=== PATIENT | male | born 1965 | race African-American/Black ===

== ENCOUNTER 2017-02-21 13:34 | Inpatient (IN) | payer MEDICARE, MEDICAID ==
[~2017-02-21 13:34] MED LIST: KETOROLAC TROMETHAMINE 60 MG/2 ML SDV ONE; LIDOCAINE 2% INJ-PF (20 MG/ML) 10 ML AMPUL ONE
[2017-02-21] MEDS ORDERED: NORMAL SALINE 1000 ML 1,000 ML IV ONE (14:17)
--- NOTE | 2017-02-21 14:20 | ER Document Report ---
ED Medical Screen (RME) - General Chief Complaint: Skin Problem Stated Complaint: POSSIBLE ABCESS ON BUTTOCKS Time Seen by Provider: 02/21/17 14:17 Mode of Arrival: Wheelchair Information source: Patient Notes: Patient presents complaining of multiple abscesses that are draining to his groin and leg area. Patient states symptoms started around 2 weeks ago. Patient is diabetic and has a history of hidradenitis. Pt is on a lot of high- dose narcotics patient states that he is currently on for chronic pain TRAVEL OUTSIDE OF THE [place] IN LAST 30 DAYS: No - Related Data Allergies/Adverse Reactions: atropine sulfate [From Lomotil] Allergy (Verified 02/21/17 13:49) diphenoxylate HCl [From Lomotil] Allergy (Verified 02/21/17 13:49) erythromycin base [Erythromycin Base] Allergy (Verified 02/21/17 13:49) paroxetine HCl [From Paxil] Allergy (Verified 02/21/17 13:49) sulfamethoxazole [From Bactrim] Allergy (Verified 02/21/17 13:49) trimethoprim [From Bactrim] Allergy (Verified 02/21/17 13:49) Past Medical History - Past Medical History Cardiac Medical History: Reports: Hx Heart Attack - NOVEMBER 2014, Hx Hypertension Denies: Hx Coronary Artery Disease Pulmonary Medical History: Reports: Hx Asthma, Hx Pneumonia Denies: Hx Bronchitis, Hx COPD Neurological Medical History: Reports: Hx Seizures. Denies: Hx Cerebrovascular Accident Endocrine Medical History: Reports: Hx Diabetes Mellitus Type 2 Renal/ Medical History: Denies: Hx Peritoneal Dialysis GI Medical History: Reports: Hx Crohn's Disease Musculoskeltal Medical History: Reports Hx Arthritis Past Surgical History: Reports: Hx Colostomy - Immunizations Hx Diphtheria, Pertussis, Tetanus Vaccination: Yes Physical Exam - Vital signs Vitals: Temp Pulse Resp BP Pulse Ox 99.3 F 127 H 16 100/69 95 02/21/17 13:45 02/21/17 13:45 02/21/17 13:45 02/21/17 13:45 02/21/17 13:45 - Skin Skin Temperature: Warm Skin Moisture: Moist Skin irregularity: Abscess - Spontaneously draining abscess to left posterior thigh Course - Vital Signs Vital signs: Temp Pulse Resp BP Pulse Ox 99.3 F 127 H 16 100/69 95 02/21/17 13:45 02/21/17 13:45 02/21/17 13:45 02/21/17 13:45 02/21/17 13:45
[2017-02-21 15:52] LABS: ABSOLUTE BASOPHILS # (AUTO) 0.1 10^3/uL (0.0-0.2); ABSOLUTE EOSINOPHILS # (AUTO) 0.1 10^3/uL (0.0-0.6); ABSOLUTE LYMPHOCYTES (AUTO) 2.2 10^3/uL (0.5-4.7); ABSOLUTE MONOCYTES (AUTO) 0.9 10^3/uL (0.1-1.4); ABSOLUTE NEUT (AUTO) 13.7 10^3/uL (1.7-8.2); BASOPHILS % (AUTO) 0.8 % (0-2); EOSINOPHILS % (AUTO) 0.4 % (0-6); HEMATOCRIT 41.9 % (37.9-51.0); HEMOGLOBIN 13.6 g/dL (13.5-17.0); HGB HCT DIFFERENCE -1.1; MEAN CORPUSCULAR HEMOGLOBIN 27.9 pg (27.0-33.4); MEAN CORPUSCULAR HGB CONC 32.4 g/dL (32.0-36.0); MEAN CORPUSCULAR VOLUME 86 fl (80-97); MONOCYTES % (AUTO) 5.5 % (3-13); RED BLOOD COUNT 4.88 10^6/uL (4.35-5.55); RED CELL DISTRIBUTION WIDTH 18.4 % (11.5-14.0); SEGMENTED NEUTROPHILS % (AUTO) 80.3 % (42-78); WHITE BLOOD COUNT 17.1 10^3/uL (4.0-10.5)
[2017-02-21 16:04] LABS: PROTHROMBIN TIME 13.4 SEC (11.4-15.4)
[2017-02-21 16:16] LABS: APPEARANCE,URINE SLIGHTLY-CLOUDY; BILIRUBIN,URINE NEGATIVE (NEGATIVE); GLUCOSE, URINE >=500 mg/dL (NEGATIVE); KETONES,URINE NEGATIVE (NEGATIVE); LEUKOCYTE ESTERASE,URINE NEGATIVE (NEGATIVE); NITRITE,URINE NEGATIVE (NEGATIVE); PROTEIN,URINE 30 mg/dL (NEGATIVE); URINE SPECIFIC GRAVITY 1.027; UROBILINOGEN,URINE NEGATIVE mg/dL (<2.0)
--- NOTE | 2017-02-21 16:22 | ER Document Report ---
ED General - General Chief Complaint: Skin Problem Stated Complaint: POSSIBLE ABCESS ON BUTTOCKS Time Seen by Provider: 02/21/17 14:17 Mode of Arrival: Wheelchair Notes: 51-year-old male with a history of severe hidradenitis of vertebral and chronic pain status post colostomy presents with increasing pain and drainage from his groin. For several days but getting worse now. He is very defeated because he is having issues completing his daily activities as well as attending family functions. No recent antibiotics. None of his abscess is been surgically drained in over 20 years. He denies fever chills. He is a diabetic and takes a hefty dose of chronic narcotics. Per triage his blood sugar was elevated there. TRAVEL OUTSIDE OF THE [place] IN LAST 30 DAYS: No - Related Data Allergies/Adverse Reactions: atropine sulfate [From Lomotil] Allergy (Verified 02/21/17 13:49) diphenoxylate HCl [From Lomotil] Allergy (Verified 02/21/17 13:49) erythromycin base [Erythromycin Base] Allergy (Verified 02/21/17 13:49) paroxetine HCl [From Paxil] Allergy (Verified 02/21/17 13:49) sulfamethoxazole [From Bactrim] Allergy (Verified 02/21/17 13:49) trimethoprim [From Bactrim] Allergy (Verified 02/21/17 13:49) Past Medical History - General Information source: Patient - Social History Smoking Status: Current Every Day Smoker Chew tobacco use (# tins/day): - 8 cigarettes per day Frequency of alcohol use: None Drug Abuse: None Family History: Reviewed & Not Pertinent - Past Medical History Cardiac Medical History: Reports: Hx Heart Attack - NOVEMBER 2014, Hx Hypertension Denies: Hx Coronary Artery Disease Pulmonary Medical History: Reports: Hx Asthma, Hx Pneumonia Denies: Hx Bronchitis, Hx COPD Neurological Medical History: Reports: Hx Seizures. Denies: Hx Cerebrovascular Accident Endocrine Medical History: Reports: Hx Diabetes Mellitus Type 2 Renal/ Medical History: Denies: Hx Peritoneal Dialysis GI Medical History: Reports: Hx Crohn's Disease Musculoskeltal Medical History: Reports Hx Arthritis Past Surgical History: Reports: Hx Colostomy - Immunizations Hx Diphtheria, Pertussis, Tetanus Vaccination: Yes Review of Systems - Review of Systems Notes: REVIEW OF SYSTEMS GEN: Denies fever, chills, weight loss ENT: Denies sore throat, nasal discharge, ear pain EYES: Denies blurry vision, eye pain, discharge CV: Denies chest pain, palpitations, edema RESP: Denies cough, shortness of breath, wheezing GI: Denies abdominal pain, nausea, vomiting, diarrhea MSK: Chronic body pain SKIN: Actively draining skin lesions LYMPH: Denies swollen glands/lymph nodes NEURO: Denies headache, focal weakness or numbness, dizziness PSYCH: Denies depression, suicidal or homicidal ideation PHYSICAL EXAMINATION General: No acute distress, well-nourished Head: Atraumatic, normocephalic ENT: Mouth normal, oropharynx moist, no exudates or tonsillar enlargement Eyes: Conjunctiva normal, pupils equal, lids normal Neck: No JVD, supple, no guarding CVS: Normal rate, regular rhythm, no murmurs Resp: No resp distress, equal and normal breath sounds bilaterally GI: Nondistended, soft, no tenderness to palpation, no rebound or guarding Ext: No deformities, no edema, normal range of motion in upper and lower ext Back: No CVA or midline TTP Skin: No rash, warm Lymphatic: No lymphadeopathy noted Neuro: Awake, slightly somnolent. Slow speech but not slurred. Face symmetric. Physical Exam - Vital signs Vitals: Temp Pulse Resp BP Pulse Ox 99.3 F 127 H 16 100/69 95 02/21/17 13:45 02/21/17 13:45 02/21/17 13:45 02/21/17 13:45 02/21/17 13:45 Course - Re-evaluation Re-evalutation: 02/21/17 16:22 51-year-old male with poorly controlled diabetes and hidradenitis of vertebral presents with increasing drainage of his wounds. He has a slight altered mental status which I presume is due to narcotics however may be due to either hyperglycemia or DKA. We will get a full set of labs. 02/21/17 17:15 Patient was reevaluated approximately 4:50 PM. I examined his perineum at that time as he was not addressed prior to this. He has several draining areas in the perianal region with chelo tenderness and pus. Given his hyperglycemia I am concerned for a necrotizing perineal infection such as a perianal abscess ischio rectal fossa abscess fistula or even worse Citlali's gangrene. At 5:15 PM I was approached by the nurse to say that the patient has a blood pressure of 70. I immediately phoned the surgical list conference services director, Dr. Rolon. He recommended antibiotics and resuscitation with hospitalist admission. I then insisted he come to the emergency department to evaluate this patient because of my concern for infection requiring urgent surgical intervention. He agreed to come see the patient. 02/21/17 18:48 Patient is receiving fluids. Has been seen by the surgical list. - Vital Signs Vital signs: Temp Pulse Resp BP Pulse Ox 99.3 F 127 H 13 101/76 92 02/21/17 13:45 02/21/17 13:45 02/21/17 18:31 02/21/17 18:31 02/21/17 18:31 - Laboratory Result Diagrams: 02/21/17 15:37 02/21/17 16:45 Laboratory results interpreted by me: 02/21/17 02/21/17 02/21/17 15:15 15:27 15:37 WBC 17.1 H RDW 18.4 H Plt Count 720 H Seg Neutrophils % 80.3 H Absolute Neutrophils 13.7 H Sodium Chloride Glucose POC Glucose 547 H* Lactic Acid AST ALT Alkaline Phosphatase Urine Protein 30 H Urine Glucose (UA) >=500 H 02/21/17 02/21/17 16:45 16:45 WBC RDW Plt Count Seg Neutrophils % Absolute Neutrophils Sodium 131.4 L Chloride 91 L Glucose 538 H* POC Glucose Lactic Acid 3.2 H AST 8 L ALT 17 L Alkaline Phosphatase 150 H Urine Protein Urine Glucose (UA) Discharge - Discharge Clinical Impression: Sepsis Qualifiers: Sepsis type: sepsis due to unspecified organism Qualified Code(s): A41.9 - Sepsis, unspecified organism Condition: Critical Disposition: ADMITTED INPATIENT Admitting Provider: Hospitalist Unit Admitted: IMCU Referrals: DELROY CROUCH DO [Primary Care Provider] - Follow up as needed
[2017-02-21 16:59] LABS: VENOUS BLOOD BASE EXCESS 3.8 mmol/L; VENOUS BLOOD HCO3 29.9 mmol/L (20-32); VENOUS BLOOD PCO2 50.7 mmHg (35-63); VENOUS BLOOD PH 7.39 (7.30-7.42)
[2017-02-21 17:15] LABS: ALANINE AMINOTRANSFERASE 17 U/L (21-72); ALBUMIN 3.6 g/dL (3.5-5.0); ALKALINE PHOSPHATASE 150 U/L (38-126); ANION GAP 14 (5-19); ASPARTATE AMINO TRANSFERASE 8 U/L (17-59); BILIRUBIN,DIRECT 0.4 mg/dL (0.0-0.4); BILIRUBIN,TOTAL 0.4 mg/dL (0.2-1.3); BLOOD UREA NITROGEN 12 mg/dL (7-20); CALCIUM 9.7 mg/dL (8.4-10.2); CARBON DIOXIDE 26 mmol/L (22-30); CHLORIDE 91 mmol/L (98-107); CREATININE RESULT 0.87 mg/dL (0.52-1.25); POTASSIUM 4.1 mmol/L (3.6-5.0); SODIUM 131.4 mmol/L (137-145); TOTAL PROTEIN 7.3 g/dL (6.3-8.2)
[2017-02-21] MEDS ORDERED: VANCOMYCIN HCL INJ 1000 MG VIAL IV ONE (17:23)
[2017-02-21] MEDS ORDERED: PIPERACILLIN/TAZOBACTAM 3.375 GM VIAL IV ONE (17:23)
[2017-02-21 17:28] LABS: GLUCOSE 538 mg/dL (75-110)
[2017-02-21] MEDS ORDERED: LIDOCAINE 2% URO-JET 5 ML KIT MM ONE (17:44)
[2017-02-21] MEDS ORDERED: ONDANSETRON HCL INJ/PF 4 MG/2 ML SDV IV PRN (17:59)
[2017-02-21] MEDS ORDERED: VANCOMYCIN HCL 0 MG in DEXTROSE 5%-WATER 250 ML IV NR (18:00)
[2017-02-21] MEDS ORDERED: GLUCAGON,HUMAN RECOMB 1 MG INJ IM PRN (18:03)
[2017-02-21] MEDS ORDERED: NORMAL SALINE 100 ML with INSULIN REGULAR, HUMAN 100 UNIT IV PRN ×2 (18:03)
[2017-02-21] MEDS ORDERED: DEXTROSE 40% GEL 15 GM TUBE PO PRN ×2 (18:03)
[2017-02-21] MEDS ORDERED: DEXTROSE 50%-WATER 25 GM/50 ML DISP.SYRIN IV PRN ×2 (18:03)
[2017-02-21] MEDS ORDERED: NORMAL SALINE 1000 ML 1,000 ML IV PRN (18:04)
--- NOTE | 2017-02-21 18:54 | PDOC H&P ---
History of Present Illness Admission Date/PCP: DELROY CROUCH DO Patient complains of: Pelvic pain History of Present Illness: TIA VILLANUEVA is a 51 year old male with past medical history of Crohn's disease and hidradenitis presents with pelvic pain and feeling generally unwell for approximately 1 month. 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 In 2014 he had a diverting colostomy in order to protect the peroneal region. Past Medical History Cardiac Medical History: Reports: Myocardial Infarction - NOVEMBER 2014, Hypertension Denies: Coronary Artery Disease Pulmonary Medical History: Reports: Asthma, Pneumonia Denies: Bronchitis, Chronic Obstructive Pulmonary Disease (COPD) Neurological Medical History: Reports: Seizures Endocrine Medical History: Reports: Diabetes Mellitus Type 2 GI Medical History: Reports: Crohn's Disease Musculoskeltal Medical History: Reports: Arthritis Hematology: Reports: Anemia Past Surgical History Past Surgical History: Reports: Colostomy Social History Information Source: Patient Smoking Status: Current Every Day Smoker Frequency of Alcohol Use: None Hx Recreational Drug Use: No Hx Prescription Drug Abuse: No - Advance Directive Resuscitation Status: Full Code Family History Family History: Other - Crohn's-sister Parental Family History Reviewed: Yes Children Family History Reviewed: Yes Sibling(s) Family History Reviewed.: Yes Medication/Allergy Home Medications: Cephalexin [Cephalexin 500 MG Capsule] 1 cap PO TID 07/08/15 Diazepam [Valium] 10 mg PO TIDP PRN 07/08/15 Duloxetine HCl [Cymbalta] 60 mg PO DAILY 07/08/15 Furosemide [Lasix 20 mg Tablet] 20 mg PO QAM 07/08/15 Insulin Aspart [Novolog Flexpen] 25 unit SUBCUT BID 07/08/15 Lisinopril 5 mg PO DAILY 07/08/15 Metformin HCl [Glucophage] 1,000 mg PO BID 07/08/15 Metoprolol Tartrate [Lopressor 25 mg Tablet] 25 mg PO Q12 07/08/15 Morphine Sulfate [Morphine Sulfate ER] 100 mg PO TID #30 tablet.er 07/08/15 Morphine Sulfate [Ms-Contin Sr 100 mg Tablet] 100 mg PO TID 07/08/15 Ondansetron HCl [Zofran 8 mg Tablet] 8 mg PO Q8HP PRN 07/08/15 Prednisone 20 mg PO BID 07/08/15 Morphine Sulfate [Morphine Sulfate ER] 100 mg PO TID PRN #9 tablet.er 02/03/16 Oxycodone HCl [Oxycodone HCl 10 MG Tablet] 1 - 2 tab PO Q6H PRN #25 tablet 02/02 Diazepam [Valium] 5 mg PO TID 04/27/16 Penicillin V Potassium [Penicillin Vk 500 mg Tablet] 500 mg PO TID 04/27/16 Hydrocodone/Acetaminophen [[place] 10-325 Tablet] 1 each PO Q6 #8 tablet 05/30/16 Allergies/Adverse Reactions: atropine sulfate [From Lomotil] Allergy (Verified 02/21/17 13:49) diphenoxylate HCl [From Lomotil] Allergy (Verified 02/21/17 13:49) erythromycin base [Erythromycin Base] Allergy (Verified 02/21/17 13:49) paroxetine HCl [From Paxil] Allergy (Verified 02/21/17 13:49) sulfamethoxazole [From Bactrim] Allergy (Verified 02/21/17 13:49) trimethoprim [From Bactrim] Allergy (Verified 02/21/17 13:49) Review of Systems Constitutional: PRESENT: chills, fatigue, fever(s), weakness. ABSENT: headache( s), weight gain, weight loss Eyes: ABSENT: visual disturbances Ears: ABSENT: hearing changes Cardiovascular: ABSENT: chest pain, dyspnea on exertion, edema, orthropnea, palpitations Respiratory: ABSENT: cough, hemoptysis Gastrointestinal: ABSENT: abdominal pain, constipation, diarrhea, hematemesis, hematochezia, nausea, vomiting Genitourinary: ABSENT: dysuria, hematuria Musculoskeletal: ABSENT: joint swelling Integumentary: PRESENT: erythema, lesions, wounds, other - Drainage from perineal wounds. ABSENT: rash Neurological: ABSENT: abnormal gait, abnormal speech, confusion, dizziness, focal weakness, syncope Psychiatric: ABSENT: anxiety, depression, homidical ideation, suicidal ideation Endocrine: ABSENT: cold intolerance, heat intolerance, polydipsia, polyuria Hematologic/Lymphatic: ABSENT: easy bleeding, easy bruising Physical Exam Vital Signs: Temp Pulse Resp BP Pulse Ox 99.3 F 127 H 13 101/76 92 02/21/17 13:45 02/21/17 13:45 02/21/17 18:31 02/21/17 18:31 02/21/17 18:31 Intake & Output 02/20/17 02/21/17 02/22/17 06:59 06:59 06:59 Weight 60.781 kg PHYSICAL EXAM: GENERAL: Appears well, no acute distress, underweight HEENT: Normocephalic, no scleral icterus, conjunctiva clear, EOEM intact, PERRLA , moist mucous membranes NECK: trachea midline, no thyromegally RESPIRATORY: Clear to auscultation, no wheezes/rhonchi CARDIAC: Regular rate and rhythm, no murmur/chelsey/rub ABDOMEN: Soft, no distension, no tenderness, no guarding, normal bowel sounds, negative Lopez sign RECTAL: deferred : deferred EXTREMITIES: No edema, cyanosis, clubbing MUSCULOSKELETAL: No joint swelling or deformity VASCULAR: normal peripheral pulses NEUROLOGIC: Alert, oriented to person/place/time, normal speech, cranial nerves grossly intact, 5/5 strength in all extremities, tactile sensation intact in all extremities SKIN: Numerous peritoneal ulcerations (possible fistulous) with purulent drainage and surrounding erythema PSYCHIATRIC: Normal mood, normal affect Results Laboratory Results: 02/21/17 15:37 02/21/17 16:45 02/21/17 02/21/17 02/21/17 15:15 15:37 15:37 WBC 17.1 H RBC 4.88 Hgb 13.6 Hct 41.9 MCV 86 MCH 27.9 MCHC 32.4 RDW 18.4 H Plt Count 720 H Seg Neutrophils % 80.3 H Lymphocytes % 13.0 Monocytes % 5.5 Eosinophils % 0.4 Basophils % 0.8 Absolute Neutrophils 13.7 H Absolute Lymphocytes 2.2 Absolute Monocytes 0.9 Absolute Eosinophils 0.1 Absolute Basophils 0.1 VBG pH VBG pCO2 VBG HCO3 VBG Base Excess Sodium Cancelled Potassium Cancelled Chloride Cancelled Carbon Dioxide Cancelled Anion Gap Cancelled BUN Cancelled Creatinine Cancelled Est GFR ( Amer) Cancelled Est GFR (Non-Af Amer) Cancelled Glucose Cancelled Lactic Acid Calcium Cancelled Total Bilirubin Cancelled AST Cancelled ALT Cancelled Alkaline Phosphatase Cancelled Total Protein Cancelled Albumin Cancelled Urine Color YELLOW Urine Appearance SLIGHTLY-CLOUDY Urine pH 6.0 Ur Specific [place] 1.027 Urine Protein 30 H Urine Glucose (UA) >=500 H Urine Ketones NEGATIVE Urine Blood NEGATIVE Urine Nitrite NEGATIVE Ur Leukocyte Esterase NEGATIVE Urine WBC (Auto) 3 Urine RBC (Auto) 1 02/21/17 02/21/17 02/21/17 15:37 16:45 16:45 WBC RBC Hgb Hct MCV MCH MCHC RDW Plt Count Seg Neutrophils % Lymphocytes % Monocytes % Eosinophils % Basophils % Absolute Neutrophils Absolute Lymphocytes Absolute Monocytes Absolute Eosinophils Absolute Basophils VBG pH 7.39 VBG pCO2 50.7 VBG HCO3 29.9 VBG Base Excess 3.8 Sodium 131.4 L Potassium 4.1 Chloride 91 L Carbon Dioxide 26 Anion Gap 14 BUN 12 Creatinine 0.87 Est GFR ( Amer) > 60 Est GFR (Non-Af Amer) > 60 Glucose 538 H* Lactic Acid Cancelled Calcium 9.7 Total Bilirubin 0.4 AST 8 L ALT 17 L Alkaline Phosphatase 150 H Total Protein 7.3 Albumin 3.6 Urine Color Urine Appearance Urine pH Ur Specific [place] Urine Protein Urine Glucose (UA) Urine Ketones Urine Blood Urine Nitrite Ur Leukocyte Esterase Urine WBC (Auto) Urine RBC (Auto) 02/21/17 16:45 WBC RBC Hgb Hct MCV MCH MCHC RDW Plt Count Seg Neutrophils % Lymphocytes % Monocytes % Eosinophils % Basophils % Absolute Neutrophils Absolute Lymphocytes Absolute Monocytes Absolute Eosinophils Absolute Basophils VBG pH VBG pCO2 VBG HCO3 VBG Base Excess Sodium Potassium Chloride Carbon Dioxide Anion Gap BUN Creatinine Est GFR ( Amer) Est GFR (Non-Af Amer) Glucose Lactic Acid 3.2 H Calcium Total Bilirubin AST ALT Alkaline Phosphatase Total Protein Albumin Urine Color Urine Appearance Urine pH Ur Specific [place] Urine Protein Urine Glucose (UA) Urine Ketones Urine Blood Urine Nitrite Ur Leukocyte Esterase Urine WBC (Auto) Urine RBC (Auto) Assessment & Plan - Diagnosis (1) Sepsis Qualifiers: Sepsis type: sepsis due to unspecified organism Qualified Code(s): A41.9 - Sepsis, unspecified organism Is this a current diagnosis for this admission?: YesPlan: Secondary to cellulitis of the perineum. Continue IV Zosyn and IV vancomycin initiated in the emergency department. Repeat lactic acid level. Aggressive IV fluids. Blood cultures. (2) Abscess or cellulitis of perineum Is this a current diagnosis for this admission?: YesPlan: Continue IV Zosyn and IV vancomycin. CT scan of the abdomen and pelvis. Consult Dr. Rolon of surgery. It is unclear to me if peritoneal complications are secondary to hidradenitis or Crohn's disease. Patient has had prior diverting colostomy in 2015 as a result of recurrent perineal disease. (3) Crohns disease Is this a current diagnosis for this admission?: YesPlan: Patient has chronic prednisone dependent. Given current septic picture I will start him on Solu-Cortef 50 mg IV every 8 hours. He would benefit from GI follow-up as an outpatient. (4) Diabetes mellitus Qualifiers: Diabetes mellitus type: type 2 Is this a current diagnosis for this admission?: YesPlan: Patient states that he only takes metformin for this. Check hemoglobin A1c. Start insulin drip for now secondary to profound hyperglycemia. (5) Weight loss Is this a current diagnosis for this admission?: YesPlan: Check CT scan of abdomen and pelvis. Check HIV screen. Likely secondary to Crohn's disease. (6) Hidradenitis Is this a current diagnosis for this admission?: Yes (7) Tobacco abuse Is this a current diagnosis for this admission?: Yes - Time Time Spent: Greater than 70 Minutes Anticipated discharge: Home
[2017-02-21] MEDS ORDERED: ENOXAPARIN SODIUM INJ 40 MG/0.4 ML DISP.SYRIN SUBCUT ONE (19:00)
--- NOTE | 2017-02-21 19:12 | EKG REPORT ---
SEVERITY:- ABNORMAL ECG - SINUS TACHYCARDIA PROBABLE LEFT ATRIAL ABNORMALITY ABNRM R PROG, CONSIDER ASMI OR LEAD PLACEMENT BORDERLINE T ABNORMALITIES, ANTERIOR LEADS : Confirmed by: Librado Sampson MD 21-Feb-2017 19:11:42
--- NOTE | 2017-02-21 19:18 | RADIOLOGY REPORT (SQ) ---
EXAM DESCRIPTION: CT PELVIS WITH COMPLETED DATE/TIME: 02/21/2017 6:59 pm REASON FOR STUDY: mult abscesses perianal COMPARISON: None. TECHNIQUE: CT scan of the pelvis performed with intravenous or oral contrast. Images reviewed with soft tissue and bone windows. Reconstructed coronal and sagittal MPR images reviewed. All images st ored on PACS. All CT scanners at this facility use dose modulation, iterative reconstruction, and/or weight based d osing when appropriate to reduce radiation dose to as low as reasonably achievable (ALARA). [facility]: Dose Right [facility]: CareDose [facility]: Dose Right [facility]: Teradose 4D [facility]: Smart Thumbtack RADIATION DOSE: Up-to-date CT equipment and radiation dose reduction techniques were employed. CTDIv ol: 4.8 - 5.5 mGy. DLP: 434 mGy-cm. mGy. LIMITATIONS: None. FINDINGS: PELVIC BONES: No acute fracture. No worrisome bone lesions. VISUALIZED SPINE: No acute findings. HIP(S): No acute fracture or dislocation. No worrisome bone lesions. There is no evidence for bony i nvolvement by osteomyelitis PELVIC SOFT TISSUES: No significant findings. EXTRAPELVIC SOFT TISSUES: There are fairly extensive soft tissue changes involving the subcutaneous f at and adjacent soft tissues in the perianal region extending into the gluteal region on the left pos teriorly. There is associated subcutaneous air. There are couple small associated fluid collections. The appearance is consistent with the clinical history of multiple perianal abscesses. OTHER: Landry catheter is identified in the bladder. IMPRESSION: Findings consistent with the clinical history of multiple perianal abscesses as noted ab ove. TECHNICAL DOCUMENTATION: JOB ID: [id number] Quality ID # [id number]: Final reports with documentation of one or more dose reduction techniques (e.g., Au tomated exposure control, adjustment of the mA and/or kV according to patient size, use of iterative reconstruction technique) 2010 [employer]- All Rights Reserved
[2017-02-21] MEDS ORDERED: HYDROCORTISONE SOD SUCCINATE INJ/PF 100 MG/2 ML SDV IV ONE (20:00)
[2017-02-21 20:15] LABS: ADD HIVPANEL? NO; HIV (1 AND 2) ANTIBODY NEGATIVE (NEGATIVE)
[2017-02-21 22:04] LABS: ANION GAP 9 (5-19); BLOOD UREA NITROGEN 10 mg/dL (7-20); CALCIUM 8.7 mg/dL (8.4-10.2); CARBON DIOXIDE 28 mmol/L (22-30); CHLORIDE 98 mmol/L (98-107); CREATININE RESULT 0.62 mg/dL (0.52-1.25); GLUCOSE 345 mg/dL (75-110); POTASSIUM 4.2 mmol/L (3.6-5.0); SODIUM 135.1 mmol/L (137-145)
[2017-02-21] MEDS: GABAPENTIN 300 MG CAPSULE PO SCH (22:59)
[2017-02-21] MEDS: PIPERACILLIN SODIUM/TAZOBACTAM 3.375 GM in NORMAL SALINE 100 ML IV SCH (23:50)
[2017-02-22] MEDS: HYDROCORTISONE SOD SUCCINATE INJ/PF 100 MG/2 ML SDV IV SCH ×3 (02:02→20:09)
[2017-02-22 02:10] LABS: ANION GAP 9 (5-19); BLOOD UREA NITROGEN 8 mg/dL (7-20); CALCIUM 8.9 mg/dL (8.4-10.2); CARBON DIOXIDE 27 mmol/L (22-30); CHLORIDE 102 mmol/L (98-107); CREATININE RESULT 0.58 mg/dL (0.52-1.25); GLUCOSE 262 mg/dL (75-110); POTASSIUM 4.3 mmol/L (3.6-5.0); SODIUM 138.4 mmol/L (137-145)
[2017-02-22] MEDS: DEXTROSE 5%-NORMAL SALINE 1,000 ML IV PRN ×2 (02:44→10:25)
[2017-02-22] MEDS: HYDROMORPHONE HCL INJ/PF 2 MG/ML AMPULE IV PRN ×2 (03:41→07:43)
[2017-02-22] MEDS ORDERED: GLUCAGON,HUMAN RECOMB 1 MG INJ SUBCUT PRN (04:10)
[2017-02-22] MEDS ORDERED: DEXTROSE 40% GEL 15 GM TUBE PO PRN ×2 (04:10)
[2017-02-22] MEDS ORDERED: DEXTROSE 50%-WATER 25 GM/50 ML DISP.SYRIN IV PRN ×2 (04:10)
--- NOTE | 2017-02-22 04:37 | CONSULTATION REPORT E ---
Consultation Report NAME: TIA VILLANUEVA : 1965 AGE: 51Y DATE: 02/22/2017 322 A TO: WALDEMAR ROLON M.D. FROM: BRANDEN UGALDE M.D. Requesting Physician The patient was seen at the request of the emergency department, Du Denise MD. The patient was previously seen by Dr. Rolon on the afternoon of 02/21/2017. 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 He was seen in the emergency department where he was found to be hypotensive. He was resuscitated in the emergency department and had a CT scan of the abdomen and pelvis which showed findings consistent with abscesses involving his left lower buttock and posterior thigh. Surgery was consulted. PAST MEDICAL AND PAST SURGICAL HISTORY: Can be found in his history and physical document. PHYSICAL EXAMINATION: VITAL SIGNS: When the patient was seen in the afternoon of 02/21/2017, blood pressure systolic around 90. GENERAL: The patient was in significant pain. He was difficult to communicate with. ABDOMEN: The exam focused on the abdomen. There was a diverting descending colostomy. The abdomen was soft without peritoneal signs. GENITOURINARY: The penis and lower pelvic area anteriorly are grossly unremarkable, but the posterior scrotal area and perineum are significantly inflamed, indurated with convolutions particularly involving the left perineal area. There is active drainage. The area involved covers a large amount of skin surface. LABORATORY PROFILE: White blood cell count 17,000, hemoglobin 13.6. Electrolytes, blood sugar of 262. The CT scan of the abdomen and pelvis does show some air collections in the subcutaneous tissues involving the left buttock and perineal area. IMPRESSION: 1. Acute superimposed on chronic infection involving perineal hidradenitis in a 51-year-old male with diverting colostomy. 2. Sepsis with septic shock. 3. Steroid-dependent Crohn disease. 4. Diabetes mellitus. RECOMMENDATIONS: The patient will be admitted to the medicine service, and undergo continued fluid and antibiotic resuscitation. Wounds will be reassessed and need for drainage reviewed as well with the team. DICTATING PHYSICIAN: WALDEMAR ROLON M.D. [id number] PHY#: [id number] ID: [id number] JOB#: [id number] ACCT: [id number] cc:WALDEMAR ROLON M.D. >
[2017-02-22] MEDS: PIPERACILLIN SODIUM/TAZOBACTAM 3.375 GM in NORMAL SALINE 100 ML IV SCH ×3 (05:00→20:08)
[2017-02-22] MEDS ORDERED: VANCOMYCIN HCL 1,000 MG in DEXTROSE 5%-WATER 250 ML IV SCH (06:00)
[2017-02-22 06:03] LABS: ABSOLUTE BASOPHILS # (AUTO) 0.1 10^3/uL (0.0-0.2); ABSOLUTE LYMPHOCYTES (AUTO) 1.6 10^3/uL (0.5-4.7); ABSOLUTE MONOCYTES (AUTO) 0.6 10^3/uL (0.1-1.4); ABSOLUTE NEUT (AUTO) 14.3 10^3/uL (1.7-8.2); BASOPHILS % (AUTO) 0.6 % (0-2); EOSINOPHILS % (AUTO) 0.1 % (0-6); HEMATOCRIT 32.6 % (37.9-51.0); HGB HCT DIFFERENCE -1.1; LYMPHOCYTES % (AUTO) 9.4 % (13-45); MEAN CORPUSCULAR HEMOGLOBIN 27.4 pg (27.0-33.4); MEAN CORPUSCULAR HGB CONC 32.3 g/dL (32.0-36.0); MEAN CORPUSCULAR VOLUME 85 fl (80-97); MONOCYTES % (AUTO) 3.5 % (3-13); RED BLOOD COUNT 3.83 10^6/uL (4.35-5.55); RED CELL DISTRIBUTION WIDTH 17.9 % (11.5-14.0); SEGMENTED NEUTROPHILS % (AUTO) 86.4 % (42-78); WHITE BLOOD COUNT 16.6 10^3/uL (4.0-10.5)
[2017-02-22 06:17] LABS: HEMOGLOBIN 10.5 g/dL (13.5-17.0)
[2017-02-22 06:21] LABS: ANION GAP 9 (5-19); BLOOD UREA NITROGEN 8 mg/dL (7-20); CALCIUM 8.5 mg/dL (8.4-10.2); CARBON DIOXIDE 25 mmol/L (22-30); CHLORIDE 104 mmol/L (98-107); CREATININE RESULT 0.53 mg/dL (0.52-1.25); GLUCOSE 216 mg/dL (75-110); POTASSIUM 4.2 mmol/L (3.6-5.0)
[2017-02-22] MEDS ORDERED: ENOXAPARIN SODIUM INJ 40 MG/0.4 ML DISP.SYRIN SUBCUT SCH (10:00)
[2017-02-22] MEDS: GABAPENTIN 300 MG CAPSULE PO SCH ×2 (10:24→22:28)
[2017-02-22] MEDS: POTASSI CL 20 MEQ/NS 1L 1,000 ML IV PRN ×2 (12:26→22:36)
[2017-02-22 12:41] LABS: ANION GAP 8 (5-19); BLOOD UREA NITROGEN 5 mg/dL (7-20); CALCIUM 8.6 mg/dL (8.4-10.2); CARBON DIOXIDE 26 mmol/L (22-30); CHLORIDE 108 mmol/L (98-107); CREATININE RESULT 0.45 mg/dL (0.52-1.25); GLUCOSE 109 mg/dL (75-110); POTASSIUM 3.6 mmol/L (3.6-5.0); SODIUM 142.1 mmol/L (137-145)
[2017-02-22] MEDS: VANCOMYCIN HCL 1,000 MG in DEXTROSE 5%-WATER 250 ML IV SCH ×2 (14:04→22:28)
[2017-02-22] MEDS ORDERED: LIDOCAINE 0.5% INJ-PF (5 MG/ML) 50 ML SDV ONE (14:04)
--- NOTE | 2017-02-22 14:12 | CONSULTATION REPORT E ---
Consultation Report NAME: TIA VILLANUEVA : 1965 AGE: 51Y DATE: 02/21/2017 322 A TO: WALDEMAR FLORES M.D. FROM: BRANDEN UGALDE M.D. Requesting Physician The patient is seen in consultation with Dr. Du Denise in the emergency department. CHIEF COMPLAINT: Groin infection. REPORT OF CONSULTATION: The patient is a 51-year-old -[place] male, originally from [place], [place], here since 2016, status post diverting colostomy for unclear reasons exactly, with chronic pain syndrome, chronic perineal hydradenitis, and Crohn's disease. He has been seen by Dr. Potter in the past. The patient is currently not on any immunosuppressive therapy. He is here in the emergency department by himself. He is difficult to understand because he is in pain and has been in and out of septic shock. He is seen in the emergency department where he was found to be hyperglycemic with blood sugar of 338, lactate level 3.2. He is being set up for a CT scan of the abdomen and pelvis, but this was curtailed because of hypotension. PAST MEDICAL HISTORY: Past medical and surgical history is difficult to ascertain. It includes: 1. Gastritis. 2. Diabetes mellitus. 3. Crohn's disease. 4. Chronic pain syndrome. 5. Lower extremity arthritis. 6. History of seizure disorder. 7. Pneumonia. 8. Hypertension. 9. Heart attack. PAST SURGICAL HISTORY: Significant for: Diverting colostomy and multiple drainage procedures on his perineum, details unclear. ALLERGIES: Multiple and include: 1. LOMOTIL. 2. ERYTHROMYCIN. 3. PAXIL. 4. SULFA. REVIEW OF SYSTEMS: Cannot be obtained reliably because patient is in and out of a cooperative state; he is in chronic pain. PHYSICAL EXAMINATION: VITAL SIGNS: Heart rate 90. Blood pressure 108/83 after 2 liters of saline. HEAD: The patient is gazing upward, then with eyes closed. He responds to most commands appropriately. OROPHARYNX: Poor dentition. NECK: Taped right IJ region at site of previous phlebotomy. LUNGS: Rhonchi bilaterally. ABDOMEN: The abdomen has multiple scars consistent with midline surgery. There appears to be a left-sided diverting colostomy. EXTERNAL GENITALIA: Perineum examined. Penis appears unremarkable. There are multiple convolutions, mostly chronic with weeping purulent discharge. Intervening areas of intact skin appear red and edematous. SKIN: The patient rolled on his right lateral decubitus. Again, multiple undulated crevices consistent with chronic areas of hydradenitis with scarring. There is no proximal/distal progression. All changes appear change with some acute exacerbation. EXTREMITIES: Remainder of the exam is unremarkable except for the legs which show diabetic skin changes. DIAGNOSTIC DATA: Laboratory profile shows white blood cell count 17,000, hemoglobin of 13.6. Electrolytes: BUN and creatinine normal, blood sugar of 135, lactate 3.2, alkaline phosphatase 150. IMPRESSION: 1. Septic shock due to perineal sepsis with uncontrolled septic source. 2. Chronic perineal hydradenitis. 3. History of Crohn's disease with diverting colostomy. 4. Chronic pain syndrome. 5. Diabetic diabetes mellitus with acute hyperglycemic response due to infection. RECOMMENDATIONS: 1. The patient needs to be admitted to the Acute Internal Medicine Service, receive fluid hydration, intravenous antibiotics. 2. There is no immediate indication for operative debridement given the patient's metabolic and hemodynamic instability; imaging of the abdomen and pelvis has been ordered which may be useful; however, I think the most appropriate management strategy for his perineum is local washout with antimicrobial scrub brushes once the patient's pain is better managed. The patient may come to require operative debridement; suggest allowing intravenous antibiotics to take their effect first. DICTATING PHYSICIAN: WALDEMAR FLORES M.D. [id number] PHY#: [id number] ID: [id number] JOB#: [id number] ACCT: [id number] cc:WALDEMAR FLORES M.D. > [facility] HOSPITALRichie
[2017-02-22] MEDS ORDERED: DEXTROSE 50%-WATER 25 GM/50 ML DISP.SYRIN IV ONE (15:08)
[2017-02-22] MEDS ORDERED: EPHEDRINE SULFATE INJ 50 MG/1 ML AMPULE ONE (15:31)
[2017-02-22] MEDS ORDERED: MIDAZOLAM 2 MG/2 ML INJ ONE (15:31)
[2017-02-22] MEDS ORDERED: FENTANYL CITRATE INJ/PF 250 MCG/5 ML AMPULE ONE (15:31)
[2017-02-22] MEDS ORDERED: PROPOFOL INJ 200 MG/20 ML VIAL IV ONE ×2 (15:32→17:10)
[2017-02-22] MEDS ORDERED: DEXMEDETOMIDINE INJ 80 MCG/20 ML VIAL IV ONE (15:32)
[2017-02-22] MEDS ORDERED: ONDANSETRON HCL INJ/PF 4 MG/2 ML SDV IV PRN ×2 (17:05→18:24)
[2017-02-22] MEDS ORDERED: DIPHENHYDRAMINE HCL 50 MG/ML VIAL IV PRN (17:05)
[2017-02-22] MEDS ORDERED: FENTANYL CITRATE INJ/PF 100 MCG/2 ML AMPUL IV PRN ×3 (17:05)
[2017-02-22] MEDS ORDERED: MORPHINE SULFATE 10 MG/ML INJ IV PRN (17:05)
[2017-02-22] MEDS ORDERED: PROMETHAZINE HCL INJ 25 MG/1 ML VIAL IV PRN ×2 (17:05)
[2017-02-22] MEDS ORDERED: MEPERIDINE HCL/PF INJ 25 MG/1 ML DISP.SYRIN IV PRN (17:05)
[2017-02-22] MEDS ORDERED: ACETAMINOPHEN 100 ML IV ONE (17:10)
--- NOTE | 2017-02-22 17:11 | PDOC PROGRESS REPORT ---
Subjective Progress Note for:: 02/22/17 Subjective:: Patient was seen at the bedside and was not very talkative. He had pain medication given and was pretty sleepy. He opens his eyes for me twice but drifted right back off to sleep. I discussed this with his nurse apparently plans are in place for the patient to undergo I&D of his abscesses later on today. Physical Exam Vital Signs: Temp Pulse Resp BP Pulse Ox 97.5 F 55 L 19 110/67 95 02/22/17 12:19 02/22/17 12:19 02/22/17 12:19 02/22/17 12:19 02/22/17 12:19 Intake & Output 02/21/17 02/22/17 02/23/17 06:59 06:59 06:59 Intake Total 2178 575 Output Total 475 Balance 1703 575 Weight 67.9 kg GENERAL: This is a well-developed, well-nourished appearing male resting in bed currently in no acute distress and quite sleepy. HEART: Regular rate and rhythm. No murmurs, rubs or gallops. LUNGS: Clear to auscultation bilaterally with equal rise and fall of the chest. ABDOMEN: Soft, nontender, nondistended with normoactive bowel sounds : Landry catheter is in place and draining jm colored urine. Unfortunately I am not able to examine the anal or perineal area secondary to lack of cooperation with turning. The base of his scrotum does appear slightly red. EXTREMETIES: No clubbing, cyanosis or edema. 2+ peripheral pulses bilaterally. NEURO: The patient is quite somnolent at the moment. Is difficult to get him to keep his eyes open. Full neurologic assessment cannot be obtained. Results Laboratory Results: 02/22/17 05:40 02/22/17 11:48 02/21/17 02/21/17 02/22/17 21:25 21:25 01:38 WBC RBC Hgb Hct MCV MCH MCHC RDW Plt Count Seg Neutrophils % Lymphocytes % Monocytes % Eosinophils % Basophils % Absolute Neutrophils Absolute Lymphocytes Absolute Monocytes Absolute Eosinophils Absolute Basophils Sodium 135.1 L 138.4 Potassium 4.2 4.3 Chloride 98 102 Carbon Dioxide 28 27 Anion Gap 9 9 BUN 10 8 Creatinine 0.62 0.58 Est GFR ( Amer) > 60 > 60 Est GFR (Non-Af Amer) > 60 > 60 Glucose 345 H 262 H Lactic Acid 2.2 H Calcium 8.7 8.9 02/22/17 02/22/17 02/22/17 05:40 05:40 11:48 WBC 16.6 H RBC 3.83 L Hgb 10.5 L D Hct 32.6 L MCV 85 MCH 27.4 MCHC 32.3 RDW 17.9 H Plt Count 605 H Seg Neutrophils % 86.4 H Lymphocytes % 9.4 L Monocytes % 3.5 Eosinophils % 0.1 Basophils % 0.6 Absolute Neutrophils 14.3 H Absolute Lymphocytes 1.6 Absolute Monocytes 0.6 Absolute Eosinophils 0.0 Absolute Basophils 0.1 Sodium 138.0 142.1 Potassium 4.2 3.6 Chloride 104 108 H Carbon Dioxide 25 26 Anion Gap 9 8 BUN 8 5 L Creatinine 0.53 0.45 L Est GFR ( Amer) > 60 > 60 Est GFR (Non-Af Amer) > 60 > 60 Glucose 216 H 109 Lactic Acid Calcium 8.5 8.6 Impressions: Pelvis CT 02/21/17 16:43 IMPRESSION: Findings consistent with the clinical history of multiple perianal abscesses as noted above. Assessment & Plan - Diagnosis (1) Sepsis Qualifiers: Sepsis type: sepsis due to unspecified organism Qualified Code(s): A41.9 - Sepsis, unspecified organism Is this a current diagnosis for this admission?: YesPlan: Sepsis secondary to peritoneal abscess. Continue current antibiotics of vancomycin, Zosyn, Levaquin. Incision and drainage will likely be accomplished later today. Continue to monitor white blood cell count. (2) Abscess or cellulitis of perineum Is this a current diagnosis for this admission?: YesPlan: Continue current antibiotics. The patient may be going for Iand D later on today. Surgical service has seen him apparently. (3) Crohns disease Is this a current diagnosis for this admission?: YesPlan: Continue steroids. (4) Diabetes mellitus Qualifiers: Diabetes mellitus type: type 2 Is this a current diagnosis for this admission?: YesPlan: Patient was placed on an insulin Drip for elevated blood sugars on admission. According to the nurse, blood sugars dropped. I cannot find that documentation anywhere. Nevertheless at 2 AM in the morning, he was then placed on dextrose solution. The patient currently has both D5 water as well as an insulin drip running. I am going to discontinue both, Start him on normal saline and discontinue the insulin drip. We will check blood sugars every 4 hours. If this is stable we can back of to q6 (5) Hidradenitis Is this a current diagnosis for this admission?: YesPlan: This a complication of the patient's Crohn's disease. He will proceed to the OR for I&D. Management as above. - Time Time Spent with patient: 15-24 minutes - Inpatient Certification Based on my medical assessment, after consideration of the patient's comorbidities, presenting symptoms, or acuity I expect that the services needed warrant INPATIENT care.: Yes Medical Necessity: Need for IV Antibiotics, Need for Surgery
--- NOTE | 2017-02-22 18:22 | OPERATIVE REPORT E ---
Operative Report NAME: TIA VILLANUEVA : 1965 AGE: 51Y DATE OF SURGERY: 02/22/2017 ROOM: 322 PREOPERATIVE DIAGNOSIS: Multiple abscesses of the perineum and left posterior thigh. POSTOPERATIVE DIAGNOSIS: Multiple abscesses of the perineum and left posterior thigh. Findings: Multiple incision and drainage of at least 4 separate abscesses of the perineum and left posterior thigh. The left posterior thigh has at least a 10 cm abscess. The left mid perineum has about a 5 cm abscess, and just below it another 4 cm abscess. The right perineal area just below the right scrotum has about a 6 cm abscess. SURGEON: RAIZA KIMBLE M.D. ANESTHESIA: Spinal. DESCRIPTION OF PROCEDURE: After adequate general anesthesia, the patient was placed in the lithotomy position and the perineal area and the left posterior thigh region were prepped and draped in the usual sterile fashion. There was a bulging area on the right perineum just below the right scrotum and this was incised and a lot of purulent material extruded out. The incision enlarged about 2 cm and afterwards able to do finger palpation towards the lateral part of the scrotum and a big cavity, at least 6 cm in diameter was noted. Cultures were obtained. Next, another abscess cavity on the left side this time and again there was some purulent material coming out through an opening through hydradenitis. The patient has multiple hydradenitis of this area and has had multiple I and D's in the past. An incision was made and the area was then further bluntly explored with a hemostat, further going proximally. About a 4 cm area of abscess was noted and this was then incised through the whole abscess cavity. Next, a large area on the left posterior thigh was again incised to a distance of 10 cm. where a lot of pus was This cavity was incised throughout the whole length of at least 10 cm but it was in continuation with other smaller abscess cavity on the medial side. So in essence, there were at least 4 incisions: a 10 cm, a 5 cm, a 4 cm, a 3 cm on the right side. All these areas were then pulse lavaged with 3 L of saline. These areas also had obvious abscesses due to hydradenitis. Following this, hemostasis was obtained with cautery. All the abscess cavity sites were packed with 1/2 inch Iodoform gauze. Sterile ABD pads were placed and the patient had a disposable panty placed to keep the dressings in place. The patient tolerated the procedure well. Needle, instruments and sponge counts were all correct. Estimated blood loss was about 30 mL. Patient then brought to PACU in satisfactory condition. DICTATING PHYSICIAN: RAIZA KIMBLE M.D. [id number] PHY#: [id number] ID: [id number] JOB#: [id number] ACCT: [id number] cc:RAIZA KIMBLE M.D. > MTDD
[2017-02-22] MEDS: INSULIN REG, HUMAN 100 UNIT/ML 3 ML VIAL (PYX) SUBCUT PRN (23:39)
[2017-02-23] MEDS: OXYCODONE-ACETAMINOPHEN 5-325 MG TABLET PO PRN ×2 (00:13→11:57)
[2017-02-23] MEDS: PIPERACILLIN SODIUM/TAZOBACTAM 3.375 GM in NORMAL SALINE 100 ML IV SCH ×5 (00:27→23:38)
[2017-02-23] MEDS: HYDROCORTISONE SOD SUCCINATE INJ/PF 100 MG/2 ML SDV IV SCH ×3 (01:17→18:35)
[2017-02-23] MEDS: HYDROMORPHONE HCL INJ/PF 2 MG/ML AMPULE IV PRN ×3 (01:23→20:10)
[2017-02-23] MEDS ORDERED: ALPRAZOLAM 0.5 MG TABLET ONE (04:27)
[2017-02-23] MEDS: ALPRAZOLAM 0.5 MG TABLET PO PRN ×2 (04:36→21:33)
[2017-02-23] MEDS: MORPHINE SULFATE 10 MG/ML INJ IV PRN ×2 (04:36→13:23)
[2017-02-23] MEDS: VANCOMYCIN HCL 1,000 MG in DEXTROSE 5%-WATER 250 ML IV SCH ×3 (06:46→21:34)
[2017-02-23] MEDS: INSULIN REG, HUMAN 100 UNIT/ML 3 ML VIAL (PYX) SUBCUT PRN ×3 (07:29→21:19)
[2017-02-23 07:50] LABS: ABSOLUTE BASOPHILS # (AUTO) 0.1 10^3/uL (0.0-0.2); ABSOLUTE LYMPHOCYTES (AUTO) 1.6 10^3/uL (0.5-4.7); ABSOLUTE MONOCYTES (AUTO) 0.9 10^3/uL (0.1-1.4); ABSOLUTE NEUT (AUTO) 15.7 10^3/uL (1.7-8.2); BASOPHILS % (AUTO) 0.3 % (0-2); EOSINOPHILS % (AUTO) 0.1 % (0-6); HEMATOCRIT 30.9 % (37.9-51.0); HEMOGLOBIN 9.9 g/dL (13.5-17.0); HGB HCT DIFFERENCE -1.2; LYMPHOCYTES % (AUTO) 8.6 % (13-45); MEAN CORPUSCULAR HEMOGLOBIN 27.2 pg (27.0-33.4); MEAN CORPUSCULAR VOLUME 85 fl (80-97); MONOCYTES % (AUTO) 4.7 % (3-13); RED BLOOD COUNT 3.63 10^6/uL (4.35-5.55); RED CELL DISTRIBUTION WIDTH 17.9 % (11.5-14.0); SEGMENTED NEUTROPHILS % (AUTO) 86.3 % (42-78); WHITE BLOOD COUNT 18.2 10^3/uL (4.0-10.5)
[2017-02-23 07:55] LABS: ANION GAP 9 (5-19); BLOOD UREA NITROGEN 4 mg/dL (7-20); CALCIUM 8.2 mg/dL (8.4-10.2); CARBON DIOXIDE 22 mmol/L (22-30); CHLORIDE 109 mmol/L (98-107); CREATININE RESULT 0.62 mg/dL (0.52-1.25); GLUCOSE 371 mg/dL (75-110); MAGNESIUM 1.3 mg/dL (1.6-2.3); SODIUM 140.3 mmol/L (137-145)
[2017-02-23] MEDS: GABAPENTIN 300 MG CAPSULE PO SCH ×3 (09:09→21:32)
[2017-02-23] MEDS: OXYCODONE HCL IR 5 MG TABLET PO SCH ×3 (14:47→21:34)
[2017-02-23] MEDS: MORPHINE SULFATE SR 100 MG TABLET PO SCH ×2 (14:48→21:33)
[2017-02-23] MEDS ORDERED: MAGNESIUM SULFATE/D5W 1 GM/100 ML RTUPB IV ONE (16:00)
[2017-02-24] MEDS: HYDROCORTISONE SOD SUCCINATE INJ/PF 100 MG/2 ML SDV IV SCH ×3 (01:38→21:35)
[2017-02-24] MEDS: OXYCODONE HCL IR 5 MG TABLET PO SCH ×6 (02:13→21:33)
[2017-02-24] MEDS: OXYCODONE HCL IR 5 MG TABLET PO PRN ×3 (03:03→15:41)
[2017-02-24] MEDS: HYDROMORPHONE HCL INJ/PF 2 MG/ML AMPULE IV PRN ×3 (04:13→23:50)
[2017-02-24] MEDS: PIPERACILLIN SODIUM/TAZOBACTAM 3.375 GM in NORMAL SALINE 100 ML IV SCH ×4 (05:00→23:51)
[2017-02-24] MEDS: MORPHINE SULFATE SR 100 MG TABLET PO SCH ×3 (05:46→21:34)
[2017-02-24] MEDS: VANCOMYCIN HCL 1,000 MG in DEXTROSE 5%-WATER 250 ML IV SCH ×3 (05:48→21:35)
[2017-02-24] MEDS: GABAPENTIN 300 MG CAPSULE PO SCH ×3 (05:48→21:33)
[2017-02-24 05:52] LABS: ANION GAP 8 (5-19); BLOOD UREA NITROGEN 5 mg/dL (7-20); CALCIUM 8.1 mg/dL (8.4-10.2); CARBON DIOXIDE 26 mmol/L (22-30); CHLORIDE 104 mmol/L (98-107); CREATININE RESULT 0.69 mg/dL (0.52-1.25); GLUCOSE 325 mg/dL (75-110); POTASSIUM 3.2 mmol/L (3.6-5.0); SODIUM 138.1 mmol/L (137-145)
[2017-02-24 06:06] LABS: HEMATOCRIT 34.5 % (37.9-51.0); HGB HCT DIFFERENCE -1.5; MEAN CORPUSCULAR HEMOGLOBIN 26.9 pg (27.0-33.4); MEAN CORPUSCULAR VOLUME 84 fl (80-97); RED BLOOD COUNT 4.11 10^6/uL (4.35-5.55); RED CELL DISTRIBUTION WIDTH 17.4 % (11.5-14.0); WHITE BLOOD COUNT 20.2 10^3/uL (4.0-10.5)
[2017-02-24 06:10] LABS: BASOPHILS % (MANUAL) 0 % (0-2); EOSINOPHILS % (MANUAL) 0 % (0-6); LYMPHOCYTES % (MANUAL) 7 % (13-45); TOTAL CELLS COUNTED 100
[2017-02-24 06:12] LABS: ANISOCYTOSIS 1+; BURR CELLS SLIGHT; HYPOCHROMASIA SLIGHT; OVALOCYTES SLIGHT; POIKILOCYTOSIS SLIGHT; SCHISTOCYTES SLIGHT; TOXIC GRANULATION 1+; TOXIC VACUOLATION PRESENT
[2017-02-24] MEDS: INSULIN REG, HUMAN 100 UNIT/ML 3 ML VIAL (PYX) SUBCUT PRN (08:06)
[2017-02-24] MEDS ORDERED: POTASSI CL 20 MEQ/50 ML RIDER 20 MEQ/50 ML RTUPB IV ONE (09:30)
[2017-02-24] MEDS: INSULIN REG, HUMAN 100 UNIT/ML 3 ML VIAL (PYX) SUBCUT SCH ×5 (12:52→21:24)
--- NOTE | 2017-02-24 13:43 | PDOC PROGRESS REPORT ---
Subjective Progress Note for:: 02/23/17 Subjective:: Patient was seen at the bedside. He had a lot of information to give me about his past medical history. He describes that he is in immense pain from his debridement wounds. He states that he takes 100 mg of morphine 3 times a day at home as well as a total of 30 mg of oxycodone every 4 hours for breakthrough pain. This seems to have been verified by the pharmacist. He also says that he takes gabapentin 600 mg 3 times daily. However, this is not on his home medication list. He tells me he has a high tolerance for pain medication and that he needs higher doses. Physical Exam Vital Signs: Temp Pulse Resp BP Pulse Ox 98.3 F 50 L 16 134/69 H 92 02/23/17 11:17 02/23/17 11:17 02/23/17 11:17 02/23/17 11:17 02/23/17 11:17 Intake & Output 02/22/17 02/23/17 02/24/17 06:59 06:59 06:59 Intake Total 2178 7675 786 Output Total 475 5000 1200 Balance 1703 2675 -414 Weight 67.9 kg 67.1 kg GENERAL: This is a well-developed, well-nourished appearing male resting in bed currently in no acute distress. HEART: Regular rate and rhythm. No murmurs, rubs or gallops. LUNGS: Clear to auscultation bilaterally with equal rise and fall of the chest. ABDOMEN: Soft, nontender, nondistended with normoactive bowel sounds : Landry catheter is in place and draining jm colored urine. Perineal area dressed. EXTREMETIES: No clubbing, cyanosis or edema. 2+ peripheral pulses bilaterally. NEURO: The patient is awake and talkative today. He is oriented x3 with intact cranial nerves. Results Laboratory Results: 02/23/17 06:00 02/23/17 06:00 02/23/17 02/23/17 02/23/17 06:00 06:00 06:00 WBC 18.2 H RBC 3.63 L Hgb 9.9 L Hct 30.9 L MCV 85 MCH 27.2 MCHC 32.0 RDW 17.9 H Plt Count 566 H Seg Neutrophils % 86.3 H Lymphocytes % 8.6 L Monocytes % 4.7 Eosinophils % 0.1 Basophils % 0.3 Absolute Neutrophils 15.7 H Absolute Lymphocytes 1.6 Absolute Monocytes 0.9 Absolute Eosinophils 0.0 Absolute Basophils 0.1 Sodium 140.3 Potassium 4.0 Chloride 109 H Carbon Dioxide 22 Anion Gap 9 BUN 4 L Creatinine 0.62 Cancelled Est GFR ( Amer) > 60 Cancelled Est GFR (Non-Af Amer) > 60 Cancelled Glucose 371 H Calcium 8.2 L Magnesium 1.3 L Impressions: Pelvis CT 02/21/17 16:43 IMPRESSION: Findings consistent with the clinical history of multiple perianal abscesses as noted above. Assessment & Plan - Diagnosis (1) Sepsis Qualifiers: Sepsis type: sepsis due to unspecified organism Qualified Code(s): A41.9 - Sepsis, unspecified organism Is this a current diagnosis for this admission?: Yes Plan: Sepsis secondary to perineal abscess. Continue current antibiotics of vancomycin, Zosyn. He is status post I and D. wound cultures were taken during the procedure and are pending. (2) Abscess or cellulitis of perineum Is this a current diagnosis for this admission?: Yes Plan: Continue current antibiotics. (3) Crohns disease Is this a current diagnosis for this admission?: Yes (4) Diabetes mellitus Qualifiers: Diabetes mellitus type: type 2 Is this a current diagnosis for this admission?: Yes (5) Hidradenitis Is this a current diagnosis for this admission?: Yes
--- NOTE | 2017-02-24 13:51 | PDOC PROGRESS REPORT ---
Subjective Progress Note for:: 02/24/17 Subjective:: Patient complains of pain everywhere. The nurse did contact the surgeons for permission to give him his as needed Dilaudid before his upcoming dressing change. He denies any chest pain or shortness of breath. We have reviewed his medications again to determine which diabetic medications he was taking as an outpatient. Physical Exam Vital Signs: Temp Pulse Resp BP Pulse Ox 98.7 F 51 L 20 135/73 H 94 02/24/17 11:11 02/24/17 11:11 02/24/17 11:11 02/24/17 11:11 02/24/17 11:11 Intake & Output 02/23/17 02/24/17 02/25/17 06:59 06:59 06:59 Intake Total 7675 2405 900 Output Total 5000 2950 575 Balance 2675 -545 325 Weight 67.1 kg 67 kg GENERAL: This is a well-developed, well-nourished appearing -[place]ong[place] male resting in bed currently in no acute distress. HEART: Regular rate and rhythm. No murmurs, rubs or gallops. LUNGS: Clear to auscultation bilaterally with equal rise and fall of the chest. ABDOMEN: Soft, nontender, nondistended with normoactive bowel sounds. Colostomy bag with brown liquid stool. : Removed. EXTREMETIES: No clubbing, cyanosis or edema. 2+ peripheral pulses bilaterally. NEURO: Awake, alert, oriented 3. Cranial nerves are grossly intact. Results Laboratory Results: 02/24/17 04:54 02/24/17 04:54 02/24/17 02/24/17 04:54 04:54 WBC 20.2 H RBC 4.11 L Hgb 11.0 L Hct 34.5 L MCV 84 MCH 26.9 L MCHC 32.0 RDW 17.4 H Plt Count 545 H Seg Neutrophils % Not Reportable Lymphocytes % Not Reportable Monocytes % Not Reportable Eosinophils % Not Reportable Basophils % Not Reportable Absolute Neutrophils Not Reportable Absolute Lymphocytes Not Reportable Absolute Monocytes Not Reportable Absolute Eosinophils Not Reportable Absolute Basophils Not Reportable Sodium 138.1 Potassium 3.2 L Chloride 104 Carbon Dioxide 26 Anion Gap 8 BUN 5 L Creatinine 0.69 Est GFR ( Amer) > 60 Est GFR (Non-Af Amer) > 60 Glucose 325 H Calcium 8.1 L Impressions: Pelvis CT 02/21/17 16:43 IMPRESSION: Findings consistent with the clinical history of multiple perianal abscesses as noted above. Assessment & Plan - Diagnosis (1) Sepsis Qualifiers: Sepsis type: sepsis due to unspecified organism Qualified Code(s): A41.9 - Sepsis, unspecified organism Is this a current diagnosis for this admission?: Yes Plan: Sepsis secondary to perineal abscess. Continue current antibiotics of vancomycin, Zosyn. He is status post I and D. wound cultures were taken during the procedure and are pending. Dressing changes to today. I agree that as needed pain medicine before dressing changes is reasonable. (2) Abscess or cellulitis of perineum Is this a current diagnosis for this admission?: Yes Plan: Continue current antibiotics. (3) Crohns disease Is this a current diagnosis for this admission?: Yes Plan: Continue steroids. (4) Diabetes mellitus Qualifiers: Diabetes mellitus type: type 2 Is this a current diagnosis for this admission?: Yes Plan: Patient was placed on an insulin Drip for elevated blood sugars on admission. Patient's blood sugars while on the rise the one-point were above 400 overnight. I suspect this is due to the patient's underlying diabetes as well as use of hydrocortisone every 8 hours. I am going to decrease the hydrocortisone to every 12. We will change his blood sugar checks before meals at bedtime. Begin Lantus 15 units nightly and begin mealtime insulin of 5 units before meals. Continue sliding scale before meals at bedtime. We will see how his blood sugars do today. hemoglobin A1c is 10. (5) Hidradenitis Is this a current diagnosis for this admission?: Yes Plan: This a complication of the patient's Crohn's disease. Management as above - Time Time Spent with patient: 15-24 minutes - Inpatient Certification Medical Necessity: Need Close Monitoring Due to Risk of Patient Decompensation
--- NOTE | 2017-02-24 13:57 | PDOC PROGRESS REPORT ---
Subjective Progress Note for:: 02/24/17 Physical Exam Vital Signs: Temp Pulse Resp BP Pulse Ox 98.7 F 51 L 20 135/73 H 94 02/24/17 11:11 02/24/17 11:11 02/24/17 11:11 02/24/17 11:11 02/24/17 11:11 Intake & Output 02/23/17 02/24/17 02/25/17 06:59 06:59 06:59 Intake Total 7675 2405 900 Output Total 9837 2950 575 Balance 2675 -545 325 Weight 67.1 kg 67 kg General appearance: PRESENT: other - Perineal wound and buttocks wound are clean with no purulent drainage. Results Laboratory Results: 02/24/17 04:54 02/24/17 04:54 02/24/17 02/24/17 04:54 04:54 WBC 20.2 H RBC 4.11 L Hgb 11.0 L Hct 34.5 L MCV 84 MCH 26.9 L MCHC 32.0 RDW 17.4 H Plt Count 545 H Seg Neutrophils % Not Reportable Lymphocytes % Not Reportable Monocytes % Not Reportable Eosinophils % Not Reportable Basophils % Not Reportable Absolute Neutrophils Not Reportable Absolute Lymphocytes Not Reportable Absolute Monocytes Not Reportable Absolute Eosinophils Not Reportable Absolute Basophils Not Reportable Sodium 138.1 Potassium 3.2 L Chloride 104 Carbon Dioxide 26 Anion Gap 8 BUN 5 L Creatinine 0.69 Est GFR ( Amer) > 60 Est GFR (Non-Af Amer) > 60 Glucose 325 H Calcium 8.1 L Impressions: Pelvis CT 02/21/17 16:43 IMPRESSION: Findings consistent with the clinical history of multiple perianal abscesses as noted above. Assessment & Plan - Diagnosis (1) Abscess or cellulitis of perineum Is this a current diagnosis for this admission?: Yes Plan: Status post debridement. The wounds appear good. Will do local wound care and continuation of the antibiotics.
[2017-02-24] MEDS: ALPRAZOLAM 0.5 MG TABLET PO PRN (21:35)
[2017-02-24] MEDS: INSULIN GLARGINE,HUM.REC.ANLOG 300 UNIT/3 ML INSULN.PEN SUBCUT SCH (21:37)
[2017-02-25] MEDS: OXYCODONE HCL IR 5 MG TABLET PO PRN ×3 (00:09→12:02)
[2017-02-25] MEDS: OXYCODONE HCL IR 5 MG TABLET PO SCH ×6 (01:51→21:47)
[2017-02-25] MEDS: PIPERACILLIN SODIUM/TAZOBACTAM 3.375 GM in NORMAL SALINE 100 ML IV SCH ×2 (05:55→12:03)
[2017-02-25 06:13] LABS: HEMOGLOBIN 10.3 g/dL (13.5-17.0); HGB HCT DIFFERENCE -1.1; MEAN CORPUSCULAR HEMOGLOBIN 27.2 pg (27.0-33.4); MEAN CORPUSCULAR HGB CONC 32.2 g/dL (32.0-36.0); MEAN CORPUSCULAR VOLUME 85 fl (80-97); RED BLOOD COUNT 3.79 10^6/uL (4.35-5.55); RED CELL DISTRIBUTION WIDTH 17.8 % (11.5-14.0); WHITE BLOOD COUNT 20.8 10^3/uL (4.0-10.5)
[2017-02-25] MEDS: MORPHINE SULFATE SR 100 MG TABLET PO SCH ×3 (06:32→21:48)
[2017-02-25] MEDS: VANCOMYCIN HCL 1,000 MG in DEXTROSE 5%-WATER 250 ML IV SCH ×2 (06:33→13:18)
[2017-02-25] MEDS: GABAPENTIN 300 MG CAPSULE PO SCH ×3 (06:33→21:50)
[2017-02-25 06:35] LABS: ANION GAP 7 (5-19); BLOOD UREA NITROGEN 6 mg/dL (7-20); CALCIUM 8.3 mg/dL (8.4-10.2); CARBON DIOXIDE 28 mmol/L (22-30); CHLORIDE 102 mmol/L (98-107); GLUCOSE 201 mg/dL (75-110); MAGNESIUM 1.6 mg/dL (1.6-2.3); SODIUM 137.4 mmol/L (137-145)
[2017-02-25 06:38] LABS: POTASSIUM 2.6 mmol/L (3.6-5.0)
[2017-02-25 06:39] LABS: BASOPHILS % (MANUAL) 0 % (0-2); EOSINOPHILS % (MANUAL) 0 % (0-6); LYMPHOCYTES % (MANUAL) 24 % (13-45); TOTAL CELLS COUNTED 100
[2017-02-25 06:41] LABS: TOXIC GRANULATION SLIGHT
[2017-02-25 06:42] LABS: ANISOCYTOSIS 1+; OVALOCYTES SLIGHT; POIKILOCYTOSIS SLIGHT; POLYCHROMASIA SLIGHT; TARGET CELLS SLIGHT
[2017-02-25] MEDS: INSULIN REG, HUMAN 100 UNIT/ML 3 ML VIAL (PYX) SUBCUT SCH ×7 (07:54→22:57)
[2017-02-25] MEDS: POTASSI CL 20 MEQ/50 ML RIDER 20 MEQ/50 ML RTUPB IV SCH ×2 (07:57→10:50)
[2017-02-25] MEDS ORDERED: MAGNESIUM SULFATE/D5W 1 GM/100 ML RTUPB IV ONE (10:00)
[2017-02-25] MEDS ORDERED: HYDROCORTISONE SOD SUCCINATE INJ/PF 100 MG/2 ML SDV IV SCH (10:00)
[2017-02-25] MEDS: HYDROMORPHONE HCL INJ/PF 2 MG/ML AMPULE IV PRN (10:48)
--- NOTE | 2017-02-25 11:49 | PDOC PROGRESS REPORT ---
Subjective Progress Note for:: 02/25/17 Subjective:: patient comfortable Physical Exam Vital Signs: Temp Pulse Resp BP Pulse Ox 98.7 F 76 19 109/67 92 02/25/17 04:50 02/25/17 04:50 02/25/17 04:50 02/25/17 04:50 02/25/17 04:50 Intake & Output 02/24/17 02/25/17 02/26/17 06:59 06:59 06:59 Intake Total 2405 3986 Output Total 2950 3925 Balance -545 61 Weight 67 kg 71.2 kg Skin exam: PRESENT: other - Left perineal wound and two scrotal/perineal wonds identified: all clean, granulating, no odor, no cellulitits, presence of chronic induration and old scarred tissue Results Laboratory Results: 02/25/17 05:20 02/25/17 05:20 02/25/17 02/25/17 05:20 05:20 WBC 20.8 H RBC 3.79 L Hgb 10.3 L Hct 32.0 L MCV 85 MCH 27.2 MCHC 32.2 RDW 17.8 H Plt Count 561 H Seg Neutrophils % Not Reportable Lymphocytes % Not Reportable Monocytes % Not Reportable Eosinophils % Not Reportable Basophils % Not Reportable Absolute Neutrophils Not Reportable Absolute Lymphocytes Not Reportable Absolute Monocytes Not Reportable Absolute Eosinophils Not Reportable Absolute Basophils Not Reportable Sodium 137.4 Potassium 2.6 L* Chloride 102 Carbon Dioxide 28 Anion Gap 7 BUN 6 L Creatinine 0.60 Est GFR ( Amer) > 60 Est GFR (Non-Af Amer) > 60 Glucose 201 H Calcium 8.3 L Magnesium 1.6 Impressions: Pelvis CT 02/21/17 16:43 IMPRESSION: Findings consistent with the clinical history of multiple perianal abscesses as noted above. Assessment & Plan - Diagnosis (2) Abscess or cellulitis of perineum Is this a current diagnosis for this admission?: Yes - Plan Summary Plan Summary: A/ Patient with Crohn's disease and colostomy Perineal acute on chronic inflammatory changes s/p I&D of 3 perineal abscess, now clean and granulating P/ No acute General Surgery intervention needed Recommend daily wound care such lightly packing each wound with 1/4" packing strip once a day Patient can shower as there is no contraindication to do so: water can run over colostomy (with and without colostomy bag) and perineal wounds Patient can be discharged to home anytime by the General Surgery viewpoint Short course of Flagyl po (500 mg po TID x 7-10 days), then stop Patient to follow up with 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 Please, call us with questions
--- NOTE | 2017-02-25 16:51 | PDOC DISCHARGE SUMMARY ---
General - Admit/Disc Date/PCP Admission Date/Primary Care Provider: 02/21/17 17:59 DELROY CROUCH, DO Discharge Date: 02/25/17 - Discharge Diagnosis (1) Sepsis Is this a current diagnosis for this admission?: Yes Summary: Patient is improved. He had I&D of his wounds. Surgical service recommended 7 days of Flagyl. And follow-up in the office as directed. (2) Abscess or cellulitis of perineum Is this a current diagnosis for this admission?: Yes Summary: Management as above. The patient will need Flagyl for total of 7 days. He will be sent home with home health wound care. The patient will also be scheduled for his first appointment at the wound care clinic on March 07. This was discussed in some detail with the patient. It was also discussed with the patient that if he got home and felt like he could not manage his wounds that he could always call back up and speak with discharge planning to go to a nursing facility at that point. For now I think it is best that the patient go home and be in his own environment so that he can appropriately adjust of functioning and taking care of himself at home. He has Medicaid and is part of the caps program and can get to his appointments through these means. The floor nurse contacted the patient's doctor's office and they are willing to assist with his dressing changes in the office to help fill in the gaps between home health and wound care clinic. In terms of managing his pain the patient has asked for extra medications. He is been here for the last 4 days so he should have extra medication at home that he has not used. The patient also recently had prescription medications filled prior to coming into the hospital. He will need to follow-up with his primary care physician within a week. (3) Crohns disease Is this a current diagnosis for this admission?: Yes Summary: Continue prednisone. (4) Diabetes mellitus Is this a current diagnosis for this admission?: Yes (5) Hidradenitis Is this a current diagnosis for this admission?: Yes Summary: Management as above. - Additional Information Resuscitation Status: Full Code Home Medications: Albuterol Sulfate [Ventolin Hfa] 2 puff IH Q4HP PRN 02/21/17 Alprazolam [Xanax] 2 mg PO Q8 02/21/17 Lisinopril [Prinivil 5 mg Tablet] 5 mg PO DAILY 02/21/17 Morphine Sulfate [Morphine Sulfate ER] 100 mg PO Q8 02/21/17 Ondansetron HCl [Zofran 8 mg Tablet] 8 mg PO Q8HP PRN 02/21/17 Oxycodone HCl 20 mg PO Q4 02/21/17 Oxycodone HCl [Oxycodone HCl 10 MG Tablet] 10 mg PO Q4HP PRN 02/21/17 Insulin Glargine,Hum.rec.anlog [Lantus Insulin 100 Unit/mL] 15 unit SUBCUT QHS # 1 insuln.pen 02/25/17 Insulin Regular, Human [Humulin R (Reg) Insulin 100 unit/mL] 5 unit SUBCUT AC # 100 unit 02/25/17 Metronidazole [Flagyl 500 mg Tablet] 500 mg PO TID #21 tablet 02/25/17 Oxycodone HCl [Oxy-Ir 5 mg Tablet] 10 mg PO Q4HP PRN tablet 02/25/17 History of Present Illness History of Present Illness: HPI as per admitting physician. History of Present Illness Admission Date/PCP: DELROY CROUCH DO Patient complains of: Pelvic pain History of Present Illness: TIA VILLANUEVA is a 51 year old male with past medical history of Crohn's disease and hidradenitis presents with pelvic pain and feeling generally unwell for approximately 1 month. 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 In 2014 he had a diverting colostomy in order to protect the peroneal region. Hospital Course Hospital Course: The patient was admitted to the hospital and initially started on an insulin drip for elevated blood sugars. He was able to be weaned off of this. He was started on Lantus along with mealtime insulin and sliding scale insulin. The patient's blood sugars improved and were able to be maintained below 300. The patient did go to the OR for incision and debridement of his perineal wounds. He currently is undergoing wound care with daily dressing changes and packing. A1c came back at 10.5. The patient complains of intermittent pain while he was here. He was resumed back on his home doses of narcotics. Even with this his pain was not tolerable according to his report. Patient was seen by the surgeon on the day of discharge and felt to be stable enough to leave the hospital from the perspective of his wounds. His blood sugars were under better control and therefore was felt to be stable from a medicine perspective. The patient will be discharged home with home health and wound care. He will need to present to the wound clinic for times that home health is not able to come out. We have arranged for home health to meet him on Tuesday for dressing changes then. He will receive dressing changes on Tuesday prior to leaving the hospital. He may also present to his physician's office for instances where he cannot make it to the wound care clinic. Physical Exam Vital Signs: Temp Pulse Resp BP Pulse Ox 98.7 F 76 19 109/67 92 02/25/17 04:50 02/25/17 04:50 02/25/17 04:50 02/25/17 04:50 02/25/17 04:50 Intake & Output 02/24/17 02/25/17 02/26/17 06:59 06:59 06:59 Intake Total 2405 3986 600 Output Total 2950 3925 800 Balance -545 61 -200 Weight 67 kg 71.2 kg GENERAL: This is a well-developed, well-nourished appearing -[place] male resting in bed currently in no acute distress. HEART: Regular rate and rhythm. No murmurs, rubs or gallops. LUNGS: Clear to auscultation bilaterally with equal rise and fall of the chest. ABDOMEN: Soft, nontender, nondistended with normoactive bowel sounds. Colostomy bag with brown liquid stool. : Removed. EXTREMETIES: No clubbing, cyanosis or edema. 2+ peripheral pulses bilaterally. NEURO: Awake, alert, oriented 3. Cranial nerves are grossly intact. Skin: The patient has 2 large perineal wounds and one left buttock wound which are open and granulated. The wound has beefy appearing skin. Results Laboratory Results: 02/25/17 05:20 02/25/17 05:20 02/25/17 02/25/17 05:20 05:20 WBC 20.8 H RBC 3.79 L Hgb 10.3 L Hct 32.0 L MCV 85 MCH 27.2 MCHC 32.2 RDW 17.8 H Plt Count 561 H Seg Neutrophils % Not Reportable Lymphocytes % Not Reportable Monocytes % Not Reportable Eosinophils % Not Reportable Basophils % Not Reportable Absolute Neutrophils Not Reportable Absolute Lymphocytes Not Reportable Absolute Monocytes Not Reportable Absolute Eosinophils Not Reportable Absolute Basophils Not Reportable Sodium 137.4 Potassium 2.6 L* Chloride 102 Carbon Dioxide 28 Anion Gap 7 BUN 6 L Creatinine 0.60 Est GFR ( Amer) > 60 Est GFR (Non-Af Amer) > 60 Glucose 201 H Calcium 8.3 L Magnesium 1.6 Impressions: Pelvis CT 02/21/17 16:43 IMPRESSION: Findings consistent with the clinical history of multiple perianal abscesses as noted above. Qualifiers PATEINT BEING DISCHARGED WITH ANY OF THE FOLLOWING DIAGNOSIS?: No Plan Time Spent: Greater than 30 Minutes - This includes multiple discussions throughout the day with the patient, surgeon, discharge planning and nursing staff.
--- NOTE | 2017-02-25 18:16 | Progress Note ---
Provider Note Provider Note: Notified by radiologist the patient has either interstitial/aveolar edema or pneumonia. We will resume Levaquin at this time and give a dose of lasix.
[2017-02-25 18:17] LABS: ARTERIAL BLOOD BASE EXCESS 3.5 mmol/L; ARTERIAL BLOOD O2 SATURATION 81.3 % (94-98)
--- NOTE | 2017-02-25 18:18 | RADIOLOGY REPORT (SQ) ---
EXAM DESCRIPTION: CHEST PA/LAT COMPLETED DATE/TIME: 02/25/2017 6:00 pm REASON FOR STUDY: DECREASE OXYGEN LEVEL COMPARISON: Chest films 07/08/2015, 06/19/2015 EXAM PARAMETERS: NUMBER OF VIEWS: two views TECHNIQUE: Digital Frontal and Lateral radiographic views of the chest acquired. RADIATION DOSE: NA LIMITATIONS: none FINDINGS: LUNGS AND PLEURA: Diffuse bilateral alveolar and interstitial infiltrates, worrisome for a typical pneumonia versus pulmonary edema. No pleural effusions. No pneumothorax. MEDIASTINUM AND HILAR STRUCTURES: No cardiomegaly HEART AND VASCULAR STRUCTURES: Heart normal size. No evidence for failure. BONES: No acute findings. HARDWARE: Clips right upper quadrant post cholecystectomy OTHER: No other significant finding. IMPRESSION: Diffuse bilateral alveolar and interstitial infiltrates worrisome for either atypical pn eumonia or pulmonary edema. This report was called to Dr. Resendez, 1810 hours, 02/25/2017 TECHNICAL DOCUMENTATION: JOB ID: [id number] [employer]- All Rights Reserved
[2017-02-25] MEDS ORDERED: FUROSEMIDE INJ/PF 20 MG/2 ML SDV IV ONE (19:00)
[2017-02-25] MEDS: METRONIDAZOLE 500 MG TABLET PO SCH (21:47)
[2017-02-25] MEDS: INSULIN GLARGINE,HUM.REC.ANLOG 300 UNIT/3 ML INSULN.PEN SUBCUT SCH (22:59)
[2017-02-26] MEDS: ACETAMINOPHEN 325 MG TABLET PO PRN (01:13)
[2017-02-26] MEDS: OXYCODONE HCL IR 5 MG TABLET PO SCH ×6 (02:02→23:18)
[2017-02-26] MEDS: GABAPENTIN 300 MG CAPSULE PO SCH ×3 (06:36→23:17)
[2017-02-26] MEDS: METRONIDAZOLE 500 MG TABLET PO SCH ×3 (06:37→23:18)
[2017-02-26] MEDS: MORPHINE SULFATE SR 100 MG TABLET PO SCH ×3 (06:37→23:20)
[2017-02-26] MEDS: INSULIN REG, HUMAN 100 UNIT/ML 3 ML VIAL (PYX) SUBCUT SCH ×7 (09:01→23:37)
--- NOTE | 2017-02-26 09:18 | RADIOLOGY REPORT (SQ) ---
EXAM DESCRIPTION: CT CHEST WITHOUT COMPLETED DATE/TIME: 02/26/2017 8:53 am REASON FOR STUDY: hypoxemia COMPARISON: CHEST RADIOGRAPH FROM 02/25/2017. TECHNIQUE: CT scan performed of the chest without intravenous contrast. Images reviewed with lung, soft tissue and bone windows. Reconstructed coronal and sagittal MPR images reviewed. All images st ored on PACS. All CT scanners at this facility use dose modulation, iterative reconstruction, and/or weight based d osing when appropriate to reduce radiation dose to as low as reasonably achievable (ALARA). [facility]: Dose Right [facility]: CareDose [facility]: Dose Right [facility]: Teradose 4D [facility]: Smart VHX RADIATION DOSE: Up-to-date CT equipment and radiation dose reduction techniques were employed. CTDIv ol: 6.8 mGy. DLP: 260 mGy-cm. mGy. LIMITATIONS: No technical limitations. FINDINGS: LUNGS AND PLEURA: Diffuse ground-glass airspace disease with some nodular opacities in the right upper lobe. Trace bilateral pleural effusions. HILAR AND MEDIASTINAL STRUCTURES: No identified masses or abnormal nodes. No obvious aneurysm. HEART AND VASCULAR STRUCTURES: Mild cardiomegaly. No aneurysm. No pericardial effusion. 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 Partial visualiz ation of ventral wall ostomy. THYROID AND OTHER SOFT TISSUES: No masses. No adenopathy. BONES: No significant finding. HARDWARE: None in the chest. OTHER: No other significant findings. IMPRESSION: DIFFUSE GROUND-GLASS AIRSPACE DISEASE WITH A FEW NODULAR OPACITIES IN THE RIGHT UPPER LO BE ALONG WITH TRACE BILATERAL PLEURAL EFFUSIONS. FINDINGS COULD REPRESENT ATYPICAL INFECTIOUS OR INF LAMMATORY PNEUMONITIS. ARDS/SIRS SHOULD ALSO BE CONSIDERED GIVEN KNOWN PERIANAL ABSCESSES. TECHNICAL DOCUMENTATION: JOB ID: [id number] Quality ID # [id number]: Final reports with documentation of one or more dose reduction techniques (e.g., Au tomated exposure control, adjustment of the mA and/or kV according to patient size, use of iterative reconstruction technique) 2010 [employer]- All Rights Reserved
[2017-02-26] MEDS ORDERED: LEVOFLOXACIN 750 MG/D5W RTU 750 MG/150 ML RTUPB IV SCH (10:00)
[2017-02-26] MEDS ORDERED: PREDNISONE 20 MG TABLET PO SCH (10:00)
[2017-02-26] MEDS ORDERED: PHARMACY COMMUNICATION ORDER MC NR (13:30)
--- NOTE | 2017-02-26 13:45 | PDOC PROGRESS REPORT ---
Subjective Progress Note for:: 02/26/17 Subjective:: Pt states that he feels very weak. Nursing states that pt is requiring 4 liters Nasal canula. Nusing also states that pt is very unstable when ambulating. Physical Exam Vital Signs: Temp Pulse Resp BP Pulse Ox 99.6 F 81 19 105/62 92 02/26/17 11:56 02/26/17 11:56 02/26/17 11:56 02/26/17 11:56 02/26/17 12:03 Intake & Output 02/25/17 02/26/17 02/27/17 06:59 06:59 06:59 Intake Total 3986 3010 474 Output Total 3925 1300 450 Balance 61 1710 24 Weight 71.2 kg 68.4 kg General appearance: PRESENT: mild distress, thin Head exam: PRESENT: atraumatic Eye exam: PRESENT: conjunctiva pink, EOMI Mouth exam: PRESENT: moist Neck exam: PRESENT: full ROM Respiratory exam: PRESENT: other - Fair air movement upper lobes but diminished at bases. Cardiovascular exam: PRESENT: RRR, other - no lower ext edema GI/Abdominal exam: PRESENT: normal bowel sounds, soft. ABSENT: distended, guarding, mass, organolmegaly, rebound, tenderness Musculoskeletal exam: PRESENT: full ROM Neurological exam: PRESENT: alert, awake, oriented to person, oriented to place , oriented to time, oriented to situation, CN II-XII grossly intact. ABSENT: motor sensory deficit Psychiatric exam: PRESENT: appropriate affect, normal mood. ABSENT: homicidal ideation, suicidal ideation Skin exam: PRESENT: dry, warm Results Laboratory Results: 02/25/17 05:20 02/25/17 05:20 02/25/17 02/25/17 17:30 18:11 Carbonic Acid Cancelled 1.11 HCO3/H2CO3 Ratio Cancelled 24:1 ABG pH Cancelled 7.48 H ABG pCO2 Cancelled 36.8 ABG pO2 Cancelled 41.7 L ABG HCO3 Cancelled 27.0 H ABG O2 Saturation Cancelled 81.3 L ABG Base Excess Cancelled 3.5 FiO2 Cancelled 2L 02/22/17 16:50 Perineum Gram Stain - Final 02/22/17 16:50 Perineum Wound Culture - Final Bacteroides Fragilis Prevotella Species Skin [place] Impressions: Pelvis CT 02/21/17 16:43 IMPRESSION: Findings consistent with the clinical history of multiple perianal abscesses as noted above. Chest X-Ray 02/25/17 00:00 IMPRESSION: Diffuse bilateral alveolar and interstitial infiltrates worrisome for either atypical pneumonia or pulmonary edema. This report was called to Dr. Resendez, 1810 hours, 02/25/[address] 02/26/17 08:00 IMPRESSION: DIFFUSE GROUND-GLASS AIRSPACE DISEASE WITH A FEW NODULAR OPACITIES IN THE RIGHT UPPER LOBE ALONG WITH TRACE BILATERAL PLEURAL EFFUSIONS. FINDINGS COULD REPRESENT ATYPICAL INFECTIOUS OR INFLAMMATORY PNEUMONITIS. ARDS/SIRS SHOULD ALSO BE CONSIDERED GIVEN KNOWN PERIANAL ABSCESSES. Assessment & Plan - Diagnosis (1) Acute and chronic respiratory failure Qualifiers: Respiratory failure complication: hypoxia Qualified Code(s): J96.21 - Acute and chronic respiratory failure with hypoxia Is this a current diagnosis for this admission?: Yes Plan: Pt's CT of chest demonstrated possible Atypical infectious or inflammotory pneumonitis. Read also includes ARDS/SIRS pt noted to have diffuse ground glass airspace disease. Will place on Zosyn. Will order for Chest PT and breathing treatments. Will treat currently as infection. Due to pt's complicated medical history will monitor closely for evidence of worsening respiratory function consistent with ARDS. (2) Pneumonia Qualifiers: Pneumonia type: due to unspecified organism Laterality: right Lung location: upper lobe of lung Qualified Code(s): J18.1 - Lobar pneumonia, unspecified organism Is this a current diagnosis for this admission?: Yes Plan: Will place pt on Zosyn. Will order for breathing treatments and Chest PT. Will discontine CPT if no improvement. (3) Leukocytosis Is this a current diagnosis for this admission?: Yes Plan: Secondary to Sepsis and Steroids: Will decrease Steroids. Will change ABX to Zosyn. Will monitor closely. (4) Malnutrition of moderate degree Is this a current diagnosis for this admission?: Yes Plan: Will add Glucerna with each meal. (5) Abscess or cellulitis of perineum Is this a current diagnosis for this admission?: Yes Plan: Will continue antibiotic treatment. (6) Crohns disease Qualifiers: Gastrointestinal tract location: unspecified location Is this a current diagnosis for this admission?: Yes Plan: Will decrease steroids to 20 mg PO Qdaily. (7) Diabetes mellitus Qualifiers: Diabetes mellitus type: type 2 Is this a current diagnosis for this admission?: Yes Plan: Will continue current treatment plan. (8) Sepsis Qualifiers: Sepsis type: sepsis due to unspecified organism Qualified Code(s): A41.9 - Sepsis, unspecified organism Is this a current diagnosis for this admission?: Yes Plan: Will continue antibiotic treatment. - Time Time Spent with patient: 25-34 minutes
[2017-02-26] MEDS: IPRATROPIUM/ALBUTEROL 0.5-2.5 MG/3 ML AMPUL NEB SCH (16:18)
[2017-02-26] MEDS: PIPERACILLIN SODIUM/TAZOBACTAM 3.375 GM in NORMAL SALINE 100 ML IV SCH ×2 (17:31→23:26)
[2017-02-26] MEDS: INSULIN GLARGINE,HUM.REC.ANLOG 300 UNIT/3 ML INSULN.PEN SUBCUT SCH (23:17)
[2017-02-27] MEDS: IPRATROPIUM/ALBUTEROL 0.5-2.5 MG/3 ML AMPUL NEB SCH ×4 (00:02→23:39)
[2017-02-27] MEDS: OXYCODONE HCL IR 5 MG TABLET PO SCH ×4 (02:41→13:41)
[2017-02-27] MEDS: ACETAMINOPHEN 325 MG TABLET PO PRN (03:26)
[2017-02-27 06:12] LABS: ABSOLUTE BASOPHILS # (AUTO) 0.3 10^3/uL (0.0-0.2); ABSOLUTE EOSINOPHILS # (AUTO) 0.3 10^3/uL (0.0-0.6); ABSOLUTE LYMPHOCYTES (AUTO) 4.2 10^3/uL (0.5-4.7); ABSOLUTE MONOCYTES (AUTO) 1.2 10^3/uL (0.1-1.4); ABSOLUTE NEUT (AUTO) 11.1 10^3/uL (1.7-8.2); BASOPHILS % (AUTO) 1.9 % (0-2); EOSINOPHILS % (AUTO) 1.7 % (0-6); HEMOGLOBIN 9.7 g/dL (13.5-17.0); HGB HCT DIFFERENCE -0.9; LYMPHOCYTES % (AUTO) 24.7 % (13-45); MEAN CORPUSCULAR HGB CONC 32.3 g/dL (32.0-36.0); MEAN CORPUSCULAR VOLUME 84 fl (80-97); RED BLOOD COUNT 3.59 10^6/uL (4.35-5.55); RED CELL DISTRIBUTION WIDTH 17.7 % (11.5-14.0); SEGMENTED NEUTROPHILS % (AUTO) 64.7 % (42-78); WHITE BLOOD COUNT 17.1 10^3/uL (4.0-10.5)
[2017-02-27 06:33] LABS: ALANINE AMINOTRANSFERASE 23 U/L (21-72); ALBUMIN 2.7 g/dL (3.5-5.0); ALKALINE PHOSPHATASE 107 U/L (38-126); ANION GAP 5 (5-19); ASPARTATE AMINO TRANSFERASE 38 U/L (17-59); BILIRUBIN,DIRECT 0.4 mg/dL (0.0-0.4); BILIRUBIN,TOTAL 0.5 mg/dL (0.2-1.3); BLOOD UREA NITROGEN 7 mg/dL (7-20); CALCIUM 8.2 mg/dL (8.4-10.2); CARBON DIOXIDE 35 mmol/L (22-30); CHLORIDE 96 mmol/L (98-107); CREATININE RESULT 0.59 mg/dL (0.52-1.25); GLUCOSE 54 mg/dL (75-110); MAGNESIUM 1.6 mg/dL (1.6-2.3); PHOSPHORUS 3.4 mg/dL (2.5-4.5); SODIUM 135.6 mmol/L (137-145)
[2017-02-27] MEDS: METRONIDAZOLE 500 MG TABLET PO SCH ×3 (06:36→22:54)
[2017-02-27] MEDS: GABAPENTIN 300 MG CAPSULE PO SCH ×3 (06:36→22:53)
[2017-02-27] MEDS: MORPHINE SULFATE SR 100 MG TABLET PO SCH ×2 (06:37→13:41)
[2017-02-27] MEDS: PIPERACILLIN SODIUM/TAZOBACTAM 3.375 GM in NORMAL SALINE 100 ML IV SCH ×3 (06:39→17:16)
[2017-02-27 06:40] LABS: POTASSIUM 2.3 mmol/L (3.6-5.0)
[2017-02-27] MEDS ORDERED: POTASSIUM CHLORIDE 10 MEQ TABLET.SA PO ONE (07:37)
[2017-02-27] MEDS ORDERED: NORMAL SALINE 1000 ML 1,000 ML IV ONE (07:43)
[2017-02-27] MEDS: INSULIN REG, HUMAN 100 UNIT/ML 3 ML VIAL (PYX) SUBCUT SCH ×7 (08:01→23:53)
[2017-02-27] MEDS: MAGNESIUM SULFATE/D5W 1 GM/100 ML RTUPB IV SCH ×2 (08:07→11:37)
[2017-02-27] MEDS: POTASSI CL 20 MEQ/50 ML RIDER 20 MEQ/50 ML RTUPB IV SCH ×3 (08:07→13:02)
[2017-02-27] MEDS: NORMAL SALINE 1000 ML 1,000 ML IV PRN ×2 (09:15→20:12)
[2017-02-27] MEDS ORDERED: PREDNISONE 20 MG TABLET PO SCH (10:00)
[2017-02-27] MEDS ORDERED: MAGNESIUM SULFATE/D5W 1 GM/100 ML RTUPB IV ONE (11:30)
--- NOTE | 2017-02-27 12:08 | PDOC PROGRESS REPORT ---
Subjective Progress Note for:: 02/27/17 Subjective:: Pt states that he nose passages are dry. Pt also states that his nose is draining a lot. Pt states that he is short of breath with talking that has been going on for days. Pt states that he is coughing up thick yellow phlegm. Nursing reports that pt was febrile overnight and BP was lower this morning. Physical Exam Vital Signs: Temp Pulse Resp BP Pulse Ox 99.5 F 78 18 90/54 L 91 L 02/27/17 07:39 02/27/17 08:19 02/27/17 08:19 02/27/17 07:39 02/27/17 08:19 Intake & Output 02/26/17 02/27/17 02/28/17 06:59 06:59 06:59 Intake Total 3010 1688 Output Total 1300 875 Balance 1710 813 Weight 68.4 kg 67.7 kg General appearance: PRESENT: no acute distress, well-developed, well-nourished Head exam: PRESENT: atraumatic, normocephalic Eye exam: PRESENT: conjunctiva pink, EOMI Ear exam: PRESENT: normal external ear exam Mouth exam: PRESENT: dry mucosa Neck exam: PRESENT: full ROM Respiratory exam: PRESENT: other - Coarse breath sounds right upper lobe, diminished at bases. Cardiovascular exam: PRESENT: RRR. ABSENT: diastolic murmur, rubs, systolic murmur Pulses: PRESENT: normal dorsalis pedis pul Vascular exam: PRESENT: normal capillary refill GI/Abdominal exam: PRESENT: normal bowel sounds, soft. ABSENT: distended, guarding, mass, organolmegaly, rebound, tenderness Extremities exam: PRESENT: full ROM Musculoskeletal exam: PRESENT: full ROM Neurological exam: PRESENT: alert, awake, oriented to person, oriented to place , oriented to time, oriented to situation, CN II-XII grossly intact. ABSENT: motor sensory deficit Psychiatric exam: PRESENT: appropriate affect, normal mood. ABSENT: homicidal ideation, suicidal ideation Results Laboratory Results: 02/27/17 05:11 02/27/17 05:11 02/27/17 02/27/17 02/27/17 05:11 05:11 05:11 WBC 17.1 H RBC 3.59 L Hgb 9.7 L Hct 30.0 L MCV 84 MCH 27.0 MCHC 32.3 RDW 17.7 H Plt Count 542 H Seg Neutrophils % 64.7 Lymphocytes % 24.7 Monocytes % 7.0 Eosinophils % 1.7 Basophils % 1.9 Absolute Neutrophils 11.1 H Absolute Lymphocytes 4.2 Absolute Monocytes 1.2 Absolute Eosinophils 0.3 Absolute Basophils 0.3 H Retic Count (auto) 2.16 Absolute Retic 0.090 Sodium 135.6 L Potassium 2.3 L* Chloride 96 L Carbon Dioxide 35 H Anion Gap 5 BUN 7 Creatinine 0.59 Est GFR ( Amer) > 60 Est GFR (Non-Af Amer) > 60 Glucose 54 L Calcium 8.2 L Phosphorus 3.4 Magnesium 1.6 Iron TIBC % Saturation Ferritin Total Bilirubin 0.5 AST 38 ALT 23 Alkaline Phosphatase 107 Total Protein 6.0 L Albumin 2.7 L Vitamin B12 Folate 02/27/17 09:15 WBC RBC Hgb Hct MCV MCH MCHC RDW Plt Count Seg Neutrophils % Lymphocytes % Monocytes % Eosinophils % Basophils % Absolute Neutrophils Absolute Lymphocytes Absolute Monocytes Absolute Eosinophils Absolute Basophils Retic Count (auto) Absolute Retic Sodium Potassium Chloride Carbon Dioxide Anion Gap BUN Creatinine Est GFR ( Amer) Est GFR (Non-Af Amer) Glucose Calcium Phosphorus Magnesium Iron < 10.1 L TIBC 179 L % Saturation UNABLE TO CALCULATE Ferritin 179.00 Total Bilirubin AST ALT Alkaline Phosphatase Total Protein Albumin Vitamin B12 261.0 Folate 16.80 02/22/17 16:50 Perineum Gram Stain - Final 02/22/17 16:50 Perineum Wound Culture - Final Bacteroides Fragilis Prevotella Species Skin [place] Impressions: Pelvis CT 02/21/17 16:43 IMPRESSION: Findings consistent with the clinical history of multiple perianal abscesses as noted above. Chest X-Ray 02/25/17 00:00 IMPRESSION: Diffuse bilateral alveolar and interstitial infiltrates worrisome for either atypical pneumonia or pulmonary edema. This report was called to Dr. Resendez, 1810 hours, 02/25/[address] 02/26/17 08:00 IMPRESSION: DIFFUSE GROUND-GLASS AIRSPACE DISEASE WITH A FEW NODULAR OPACITIES IN THE RIGHT UPPER LOBE ALONG WITH TRACE BILATERAL PLEURAL EFFUSIONS. FINDINGS COULD REPRESENT ATYPICAL INFECTIOUS OR INFLAMMATORY PNEUMONITIS. ARDS/SIRS SHOULD ALSO BE CONSIDERED GIVEN KNOWN PERIANAL ABSCESSES. Assessment & Plan - Diagnosis (1) Acute and chronic respiratory failure Qualifiers: Respiratory failure complication: hypoxia Qualified Code(s): J96.21 - Acute and chronic respiratory failure with hypoxia Is this a current diagnosis for this admission?: Yes Plan: Pt's CT of chest demonstrated possible Atypical infectious or inflammotory pneumonitis. Read also includes ARDS/SIRS pt noted to have diffuse ground glass airspace disease. Will continue Zosyn. Pt WBC have decrease. Pt did have Fever overnight. Pt declined Chest PT but agreed to breathing treatments. Will treat currently as infection. Due to pt's complicated medical history will monitor closely for evidence of worsening respiratory function consistent with ARDS. (2) Sepsis Qualifiers: Sepsis type: sepsis due to unspecified organism Qualified Code(s): A41.9 - Sepsis, unspecified organism Is this a current diagnosis for this admission?: Yes Plan: Will continue antibiotic treatment. (3) Abscess or cellulitis of perineum Is this a current diagnosis for this admission?: Yes Plan: Will continue antibiotic treatment. Will have PICC line placed. Pt will need IV ABX for at least 21 days total infection continues to improve. (4) Hypotension Qualifiers: Hypotension type: other hypotension type Qualified Code(s): I95.89 - Other hypotension Is this a current diagnosis for this admission?: Yes Plan: Secondary to Sepsis: Will give IVF for Volume Expansion: BMP in am. (5) Hypokalemia Is this a current diagnosis for this admission?: Yes Plan: Will give PO and IV Potassium replacement with BMP check this afternoon. (6) Hypomagnesemia Is this a current diagnosis for this admission?: Yes Plan: Will give Magenesium Replacement. (7) Pneumonia Qualifiers: Pneumonia type: due to unspecified organism Laterality: right Lung location: upper lobe of lung Qualified Code(s): J18.1 - Lobar pneumonia, unspecified organism Is this a current diagnosis for this admission?: Yes Plan: Zosyn. Breathing treatments and Chest PT ordered . Will discontinue CPT if no improvement. Will check chest x-ray in am (8) Malnutrition of moderate degree Is this a current diagnosis for this admission?: Yes Plan: Will add Glucerna with each meal. (9) Leukocytosis Is this a current diagnosis for this admission?: Yes Plan: Secondary to Sepsis and Steroids: Will decrease Steroids. Will continue Zosyn. WBC decrease this morning on CBC. Will monitor closely. (10) Crohns disease Qualifiers: Gastrointestinal tract location: unspecified location Is this a current diagnosis for this admission?: Yes Plan: Prednisone 20 mg PO Qdaily. (11) Diabetes mellitus Qualifiers: Diabetes mellitus type: type 2 Is this a current diagnosis for this admission?: Yes Plan: Will continue current treatment plan. - Time Time Spent with patient: 25-34 minutes
[2017-02-27] MEDS ORDERED: CROMOLYN SODIUM NASAL SPRAY (5.2 MG/SPRAY) 26 ML NASL ONE (13:00)
[2017-02-27] MEDS ORDERED: FLUTICASONE NASAL SPRAY 50 MCG/SPRY 120 SPRAY/16 GM NASL ONE (13:00)
[2017-02-27] MEDS: OXYCODONE HCL IR 5 MG TABLET PO PRN ×2 (15:51→20:06)
[2017-02-27] MEDS: ALPRAZOLAM 0.5 MG TABLET PO PRN (22:51)
[2017-02-27] MEDS: MORPHINE SULFATE SR 30 MG TABLET PO SCH (22:55)
[2017-02-27] MEDS: INSULIN GLARGINE,HUM.REC.ANLOG 300 UNIT/3 ML INSULN.PEN SUBCUT SCH (22:57)
[2017-02-28] MEDS: PIPERACILLIN SODIUM/TAZOBACTAM 3.375 GM in NORMAL SALINE 100 ML IV SCH ×4 (00:14→20:56)
[2017-02-28 05:26] LABS: ABSOLUTE BASOPHILS # (AUTO) 0.1 10^3/uL (0.0-0.2); ABSOLUTE EOSINOPHILS # (AUTO) 0.4 10^3/uL (0.0-0.6); ABSOLUTE LYMPHOCYTES (AUTO) 4.2 10^3/uL (0.5-4.7); ABSOLUTE MONOCYTES (AUTO) 1.4 10^3/uL (0.1-1.4); ABSOLUTE NEUT (AUTO) 8.9 10^3/uL (1.7-8.2); BASOPHILS % (AUTO) 0.7 % (0-2); EOSINOPHILS % (AUTO) 2.5 % (0-6); HEMOGLOBIN 9.5 g/dL (13.5-17.0); HGB HCT DIFFERENCE -0.5; LYMPHOCYTES % (AUTO) 28.1 % (13-45); MEAN CORPUSCULAR HEMOGLOBIN 27.4 pg (27.0-33.4); MEAN CORPUSCULAR HGB CONC 32.8 g/dL (32.0-36.0); MEAN CORPUSCULAR VOLUME 84 fl (80-97); MONOCYTES % (AUTO) 9.1 % (3-13); RED BLOOD COUNT 3.47 10^6/uL (4.35-5.55); RED CELL DISTRIBUTION WIDTH 17.9 % (11.5-14.0); SEGMENTED NEUTROPHILS % (AUTO) 59.6 % (42-78)
[2017-02-28 05:31] LABS: PROTHROMBIN TIME 15.9 SEC (11.4-15.4)
[2017-02-28 05:54] LABS: ALANINE AMINOTRANSFERASE 19 U/L (21-72); ALBUMIN 2.3 g/dL (3.5-5.0); ALKALINE PHOSPHATASE 113 U/L (38-126); ANION GAP 5 (5-19); ASPARTATE AMINO TRANSFERASE 16 U/L (17-59); BILIRUBIN,DIRECT 0.4 mg/dL (0.0-0.4); BILIRUBIN,TOTAL 0.5 mg/dL (0.2-1.3); BLOOD UREA NITROGEN 6 mg/dL (7-20); CALCIUM 8.1 mg/dL (8.4-10.2); CARBON DIOXIDE 31 mmol/L (22-30); CHLORIDE 103 mmol/L (98-107); CREATININE RESULT 0.59 mg/dL (0.52-1.25); GLUCOSE 67 mg/dL (75-110); POTASSIUM 3.3 mmol/L (3.6-5.0); SODIUM 139.1 mmol/L (137-145); TOTAL PROTEIN 5.1 g/dL (6.3-8.2)
[2017-02-28] MEDS: METRONIDAZOLE 500 MG TABLET PO SCH ×3 (06:29→22:08)
[2017-02-28] MEDS: GABAPENTIN 300 MG CAPSULE PO SCH ×3 (06:29→22:08)
[2017-02-28] MEDS ORDERED: POTASSIUM CHLORIDE 10 MEQ TABLET.SA PO ONE ×2 (08:00→10:05)
[2017-02-28] MEDS: IPRATROPIUM/ALBUTEROL 0.5-2.5 MG/3 ML AMPUL NEB SCH ×2 (08:12→16:36)
--- NOTE | 2017-02-28 09:38 | PDOC PROGRESS REPORT ---
Subjective Progress Note for:: 02/28/17 Subjective:: Patient states that he is upset this morning that his pain medication has been decreased. Patient also reports that he is more short of breath this morning. Nursing called yesterday to report that patient was unsteady on feet and blood pressure was low. Nurse states that she held patient's pain medication. Physical Exam Vital Signs: Temp Pulse Resp BP Pulse Ox 99.7 F 90 16 110/53 L 97 02/28/17 07:36 02/28/17 08:12 02/28/17 08:12 02/28/17 07:36 02/28/17 08:22 Intake & Output 02/27/17 02/28/17 03/01/17 06:59 06:59 06:59 Intake Total 1688 4727 Output Total 875 4325 Balance 813 402 Weight 67.7 kg 68 kg General appearance: PRESENT: no acute distress, cooperative, well-developed, well-nourished Head exam: PRESENT: atraumatic, normocephalic Eye exam: PRESENT: conjunctiva pink, EOMI Ear exam: PRESENT: normal external ear exam Mouth exam: PRESENT: moist Neck exam: ABSENT: carotid bruit, JVD, lymphadenopathy, thyromegaly Respiratory exam: PRESENT: other - Patient with crackles heard in right upper quadrant patient also with crackles at bases. Cardiovascular exam: PRESENT: RRR. ABSENT: diastolic murmur, rubs, systolic murmur Pulses: PRESENT: normal dorsalis pedis pul Vascular exam: PRESENT: normal capillary refill GI/Abdominal exam: PRESENT: normal bowel sounds, soft. ABSENT: distended, guarding, mass, organolmegaly, rebound, tenderness Extremities exam: PRESENT: full ROM. ABSENT: calf tenderness, clubbing, pedal edema Neurological exam: PRESENT: alert, awake, oriented to person, oriented to place , oriented to time, oriented to situation, CN II-XII grossly intact. ABSENT: motor sensory deficit Psychiatric exam: PRESENT: flat affect Skin exam: PRESENT: dry, warm Results Laboratory Results: 02/28/17 04:57 02/28/17 04:57 02/27/17 02/27/17 02/28/17 09:15 15:05 04:57 WBC 15.0 H RBC 3.47 L Hgb 9.5 L Hct 29.0 L MCV 84 MCH 27.4 MCHC 32.8 RDW 17.9 H Plt Count 643 H Seg Neutrophils % 59.6 Lymphocytes % 28.1 Monocytes % 9.1 Eosinophils % 2.5 Basophils % 0.7 Absolute Neutrophils 8.9 H Absolute Lymphocytes 4.2 Absolute Monocytes 1.4 Absolute Eosinophils 0.4 Absolute Basophils 0.1 Sodium Potassium 4.2 D Chloride Carbon Dioxide Anion Gap BUN Creatinine Est GFR ( Amer) Est GFR (Non-Af Amer) Glucose Calcium Iron < 10.1 L TIBC 179 L % Saturation UNABLE TO CALCULATE Ferritin 179.00 Total Bilirubin AST ALT Alkaline Phosphatase Total Protein Albumin Vitamin B12 261.0 Folate 16.80 02/28/17 04:57 WBC RBC Hgb Hct MCV MCH MCHC RDW Plt Count Seg Neutrophils % Lymphocytes % Monocytes % Eosinophils % Basophils % Absolute Neutrophils Absolute Lymphocytes Absolute Monocytes Absolute Eosinophils Absolute Basophils Sodium 139.1 Potassium 3.3 L Chloride 103 Carbon Dioxide 31 H Anion Gap 5 BUN 6 L Creatinine 0.59 Est GFR ( Amer) > 60 Est GFR (Non-Af Amer) > 60 Glucose 67 L Calcium 8.1 L Iron TIBC % Saturation Ferritin Total Bilirubin 0.5 AST 16 L ALT 19 L Alkaline Phosphatase 113 Total Protein 5.1 L Albumin 2.3 L Vitamin B12 Folate Impressions: Pelvis CT 02/21/17 16:43 IMPRESSION: Findings consistent with the clinical history of multiple perianal abscesses as noted above. Chest X-Ray 02/25/17 00:00 IMPRESSION: Diffuse bilateral alveolar and interstitial infiltrates worrisome for either atypical pneumonia or pulmonary edema. This report was called to Dr. Resendez, 1810 hours, 02/25/[address] 02/26/17 08:00 IMPRESSION: DIFFUSE GROUND-GLASS AIRSPACE DISEASE WITH A FEW NODULAR OPACITIES IN THE RIGHT UPPER LOBE ALONG WITH TRACE BILATERAL PLEURAL EFFUSIONS. FINDINGS COULD REPRESENT ATYPICAL INFECTIOUS OR INFLAMMATORY PNEUMONITIS. ARDS/SIRS SHOULD ALSO BE CONSIDERED GIVEN KNOWN PERIANAL ABSCESSES. Assessment & Plan - Diagnosis (1) Acute and chronic respiratory failure Qualifiers: Respiratory failure complication: hypoxia Qualified Code(s): J96.21 - Acute and chronic respiratory failure with hypoxia Is this a current diagnosis for this admission?: Yes Plan: Pt's CT of chest demonstrated possible Atypical infectious or inflammotory pneumonitis. Read also includes ARDS/SIRS pt noted to have diffuse ground glass airspace disease. Will continue Zosyn. Pt WBC have decrease. Will discontinue IV fluids and give 20 mg of IV Lasix. Will reevaluate later today. (2) Sepsis Qualifiers: Sepsis type: sepsis due to unspecified organism Qualified Code(s): A41.9 - Sepsis, unspecified organism Is this a current diagnosis for this admission?: Yes Plan: Will continue antibiotic treatment. Sepsis resolving patient's white blood cell count 15 today. (3) Abscess or cellulitis of perineum Is this a current diagnosis for this admission?: Yes Plan: Will continue antibiotic treatment. Will have PICC line placed. Pt will need IV ABX for at least 21 days total infection continues to improve. Plan to continue Zosyn for the next 2-3 days and then will continue placing patient on ertapenem for discharge home. Patient will need IV antibiotics given the severity of patient's wounds to promote healing. (4) Hypotension Qualifiers: Hypotension type: other hypotension type Qualified Code(s): I95.89 - Other hypotension Is this a current diagnosis for this admission?: Yes Plan: Secondary to Sepsis and pain medication: We will discontinue IV fluids today. Patient's blood pressure has improved. Patient's pain medication was decreased. (5) Hypokalemia Is this a current diagnosis for this admission?: Yes Plan: We will give p.o. potassium replacement. Will check BMP in a.m. (6) Hypomagnesemia Is this a current diagnosis for this admission?: Yes Plan: We will check magnesium in a.m. (7) Pneumonia Qualifiers: Pneumonia type: due to unspecified organism Laterality: right Lung location: upper lobe of lung Qualified Code(s): J18.1 - Lobar pneumonia, unspecified organism Is this a current diagnosis for this admission?: Yes Plan: Zosyn. Awaiting results of chest x-ray. We will continue current antibiotics. Patient's O2 sat requirement has not decreased. Will give IV Lasix to see if respiratory function improves. (8) Malnutrition of moderate degree Is this a current diagnosis for this admission?: Yes Plan: Will add Glucerna with each meal. (9) Leukocytosis Is this a current diagnosis for this admission?: Yes Plan: Secondary to Sepsis and Steroids: Will continue Zosyn. WBC decrease this morning on CBC. Will monitor closely. (10) Crohns disease Qualifiers: Gastrointestinal tract location: unspecified location Is this a current diagnosis for this admission?: Yes Plan: Will decrease prednisone 10 mg PO Qdaily. (11) Diabetes mellitus Qualifiers: Diabetes mellitus type: type 2 Is this a current diagnosis for this admission?: Yes Plan: Will continue current treatment plan. - Time Time Spent with patient: 25-34 minutes
[2017-02-28] MEDS: INSULIN REG, HUMAN 100 UNIT/ML 3 ML VIAL (PYX) SUBCUT SCH ×7 (09:46→23:06)
[2017-02-28] MEDS ORDERED: FUROSEMIDE INJ/PF 20 MG/2 ML SDV IV ONE (10:05)
[2017-02-28] MEDS: PREDNISONE 10 MG TABLET PO SCH (10:23)
[2017-02-28] MEDS: MORPHINE SULFATE SR 30 MG TABLET PO SCH (10:32)
[2017-02-28] MEDS: CROMOLYN SODIUM NASAL SPRAY (5.2 MG/SPRAY) 26 ML NASL SCH (10:32)
[2017-02-28] MEDS: FLUTICASONE NASAL SPRAY 50 MCG/SPRY 120 SPRAY/16 GM NASL SCH (10:32)
[2017-02-28] MEDS: OXYCODONE HCL IR 5 MG TABLET PO PRN ×3 (12:32→21:14)
[2017-02-28] MEDS ORDERED: ENOXAPARIN SODIUM INJ 40 MG/0.4 ML DISP.SYRIN SUBCUT ONE (14:00)
--- NOTE | 2017-02-28 15:27 | RADIOLOGY REPORT (SQ) ---
EXAM DESCRIPTION: CHEST PA/LAT COMPLETED DATE/TIME: 02/28/2017 2:29 pm REASON FOR STUDY: Pneumonia COMPARISON: 02/25/2017 EXAM PARAMETERS: NUMBER OF VIEWS: two views TECHNIQUE: Digital Frontal and Lateral radiographic views of the chest acquired. RADIATION DOSE: NA LIMITATIONS: none FINDINGS: LUNGS AND PLEURA: Interstitial changes are present. There is decreased pulmonary edema co mpared to the earlier study. No focal infiltrate is appreciated. MEDIASTINUM AND HILAR STRUCTURES: No masses or contour abnormalities. HEART AND VASCULAR STRUCTURES: The heart size is borderline. There is no CHF BONES: No acute findings. HARDWARE: None in the chest. OTHER: No other significant finding. IMPRESSION: Borderline cardiomegaly with chronic interstitial changes but no CHF no localized pneumo darrion. The overall appearance of the chest shows slight improvement. TECHNICAL DOCUMENTATION: JOB ID: [id number] [employer]- All Rights Reserved
[2017-02-28] MEDS: ALPRAZOLAM 0.5 MG TABLET PO PRN (21:14)
[2017-02-28] MEDS: INSULIN GLARGINE,HUM.REC.ANLOG 300 UNIT/3 ML INSULN.PEN SUBCUT SCH (22:40)
[2017-03-01] MEDS: PIPERACILLIN SODIUM/TAZOBACTAM 3.375 GM in NORMAL SALINE 100 ML IV SCH ×4 (00:21→20:28)
[2017-03-01] MEDS: IPRATROPIUM/ALBUTEROL 0.5-2.5 MG/3 ML AMPUL NEB SCH ×4 (00:22→23:38)
[2017-03-01] MEDS: MORPHINE SULFATE SR 30 MG TABLET PO SCH ×3 (03:38→21:05)
[2017-03-01 05:38] LABS: ABSOLUTE BASOPHILS # (AUTO) 0.1 10^3/uL (0.0-0.2); ABSOLUTE EOSINOPHILS # (AUTO) 0.5 10^3/uL (0.0-0.6); ABSOLUTE LYMPHOCYTES (AUTO) 3.6 10^3/uL (0.5-4.7); ABSOLUTE NEUT (AUTO) 5.6 10^3/uL (1.7-8.2); BASOPHILS % (AUTO) 1.1 % (0-2); EOSINOPHILS % (AUTO) 4.3 % (0-6); HEMATOCRIT 28.9 % (37.9-51.0); HEMOGLOBIN 9.6 g/dL (13.5-17.0); HGB HCT DIFFERENCE -0.1; LYMPHOCYTES % (AUTO) 33.5 % (13-45); MEAN CORPUSCULAR HEMOGLOBIN 27.7 pg (27.0-33.4); MEAN CORPUSCULAR HGB CONC 33.2 g/dL (32.0-36.0); MEAN CORPUSCULAR VOLUME 83 fl (80-97); MONOCYTES % (AUTO) 9.6 % (3-13); RED BLOOD COUNT 3.46 10^6/uL (4.35-5.55); RED CELL DISTRIBUTION WIDTH 17.7 % (11.5-14.0); SEGMENTED NEUTROPHILS % (AUTO) 51.5 % (42-78); WHITE BLOOD COUNT 10.9 10^3/uL (4.0-10.5)
[2017-03-01] MEDS: METRONIDAZOLE 500 MG TABLET PO SCH ×3 (05:39→21:04)
[2017-03-01] MEDS: GABAPENTIN 300 MG CAPSULE PO SCH ×3 (05:39→21:04)
[2017-03-01 05:54] LABS: ANION GAP 5 (5-19); BLOOD UREA NITROGEN 8 mg/dL (7-20); CALCIUM 8.2 mg/dL (8.4-10.2); CARBON DIOXIDE 30 mmol/L (22-30); CHLORIDE 99 mmol/L (98-107); CREATININE RESULT 0.58 mg/dL (0.52-1.25); GLUCOSE 228 mg/dL (75-110); MAGNESIUM 1.9 mg/dL (1.6-2.3); POTASSIUM 3.6 mmol/L (3.6-5.0); SODIUM 133.8 mmol/L (137-145)
[2017-03-01] MEDS: INSULIN REG, HUMAN 100 UNIT/ML 3 ML VIAL (PYX) SUBCUT SCH ×7 (08:47→21:57)
[2017-03-01] MEDS: OXYCODONE HCL IR 5 MG TABLET PO PRN ×2 (08:55→16:34)
[2017-03-01] MEDS ORDERED: FUROSEMIDE 20 MG TABLET PO ONE (08:59)
[2017-03-01] MEDS: FLUTICASONE NASAL SPRAY 50 MCG/SPRY 120 SPRAY/16 GM NASL SCH (09:01)
[2017-03-01] MEDS: CROMOLYN SODIUM NASAL SPRAY (5.2 MG/SPRAY) 26 ML NASL SCH (09:01)
[2017-03-01] MEDS: PREDNISONE 10 MG TABLET PO SCH (09:45)
--- NOTE | 2017-03-01 12:07 | PDOC PROGRESS REPORT ---
Subjective Progress Note for:: 03/01/17 Subjective:: Pt states that he is having pain issues. Pt states that he is feeling better. Nursing states that he is breathing better after lasix yesterday. Physical Exam Vital Signs: Temp Pulse Resp BP Pulse Ox 98.6 F 66 18 115/64 96 03/01/17 07:33 03/01/17 07:56 03/01/17 07:56 03/01/17 07:33 03/01/17 07:56 Intake & Output 02/28/17 03/01/17 03/02/17 06:59 06:59 06:59 Intake Total 4727 1382 Output Total 4325 2650 Balance 402 -1268 Weight 68 kg 68.2 kg General appearance: PRESENT: no acute distress Head exam: PRESENT: atraumatic, normocephalic Eye exam: PRESENT: conjunctiva pink, EOMI, PERRLA. ABSENT: scleral icterus Ear exam: PRESENT: normal external ear exam Mouth exam: PRESENT: moist, tongue midline Neck exam: ABSENT: carotid bruit, JVD, lymphadenopathy, thyromegaly Respiratory exam: PRESENT: clear to auscultation [place]. ABSENT: rales, rhonchi, wheezes Cardiovascular exam: PRESENT: RRR. ABSENT: diastolic murmur, rubs, systolic murmur Pulses: PRESENT: normal dorsalis pedis pul Vascular exam: PRESENT: normal capillary refill GI/Abdominal exam: PRESENT: normal bowel sounds, soft. ABSENT: distended, guarding, mass, organolmegaly, rebound, tenderness Extremities exam: PRESENT: full ROM. ABSENT: calf tenderness, clubbing, pedal edema Musculoskeletal exam: PRESENT: full ROM Neurological exam: PRESENT: alert, awake, oriented to person, oriented to place , oriented to time, oriented to situation, CN II-XII grossly intact. ABSENT: motor sensory deficit Skin exam: PRESENT: dry, warm Results Laboratory Results: 03/01/17 05:09 03/01/17 05:09 03/01/17 03/01/17 05:09 05:09 WBC 10.9 H RBC 3.46 L Hgb 9.6 L Hct 28.9 L MCV 83 MCH 27.7 MCHC 33.2 RDW 17.7 H Plt Count 697 H Seg Neutrophils % 51.5 Lymphocytes % 33.5 Monocytes % 9.6 Eosinophils % 4.3 Basophils % 1.1 Absolute Neutrophils 5.6 Absolute Lymphocytes 3.6 Absolute Monocytes 1.0 Absolute Eosinophils 0.5 Absolute Basophils 0.1 Sodium 133.8 L Potassium 3.6 Chloride 99 Carbon Dioxide 30 Anion Gap 5 BUN 8 Creatinine 0.58 Est GFR ( Amer) > 60 Est GFR (Non-Af Amer) > 60 Glucose 228 H Calcium 8.2 L Magnesium 1.9 Impressions: Pelvis CT 02/21/17 16:43 IMPRESSION: Findings consistent with the clinical history of multiple perianal abscesses as noted above. Chest CT 02/26/17 08:00 IMPRESSION: DIFFUSE GROUND-GLASS AIRSPACE DISEASE WITH A FEW NODULAR OPACITIES IN THE RIGHT UPPER LOBE ALONG WITH TRACE BILATERAL PLEURAL EFFUSIONS. FINDINGS COULD REPRESENT ATYPICAL INFECTIOUS OR INFLAMMATORY PNEUMONITIS. ARDS/SIRS SHOULD ALSO BE CONSIDERED GIVEN KNOWN PERIANAL ABSCESSES. Chest X-Ray 02/28/17 06:00 IMPRESSION: Borderline cardiomegaly with chronic interstitial changes but no CHF no localized pneumonia. The overall appearance of the chest shows slight improvement. Assessment & Plan - Diagnosis (1) Acute and chronic respiratory failure Qualifiers: Respiratory failure complication: hypoxia Qualified Code(s): J96.21 - Acute and chronic respiratory failure with hypoxia Is this a current diagnosis for this admission?: Yes Plan: Resolving. Patient was given 40 mg of IV Lasix and has diuresed well. We will give an additional 10 mg p.o. X 1 of Lasix. Will obtain CTA of chest to evaluate for PE. (2) Sepsis Qualifiers: Sepsis type: sepsis due to unspecified organism Qualified Code(s): A41.9 - Sepsis, unspecified organism Is this a current diagnosis for this admission?: Yes (3) Abscess or cellulitis of perineum Is this a current diagnosis for this admission?: Yes Plan: Will continue antibiotic treatment. Will have PICC line placed. Pt will need IV ABX for at least 21 days total infection continues to improve. Plan to continue Zosyn for the next 2 days and then will continue placing patient on ertapenem for discharge home. Patient will need IV antibiotics given the severity of patient's wounds to promote healing. (4) Hypotension Qualifiers: Hypotension type: other hypotension type Qualified Code(s): I95.89 - Other hypotension Is this a current diagnosis for this admission?: Yes Plan: Secondary to Sepsis and pain medication: Resolved will monitor. (5) Hypokalemia Is this a current diagnosis for this admission?: Yes Plan: Resolved (6) Hypomagnesemia Is this a current diagnosis for this admission?: Yes Plan: Resolved (7) Pneumonia Qualifiers: Pneumonia type: due to unspecified organism Laterality: right Lung location: upper lobe of lung Qualified Code(s): J18.1 - Lobar pneumonia, unspecified organism Is this a current diagnosis for this admission?: Yes Plan: Zosyn. CTA of chest pending. Will obtain information about formal report stating that patient could have pneumonia. (8) Malnutrition of moderate degree Is this a current diagnosis for this admission?: Yes Plan: Glucerna (9) Leukocytosis Is this a current diagnosis for this admission?: Yes Plan: Secondary to Sepsis and Steroids: Will continue Zosyn. Patient's white blood cell count continues to improve. We will continue to monitor. (10) Crohns disease Qualifiers: Gastrointestinal tract location: unspecified location Is this a current diagnosis for this admission?: Yes Plan: Prednisone 10 mg PO Qdaily. (11) Diabetes mellitus Qualifiers: Diabetes mellitus type: type 2 Is this a current diagnosis for this admission?: Yes Plan: Will continue current treatment plan. - Time Time Spent with patient: 15-24 minutes
--- NOTE | 2017-03-01 14:32 | RADIOLOGY REPORT (SQ) ---
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 TECHNIQUE: Fluoroscopic and ultrasound guided PICC placement. LIMITATIONS: None. PROCEDURE: After written consent and assessment were obtained, the patient was brought into the fluo roscopy room and place supine on the table. Ultrasound was used on the patient's left arm for PICC a ccess. The last arm was prepped and draped in a sterile fashion along with the ultrasound probe. The entry site was anesthetized with 4 mL of 1% lidocaine. A 21 gauge 7 cm needle was advanced through th e skin and into the left basilic vein under live ultrasound guidance. An ultrasound image was saved to PACS confirming access site. A .018 guide wire was then inserted through the needle and into the venous system. The needle was the removed and an 11 blade scalpel was used to make a 1cm skin incisio n. A 5 fr peel-away sheath was advanced over the wire and into the venous system. A measurement was then made using the existing wire and live fluoroscopic guidance. The wire was then removed and the t rimmed. The PICC was advanced through the peel-away sheath and into the venous system. The peel-away sheath was removed and the catheter was adhered to the patients arm with a stat lock. The catheter wa s then aspirated and flushed and a sterile bandage was placed over the access site. A fluoroscopic s pot image was saved to PACS confirming the catheter tip within the superior vena cava. IMPRESSION: SUCCESSFUL PLACEMENT OF A 5 FR DUAL LUMEN 45 CM PICC IN THE LEFT BASILIC VEIN. COMMENT: Patient medication list reviewed: Yes- Quality ID# [id number]:Eligible professional attests to doc umenting in the medical record they obtained, updated, or reviewed the patient's current medications. . Quality ID 145: Final reports for procedures using fluoroscopy that document radiation exposure gwen adina, or exposure time and number of fluorographic images (if radiation exposure indices are not avail able) Quality ID #76: The patient was prepped and draped using maximum sterile barrier technique including cap, mask, sterile gown, sterile gloves, a large sterile sheet, hand hygiene, and 2% Chlorhexidine fo r cutaneous antisepsis. When ultrasound is used, sterile ultrasound techniques are followed requiring sterile gel and sterile probes. TECHNICAL DOCUMENTATION: JOB ID: [id number] [email or web address]- All Rights Reserved
[2017-03-01] MEDS: ENOXAPARIN SODIUM INJ 40 MG/0.4 ML DISP.SYRIN SUBCUT SCH (14:40)
--- NOTE | 2017-03-01 14:54 | RADIOLOGY REPORT (SQ) ---
EXAM DESCRIPTION: CTA CHEST COMPLETED DATE/TIME: 03/01/2017 2:31 pm REASON FOR STUDY: Shortness of breath COMPARISON: Chest film 02/28/2017, 05/01/2016, 07/08/2015 CT abdomen pelvis 05/01/2016 CT chest 02/26/2017 TECHNIQUE: CT scan of the chest performed using helical scanning technique with dynamic intravenous contrast injection. Images reviewed with lung, soft tissue and bone windows. Reconstructed coronal and sagittal MPR images reviewed. Additional 3 dimensional post-processing performed to develop Maximal Intensity Projection images (IN P). All images stored on PACS. All CT scanners at this facility use dose modulation, iterative reconstruction, and/or weight based d osing when appropriate to reduce radiation dose to as low as reasonably achievable (ALARA). [facility]: Dose Right [facility]: CareDose [facility]: Dose Right [facility]: Teradose 4D [facility]: Runivermag CONTRAST TYPE AND DOSE: contrast/concentration: Isovue 370.00 mg/ml; Total Contrast Delivered: 61.0 ml; Total Saline Delivered: 106.0 ml RENAL FUNCTION: Creatinine 0.6 RADIATION DOSE: Up-to-date CT equipment and radiation dose reduction techniques were employed. CTDIv ol: 9.4 - 13.2 mGy. DLP: 490 mGy-cm. . LIMITATIONS: None. FINDINGS: LUNGS AND PLEURA: Lung parenchyma is diffusely abnormal, with bilateral diffuse airspace d isease in a ground-glass opacity pattern, with thickened interlobular septa. Few small less than 5 m m subpleural noncalcified nodules in the right lung axial image 19, 23, 27, and 35. These findings a re similar compared to 02/26/2017, and view compared to CT abdomen pelvis 05/01/2016. There are trace bilateral pleural effusions. No pleural calcification. No pneumothorax. AORTA AND GREAT VESSELS: No aneurysm or dissection. HEART: No pericardial effusion. PULMONARY ARTERIES: No emboli visualized in the main pulmonary arteries or the segmental branches. HILAR AND MEDIASTINAL STRUCTURES: No identified masses or abnormal nodes. HARDWARE: Left-sided PICC line tip superior vena cava UPPER ABDOMEN: Small hiatal hernia. 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 No adenopathy. BONES: T7 vertebral body 50% compression deformity unchanged from chest films 07/08/2015. 3D MIPS: Confirm above findings. OTHER: No other significant finding. IMPRESSION: Diffuse alveolar and interstitial infiltrates. Findings could represent atypical pneumo darrion or fluid overload/congestive failure. This pattern is similar compared to CT chest 02/26/2017. No CT angio evidence of acute pulmonary emboli to the main, right or left lobar, or proximal segmenta l pulmonary arteries. TECHNICAL DOCUMENTATION: JOB ID: [id number] Quality ID # [id number]: Final reports with documentation of one or more dose reduction techniques (e.g., Au tomated exposure control, adjustment of the mA and/or kV according to patient size, use of iterative reconstruction technique) 2010 [employer]- All Rights Reserved
[2017-03-01] MEDS ORDERED: NORMAL SALINE 10 ML SDV (AFTER EACH USE) IV PRN (19:49)
[2017-03-01] MEDS: NORMAL SALINE 10 ML SDV (SCHEDULED) IV SCH (21:04)
[2017-03-01] MEDS: INSULIN GLARGINE,HUM.REC.ANLOG 300 UNIT/3 ML INSULN.PEN SUBCUT SCH (21:53)
[2017-03-02] MEDS: OXYCODONE HCL IR 5 MG TABLET PO PRN ×3 (00:08→12:28)
[2017-03-02] MEDS: PIPERACILLIN SODIUM/TAZOBACTAM 3.375 GM in NORMAL SALINE 100 ML IV SCH (02:42)
[2017-03-02] MEDS: HYDROMORPHONE HCL INJ/PF 2 MG/ML AMPULE IV PRN (02:58)
[2017-03-02 04:24] LABS: ABSOLUTE BASOPHILS # (AUTO) 0.1 10^3/uL (0.0-0.2); ABSOLUTE EOSINOPHILS # (AUTO) 0.4 10^3/uL (0.0-0.6); ABSOLUTE LYMPHOCYTES (AUTO) 3.6 10^3/uL (0.5-4.7); ABSOLUTE NEUT (AUTO) 5.1 10^3/uL (1.7-8.2); BASOPHILS % (AUTO) 0.9 % (0-2); EOSINOPHILS % (AUTO) 3.7 % (0-6); HEMATOCRIT 28.9 % (37.9-51.0); HEMOGLOBIN 9.5 g/dL (13.5-17.0); HGB HCT DIFFERENCE -0.4; LYMPHOCYTES % (AUTO) 35.5 % (13-45); MEAN CORPUSCULAR HEMOGLOBIN 27.8 pg (27.0-33.4); MEAN CORPUSCULAR HGB CONC 32.8 g/dL (32.0-36.0); MEAN CORPUSCULAR VOLUME 85 fl (80-97); MONOCYTES % (AUTO) 9.9 % (3-13); RED CELL DISTRIBUTION WIDTH 17.6 % (11.5-14.0); WHITE BLOOD COUNT 10.2 10^3/uL (4.0-10.5)
[2017-03-02 04:32] LABS: ALANINE AMINOTRANSFERASE 19 U/L (21-72); ALBUMIN 2.4 g/dL (3.5-5.0); ALKALINE PHOSPHATASE 141 U/L (38-126); ANION GAP 7 (5-19); ASPARTATE AMINO TRANSFERASE 9 U/L (17-59); BILIRUBIN,DIRECT 0.3 mg/dL (0.0-0.4); BILIRUBIN,TOTAL 0.3 mg/dL (0.2-1.3); BLOOD UREA NITROGEN 9 mg/dL (7-20); CALCIUM 8.3 mg/dL (8.4-10.2); CARBON DIOXIDE 31 mmol/L (22-30); CHLORIDE 99 mmol/L (98-107); GLUCOSE 193 mg/dL (75-110); POTASSIUM 3.7 mmol/L (3.6-5.0); SODIUM 137.1 mmol/L (137-145); TOTAL PROTEIN 5.3 g/dL (6.3-8.2)
[2017-03-02] MEDS: METRONIDAZOLE 500 MG TABLET PO SCH (05:08)
[2017-03-02] MEDS: GABAPENTIN 300 MG CAPSULE PO SCH ×2 (05:08→13:35)
[2017-03-02] MEDS: IPRATROPIUM/ALBUTEROL 0.5-2.5 MG/3 ML AMPUL NEB SCH ×2 (08:09→15:35)
[2017-03-02] MEDS: INSULIN REG, HUMAN 100 UNIT/ML 3 ML VIAL (PYX) SUBCUT SCH ×4 (09:05→12:28)
[2017-03-02] MEDS: ENOXAPARIN SODIUM INJ 40 MG/0.4 ML DISP.SYRIN SUBCUT SCH (09:12)
[2017-03-02] MEDS: MORPHINE SULFATE SR 30 MG TABLET PO SCH (09:13)
[2017-03-02] MEDS: PREDNISONE 10 MG TABLET PO SCH (09:13)
[2017-03-02] MEDS: NORMAL SALINE 10 ML SDV (SCHEDULED) IV SCH (09:15)
[2017-03-02] MEDS: FLUTICASONE NASAL SPRAY 50 MCG/SPRY 120 SPRAY/16 GM NASL SCH (09:17)
[2017-03-02] MEDS: CROMOLYN SODIUM NASAL SPRAY (5.2 MG/SPRAY) 26 ML NASL SCH (09:17)
[2017-03-02] MEDS ORDERED: ERTAPENEM SODIUM 1 GM in NORMAL SALINE 50 ML IV SCH (10:00)
--- NOTE | 2017-03-02 11:37 | PDOC DISCHARGE SUMMARY ---
General - Admit/Disc Date/PCP Admission Date/Primary Care Provider: 02/21/17 17:59 DELROY BAIRESUMATE, Discharge Date: 03/02/17 - Discharge Diagnosis (1) Acute and chronic respiratory failure Is this a current diagnosis for this admission?: Yes Summary: Complicated by hypoxia: Patient had CT a of chest was demonstrated diffuse alveolar interstitial infiltrates possibly related to pneumonia versus volume overload. Patient was given Lasix twice and diuresed approximately 6-7 L of fluid. Patient's O2 sats prior to diuresis was 6 L nasal cannula and then after diuresis patient was on room air with occasional 2 NC. (2) Sepsis Is this a current diagnosis for this admission?: Yes Summary: Secondary to cellulitis of the perineum and left thigh abscess: Patient initially was placed on Flagyl after I&D however patient's white count trended up to 20,000 patient also was noted be hypotensive i.e. findings consistent with worsening sepsis. Patient was then placed on Zosyn and at time of change to ertapenem patient's white count was down to 10,000 due to the severity of patient's wounds in addition to patient's comorbidities feel the patient would benefit from IV antibiotics. Patient is currently scheduled to complete IV antibiotics on March 25 with the goal that patient has demonstrated significant improvement with good granulation tissue and also decrease chance for worsening of infection. Patient will have home health who will do dressing changes, PICC line care, and administer antibiotics. She was given 3 day supply of pain medication patient was instructed that he would need to follow- up with his PCP (3) Abscess or cellulitis of perineum Is this a current diagnosis for this admission?: Yes Summary: Complicated by left thigh abscess: Patient worsened while on Flagyl therefore patient was placed on Zosyn patient's white count has gone from 20,000-10,000 therefore patient will be switched to ertapenem with stop date of March 25. Extended antibiotic treatment is due to the severity of patient's peritoneal wounds and the hope that patient will have good granulation tissue without any further complication of infection. (4) Hypotension Is this a current diagnosis for this admission?: Yes Summary: Secondary to sepsis: Resolved (5) Hypokalemia Is this a current diagnosis for this admission?: Yes Summary: Patient received replacement. Resolved (6) Hypomagnesemia Is this a current diagnosis for this admission?: Yes Summary: Patient has had replacement. Resolved (7) Pneumonia Is this a current diagnosis for this admission?: Yes Summary: Patient currently on ertapenem. (8) Malnutrition of moderate degree Is this a current diagnosis for this admission?: Yes Summary: Patient encouraged to use Glucerna and be adherent to diabetic diet (9) Leukocytosis Is this a current diagnosis for this admission?: Yes Summary: Secondary to sepsis: Resolved (10) Crohns disease Is this a current diagnosis for this admission?: Yes Summary: Pt continued on prednisone (11) Diabetes mellitus Is this a current diagnosis for this admission?: Yes Summary: SSI. - Additional Information Resuscitation Status: Full Code Discharge Diet: Cardiac Discharge Activity: Activity As Tolerated Home Medications: Albuterol Sulfate [Ventolin Hfa] 2 puff IH Q4HP PRN 02/21/17 Alprazolam [Xanax] 2 mg PO Q8 02/21/17 Lisinopril [Prinivil 5 mg Tablet] 5 mg PO DAILY 02/21/17 Morphine Sulfate [Morphine Sulfate ER] 100 mg PO Q8 02/21/17 Ondansetron HCl [Zofran 8 mg Tablet] 8 mg PO Q8HP PRN 02/21/17 Oxycodone HCl 20 mg PO Q4 02/21/17 Oxycodone HCl [Oxycodone HCl 10 MG Tablet] 10 mg PO Q4HP PRN 02/21/17 Insulin Glargine,Hum.rec.anlog [Lantus Insulin 100 Unit/mL] 15 unit SUBCUT QHS # 1 insuln.pen 02/25/17 Insulin Regular, Human [Humulin R (Reg) Insulin 100 unit/mL] 5 unit SUBCUT AC # 100 unit 02/25/17 Metronidazole [Flagyl 500 mg Tablet] 500 mg PO TID #21 tablet 02/25/17 Oxycodone HCl [Oxy-Ir 5 mg Tablet] 10 mg PO Q4HP PRN tablet 02/25/17 Prednisone [Deltasone 20 mg Tablet] 20 mg PO BID tablet 02/25/17 Gabapentin [Neurontin 300 mg Capsule] 600 mg PO Q8 #18 capsule 03/02/17 Heparin Sodium,Porcine [Heparin Flush 10 Unit/ml 5 ml Disp.syrg] 30 unit IV .AFTER EACH USE PRN disp.syrin 03/02/17 Heparin Sodium,Porcine [Heparin Flush 10 Unit/ml 5 ml Disp.syrg] 30 unit IV Q12 disp.syrin 03/02/17 Ipratropium/Albuterol Sulfate [Duoneb 3 ml Ampul] 3 ml [facility] RTQ8 vial.neb Morphine Sulfate [Ms-Contin Sr 30 mg Tablet] 60 mg PO Q12 #6 tablet.sa 03/02/17 Oxycodone HCl [Oxy-Ir 5 mg Tablet] 5 mg PO Q4HP PRN #18 tablet 03/02/17 Ertapenem Sodium [Invanz Inj 1 gm Vial] 1 gm IV DAILY #23 vial 03/25/17 History of Present Illness History of Present Illness: TIA VILLANUEVA is a 51 year old male Pelvic Pain. Hospital Course Hospital Course: Patient is a 51-year-old gentleman who presented to the hospital with complaint of pelvic pain. Patient has history of Crohn's disease and history of hidradenitis. Patient had recently undergone a diverting colonoscopy in 2014 due to perianal fistula and infection. She was admitted to the hospital where he was evaluated by surgery. Surgery took patient to the OR on 02/24/2017 for wound debridement and left thigh abscess I&D. Patient's wound culture demonstrated Bacteroides and PreVotella. The recommendation was made to place patient on Flagyl for 7 days. Patient continued to deteriorate and therefore antibiotic regimen had to be adjusted. Patient was placed back on Zosyn and has done well. Patient's white count initially was 20,000 and is trended down to 10,000. The decision was made to place patient on IV antibiotics due to the severity of patient's wounds in hopes that tissue will have ample time to heal with minimizing risk for infection. Patient stop date for antibiotics is March 25 and the goal at that point is that good wound care would most likely help with good healing. Patient did have electrolyte abnormalities which were corrected during hospital stay. Patient was noted to have diffuse alveolar infiltrate versus pulmonary edema during hospital stay. Patient was given Lasix and diuresed very well patient initially was requiring 6 L nasal cannula and at time of discharge was on room air and occasionally requiring 2 L of nasal cannula. Patient will be discharged home with home health. Physical Exam Vital Signs: Temp Pulse Resp BP Pulse Ox 98.4 F 72 14 126/76 H 96 03/02/17 07:40 03/02/17 08:00 03/02/17 08:00 03/02/17 07:40 03/02/17 08:00 Intake & Output 03/01/17 03/02/17 03/03/17 06:59 06:59 06:59 Intake Total 1382 1601 Output Total 2651 6739 Balance -2566 -9733 Weight 68.2 kg 67.6 kg General appearance: PRESENT: no acute distress, well-developed, well-nourished Head exam: PRESENT: atraumatic Eye exam: PRESENT: conjunctiva pink, EOMI. ABSENT: scleral icterus Ear exam: PRESENT: normal external ear exam Mouth exam: PRESENT: moist, tongue midline Neck exam: ABSENT: carotid bruit, JVD, lymphadenopathy, thyromegaly Respiratory exam: PRESENT: rhonchi - Right upper Lobes Cardiovascular exam: PRESENT: RRR. ABSENT: diastolic murmur, rubs, systolic murmur Pulses: PRESENT: normal dorsalis pedis pul GI/Abdominal exam: PRESENT: normal bowel sounds, soft. ABSENT: distended, guarding, mass, organolmegaly, rebound, tenderness Extremities exam: PRESENT: full ROM. ABSENT: calf tenderness, clubbing, pedal edema Neurological exam: PRESENT: alert, awake, oriented to person, oriented to place , oriented to time, oriented to situation, CN II-XII grossly intact. ABSENT: motor sensory deficit Psychiatric exam: PRESENT: appropriate affect, normal mood. ABSENT: homicidal ideation, suicidal ideation Results Laboratory Results: 03/02/17 04:00 03/02/17 04:00 02/27/17 03/02/17 03/02/17 09:15 04:00 04:00 WBC 10.2 RBC 3.40 L Hgb 9.5 L Hct 28.9 L MCV 85 MCH 27.8 MCHC 32.8 RDW 17.6 H Plt Count 614 H Seg Neutrophils % 50.0 Lymphocytes % 35.5 Monocytes % 9.9 Eosinophils % 3.7 Basophils % 0.9 Absolute Neutrophils 5.1 Absolute Lymphocytes 3.6 Absolute Monocytes 1.0 Absolute Eosinophils 0.4 Absolute Basophils 0.1 Sodium 137.1 Potassium 3.7 Chloride 99 Carbon Dioxide 31 H Anion Gap 7 BUN 9 Creatinine 0.60 Est GFR ( Amer) > 60 Est GFR (Non-Af Amer) > 60 Glucose 193 H Calcium 8.3 L Transferrin 110 L Total Bilirubin 0.3 AST 9 L ALT 19 L Alkaline Phosphatase 141 H Total Protein 5.3 L Albumin 2.4 L Impressions: Pelvis CT 02/21/17 16:43 IMPRESSION: Findings consistent with the clinical history of multiple perianal abscesses as noted above. Chest CT 02/26/17 08:00 IMPRESSION: DIFFUSE GROUND-GLASS AIRSPACE DISEASE WITH A FEW NODULAR OPACITIES IN THE RIGHT UPPER LOBE ALONG WITH TRACE BILATERAL PLEURAL EFFUSIONS. FINDINGS COULD REPRESENT ATYPICAL INFECTIOUS OR INFLAMMATORY PNEUMONITIS. ARDS/SIRS SHOULD ALSO BE CONSIDERED GIVEN KNOWN PERIANAL ABSCESSES. Chest X-Ray 02/28/17 06:00 IMPRESSION: Borderline cardiomegaly with chronic interstitial changes but no CHF no localized pneumonia. The overall appearance of the chest shows slight improvement. Chest/Abdomen CTA 03/01/17 00:00 IMPRESSION: Diffuse alveolar and interstitial infiltrates. Findings could represent atypical pneumonia or fluid overload/congestive failure. This pattern is similar compared to CT chest 02/26/2017. No CT angio evidence of acute pulmonary emboli to the main, right or left lobar , or proximal segmental pulmonary arteries. Guidance Fluoroscopy 03/01/17 00:00 IMPRESSION: SUCCESSFUL PLACEMENT OF A 5 FR DUAL LUMEN 45 CM PICC IN THE LEFT BASILIC VEIN. Interventional Vascular Procedure 03/01/17 00:00 IMPRESSION: SUCCESSFUL PLACEMENT OF A 5 FR DUAL LUMEN 45 CM PICC IN THE LEFT BASILIC VEIN. PICC Line Insertion 03/01/17 00:00 IMPRESSION: SUCCESSFUL PLACEMENT OF A 5 FR DUAL LUMEN 45 CM PICC IN THE LEFT BASILIC VEIN. Qualifiers PATEINT BEING DISCHARGED WITH ANY OF THE FOLLOWING DIAGNOSIS?: No VTE patient discharged on overlapping Therapy?: Yes Plan Time Spent: Greater than 30 Minutes - 45 mins.
[2017-03-02 15:55] VITALS: BP 111/73
== END 2017-03-02 16:37 | disposition home health service (06) | DRG 853 ==
LOC: ER 13:34 → EH 17:59 → UNDOADMIN 19:45 → 3W 22:07
PROVIDERS: ADMIT Family Medicine; ATTEND Family Medicine
PROC: 0H99XZZ Drainage of Perineum Skin, External Approach (ICD-10-PCS; 2017-02-22)
PROC: 0H99XZZ Drainage of Perineum Skin, External Approach (ICD-10-PCS; 2017-02-22)
PROC: 0H9JXZZ Drainage of Left Upper Leg Skin, External Approach (ICD-10-PCS; 2017-02-22)
PROC: 0H99XZZ Drainage of Perineum Skin, External Approach (ICD-10-PCS; principal; 2017-02-22 16:45)
PROC: 02HV33Z Insertion of Infusion Device into Superior Vena Cava, Percutaneous Approach (ICD-10-PCS; 2017-03-01)
PROC: B518ZZA Fluoroscopy of Superior Vena Cava, Guidance (ICD-10-PCS; 2017-03-01)
PROC: B548ZZA Ultrasonography of Superior Vena Cava, Guidance (ICD-10-PCS; 2017-03-01)
DX: A41.9 Sepsis, unspecified organism (principal); R65.21 Severe sepsis with septic shock; J96.21 Acute and chronic respiratory failure with hypoxia; J18.1 Lobar pneumonia, unspecified organism; L02.31 Cutaneous abscess of buttock; L02.215 Cutaneous abscess of perineum; K50.90 Crohn's disease, unspecified, without complications; E44.0 Moderate protein-calorie malnutrition; I10 Essential (primary) hypertension; L73.2 Hidradenitis suppurativa; D64.9 Anemia, unspecified; E11.65 Type 2 diabetes mellitus with hyperglycemia; G89.4 Chronic pain syndrome; E87.6 Hypokalemia; E83.42 Hypomagnesemia; G40.909 Epilepsy, unspecified, not intractable, without status epilepticus; F17.210 Nicotine dependence, cigarettes, uncomplicated; I25.2 Old myocardial infarction; Z93.3 Colostomy status; Z68.23 Body mass index [BMI] 23.0-23.9, adult
CPT/HCPCS: 36415; 36569; 71020; 71250; 71275; 72193; 76937; 77001; 80048; 80053; 80202; 81001; 82607; 82728; 82746; 82803; 82962; 83036; 83540; 83550; 83605; 83735; 84100; 84132; 84466; 85025; 85045; 85610; 86701; 87040; 87070; 87075; 87077; 87086; 87205; 902; 93005; 93010; 94640; 96361; 96365; 96372; 96375; 99285; A6266; C1769; J0131; J1170; J1335; J1642; J1650; J1720; J1815; J1885; J1940; J1956; J2250; J2270; J2543; J2704; J3010; J3370; J3475; J3480; J3490; J7030; J7060; J7512; J7620

== ENCOUNTER 2017-08-24 14:24 | Inpatient (IN) | payer MEDICARE, MEDICAID ==
--- NOTE | 2017-08-24 14:31 | ER Document Report ---
ED General <PANFILO ANN - Last Filed: 08/24/17 16:24> - General Mode of Arrival: Medic Information source: Emergency Med Personnel Cannot obtain history due to: Altered mental status TRAVEL OUTSIDE OF THE [place] IN LAST 30 DAYS: No - HPI Onset: Other - UNKNOWN, LAST SEEN 5 DAYS AGO, BY FAMILY Recently seen / treated by doctor: No <CLEO MORRISON - Last Filed: 08/25/17 00:37> - General Stated Complaint: UNRESPONSIVE Time Seen by Provider: 08/24/17 14:30 - Related Data Allergies/Adverse Reactions: atropine sulfate [From Lomotil] Allergy (Verified 02/21/17 13:49) diphenoxylate HCl [From Lomotil] Allergy (Verified 02/21/17 13:49) erythromycin base [Erythromycin Base] Allergy (Verified 02/21/17 13:49) paroxetine HCl [From Paxil] Allergy (Verified 02/21/17 13:49) sulfamethoxazole [From Bactrim] Allergy (Verified 02/21/17 13:49) trimethoprim [From Bactrim] Allergy (Verified 02/21/17 13:49) Past Medical History - General Information source: Emergency Med Personnel, [facility] Records - Social History Smoking Status: Unknown if Ever Smoked Lives with: Alone Family History: Other - Crohn's-sister - Past Medical History Cardiac Medical History: Reports: Hx Heart Attack - NOVEMBER 2014, Hx Hypertension Denies: Hx Coronary Artery Disease Pulmonary Medical History: Reports: Hx Asthma, Hx Pneumonia Denies: Hx Bronchitis, Hx COPD Neurological Medical History: Reports: Hx Seizures. Denies: Hx Cerebrovascular Accident Endocrine Medical History: Reports: Hx Diabetes Mellitus Type 2 Renal/ Medical History: Denies: Hx Peritoneal Dialysis GI Medical History: Reports: Hx Crohn's Disease Musculoskeltal Medical History: Reports Hx Arthritis Skin Medical History: Reports Other - RECURRENT CELLULITIS & ABSCESS FORMATION IN PERINEAL, GENITAL, AND GLUTEAL Past Surgical History: Reports: Hx Colostomy - Immunizations Hx Diphtheria, Pertussis, Tetanus Vaccination: Yes <CLEO MORRISON - Last Filed: 08/25/17 00:37> Review of Systems - Review of Systems -: Yes ROS unobtainable due to patient's medical condition <CLEO MORRISON - Last Filed: 08/25/17 00:37> Physical Exam <PANFILO ANN - Last Filed: 08/24/17 16:24> - Vital signs Interpretation: Tachycardic, Tachypneic. No: Febrile - HYPOTHERMIC - General General appearance: Lethargic In distress: Mild - HEENT Head: Normocephalic Eyes: Normal Conjunctiva: Normal Pupils: PERRL Ears: Normal Nasal: Normal Mouth/Lips: Normal Mucous membranes: Dry Pharynx: Normal Neck: Normal - Respiratory Respiratory status: No respiratory distress, Tachypnea Breath sounds: Normal - Cardiovascular Rhythm: Regular, Tachycardia Heart sounds: Normal auscultation Murmur: No - Abdominal Inspection: Normal Distension: No distension Bowel sounds: Hypoactive - Genitourinary Scrotum: Swelling - Back Back: Other - DECUBITI OVER SACRUM, VERTEBRAE T5, T6, T7, T8. - Extremities General upper extremity: Normal inspection General lower extremity: Other - ABSCESSED AREAS DRAINING PURULENCE ON BOTH PROX. THIGHS, MORE LEFT - Neurological Neuro grossly intact: No - LETHARGIC, MOVES ALL 4 EXTREMITIES [place] Coma Scale Eye Opening: To Pain [place] Coma Scale Verbal: Incomprehensible [place] Coma Scale Motor: Localizes to Pain [place] Coma Scale Total: 9 - Skin Skin Temperature: Warm Skin Moisture: Dry Skin Color: Normal Skin Turgor: Loose Skin irregularity: Decubitus ulcer, Tender indurated area Location of irregularity: Back, Extremities <CLEO MORRISON - Last Filed: 08/25/17 00:37> - Vital signs Vitals: Pulse Ox 96 08/24/17 14:25 - Abdominal Notes: COLOSTOMY BAG MISSING, ABDOMINAL WALL GROSSLY CONTAMINATED WITH BOWEL CONTENTS. (CLEO MORRISON) Course - Laboratory Result Diagrams: 08/24/17 14:59 08/24/17 14:59 <PANFILO ANN - Last Filed: 08/24/17 16:24> - Laboratory Result Diagrams: 08/24/17 22:00 08/24/17 22:00 - Diagnostic Test Radiology reviewed: Image reviewed, Reports reviewed - EKG Interpretation by Md EKG shows normal: Sinus rhythm. abnormal: Intervals - BORDERLINE LONG QT. Rate: Tachycardia Voltage: Consistant with LVH P Waves: LAE - Consults DR. PEREZ Time consulted: 16:10 Consulted provider: will come to ER <CLEO MORRISON - Last Filed: 08/25/17 00:37> - Vital Signs Vital signs: Temp Pulse Resp BP Pulse Ox 96.8 F L 117 H 25 H 107/77 98 08/24/17 22:31 08/24/17 22:16 08/24/17 22:16 08/24/17 22:16 08/24/17 22:16 - Laboratory Laboratory results interpreted by me: 08/24/17 08/24/17 08/24/17 14:59 14:59 14:59 WBC 17.2 H Hgb 12.6 L MCH 26.3 L MCHC 31.3 L RDW 17.9 H Plt Count 759 H Seg Neuts % (Manual) 87 H Band Neutrophils % 2 L Lymphocytes % (Manual) 5 L Abs Neuts (Manual) 15.3 H APTT 36.8 H VBG pH VBG pCO2 VBG HCO3 Carbon Dioxide 12 L Anion Gap 30 H BUN 32 H Glucose 603 H* POC Glucose Calcium 13.2 H* Direct Bilirubin 0.5 H AST 15 L ALT 6 L Alkaline Phosphatase 127 H Total Protein 8.7 H Urine Protein Urine Glucose (UA) Urine Ketones Urine Blood 08/24/17 08/24/17 08/24/17 15:33 15:46 15:52 WBC Hgb MCH MCHC RDW Plt Count Seg Neuts % (Manual) Band Neutrophils % Lymphocytes % (Manual) Abs Neuts (Manual) APTT VBG pH 7.23 L VBG pCO2 31.6 L VBG HCO3 13.0 L Carbon Dioxide Anion Gap BUN Glucose POC Glucose 462 H* Calcium Direct Bilirubin AST ALT Alkaline Phosphatase Total Protein Urine Protein >=500 H Urine Glucose (UA) >=500 H Urine Ketones 80 H Urine Blood MODERATE H Procedures - Central Line Left Internal jugular Central line pre-insertion: Sterile PPE donned, Chloraprep applied Central line lumen type: Triple Anesthetic type: 1% Lidocaine mL's of anesthesia: 2 Ultrasound guided: Yes CM at insertion site: 17 Line secured with sutures: Yes Central line post-insertion: Blood return from lumens, Biopatch applied, Sutured , Sterile dressing applied, Position confirmed w/ CXR Number of attempts: 1 Complications: No <PANFILO ANN - Last Filed: 08/24/17 16:24> Critical Care Note <PANFILO ANN - Last Filed: 08/24/17 16:24> - Critical Care Note Total time excluding time spent on procedures (mins): 60 <TAMIKOCLEO - Last Filed: 08/25/17 00:37> - Critical Care Note Comments: CRITICALY ILL PATIENT, UNSTABLE VITAL SIGNS, AGGRESSIVE RESUSCITATION AND INTERVENTIONS NECESSARY, MULTIPLE CONSULTATIONS, FREQUENT RE-ASSESSMENT AND COMPLEX DECISION-MAKING. (CLEO MORRISON) Discharge <PANFILO ANN - Last Filed: 08/24/17 16:24> - Discharge Admitting Provider: Hospitalist Unit Admitted: ICU <HANSACLEO NGUYỄN - Last Filed: 08/25/17 00:37> - Discharge Clinical Impression: Sepsis affecting skin, Groin abscess, Abscess or cellulitis of perineum DKA (diabetic ketoacidoses) Qualifiers: Diabetes mellitus type: type 1 Diabetes mellitus complication detail: without coma Qualified Code(s): E10.10 - Type 1 diabetes mellitus with ketoacidosis without coma Diabetes mellitus Qualifiers: Diabetes mellitus type: type 1 Diabetes mellitus complication status: with unspecified complications Qualified Code(s): E10.8 - Type 1 diabetes mellitus with unspecified complications Decubitus ulcer Qualifiers: Pressure ulcer location: sacral region Pressure ulcer stage: stage 3 Qualified Code(s): L89.153 - Pressure ulcer of sacral region, stage 3 Condition: Critical Disposition: ADMITTED INPATIENT
[2017-08-24] MEDS ORDERED: NORMAL SALINE 1000 ML 3,000 ML IV ONE (14:37)
[2017-08-24] MEDS ORDERED: INSULIN REG, HUMAN 100 UNIT/ML 3 ML VIAL (PYX) IV ONE (14:38)
[2017-08-24] MEDS ORDERED: PIPERACILLIN/TAZOBACTAM 4.5 GM VIAL IV ONE (15:04)
[2017-08-24] MEDS ORDERED: VANCOMYCIN HCL INJ 1000 MG VIAL IV ONE (15:04)
[2017-08-24 15:29] LABS: HEMATOCRIT 40.2 % (37.9-51.0); HEMOGLOBIN 12.6 g/dL (13.5-17.0); MEAN CORPUSCULAR HEMOGLOBIN 26.3 pg (27.0-33.4); MEAN CORPUSCULAR HGB CONC 31.3 g/dL (32.0-36.0); MEAN CORPUSCULAR VOLUME 84 fl (80-97); PLATELET COUNT 759 10^3/uL (150-450); RED CELL DISTRIBUTION WIDTH 17.9 % (11.5-14.0); WHITE BLOOD COUNT 17.2 10^3/uL (4.0-10.5)
[2017-08-24 15:43] LABS: ALANINE AMINOTRANSFERASE 6 U/L (21-72); ALKALINE PHOSPHATASE 127 U/L (38-126); ASPARTATE AMINO TRANSFERASE 15 U/L (17-59); BILIRUBIN,DIRECT 0.5 mg/dL (0.0-0.4); BILIRUBIN,TOTAL 0.5 mg/dL (0.2-1.3); BLOOD UREA NITROGEN 32 mg/dL (7-20); CARBON DIOXIDE 12 mmol/L (22-30); CHLORIDE 101 mmol/L (98-107); CREATINE KINASE 158 U/L (55-170); POTASSIUM 3.7 mmol/L (3.6-5.0); SODIUM 142.7 mmol/L (137-145); TOTAL PROTEIN 8.7 g/dL (6.3-8.2)
[2017-08-24 15:48] LABS: ABSOLUTE LYMPHOCYTES# (MANUAL) 0.9 10^3/uL (0.5-4.7); ABSOLUTE NEUTROPHILS# (MANUAL) 15.3 10^3/uL (1.7-8.2); BAND NEUTROPHILS % (MANUAL) 2 % (3-5); BASOPHILS % (MANUAL) 0 % (0-2); EOSINOPHILS % (MANUAL) 0 % (0-6); LYMPHOCYTES % (MANUAL) 5 % (13-45); MONOCYTES % (MANUAL) 6 % (3-13); SEGMENTED NEUTROPHILS % (MAN) 87 % (42-78); TOTAL CELLS COUNTED 100
[2017-08-24 15:49] LABS: TOXIC GRANULATION SLIGHT
[2017-08-24 15:50] LABS: ANISOCYTOSIS 1+; OVALOCYTES SLIGHT; PLATELET COMMENT INCREASED; POIKILOCYTOSIS 1+; POLYCHROMASIA SLIGHT; TEAR DROP CELLS SLIGHT
[2017-08-24 15:55] LABS: CREATINE KINASE MB 1.31 ng/mL (<4.55); TROPONIN I < 0.012 ng/mL
[2017-08-24 16:04] LABS: APPEARANCE,URINE SLIGHTLY-CLOUDY; BILIRUBIN,URINE NEGATIVE (NEGATIVE); COLOR,URINE YELLOW; GLUCOSE, URINE >=500 mg/dL (NEGATIVE); KETONES,URINE 80 mg/dL (NEGATIVE); LEUKOCYTE ESTERASE,URINE NEGATIVE (NEGATIVE); NITRITE,URINE NEGATIVE (NEGATIVE); PROTEIN,URINE >=500 mg/dL (NEGATIVE); URINE SPECIFIC GRAVITY 1.023; UROBILINOGEN,URINE NEGATIVE mg/dL (<2.0)
[2017-08-24 16:04] LABS: VENOUS BLOOD BASE EXCESS -13.2 mmol/L; VENOUS BLOOD PCO2 31.6 mmHg (35-63); VENOUS BLOOD PH 7.23 (7.30-7.42)
[2017-08-24 16:05] LABS: CALCIUM 13.2 mg/dL (8.4-10.2); GLUCOSE 603 mg/dL (75-110)
[2017-08-24] MEDS ORDERED: NORMAL SALINE 100 ML with INSULIN REGULAR, HUMAN 100 UNIT IV PRN ×2 (16:15)
[2017-08-24 16:20] LABS: ANION GAP 30 (5-19)
--- NOTE | 2017-08-24 16:52 | RADIOLOGY REPORT (SQ) ---
EXAM DESCRIPTION: CHEST SINGLE VIEW COMPLETED DATE/TIME: 08/24/2017 4:41 pm REASON FOR STUDY: central line placement COMPARISON: None. EXAM PARAMETERS: NUMBER OF VIEWS: One view. TECHNIQUE: Single frontal radiographic view of the chest acquired. RADIATION DOSE: NA LIMITATIONS: None. FINDINGS: LUNGS AND PLEURA: No acute infiltrates or effusions. MEDIASTINUM AND HILAR STRUCTURES: No masses. Contour normal. HEART AND VASCULAR STRUCTURES: The heart is normal with uncoiling of thoracic aorta. The pulmonary v asculature is normal. BONES: Old compression deformity of T7. HARDWARE: None in the chest. OTHER: Left IJ line overlying SVC. IMPRESSION: No acute disease. Left IJ line overlying SVC. TECHNICAL DOCUMENTATION: JOB ID: [id number] [employer]- All Rights Reserved
[2017-08-24] MEDS ORDERED: ACETAMINOPHEN 325 MG TABLET PO PRN (17:04)
[2017-08-24] MEDS ORDERED: IPRATROPIUM/ALBUTEROL 0.5-2.5 MG/3 ML AMPUL NEB PRN (17:04)
--- NOTE | 2017-08-24 17:04 | PDOC H&P ---
History of Present Illness Admission Date/PCP: DELROY CROUCH DO History of Present Illness: Mr. Sarbjit Borges is a 51-year-old male who was brought in today by EMS. The patient is awake, but not coherent. When EMS found him he was severely hypothermic. He was hyperglycemic. He would only respond to painful stimuli. He was brought into the emergency department his initial temperature was 91F. Patient does have an ostomy. No bag was over the ostomy site. He was covered in stool. The emergency room staff performed a basic exam and while cleaning the patient they noted that he has pus coming out of the left groin and scrotal area. This extends around to the buttock on the left side. In addition, the patient appears to have a pressure ulcer from a moy on his back. He also has a linear skin ulceration on the spine at approximately T8 through T11. I cannot get any history from the patient. A sister came with him, but, she was not available for interview at this time. In the emergency department the patient was given 10 units of IV insulin and started on normal saline. He will be converted to the DKA protocol. He is also been started on IV Zosyn and vancomycin. General surgery was consulted. The plan will be for probable operative intervention this evening to explore the abscess in the left groin. All data is taken from hospital personnel and prior entries in the medical record. Current medication list is unknown. Past Medical History Cardiac Medical History: Reports: Myocardial Infarction - NOVEMBER 2014, Hypertension Denies: Coronary Artery Disease Pulmonary Medical History: Reports: Asthma, Pneumonia Denies: Bronchitis, Chronic Obstructive Pulmonary Disease (COPD) Neurological Medical History: Reports: Seizures Endocrine Medical History: Reports: Diabetes Mellitus Type 2 GI Medical History: Reports: Crohn's Disease Musculoskeltal Medical History: Reports: Arthritis Hematology: Reports: Anemia Past Surgical History Past Surgical History: Reports: Colostomy Social History Smoking Status: Unknown if Ever Smoked Frequency of Alcohol Use: None Hx Recreational Drug Use: No Hx Prescription Drug Abuse: No - Advance Directive Surrogate healthcare decision maker:: Patient's CODE STATUS is presumed full code. I will try to identify a surrogate decision maker as soon as possible. Family History Family History: Other - Crohn's-sister Parental Family History Reviewed: No Children Family History Reviewed: No Sibling(s) Family History Reviewed.: No - Family history cannot be obtained. Medication/Allergy Allergies/Adverse Reactions: atropine sulfate [From Lomotil] Allergy (Verified 02/21/17 13:49) diphenoxylate HCl [From Lomotil] Allergy (Verified 02/21/17 13:49) erythromycin base [Erythromycin Base] Allergy (Verified 02/21/17 13:49) paroxetine HCl [From Paxil] Allergy (Verified 02/21/17 13:49) sulfamethoxazole [From Bactrim] Allergy (Verified 02/21/17 13:49) trimethoprim [From Bactrim] Allergy (Verified 02/21/17 13:49) Review of Systems ROS unobtainable: Due to mental status Physical Exam Additional comments: The patient appears to be a cachectic black male. His facial appearance was unremarkable. The patient was able to verbalize some words. He was able to respond to pain. He did say I am all right when we tried to roll him over. He is disheveled in appearance. His neck is supple. His lungs are noted to be clear to auscultation bilaterally. His cardiac exam is regular without murmurs , gallops or rubs. The abdomen is fairly flat. I did not appreciate any bowel sounds. The ostomy is now covered. He does not have guarding or rebound noted and there are no hernias or masses present. The lower extremities are extremely thin. Currently, the patient is on a bear hugger and his extremities are warm. The patient has a large laceration in the left groin possibly involving the left testicle. With minimal palpation pus is draining forth. The lesion extends into the left buttock posteriorly. The patient has extremely atrophied muscles and extremely poor skin turgor there is minimal subcutaneous fat. Patient has a linear ulceration and excoriation on his vertebral spine at about T8-T11. No pus was expressed from this site. Results Laboratory Results: 08/24/17 14:59 08/24/17 14:59 08/24/17 08/24/17 08/24/17 14:59 14:59 14:59 WBC 17.2 H RBC 4.80 Hgb 12.6 L Hct 40.2 MCV 84 MCH 26.3 L MCHC 31.3 L RDW 17.9 H Plt Count 759 H Seg Neutrophils % Not Reportable Lymphocytes % Not Reportable Monocytes % Not Reportable Eosinophils % Not Reportable Basophils % Not Reportable Absolute Neutrophils Not Reportable Absolute Lymphocytes Not Reportable Absolute Monocytes Not Reportable Absolute Eosinophils Not Reportable Absolute Basophils Not Reportable VBG pH VBG pCO2 VBG HCO3 VBG Base Excess Sodium 142.7 Potassium 3.7 Chloride 101 Carbon Dioxide 12 L Anion Gap 30 H BUN 32 H Creatinine 1.10 Est GFR ( Amer) > 60 Est GFR (Non-Af Amer) > 60 Glucose 603 H* Lactic Acid 1.7 Calcium 13.2 H* Total Bilirubin 0.5 AST 15 L ALT 6 L Alkaline Phosphatase 127 H Total Protein 8.7 H Albumin 4.0 Urine Color Urine Appearance Urine pH Ur Specific [place] Urine Protein Urine Glucose (UA) Urine Ketones Urine Blood Urine Nitrite Ur Leukocyte Esterase Urine WBC (Auto) Urine RBC (Auto) 08/24/17 08/24/17 15:33 15:52 WBC RBC Hgb Hct MCV MCH MCHC RDW Plt Count Seg Neutrophils % Lymphocytes % Monocytes % Eosinophils % Basophils % Absolute Neutrophils Absolute Lymphocytes Absolute Monocytes Absolute Eosinophils Absolute Basophils VBG pH 7.23 L VBG pCO2 31.6 L VBG HCO3 13.0 L VBG Base Excess -13.2 Sodium Potassium Chloride Carbon Dioxide Anion Gap BUN Creatinine Est GFR ( Amer) Est GFR (Non-Af Amer) Glucose Lactic Acid Calcium Total Bilirubin AST ALT Alkaline Phosphatase Total Protein Albumin Urine Color YELLOW Urine Appearance SLIGHTLY-CLOUDY Urine pH 6.0 Ur Specific [place] 1.023 Urine Protein >=500 H Urine Glucose (UA) >=500 H Urine Ketones 80 H Urine Blood MODERATE H Urine Nitrite NEGATIVE Ur Leukocyte Esterase NEGATIVE Urine WBC (Auto) 1 Urine RBC (Auto) 3 08/24/17 08/24/17 14:59 14:59 Creatine Kinase 158 CK-MB (CK-2) 1.31 Troponin I < 0.012 Assessment & Plan - Diagnosis (1) Diabetic keto-acidosis Is this a current diagnosis for this admission?: Yes (2) Hypothermia Is this a current diagnosis for this admission?: Yes (3) Severe protein-calorie malnutrition Is this a current diagnosis for this admission?: Yes (4) Groin abscess Is this a current diagnosis for this admission?: Yes (5) Laceration of skin overlying spine Is this a current diagnosis for this admission?: Yes (6) Abscess or cellulitis of perineum Is this a current diagnosis for this admission?: Yes (7) CHRONIC PERINEAL inflammation Is this a current diagnosis for this admission?: Yes (8) Crohns disease Qualifiers: Gastrointestinal tract location: unspecified location Is this a current diagnosis for this admission?: Yes (9) Diabetes mellitus Qualifiers: Diabetes mellitus type: type 2 Is this a current diagnosis for this admission?: Yes (10) Sepsis Qualifiers: Sepsis type: sepsis due to unspecified organism Qualified Code(s): A41.9 - Sepsis, unspecified organism Is this a current diagnosis for this admission?: Yes - Time Time Spent: 30 to 50 Minutes - Inpatient Certification Medical Necessity: Significant Comorbidiites Make Outpatient Treatment Too Risky , Need Close Monitoring Due to Risk of Patient Decompensation, Need For IV Fluids, Need for IV Antibiotics, Need for Surgery, Risk of Complication if Not Cared For in Hospital - Plan Summary Plan Summary: The patient will be admitted to the intensive care unit. He will be placed on a DKA protocol. He will continue bear hugger therapy for his severe hypothermia which is likely secondary to his severe cachexia and exposure. Once he becomes stable we can address his severe protein calorie malnutrition. Surgery has been emergently consulted. They are planning on taking him to the operating room today to explore the groin abscess. Certainly, this could be associated with his underlying diagnosis of Crohn's disease with fistula formation. I will defer to surgery any additional imaging studies. We will continue Zosyn and vancomycin pending cultures. The patient did have a prolonged QT. EKGs will be checked daily. We will also follow the patient's calcium. He does have hypercalcemia if it remains elevated after hydration then and evaluation for hypercalcemia will be performed. The patient's anion gap metabolic acidosis appears to be secondary to DKA. However, the patient does meet criteria for sepsis at this time with severe leukocytosis, hypothermia and evidence of infection.
[2017-08-24] MEDS ORDERED: VANCOMYCIN HCL 0 MG in DEXTROSE 5%-WATER 250 ML IV NR (17:15)
[2017-08-24] MEDS ORDERED: INSULIN LISPRO 100 UNIT/ML 3 ML VIAL ONE (17:17)
[2017-08-24 17:23] LABS: INTERNATIONAL RATION (INR) 0.97; PROTHROMBIN TIME 13.6 SEC (11.4-15.4)
[2017-08-24 17:24] LABS: PARTIAL THROMBOPLASTIN TIME 36.8 SEC (23.5-35.8)
[2017-08-24] MEDS ORDERED: PIPERACILLIN SODIUM/TAZOBACTAM 4.5 GM in NORMAL SALINE 100 ML IV SCH (18:00)
[2017-08-24] MEDS: POTASSI CL 20 MEQ/50 ML RIDER 20 MEQ/50 ML RTUPB IV SCH ×2 (18:15→23:07)
[2017-08-24] MEDS ORDERED: INSULIN REG, HUMAN 100 UNIT/ML 3 ML VIAL (PYX) ONE (18:27)
[2017-08-24] MEDS ORDERED: PIPERACILLIN SODIUM/TAZOBACTAM 4.5 GM in NORMAL SALINE 100 ML IV ONE (19:00)
[2017-08-24] MEDS ORDERED: FENTANYL CITRATE INJ/PF 100 MCG/2 ML AMPUL ONE (19:55)
[2017-08-24] MEDS ORDERED: PROPOFOL INJ 200 MG/20 ML VIAL IV ONE (19:55)
[2017-08-24] MEDS ORDERED: MIDAZOLAM 2 MG/2 ML INJ ONE (19:55)
[2017-08-24 20:18] LABS: URINE AMPHETAMINES SCREEN NEGATIVE; URINE BARBITURATES SCREEN NEGATIVE; URINE COCAINE SCREEN NEGATIVE; URINE MARIJUANA (THC) SCREEN NEGATIVE; URINE METHADONE SCREEN NEGATIVE; URINE PHENCYCLIDINE SCREEN NEGATIVE
[2017-08-24 21:07] LABS: URINE BENZODIAZEPINES SCREEN UNCONFIRMED POSITIVE
--- NOTE | 2017-08-24 21:42 | PDOC CONSULTATION ---
Consultation Consult Date: 08/24/17 Attending physician:: AMARJIT SIMON Consult reason:: purulent drainage from bilateral groin and left buttock History of Present Illness Admission Date/PCP: 08/24/17 16:51 DELROY CROUCH DO History of Present Illness: Mr. Sarbjit Borges is a 51-year-old male who was brought in today by EMS; he had not been seen by the family for 5 days and was found down. The patient is awake now, but not coherent. When EMS found him he was severely hypothermic. He was hyperglycemic. He would only respond to painful stimuli. He was brought into the emergency department his initial temperature was 91F. Patient does have an ostomy. No bag was over the ostomy site. He was covered in stool. The emergency room staff performed a basic exam and while cleaning the patient they noted that he has pus coming out of the right and left groin and scrotal area. This extends around to the buttock on the left side. In addition, the patient appears to have a pressure ulcer from a moy on his back. He also has a linear skin ulceration on the spine at approximately T8 through T11. A consult was placed for surgical evaluation for the drainage from his groins and buttock. The patient cannot give a history but his EHR shows he has severe hidradenitis suppurativa and had a colostomy placed in [place] in 10/12/2014 before he moved down here to aid healing of the perineal wounds related to the hidradenitis. He has been getting wound care at the wound care center here with Dr Teresa and Dr Babin; last visit was June 2017 (2 months ago). Past Medical History Cardiac Medical History: Reports: Myocardial Infarction - NOVEMBER 2014, Hypertension Denies: Coronary Artery Disease Pulmonary Medical History: Reports: Asthma, Pneumonia Denies: Bronchitis, Chronic Obstructive Pulmonary Disease (COPD) Neurological Medical History: Reports: Seizures Endocrine Medical History: Reports: Diabetes Mellitus Type 2 GI Medical History: Reports: Crohn's Disease Musculoskeltal Medical History: Reports: Arthritis Hematology: Reports: Anemia Past Surgical History Past Surgical History: Reports: Colostomy Social History Smoking Status: Unknown if Ever Smoked Frequency of Alcohol Use: None Hx Recreational Drug Use: No Hx Prescription Drug Abuse: No - Advance Directive Resuscitation Status: Full Code Family History Family History: Other - Crohn's-sister Parental Family History Reviewed: No Children Family History Reviewed: Unknown Sibling(s) Family History Reviewed.: Unknown Medication/Allergy Home Medications: Duloxetine HCl [Cymbalta] 60 mg PO Q12 08/24/17 Gabapentin [Neurontin 300 mg Capsule] 600 mg PO Q8 08/24/17 Insulin Aspart [Novolog Flexpen] 25 unit SQ Q12 08/24/17 Metformin HCl [Glucophage] 1,000 mg PO BIDACBS 08/24/17 Morphine Sulfate [Morphine Sulfate ER] 100 mg PO Q12 08/24/17 Naloxone HCl [Narcan] 1 spray NS ASDIR PRN 08/24/17 Ondansetron HCl [Zofran 8 mg Tablet] 8 mg PO Q8HP PRN 08/24/17 Oxycodone HCl [Oxy-Ir 5 mg Tablet] 20 mg PO Q4HP PRN 08/24/17 Prednisone [Deltasone 10 mg Tablet] 10 mg PO Q12 08/24/17 Allergies/Adverse Reactions: atropine sulfate [From Lomotil] Allergy (Verified 02/21/17 13:49) diphenoxylate HCl [From Lomotil] Allergy (Verified 02/21/17 13:49) erythromycin base [Erythromycin Base] Allergy (Verified 02/21/17 13:49) paroxetine HCl [From Paxil] Allergy (Verified 02/21/17 13:49) sulfamethoxazole [From Bactrim] Allergy (Verified 02/21/17 13:49) trimethoprim [From Bactrim] Allergy (Verified 02/21/17 13:49) Review of Systems ROS unobtainable: Due to mental status Physical Exam Vital Signs: Temp Pulse Resp BP Pulse Ox 98.4 F 39 H 107/73 97 08/24/17 20:01 08/24/17 20:01 08/24/17 20:01 08/24/17 20:01 Intake & Output 08/23/17 08/24/17 08/25/17 06:59 06:59 06:59 Weight 57.3 kg General appearance: PRESENT: disheveled, thin, other - chronically ill-looking. Head exam: PRESENT: normocephalic Eye exam: PRESENT: conjunctiva pink Ear exam: PRESENT: normal external ear exam Neck exam: ABSENT: carotid bruit, JVD, lymphadenopathy, thyromegaly Respiratory exam: PRESENT: clear to auscultation [place]. ABSENT: rales, rhonchi, wheezes Cardiovascular exam: PRESENT: RRR, other - hypotensive initially. ABSENT: diastolic murmur, rubs, systolic murmur GI/Abdominal exam: PRESENT: normal bowel sounds, soft Gentrourinary exam: PRESENT: indwelling catheter Neurological exam: PRESENT: altered Skin exam: PRESENT: other - bilateral groin and perineal areas with thickened skin with punctate scars; there is lobing of the perineal skin. Pus drains freely from the groins bilaterally more so from the left. Results Laboratory Results: 08/24/17 19:42 08/24/17 19:42 Glucose 409 H* Magnesium 1.7 08/24/17 18:00 Creatine Kinase 140 Impressions: Chest X-Ray 08/24/17 00:00 IMPRESSION: No acute disease. Left IJ line overlying SVC. Assessment & Plan - Diagnosis (1) Hidradenitis suppurativa of anus Is this a current diagnosis for this admission?: Yes (2) Groin abscess Is this a current diagnosis for this admission?: Yes (3) Diabetic keto-acidosis Is this a current diagnosis for this admission?: Yes - Plan Summary Plan Summary: The patient will be taken to the OR for drainage of the abscesses related to chronic severe perineal hidradenitis suppurativa. Consent was obtained from his sister.
--- NOTE | 2017-08-24 21:53 | Operative Report ---
Operative Report DATE OF SURGERY: 08/24/17 PREOPERATIVE DIAGNOSIS: 1. Chronic severe perineal hidradenitis suppurativa with abscesses. 2. Diabetic ketoacidosis. 3. Altered sensorium POSTOPERATIVE DIAGNOSIS: 1. Chronic severe perineal hidradenitis suppurativa with abscesses. 2. Diabetic ketoacidosis. 3. Altered sensorium OPERATION: Drainage of Chronic severe perineal hidradenitis suppurativa with abscesses SURGEON: AMARJIT SIMON ANESTHESIA: Moderate Sedation TISSUE REMOVED OR ALTERED: abscess for culture COMPLICATIONS: none ESTIMATED BLOOD LOSS: 10 ml INTRAOPERATIVE FINDINGS: bilateral groin and perineal areas with thickened skin with severe scarring; there is lobing of the perineal skin. Pus drains freely from the groins bilaterally, more so from the left, from multiple punctate orifices PROCEDURE: The patient was brought to the operating room and placed on the operating table. Anesthetic sedation was administered and he was positioned in lithotomy with both legs on Gavin stirrups. Bilateral groin and perineal areas were prepped with betadine and sterile drapes laid. A timeout was done. Under sterile aseptic conditions, using a hemostat, the draining orifices were dilated to gain entrance to the abscess cavities. Cultures were taken. The cavities were drained of the pus they contained, they were irrigated with saline and dressed with 1/2 inch iodoform gauze packing, 4x4, ABD, and tape. The patient tolerated the procedure well and was taken to the PACU in stable conditions.
[2017-08-24 22:12] LABS: HEMATOCRIT 34.8 % (37.9-51.0); HEMOGLOBIN 11.4 g/dL (13.5-17.0); MEAN CORPUSCULAR HEMOGLOBIN 26.1 pg (27.0-33.4); MEAN CORPUSCULAR HGB CONC 32.6 g/dL (32.0-36.0); PLATELET COUNT 660 10^3/uL (150-450); RED BLOOD COUNT 4.36 10^6/uL (4.35-5.55); RED CELL DISTRIBUTION WIDTH 17.3 % (11.5-14.0); WHITE BLOOD COUNT 14.4 10^3/uL (4.0-10.5)
[2017-08-24 22:15] LABS: MEAN CORPUSCULAR VOLUME 80 fl (80-97)
[2017-08-24 22:31] LABS: ANION GAP 15 (5-19); BLOOD UREA NITROGEN 23 mg/dL (7-20); CALCIUM 10.7 mg/dL (8.4-10.2); CARBON DIOXIDE 17 mmol/L (22-30); CHLORIDE 116 mmol/L (98-107); GLUCOSE 268 mg/dL (75-110); SODIUM 147.8 mmol/L (137-145)
[2017-08-24] MEDS: PIPERACILLIN SODIUM/TAZOBACTAM 4.5 GM in NORMAL SALINE 100 ML IV SCH (23:05)
[2017-08-24] MEDS: VANCOMYCIN HCL 750 MG in DEXTROSE 5%-WATER 250 ML IV SCH (23:06)
[2017-08-24] MEDS: FAMOTIDINE INJ/PF 20 MG/2 ML SDV IV SCH (23:42)
[2017-08-25] MEDS ORDERED: PIPERACILLIN SODIUM/TAZOBACTAM 4.5 GM in NORMAL SALINE 100 ML IV SCH ×2
[2017-08-25] MEDS: PIPERACILLIN SODIUM/TAZOBACTAM 4.5 GM in NORMAL SALINE 100 ML IV SCH ×4 (02:10→21:30)
[2017-08-25 02:14] LABS: HEMATOCRIT 35.6 % (37.9-51.0); HEMOGLOBIN 11.3 g/dL (13.5-17.0); MEAN CORPUSCULAR HEMOGLOBIN 25.4 pg (27.0-33.4); MEAN CORPUSCULAR HGB CONC 31.7 g/dL (32.0-36.0); MEAN CORPUSCULAR VOLUME 80 fl (80-97); PLATELET COUNT 635 10^3/uL (150-450); RED BLOOD COUNT 4.45 10^6/uL (4.35-5.55); RED CELL DISTRIBUTION WIDTH 17.6 % (11.5-14.0); WHITE BLOOD COUNT 16.4 10^3/uL (4.0-10.5)
[2017-08-25 02:27] LABS: ANION GAP 11 (5-19); BLOOD UREA NITROGEN 19 mg/dL (7-20); CALCIUM 10.7 mg/dL (8.4-10.2); CARBON DIOXIDE 18 mmol/L (22-30); CHLORIDE 119 mmol/L (98-107); GLUCOSE 132 mg/dL (75-110); PHOSPHORUS 1.5 mg/dL (2.5-4.5); SODIUM 148.3 mmol/L (137-145)
[2017-08-25] MEDS ORDERED: RIDER IV ONE (02:39)
[2017-08-25] MEDS ORDERED: POTASSI CL 20 MEQ/50 ML IV ONE (02:39)
[2017-08-25] MEDS ORDERED: POTASSIUM PHOS,M-BASIC-D-BASIC 30 MMOL in NORMAL SALINE 500 ML IV ONE (02:51)
[2017-08-25] MEDS ORDERED: POTASSI CL 20 MEQ/D5-1/2NS 1L 1000 ML IV PRN (02:55)
[2017-08-25] MEDS: POTASSIUM CHLORIDE 20 MEQ/50 ML RTU IV SCH ×4 (03:01→08:33)
[2017-08-25 03:03] LABS: ARTERIAL BLOOD BASE EXCESS -6.2 mmol/L; ARTERIAL BLOOD H2CO3 1.21 mmol/L (1.05-1.35); ARTERIAL BLOOD HCO3 19.7 mmol/L (20-26); ARTERIAL BLOOD O2 SATURATION 90.3 % (94-98); ARTERIAL BLOOD PCO2 40.3 mmHg (35-45); ARTERIAL BLOOD PH 7.31 (7.35-7.45); ARTERIAL BLOOD PO2 63.5 mmHg (80-100); ARTERIAL BLOOD TOTAL CO2 20.9 mmol/L (23-27)
[2017-08-25 03:06] LABS: ARTERIAL BLOOD FIO2 100%
[2017-08-25] MEDS ORDERED: FENTANYL CITRATE INJ/PF 100 MCG/2 ML AMPUL IV PRN (03:06)
[2017-08-25] MEDS ORDERED: PHARMACY COMMUNICATION ORDER MC NR (03:15)
[2017-08-25] MEDS ORDERED: PROPOFOL INJ 200 MG/20 ML VIAL IV ONE ×2 (03:44→17:38)
[2017-08-25] MEDS ORDERED: NOREPINEPHRINE BITARTRATE INJ/PF 4 MG/4 ML SDV IV ONE (03:56)
[2017-08-25] MEDS: PROPOFOL 100 ML IV PRN ×3 (04:25→16:28)
--- NOTE | 2017-08-25 04:36 | RADIOLOGY REPORT (SQ) ---
EXAM DESCRIPTION: CHEST SINGLE VIEW CLINICAL HISTORY: 51 years, Male, intubation COMPARISON: August 24, 2017 NUMBER OF VIEWS: 2 LIMITATIONS: Apices clipped. FINDINGS: Moderate consolidative opacity of the right lower 50% hemithorax compared with exam from 12 hours prior. Small right lung volume. Mild shift of the heart toward the right. Lung apices are clipped off the image. Endotracheal tube tip is seen at the thoracic inlet, 6 cm from the [place]; consider 2 cm advancement. Left jugular central line tip at the cavoatrial junction. Enteric tube tip at the stomach-left upper abdominal quadrant. Left upper abdominal clips. Mild gaseous distention of small bowel measuring up to 3.1 cm partially imaged. IMPRESSION: New moderate right lower lobar opacity may indicate atelectasis/collapse, pneumonia, and/or effusion.Endotracheal tube tip is seen at the thoracic inlet, 6 cm from the belg[place]; consider 2 cm advancement. Limitation.
[2017-08-25 05:44] LABS: ARTERIAL BLOOD BASE EXCESS -7.9 mmol/L; ARTERIAL BLOOD H2CO3 1.27 mmol/L (1.05-1.35); ARTERIAL BLOOD HCO3 18.8 mmol/L (20-26); ARTERIAL BLOOD O2 SATURATION 88.6 % (94-98); ARTERIAL BLOOD PCO2 42.3 mmHg (35-45); ARTERIAL BLOOD PH 7.27 (7.35-7.45); ARTERIAL BLOOD PO2 62.3 mmHg (80-100); ARTERIAL BLOOD TOTAL CO2 20.1 mmol/L (23-27)
[2017-08-25 05:51] LABS: ARTERIAL BLOOD FIO2 90%
[2017-08-25 06:09] LABS: ALANINE AMINOTRANSFERASE 14 U/L (21-72); ALBUMIN 2.6 g/dL (3.5-5.0); ALKALINE PHOSPHATASE 88 U/L (38-126); ANION GAP 9 (5-19); ASPARTATE AMINO TRANSFERASE 13 U/L (17-59); BILIRUBIN,DIRECT 0.2 mg/dL (0.0-0.4); BILIRUBIN,TOTAL 0.2 mg/dL (0.2-1.3); BLOOD UREA NITROGEN 18 mg/dL (7-20); CALCIUM 10.3 mg/dL (8.4-10.2); CARBON DIOXIDE 18 mmol/L (22-30); CHLORIDE 122 mmol/L (98-107); CREATINE KINASE 82 U/L (55-170); GLUCOSE 135 mg/dL (75-110); SODIUM 148.6 mmol/L (137-145)
[2017-08-25 06:22] LABS: FREE T3 2.06 pg/mL (2.77-5.27); FREE T4 (FREE THYROXINE) 1.48 ng/dL (0.78-2.19)
[2017-08-25 06:25] LABS: PHOSPHORUS 3.5 mg/dL (2.5-4.5); POTASSIUM 4.8 mmol/L (3.6-5.0)
[2017-08-25 06:36] LABS: THYROID STIMULATING HORMONE 2.51 uIU/mL (0.47-4.68)
[2017-08-25 07:01] LABS: HEMATOCRIT 32.1 % (37.9-51.0); HEMOGLOBIN 10.3 g/dL (13.5-17.0); MEAN CORPUSCULAR HEMOGLOBIN 25.5 pg (27.0-33.4); MEAN CORPUSCULAR VOLUME 80 fl (80-97); PLATELET COUNT 646 10^3/uL (150-450); RED BLOOD COUNT 4.02 10^6/uL (4.35-5.55); RED CELL DISTRIBUTION WIDTH 17.5 % (11.5-14.0); WHITE BLOOD COUNT 16.5 10^3/uL (4.0-10.5)
--- NOTE | 2017-08-25 07:51 | RADIOLOGY REPORT (SQ) ---
EXAM DESCRIPTION: CHEST SINGLE VIEW CLINICAL HISTORY: 51 years, Male, vent management COMPARISON: 08/24/17. NUMBER OF VIEWS: 1 LIMITATIONS: None. FINDINGS: Moderate patchiness of the right lower lobe, moderate lung volume, normal cardiac silhouette, adequate appearing endotracheal tube tip at the thoracic inlet is 7 cm from the belg[place]; consider 2 cm advancement. Left jugular central line tip at the cavoatrial junction. Adequate appearing enteric tube. No pneumothorax. No acute bone defects. IMPRESSION: Tip of an endotracheal tube is 7 cm from the belg[place]; recommend 2 cm advancement.
--- NOTE | 2017-08-25 08:49 | EKG REPORT ---
SEVERITY:- ABNORMAL ECG - SINUS TACHYCARDIA NONSPECIFIC T ABNORMALITIES, DIFFUSE LEADS BORDERLINE PROLONGED QT INTERVAL : Confirmed by: Taylor Jackson 25-Aug-2017 08:48:30
--- NOTE | 2017-08-25 08:49 | EKG REPORT ---
SEVERITY:- ABNORMAL ECG - SINUS TACHYCARDIA PROBABLE LEFT ATRIAL ABNORMALITY PROBABLE LEFT VENTRICULAR HYPERTROPHY BORDERLINE PROLONGED QT INTERVAL : Confirmed by: Taylor Jackson 25-Aug-2017 08:48:35
[2017-08-25] MEDS ORDERED: MIDAZOLAM HCL 50 MG/100 ML RTUINJ IV ONE (09:47)
--- NOTE | 2017-08-25 09:59 | PDOC PROGRESS REPORT ---
Subjective Progress Note for:: 08/25/17 Subjective:: The patient is a 51-year-old male who presented yesterday with sepsis and DKA. The patient has a history of severe perineal hidradenitis suppurativa. He presented with a large groin abscess in the left groin. Last night, he was emergently taken to surgery for drainage of this chronic abscess. Overnight, he was intubated. He now has an excessive oxygen requirement. Due to his obtundation upon presentation he may have aspirated. He may be developing ARDS. The patient did close his gap overnight and the insulin drip for DKA was discontinued. He is currently on Levophed for sepsis with shock. He appears to be severely malnourished. Reason For Visit: DKA, SEPSIS Physical Exam Vital Signs: Temp Pulse Resp BP Pulse Ox 99.3 F 111 H 36 H 99/72 L 93 08/25/17 08:00 08/25/17 08:00 08/25/17 08:00 08/25/17 08:00 08/25/17 08:00 Intake & Output 08/24/17 08/25/17 08/26/17 06:59 06:59 06:59 Intake Total 1718 Output Total 850 160 Balance 868 -160 Weight 54.6 kg Additional comments: The patient is a cachectic black male. He is currently intubated and on a propofol drip. He is not currently responding to commands or verbal stimuli. The patient is overbreathing the ventilator. His lungs demonstrate only minimal rales without wheezing. His cardiac exam is regular without murmurs, gallops or rubs. The abdomen is soft. Bowel sounds are hypoactive. The patient does have a bag over his ostomy site which is draining liquid bile and stool. The lower extremities are thin. The patient does not have any pitting edema. The surgical site is covered over the perineal abscess. Results Laboratory Results: 08/25/17 05:15 08/25/17 05:15 08/24/17 08/24/17 08/24/17 19:42 22:00 22:00 WBC 14.4 H RBC 4.36 Hgb 11.4 L Hct 34.8 L MCV 80 D MCH 26.1 L MCHC 32.6 RDW 17.3 H Plt Count 660 H Carbonic Acid HCO3/H2CO3 Ratio ABG pH ABG pCO2 ABG pO2 ABG HCO3 ABG O2 Saturation ABG Base Excess FiO2 Sodium 147.8 H Potassium 3.0 L* Chloride 116 H Carbon Dioxide 17 L Anion Gap 15 BUN 23 H Creatinine 0.82 Est GFR ( Amer) > 60 Est GFR (Non-Af Amer) > 60 Glucose 409 H* 268 H Calcium 10.7 H Phosphorus 2.0 L Magnesium 1.7 1.6 Total Bilirubin AST ALT Alkaline Phosphatase Ammonia Total Protein Albumin TSH Free T4 Free T3 pg/mL 08/25/17 08/25/17 08/25/17 02:00 02:00 02:45 WBC 16.4 H RBC 4.45 Hgb 11.3 L Hct 35.6 L MCV 80 MCH 25.4 L MCHC 31.7 L RDW 17.6 H Plt Count 635 H Carbonic Acid 1.21 HCO3/H2CO3 Ratio 16:1 ABG pH 7.31 L ABG pCO2 40.3 ABG pO2 63.5 L ABG HCO3 19.7 L ABG O2 Saturation 90.3 L ABG Base Excess -6.2 FiO2 100% Sodium 148.3 H Potassium 3.0 L* Chloride 119 H Carbon Dioxide 18 L Anion Gap 11 BUN 19 Creatinine 0.72 Est GFR ( Amer) > 60 Est GFR (Non-Af Amer) > 60 Glucose 132 H Calcium 10.7 H Phosphorus 1.5 L Magnesium 1.6 Total Bilirubin AST ALT Alkaline Phosphatase Ammonia Total Protein Albumin TSH Free T4 Free T3 pg/mL 08/25/17 08/25/17 08/25/17 05:15 05:15 05:15 WBC 16.5 H RBC 4.02 L Hgb 10.3 L Hct 32.1 L MCV 80 MCH 25.5 L MCHC 32.0 RDW 17.5 H Plt Count 646 H Carbonic Acid HCO3/H2CO3 Ratio ABG pH ABG pCO2 ABG pO2 ABG HCO3 ABG O2 Saturation ABG Base Excess FiO2 Sodium 148.6 H Potassium 4.8 D Chloride 122 H Carbon Dioxide 18 L Anion Gap 9 BUN 18 Creatinine 0.75 Est GFR ( Amer) > 60 Est GFR (Non-Af Amer) > 60 Glucose 135 H Calcium 10.3 H Phosphorus 3.5 D Magnesium 1.5 L Total Bilirubin 0.2 AST 13 L ALT 14 L Alkaline Phosphatase 88 Ammonia < 8.7 L Total Protein 6.0 L Albumin 2.6 L TSH Free T4 Free T3 pg/mL 08/25/17 08/25/17 05:15 05:15 WBC RBC Hgb Hct MCV MCH MCHC RDW Plt Count Carbonic Acid 1.27 HCO3/H2CO3 Ratio 14:1 ABG pH 7.27 L ABG pCO2 42.3 ABG pO2 62.3 L ABG HCO3 18.8 L ABG O2 Saturation 88.6 L ABG Base Excess -7.9 FiO2 90% Sodium Potassium Chloride Carbon Dioxide Anion Gap BUN Creatinine Est GFR ( Amer) Est GFR (Non-Af Amer) Glucose Calcium Phosphorus Magnesium Total Bilirubin AST ALT Alkaline Phosphatase Ammonia Total Protein Albumin TSH 2.51 Free T4 1.48 Free T3 pg/mL 2.06 L 08/24/17 08/24/17 08/25/17 18:00 22:00 05:15 Creatine Kinase 140 117 82 Impressions: Chest X-Ray 08/25/17 06:44 IMPRESSION: Tip of an endotracheal tube is 7 cm from the belg[place]; recommend 2 cm advancement. Assessment & Plan - Diagnosis (1) Diabetic keto-acidosis Qualifiers: Diabetes mellitus type: type 1 Diabetes mellitus complication detail: without coma Qualified Code(s): E10.10 - Type 1 diabetes mellitus with ketoacidosis without coma Is this a current diagnosis for this admission?: Yes Plan: The patient's anion gap has closed. For now, fingersticks will be every 4 with sliding scale. (2) Hypothermia Is this a current diagnosis for this admission?: Yes Plan: Resolved. (3) Severe protein-calorie malnutrition Is this a current diagnosis for this admission?: Yes Plan: Along mechanical ventilation is expected. If surgery agrees, I will begin tube feeds. (4) Groin abscess Is this a current diagnosis for this admission?: Yes Plan: General surgeries prompt intervention is greatly appreciated. Cultures have been taken and are pending. The patient is on vancomycin and Zosyn. (5) Laceration of skin overlying spine Is this a current diagnosis for this admission?: Yes Plan: This will be evaluated further with CT scan. (6) Abscess or cellulitis of perineum Is this a current diagnosis for this admission?: Yes Plan: See plan above. (7) CHRONIC PERINEAL inflammation Is this a current diagnosis for this admission?: Yes Plan: Patient has chronic severe perennial hidradenitis suffered. He has been receiving care at the wound care clinic in [place]. (8) Crohns disease Qualifiers: Gastrointestinal tract location: unspecified location Is this a current diagnosis for this admission?: Yes Plan: This has been mentioned before in the patient's chart. There is no mention of any fistula formation from the surgical report from yesterday. (9) Diabetes mellitus Qualifiers: Diabetes mellitus type: type 1 Diabetes mellitus complication status: with unspecified complications Qualified Code(s): E10.8 - Type 1 diabetes mellitus with unspecified complications Is this a current diagnosis for this admission?: Yes (10) Sepsis Qualifiers: Sepsis type: sepsis due to unspecified organism Qualified Code(s): A41.9 - Sepsis, unspecified organism Is this a current diagnosis for this admission?: Yes (11) Euthyroid sick syndrome Is this a current diagnosis for this admission?: Yes Plan: Labs will need to be repeated when the patient is more stable. (12) Acute respiratory failure with hypoxia Is this a current diagnosis for this admission?: Yes Plan: The patient was emergently intubated overnight. He has an excessive oxygen requirement. Due to his presentation I am concerned about aspiration. However , he he is at risk of both community-acquired organisms and hospital meño. I appreciate Dr. Fair's assistance with ventilator management. (13) Septic shock Is this a current diagnosis for this admission?: Yes Plan: Patient is currently in septic shock. He presents with evidence of leukocytosis , tachycardia, severe hypothermia and an obvious an overwhelming infection. Continue supportive care with IV fluids and IV vasopressors. - Time Time Spent with patient: 35 or more minutes - Inpatient Certification Medical Necessity: Need For IV Fluids - The patient has multisystem organ failure and is in the intensive care unit., Need for IV Antibiotics, Need for Surgery, Risk of Complication if Not Cared For in Hospital
[2017-08-25] MEDS ORDERED: DEXTROSE 40% GEL 15 GM TUBE PO PRN ×2 (10:04)
[2017-08-25] MEDS ORDERED: DEXTROSE 50%-WATER 25 GM/50 ML DISP.SYRIN IV PRN ×2 (10:04)
[2017-08-25] MEDS ORDERED: DEXTROSE 5%-1/2 NORMAL SALINE 1,000 ML IV PRN (10:04)
[2017-08-25] MEDS ORDERED: GLUCAGON,HUMAN RECOMB 1 MG INJ IM PRN (10:04)
[2017-08-25] MEDS: NORMAL SALINE 500 ML with ROCURONIUM BROMIDE 500 MG IV PRN ×2 (10:19)
[2017-08-25] MEDS: VANCOMYCIN HCL 750 MG in DEXTROSE 5%-WATER 250 ML IV SCH ×2 (10:52→22:32)
[2017-08-25] MEDS: FAMOTIDINE INJ/PF 20 MG/2 ML SDV IV SCH ×2 (10:52→22:33)
[2017-08-25] MEDS: MAGNESIUM SULFATE/D5W 1 GM/100 ML RTUPB IV SCH ×3 (10:53→13:55)
--- NOTE | 2017-08-25 11:06 | RADIOLOGY REPORT (SQ) ---
EXAM DESCRIPTION: CHEST SINGLE VIEW COMPLETED DATE/TIME: 08/25/2017 10:49 am REASON FOR STUDY: resp failure confirm tube placement COMPARISON: 08/25/2017 EXAM PARAMETERS: NUMBER OF VIEWS: One view. TECHNIQUE: Single frontal radiographic view of the chest acquired. RADIATION DOSE: NA LIMITATIONS: None. FINDINGS: LUNGS AND PLEURA: The previously described patchy density in the right lower lobe is again identified. Remaining lung sandoval are clear. No pneumothorax is seen. MEDIASTINUM AND HILAR STRUCTURES: No masses. Contour normal. HEART AND VASCULAR STRUCTURES: Heart normal in size. Normal vasculature. BONES: No acute findings. HARDWARE: Endotracheal tube has been advanced and is now identified 3.6 cm above the level of the car amol. Central line is unchanged in position. NG tube is again seen in course to the abdomen with its tip at the level of the mid stomach OTHER: No other significant finding. IMPRESSION: Endotracheal tube with its tip 3.6 cm above the level of the belgica as noted above. Oth er findings as noted above TECHNICAL DOCUMENTATION: JOB ID: [id number] [email or web address] All Rights Reserved
[2017-08-25] MEDS ORDERED: SUCCINYLCHOLINE CHLORIDE INJ 200 MG/10 ML VIAL ONE (11:14)
--- NOTE | 2017-08-25 11:39 | Operative Report ---
Operative Report DATE OF SURGERY: 08/25/17 PREOPERATIVE DIAGNOSIS: 1. septic shock. 2.pna POSTOPERATIVE DIAGNOSIS: 1.septic shock. 2.pna. 3. Chronic severe perineal hidradenitis suppurativa with abscesses. 4. Diabetic ketoacidosis. 5. Altered sensorium OPERATION: R a-line insertion SURGEON: MELVIN PEREZ ANESTHESIA: GA TISSUE REMOVED OR ALTERED: n/a COMPLICATIONS: n/a ESTIMATED BLOOD LOSS: 10 ml
[2017-08-25] MEDS ORDERED: ENOXAPARIN SODIUM INJ 40 MG/0.4 ML DISP.SYRIN SUBCUT SCH (12:00)
[2017-08-25] MEDS: IPRATROPIUM/ALBUTEROL 0.5-2.5 MG/3 ML AMPUL NEB SCH ×3 (12:10→20:01)
[2017-08-25 12:22] LABS: ARTERIAL BLOOD BASE EXCESS -11.4 mmol/L; ARTERIAL BLOOD H2CO3 0.96 mmol/L (1.05-1.35); ARTERIAL BLOOD HCO3 14.3 mmol/L (20-26); ARTERIAL BLOOD O2 SATURATION 96.8 % (94-98); ARTERIAL BLOOD PH 7.27 (7.35-7.45); ARTERIAL BLOOD PO2 98.8 mmHg (80-100); ARTERIAL BLOOD TOTAL CO2 15.3 mmol/L (23-27)
[2017-08-25] MEDS ORDERED: DEXTROSE 5%-WATER 250 ML with PHENYLEPHRINE HCL 40 MG IV PRN ×2 (12:33)
[2017-08-25 12:39] LABS: ARTERIAL BLOOD FIO2 100%
--- NOTE | 2017-08-25 12:51 | PDOC PROGRESS REPORT ---
Subjective Progress Note for:: 08/25/17 Subjective:: Intubated and sedated Reason For Visit: DKA, SEPSIS Physical Exam Vital Signs: Temp Pulse Resp BP Pulse Ox 100.0 F 122 H 36 H 92/64 L 93 08/25/17 10:00 08/25/17 10:00 08/25/17 10:00 08/25/17 10:00 08/25/17 10:00 Intake & Output 08/24/17 08/25/17 08/26/17 06:59 06:59 06:59 Intake Total 1718 Output Total 850 570 Balance 868 -570 Weight 54.6 kg Respiratory exam: PRESENT: clear to auscultation daija Cardiovascular exam: PRESENT: tachycardia Gentrourinary exam: PRESENT: other - Left groin wounds with copious amount of purulent drainage with surrounding induration. Results Laboratory Results: 08/25/17 05:15 08/25/17 05:15 08/24/17 08/24/17 08/24/17 19:42 22:00 22:00 WBC 14.4 H RBC 4.36 Hgb 11.4 L Hct 34.8 L MCV 80 D MCH 26.1 L MCHC 32.6 RDW 17.3 H Plt Count 660 H Carbonic Acid HCO3/H2CO3 Ratio ABG pH ABG pCO2 ABG pO2 ABG HCO3 ABG O2 Saturation ABG Base Excess FiO2 Sodium 147.8 H Potassium 3.0 L* Chloride 116 H Carbon Dioxide 17 L Anion Gap 15 BUN 23 H Creatinine 0.82 Est GFR ( Amer) > 60 Est GFR (Non-Af Amer) > 60 Glucose 409 H* 268 H Calcium 10.7 H Phosphorus 2.0 L Magnesium 1.7 1.6 Total Bilirubin AST ALT Alkaline Phosphatase Ammonia Total Protein Albumin TSH Free T4 Free T3 pg/mL 08/25/17 08/25/17 08/25/17 02:00 02:00 02:45 WBC 16.4 H RBC 4.45 Hgb 11.3 L Hct 35.6 L MCV 80 MCH 25.4 L MCHC 31.7 L RDW 17.6 H Plt Count 635 H Carbonic Acid 1.21 HCO3/H2CO3 Ratio 16:1 ABG pH 7.31 L ABG pCO2 40.3 ABG pO2 63.5 L ABG HCO3 19.7 L ABG O2 Saturation 90.3 L ABG Base Excess -6.2 FiO2 100% Sodium 148.3 H Potassium 3.0 L* Chloride 119 H Carbon Dioxide 18 L Anion Gap 11 BUN 19 Creatinine 0.72 Est GFR ( Amer) > 60 Est GFR (Non-Af Amer) > 60 Glucose 132 H Calcium 10.7 H Phosphorus 1.5 L Magnesium 1.6 Total Bilirubin AST ALT Alkaline Phosphatase Ammonia Total Protein Albumin TSH Free T4 Free T3 pg/mL 08/25/17 08/25/17 08/25/17 05:15 05:15 05:15 WBC 16.5 H RBC 4.02 L Hgb 10.3 L Hct 32.1 L MCV 80 MCH 25.5 L MCHC 32.0 RDW 17.5 H Plt Count 646 H Carbonic Acid HCO3/H2CO3 Ratio ABG pH ABG pCO2 ABG pO2 ABG HCO3 ABG O2 Saturation ABG Base Excess FiO2 Sodium 148.6 H Potassium 4.8 D Chloride 122 H Carbon Dioxide 18 L Anion Gap 9 BUN 18 Creatinine 0.75 Est GFR ( Amer) > 60 Est GFR (Non-Af Amer) > 60 Glucose 135 H Calcium 10.3 H Phosphorus 3.5 D Magnesium 1.5 L Total Bilirubin 0.2 AST 13 L ALT 14 L Alkaline Phosphatase 88 Ammonia < 8.7 L Total Protein 6.0 L Albumin 2.6 L TSH Free T4 Free T3 pg/mL 08/25/17 08/25/17 08/25/17 05:15 05:15 10:42 WBC RBC Hgb Hct MCV MCH MCHC RDW Plt Count Carbonic Acid 1.27 0.96 L HCO3/H2CO3 Ratio 14:1 14:1 ABG pH 7.27 L 7.27 L ABG pCO2 42.3 32.0 L ABG pO2 62.3 L 98.8 ABG HCO3 18.8 L 14.3 L ABG O2 Saturation 88.6 L 96.8 ABG Base Excess -7.9 -11.4 FiO2 90% 100% Sodium Potassium Chloride Carbon Dioxide Anion Gap BUN Creatinine Est GFR ( Amer) Est GFR (Non-Af Amer) Glucose Calcium Phosphorus Magnesium Total Bilirubin AST ALT Alkaline Phosphatase Ammonia Total Protein Albumin TSH 2.51 Free T4 1.48 Free T3 pg/mL 2.06 L 08/24/17 08/24/17 08/25/17 18:00 22:00 05:15 Creatine Kinase 140 117 82 Impressions: Chest X-Ray 08/25/17 06:44 IMPRESSION: Tip of an endotracheal tube is 7 cm from the belgica; recommend 2 cm advancement. Assessment & Plan - Diagnosis (1) Groin abscess Is this a current diagnosis for this admission?: Yes Plan: Patient still have copious amount of purulent drainage from his groin wound and he is appearing septic. I believe he would benefit from more extensive debridement in the operating room. I have discussed with the patient's sister, Elizabeth Borges, about risks and benefits of the procedure, including bleeding and spreading of infection. She will consider this recommendation and will get back to us.
[2017-08-25] MEDS: INSULIN LISPRO 100 UNIT/ML 3 ML VIAL SUBCUT PRN ×2 (13:15→16:28)
[2017-08-25] MEDS ORDERED: ENOXAPARIN SODIUM INJ 40 MG/0.4 ML DISP.SYRIN SUBCUT ONE (14:00)
[2017-08-25 15:49] LABS: HEMATOCRIT 34.5 % (37.9-51.0); HEMOGLOBIN 10.8 g/dL (13.5-17.0); MEAN CORPUSCULAR HEMOGLOBIN 25.3 pg (27.0-33.4); MEAN CORPUSCULAR HGB CONC 31.4 g/dL (32.0-36.0); MEAN CORPUSCULAR VOLUME 81 fl (80-97); PLATELET COUNT 515 10^3/uL (150-450); RED BLOOD COUNT 4.29 10^6/uL (4.35-5.55); RED CELL DISTRIBUTION WIDTH 18.1 % (11.5-14.0); WHITE BLOOD COUNT 14.5 10^3/uL (4.0-10.5)
[2017-08-25 16:11] LABS: ANION GAP 14 (5-19); BLOOD UREA NITROGEN 10 mg/dL (7-20); CALCIUM 9.7 mg/dL (8.4-10.2); CARBON DIOXIDE 13 mmol/L (22-30); CHLORIDE 117 mmol/L (98-107); PHOSPHORUS 1.9 mg/dL (2.5-4.5); POTASSIUM 4.2 mmol/L (3.6-5.0); SODIUM 143.6 mmol/L (137-145)
[2017-08-25 16:29] LABS: GLUCOSE 434 mg/dL (75-110)
[2017-08-25] MEDS ORDERED: KETAMINE HCL INJ 500 MG/10 ML VIAL ONE (17:38)
[2017-08-25] MEDS ORDERED: FENTANYL CITRATE INJ/PF 100 MCG/2 ML AMPUL ONE (17:38)
[2017-08-25] MEDS ORDERED: BUPIVACAINE HCL 0.25 % INJ/PF (2.5 MG/1 ML) 30 ML VIAL ONE (17:38)
[2017-08-25] MEDS ORDERED: MIDAZOLAM 2 MG/2 ML INJ ONE (17:38)
[2017-08-25] MEDS: DEXTROSE 5%-WATER 250 ML with NOREPINEPHRINE BITARTRATE 4 MG IV PRN ×2 (17:54)
[2017-08-25] MEDS: MIDAZOLAM HCL 50 MG/100 ML RTUINJ IV PRN (17:56)
[2017-08-25 17:57] LABS: ARTERIAL BLOOD BASE EXCESS -8.9 mmol/L; ARTERIAL BLOOD H2CO3 1.16 mmol/L (1.05-1.35); ARTERIAL BLOOD HCO3 17.3 mmol/L (20-26); ARTERIAL BLOOD O2 SATURATION 98.3 % (94-98); ARTERIAL BLOOD PCO2 38.5 mmHg (35-45); ARTERIAL BLOOD PH 7.27 (7.35-7.45); ARTERIAL BLOOD PO2 131.3 mmHg (80-100); ARTERIAL BLOOD TOTAL CO2 18.5 mmol/L (23-27)
[2017-08-25 17:59] LABS: ARTERIAL BLOOD FIO2 100%
[2017-08-25] MEDS ORDERED: BUPIVACAINE HCL 0.5%-EPI 1:200000 INJ/PF 30 ML VIAL ONE (18:55)
--- NOTE | 2017-08-25 19:19 | Operative Report ---
Operative Report DATE OF SURGERY: 08/25/17 PREOPERATIVE DIAGNOSIS: Groin and perineal and upper thigh hidradenitis suppurativa, complicated with abscesses POSTOPERATIVE DIAGNOSIS: Same OPERATION: Excisional debridement of hidradenitis suppurativa abscesses of the perineum, groin and the left posterior upper thigh SURGEON: RICHIE ESQUIVEL ANESTHESIA: GA TISSUE REMOVED OR ALTERED: Pus sent for Gram stain and culture. Posterior upper thigh skin submitted to histology. Left groin skin submitted to pathology. COMPLICATIONS: None ESTIMATED BLOOD LOSS: 100 cc INTRAOPERATIVE FINDINGS: Bilateral groin and perineum and left posterior upper thigh with markedly thickened skin with severe scarring with a approximately 4 x 6 cm abscess in the left groin and similar size abscess in the left posterior upper thigh. Multiple sinus tracts draining out pus. PROCEDURE: Informed consent was obtained. Patient was brought to the operating room and placed on the operating table in supine position. After satisfactory induction of general anesthesia patient was placed in a lithotomy position and his perineum bilateral groin and the posterior upper thigh were prepped and draped in the usual sterile fashion. Patient had multiple sinus tracts with markedly thickened skin with extensive scarring throughout his bilateral groin and perineum. There was also marked scarring and skin thickening with skin distortion at the posterior upper medial thigh. This region was probed where there were a long linear chronic scar opening and I entered a abscess cavity with drainage of copious amount of pus. To obtain adequate drainage of this large abscess cavity the skin edges of this track was excised and submitted to pathology. This unroofed the large abscess which was then all curetted out. In the left groin patient had a similar finding with a large abscess again sliver of very abnormal skin was excised allowing drainage of this abscess pocket. The 2 large abscess pockets were connected and a Jaun drain was placed through the connection to allow adequate drainage. There were multiple small sinus tracts which were pried apart with a hemostat and curetted. But I did not encounter any other large abscess pockets. Hemostasis was achieved with electrocautery. The wound was all irrigated and the larger wounds were packed with gauze smaller wounds were also packed. Dressings were applied patient tolerated procedure well with no apparent complications and was taken to the recovery area in stable condition.
[2017-08-25] MEDS ORDERED: HYDROMORPHONE HCL INJ/PF 2 MG/ML AMPULE IV PRN (19:21)
[2017-08-25] MEDS ORDERED: INSULIN REG, HUMAN 100 UNIT/ML 3 ML VIAL (PYX) ONE (20:01)
[2017-08-25] MEDS ORDERED: INSULIN, REGULAR 100 UNIT/100 ML NORMAL SALINE IV PRN ×2 (20:10)
[2017-08-25] MEDS ORDERED: INFLUENZA ADLT QUAD (36MOS+) 2017-18 VAC 0.5 ML SYR IM PRN (20:23)
[2017-08-25 21:32] LABS: APPEARANCE,URINE TURBID; BILIRUBIN,URINE NEGATIVE (NEGATIVE); COLOR,URINE YELLOW; GLUCOSE, URINE >=500 mg/dL (NEGATIVE); KETONES,URINE NEGATIVE (NEGATIVE); LEUKOCYTE ESTERASE,URINE NEGATIVE (NEGATIVE); NITRITE,URINE NEGATIVE (NEGATIVE); PROTEIN,URINE 30 mg/dL (NEGATIVE); URINE SPECIFIC GRAVITY 1.009; UROBILINOGEN,URINE NEGATIVE mg/dL (<2.0)
[2017-08-25] MEDS ORDERED: CLINDAMYCIN 900 MG/D5W RTU 50 ML IV ONE (22:30)
[2017-08-25 22:32] LABS: ANION GAP 11 (5-19); BLOOD UREA NITROGEN 7 mg/dL (7-20); CALCIUM 9.2 mg/dL (8.4-10.2); CARBON DIOXIDE 15 mmol/L (22-30); CHLORIDE 120 mmol/L (98-107); GLUCOSE 278 mg/dL (75-110); PHOSPHORUS 2.5 mg/dL (2.5-4.5); POTASSIUM 3.7 mmol/L (3.6-5.0); SODIUM 145.8 mmol/L (137-145)
[2017-08-25 22:56] LABS: HEMATOCRIT 32.9 % (37.9-51.0); HEMOGLOBIN 10.1 g/dL (13.5-17.0); MEAN CORPUSCULAR HEMOGLOBIN 25.1 pg (27.0-33.4); MEAN CORPUSCULAR HGB CONC 30.8 g/dL (32.0-36.0); MEAN CORPUSCULAR VOLUME 82 fl (80-97); PLATELET COUNT 495 10^3/uL (150-450); RED BLOOD COUNT 4.04 10^6/uL (4.35-5.55); RED CELL DISTRIBUTION WIDTH 17.5 % (11.5-14.0); WHITE BLOOD COUNT 18.1 10^3/uL (4.0-10.5)
[2017-08-26] MEDS: NORMAL SALINE 500 ML with ROCURONIUM BROMIDE 500 MG IV PRN ×2 (00:16)
[2017-08-26] MEDS: POTASSI CL 20 MEQ/D5-1/2NS 1L 1,000 ML IV PRN ×2 (00:18→07:00)
[2017-08-26] MEDS: IPRATROPIUM/ALBUTEROL 0.5-2.5 MG/3 ML AMPUL NEB SCH ×6 (00:20→20:45)
[2017-08-26] MEDS: MIDAZOLAM HCL 50 MG/100 ML RTUINJ IV PRN (00:39)
[2017-08-26] MEDS: DEXTROSE 5%-WATER 250 ML with NOREPINEPHRINE BITARTRATE 4 MG IV PRN ×6 (02:17→16:33)
[2017-08-26] MEDS: PIPERACILLIN SODIUM/TAZOBACTAM 4.5 GM in NORMAL SALINE 100 ML IV SCH ×4 (02:17→21:52)
[2017-08-26 04:31] LABS: ARTERIAL BLOOD BASE EXCESS -9.9 mmol/L; ARTERIAL BLOOD H2CO3 1.25 mmol/L (1.05-1.35); ARTERIAL BLOOD HCO3 17.1 mmol/L (20-26); ARTERIAL BLOOD O2 SATURATION 91.8 % (94-98); ARTERIAL BLOOD PCO2 41.5 mmHg (35-45); ARTERIAL BLOOD PH 7.23 (7.35-7.45); ARTERIAL BLOOD PO2 72.5 mmHg (80-100); ARTERIAL BLOOD TOTAL CO2 18.3 mmol/L (23-27); HEMATOCRIT 32.4 % (37.9-51.0); HEMOGLOBIN 10.1 g/dL (13.5-17.0); MEAN CORPUSCULAR HEMOGLOBIN 25.2 pg (27.0-33.4); MEAN CORPUSCULAR HGB CONC 31.4 g/dL (32.0-36.0); MEAN CORPUSCULAR VOLUME 81 fl (80-97); PLATELET COUNT 483 10^3/uL (150-450); RED BLOOD COUNT 4.02 10^6/uL (4.35-5.55); RED CELL DISTRIBUTION WIDTH 17.4 % (11.5-14.0); WHITE BLOOD COUNT 19.8 10^3/uL (4.0-10.5)
[2017-08-26] MEDS: PROPOFOL 100 ML IV PRN ×2 (04:32→15:03)
[2017-08-26 04:34] LABS: ARTERIAL BLOOD FIO2 80%
[2017-08-26 04:40] LABS: ANION GAP 10 (5-19); BLOOD UREA NITROGEN 6 mg/dL (7-20); CALCIUM 9.4 mg/dL (8.4-10.2); CARBON DIOXIDE 16 mmol/L (22-30); CHLORIDE 118 mmol/L (98-107); GLUCOSE 173 mg/dL (75-110); PHOSPHORUS 3.2 mg/dL (2.5-4.5); POTASSIUM 3.7 mmol/L (3.6-5.0); SODIUM 144.3 mmol/L (137-145)
[2017-08-26 04:49] LABS: ABSOLUTE LYMPHOCYTES# (MANUAL) 2.8 10^3/uL (0.5-4.7); ABSOLUTE MONOCYTES # (MANUAL) 0.6 10^3/uL (0.1-1.4); ABSOLUTE NEUTROPHILS# (MANUAL) 16.2 10^3/uL (1.7-8.2); BASOPHILS % (MANUAL) 0 % (0-2); EOSINOPHILS % (MANUAL) 1 % (0-6); LYMPHOCYTES % (MANUAL) 14 % (13-45); MONOCYTES % (MANUAL) 3 % (3-13); NUCLEATED RED BLOOD CELLS 1 /100 WBC (0); SEGMENTED NEUTROPHILS % (MAN) 48 % (42-78); TOTAL CELLS COUNTED 100
[2017-08-26 04:52] LABS: ANISOCYTOSIS 1+; HYPOCHROMASIA 2+; POIKILOCYTOSIS 1+; POLYCHROMASIA SLIGHT; TOXIC VACUOLATION PRESENT
[2017-08-26 04:53] LABS: BURR CELLS 2+; PLATELET COMMENT INCREASED; PLATELET LARGE PRESENT; TARGET CELLS SLIGHT
[2017-08-26 04:55] LABS: BAND NEUTROPHILS % (MANUAL) 34 % (3-5)
[2017-08-26] MEDS: CLINDAMYCIN 900 MG/D5W RTU 50 ML IV SCH ×2 (05:02→15:08)
--- NOTE | 2017-08-26 06:40 | RADIOLOGY REPORT (SQ) ---
COMPARISON: 08/25/17. NUMBER OF VIEWS/TECHNIQUE: 1/AP LIMITATIONS: None. FINDINGS: Mixed moderate airspace patchiness and mild interstitial markings include patchiness of bilateral lower lung sandoval, right more than left, and small right basilar patchiness. Normal cardiac silhouette. Adequate appearing endotracheal tube, left jugular central line tip at the cavoatrial junction, and enteric tube. Left upper abdominal clips. No pneumothorax. No acute bone defect. IMPRESSION: Interval worsening includes moderate patchiness of the right lower lobe.
--- NOTE | 2017-08-26 09:31 | PDOC PROGRESS REPORT ---
Subjective Progress Note for:: 08/26/17 Subjective:: Intubated, sedated, chemically paralyzed Reason For Visit: DKA, SEPSIS Physical Exam Vital Signs: Temp Pulse Resp BP Pulse Ox 98.4 F 110 H 28 H 85/65 L 95 08/26/17 05:38 08/26/17 05:38 08/26/17 06:00 08/26/17 05:48 08/26/17 06:00 Intake & Output 08/25/17 08/26/17 08/27/17 06:59 06:59 06:59 Intake Total 1718 5954 Output Total 850 2735 Balance 868 3219 Weight 54.6 kg 58.9 kg Skin exam: PRESENT: other - packing was removed from the wound. There is no draining pus. There is some granulation tissue present. Skin in perineum thickened. Results Laboratory Results: 08/26/17 04:10 08/26/17 04:10 08/25/17 08/25/17 08/25/17 12:00 15:35 15:35 WBC 14.5 H RBC 4.29 L Hgb 10.8 L Hct 34.5 L MCV 81 MCH 25.3 L MCHC 31.4 L RDW 18.1 H Plt Count 515 H Seg Neutrophils % Lymphocytes % Monocytes % Eosinophils % Basophils % Absolute Neutrophils Absolute Lymphocytes Absolute Monocytes Absolute Eosinophils Absolute Basophils Carbonic Acid 0.96 L HCO3/H2CO3 Ratio 14:1 ABG pH 7.27 L ABG pCO2 32.0 L ABG pO2 98.8 ABG HCO3 14.3 L ABG O2 Saturation 96.8 ABG Base Excess -11.4 FiO2 100% Sodium 143.6 Potassium 4.2 Chloride 117 H Carbon Dioxide 13 L Anion Gap 14 BUN 10 Creatinine 0.65 Est GFR ( Amer) > 60 Est GFR (Non-Af Amer) > 60 Glucose 434 H* Lactic Acid Calcium 9.7 Phosphorus 1.9 L Magnesium 2.4 H Urine Color Urine Appearance Urine pH Ur Specific [place] Urine Protein Urine Glucose (UA) Urine Ketones Urine Blood Urine Nitrite Ur Leukocyte Esterase Urine WBC (Auto) Urine RBC (Auto) 08/25/17 08/25/17 08/25/17 15:35 17:40 19:32 WBC RBC Hgb Hct MCV MCH MCHC RDW Plt Count Seg Neutrophils % Lymphocytes % Monocytes % Eosinophils % Basophils % Absolute Neutrophils Absolute Lymphocytes Absolute Monocytes Absolute Eosinophils Absolute Basophils Carbonic Acid 1.16 HCO3/H2CO3 Ratio 14:1 ABG pH 7.27 L ABG pCO2 38.5 ABG pO2 131.3 H ABG HCO3 17.3 L ABG O2 Saturation 98.3 H ABG Base Excess -8.9 FiO2 100% Sodium Potassium Chloride Carbon Dioxide Anion Gap BUN Creatinine Est GFR ( Amer) Est GFR (Non-Af Amer) Glucose Lactic Acid 2.8 H 2.7 H Calcium Phosphorus Magnesium Urine Color Urine Appearance Urine pH Ur Specific [place] Urine Protein Urine Glucose (UA) Urine Ketones Urine Blood Urine Nitrite Ur Leukocyte Esterase Urine WBC (Auto) Urine RBC (Auto) 08/25/17 08/25/17 08/25/17 21:15 22:00 22:40 WBC 18.1 H RBC 4.04 L Hgb 10.1 L Hct 32.9 L MCV 82 MCH 25.1 L MCHC 30.8 L RDW 17.5 H Plt Count 495 H Seg Neutrophils % Lymphocytes % Monocytes % Eosinophils % Basophils % Absolute Neutrophils Absolute Lymphocytes Absolute Monocytes Absolute Eosinophils Absolute Basophils Carbonic Acid HCO3/H2CO3 Ratio ABG pH ABG pCO2 ABG pO2 ABG HCO3 ABG O2 Saturation ABG Base Excess FiO2 Sodium 145.8 H Potassium 3.7 Chloride 120 H Carbon Dioxide 15 L Anion Gap 11 BUN 7 Creatinine 0.55 Est GFR ( Amer) > 60 Est GFR (Non-Af Amer) > 60 Glucose 278 H Lactic Acid Calcium 9.2 Phosphorus 2.5 Magnesium 1.9 Urine Color YELLOW Urine Appearance TURBID Urine pH 5.0 Ur Specific [place] 1.009 Urine Protein 30 H Urine Glucose (UA) >=500 H Urine Ketones NEGATIVE Urine Blood SMALL H Urine Nitrite NEGATIVE Ur Leukocyte Esterase NEGATIVE Urine WBC (Auto) 2 Urine RBC (Auto) 1 08/26/17 08/26/17 08/26/17 04:10 04:10 04:10 WBC 19.8 H RBC 4.02 L Hgb 10.1 L Hct 32.4 L MCV 81 MCH 25.2 L MCHC 31.4 L RDW 17.4 H Plt Count 483 H Seg Neutrophils % Not Reportable Lymphocytes % Not Reportable Monocytes % Not Reportable Eosinophils % Not Reportable Basophils % Not Reportable Absolute Neutrophils Not Reportable Absolute Lymphocytes Not Reportable Absolute Monocytes Not Reportable Absolute Eosinophils Not Reportable Absolute Basophils Not Reportable Carbonic Acid 1.25 HCO3/H2CO3 Ratio 13:1 ABG pH 7.23 L ABG pCO2 41.5 ABG pO2 72.5 L ABG HCO3 17.1 L ABG O2 Saturation 91.8 L ABG Base Excess -9.9 FiO2 80% Sodium 144.3 Potassium 3.7 Chloride 118 H Carbon Dioxide 16 L Anion Gap 10 BUN 6 L Creatinine 0.59 Est GFR ( Amer) > 60 Est GFR (Non-Af Amer) > 60 Glucose 173 H Lactic Acid Calcium 9.4 Phosphorus 3.2 Magnesium 1.7 Urine Color Urine Appearance Urine pH Ur Specific [place] Urine Protein Urine Glucose (UA) Urine Ketones Urine Blood Urine Nitrite Ur Leukocyte Esterase Urine WBC (Auto) Urine RBC (Auto) 08/24/17 08/24/17 08/25/17 18:00 22:00 05:15 Creatine Kinase 140 117 82 Impressions: Chest X-Ray 08/26/17 06:00 IMPRESSION: Interval worsening includes moderate patchiness of the right lower lobe. Assessment & Plan - Diagnosis (1) Abscess or cellulitis of perineum Is this a current diagnosis for this admission?: Yes Plan: continue local wound care with wet to dry dressing changes q 8 h. He has worsening infiltrate on CXR. Continue abx, vent support per [facility]
--- NOTE | 2017-08-26 09:42 | PDOC PROGRESS REPORT ---
Subjective Progress Note for:: 08/26/17 Subjective:: The patient is a 51-year-old male who presented yesterday with sepsis and DKA. The patient has a history of severe perineal hidradenitis suppurativa. He presented with a large groin abscess in the left groin, perineum, and left posterior upper thigh. On 08/24/17 he was emergently taken to surgery for drainage of this chronic abscess. His respiratory status declined later during the evening of 08/24/17 and he was intubated. He now has an excessive oxygen requirement. Due to his obtundation upon presentation he may have aspirated. He may be developing ARDS. His chest x-ray today demonstrates a progressive infiltrate in the right lower lobe. On 08/25/2017 the patient was taken back to the operating room to undergo additional debridement. Secondary to chronic hidradenitis suppurativa the patient has formed abscesses of the perineum, groin and left posterior upper thigh. Culture today demonstrates gram-positive rods. Clindamycin was started today in addition to Zosyn and vancomycin. Specimens have also been sent to pathology. The patient remains intubated, sedated and paralyzed. Reason For Visit: DKA, SEPSIS Physical Exam Vital Signs: Temp Pulse Resp BP Pulse Ox 98.4 F 110 H 28 H 85/65 L 95 08/26/17 05:38 08/26/17 05:38 08/26/17 06:00 08/26/17 05:48 08/26/17 06:00 Intake & Output 08/25/17 08/26/17 08/27/17 06:59 06:59 06:59 Intake Total 1718 5954 Output Total 080 2735 Balance 868 3219 Weight 54.6 kg 58.9 kg Additional comments: The patient is intubated. He is sedated and paralyzed. The patient's facial appearance is noteworthy for presence of the endotracheal tube. His neck is supple. His lungs are very coarse today. He has had progressive rales develop over the last 48 hours. His cardiac exam demonstrates a regular rate and rhythm without murmurs, gallops or rubs. The abdomen is very soft. Bowel sounds are present but are hypoactive. The patient has bilious liquid stool in his ostomy bag. The abdomen however feels benign without masses, guarding or rebound. The lower extremities are extremely thin. The patient has not developed any edema. The lower extremities are cool to touch. The operative sites is up are packed. The left groin site has a Jewett drain in place. No purulent material was visible this morning. The site on the patient's back at area T6-T9 appears to be more erythematous. A scab has formed over this area. There is edema there with mild fluctuance. Results Laboratory Results: 08/26/17 04:10 08/26/17 04:10 08/25/17 08/25/17 08/25/17 12:00 15:35 15:35 WBC 14.5 H RBC 4.29 L Hgb 10.8 L Hct 34.5 L MCV 81 MCH 25.3 L MCHC 31.4 L RDW 18.1 H Plt Count 515 H Seg Neutrophils % Lymphocytes % Monocytes % Eosinophils % Basophils % Absolute Neutrophils Absolute Lymphocytes Absolute Monocytes Absolute Eosinophils Absolute Basophils Carbonic Acid 0.96 L HCO3/H2CO3 Ratio 14:1 ABG pH 7.27 L ABG pCO2 32.0 L ABG pO2 98.8 ABG HCO3 14.3 L ABG O2 Saturation 96.8 ABG Base Excess -11.4 FiO2 100% Sodium 143.6 Potassium 4.2 Chloride 117 H Carbon Dioxide 13 L Anion Gap 14 BUN 10 Creatinine 0.65 Est GFR ( Amer) > 60 Est GFR (Non-Af Amer) > 60 Glucose 434 H* Lactic Acid Calcium 9.7 Phosphorus 1.9 L Magnesium 2.4 H Urine Color Urine Appearance Urine pH Ur Specific [place] Urine Protein Urine Glucose (UA) Urine Ketones Urine Blood Urine Nitrite Ur Leukocyte Esterase Urine WBC (Auto) Urine RBC (Auto) 08/25/17 08/25/17 08/25/17 15:35 17:40 19:32 WBC RBC Hgb Hct MCV MCH MCHC RDW Plt Count Seg Neutrophils % Lymphocytes % Monocytes % Eosinophils % Basophils % Absolute Neutrophils Absolute Lymphocytes Absolute Monocytes Absolute Eosinophils Absolute Basophils Carbonic Acid 1.16 HCO3/H2CO3 Ratio 14:1 ABG pH 7.27 L ABG pCO2 38.5 ABG pO2 131.3 H ABG HCO3 17.3 L ABG O2 Saturation 98.3 H ABG Base Excess -8.9 FiO2 100% Sodium Potassium Chloride Carbon Dioxide Anion Gap BUN Creatinine Est GFR ( Amer) Est GFR (Non-Af Amer) Glucose Lactic Acid 2.8 H 2.7 H Calcium Phosphorus Magnesium Urine Color Urine Appearance Urine pH Ur Specific [place] Urine Protein Urine Glucose (UA) Urine Ketones Urine Blood Urine Nitrite Ur Leukocyte Esterase Urine WBC (Auto) Urine RBC (Auto) 08/25/17 08/25/17 08/25/17 21:15 22:00 22:40 WBC 18.1 H RBC 4.04 L Hgb 10.1 L Hct 32.9 L MCV 82 MCH 25.1 L MCHC 30.8 L RDW 17.5 H Plt Count 495 H Seg Neutrophils % Lymphocytes % Monocytes % Eosinophils % Basophils % Absolute Neutrophils Absolute Lymphocytes Absolute Monocytes Absolute Eosinophils Absolute Basophils Carbonic Acid HCO3/H2CO3 Ratio ABG pH ABG pCO2 ABG pO2 ABG HCO3 ABG O2 Saturation ABG Base Excess FiO2 Sodium 145.8 H Potassium 3.7 Chloride 120 H Carbon Dioxide 15 L Anion Gap 11 BUN 7 Creatinine 0.55 Est GFR ( Amer) > 60 Est GFR (Non-Af Amer) > 60 Glucose 278 H Lactic Acid Calcium 9.2 Phosphorus 2.5 Magnesium 1.9 Urine Color YELLOW Urine Appearance TURBID Urine pH 5.0 Ur Specific [place] 1.009 Urine Protein 30 H Urine Glucose (UA) >=500 H Urine Ketones NEGATIVE Urine Blood SMALL H Urine Nitrite NEGATIVE Ur Leukocyte Esterase NEGATIVE Urine WBC (Auto) 2 Urine RBC (Auto) 1 08/26/17 08/26/17 08/26/17 04:10 04:10 04:10 WBC 19.8 H RBC 4.02 L Hgb 10.1 L Hct 32.4 L MCV 81 MCH 25.2 L MCHC 31.4 L RDW 17.4 H Plt Count 483 H Seg Neutrophils % Not Reportable Lymphocytes % Not Reportable Monocytes % Not Reportable Eosinophils % Not Reportable Basophils % Not Reportable Absolute Neutrophils Not Reportable Absolute Lymphocytes Not Reportable Absolute Monocytes Not Reportable Absolute Eosinophils Not Reportable Absolute Basophils Not Reportable Carbonic Acid 1.25 HCO3/H2CO3 Ratio 13:1 ABG pH 7.23 L ABG pCO2 41.5 ABG pO2 72.5 L ABG HCO3 17.1 L ABG O2 Saturation 91.8 L ABG Base Excess -9.9 FiO2 80% Sodium 144.3 Potassium 3.7 Chloride 118 H Carbon Dioxide 16 L Anion Gap 10 BUN 6 L Creatinine 0.59 Est GFR ( Amer) > 60 Est GFR (Non-Af Amer) > 60 Glucose 173 H Lactic Acid Calcium 9.4 Phosphorus 3.2 Magnesium 1.7 Urine Color Urine Appearance Urine pH Ur Specific [place] Urine Protein Urine Glucose (UA) Urine Ketones Urine Blood Urine Nitrite Ur Leukocyte Esterase Urine WBC (Auto) Urine RBC (Auto) 08/24/17 08/24/17 08/25/17 18:00 22:00 05:15 Creatine Kinase 140 117 82 Impressions: Chest X-Ray 08/26/17 06:00 IMPRESSION: Interval worsening includes moderate patchiness of the right lower lobe. Assessment & Plan - Diagnosis (1) Diabetic keto-acidosis Qualifiers: Diabetes mellitus type: type 1 Diabetes mellitus complication detail: without coma Qualified Code(s): E10.10 - Type 1 diabetes mellitus with ketoacidosis without coma Is this a current diagnosis for this admission?: Yes Plan: The patient is no longer in DKA, however, his blood sugars are very labile. For now, we will continue the insulin drip. (2) Hypothermia Is this a current diagnosis for this admission?: Yes Plan: Resolved. (3) Severe protein-calorie malnutrition Is this a current diagnosis for this admission?: Yes Plan: Prolonged mechanical ventilation is expected. Once the patient's IV vasopressor requirement is minimal we should add tube feeds as soon as possible. (4) Groin abscess Is this a current diagnosis for this admission?: Yes Plan: General surgeries prompt intervention is greatly appreciated. Cultures now demonstrate gram-positive rods. Patient is currently on vancomycin, Zosyn and clindamycin. We can begin to tailor therapy once additional information from the cultures is available. (5) Laceration of skin overlying spine Is this a current diagnosis for this admission?: Yes Plan: This will be evaluated further with CT scan. (6) Abscess or cellulitis of perineum Is this a current diagnosis for this admission?: Yes Plan: See plan above. (7) CHRONIC PERINEAL inflammation Is this a current diagnosis for this admission?: Yes Plan: Patient has chronic severe perennial hidradenitis suffered. He has been receiving care at the wound care clinic in [place]. (8) Crohns disease Qualifiers: Gastrointestinal tract location: unspecified location Is this a current diagnosis for this admission?: Yes Plan: This has been mentioned before in the patient's chart. There is no mention of any fistula formation from the surgical reports. Disease at this time does not appear to be consistent with Crohn's disease/Crohn's flare. (9) Diabetes mellitus Qualifiers: Diabetes mellitus type: type 1 Diabetes mellitus complication status: with unspecified complications Qualified Code(s): E10.8 - Type 1 diabetes mellitus with unspecified complications Is this a current diagnosis for this admission?: Yes (10) Sepsis Qualifiers: Sepsis type: sepsis due to unspecified organism Qualified Code(s): A41.9 - Sepsis, unspecified organism Is this a current diagnosis for this admission?: Yes Plan: Continue IV vasopressors. Wean as tolerated. (11) Euthyroid sick syndrome Is this a current diagnosis for this admission?: Yes Plan: Labs will need to be repeated when the patient is more stable. (12) Acute respiratory failure with hypoxia Is this a current diagnosis for this admission?: Yes Plan: The patient remains intubated. He has an excessive oxygen requirement. Due to his presentation I am concerned about aspiration. However, he he is at risk of both community-acquired organisms and hospital meño. I appreciate Dr. Fair' s assistance with ventilator management. I will make sure a sputum culture has been obtained. (13) Septic shock Is this a current diagnosis for this admission?: Yes Plan: Patient is currently in septic shock. He presents with evidence of leukocytosis , tachycardia, severe hypothermia and an obvious an overwhelming infection. Continue supportive care with IV fluids and IV vasopressors. (14) Pneumonia Qualifiers: Pneumonia type: due to unspecified organism Laterality: right Lung location: upper lobe of lung Qualified Code(s): J18.1 - Lobar pneumonia, unspecified organism Is this a current diagnosis for this admission?: Yes Plan: We will continue current antibiotics for now. I will also try to obtain a sputum culture. - Time Time Spent with patient: 35 or more minutes - Inpatient Certification Medical Necessity: Significant Comorbidiites Make Outpatient Treatment Too Risky - The patient remains critically ill with multisystem organ failure. He is intubated and in the intensive care unit., Need Close Monitoring Due to Risk of Patient Decompensation, Need For IV Fluids, Need for IV Antibiotics, Need for Surgery, Risk of Complication if Not Cared For in Hospital, Risk of Diagnosis Which Will Require Inpatient Eval/Care/Monitoring
[2017-08-26] MEDS: VANCOMYCIN HCL 750 MG in DEXTROSE 5%-WATER 250 ML IV SCH (10:34)
[2017-08-26] MEDS: ENOXAPARIN SODIUM INJ 40 MG/0.4 ML DISP.SYRIN SUBCUT SCH (10:35)
[2017-08-26] MEDS: FAMOTIDINE INJ/PF 20 MG/2 ML SDV IV SCH (10:35)
[2017-08-26 11:07] LABS: ANION GAP 11 (5-19); BLOOD UREA NITROGEN 6 mg/dL (7-20); CALCIUM 9.1 mg/dL (8.4-10.2); CARBON DIOXIDE 18 mmol/L (22-30); CHLORIDE 115 mmol/L (98-107); GLUCOSE 154 mg/dL (75-110); PHOSPHORUS 3.5 mg/dL (2.5-4.5); POTASSIUM 4.2 mmol/L (3.6-5.0); SODIUM 144.4 mmol/L (137-145)
[2017-08-26 11:11] LABS: VANCOMYCIN,TROUGH 10.1 ug/mL (5.0-20.0)
[2017-08-26 11:35] LABS: PATH REVIEW PATHOLOGIST REVIEWED
[2017-08-26] MEDS: POTASSI CL 20 MEQ/D5LR 1L 20 MEQ/1,000 ML RTUINJ IV PRN (15:15)
--- NOTE | 2017-08-26 16:51 | RADIOLOGY REPORT (SQ) ---
EXAM DESCRIPTION: CT THORACIC SPINE WITH COMPLETED DATE/TIME: 08/26/2017 4:42 pm REASON FOR STUDY: Abscess/discitis COMPARISON: None. TECHNIQUE: Axial images acquired through the thoracic spine without intravenous contrast. Images re viewed with lung, soft tissue and bone windows. Reconstructed coronal and sagittal MPR images review ed. Images stored on PACS. All CT scanners at this facility use dose modulation, iterative reconstruction, and/or weight based d osing when appropriate to reduce radiation dose to as low as reasonably achievable (ALARA). [facility]: Dose Right [facility]: CareDose [facility]: Dose Right [facility]: Teradose 4D [facility]: [employer] RADIATION DOSE: CT Rad equipment meets quality standard of care and radiation dose reduction techniq ues were employed. CTDIvol: 11.1 mGy. DLP: 475 mGy-cm. mGy. LIMITATIONS: None. FINDINGS: VISUALIZED LUNGS: Extensive airspace disease the posterior right lung. SOFT TISSUES: No paraspinal mass or abscess. VERTEBRAL BODIES: Chronic compression fracture of T7 and T9. No significant retropulsion. DISCS: Disc space narrowing at multiple levels. No evidence of vacuum disc or paraspinal mass. ALIGNMENT: Normal. TRANSVERSE PROCESSES, POSTERIOR ELEMENTS: No fractures. No dislocation. No acute findings. HARDWARE: None in the spine. VISUALIZED RIBS: No fractures. OTHER: No other significant finding. IMPRESSION: No acute findings in the thoracic spine. TECHNICAL DOCUMENTATION: JOB ID: [id number] Quality ID # [id number]: Final reports with documentation of one or more dose reduction techniques (e.g., Au tomated exposure control, adjustment of the mA and/or kV according to patient size, use of iterative reconstruction technique) 2010 [employer]- All Rights Reserved
[2017-08-26] MEDS: MAGNESIUM SULFATE/D5W 1 GM/100 ML RTUPB IV SCH ×2 (17:26→21:27)
[2017-08-26 18:49] LABS: ANION GAP 11 (5-19); BLOOD UREA NITROGEN 6 mg/dL (7-20); CALCIUM 9.3 mg/dL (8.4-10.2); CARBON DIOXIDE 18 mmol/L (22-30); CHLORIDE 114 mmol/L (98-107); GLUCOSE 111 mg/dL (75-110); PHOSPHORUS 3.6 mg/dL (2.5-4.5); SODIUM 142.5 mmol/L (137-145)
[2017-08-26 22:44] LABS: PHOSPHORUS 3.4 mg/dL (2.5-4.5)
[2017-08-26 22:55] LABS: ANION GAP 11 (5-19); BLOOD UREA NITROGEN 6 mg/dL (7-20); CALCIUM 9.2 mg/dL (8.4-10.2); CARBON DIOXIDE 19 mmol/L (22-30); CHLORIDE 113 mmol/L (98-107); GLUCOSE 98 mg/dL (75-110); POTASSIUM 3.9 mmol/L (3.6-5.0); SODIUM 143.2 mmol/L (137-145)
[2017-08-27] MEDS: CLINDAMYCIN 900 MG/D5W RTU 50 ML IV SCH ×2 (00:07→06:55)
[2017-08-27] MEDS: VANCOMYCIN HCL 1,000 MG in DEXTROSE 5%-WATER 250 ML IV SCH ×3 (00:07→23:55)
[2017-08-27] MEDS: FAMOTIDINE INJ/PF 20 MG/2 ML SDV IV SCH ×3 (00:07→23:59)
[2017-08-27] MEDS: PROPOFOL 100 ML IV PRN (00:08)
[2017-08-27] MEDS: POTASSI CL 20 MEQ/D5LR 1L 20 MEQ/1,000 ML RTUINJ IV PRN (00:28)
[2017-08-27] MEDS: MIDAZOLAM HCL 50 MG/100 ML RTUINJ IV PRN (00:29)
[2017-08-27] MEDS: IPRATROPIUM/ALBUTEROL 0.5-2.5 MG/3 ML AMPUL NEB SCH ×6 (00:39→20:29)
[2017-08-27 06:42] LABS: ARTERIAL BLOOD BASE EXCESS -3.4 mmol/L; ARTERIAL BLOOD H2CO3 1.19 mmol/L (1.05-1.35); ARTERIAL BLOOD HCO3 21.8 mmol/L (20-26); ARTERIAL BLOOD O2 SATURATION 98.4 % (94-98); ARTERIAL BLOOD PCO2 39.5 mmHg (35-45); ARTERIAL BLOOD PH 7.36 (7.35-7.45); ARTERIAL BLOOD PO2 128.1 mmHg (80-100)
[2017-08-27 06:45] LABS: ARTERIAL BLOOD FIO2 60%
[2017-08-27] MEDS: PIPERACILLIN SODIUM/TAZOBACTAM 4.5 GM in NORMAL SALINE 100 ML IV SCH ×4 (06:51→23:54)
[2017-08-27 06:57] LABS: BLOOD UREA NITROGEN 6 mg/dL (7-20); CARBON DIOXIDE 20 mmol/L (22-30); CHLORIDE 114 mmol/L (98-107); GLUCOSE 48 mg/dL (75-110); POTASSIUM 3.9 mmol/L (3.6-5.0); SODIUM 144.9 mmol/L (137-145)
[2017-08-27 06:58] LABS: ANION GAP 11 (5-19); PHOSPHORUS 3.6 mg/dL (2.5-4.5)
[2017-08-27 07:11] LABS: HEMATOCRIT 29.8 % (37.9-51.0); HEMOGLOBIN 9.5 g/dL (13.5-17.0); MEAN CORPUSCULAR HEMOGLOBIN 25.3 pg (27.0-33.4); MEAN CORPUSCULAR HGB CONC 31.9 g/dL (32.0-36.0); MEAN CORPUSCULAR VOLUME 79 fl (80-97); PLATELET COUNT 471 10^3/uL (150-450); RED BLOOD COUNT 3.76 10^6/uL (4.35-5.55); RED CELL DISTRIBUTION WIDTH 17.5 % (11.5-14.0); WHITE BLOOD COUNT 29.8 10^3/uL (4.0-10.5)
--- NOTE | 2017-08-27 07:50 | RADIOLOGY REPORT (SQ) ---
EXAM DESCRIPTION: CHEST SINGLE VIEW CLINICAL HISTORY: 51 years Male, pna/resp COMPARISON: 08/26/17. NUMBER OF VIEWS/TECHNIQUE: 1/AP LIMITATIONS: None. FINDINGS: Small streakiness and patchiness of bilateral lower lung sandoval centrally, adequate appearing endotracheal tube and left jugular central line tip at the cavoatrial junction, normal cardiac silhouette. No pneumothorax. No acute bone defect. IMPRESSION: No significant change.
[2017-08-27 08:07] LABS: ABSOLUTE LYMPHOCYTES# (MANUAL) 3.6 10^3/uL (0.5-4.7); ABSOLUTE MONOCYTES # (MANUAL) 0.3 10^3/uL (0.1-1.4); ABSOLUTE NEUTROPHILS# (MANUAL) 25.6 10^3/uL (1.7-8.2); BAND NEUTROPHILS % (MANUAL) 27 % (3-5); BASOPHILS % (MANUAL) 0 % (0-2); EOSINOPHILS % (MANUAL) 1 % (0-6); LYMPHOCYTES % (MANUAL) 12 % (13-45); MONOCYTES % (MANUAL) 1 % (3-13); SEGMENTED NEUTROPHILS % (MAN) 59 % (42-78); TOTAL CELLS COUNTED 100
[2017-08-27 08:12] LABS: HYPOCHROMASIA SLIGHT; POIKILOCYTOSIS SLIGHT; TOXIC GRANULATION 1+; TOXIC VACUOLATION PRESENT
[2017-08-27 08:13] LABS: PLATELET COMMENT ADEQUATE; PLATELET LARGE PRESENT; TARGET CELLS SLIGHT
[2017-08-27] MEDS: FLUCONAZOLE 400 MG/NS RTU 400 MG/200 ML RTUPB IV SCH (09:26)
[2017-08-27] MEDS: NORMAL SALINE 500 ML with ROCURONIUM BROMIDE 500 MG IV PRN ×2 (09:27)
[2017-08-27] MEDS: ENOXAPARIN SODIUM INJ 40 MG/0.4 ML DISP.SYRIN SUBCUT SCH (09:32)
[2017-08-27 11:03] LABS: ANION GAP 10 (5-19); BLOOD UREA NITROGEN 6 mg/dL (7-20); CALCIUM 8.4 mg/dL (8.4-10.2); CARBON DIOXIDE 18 mmol/L (22-30); CHLORIDE 115 mmol/L (98-107); GLUCOSE 124 mg/dL (75-110); PHOSPHORUS 4.1 mg/dL (2.5-4.5); POTASSIUM 3.6 mmol/L (3.6-5.0)
[2017-08-27] MEDS ORDERED: HYDROMORPHONE HCL INJ/PF 2 MG/ML AMPULE IV PRN (11:43)
[2017-08-27] MEDS: DEXTROSE 5%-WATER 250 ML with PHENYLEPHRINE HCL 40 MG IV PRN ×4 (12:57→17:33)
[2017-08-27] MEDS: METRONIDAZOLE 500 MG/NS RTU 100 ML IV SCH ×3 (12:58→23:59)
[2017-08-27] MEDS ORDERED: GLUCAGON,HUMAN RECOMB 1 MG INJ IM PRN (13:23)
[2017-08-27] MEDS ORDERED: DEXTROSE 40% GEL 15 GM TUBE X 2 PO PRN (13:23)
[2017-08-27] MEDS ORDERED: DEXTROSE 50%-WATER SYRINGE 12.5 GM/25 ML DOSE IV PRN (13:23)
[2017-08-27] MEDS ORDERED: DEXTROSE 40% GEL 15 GM TUBE PO PRN (13:23)
[2017-08-27] MEDS ORDERED: DEXTROSE 50%-WATER SYRINGE 25 GM/50 ML DOSE IV PRN (13:23)
[2017-08-27] MEDS ORDERED: RINGERS SOLUTION,LACTATED 1,000 ML IV ONE (14:00)
[2017-08-27 15:38] LABS: ANION GAP 19 (5-19); BLOOD UREA NITROGEN 6 mg/dL (7-20); CALCIUM 8.4 mg/dL (8.4-10.2); CARBON DIOXIDE 18 mmol/L (22-30); CHLORIDE 111 mmol/L (98-107); GLUCOSE 179 mg/dL (75-110); PHOSPHORUS 3.9 mg/dL (2.5-4.5); POTASSIUM 3.6 mmol/L (3.6-5.0); SODIUM 147.6 mmol/L (137-145)
--- NOTE | 2017-08-27 17:37 | RADIOLOGY REPORT (SQ) ---
EXAM DESCRIPTION: CT ABD/PELVIS WITH IV ORAL COMPLETED DATE/TIME: 08/27/2017 5:22 pm REASON FOR STUDY: to eval for fistula or abscess COMPARISON: 2016. Recent radiographs. Thoracic spine CT from 08/26/2017. TECHNIQUE: CT scan of the abdomen and pelvis performed with intravenous and oral contrast using yazmin stanislaw scanning technique with dynamic intravenous contrast injection. Images reviewed with lung, soft t issue, and bone windows. Reconstructed coronal and sagittal MPR images reviewed. Delayed images for e valuation of the urinary system also acquired. All images stored on PACS. All CT scanners at this facility use dose modulation, iterative reconstruction, and/or weight based d osing when appropriate to reduce radiation dose to as low as reasonably achievable (ALARA). [facility]: Dose Right [facility]: CareDose [facility]: Dose Right [facility]: Teradose 4D [facility]: [employer] CONTRAST TYPE AND DOSE: contrast/concentration: Isovue 370.00 mg/ml; Total Contrast Delivered: 64.0 ml; Total Saline Delivered: 65.0 ml RENAL FUNCTION: Creatinine 0.67 RADIATION DOSE: CT Rad equipment meets quality standard of care and radiation dose reduction techniq ues were employed. CTDIvol: 9.1 - 13.1 mGy. DLP: 1179 mGy-cm.. LIMITATIONS: Limited clinical information. Patient's arm positioning causes some streak artifact an d associated mild limitation. FINDINGS: LOWER CHEST: Extensive lower lobe consolidation and volume loss on the right. Patchy airs pace disease on the left. Patchy ground-glass infiltrates in the left lower lobe and right middle lo be. Mild pleural fluid. Nasogastric tube down. LIVER: No gross lesion. Normal size and contours. SPLEEN: Several splenules status post splenectomy. PANCREAS: No masses. No significant calcifications. No adjacent inflammation or peripancreatic fluid collections. Pancreatic duct not dilated. GALLBLADDER: No identified stones by CT criteria. No inflammatory changes to suggest cholecystitis. ADRENAL GLANDS: No significant masses or asymmetry. RIGHT KIDNEY AND URETER: No overt urinary obstruction or worrisome mass or large stones. LEFT KIDNEY AND URETER: No overt urinary obstruction or worrisome mass or large stones. AORTA AND VESSELS: No overt aortic aneurysm or dissection or arterial occlusion or venous clot detect ed. RETROPERITONEUM: Subcentimeter chronic lymph nodes. BOWEL AND PERITONEAL CAVITY: Diverting supraumbilical colostomy. This decompresses the proximal half of the colon. Distal colon looks normal. No evidence of overt mechanical small bowel obstruction. No ascites or abnormal fluid collections. APPENDIX: Normal. PELVIS: Landry catheter in the bladder. No pelvic mass or fluid. ABDOMINAL WALL: As above. No hernia or mass evident. BONES: No significant or acute findings. OTHER: Extensive irregular tissue loss in the proximal left thigh, full extent not imaged. No gross regional drainable fluid collections are detected. IMPRESSION: 1. Extensive basilar pulmonary changes suggesting pneumonia. 2. No evidence of intra- abdominal or intrapelvic abscess or drainable collection. Postoperative changes as above without ev idence of mechanical bowel obstruction. 3. Marked irregular soft tissue loss in the proximal left p osterior and medial thigh, incompletely assessed. No suggestion of regional drainable collection as imaged. TECHNICAL DOCUMENTATION: JOB ID: [id number] Quality ID # [id number]: Final reports with documentation of one or more dose reduction techniques (e.g., Au tomated exposure control, adjustment of the mA and/or kV according to patient size, use of iterative reconstruction technique) 2010 [employer]- All Rights Reserved
[2017-08-27] MEDS: INSULIN LISPRO 100 UNIT/ML 3 ML VIAL SUBCUT PRN ×2 (18:05→23:59)
--- NOTE | 2017-08-27 18:32 | PDOC PROGRESS REPORT ---
Subjective Progress Note for:: 08/27/17 Subjective:: sedated, non responsive Reason For Visit: DKA, SEPSIS Physical Exam Vital Signs: Temp Pulse Resp BP Pulse Ox 99.1 F 105 H 28 H 93/77 L 98 08/27/17 16:00 08/27/17 16:00 08/27/17 16:00 08/27/17 16:00 08/27/17 16:00 Intake & Output 08/26/17 08/27/17 08/28/17 06:59 06:59 06:59 Intake Total 5952 8859 Output Total 2364 9173 5290 Balance 7261 026 -1029 Weight 58.9 kg 59.1 kg Skin exam: PRESENT: other - left groin and left ischial abscess sites are cleanand granulating w/o odor Results Laboratory Results: 08/27/17 06:20 08/27/17 14:50 08/26/17 08/26/17 08/26/17 17:30 17:30 22:10 WBC RBC Hgb Hct MCV MCH MCHC RDW Plt Count Seg Neutrophils % Lymphocytes % Monocytes % Eosinophils % Basophils % Absolute Neutrophils Absolute Lymphocytes Absolute Monocytes Absolute Eosinophils Absolute Basophils Carbonic Acid HCO3/H2CO3 Ratio ABG pH ABG pCO2 ABG pO2 ABG HCO3 ABG O2 Saturation ABG Base Excess FiO2 Sodium 142.5 Potassium 4.0 Chloride 114 H Carbon Dioxide 18 L Anion Gap 11 BUN 6 L Creatinine 0.71 Est GFR ( Amer) > 60 Est GFR (Non-Af Amer) > 60 Glucose 111 H Calcium 9.3 Phosphorus Cancelled 3.6 3.4 Magnesium Cancelled 1.5 L 2.2 08/26/17 08/27/17 08/27/17 22:10 06:20 06:20 WBC 29.8 H RBC 3.76 L Hgb 9.5 L Hct 29.8 L MCV 79 L MCH 25.3 L MCHC 31.9 L RDW 17.5 H Plt Count 471 H Seg Neutrophils % Not Reportable Lymphocytes % Not Reportable Monocytes % Not Reportable Eosinophils % Not Reportable Basophils % Not Reportable Absolute Neutrophils Not Reportable Absolute Lymphocytes Not Reportable Absolute Monocytes Not Reportable Absolute Eosinophils Not Reportable Absolute Basophils Not Reportable Carbonic Acid HCO3/H2CO3 Ratio ABG pH ABG pCO2 ABG pO2 ABG HCO3 ABG O2 Saturation ABG Base Excess FiO2 Sodium 143.2 144.9 Potassium 3.9 3.9 Chloride 113 H 114 H Carbon Dioxide 19 L 20 L Anion Gap 11 11 BUN 6 L 6 L Creatinine 0.72 0.74 Est GFR ( Amer) > 60 > 60 Est GFR (Non-Af Amer) > 60 > 60 Glucose 98 48 L Calcium 9.2 9.0 Phosphorus Cancelled 3.6 Magnesium Cancelled 1.9 08/27/17 08/27/17 08/27/17 06:20 10:15 14:50 WBC RBC Hgb Hct MCV MCH MCHC RDW Plt Count Seg Neutrophils % Lymphocytes % Monocytes % Eosinophils % Basophils % Absolute Neutrophils Absolute Lymphocytes Absolute Monocytes Absolute Eosinophils Absolute Basophils Carbonic Acid 1.19 HCO3/H2CO3 Ratio 18:1 ABG pH 7.36 ABG pCO2 39.5 ABG pO2 128.1 H ABG HCO3 21.8 ABG O2 Saturation 98.4 H ABG Base Excess -3.4 FiO2 60% Sodium 143.0 147.6 H Potassium 3.6 3.6 Chloride 115 H 111 H Carbon Dioxide 18 L 18 L Anion Gap 10 19 BUN 6 L 6 L Creatinine 0.67 0.69 Est GFR ( Amer) > 60 > 60 Est GFR (Non-Af Amer) > 60 > 60 Glucose 124 H 179 H Calcium 8.4 8.4 Phosphorus 4.1 3.9 Magnesium 1.6 1.6 08/24/17 20:52 Buttocks - Abscess Gram Stain - Final 08/24/17 08/24/17 08/25/17 18:00 22:00 05:15 Creatine Kinase 140 117 82 Impressions: Thoracic Spine CT 08/26/17 08:00 IMPRESSION: No acute findings in the thoracic spine. Abdomen/Pelvis CT 08/27/17 00:00 IMPRESSION: 1. Extensive basilar pulmonary changes suggesting pneumonia. 2. No evidence of intra- abdominal or intrapelvic abscess or drainable collection. Postoperative changes as above without evidence of mechanical bowel obstruction. 3. Marked irregular soft tissue loss in the proximal left posterior and medial thigh, incompletely assessed. No suggestion of regional drainable collection as imaged. Chest X-Ray 08/27/17 06:00 IMPRESSION: No significant change. Assessment & Plan - Diagnosis (1) Abscess or cellulitis of perineum Is this a current diagnosis for this admission?: Yes - Plan Summary Plan Summary: A/ POD# 3 and POD #2 after I&D left groin and left ischial abscess Both abscess sites are granulating, no odor or unusual discharge WBC elevated since yesterday (*29.8 today) CT scan A/P with IV/oral contrast significant for: 1) bilateral pneumonia 2) no intraabominal findings 3) subcutaneous soft tissue changes left thigh w/o evidence of fluid collection P/ No active General Surgery issues identified Continue wet-to-dry dressing changes let groin and isschial abscess sites
--- NOTE | 2017-08-27 19:37 | PDOC PROGRESS REPORT ---
Subjective Progress Note for:: 08/27/17 Subjective:: This is a 51-year-old man with hidradenitis supperativa and with Crohn's disease who was admitted to the hospital with jennifer-rectal abscesses, bilateral pneumonia, sepsis. He is now intubated and sedated in the ICU. Unable to obtain subjective. Unable to obtain view of systems. I collaborated with his nurse, the general surgeon senior economist and Dr. Fair today. I also spoke extensively with his sister. I have reviewed pertinent diagnostics and lab studies today. Reason For Visit: DKA, SEPSIS Physical Exam Vital Signs: Temp Pulse Resp BP Pulse Ox 97.7 F 81 28 H 145/92 H 95 08/27/17 18:00 08/27/17 18:00 08/27/17 18:00 08/27/17 18:00 08/27/17 18:00 Intake & Output 08/26/17 08/27/17 08/28/17 06:59 06:59 06:59 Intake Total 5954 4759 Output Total 2735 4125 4060 Balance 3219 634 -4060 Weight 58.9 kg 59.1 kg General appearance: PRESENT: no acute distress, other - Intubated sedated Head exam: PRESENT: atraumatic, normocephalic Eye exam: PRESENT: periorbital swelling - Left pupil slightly greater than right , both sluggishly active to light Ear exam: PRESENT: normal external ear exam Mouth exam: PRESENT: dry mucosa, other - OG tube in place Neck exam: PRESENT: lymphadenopathy Respiratory exam: PRESENT: other - First breath sounds in all lung sandoval Cardiovascular exam: PRESENT: tachycardia - Murmurs not auscultated but could be missed secondary to lung sounds Pulses: PRESENT: normal carotid pulses, normal radial pulses, normal dorsalis pedis pul GI/Abdominal exam: PRESENT: normal bowel sounds, soft. ABSENT: distended - Patient has ostomy bag in place over the left mid abdomen with brown stool within Rectal exam: PRESENT: other Gentrourinary exam: PRESENT: indwelling catheter, other - The colored urine in Landry bag Extremities exam: PRESENT: +2 edema Musculoskeletal exam: PRESENT: other - Per Dr. Fair patient is paralyzed with rocuronium Neurological exam: PRESENT: other - Paralyzed with rocuronium, nurse following protocol Psychiatric exam: PRESENT: other - Unable to perform as patient is intubated and sedated Skin exam: PRESENT: dry, warm, other - Patient has several areas of debridement in his perineum and perirectal region. Wet-to-dry dressings in place. Results Laboratory Results: 08/27/17 06:20 08/27/17 14:50 08/26/17 08/26/17 08/27/17 22:10 22:10 06:20 WBC 29.8 H RBC 3.76 L Hgb 9.5 L Hct 29.8 L MCV 79 L MCH 25.3 L MCHC 31.9 L RDW 17.5 H Plt Count 471 H Seg Neutrophils % Not Reportable Lymphocytes % Not Reportable Monocytes % Not Reportable Eosinophils % Not Reportable Basophils % Not Reportable Absolute Neutrophils Not Reportable Absolute Lymphocytes Not Reportable Absolute Monocytes Not Reportable Absolute Eosinophils Not Reportable Absolute Basophils Not Reportable Carbonic Acid HCO3/H2CO3 Ratio ABG pH ABG pCO2 ABG pO2 ABG HCO3 ABG O2 Saturation ABG Base Excess FiO2 Sodium 143.2 Potassium 3.9 Chloride 113 H Carbon Dioxide 19 L Anion Gap 11 BUN 6 L Creatinine 0.72 Est GFR ( Amer) > 60 Est GFR (Non-Af Amer) > 60 Glucose 98 Calcium 9.2 Phosphorus 3.4 Cancelled Magnesium 2.2 Cancelled 08/27/17 08/27/17 08/27/17 06:20 06:20 10:15 WBC RBC Hgb Hct MCV MCH MCHC RDW Plt Count Seg Neutrophils % Lymphocytes % Monocytes % Eosinophils % Basophils % Absolute Neutrophils Absolute Lymphocytes Absolute Monocytes Absolute Eosinophils Absolute Basophils Carbonic Acid 1.19 HCO3/H2CO3 Ratio 18:1 ABG pH 7.36 ABG pCO2 39.5 ABG pO2 128.1 H ABG HCO3 21.8 ABG O2 Saturation 98.4 H ABG Base Excess -3.4 FiO2 60% Sodium 144.9 143.0 Potassium 3.9 3.6 Chloride 114 H 115 H Carbon Dioxide 20 L 18 L Anion Gap 11 10 BUN 6 L 6 L Creatinine 0.74 0.67 Est GFR ( Amer) > 60 > 60 Est GFR (Non-Af Amer) > 60 > 60 Glucose 48 L 124 H Calcium 9.0 8.4 Phosphorus 3.6 4.1 Magnesium 1.9 1.6 08/27/17 14:50 WBC RBC Hgb Hct MCV MCH MCHC RDW Plt Count Seg Neutrophils % Lymphocytes % Monocytes % Eosinophils % Basophils % Absolute Neutrophils Absolute Lymphocytes Absolute Monocytes Absolute Eosinophils Absolute Basophils Carbonic Acid HCO3/H2CO3 Ratio ABG pH ABG pCO2 ABG pO2 ABG HCO3 ABG O2 Saturation ABG Base Excess FiO2 Sodium 147.6 H Potassium 3.6 Chloride 111 H Carbon Dioxide 18 L Anion Gap 19 BUN 6 L Creatinine 0.69 Est GFR ( Amer) > 60 Est GFR (Non-Af Amer) > 60 Glucose 179 H Calcium 8.4 Phosphorus 3.9 Magnesium 1.6 08/24/17 20:52 Buttocks - Abscess Gram Stain - Final 08/24/17 08/24/17 08/25/17 18:00 22:00 05:15 Creatine Kinase 140 117 82 Impressions: Thoracic Spine CT 08/26/17 08:00 IMPRESSION: No acute findings in the thoracic spine. Abdomen/Pelvis CT 08/27/17 00:00 IMPRESSION: 1. Extensive basilar pulmonary changes suggesting pneumonia. 2. No evidence of intra- abdominal or intrapelvic abscess or drainable collection. Postoperative changes as above without evidence of mechanical bowel obstruction. 3. Marked irregular soft tissue loss in the proximal left posterior and medial thigh, incompletely assessed. No suggestion of regional drainable collection as imaged. Chest X-Ray 08/27/17 06:00 IMPRESSION: No significant change. Assessment & Plan - Diagnosis (1) Abscess or cellulitis of perineum Is this a current diagnosis for this admission?: Yes Plan: This is likely secondary to his hidradenitis. Surgery is monitoring the post debridement wounds and wound care. (2) Acute respiratory failure with hypoxia Is this a current diagnosis for this admission?: Yes Plan: She has a bilateral pneumonia. This is the cause of his respiratory failure and hypoxemia. He is on the ventilator which is being managed by Dr. Fair. On broad-spectrum antibiotics including fungal coverage, he is growing Sharri in his sputum. (3) Diabetic keto-acidosis Qualifiers: Diabetes mellitus type: type 1 Diabetes mellitus complication detail: without coma Qualified Code(s): E10.10 - Type 1 diabetes mellitus with ketoacidosis without coma Is this a current diagnosis for this admission?: Yes Plan: This is now resolved. Insulin drip has been discontinued. Patient is on short acting insulin with every 6 hours CBGs. We are starting diabetic feeds through his OG tube today. (4) Hidradenitis suppurativa of anus Is this a current diagnosis for this admission?: Yes Plan: This is a chronic severe problem for this patient. He has acute abscesses related to this. Surgery following. (5) Hypothermia Is this a current diagnosis for this admission?: Yes Plan: This was related to his severe sepsis and it is now resolved. We are keeping close track of his temperature. (6) Septic shock Is this a current diagnosis for this admission?: Yes (7) Severe protein-calorie malnutrition Is this a current diagnosis for this admission?: Yes Plan: Feeding has started today. We will continue to monitor his nutrition status throughout his stay. Biological Engineer consult will be placed. (8) Acute and chronic respiratory failure Qualifiers: Respiratory failure complication: hypoxia Qualified Code(s): J96.21 - Acute and chronic respiratory failure with hypoxia Plan: Acute respiratory failure secondary to pneumonia. It is a tobacco user, I wonder if he has underlying COPD. I do not know what his baseline respiratory status is however. We will continue to treat his acute problems and try to learn more about his chronic respiratory situation. (9) Crohns disease Qualifiers: Gastrointestinal tract location: unspecified location Is this a current diagnosis for this admission?: Yes Plan: Standing problem for this patient. Today I spoke with the surgeon and we decided to perform CT abdomen pelvis with p.o. and IV contrast to assure that there was no occult fistula or abscess intra-abdominally causing his very elevated white blood cell count. CT scan did not show those things. (10) Hypotension Qualifiers: Hypotension type: other hypotension type Qualified Code(s): I95.89 - Other hypotension Is this a current diagnosis for this admission?: Yes Plan: Secondary to severe sepsis. Patient is now doing better after a fluid bolus. We are weaning down his Ok-Synephrine as his blood pressure has improved dramatically. (11) Leukocytosis Is this a current diagnosis for this admission?: Yes Plan: White blood cell count was dramatically higher today. We have added Flagyl for B fragilis coverage and fluconazole for candidal coverage. Patient will continue on his vancomycin and cefepime. Repeat blood cultures 2 sets are pending. (12) Pneumonia Qualifiers: Laterality: right Lung location: upper lobe of lung Is this a current diagnosis for this admission?: Yes Plan: Patient is growing gram-positive cocci and 2 Sharri species in his sputum. He is covered for these with appropriate medications. We will continue to monitor cultures. - Time Time Spent with patient: 35 or more minutes Total Critical Time (Minutes): 45 - 45 minutes spent in critical care time working with patient's nurse on his pressor plan, working with content publisher on ventilation and paralytic plan Medications reviewed and adjusted accordingly: Yes Anticipated discharge: Acute Rehab Within: Other - Inpatient Certification Medical Necessity: Significant Comorbidiites Make Outpatient Treatment Too Risky , Need Close Monitoring Due to Risk of Patient Decompensation, Need For IV Fluids, Need For Continuous Telemetry Monitoring, Need for IV Antibiotics, Risk of Complication if Not Cared For in Hospital
[2017-08-28] MEDS: IPRATROPIUM/ALBUTEROL 0.5-2.5 MG/3 ML AMPUL NEB SCH ×6 (00:06→20:01)
[2017-08-28 00:28] LABS: PHOSPHORUS 4.1 mg/dL (2.5-4.5)
[2017-08-28] MEDS: PIPERACILLIN SODIUM/TAZOBACTAM 4.5 GM in NORMAL SALINE 100 ML IV SCH ×4 (02:17→20:16)
[2017-08-28 02:50] LABS: PHOSPHORUS 3.5 mg/dL (2.5-4.5)
--- NOTE | 2017-08-28 07:45 | RADIOLOGY REPORT (SQ) ---
EXAM DESCRIPTION: CHEST SINGLE VIEW CLINICAL HISTORY: 51 years Male, resp failure/pna COMPARISON: 2.17.18. NUMBER OF VIEWS/TECHNIQUE: 1/AP LIMITATIONS: None. FINDINGS: Moderate patchiness of bilateral lower lung sandoval, mild central edema pattern, normal cardiac silhouette, adequate appearing endotracheal tube/left jugular central line. Likely adequate enteric tube obscured distally. No pneumothorax. No acute bone defect. IMPRESSION: No significant change.
[2017-08-28] MEDS: NORMAL SALINE 500 ML with ROCURONIUM BROMIDE 500 MG IV PRN ×2 (07:53)
[2017-08-28] MEDS: METRONIDAZOLE 500 MG/NS RTU 100 ML IV SCH ×3 (07:54→17:10)
[2017-08-28] MEDS: FLUCONAZOLE 400 MG/NS RTU 400 MG/200 ML RTUPB IV SCH (08:12)
[2017-08-28 09:13] LABS: HEMATOCRIT 30.2 % (37.9-51.0); HEMOGLOBIN 9.7 g/dL (13.5-17.0); MEAN CORPUSCULAR HEMOGLOBIN 25.1 pg (27.0-33.4); MEAN CORPUSCULAR HGB CONC 32.2 g/dL (32.0-36.0); MEAN CORPUSCULAR VOLUME 78 fl (80-97); PLATELET COUNT 459 10^3/uL (150-450); RED BLOOD COUNT 3.88 10^6/uL (4.35-5.55); WHITE BLOOD COUNT 27.8 10^3/uL (4.0-10.5)
[2017-08-28 09:16] LABS: ANION GAP 11 (5-19); BLOOD UREA NITROGEN 7 mg/dL (7-20); CALCIUM 9.2 mg/dL (8.4-10.2); CARBON DIOXIDE 22 mmol/L (22-30); CHLORIDE 113 mmol/L (98-107); GLUCOSE 176 mg/dL (75-110); PHOSPHORUS 3.8 mg/dL (2.5-4.5)
[2017-08-28] MEDS: ENOXAPARIN SODIUM INJ 40 MG/0.4 ML DISP.SYRIN SUBCUT SCH (09:19)
[2017-08-28] MEDS: FAMOTIDINE INJ/PF 20 MG/2 ML SDV IV SCH ×2 (09:19→22:04)
[2017-08-28 09:21] LABS: POTASSIUM 2.9 mmol/L (3.6-5.0)
[2017-08-28 09:32] LABS: ABSOLUTE LYMPHOCYTES# (MANUAL) 3.6 10^3/uL (0.5-4.7); ABSOLUTE MONOCYTES # (MANUAL) 0.8 10^3/uL (0.1-1.4); ABSOLUTE NEUTROPHILS# (MANUAL) 23.1 10^3/uL (1.7-8.2); BASOPHILS % (MANUAL) 0 % (0-2); EOSINOPHILS % (MANUAL) 1 % (0-6); LYMPHOCYTES % (MANUAL) 13 % (13-45); MONOCYTES % (MANUAL) 3 % (3-13); NUCLEATED RED BLOOD CELLS 1 /100 WBC (0); SEGMENTED NEUTROPHILS % (MAN) 65 % (42-78); TOTAL CELLS COUNTED 100
[2017-08-28] MEDS: VANCOMYCIN HCL 1,000 MG in DEXTROSE 5%-WATER 250 ML IV SCH ×2 (09:33→22:03)
[2017-08-28 09:36] LABS: ANISOCYTOSIS 2+; BURR CELLS 1+; HYPOCHROMASIA SLIGHT; PLATELET COMMENT INCREASED; PLATELET LARGE PRESENT; POLYCHROMASIA SLIGHT; TARGET CELLS 1+; TOXIC GRANULATION 1+
[2017-08-28 09:41] LABS: BAND NEUTROPHILS % (MANUAL) 18 % (3-5)
[2017-08-28 10:15] LABS: VANCOMYCIN,TROUGH 14.9 ug/mL (5.0-20.0)
[2017-08-28 11:01] LABS: ARTERIAL BLOOD BASE EXCESS -1.7 mmol/L; ARTERIAL BLOOD FIO2 45%; ARTERIAL BLOOD H2CO3 1.35 mmol/L (1.05-1.35); ARTERIAL BLOOD O2 SATURATION 96.9 % (94-98); ARTERIAL BLOOD PCO2 44.9 mmHg (35-45); ARTERIAL BLOOD PH 7.35 (7.35-7.45); ARTERIAL BLOOD PO2 95.1 mmHg (80-100); ARTERIAL BLOOD TOTAL CO2 25.4 mmol/L (23-27)
[2017-08-28 11:04] LABS: PHOSPHORUS 4.6 mg/dL (2.5-4.5)
--- NOTE | 2017-08-28 11:27 | PDOC PROGRESS REPORT ---
Subjective Progress Note for:: 08/28/17 Subjective:: intubated, sedated Reason For Visit: DKA, SEPSIS Physical Exam Vital Signs: Temp Pulse Resp BP Pulse Ox 98.8 F 117 H 29 H 88/73 L 93 08/28/17 10:00 08/28/17 10:00 08/28/17 10:00 08/28/17 10:00 08/28/17 10:00 Intake & Output 08/27/17 08/28/17 08/29/17 06:59 06:59 06:59 Intake Total 4759 3870 Output Total 4125 7160 730 Balance 634 -3290 -730 Weight 59.1 kg 59.8 kg Skin exam: PRESENT: other - left groin and left ischial abscess cavities granulating Results Laboratory Results: 08/28/17 08:38 08/28/17 08:38 08/27/17 08/27/17 08/28/17 14:50 23:45 02:20 WBC RBC Hgb Hct MCV MCH MCHC RDW Plt Count Seg Neutrophils % Lymphocytes % Monocytes % Eosinophils % Basophils % Absolute Neutrophils Absolute Lymphocytes Absolute Monocytes Absolute Eosinophils Absolute Basophils Carbonic Acid HCO3/H2CO3 Ratio ABG pH ABG pCO2 ABG pO2 ABG HCO3 ABG O2 Saturation ABG Base Excess FiO2 Sodium 147.6 H Potassium 3.6 Chloride 111 H Carbon Dioxide 18 L Anion Gap 19 BUN 6 L Creatinine 0.69 Est GFR ( Amer) > 60 Est GFR (Non-Af Amer) > 60 Glucose 179 H Calcium 8.4 Phosphorus 3.9 4.1 3.5 Magnesium 1.6 1.6 1.7 08/28/17 08/28/17 08/28/17 08:38 08:38 08:38 WBC 27.8 H RBC 3.88 L Hgb 9.7 L Hct 30.2 L MCV 78 L MCH 25.1 L MCHC 32.2 RDW 18.0 H Plt Count 459 H Seg Neutrophils % Not Reportable Lymphocytes % Not Reportable Monocytes % Not Reportable Eosinophils % Not Reportable Basophils % Not Reportable Absolute Neutrophils Not Reportable Absolute Lymphocytes Not Reportable Absolute Monocytes Not Reportable Absolute Eosinophils Not Reportable Absolute Basophils Not Reportable Carbonic Acid Cancelled HCO3/H2CO3 Ratio Cancelled ABG pH Cancelled ABG pCO2 Cancelled ABG pO2 Cancelled ABG HCO3 Cancelled ABG O2 Saturation Cancelled ABG Base Excess Cancelled FiO2 Cancelled Sodium 146.0 H Potassium 2.9 L* Chloride 113 H Carbon Dioxide 22 Anion Gap 11 BUN 7 Creatinine 0.72 Est GFR ( Amer) > 60 Est GFR (Non-Af Amer) > 60 Glucose 176 H Calcium 9.2 Phosphorus 3.8 Magnesium 08/28/17 08/28/17 08/28/17 08:38 09:34 09:34 WBC RBC Hgb Hct MCV MCH MCHC RDW Plt Count Seg Neutrophils % Lymphocytes % Monocytes % Eosinophils % Basophils % Absolute Neutrophils Absolute Lymphocytes Absolute Monocytes Absolute Eosinophils Absolute Basophils Carbonic Acid 1.35 HCO3/H2CO3 Ratio 17:1 ABG pH 7.35 ABG pCO2 44.9 ABG pO2 95.1 ABG HCO3 24.0 ABG O2 Saturation 96.9 ABG Base Excess -1.7 FiO2 45% Sodium Potassium Chloride Carbon Dioxide Anion Gap BUN Creatinine Est GFR ( Amer) Est GFR (Non-Af Amer) Glucose Calcium Phosphorus Cancelled Magnesium Cancelled Cancelled 08/28/17 10:37 WBC RBC Hgb Hct MCV MCH MCHC RDW Plt Count Seg Neutrophils % Lymphocytes % Monocytes % Eosinophils % Basophils % Absolute Neutrophils Absolute Lymphocytes Absolute Monocytes Absolute Eosinophils Absolute Basophils Carbonic Acid HCO3/H2CO3 Ratio ABG pH ABG pCO2 ABG pO2 ABG HCO3 ABG O2 Saturation ABG Base Excess FiO2 Sodium Potassium Chloride Carbon Dioxide Anion Gap BUN Creatinine Est GFR ( Amer) Est GFR (Non-Af Amer) Glucose Calcium Phosphorus 4.6 H Magnesium 1.6 08/25/17 09:25 Tracheal Aspirate Gram Stain - Final 08/25/17 09:25 Tracheal Aspirate Sputum Culture - Final Mrsa (Meth Resis Staph Aureus) C.albicans/C.dubliniensis Normal Carolina Absent 08/24/17 20:52 Buttocks - Abscess Gram Stain - Final 08/24/17 08/24/17 08/25/17 18:00 22:00 05:15 Creatine Kinase 140 117 82 Impressions: Thoracic Spine CT 08/26/17 08:00 IMPRESSION: No acute findings in the thoracic spine. Abdomen/Pelvis CT 08/27/17 00:00 IMPRESSION: 1. Extensive basilar pulmonary changes suggesting pneumonia. 2. No evidence of intra- abdominal or intrapelvic abscess or drainable collection. Postoperative changes as above without evidence of mechanical bowel obstruction. 3. Marked irregular soft tissue loss in the proximal left posterior and medial thigh, incompletely assessed. No suggestion of regional drainable collection as imaged. Chest X-Ray 08/28/17 06:00 IMPRESSION: No significant change. Assessment & Plan - Diagnosis (1) Abscess or cellulitis of perineum Is this a current diagnosis for this admission?: Yes - Plan Summary Plan Summary: A/ S/P I&D left groin and L ischial abscesses Areas granulating P/ Continue current wound care regimen
[2017-08-28] MEDS ORDERED: POTASSI CL 20 MEQ/50 ML RIDER 20 MEQ/50 ML RTUPB IV SCH (11:57)
[2017-08-28] MEDS: MAGNESIUM SULFATE/D5W 1 GM/100 ML RTUPB IV SCH ×2 (12:53→14:33)
[2017-08-28] MEDS: POTASSI CL 20 MEQ/50 ML RIDER 20 MEQ/50 ML RTUPB IV SCH ×3 (12:53→17:11)
[2017-08-28] MEDS: INSULIN LISPRO 100 UNIT/ML 3 ML VIAL SUBCUT PRN (12:54)
[2017-08-28] MEDS: GABAPENTIN 300 MG CAPSULE PO SCH ×2 (13:08→22:05)
[2017-08-28] MEDS: HYDROMORPHONE HCL INJ/PF 2 MG/ML AMPULE IV SCH ×3 (13:09→22:03)
--- NOTE | 2017-08-28 15:38 | PDOC PROGRESS REPORT ---
Subjective Progress Note for:: 08/28/17 Subjective:: Patient is intubated and sedated, cannot obtain subjective or review of systems. Reason For Visit: DKA, SEPSIS Physical Exam Vital Signs: Temp Pulse Resp BP Pulse Ox 98.1 F 98 28 H 97/81 L 99 08/28/17 14:00 08/28/17 14:00 08/28/17 14:30 08/28/17 14:00 08/28/17 14:30 Intake & Output 08/27/17 08/28/17 08/29/17 06:59 06:59 06:59 Intake Total 4759 3870 Output Total 4129 7160 1455 Balance 534 -5650 -1455 Weight 59.1 kg 59.8 kg General appearance: PRESENT: no acute distress Head exam: PRESENT: atraumatic, normocephalic Eye exam: PRESENT: conjunctiva pink Ear exam: PRESENT: normal external ear exam Mouth exam: PRESENT: moist Neck exam: PRESENT: lymphadenopathy Respiratory exam: PRESENT: rhonchi, wheezes, other - improved air movement overall Cardiovascular exam: PRESENT: RRR. ABSENT: systolic murmur Pulses: PRESENT: normal radial pulses GI/Abdominal exam: PRESENT: soft. ABSENT: distended, mass Rectal exam: PRESENT: deferred Gentrourinary exam: PRESENT: indwelling catheter Extremities exam: PRESENT: +1 edema Neurological exam: PRESENT: other - paralytic has been DCed Skin exam: PRESENT: dry, warm - open wound in perineum and perianal and being monitored by surgery Results Laboratory Results: 08/28/17 08:38 08/28/17 08:38 08/27/17 08/27/17 08/28/17 14:50 23:45 02:20 WBC RBC Hgb Hct MCV MCH MCHC RDW Plt Count Seg Neutrophils % Lymphocytes % Monocytes % Eosinophils % Basophils % Absolute Neutrophils Absolute Lymphocytes Absolute Monocytes Absolute Eosinophils Absolute Basophils Carbonic Acid HCO3/H2CO3 Ratio ABG pH ABG pCO2 ABG pO2 ABG HCO3 ABG O2 Saturation ABG Base Excess FiO2 Sodium 147.6 H Potassium 3.6 Chloride 111 H Carbon Dioxide 18 L Anion Gap 19 BUN 6 L Creatinine 0.69 Est GFR ( Amer) > 60 Est GFR (Non-Af Amer) > 60 Glucose 179 H Calcium 8.4 Phosphorus 3.9 4.1 3.5 Magnesium 1.6 1.6 1.7 08/28/17 08/28/17 08/28/17 08:38 08:38 08:38 WBC 27.8 H RBC 3.88 L Hgb 9.7 L Hct 30.2 L MCV 78 L MCH 25.1 L MCHC 32.2 RDW 18.0 H Plt Count 459 H Seg Neutrophils % Not Reportable Lymphocytes % Not Reportable Monocytes % Not Reportable Eosinophils % Not Reportable Basophils % Not Reportable Absolute Neutrophils Not Reportable Absolute Lymphocytes Not Reportable Absolute Monocytes Not Reportable Absolute Eosinophils Not Reportable Absolute Basophils Not Reportable Carbonic Acid Cancelled HCO3/H2CO3 Ratio Cancelled ABG pH Cancelled ABG pCO2 Cancelled ABG pO2 Cancelled ABG HCO3 Cancelled ABG O2 Saturation Cancelled ABG Base Excess Cancelled FiO2 Cancelled Sodium 146.0 H Potassium 2.9 L* Chloride 113 H Carbon Dioxide 22 Anion Gap 11 BUN 7 Creatinine 0.72 Est GFR ( Amer) > 60 Est GFR (Non-Af Amer) > 60 Glucose 176 H Calcium 9.2 Phosphorus 3.8 Magnesium 08/28/17 08/28/17 08/28/17 08:38 09:34 09:34 WBC RBC Hgb Hct MCV MCH MCHC RDW Plt Count Seg Neutrophils % Lymphocytes % Monocytes % Eosinophils % Basophils % Absolute Neutrophils Absolute Lymphocytes Absolute Monocytes Absolute Eosinophils Absolute Basophils Carbonic Acid 1.35 HCO3/H2CO3 Ratio 17:1 ABG pH 7.35 ABG pCO2 44.9 ABG pO2 95.1 ABG HCO3 24.0 ABG O2 Saturation 96.9 ABG Base Excess -1.7 FiO2 45% Sodium Potassium Chloride Carbon Dioxide Anion Gap BUN Creatinine Est GFR ( Amer) Est GFR (Non-Af Amer) Glucose Calcium Phosphorus Cancelled Magnesium Cancelled Cancelled 08/28/17 10:37 WBC RBC Hgb Hct MCV MCH MCHC RDW Plt Count Seg Neutrophils % Lymphocytes % Monocytes % Eosinophils % Basophils % Absolute Neutrophils Absolute Lymphocytes Absolute Monocytes Absolute Eosinophils Absolute Basophils Carbonic Acid HCO3/H2CO3 Ratio ABG pH ABG pCO2 ABG pO2 ABG HCO3 ABG O2 Saturation ABG Base Excess FiO2 Sodium Potassium Chloride Carbon Dioxide Anion Gap BUN Creatinine Est GFR ( Amer) Est GFR (Non-Af Amer) Glucose Calcium Phosphorus 4.6 H Magnesium 1.6 08/24/17 20:48 Buttocks - Abscess Gram Stain - Final 08/24/17 20:52 Buttocks - Abscess Gram Stain - Final 08/24/17 20:52 Buttocks - Abscess Wound Culture - Final Bacteroides Fragilis Group Corynebacterium Striatum Staphylococcus Epidermidis 08/25/17 09:25 Tracheal Aspirate Gram Stain - Final 08/25/17 09:25 Tracheal Aspirate Sputum Culture - Final Mrsa (Meth Resis Staph Aureus) C.albicans/C.dubliniensis Normal Carolina Absent 08/24/17 08/24/17 08/25/17 18:00 22:00 05:15 Creatine Kinase 140 117 82 Impressions: Thoracic Spine CT 08/26/17 08:00 IMPRESSION: No acute findings in the thoracic spine. Abdomen/Pelvis CT 08/27/17 00:00 IMPRESSION: 1. Extensive basilar pulmonary changes suggesting pneumonia. 2. No evidence of intra- abdominal or intrapelvic abscess or drainable collection. Postoperative changes as above without evidence of mechanical bowel obstruction. 3. Marked irregular soft tissue loss in the proximal left posterior and medial thigh, incompletely assessed. No suggestion of regional drainable collection as imaged. Chest X-Ray 08/28/17 06:00 IMPRESSION: No significant change. Assessment & Plan - Diagnosis (1) Abscess or cellulitis of perineum Is this a current diagnosis for this admission?: Yes Plan: Likely due to hidradenitis suppurativa. Continue current antibiotics. Surgery has debrided and is monitoring wounds and wet-to-dry dressing changes. (2) Acute respiratory failure with hypoxia Is this a current diagnosis for this admission?: Yes Plan: Secondary to bilateral pneumonia. Patient is growing to Sharri species and MRSA from his sputum culture. Continue current antibiotic therapy. Wean from vent as tolerated. (3) Diabetic keto-acidosis Qualifiers: Diabetes mellitus type: type 1 Diabetes mellitus complication detail: without coma Qualified Code(s): E10.10 - Type 1 diabetes mellitus with ketoacidosis without coma Is this a current diagnosis for this admission?: Yes Plan: Ketoacidosis resolved. Continue current insulin plan. And is on feeding via OG tube for now. (4) Hidradenitis suppurativa of anus Is this a current diagnosis for this admission?: Yes Plan: Please see above. (5) Hypothermia Is this a current diagnosis for this admission?: Yes Plan: Resolved as septic shock resolved. (6) Septic shock Is this a current diagnosis for this admission?: Yes Plan: We continue to wean down on vasopressors, patient is on a low dose of Ok- Synephrine. Will wean as tolerated. Continue antibiotics for pathogens found in sputum and abscesses. (7) Severe protein-calorie malnutrition Is this a current diagnosis for this admission?: Yes Plan: Continue current tube feeds. Titrate up to goal. (8) Acute and chronic respiratory failure Qualifiers: Respiratory failure complication: hypoxia Qualified Code(s): J96.21 - Acute and chronic respiratory failure with hypoxia Is this a current diagnosis for this admission?: Yes Plan: Secondary to severe pneumonia with MRSA and Sharri. Continue vancomycin and fluconazole. Wean vent as tolerated. (9) Crohns disease Qualifiers: Gastrointestinal tract location: unspecified location Is this a current diagnosis for this admission?: Yes Plan: Yesterday CT abdomen pelvis with IV and oral contrast was performed to evaluate for fistula or intra-abdominal abscess. None found. Surgery aware. His low- dose prednisone has been restarted. (10) Hypotension Qualifiers: Hypotension type: other hypotension type Qualified Code(s): I95.89 - Other hypotension Is this a current diagnosis for this admission?: Yes Plan: Improving. This was due to septic shock. We will continue to titrate Ok- Synephrine as tolerated. (11) Leukocytosis Is this a current diagnosis for this admission?: Yes Plan: Improved today, yesterday we added fluconazole and Flagyl.. Continue current antibiotics and recheck CBC in the morning. (12) Pneumonia Qualifiers: Laterality: right Lung location: upper lobe of lung Is this a current diagnosis for this admission?: Yes Plan: See above for pneumonia plan. (13) Hypoxic brain injury Is this a current diagnosis for this admission?: Yes Plan: This is a concern for this patient. We do not know for how long he was down in his home before being brought to the hospital. His rocuronium has been discontinued. No purposeful movements as of yet. We will continue to monitor closely. - Time Time Spent with patient: 35 or more minutes Total Critical Time (Minutes): 35 Anticipated discharge: Acute Rehab Within: Other - unknown - Inpatient Certification Medical Necessity: Significant Comorbidiites Make Outpatient Treatment Too Risky , Need Close Monitoring Due to Risk of Patient Decompensation, Need for Neurological Checks, Need for IV Antibiotics, Risk of Complication if Not Cared For in Hospital
[2017-08-28 18:40] LABS: PHOSPHORUS 2.9 mg/dL (2.5-4.5); POTASSIUM 3.5 mmol/L (3.6-5.0)
[2017-08-28] MEDS ORDERED: POTASSIUM CHLORIDE 20 MEQ/50 ML RTU IV ONE (19:15)
--- NOTE | 2017-08-28 19:36 | PDOC CONSULTATION ---
Consultation Consult Date: 08/25/17 Attending physician:: CLEO BECERRA Consult reason:: septic shock.pna multiple gluteal and perineal abcees History of Present Illness Admission Date/PCP: 08/24/17 16:51 DELROY CROUCH DO History of Present Illness: all information from chart::Mr. Sarbjit Borges is a 51-year-old male who was brought in today by EMS; he had not been seen by the family for 5 days and was found down. The patient is awake now, but not coherent. When EMS found him he was severely hypothermic. He was hyperglycemic. He would only respond to painful stimuli. He was brought into the emergency department his initial temperature was 91F. Patient does have an ostomy. No bag was over the ostomy site. He was covered in stool. The emergency room staff performed a basic exam and while cleaning the patient they noted that he has pus coming out of the right and left groin and scrotal area. This extends around to the buttock on the left side. In addition, the patient appears to have a pressure ulcer from a moy on his back. He also has a linear skin ulceration on the spine at approximately T8 through T11. A consult was placed for surgical evaluation for the drainage from his groins and buttock. The patient cannot give a history but his EHR shows he has severe hidradenitis suppurativa and had a colostomy placed in [place] in 10/12/2014 before he moved down here to aid healing of the perineal wounds related to the hidradenitis.He has a hx of Chron's disease He has been getting wound care at the wound care center here with Dr Teresa and Dr Babin; last visit was June 2017 (2 months ago). Past Medical History Cardiac Medical History: Reports: Myocardial Infarction - NOVEMBER 2014, Hypertension Denies: Coronary Artery Disease Pulmonary Medical History: Reports: Asthma, Pneumonia Denies: Bronchitis, Chronic Obstructive Pulmonary Disease (COPD) Neurological Medical History: Reports: Seizures Endocrine Medical History: Reports: Diabetes Mellitus Type 2 GI Medical History: Reports: Crohn's Disease Musculoskeltal Medical History: Reports: Arthritis Skin Medical History: Reports: Other - RECURRENT CELLULITIS & ABSCESS FORMATION IN PERINEAL, GENITAL, AND GLUTEAL Psychiatric Medical History: Reports: Depression Hematology: Reports: Anemia Past Surgical History Past Surgical History: Reports: Colostomy Social History Information Source: [facility] Records Lives with: Alone Smoking Status: Unknown if Ever Smoked Frequency of Alcohol Use: None Hx Recreational Drug Use: No Hx Prescription Drug Abuse: No - Advance Directive Resuscitation Status: Full Code Family History Family History: Other - Crohn's-sister Parental Family History Reviewed: No Children Family History Reviewed: No Sibling(s) Family History Reviewed.: No Medication/Allergy Home Medications: Duloxetine HCl [Cymbalta] 60 mg PO Q12 08/24/17 Gabapentin [Neurontin 300 mg Capsule] 600 mg PO Q8 08/24/17 Insulin Aspart [Novolog Flexpen] 25 unit SQ Q12 08/24/17 Metformin HCl [Glucophage] 1,000 mg PO BIDACBS 08/24/17 Morphine Sulfate [Morphine Sulfate ER] 100 mg PO Q12 08/24/17 Naloxone HCl [Narcan] 1 spray NS ASDIR PRN 08/24/17 Ondansetron HCl [Zofran 8 mg Tablet] 8 mg PO Q8HP PRN 08/24/17 Oxycodone HCl [Oxy-Ir 5 mg Tablet] 20 mg PO Q4HP PRN 08/24/17 Prednisone [Deltasone 10 mg Tablet] 10 mg PO Q12 08/24/17 Allergies/Adverse Reactions: atropine sulfate [From Lomotil] Allergy (Verified 02/21/17 13:49) diphenoxylate HCl [From Lomotil] Allergy (Verified 02/21/17 13:49) erythromycin base [Erythromycin Base] Allergy (Verified 02/21/17 13:49) paroxetine HCl [From Paxil] Allergy (Verified 02/21/17 13:49) sulfamethoxazole [From Bactrim] Allergy (Verified 02/21/17 13:49) trimethoprim [From Bactrim] Allergy (Verified 02/21/17 13:49) Review of Systems ROS unobtainable: Due to endotracheal tube, Due to mental status Physical Exam Vital Signs: Temp Pulse Resp BP Pulse Ox 99.3 F 111 H 36 H 99/72 L 93 08/25/17 08:00 08/25/17 08:00 08/25/17 08:00 08/25/17 08:00 08/25/17 08:00 Intake & Output 08/24/17 08/25/17 08/26/17 06:59 06:59 06:59 Intake Total 1718 Output Total 850 160 Balance 868 -160 Weight 54.6 kg General appearance: PRESENT: no acute distress, disheveled, thin. ABSENT: cooperative Head exam: PRESENT: atraumatic, normocephalic Eye exam: PRESENT: conjunctiva pale. ABSENT: nystagmus, periorbital swelling Mouth exam: PRESENT: dry mucosa, neck supple, tongue midline, other - ET tube Teeth exam: PRESENT: poor dentation Neck exam: ABSENT: carotid bruit, JVD, lymphadenopathy, thyromegaly, tracheal deviation, tracheostomy Respiratory exam: PRESENT: crackles, decreased breath sounds, prolonged expiratory phas, rales, rhonchi, symmetrical, tachypnea, unlabored, wheezes. ABSENT: retraction, stridor Cardiovascular exam: PRESENT: RRR, +S1, +S2, tachycardia Pulses: PRESENT: normal radial pulses GI/Abdominal exam: PRESENT: diminished bowel sounds, soft, other - ostomy Rectal exam: PRESENT: other - diffuse abcess inuinal perineal gluteal Gentrourinary exam: PRESENT: indwelling catheter Extremities exam: ABSENT: clubbing Musculoskeletal exam: ABSENT: ambulatory, deformity, dislocation Neurological exam: ABSENT: alert, awake, oriented to person Skin exam: PRESENT: dry, warm Results Laboratory Results: 08/25/17 05:15 08/25/17 05:15 08/24/17 08/24/17 08/24/17 19:42 22:00 22:00 WBC 14.4 H RBC 4.36 Hgb 11.4 L Hct 34.8 L MCV 80 D MCH 26.1 L MCHC 32.6 RDW 17.3 H Plt Count 660 H Carbonic Acid HCO3/H2CO3 Ratio ABG pH ABG pCO2 ABG pO2 ABG HCO3 ABG O2 Saturation ABG Base Excess FiO2 Sodium 147.8 H Potassium 3.0 L* Chloride 116 H Carbon Dioxide 17 L Anion Gap 15 BUN 23 H Creatinine 0.82 Est GFR ( Amer) > 60 Est GFR (Non-Af Amer) > 60 Glucose 409 H* 268 H Calcium 10.7 H Phosphorus 2.0 L Magnesium 1.7 1.6 Total Bilirubin AST ALT Alkaline Phosphatase Ammonia Total Protein Albumin TSH Free T4 Free T3 pg/mL 08/25/17 08/25/17 08/25/17 02:00 02:00 02:45 WBC 16.4 H RBC 4.45 Hgb 11.3 L Hct 35.6 L MCV 80 MCH 25.4 L MCHC 31.7 L RDW 17.6 H Plt Count 635 H Carbonic Acid 1.21 HCO3/H2CO3 Ratio 16:1 ABG pH 7.31 L ABG pCO2 40.3 ABG pO2 63.5 L ABG HCO3 19.7 L ABG O2 Saturation 90.3 L ABG Base Excess -6.2 FiO2 100% Sodium 148.3 H Potassium 3.0 L* Chloride 119 H Carbon Dioxide 18 L Anion Gap 11 BUN 19 Creatinine 0.72 Est GFR ( Amer) > 60 Est GFR (Non-Af Amer) > 60 Glucose 132 H Calcium 10.7 H Phosphorus 1.5 L Magnesium 1.6 Total Bilirubin AST ALT Alkaline Phosphatase Ammonia Total Protein Albumin TSH Free T4 Free T3 pg/mL 08/25/17 08/25/17 08/25/17 05:15 05:15 05:15 WBC 16.5 H RBC 4.02 L Hgb 10.3 L Hct 32.1 L MCV 80 MCH 25.5 L MCHC 32.0 RDW 17.5 H Plt Count 646 H Carbonic Acid HCO3/H2CO3 Ratio ABG pH ABG pCO2 ABG pO2 ABG HCO3 ABG O2 Saturation ABG Base Excess FiO2 Sodium 148.6 H Potassium 4.8 D Chloride 122 H Carbon Dioxide 18 L Anion Gap 9 BUN 18 Creatinine 0.75 Est GFR ( Amer) > 60 Est GFR (Non-Af Amer) > 60 Glucose 135 H Calcium 10.3 H Phosphorus 3.5 D Magnesium 1.5 L Total Bilirubin 0.2 AST 13 L ALT 14 L Alkaline Phosphatase 88 Ammonia < 8.7 L Total Protein 6.0 L Albumin 2.6 L TSH Free T4 Free T3 pg/mL 08/25/17 08/25/17 05:15 05:15 WBC RBC Hgb Hct MCV MCH MCHC RDW Plt Count Carbonic Acid 1.27 HCO3/H2CO3 Ratio 14:1 ABG pH 7.27 L ABG pCO2 42.3 ABG pO2 62.3 L ABG HCO3 18.8 L ABG O2 Saturation 88.6 L ABG Base Excess -7.9 FiO2 90% Sodium Potassium Chloride Carbon Dioxide Anion Gap BUN Creatinine Est GFR ( Amer) Est GFR (Non-Af Amer) Glucose Calcium Phosphorus Magnesium Total Bilirubin AST ALT Alkaline Phosphatase Ammonia Total Protein Albumin TSH 2.51 Free T4 1.48 Free T3 pg/mL 2.06 L 08/24/17 08/24/17 08/25/17 18:00 22:00 05:15 Creatine Kinase 140 117 82 Impressions: Chest X-Ray 08/25/17 06:44 IMPRESSION: Tip of an endotracheal tube is 7 cm from the belgica; recommend 2 cm advancement. Assessment & Plan - Diagnosis (1) Abscess or cellulitis of perineum Is this a current diagnosis for this admission?: Yes Plan: patient scheduled for 2nd surgical debredment (2) Acute respiratory failure with hypoxia Is this a current diagnosis for this admission?: Yes Plan: hypoxic hypercapnic adjust ventilation will need neuromuscular bloc as patient fightind vent despite propofol,opiates and veresed drip (3) Decubitus ulcer Qualifiers: Pressure ulcer location: sacral region Pressure ulcer stage: stage 3 Qualified Code(s): L89.153 - Pressure ulcer of sacral region, stage 3 Is this a current diagnosis for this admission?: Yes Plan: consider fistulas in face of INflammatory bowel disease (4) Diabetic keto-acidosis Qualifiers: Diabetes mellitus type: type 1 Diabetes mellitus complication detail: without coma Qualified Code(s): E10.10 - Type 1 diabetes mellitus with ketoacidosis without coma Is this a current diagnosis for this admission?: Yes Plan: dibetix ketotic and acidotic insulin drip until ketones are clear (5) Septic shock Is this a current diagnosis for this admission?: Yes Plan: vol repletion LR and vaspressor 08/25/17 18:30 Gram Stain - Preliminary Groin - Abscess Wound Culture - Preliminary Corynebacterium Species Gram Positive Cocci In Pairs Gram Negative Rods 08/25/17 09:25 Gram Stain - Final Tracheal Aspirate Sputum Culture - Final Mrsa (Meth Resis Staph Aureus) C.albicans/C.dubliniensis Normal [place] Absent 08/24/17 20:52 Gram Stain - Final Buttocks - Abscess Wound Culture - Final Bacteroides Fragilis Group Corynebacterium Striatum Staphylococcus Epidermidis 08/24/17 20:48 Gram Stain - Final Buttocks - Abscess Wound Culture - Preliminary Bacteroides Fragilis Group Corynebacterium Species Gram Positive Cocci Clusters 08/24/17 14:59 Gram Stain - Final Perineum Wound Culture - Preliminary Corynebacterium Species Gram Positive Cocci In Pairs Bacteroides Fragilis Group 08/24/17 14:59 Blood Culture - Preliminary Blood NO GROWTH 4 DAYS 08/24/17 14:59 Blood Culture - Final Blood Corynebacterium Striatum (6) Malnutrition of moderate degree Is this a current diagnosis for this admission?: Yes Plan: enteral nutrition as tolerated (7) Pneumonia Qualifiers: Laterality: right Lung location: upper lobe of lung Is this a current diagnosis for this admission?: Yes Plan: CAP + Flagyl (8) Tobacco abuse Is this a current diagnosis for this admission?: Yes Plan: transdermal nicotene - Time Total Critical Time (Minutes): 60
--- NOTE | 2017-08-28 19:43 | PDOC PROGRESS REPORT ---
Subjective Progress Note for:: 08/26/17 Subjective:: intubated sedated Reason For Visit: DKA, SEPSIS Physical Exam Vital Signs: Temp Pulse Resp BP Pulse Ox 98.4 F 110 H 28 H 85/65 L 95 08/26/17 05:38 08/26/17 05:38 08/26/17 06:00 08/26/17 05:48 08/26/17 06:00 Intake & Output 08/25/17 08/26/17 08/27/17 06:59 06:59 06:59 Intake Total 1718 5954 Output Total 850 2735 Balance 868 3219 Weight 54.6 kg 58.9 kg General appearance: PRESENT: no acute distress, disheveled, thin Head exam: PRESENT: atraumatic, normocephalic Eye exam: PRESENT: conjunctiva pale. ABSENT: nystagmus, periorbital swelling Mouth exam: PRESENT: dry mucosa, neck supple, tongue midline, other - ET tube. ABSENT: laceration, moist Teeth exam: PRESENT: poor dentation Neck exam: ABSENT: carotid bruit, JVD, lymphadenopathy, thyromegaly, tracheal deviation, tracheostomy Respiratory exam: PRESENT: crackles, decreased breath sounds, prolonged expiratory phas, rhonchi, symmetrical, tachypnea, unlabored, wheezes. ABSENT: retraction, stridor Cardiovascular exam: PRESENT: RRR, +S1, +S2, tachycardia Pulses: PRESENT: normal radial pulses GI/Abdominal exam: PRESENT: other - ostom Gentrourinary exam: PRESENT: indwelling catheter, other - inguinal peritonea Extremities exam: ABSENT: clubbing Musculoskeletal exam: ABSENT: ambulatory, dislocation, full ROM Neurological exam: ABSENT: alert, awake, oriented to person Skin exam: PRESENT: dry, warm Results Laboratory Results: 08/26/17 04:10 08/26/17 04:10 08/25/17 08/25/17 08/25/17 12:00 15:35 15:35 WBC 14.5 H RBC 4.29 L Hgb 10.8 L Hct 34.5 L MCV 81 MCH 25.3 L MCHC 31.4 L RDW 18.1 H Plt Count 515 H Seg Neutrophils % Lymphocytes % Monocytes % Eosinophils % Basophils % Absolute Neutrophils Absolute Lymphocytes Absolute Monocytes Absolute Eosinophils Absolute Basophils Carbonic Acid 0.96 L HCO3/H2CO3 Ratio 14:1 ABG pH 7.27 L ABG pCO2 32.0 L ABG pO2 98.8 ABG HCO3 14.3 L ABG O2 Saturation 96.8 ABG Base Excess -11.4 FiO2 100% Sodium 143.6 Potassium 4.2 Chloride 117 H Carbon Dioxide 13 L Anion Gap 14 BUN 10 Creatinine 0.65 Est GFR ( Amer) > 60 Est GFR (Non-Af Amer) > 60 Glucose 434 H* Lactic Acid Calcium 9.7 Phosphorus 1.9 L Magnesium 2.4 H Urine Color Urine Appearance Urine pH Ur Specific [place] Urine Protein Urine Glucose (UA) Urine Ketones Urine Blood Urine Nitrite Ur Leukocyte Esterase Urine WBC (Auto) Urine RBC (Auto) 08/25/17 08/25/17 08/25/17 15:35 17:40 19:32 WBC RBC Hgb Hct MCV MCH MCHC RDW Plt Count Seg Neutrophils % Lymphocytes % Monocytes % Eosinophils % Basophils % Absolute Neutrophils Absolute Lymphocytes Absolute Monocytes Absolute Eosinophils Absolute Basophils Carbonic Acid 1.16 HCO3/H2CO3 Ratio 14:1 ABG pH 7.27 L ABG pCO2 38.5 ABG pO2 131.3 H ABG HCO3 17.3 L ABG O2 Saturation 98.3 H ABG Base Excess -8.9 FiO2 100% Sodium Potassium Chloride Carbon Dioxide Anion Gap BUN Creatinine Est GFR ( Amer) Est GFR (Non-Af Amer) Glucose Lactic Acid 2.8 H 2.7 H Calcium Phosphorus Magnesium Urine Color Urine Appearance Urine pH Ur Specific [place] Urine Protein Urine Glucose (UA) Urine Ketones Urine Blood Urine Nitrite Ur Leukocyte Esterase Urine WBC (Auto) Urine RBC (Auto) 08/25/17 08/25/17 08/25/17 21:15 22:00 22:40 WBC 18.1 H RBC 4.04 L Hgb 10.1 L Hct 32.9 L MCV 82 MCH 25.1 L MCHC 30.8 L RDW 17.5 H Plt Count 495 H Seg Neutrophils % Lymphocytes % Monocytes % Eosinophils % Basophils % Absolute Neutrophils Absolute Lymphocytes Absolute Monocytes Absolute Eosinophils Absolute Basophils Carbonic Acid HCO3/H2CO3 Ratio ABG pH ABG pCO2 ABG pO2 ABG HCO3 ABG O2 Saturation ABG Base Excess FiO2 Sodium 145.8 H Potassium 3.7 Chloride 120 H Carbon Dioxide 15 L Anion Gap 11 BUN 7 Creatinine 0.55 Est GFR ( Amer) > 60 Est GFR (Non-Af Amer) > 60 Glucose 278 H Lactic Acid Calcium 9.2 Phosphorus 2.5 Magnesium 1.9 Urine Color YELLOW Urine Appearance TURBID Urine pH 5.0 Ur Specific [place] 1.009 Urine Protein 30 H Urine Glucose (UA) >=500 H Urine Ketones NEGATIVE Urine Blood SMALL H Urine Nitrite NEGATIVE Ur Leukocyte Esterase NEGATIVE Urine WBC (Auto) 2 Urine RBC (Auto) 1 08/26/17 08/26/17 08/26/17 04:10 04:10 04:10 WBC 19.8 H RBC 4.02 L Hgb 10.1 L Hct 32.4 L MCV 81 MCH 25.2 L MCHC 31.4 L RDW 17.4 H Plt Count 483 H Seg Neutrophils % Not Reportable Lymphocytes % Not Reportable Monocytes % Not Reportable Eosinophils % Not Reportable Basophils % Not Reportable Absolute Neutrophils Not Reportable Absolute Lymphocytes Not Reportable Absolute Monocytes Not Reportable Absolute Eosinophils Not Reportable Absolute Basophils Not Reportable Carbonic Acid 1.25 HCO3/H2CO3 Ratio 13:1 ABG pH 7.23 L ABG pCO2 41.5 ABG pO2 72.5 L ABG HCO3 17.1 L ABG O2 Saturation 91.8 L ABG Base Excess -9.9 FiO2 80% Sodium 144.3 Potassium 3.7 Chloride 118 H Carbon Dioxide 16 L Anion Gap 10 BUN 6 L Creatinine 0.59 Est GFR ( Amer) > 60 Est GFR (Non-Af Amer) > 60 Glucose 173 H Lactic Acid Calcium 9.4 Phosphorus 3.2 Magnesium 1.7 Urine Color Urine Appearance Urine pH Ur Specific [place] Urine Protein Urine Glucose (UA) Urine Ketones Urine Blood Urine Nitrite Ur Leukocyte Esterase Urine WBC (Auto) Urine RBC (Auto) 08/24/17 08/24/17 08/25/17 18:00 22:00 05:15 Creatine Kinase 140 117 82 Impressions: Chest X-Ray 08/26/17 06:00 IMPRESSION: Interval worsening includes moderate patchiness of the right lower lobe. Assessment & Plan - Diagnosis (1) Abscess or cellulitis of perineum Is this a current diagnosis for this admission?: Yes Plan: patient scheduled for 2nd surgical debredment (2) Acute respiratory failure with hypoxia Is this a current diagnosis for this admission?: Yes Plan: hypoxic hypercapnic adjust ventilation will need neuromuscular bloc as patient fightind vent despite propofol,opiates and veresed drip (3) Septic shock Is this a current diagnosis for this admission?: Yes Plan: vol repletion LR and vaspressor 08/25/17 18:30 Gram Stain - Preliminary Groin - Abscess Wound Culture - Preliminary Corynebacterium Species Gram Positive Cocci In Pairs Gram Negative Rods 08/25/17 09:25 Gram Stain - Final Tracheal Aspirate Sputum Culture - Final Mrsa (Meth Resis Staph Aureus) C.albicans/C.dubliniensis Normal [place] Absent 08/24/17 20:52 Gram Stain - Final Buttocks - Abscess Wound Culture - Final Bacteroides Fragilis Group Corynebacterium Striatum Staphylococcus Epidermidis 08/24/17 20:48 Gram Stain - Final Buttocks - Abscess Wound Culture - Preliminary Bacteroides Fragilis Group Corynebacterium Species Gram Positive Cocci Clusters 08/24/17 14:59 Gram Stain - Final Perineum Wound Culture - Preliminary Corynebacterium Species Gram Positive Cocci In Pairs Bacteroides Fragilis Group 08/24/17 14:59 Blood Culture - Preliminary Blood NO GROWTH 4 DAYS 08/24/17 14:59 Blood Culture - Final Blood Corynebacterium Striatum (4) Severe protein-calorie malnutrition Is this a current diagnosis for this admission?: Yes - Time Total Critical Time (Minutes): 55
--- NOTE | 2017-08-28 19:50 | PDOC PROGRESS REPORT ---
Subjective Progress Note for:: 08/27/17 Subjective:: intubated sedated Reason For Visit: DKA, SEPSIS Physical Exam Vital Signs: Temp Pulse Resp BP Pulse Ox 101.1 F H 114 H 28 H 103/93 H 100 08/27/17 08:49 08/27/17 08:49 08/27/17 08:49 08/27/17 08:49 08/27/17 08:49 Intake & Output 08/26/17 08/27/17 08/28/17 06:59 06:59 06:59 Intake Total 5954 4759 Output Total 2735 4125 280 Balance 3219 634 -280 Weight 58.9 kg 59.1 kg General appearance: PRESENT: no acute distress, disheveled, thin Head exam: PRESENT: atraumatic, normocephalic Eye exam: PRESENT: conjunctiva pale. ABSENT: nystagmus Mouth exam: PRESENT: dry mucosa, neck supple, tongue midline, other - ET Teeth exam: PRESENT: poor dentation Neck exam: ABSENT: carotid bruit, JVD, lymphadenopathy, thyromegaly, tracheal deviation, tracheostomy Respiratory exam: PRESENT: decreased breath sounds, prolonged expiratory phas, rales, rhonchi, symmetrical, other. ABSENT: accessory muscle use, clear to auscultation [place], retraction, stridor Cardiovascular exam: PRESENT: RRR, +S1, +S2, tachycardia Pulses: PRESENT: normal radial pulses GI/Abdominal exam: PRESENT: diminished bowel sounds, soft, other - colostomy Gentrourinary exam: PRESENT: indwelling catheter Extremities exam: ABSENT: calf tenderness, clubbing, full ROM Musculoskeletal exam: ABSENT: ambulatory, dislocation, normal inspection Neurological exam: PRESENT: oriented to person. ABSENT: alert, awake Skin exam: PRESENT: dry, warm Results Laboratory Results: 08/27/17 06:20 08/27/17 06:20 08/26/17 08/26/17 08/26/17 10:20 10:20 17:30 WBC RBC Hgb Hct MCV MCH MCHC RDW Plt Count Seg Neutrophils % Lymphocytes % Monocytes % Eosinophils % Basophils % Absolute Neutrophils Absolute Lymphocytes Absolute Monocytes Absolute Eosinophils Absolute Basophils Carbonic Acid HCO3/H2CO3 Ratio ABG pH ABG pCO2 ABG pO2 ABG HCO3 ABG O2 Saturation ABG Base Excess FiO2 Sodium 144.4 Potassium 4.2 Chloride 115 H Carbon Dioxide 18 L Anion Gap 11 BUN 6 L Creatinine 0.67 Cancelled Est GFR ( Amer) > 60 Cancelled Est GFR (Non-Af Amer) > 60 Cancelled Glucose 154 H Calcium 9.1 Phosphorus 3.5 Cancelled Magnesium 1.6 Cancelled 08/26/17 08/26/17 08/26/17 17:30 22:10 22:10 WBC RBC Hgb Hct MCV MCH MCHC RDW Plt Count Seg Neutrophils % Lymphocytes % Monocytes % Eosinophils % Basophils % Absolute Neutrophils Absolute Lymphocytes Absolute Monocytes Absolute Eosinophils Absolute Basophils Carbonic Acid HCO3/H2CO3 Ratio ABG pH ABG pCO2 ABG pO2 ABG HCO3 ABG O2 Saturation ABG Base Excess FiO2 Sodium 142.5 143.2 Potassium 4.0 3.9 Chloride 114 H 113 H Carbon Dioxide 18 L 19 L Anion Gap 11 11 BUN 6 L 6 L Creatinine 0.71 0.72 Est GFR ( Amer) > 60 > 60 Est GFR (Non-Af Amer) > 60 > 60 Glucose 111 H 98 Calcium 9.3 9.2 Phosphorus 3.6 3.4 Cancelled Magnesium 1.5 L 2.2 Cancelled 08/27/17 08/27/17 08/27/17 06:20 06:20 06:20 WBC 29.8 H RBC 3.76 L Hgb 9.5 L Hct 29.8 L MCV 79 L MCH 25.3 L MCHC 31.9 L RDW 17.5 H Plt Count 471 H Seg Neutrophils % Not Reportable Lymphocytes % Not Reportable Monocytes % Not Reportable Eosinophils % Not Reportable Basophils % Not Reportable Absolute Neutrophils Not Reportable Absolute Lymphocytes Not Reportable Absolute Monocytes Not Reportable Absolute Eosinophils Not Reportable Absolute Basophils Not Reportable Carbonic Acid 1.19 HCO3/H2CO3 Ratio 18:1 ABG pH 7.36 ABG pCO2 39.5 ABG pO2 128.1 H ABG HCO3 21.8 ABG O2 Saturation 98.4 H ABG Base Excess -3.4 FiO2 60% Sodium 144.9 Potassium 3.9 Chloride 114 H Carbon Dioxide 20 L Anion Gap 11 BUN 6 L Creatinine 0.74 Est GFR ( Amer) > 60 Est GFR (Non-Af Amer) > 60 Glucose 48 L Calcium 9.0 Phosphorus 3.6 Magnesium 1.9 08/24/17 08/24/17 08/25/17 18:00 22:00 05:15 Creatine Kinase 140 117 82 Impressions: Thoracic Spine CT 08/26/17 08:00 IMPRESSION: No acute findings in the thoracic spine. Chest X-Ray 08/27/17 06:00 IMPRESSION: No significant change. Assessment & Plan - Diagnosis (1) Abscess or cellulitis of perineum Is this a current diagnosis for this admission?: Yes Plan: patient scheduled for 2nd surgical debredment (2) Acute respiratory failure with hypoxia Is this a current diagnosis for this admission?: Yes Plan: hypoxic hypercapnic adjust ventilation will need neuromuscular bloc as patient fightind vent despite propofol,opiates and veresed drip (3) Diabetic keto-acidosis Qualifiers: Diabetes mellitus type: type 1 Diabetes mellitus complication detail: without coma Qualified Code(s): E10.10 - Type 1 diabetes mellitus with ketoacidosis without coma Is this a current diagnosis for this admission?: Yes Plan: dibetix ketotic and acidotic insulin drip until ketones are clear (4) Septic shock Is this a current diagnosis for this admission?: Yes Plan: vol repletion LR and vaspressor 08/25/17 18:30 Gram Stain - Preliminary Groin - Abscess Wound Culture - Preliminary Corynebacterium Species Gram Positive Cocci In Pairs Gram Negative Rods 08/25/17 09:25 Gram Stain - Final Tracheal Aspirate Sputum Culture - Final Mrsa (Meth Resis Staph Aureus) C.albicans/C.dubliniensis Normal [place] Absent 08/24/17 20:52 Gram Stain - Final Buttocks - Abscess Wound Culture - Final Bacteroides Fragilis Group Corynebacterium Striatum Staphylococcus Epidermidis 08/24/17 20:48 Gram Stain - Final Buttocks - Abscess Wound Culture - Preliminary Bacteroides Fragilis Group Corynebacterium Species Gram Positive Cocci Clusters 08/24/17 14:59 Gram Stain - Final Perineum Wound Culture - Preliminary Corynebacterium Species Gram Positive Cocci In Pairs Bacteroides Fragilis Group 08/24/17 14:59 Blood Culture - Preliminary Blood NO GROWTH 4 DAYS 08/24/17 14:59 Blood Culture - Final Blood Corynebacterium Striatum (5) Malnutrition of moderate degree Is this a current diagnosis for this admission?: Yes Plan: enteral nutrition as tolerated (6) Tobacco abuse Is this a current diagnosis for this admission?: Yes Plan: transdermal nicotene - Time Total Critical Time (Minutes): 50
--- NOTE | 2017-08-28 19:58 | PDOC PROGRESS REPORT ---
Subjective Progress Note for:: 08/28/17 Subjective:: intubated sedated Reason For Visit: DKA, SEPSIS Physical Exam Vital Signs: Temp Pulse Resp BP Pulse Ox 99.7 F 102 H 28 H 90/75 L 99 08/28/17 18:00 08/28/17 18:14 08/28/17 18:15 08/28/17 18:00 08/28/17 18:15 Intake & Output 08/27/17 08/28/17 08/29/17 06:59 06:59 06:59 Intake Total 4759 3870 2256 Output Total 4121 7160 2130 Balance 634 -3290 126 Weight 59.1 kg 59.8 kg General appearance: PRESENT: no acute distress, disheveled, thin. ABSENT: cooperative Head exam: PRESENT: atraumatic, normocephalic Eye exam: PRESENT: conjunctiva pale. ABSENT: nystagmus Mouth exam: PRESENT: dry mucosa, neck supple, tongue midline, other - ET tube Teeth exam: PRESENT: poor dentation Neck exam: ABSENT: carotid bruit, JVD, lymphadenopathy, thyromegaly, tracheal deviation, tracheostomy Respiratory exam: PRESENT: crackles, decreased breath sounds, prolonged expiratory phas, rhonchi, symmetrical, unlabored, wheezes. ABSENT: retraction, stridor Cardiovascular exam: PRESENT: RRR, +S1, +S2, tachycardia Pulses: PRESENT: normal radial pulses GI/Abdominal exam: PRESENT: diminished bowel sounds, soft, other - colostomy Gentrourinary exam: PRESENT: indwelling catheter Extremities exam: ABSENT: clubbing, full ROM Musculoskeletal exam: ABSENT: ambulatory, dislocation, normal inspection Neurological exam: ABSENT: alert, awake, oriented to person Skin exam: PRESENT: dry, warm Results Laboratory Results: 08/28/17 08:38 08/28/17 18:10 08/27/17 08/28/17 08/28/17 23:45 02:20 08:38 WBC RBC Hgb Hct MCV MCH MCHC RDW Plt Count Seg Neutrophils % Lymphocytes % Monocytes % Eosinophils % Basophils % Absolute Neutrophils Absolute Lymphocytes Absolute Monocytes Absolute Eosinophils Absolute Basophils Carbonic Acid Cancelled HCO3/H2CO3 Ratio Cancelled ABG pH Cancelled ABG pCO2 Cancelled ABG pO2 Cancelled ABG HCO3 Cancelled ABG O2 Saturation Cancelled ABG Base Excess Cancelled FiO2 Cancelled Sodium Potassium Chloride Carbon Dioxide Anion Gap BUN Creatinine Est GFR ( Amer) Est GFR (Non-Af Amer) Glucose Calcium Phosphorus 4.1 3.5 Magnesium 1.6 1.7 08/28/17 08/28/17 08/28/17 08:38 08:38 08:38 WBC 27.8 H RBC 3.88 L Hgb 9.7 L Hct 30.2 L MCV 78 L MCH 25.1 L MCHC 32.2 RDW 18.0 H Plt Count 459 H Seg Neutrophils % Not Reportable Lymphocytes % Not Reportable Monocytes % Not Reportable Eosinophils % Not Reportable Basophils % Not Reportable Absolute Neutrophils Not Reportable Absolute Lymphocytes Not Reportable Absolute Monocytes Not Reportable Absolute Eosinophils Not Reportable Absolute Basophils Not Reportable Carbonic Acid HCO3/H2CO3 Ratio ABG pH ABG pCO2 ABG pO2 ABG HCO3 ABG O2 Saturation ABG Base Excess FiO2 Sodium 146.0 H Potassium 2.9 L* Chloride 113 H Carbon Dioxide 22 Anion Gap 11 BUN 7 Creatinine 0.72 Est GFR ( Amer) > 60 Est GFR (Non-Af Amer) > 60 Glucose 176 H Calcium 9.2 Phosphorus 3.8 Magnesium Cancelled 08/28/17 08/28/17 08/28/17 09:34 09:34 10:37 WBC RBC Hgb Hct MCV MCH MCHC RDW Plt Count Seg Neutrophils % Lymphocytes % Monocytes % Eosinophils % Basophils % Absolute Neutrophils Absolute Lymphocytes Absolute Monocytes Absolute Eosinophils Absolute Basophils Carbonic Acid 1.35 HCO3/H2CO3 Ratio 17:1 ABG pH 7.35 ABG pCO2 44.9 ABG pO2 95.1 ABG HCO3 24.0 ABG O2 Saturation 96.9 ABG Base Excess -1.7 FiO2 45% Sodium Potassium Chloride Carbon Dioxide Anion Gap BUN Creatinine Est GFR ( Amer) Est GFR (Non-Af Amer) Glucose Calcium Phosphorus Cancelled 4.6 H Magnesium Cancelled 1.6 08/28/17 18:10 WBC RBC Hgb Hct MCV MCH MCHC RDW Plt Count Seg Neutrophils % Lymphocytes % Monocytes % Eosinophils % Basophils % Absolute Neutrophils Absolute Lymphocytes Absolute Monocytes Absolute Eosinophils Absolute Basophils Carbonic Acid HCO3/H2CO3 Ratio ABG pH ABG pCO2 ABG pO2 ABG HCO3 ABG O2 Saturation ABG Base Excess FiO2 Sodium Potassium 3.5 L Chloride Carbon Dioxide Anion Gap BUN Creatinine Est GFR ( Amer) Est GFR (Non-Af Amer) Glucose Calcium Phosphorus 2.9 Magnesium 2.1 08/24/17 20:48 Buttocks - Abscess Gram Stain - Final 08/24/17 20:52 Buttocks - Abscess Gram Stain - Final 08/24/17 20:52 Buttocks - Abscess Wound Culture - Final Bacteroides Fragilis Group Corynebacterium Striatum Staphylococcus Epidermidis 08/25/17 09:25 Tracheal Aspirate Gram Stain - Final 08/25/17 09:25 Tracheal Aspirate Sputum Culture - Final Mrsa (Meth Resis Staph Aureus) C.albicans/C.dubliniensis Normal [place] Absent 08/24/17 08/24/17 08/25/17 18:00 22:00 05:15 Creatine Kinase 140 117 82 Impressions: Thoracic Spine CT 08/26/17 08:00 IMPRESSION: No acute findings in the thoracic spine. Abdomen/Pelvis CT 08/27/17 00:00 IMPRESSION: 1. Extensive basilar pulmonary changes suggesting pneumonia. 2. No evidence of intra- abdominal or intrapelvic abscess or drainable collection. Postoperative changes as above without evidence of mechanical bowel obstruction. 3. Marked irregular soft tissue loss in the proximal left posterior and medial thigh, incompletely assessed. No suggestion of regional drainable collection as imaged. Chest X-Ray 08/28/17 06:00 IMPRESSION: No significant change. Assessment & Plan - Diagnosis (1) Abscess or cellulitis of perineum Is this a current diagnosis for this admission?: Yes Plan: patient scheduled for 2nd surgical debredment (2) Acute respiratory failure with hypoxia Is this a current diagnosis for this admission?: Yes Plan: hypoxic hypercapnic adjust ventilation will need neuromuscular bloc as patient fightind vent despite propofol,opiates and veresed drip (3) Diabetic keto-acidosis Qualifiers: Diabetes mellitus type: type 1 Diabetes mellitus complication detail: without coma Qualified Code(s): E10.10 - Type 1 diabetes mellitus with ketoacidosis without coma Is this a current diagnosis for this admission?: Yes Plan: dibetix ketotic and acidotic insulin drip until ketones are clear (4) Septic shock Is this a current diagnosis for this admission?: Yes Plan: vol repletion LR and vaspressor 08/25/17 18:30 Gram Stain - Preliminary Groin - Abscess Wound Culture - Preliminary Corynebacterium Species Gram Positive Cocci In Pairs Gram Negative Rods 08/25/17 09:25 Gram Stain - Final Tracheal Aspirate Sputum Culture - Final Mrsa (Meth Resis Staph Aureus) C.albicans/C.dubliniensis Normal [place] Absent 08/24/17 20:52 Gram Stain - Final Buttocks - Abscess Wound Culture - Final Bacteroides Fragilis Group Corynebacterium Striatum Staphylococcus Epidermidis 08/24/17 20:48 Gram Stain - Final Buttocks - Abscess Wound Culture - Preliminary Bacteroides Fragilis Group Corynebacterium Species Gram Positive Cocci Clusters 08/24/17 14:59 Gram Stain - Final Perineum Wound Culture - Preliminary Corynebacterium Species Gram Positive Cocci In Pairs Bacteroides Fragilis Group 08/24/17 14:59 Blood Culture - Preliminary Blood NO GROWTH 4 DAYS 08/24/17 14:59 Blood Culture - Final Blood Corynebacterium Striatum (5) Malnutrition of moderate degree Is this a current diagnosis for this admission?: Yes Plan: enteral nutrition as tolerated (6) Tobacco abuse Is this a current diagnosis for this admission?: Yes Plan: transdermal nicotene - Time Total Critical Time (Minutes): 55
[2017-08-28] MEDS: DEXTROSE 5%-WATER 250 ML with PHENYLEPHRINE HCL 40 MG IV PRN ×2 (20:06)
[2017-08-28] MEDS: DULOXETINE HCL 30 MG CAPSULE.DR PO SCH (22:04)
[2017-08-29] MEDS: IPRATROPIUM/ALBUTEROL 0.5-2.5 MG/3 ML AMPUL NEB SCH ×6 (00:24→19:51)
[2017-08-29] MEDS: METRONIDAZOLE 500 MG/NS RTU 100 ML IV SCH ×4 (00:58→18:27)
[2017-08-29 01:43] LABS: PHOSPHORUS 3.1 mg/dL (2.5-4.5)
[2017-08-29] MEDS: HYDROMORPHONE HCL INJ/PF 2 MG/ML AMPULE IV SCH ×6 (01:54→21:57)
[2017-08-29] MEDS: PIPERACILLIN SODIUM/TAZOBACTAM 4.5 GM in NORMAL SALINE 100 ML IV SCH ×4 (02:15→20:25)
[2017-08-29] MEDS ORDERED: PHENYLEPHRINE HCL INJ/PF 10 MG/1 ML SDV ONE (02:17)
[2017-08-29] MEDS: ACETAMINOPHEN 325 MG TABLET NG PRN ×3 (02:24→21:54)
[2017-08-29] MEDS: DEXTROSE 5%-WATER 250 ML with PHENYLEPHRINE HCL 40 MG IV PRN ×6 (02:24→20:52)
[2017-08-29 06:59] LABS: ARTERIAL BLOOD BASE EXCESS -1.5 mmol/L; ARTERIAL BLOOD FIO2 50%; ARTERIAL BLOOD H2CO3 1.06 mmol/L (1.05-1.35); ARTERIAL BLOOD HCO3 22.4 mmol/L (20-26); ARTERIAL BLOOD O2 SATURATION 97.8 % (94-98); ARTERIAL BLOOD PCO2 35.1 mmHg (35-45); ARTERIAL BLOOD PH 7.42 (7.35-7.45); ARTERIAL BLOOD PO2 101.3 mmHg (80-100); ARTERIAL BLOOD TOTAL CO2 23.4 mmol/L (23-27)
[2017-08-29 07:22] LABS: PHOSPHORUS 3.2 mg/dL (2.5-4.5)
--- NOTE | 2017-08-29 07:55 | RADIOLOGY REPORT (SQ) ---
EXAM DESCRIPTION: CHEST SINGLE VIEW CLINICAL HISTORY: 51 years Male, resp failure COMPARISON: 08/28/17. NUMBER OF VIEWS/TECHNIQUE: 1/AP LIMITATIONS: None. FINDINGS: Moderate mixed airspace and interstitial opacities with lower predominance. Normal cardiac silhouette. No pneumothorax. Adequate appearing endotracheal tube and left jugular central line. Likely adequate enteric tube obscured distally. IMPRESSION: Interval worsening includes moderate patchy airspace opacities.
[2017-08-29 09:37] LABS: ABSOLUTE BASOPHILS # (AUTO) 0.2 10^3/uL (0.0-0.2); ABSOLUTE EOSINOPHILS # (AUTO) 0.3 10^3/uL (0.0-0.6); ABSOLUTE LYMPHOCYTES (AUTO) 4.4 10^3/uL (0.5-4.7); ABSOLUTE MONOCYTES (AUTO) 1.1 10^3/uL (0.1-1.4); ABSOLUTE NEUT (AUTO) 11.7 10^3/uL (1.7-8.2); BASOPHILS % (AUTO) 0.8 % (0-2); EOSINOPHILS % (AUTO) 1.9 % (0-6); HEMATOCRIT 29.3 % (37.9-51.0); HEMOGLOBIN 9.3 g/dL (13.5-17.0); LYMPHOCYTES % (AUTO) 24.8 % (13-45); MEAN CORPUSCULAR HGB CONC 31.8 g/dL (32.0-36.0); MEAN CORPUSCULAR VOLUME 79 fl (80-97); MONOCYTES % (AUTO) 6.2 % (3-13); PLATELET COUNT 388 10^3/uL (150-450); RED BLOOD COUNT 3.73 10^6/uL (4.35-5.55); RED CELL DISTRIBUTION WIDTH 17.9 % (11.5-14.0); SEGMENTED NEUTROPHILS % (AUTO) 66.3 % (42-78); TOTAL CELLS COUNTED % (AUTO) 100 %; WHITE BLOOD COUNT 17.7 10^3/uL (4.0-10.5)
[2017-08-29 09:39] LABS: ALANINE AMINOTRANSFERASE 20 U/L (21-72); ALBUMIN 1.9 g/dL (3.5-5.0); ALKALINE PHOSPHATASE 145 U/L (38-126); ANION GAP 9 (5-19); ASPARTATE AMINO TRANSFERASE 14 U/L (17-59); BILIRUBIN,DIRECT 0.3 mg/dL (0.0-0.4); BILIRUBIN,TOTAL 0.3 mg/dL (0.2-1.3); BLOOD UREA NITROGEN 6 mg/dL (7-20); CALCIUM 9.2 mg/dL (8.4-10.2); CARBON DIOXIDE 22 mmol/L (22-30); CHLORIDE 113 mmol/L (98-107); GLUCOSE 245 mg/dL (75-110); POTASSIUM 3.3 mmol/L (3.6-5.0); SODIUM 143.5 mmol/L (137-145); TOTAL PROTEIN 4.5 g/dL (6.3-8.2)
[2017-08-29] MEDS: GABAPENTIN 300 MG CAPSULE PO SCH ×3 (09:41→21:53)
[2017-08-29] MEDS: FLUCONAZOLE 400 MG/NS RTU 400 MG/200 ML RTUPB IV SCH (09:45)
[2017-08-29] MEDS: FAMOTIDINE INJ/PF 20 MG/2 ML SDV IV SCH ×2 (09:46→21:56)
[2017-08-29] MEDS: PREDNISONE 10 MG TABLET PO SCH (09:47)
[2017-08-29] MEDS: DULOXETINE HCL 30 MG CAPSULE.DR PO SCH ×2 (09:48→21:52)
[2017-08-29] MEDS: ENOXAPARIN SODIUM INJ 40 MG/0.4 ML DISP.SYRIN SUBCUT SCH (10:00)
[2017-08-29] MEDS: POTASSI CL 20 MEQ/D5LR 1L 20 MEQ/1,000 ML RTUINJ IV PRN (10:03)
[2017-08-29 10:25] LABS: PHOSPHORUS 2.9 mg/dL (2.5-4.5)
--- NOTE | 2017-08-29 10:53 | PDOC PROGRESS REPORT ---
Subjective Progress Note for:: 08/29/17 Reason For Visit: DKA, SEPSIS Surveillance surgical follow-up evaluation for this patient on ventilator, tube feeds, low-dose Ok-Synephrine, successful ostomy output. Has moderate amount of drainage from deep soft tissue wounds of the left groin Physical Exam Vital Signs: Temp Pulse Resp BP Pulse Ox 100.9 F H 102 H 28 H 113/86 H 99 08/29/17 08:00 08/29/17 08:47 08/29/17 08:47 08/29/17 08:00 08/29/17 08:47 Intake & Output 08/28/17 08/29/17 08/30/17 06:59 06:59 06:59 Intake Total 3870 3933 Output Total 7160 4180 200 Balance -3290 -247 -200 Weight 59.8 kg 61.1 kg General appearance: PRESENT: other - Patient on ventilator hemodynamically stable, sedated with propofol. Skin exam: PRESENT: other - Patient rolled in the supine position, left leg abducted. 2 acute wounds communicating via deep subcutaneous tunnel involving the left groin, the left ischium. Both wounds are reasonably clean with granulating surfaces; some purulent discharge along the Jaun drain. Jaun drain removed wound irrigated and both wounds repacked with moist gauze. Perineum with chronic wounds, and purulent discharge; no acute action that needs operative drainage Results Laboratory Results: 08/29/17 09:20 08/29/17 06:40 08/28/17 08/28/17 08/28/17 09:34 10:37 18:10 WBC RBC Hgb Hct MCV MCH MCHC RDW Plt Count Seg Neutrophils % Lymphocytes % Monocytes % Eosinophils % Basophils % Absolute Neutrophils Absolute Lymphocytes Absolute Monocytes Absolute Eosinophils Absolute Basophils Carbonic Acid 1.35 HCO3/H2CO3 Ratio 17:1 ABG pH 7.35 ABG pCO2 44.9 ABG pO2 95.1 ABG HCO3 24.0 ABG O2 Saturation 96.9 ABG Base Excess -1.7 FiO2 45% Sodium Potassium 3.5 L Chloride Carbon Dioxide Anion Gap BUN Creatinine Est GFR ( Amer) Est GFR (Non-Af Amer) Glucose Calcium Phosphorus 4.6 H 2.9 Magnesium 1.6 2.1 Total Bilirubin AST ALT Alkaline Phosphatase Total Protein Albumin 08/29/17 08/29/17 08/29/17 01:10 06:40 06:40 WBC RBC Hgb Hct MCV MCH MCHC RDW Plt Count Seg Neutrophils % Lymphocytes % Monocytes % Eosinophils % Basophils % Absolute Neutrophils Absolute Lymphocytes Absolute Monocytes Absolute Eosinophils Absolute Basophils Carbonic Acid 1.06 HCO3/H2CO3 Ratio 21:1 ABG pH 7.42 ABG pCO2 35.1 ABG pO2 101.3 H ABG HCO3 22.4 ABG O2 Saturation 97.8 ABG Base Excess -1.5 FiO2 50% Sodium Potassium Chloride Carbon Dioxide Anion Gap BUN Creatinine Est GFR ( Amer) Est GFR (Non-Af Amer) Glucose Calcium Phosphorus 3.1 3.2 Magnesium 1.8 1.7 Total Bilirubin AST ALT Alkaline Phosphatase Total Protein Albumin 08/29/17 08/29/17 08/29/17 06:40 09:20 09:20 WBC 17.7 H RBC 3.73 L Hgb 9.3 L Hct 29.3 L MCV 79 L MCH 25.0 L MCHC 31.8 L RDW 17.9 H Plt Count 388 Seg Neutrophils % 66.3 Lymphocytes % 24.8 Monocytes % 6.2 Eosinophils % 1.9 Basophils % 0.8 Absolute Neutrophils 11.7 H Absolute Lymphocytes 4.4 Absolute Monocytes 1.1 Absolute Eosinophils 0.3 Absolute Basophils 0.2 Carbonic Acid HCO3/H2CO3 Ratio ABG pH ABG pCO2 ABG pO2 ABG HCO3 ABG O2 Saturation ABG Base Excess FiO2 Sodium 143.5 Potassium 3.3 L Chloride 113 H Carbon Dioxide 22 Anion Gap 9 BUN 6 L Creatinine 0.78 Est GFR ( Amer) > 60 Est GFR (Non-Af Amer) > 60 Glucose 245 H Calcium 9.2 Phosphorus 2.9 Magnesium 1.5 L Total Bilirubin 0.3 AST 14 L ALT 20 L Alkaline Phosphatase 145 H Total Protein 4.5 L Albumin 1.9 L 08/24/17 20:48 Buttocks - Abscess Gram Stain - Final 08/24/17 20:52 Buttocks - Abscess Gram Stain - Final 08/24/17 20:52 Buttocks - Abscess Wound Culture - Final Bacteroides Fragilis Group Corynebacterium Striatum Staphylococcus Epidermidis 08/25/17 09:25 Tracheal Aspirate Gram Stain - Final 08/25/17 09:25 Tracheal Aspirate Sputum Culture - Final Mrsa (Meth Resis Staph Aureus) C.albicans/C.dubliniensis Normal [place] Absent 08/24/17 08/24/17 08/25/17 18:00 22:00 05:15 Creatine Kinase 140 117 82 Impressions: Thoracic Spine CT 08/26/17 08:00 IMPRESSION: No acute findings in the thoracic spine. Abdomen/Pelvis CT 08/27/17 00:00 IMPRESSION: 1. Extensive basilar pulmonary changes suggesting pneumonia. 2. No evidence of intra- abdominal or intrapelvic abscess or drainable collection. Postoperative changes as above without evidence of mechanical bowel obstruction. 3. Marked irregular soft tissue loss in the proximal left posterior and medial thigh, incompletely assessed. No suggestion of regional drainable collection as imaged. Chest X-Ray 08/29/17 06:00 IMPRESSION: Interval worsening includes moderate patchy airspace opacities. Assessment & Plan - Diagnosis (1) Groin abscess Is this a current diagnosis for this admission?: Yes Plan: Patient is status post debridement left groin and left issue wounds 2, with control of septic focus; no surgical indication for further debridement. Suspect leukocytosis secondary to sources other than soft tissue infection Plan: 1. Jaun drain replaced wound irrigated, and packed open 2. Continue local wound care. 3. Continue intravenous antibiotics.
[2017-08-29] MEDS: VANCOMYCIN HCL 1,000 MG in DEXTROSE 5%-WATER 250 ML IV SCH ×2 (11:07→21:53)
[2017-08-29] MEDS ORDERED: POTASSI CL 20 MEQ/50 ML RIDER 20 MEQ/50 ML RTUPB IV ONE (14:09)
[2017-08-29] MEDS ORDERED: MAGNESIUM SULFATE/D5W 1 GM/100 ML RTUPB IV ONE (14:36)
[2017-08-29] MEDS: INSULIN LISPRO 100 UNIT/ML 3 ML VIAL SUBCUT PRN ×2 (15:02→21:57)
[2017-08-29] MEDS: POTASSIUM CHLORIDE 20 MEQ/50 ML RTU IV ONE ×2 (15:19→16:19)
[2017-08-29] MEDS: MAGNESIUM SULFATE/D5W 1 GM/100 ML RTUPB IV ONE ×2 (15:19→16:21)
[2017-08-29] MEDS ORDERED: RINGERS SOLUTION,LACTATED 1,000 ML with POTASSIUM CHLORIDE 20 MEQ IV PRN ×2 (18:00)
--- NOTE | 2017-08-29 18:35 | PDOC PROGRESS REPORT ---
Subjective Progress Note for:: 08/29/17 Subjective:: PAtient is seen on rounds. He is orally intubated and sedated to the ventilator. He continues to be on IV neosynephrine to maintain MAP> 65mmhg. Nursing reports no issues other than continued fever overnight. Unable to perform review of systems due to sedation Reason For Visit: DKA, SEPSIS Physical Exam Vital Signs: Temp Pulse Resp BP Pulse Ox 100.9 F H 102 H 12 136/93 H 99 08/29/17 08:00 08/29/17 08:47 08/29/17 12:30 08/29/17 11:47 08/29/17 12:30 Intake & Output 08/28/17 08/29/17 08/30/17 06:59 06:59 06:59 Intake Total 3870 3933 Output Total 7160 4180 200 Balance -3290 -247 -200 Weight 59.8 kg 61.1 kg General appearance: PRESENT: no acute distress, thin, well-developed - intubated and sedated, other Head exam: PRESENT: atraumatic, normocephalic Eye exam: PRESENT: conjunctiva pale, EOMI, PERRLA. ABSENT: scleral icterus Ear exam: PRESENT: normal external ear exam Mouth exam: PRESENT: moist, tongue midline Teeth exam: PRESENT: poor dentation Neck exam: ABSENT: carotid bruit, JVD, lymphadenopathy, thyromegaly Respiratory exam: PRESENT: rhonchi - bilaterally, symmetrical, unlabored Cardiovascular exam: PRESENT: RRR. ABSENT: diastolic murmur, rubs, systolic murmur Pulses: PRESENT: normal dorsalis pedis pul Vascular exam: PRESENT: normal capillary refill GI/Abdominal exam: PRESENT: hypoactive bowel sounds, soft, other - ostomy with liquid stool. ABSENT: distended, guarding, mass, organolmegaly, rebound, tenderness Rectal exam: PRESENT: deferred Extremities exam: PRESENT: other - sedated and paralyzed on the vent. ABSENT: calf tenderness, clubbing, pedal edema Musculoskeletal exam: PRESENT: other Neurological exam: PRESENT: other - Sedated and on paralytics Psychiatric exam: PRESENT: other Focused psych exam: PRESENT: other Skin exam: PRESENT: other - 2 acute wounds communicating via deep subcutaneous tunnel involving the left groin, the left ischium. Both wounds are reasonably clean with granulating surfaces; some purulent discharge along the Jaun drain. Jaun drain removed wound irrigated and both wounds repacked with moist gauze. Perineum with chronic wounds, and purulent discharge ; no acute action that needs operative drainage Results Laboratory Results: 08/29/17 09:20 08/29/17 06:40 08/28/17 08/29/17 08/29/17 18:10 01:10 06:40 WBC RBC Hgb Hct MCV MCH MCHC RDW Plt Count Seg Neutrophils % Lymphocytes % Monocytes % Eosinophils % Basophils % Absolute Neutrophils Absolute Lymphocytes Absolute Monocytes Absolute Eosinophils Absolute Basophils Carbonic Acid HCO3/H2CO3 Ratio ABG pH ABG pCO2 ABG pO2 ABG HCO3 ABG O2 Saturation ABG Base Excess FiO2 Sodium Potassium 3.5 L Chloride Carbon Dioxide Anion Gap BUN Creatinine Est GFR ( Amer) Est GFR (Non-Af Amer) Glucose Calcium Phosphorus 2.9 3.1 3.2 Magnesium 2.1 1.8 1.7 Total Bilirubin AST ALT Alkaline Phosphatase Total Protein Albumin 08/29/17 08/29/17 08/29/17 06:40 06:40 09:20 WBC 17.7 H RBC 3.73 L Hgb 9.3 L Hct 29.3 L MCV 79 L MCH 25.0 L MCHC 31.8 L RDW 17.9 H Plt Count 388 Seg Neutrophils % 66.3 Lymphocytes % 24.8 Monocytes % 6.2 Eosinophils % 1.9 Basophils % 0.8 Absolute Neutrophils 11.7 H Absolute Lymphocytes 4.4 Absolute Monocytes 1.1 Absolute Eosinophils 0.3 Absolute Basophils 0.2 Carbonic Acid 1.06 HCO3/H2CO3 Ratio 21:1 ABG pH 7.42 ABG pCO2 35.1 ABG pO2 101.3 H ABG HCO3 22.4 ABG O2 Saturation 97.8 ABG Base Excess -1.5 FiO2 50% Sodium 143.5 Potassium 3.3 L Chloride 113 H Carbon Dioxide 22 Anion Gap 9 BUN 6 L Creatinine 0.78 Est GFR ( Amer) > 60 Est GFR (Non-Af Amer) > 60 Glucose 245 H Calcium 9.2 Phosphorus Magnesium Total Bilirubin 0.3 AST 14 L ALT 20 L Alkaline Phosphatase 145 H Total Protein 4.5 L Albumin 1.9 L 08/29/17 09:20 WBC RBC Hgb Hct MCV MCH MCHC RDW Plt Count Seg Neutrophils % Lymphocytes % Monocytes % Eosinophils % Basophils % Absolute Neutrophils Absolute Lymphocytes Absolute Monocytes Absolute Eosinophils Absolute Basophils Carbonic Acid HCO3/H2CO3 Ratio ABG pH ABG pCO2 ABG pO2 ABG HCO3 ABG O2 Saturation ABG Base Excess FiO2 Sodium Potassium Chloride Carbon Dioxide Anion Gap BUN Creatinine Est GFR ( Amer) Est GFR (Non-Af Amer) Glucose Calcium Phosphorus 2.9 Magnesium 1.5 L Total Bilirubin AST ALT Alkaline Phosphatase Total Protein Albumin 08/24/17 20:48 Buttocks - Abscess Gram Stain - Final 08/24/17 20:48 Buttocks - Abscess Wound Culture - Final Staphylococcus Epidermidis Corynebacterium Species Bacteroides Fragilis Group 08/24/17 20:52 Buttocks - Abscess Gram Stain - Final 08/24/17 20:52 Buttocks - Abscess Wound Culture - Final Bacteroides Fragilis Group Corynebacterium Striatum Staphylococcus Epidermidis 08/25/17 09:25 Tracheal Aspirate Gram Stain - Final 08/25/17 09:25 Tracheal Aspirate Sputum Culture - Final Mrsa (Meth Resis Staph Aureus) C.albicans/C.dubliniensis Normal [place] Absent 08/24/17 08/24/17 08/25/17 18:00 22:00 05:15 Creatine Kinase 140 117 82 Impressions: Thoracic Spine CT 08/26/17 08:00 IMPRESSION: No acute findings in the thoracic spine. Abdomen/Pelvis CT 08/27/17 00:00 IMPRESSION: 1. Extensive basilar pulmonary changes suggesting pneumonia. 2. No evidence of intra- abdominal or intrapelvic abscess or drainable collection. Postoperative changes as above without evidence of mechanical bowel obstruction. 3. Marked irregular soft tissue loss in the proximal left posterior and medial thigh, incompletely assessed. No suggestion of regional drainable collection as imaged. Chest X-Ray 08/29/17 06:00 IMPRESSION: Interval worsening includes moderate patchy airspace opacities. Assessment & Plan - Diagnosis (1) Acute respiratory failure with hypoxia Is this a current diagnosis for this admission?: Yes Plan: PAtient is intubated and sedated, ventilator management per pulmonary. Improving slowly (2) Decubitus ulcer Qualifiers: Pressure ulcer location: sacral region Pressure ulcer stage: stage 3 Qualified Code(s): L89.153 - Pressure ulcer of sacral region, stage 3 Is this a current diagnosis for this admission?: Yes Plan: Surgialist assisting with wound management. Continue antibiotics (3) Groin abscess Is this a current diagnosis for this admission?: Yes Plan: As above (4) Hidradenitis suppurativa of anus Is this a current diagnosis for this admission?: Yes (5) Hypoxic brain injury Is this a current diagnosis for this admission?: Yes (6) Septic shock Is this a current diagnosis for this admission?: Yes (7) Severe protein-calorie malnutrition Is this a current diagnosis for this admission?: Yes (8) Hypokalemia Is this a current diagnosis for this admission?: Yes Plan: Patient was found down and unresponsive. Will eventually once more stable need anoxia workup (9) Hypotension Qualifiers: Hypotension type: other hypotension type Qualified Code(s): I95.89 - Other hypotension Is this a current diagnosis for this admission?: Yes (10) Leukocytosis Qualifiers: Leukocytosis type: bandemia Qualified Code(s): D72.825 - Bandemia Is this a current diagnosis for this admission?: Yes (11) Pneumonia Qualifiers: Laterality: right Lung location: upper lobe of lung Is this a current diagnosis for this admission?: Yes (12) Sepsis Qualifiers: Sepsis type: puerperal sepsis Qualified Code(s): O85 - Puerperal sepsis Is this a current diagnosis for this admission?: Yes - Time Time Spent with patient: 35 or more minutes Total Critical Time (Minutes): 25 Medications reviewed and adjusted accordingly: Yes
[2017-08-29 23:16] LABS: PHOSPHORUS 2.4 mg/dL (2.5-4.5); POTASSIUM 3.4 mmol/L (3.6-5.0)
[2017-08-30] MEDS: METRONIDAZOLE 500 MG/NS RTU 100 ML IV SCH ×5 (00:15→23:47)
[2017-08-30] MEDS: IPRATROPIUM/ALBUTEROL 0.5-2.5 MG/3 ML AMPUL NEB SCH ×6 (00:30→20:20)
[2017-08-30] MEDS ORDERED: SODIUM PHOS,M-BASIC-D-BASIC 15 MMOL in NORMAL SALINE 250 ML IV ONE (00:30)
[2017-08-30] MEDS ORDERED: POTASSI CL 20 MEQ/50 ML RIDER 40 MEQ/100 ML RTUPB IV ONE (01:21)
[2017-08-30] MEDS: POTASSIUM CHLORIDE 20 MEQ/50 ML RTU IV SCH ×2 (01:26→02:37)
[2017-08-30] MEDS: PIPERACILLIN SODIUM/TAZOBACTAM 4.5 GM in NORMAL SALINE 100 ML IV SCH ×2 (02:08→09:43)
[2017-08-30] MEDS: HYDROMORPHONE HCL INJ/PF 2 MG/ML AMPULE IV SCH ×6 (02:08→23:49)
[2017-08-30] MEDS: GABAPENTIN 300 MG CAPSULE PO SCH (06:21)
[2017-08-30] MEDS ORDERED: METRONIDAZOLE 500 MG/NS RTU 100 ML IV ONE (06:24)
[2017-08-30 07:12] LABS: ARTERIAL BLOOD BASE EXCESS 4.1 mmol/L; ARTERIAL BLOOD FIO2 50%; ARTERIAL BLOOD H2CO3 0.96 mmol/L (1.05-1.35); ARTERIAL BLOOD HCO3 26.7 mmol/L (20-26); ARTERIAL BLOOD O2 SATURATION 98.9 % (94-98); ARTERIAL BLOOD PCO2 31.9 mmHg (35-45); ARTERIAL BLOOD PH 7.54 (7.35-7.45); ARTERIAL BLOOD PO2 126.1 mmHg (80-100); ARTERIAL BLOOD TOTAL CO2 27.7 mmol/L (23-27)
[2017-08-30 07:50] LABS: ABSOLUTE BASOPHILS # (AUTO) 0.1 10^3/uL (0.0-0.2); ABSOLUTE EOSINOPHILS # (AUTO) 0.2 10^3/uL (0.0-0.6); ABSOLUTE LYMPHOCYTES (AUTO) 3.8 10^3/uL (0.5-4.7); ABSOLUTE MONOCYTES (AUTO) 1.3 10^3/uL (0.1-1.4); ABSOLUTE NEUT (AUTO) 12.2 10^3/uL (1.7-8.2); BASOPHILS % (AUTO) 0.5 % (0-2); EOSINOPHILS % (AUTO) 1.2 % (0-6); HEMATOCRIT 29.7 % (37.9-51.0); HEMOGLOBIN 9.7 g/dL (13.5-17.0); LYMPHOCYTES % (AUTO) 21.5 % (13-45); MEAN CORPUSCULAR HEMOGLOBIN 25.2 pg (27.0-33.4); MEAN CORPUSCULAR HGB CONC 32.5 g/dL (32.0-36.0); MEAN CORPUSCULAR VOLUME 78 fl (80-97); MONOCYTES % (AUTO) 7.3 % (3-13); PLATELET COUNT 341 10^3/uL (150-450); RED BLOOD COUNT 3.83 10^6/uL (4.35-5.55); RED CELL DISTRIBUTION WIDTH 18.2 % (11.5-14.0); SEGMENTED NEUTROPHILS % (AUTO) 69.5 % (42-78); TOTAL CELLS COUNTED % (AUTO) 100 %; WHITE BLOOD COUNT 17.6 10^3/uL (4.0-10.5)
[2017-08-30 07:56] LABS: ALANINE AMINOTRANSFERASE 24 U/L (21-72); ALKALINE PHOSPHATASE 237 U/L (38-126); ANION GAP 10 (5-19); ASPARTATE AMINO TRANSFERASE 10 U/L (17-59); BILIRUBIN,DIRECT 0.3 mg/dL (0.0-0.4); BILIRUBIN,TOTAL 0.3 mg/dL (0.2-1.3); BLOOD UREA NITROGEN 3 mg/dL (7-20); CALCIUM 8.7 mg/dL (8.4-10.2); CARBON DIOXIDE 25 mmol/L (22-30); CHLORIDE 112 mmol/L (98-107); GLUCOSE 343 mg/dL (75-110); PHOSPHORUS 2.7 mg/dL (2.5-4.5); SODIUM 147.1 mmol/L (137-145); TOTAL PROTEIN 4.8 g/dL (6.3-8.2)
[2017-08-30 08:02] LABS: POTASSIUM 2.9 mmol/L (3.6-5.0)
[2017-08-30] MEDS: FLUCONAZOLE 400 MG/NS RTU 400 MG/200 ML RTUPB IV SCH (09:23)
[2017-08-30] MEDS: VANCOMYCIN HCL 1,000 MG in DEXTROSE 5%-WATER 250 ML IV SCH ×2 (09:23→23:47)
[2017-08-30] MEDS: FAMOTIDINE INJ/PF 20 MG/2 ML SDV IV SCH ×2 (09:24→23:49)
[2017-08-30] MEDS: PREDNISONE 10 MG TABLET PO SCH (09:29)
[2017-08-30] MEDS ORDERED: MAGNESIUM SULFATE/D5W 1 GM/100 ML RTUPB IV ONE (09:30)
[2017-08-30] MEDS: ENOXAPARIN SODIUM INJ 40 MG/0.4 ML DISP.SYRIN SUBCUT SCH (09:33)
[2017-08-30] MEDS: DEXTROSE 5%-WATER 250 ML with PHENYLEPHRINE HCL 40 MG IV PRN ×2 (09:43)
[2017-08-30] MEDS: MIDAZOLAM HCL 50 MG/100 ML RTUINJ IV PRN (09:43)
[2017-08-30] MEDS: DULOXETINE HCL 30 MG CAPSULE.DR PO SCH ×2 (09:44→23:50)
[2017-08-30] MEDS: POTASSI CL 20 MEQ/50 ML RIDER 20 MEQ/50 ML RTUPB IV SCH ×3 (10:06→13:16)
[2017-08-30] MEDS: INSULIN LISPRO 100 UNIT/ML 3 ML VIAL SUBCUT PRN ×2 (10:07→19:01)
--- NOTE | 2017-08-30 10:38 | PDOC PROGRESS REPORT ---
Subjective Progress Note for:: 08/30/17 Reason For Visit: DKA, SEPSIS Intubted sedated Physical Exam Vital Signs: Temp Pulse Resp BP Pulse Ox 97.0 F 95 28 H 105/75 100 08/30/17 08:23 08/30/17 09:04 08/30/17 09:04 08/30/17 07:12 08/30/17 09:04 Intake & Output 08/29/17 08/30/17 08/31/17 06:59 06:59 06:59 Intake Total 3933 5290 Output Total 4186 5795 300 Balance -861 -565 -300 Weight 61.1 kg 58.4 kg Skin exam: PRESENT: other - left segun and left ischial abscess sites: granulating, no odoir, serous drainage Results Laboratory Results: 08/30/17 07:23 08/30/17 07:23 08/29/17 08/30/17 08/30/17 22:40 06:40 07:23 WBC 17.6 H RBC 3.83 L Hgb 9.7 L Hct 29.7 L MCV 78 L MCH 25.2 L MCHC 32.5 RDW 18.2 H Plt Count 341 Seg Neutrophils % 69.5 Lymphocytes % 21.5 Monocytes % 7.3 Eosinophils % 1.2 Basophils % 0.5 Absolute Neutrophils 12.2 H Absolute Lymphocytes 3.8 Absolute Monocytes 1.3 Absolute Eosinophils 0.2 Absolute Basophils 0.1 Carbonic Acid 0.96 L HCO3/H2CO3 Ratio 27:1 ABG pH 7.54 H ABG pCO2 31.9 L ABG pO2 126.1 H ABG HCO3 26.7 H ABG O2 Saturation 98.9 H ABG Base Excess 4.1 FiO2 50% Sodium Potassium 3.4 L Chloride Carbon Dioxide Anion Gap BUN Creatinine Est GFR ( Amer) Est GFR (Non-Af Amer) Glucose Calcium Phosphorus 2.4 L Magnesium 2.1 Total Bilirubin AST ALT Alkaline Phosphatase Total Protein Albumin 08/30/17 07:23 WBC RBC Hgb Hct MCV MCH MCHC RDW Plt Count Seg Neutrophils % Lymphocytes % Monocytes % Eosinophils % Basophils % Absolute Neutrophils Absolute Lymphocytes Absolute Monocytes Absolute Eosinophils Absolute Basophils Carbonic Acid HCO3/H2CO3 Ratio ABG pH ABG pCO2 ABG pO2 ABG HCO3 ABG O2 Saturation ABG Base Excess FiO2 Sodium 147.1 H Potassium 2.9 L* Chloride 112 H Carbon Dioxide 25 Anion Gap 10 BUN 3 L Creatinine 0.64 Est GFR ( Amer) > 60 Est GFR (Non-Af Amer) > 60 Glucose 343 H Calcium 8.7 Phosphorus 2.7 Magnesium 1.8 Total Bilirubin 0.3 AST 10 L ALT 24 Alkaline Phosphatase 237 H Total Protein 4.8 L Albumin 2.0 L 08/25/17 18:30 Groin - Abscess Gram Stain - Final 08/25/17 18:30 Groin - Abscess Wound Culture - Final Enterococcus Faecalis(Group D) Enterococcus Raffinosus Escherichia Coli Corynebacterium Species No Anaerobic Organisms 08/24/17 20:48 Buttocks - Abscess Gram Stain - Final 08/24/17 20:48 Buttocks - Abscess Wound Culture - Final Staphylococcus Epidermidis Corynebacterium Species Bacteroides Fragilis Group 08/24/17 08/24/17 08/25/17 18:00 22:00 05:15 Creatine Kinase 140 117 82 Impressions: Thoracic Spine CT 08/26/17 08:00 IMPRESSION: No acute findings in the thoracic spine. Abdomen/Pelvis CT 08/27/17 00:00 IMPRESSION: 1. Extensive basilar pulmonary changes suggesting pneumonia. 2. No evidence of intra- abdominal or intrapelvic abscess or drainable collection. Postoperative changes as above without evidence of mechanical bowel obstruction. 3. Marked irregular soft tissue loss in the proximal left posterior and medial thigh, incompletely assessed. No suggestion of regional drainable collection as imaged. Chest X-Ray 08/29/17 06:00 IMPRESSION: Interval worsening includes moderate patchy airspace opacities. Assessment & Plan - Diagnosis (1) Abscess or cellulitis of perineum Is this a current diagnosis for this admission?: Yes - Plan Summary Plan Summary: A/ S/P I&D left groin and left ischial abscesses On Zosyn/Flagyl/Diflucan Both wounds are granulating, clean P/ continue wet-to-dry dressing changes of both wounds BID
[2017-08-30] MEDS ORDERED: ALTEPLASE INJ 2 MG VIAL (CATH CLEARANCE) IV ONE (11:00)
--- NOTE | 2017-08-30 11:55 | PDOC PROGRESS REPORT ---
Subjective Progress Note for:: 08/30/17 Subjective:: Patient 51-year-old male who was brought in on 08/24/2017 after he was found down not coherent. Patient was covered by stools, hypoglycemic and hypothermic patient has a colostomy but had no bag in place. Patient has ulcerations in his back and in his left groin and scrotal area that is status post I&D. Patient is currently on broad-spectrum antibiotics for pneumonia and his wounds. Patient is currently intubated. Patient still with persistent leukocytosis however stable at 17,000. Reason For Visit: DKA, SEPSIS Physical Exam Vital Signs: Temp Pulse Resp BP Pulse Ox 37.4 F L 95 28 H 109/80 100 08/30/17 10:00 08/30/17 09:04 08/30/17 10:45 08/30/17 10:12 08/30/17 10:45 Intake & Output 08/29/17 08/30/17 08/31/17 06:59 06:59 06:59 Intake Total 3933 5230 Output Total 4180 5795 800 Balance -247 -565 -800 Weight 61.1 kg 58.4 kg General appearance: PRESENT: no acute distress, thin Head exam: PRESENT: normocephalic Eye exam: PRESENT: EOMI. ABSENT: scleral icterus Ear exam: PRESENT: normal external ear exam Mouth exam: PRESENT: other - ET tube in place Neck exam: ABSENT: carotid bruit, JVD, lymphadenopathy, thyromegaly Respiratory exam: PRESENT: clear to auscultation [place]. ABSENT: rales, rhonchi, wheezes Cardiovascular exam: PRESENT: RRR. ABSENT: diastolic murmur, rubs, systolic murmur Pulses: PRESENT: normal dorsalis pedis pul Vascular exam: PRESENT: normal capillary refill GI/Abdominal exam: PRESENT: normal bowel sounds, soft, other - Colostomy in place. ABSENT: distended, guarding, mass, organolmegaly, rebound, tenderness Rectal exam: PRESENT: deferred Gentrourinary exam: PRESENT: indwelling catheter Extremities exam: PRESENT: full ROM. ABSENT: calf tenderness, clubbing, pedal edema Neurological exam: PRESENT: other - Sedated. ABSENT: motor sensory deficit Psychiatric exam: ABSENT: homicidal ideation, suicidal ideation Skin exam: PRESENT: dry, intact, warm, other - Dressing in left groin clean and dry. ABSENT: cyanosis, rash Results Laboratory Results: 08/30/17 07:23 08/30/17 07:23 08/29/17 08/30/17 08/30/17 22:40 06:40 07:23 WBC 17.6 H RBC 3.83 L Hgb 9.7 L Hct 29.7 L MCV 78 L MCH 25.2 L MCHC 32.5 RDW 18.2 H Plt Count 341 Seg Neutrophils % 69.5 Lymphocytes % 21.5 Monocytes % 7.3 Eosinophils % 1.2 Basophils % 0.5 Absolute Neutrophils 12.2 H Absolute Lymphocytes 3.8 Absolute Monocytes 1.3 Absolute Eosinophils 0.2 Absolute Basophils 0.1 Carbonic Acid 0.96 L HCO3/H2CO3 Ratio 27:1 ABG pH 7.54 H ABG pCO2 31.9 L ABG pO2 126.1 H ABG HCO3 26.7 H ABG O2 Saturation 98.9 H ABG Base Excess 4.1 FiO2 50% Sodium Potassium 3.4 L Chloride Carbon Dioxide Anion Gap BUN Creatinine Est GFR ( Amer) Est GFR (Non-Af Amer) Glucose Calcium Phosphorus 2.4 L Magnesium 2.1 Total Bilirubin AST ALT Alkaline Phosphatase Total Protein Albumin 08/30/17 07:23 WBC RBC Hgb Hct MCV MCH MCHC RDW Plt Count Seg Neutrophils % Lymphocytes % Monocytes % Eosinophils % Basophils % Absolute Neutrophils Absolute Lymphocytes Absolute Monocytes Absolute Eosinophils Absolute Basophils Carbonic Acid HCO3/H2CO3 Ratio ABG pH ABG pCO2 ABG pO2 ABG HCO3 ABG O2 Saturation ABG Base Excess FiO2 Sodium 147.1 H Potassium 2.9 L* Chloride 112 H Carbon Dioxide 25 Anion Gap 10 BUN 3 L Creatinine 0.64 Est GFR ( Amer) > 60 Est GFR (Non-Af Amer) > 60 Glucose 343 H Calcium 8.7 Phosphorus 2.7 Magnesium 1.8 Total Bilirubin 0.3 AST 10 L ALT 24 Alkaline Phosphatase 237 H Total Protein 4.8 L Albumin 2.0 L 08/25/17 18:30 Groin - Abscess Gram Stain - Final 08/25/17 18:30 Groin - Abscess Wound Culture - Final Enterococcus Faecalis(Group D) Enterococcus Raffinosus Escherichia Coli Corynebacterium Species No Anaerobic Organisms 08/24/17 20:48 Buttocks - Abscess Gram Stain - Final 08/24/17 20:48 Buttocks - Abscess Wound Culture - Final Staphylococcus Epidermidis Corynebacterium Species Bacteroides Fragilis Group 08/24/17 08/24/17 08/25/17 18:00 22:00 05:15 Creatine Kinase 140 117 82 Impressions: Thoracic Spine CT 08/26/17 08:00 IMPRESSION: No acute findings in the thoracic spine. Abdomen/Pelvis CT 08/27/17 00:00 IMPRESSION: 1. Extensive basilar pulmonary changes suggesting pneumonia. 2. No evidence of intra- abdominal or intrapelvic abscess or drainable collection. Postoperative changes as above without evidence of mechanical bowel obstruction. 3. Marked irregular soft tissue loss in the proximal left posterior and medial thigh, incompletely assessed. No suggestion of regional drainable collection as imaged. Chest X-Ray 08/29/17 06:00 IMPRESSION: Interval worsening includes moderate patchy airspace opacities. Assessment & Plan - Diagnosis (1) Septic shock Is this a current diagnosis for this admission?: Yes Plan: Patient currently on broad-spectrum antibiotics and levophed. Because of infection is most likely the bilateral pneumonia in the wounds. These have since been I&D. Patient on broad-spectrum antibiotic coverage with vancomycin, cefepime, Flagyl and Diflucan. Had been made to wean Levophed however patient blood pressure dips down. Patient is still having good urine output. Patient with persistent leukocytosis of 17,000 will continue to monitor. (2) Acute respiratory failure with hypoxia Is this a current diagnosis for this admission?: Yes Plan: Patient with bilateral opacities on chest x-ray. This is concerning for possible pneumonia. Patient currently being treated for his pneumonia. Continue supportive care with nebs and serial ABGs along with chest x-rays. Pulmonology is following. (3) Pneumonia Qualifiers: Laterality: bilateral Lung location: unspecified part of lung Is this a current diagnosis for this admission?: Yes Plan: Patient is currently intubated therefore vent associated pneumonia is of concern. Patient is on vancomycin and Zosyn. Will change Zosyn to cefepime. Patient also on Flagyl and Diflucan these may be more beneficial for his wounds. (4) Decubitus ulcer Qualifiers: Pressure ulcer location: sacral region Pressure ulcer stage: stage 3 Qualified Code(s): L89.153 - Pressure ulcer of sacral region, stage 3 Is this a current diagnosis for this admission?: Yes Plan: Continue supportive care. Patient currently on broad-spectrum antibiotics. (5) Groin abscess Is this a current diagnosis for this admission?: Yes Plan: Status post I&D of his left groin abscess. Patient evaluated by surgery today on 08/30/2017. She is status post I&D of left groin and left facial abscesses. Patient on broad-spectrum antibiotics. Dressing in place per surgery both wounds are granulating and clean. Recommend continuing wet-to-dry dressing changes of both wounds twice a day. (6) Hidradenitis suppurativa of anus Is this a current diagnosis for this admission?: Yes Plan: Continue supportive care. (7) Hypoxic brain injury Is this a current diagnosis for this admission?: Yes Plan: Concern for possible anoxic brain injury as patient was found down for an unknown period of time. Patient paralytic was discontinued. Will try to limit the use of sedatives. Will monitor for responsiveness. Patient may require CT imaging of the head. (8) Severe protein-calorie malnutrition Is this a current diagnosis for this admission?: Yes Plan: Continue tube feedings. (9) Crohns disease Qualifiers: Gastrointestinal tract location: unspecified location Is this a current diagnosis for this admission?: Yes Plan: Patient with diverting colostomy. Patient on low-dose steroids. Patient on broad-spectrum antibiotics. Patient does not appear to be having any diarrhea. Will check CRP although this may be elevated due to patient's pneumonia and wounds. Patient may require higher dose of steroids. (10) Diabetic keto-acidosis Qualifiers: Diabetes mellitus type: type 1 Diabetes mellitus complication detail: without coma Qualified Code(s): E10.10 - Type 1 diabetes mellitus with ketoacidosis without coma Is this a current diagnosis for this admission?: Yes (11) Hypokalemia Is this a current diagnosis for this admission?: Yes Plan: Potassium is 2.9. Will give patient 60 mEq of potassium and follow-up in the morning. (12) Hypernatremia Is this a current diagnosis for this admission?: Yes Plan: Hyponatremia secondary to IV fluids. Patient placed on half-normal saline going at 100 cc an hour. Will monitor electrolytes. - Time Time Spent with patient: 25-34 minutes Anticipated discharge: SNF - Inpatient Certification Medical Necessity: Need For IV Fluids - Patient is intubated sedated and on pressor support for hypotension., Need For Continuous Telemetry Monitoring, Need for Neurological Checks, Need for IV Antibiotics
[2017-08-30] MEDS: 1/2 NORMAL SALINE 1,000 ML IV PRN (12:19)
[2017-08-30] MEDS: CEFEPIME HCL 2 GM in NORMAL SALINE 100 ML IV SCH ×2 (13:42→23:48)
[2017-08-30] MEDS: ACETAMINOPHEN 325 MG TABLET NG PRN (13:43)
[2017-08-30] MEDS ORDERED: CEFEPIME 2 GM/D5W RTU 2 GM/50 ML RTUPB IV SCH (14:00)
[2017-08-30 15:05] LABS: PHOSPHORUS 2.3 mg/dL (2.5-4.5); POTASSIUM 3.8 mmol/L (3.6-5.0)
[2017-08-30 19:29] LABS: PHOSPHORUS 2.6 mg/dL (2.5-4.5)
--- NOTE | 2017-08-30 21:16 | PDOC PROGRESS REPORT ---
Subjective Progress Note for:: 08/29/17 Subjective:: intubated sedated Reason For Visit: DKA, SEPSIS Physical Exam Vital Signs: Temp Pulse Resp BP Pulse Ox 97.0 F 95 28 H 105/75 100 08/30/17 08:23 08/30/17 09:04 08/30/17 09:04 08/30/17 07:12 08/30/17 09:04 Intake & Output 08/29/17 08/30/17 08/31/17 06:59 06:59 06:59 Intake Total 3933 5230 Output Total 4180 5795 300 Balance -247 -565 -300 Weight 61.1 kg 58.4 kg General appearance: PRESENT: no acute distress, disheveled, thin, well- developed. ABSENT: cooperative Head exam: PRESENT: atraumatic, normocephalic Eye exam: PRESENT: conjunctiva pale. ABSENT: nystagmus, periorbital swelling, scleral icterus Mouth exam: PRESENT: dry mucosa, neck supple, tongue midline, other - ET tube Neck exam: ABSENT: carotid bruit, JVD, lymphadenopathy, thyromegaly, tracheal deviation, tracheostomy Respiratory exam: PRESENT: rales, rhonchi, symmetrical. ABSENT: prolonged expiratory phas, retraction, stridor, tachypnea, unlabored, wheezes Cardiovascular exam: PRESENT: RRR, +S1, +S2, tachycardia Pulses: PRESENT: normal radial pulses GI/Abdominal exam: PRESENT: diminished bowel sounds, soft Gentrourinary exam: PRESENT: indwelling catheter Extremities exam: ABSENT: calf tenderness, clubbing Musculoskeletal exam: ABSENT: deformity, dislocation Neurological exam: ABSENT: alert, awake, oriented to person Skin exam: PRESENT: dry, mottled - cold, other Results Laboratory Results: 08/30/17 07:23 08/30/17 07:23 08/29/17 08/29/17 08/30/17 09:20 22:40 06:40 WBC RBC Hgb Hct MCV MCH MCHC RDW Plt Count Seg Neutrophils % Lymphocytes % Monocytes % Eosinophils % Basophils % Absolute Neutrophils Absolute Lymphocytes Absolute Monocytes Absolute Eosinophils Absolute Basophils Carbonic Acid 0.96 L HCO3/H2CO3 Ratio 27:1 ABG pH 7.54 H ABG pCO2 31.9 L ABG pO2 126.1 H ABG HCO3 26.7 H ABG O2 Saturation 98.9 H ABG Base Excess 4.1 FiO2 50% Sodium Potassium 3.4 L Chloride Carbon Dioxide Anion Gap BUN Creatinine Est GFR ( Amer) Est GFR (Non-Af Amer) Glucose Calcium Phosphorus 2.9 2.4 L Magnesium 1.5 L 2.1 Total Bilirubin AST ALT Alkaline Phosphatase Total Protein Albumin 08/30/17 08/30/17 07:23 07:23 WBC 17.6 H RBC 3.83 L Hgb 9.7 L Hct 29.7 L MCV 78 L MCH 25.2 L MCHC 32.5 RDW 18.2 H Plt Count 341 Seg Neutrophils % 69.5 Lymphocytes % 21.5 Monocytes % 7.3 Eosinophils % 1.2 Basophils % 0.5 Absolute Neutrophils 12.2 H Absolute Lymphocytes 3.8 Absolute Monocytes 1.3 Absolute Eosinophils 0.2 Absolute Basophils 0.1 Carbonic Acid HCO3/H2CO3 Ratio ABG pH ABG pCO2 ABG pO2 ABG HCO3 ABG O2 Saturation ABG Base Excess FiO2 Sodium 147.1 H Potassium 2.9 L* Chloride 112 H Carbon Dioxide 25 Anion Gap 10 BUN 3 L Creatinine 0.64 Est GFR ( Amer) > 60 Est GFR (Non-Af Amer) > 60 Glucose 343 H Calcium 8.7 Phosphorus 2.7 Magnesium 1.8 Total Bilirubin 0.3 AST 10 L ALT 24 Alkaline Phosphatase 237 H Total Protein 4.8 L Albumin 2.0 L 08/25/17 18:30 Groin - Abscess Gram Stain - Final 08/25/17 18:30 Groin - Abscess Wound Culture - Final Enterococcus Faecalis(Group D) Enterococcus Raffinosus Escherichia Coli Corynebacterium Species No Anaerobic Organisms 08/24/17 20:48 Buttocks - Abscess Gram Stain - Final 08/24/17 20:48 Buttocks - Abscess Wound Culture - Final Staphylococcus Epidermidis Corynebacterium Species Bacteroides Fragilis Group 08/24/17 08/24/17 08/25/17 18:00 22:00 05:15 Creatine Kinase 140 117 82 Impressions: Thoracic Spine CT 08/26/17 08:00 IMPRESSION: No acute findings in the thoracic spine. Abdomen/Pelvis CT 08/27/17 00:00 IMPRESSION: 1. Extensive basilar pulmonary changes suggesting pneumonia. 2. No evidence of intra- abdominal or intrapelvic abscess or drainable collection. Postoperative changes as above without evidence of mechanical bowel obstruction. 3. Marked irregular soft tissue loss in the proximal left posterior and medial thigh, incompletely assessed. No suggestion of regional drainable collection as imaged. Chest X-Ray 08/29/17 06:00 IMPRESSION: Interval worsening includes moderate patchy airspace opacities. Assessment & Plan - Diagnosis (1) Abscess or cellulitis of perineum Is this a current diagnosis for this admission?: Yes Plan: patient scheduled for 2nd surgical debredment (2) Acute respiratory failure with hypoxia Is this a current diagnosis for this admission?: Yes Plan: hypoxic hypercapnic adjust ventilation will need neuromuscular bloc as patient fightind vent despite propofol,opiates and veresed drip (3) Diabetic keto-acidosis Qualifiers: Diabetes mellitus type: type 1 Diabetes mellitus complication detail: without coma Qualified Code(s): E10.10 - Type 1 diabetes mellitus with ketoacidosis without coma Is this a current diagnosis for this admission?: Yes Plan: dibetix ketotic and acidotic insulin drip until ketones are clear (4) Septic shock Is this a current diagnosis for this admission?: Yes Plan: vol repletion LR and vaspressor 08/25/17 18:30 Gram Stain - Preliminary Groin - Abscess Wound Culture - Preliminary Corynebacterium Species Gram Positive Cocci In Pairs Gram Negative Rods 08/25/17 09:25 Gram Stain - Final Tracheal Aspirate Sputum Culture - Final Mrsa (Meth Resis Staph Aureus) C.albicans/C.dubliniensis Normal [place] Absent 08/24/17 20:52 Gram Stain - Final Buttocks - Abscess Wound Culture - Final Bacteroides Fragilis Group Corynebacterium Striatum Staphylococcus Epidermidis 08/24/17 20:48 Gram Stain - Final Buttocks - Abscess Wound Culture - Preliminary Bacteroides Fragilis Group Corynebacterium Species Gram Positive Cocci Clusters 08/24/17 14:59 Gram Stain - Final Perineum Wound Culture - Preliminary Corynebacterium Species Gram Positive Cocci In Pairs Bacteroides Fragilis Group 08/24/17 14:59 Blood Culture - Preliminary Blood NO GROWTH 4 DAYS 08/24/17 14:59 Blood Culture - Final Blood Corynebacterium Striatum (5) Malnutrition of moderate degree Is this a current diagnosis for this admission?: Yes Plan: enteral nutrition as tolerated (6) Tobacco abuse Is this a current diagnosis for this admission?: Yes Plan: transdermal nicotene - Time Total Critical Time (Minutes): 45
--- NOTE | 2017-08-30 21:21 | PDOC PROGRESS REPORT ---
Subjective Progress Note for:: 08/30/17 Subjective:: intubated sedated Reason For Visit: DKA, SEPSIS Physical Exam Vital Signs: Temp Pulse Resp BP Pulse Ox 97.0 F 95 28 H 105/75 100 08/30/17 08:23 08/30/17 09:04 08/30/17 09:04 08/30/17 07:12 08/30/17 09:04 Intake & Output 08/29/17 08/30/17 08/31/17 06:59 06:59 06:59 Intake Total 3933 5230 Output Total 4180 5795 300 Balance -209 -565 -300 Weight 61.1 kg 58.4 kg General appearance: PRESENT: no acute distress, disheveled, thin, well- developed. ABSENT: cooperative Head exam: PRESENT: atraumatic, normocephalic Eye exam: PRESENT: conjunctiva pale. ABSENT: nystagmus, periorbital swelling, scleral icterus Mouth exam: PRESENT: dry mucosa, neck supple, tongue midline, other - ET tube Neck exam: PRESENT: tracheal deviation, tracheostomy. ABSENT: carotid bruit, JVD, lymphadenopathy, thyromegaly Respiratory exam: PRESENT: crackles, rhonchi, symmetrical, unlabored, wheezes. ABSENT: decreased breath sounds, prolonged expiratory phas, retraction, stridor , tachypnea Cardiovascular exam: PRESENT: RRR, +S1, +S2, tachycardia Pulses: PRESENT: normal radial pulses GI/Abdominal exam: PRESENT: diminished bowel sounds, soft Extremities exam: ABSENT: calf tenderness, clubbing Musculoskeletal exam: ABSENT: deformity, dislocation Neurological exam: ABSENT: alert, awake, oriented to person Skin exam: PRESENT: dry, warm, other - inguinal;perineal;gluteal abcess Results Laboratory Results: 08/30/17 07:23 08/30/17 07:23 08/29/17 08/29/17 08/30/17 09:20 22:40 06:40 WBC RBC Hgb Hct MCV MCH MCHC RDW Plt Count Seg Neutrophils % Lymphocytes % Monocytes % Eosinophils % Basophils % Absolute Neutrophils Absolute Lymphocytes Absolute Monocytes Absolute Eosinophils Absolute Basophils Carbonic Acid 0.96 L HCO3/H2CO3 Ratio 27:1 ABG pH 7.54 H ABG pCO2 31.9 L ABG pO2 126.1 H ABG HCO3 26.7 H ABG O2 Saturation 98.9 H ABG Base Excess 4.1 FiO2 50% Sodium Potassium 3.4 L Chloride Carbon Dioxide Anion Gap BUN Creatinine Est GFR ( Amer) Est GFR (Non-Af Amer) Glucose Calcium Phosphorus 2.9 2.4 L Magnesium 1.5 L 2.1 Total Bilirubin AST ALT Alkaline Phosphatase Total Protein Albumin 08/30/17 08/30/17 07:23 07:23 WBC 17.6 H RBC 3.83 L Hgb 9.7 L Hct 29.7 L MCV 78 L MCH 25.2 L MCHC 32.5 RDW 18.2 H Plt Count 341 Seg Neutrophils % 69.5 Lymphocytes % 21.5 Monocytes % 7.3 Eosinophils % 1.2 Basophils % 0.5 Absolute Neutrophils 12.2 H Absolute Lymphocytes 3.8 Absolute Monocytes 1.3 Absolute Eosinophils 0.2 Absolute Basophils 0.1 Carbonic Acid HCO3/H2CO3 Ratio ABG pH ABG pCO2 ABG pO2 ABG HCO3 ABG O2 Saturation ABG Base Excess FiO2 Sodium 147.1 H Potassium 2.9 L* Chloride 112 H Carbon Dioxide 25 Anion Gap 10 BUN 3 L Creatinine 0.64 Est GFR ( Amer) > 60 Est GFR (Non-Af Amer) > 60 Glucose 343 H Calcium 8.7 Phosphorus 2.7 Magnesium 1.8 Total Bilirubin 0.3 AST 10 L ALT 24 Alkaline Phosphatase 237 H Total Protein 4.8 L Albumin 2.0 L 08/25/17 18:30 Groin - Abscess Gram Stain - Final 08/25/17 18:30 Groin - Abscess Wound Culture - Final Enterococcus Faecalis(Group D) Enterococcus Raffinosus Escherichia Coli Corynebacterium Species No Anaerobic Organisms 08/24/17 20:48 Buttocks - Abscess Gram Stain - Final 08/24/17 20:48 Buttocks - Abscess Wound Culture - Final Staphylococcus Epidermidis Corynebacterium Species Bacteroides Fragilis Group 08/24/17 08/24/17 08/25/17 18:00 22:00 05:15 Creatine Kinase 140 117 82 Impressions: Thoracic Spine CT 08/26/17 08:00 IMPRESSION: No acute findings in the thoracic spine. Abdomen/Pelvis CT 08/27/17 00:00 IMPRESSION: 1. Extensive basilar pulmonary changes suggesting pneumonia. 2. No evidence of intra- abdominal or intrapelvic abscess or drainable collection. Postoperative changes as above without evidence of mechanical bowel obstruction. 3. Marked irregular soft tissue loss in the proximal left posterior and medial thigh, incompletely assessed. No suggestion of regional drainable collection as imaged. Chest X-Ray 08/29/17 06:00 IMPRESSION: Interval worsening includes moderate patchy airspace opacities. Assessment & Plan - Diagnosis (1) Abscess or cellulitis of perineum Is this a current diagnosis for this admission?: Yes Plan: patient scheduled for 2nd surgical debredment (2) Acute respiratory failure with hypoxia Is this a current diagnosis for this admission?: Yes Plan: hypoxic hypercapnic adjust ventilation will need neuromuscular bloc as patient fightind vent despite propofol,opiates and veresed drip (3) Diabetic keto-acidosis Qualifiers: Diabetes mellitus type: type 1 Diabetes mellitus complication detail: without coma Qualified Code(s): E10.10 - Type 1 diabetes mellitus with ketoacidosis without coma Is this a current diagnosis for this admission?: Yes Plan: dibetix ketotic and acidotic insulin drip until ketones are clear (4) Septic shock Is this a current diagnosis for this admission?: Yes Plan: vol repletion LR and vaspressor 08/25/17 18:30 Gram Stain - Preliminary Groin - Abscess Wound Culture - Preliminary Corynebacterium Species Gram Positive Cocci In Pairs Gram Negative Rods 08/25/17 09:25 Gram Stain - Final Tracheal Aspirate Sputum Culture - Final Mrsa (Meth Resis Staph Aureus) C.albicans/C.dubliniensis Normal [place] Absent 08/24/17 20:52 Gram Stain - Final Buttocks - Abscess Wound Culture - Final Bacteroides Fragilis Group Corynebacterium Striatum Staphylococcus Epidermidis 08/24/17 20:48 Gram Stain - Final Buttocks - Abscess Wound Culture - Preliminary Bacteroides Fragilis Group Corynebacterium Species Gram Positive Cocci Clusters 08/24/17 14:59 Gram Stain - Final Perineum Wound Culture - Preliminary Corynebacterium Species Gram Positive Cocci In Pairs Bacteroides Fragilis Group 08/24/17 14:59 Blood Culture - Preliminary Blood NO GROWTH 4 DAYS 08/24/17 14:59 Blood Culture - Final Blood Corynebacterium Striatum (5) Malnutrition of moderate degree Is this a current diagnosis for this admission?: Yes Plan: enteral nutrition as tolerated (6) Tobacco abuse Is this a current diagnosis for this admission?: Yes Plan: transdermal nicotene - Time Total Critical Time (Minutes): 45
[2017-08-30 23:35] LABS: PHOSPHORUS 2.2 mg/dL (2.5-4.5)
[2017-08-31] MEDS: 1/2 NORMAL SALINE 1,000 ML IV PRN (00:04)
[2017-08-31] MEDS: IPRATROPIUM/ALBUTEROL 0.5-2.5 MG/3 ML AMPUL NEB SCH ×7 (00:36→23:49)
[2017-08-31] MEDS: HYDROMORPHONE HCL INJ/PF 2 MG/ML AMPULE IV SCH ×5 (03:29→17:46)
[2017-08-31] MEDS: MIDAZOLAM HCL 50 MG/100 ML RTUINJ IV PRN (04:45)
[2017-08-31] MEDS: CEFEPIME HCL 2 GM in NORMAL SALINE 100 ML IV SCH ×3 (06:37→22:24)
[2017-08-31 06:55] LABS: ALANINE AMINOTRANSFERASE 17 U/L (21-72); ALKALINE PHOSPHATASE 297 U/L (38-126); ANION GAP 9 (5-19); ASPARTATE AMINO TRANSFERASE 19 U/L (17-59); BILIRUBIN,DIRECT 0.4 mg/dL (0.0-0.4); BILIRUBIN,TOTAL 0.4 mg/dL (0.2-1.3); BLOOD UREA NITROGEN 5 mg/dL (7-20); CALCIUM 7.8 mg/dL (8.4-10.2); CARBON DIOXIDE 25 mmol/L (22-30); CHLORIDE 107 mmol/L (98-107); PHOSPHORUS 2.2 mg/dL (2.5-4.5); POTASSIUM 3.4 mmol/L (3.6-5.0); SODIUM 140.6 mmol/L (137-145); TOTAL PROTEIN 4.8 g/dL (6.3-8.2)
[2017-08-31 07:00] LABS: GLUCOSE 396 mg/dL (75-110)
[2017-08-31 07:14] LABS: ARTERIAL BLOOD BASE EXCESS 3.2 mmol/L; ARTERIAL BLOOD H2CO3 0.88 mmol/L (1.05-1.35); ARTERIAL BLOOD HCO3 25.2 mmol/L (20-26); ARTERIAL BLOOD O2 SATURATION 98.9 % (94-98); ARTERIAL BLOOD PCO2 29.3 mmHg (35-45); ARTERIAL BLOOD PH 7.55 (7.35-7.45); ARTERIAL BLOOD PO2 123.3 mmHg (80-100); ARTERIAL BLOOD TOTAL CO2 26.1 mmol/L (23-27)
[2017-08-31 07:17] LABS: ARTERIAL BLOOD FIO2 50%
[2017-08-31 07:20] LABS: ABSOLUTE BASOPHILS # (AUTO) 0.2 10^3/uL (0.0-0.2); ABSOLUTE EOSINOPHILS # (AUTO) 0.4 10^3/uL (0.0-0.6); ABSOLUTE LYMPHOCYTES (AUTO) 4.2 10^3/uL (0.5-4.7); ABSOLUTE MONOCYTES (AUTO) 1.7 10^3/uL (0.1-1.4); ABSOLUTE NEUT (AUTO) 12.5 10^3/uL (1.7-8.2); BASOPHILS % (AUTO) 1.2 % (0-2); EOSINOPHILS % (AUTO) 1.9 % (0-6); HEMATOCRIT 26.4 % (37.9-51.0); HEMOGLOBIN 8.5 g/dL (13.5-17.0); LYMPHOCYTES % (AUTO) 22.3 % (13-45); MEAN CORPUSCULAR HEMOGLOBIN 24.9 pg (27.0-33.4); MEAN CORPUSCULAR HGB CONC 32.3 g/dL (32.0-36.0); MEAN CORPUSCULAR VOLUME 77 fl (80-97); MONOCYTES % (AUTO) 8.9 % (3-13); PLATELET COUNT 297 10^3/uL (150-450); RED BLOOD COUNT 3.41 10^6/uL (4.35-5.55); SEGMENTED NEUTROPHILS % (AUTO) 65.7 % (42-78); TOTAL CELLS COUNTED % (AUTO) 100 %
--- NOTE | 2017-08-31 07:31 | RADIOLOGY REPORT (SQ) ---
EXAM DESCRIPTION: CHEST SINGLE VIEW CLINICAL HISTORY: pna/resp fail COMPARISON: 08/29/2017 FINDINGS: Single frontal view of the chest. Endotracheal tube with tip 4 cm above the [place]. Left IJ central venous catheter. NG tube with tip below the diaphragm. Postoperative change in the epigastric region. Cardiomediastinal silhouette is stable. Improved aeration of the lung bases bilaterally with persistent patchy opacities. No pneumothorax or large effusion. No acute osseous abnormalities identified. Upper abdominal soft tissues are unremarkable. IMPRESSION: 1. Mildly improved aeration the lung bases with persistent bibasilar airspace opacity.
[2017-08-31] MEDS: FAMOTIDINE INJ/PF 20 MG/2 ML SDV IV SCH ×2 (09:30→22:25)
[2017-08-31] MEDS: FLUCONAZOLE 400 MG/NS RTU 400 MG/200 ML RTUPB IV SCH (09:31)
[2017-08-31] MEDS: METRONIDAZOLE 500 MG/NS RTU 100 ML IV SCH ×3 (09:32→18:39)
[2017-08-31] MEDS: DULOXETINE HCL 30 MG CAPSULE.DR PO SCH ×2 (09:33→22:25)
[2017-08-31] MEDS: ENOXAPARIN SODIUM INJ 40 MG/0.4 ML DISP.SYRIN SUBCUT SCH (09:41)
[2017-08-31] MEDS: POTASSIUM CHLORIDE 20 MEQ/50 ML RTU IV SCH ×2 (09:41→12:35)
[2017-08-31] MEDS: PREDNISONE 10 MG TABLET PO SCH (09:42)
[2017-08-31 09:50] LABS: C-REACTIVE PROTEIN 59.6 mg/L (<10.0)
[2017-08-31] MEDS: VANCOMYCIN HCL 750 MG in DEXTROSE 5%-WATER 250 ML IV SCH ×2 (10:24→18:39)
[2017-08-31] MEDS ORDERED: SODIUM PHOS,M-BASIC-D-BASIC 15 MMOL in NORMAL SALINE 250 ML IV ONE (10:30)
--- NOTE | 2017-08-31 11:10 | PDOC PROGRESS REPORT ---
Subjective Progress Note for:: 08/31/17 Subjective:: intubated, sedated Reason For Visit: DKA, SEPSIS Physical Exam Vital Signs: Temp Pulse Resp BP Pulse Ox 98.6 F 118 H 22 H 118/78 99 08/31/17 08:00 08/31/17 10:00 08/31/17 10:30 08/31/17 09:12 08/31/17 10:30 Intake & Output 08/30/17 08/31/17 09/01/17 06:59 06:59 06:59 Intake Total 5230 3660 Output Total 5795 3210 300 Balance -565 450 -300 Weight 58.4 kg 59.2 kg General appearance: PRESENT: no acute distress Skin exam: PRESENT: other - left groin and left ischial abscess sites are clean and granuklating, still significant induration around the edges Results Laboratory Results: 08/31/17 05:38 08/31/17 05:38 08/30/17 08/30/17 08/30/17 14:35 18:50 23:00 WBC RBC Hgb Hct MCV MCH MCHC RDW Plt Count Seg Neutrophils % Lymphocytes % Monocytes % Eosinophils % Basophils % Absolute Neutrophils Absolute Lymphocytes Absolute Monocytes Absolute Eosinophils Absolute Basophils Carbonic Acid HCO3/H2CO3 Ratio ABG pH ABG pCO2 ABG pO2 ABG HCO3 ABG O2 Saturation ABG Base Excess FiO2 Sodium Potassium 3.8 Chloride Carbon Dioxide Anion Gap BUN Creatinine Est GFR ( Amer) Est GFR (Non-Af Amer) Glucose 349 H Calcium Phosphorus 2.3 L 2.6 2.2 L Magnesium 2.0 1.9 1.8 Total Bilirubin AST ALT Alkaline Phosphatase C-Reactive Protein Total Protein Albumin 08/31/17 08/31/17 08/31/17 05:38 05:38 06:32 WBC 19.0 H RBC 3.41 L Hgb 8.5 L Hct 26.4 L MCV 77 L MCH 24.9 L MCHC 32.3 RDW 18.0 H Plt Count 297 Seg Neutrophils % 65.7 Lymphocytes % 22.3 Monocytes % 8.9 Eosinophils % 1.9 Basophils % 1.2 Absolute Neutrophils 12.5 H Absolute Lymphocytes 4.2 Absolute Monocytes 1.7 H Absolute Eosinophils 0.4 Absolute Basophils 0.2 Carbonic Acid 0.88 L HCO3/H2CO3 Ratio 28:1 ABG pH 7.55 H ABG pCO2 29.3 L ABG pO2 123.3 H ABG HCO3 25.2 ABG O2 Saturation 98.9 H ABG Base Excess 3.2 FiO2 50% Sodium 140.6 Potassium 3.4 L Chloride 107 Carbon Dioxide 25 Anion Gap 9 BUN 5 L Creatinine 0.48 L Est GFR ( Amer) > 60 Est GFR (Non-Af Amer) > 60 Glucose 396 H Calcium 7.8 L Phosphorus 2.2 L Magnesium 1.7 Total Bilirubin 0.4 AST 19 ALT 17 L Alkaline Phosphatase 297 H C-Reactive Protein 59.6 H Total Protein 4.8 L Albumin 2.0 L 08/25/17 18:30 Groin - Abscess Gram Stain - Final 08/25/17 18:30 Groin - Abscess Wound Culture - Final Enterococcus Faecalis(Group D) Enterococcus Raffinosus Escherichia Coli Corynebacterium Species No Anaerobic Organisms 08/24/17 08/24/17 08/25/17 18:00 22:00 05:15 Creatine Kinase 140 117 82 Impressions: Thoracic Spine CT 08/26/17 08:00 IMPRESSION: No acute findings in the thoracic spine. Abdomen/Pelvis CT 08/27/17 00:00 IMPRESSION: 1. Extensive basilar pulmonary changes suggesting pneumonia. 2. No evidence of intra- abdominal or intrapelvic abscess or drainable collection. Postoperative changes as above without evidence of mechanical bowel obstruction. 3. Marked irregular soft tissue loss in the proximal left posterior and medial thigh, incompletely assessed. No suggestion of regional drainable collection as imaged. Chest X-Ray 08/31/17 06:00 IMPRESSION: 1. Mildly improved aeration the lung bases with persistent bibasilar airspace opacity. Assessment & Plan - Diagnosis (1) Abscess or cellulitis of perineum Is this a current diagnosis for this admission?: Yes - Plan Summary Plan Summary: A/ S/P I&D hydroadenitis abscess left groin and left ischial area Wounds clean, granulatging P/ continue uci-gr-pcf-dressing changes Use Dakin's solution x 3 days, then resume NS
[2017-08-31 11:21] LABS: PHOSPHORUS 2.1 mg/dL (2.5-4.5)
[2017-08-31] MEDS ORDERED: MAGNESIUM SULFATE/D5W 1 GM/100 ML RTUPB IV ONE (12:30)
[2017-08-31] MEDS: POTASSI CL 20 MEQ/50 ML RIDER 20 MEQ/50 ML RTUPB IV SCH ×2 (12:37→14:58)
[2017-08-31] MEDS: INSULIN LISPRO 100 UNIT/ML 3 ML VIAL SUBCUT PRN ×2 (12:50→18:40)
[2017-08-31 13:48] LABS: ARTERIAL BLOOD BASE EXCESS 3.6 mmol/L; ARTERIAL BLOOD H2CO3 1.11 mmol/L (1.05-1.35); ARTERIAL BLOOD HCO3 27.2 mmol/L (20-26); ARTERIAL BLOOD O2 SATURATION 98.8 % (94-98); ARTERIAL BLOOD PCO2 36.9 mmHg (35-45); ARTERIAL BLOOD PH 7.49 (7.35-7.45); ARTERIAL BLOOD PO2 128.2 mmHg (80-100); ARTERIAL BLOOD TOTAL CO2 28.4 mmol/L (23-27)
[2017-08-31 13:52] LABS: ARTERIAL BLOOD FIO2 50%
[2017-08-31] MEDS: POTASSI CL 40 MEQ/NS 1L 1,000 ML IV PRN (14:57)
[2017-08-31 16:20] LABS: ARTERIAL BLOOD BASE EXCESS 7.5 mmol/L; ARTERIAL BLOOD FIO2 40%; ARTERIAL BLOOD H2CO3 1.13 mmol/L (1.05-1.35); ARTERIAL BLOOD HCO3 31.1 mmol/L (20-26); ARTERIAL BLOOD O2 SATURATION 94.3 % (94-98); ARTERIAL BLOOD PCO2 37.7 mmHg (35-45); ARTERIAL BLOOD PH 7.53 (7.35-7.45); ARTERIAL BLOOD PO2 62.4 mmHg (80-100); ARTERIAL BLOOD TOTAL CO2 32.2 mmol/L (23-27)
[2017-08-31 16:42] LABS: ANION GAP 9 (5-19); BLOOD UREA NITROGEN 6 mg/dL (7-20); CALCIUM 8.1 mg/dL (8.4-10.2); CARBON DIOXIDE 29 mmol/L (22-30); CHLORIDE 107 mmol/L (98-107); GLUCOSE 318 mg/dL (75-110); POTASSIUM 3.8 mmol/L (3.6-5.0); SODIUM 144.5 mmol/L (137-145)
[2017-08-31] MEDS ORDERED: RINGERS SOLUTION,LACTATED 1,000 ML IV PRN (18:11)
[2017-08-31] MEDS: SODIUM HYPOCHLORITE 0.25% SOLN 473 ML BOTTLE TP SCH (18:53)
[2017-08-31 19:14] LABS: PHOSPHORUS 3.1 mg/dL (2.5-4.5)
--- NOTE | 2017-08-31 21:56 | PDOC PROGRESS REPORT ---
Subjective Progress Note for:: 08/31/17 Subjective:: Patient 51-year-old male who was brought in on 08/24/2017 after he was found down not coherent. Patient was covered by stools, hypoglycemic and hypothermic patient has a colostomy but had no bag in place. Patient has ulcerations in his back and in his left groin and scrotal area that is status post I&D. Patient is currently on broad-spectrum antibiotics for pneumonia and his wounds. Patient is currently intubated. Patient with family at bedside. Patient is awake and looking around. Patient currently off pressors. Sedation gradually being weaned. Reason For Visit: DKA, SEPSIS Physical Exam Vital Signs: Temp Pulse Resp BP Pulse Ox 98.8 F 110 H 16 129/82 H 94 08/31/17 20:00 08/31/17 18:00 08/31/17 18:07 08/31/17 18:07 08/31/17 18:07 Intake & Output 08/30/17 08/31/17 09/01/17 06:59 06:59 06:59 Intake Total 5230 3660 2624 Output Total 5795 3210 3410 Balance -565 450 -786 Weight 58.4 kg 59.2 kg General appearance: PRESENT: no acute distress, well-developed, well-nourished Head exam: PRESENT: normocephalic Eye exam: PRESENT: EOMI. ABSENT: scleral icterus Ear exam: PRESENT: normal external ear exam Mouth exam: PRESENT: moist, other - ET tube in place Neck exam: ABSENT: carotid bruit, JVD, lymphadenopathy, thyromegaly Respiratory exam: PRESENT: clear to auscultation da[place]. ABSENT: rales, rhonchi, wheezes Cardiovascular exam: PRESENT: RRR. ABSENT: diastolic murmur, rubs, systolic murmur Pulses: PRESENT: normal dorsalis pedis pul Vascular exam: PRESENT: normal capillary refill GI/Abdominal exam: PRESENT: normal bowel sounds, soft, other - Colostomy in place. ABSENT: distended, guarding, mass, organolmegaly, rebound, tenderness Rectal exam: PRESENT: deferred Gentrourinary exam: PRESENT: indwelling catheter Extremities exam: PRESENT: full ROM, other - Edema of hands and feet. ABSENT: calf tenderness, clubbing, pedal edema Neurological exam: PRESENT: awake. ABSENT: motor sensory deficit Psychiatric exam: ABSENT: homicidal ideation, suicidal ideation Skin exam: PRESENT: dry, intact, warm, other - Dressing on left inner thigh. ABSENT: cyanosis, rash Results Laboratory Results: 08/31/17 05:38 08/31/17 15:31 08/30/17 08/31/17 08/31/17 23:00 05:38 05:38 WBC 19.0 H RBC 3.41 L Hgb 8.5 L Hct 26.4 L MCV 77 L MCH 24.9 L MCHC 32.3 RDW 18.0 H Plt Count 297 Seg Neutrophils % 65.7 Lymphocytes % 22.3 Monocytes % 8.9 Eosinophils % 1.9 Basophils % 1.2 Absolute Neutrophils 12.5 H Absolute Lymphocytes 4.2 Absolute Monocytes 1.7 H Absolute Eosinophils 0.4 Absolute Basophils 0.2 Carbonic Acid HCO3/H2CO3 Ratio ABG pH ABG pCO2 ABG pO2 ABG HCO3 ABG O2 Saturation ABG Base Excess FiO2 Sodium 140.6 Potassium 3.4 L Chloride 107 Carbon Dioxide 25 Anion Gap 9 BUN 5 L Creatinine 0.48 L Est GFR ( Amer) > 60 Est GFR (Non-Af Amer) > 60 Glucose 396 H Calcium 7.8 L Phosphorus 2.2 L 2.2 L Magnesium 1.8 1.7 Total Bilirubin 0.4 AST 19 ALT 17 L Alkaline Phosphatase 297 H C-Reactive Protein 59.6 H Total Protein 4.8 L Albumin 2.0 L 08/31/17 08/31/17 08/31/17 06:32 10:11 13:15 WBC RBC Hgb Hct MCV MCH MCHC RDW Plt Count Seg Neutrophils % Lymphocytes % Monocytes % Eosinophils % Basophils % Absolute Neutrophils Absolute Lymphocytes Absolute Monocytes Absolute Eosinophils Absolute Basophils Carbonic Acid 0.88 L 1.11 HCO3/H2CO3 Ratio 28:1 24:1 ABG pH 7.55 H 7.49 H ABG pCO2 29.3 L 36.9 ABG pO2 123.3 H 128.2 H ABG HCO3 25.2 27.2 H ABG O2 Saturation 98.9 H 98.8 H ABG Base Excess 3.2 3.6 FiO2 50% 50% Sodium Potassium Chloride Carbon Dioxide Anion Gap BUN Creatinine Est GFR ( Amer) Est GFR (Non-Af Amer) Glucose Calcium Phosphorus 2.1 L Magnesium 1.8 Total Bilirubin AST ALT Alkaline Phosphatase C-Reactive Protein Total Protein Albumin 08/31/1718 18 15:31 15:31 15:31 WBC RBC Hgb Hct MCV MCH MCHC RDW Plt Count Seg Neutrophils % Lymphocytes % Monocytes % Eosinophils % Basophils % Absolute Neutrophils Absolute Lymphocytes Absolute Monocytes Absolute Eosinophils Absolute Basophils Carbonic Acid 1.13 HCO3/H2CO3 Ratio 27:1 ABG pH 7.53 H ABG pCO2 37.7 ABG pO2 62.4 L ABG HCO3 31.1 H ABG O2 Saturation 94.3 ABG Base Excess 7.5 FiO2 40% Sodium 144.5 Potassium 3.8 Chloride 107 Carbon Dioxide 29 Anion Gap 9 BUN 6 L Creatinine 0.52 Est GFR ( Amer) > 60 Est GFR (Non-Af Amer) > 60 Glucose 318 H Calcium 8.1 L Phosphorus 3.1 Magnesium 2.2 Total Bilirubin AST ALT Alkaline Phosphatase C-Reactive Protein Total Protein Albumin 08/25/17 18:30 Groin - Abscess Gram Stain - Final 08/25/17 18:30 Groin - Abscess Wound Culture - Final Enterococcus Faecalis(Group D) Enterococcus Raffinosus Escherichia Coli Corynebacterium Species No Anaerobic Organisms 08/24/17 08/24/17 08/25/17 18:00 22:00 05:15 Creatine Kinase 140 117 82 Impressions: Thoracic Spine CT 08/26/17 08:00 IMPRESSION: No acute findings in the thoracic spine. Abdomen/Pelvis CT 08/27/17 00:00 IMPRESSION: 1. Extensive basilar pulmonary changes suggesting pneumonia. 2. No evidence of intra- abdominal or intrapelvic abscess or drainable collection. Postoperative changes as above without evidence of mechanical bowel obstruction. 3. Marked irregular soft tissue loss in the proximal left posterior and medial thigh, incompletely assessed. No suggestion of regional drainable collection as imaged. Chest X-Ray 08/31/17 06:00 IMPRESSION: 1. Mildly improved aeration the lung bases with persistent bibasilar airspace opacity. Assessment & Plan - Diagnosis (1) Septic shock Is this a current diagnosis for this admission?: Yes Plan: Patient currently on broad-spectrum antibiotics and Ok-Synephrine. Because of infection is most likely the bilateral pneumonia in the wounds. These have since been I&D. Patient on broad-spectrum antibiotic coverage with vancomycin, cefepime, Flagyl and Diflucan. Patient blood pressures improved Ok-Synephrine weaned off. Patient is still having good urine output. Patient with persistent leukocytosis of 17,000 however this could be reactive as well as infective. Patient is on steroids and is anemic. (2) Acute respiratory failure with hypoxia Is this a current diagnosis for this admission?: Yes Plan: Patient with bilateral opacities on chest x-ray. This is concerning for possible pneumonia. Patient currently being treated for his pneumonia. Continue supportive care with nebs and serial ABGs along with chest x-rays. Pulmonology is following. (3) Pneumonia Qualifiers: Laterality: bilateral Lung location: unspecified part of lung Is this a current diagnosis for this admission?: Yes Plan: Patient is currently intubated therefore vent associated pneumonia is of concern. Patient is on vancomycin and cefepime. (4) Hypoxic brain injury Is this a current diagnosis for this admission?: Yes Plan: Concern for possible anoxic brain injury as patient was found down for an unknown period of time. Patient sedatives are being weaned off. Patient is awake and looking around the day will decrease the dose of his pain medication. Patient does not show improvement after being weaned off sedation patient may need CT imaging of the head. Patient may require further evaluation however we do not have neurology services here. (5) Groin abscess Is this a current diagnosis for this admission?: Yes Plan: Status post I&D of his left groin abscess. Patient evaluated by surgery today on 08/30/2017. She is status post I&D of left groin and left facial abscesses. Patient on broad-spectrum antibiotics. Dressing in place per surgery both wounds are granulating and clean. Recommend continuing wet-to-dry dressing changes of both wounds twice a day. (6) Decubitus ulcer Qualifiers: Pressure ulcer location: sacral region Pressure ulcer stage: stage 3 Qualified Code(s): L89.153 - Pressure ulcer of sacral region, stage 3 Is this a current diagnosis for this admission?: Yes Plan: Continue supportive care. Patient currently on broad-spectrum antibiotics and receiving wound care. (7) Hidradenitis suppurativa of anus Is this a current diagnosis for this admission?: Yes Plan: Continue supportive care. (8) Severe protein-calorie malnutrition Is this a current diagnosis for this admission?: Yes Plan: Continue tube feedings. (9) Crohns disease Qualifiers: Gastrointestinal tract location: unspecified location Is this a current diagnosis for this admission?: Yes Plan: Patient with diverting colostomy. Patient on low-dose steroids. Patient on broad-spectrum antibiotics. Patient does not appear to be having any diarrhea. Will check CRP although this may be elevated due to patient's pneumonia and wounds. Patient's CRP is elevated at 59.6 however that can be due to coexisting infections. This can be trended to evaluate for improvement. Patient had a CT scan done of the abdomen to look for any fistulas. There was none apparent on the imaging. (10) Diabetic keto-acidosis Qualifiers: Diabetes mellitus type: type 1 Diabetes mellitus complication detail: without coma Qualified Code(s): E10.10 - Type 1 diabetes mellitus with ketoacidosis without coma Is this a current diagnosis for this admission?: Yes (11) Hypokalemia Is this a current diagnosis for this admission?: Yes Plan: Potassium is still low. Will add potassium to patient's fluids and monitor. (12) Hypernatremia Is this a current diagnosis for this admission?: Yes Plan: Natremia improved after patient was placed on half-normal saline. Will place patient on normal saline at a low rate potassium. And monitor. (13) Anemia, chronic disease Is this a current diagnosis for this admission?: Yes Plan: Patient will have anemia chronic disease could be related to his Crohn's disease. Patient hemoglobin is trending down gradually. Will monitor and transfuse if needed. She completed will be iron deficient considering his Crohn 's disease. Once patient is no longer septic he may benefit from Venofer infusion. - Time Time Spent with patient: 15-24 minutes Anticipated discharge: SNF Within: Other - Inpatient Certification Medical Necessity: Significant Comorbidiites Make Outpatient Treatment Too Risky - Patient still intubated in the ICU. Patient still requires close monitoring and aggressive treatment., Need Close Monitoring Due to Risk of Patient Decompensation, Need For IV Fluids, Need For Continuous Telemetry Monitoring, Need for Neurological Checks, Need for IV Antibiotics
[2017-08-31] MEDS: HYDROMORPHONE HCL INJ/PF 2 MG/ML AMPULE IV PRN (22:51)
[2017-09-01] MEDS ORDERED: METRONIDAZOLE 500 MG/NS RTU 100 ML IV ONE ×2 (00:47→04:52)
[2017-09-01] MEDS: METRONIDAZOLE 500 MG/NS RTU 100 ML IV SCH ×2 (01:00→06:35)
[2017-09-01] MEDS: INSULIN LISPRO 100 UNIT/ML 3 ML VIAL SUBCUT PRN ×3 (01:00→18:56)
[2017-09-01] MEDS: VANCOMYCIN HCL 750 MG in DEXTROSE 5%-WATER 250 ML IV SCH ×3 (02:31→18:23)
[2017-09-01] MEDS: HYDROMORPHONE HCL INJ/PF 2 MG/ML AMPULE IV PRN ×3 (02:49→22:47)
[2017-09-01] MEDS: MIDAZOLAM HCL 50 MG/100 ML RTUINJ IV PRN (02:49)
[2017-09-01] MEDS: IPRATROPIUM/ALBUTEROL 0.5-2.5 MG/3 ML AMPUL NEB SCH ×6 (03:50→23:42)
[2017-09-01] MEDS: POTASSI CL 40 MEQ/NS 1L 1,000 ML IV PRN (05:25)
[2017-09-01] MEDS: CEFEPIME HCL 2 GM in NORMAL SALINE 100 ML IV SCH (05:25)
[2017-09-01 05:48] LABS: ARTERIAL BLOOD BASE EXCESS 8.7 mmol/L; ARTERIAL BLOOD H2CO3 1.01 mmol/L (1.05-1.35); ARTERIAL BLOOD HCO3 30.8 mmol/L (20-26); ARTERIAL BLOOD O2 SATURATION 97.7 % (94-98); ARTERIAL BLOOD PCO2 33.7 mmHg (35-45); ARTERIAL BLOOD PH 7.58 (7.35-7.45); ARTERIAL BLOOD PO2 85.9 mmHg (80-100); ARTERIAL BLOOD TOTAL CO2 31.9 mmol/L (23-27)
[2017-09-01 05:50] LABS: ARTERIAL BLOOD FIO2 40%
[2017-09-01 05:59] LABS: ALANINE AMINOTRANSFERASE 23 U/L (21-72); ALBUMIN 2.1 g/dL (3.5-5.0); ALKALINE PHOSPHATASE 387 U/L (38-126); ANION GAP 9 (5-19); ASPARTATE AMINO TRANSFERASE 17 U/L (17-59); BILIRUBIN,DIRECT 0.2 mg/dL (0.0-0.4); BILIRUBIN,TOTAL 0.2 mg/dL (0.2-1.3); BLOOD UREA NITROGEN 8 mg/dL (7-20); CALCIUM 7.5 mg/dL (8.4-10.2); CARBON DIOXIDE 27 mmol/L (22-30); CHLORIDE 104 mmol/L (98-107); GLUCOSE 251 mg/dL (75-110); PHOSPHORUS 2.5 mg/dL (2.5-4.5); POTASSIUM 3.5 mmol/L (3.6-5.0); SODIUM 140.3 mmol/L (137-145)
--- NOTE | 2017-09-01 06:16 | RADIOLOGY REPORT (SQ) ---
EXAM DESCRIPTION: CHEST SINGLE VIEW CLINICAL HISTORY: respiratory failure COMPARISON: 08/29/2017 FINDINGS: Single frontal view of the chest. Endotracheal tube with tip 4 cm above the belgica. Left IJ central venous catheter. NG tube with tip below the diaphragm. Postoperative change in the epigastric region. Cardiomediastinal silhouette is stable. Persistent patchy bibasilar opacities. No pneumothorax or large effusion. No acute osseous abnormalities identified. Upper abdominal soft tissues are unremarkable. IMPRESSION: 1. Stable appearance of the chest.
--- NOTE | 2017-09-01 07:30 | PDOC PROGRESS REPORT ---
Subjective Progress Note for:: 09/01/17 Subjective:: intubated, sedated Reason For Visit: DKA, SEPSIS Physical Exam Vital Signs: Temp Pulse Resp BP Pulse Ox 99.1 F 100 27 H 122/77 98 09/01/17 06:00 09/01/17 04:00 09/01/17 06:09 09/01/17 06:09 09/01/17 06:09 Intake & Output 08/31/17 09/01/17 09/02/17 06:59 06:59 06:59 Intake Total 3660 3958 Output Total 3210 5552 Balance 450 -1577 Weight 59.2 kg 58.3 kg Skin exam: PRESENT: other - left groin and left inschium wounds are clean granulating Results Laboratory Results: 08/31/17 05:38 09/01/17 05:35 08/31/17 08/31/17 08/31/17 05:38 05:38 10:11 WBC 19.0 H RBC 3.41 L Hgb 8.5 L Hct 26.4 L MCV 77 L MCH 24.9 L MCHC 32.3 RDW 18.0 H Plt Count 297 Seg Neutrophils % 65.7 Lymphocytes % 22.3 Monocytes % 8.9 Eosinophils % 1.9 Basophils % 1.2 Absolute Neutrophils 12.5 H Absolute Lymphocytes 4.2 Absolute Monocytes 1.7 H Absolute Eosinophils 0.4 Absolute Basophils 0.2 Carbonic Acid HCO3/H2CO3 Ratio ABG pH ABG pCO2 ABG pO2 ABG HCO3 ABG O2 Saturation ABG Base Excess FiO2 Sodium 140.6 Potassium 3.4 L Chloride 107 Carbon Dioxide 25 Anion Gap 9 BUN 5 L Creatinine 0.48 L Est GFR ( Amer) > 60 Est GFR (Non-Af Amer) > 60 Glucose 396 H Calcium 7.8 L Phosphorus 2.2 L 2.1 L Magnesium 1.7 1.8 Total Bilirubin 0.4 AST 19 ALT 17 L Alkaline Phosphatase 297 H C-Reactive Protein 59.6 H Total Protein 4.8 L Albumin 2.0 L 08/31/17 08/31/17 08/31/17 13:15 15:31 15:31 WBC RBC Hgb Hct MCV MCH MCHC RDW Plt Count Seg Neutrophils % Lymphocytes % Monocytes % Eosinophils % Basophils % Absolute Neutrophils Absolute Lymphocytes Absolute Monocytes Absolute Eosinophils Absolute Basophils Carbonic Acid 1.11 1.13 HCO3/H2CO3 Ratio 24:1 27:1 ABG pH 7.49 H 7.53 H ABG pCO2 36.9 37.7 ABG pO2 128.2 H 62.4 L ABG HCO3 27.2 H 31.1 H ABG O2 Saturation 98.8 H 94.3 ABG Base Excess 3.6 7.5 FiO2 50% 40% Sodium 144.5 Potassium 3.8 Chloride 107 Carbon Dioxide 29 Anion Gap 9 BUN 6 L Creatinine 0.52 Est GFR ( Amer) > 60 Est GFR (Non-Af Amer) > 60 Glucose 318 H Calcium 8.1 L Phosphorus Magnesium Total Bilirubin AST ALT Alkaline Phosphatase C-Reactive Protein Total Protein Albumin 08/31/17 09/01/17 09/01/17 15:31 05:35 05:35 WBC RBC Hgb Hct MCV MCH MCHC RDW Plt Count Seg Neutrophils % Lymphocytes % Monocytes % Eosinophils % Basophils % Absolute Neutrophils Absolute Lymphocytes Absolute Monocytes Absolute Eosinophils Absolute Basophils Carbonic Acid 1.01 L HCO3/H2CO3 Ratio 30:1 ABG pH 7.58 H ABG pCO2 33.7 L ABG pO2 85.9 ABG HCO3 30.8 H ABG O2 Saturation 97.7 ABG Base Excess 8.7 FiO2 40% Sodium 140.3 Potassium 3.5 L Chloride 104 Carbon Dioxide 27 Anion Gap 9 BUN 8 Creatinine 0.39 L Est GFR ( Amer) > 60 Est GFR (Non-Af Amer) > 60 Glucose 251 H Calcium 7.5 L Phosphorus 3.1 2.5 Magnesium 2.2 1.8 Total Bilirubin 0.2 AST 17 ALT 23 Alkaline Phosphatase 387 H C-Reactive Protein Total Protein 5.0 L Albumin 2.1 L 08/25/17 18:30 Groin - Abscess Gram Stain - Final 08/25/17 18:30 Groin - Abscess Wound Culture - Final Enterococcus Faecalis(Group D) Enterococcus Raffinosus Escherichia Coli Corynebacterium Species No Anaerobic Organisms 08/24/17 08/24/17 08/25/17 18:00 22:00 05:15 Creatine Kinase 140 117 82 Impressions: Thoracic Spine CT 08/26/17 08:00 IMPRESSION: No acute findings in the thoracic spine. Abdomen/Pelvis CT 08/27/17 00:00 IMPRESSION: 1. Extensive basilar pulmonary changes suggesting pneumonia. 2. No evidence of intra- abdominal or intrapelvic abscess or drainable collection. Postoperative changes as above without evidence of mechanical bowel obstruction. 3. Marked irregular soft tissue loss in the proximal left posterior and medial thigh, incompletely assessed. No suggestion of regional drainable collection as imaged. Chest X-Ray 09/01/17 06:00 IMPRESSION: 1. Stable appearance of the chest. Assessment & Plan - Diagnosis (1) Abscess or cellulitis of perineum Is this a current diagnosis for this admission?: Yes - Plan Summary Plan Summary: A/ S/p debridment left groin and ischium hydroadenitis abscesses Wounds granulating on Dakin's solution P/ Continue Dakins solution for1 more day, then resume NS wet-to-dry dressing changes BID
--- NOTE | 2017-09-01 08:38 | PROGRESS NOTE E ---
Progress Note NAME: TIA VILLANUEVA : 1965 AGE: 51Y DATE: 09/01/2017 ROOM: 611 SUBJECTIVE: The patient is lying in bed. The sedation is down to only 1 mcg, and the patient is opening his eyes. He is following us around the room and is able to withdraw from noxious stimuli. The patient grimaces appropriately and so forth. There have been no reported episodes of vomiting nor diarrhea. Still produces significant amount of sputum. The patient has had a low-grade temp which I feel may be pharmacological from the cefepime. The patient is unable to voice any specific concerns at this time. REVIEW OF SYSTEMS: Unobtainable. MEDICATIONS: Medications have been reviewed. OBJECTIVE: GENERAL: The patient is a 51-year-old male who is awake, alert. Unable to fully assess orientation. He does not appear to be in any acute distress. VITAL SIGNS FOLLOWS: Temperature is 99.1. Pulse 102. Respirations 21. Blood pressure is 122/77. Oxygen saturation is 98% on 40% FIO2. SKIN: Warm and dry. No rash. He is not diaphoretic. HEENT: Pupils are reactive. Conjunctivae are pink. NECK: There is no evidence of JVP. CARDIOVASCULAR SYSTEM: Heart is regular. No rub. CHEST: The patient does have rhonchial lung sounds throughout both lungs. Symmetrical. Unlabored. ABDOMEN: Soft. Nontender. Nondistended. EXTREMITIES: No clubbing, cyanosis. The patient does have dependent edema of his left upper and bilateral lower extremities. PSYCHIATRIC: Unable to fully assess. DIAGNOSTICS: Lab values are as follows. Hematology obtained on 08/31/2017: WBCs are 19.0. Hemoglobin is 8.5. Hematocrit is 26.4. Platelet count is 297,000. Chemistry obtained on 09/01/2017: Sodium is 140. Potassium 3.5. Chloride is 104. Carbon dioxide 27. BUN 4. Creatinine is 0.39. Glucose 251. Calcium is 7.5. Phosphorus 2.5. Magnesium is 1.8. Bilirubin is 0.2. AST 17. ALT is 23. Alk phos 387. Total protein 5.0. Albumin 2.1. IMPRESSION AND PLAN: 1. BILATERAL PNEUMONIA. The patient is currently intubated. Will continue broad-spectrum antibiotic coverage for now, bronchodilators, and follow. 2. ACUTE HYPOXEMIC RESPIRATORY FAILURE. The patient does have concerns, of course, for pneumonia. ABG looks stable. Pulmonary is following. Hopefully, we can extubate the patient today. 3. SEPTIC SHOCK. The patient continues to have a low-grade temp. However, I do feel there is a pharmacological fever here with the cefepime. Will discontinue cefepime, Flagyl, and cover with meropenem and vancomycin for now and follow. 4. CONCERN FOR POSSIBLE ANOXIC BRAIN INJURY. The patient was down for an unknown period of time. The patient is awake and alert with sedatives. Will readdress once the patient is extubated. broad-spectrum antibiotic coverage and dressings as per surgery recommendation. 6. DECUBITUS ULCER. Continue supportive care. 7. HIDRADENITIS SUPPURATIVA OF THE ANUS. Continue supportive care. 8. SEVERE PROTEIN CALORIE MALNOURISHMENT. The patient does have third spacing edema from his hypoalbuminemia. Will liberalize the patient's diet once able to take p.o. 9. CROHN'S DISEASE. The patient does have a diverting colostomy, on low-dose steroids. Will follow. 10. HYPOKALEMIA. We will replace. 11. HYPERNATREMIA. Will continue current fluids. 12. ANEMIA OF CHRONIC DISEASE. Will continue to monitor the patient's CBC. 13. DIABETES MELLITUS TYPE 1. Will continue insulin coverage. DISPOSITION: The patient is a FULL CODE. Pending patient's symptomatology and diagnostic findings, will reevaluate as needed. Hopefully, the patient can be extubated today. TIME SPENT: Time spent on this critical care visit including assessment, plan, physical examination, patient education, review of records is 40 minutes. DICTATING PHYSICIAN: GIRISH WING NP [id number] PHY#: [id number] ID: [id number] JOB#: [id number] ACCT: [id number] cc: > [facility]
[2017-09-01] MEDS ORDERED: POTASSIUM CHLORIDE 20 MEQ/15 ML UDCUP PO ONE (09:00)
[2017-09-01] MEDS: ENOXAPARIN SODIUM INJ 40 MG/0.4 ML DISP.SYRIN SUBCUT SCH (09:28)
[2017-09-01] MEDS: FLUCONAZOLE 400 MG/NS RTU 400 MG/200 ML RTUPB IV SCH (09:36)
[2017-09-01] MEDS: PREDNISONE 10 MG TABLET PO SCH (09:36)
[2017-09-01] MEDS: FAMOTIDINE INJ/PF 20 MG/2 ML SDV IV SCH ×2 (09:37→22:47)
[2017-09-01] MEDS: DULOXETINE HCL 30 MG CAPSULE.DR PO SCH ×2 (09:38→22:47)
[2017-09-01] MEDS: SODIUM HYPOCHLORITE 0.25% SOLN 473 ML BOTTLE TP SCH ×2 (09:38→18:02)
[2017-09-01] MEDS ORDERED: MEROPENEM 1 GM in NORMAL SALINE 50 ML IV SCH (10:00)
[2017-09-01] MEDS: MEROPENEM 1 GM in NORMAL SALINE 100 ML IV SCH ×2 (12:35→18:01)
[2017-09-01 18:55] LABS: VANCOMYCIN,TROUGH 12.3 ug/mL (5.0-20.0)
[2017-09-02] MEDS: MEROPENEM 1 GM in NORMAL SALINE 100 ML IV SCH ×3 (01:10→18:19)
[2017-09-02] MEDS: INSULIN LISPRO 100 UNIT/ML 3 ML VIAL SUBCUT PRN ×3 (01:13→23:30)
[2017-09-02] MEDS ORDERED: MIDAZOLAM HCL 50 MG/100 ML RTUINJ IV PRN (01:15)
[2017-09-02] MEDS: VANCOMYCIN HCL 750 MG in DEXTROSE 5%-WATER 250 ML IV SCH ×3 (02:32→18:20)
[2017-09-02] MEDS: POTASSI CL 40 MEQ/NS 1L 1,000 ML IV PRN ×2 (02:34→23:27)
[2017-09-02] MEDS: IPRATROPIUM/ALBUTEROL 0.5-2.5 MG/3 ML AMPUL NEB SCH ×5 (04:09→19:54)
[2017-09-02 05:58] LABS: ARTERIAL BLOOD BASE EXCESS 9.3 mmol/L; ARTERIAL BLOOD H2CO3 1.03 mmol/L (1.05-1.35); ARTERIAL BLOOD HCO3 31.6 mmol/L (20-26); ARTERIAL BLOOD O2 SATURATION 96.7 % (94-98); ARTERIAL BLOOD PCO2 34.2 mmHg (35-45); ARTERIAL BLOOD PH 7.58 (7.35-7.45); ARTERIAL BLOOD PO2 73.5 mmHg (80-100); ARTERIAL BLOOD TOTAL CO2 32.6 mmol/L (23-27)
[2017-09-02 05:59] LABS: ARTERIAL BLOOD FIO2 40%
[2017-09-02 06:03] LABS: HEMATOCRIT 26.7 % (37.9-51.0); HEMOGLOBIN 8.8 g/dL (13.5-17.0); MEAN CORPUSCULAR HEMOGLOBIN 25.2 pg (27.0-33.4); MEAN CORPUSCULAR HGB CONC 32.9 g/dL (32.0-36.0); MEAN CORPUSCULAR VOLUME 77 fl (80-97); PLATELET COUNT 424 10^3/uL (150-450); RED BLOOD COUNT 3.48 10^6/uL (4.35-5.55); RED CELL DISTRIBUTION WIDTH 17.8 % (11.5-14.0); WHITE BLOOD COUNT 20.7 10^3/uL (4.0-10.5)
[2017-09-02 06:14] LABS: ALANINE AMINOTRANSFERASE 22 U/L (21-72); ALBUMIN 2.4 g/dL (3.5-5.0); ALKALINE PHOSPHATASE 550 U/L (38-126); ANION GAP 7 (5-19); ASPARTATE AMINO TRANSFERASE 25 U/L (17-59); BILIRUBIN,DIRECT 0.4 mg/dL (0.0-0.4); BILIRUBIN,TOTAL 0.4 mg/dL (0.2-1.3); BLOOD UREA NITROGEN 6 mg/dL (7-20); CALCIUM 7.7 mg/dL (8.4-10.2); CARBON DIOXIDE 30 mmol/L (22-30); CHLORIDE 98 mmol/L (98-107); GLUCOSE 195 mg/dL (75-110); POTASSIUM 3.4 mmol/L (3.6-5.0); SODIUM 135.1 mmol/L (137-145); TOTAL PROTEIN 5.5 g/dL (6.3-8.2)
[2017-09-02 06:25] LABS: ABSOLUTE LYMPHOCYTES# (MANUAL) 5.2 10^3/uL (0.5-4.7); ABSOLUTE MONOCYTES # (MANUAL) 1.2 10^3/uL (0.1-1.4); ABSOLUTE NEUTROPHILS# (MANUAL) 14.1 10^3/uL (1.7-8.2); BAND NEUTROPHILS % (MANUAL) 1 % (3-5); BASOPHILS % (MANUAL) 0 % (0-2); EOSINOPHILS % (MANUAL) 1 % (0-6); LYMPHOCYTES % (MANUAL) 25 % (13-45); MONOCYTES % (MANUAL) 6 % (3-13); NUCLEATED RED BLOOD CELLS 1 /100 WBC (0); SEGMENTED NEUTROPHILS % (MAN) 67 % (42-78); TOTAL CELLS COUNTED 100
[2017-09-02 06:27] LABS: ANISOCYTOSIS 2+; HYPOCHROMASIA SLIGHT; PLATELET COMMENT ADEQUATE; PLATELET LARGE PRESENT; POLYCHROMASIA SLIGHT; ROULEAUX SLIGHT; TARGET CELLS SLIGHT; TOXIC VACUOLATION PRESENT
[2017-09-02] MEDS: POTASSIUM CHLORIDE 20 MEQ/50 ML RTU IV SCH ×2 (07:06→08:32)
--- NOTE | 2017-09-02 08:14 | Progress Note ---
Provider Note Provider Note: JONY WEBER Search Criteria: Last Name 'Jony' and First Name 'Sarbjit' and = '11/[birth year]' and Request Period = '03/06/17' to 09/02/17' - 1 out of 1 Recipients Selected. Fill Date Product, Str, Form Qty Days Pt ID Prescriber Written RX# N/R* Pharm MED+ ------ ---- --------- --- ------- ----- --------- ------ 07/29/2017 MORPHINE SULF ER 100 MG TABLET 60.00 30 [id number] 2017 [id number] N [id number] 200.0 07/29/2017 OXYCODONE HCL 20 MG TABLET 180.00 30 [id number] 07/29/2017 [id number] N [id number] 180.0 06/29/2017 MORPHINE SULF ER 100 MG TABLET 90.00 30 [id number] 2016 [id number] N [id number] UNK 06/29/2017 OXYCODONE HCL 20 MG TABLET 180.00 30 [id number] 06/29/2017 [id number] N [id number] 180.0 05/31/2017 OXYCODONE HCL 20 MG TABLET 180.00 30 [id number] 05/31/2017 [id number] N [id number] 180.0 05/31/2017 DIAZEPAM 5 MG TABLET 90.00 30 [id number] 05/31/2017 [id number] N [id number] 00.0 05/31/2017 MORPHINE SULF ER 100 MG TABLET 90.00 30 [id number] 2016 [id number] N [id number] UNK 05/31/2017 OXYCODONE HCL 10 MG TABLET 60.00 10 [id number] 05/31/2017 [id number] N [id number] 90.0 05/16/2017 OXYCODONE HCL 10 MG TABLET 60.00 10 [id number] 05/12/2017 [id number] N [id number] 90.0 05/01/2017 MORPHINE SULF ER 100 MG TABLET 90.00 30 [id number] 2016 [id number] N [id number] UNK 05/01/2017 OXYCODONE HCL 20 MG TABLET 180.00 30 [id number] 04/29/2017 [id number] N [id number] 180.0 04/29/2017 DIAZEPAM 5 MG TABLET 90.00 30 [id number] 04/29/2017 [id number] N [id number] 00.0 04/22/2017 OXYCODONE HCL 10 MG TABLET 60.00 10 [id number] 04/21/2017 [id number] N [id number] 90.0 04/03/2017 OXYCODONE HCL 20 MG TABLET 180.00 30 [id number] 04/01/2017 [id number] N [id number] 180.0 04/03/2017 MORPHINE SULF ER 100 MG TABLET 90.00 30 [id number] 2016 [id number] N [id number] UNK 04/01/2017 OXYCODONE HCL 10 MG TABLET 60.00 10 [id number] 04/01/2017 [id number] N [id number] 90.0 03/18/2017 OXYCODONE HCL 10 MG TABLET 60.00 10 [id number] 03/18/2017 [id number] N [id number] 90.0 [id number] DELROY CROUCH; [facility], [address], [facility] [id number]
[2017-09-02] MEDS: HYDROMORPHONE HCL INJ/PF 2 MG/ML AMPULE IV PRN ×2 (08:33→14:16)
--- NOTE | 2017-09-02 08:56 | RADIOLOGY REPORT (SQ) ---
EXAM DESCRIPTION: CHEST SINGLE VIEW COMPLETED DATE/TIME: 09/02/2017 7:16 am REASON FOR STUDY: Pt intubated COMPARISON: 09/01/2017. EXAM PARAMETERS: NUMBER OF VIEWS: One view. TECHNIQUE: Single frontal radiographic view of the chest acquired. RADIATION DOSE: NA LIMITATIONS: None. FINDINGS: LUNGS AND PLEURA: Interval decrease in infiltrate right lung base with minimal residual in filtrate noted. Resolution infiltrate left lung base MEDIASTINUM AND HILAR STRUCTURES: No masses. Contour normal. HEART AND VASCULAR STRUCTURES: The heart is normal with normal pulmonary vasculature. BONES: No acute findings. HARDWARE: None in the chest. OTHER: Endotracheal tube above belgica. NG tube overlying stomach. Left IJ line with tip overlying SVC. Chest leads in place. IMPRESSION: Interval decrease or improvement in bibasilar infiltrates. TECHNICAL DOCUMENTATION: JOB ID: [id number] [employer]- All Rights Reserved
[2017-09-02] MEDS: DULOXETINE HCL 30 MG CAPSULE.DR PO SCH ×2 (09:22→22:57)
[2017-09-02] MEDS: PREDNISONE 10 MG TABLET PO SCH (09:22)
[2017-09-02] MEDS: FAMOTIDINE INJ/PF 20 MG/2 ML SDV IV SCH ×2 (09:22→22:57)
[2017-09-02] MEDS: FLUCONAZOLE 400 MG/NS RTU 400 MG/200 ML RTUPB IV SCH (09:23)
[2017-09-02] MEDS: ENOXAPARIN SODIUM INJ 40 MG/0.4 ML DISP.SYRIN SUBCUT SCH (09:23)
[2017-09-02] MEDS: SODIUM HYPOCHLORITE 0.25% SOLN 473 ML BOTTLE TP SCH ×2 (09:24→18:19)
--- NOTE | 2017-09-02 10:18 | PROGRESS NOTE E ---
Progress Note NAME: TIA VILLANUEVA : 1965 AGE: 51Y DATE: 09/02/2017 ROOM: 611 SUBJECTIVE: The patient is lying in bed. I did see the patient in conjunction with surgery. The patient's wounds were reviewed and feel to be stable from a surgical standpoint. The patient's chest x-ray appears to have improved aeration by my assessment. There have been no reported episodes of vomiting. The patient has had a decent amount of output in his ileostomy. The patient has remained tachycardia around 110 to 120, and with blood pressures being in acceptable range. The patient appears to have a low-grade temperature of around 100. The patient is unable to voice any concerns at this time. BRIEF HISTORY: The patient is a 51-year-old male with a past medical history of Crohn disease, opiate dependency, and diabetes. The patient presented in the Emergency Department as he was found to be unresponsive, uncertain how long the patient was unresponsive as he was found that way. It could have been possibly days. The patient is noted to have wounds on his thighs, scrotum, and sacral area which has been seen and debrided by Surgery. The patient's course was also complicated by pneumonia. The patient has had a persistent white count and has redeveloped a low-grade temperature, initially thought to be due to cefepime; however, it has persisted in spite of transitioning the patient to other antibiotics. Surgery did not plan any further intervention at this time and Pulmonology is evaluating for extubation. REVIEW OF SYSTEMS: Unobtainable. MEDICATIONS: Medications have been reviewed. OBJECTIVE: GENERAL: The patient is a 51-year-old male who is currently intubated and sedated but will awaken. He obviously has a pain response when dressings were changed as his heart rate did climb. SKIN: Warm, dry, no rash. Not diaphoretic. HEENT: Pupils are reactive. ET tube in place with [place]. There is no evidence of JVP. CARDIOVASCULAR: Heart is tachycardic, regular. CHEST: Diminished, clear, symmetrical, mechanical. ABDOMEN: Soft, nontender. Ileostomy is draining brown liquid stool, nondistended. EXTREMITIES: No clubbing, cyanosis. PSYCHIATRIC: Unable to fully assess. DIAGNOSTICS: Lab values are as follows: Hematology done on 09/02/2017: WBC is 20.7, hemoglobin 8.8, hematocrit 26.7, platelet count is 424,000. Chemistry panel on 09/02/2017: Sodium is 135, potassium 3.4, chloride 98, carbon dioxide 30, BUN 6, creatinine is 0.4. Glucose 195. Calcium was 10.7, magnesium is 1.7. Alkaline phosphatase is 550. IMPRESSION AND PLAN: 1. BILATERAL PNEUMONIA. The patient is currently intubated. Continue broad-spectrum coverage. Chest x-ray shows improved aeration. Will continue his bronchodilators. Hopefully, the patient can be extubated today as he has done very well during his weaning trials. 2. ACUTE HYPOXEMIC RESPIRATORY FAILURE. Most likely due to pneumonia. ABG looks stable. Pulmonary is following. 3. SEPTIC SHOCK. The patient continues to have a low-grade temperature. Will continue current antibiotic coverage; however, we will re-culture the patient and obtain a C. difficile specimen and follow. 4. CONCERN FOR POSSIBLE ANOXIC BRAIN INJURY. The patient was down for an unknown period of time. The patient is awake and alert when sedatives are decreased. We will re-address once the patient is extubated. 5. DECUBITUS ULCERS. Will continue supportive care. 6. HIDRADENITIS SUPPURATIVA OF THE ANUS. Continue supportive care. 7. GROIN ABSCESS. The patient is status post I and D of this. The patient went to surgery on 08/30/2017. This has been evaluated again today. No further operative intervention is recommended at this time. 8. SEVERE PROTEIN/CALORIE MALNOURISHMENT. The patient does have some third spacing edema from his hypoalbuminemia. We will liberalize the patient's diet intake once he is able to take p.o. again. 9. CROHN DISEASE. The patient does have a diverting ileostomy. He is on low-dose steroids. Will follow. 10. HYPOKALEMIA. This has been replaced. 11. HYPERNATREMIA. Continue fluids. 12. ANEMIA OF CHRONIC DISEASE. Will continue to monitor the patient's CBC. 13. DIABETES MELLITUS TYPE 1. Continue insulin coverage. 14. OPIATE DEPENDENCY. Will continue the patient's oral medications once taking p.o. I do think this opiate withdrawal may be a part of the patient's of the patient's tachycardia. 15. ELEVATED ALKALINE PHOSPHATASE. Uncertain of the exact etiology of this. The patient does have chronic inflammatory bowel and it has been elevated for a period of time, but it is extensively elevated at this point. CT of the abdomen does not reveal any biliary issues. Will repeat in the a.m. and follow. ADDENDUM: Was called to the bedside by surgeon. During line placement the patient's heart rate went up to 190 and appeared irregular. Metoprolol given. Renetta consulted. Dig loaded. Cardizem drip started. Covered with Lovenox. DISPOSITION: The patient is a FULL CODE. Pending patient's symptomatology and diagnostic findings, will reevaluate as needed. TIME SPENT: Time spent on this critical care visit including assessment, plan, physical examination, patient education, review of records, and specialty collaboration is 40 minutes. DICTATING PHYSICIAN: GIRISH WING NP [id number] PHY#: [id number] ID: [id number] JOB#: [id number] ACCT: [id number] cc: > MTDD
[2017-09-02 10:22] LABS: AMORPHOUS SEDIMENT,URINE TRACE /HPF; APPEARANCE,URINE CLEAR; BILIRUBIN,URINE NEGATIVE (NEGATIVE); COLOR,URINE YELLOW; GLUCOSE, URINE 50 mg/dL (NEGATIVE); KETONES,URINE NEGATIVE (NEGATIVE); LEUKOCYTE ESTERASE,URINE NEGATIVE (NEGATIVE); NITRITE,URINE NEGATIVE (NEGATIVE); PROTEIN,URINE NEGATIVE (NEGATIVE); UROBILINOGEN,URINE NEGATIVE mg/dL (<2.0)
[2017-09-02] MEDS ORDERED: ONDANSETRON HCL 8 MG TABLET PO PRN (16:40)
[2017-09-02] MEDS ORDERED: METOPROLOL TARTRATE PF/INJ 5 MG/5 ML SDV IV ONE (17:37)
[2017-09-02] MEDS ORDERED: DIGOXIN INJ 0.5 MG/2 ML AMPULE ONE (17:48)
[2017-09-02] MEDS ORDERED: DILTIAZEM HCL INJ 25 MG/5 ML VIAL ONE (17:55)
[2017-09-02] MEDS ORDERED: DILTIAZEM HCL/D5W 125 MG/125 ML RTUINJ IV PRN (17:58)
[2017-09-02] MEDS ORDERED: DILTIAZEM HCL/D5W 125 MG/125 ML RTUINJ IV ONE (18:02)
--- NOTE | 2017-09-02 18:02 | RADIOLOGY REPORT (SQ) ---
EXAM DESCRIPTION: CHEST SINGLE VIEW COMPLETED DATE/TIME: 09/02/2017 5:54 pm REASON FOR STUDY: Central Line Placement COMPARISON: CT chest 03/01/2017 Chest films 08/24/2017, 08/25/2017, 09/01/2017, 09/02/2017 EXAM PARAMETERS: NUMBER OF VIEWS: One view. TECHNIQUE: Single frontal radiographic view of the chest acquired. RADIATION DOSE: NA LIMITATIONS: None. FINDINGS: LUNGS AND PLEURA: Diffuse patchy airspace disease persists, edema versus pneumonia. No pleural effusion. No pneumothorax post right jugular central line placement with the tip in the superior vena cava. MEDIASTINUM AND HILAR STRUCTURES: No masses. Contour normal. HEART AND VASCULAR STRUCTURES: No cardiomegaly BONES: No acute findings. HARDWARE: Unchanged left jugular central line with the tip in the superior vena cava. New right trip le-lumen catheter with the tip in the superior vena cava. Endotracheal and nasogastric tubes have be en removed. OTHER: No other significant finding. IMPRESSION: No pneumothorax post right jugular central line placement. TECHNICAL DOCUMENTATION: JOB ID: [id number] [employer]- All Rights Reserved Reading location - IP/workstation name: [facility]
[2017-09-02 18:05] LABS: INTERNATIONAL RATION (INR) 1.04; PROTHROMBIN TIME 14.4 SEC (11.4-15.4)
[2017-09-02 18:12] LABS: ABSOLUTE BASOPHILS # (AUTO) 0.1 10^3/uL (0.0-0.2); ABSOLUTE EOSINOPHILS # (AUTO) 0.2 10^3/uL (0.0-0.6); ABSOLUTE MONOCYTES (AUTO) 1.2 10^3/uL (0.1-1.4); ABSOLUTE NEUT (AUTO) 14.4 10^3/uL (1.7-8.2); BASOPHILS % (AUTO) 0.3 % (0-2); EOSINOPHILS % (AUTO) 1.1 % (0-6); HEMATOCRIT 25.8 % (37.9-51.0); HEMOGLOBIN 8.3 g/dL (13.5-17.0); LYMPHOCYTES % (AUTO) 20.1 % (13-45); MEAN CORPUSCULAR HEMOGLOBIN 25.2 pg (27.0-33.4); MEAN CORPUSCULAR HGB CONC 32.3 g/dL (32.0-36.0); MEAN CORPUSCULAR VOLUME 78 fl (80-97); PLATELET COUNT 440 10^3/uL (150-450); RED CELL DISTRIBUTION WIDTH 18.1 % (11.5-14.0); SEGMENTED NEUTROPHILS % (AUTO) 72.5 % (42-78); TOTAL CELLS COUNTED % (AUTO) 100 %; WHITE BLOOD COUNT 19.9 10^3/uL (4.0-10.5)
[2017-09-02 18:20] LABS: ALANINE AMINOTRANSFERASE 24 U/L (21-72); ALBUMIN 2.1 g/dL (3.5-5.0); ALKALINE PHOSPHATASE 482 U/L (38-126); ANION GAP 6 (5-19); ASPARTATE AMINO TRANSFERASE 15 U/L (17-59); BILIRUBIN,DIRECT 0.3 mg/dL (0.0-0.4); BILIRUBIN,TOTAL 0.3 mg/dL (0.2-1.3); BLOOD UREA NITROGEN 4 mg/dL (7-20); CALCIUM 7.6 mg/dL (8.4-10.2); CARBON DIOXIDE 32 mmol/L (22-30); CHLORIDE 96 mmol/L (98-107); GLUCOSE 228 mg/dL (75-110); POTASSIUM 3.8 mmol/L (3.6-5.0); SODIUM 134.4 mmol/L (137-145)
[2017-09-02 18:31] LABS: CREATINE KINASE MB 0.4 ng/mL (<4.55); TROPONIN I 0.027 ng/mL
--- NOTE | 2017-09-02 19:00 | EKG REPORT ---
SEVERITY:- ABNORMAL ECG - ATRIAL FIBRILLATION ABERRANT COMPLEX, POSSIBLY SUPRAVENTRICULAR NONSPECIFIC T ABNORMALITIES, INFERIOR LEADS : Confirmed by: Librado Sampson MD 02-Sep-2017 18:58:35
--- NOTE | 2017-09-02 19:43 | OPERATIVE REPORT E ---
Operative Report NAME: TIA VILLANUEVA : 1965 AGE: 51Y DATE OF SURGERY: 09/02/2017 ROOM: 611 PREOPERATIVE DIAGNOSIS: SEPSIS. POSTOPERATIVE DIAGNOSIS: SEPSIS. PROCEDURE: 1. Focused ultrasound of the right neck. 2. Ultrasound directed insertion of a triple-lumen central venous access catheter. 3. Interpretation of portable upright x-ray. SURGEON: WALDEMAR FLORES M.D. ANESTHESIA: Plain 1% lidocaine. COMPLICATIONS: None. ESTIMATED BLOOD LOSS: Minimal. DRAINS: None. PROCEDURE: Patient time out conducted. Patient was placed in limited Trendelenburg position. Right leg scanned; right internal jugular vein felt suitable for cannulation. The right neck and chest wall were prepped and draped in sterile fashion. Surgical plan and surgical timeout were conducted. Using ultrasound as a real-time guide, a triple-lumen access catheter was threaded into the right internal jugular vein without difficulty, using a single-stick technique. There was excellent blood flow through all 3 lumens. Catheter was flushed with heparin saline. Upon insertion of the catheter, the patient went from sinus rhythm to supraventricular tachycardia with sporadic PVCs. At this point manipulation of the catheter, including withdrawal of the catheter by approximately 8 cm, the tachycardia persisted. The patient was given metoprolol with only minimal improvement in tachycardia. The catheter was secured in position, sterile dressing applied including Biopatch. Portable upright chest x-ray showed the catheter to be in good position. There was no pneumothorax. Internal consultation with medicine team was well as the oil refinery operator was activated. DICTATING PHYSICIAN: WALDEMAR FLORES M.D. [id number] PHY#: [id number] ID: [id number] JOB#: [id number] ACCT: [id number] cc:WALDEMAR FLORES M.D. > MTDD
[2017-09-02] MEDS: ENOXAPARIN SODIUM INJ 60 MG/0.6 ML DISP.SYRIN SUBCUT SCH (22:56)
[2017-09-02] MEDS: MORPHINE SULFATE SR 100 MG TABLET PO SCH (22:57)
[2017-09-03] MEDS: IPRATROPIUM/ALBUTEROL 0.5-2.5 MG/3 ML AMPUL NEB SCH ×6 (00:44→20:19)
[2017-09-03] MEDS: HYDROMORPHONE HCL INJ/PF 2 MG/ML AMPULE IV PRN ×3 (01:27→11:15)
[2017-09-03] MEDS: MEROPENEM 1 GM in NORMAL SALINE 100 ML IV SCH ×3 (01:27→17:58)
[2017-09-03] MEDS: VANCOMYCIN HCL 750 MG in DEXTROSE 5%-WATER 250 ML IV SCH ×3 (02:15→18:45)
[2017-09-03 06:03] LABS: ARTERIAL BLOOD BASE EXCESS 10.6 mmol/L; ARTERIAL BLOOD H2CO3 1.38 mmol/L (1.05-1.35); ARTERIAL BLOOD HCO3 34.9 mmol/L (20-26); ARTERIAL BLOOD O2 SATURATION 96.1 % (94-98); ARTERIAL BLOOD PO2 76.2 mmHg (80-100); ARTERIAL BLOOD TOTAL CO2 36.3 mmol/L (23-27)
[2017-09-03 06:06] LABS: INTERNATIONAL RATION (INR) 0.97; PROTHROMBIN TIME 13.6 SEC (11.4-15.4)
[2017-09-03 06:07] LABS: PARTIAL THROMBOPLASTIN TIME 32.9 SEC (23.5-35.8)
[2017-09-03 06:13] LABS: HEMATOCRIT 29.1 % (37.9-51.0); HEMOGLOBIN 9.4 g/dL (13.5-17.0); MEAN CORPUSCULAR HEMOGLOBIN 25.1 pg (27.0-33.4); MEAN CORPUSCULAR HGB CONC 32.3 g/dL (32.0-36.0); MEAN CORPUSCULAR VOLUME 78 fl (80-97); PLATELET COUNT 522 10^3/uL (150-450); RED BLOOD COUNT 3.74 10^6/uL (4.35-5.55); RED CELL DISTRIBUTION WIDTH 17.8 % (11.5-14.0); WHITE BLOOD COUNT 24.7 10^3/uL (4.0-10.5)
[2017-09-03 06:14] LABS: ARTERIAL BLOOD FIO2 2L
[2017-09-03 06:42] LABS: ABSOLUTE LYMPHOCYTES# (MANUAL) 5.7 10^3/uL (0.5-4.7); ABSOLUTE MONOCYTES # (MANUAL) 0.7 10^3/uL (0.1-1.4); ABSOLUTE NEUTROPHILS# (MANUAL) 17.8 10^3/uL (1.7-8.2); BASOPHILS % (MANUAL) 0 % (0-2); EOSINOPHILS % (MANUAL) 2 % (0-6); LYMPHOCYTES % (MANUAL) 23 % (13-45); MONOCYTES % (MANUAL) 3 % (3-13); SEGMENTED NEUTROPHILS % (MAN) 72 % (42-78); TOTAL CELLS COUNTED 100
[2017-09-03 06:44] LABS: ANISOCYTOSIS 1+; HYPOCHROMASIA 1+; PLATELET COMMENT INCREASED; POIKILOCYTOSIS 1+; POLYCHROMASIA SLIGHT; TARGET CELLS 1+; TOXIC GRANULATION SLIGHT; TOXIC VACUOLATION PRESENT
[2017-09-03 06:48] LABS: ALBUMIN 2.6 g/dL (3.5-5.0); ANION GAP 10 (5-19); BLOOD UREA NITROGEN 2 mg/dL (7-20); CARBON DIOXIDE 33 mmol/L (22-30); CHLORIDE 94 mmol/L (98-107); GLUCOSE 175 mg/dL (75-110); POTASSIUM 3.1 mmol/L (3.6-5.0); SODIUM 137.1 mmol/L (137-145); TOTAL PROTEIN 5.5 g/dL (6.3-8.2)
[2017-09-03 06:49] LABS: ALANINE AMINOTRANSFERASE 21 U/L (21-72); ALKALINE PHOSPHATASE 523 U/L (38-126); ASPARTATE AMINO TRANSFERASE 16 U/L (17-59); BILIRUBIN,DIRECT 0.2 mg/dL (0.0-0.4); BILIRUBIN,TOTAL 0.2 mg/dL (0.2-1.3); CALCIUM 8.1 mg/dL (8.4-10.2)
--- NOTE | 2017-09-03 07:15 | RADIOLOGY REPORT (SQ) ---
EXAM DESCRIPTION: CHEST SINGLE VIEW CLINICAL HISTORY: sepsis COMPARISON: 09/02/2017 FINDINGS: Single frontal view of the chest. Right IJ central venous catheter. Interval removal of left IJ central venous catheter. Postoperative change in the epigastric region. Cardiomediastinal silhouette is stable. Persistent patchy bibasilar opacities. No pneumothorax or large effusion. No acute osseous abnormalities identified. Upper abdominal soft tissues are unremarkable. IMPRESSION: 1. Interval removal of left IJ central venous catheter. Otherwise stable appearance of the chest with persistent patchy bibasilar opacity. Electronically signed by: Rinku Wayne 09/03/2017 6:14 AM
--- NOTE | 2017-09-03 09:11 | XCELERA REPORT ---
[address] [address] Transthoracic Echocardiogram Report Name: TIA VILLANUEVA Age: 51 yrs Gender: Male : 1965 Patient Status: Inpatient Patient Location: ICU^1^A Study Date: 09/02/2017 06:43 PM Height: 67 in Weight: 127 lb BSA: 1.7 m2 Procedure: A complete two-dimensional transthoracic echocardiogram was performed (2D, M-mode, spectral and color flow Doppler). The study was technically adequate with some images being suboptimal in quality. Reason For Study: Rhythm Change Ordering Physician: GIRISH WING Performed By: Gloria Gamboa Interpretation Summary The left ventricular ejection fraction is normal. Doppler measurements suggest pseudonormalized left ventricular relaxation, which is associated with grade II/IV or mild to moderate diastolic dysfunction There is borderline concentric left ventricular hypertrophy. The left ventricle is grossly normal size. Wall motion cannot be accurately commented on, but no definite regional wall motion abnormalities noted. The right ventricular systolic function is normal. The left atrial size is normal. The right atrium is normal in size There is no mitral regurgitation noted. There is no mitral valve stenosis. No aortic regurgitation is present. There is no aortic valve stenosis There is no tricuspid stenosis. No tricuspid regurgitation. The aortic root is not well visualized but is probably normal size. The inferior vena cava was not well visualized There is no pericardial effusion. MMode/2D Measurements & Calculations RVDd: 2.6 cm LVIDd: 4.4 cm FS: 29.5 % Ao root diam: 2.9 cm IVSd: 0.96 cm LVIDs: 3.1 cm EDV(Teich): 86.3 ml LVPWd: 0.98 cm ESV(Teich): 37.3 ml Ao root area: 6.7 cm2 EF(Teich): 56.7 % LA dimension: 2.5 cm Doppler Measurements & Calculations MV E max suha: MV P1/2t max suha: Ao V2 max: LV V1 max P.1 cm/sec 68.6 cm/sec 119.9 cm/sec 3.6 mmHg MV A max suha: MV P1/2t: 64.4 msec Ao max PG: LV V1 max: 90.8 cm/sec 5.7 mmHg 94.3 cm/sec MV E/A: 0.76 MVA(P1/2t): 3.4 cm2 MV dec slope: 312.0 cm/sec2 PA V2 max: 90.3 cm/sec PA max P.3 mmHg Left Ventricle The left ventricle is grossly normal size. There is borderline concentric left ventricular hypertrophy. The left ventricular ejection fraction is normal. Doppler measurements suggest pseudonormalized left ventricular relaxation, which is associated with grade II/IV or mild to moderate diastolic dysfunction. Wall motion cannot be accurately commented on, but no definite regional wall motion abnormalities noted. Right Ventricle The right ventricle is grossly normal size. There is normal right ventricular wall thickness. The right ventricular systolic function is normal. Atria The right atrium is normal in size. The left atrial size is normal. Interarterial septum not well visualized and not well dopplered. Cannot comment on ASD/PFO presence. Mitral Valve The mitral valve is grossly normal. There is no mitral valve stenosis. There is no mitral regurgitation noted. Aortic Valve The aortic valve is grossly normal. There is no aortic valve stenosis. No aortic regurgitation is present. Tricuspid Valve The tricuspid valve is not well visualized, but is grossly normal. There is no tricuspid stenosis. No tricuspid regurgitation. Pulmonic Valve The pulmonic valve is not well visualized. Great Vessels The aortic root is not well visualized but is probably normal size. The inferior vena cava was not well visualized. Effusions There is no pericardial effusion. : GIRISH WING Shyamal
[2017-09-03] MEDS: POTASSIUM CHLORIDE 20 MEQ/50 ML RTU IV SCH ×2 (09:16→11:03)
[2017-09-03] MEDS: ENOXAPARIN SODIUM INJ 60 MG/0.6 ML DISP.SYRIN SUBCUT SCH ×2 (09:17→22:31)
[2017-09-03] MEDS: INSULIN LISPRO 100 UNIT/ML 3 ML VIAL SUBCUT PRN ×3 (09:18→17:56)
[2017-09-03] MEDS: FAMOTIDINE INJ/PF 20 MG/2 ML SDV IV SCH ×2 (09:19→22:29)
[2017-09-03] MEDS: MORPHINE SULFATE SR 100 MG TABLET PO SCH ×2 (09:19→22:30)
[2017-09-03] MEDS: DULOXETINE HCL 30 MG CAPSULE.DR PO SCH ×2 (09:19→22:30)
[2017-09-03] MEDS: PREDNISONE 10 MG TABLET PO SCH (09:19)
[2017-09-03] MEDS: SODIUM HYPOCHLORITE 0.25% SOLN 473 ML BOTTLE TP SCH ×2 (09:20→18:00)
--- NOTE | 2017-09-03 09:30 | PDOC CONSULTATION ---
Consultation Consult Date: 09/02/17 Attending physician:: GIRISH WING Consult reason:: A fib History of Present Illness Admission Date/PCP: 08/24/17 16:51 DELROY CROUCH DO Patient complains of: Palpitations History of Present Illness: all information from chart::Mr. Sarbjit Borges is a 51-year-old male who was brought in today by EMS; he had not been seen by the family for 5 days and was found down. The patient is awake now, but not coherent. When EMS found him he was severely hypothermic. He was hyperglycemic. He would only respond to painful stimuli. He was brought into the emergency department his initial temperature was 91F. Patient does have an ostomy. No bag was over the ostomy site. He was covered in stool. The emergency room staff performed a basic exam and while cleaning the patient they noted that he has pus coming out of the right and left groin and scrotal area. This extends around to the buttock on the left side. In addition, the patient appears to have a pressure ulcer from a moy on his back. He also has a linear skin ulceration on the spine at approximately T8 through T11. A consult was placed for surgical evaluation for the drainage from his groins and buttock. The patient cannot give a history but his EHR shows he has severe hidradenitis suppurativa and had a colostomy placed in [place] in 10/12/2014 before he moved down here to aid healing of the perineal wounds related to the hidradenitis.He has a hx of Chron's disease He has been getting wound care at the wound care center here with Dr Teresa and Dr Babin; last visit was June 2017 (2 months ago). This history was reviewed and confirmed. Yesterday patient had a central line placed and at that time he was noted to have atrial fibrillation with rapid ventricular response in the 170s-180s. This was associated with shortness of breath, feeling of panic by the patient and also lowering her blood pressure. Patient was given IV beta-blockers, IV digoxin and IV fluid boluses. This helped his heart rate. Subsequently orders were written for patient to be placed on Cardizem drip. This made his blood pressures more stable and heart rate in the 100-130 range. It was felt that patient may convert spontaneously. A 2D echo was ordered and this was reviewed. Past Medical History Cardiac Medical History: Reports: Myocardial Infarction - NOVEMBER 2014, Hypertension Denies: Coronary Artery Disease Pulmonary Medical History: Reports: Asthma, Pneumonia Denies: Bronchitis, Chronic Obstructive Pulmonary Disease (COPD) Neurological Medical History: Reports: Seizures Endocrine Medical History: Reports: Diabetes Mellitus Type 2 GI Medical History: Reports: Crohn's Disease Musculoskeltal Medical History: Reports: Arthritis Skin Medical History: Reports: Other - RECURRENT CELLULITIS & ABSCESS FORMATION IN PERINEAL, GENITAL, AND GLUTEAL Psychiatric Medical History: Reports: Depression Hematology: Reports: Anemia Past Surgical History Past Surgical History: Reports: Colostomy Social History Information Source: Patient Lives with: Alone Smoking Status: Unknown if Ever Smoked Frequency of Alcohol Use: None Hx Recreational Drug Use: No Hx Prescription Drug Abuse: No - Advance Directive Resuscitation Status: Full Code Surrogate healthcare decision maker:: Not identified by the patient Family History Family History: Other - Crohn's-sister Parental Family History Reviewed: Yes Children Family History Reviewed: Yes Sibling(s) Family History Reviewed.: Yes Medication/Allergy Home Medications: Duloxetine HCl [Cymbalta] 60 mg PO Q12 08/24/17 Gabapentin [Neurontin 300 mg Capsule] 600 mg PO Q8 08/24/17 Insulin Aspart [Novolog Flexpen] 25 unit SQ Q12 08/24/17 Metformin HCl [Glucophage] 1,000 mg PO BIDACBS 08/24/17 Morphine Sulfate [Morphine Sulfate ER] 100 mg PO Q12 08/24/17 Naloxone HCl [Narcan] 1 spray NS ASDIR PRN 08/24/17 Ondansetron HCl [Zofran 8 mg Tablet] 8 mg PO Q8HP PRN 18 Oxycodone HCl [Oxy-Ir 5 mg Tablet] 20 mg PO Q4HP PRN 18 Prednisone [Deltasone 10 mg Tablet] 10 mg PO Q12 08/24/17 Allergies/Adverse Reactions: atropine sulfate [From Lomotil] Allergy (Verified 02/21/17 13:49) diphenoxylate HCl [From Lomotil] Allergy (Verified 02/21/17 13:49) erythromycin base [Erythromycin Base] Allergy (Verified 02/21/17 13:49) paroxetine HCl [From Paxil] Allergy (Verified 02/21/17 13:49) sulfamethoxazole [From Bactrim] Allergy (Verified 02/21/17 13:49) trimethoprim [From Bactrim] Allergy (Verified 02/21/17 13:49) Review of Systems Review of Systems: Please see history of present illness and past medical history as wall. Constitutional: Marked general fatigue and tiredness. Patient was admitted with hypothermia and decreased responsiveness. Head : No recent chronic headaches, recent head injury. Eyes: No recent eye pain, diplopia, redness, discharge, acute visual changes. Ears: No recent chronic ear pain, acute hearing loss, ear discharge. Oral cavity: No recent ulcerations, bleeding, oral cavity discomfort. Neck: No recent acute neck pain reported. Hematologic: No recent easy bruising or bleeding or hematologic malignancy reported. Lymphatic: No recent lymphatic malignancy, chronic lymphadenopathy reported yet Cardiovascular system review: See history of present illness. Respiratory system review: No recent chronic cough, hemoptysis, blood clots in the lungs reported. Shortness of breath on exertion Gastrointestinal system review: Suffers from Crohn's disease with intermittent exacerbation but no hematemesis, melena, recent change in bowel habits. Patient has a colostomy bag. Genitourinary system review: No recent acute or chronic hematuria, flank pain, UTI etc. reported. Skin system review: Patient being treated for skin and subcutaneous tissue infection in the perineal area and also in the back. Neurologic: No prior history of strokes, mini strokes, seizure disorder. Psychologic: No history of major psychosis or major depression reported. Musculoskeletal: Minor aches and pains reported. No acute joint swelling reported. Endocrine: No recent polyuria, polydipsia, recent heat or cold intolerance. Physical Exam Vital Signs: Temp Pulse Resp BP Pulse Ox 99.1 F 96 20 109/70 96 09/02/17 22:00 09/02/17 20:00 09/02/17 19:54 09/02/17 19:42 09/02/17 19:54 Intake & Output 09/01/17 09/02/17 09/03/17 06:59 06:59 06:59 Intake Total 4027 4116 0813 Output Total 7998 0204 2393 Balance -5054 -9297 -924 Weight 58.3 kg 57.8 kg Exam: GENERAL: well-nourished and in no acute distress. Alert and oriented x3 HEAD: Atraumatic, normocephalic. EYES: Pupils equal round and reactive to light, extraocular movements intact, sclera anicteric, conjunctiva are normal. ENT: TMs normal, nares patent, oropharynx clear without exudates. Moist mucous membranes. No oral ulcerations or bleeding gums noted NECK: supple without lymphadenopathy. Trachea is central. No cervical or axillary lymphadenopathy noted. Carotids are 2+, JVD WNL LUNGS: Respiration seems nonlabored, no significant accessory muscle action noted. Breath sounds clear to auscultation bilaterally and equal noted. No wheezes rales or rhonchi noted. No significant dullness noted on percussion. CHEST: Palpation of the chest wall shows no significant chest wall tenderness. No other significant abnormalities noted. HEART: [place] [employer], No PSH, 1/6 JALYN aortic area, 1/6 tinoco systolic murmur mitral area, no rubs, no gallops. ABDOMEN: Soft, no significant tenderness appreciated, normoactive bowel sounds. No guarding, no rebound. No rigidity noted . No masses appreciated. Colostomy bag noted. EXTREMITIES: Pedal pulses are 1-2+, no calf tenderness noted. No clubbing or cyanosis.trace to 1+ pedal edema noted NEUROLOGICAL: Focused neurological exam showed no significant neurologic deficit. Normal speech, no focal weakness appreciated. PSYCH: Normal mood, normal affect. Judgment and insight within normal limits. SKIN: Patient being treated for skin and soft tissue infection in the perineal area and also in the back. MUSCULOSKELETAL EXAM: No significant joint swelling noted. Results Laboratory Results: 09/02/17 17:45 09/02/17 17:45 09/02/17 09/02/17 09/02/17 05:40 05:40 05:40 WBC 20.7 H RBC 3.48 L Hgb 8.8 L Hct 26.7 L MCV 77 L MCH 25.2 L MCHC 32.9 RDW 17.8 H Plt Count 424 Seg Neutrophils % Not Reportable Lymphocytes % Not Reportable Monocytes % Not Reportable Eosinophils % Not Reportable Basophils % Not Reportable Absolute Neutrophils Not Reportable Absolute Lymphocytes Not Reportable Absolute Monocytes Not Reportable Absolute Eosinophils Not Reportable Absolute Basophils Not Reportable Carbonic Acid 1.03 L HCO3/H2CO3 Ratio 30:1 ABG pH 7.58 H ABG pCO2 34.2 L ABG pO2 73.5 L ABG HCO3 31.6 H ABG O2 Saturation 96.7 ABG Base Excess 9.3 FiO2 40% Sodium 135.1 L Potassium 3.4 L Chloride 98 Carbon Dioxide 30 Anion Gap 7 BUN 6 L Creatinine 0.40 L Est GFR ( Amer) > 60 Est GFR (Non-Af Amer) > 60 Glucose 195 H Calcium 7.7 L Magnesium 1.7 Total Bilirubin 0.4 AST 25 ALT 22 Alkaline Phosphatase 550 H Total Protein 5.5 L Albumin 2.4 L Urine Color Urine Appearance Urine pH Ur Specific [place] Urine Protein Urine Glucose (UA) Urine Ketones Urine Blood Urine Nitrite Ur Leukocyte Esterase Urine WBC (Auto) Urine RBC (Auto) 09/02/17 09/02/17 09/02/17 09:17 11:03 17:45 WBC RBC Hgb Hct MCV MCH MCHC RDW Plt Count Seg Neutrophils % Lymphocytes % Monocytes % Eosinophils % Basophils % Absolute Neutrophils Absolute Lymphocytes Absolute Monocytes Absolute Eosinophils Absolute Basophils Carbonic Acid HCO3/H2CO3 Ratio ABG pH ABG pCO2 ABG pO2 ABG HCO3 ABG O2 Saturation ABG Base Excess FiO2 Sodium 134.4 L Potassium 4.0 3.8 Chloride 96 L Carbon Dioxide 32 H Anion Gap 6 BUN 4 L Creatinine 0.51 L Est GFR ( Amer) > 60 Est GFR (Non-Af Amer) > 60 Glucose 221 H 228 H Calcium 7.6 L Magnesium Total Bilirubin 0.3 AST 15 L ALT 24 Alkaline Phosphatase 482 H Total Protein 5.0 L Albumin 2.1 L Urine Color YELLOW Urine Appearance CLEAR Urine pH 7.0 Ur Specific [place] 1.010 Urine Protein NEGATIVE Urine Glucose (UA) 50 H Urine Ketones NEGATIVE Urine Blood NEGATIVE Urine Nitrite NEGATIVE Ur Leukocyte Esterase NEGATIVE Urine WBC (Auto) 2 Urine RBC (Auto) 1 09/02/17 17:45 WBC 19.9 H RBC 3.30 L Hgb 8.3 L Hct 25.8 L MCV 78 L MCH 25.2 L MCHC 32.3 RDW 18.1 H Plt Count 440 Seg Neutrophils % 72.5 Lymphocytes % 20.1 Monocytes % 6.0 Eosinophils % 1.1 Basophils % 0.3 Absolute Neutrophils 14.4 H Absolute Lymphocytes 4.0 Absolute Monocytes 1.2 Absolute Eosinophils 0.2 Absolute Basophils 0.1 Carbonic Acid HCO3/H2CO3 Ratio ABG pH ABG pCO2 ABG pO2 ABG HCO3 ABG O2 Saturation ABG Base Excess FiO2 Sodium Potassium Chloride Carbon Dioxide Anion Gap BUN Creatinine Est GFR ( Amer) Est GFR (Non-Af Amer) Glucose Calcium Magnesium Total Bilirubin AST ALT Alkaline Phosphatase Total Protein Albumin Urine Color Urine Appearance Urine pH Ur Specific [place] Urine Protein Urine Glucose (UA) Urine Ketones Urine Blood Urine Nitrite Ur Leukocyte Esterase Urine WBC (Auto) Urine RBC (Auto) 08/24/17 08/24/17 08/25/17 18:00 22:00 05:15 Creatine Kinase 140 117 82 CK-MB (CK-2) Troponin I 09/02/17 09/02/17 17:45 17:45 Creatine Kinase 50 L CK-MB (CK-2) 0.40 Troponin I 0.027 EKG Comments: Twelve-lead EKG shows sinus rhythm with mild tachycardia and nonspecific T-wave changes, no acute ST-T wave changes noted. EKG today shows atrial fibrillation with rapid ventricular response. No acute ST-T wave changes noted. Impressions: Thoracic Spine CT 08/26/17 08:00 IMPRESSION: No acute findings in the thoracic spine. Abdomen/Pelvis CT 08/27/17 00:00 IMPRESSION: 1. Extensive basilar pulmonary changes suggesting pneumonia. 2. No evidence of intra- abdominal or intrapelvic abscess or drainable collection. Postoperative changes as above without evidence of mechanical bowel obstruction. 3. Marked irregular soft tissue loss in the proximal left posterior and medial thigh, incompletely assessed. No suggestion of regional drainable collection as imaged. Chest X-Ray 09/02/17 17:29 IMPRESSION: No pneumothorax post right jugular central line placement. Assessment & Plan - Diagnosis (1) Atrial fibrillation with rapid ventricular response Is this a current diagnosis for this admission?: Yes (2) Diabetes mellitus Qualifiers: Diabetes mellitus type: type 1 Diabetes mellitus complication status: with unspecified complications Qualified Code(s): E10.8 - Type 1 diabetes mellitus with unspecified complications Is this a current diagnosis for this admission?: Yes (3) Crohns disease Qualifiers: Gastrointestinal tract location: unspecified location Is this a current diagnosis for this admission?: Yes (4) Acute respiratory failure with hypoxia Is this a current diagnosis for this admission?: Yes (5) Diabetic keto-acidosis Qualifiers: Diabetes mellitus type: type 1 Diabetes mellitus complication detail: without coma Qualified Code(s): E10.10 - Type 1 diabetes mellitus with ketoacidosis without coma Is this a current diagnosis for this admission?: Yes (6) Sepsis Qualifiers: Sepsis type: sepsis due to unspecified organism Qualified Code(s): A41.9 - Sepsis, unspecified organism Is this a current diagnosis for this admission?: Yes - Notes Notes: Atrial fibrillation with rapid ventricular response: Patient to be treated with IV digoxin, IV beta-sergey as needed, Cardizem drip. May need to consider IV amiodarone if blood pressure becomes a problem. Twelve-lead EKG fortunately not showing any acute ST-T wave changes and patient denying any chest pain. Diabetes: Patient had presented with diabetic ketoacidosis but currently under satisfactory control. Crohn's disease: We will leave management to light adjuster. Acute respiratory failure with hypoxemia: Exact etiology not clear. Patient however currently extubated. He is now on oxygen supplementation and maintaining good oxygenation. Diabetic ketoacidosis: Resolved Sepsis: Continue antibiotic therapy. Will leave management to light adjuster. A 2D echo was ordered and will be reviewed when available. Preliminary report shows normal LVEF. - Time Time Spent: 30 to 50 Minutes - CODE STATUS was discussed, patient remains full code. Surrogate decision-maker not identified. Multiple medical problems were addressed. More than 50% of the time spent coordinating care, discussing management plans with involved caregivers. Management plans discussed with involved personnels. Medical decision making was of moderate to high complexity , patient's has multiple comorbidities. Medications reviewed and adjusted accordingly: Yes
--- NOTE | 2017-09-03 09:35 | PDOC PROGRESS REPORT ---
Subjective Progress Note for:: 09/03/17 Subjective:: Patient seems to be doing better improvement. Patient today maintaining sinus rhythm. Pt is denying any chest arm or neck discomfort. Patient denying any PND, orthopnea. Patient denied any sustained palpitations, dizziness, syncope, near syncope. Patient denying any fever chills. Patient denying any other significant discomfort. Patient is maintaining sinus rhythm. Review of systems: Rest review of systems negative. Medications: Medications have been reviewed. Reason For Visit: DKA, SEPSIS Physical Exam Vital Signs: Temp Pulse Resp BP Pulse Ox 98.4 F 104 H 20 106/73 94 09/03/17 08:00 09/03/17 06:00 09/03/17 06:43 09/03/17 06:43 09/03/17 06:43 Intake & Output 09/02/17 09/03/17 09/04/17 06:59 06:59 06:59 Intake Total 2652 3650 Output Total 3750 5410 120 Balance -1098 -1760 -120 Weight 57.8 kg 54.7 kg Exam: GENERAL: Thin built and in no acute distress. Alert and oriented x3, seems very anxious. HEAD: Atraumatic, normocephalic. EYES: Pupils equal round and reactive to light, extraocular movements intact, sclera anicteric, conjunctiva are normal. ENT: TMs normal, nares patent, oropharynx clear without exudates. Moist mucous membranes. No oral ulcerations or bleeding gums noted NECK: supple without lymphadenopathy. Trachea is central. No cervical or axillary lymphadenopathy noted. Carotids are 2+, JVD WNL LUNGS: Respiration seems nonlabored, no significant accessory muscle action noted. Breath sounds clear to auscultation bilaterally and equal noted. No wheezes rales or rhonchi noted. No significant dullness noted on percussion. CHEST: Palpation of the chest wall shows no significant chest wall tenderness. No other significant abnormalities noted. HEART: [place] [employer] HAND, No PSH, 1/6 JALYN aortic area, 1/6 [place] systolic murmur mitral area, no rubs, no gallops. ABDOMEN: Soft, no significant tenderness appreciated, normoactive bowel sounds. No guarding, no rebound. No rigidity noted . No masses appreciated. Colostomy bag noted. EXTREMITIES: Pedal pulses are 1-2+, no calf tenderness noted. No clubbing or cyanosis.trace to 1+ pedal edema noted NEUROLOGICAL: Focused neurological exam showed no significant neurologic deficit. Normal speech, no focal weakness appreciated. PSYCH: Normal mood, normal affect. Judgment and insight within normal limits. SKIN: Patient being treated for skin and soft tissue infection in the perineal area and also in the back. MUSCULOSKELETAL EXAM: No significant joint swelling noted. Results Laboratory Results: 09/03/17 05:35 09/03/17 05:35 09/02/17 09/02/17 09/02/17 09:17 11:03 17:45 WBC RBC Hgb Hct MCV MCH MCHC RDW Plt Count Seg Neutrophils % Lymphocytes % Monocytes % Eosinophils % Basophils % Absolute Neutrophils Absolute Lymphocytes Absolute Monocytes Absolute Eosinophils Absolute Basophils Carbonic Acid HCO3/H2CO3 Ratio ABG pH ABG pCO2 ABG pO2 ABG HCO3 ABG O2 Saturation ABG Base Excess FiO2 Sodium 134.4 L Potassium 4.0 3.8 Chloride 96 L Carbon Dioxide 32 H Anion Gap 6 BUN 4 L Creatinine 0.51 L Est GFR ( Amer) > 60 Est GFR (Non-Af Amer) > 60 Glucose 221 H 228 H Calcium 7.6 L Magnesium Total Bilirubin 0.3 AST 15 L ALT 24 Alkaline Phosphatase 482 H Total Protein 5.0 L Albumin 2.1 L Urine Color YELLOW Urine Appearance CLEAR Urine pH 7.0 Ur Specific [place] 1.010 Urine Protein NEGATIVE Urine Glucose (UA) 50 H Urine Ketones NEGATIVE Urine Blood NEGATIVE Urine Nitrite NEGATIVE Ur Leukocyte Esterase NEGATIVE Urine WBC (Auto) 2 Urine RBC (Auto) 1 09/02/17 09/03/17 09/03/17 17:45 05:35 05:35 WBC 19.9 H 24.7 H RBC 3.30 L 3.74 L Hgb 8.3 L 9.4 L Hct 25.8 L 29.1 L MCV 78 L 78 L MCH 25.2 L 25.1 L MCHC 32.3 32.3 RDW 18.1 H 17.8 H Plt Count 440 522 H Seg Neutrophils % 72.5 Not Reportable Lymphocytes % 20.1 Not Reportable Monocytes % 6.0 Not Reportable Eosinophils % 1.1 Not Reportable Basophils % 0.3 Not Reportable Absolute Neutrophils 14.4 H Not Reportable Absolute Lymphocytes 4.0 Not Reportable Absolute Monocytes 1.2 Not Reportable Absolute Eosinophils 0.2 Not Reportable Absolute Basophils 0.1 Not Reportable Carbonic Acid 1.38 H HCO3/H2CO3 Ratio 25:1 ABG pH 7.50 H ABG pCO2 46.0 H ABG pO2 76.2 L ABG HCO3 34.9 H ABG O2 Saturation 96.1 ABG Base Excess 10.6 FiO2 2L Sodium Potassium Chloride Carbon Dioxide Anion Gap BUN Creatinine Est GFR ( Amer) Est GFR (Non-Af Amer) Glucose Calcium Magnesium Total Bilirubin AST ALT Alkaline Phosphatase Total Protein Albumin Urine Color Urine Appearance Urine pH Ur Specific [place] Urine Protein Urine Glucose (UA) Urine Ketones Urine Blood Urine Nitrite Ur Leukocyte Esterase Urine WBC (Auto) Urine RBC (Auto) 09/03/17 05:35 WBC RBC Hgb Hct MCV MCH MCHC RDW Plt Count Seg Neutrophils % Lymphocytes % Monocytes % Eosinophils % Basophils % Absolute Neutrophils Absolute Lymphocytes Absolute Monocytes Absolute Eosinophils Absolute Basophils Carbonic Acid HCO3/H2CO3 Ratio ABG pH ABG pCO2 ABG pO2 ABG HCO3 ABG O2 Saturation ABG Base Excess FiO2 Sodium 137.1 Potassium 3.1 L Chloride 94 L Carbon Dioxide 33 H Anion Gap 10 BUN 2 L Creatinine 0.45 L Est GFR ( Amer) > 60 Est GFR (Non-Af Amer) > 60 Glucose 175 H Calcium 8.1 L Magnesium 1.8 Total Bilirubin 0.2 AST 16 L ALT 21 Alkaline Phosphatase 523 H Total Protein 5.5 L Albumin 2.6 L Urine Color Urine Appearance Urine pH Ur Specific [place] Urine Protein Urine Glucose (UA) Urine Ketones Urine Blood Urine Nitrite Ur Leukocyte Esterase Urine WBC (Auto) Urine RBC (Auto) 08/24/17 08/24/17 08/25/17 18:00 22:00 05:15 Creatine Kinase 140 117 82 CK-MB (CK-2) Troponin I NT-Pro-B Natriuret Pep 09/02/17 09/02/17 09/03/17 17:45 17:45 05:35 Creatine Kinase 50 L CK-MB (CK-2) 0.40 Troponin I 0.027 NT-Pro-B Natriuret Pep 4690 H EKG Comments: Telemetry strips shows sinus rhythm. Impressions: Thoracic Spine CT 08/26/17 08:00 IMPRESSION: No acute findings in the thoracic spine. Abdomen/Pelvis CT 08/27/17 00:00 IMPRESSION: 1. Extensive basilar pulmonary changes suggesting pneumonia. 2. No evidence of intra- abdominal or intrapelvic abscess or drainable collection. Postoperative changes as above without evidence of mechanical bowel obstruction. 3. Marked irregular soft tissue loss in the proximal left posterior and medial thigh, incompletely assessed. No suggestion of regional drainable collection as imaged. Chest X-Ray 09/03/17 06:00 IMPRESSION: 1. Interval removal of left IJ central venous catheter. Otherwise stable appearance of the chest with persistent patchy bibasilar opacity. Assessment & Plan - Diagnosis (1) Atrial fibrillation with rapid ventricular response Is this a current diagnosis for this admission?: Yes (2) Diabetes mellitus Qualifiers: Diabetes mellitus type: type 1 Diabetes mellitus complication status: with unspecified complications Qualified Code(s): E10.8 - Type 1 diabetes mellitus with unspecified complications Is this a current diagnosis for this admission?: Yes (3) Sepsis Qualifiers: Sepsis type: sepsis due to unspecified organism Qualified Code(s): A41.9 - Sepsis, unspecified organism Is this a current diagnosis for this admission?: Yes (4) Anemia, chronic disease Is this a current diagnosis for this admission?: Yes (5) Malnutrition of moderate degree Is this a current diagnosis for this admission?: Yes - Notes Notes: Orders written to start digoxin and Cardizem. 2D echo results reviewed. Chart reviewed. Atrial fibrillation with rapid ventricular response: Patient has converted to sinus rhythm. Patient does have some mild sinus tachycardia and probably related to metabolic causes. May consider beta 1 selective agent or Cardizem. 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 Sepsis: Possibly secondary to skin infection continued. Continue antibiotic therapy Anemia: Maintain hemoglobin above 8 g percent. Currently stable. Malnutrition: Currently being improved by improving nutrition. Elevated BNP level: Most likely related to atrial fibrillation causing diastolic dysfunction and atrial stretch. Clinically did not see much volume expansion. - Time Time with patient: Greater than 35 minutes - 2D echo results reviewed. Management plans reviewed. CODE STATUS was discussed, patient remains full code. Surrogate decision-maker unchanged. Multiple medical problems were addressed. More than 50% of the time spent coordinating care, discussing management plans with involved caregivers. Management plans discussed with involved personnels. Medical decision making was of moderate to high complexity , patient's has multiple comorbidities. Medications reviewed and adjusted accordingly: Yes
[2017-09-03] MEDS: DILTIAZEM HCL 30 MG TABLET PO SCH ×2 (11:12→17:59)
[2017-09-03] MEDS: DIGOXIN 0.125 MG TABLET PO SCH (11:12)
--- NOTE | 2017-09-03 12:32 | PDOC PROGRESS REPORT ---
Subjective Progress Note for:: 08/31/17 Subjective:: intubated and lethargic Reason For Visit: DKA, SEPSIS Physical Exam Vital Signs: Temp Pulse Resp BP Pulse Ox 99.9 F 120 H 17 118/78 95 09/02/17 06:00 09/02/17 08:25 09/02/17 08:25 09/02/17 06:08 09/02/17 08:25 Intake & Output 09/01/17 09/02/17 09/03/17 06:59 06:59 06:59 Intake Total 3953 2652 Output Total 5581 5550 Balance -1577 -5996 Weight 58.3 kg 57.8 kg General appearance: PRESENT: no acute distress, disheveled, thin. ABSENT: morbidly obese, obese Head exam: PRESENT: atraumatic, normocephalic Eye exam: PRESENT: conjunctiva pale, EOMI. ABSENT: nystagmus, periorbital swelling, scleral icterus Mouth exam: PRESENT: dry mucosa, neck supple, tongue midline, other Teeth exam: PRESENT: poor dentation Neck exam: ABSENT: carotid bruit, JVD, lymphadenopathy, thyromegaly, tracheal deviation, tracheostomy Respiratory exam: PRESENT: decreased breath sounds, prolonged expiratory phas, rhonchi, symmetrical, unlabored, wheezes. ABSENT: retraction, stridor, tachypnea Cardiovascular exam: PRESENT: RRR, +S1, +S2 Pulses: PRESENT: normal radial pulses GI/Abdominal exam: PRESENT: diminished bowel sounds, soft, other Extremities exam: ABSENT: calf tenderness, clubbing Musculoskeletal exam: ABSENT: deformity, dislocation Neurological exam: PRESENT: awake, oriented to person Psychiatric exam: PRESENT: flat affect Skin exam: PRESENT: other - ET tube ostomy bag draining stool multiple inguinal perineal and sacral lesions Results Laboratory Results: 09/02/17 05:40 09/02/17 05:40 09/02/17 09/02/17 09/02/17 05:40 05:40 05:40 WBC 20.7 H RBC 3.48 L Hgb 8.8 L Hct 26.7 L MCV 77 L MCH 25.2 L MCHC 32.9 RDW 17.8 H Plt Count 424 Seg Neutrophils % Not Reportable Lymphocytes % Not Reportable Monocytes % Not Reportable Eosinophils % Not Reportable Basophils % Not Reportable Absolute Neutrophils Not Reportable Absolute Lymphocytes Not Reportable Absolute Monocytes Not Reportable Absolute Eosinophils Not Reportable Absolute Basophils Not Reportable Carbonic Acid 1.03 L HCO3/H2CO3 Ratio 30:1 ABG pH 7.58 H ABG pCO2 34.2 L ABG pO2 73.5 L ABG HCO3 31.6 H ABG O2 Saturation 96.7 ABG Base Excess 9.3 FiO2 40% Sodium 135.1 L Potassium 3.4 L Chloride 98 Carbon Dioxide 30 Anion Gap 7 BUN 6 L Creatinine 0.40 L Est GFR ( Amer) > 60 Est GFR (Non-Af Amer) > 60 Glucose 195 H Calcium 7.7 L Magnesium 1.7 Total Bilirubin 0.4 AST 25 ALT 22 Alkaline Phosphatase 550 H Total Protein 5.5 L Albumin 2.4 L 08/27/17 18:20 Blood Blood Culture - Final NO GROWTH IN 5 DAYS 08/27/17 18:16 Blood Blood Culture - Final NO GROWTH IN 5 DAYS 08/24/17 08/24/17 08/25/17 18:00 22:00 05:15 Creatine Kinase 140 117 82 Impressions: Thoracic Spine CT 08/26/17 08:00 IMPRESSION: No acute findings in the thoracic spine. Abdomen/Pelvis CT 08/27/17 00:00 IMPRESSION: 1. Extensive basilar pulmonary changes suggesting pneumonia. 2. No evidence of intra- abdominal or intrapelvic abscess or drainable collection. Postoperative changes as above without evidence of mechanical bowel obstruction. 3. Marked irregular soft tissue loss in the proximal left posterior and medial thigh, incompletely assessed. No suggestion of regional drainable collection as imaged. Chest X-Ray 09/02/17 06:00 IMPRESSION: Interval decrease or improvement in bibasilar infiltrates. Assessment & Plan - Diagnosis (1) Abscess or cellulitis of perineum Is this a current diagnosis for this admission?: Yes Plan: patient scheduled for 2nd surgical debredment (2) Acute respiratory failure with hypoxia Is this a current diagnosis for this admission?: Yes Plan: Improving (3) Diabetic keto-acidosis Qualifiers: Diabetes mellitus type: type 1 Diabetes mellitus complication detail: without coma Qualified Code(s): E10.10 - Type 1 diabetes mellitus with ketoacidosis without coma Is this a current diagnosis for this admission?: Yes Plan: Labs- All tests 24 hr 08/24/17 08/25/17 09/02/17 15:33 21:15 09:17 Urine Ketones 80 H NEGATIVE NEGATIVE (4) Septic shock Is this a current diagnosis for this admission?: Yes Plan: vol repletion LR and vaspressor 08/25/17 18:30 Gram Stain - Preliminary Groin - Abscess Wound Culture - Preliminary Corynebacterium Species Gram Positive Cocci In Pairs Gram Negative Rods 08/25/17 09:25 Gram Stain - Final Tracheal Aspirate Sputum Culture - Final Mrsa (Meth Resis Staph Aureus) C.albicans/C.dubliniensis Normal [place] Absent 08/24/17 20:52 Gram Stain - Final Buttocks - Abscess Wound Culture - Final Bacteroides Fragilis Group Corynebacterium Striatum Staphylococcus Epidermidis 08/24/17 20:48 Gram Stain - Final Buttocks - Abscess Wound Culture - Preliminary Bacteroides Fragilis Group Corynebacterium Species Gram Positive Cocci Clusters 08/24/17 14:59 Gram Stain - Final Perineum Wound Culture - Preliminary Corynebacterium Species Gram Positive Cocci In Pairs Bacteroides Fragilis Group 08/24/17 14:59 Blood Culture - Preliminary Blood NO GROWTH 4 DAYS 08/24/17 14:59 Blood Culture - Final Blood Corynebacterium Striatum (5) Malnutrition of moderate degree Is this a current diagnosis for this admission?: Yes (6) Tobacco abuse Is this a current diagnosis for this admission?: Yes - Time Total Critical Time (Minutes): 45
--- NOTE | 2017-09-03 12:34 | PDOC PROGRESS REPORT ---
Subjective Progress Note for:: 09/01/17 Subjective:: intubated and lethargic Reason For Visit: DKA, SEPSIS Physical Exam Vital Signs: Temp Pulse Resp BP Pulse Ox 99.9 F 120 H 17 118/78 95 09/02/17 06:00 09/02/17 08:25 09/02/17 08:25 09/02/17 06:08 09/02/17 08:25 Intake & Output 09/01/17 09/02/17 09/03/17 06:59 06:59 06:59 Intake Total 3956 2652 Output Total 5550 9713 Balance -1577 -8523 Weight 58.3 kg 57.8 kg General appearance: PRESENT: no acute distress, disheveled, thin, well-developed Head exam: PRESENT: atraumatic, normocephalic Eye exam: PRESENT: conjunctiva pale, EOMI. ABSENT: nystagmus, periorbital swelling, scleral icterus Mouth exam: PRESENT: dry mucosa, neck supple, tongue midline, other - ET tube in place Neck exam: ABSENT: carotid bruit, JVD, lymphadenopathy, thyromegaly, tracheal deviation, tracheostomy Respiratory exam: PRESENT: decreased breath sounds, prolonged expiratory phas, rales, rhonchi, symmetrical, unlabored, wheezes. ABSENT: retraction, stridor Cardiovascular exam: PRESENT: RRR, +S1, +S2 Pulses: PRESENT: normal radial pulses GI/Abdominal exam: PRESENT: diminished bowel sounds, soft Gentrourinary exam: PRESENT: indwelling catheter Extremities exam: ABSENT: clubbing Musculoskeletal exam: ABSENT: deformity, dislocation Neurological exam: PRESENT: awake, oriented to person. ABSENT: oriented to place, oriented to time Skin exam: PRESENT: dry, other - Multiple areas of inguinal, perineal and sacral wounds Results Laboratory Results: 09/02/17 05:40 09/02/17 05:40 09/02/17 09/02/17 09/02/17 05:40 05:40 05:40 WBC 20.7 H RBC 3.48 L Hgb 8.8 L Hct 26.7 L MCV 77 L MCH 25.2 L MCHC 32.9 RDW 17.8 H Plt Count 424 Seg Neutrophils % Not Reportable Lymphocytes % Not Reportable Monocytes % Not Reportable Eosinophils % Not Reportable Basophils % Not Reportable Absolute Neutrophils Not Reportable Absolute Lymphocytes Not Reportable Absolute Monocytes Not Reportable Absolute Eosinophils Not Reportable Absolute Basophils Not Reportable Carbonic Acid 1.03 L HCO3/H2CO3 Ratio 30:1 ABG pH 7.58 H ABG pCO2 34.2 L ABG pO2 73.5 L ABG HCO3 31.6 H ABG O2 Saturation 96.7 ABG Base Excess 9.3 FiO2 40% Sodium 135.1 L Potassium 3.4 L Chloride 98 Carbon Dioxide 30 Anion Gap 7 BUN 6 L Creatinine 0.40 L Est GFR ( Amer) > 60 Est GFR (Non-Af Amer) > 60 Glucose 195 H Calcium 7.7 L Magnesium 1.7 Total Bilirubin 0.4 AST 25 ALT 22 Alkaline Phosphatase 550 H Total Protein 5.5 L Albumin 2.4 L 08/27/17 18:20 Blood Blood Culture - Final NO GROWTH IN 5 DAYS 08/27/17 18:16 Blood Blood Culture - Final NO GROWTH IN 5 DAYS 08/24/17 08/24/17 08/25/17 18:00 22:00 05:15 Creatine Kinase 140 117 82 Impressions: Thoracic Spine CT 08/26/17 08:00 IMPRESSION: No acute findings in the thoracic spine. Abdomen/Pelvis CT 08/27/17 00:00 IMPRESSION: 1. Extensive basilar pulmonary changes suggesting pneumonia. 2. No evidence of intra- abdominal or intrapelvic abscess or drainable collection. Postoperative changes as above without evidence of mechanical bowel obstruction. 3. Marked irregular soft tissue loss in the proximal left posterior and medial thigh, incompletely assessed. No suggestion of regional drainable collection as imaged. Chest X-Ray 09/02/17 06:00 IMPRESSION: Interval decrease or improvement in bibasilar infiltrates. Assessment & Plan - Diagnosis (1) Abscess or cellulitis of perineum Is this a current diagnosis for this admission?: Yes Plan: patient scheduled for 2nd surgical debredment (2) Acute respiratory failure with hypoxia Is this a current diagnosis for this admission?: Yes Plan: Improving (3) Diabetic keto-acidosis Qualifiers: Diabetes mellitus type: type 1 Diabetes mellitus complication detail: without coma Qualified Code(s): E10.10 - Type 1 diabetes mellitus with ketoacidosis without coma Is this a current diagnosis for this admission?: Yes Plan: Labs- All tests 24 hr 08/24/17 08/25/17 09/02/17 15:33 21:15 09:17 Urine Ketones 80 H NEGATIVE NEGATIVE (4) Septic shock Is this a current diagnosis for this admission?: Yes Plan: vol repletion LR and vaspressor 08/25/17 18:30 Gram Stain - Preliminary Groin - Abscess Wound Culture - Preliminary Corynebacterium Species Gram Positive Cocci In Pairs Gram Negative Rods 08/25/17 09:25 Gram Stain - Final Tracheal Aspirate Sputum Culture - Final Mrsa (Meth Resis Staph Aureus) C.albicans/C.dubliniensis Normal [place] Absent 08/24/17 20:52 Gram Stain - Final Buttocks - Abscess Wound Culture - Final Bacteroides Fragilis Group Corynebacterium Striatum Staphylococcus Epidermidis 08/24/17 20:48 Gram Stain - Final Buttocks - Abscess Wound Culture - Preliminary Bacteroides Fragilis Group Corynebacterium Species Gram Positive Cocci Clusters 08/24/17 14:59 Gram Stain - Final Perineum Wound Culture - Preliminary Corynebacterium Species Gram Positive Cocci In Pairs Bacteroides Fragilis Group 08/24/17 14:59 Blood Culture - Preliminary Blood NO GROWTH 4 DAYS 08/24/17 14:59 Blood Culture - Final Blood Corynebacterium Striatum (5) Malnutrition of moderate degree Is this a current diagnosis for this admission?: Yes Plan: enteral nutrition as tolerated (6) Tobacco abuse Is this a current diagnosis for this admission?: Yes Plan: transdermal nicotene - Time Total Critical Time (Minutes): 40
--- NOTE | 2017-09-03 12:38 | PDOC PROGRESS REPORT ---
Subjective Progress Note for:: 09/02/17 Subjective:: intubated and awake more responsive Reason For Visit: DKA, SEPSIS Physical Exam Vital Signs: Temp Pulse Resp BP Pulse Ox 99.9 F 120 H 17 118/78 95 09/02/17 06:00 09/02/17 08:25 09/02/17 08:25 09/02/17 06:08 09/02/17 08:25 Intake & Output 09/01/17 09/02/17 09/03/17 06:59 06:59 06:59 Intake Total 3959 2652 Output Total 5552 2602 Balance -1577 -7087 Weight 58.3 kg 57.8 kg General appearance: PRESENT: no acute distress, cooperative, disheveled, thin, well-developed Head exam: PRESENT: atraumatic, normocephalic Eye exam: PRESENT: conjunctiva pale, EOMI. ABSENT: nystagmus, periorbital swelling, scleral icterus Mouth exam: PRESENT: dry mucosa, neck supple, tongue midline, other - ET tube Neck exam: ABSENT: carotid bruit, JVD, lymphadenopathy, thyromegaly, tracheal deviation, tracheostomy Respiratory exam: PRESENT: decreased breath sounds, prolonged expiratory phas, rales, rhonchi, symmetrical, unlabored, wheezes. ABSENT: retraction, stridor, tachypnea Cardiovascular exam: PRESENT: RRR, +S1, +S2. ABSENT: tachycardia Pulses: PRESENT: normal radial pulses GI/Abdominal exam: PRESENT: diminished bowel sounds, other - colostomy bag. Gentrourinary exam: PRESENT: indwelling catheter Extremities exam: ABSENT: calf tenderness, clubbing, joint swelling Musculoskeletal exam: ABSENT: deformity, dislocation Neurological exam: PRESENT: alert, awake, oriented to person Psychiatric exam: PRESENT: flat affect Skin exam: PRESENT: other - Multiple inguinal, perineal sacral lesion Results Laboratory Results: 09/02/17 05:40 09/02/17 05:40 09/02/17 09/02/17 09/02/17 05:40 05:40 05:40 WBC 20.7 H RBC 3.48 L Hgb 8.8 L Hct 26.7 L MCV 77 L MCH 25.2 L MCHC 32.9 RDW 17.8 H Plt Count 424 Seg Neutrophils % Not Reportable Lymphocytes % Not Reportable Monocytes % Not Reportable Eosinophils % Not Reportable Basophils % Not Reportable Absolute Neutrophils Not Reportable Absolute Lymphocytes Not Reportable Absolute Monocytes Not Reportable Absolute Eosinophils Not Reportable Absolute Basophils Not Reportable Carbonic Acid 1.03 L HCO3/H2CO3 Ratio 30:1 ABG pH 7.58 H ABG pCO2 34.2 L ABG pO2 73.5 L ABG HCO3 31.6 H ABG O2 Saturation 96.7 ABG Base Excess 9.3 FiO2 40% Sodium 135.1 L Potassium 3.4 L Chloride 98 Carbon Dioxide 30 Anion Gap 7 BUN 6 L Creatinine 0.40 L Est GFR ( Amer) > 60 Est GFR (Non-Af Amer) > 60 Glucose 195 H Calcium 7.7 L Magnesium 1.7 Total Bilirubin 0.4 AST 25 ALT 22 Alkaline Phosphatase 550 H Total Protein 5.5 L Albumin 2.4 L 08/27/17 18:20 Blood Blood Culture - Final NO GROWTH IN 5 DAYS 08/27/17 18:16 Blood Blood Culture - Final NO GROWTH IN 5 DAYS 08/24/17 08/24/17 08/25/17 18:00 22:00 05:15 Creatine Kinase 140 117 82 Impressions: Thoracic Spine CT 08/26/17 08:00 IMPRESSION: No acute findings in the thoracic spine. Abdomen/Pelvis CT 08/27/17 00:00 IMPRESSION: 1. Extensive basilar pulmonary changes suggesting pneumonia. 2. No evidence of intra- abdominal or intrapelvic abscess or drainable collection. Postoperative changes as above without evidence of mechanical bowel obstruction. 3. Marked irregular soft tissue loss in the proximal left posterior and medial thigh, incompletely assessed. No suggestion of regional drainable collection as imaged. Chest X-Ray 09/02/17 06:00 IMPRESSION: Interval decrease or improvement in bibasilar infiltrates. Assessment & Plan - Diagnosis (1) Abscess or cellulitis of perineum Is this a current diagnosis for this admission?: Yes Plan: patient scheduled for 2nd surgical debredment (2) Acute respiratory failure with hypoxia Is this a current diagnosis for this admission?: Yes Plan: Respiratory rate, FiO2, minute ventilation, stable will proceed with extubation (3) Diabetic keto-acidosis Qualifiers: Diabetes mellitus type: type 1 Diabetes mellitus complication detail: without coma Qualified Code(s): E10.10 - Type 1 diabetes mellitus with ketoacidosis without coma Is this a current diagnosis for this admission?: Yes Plan: Labs- All tests 24 hr 08/24/17 08/25/17 09/02/17 15:33 21:15 09:17 Urine Ketones 80 H NEGATIVE NEGATIVE (4) Septic shock Is this a current diagnosis for this admission?: Yes Plan: vol repletion LR and vaspressor 08/25/17 18:30 Gram Stain - Preliminary Groin - Abscess Wound Culture - Preliminary Corynebacterium Species Gram Positive Cocci In Pairs Gram Negative Rods 08/25/17 09:25 Gram Stain - Final Tracheal Aspirate Sputum Culture - Final Mrsa (Meth Resis Staph Aureus) C.albicans/C.dubliniensis Normal [place] Absent 08/24/17 20:52 Gram Stain - Final Buttocks - Abscess Wound Culture - Final Bacteroides Fragilis Group Corynebacterium Striatum Staphylococcus Epidermidis 08/24/17 20:48 Gram Stain - Final Buttocks - Abscess Wound Culture - Preliminary Bacteroides Fragilis Group Corynebacterium Species Gram Positive Cocci Clusters 08/24/17 14:59 Gram Stain - Final Perineum Wound Culture - Preliminary Corynebacterium Species Gram Positive Cocci In Pairs Bacteroides Fragilis Group 08/24/17 14:59 Blood Culture - Preliminary Blood NO GROWTH 4 DAYS 08/24/17 14:59 Blood Culture - Final Blood Corynebacterium Striatum (5) Malnutrition of moderate degree Is this a current diagnosis for this admission?: Yes Plan: enteral nutrition as tolerated (6) Tobacco abuse Is this a current diagnosis for this admission?: Yes - Time Total Critical Time (Minutes): 55
--- NOTE | 2017-09-03 12:42 | PDOC PROGRESS REPORT ---
Subjective Progress Note for:: 09/03/17 Subjective:: Awake 24 hours status post extubation doing well Reason For Visit: DKA, SEPSIS Physical Exam Vital Signs: Temp Pulse Resp BP Pulse Ox 98.4 F 104 H 20 106/73 94 09/03/17 10:00 09/03/17 06:00 09/03/17 06:43 09/03/17 06:43 09/03/17 06:43 Intake & Output 09/02/17 09/03/17 09/04/17 06:59 06:59 06:59 Intake Total 2652 3650 Output Total 3750 5410 370 Balance -1098 -1760 -370 Weight 57.8 kg 54.7 kg General appearance: PRESENT: no acute distress, cooperative, disheveled, thin, well-developed Head exam: PRESENT: atraumatic, normocephalic Eye exam: PRESENT: conjunctiva pale, EOMI. ABSENT: nystagmus, periorbital swelling, scleral icterus Mouth exam: PRESENT: dry mucosa, neck supple, tongue midline Teeth exam: PRESENT: poor dentation Neck exam: ABSENT: carotid bruit, JVD, lymphadenopathy, thyromegaly, tracheal deviation, tracheostomy Respiratory exam: PRESENT: decreased breath sounds, prolonged expiratory phas, rales, rhonchi, symmetrical, unlabored. ABSENT: retraction, stridor, tachypnea Cardiovascular exam: PRESENT: RRR, +S1, +S2. ABSENT: tachycardia Pulses: PRESENT: normal radial pulses GI/Abdominal exam: PRESENT: diminished bowel sounds, soft, other - Ostomy draining Wound site appears to be ok Gentrourinary exam: PRESENT: indwelling catheter Extremities exam: ABSENT: calf tenderness, clubbing Musculoskeletal exam: ABSENT: deformity, dislocation Neurological exam: PRESENT: alert, awake Psychiatric exam: PRESENT: normal mood Skin exam: PRESENT: other - Multiple perineal inguinal and sacral wounds Results Laboratory Results: 09/03/17 05:35 09/03/17 05:35 09/02/17 09/02/17 09/03/17 17:45 17:45 05:35 WBC 19.9 H RBC 3.30 L Hgb 8.3 L Hct 25.8 L MCV 78 L MCH 25.2 L MCHC 32.3 RDW 18.1 H Plt Count 440 Seg Neutrophils % 72.5 Lymphocytes % 20.1 Monocytes % 6.0 Eosinophils % 1.1 Basophils % 0.3 Absolute Neutrophils 14.4 H Absolute Lymphocytes 4.0 Absolute Monocytes 1.2 Absolute Eosinophils 0.2 Absolute Basophils 0.1 Carbonic Acid 1.38 H HCO3/H2CO3 Ratio 25:1 ABG pH 7.50 H ABG pCO2 46.0 H ABG pO2 76.2 L ABG HCO3 34.9 H ABG O2 Saturation 96.1 ABG Base Excess 10.6 FiO2 2L Sodium 134.4 L Potassium 3.8 Chloride 96 L Carbon Dioxide 32 H Anion Gap 6 BUN 4 L Creatinine 0.51 L Est GFR ( Amer) > 60 Est GFR (Non-Af Amer) > 60 Glucose 228 H Calcium 7.6 L Magnesium Total Bilirubin 0.3 AST 15 L ALT 24 Alkaline Phosphatase 482 H Total Protein 5.0 L Albumin 2.1 L 09/03/17 09/03/17 05:35 05:35 WBC 24.7 H RBC 3.74 L Hgb 9.4 L Hct 29.1 L MCV 78 L MCH 25.1 L MCHC 32.3 RDW 17.8 H Plt Count 522 H Seg Neutrophils % Not Reportable Lymphocytes % Not Reportable Monocytes % Not Reportable Eosinophils % Not Reportable Basophils % Not Reportable Absolute Neutrophils Not Reportable Absolute Lymphocytes Not Reportable Absolute Monocytes Not Reportable Absolute Eosinophils Not Reportable Absolute Basophils Not Reportable Carbonic Acid HCO3/H2CO3 Ratio ABG pH ABG pCO2 ABG pO2 ABG HCO3 ABG O2 Saturation ABG Base Excess FiO2 Sodium 137.1 Potassium 3.1 L Chloride 94 L Carbon Dioxide 33 H Anion Gap 10 BUN 2 L Creatinine 0.45 L Est GFR ( Amer) > 60 Est GFR (Non-Af Amer) > 60 Glucose 175 H Calcium 8.1 L Magnesium 1.8 Total Bilirubin 0.2 AST 16 L ALT 21 Alkaline Phosphatase 523 H Total Protein 5.5 L Albumin 2.6 L 08/24/17 08/24/17 08/25/17 18:00 22:00 05:15 Creatine Kinase 140 117 82 CK-MB (CK-2) Troponin I NT-Pro-B Natriuret Pep 09/02/17 09/02/17 09/03/17 17:45 17:45 05:35 Creatine Kinase 50 L CK-MB (CK-2) 0.40 Troponin I 0.027 NT-Pro-B Natriuret Pep 4690 H Impressions: Thoracic Spine CT 08/26/17 08:00 IMPRESSION: No acute findings in the thoracic spine. Abdomen/Pelvis CT 08/27/17 00:00 IMPRESSION: 1. Extensive basilar pulmonary changes suggesting pneumonia. 2. No evidence of intra- abdominal or intrapelvic abscess or drainable collection. Postoperative changes as above without evidence of mechanical bowel obstruction. 3. Marked irregular soft tissue loss in the proximal left posterior and medial thigh, incompletely assessed. No suggestion of regional drainable collection as imaged. Chest X-Ray 09/03/17 06:00 IMPRESSION: 1. Interval removal of left IJ central venous catheter. Otherwise stable appearance of the chest with persistent patchy bibasilar opacity. Assessment & Plan - Diagnosis (1) Abscess or cellulitis of perineum Is this a current diagnosis for this admission?: Yes Plan: Status post debridement 2 improving (2) Acute respiratory failure with hypoxia Is this a current diagnosis for this admission?: Yes Plan: 24 hours status post extubation stable (3) Diabetic keto-acidosis Qualifiers: Diabetes mellitus type: type 1 Diabetes mellitus complication detail: without coma Qualified Code(s): E10.10 - Type 1 diabetes mellitus with ketoacidosis without coma Is this a current diagnosis for this admission?: No (4) Septic shock Is this a current diagnosis for this admission?: No Plan: vol repletion LR and vaspressor 08/25/17 18:30 Gram Stain - Preliminary Groin - Abscess Wound Culture - Preliminary Corynebacterium Species Gram Positive Cocci In Pairs Gram Negative Rods 08/25/17 09:25 Gram Stain - Final Tracheal Aspirate Sputum Culture - Final Mrsa (Meth Resis Staph Aureus) C.albicans/C.dubliniensis Normal [place] Absent 08/24/17 20:52 Gram Stain - Final Buttocks - Abscess Wound Culture - Final Bacteroides Fragilis Group Corynebacterium Striatum Staphylococcus Epidermidis 08/24/17 20:48 Gram Stain - Final Buttocks - Abscess Wound Culture - Preliminary Bacteroides Fragilis Group Corynebacterium Species Gram Positive Cocci Clusters 08/24/17 14:59 Gram Stain - Final Perineum Wound Culture - Preliminary Corynebacterium Species Gram Positive Cocci In Pairs Bacteroides Fragilis Group 08/24/17 14:59 Blood Culture - Preliminary Blood NO GROWTH 4 DAYS 08/24/17 14:59 Blood Culture - Final Blood Corynebacterium Striatum (5) Malnutrition of moderate degree Is this a current diagnosis for this admission?: Yes Plan: enteral nutrition as tolerated (6) Tobacco abuse Is this a current diagnosis for this admission?: Yes Plan: transdermal nicotene
[2017-09-03] MEDS: OXYCODONE HCL IR 5 MG TABLET PO PRN (15:14)
--- NOTE | 2017-09-03 15:21 | PDOC PROGRESS REPORT ---
Subjective Progress Note for:: 09/03/17 Subjective:: Patient admitted with septic shock Reason For Visit: DKA, SEPSIS Physical Exam Vital Signs: Temp Pulse Resp BP Pulse Ox 98.4 F 104 H 17 114/77 98 09/03/17 14:00 09/03/17 12:10 09/03/17 14:43 09/03/17 14:43 09/03/17 14:43 Intake & Output 09/02/17 09/03/17 09/04/17 06:59 06:59 06:59 Intake Total 2652 3650 Output Total 3750 5410 920 Balance -1098 -1760 -920 Weight 57.8 kg 54.7 kg General appearance: PRESENT: no acute distress Head exam: PRESENT: atraumatic Neck exam: ABSENT: carotid bruit, JVD, lymphadenopathy, thyromegaly Cardiovascular exam: PRESENT: RRR. ABSENT: diastolic murmur, rubs, systolic murmur GI/Abdominal exam: PRESENT: normal bowel sounds, soft. ABSENT: distended, guarding, mass, organolmegaly, rebound, tenderness Rectal exam: PRESENT: deferred Gentrourinary exam: PRESENT: other - woond, foul smelling drainage Neurological exam: PRESENT: alert, awake, oriented to person, oriented to place , oriented to time Psychiatric exam: PRESENT: appropriate affect, normal mood. ABSENT: homicidal ideation, suicidal ideation Skin exam: PRESENT: other - Groin abscess, xple skin lesions Results Laboratory Results: 09/03/17 05:35 09/03/17 05:35 09/02/17 09/02/17 09/03/17 17:45 17:45 05:35 WBC 19.9 H RBC 3.30 L Hgb 8.3 L Hct 25.8 L MCV 78 L MCH 25.2 L MCHC 32.3 RDW 18.1 H Plt Count 440 Seg Neutrophils % 72.5 Lymphocytes % 20.1 Monocytes % 6.0 Eosinophils % 1.1 Basophils % 0.3 Absolute Neutrophils 14.4 H Absolute Lymphocytes 4.0 Absolute Monocytes 1.2 Absolute Eosinophils 0.2 Absolute Basophils 0.1 Carbonic Acid 1.38 H HCO3/H2CO3 Ratio 25:1 ABG pH 7.50 H ABG pCO2 46.0 H ABG pO2 76.2 L ABG HCO3 34.9 H ABG O2 Saturation 96.1 ABG Base Excess 10.6 FiO2 2L Sodium 134.4 L Potassium 3.8 Chloride 96 L Carbon Dioxide 32 H Anion Gap 6 BUN 4 L Creatinine 0.51 L Est GFR ( Amer) > 60 Est GFR (Non-Af Amer) > 60 Glucose 228 H Calcium 7.6 L Magnesium Total Bilirubin 0.3 AST 15 L ALT 24 Alkaline Phosphatase 482 H Total Protein 5.0 L Albumin 2.1 L 09/03/17 09/03/17 05:35 05:35 WBC 24.7 H RBC 3.74 L Hgb 9.4 L Hct 29.1 L MCV 78 L MCH 25.1 L MCHC 32.3 RDW 17.8 H Plt Count 522 H Seg Neutrophils % Not Reportable Lymphocytes % Not Reportable Monocytes % Not Reportable Eosinophils % Not Reportable Basophils % Not Reportable Absolute Neutrophils Not Reportable Absolute Lymphocytes Not Reportable Absolute Monocytes Not Reportable Absolute Eosinophils Not Reportable Absolute Basophils Not Reportable Carbonic Acid HCO3/H2CO3 Ratio ABG pH ABG pCO2 ABG pO2 ABG HCO3 ABG O2 Saturation ABG Base Excess FiO2 Sodium 137.1 Potassium 3.1 L Chloride 94 L Carbon Dioxide 33 H Anion Gap 10 BUN 2 L Creatinine 0.45 L Est GFR ( Amer) > 60 Est GFR (Non-Af Amer) > 60 Glucose 175 H Calcium 8.1 L Magnesium 1.8 Total Bilirubin 0.2 AST 16 L ALT 21 Alkaline Phosphatase 523 H Total Protein 5.5 L Albumin 2.6 L 08/24/17 08/24/17 08/25/17 18:00 22:00 05:15 Creatine Kinase 140 117 82 CK-MB (CK-2) Troponin I NT-Pro-B Natriuret Pep 09/02/17 09/02/17 09/03/17 17:45 17:45 05:35 Creatine Kinase 50 L CK-MB (CK-2) 0.40 Troponin I 0.027 NT-Pro-B Natriuret Pep 4690 H Impressions: Thoracic Spine CT 08/26/17 08:00 IMPRESSION: No acute findings in the thoracic spine. Abdomen/Pelvis CT 08/27/17 00:00 IMPRESSION: 1. Extensive basilar pulmonary changes suggesting pneumonia. 2. No evidence of intra- abdominal or intrapelvic abscess or drainable collection. Postoperative changes as above without evidence of mechanical bowel obstruction. 3. Marked irregular soft tissue loss in the proximal left posterior and medial thigh, incompletely assessed. No suggestion of regional drainable collection as imaged. Chest X-Ray 09/03/17 06:00 IMPRESSION: 1. Interval removal of left IJ central venous catheter. Otherwise stable appearance of the chest with persistent patchy bibasilar opacity. Assessment & Plan - Time Time Spent with patient: 15-24 minutes Medications reviewed and adjusted accordingly: Yes Anticipated discharge: Home - Plan Summary Plan Summary: Acute respiratory failure with hypoxia status post extubation. Patient remains stable respiratory gamez. 2. Septic shock secondary to deep skin infection and pneumonia resolved 3. Hypokalemia we will replace 4. Buttocks and scrotal abscess 5. Protein calorie malnutrition continue supplements 6. Tobacco abuse disorder 7. Atrial fibrillation with rapid ventricular response which was transient and appears to have resolved. Was started on digoxin and I will defer to vice president network if this is to be continued. 8. Anemia of chronic disease 9. Patient can be moved out of the intensive care unit and monitored on telemetry floor. 10.Bilateral pneumonia status post mechanical intubation. 11.Decubitus ulcers possibly infected and contributing to the septic shock 12,Groin abscess secondary to status post I&D on 220. Follow-up on cultures and adjust antibiotics as needed 13. Hidradenitis suppurativa of the anus 14. Reactive thrombocytosis
[2017-09-03] MEDS: POTASSI CL 40 MEQ/NS 1L 1,000 ML IV PRN (17:56)
[2017-09-03] MEDS: ONDANSETRON 4 MG TAB.RAPDIS PO PRN (17:59)
[2017-09-04] MEDS: IPRATROPIUM/ALBUTEROL 0.5-2.5 MG/3 ML AMPUL NEB SCH ×6 (00:46→20:01)
[2017-09-04] MEDS: VANCOMYCIN HCL 750 MG in DEXTROSE 5%-WATER 250 ML IV SCH ×3 (02:05→17:34)
[2017-09-04] MEDS: MEROPENEM 1 GM in NORMAL SALINE 100 ML IV SCH ×3 (02:06→17:34)
[2017-09-04] MEDS: DILTIAZEM HCL 30 MG TABLET PO SCH ×3 (05:50→21:21)
[2017-09-04 06:32] LABS: ANION GAP 11 (5-19); CARBON DIOXIDE 32 mmol/L (22-30); CHLORIDE 91 mmol/L (98-107); GLUCOSE 181 mg/dL (75-110); SODIUM 134.1 mmol/L (137-145)
[2017-09-04 06:36] LABS: BLOOD UREA NITROGEN < 2 mg/dL (7-20)
[2017-09-04] MEDS: OXYCODONE HCL IR 5 MG TABLET PO PRN ×3 (06:42→17:32)
[2017-09-04 06:47] LABS: POTASSIUM 3.6 mmol/L (3.6-5.0)
[2017-09-04] MEDS: INSULIN LISPRO 100 UNIT/ML 3 ML VIAL SUBCUT PRN ×3 (08:38→21:27)
[2017-09-04] MEDS: ENOXAPARIN SODIUM INJ 60 MG/0.6 ML DISP.SYRIN SUBCUT SCH ×2 (09:00→21:24)
[2017-09-04] MEDS: DIGOXIN 0.125 MG TABLET PO SCH (09:01)
[2017-09-04] MEDS: DULOXETINE HCL 30 MG CAPSULE.DR PO SCH ×2 (09:01→21:21)
[2017-09-04] MEDS: FAMOTIDINE INJ/PF 20 MG/2 ML SDV IV SCH ×2 (09:01→21:21)
[2017-09-04] MEDS: PREDNISONE 10 MG TABLET PO SCH (09:02)
[2017-09-04] MEDS: MORPHINE SULFATE SR 100 MG TABLET PO SCH ×2 (09:02→21:23)
--- NOTE | 2017-09-04 10:42 | PDOC PROGRESS REPORT ---
Subjective Progress Note for:: 09/04/17 Subjective:: Patient admitted with septic shock Reason For Visit: DKA, SEPSIS Physical Exam Vital Signs: Temp Pulse Resp BP Pulse Ox 98.6 F 111 H 15 129/79 H 100 09/04/17 04:00 09/04/17 04:23 09/04/17 06:00 09/04/17 04:28 09/04/17 04:28 Intake & Output 09/03/17 09/04/17 09/05/17 06:59 06:59 06:59 Intake Total 3650 2442 Output Total 5410 2495 Balance -1760 -53 Weight 54.7 kg 54.4 kg General appearance: PRESENT: no acute distress, thin Head exam: PRESENT: atraumatic, normocephalic Eye exam: PRESENT: conjunctiva pink, EOMI, PERRLA. ABSENT: scleral icterus Ear exam: PRESENT: normal external ear exam Mouth exam: PRESENT: moist, tongue midline Neck exam: ABSENT: carotid bruit, JVD, lymphadenopathy, thyromegaly Respiratory exam: PRESENT: clear to auscultation [place]. ABSENT: rales, rhonchi, wheezes Cardiovascular exam: PRESENT: RRR. ABSENT: diastolic murmur, rubs, systolic murmur Pulses: PRESENT: normal dorsalis pedis pul Vascular exam: PRESENT: normal capillary refill GI/Abdominal exam: PRESENT: normal bowel sounds, soft. ABSENT: distended, guarding, mass, organolmegaly, rebound, tenderness Rectal exam: PRESENT: deferred Gentrourinary exam: PRESENT: other - L thigh and scrotal area lesion with dressing Extremities exam: PRESENT: tenderness. ABSENT: calf tenderness, clubbing, pedal edema Neurological exam: PRESENT: alert, awake, oriented to person, oriented to place , oriented to time, oriented to situation, CN II-XII grossly intact. ABSENT: motor sensory deficit Psychiatric exam: PRESENT: appropriate affect, normal mood. ABSENT: homicidal ideation, suicidal ideation Skin exam: PRESENT: dry, warm, other - buttocks, groin abscesses, hidradenitis. ABSENT: cyanosis, rash Results Laboratory Results: 09/03/17 05:35 09/04/17 05:55 09/03/17 09/04/17 17:50 05:55 Sodium 134.1 L Potassium 4.7 D 3.6 D Chloride 91 L Carbon Dioxide 32 H Anion Gap 11 BUN < 2 L Creatinine 0.46 L Est GFR ( Amer) > 60 Est GFR (Non-Af Amer) > 60 Glucose 181 H Calcium 8.0 L 09/02/17 09:17 Catheterized Urine Urine Culture - Final NO GROWTH 2 DAYS 08/24/17 08/24/17 08/25/17 18:00 22:00 05:15 Creatine Kinase 140 117 82 CK-MB (CK-2) Troponin I NT-Pro-B Natriuret Pep 09/02/17 09/02/17 09/03/17 17:45 17:45 05:35 Creatine Kinase 50 L CK-MB (CK-2) 0.40 Troponin I 0.027 NT-Pro-B Natriuret Pep 4690 H Impressions: Thoracic Spine CT 08/26/17 08:00 IMPRESSION: No acute findings in the thoracic spine. Abdomen/Pelvis CT 08/27/17 00:00 IMPRESSION: 1. Extensive basilar pulmonary changes suggesting pneumonia. 2. No evidence of intra- abdominal or intrapelvic abscess or drainable collection. Postoperative changes as above without evidence of mechanical bowel obstruction. 3. Marked irregular soft tissue loss in the proximal left posterior and medial thigh, incompletely assessed. No suggestion of regional drainable collection as imaged. Chest X-Ray 09/03/17 06:00 IMPRESSION: 1. Interval removal of left IJ central venous catheter. Otherwise stable appearance of the chest with persistent patchy bibasilar opacity. Assessment & Plan - Plan Summary Plan Summary: Acute respiratory failure with hypoxia status post extubation. Patient remains stable respiratory gamez. 2. Septic shock secondary to deep skin infection and pneumonia resolved 3. Hypokalemia Replaced 4. Buttocks and scrotal abscess 5. Protein calorie malnutrition continue supplements 6. Tobacco abuse disorder 7. Atrial fibrillation with rapid ventricular response which was transient and appears to have resolved. Was started on digoxin and I will defer to film vault supervisor if this is to be continued. 8. Anemia of chronic disease 9. Patient awaiting transfer out of the intensive care unit to telemetry floor. 10.Bilateral pneumonia status post mechanical intubation. 11.Decubitus ulcers possibly infected and contributing to the septic shock 12,Groin abscess secondary to status post I&D on 220. Follow-up on cultures and adjust antibiotics as needed 13. Hidradenitis suppurativa of the anus 14. Reactive thrombocytosis
[2017-09-04] MEDS: POTASSI CL 40 MEQ/NS 1L 1,000 ML IV PRN (11:20)
--- NOTE | 2017-09-04 13:28 | PDOC PROGRESS REPORT ---
Subjective Progress Note for:: 09/04/17 Subjective:: Patient seems to be doing better with significant improvement. Patient today maintaining sinus rhythm. Pt is denying any chest arm or neck discomfort. Patient denying any PND, orthopnea. Patient denied any sustained palpitations, dizziness, syncope, near syncope. Patient denying any fever chills. Patient denying any other significant discomfort. Patient is maintaining sinus rhythm. Mild intermittent tachycardia noted. Review of systems: Rest review of systems negative. Medications: Medications have been reviewed. Reason For Visit: DKA, SEPSIS Physical Exam Vital Signs: Temp Pulse Resp BP Pulse Ox 98.6 F 108 H 12 119/77 94 09/04/17 04:00 09/04/17 12:24 09/04/17 12:24 09/04/17 08:26 09/04/17 12:24 Intake & Output 09/03/17 09/04/17 09/05/17 06:59 06:59 06:59 Intake Total 3650 2442 Output Total 5410 2495 700 Balance -1760 -53 -700 Weight 54.7 kg 54.4 kg Exam: GENERAL: Average built, towards thin side, in no acute distress. Alert and oriented x3 HEAD: Atraumatic, normocephalic. EYES: Pupils equal round and reactive to light, extraocular movements intact, sclera anicteric, conjunctiva are normal. ENT: TMs normal, nares patent, oropharynx clear without exudates. Moist mucous membranes. No oral ulcerations or bleeding gums noted NECK: supple without lymphadenopathy. Trachea is central. No cervical or axillary lymphadenopathy noted. Carotids are 2+, JVD WNL LUNGS: Respiration seems nonlabored, no significant accessory muscle action noted. Breath sounds clear to auscultation bilaterally and equal noted. No wheezes rales or rhonchi noted. No significant dullness noted on percussion. CHEST: Palpation of the chest wall shows no significant chest wall tenderness. No other significant abnormalities noted. HEART: [place] [employer], No PSH, 1/6 JALYN aortic area, 1/6 [place] systolic murmur mitral area, no rubs, no gallops. ABDOMEN: Soft, no significant tenderness appreciated, normoactive bowel sounds. No guarding, no rebound. No rigidity noted . No masses appreciated. EXTREMITIES: Pedal pulses are 1-2+, no calf tenderness noted. No clubbing or cyanosis.trace pedal edema noted NEUROLOGICAL: Focused neurological exam showed no significant neurologic deficit. Normal speech, no focal weakness appreciated. PSYCH: Normal mood, normal affect. Judgment and insight within normal limits. SKIN: No significant ecchymosis, rash, ulcerations or signs of pruritus noted. MUSCULOSKELETAL EXAM: No significant joint swelling noted. Results Laboratory Results: 09/03/17 05:35 09/04/17 05:55 09/03/17 09/04/17 17:50 05:55 Sodium 134.1 L Potassium 4.7 D 3.6 D Chloride 91 L Carbon Dioxide 32 H Anion Gap 11 BUN < 2 L Creatinine 0.46 L Est GFR ( Amer) > 60 Est GFR (Non-Af Amer) > 60 Glucose 181 H Calcium 8.0 L 09/02/17 09:17 Catheterized Urine Urine Culture - Final NO GROWTH 2 DAYS 08/24/17 08/24/17 08/25/17 18:00 22:00 05:15 Creatine Kinase 140 117 82 CK-MB (CK-2) Troponin I NT-Pro-B Natriuret Pep 09/02/17 09/02/17 09/03/17 17:45 17:45 05:35 Creatine Kinase 50 L CK-MB (CK-2) 0.40 Troponin I 0.027 NT-Pro-B Natriuret Pep 4690 H EKG Comments: Telemetry strip shows sinus rhythm without sustained tacky or bradycardia arrhythmias. Impressions: Thoracic Spine CT 08/26/17 08:00 IMPRESSION: No acute findings in the thoracic spine. Abdomen/Pelvis CT 08/27/17 00:00 IMPRESSION: 1. Extensive basilar pulmonary changes suggesting pneumonia. 2. No evidence of intra- abdominal or intrapelvic abscess or drainable collection. Postoperative changes as above without evidence of mechanical bowel obstruction. 3. Marked irregular soft tissue loss in the proximal left posterior and medial thigh, incompletely assessed. No suggestion of regional drainable collection as imaged. Chest X-Ray 09/03/17 06:00 IMPRESSION: 1. Interval removal of left IJ central venous catheter. Otherwise stable appearance of the chest with persistent patchy bibasilar opacity. Assessment & Plan - Diagnosis (1) Atrial fibrillation with rapid ventricular response Is this a current diagnosis for this admission?: Yes (2) Diabetes mellitus Qualifiers: Diabetes mellitus type: type 1 Diabetes mellitus complication status: with unspecified complications Qualified Code(s): E10.8 - Type 1 diabetes mellitus with unspecified complications Is this a current diagnosis for this admission?: Yes (3) Crohns disease Qualifiers: Gastrointestinal tract location: unspecified location Is this a current diagnosis for this admission?: Yes (4) Acute respiratory failure with hypoxia Is this a current diagnosis for this admission?: Yes (5) Diabetic keto-acidosis Qualifiers: Diabetes mellitus type: type 1 Diabetes mellitus complication detail: without coma Qualified Code(s): E10.10 - Type 1 diabetes mellitus with ketoacidosis without coma Is this a current diagnosis for this admission?: Yes (6) Sepsis Qualifiers: Sepsis type: sepsis due to unspecified organism Qualified Code(s): A41.9 - Sepsis, unspecified organism Is this a current diagnosis for this admission?: Yes - Notes Notes: Atrial fibrillation with rapid ventricular response: Patient has converted to sinus rhythm and has maintained sinus rhythm for approximately 48 hours. Patient does have some mild sinus tachycardia and probably related to metabolic causes. May consider beta 1 selective agent or Cardizem. Diabetes: Being well managed by experimental mechanic [employer]. Sepsis: Possibly secondary to skin infection continued. Continue antibiotic therapy Anemia: Maintain hemoglobin above 8 g percent. Currently stable. Malnutrition: Currently being improved by improving nutrition. Elevated BNP level: Most likely related to atrial fibrillation causing diastolic dysfunction and atrial stretch. Clinically did not see much volume expansion. May consider repeating a BNP level. Will sign off. Please reconsult if needed. - Time Time with patient: 15-25 minutes - Patient's sister is the surrogate decision- maker. More than 50% of the time spent coordinating care, discussing management plans with involved caregivers. Management plans discussed with involved personnels. Medical decision making was of moderate to high complexity , patient's has multiple comorbidities. Medications reviewed and adjusted accordingly: Yes
[2017-09-05] MEDS: IPRATROPIUM/ALBUTEROL 0.5-2.5 MG/3 ML AMPUL NEB SCH ×7 (00:19→23:54)
[2017-09-05] MEDS: VANCOMYCIN HCL 750 MG in DEXTROSE 5%-WATER 250 ML IV SCH ×3 (01:00→19:10)
[2017-09-05] MEDS: MEROPENEM 1 GM in NORMAL SALINE 100 ML IV SCH ×3 (01:01→19:12)
[2017-09-05] MEDS: POTASSI CL 40 MEQ/NS 1L 1,000 ML IV PRN ×2 (01:01→16:41)
[2017-09-05] MEDS: OXYCODONE HCL IR 5 MG TABLET PO PRN ×4 (02:49→19:03)
[2017-09-05 04:47] LABS: APPEARANCE,URINE CLEAR; BILIRUBIN,URINE NEGATIVE (NEGATIVE); COLOR,URINE YELLOW; GLUCOSE, URINE 50 mg/dL (NEGATIVE); KETONES,URINE TRACE mg/dL (NEGATIVE); LEUKOCYTE ESTERASE,URINE NEGATIVE (NEGATIVE); NITRITE,URINE NEGATIVE (NEGATIVE); PROTEIN,URINE NEGATIVE (NEGATIVE); URINE SPECIFIC GRAVITY 1.009; UROBILINOGEN,URINE NEGATIVE mg/dL (<2.0)
[2017-09-05 05:00] LABS: ANION GAP 11 (5-19); CALCIUM 8.1 mg/dL (8.4-10.2); CARBON DIOXIDE 32 mmol/L (22-30); CHLORIDE 92 mmol/L (98-107); GLUCOSE 131 mg/dL (75-110); POTASSIUM 3.8 mmol/L (3.6-5.0); SODIUM 134.8 mmol/L (137-145)
[2017-09-05 05:01] LABS: HEMATOCRIT 25.7 % (37.9-51.0); HEMOGLOBIN 8.2 g/dL (13.5-17.0); MEAN CORPUSCULAR HEMOGLOBIN 25.3 pg (27.0-33.4); MEAN CORPUSCULAR HGB CONC 31.9 g/dL (32.0-36.0); MEAN CORPUSCULAR VOLUME 79 fl (80-97); RED BLOOD COUNT 3.24 10^6/uL (4.35-5.55); RED CELL DISTRIBUTION WIDTH 18.2 % (11.5-14.0)
[2017-09-05 05:05] LABS: BLOOD UREA NITROGEN < 2 mg/dL (7-20)
[2017-09-05 05:16] LABS: ABSOLUTE LYMPHOCYTES# (MANUAL) 4.8 10^3/uL (0.5-4.7); ABSOLUTE MONOCYTES # (MANUAL) 1.8 10^3/uL (0.1-1.4); ABSOLUTE NEUTROPHILS# (MANUAL) 17.5 10^3/uL (1.7-8.2); BASOPHILS % (MANUAL) 0 % (0-2); EOSINOPHILS % (MANUAL) 4 % (0-6); LYMPHOCYTES % (MANUAL) 16 % (13-45); MONOCYTES % (MANUAL) 7 % (3-13); SEGMENTED NEUTROPHILS % (MAN) 70 % (42-78); TOTAL CELLS COUNTED 100
[2017-09-05 05:19] LABS: ANISOCYTOSIS 2+; POIKILOCYTOSIS 1+
[2017-09-05 05:20] LABS: PLATELET CLUMPS PRESENT; PLATELET COMMENT INCREASED; PLATELET COUNT 781 10^3/uL (150-450); TARGET CELLS 1+
[2017-09-05] MEDS: DILTIAZEM HCL 30 MG TABLET PO SCH ×3 (05:41→22:26)
[2017-09-05] MEDS: DULOXETINE HCL 30 MG CAPSULE.DR PO SCH ×2 (11:02→22:24)
[2017-09-05] MEDS: MORPHINE SULFATE SR 100 MG TABLET PO SCH ×2 (11:03→22:26)
[2017-09-05] MEDS: FAMOTIDINE INJ/PF 20 MG/2 ML SDV IV SCH ×2 (11:04→22:27)
[2017-09-05] MEDS: DIGOXIN 0.125 MG TABLET PO SCH (11:04)
[2017-09-05] MEDS: PREDNISONE 10 MG TABLET PO SCH (11:04)
[2017-09-05] MEDS: ENOXAPARIN SODIUM INJ 60 MG/0.6 ML DISP.SYRIN SUBCUT SCH ×2 (11:07→22:30)
[2017-09-05] MEDS: INSULIN LISPRO 100 UNIT/ML 3 ML VIAL SUBCUT PRN (22:34)
[2017-09-06] MEDS: VANCOMYCIN HCL 750 MG in DEXTROSE 5%-WATER 250 ML IV SCH ×3 (02:17→18:26)
[2017-09-06] MEDS: MEROPENEM 1 GM in NORMAL SALINE 100 ML IV SCH ×3 (02:17→17:56)
[2017-09-06] MEDS: IPRATROPIUM/ALBUTEROL 0.5-2.5 MG/3 ML AMPUL NEB SCH ×5 (04:33→20:17)
[2017-09-06 05:07] LABS: HEMATOCRIT 27.5 % (37.9-51.0); HEMOGLOBIN 8.8 g/dL (13.5-17.0); MEAN CORPUSCULAR HEMOGLOBIN 25.5 pg (27.0-33.4); MEAN CORPUSCULAR HGB CONC 32.2 g/dL (32.0-36.0); MEAN CORPUSCULAR VOLUME 79 fl (80-97); PLATELET COUNT 868 10^3/uL (150-450); RED BLOOD COUNT 3.47 10^6/uL (4.35-5.55); RED CELL DISTRIBUTION WIDTH 18.4 % (11.5-14.0); WHITE BLOOD COUNT 23.8 10^3/uL (4.0-10.5)
[2017-09-06 05:27] LABS: ANION GAP 5 (5-19); CALCIUM 8.4 mg/dL (8.4-10.2); CARBON DIOXIDE 33 mmol/L (22-30); CHLORIDE 95 mmol/L (98-107); GLUCOSE 172 mg/dL (75-110); POTASSIUM 3.9 mmol/L (3.6-5.0); SODIUM 133.3 mmol/L (137-145)
[2017-09-06 05:30] LABS: BLOOD UREA NITROGEN < 2 mg/dL (7-20)
[2017-09-06 05:53] LABS: ABSOLUTE LYMPHOCYTES# (MANUAL) 4.5 10^3/uL (0.5-4.7); ABSOLUTE MONOCYTES # (MANUAL) 0.7 10^3/uL (0.1-1.4); ABSOLUTE NEUTROPHILS# (MANUAL) 17.6 10^3/uL (1.7-8.2); BAND NEUTROPHILS % (MANUAL) 1 % (3-5); BASOPHILS % (MANUAL) 0 % (0-2); EOSINOPHILS % (MANUAL) 4 % (0-6); LYMPHOCYTES % (MANUAL) 19 % (13-45); MONOCYTES % (MANUAL) 3 % (3-13); SEGMENTED NEUTROPHILS % (MAN) 73 % (42-78); TOTAL CELLS COUNTED 100
[2017-09-06 05:55] LABS: ANISOCYTOSIS 2+; HELMET CELLS SLIGHT; POIKILOCYTOSIS 1+; SCHISTOCYTES 1+; TOXIC GRANULATION 1+
[2017-09-06 05:56] LABS: HYPOCHROMASIA 1+; PLATELET COMMENT ADEQUATE; TARGET CELLS 1+; TEAR DROP CELLS SLIGHT
[2017-09-06] MEDS: OXYCODONE HCL IR 5 MG TABLET PO PRN ×3 (06:31→22:42)
[2017-09-06] MEDS: DILTIAZEM HCL 30 MG TABLET PO SCH ×3 (06:32→17:56)
[2017-09-06] MEDS: POTASSI CL 40 MEQ/NS 1L 1,000 ML IV PRN (06:38)
--- NOTE | 2017-09-06 10:09 | PDOC PROGRESS REPORT ---
Subjective Progress Note for:: 09/05/17 Subjective:: Patient admitted with septic shock Reason For Visit: DKA, SEPSIS Physical Exam Vital Signs: Temp Pulse Resp BP Pulse Ox 98.6 F 108 H 18 118/74 97 09/05/17 03:51 09/05/17 12:13 09/05/17 14:00 09/05/17 03:56 09/05/17 08:27 Intake & Output 09/04/17 09/05/17 09/06/17 06:59 06:59 06:59 Intake Total 2442 3115 Output Total 2495 2330 1300 Balance -53 785 -1300 Weight 54.4 kg 54.6 kg General appearance: PRESENT: no acute distress, cooperative, other - ill looking but not septic Head exam: PRESENT: atraumatic Eye exam: PRESENT: conjunctiva pink, EOMI, PERRLA. ABSENT: scleral icterus Mouth exam: PRESENT: moist, tongue midline Neck exam: ABSENT: carotid bruit, JVD, lymphadenopathy, thyromegaly Respiratory exam: PRESENT: clear to auscultation [place]. ABSENT: rales, rhonchi, wheezes Cardiovascular exam: PRESENT: +S1, +S2, tachycardia GI/Abdominal exam: PRESENT: normal bowel sounds, soft. ABSENT: distended, guarding, mass, organolmegaly, rebound, tenderness Rectal exam: PRESENT: deferred Musculoskeletal exam: PRESENT: ambulatory, other - groin R I and D Neurological exam: PRESENT: alert, oriented to time Skin exam: PRESENT: abrasion, other - DTI L and R heels Superficial wound upper back area, L thigh Results Laboratory Results: 09/05/17 04:05 09/05/17 04:05 09/05/17 09/05/17 09/05/17 04:05 04:05 04:05 WBC 25.0 H RBC 3.24 L Hgb 8.2 L Hct 25.7 L MCV 79 L MCH 25.3 L MCHC 31.9 L RDW 18.2 H Plt Count 781 H Seg Neutrophils % Not Reportable Lymphocytes % Not Reportable Monocytes % Not Reportable Eosinophils % Not Reportable Basophils % Not Reportable Absolute Neutrophils Not Reportable Absolute Lymphocytes Not Reportable Absolute Monocytes Not Reportable Absolute Eosinophils Not Reportable Absolute Basophils Not Reportable Sodium 134.8 L Potassium 3.8 Chloride 92 L Carbon Dioxide 32 H Anion Gap 11 BUN < 2 L Creatinine 0.47 L Est GFR ( Amer) > 60 Est GFR (Non-Af Amer) > 60 Glucose 131 H Calcium 8.1 L Urine Color Urine Appearance Urine pH Ur Specific [place] Urine Protein Urine Glucose (UA) Urine Ketones Urine Blood Urine Nitrite Ur Leukocyte Esterase Urine WBC (Auto) Urine RBC (Auto) Stool Occult Blood POSITIVE 09/05/17 04:05 WBC RBC Hgb Hct MCV MCH MCHC RDW Plt Count Seg Neutrophils % Lymphocytes % Monocytes % Eosinophils % Basophils % Absolute Neutrophils Absolute Lymphocytes Absolute Monocytes Absolute Eosinophils Absolute Basophils Sodium Potassium Chloride Carbon Dioxide Anion Gap BUN Creatinine Est GFR ( Amer) Est GFR (Non-Af Amer) Glucose Calcium Urine Color YELLOW Urine Appearance CLEAR Urine pH 7.0 Ur Specific [place] 1.009 Urine Protein NEGATIVE Urine Glucose (UA) 50 H Urine Ketones TRACE H Urine Blood NEGATIVE Urine Nitrite NEGATIVE Ur Leukocyte Esterase NEGATIVE Urine WBC (Auto) 4 Urine RBC (Auto) 1 Stool Occult Blood 09/02/17 18:00 Catheter Tip - Central Line Catheter Tip Culture - Final NO GROWTH 3 DAYS 09/02/17 09:17 Tracheal Aspirate Gram Stain - Final 09/02/17 09:17 Tracheal Aspirate Sputum Culture - Final Mrsa (Meth Resis Staph Aureus) C.albicans/C.dubliniensis Reduced Normal [place] 08/24/17 08/24/17 08/25/17 18:00 22:00 05:15 Creatine Kinase 140 117 82 CK-MB (CK-2) Troponin I NT-Pro-B Natriuret Pep 09/02/17 09/02/17 09/03/17 17:45 17:45 05:35 Creatine Kinase 50 L CK-MB (CK-2) 0.40 Troponin I 0.027 NT-Pro-B Natriuret Pep 4690 H Impressions: Thoracic Spine CT 08/26/17 08:00 IMPRESSION: No acute findings in the thoracic spine. Abdomen/Pelvis CT 08/27/17 00:00 IMPRESSION: 1. Extensive basilar pulmonary changes suggesting pneumonia. 2. No evidence of intra- abdominal or intrapelvic abscess or drainable collection. Postoperative changes as above without evidence of mechanical bowel obstruction. 3. Marked irregular soft tissue loss in the proximal left posterior and medial thigh, incompletely assessed. No suggestion of regional drainable collection as imaged. Chest X-Ray 09/03/17 06:00 IMPRESSION: 1. Interval removal of left IJ central venous catheter. Otherwise stable appearance of the chest with persistent patchy bibasilar opacity. Assessment & Plan - Time Time Spent with patient: 15-24 minutes Medications reviewed and adjusted accordingly: Yes Anticipated discharge: SNF - Inpatient Certification Medical Necessity: Need for IV Antibiotics, Risk of Complication if Not Cared For in Hospital - Plan Summary Plan Summary: 1.Acute respiratory failure with hypoxia status post extubation. Patient respiratory status remains stable 2. Septic shock secondary to deep skin infection and pneumonia resolved 3. Hypokalemia Replaced 4. Buttocks and scrotal abscess- continue wound care and abx 5. Protein calorie malnutrition continue supplements 6. Tobacco abuse disorder 7. Atrial fibrillation with rapid ventricular response which was transient and appears to have resolved. Continue Digoxin, check level and as patient is still tachycardic may need an increase in his Cardizem dose if his BP able to tolerate 8. Anemia of chronic disease 9. Patient awaiting transfer out of the intensive care unit to telemetry floor. 10.Bilateral pneumonia status post mechanical intubation. Cultures MRSA positive. Patient remains on Vancomycin 11.Decubitus ulcers possibly infected and contributing to the septic shock 12,Groin abscess status post I&D on 08/30. Follow-up on cultures and adjust antibiotics as needed 13. Hidradenitis suppurativa of the anus 14. Reactive thrombocytosis
--- NOTE | 2017-09-06 10:18 | PDOC PROGRESS REPORT ---
Subjective Progress Note for:: 09/06/17 Subjective:: Patient admitted with septic shock, feeling better, awaiting transfer out of ICU Reason For Visit: DKA, SEPSIS Physical Exam Vital Signs: Temp Pulse Resp BP Pulse Ox 97.8 F 108 H 12 120/82 96 09/06/17 08:00 09/06/17 08:00 09/06/17 09:00 09/06/17 08:42 09/06/17 04:00 Intake & Output 09/05/17 09/06/17 09/07/17 06:59 06:59 06:59 Intake Total 3115 2164 Output Total 2330 4025 Balance 785 -1861 Weight 54.6 kg 51.7 kg General appearance: PRESENT: no acute distress, cooperative, thin Head exam: PRESENT: atraumatic Eye exam: PRESENT: conjunctiva pink, EOMI, PERRLA. ABSENT: scleral icterus Mouth exam: PRESENT: dry mucosa Neck exam: ABSENT: carotid bruit, JVD, lymphadenopathy, thyromegaly Respiratory exam: PRESENT: clear to auscultation da[place]. ABSENT: rales, rhonchi, wheezes Cardiovascular exam: PRESENT: tachycardia GI/Abdominal exam: PRESENT: normal bowel sounds, soft. ABSENT: distended, guarding, mass, organolmegaly, rebound, tenderness Musculoskeletal exam: PRESENT: ambulatory Neurological exam: PRESENT: alert, awake, oriented to person, oriented to place , oriented to time, oriented to situation Skin exam: PRESENT: rash, other - DTI L and R heels, superficial wounds upper back and L outer thigh Wound - I and D with packing L groin and thigh Results Laboratory Results: 09/06/17 04:50 09/06/17 04:50 09/06/17 09/06/17 04:50 04:50 WBC 23.8 H RBC 3.47 L Hgb 8.8 L Hct 27.5 L MCV 79 L MCH 25.5 L MCHC 32.2 RDW 18.4 H Plt Count 868 H Seg Neutrophils % Not Reportable Lymphocytes % Not Reportable Monocytes % Not Reportable Eosinophils % Not Reportable Basophils % Not Reportable Absolute Neutrophils Not Reportable Absolute Lymphocytes Not Reportable Absolute Monocytes Not Reportable Absolute Eosinophils Not Reportable Absolute Basophils Not Reportable Sodium 133.3 L Potassium 3.9 Chloride 95 L Carbon Dioxide 33 H Anion Gap 5 BUN < 2 L Creatinine 0.37 L Est GFR ( Amer) > 60 Est GFR (Non-Af Amer) > 60 Glucose 172 H Calcium 8.4 Magnesium 1.6 09/02/17 18:00 Catheter Tip - Central Line Catheter Tip Culture - Final NO GROWTH 3 DAYS 09/02/17 09:17 Tracheal Aspirate Gram Stain - Final 09/02/17 09:17 Tracheal Aspirate Sputum Culture - Final Mrsa (Meth Resis Staph Aureus) C.albicans/C.dubliniensis Reduced Normal [place] 08/24/17 08/24/17 08/25/17 18:00 22:00 05:15 Creatine Kinase 140 117 82 CK-MB (CK-2) Troponin I NT-Pro-B Natriuret Pep 09/02/17 09/02/17 09/03/17 17:45 17:45 05:35 Creatine Kinase 50 L CK-MB (CK-2) 0.40 Troponin I 0.027 NT-Pro-B Natriuret Pep 4690 H Impressions: Thoracic Spine CT 08/26/17 08:00 IMPRESSION: No acute findings in the thoracic spine. Abdomen/Pelvis CT 08/27/17 00:00 IMPRESSION: 1. Extensive basilar pulmonary changes suggesting pneumonia. 2. No evidence of intra- abdominal or intrapelvic abscess or drainable collection. Postoperative changes as above without evidence of mechanical bowel obstruction. 3. Marked irregular soft tissue loss in the proximal left posterior and medial thigh, incompletely assessed. No suggestion of regional drainable collection as imaged. Chest X-Ray 09/03/17 06:00 IMPRESSION: 1. Interval removal of left IJ central venous catheter. Otherwise stable appearance of the chest with persistent patchy bibasilar opacity. Assessment & Plan - Time Time Spent with patient: 15-24 minutes Medications reviewed and adjusted accordingly: Yes Anticipated discharge: SNF - Inpatient Certification Medical Necessity: Need for IV Antibiotics - Plan Summary Plan Summary: 1.Acute respiratory failure with hypoxia status post extubation. Patient respiratory status remains stable MRSA pneumonitis- cont Vancomycin 2. Septic shock secondary to deep skin infection and pneumonia resolved 3. Hypokalemia Replaced 4. Buttocks and scrotal abscess- continue wound care and abx 5. Protein calorie malnutrition continue supplements 6. Tobacco abuse disorder- counselling 7. Atrial fibrillation with rapid ventricular response which was transient and appears to have resolved. Continue Digoxin, increase Cardizem dose as tolerated 8. Anemia of chronic disease 9. Patient awaiting transfer out of the intensive care unit to telemetry floor. 10.Bilateral pneumonia status post mechanical intubation. Cultures MRSA positive. Patient remains on Vancomycin 11.Decubitus ulcers possibly infected and contributing to the septic shock 12,Groin abscess status post I&D on 08/30. Follow-up on cultures and adjust antibiotics as needed 13. Hidradenitis suppurativa of the anus 14. Reactive thrombocytosis
[2017-09-06] MEDS: MORPHINE SULFATE SR 100 MG TABLET PO SCH ×2 (10:31→21:09)
[2017-09-06] MEDS: ENOXAPARIN SODIUM INJ 60 MG/0.6 ML DISP.SYRIN SUBCUT SCH ×2 (10:31→21:11)
[2017-09-06] MEDS: FAMOTIDINE INJ/PF 20 MG/2 ML SDV IV SCH ×2 (10:31→21:09)
[2017-09-06] MEDS: DULOXETINE HCL 30 MG CAPSULE.DR PO SCH ×2 (10:31→21:09)
[2017-09-06] MEDS: DIGOXIN 0.125 MG TABLET PO SCH (10:31)
[2017-09-06] MEDS: INSULIN LISPRO 100 UNIT/ML 3 ML VIAL SUBCUT PRN (12:45)
[2017-09-06 18:25] LABS: VANCOMYCIN,TROUGH 16.4 ug/mL (5.0-20.0)
[2017-09-07] MEDS: IPRATROPIUM/ALBUTEROL 0.5-2.5 MG/3 ML AMPUL NEB SCH ×3 (00:25→07:47)
[2017-09-07] MEDS: VANCOMYCIN HCL 750 MG in DEXTROSE 5%-WATER 250 ML IV SCH (01:44)
[2017-09-07] MEDS: MEROPENEM 1 GM in NORMAL SALINE 100 ML IV SCH ×3 (01:45→18:36)
[2017-09-07] MEDS: DILTIAZEM HCL 30 MG TABLET PO SCH ×4 (01:45→18:34)
[2017-09-07] MEDS: POTASSI CL 40 MEQ/NS 1L 1,000 ML IV PRN ×2 (01:46→18:36)
[2017-09-07 04:48] LABS: HEMATOCRIT 26.8 % (37.9-51.0); HEMOGLOBIN 8.7 g/dL (13.5-17.0); MEAN CORPUSCULAR HEMOGLOBIN 25.8 pg (27.0-33.4); MEAN CORPUSCULAR HGB CONC 32.4 g/dL (32.0-36.0); MEAN CORPUSCULAR VOLUME 80 fl (80-97); PLATELET COUNT 922 10^3/uL (150-450); RED BLOOD COUNT 3.37 10^6/uL (4.35-5.55); RED CELL DISTRIBUTION WIDTH 19.5 % (11.5-14.0); WHITE BLOOD COUNT 21.2 10^3/uL (4.0-10.5)
[2017-09-07 05:02] LABS: CALCIUM 8.6 mg/dL (8.4-10.2); CHLORIDE 97 mmol/L (98-107); GLUCOSE 120 mg/dL (75-110); POTASSIUM 4.5 mmol/L (3.6-5.0); SODIUM 134.6 mmol/L (137-145)
[2017-09-07 05:08] LABS: ABSOLUTE LYMPHOCYTES# (MANUAL) 4.7 10^3/uL (0.5-4.7); ABSOLUTE MONOCYTES # (MANUAL) 0.8 10^3/uL (0.1-1.4); ABSOLUTE NEUTROPHILS# (MANUAL) 14.8 10^3/uL (1.7-8.2); BAND NEUTROPHILS % (MANUAL) 1 % (3-5); BASOPHILS % (MANUAL) 0 % (0-2); EOSINOPHILS % (MANUAL) 4 % (0-6); LYMPHOCYTES % (MANUAL) 22 % (13-45); MONOCYTES % (MANUAL) 4 % (3-13); SEGMENTED NEUTROPHILS % (MAN) 69 % (42-78); TOTAL CELLS COUNTED 100
[2017-09-07 05:10] LABS: PLATELET COMMENT INCREASED
[2017-09-07 05:11] LABS: ANISOCYTOSIS 2+; POLYCHROMASIA SLIGHT; TARGET CELLS 1+; TOXIC GRANULATION 1+; TOXIC VACUOLATION PRESENT
[2017-09-07 05:16] LABS: BLOOD UREA NITROGEN < 2 mg/dL (7-20); DIGOXIN < 0.40 ng/mL (0.8-2.0)
[2017-09-07 05:24] LABS: ANION GAP 4 (5-19); CARBON DIOXIDE 34 mmol/L (22-30)
[2017-09-07] MEDS: OXYCODONE HCL IR 5 MG TABLET PO PRN ×2 (08:40→16:07)
[2017-09-07 09:08] LABS: APPEARANCE,URINE CLEAR; BILIRUBIN,URINE NEGATIVE (NEGATIVE); COLOR,URINE YELLOW; GLUCOSE, URINE NEGATIVE (NEGATIVE); KETONES,URINE NEGATIVE (NEGATIVE); LEUKOCYTE ESTERASE,URINE NEGATIVE (NEGATIVE); NITRITE,URINE NEGATIVE (NEGATIVE); PROTEIN,URINE NEGATIVE (NEGATIVE); URINE SPECIFIC GRAVITY 1.005; UROBILINOGEN,URINE NEGATIVE mg/dL (<2.0)
[2017-09-07] MEDS: DULOXETINE HCL 30 MG CAPSULE.DR PO SCH ×2 (09:38→21:33)
[2017-09-07] MEDS: DIGOXIN 0.125 MG TABLET PO SCH (09:38)
[2017-09-07] MEDS: MORPHINE SULFATE SR 100 MG TABLET PO SCH ×2 (09:40→21:36)
[2017-09-07] MEDS: ENOXAPARIN SODIUM INJ 60 MG/0.6 ML DISP.SYRIN SUBCUT SCH ×2 (09:43→21:33)
[2017-09-07] MEDS: FAMOTIDINE INJ/PF 20 MG/2 ML SDV IV SCH ×2 (09:44→21:33)
[2017-09-07] MEDS: ONDANSETRON 4 MG TAB.RAPDIS PO PRN (12:52)
--- NOTE | 2017-09-07 12:54 | PDOC PROGRESS REPORT ---
Subjective Progress Note for:: 09/07/17 Subjective:: Patient admitted with septic shock, feeling better, awaiting transfer out of ICU Reason For Visit: DKA, SEPSIS Physical Exam Vital Signs: Temp Pulse Resp BP Pulse Ox 99.3 F 107 H 9 L 119/82 91 L 09/06/17 23:10 09/07/17 08:00 09/07/17 12:00 09/07/17 09:39 09/07/17 09:39 Intake & Output 09/06/17 09/07/17 09/08/17 06:59 06:59 06:59 Intake Total 2164 2365 200 Output Total 4025 2025 750 Balance -1861 340 -550 Weight 51.7 kg 52.3 kg General appearance: PRESENT: no acute distress, thin - Chronically ill looking Head exam: PRESENT: atraumatic Eye exam: PRESENT: conjunctiva pink, EOMI, PERRLA. ABSENT: scleral icterus Ear exam: PRESENT: normal external ear exam Neck exam: ABSENT: carotid bruit, JVD, lymphadenopathy, thyromegaly Respiratory exam: PRESENT: clear to auscultation da[place]. ABSENT: rales, rhonchi, wheezes Cardiovascular exam: PRESENT: RRR. ABSENT: diastolic murmur, rubs, systolic murmur Pulses: PRESENT: normal dorsalis pedis pul GI/Abdominal exam: PRESENT: normal bowel sounds, soft. ABSENT: distended, guarding, mass, organolmegaly, rebound, tenderness Rectal exam: PRESENT: deferred Musculoskeletal exam: PRESENT: other - Multiple skin ulcers and wounds as previously described Neurological exam: PRESENT: alert, awake, oriented to person, oriented to place , oriented to time, oriented to situation, CN II-XII grossly intact. ABSENT: motor sensory deficit Psychiatric exam: PRESENT: appropriate affect, normal mood. ABSENT: homicidal ideation, suicidal ideation Skin exam: PRESENT: rash Results Laboratory Results: 09/07/17 04:26 09/07/17 04:26 09/07/17 09/07/17 09/07/17 04:26 04:26 08:33 WBC 21.2 H RBC 3.37 L Hgb 8.7 L Hct 26.8 L MCV 80 MCH 25.8 L MCHC 32.4 RDW 19.5 H Plt Count 922 H Seg Neutrophils % Not Reportable Lymphocytes % Not Reportable Monocytes % Not Reportable Eosinophils % Not Reportable Basophils % Not Reportable Absolute Neutrophils Not Reportable Absolute Lymphocytes Not Reportable Absolute Monocytes Not Reportable Absolute Eosinophils Not Reportable Absolute Basophils Not Reportable Sodium 134.6 L Potassium 4.5 Chloride 97 L Carbon Dioxide 34 H Anion Gap 4 L BUN < 2 L Creatinine 0.42 L Est GFR ( Amer) > 60 Est GFR (Non-Af Amer) > 60 Glucose 120 H Calcium 8.6 Urine Color Urine Appearance Urine pH Ur Specific [place] Urine Protein Urine Glucose (UA) Urine Ketones Urine Blood Urine Nitrite Ur Leukocyte Esterase Urine WBC (Auto) Urine RBC (Auto) Stool Occult Blood NEGATIVE 09/07/17 08:33 WBC RBC Hgb Hct MCV MCH MCHC RDW Plt Count Seg Neutrophils % Lymphocytes % Monocytes % Eosinophils % Basophils % Absolute Neutrophils Absolute Lymphocytes Absolute Monocytes Absolute Eosinophils Absolute Basophils Sodium Potassium Chloride Carbon Dioxide Anion Gap BUN Creatinine Est GFR ( Amer) Est GFR (Non-Af Amer) Glucose Calcium Urine Color YELLOW Urine Appearance CLEAR Urine pH 7.0 Ur Specific [place] 1.005 Urine Protein NEGATIVE Urine Glucose (UA) NEGATIVE Urine Ketones NEGATIVE Urine Blood NEGATIVE Urine Nitrite NEGATIVE Ur Leukocyte Esterase NEGATIVE Urine WBC (Auto) 4 Urine RBC (Auto) 0 Stool Occult Blood 09/02/17 11:03 Blood Blood Culture - Final NO GROWTH IN 5 DAYS 09/02/17 10:10 Blood Blood Culture - Final NO GROWTH IN 5 DAYS 08/24/17 08/24/17 08/25/17 18:00 22:00 05:15 Creatine Kinase 140 117 82 CK-MB (CK-2) Troponin I NT-Pro-B Natriuret Pep 09/02/17 09/02/17 09/03/17 17:45 17:45 05:35 Creatine Kinase 50 L CK-MB (CK-2) 0.40 Troponin I 0.027 NT-Pro-B Natriuret Pep 4690 H Impressions: Thoracic Spine CT 08/26/17 08:00 IMPRESSION: No acute findings in the thoracic spine. Abdomen/Pelvis CT 08/27/17 00:00 IMPRESSION: 1. Extensive basilar pulmonary changes suggesting pneumonia. 2. No evidence of intra- abdominal or intrapelvic abscess or drainable collection. Postoperative changes as above without evidence of mechanical bowel obstruction. 3. Marked irregular soft tissue loss in the proximal left posterior and medial thigh, incompletely assessed. No suggestion of regional drainable collection as imaged. Chest X-Ray 09/03/17 06:00 IMPRESSION: 1. Interval removal of left IJ central venous catheter. Otherwise stable appearance of the chest with persistent patchy bibasilar opacity. Assessment & Plan - Time Time Spent with patient: 15-24 minutes Medications reviewed and adjusted accordingly: Yes Within: within 72 hours - Inpatient Certification Medical Necessity: Need For Continuous Telemetry Monitoring, Need for IV Antibiotics - Plan Summary Plan Summary: 1.Acute respiratory failure with hypoxia status post extubation. Patient respiratory status remains stable MRSA pneumonitis- cont Vancomycin 2. Septic shock secondary to deep skin infection and pneumonia resolved 3. Hypokalemia Replaced 4. Buttocks and scrotal abscess- continue wound care and antibiotics 5. Protein calorie malnutrition continue supplements 6. Tobacco abuse disorder- counselling 7. Atrial fibrillation with rapid ventricular response, transient and appears to have resolved. Continue Digoxin, increase Cardizem dose as appropriate 8. Anemia of chronic disease-hemoglobin stable 9. Patient still awaiting transfer out of the intensive care unit to telemetry floor. 10.Bilateral pneumonia status post mechanical intubation. Cultures MRSA positive. Patient remains on Vancomycin 11. Multiple decubitus ulcers possibly infected and contributing to the septic shock 12,Groin abscess status post I&D on 08/30. Follow-up on cultures and adjust antibiotics as needed 13. Hidradenitis suppurativa of the anus 14. Reactive thrombocytosis his platelet is actually worsening along with a leukocytosis. Will consider further referrals as appropriate
[2017-09-07] MEDS ORDERED: DIGOXIN 0.125 MG TABLET PO SCH (12:55)
[2017-09-08] MEDS: ONDANSETRON 4 MG TAB.RAPDIS PO PRN (00:07)
[2017-09-08] MEDS: DILTIAZEM HCL 30 MG TABLET PO SCH ×5 (00:08→23:35)
[2017-09-08] MEDS: OXYCODONE HCL IR 5 MG TABLET PO PRN ×4 (01:06→23:36)
[2017-09-08] MEDS ORDERED: MEROPENEM 1 GM in NORMAL SALINE 100 ML IV SCH (02:00)
[2017-09-08 04:17] LABS: HEMATOCRIT 27.6 % (37.9-51.0); HEMOGLOBIN 8.8 g/dL (13.5-17.0); MEAN CORPUSCULAR HEMOGLOBIN 25.5 pg (27.0-33.4); MEAN CORPUSCULAR HGB CONC 32.1 g/dL (32.0-36.0); MEAN CORPUSCULAR VOLUME 80 fl (80-97); PLATELET COUNT 926 10^3/uL (150-450); RED BLOOD COUNT 3.47 10^6/uL (4.35-5.55); RED CELL DISTRIBUTION WIDTH 19.2 % (11.5-14.0)
[2017-09-08] MEDS: FAMOTIDINE INJ/PF 20 MG/2 ML SDV IV SCH ×2 (09:52→21:20)
[2017-09-08] MEDS: ENOXAPARIN SODIUM INJ 60 MG/0.6 ML DISP.SYRIN SUBCUT SCH (09:52)
[2017-09-08] MEDS: MORPHINE SULFATE SR 100 MG TABLET PO SCH ×2 (09:52→21:20)
[2017-09-08] MEDS: DULOXETINE HCL 30 MG CAPSULE.DR PO SCH ×2 (09:52→21:23)
--- NOTE | 2017-09-08 16:15 | PDOC PROGRESS REPORT ---
Subjective Progress Note for:: 09/08/17 Subjective:: Patient admitted with septic shock, feeling better, denies any new symptoms. He is bed bound though says he was ambulatory till recently. Reason For Visit: DKA, SEPSIS Physical Exam Vital Signs: Temp Pulse Resp BP Pulse Ox 99.3 F 108 H 16 126/81 H 93 09/08/17 12:27 09/08/17 14:00 09/08/17 12:27 09/08/17 12:27 09/08/17 12:27 Intake & Output 09/07/17 09/08/17 09/09/17 06:59 06:59 06:59 Intake Total 2365 2173 Output Total 2024 3650 1000 Balance 340 -9370 -1000 Weight 52.3 kg 93.9 kg General appearance: PRESENT: no acute distress, thin, other - Chronically ill looking Head exam: PRESENT: atraumatic Eye exam: PRESENT: conjunctiva pink, EOMI, PERRLA. ABSENT: scleral icterus Respiratory exam: PRESENT: clear to auscultation [place], unlabored Cardiovascular exam: PRESENT: RRR, tachycardia. ABSENT: diastolic murmur, rubs , systolic murmur GI/Abdominal exam: PRESENT: other - colostomy with brownish stool Extremities exam: PRESENT: other - loss of muscle tone Neurological exam: PRESENT: alert, awake, oriented to person, oriented to place , oriented to time, oriented to situation, CN II-XII grossly intact. ABSENT: motor sensory deficit Psychiatric exam: PRESENT: flat affect Skin exam: PRESENT: other - wound inner Left thigh with packing superficial wounds and skin breakdown upper back and outer L thigh, sacral area DTI both heels Results Laboratory Results: 09/08/17 04:05 09/07/17 04:26 09/08/17 04:05 WBC 19.0 H RBC 3.47 L Hgb 8.8 L Hct 27.6 L MCV 80 MCH 25.5 L MCHC 32.1 RDW 19.2 H Plt Count 926 H 09/02/17 11:03 Blood Blood Culture - Final NO GROWTH IN 5 DAYS 08/24/17 08/24/17 08/25/17 18:00 22:00 05:15 Creatine Kinase 140 117 82 CK-MB (CK-2) Troponin I NT-Pro-B Natriuret Pep 09/02/17 09/02/17 09/03/17 17:45 17:45 05:35 Creatine Kinase 50 L CK-MB (CK-2) 0.40 Troponin I 0.027 NT-Pro-B Natriuret Pep 4690 H Impressions: Thoracic Spine CT 08/26/17 08:00 IMPRESSION: No acute findings in the thoracic spine. Abdomen/Pelvis CT 08/27/17 00:00 IMPRESSION: 1. Extensive basilar pulmonary changes suggesting pneumonia. 2. No evidence of intra- abdominal or intrapelvic abscess or drainable collection. Postoperative changes as above without evidence of mechanical bowel obstruction. 3. Marked irregular soft tissue loss in the proximal left posterior and medial thigh, incompletely assessed. No suggestion of regional drainable collection as imaged. Chest X-Ray 09/03/17 06:00 IMPRESSION: 1. Interval removal of left IJ central venous catheter. Otherwise stable appearance of the chest with persistent patchy bibasilar opacity. Assessment & Plan - Plan Summary Plan Summary: 1.Acute respiratory failure with hypoxia status post extubation. Patient respiratory status remains stable MRSA pneumonitis- completed Vancomycin 14 days treatment on 09/07 2. Septic shock secondary to deep skin infection and pneumonia resolved 3. Hypokalemia Replaced 4. Buttocks and scrotal abscess- Poly organisms, continue wound care. Now off antibiotics 5. Protein calorie malnutrition continue supplements 6. Tobacco abuse disorder- counselling 7. Atrial fibrillation with rapid ventricular response, transient and appears to have resolved. Discussed with Dr. Jackson today. He suggests to dc Full strength Lovenox and Dig and to adjust Cardizem for optimal Rate control. His current tachycardia likely being driven by underlying disease. 8. Anemia of chronic disease-hemoglobin stable 9. Malnutrition- encourage feeding 10.Bilateral pneumonia status post mechanical intubation. Cultures MRSA positive. Completed Vancomycin 11. Multiple decubitus ulcers possibly infected and contributing to the septic shock 12,Groin abscess status post I&D on 08/30. Follow-up on cultures and adjust antibiotics as needed 13. Hidradenitis suppurativa of the anus 14. Reactive thrombocytosis his platelet is actually worsening along with a leukocytosis. Wonder if patient still has a focus of infection somewhere although he is clinically improved. Would consider panculture and imaging tests if is wbc and platelet remain elevated
[2017-09-09 04:42] LABS: HEMATOCRIT 29.3 % (37.9-51.0); HEMOGLOBIN 9.2 g/dL (13.5-17.0); MEAN CORPUSCULAR HEMOGLOBIN 25.3 pg (27.0-33.4); MEAN CORPUSCULAR HGB CONC 31.5 g/dL (32.0-36.0); MEAN CORPUSCULAR VOLUME 80 fl (80-97); PLATELET COUNT 952 10^3/uL (150-450); RED BLOOD COUNT 3.64 10^6/uL (4.35-5.55); RED CELL DISTRIBUTION WIDTH 19.3 % (11.5-14.0); WHITE BLOOD COUNT 18.8 10^3/uL (4.0-10.5)
[2017-09-09 04:57] LABS: APPEARANCE,URINE CLEAR; BILIRUBIN,URINE NEGATIVE (NEGATIVE); COLOR,URINE YELLOW; GLUCOSE, URINE NEGATIVE (NEGATIVE); KETONES,URINE 20 mg/dL (NEGATIVE); LEUKOCYTE ESTERASE,URINE TRACE (NEGATIVE); NITRITE,URINE NEGATIVE (NEGATIVE); PROTEIN,URINE 30 mg/dL (NEGATIVE); URINE SPECIFIC GRAVITY 1.009; UROBILINOGEN,URINE NEGATIVE mg/dL (<2.0)
[2017-09-09] MEDS: DILTIAZEM HCL 30 MG TABLET PO SCH ×4 (05:17→23:23)
[2017-09-09] MEDS: OXYCODONE HCL IR 5 MG TABLET PO PRN ×4 (06:55→23:24)
[2017-09-09] MEDS: POTASSI CL 40 MEQ/NS 1L 1,000 ML IV PRN ×2 (07:23→20:40)
[2017-09-09] MEDS: FAMOTIDINE INJ/PF 20 MG/2 ML SDV IV SCH ×2 (09:19→23:23)
[2017-09-09] MEDS: ENOXAPARIN SODIUM INJ 40 MG/0.4 ML DISP.SYRIN SUBCUT SCH (09:19)
[2017-09-09] MEDS: MORPHINE SULFATE SR 100 MG TABLET PO SCH ×2 (09:19→23:23)
[2017-09-09] MEDS: DULOXETINE HCL 30 MG CAPSULE.DR PO SCH ×2 (09:19→23:23)
[2017-09-09] MEDS ORDERED: ENOXAPARIN SODIUM INJ 60 MG/0.6 ML DISP.SYRIN SUBCUT SCH (10:00)
--- NOTE | 2017-09-09 15:29 | PDOC PROGRESS REPORT ---
Subjective Progress Note for:: 09/09/17 Subjective:: Patient is having severe bilateral foot and distal leg pain. He describes it as burning. It is preventing him from being able to stand. He can barely move his feet around in the bed the pain is so severe. The patient takes Neurontin at home is not on Neurontin here. He states that this does feel like his diabetic neuropathy pain. Otherwise he is breathing without difficulty. No cough phlegm shortness of breath. No fevers or chills. His appetite is improving to some degree. No chest pain. He does not feel confused. Reason For Visit: DKA, SEPSIS Physical Exam Vital Signs: Temp Pulse Resp BP Pulse Ox 99.0 F 114 H 20 149/83 H 94 09/09/17 11:34 09/09/17 12:51 09/09/17 12:51 09/09/17 11:34 09/09/17 12:51 Intake & Output 09/08/17 09/09/17 09/10/17 06:59 06:59 06:59 Intake Total 2173 375 0 Output Total 3650 1600 300 Balance -1477 -1225 -300 Weight 93.9 kg General appearance: PRESENT: thin, other - Moderate distress Head exam: PRESENT: atraumatic, normocephalic, other - Bitemporal wasting present Eye exam: PRESENT: conjunctiva pink, EOMI. ABSENT: scleral icterus Ear exam: PRESENT: normal external ear exam. ABSENT: drainage Mouth exam: PRESENT: moist, tongue midline Respiratory exam: PRESENT: decreased breath sounds - At the bilateral bases. ABSENT: rales, rhonchi, wheezes Cardiovascular exam: PRESENT: RRR. ABSENT: systolic murmur Pulses: PRESENT: normal radial pulses GI/Abdominal exam: PRESENT: normal bowel sounds, soft. ABSENT: distended, tenderness Rectal exam: PRESENT: deferred Gentrourinary exam: PRESENT: indwelling catheter. ABSENT: scrotal swelling, urethral discharge Extremities exam: PRESENT: pedal edema, tenderness. ABSENT: full ROM Musculoskeletal exam: PRESENT: other - sarcopenia present Neurological exam: PRESENT: alert, awake, oriented to person, oriented to place , oriented to situation Psychiatric exam: PRESENT: flat affect. ABSENT: agitated Skin exam: PRESENT: dry, pallor, warm, other - groin wounds without complication Results Laboratory Results: 09/09/17 04:00 09/07/17 04:26 09/09/17 09/09/17 09/09/17 04:00 04:00 04:00 WBC 18.8 H RBC 3.64 L Hgb 9.2 L Hct 29.3 L MCV 80 MCH 25.3 L MCHC 31.5 L RDW 19.3 H Plt Count 952 H Urine Color YELLOW Urine Appearance CLEAR Urine pH 6.0 Ur Specific [place] 1.009 Urine Protein 30 H Urine Glucose (UA) NEGATIVE Urine Ketones 20 H Urine Blood SMALL H Urine Nitrite NEGATIVE Ur Leukocyte Esterase TRACE H Urine WBC (Auto) 6 Urine RBC (Auto) 2 Stool Occult Blood NEGATIVE 08/24/17 08/24/17 08/25/17 18:00 22:00 05:15 Creatine Kinase 140 117 82 CK-MB (CK-2) Troponin I NT-Pro-B Natriuret Pep 09/02/17 09/02/17 09/03/17 17:45 17:45 05:35 Creatine Kinase 50 L CK-MB (CK-2) 0.40 Troponin I 0.027 NT-Pro-B Natriuret Pep 4690 H Impressions: Thoracic Spine CT 08/26/17 08:00 IMPRESSION: No acute findings in the thoracic spine. Abdomen/Pelvis CT 08/27/17 00:00 IMPRESSION: 1. Extensive basilar pulmonary changes suggesting pneumonia. 2. No evidence of intra- abdominal or intrapelvic abscess or drainable collection. Postoperative changes as above without evidence of mechanical bowel obstruction. 3. Marked irregular soft tissue loss in the proximal left posterior and medial thigh, incompletely assessed. No suggestion of regional drainable collection as imaged. Chest X-Ray 09/03/17 06:00 IMPRESSION: 1. Interval removal of left IJ central venous catheter. Otherwise stable appearance of the chest with persistent patchy bibasilar opacity. Assessment & Plan - Diagnosis (1) Abscess or cellulitis of perineum Is this a current diagnosis for this admission?: Yes (2) Diabetic keto-acidosis Qualifiers: Diabetes mellitus type: type 1 Diabetes mellitus complication detail: with coma Qualified Code(s): E10.11 - Type 1 diabetes mellitus with ketoacidosis with coma Is this a current diagnosis for this admission?: Yes (3) Hidradenitis suppurativa of anus Is this a current diagnosis for this admission?: Yes (4) Severe protein-calorie malnutrition Is this a current diagnosis for this admission?: Yes (5) Acute and chronic respiratory failure Qualifiers: Respiratory failure complication: hypoxia Qualified Code(s): J96.21 - Acute and chronic respiratory failure with hypoxia Is this a current diagnosis for this admission?: Yes (6) Crohns disease Qualifiers: Gastrointestinal tract location: unspecified location Is this a current diagnosis for this admission?: Yes (7) Hypotension Qualifiers: Hypotension type: other hypotension type Qualified Code(s): I95.89 - Other hypotension Is this a current diagnosis for this admission?: Yes (8) Leukocytosis Qualifiers: Leukocytosis type: bandemia Qualified Code(s): D72.825 - Bandemia Is this a current diagnosis for this admission?: Yes (9) Pneumonia Qualifiers: Laterality: bilateral Lung location: unspecified part of lung Is this a current diagnosis for this admission?: Yes (10) Hypoxic brain injury Is this a current diagnosis for this admission?: Yes (11) Diabetic neuropathy Qualifiers: Diabetes mellitus type: type 1 Diabetes mellitus complication detail: diabetic polyneuropathy Qualified Code(s): E10.42 - Type 1 diabetes mellitus with diabetic polyneuropathy Is this a current diagnosis for this admission?: Yes (12) Diabetes mellitus Qualifiers: Diabetes mellitus type: type 1 Diabetes mellitus complication status: with unspecified complications Qualified Code(s): E10.8 - Type 1 diabetes mellitus with unspecified complications Is this a current diagnosis for this admission?: Yes (13) Chronic pain Qualifiers: Chronic pain type: chronic pain syndrome Qualified Code(s): G89.4 - Chronic pain syndrome (14) Opioid dependence in controlled environment Is this a current diagnosis for this admission?: Yes - Time Time Spent with patient: 25-34 minutes Anticipated discharge: Acute Rehab - Inpatient Certification Based on my medical assessment, after consideration of the patient's comorbidities, presenting symptoms, or acuity I expect that the services needed warrant INPATIENT care.: Yes I certify that my determination is in accordance with my understanding of Medicare's requirements for reasonable and necessary INPATIENT services [42 CFR 412.3e].: Yes Medical Necessity: Significant Comorbidiites Make Outpatient Treatment Too Risky , Need Close Monitoring Due to Risk of Patient Decompensation, Need for Pain Control, Risk of Complication if Not Cared For in Hospital - Plan Summary Plan Summary: -Diabetic neuropathy. Pain is very poorly controlled. He has been off of his gabapentin for an unknown period of time. He takes 600 mg p.o. every 8 hours at home and I am starting him on 300 mg p.o. every 12 and will up titrate as indicated. This is driving some of his tachycardia. -Chronic pain. He is on long-acting morphine 100 mg p.o. every 12 hours along with as needed oxycodone and he is receiving these in the hospital. -Acute respiratory failure with hypoxia status post extubation. Patients respiratory status remains stable. MRSA pneumonitis- completed Vancomycin 14 days treatment on 09/07. -Septic shock secondary to deep skin infection and pneumonia resolved -Hypokalemia. Continue to monitor and replete as indicated. -Buttocks and scrotal abscess- Poly organisms, continue wound care. Now off antibiotics. Wound care continues, wound is healing well. -Protein calorie malnutrition. Nutrition consult placed. Patient will likely need supplements. -Tobacco abuse disorder- counselling once patient is receptive, he is not today. -Atrial fibrillation with rapid ventricular response, transient and appears to have resolved. Has been discussed with Dr. Jackson. He suggests to dc full strength Lovenox and Dig, and to adjust Cardizem for optimal rate control. This has been done and he continues on Cardizem 30 mg p.o. every 6 hours. I think at this point the patient's tachycardia which persists is being driven by the underlying disease including uncontrolled pain. We will continue to treat underlying problems while monitoring heart rate. -Anemia of chronic disease-hemoglobin stable -Malnutrition- encourage feeding and nutrition consult placed today -Bilateral pneumonia status post mechanical intubation. Cultures MRSA positive. Completed Vancomycin. Continue to monitor respiratory status and prolonged hospitalization. -Multiple decubitus ulcers possibly infected and contributing to the septic shock read wound care being performed. -Groin abscess status post I&D on 08/30. Follow-up on cultures and adjust antibiotics as needed -Hidradenitis suppurativa of the anus. Chronic stable and contributing to his pain syndrome. -Reactive thrombocytosis his platelet is worsening along with a leukocytosis ( leukocytosis has improved slightly over the past few days). Wonder if patient still has a focus of infection somewhere although he is clinically improved. Will reevaluate tomorrow with repeat CBC and if platelets continue to increase and there is no improvement in the leukocytosis will panculture and consider imaging.
[2017-09-09] MEDS: GABAPENTIN 300 MG CAPSULE PO SCH (23:23)
[2017-09-10] MEDS: DILTIAZEM HCL 30 MG TABLET PO SCH ×2 (05:44→11:48)
[2017-09-10] MEDS: OXYCODONE HCL IR 5 MG TABLET PO PRN ×2 (05:44→16:29)
[2017-09-10] MEDS: FAMOTIDINE INJ/PF 20 MG/2 ML SDV IV SCH (11:48)
[2017-09-10] MEDS: MULTIVITAMINS W-IRON TABLET, CHEWABLE PO SCH (11:48)
[2017-09-10] MEDS: MORPHINE SULFATE SR 100 MG TABLET PO SCH (11:49)
[2017-09-10] MEDS: DULOXETINE HCL 30 MG CAPSULE.DR PO SCH (11:49)
[2017-09-10] MEDS: ENOXAPARIN SODIUM INJ 40 MG/0.4 ML DISP.SYRIN SUBCUT SCH (11:50)
[2017-09-10] MEDS: GABAPENTIN 300 MG CAPSULE PO SCH (11:50)
[2017-09-10 15:09] LABS: ANION GAP 9 (5-19); BLOOD UREA NITROGEN 2 mg/dL (7-20); CALCIUM 9.8 mg/dL (8.4-10.2); CARBON DIOXIDE 28 mmol/L (22-30); CHLORIDE 92 mmol/L (98-107); GLUCOSE 175 mg/dL (75-110); POTASSIUM 4.5 mmol/L (3.6-5.0); SODIUM 128.8 mmol/L (137-145)
--- NOTE | 2017-09-10 17:33 | PDOC PROGRESS REPORT ---
Subjective Progress Note for:: 09/10/17 Subjective:: Patient states that his foot pain is improved. He has groin pain which seems to be worsening. His appetite is poor but he is willing to try to eat as much as he can. He would like help with eating. He feels weak. Patient is not oriented completely to situation though he is oriented to the fact that he is in the hospital and is oriented to self. Subjective may be compromised. Reason For Visit: DKA, SEPSIS Physical Exam Vital Signs: Temp Pulse Resp BP Pulse Ox 98.0 F 112 H 20 133/79 H 94 09/10/17 08:21 09/10/17 08:21 09/10/17 08:21 09/10/17 08:21 09/10/17 08:21 Intake & Output 09/09/17 09/10/17 09/11/17 06:59 06:59 06:59 Intake Total 375 2625 360 Output Total 1600 1826 500 Balance -1225 799 -140 Weight 93.3 kg General appearance: PRESENT: mild distress, thin Head exam: PRESENT: atraumatic, normocephalic Eye exam: PRESENT: conjunctiva pink. ABSENT: scleral icterus Ear exam: ABSENT: normal external ear exam Mouth exam: PRESENT: moist, tongue midline Respiratory exam: PRESENT: clear to auscultation daija, unlabored. ABSENT: crackles, rhonchi, wheezes Cardiovascular exam: PRESENT: irregular rhythm, tachycardia Pulses: PRESENT: normal radial pulses GI/Abdominal exam: PRESENT: soft, other - Ostomy bag in place with liquid brown stool. ABSENT: distended, tenderness Rectal exam: PRESENT: deferred Gentrourinary exam: PRESENT: other - Normal external male genitAlia, no edema him a Landry catheter in place draining clear yellow urine Extremities exam: PRESENT: tenderness. ABSENT: pedal edema Musculoskeletal exam: ABSENT: ambulatory Neurological exam: PRESENT: awake, oriented to person, oriented to place, other - Follows commands appropriately. He is not oriented to situation or time. Psychiatric exam: PRESENT: unusual affect. ABSENT: anxious Skin exam: PRESENT: pallor Results Laboratory Results: 09/09/17 04:00 09/10/17 14:00 09/10/17 14:00 Sodium 128.8 L Potassium 4.5 Chloride 92 L Carbon Dioxide 28 Anion Gap 9 BUN 2 L Creatinine 0.43 L Est GFR ( Amer) > 60 Est GFR (Non-Af Amer) > 60 Glucose 175 H Calcium 9.8 Magnesium 1.4 L 08/24/17 08/24/17 08/25/17 18:00 22:00 05:15 Creatine Kinase 140 117 82 CK-MB (CK-2) Troponin I NT-Pro-B Natriuret Pep 09/02/17 09/02/17 09/03/17 17:45 17:45 05:35 Creatine Kinase 50 L CK-MB (CK-2) 0.40 Troponin I 0.027 NT-Pro-B Natriuret Pep 4690 H Impressions: Thoracic Spine CT 08/26/17 08:00 IMPRESSION: No acute findings in the thoracic spine. Abdomen/Pelvis CT 08/27/17 00:00 IMPRESSION: 1. Extensive basilar pulmonary changes suggesting pneumonia. 2. No evidence of intra- abdominal or intrapelvic abscess or drainable collection. Postoperative changes as above without evidence of mechanical bowel obstruction. 3. Marked irregular soft tissue loss in the proximal left posterior and medial thigh, incompletely assessed. No suggestion of regional drainable collection as imaged. Chest X-Ray 09/03/17 06:00 IMPRESSION: 1. Interval removal of left IJ central venous catheter. Otherwise stable appearance of the chest with persistent patchy bibasilar opacity. Assessment & Plan - Diagnosis (1) Abscess or cellulitis of perineum Is this a current diagnosis for this admission?: Yes Plan: Wound care continues. No evidence at this point of worsening of these wounds or undrained abscess. Continue to monitor closely. (2) Diabetic keto-acidosis Qualifiers: Diabetes mellitus type: type 1 Diabetes mellitus complication detail: with coma Qualified Code(s): E10.11 - Type 1 diabetes mellitus with ketoacidosis with coma Is this a current diagnosis for this admission?: Yes Plan: Resolved. Glucose well controlled. Glucerna added to trays. Continue current plan. (3) Hidradenitis suppurativa of anus Is this a current diagnosis for this admission?: Yes Plan: Patient also appears to have hidradenitis in the groin. Secondary to persistent leukocytosis and thrombocytosis I evaluated the groin pretty closely and I think there are some draining areas. I am going to start him on clindamycin to include staph coverage. (4) Severe protein-calorie malnutrition Is this a current diagnosis for this admission?: Yes Plan: Mt added. Multivitamin added. Glucerna on tray. We will continue to encourage patient to eat well. (5) Acute and chronic respiratory failure Qualifiers: Respiratory failure complication: hypoxia Qualified Code(s): J96.21 - Acute and chronic respiratory failure with hypoxia Is this a current diagnosis for this admission?: Yes Plan: Recent chest x-ray clear. Patient is not having respiratory distress. This problem is resolved for now. (6) Crohns disease Qualifiers: Gastrointestinal tract location: unspecified location Is this a current diagnosis for this admission?: Yes Plan: No evidence of significant abdominal pain. No blood per rectum. This problem appears stable. (7) Hypotension Qualifiers: Hypotension type: other hypotension type Qualified Code(s): I95.89 - Other hypotension Is this a current diagnosis for this admission?: Yes Plan: Blood pressure well controlled. (8) Leukocytosis Qualifiers: Leukocytosis type: bandemia Qualified Code(s): D72.825 - Bandemia Is this a current diagnosis for this admission?: Yes Plan: There is a slight downward trend however the white count is still 18. His could be related to his hidradenitis. I have added clindamycin 300 mg p.o. every 8 hours. Follow CBC and groin drainage. (9) Pneumonia Qualifiers: Laterality: bilateral Lung location: unspecified part of lung Is this a current diagnosis for this admission?: Yes Plan: Resolved. (10) Hypoxic brain injury Is this a current diagnosis for this admission?: Yes Plan: Patient is acutely ill and not back to baseline. Need to monitor his mental status to further assess for evidence of hypoxic brain injury. (11) Diabetic neuropathy Qualifiers: Diabetes mellitus type: type 1 Diabetes mellitus complication detail: diabetic polyneuropathy Qualified Code(s): E10.42 - Type 1 diabetes mellitus with diabetic polyneuropathy Is this a current diagnosis for this admission?: Yes Plan: Improved today. We will continue gabapentin 600 mg p.o. every 12 hours. (12) Diabetes mellitus Qualifiers: Diabetes mellitus type: type 1 Diabetes mellitus complication status: with unspecified complications Qualified Code(s): E10.8 - Type 1 diabetes mellitus with unspecified complications Is this a current diagnosis for this admission?: Yes Plan: We will controlled. No changes today. (13) Chronic pain Qualifiers: Chronic pain type: chronic pain syndrome Qualified Code(s): G89.4 - Chronic pain syndrome Is this a current diagnosis for this admission?: Yes Plan: Patient has chronic pain related to hidradenitis. Continue his long-acting morphine and his as needed oxycodone. (14) Opioid dependence in controlled environment Is this a current diagnosis for this admission?: Yes Plan: No problems here. Continue to monitor for safe usage. - Time Time Spent with patient: 25-34 minutes Medications reviewed and adjusted accordingly: Yes - Inpatient Certification Based on my medical assessment, after consideration of the patient's comorbidities, presenting symptoms, or acuity I expect that the services needed warrant INPATIENT care.: Yes I certify that my determination is in accordance with my understanding of Medicare's requirements for reasonable and necessary INPATIENT services [42 CFR 412.3e].: Yes Medical Necessity: Significant Comorbidiites Make Outpatient Treatment Too Risky , Need Close Monitoring Due to Risk of Patient Decompensation, Need for Pain Control, Risk of Complication if Not Cared For in Hospital
[2017-09-10] MEDS ORDERED: CLINDAMYCIN HCL 150 MG CAPSULE PO SCH (22:00)
[2017-09-10] MEDS ORDERED: DILTIAZEM HCL 60 MG TABLET PO SCH (22:00)
[2017-09-11] MEDS: GABAPENTIN 300 MG CAPSULE PO SCH ×2 (00:26→11:31)
[2017-09-11] MEDS: DULOXETINE HCL 30 MG CAPSULE.DR PO SCH ×2 (00:26→11:32)
[2017-09-11] MEDS: FAMOTIDINE INJ/PF 20 MG/2 ML SDV IV SCH ×2 (00:26→11:31)
[2017-09-11] MEDS: MORPHINE SULFATE SR 100 MG TABLET PO SCH ×2 (00:27→11:32)
[2017-09-11 06:09] LABS: HEMATOCRIT 29.9 % (37.9-51.0); HEMOGLOBIN 9.5 g/dL (13.5-17.0); MEAN CORPUSCULAR HEMOGLOBIN 25.2 pg (27.0-33.4); MEAN CORPUSCULAR HGB CONC 31.6 g/dL (32.0-36.0); MEAN CORPUSCULAR VOLUME 80 fl (80-97); PLATELET COUNT 756 10^3/uL (150-450); RED BLOOD COUNT 3.76 10^6/uL (4.35-5.55); RED CELL DISTRIBUTION WIDTH 18.6 % (11.5-14.0)
[2017-09-11 06:15] LABS: ALANINE AMINOTRANSFERASE 17 U/L (21-72); ALBUMIN 2.8 g/dL (3.5-5.0); ALKALINE PHOSPHATASE 185 U/L (38-126); ANION GAP 10 (5-19); ASPARTATE AMINO TRANSFERASE 13 U/L (17-59); BILIRUBIN,DIRECT 0.2 mg/dL (0.0-0.4); BILIRUBIN,TOTAL 0.4 mg/dL (0.2-1.3); BLOOD UREA NITROGEN 8 mg/dL (7-20); CALCIUM 10.7 mg/dL (8.4-10.2); CARBON DIOXIDE 33 mmol/L (22-30); CHLORIDE 90 mmol/L (98-107); GLUCOSE 150 mg/dL (75-110); POTASSIUM 4.3 mmol/L (3.6-5.0); SODIUM 132.6 mmol/L (137-145); TOTAL PROTEIN 6.3 g/dL (6.3-8.2)
[2017-09-11] MEDS ORDERED: VANCOMYCIN HCL INJ 1000 MG VIAL IV ONE (07:33)
[2017-09-11] MEDS ORDERED: VANCOMYCIN HCL 1,000 MG in DEXTROSE 5%-WATER 250 ML IV ONE ×2 (07:45→09:30)
[2017-09-11] MEDS ORDERED: VANCOMYCIN HCL INJ 1000 MG VIAL IV PRN (07:46)
[2017-09-11 08:05] LABS: ABSOLUTE LYMPHOCYTES# (MANUAL) 5.4 10^3/uL (0.5-4.7); ABSOLUTE MONOCYTES # (MANUAL) 2.7 10^3/uL (0.1-1.4); BAND NEUTROPHILS % (MANUAL) 5 % (3-5); BASOPHILS % (MANUAL) 1 % (0-2); EOSINOPHILS % (MANUAL) 4 % (0-6); LYMPHOCYTES % (MANUAL) 25 % (13-45); MONOCYTES % (MANUAL) 15 % (3-13); SEGMENTED NEUTROPHILS % (MAN) 45 % (42-78); TOTAL CELLS COUNTED 100
[2017-09-11 08:07] LABS: ANISOCYTOSIS 1+; HYPOCHROMASIA 1+; PLATELET COMMENT INCREASED; POIKILOCYTOSIS 1+; POLYCHROMASIA SLIGHT; TARGET CELLS 1+
[2017-09-11] MEDS: ENOXAPARIN SODIUM INJ 40 MG/0.4 ML DISP.SYRIN SUBCUT SCH (11:36)
[2017-09-11] MEDS: MULTIVITAMINS W-IRON TABLET, CHEWABLE PO SCH (11:38)
[2017-09-11] MEDS ORDERED: DILTIAZEM HCL 60 MG TABLET PO ONE (12:00)
[2017-09-11] MEDS ORDERED: GABAPENTIN 300 MG CAPSULE PO SCH ×2 (14:15→22:00)
--- NOTE | 2017-09-11 14:16 | PDOC PROGRESS REPORT ---
Subjective Progress Note for:: 09/11/17 Subjective:: Patient is more alert and talkative today though he is confused. He is able to tell me his name. When I tell him he is in the hospital he tells me he knows that. He also tells me that his nurses are trying to kidnap him and that he is not joking about that. We were able to redirect him some but some confusion persists. Nonetheless patient is cooperative. He reports that his pain seems a bit better. He is breathing fine. No other complaints that are really comprehensible. Reason For Visit: DKA, SEPSIS Physical Exam Vital Signs: Temp Pulse Resp BP Pulse Ox 98.9 F 107 H 18 94/67 L 97 09/11/17 08:48 09/11/17 08:48 09/11/17 08:48 09/11/17 08:48 09/11/17 08:48 Intake & Output 09/10/17 09/11/17 09/12/17 06:59 06:59 06:59 Intake Total 2625 800 Output Total 1826 910 Balance 799 -110 Weight 93.3 kg General appearance: PRESENT: mild distress, thin Head exam: PRESENT: atraumatic, normocephalic Eye exam: PRESENT: conjunctiva pink. ABSENT: scleral icterus Ear exam: ABSENT: normal external ear exam Mouth exam: PRESENT: dry mucosa, other - white coating on tongue Neck exam: ABSENT: lymphadenopathy Respiratory exam: PRESENT: clear to auscultation daija. ABSENT: rales, rhonchi, wheezes Cardiovascular exam: PRESENT: tachycardia. ABSENT: irregular rhythm GI/Abdominal exam: PRESENT: normal bowel sounds, soft, other - Ostomy bag in place with liquid brown stool. ABSENT: distended, tenderness Rectal exam: ABSENT: black stool, bloody stool Gentrourinary exam: PRESENT: indwelling catheter. ABSENT: scrotal swelling, urethral discharge Musculoskeletal exam: PRESENT: other - She was able to move his legs slightly on command. Neurological exam: PRESENT: altered, awake, oriented to person. ABSENT: oriented to situation, aphasic Psychiatric exam: PRESENT: agitated, unusual affect Skin exam: PRESENT: warm - Please see wound note from patient's RN yesterday. Results Laboratory Results: 09/11/17 05:50 09/11/17 05:50 09/10/17 09/11/17 09/11/17 14:00 05:50 05:50 WBC 18.0 H RBC 3.76 L Hgb 9.5 L Hct 29.9 L MCV 80 MCH 25.2 L MCHC 31.6 L RDW 18.6 H Plt Count 756 H Seg Neutrophils % Not Reportable Lymphocytes % Not Reportable Monocytes % Not Reportable Eosinophils % Not Reportable Basophils % Not Reportable Absolute Neutrophils Not Reportable Absolute Lymphocytes Not Reportable Absolute Monocytes Not Reportable Absolute Eosinophils Not Reportable Absolute Basophils Not Reportable Sodium 128.8 L 132.6 L Potassium 4.5 4.3 Chloride 92 L 90 L Carbon Dioxide 28 33 H Anion Gap 9 10 BUN 2 L 8 Creatinine 0.43 L 0.40 L Est GFR ( Amer) > 60 > 60 Est GFR (Non-Af Amer) > 60 > 60 Glucose 175 H 150 H Calcium 9.8 10.7 H Magnesium 1.4 L Total Bilirubin 0.4 AST 13 L ALT 17 L Alkaline Phosphatase 185 H Total Protein 6.3 Albumin 2.8 L 08/24/17 08/24/17 08/25/17 18:00 22:00 05:15 Creatine Kinase 140 117 82 CK-MB (CK-2) Troponin I NT-Pro-B Natriuret Pep 09/02/17 09/02/17 09/03/17 17:45 17:45 05:35 Creatine Kinase 50 L CK-MB (CK-2) 0.40 Troponin I 0.027 NT-Pro-B Natriuret Pep 4690 H Impressions: Thoracic Spine CT 08/26/17 08:00 IMPRESSION: No acute findings in the thoracic spine. Abdomen/Pelvis CT 08/27/17 00:00 IMPRESSION: 1. Extensive basilar pulmonary changes suggesting pneumonia. 2. No evidence of intra- abdominal or intrapelvic abscess or drainable collection. Postoperative changes as above without evidence of mechanical bowel obstruction. 3. Marked irregular soft tissue loss in the proximal left posterior and medial thigh, incompletely assessed. No suggestion of regional drainable collection as imaged. Chest X-Ray 09/03/17 06:00 IMPRESSION: 1. Interval removal of left IJ central venous catheter. Otherwise stable appearance of the chest with persistent patchy bibasilar opacity. Assessment & Plan - Diagnosis (1) Abscess or cellulitis of perineum Is this a current diagnosis for this admission?: Yes Plan: Wound care continues. Wound continues to heal. (2) Diabetic keto-acidosis Qualifiers: Diabetes mellitus type: type 1 Diabetes mellitus complication detail: with coma Qualified Code(s): E10.11 - Type 1 diabetes mellitus with ketoacidosis with coma Is this a current diagnosis for this admission?: Yes Plan: Zoloft. Continue his current diabetic medications. (3) Hidradenitis suppurativa of anus Is this a current diagnosis for this admission?: Yes Plan: Patient also has hidradenitis in the groin. He probably has some lesions that are causing his of infection such as leukocytosis and thrombocytosis along with hypotension. I started patient on clindamycin orally yesterday. I also razia blood cultures and urine culture which is pending. First set of blood cultures is growing gram-positive cocci and so started the patient on vancomycin until we have more culture data. (4) Severe protein-calorie malnutrition Is this a current diagnosis for this admission?: Yes Plan: Continues. Patient has seen a general practice. We have added several nutritional supplements including a multivitamin and Mt. We will continue to encourage good oral intake and will assist with eating as necessary. (5) Acute and chronic respiratory failure Qualifiers: Respiratory failure complication: hypoxia Qualified Code(s): J96.21 - Acute and chronic respiratory failure with hypoxia Is this a current diagnosis for this admission?: Yes Plan: Much improved. No evidence of worsening respiratory status. Continue to monitor closely. (6) Crohns disease Qualifiers: Gastrointestinal tract location: unspecified location Is this a current diagnosis for this admission?: Yes Plan: Seems stable. No abdominal pain or bleeding. Continue to monitor. (7) Hypotension Qualifiers: Hypotension type: other hypotension type Qualified Code(s): I95.89 - Other hypotension Is this a current diagnosis for this admission?: Yes Plan: Patient is becoming a little bit hypotensive possibly related to infection. He is now being treated with vancomycin. We will monitor closely and administer fluids if indicated. Will monitor for signs of sepsis. (8) Leukocytosis Qualifiers: Leukocytosis type: bandemia Qualified Code(s): D72.825 - Bandemia Is this a current diagnosis for this admission?: Yes Plan: Slow downward trend, will expect the leukocytosis to improve with addition of vancomycin. This problem is probably related to another abscess related to his hidradenitis. Other possible sources of infection are also being investigated. (9) Pneumonia Qualifiers: Laterality: bilateral Lung location: unspecified part of lung Is this a current diagnosis for this admission?: Yes Plan: Resolved. (10) Hypoxic brain injury Is this a current diagnosis for this admission?: Yes Plan: Patient is now more awake though he is confused and a little bit agitated. These could be related to hypoxic brain injury. We will continue to monitor him closely for evidence of improvement and also for safety. We will have to discuss with his family, and that appears to be his sister who lives locally, his normal mental status is. (11) Diabetic neuropathy Qualifiers: Diabetes mellitus type: type 1 Diabetes mellitus complication detail: diabetic polyneuropathy Qualified Code(s): E10.42 - Type 1 diabetes mellitus with diabetic polyneuropathy Is this a current diagnosis for this admission?: Yes Plan: I am titrating back up on the patient's Neurontin. He has been off of his home Neurontin until several days ago when I restarted it. Today he is up to 400 mg p.o. 3 times daily and his home dose of 600 mg p.o. 3 times daily. Foot pain has improved. (12) Diabetes mellitus Qualifiers: Diabetes mellitus type: type 1 Diabetes mellitus complication status: with unspecified complications Qualified Code(s): E10.8 - Type 1 diabetes mellitus with unspecified complications Is this a current diagnosis for this admission?: Yes Plan: Stable. Continue current care. (13) Chronic pain Qualifiers: Chronic pain type: chronic pain syndrome Qualified Code(s): G89.4 - Chronic pain syndrome Is this a current diagnosis for this admission?: Yes Plan: Stable pain related to hidradenitis supperativa. Continue his long-acting morphine every 12 hours and a short acting oxycodone. (14) Opioid dependence in controlled environment Is this a current diagnosis for this admission?: Yes Plan: No problems in this regard. Continue to monitor for safe usage. - Time Time Spent with patient: 25-34 minutes Medications reviewed and adjusted accordingly: Yes Anticipated discharge: Acute Rehab - Inpatient Certification Based on my medical assessment, after consideration of the patient's comorbidities, presenting symptoms, or acuity I expect that the services needed warrant INPATIENT care.: Yes I certify that my determination is in accordance with my understanding of Medicare's requirements for reasonable and necessary INPATIENT services [42 CFR 412.3e].: Yes Medical Necessity: Significant Comorbidiites Make Outpatient Treatment Too Risky , Need for IV Antibiotics, Risk of Complication if Not Cared For in Hospital
[2017-09-11] MEDS: NYSTATIN 500000 UNIT/5 ML UDCUP PO SCH (18:22)
[2017-09-11] MEDS: DILTIAZEM HCL 60 MG TABLET PO SCH (18:23)
[2017-09-11] MEDS: VANCOMYCIN HCL 1,000 MG in DEXTROSE 5%-WATER 250 ML IV SCH (22:10)
[2017-09-12] MEDS: GABAPENTIN 400 MG CAPSULE PO SCH ×4 (00:22→21:37)
[2017-09-12] MEDS: FAMOTIDINE 20 MG TABLET PO SCH ×3 (00:22→21:38)
[2017-09-12] MEDS: NYSTATIN 500000 UNIT/5 ML UDCUP PO SCH ×5 (00:22→21:45)
[2017-09-12] MEDS: MORPHINE SULFATE SR 100 MG TABLET PO SCH ×3 (00:23→21:37)
[2017-09-12] MEDS: DULOXETINE HCL 30 MG CAPSULE.DR PO SCH ×3 (00:23→21:39)
[2017-09-12] MEDS: DILTIAZEM HCL 60 MG TABLET PO SCH ×3 (02:43→17:24)
[2017-09-12] MEDS: OXYCODONE HCL IR 5 MG TABLET PO PRN (05:14)
[2017-09-12] MEDS: VANCOMYCIN HCL 1,000 MG in DEXTROSE 5%-WATER 250 ML IV SCH ×2 (10:09→21:39)
[2017-09-12] MEDS: MULTIVITAMINS W-IRON TABLET, CHEWABLE PO SCH (10:10)
[2017-09-12] MEDS: ENOXAPARIN SODIUM INJ 40 MG/0.4 ML DISP.SYRIN SUBCUT SCH (10:12)
[2017-09-12 10:59] LABS: HEMOGLOBIN 10.3 g/dL (13.5-17.0); MEAN CORPUSCULAR HEMOGLOBIN 25.1 pg (27.0-33.4); MEAN CORPUSCULAR HGB CONC 32.1 g/dL (32.0-36.0); MEAN CORPUSCULAR VOLUME 78 fl (80-97); PLATELET COUNT 770 10^3/uL (150-450); RED CELL DISTRIBUTION WIDTH 18.3 % (11.5-14.0)
[2017-09-12 11:08] LABS: ANION GAP 13 (5-19); BLOOD UREA NITROGEN 10 mg/dL (7-20); CALCIUM 10.9 mg/dL (8.4-10.2); CARBON DIOXIDE 32 mmol/L (22-30); CHLORIDE 86 mmol/L (98-107); GLUCOSE 152 mg/dL (75-110); SODIUM 131.2 mmol/L (137-145)
--- NOTE | 2017-09-12 16:11 | PDOC PROGRESS REPORT ---
Subjective Progress Note for:: 09/12/17 Subjective:: Patient admitted with septic shock, denies any new symptoms. He is bed bound though says he was ambulatory till recently. Reason For Visit: DKA, SEPSIS Physical Exam Vital Signs: Temp Pulse Resp BP Pulse Ox 97.7 F 110 H 16 104/74 95 09/12/17 12:28 09/12/17 12:28 09/12/17 12:28 09/12/17 12:28 09/12/17 12:28 Intake & Output 09/11/17 09/12/17 09/13/17 06:59 06:59 06:59 Intake Total 800 850 50 Output Total 910 550 100 Balance -110 300 -50 Weight 53.4 kg General appearance: PRESENT: no acute distress - Clinically ill looking, thin Head exam: PRESENT: atraumatic Mouth exam: PRESENT: dry mucosa Respiratory exam: PRESENT: clear to auscultation daija. ABSENT: rales, rhonchi, wheezes Cardiovascular exam: PRESENT: RRR. ABSENT: diastolic murmur, rubs, systolic murmur GI/Abdominal exam: PRESENT: normal bowel sounds, soft. ABSENT: distended, guarding, mass, organolmegaly, rebound, tenderness Rectal exam: PRESENT: deferred Neurological exam: PRESENT: alert, awake, motor sensory deficit, other - Wasted muscles Skin exam: PRESENT: rash, other - Decubitus ulcers, wound and left groin area status post I&D Heel ulcers Results Laboratory Results: 09/12/17 10:26 09/12/17 10:26 09/12/17 09/12/17 10:26 10:26 WBC 22.0 H RBC 4.10 L Hgb 10.3 L Hct 32.0 L MCV 78 L MCH 25.1 L MCHC 32.1 RDW 18.3 H Plt Count 770 H Sodium 131.2 L Potassium 5.0 Chloride 86 L Carbon Dioxide 32 H Anion Gap 13 BUN 10 Creatinine 0.59 Est GFR ( Amer) > 60 Est GFR (Non-Af Amer) > 60 Glucose 152 H Calcium 10.9 H 09/10/17 22:30 Catheterized Urine Urine Culture - Final NO GROWTH 2 DAYS 08/24/17 08/24/17 08/25/17 18:00 22:00 05:15 Creatine Kinase 140 117 82 CK-MB (CK-2) Troponin I NT-Pro-B Natriuret Pep 09/02/17 09/02/17 09/03/17 17:45 17:45 05:35 Creatine Kinase 50 L CK-MB (CK-2) 0.40 Troponin I 0.027 NT-Pro-B Natriuret Pep 4690 H Impressions: Thoracic Spine CT 08/26/17 08:00 IMPRESSION: No acute findings in the thoracic spine. Abdomen/Pelvis CT 08/27/17 00:00 IMPRESSION: 1. Extensive basilar pulmonary changes suggesting pneumonia. 2. No evidence of intra- abdominal or intrapelvic abscess or drainable collection. Postoperative changes as above without evidence of mechanical bowel obstruction. 3. Marked irregular soft tissue loss in the proximal left posterior and medial thigh, incompletely assessed. No suggestion of regional drainable collection as imaged. Chest X-Ray 09/03/17 06:00 IMPRESSION: 1. Interval removal of left IJ central venous catheter. Otherwise stable appearance of the chest with persistent patchy bibasilar opacity. Assessment & Plan - Time Time Spent with patient: 15-24 minutes Anticipated discharge: SNF - Plan Summary Plan Summary: 1.Acute respiratory failure with hypoxia status post extubation. Patient respiratory status remains stable MRSA pneumonitis- completed Vancomycin 14 days treatment on 09/07, restarted on Vancomycin again on 09/11 2. Septic shock secondary to deep skin infection and pneumonia resolved 3. Hypokalemia Replaced 4. Buttocks and scrotal abscess- Poly organisms, continue wound care. Now off all antibiotics 5. Protein calorie malnutrition continue supplements 6. Tobacco abuse disorder- counselling 7. Atrial fibrillation with rapid ventricular response, transient and appears to have resolved. Cont diltiazem 8. Anemia of chronic disease-hemoglobin stable 9. Malnutrition, protein calorie- encourage feeding 10.Bilateral pneumonia status post mechanical intubation. Cultures MRSA positive. 11. Multiple decubitus ulcers possibly infected and contributing to the septic shock 12,Groin abscess status post I&D on 08/30. 13. Hidradenitis suppurativa of the anus 14. Reactive thrombocytosis his plaelet count is improving
[2017-09-13] MEDS: DILTIAZEM HCL 60 MG TABLET PO SCH ×3 (02:47→18:39)
[2017-09-13] MEDS: GABAPENTIN 400 MG CAPSULE PO SCH (05:09)
[2017-09-13] MEDS ORDERED: NORMAL SALINE 1000 ML 1,000 ML IV ONE (09:35)
--- NOTE | 2017-09-13 09:42 | PDOC PROGRESS REPORT ---
Subjective Progress Note for:: 09/13/17 Subjective:: No new issues overnight. Reason For Visit: DKA, SEPSIS Physical Exam Vital Signs: Temp Pulse Resp BP Pulse Ox 98.5 F 97 20 97/63 L 93 09/12/17 23:38 09/13/17 02:00 09/12/17 23:38 09/12/17 23:38 09/12/17 23:38 Intake & Output 09/12/17 09/13/17 09/14/17 06:59 06:59 06:59 Intake Total 850 2937 Output Total 550 500 Balance 300 2437 Weight 53.4 kg 52.7 kg General appearance: PRESENT: no acute distress, thin, well-developed Head exam: PRESENT: atraumatic, normocephalic Eye exam: PRESENT: conjunctiva pink, EOMI. ABSENT: scleral icterus Ear exam: PRESENT: normal external ear exam Mouth exam: PRESENT: moist, tongue midline Neck exam: ABSENT: carotid bruit, JVD, lymphadenopathy, thyromegaly Respiratory exam: PRESENT: clear to auscultation [place]. ABSENT: rales, rhonchi, wheezes Cardiovascular exam: PRESENT: RRR. ABSENT: diastolic murmur, rubs, systolic murmur Pulses: PRESENT: normal dorsalis pedis pul Vascular exam: PRESENT: normal capillary refill GI/Abdominal exam: PRESENT: other - Colostomy bag in place Rectal exam: PRESENT: deferred Extremities exam: PRESENT: other - + upper and lower ext muscle wasting. ABSENT : calf tenderness, clubbing, pedal edema Musculoskeletal exam: PRESENT: other - + upper and lower ext muscle wasting Neurological exam: PRESENT: alert, awake, oriented to person, other - Pt knows that he is in the hospital, Pt knows the year and President. Psychiatric exam: PRESENT: normal mood. ABSENT: homicidal ideation, suicidal ideation Skin exam: PRESENT: dry, warm, other - colostomy bag in place Results Laboratory Results: 09/12/17 10:26 09/12/17 10:26 09/12/17 09/12/17 10:26 10:26 WBC 22.0 H RBC 4.10 L Hgb 10.3 L Hct 32.0 L MCV 78 L MCH 25.1 L MCHC 32.1 RDW 18.3 H Plt Count 770 H Sodium 131.2 L Potassium 5.0 Chloride 86 L Carbon Dioxide 32 H Anion Gap 13 BUN 10 Creatinine 0.59 Est GFR ( Amer) > 60 Est GFR (Non-Af Amer) > 60 Glucose 152 H Calcium 10.9 H 09/10/17 22:30 Catheterized Urine Urine Culture - Final NO GROWTH 2 DAYS 08/24/17 08/24/17 08/25/17 18:00 22:00 05:15 Creatine Kinase 140 117 82 CK-MB (CK-2) Troponin I NT-Pro-B Natriuret Pep 09/02/17 09/02/17 09/03/17 17:45 17:45 05:35 Creatine Kinase 50 L CK-MB (CK-2) 0.40 Troponin I 0.027 NT-Pro-B Natriuret Pep 4690 H Impressions: Thoracic Spine CT 08/26/17 08:00 IMPRESSION: No acute findings in the thoracic spine. Abdomen/Pelvis CT 08/27/17 00:00 IMPRESSION: 1. Extensive basilar pulmonary changes suggesting pneumonia. 2. No evidence of intra- abdominal or intrapelvic abscess or drainable collection. Postoperative changes as above without evidence of mechanical bowel obstruction. 3. Marked irregular soft tissue loss in the proximal left posterior and medial thigh, incompletely assessed. No suggestion of regional drainable collection as imaged. Chest X-Ray 09/03/17 06:00 IMPRESSION: 1. Interval removal of left IJ central venous catheter. Otherwise stable appearance of the chest with persistent patchy bibasilar opacity. Assessment & Plan - Diagnosis (1) Abscess or cellulitis of perineum Is this a current diagnosis for this admission?: Yes Plan: Will continue Vancomycin. (2) Crohns disease Qualifiers: Gastrointestinal tract location: unspecified location Is this a current diagnosis for this admission?: Yes Plan: No evidence of acute flare. (3) Diabetes mellitus Qualifiers: Diabetes mellitus type: type 1 Diabetes mellitus complication status: with unspecified complications Qualified Code(s): E10.8 - Type 1 diabetes mellitus with unspecified complications Is this a current diagnosis for this admission?: Yes Plan: Continue current treatment plan. (4) Pneumonia Qualifiers: Laterality: bilateral Lung location: unspecified part of lung Is this a current diagnosis for this admission?: Yes Plan: Resolved (5) Leukocytosis Qualifiers: Leukocytosis type: bandemia Qualified Code(s): D72.825 - Bandemia Is this a current diagnosis for this admission?: Yes Plan: Will continue to monitor. (6) Hypotension Qualifiers: Hypotension type: other hypotension type Qualified Code(s): I95.89 - Other hypotension Is this a current diagnosis for this admission?: Yes Plan: Will give NS bolus. Will place on NS at 75cc/hours. (7) Diabetic keto-acidosis Qualifiers: Diabetes mellitus type: type 1 Diabetes mellitus complication detail: with coma Qualified Code(s): E10.11 - Type 1 diabetes mellitus with ketoacidosis with coma Is this a current diagnosis for this admission?: Yes Plan: Resolved. (8) Severe protein-calorie malnutrition Is this a current diagnosis for this admission?: Yes Plan: Will encourage PO intake and continue supplemental drink. (9) Hidradenitis suppurativa of anus Is this a current diagnosis for this admission?: Yes Plan: Will consult surgery for wound care. (10) Hypoxic brain injury Is this a current diagnosis for this admission?: Yes Plan: Per documentation pt was hypotensive in the ICU: Will place on IVFs and give Bolus. Will discontinue Neurontin. (11) Diabetic neuropathy Qualifiers: Diabetes mellitus type: type 1 Diabetes mellitus complication detail: diabetic polyneuropathy Qualified Code(s): E10.42 - Type 1 diabetes mellitus with diabetic polyneuropathy Is this a current diagnosis for this admission?: Yes Plan: Will discontinue Neurontin to see if mental status improve. (12) Chronic pain Qualifiers: Chronic pain type: chronic pain syndrome Qualified Code(s): G89.4 - Chronic pain syndrome Is this a current diagnosis for this admission?: Yes Plan: Will continue pain medications. (13) Opioid dependence in controlled environment Is this a current diagnosis for this admission?: Yes Plan: Will continue pain medication.
[2017-09-13] MEDS: VANCOMYCIN HCL 1,000 MG in DEXTROSE 5%-WATER 250 ML IV SCH (10:00)
[2017-09-13] MEDS: NYSTATIN 500000 UNIT/5 ML UDCUP PO SCH ×4 (10:08→21:47)
[2017-09-13] MEDS: MORPHINE SULFATE SR 100 MG TABLET PO SCH ×2 (10:09→21:46)
[2017-09-13] MEDS: FAMOTIDINE 20 MG TABLET PO SCH ×2 (10:09→21:47)
[2017-09-13] MEDS: DULOXETINE HCL 30 MG CAPSULE.DR PO SCH ×2 (10:10→21:47)
[2017-09-13] MEDS: ENOXAPARIN SODIUM INJ 40 MG/0.4 ML DISP.SYRIN SUBCUT SCH (10:10)
[2017-09-13] MEDS: MULTIVITAMINS W-IRON TABLET, CHEWABLE PO SCH (10:13)
[2017-09-13 11:42] LABS: ABSOLUTE BASOPHILS # (AUTO) 0.3 10^3/uL (0.0-0.2); ABSOLUTE EOSINOPHILS # (AUTO) 0.8 10^3/uL (0.0-0.6); ABSOLUTE LYMPHOCYTES (AUTO) 3.5 10^3/uL (0.5-4.7); ABSOLUTE MONOCYTES (AUTO) 1.9 10^3/uL (0.1-1.4); ABSOLUTE NEUT (AUTO) 7.6 10^3/uL (1.7-8.2); BASOPHILS % (AUTO) 1.9 % (0-2); EOSINOPHILS % (AUTO) 5.8 % (0-6); HEMATOCRIT 35.8 % (37.9-51.0); HEMOGLOBIN 11.8 g/dL (13.5-17.0); LYMPHOCYTES % (AUTO) 24.8 % (13-45); MEAN CORPUSCULAR HEMOGLOBIN 25.8 pg (27.0-33.4); MEAN CORPUSCULAR HGB CONC 32.9 g/dL (32.0-36.0); MEAN CORPUSCULAR VOLUME 78 fl (80-97); MONOCYTES % (AUTO) 13.4 % (3-13); PLATELET COUNT 707 10^3/uL (150-450); RED BLOOD COUNT 4.57 10^6/uL (4.35-5.55); RED CELL DISTRIBUTION WIDTH 18.4 % (11.5-14.0); SEGMENTED NEUTROPHILS % (AUTO) 54.1 % (42-78); TOTAL CELLS COUNTED % (AUTO) 100 %; WHITE BLOOD COUNT 14.1 10^3/uL (4.0-10.5)
[2017-09-13 11:49] LABS: VANCOMYCIN,TROUGH 19.7 ug/mL (5.0-20.0)
--- NOTE | 2017-09-13 15:48 | OPERATIVE REPORT E ---
Operative Report NAME: TIA VILLANUEVA : 1965 AGE: 51Y DATE OF SURGERY: 09/13/2017 ROOM: 308 PREOPERATIVE DIAGNOSES: Patient has poor peripheral veins and needed IV access for antibiotics. Patient has positive MRSA infection. POSTOPERATIVE DIAGNOSES: Patient has poor peripheral veins and needed IV access for antibiotics. Patient has positive MRSA infection. PROCEDURE: Placement of left subclavian vein triple lumen catheter. SURGEON: RAIZA KIMBLE M.D. ANESTHESIA: Local. DESCRIPTION OF PROCEDURE: The patient was placed in Trendelenburg position, and the left infraclavicular and left leg were then prepped and draped in usual sterile fashion. Local anesthesia infiltrated along the left infraclavicular area. The left subclavian vein was then punctured and a guidewire passed through the needle towards the area of the superior vena cava. The needle was removed and the puncture site dilated. Next, a triple lumen catheter inserted through the guidewire to a distance of about 17 cm. The guidewire was removed and all the ports irrigated nicely with saline and aspirated blood also easily. The catheter was then anchored to the skin with 3-0 silk and a Biopatch placed at the puncture site. A sterile transparent dressing was then placed over the Biopatch and catheter. Patient tolerated procedure. A chest x-ray will be done for placement. The patient's wounds were inspected afterwards. There was an area that apparently was debrided on the left posterior upper thigh with a [place] drain in between. [place] drain was then removed since both wounds appeared to be with fair granulation tissue and no evidence of abscess formation. Patient also has stage II decubitus ulcers on the sacral area about 4 cm in diameter and an elongated one just behind the left scapula medial side about 1 cm wide by about 8 cm long. I told the nurse to continue wet-to-dry dressing for the thigh wounds and continue with thick gel dressings for the sacral and scapular ulcers. DICTATING PHYSICIAN: RAIZA KIMBLE M.D. [id number] PHY#: [id number] ID: [id number] JOB#: [id number] ACCT: [id number] cc:RAIZA KIMBLE M.D. > [facility]
[2017-09-13] MEDS: RINGERS SOLUTION,LACTATED 1,000 ML IV PRN (15:59)
--- NOTE | 2017-09-13 16:13 | RADIOLOGY REPORT (SQ) ---
EXAM DESCRIPTION: CHEST SINGLE VIEW COMPLETED DATE/TIME: 09/13/2017 3:45 pm REASON FOR STUDY: central line placement COMPARISON: 09/03/2017 EXAM PARAMETERS: NUMBER OF VIEWS: One view. TECHNIQUE: Single frontal radiographic view of the chest acquired. RADIATION DOSE: NA LIMITATIONS: None. FINDINGS: LUNGS AND PLEURA: No opacities, masses or pneumothorax. No pleural effusion. MEDIASTINUM AND HILAR STRUCTURES: No masses. Contour normal. HEART AND VASCULAR STRUCTURES: Heart normal in size. Normal vasculature. BONES: No acute findings. HARDWARE: Right IJ central line has been removed. A left subclavian central line is identified with its tip at the level of the superior vena cava. OTHER: No other significant finding. IMPRESSION: NO ACUTE RADIOGRAPHIC FINDING IN THE CHEST. TECHNICAL DOCUMENTATION: JOB ID: [id number] [employer]- All Rights Reserved Reading location - IP/workstation name: [email or web address]
[2017-09-13] MEDS: VANCOMYCIN HCL 750 MG in DEXTROSE 5%-WATER 250 ML IV SCH (21:47)
[2017-09-14] MEDS: DILTIAZEM HCL 60 MG TABLET PO SCH ×3 (03:20→18:17)
[2017-09-14 05:49] LABS: ABSOLUTE BASOPHILS # (AUTO) 0.2 10^3/uL (0.0-0.2); ABSOLUTE EOSINOPHILS # (AUTO) 1.3 10^3/uL (0.0-0.6); ABSOLUTE LYMPHOCYTES (AUTO) 3.7 10^3/uL (0.5-4.7); ABSOLUTE MONOCYTES (AUTO) 3.1 10^3/uL (0.1-1.4); ABSOLUTE NEUT (AUTO) 10.7 10^3/uL (1.7-8.2); BASOPHILS % (AUTO) 1.3 % (0-2); EOSINOPHILS % (AUTO) 6.6 % (0-6); HEMATOCRIT 27.4 % (37.9-51.0); LYMPHOCYTES % (AUTO) 19.6 % (13-45); MEAN CORPUSCULAR HEMOGLOBIN 25.1 pg (27.0-33.4); MEAN CORPUSCULAR HGB CONC 31.8 g/dL (32.0-36.0); MEAN CORPUSCULAR VOLUME 79 fl (80-97); MONOCYTES % (AUTO) 16.3 % (3-13); PLATELET COUNT 676 10^3/uL (150-450); RED BLOOD COUNT 3.47 10^6/uL (4.35-5.55); RED CELL DISTRIBUTION WIDTH 18.7 % (11.5-14.0); SEGMENTED NEUTROPHILS % (AUTO) 56.2 % (42-78); TOTAL CELLS COUNTED % (AUTO) 100 %; WHITE BLOOD COUNT 19.1 10^3/uL (4.0-10.5)
[2017-09-14 05:55] LABS: HEMOGLOBIN 8.7 g/dL (13.5-17.0)
[2017-09-14 06:00] LABS: ALANINE AMINOTRANSFERASE 20 U/L (21-72); ALBUMIN 2.5 g/dL (3.5-5.0); ALKALINE PHOSPHATASE 151 U/L (38-126); ANION GAP 9 (5-19); ASPARTATE AMINO TRANSFERASE 13 U/L (17-59); BILIRUBIN,DIRECT 0.2 mg/dL (0.0-0.4); BILIRUBIN,TOTAL 0.2 mg/dL (0.2-1.3); BLOOD UREA NITROGEN 7 mg/dL (7-20); CALCIUM 10.5 mg/dL (8.4-10.2); CARBON DIOXIDE 31 mmol/L (22-30); CHLORIDE 94 mmol/L (98-107); GLUCOSE 125 mg/dL (75-110); POTASSIUM 3.6 mmol/L (3.6-5.0); SODIUM 133.6 mmol/L (137-145); TOTAL PROTEIN 5.9 g/dL (6.3-8.2)
--- NOTE | 2017-09-14 09:07 | PDOC PROGRESS REPORT ---
Subjective Progress Note for:: 09/14/17 Subjective:: No new issues. Reason For Visit: DKA, SEPSIS Physical Exam Vital Signs: Temp Pulse Resp BP Pulse Ox 97.4 F 96 16 102/66 94 09/14/17 08:09 09/14/17 08:09 09/14/17 08:09 09/14/17 08:09 09/14/17 08:09 Intake & Output 09/13/17 09/14/17 09/15/17 06:59 06:59 06:59 Intake Total 2937 2400 Output Total 500 1475 Balance 2437 925 Weight 52.7 kg 54.9 kg General appearance: PRESENT: no acute distress, thin, well-developed Head exam: PRESENT: atraumatic, normocephalic Eye exam: PRESENT: conjunctiva pink, EOMI. ABSENT: scleral icterus Ear exam: PRESENT: normal external ear exam Mouth exam: PRESENT: moist, tongue midline Neck exam: ABSENT: carotid bruit, JVD, lymphadenopathy, thyromegaly Respiratory exam: PRESENT: clear to auscultation [place]. ABSENT: rales, rhonchi, wheezes Cardiovascular exam: PRESENT: RRR. ABSENT: diastolic murmur, rubs, systolic murmur Pulses: PRESENT: normal dorsalis pedis pul Vascular exam: PRESENT: normal capillary refill GI/Abdominal exam: PRESENT: normal bowel sounds, soft. ABSENT: distended, guarding, mass, organolmegaly, rebound, tenderness Rectal exam: PRESENT: deferred Extremities exam: PRESENT: other - + muscle wasting bilateral lower and upper ext. Musculoskeletal exam: PRESENT: other - + muscle wasting bilateral upper and lower ext. Neurological exam: PRESENT: alert, awake, oriented to person, oriented to place , oriented to time Psychiatric exam: PRESENT: normal mood. ABSENT: homicidal ideation, suicidal ideation Skin exam: PRESENT: dry, intact, warm. ABSENT: cyanosis, rash Results Laboratory Results: 09/14/17 04:54 09/14/17 04:54 09/13/17 09/13/17 09/14/17 11:05 11:05 04:54 WBC 14.1 H 19.1 H RBC 4.57 3.47 L Hgb 11.8 L 8.7 L D Hct 35.8 L 27.4 L MCV 78 L 79 L MCH 25.8 L 25.1 L MCHC 32.9 31.8 L RDW 18.4 H 18.7 H Plt Count 707 H 676 H Seg Neutrophils % 54.1 56.2 Lymphocytes % 24.8 19.6 Monocytes % 13.4 H 16.3 H Eosinophils % 5.8 6.6 H Basophils % 1.9 1.3 Absolute Neutrophils 7.6 10.7 H Absolute Lymphocytes 3.5 3.7 Absolute Monocytes 1.9 H 3.1 H Absolute Eosinophils 0.8 H 1.3 H Absolute Basophils 0.3 H 0.2 Sodium Potassium Chloride Carbon Dioxide Anion Gap BUN Creatinine 0.79 Est GFR ( Amer) > 60 Est GFR (Non-Af Amer) > 60 Glucose Calcium Total Bilirubin AST ALT Alkaline Phosphatase Total Protein Albumin 09/14/17 04:54 WBC RBC Hgb Hct MCV MCH MCHC RDW Plt Count Seg Neutrophils % Lymphocytes % Monocytes % Eosinophils % Basophils % Absolute Neutrophils Absolute Lymphocytes Absolute Monocytes Absolute Eosinophils Absolute Basophils Sodium 133.6 L Potassium 3.6 Chloride 94 L Carbon Dioxide 31 H Anion Gap 9 BUN 7 Creatinine 0.75 Est GFR ( Amer) > 60 Est GFR (Non-Af Amer) > 60 Glucose 125 H Calcium 10.5 H Total Bilirubin 0.2 AST 13 L ALT 20 L Alkaline Phosphatase 151 H Total Protein 5.9 L Albumin 2.5 L 09/10/17 17:26 Blood Blood Culture - Final Enterococcus Faecalis(Group D) 08/24/17 08/24/17 08/25/17 18:00 22:00 05:15 Creatine Kinase 140 117 82 CK-MB (CK-2) Troponin I NT-Pro-B Natriuret Pep 09/02/17 09/02/17 09/03/17 17:45 17:45 05:35 Creatine Kinase 50 L CK-MB (CK-2) 0.40 Troponin I 0.027 NT-Pro-B Natriuret Pep 4690 H Impressions: Thoracic Spine CT 08/26/17 08:00 IMPRESSION: No acute findings in the thoracic spine. Abdomen/Pelvis CT 08/27/17 00:00 IMPRESSION: 1. Extensive basilar pulmonary changes suggesting pneumonia. 2. No evidence of intra- abdominal or intrapelvic abscess or drainable collection. Postoperative changes as above without evidence of mechanical bowel obstruction. 3. Marked irregular soft tissue loss in the proximal left posterior and medial thigh, incompletely assessed. No suggestion of regional drainable collection as imaged. Chest X-Ray 09/13/17 00:00 IMPRESSION: NO ACUTE RADIOGRAPHIC FINDING IN THE CHEST. Assessment & Plan - Diagnosis (1) Abscess or cellulitis of perineum Is this a current diagnosis for this admission?: Yes Plan: Will continue Vancomycin. (2) Crohns disease Qualifiers: Gastrointestinal tract location: unspecified location Is this a current diagnosis for this admission?: Yes Plan: No evidence of acute flare. (3) Diabetes mellitus Qualifiers: Diabetes mellitus type: type 1 Diabetes mellitus complication status: with unspecified complications Qualified Code(s): E10.8 - Type 1 diabetes mellitus with unspecified complications Is this a current diagnosis for this admission?: Yes Plan: Continue current treatment plan. (4) Pneumonia Qualifiers: Laterality: bilateral Lung location: unspecified part of lung Is this a current diagnosis for this admission?: Yes (5) Leukocytosis Qualifiers: Leukocytosis type: bandemia Qualified Code(s): D72.825 - Bandemia Is this a current diagnosis for this admission?: Yes Plan: Will continue to monitor. (6) Hypotension Qualifiers: Hypotension type: other hypotension type Qualified Code(s): I95.89 - Other hypotension Is this a current diagnosis for this admission?: Yes Plan: Will continue on NS at 75cc/hours. (7) Diabetic keto-acidosis Qualifiers: Diabetes mellitus type: type 1 Diabetes mellitus complication detail: with coma Qualified Code(s): E10.11 - Type 1 diabetes mellitus with ketoacidosis with coma Is this a current diagnosis for this admission?: Yes Plan: Resolved. (8) Severe protein-calorie malnutrition Is this a current diagnosis for this admission?: Yes Plan: Will encourage PO intake and continue supplemental drink. (9) Hidradenitis suppurativa of anus Is this a current diagnosis for this admission?: Yes Plan: Surgery to manage. (10) Hypoxic brain injury Is this a current diagnosis for this admission?: Yes Plan: Per documentation pt was hypotensive in the ICU: Will continue to monitor pt. (11) Diabetic neuropathy Qualifiers: Diabetes mellitus type: type 1 Diabetes mellitus complication detail: diabetic polyneuropathy Qualified Code(s): E10.42 - Type 1 diabetes mellitus with diabetic polyneuropathy Is this a current diagnosis for this admission?: Yes Plan: Will discontinue Neurontin to see if mental status improve. (12) Chronic pain Qualifiers: Chronic pain type: chronic pain syndrome Qualified Code(s): G89.4 - Chronic pain syndrome Is this a current diagnosis for this admission?: Yes Plan: Will continue pain medications. (13) Opioid dependence in controlled environment Is this a current diagnosis for this admission?: Yes Plan: Will continue pain medication. - Time Time Spent with patient: 15-24 minutes
[2017-09-14] MEDS: MORPHINE SULFATE SR 100 MG TABLET PO SCH ×2 (10:16→21:41)
[2017-09-14] MEDS: VANCOMYCIN HCL 750 MG in DEXTROSE 5%-WATER 250 ML IV SCH ×2 (10:17→21:42)
[2017-09-14] MEDS: FAMOTIDINE 20 MG TABLET PO SCH ×2 (10:17→21:41)
[2017-09-14] MEDS: MULTIVITAMINS W-IRON TABLET, CHEWABLE PO SCH (10:17)
[2017-09-14] MEDS: NYSTATIN 500000 UNIT/5 ML UDCUP PO SCH ×4 (10:17→21:42)
[2017-09-14] MEDS: DULOXETINE HCL 30 MG CAPSULE.DR PO SCH ×2 (10:17→21:42)
[2017-09-14] MEDS: ENOXAPARIN SODIUM INJ 40 MG/0.4 ML DISP.SYRIN SUBCUT SCH (10:18)
[2017-09-14] MEDS: INSULIN LISPRO 100 UNIT/ML 3 ML VIAL SUBCUT PRN (23:13)
[2017-09-15] MEDS: DILTIAZEM HCL 60 MG TABLET PO SCH ×3 (02:09→17:00)
[2017-09-15 04:49] LABS: HEMATOCRIT 27.9 % (37.9-51.0); HEMOGLOBIN 8.7 g/dL (13.5-17.0); MEAN CORPUSCULAR HEMOGLOBIN 24.5 pg (27.0-33.4); MEAN CORPUSCULAR VOLUME 79 fl (80-97); PLATELET COUNT 705 10^3/uL (150-450); RED BLOOD COUNT 3.54 10^6/uL (4.35-5.55); RED CELL DISTRIBUTION WIDTH 18.5 % (11.5-14.0)
[2017-09-15 05:05] LABS: ALANINE AMINOTRANSFERASE 17 U/L (21-72); ALBUMIN 2.6 g/dL (3.5-5.0); ALKALINE PHOSPHATASE 150 U/L (38-126); ANION GAP 10 (5-19); ASPARTATE AMINO TRANSFERASE 13 U/L (17-59); BILIRUBIN,DIRECT 0.3 mg/dL (0.0-0.4); BILIRUBIN,TOTAL 0.3 mg/dL (0.2-1.3); BLOOD UREA NITROGEN 6 mg/dL (7-20); CALCIUM 11.2 mg/dL (8.4-10.2); CARBON DIOXIDE 32 mmol/L (22-30); CHLORIDE 98 mmol/L (98-107); GLUCOSE 120 mg/dL (75-110); POTASSIUM 3.6 mmol/L (3.6-5.0); SODIUM 139.7 mmol/L (137-145); TOTAL PROTEIN 5.9 g/dL (6.3-8.2)
[2017-09-15 05:19] LABS: ABSOLUTE LYMPHOCYTES# (MANUAL) 8.4 10^3/uL (0.5-4.7); ABSOLUTE MONOCYTES # (MANUAL) 3.2 10^3/uL (0.1-1.4); ABSOLUTE NEUTROPHILS# (MANUAL) 14.6 10^3/uL (1.7-8.2); BASOPHILS % (MANUAL) 0 % (0-2); EOSINOPHILS % (MANUAL) 3 % (0-6); LYMPHOCYTES % (MANUAL) 31 % (13-45); MONOCYTES % (MANUAL) 12 % (3-13); SEGMENTED NEUTROPHILS % (MAN) 54 % (42-78); TOTAL CELLS COUNTED 100
[2017-09-15 05:27] LABS: ANISOCYTOSIS 1+; TOXIC GRANULATION 1+
[2017-09-15 05:28] LABS: PLATELET CLUMPS PRESENT; PLATELET COMMENT INCREASED; PLATELET LARGE PRESENT; POIKILOCYTOSIS SLIGHT; SCHISTOCYTES 1+; TEAR DROP CELLS SLIGHT
[2017-09-15] MEDS ORDERED: PIPERACILLIN/TAZOBACTAM 3.375 GM VIAL IV PRN (06:53)
[2017-09-15] MEDS ORDERED: PIPERACILLIN SODIUM/TAZOBACTAM 3.375 GM in NORMAL SALINE 100 ML IV ONE (07:00)
[2017-09-15] MEDS ORDERED: ACETAMINOPHEN 325 MG TABLET PO PRN (08:00)
[2017-09-15] MEDS: PIPERACILLIN SODIUM/TAZOBACTAM 3.375 GM in NORMAL SALINE 100 ML IV SCH ×3 (09:00→20:44)
[2017-09-15] MEDS: FAMOTIDINE 20 MG TABLET PO SCH ×2 (09:06→22:24)
[2017-09-15] MEDS: DULOXETINE HCL 30 MG CAPSULE.DR PO SCH ×2 (09:06→22:24)
[2017-09-15] MEDS: MORPHINE SULFATE SR 100 MG TABLET PO SCH ×2 (09:07→22:24)
[2017-09-15] MEDS: ENOXAPARIN SODIUM INJ 40 MG/0.4 ML DISP.SYRIN SUBCUT SCH (09:08)
[2017-09-15] MEDS: MULTIVITAMINS W-IRON TABLET, CHEWABLE PO SCH (09:08)
[2017-09-15] MEDS: NYSTATIN 500000 UNIT/5 ML UDCUP PO SCH ×4 (09:08→22:41)
[2017-09-15] MEDS ORDERED: NORMAL SALINE 1000 ML 1,000 ML IV ONE (09:10)
--- NOTE | 2017-09-15 09:11 | PDOC PROGRESS REPORT ---
Subjective Progress Note for:: 09/15/17 Subjective:: No new issues. Reason For Visit: DKA, SEPSIS Physical Exam Vital Signs: Temp Pulse Resp BP Pulse Ox 97.6 F 99 14 102/62 93 09/15/17 07:49 09/15/17 07:49 09/15/17 07:49 09/15/17 07:49 09/15/17 07:49 Intake & Output 09/14/17 09/15/17 09/16/17 06:59 06:59 06:59 Intake Total 2400 2425 Output Total 1475 8125 Balance 925 -250 Weight 54.9 kg 55.9 kg General appearance: PRESENT: no acute distress, thin, well-developed Head exam: PRESENT: atraumatic, normocephalic Eye exam: PRESENT: conjunctiva pink, EOMI. ABSENT: scleral icterus Ear exam: PRESENT: normal external ear exam Mouth exam: PRESENT: moist, tongue midline Neck exam: ABSENT: carotid bruit, JVD, lymphadenopathy, thyromegaly Respiratory exam: PRESENT: clear to auscultation [place]. ABSENT: rales, rhonchi, wheezes Cardiovascular exam: PRESENT: RRR. ABSENT: diastolic murmur, rubs, systolic murmur Pulses: PRESENT: normal dorsalis pedis pul Vascular exam: PRESENT: normal capillary refill GI/Abdominal exam: PRESENT: normal bowel sounds, soft. ABSENT: distended, guarding, mass, organolmegaly, rebound, tenderness Rectal exam: PRESENT: deferred Extremities exam: PRESENT: full ROM. ABSENT: calf tenderness, clubbing, pedal edema Neurological exam: PRESENT: alert, awake, oriented to person Psychiatric exam: PRESENT: normal mood. ABSENT: homicidal ideation, suicidal ideation Skin exam: PRESENT: dry, intact, warm. ABSENT: cyanosis, rash Results Laboratory Results: 09/15/17 04:30 09/15/17 04:30 09/15/17 09/15/17 04:30 04:30 WBC 27.0 H RBC 3.54 L Hgb 8.7 L Hct 27.9 L MCV 79 L MCH 24.5 L MCHC 31.0 L RDW 18.5 H Plt Count 705 H Seg Neutrophils % Not Reportable Lymphocytes % Not Reportable Monocytes % Not Reportable Eosinophils % Not Reportable Basophils % Not Reportable Absolute Neutrophils Not Reportable Absolute Lymphocytes Not Reportable Absolute Monocytes Not Reportable Absolute Eosinophils Not Reportable Absolute Basophils Not Reportable Sodium 139.7 Potassium 3.6 Chloride 98 Carbon Dioxide 32 H Anion Gap 10 BUN 6 L Creatinine 0.81 Est GFR ( Amer) > 60 Est GFR (Non-Af Amer) > 60 Glucose 120 H Calcium 11.2 H Magnesium 1.5 L Total Bilirubin 0.3 AST 13 L ALT 17 L Alkaline Phosphatase 150 H Total Protein 5.9 L Albumin 2.6 L 08/24/17 08/24/17 08/25/17 18:00 22:00 05:15 Creatine Kinase 140 117 82 CK-MB (CK-2) Troponin I NT-Pro-B Natriuret Pep 09/02/17 09/02/17 09/03/17 17:45 17:45 05:35 Creatine Kinase 50 L CK-MB (CK-2) 0.40 Troponin I 0.027 NT-Pro-B Natriuret Pep 4690 H Impressions: Thoracic Spine CT 08/26/17 08:00 IMPRESSION: No acute findings in the thoracic spine. Abdomen/Pelvis CT 08/27/17 00:00 IMPRESSION: 1. Extensive basilar pulmonary changes suggesting pneumonia. 2. No evidence of intra- abdominal or intrapelvic abscess or drainable collection. Postoperative changes as above without evidence of mechanical bowel obstruction. 3. Marked irregular soft tissue loss in the proximal left posterior and medial thigh, incompletely assessed. No suggestion of regional drainable collection as imaged. Chest X-Ray 09/13/17 00:00 IMPRESSION: NO ACUTE RADIOGRAPHIC FINDING IN THE CHEST. Assessment & Plan - Diagnosis (1) Abscess or cellulitis of perineum Is this a current diagnosis for this admission?: Yes Plan: We will repeat blood cultures and urine culture. Patient's white count continues to remain elevated therefore concerned that patient's wound requires additional antibiotics. Will place patient on Zosyn and continue vancomycin. (2) Crohns disease Qualifiers: Gastrointestinal tract location: unspecified location Is this a current diagnosis for this admission?: Yes Plan: No evidence of acute flare. (3) Diabetes mellitus Qualifiers: Diabetes mellitus type: type 1 Diabetes mellitus complication status: with unspecified complications Qualified Code(s): E10.8 - Type 1 diabetes mellitus with unspecified complications Is this a current diagnosis for this admission?: Yes Plan: Continue current treatment plan. (4) Pneumonia Qualifiers: Laterality: bilateral Lung location: unspecified part of lung Is this a current diagnosis for this admission?: Yes Plan: Resolved (5) Leukocytosis Qualifiers: Leukocytosis type: bandemia Qualified Code(s): D72.825 - Bandemia Is this a current diagnosis for this admission?: Yes Plan: Secondary to enterococcus bacteremia and wound infection: We will repeat blood cultures and urine culture. Will add Zosyn. (6) Hypotension Qualifiers: Hypotension type: other hypotension type Qualified Code(s): I95.89 - Other hypotension Is this a current diagnosis for this admission?: Yes Plan: Will continue on NS at 75cc/hours. (7) Diabetic keto-acidosis Qualifiers: Diabetes mellitus type: type 1 Diabetes mellitus complication detail: with coma Qualified Code(s): E10.11 - Type 1 diabetes mellitus with ketoacidosis with coma Is this a current diagnosis for this admission?: Yes Plan: Resolved. (8) Severe protein-calorie malnutrition Is this a current diagnosis for this admission?: Yes Plan: Will encourage PO intake and continue supplemental drink. (9) Hidradenitis suppurativa of anus Is this a current diagnosis for this admission?: Yes Plan: Surgery to manage. (10) Hypoxic brain injury Is this a current diagnosis for this admission?: Yes Plan: Per documentation pt was hypotensive in the ICU: Will continue to monitor pt. (11) Diabetic neuropathy Qualifiers: Diabetes mellitus type: type 1 Diabetes mellitus complication detail: diabetic polyneuropathy Qualified Code(s): E10.42 - Type 1 diabetes mellitus with diabetic polyneuropathy Is this a current diagnosis for this admission?: Yes Plan: Will discontinue Neurontin to see if mental status improve. (12) Chronic pain Qualifiers: Chronic pain type: chronic pain syndrome Qualified Code(s): G89.4 - Chronic pain syndrome Is this a current diagnosis for this admission?: Yes Plan: Will continue pain medications. (13) Opioid dependence in controlled environment Is this a current diagnosis for this admission?: Yes Plan: Will continue pain medication. (14) Hypercalcemia due to immobilization Is this a current diagnosis for this admission?: Yes Plan: We will continue with IV fluids. Will monitor tomorrow. Give 1 L bolus of normal saline. - Time Time Spent with patient: 25-34 minutes
[2017-09-15] MEDS: VANCOMYCIN HCL 750 MG in DEXTROSE 5%-WATER 250 ML IV SCH ×2 (10:12→22:20)
[2017-09-15 10:55] LABS: APPEARANCE,URINE CLEAR; BILIRUBIN,URINE NEGATIVE (NEGATIVE); COLOR,URINE YELLOW; GLUCOSE, URINE NEGATIVE (NEGATIVE); KETONES,URINE NEGATIVE (NEGATIVE); LEUKOCYTE ESTERASE,URINE MODERATE (NEGATIVE); NITRITE,URINE NEGATIVE (NEGATIVE); PROTEIN,URINE NEGATIVE (NEGATIVE); URINE SPECIFIC GRAVITY 1.004; UROBILINOGEN,URINE NEGATIVE mg/dL (<2.0)
[2017-09-15] MEDS ORDERED: PIPERACILLIN SODIUM/TAZOBACTAM 3.375 GM in NORMAL SALINE 100 ML IV SCH (12:00)
[2017-09-15] MEDS: OXYCODONE HCL IR 5 MG TABLET PO PRN (16:20)
[2017-09-15] MEDS: RINGERS SOLUTION,LACTATED 1,000 ML IV PRN (17:03)
[2017-09-16] MEDS: PIPERACILLIN SODIUM/TAZOBACTAM 3.375 GM in NORMAL SALINE 100 ML IV SCH ×4 (02:54→20:03)
[2017-09-16] MEDS: DILTIAZEM HCL 60 MG TABLET PO SCH ×3 (02:54→17:33)
[2017-09-16 05:06] LABS: HEMATOCRIT 27.1 % (37.9-51.0); HEMOGLOBIN 8.5 g/dL (13.5-17.0); MEAN CORPUSCULAR HEMOGLOBIN 24.7 pg (27.0-33.4); MEAN CORPUSCULAR HGB CONC 31.5 g/dL (32.0-36.0); MEAN CORPUSCULAR VOLUME 78 fl (80-97); PLATELET COUNT 719 10^3/uL (150-450); RED BLOOD COUNT 3.46 10^6/uL (4.35-5.55); RED CELL DISTRIBUTION WIDTH 18.7 % (11.5-14.0); WHITE BLOOD COUNT 25.1 10^3/uL (4.0-10.5)
[2017-09-16 05:14] LABS: ALANINE AMINOTRANSFERASE 18 U/L (21-72); ALBUMIN 2.4 g/dL (3.5-5.0); ALKALINE PHOSPHATASE 130 U/L (38-126); ANION GAP 12 (5-19); ASPARTATE AMINO TRANSFERASE 13 U/L (17-59); BILIRUBIN,DIRECT 0.3 mg/dL (0.0-0.4); BILIRUBIN,TOTAL 0.4 mg/dL (0.2-1.3); BLOOD UREA NITROGEN 5 mg/dL (7-20); CALCIUM 10.5 mg/dL (8.4-10.2); CARBON DIOXIDE 32 mmol/L (22-30); CHLORIDE 101 mmol/L (98-107); GLUCOSE 152 mg/dL (75-110); PHOSPHORUS 5.4 mg/dL (2.5-4.5); POTASSIUM 3.3 mmol/L (3.6-5.0); SODIUM 144.9 mmol/L (137-145); TOTAL PROTEIN 5.8 g/dL (6.3-8.2)
[2017-09-16 05:31] LABS: APPEARANCE,URINE CLEAR; BILIRUBIN,URINE NEGATIVE (NEGATIVE); COLOR,URINE STRAW; GLUCOSE, URINE NEGATIVE (NEGATIVE); KETONES,URINE NEGATIVE (NEGATIVE); LEUKOCYTE ESTERASE,URINE SMALL (NEGATIVE); NITRITE,URINE NEGATIVE (NEGATIVE); PROTEIN,URINE NEGATIVE (NEGATIVE); URINE SPECIFIC GRAVITY 1.005; UROBILINOGEN,URINE NEGATIVE mg/dL (<2.0)
[2017-09-16 05:44] LABS: ABSOLUTE LYMPHOCYTES# (MANUAL) 5.5 10^3/uL (0.5-4.7); ABSOLUTE MONOCYTES # (MANUAL) 1.8 10^3/uL (0.1-1.4); ABSOLUTE NEUTROPHILS# (MANUAL) 16.3 10^3/uL (1.7-8.2); BASOPHILS % (MANUAL) 0 % (0-2); EOSINOPHILS % (MANUAL) 6 % (0-6); LYMPHOCYTES % (MANUAL) 22 % (13-45); MONOCYTES % (MANUAL) 7 % (3-13); SEGMENTED NEUTROPHILS % (MAN) 65 % (42-78); TOTAL CELLS COUNTED 100
[2017-09-16 05:45] LABS: PLATELET COMMENT INCREASED; TARGET CELLS 1+; TOXIC VACUOLATION PRESENT
[2017-09-16 05:46] LABS: ANISOCYTOSIS 2+; POIKILOCYTOSIS 1+
[2017-09-16] MEDS: VANCOMYCIN HCL 750 MG in DEXTROSE 5%-WATER 250 ML IV SCH ×2 (09:22→23:30)
[2017-09-16] MEDS: DULOXETINE HCL 30 MG CAPSULE.DR PO SCH ×2 (09:24→23:27)
[2017-09-16] MEDS: ENOXAPARIN SODIUM INJ 40 MG/0.4 ML DISP.SYRIN SUBCUT SCH (09:25)
[2017-09-16] MEDS: FAMOTIDINE 20 MG TABLET PO SCH ×2 (09:26→23:26)
[2017-09-16] MEDS: MORPHINE SULFATE SR 100 MG TABLET PO SCH ×2 (09:26→23:27)
[2017-09-16] MEDS: MULTIVITAMINS W-IRON TABLET, CHEWABLE PO SCH (09:28)
[2017-09-16] MEDS: NYSTATIN 500000 UNIT/5 ML UDCUP PO SCH ×4 (09:29→23:40)
--- NOTE | 2017-09-16 10:10 | PDOC PROGRESS REPORT ---
Subjective Progress Note for:: 09/16/17 Subjective:: Patient was more conversant this morning however was not making sense. Nursing states the patient has been very talkative. Reason For Visit: DKA, SEPSIS Physical Exam Vital Signs: Temp Pulse Resp BP Pulse Ox 97.6 F 100 16 123/69 95 09/16/17 08:05 09/16/17 08:05 09/16/17 08:05 09/16/17 08:05 09/16/17 08:05 Intake & Output 09/15/17 09/16/17 09/17/17 06:59 06:59 06:59 Intake Total 2425 2720 Output Total 2675 3075 Balance -250 -355 Weight 55.9 kg 56 kg General appearance: PRESENT: no acute distress, thin, well-developed Head exam: PRESENT: atraumatic, normocephalic Eye exam: PRESENT: conjunctiva pink, EOMI. ABSENT: scleral icterus Ear exam: PRESENT: normal external ear exam Mouth exam: PRESENT: moist, tongue midline Neck exam: ABSENT: carotid bruit, JVD, lymphadenopathy, thyromegaly Respiratory exam: PRESENT: clear to auscultation da[place]. ABSENT: rales, rhonchi, wheezes Cardiovascular exam: PRESENT: RRR. ABSENT: diastolic murmur, rubs, systolic murmur Pulses: PRESENT: normal dorsalis pedis pul Vascular exam: PRESENT: normal capillary refill GI/Abdominal exam: PRESENT: normal bowel sounds, soft, other - Ostomy bag in place. ABSENT: distended, guarding, mass, organolmegaly, rebound, tenderness Rectal exam: PRESENT: deferred Extremities exam: PRESENT: other - Positive for upper and lower extremity wasting. ABSENT: calf tenderness, clubbing, pedal edema Musculoskeletal exam: PRESENT: full ROM - Positive upper and lower extreme wasting Neurological exam: PRESENT: alert, awake, oriented to person Psychiatric exam: PRESENT: agitated. ABSENT: homicidal ideation, suicidal ideation Skin exam: PRESENT: dry, intact, warm Results Laboratory Results: 09/16/17 04:45 09/16/17 04:45 09/15/17 09/15/17 09/16/17 10:20 13:25 04:45 WBC 25.1 H RBC 3.46 L Hgb 8.5 L Hct 27.1 L MCV 78 L MCH 24.7 L MCHC 31.5 L RDW 18.7 H Plt Count 719 H Seg Neutrophils % Not Reportable Lymphocytes % Not Reportable Monocytes % Not Reportable Eosinophils % Not Reportable Basophils % Not Reportable Absolute Neutrophils Not Reportable Absolute Lymphocytes Not Reportable Absolute Monocytes Not Reportable Absolute Eosinophils Not Reportable Absolute Basophils Not Reportable Sodium Potassium Chloride Carbon Dioxide Anion Gap BUN Creatinine Est GFR ( Amer) Est GFR (Non-Af Amer) Glucose Calcium Phosphorus Magnesium Total Bilirubin AST ALT Alkaline Phosphatase Total Protein Albumin Urine Color YELLOW Urine Appearance CLEAR Urine pH 7.0 Ur Specific [place] 1.004 Urine Protein NEGATIVE Urine Glucose (UA) NEGATIVE Urine Ketones NEGATIVE Urine Blood SMALL H Urine Nitrite NEGATIVE Ur Leukocyte Esterase MODERATE H Urine WBC (Auto) 19 Urine RBC (Auto) 1 Stool Occult Blood NEGATIVE 09/16/17 09/16/17 09/16/17 04:45 04:45 04:45 WBC RBC Hgb Hct MCV MCH MCHC RDW Plt Count Seg Neutrophils % Lymphocytes % Monocytes % Eosinophils % Basophils % Absolute Neutrophils Absolute Lymphocytes Absolute Monocytes Absolute Eosinophils Absolute Basophils Sodium 144.9 Potassium 3.3 L Chloride 101 Carbon Dioxide 32 H Anion Gap 12 BUN 5 L Creatinine 1.09 Est GFR ( Amer) > 60 Est GFR (Non-Af Amer) > 60 Glucose 152 H Calcium 10.5 H Phosphorus 5.4 H Magnesium 1.5 L Total Bilirubin 0.4 AST 13 L ALT 18 L Alkaline Phosphatase 130 H Total Protein 5.8 L Albumin 2.4 L Urine Color STRAW Urine Appearance CLEAR Urine pH 7.0 Ur Specific [place] 1.005 Urine Protein NEGATIVE Urine Glucose (UA) NEGATIVE Urine Ketones NEGATIVE Urine Blood NEGATIVE Urine Nitrite NEGATIVE Ur Leukocyte Esterase SMALL H Urine WBC (Auto) 8 Urine RBC (Auto) 0 Stool Occult Blood NEGATIVE 09/10/17 17:25 Blood Blood Culture - Final NO GROWTH IN 5 DAYS 08/24/17 08/24/17 08/25/17 18:00 22:00 05:15 Creatine Kinase 140 117 82 CK-MB (CK-2) Troponin I NT-Pro-B Natriuret Pep 09/02/17 09/02/17 09/03/17 17:45 17:45 05:35 Creatine Kinase 50 L CK-MB (CK-2) 0.40 Troponin I 0.027 NT-Pro-B Natriuret Pep 4690 H Impressions: Thoracic Spine CT 08/26/17 08:00 IMPRESSION: No acute findings in the thoracic spine. Abdomen/Pelvis CT 08/27/17 00:00 IMPRESSION: 1. Extensive basilar pulmonary changes suggesting pneumonia. 2. No evidence of intra- abdominal or intrapelvic abscess or drainable collection. Postoperative changes as above without evidence of mechanical bowel obstruction. 3. Marked irregular soft tissue loss in the proximal left posterior and medial thigh, incompletely assessed. No suggestion of regional drainable collection as imaged. Chest X-Ray 09/13/17 00:00 IMPRESSION: NO ACUTE RADIOGRAPHIC FINDING IN THE CHEST. Assessment & Plan - Diagnosis (1) Abscess or cellulitis of perineum Is this a current diagnosis for this admission?: Yes Plan: Repeat blood cultures demonstrated no growth. Urine has demonstrated no growth. Patient's C. difficile was negative. Will continue vancomycin and Zosyn. Will consult Dr. Vasquez FARRELL to help with care of patient. (2) Crohns disease Qualifiers: Gastrointestinal tract location: unspecified location Is this a current diagnosis for this admission?: Yes Plan: No evidence of acute flare. (3) Diabetes mellitus Qualifiers: Diabetes mellitus type: type 1 Diabetes mellitus complication status: with unspecified complications Qualified Code(s): E10.8 - Type 1 diabetes mellitus with unspecified complications Is this a current diagnosis for this admission?: Yes Plan: Continue current treatment plan. (4) Pneumonia Qualifiers: Laterality: bilateral Lung location: unspecified part of lung Is this a current diagnosis for this admission?: Yes Plan: Resolved (5) Leukocytosis Qualifiers: Leukocytosis type: bandemia Qualified Code(s): D72.825 - Bandemia Is this a current diagnosis for this admission?: Yes Plan: Secondary to enterococcus bacteremia and wound infection: We will continue vancomycin and Zosyn for now. Will consult ID. Patient's central line from September 10 has been removed and patient does have new central line in place. This was confirmed with nursing staff. (6) Hypotension Qualifiers: Hypotension type: other hypotension type Qualified Code(s): I95.89 - Other hypotension Is this a current diagnosis for this admission?: Yes Plan: Will continue on NS at 75cc/hours. (7) Diabetic keto-acidosis Qualifiers: Diabetes mellitus type: type 1 Diabetes mellitus complication detail: with coma Qualified Code(s): E10.11 - Type 1 diabetes mellitus with ketoacidosis with coma Is this a current diagnosis for this admission?: Yes Plan: Resolved. (8) Severe protein-calorie malnutrition Is this a current diagnosis for this admission?: Yes Plan: Will encourage PO intake and continue supplemental drink. (9) Hidradenitis suppurativa of anus Is this a current diagnosis for this admission?: Yes Plan: Surgery to manage. (10) Hypoxic brain injury Is this a current diagnosis for this admission?: Yes Plan: Patient appears to be demonstrating some improvement. Patient is more vocal this morning. Patient's Neurontin has been discontinued. (11) Diabetic neuropathy Qualifiers: Diabetes mellitus type: type 1 Diabetes mellitus complication detail: diabetic polyneuropathy Qualified Code(s): E10.42 - Type 1 diabetes mellitus with diabetic polyneuropathy Is this a current diagnosis for this admission?: Yes Plan: Will discontinue Neurontin to see if mental status improve. (12) Chronic pain Qualifiers: Chronic pain type: chronic pain syndrome Qualified Code(s): G89.4 - Chronic pain syndrome Is this a current diagnosis for this admission?: Yes Plan: Will continue pain medications. (13) Opioid dependence in controlled environment Is this a current diagnosis for this admission?: Yes Plan: Will continue pain medication. (14) Hypercalcemia due to immobilization Is this a current diagnosis for this admission?: Yes Plan: We will continue with IV fluids. Will monitor tomorrow. Give additional IV fluids. Patient's calcium has improved with volume expansion. - Time Time Spent with patient: 25-34 minutes
[2017-09-16] MEDS: OXYCODONE HCL IR 5 MG TABLET PO PRN (11:57)
--- NOTE | 2017-09-16 15:55 | Progress Note ---
Provider Note Provider Note: ID Consult Note- I was asked to review the patient's chart because of persistent leukocytosis. He has had a prolonged hospitalization. The patient has had leukocytosis since June,. The patient has not had a fever since August 29. The prolonged leukocytosis raises concerns about either chronic infections (e.g. , TB) vs. non-infectious etiologies. Patient has known Crohn's disease as well as hydradenitis. He had a pneumonia when he was admitted. I reviewed the CT scan and CXRs of the patient. There appears to be some resolution of the infiltrates by CXR. Blood culture from September 10 had Enterococcus in one set that was drawn from a central line. All other blood cultures have been negative. He has received antibiotics for most of his long hospitalization and is currently receiving both vancomycin and Zosyn. Recommendations: 1. Discontinue antibiotics. 2. Repeat blood cultures after patient has been off antibiotics for at least [address] P[address] or sent blood for Quantiferon test. 4. Consider hematology consult to rule out conditions such as CML. 5. Send blood procalcitonin level. If the level is normal, this would argue against a bacterial cause for the leukocytosis. 6. Please re-consult surgery to assess if there is any need for further surgical debridement of the hydradenitis. Vasquez Kunz MD Pager: [phone]
[2017-09-16] MEDS ORDERED: FINASTERIDE 5 MG TABLET PO ONE (18:45)
[2017-09-17] MEDS: DILTIAZEM HCL 60 MG TABLET PO SCH ×3 (03:24→17:38)
[2017-09-17] MEDS: PIPERACILLIN SODIUM/TAZOBACTAM 3.375 GM in NORMAL SALINE 100 ML IV SCH (03:25)
[2017-09-17] MEDS: DULOXETINE HCL 30 MG CAPSULE.DR PO SCH ×2 (09:36→21:32)
[2017-09-17] MEDS: FAMOTIDINE 20 MG TABLET PO SCH ×2 (09:36→21:33)
[2017-09-17] MEDS: MORPHINE SULFATE SR 100 MG TABLET PO SCH ×2 (09:37→21:33)
[2017-09-17] MEDS: FINASTERIDE 5 MG TABLET PO SCH (09:37)
[2017-09-17] MEDS: MULTIVITAMINS W-IRON TABLET, CHEWABLE PO SCH (09:37)
[2017-09-17] MEDS: ENOXAPARIN SODIUM INJ 40 MG/0.4 ML DISP.SYRIN SUBCUT SCH (09:38)
[2017-09-17] MEDS: NYSTATIN 500000 UNIT/5 ML UDCUP PO SCH ×4 (09:38→21:50)
--- NOTE | 2017-09-17 09:58 | PDOC PROGRESS REPORT ---
Subjective Progress Note for:: 09/17/17 Subjective:: Pt agitated this morning. Nursing states that pt continues to pull araiza. Reason For Visit: DKA, SEPSIS Physical Exam Vital Signs: Temp Pulse Resp BP Pulse Ox 98.1 F 112 H 16 147/81 H 99 09/17/17 08:14 09/17/17 08:14 09/17/17 08:14 09/17/17 08:14 09/17/17 08:14 Intake & Output 09/16/17 09/17/17 09/18/17 06:59 06:59 07:59 Intake Total 2720 2800 Output Total 3075 2950 Balance -355 -150 Weight 56 kg 56 kg General appearance: PRESENT: no acute distress, thin, well-developed Head exam: PRESENT: atraumatic, normocephalic Eye exam: PRESENT: conjunctiva pink, EOMI. ABSENT: scleral icterus Ear exam: PRESENT: normal external ear exam Mouth exam: PRESENT: moist, tongue midline Neck exam: ABSENT: carotid bruit, JVD, lymphadenopathy, thyromegaly Respiratory exam: PRESENT: clear to auscultation [place]. ABSENT: rales, rhonchi, wheezes Cardiovascular exam: PRESENT: RRR. ABSENT: diastolic murmur, rubs, systolic murmur Pulses: PRESENT: normal dorsalis pedis pul Vascular exam: PRESENT: normal capillary refill GI/Abdominal exam: PRESENT: normal bowel sounds, soft. ABSENT: distended, guarding, mass, organolmegaly, rebound, tenderness Rectal exam: PRESENT: deferred Extremities exam: PRESENT: full ROM. ABSENT: calf tenderness, clubbing, pedal edema Musculoskeletal exam: PRESENT: full ROM Neurological exam: PRESENT: alert, awake, oriented to person Psychiatric exam: PRESENT: appropriate affect, normal mood. ABSENT: homicidal ideation, suicidal ideation Skin exam: PRESENT: dry, intact, warm. ABSENT: cyanosis, rash Results Laboratory Results: 09/16/17 04:45 09/16/17 04:45 08/24/17 08/24/17 08/25/17 18:00 22:00 05:15 Creatine Kinase 140 117 82 CK-MB (CK-2) Troponin I NT-Pro-B Natriuret Pep 09/02/17 09/02/17 09/03/17 17:45 17:45 05:35 Creatine Kinase 50 L CK-MB (CK-2) 0.40 Troponin I 0.027 NT-Pro-B Natriuret Pep 4690 H Impressions: Thoracic Spine CT 08/26/17 08:00 IMPRESSION: No acute findings in the thoracic spine. Abdomen/Pelvis CT 08/27/17 00:00 IMPRESSION: 1. Extensive basilar pulmonary changes suggesting pneumonia. 2. No evidence of intra- abdominal or intrapelvic abscess or drainable collection. Postoperative changes as above without evidence of mechanical bowel obstruction. 3. Marked irregular soft tissue loss in the proximal left posterior and medial thigh, incompletely assessed. No suggestion of regional drainable collection as imaged. Chest X-Ray 09/13/17 00:00 IMPRESSION: NO ACUTE RADIOGRAPHIC FINDING IN THE CHEST. Assessment & Plan - Diagnosis (1) Abscess or cellulitis of perineum Is this a current diagnosis for this admission?: Yes Plan: Repeat blood cultures demonstrated no growth. Urine has demonstrated no growth. Patient's C. difficile was negative. ID recommended discontinuation of antibiotics and repeating culture in 2 days. (2) Crohns disease Qualifiers: Gastrointestinal tract location: unspecified location Is this a current diagnosis for this admission?: Yes Plan: No evidence of acute flare. (3) Diabetes mellitus Qualifiers: Diabetes mellitus type: type 1 Diabetes mellitus complication status: with unspecified complications Qualified Code(s): E10.8 - Type 1 diabetes mellitus with unspecified complications Is this a current diagnosis for this admission?: Yes Plan: Continue current treatment plan. (4) Pneumonia Qualifiers: Laterality: bilateral Lung location: unspecified part of lung Is this a current diagnosis for this admission?: Yes Plan: Resolved (5) Leukocytosis Qualifiers: Leukocytosis type: bandemia Qualified Code(s): D72.825 - Bandemia Is this a current diagnosis for this admission?: Yes Plan: Secondary to enterococcus bacteremia and wound infection: ID recommended stopping antibiotics. (6) Hypotension Qualifiers: Hypotension type: other hypotension type Qualified Code(s): I95.89 - Other hypotension Is this a current diagnosis for this admission?: Yes Plan: Will continue on NS at 75cc/hours. (7) Diabetic keto-acidosis Qualifiers: Diabetes mellitus type: type 1 Diabetes mellitus complication detail: with coma Qualified Code(s): E10.11 - Type 1 diabetes mellitus with ketoacidosis with coma Is this a current diagnosis for this admission?: Yes Plan: Resolved. (8) Severe protein-calorie malnutrition Is this a current diagnosis for this admission?: Yes Plan: Will encourage PO intake and continue supplemental drink. (9) Hidradenitis suppurativa of anus Is this a current diagnosis for this admission?: Yes Plan: Surgery to manage. (10) Hypoxic brain injury Is this a current diagnosis for this admission?: Yes Plan: Patient appears to be demonstrating some improvement. Patient is more vocal this morning. Is not agitated this morning. Will give 1 dose of Risperdal. Will reevaluate. (11) Diabetic neuropathy Qualifiers: Diabetes mellitus type: type 1 Diabetes mellitus complication detail: diabetic polyneuropathy Qualified Code(s): E10.42 - Type 1 diabetes mellitus with diabetic polyneuropathy Is this a current diagnosis for this admission?: Yes Plan: Supportive of care. (12) Chronic pain Qualifiers: Chronic pain type: chronic pain syndrome Qualified Code(s): G89.4 - Chronic pain syndrome Is this a current diagnosis for this admission?: Yes Plan: Will continue pain medications. (13) Opioid dependence in controlled environment Is this a current diagnosis for this admission?: Yes Plan: Will continue pain medication. (14) Hypercalcemia due to immobilization Is this a current diagnosis for this admission?: Yes Plan: We will continue with IV fluids. Will monitor tomorrow. Check CMP in a.m. (15) Hypomagnesemia Is this a current diagnosis for this admission?: Yes Plan: We will give magnesium replacement. (16) Hypokalemia Is this a current diagnosis for this admission?: Yes Plan: We will give potassium replacement. (17) Hematuria Is this a current diagnosis for this admission?: Yes Plan: Secondary to [place] trauma: Supportive care. - Time Time Spent with patient: 15-24 minutes
[2017-09-17] MEDS ORDERED: TUBERCULIN,PURIF.PROT.DERIV. 5 TU/0.1 ML TEST 1 ML VIAL ID ONE (10:30)
[2017-09-17] MEDS ORDERED: RISPERIDONE 0.5 MG TAB.RAPDIS PO ONE (10:30)
[2017-09-17] MEDS: MAGNESIUM SULFATE/D5W 1 GM/100 ML RTUPB IV SCH ×2 (12:41→16:05)
--- NOTE | 2017-09-17 12:42 | PDOC CONSULTATION ---
Consultation Consult Date: 09/17/17 Attending physician:: TERESITA GERBER Consult reason:: Leukocytosis History of Present Illness Admission Date/PCP: 08/24/17 16:51 DELROY CROUCH DO Patient complains of: Leukocytosis History of Present Illness: 51-year-old male with a complicated medical history, history of Crohn's disease with colostomy placement, also seemingly history of chronic infection, he does have groin abscess, that has been recently drained, he came in with what appeared to be confusion, obtunded, sounds like he was found down for a period of time, sounds like he may have had some sort of brain injury, he also had some ulcerations noted on his back, sacrum area, at that time, thus far is not able to really give a history because he has been confused for the most part. In review of his labs he has had a persistent leukocytosis, certainly higher during this hospitalization but ranging anywhere from 15-30,000, primarily neutrophilia, he is also had a relative thrombocytosis as well. He has been on antibiotics now for almost about 4 weeks, previous cultures were appropriately treated but most recent cultures were negative, he was seen by infectious disease who recommended discontinuing all antibiotics, and also recommended a hematology consult. Past Medical History Cardiac Medical History: Reports: Myocardial Infarction - NOVEMBER 2014, Hypertension Denies: Coronary Artery Disease Pulmonary Medical History: Reports: Asthma, Pneumonia Denies: Bronchitis, Chronic Obstructive Pulmonary Disease (COPD) Neurological Medical History: Reports: Seizures Endocrine Medical History: Reports: Diabetes Mellitus Type 2 GI Medical History: Reports: Crohn's Disease Musculoskeltal Medical History: Reports: Arthritis Skin Medical History: Reports: Other - RECURRENT CELLULITIS & ABSCESS FORMATION IN PERINEAL, GENITAL, AND GLUTEAL Psychiatric Medical History: Reports: Depression Hematology: Reports: Anemia Past Surgical History Past Surgical History: Reports: Colostomy Social History Lives with: Alone Smoking Status: Unknown if Ever Smoked Frequency of Alcohol Use: None Hx Recreational Drug Use: No Hx Prescription Drug Abuse: No - Advance Directive Resuscitation Status: Full Code Family History Family History: Other - Crohn's-sister Parental Family History Reviewed: Yes Children Family History Reviewed: Yes Sibling(s) Family History Reviewed.: Yes Medication/Allergy Home Medications: Duloxetine HCl [Cymbalta] 60 mg PO Q12 08/24/17 Gabapentin [Neurontin 300 mg Capsule] 600 mg PO Q8 08/24/17 Insulin Aspart [Novolog Flexpen] 25 unit SQ Q12 08/24/17 Metformin HCl [Glucophage] 1,000 mg PO BIDACBS 08/24/17 Morphine Sulfate [Morphine Sulfate ER] 100 mg PO Q12 08/24/17 Naloxone HCl [Narcan] 1 spray NS ASDIR PRN 08/24/17 Ondansetron HCl [Zofran 8 mg Tablet] 8 mg PO Q8HP PRN 08/24/17 Oxycodone HCl [Oxy-Ir 5 mg Tablet] 20 mg PO Q4HP PRN 08/24/17 Prednisone [Deltasone 10 mg Tablet] 10 mg PO Q12 08/24/17 Allergies/Adverse Reactions: atropine sulfate [From Lomotil] Allergy (Verified 02/21/17 13:49) diphenoxylate HCl [From Lomotil] Allergy (Verified 02/21/17 13:49) erythromycin base [Erythromycin Base] Allergy (Verified 02/21/17 13:49) paroxetine HCl [From Paxil] Allergy (Verified 02/21/17 13:49) sulfamethoxazole [From Bactrim] Allergy (Verified 02/21/17 13:49) trimethoprim [From Bactrim] Allergy (Verified 02/21/17 13:49) Review of Systems ROS unobtainable: Due to mental status Physical Exam Vital Signs: Temp Pulse Resp BP Pulse Ox 98.1 F 112 H 16 147/81 H 99 09/17/17 08:14 09/17/17 08:14 09/17/17 08:14 09/17/17 08:14 09/17/17 08:14 Intake & Output 09/16/17 09/17/17 09/18/17 06:59 06:59 07:59 Intake Total 2720 2800 Output Total 3075 2950 Balance -355 -150 Weight 56 kg 56 kg General appearance: PRESENT: no acute distress, disheveled, thin Head exam: PRESENT: atraumatic Mouth exam: PRESENT: dry mucosa Respiratory exam: PRESENT: clear to auscultation [place]. ABSENT: rales, rhonchi, wheezes GI/Abdominal exam: PRESENT: normal bowel sounds, soft. ABSENT: distended, guarding, mass, organolmegaly, rebound, tenderness Rectal exam: PRESENT: deferred Neurological exam: PRESENT: altered, awake Psychiatric exam: PRESENT: agitated Focused psych exam: PRESENT: pressured speech Results Laboratory Results: 09/16/17 04:45 09/16/17 04:45 09/15/17 10:20 Catheterized Urine Urine Culture - Final NO GROWTH 2 DAYS 08/24/17 08/24/17 08/25/17 18:00 22:00 05:15 Creatine Kinase 140 117 82 CK-MB (CK-2) Troponin I NT-Pro-B Natriuret Pep 09/02/17 09/02/17 09/03/17 17:45 17:45 05:35 Creatine Kinase 50 L CK-MB (CK-2) 0.40 Troponin I 0.027 NT-Pro-B Natriuret Pep 4690 H Impressions: Thoracic Spine CT 08/26/17 08:00 IMPRESSION: No acute findings in the thoracic spine. Abdomen/Pelvis CT 08/27/17 00:00 IMPRESSION: 1. Extensive basilar pulmonary changes suggesting pneumonia. 2. No evidence of intra- abdominal or intrapelvic abscess or drainable collection. Postoperative changes as above without evidence of mechanical bowel obstruction. 3. Marked irregular soft tissue loss in the proximal left posterior and medial thigh, incompletely assessed. No suggestion of regional drainable collection as imaged. Chest X-Ray 09/13/17 00:00 IMPRESSION: NO ACUTE RADIOGRAPHIC FINDING IN THE CHEST. Assessment & Plan - Diagnosis (1) Leukocytosis Qualifiers: Leukocytosis type: bandemia Qualified Code(s): D72.825 - Bandemia Is this a current diagnosis for this admission?: Yes Plan: Patient with leukocytosis, most likely going to be a reactive process to possibly the infections ongoing as well as the wounds that he has had, also in part secondary to the Crohn's disease as well as inflammation related to that, however we will certainly do peripheral blood evaluation for myeloproliferative disorder, CML. To that extent I have sent a flow cytometry, FISH for BCRABL, JAK2 mutational analysis, with reflex to EXON-12, MPL. This will however take about 2 weeks to come back. At present, would not recommend a bone marrow biopsy because I think the probability of either myeloproliferative disorder or CML to be the primary issue is low. Will follow - Time Time Spent: Greater than 70 Minutes - Inpatient Certification Based on my medical assessment, after consideration of the patient's comorbidities, presenting symptoms, or acuity I expect that the services needed warrant INPATIENT care.: Yes I certify that my determination is in accordance with my understanding of Medicare's requirements for reasonable and necessary INPATIENT services [42 CFR 412.3e].: Yes Medical Necessity: Need For Continuous Telemetry Monitoring, Need for Neurological Checks, Risk of Complication if Not Cared For in Hospital
[2017-09-17] MEDS: TAMSULOSIN HCL 0.4 MG CAP.SR.24H PO SCH (21:34)
[2017-09-18 05:58] LABS: ALBUMIN 2.7 g/dL (3.5-5.0); CARBON DIOXIDE 34 mmol/L (22-30); TOTAL PROTEIN 6.6 g/dL (6.3-8.2)
[2017-09-18 05:59] LABS: BLOOD UREA NITROGEN 5 mg/dL (7-20); GLUCOSE 144 mg/dL (75-110)
[2017-09-18 06:00] LABS: ALANINE AMINOTRANSFERASE 15 U/L (21-72); ALKALINE PHOSPHATASE 142 U/L (38-126); ASPARTATE AMINO TRANSFERASE 17 U/L (17-59); BILIRUBIN,DIRECT 0.6 mg/dL (0.0-0.4); BILIRUBIN,TOTAL 0.6 mg/dL (0.2-1.3)
[2017-09-18 06:01] LABS: ANION GAP 11 (5-19); CHLORIDE 98 mmol/L (98-107); SODIUM 142.9 mmol/L (137-145)
--- NOTE | 2017-09-18 09:21 | PDOC PROGRESS REPORT ---
Subjective Progress Note for:: 09/18/17 Subjective:: Nursing reports the patient was very agitated overnight. Nursing states that pt has been removing restraints. Reason For Visit: DKA, SEPSIS Physical Exam Vital Signs: Temp Pulse Resp BP Pulse Ox 97.9 F 96 14 129/77 H 100 09/18/17 00:31 09/18/17 03:27 09/18/17 03:27 09/18/17 03:27 09/18/17 03:27 Intake & Output 09/17/17 09/18/17 09/19/17 05:59 06:59 06:59 Intake Total Output Total Balance Weight General appearance: PRESENT: mild distress, thin, well-developed Head exam: PRESENT: atraumatic, normocephalic Eye exam: PRESENT: conjunctiva pink, EOMI. ABSENT: scleral icterus Ear exam: PRESENT: normal external ear exam Mouth exam: PRESENT: moist, tongue midline Neck exam: ABSENT: carotid bruit, JVD, lymphadenopathy, thyromegaly Respiratory exam: PRESENT: clear to auscultation daija. ABSENT: rales, rhonchi, wheezes Cardiovascular exam: PRESENT: RRR. ABSENT: diastolic murmur, rubs, systolic murmur Pulses: PRESENT: normal dorsalis pedis pul Vascular exam: PRESENT: normal capillary refill GI/Abdominal exam: PRESENT: normal bowel sounds, soft. ABSENT: distended, guarding, mass, organolmegaly, rebound, tenderness Rectal exam: PRESENT: deferred Extremities exam: PRESENT: full ROM. ABSENT: calf tenderness, clubbing, pedal edema Musculoskeletal exam: PRESENT: full ROM Neurological exam: PRESENT: alert, awake, oriented to person, other - agitated. Psychiatric exam: PRESENT: agitated Skin exam: PRESENT: dry, intact, warm Results Laboratory Results: 09/16/17 04:45 09/18/17 05:20 09/18/17 05:20 Sodium 142.9 Potassium 3.0 L* Chloride 98 Carbon Dioxide 34 H Anion Gap 11 BUN 5 L Creatinine 1.06 Est GFR ( Amer) > 60 Est GFR (Non-Af Amer) > 60 Glucose 144 H Calcium 10.0 Magnesium 1.8 Total Bilirubin 0.6 AST 17 ALT 15 L Alkaline Phosphatase 142 H Total Protein 6.6 Albumin 2.7 L 09/15/17 10:20 Catheterized Urine Urine Culture - Final NO GROWTH 2 DAYS 08/24/17 08/24/17 08/25/17 18:00 22:00 05:15 Creatine Kinase 140 117 82 CK-MB (CK-2) Troponin I NT-Pro-B Natriuret Pep 09/02/17 09/02/17 09/03/17 17:45 17:45 05:35 Creatine Kinase 50 L CK-MB (CK-2) 0.40 Troponin I 0.027 NT-Pro-B Natriuret Pep 4690 H Impressions: Thoracic Spine CT 08/26/17 08:00 IMPRESSION: No acute findings in the thoracic spine. Abdomen/Pelvis CT 08/27/17 00:00 IMPRESSION: 1. Extensive basilar pulmonary changes suggesting pneumonia. 2. No evidence of intra- abdominal or intrapelvic abscess or drainable collection. Postoperative changes as above without evidence of mechanical bowel obstruction. 3. Marked irregular soft tissue loss in the proximal left posterior and medial thigh, incompletely assessed. No suggestion of regional drainable collection as imaged. Chest X-Ray 09/13/17 00:00 IMPRESSION: NO ACUTE RADIOGRAPHIC FINDING IN THE CHEST. Assessment & Plan - Diagnosis (1) Abscess or cellulitis of perineum Is this a current diagnosis for this admission?: Yes Plan: Repeat blood cultures demonstrated no growth. Urine has demonstrated no growth. Patient's C. difficile was negative. ID recommended discontinuation of antibiotics and repeating culture tomorrow. (2) Crohns disease Qualifiers: Gastrointestinal tract location: unspecified location Is this a current diagnosis for this admission?: Yes Plan: Will have GI seen pt on 09/21/2017. (3) Diabetes mellitus Qualifiers: Diabetes mellitus type: type 1 Diabetes mellitus complication status: with unspecified complications Qualified Code(s): E10.8 - Type 1 diabetes mellitus with unspecified complications Is this a current diagnosis for this admission?: Yes Plan: Continue current treatment plan. (4) Pneumonia Qualifiers: Laterality: bilateral Lung location: unspecified part of lung Is this a current diagnosis for this admission?: Yes Plan: Resolved (5) Leukocytosis Qualifiers: Leukocytosis type: bandemia Qualified Code(s): D72.825 - Bandemia Is this a current diagnosis for this admission?: Yes Plan: Secondary to enterococcus bacteremia and wound infection: Oncology evaluate and will have GI evaluate pt on 09/21/2017. (6) Hypotension Qualifiers: Hypotension type: other hypotension type Qualified Code(s): I95.89 - Other hypotension Is this a current diagnosis for this admission?: Yes Plan: Will continue on NS at 75cc/hours. (7) Diabetic keto-acidosis Qualifiers: Diabetes mellitus type: type 1 Diabetes mellitus complication detail: with coma Qualified Code(s): E10.11 - Type 1 diabetes mellitus with ketoacidosis with coma Is this a current diagnosis for this admission?: Yes Plan: Resolved. (8) Severe protein-calorie malnutrition Is this a current diagnosis for this admission?: Yes Plan: Will encourage PO intake and continue supplemental drink. (9) Hidradenitis suppurativa of anus Is this a current diagnosis for this admission?: Yes Plan: Surgery to manage. (10) Hypoxic brain injury Is this a current diagnosis for this admission?: Yes Plan: Will place on risperdal 1 mg PO BID (11) Diabetic neuropathy Qualifiers: Diabetes mellitus type: type 1 Diabetes mellitus complication detail: diabetic polyneuropathy Qualified Code(s): E10.42 - Type 1 diabetes mellitus with diabetic polyneuropathy Is this a current diagnosis for this admission?: Yes Plan: Supportive of care. (12) Chronic pain Qualifiers: Chronic pain type: chronic pain syndrome Qualified Code(s): G89.4 - Chronic pain syndrome Is this a current diagnosis for this admission?: Yes Plan: Will continue pain medications. (13) Opioid dependence in controlled environment Is this a current diagnosis for this admission?: Yes Plan: Will continue pain medication. (14) Hypercalcemia due to immobilization Is this a current diagnosis for this admission?: Yes Plan: We will continue with IV fluids. Resolved (15) Hypomagnesemia Is this a current diagnosis for this admission?: Yes Plan: Resolved (16) Hypokalemia Is this a current diagnosis for this admission?: Yes Plan: Will give Potassium replacement. Will check CMP. (17) Hematuria Is this a current diagnosis for this admission?: Yes Plan: Secondary to Landry trauma: Supportive care. - Time Time Spent with patient: 15-24 minutes
[2017-09-18] MEDS: NYSTATIN 500000 UNIT/5 ML UDCUP PO SCH ×2 (09:36→16:34)
[2017-09-18] MEDS: DULOXETINE HCL 30 MG CAPSULE.DR PO SCH ×2 (09:36→21:56)
[2017-09-18] MEDS: MULTIVITAMINS W-IRON TABLET, CHEWABLE PO SCH (09:36)
[2017-09-18] MEDS: FAMOTIDINE 20 MG TABLET PO SCH ×2 (09:36→21:55)
[2017-09-18] MEDS: DILTIAZEM HCL 60 MG TABLET PO SCH ×2 (09:37→16:34)
[2017-09-18] MEDS: FINASTERIDE 5 MG TABLET PO SCH (09:37)
[2017-09-18] MEDS: MORPHINE SULFATE SR 100 MG TABLET PO SCH ×2 (09:37→21:55)
[2017-09-18] MEDS: ENOXAPARIN SODIUM INJ 40 MG/0.4 ML DISP.SYRIN SUBCUT SCH (09:37)
[2017-09-18] MEDS ORDERED: RISPERIDONE 1 MG TAB.RAPDIS PO ONE (10:30)
--- NOTE | 2017-09-18 11:49 | PDOC PROGRESS REPORT ---
Subjective Progress Note for:: 09/18/17 Subjective:: Pt still w/ confusion and agitation. Reason For Visit: DKA, SEPSIS Physical Exam Vital Signs: Temp Pulse Resp BP Pulse Ox 98.2 F 114 H 16 128/68 H 100 09/18/17 08:32 09/18/17 08:32 09/18/17 08:32 09/18/17 08:32 09/18/17 08:32 Intake & Output 09/17/17 09/18/17 09/19/17 05:59 06:59 06:59 Intake Total Output Total Balance Weight General appearance: PRESENT: no acute distress, well-developed, well-nourished Head exam: PRESENT: atraumatic, normocephalic Eye exam: PRESENT: conjunctiva pink, EOMI, PERRLA. ABSENT: scleral icterus Ear exam: PRESENT: normal external ear exam Mouth exam: PRESENT: moist, tongue midline Neck exam: ABSENT: carotid bruit, JVD, lymphadenopathy, thyromegaly Respiratory exam: PRESENT: clear to auscultation daija. ABSENT: rales, rhonchi, wheezes Cardiovascular exam: PRESENT: RRR. ABSENT: diastolic murmur, rubs, systolic murmur Pulses: PRESENT: normal dorsalis pedis pul Vascular exam: PRESENT: normal capillary refill GI/Abdominal exam: PRESENT: normal bowel sounds, soft. ABSENT: distended, guarding, mass, organolmegaly, rebound, tenderness Rectal exam: PRESENT: deferred Extremities exam: PRESENT: full ROM. ABSENT: calf tenderness, clubbing, pedal edema Neurological exam: PRESENT: alert, awake, oriented to person, oriented to place , oriented to time, oriented to situation, CN II-XII grossly intact. ABSENT: motor sensory deficit Psychiatric exam: PRESENT: appropriate affect, normal mood. ABSENT: homicidal ideation, suicidal ideation Skin exam: PRESENT: dry, intact, warm. ABSENT: cyanosis, rash Results Laboratory Results: 09/16/17 04:45 09/18/17 05:20 09/18/17 05:20 Sodium 142.9 Potassium 3.0 L* Chloride 98 Carbon Dioxide 34 H Anion Gap 11 BUN 5 L Creatinine 1.06 Est GFR ( Amer) > 60 Est GFR (Non-Af Amer) > 60 Glucose 144 H Calcium 10.0 Magnesium 1.8 Total Bilirubin 0.6 AST 17 ALT 15 L Alkaline Phosphatase 142 H Total Protein 6.6 Albumin 2.7 L 09/15/17 10:20 Catheterized Urine Urine Culture - Final NO GROWTH 2 DAYS 08/24/17 08/24/17 08/25/17 18:00 22:00 05:15 Creatine Kinase 140 117 82 CK-MB (CK-2) Troponin I NT-Pro-B Natriuret Pep 09/02/17 09/02/17 09/03/17 17:45 17:45 05:35 Creatine Kinase 50 L CK-MB (CK-2) 0.40 Troponin I 0.027 NT-Pro-B Natriuret Pep 4690 H Impressions: Thoracic Spine CT 08/26/17 08:00 IMPRESSION: No acute findings in the thoracic spine. Abdomen/Pelvis CT 08/27/17 00:00 IMPRESSION: 1. Extensive basilar pulmonary changes suggesting pneumonia. 2. No evidence of intra- abdominal or intrapelvic abscess or drainable collection. Postoperative changes as above without evidence of mechanical bowel obstruction. 3. Marked irregular soft tissue loss in the proximal left posterior and medial thigh, incompletely assessed. No suggestion of regional drainable collection as imaged. Chest X-Ray 09/13/17 00:00 IMPRESSION: NO ACUTE RADIOGRAPHIC FINDING IN THE CHEST. Assessment & Plan - Diagnosis (1) Leukocytosis Qualifiers: Leukocytosis type: bandemia Qualified Code(s): D72.825 - Bandemia Is this a current diagnosis for this admission?: Yes Plan: As noted prev, labs will be sent out on tuesday for myeloproliferative w/u, will take 2-3 weeks for them to come back, no plans for BMBx at present unless those screening labs come positive. Will follow.
[2017-09-18] MEDS: POTASSI CL 20 MEQ/50 ML RIDER 20 MEQ/50 ML RTUPB IV SCH ×3 (12:21→17:41)
[2017-09-18] MEDS: TAMSULOSIN HCL 0.4 MG CAP.SR.24H PO SCH (21:55)
[2017-09-18] MEDS ORDERED: RISPERIDONE 1 MG TAB.RAPDIS PO SCH (22:00)
[2017-09-18] MEDS: INSULIN LISPRO 100 UNIT/ML 3 ML VIAL SUBCUT PRN (22:47)
[2017-09-19] MEDS: DILTIAZEM HCL 60 MG TABLET PO SCH ×3 (02:33→17:41)
[2017-09-19 07:22] LABS: HEMATOCRIT 26.8 % (37.9-51.0); HEMOGLOBIN 8.3 g/dL (13.5-17.0); MEAN CORPUSCULAR HEMOGLOBIN 24.4 pg (27.0-33.4); MEAN CORPUSCULAR HGB CONC 31.1 g/dL (32.0-36.0); MEAN CORPUSCULAR VOLUME 78 fl (80-97); PLATELET COUNT 663 10^3/uL (150-450); RED BLOOD COUNT 3.41 10^6/uL (4.35-5.55)
[2017-09-19 07:40] LABS: ALANINE AMINOTRANSFERASE 15 U/L (21-72); ALBUMIN 2.4 g/dL (3.5-5.0); ALKALINE PHOSPHATASE 116 U/L (38-126); ANION GAP 10 (5-19); ASPARTATE AMINO TRANSFERASE 10 U/L (17-59); BILIRUBIN,DIRECT 0.3 mg/dL (0.0-0.4); BILIRUBIN,TOTAL 0.3 mg/dL (0.2-1.3); BLOOD UREA NITROGEN 10 mg/dL (7-20); CALCIUM 9.6 mg/dL (8.4-10.2); CARBON DIOXIDE 35 mmol/L (22-30); CHLORIDE 102 mmol/L (98-107); GLUCOSE 104 mg/dL (75-110); SODIUM 146.7 mmol/L (137-145); TOTAL PROTEIN 6.1 g/dL (6.3-8.2)
[2017-09-19 07:50] LABS: POTASSIUM 2.6 mmol/L (3.6-5.0)
[2017-09-19 08:04] LABS: ABSOLUTE LYMPHOCYTES# (MANUAL) 4.1 10^3/uL (0.5-4.7); ABSOLUTE MONOCYTES # (MANUAL) 2.6 10^3/uL (0.1-1.4); ABSOLUTE NEUTROPHILS# (MANUAL) 16.8 10^3/uL (1.7-8.2); BASOPHILS % (MANUAL) 0 % (0-2); EOSINOPHILS % (MANUAL) 2 % (0-6); LYMPHOCYTES % (MANUAL) 17 % (13-45); MONOCYTES % (MANUAL) 11 % (3-13); SEGMENTED NEUTROPHILS % (MAN) 70 % (42-78); TOTAL CELLS COUNTED 100
[2017-09-19 08:06] LABS: ANISOCYTOSIS 1+; HYPOCHROMASIA SLIGHT; POIKILOCYTOSIS SLIGHT; TARGET CELLS SLIGHT; TEAR DROP CELLS SLIGHT; TOXIC GRANULATION SLIGHT
[2017-09-19 08:07] LABS: PLATELET COMMENT INCREASED
[2017-09-19] MEDS: ENOXAPARIN SODIUM INJ 40 MG/0.4 ML DISP.SYRIN SUBCUT SCH (09:18)
[2017-09-19] MEDS: MORPHINE SULFATE SR 100 MG TABLET PO SCH ×2 (09:19→21:36)
[2017-09-19] MEDS: DULOXETINE HCL 30 MG CAPSULE.DR PO SCH ×2 (09:19→21:37)
[2017-09-19] MEDS: FAMOTIDINE 20 MG TABLET PO SCH ×2 (09:19→21:37)
[2017-09-19] MEDS: MULTIVITAMINS W-IRON TABLET, CHEWABLE PO SCH (09:20)
[2017-09-19] MEDS: FINASTERIDE 5 MG TABLET PO SCH (09:20)
[2017-09-19] MEDS ORDERED: POTASSIUM CHLORIDE 20 MEQ/50 ML RTU IV SCH (10:00)
[2017-09-19] MEDS ORDERED: RISPERIDONE 1 MG TAB.RAPDIS PO SCH ×2 (10:00→22:00)
[2017-09-19] MEDS: NYSTATIN 500000 UNIT/5 ML UDCUP PO SCH ×4 (10:39→21:36)
[2017-09-19] MEDS: OXYCODONE HCL IR 5 MG TABLET PO PRN ×2 (10:39→20:15)
[2017-09-19] MEDS: POTASSIUM CHLORIDE 20 MEQ/50 ML RTU IV SCH ×3 (10:39→15:59)
--- NOTE | 2017-09-19 10:50 | PDOC PROGRESS REPORT ---
Subjective Progress Note for:: 09/19/17 Subjective:: Pt has been confused and agitated yesterday. Pt was sleeping this morning. Reason For Visit: DKA, SEPSIS Physical Exam Vital Signs: Temp Pulse Resp BP Pulse Ox 98.0 F 90 16 118/72 100 09/19/17 08:16 09/19/17 08:16 09/19/17 08:16 09/19/17 08:16 09/19/17 08:16 Intake & Output 09/18/17 09/19/17 09/20/17 06:59 06:59 06:59 Intake Total 567 Output Total 800 Balance -233 Weight 53 kg General appearance: PRESENT: no acute distress, thin, well-developed Head exam: PRESENT: atraumatic, normocephalic Eye exam: PRESENT: conjunctiva pink, EOMI. ABSENT: scleral icterus Ear exam: PRESENT: normal external ear exam Mouth exam: PRESENT: moist, tongue midline Neck exam: ABSENT: carotid bruit, JVD, lymphadenopathy, thyromegaly Respiratory exam: PRESENT: clear to auscultation daija. ABSENT: rales, rhonchi, wheezes Pulses: PRESENT: normal dorsalis pedis pul Vascular exam: PRESENT: normal capillary refill GI/Abdominal exam: PRESENT: normal bowel sounds, soft. ABSENT: distended, guarding, mass, organolmegaly, rebound, tenderness Rectal exam: PRESENT: deferred Extremities exam: PRESENT: full ROM. ABSENT: calf tenderness, clubbing, pedal edema Musculoskeletal exam: PRESENT: full ROM, other - Pt is Neurological exam: PRESENT: alert, awake, oriented to person. ABSENT: motor sensory deficit Psychiatric exam: PRESENT: agitated. ABSENT: homicidal ideation, suicidal ideation Skin exam: PRESENT: dry, intact, warm. ABSENT: cyanosis, rash Results Laboratory Results: 09/19/17 06:50 09/19/17 06:50 09/19/17 09/19/17 06:50 06:50 WBC 24.0 H RBC 3.41 L Hgb 8.3 L Hct 26.8 L MCV 78 L MCH 24.4 L MCHC 31.1 L RDW 19.0 H Plt Count 663 H Seg Neutrophils % Not Reportable Lymphocytes % Not Reportable Monocytes % Not Reportable Eosinophils % Not Reportable Basophils % Not Reportable Absolute Neutrophils Not Reportable Absolute Lymphocytes Not Reportable Absolute Monocytes Not Reportable Absolute Eosinophils Not Reportable Absolute Basophils Not Reportable Sodium 146.7 H Potassium 2.6 L* Chloride 102 Carbon Dioxide 35 H Anion Gap 10 BUN 10 Creatinine 1.18 Est GFR ( Amer) > 60 Est GFR (Non-Af Amer) > 60 Glucose 104 Calcium 9.6 Magnesium 1.9 Total Bilirubin 0.3 AST 10 L ALT 15 L Alkaline Phosphatase 116 Total Protein 6.1 L Albumin 2.4 L 09/14/17 06:45 Blood Blood Culture - Final NO GROWTH IN 5 DAYS 09/14/17 06:12 Blood Blood Culture - Final NO GROWTH IN 5 DAYS 08/24/17 08/24/17 08/25/17 18:00 22:00 05:15 Creatine Kinase 140 117 82 CK-MB (CK-2) Troponin I NT-Pro-B Natriuret Pep 09/02/17 09/02/17 09/03/17 17:45 17:45 05:35 Creatine Kinase 50 L CK-MB (CK-2) 0.40 Troponin I 0.027 NT-Pro-B Natriuret Pep 4690 H Impressions: Thoracic Spine CT 08/26/17 08:00 IMPRESSION: No acute findings in the thoracic spine. Abdomen/Pelvis CT 08/27/17 00:00 IMPRESSION: 1. Extensive basilar pulmonary changes suggesting pneumonia. 2. No evidence of intra- abdominal or intrapelvic abscess or drainable collection. Postoperative changes as above without evidence of mechanical bowel obstruction. 3. Marked irregular soft tissue loss in the proximal left posterior and medial thigh, incompletely assessed. No suggestion of regional drainable collection as imaged. Chest X-Ray 09/13/17 00:00 IMPRESSION: NO ACUTE RADIOGRAPHIC FINDING IN THE CHEST. Assessment & Plan - Diagnosis (1) Abscess or cellulitis of perineum Is this a current diagnosis for this admission?: Yes Plan: Repeat blood cultures demonstrated no growth. Urine has demonstrated no growth. Patient's C. difficile was negative. Will repeat blood culture. (2) Crohns disease Qualifiers: Gastrointestinal tract location: unspecified location Is this a current diagnosis for this admission?: Yes Plan: Will Consult GI for evaluation. (3) Diabetes mellitus Qualifiers: Diabetes mellitus type: type 1 Diabetes mellitus complication status: with unspecified complications Qualified Code(s): E10.8 - Type 1 diabetes mellitus with unspecified complications Is this a current diagnosis for this admission?: Yes Plan: Continue current treatment plan. (4) Pneumonia Qualifiers: Laterality: bilateral Lung location: unspecified part of lung Is this a current diagnosis for this admission?: Yes Plan: Resolved (5) Leukocytosis Qualifiers: Leukocytosis type: bandemia Qualified Code(s): D72.825 - Bandemia Is this a current diagnosis for this admission?: Yes Plan: Secondary to enterococcus bacteremia and wound infection: Oncology evaluate and consulted GI. (6) Hypotension Qualifiers: Hypotension type: other hypotension type Qualified Code(s): I95.89 - Other hypotension Is this a current diagnosis for this admission?: Yes Plan: Will continue on NS at 75cc/hours. (7) Diabetic keto-acidosis Qualifiers: Diabetes mellitus type: type 1 Diabetes mellitus complication detail: with coma Qualified Code(s): E10.11 - Type 1 diabetes mellitus with ketoacidosis with coma Is this a current diagnosis for this admission?: Yes Plan: Resolved. (8) Severe protein-calorie malnutrition Is this a current diagnosis for this admission?: Yes Plan: Will encourage PO intake and continue supplemental drink. (9) Hidradenitis suppurativa of anus Is this a current diagnosis for this admission?: Yes Plan: Patient had purulence and drainage coming from wounds. Have requested that surgery come back and evaluate patient's wounds to see if other debridement is required. (10) Hypoxic brain injury Is this a current diagnosis for this admission?: Yes Plan: Decrease Risperdal to 0.5 mg p.o. twice daily (11) Diabetic neuropathy Qualifiers: Diabetes mellitus type: type 1 Diabetes mellitus complication detail: diabetic polyneuropathy Qualified Code(s): E10.42 - Type 1 diabetes mellitus with diabetic polyneuropathy Is this a current diagnosis for this admission?: Yes Plan: Supportive of care. (12) Chronic pain Qualifiers: Chronic pain type: chronic pain syndrome Qualified Code(s): G89.4 - Chronic pain syndrome Is this a current diagnosis for this admission?: Yes Plan: Will continue pain medications. (13) Opioid dependence in controlled environment Is this a current diagnosis for this admission?: Yes Plan: Will continue pain medication. (14) Hypercalcemia due to immobilization Is this a current diagnosis for this admission?: Yes Plan: Resolved (15) Hypomagnesemia Is this a current diagnosis for this admission?: Yes Plan: Resolved (16) Hypokalemia Is this a current diagnosis for this admission?: Yes Plan: Will give Potassium replacement and check BMP in a.m. (17) Hematuria Is this a current diagnosis for this admission?: Yes Plan: Secondary to [place]ry trauma: Supportive care. (18) Hypernatremia Is this a current diagnosis for this admission?: Yes Plan: Will change IVFs to D51/2 NS at 75 cc/hour - Time Time Spent with patient: 15-24 minutes
[2017-09-19] MEDS: INSULIN LISPRO 100 UNIT/ML 3 ML VIAL SUBCUT PRN (12:55)
[2017-09-19 19:11] LABS: APPEARANCE,URINE CLOUDY; BILIRUBIN,URINE NEGATIVE (NEGATIVE); COLOR,URINE YELLOW; GLUCOSE, URINE NEGATIVE (NEGATIVE); KETONES,URINE NEGATIVE (NEGATIVE); LEUKOCYTE ESTERASE,URINE MODERATE (NEGATIVE); NITRITE,URINE NEGATIVE (NEGATIVE); PROTEIN,URINE 100 mg/dL (NEGATIVE); URINE SPECIFIC GRAVITY 1.013; UROBILINOGEN,URINE NEGATIVE mg/dL (<2.0)
[2017-09-19] MEDS: DEXTROSE 5%-1/2 NORMAL SALINE 1,000 ML IV PRN (20:11)
[2017-09-19] MEDS: RISPERIDONE 0.5 MG TAB.RAPDIS PO SCH (21:36)
[2017-09-19] MEDS: TAMSULOSIN HCL 0.4 MG CAP.SR.24H PO SCH (21:36)
[2017-09-20] MEDS: DILTIAZEM HCL 60 MG TABLET PO SCH ×3 (04:19→17:18)
--- NOTE | 2017-09-20 09:02 | PDOC PROGRESS REPORT ---
Subjective Progress Note for:: 09/20/17 Subjective:: Nursing states that patient has been easier to redirect. Patient does have mittens in place due to patient trying to remove Landry. Nursing states that pt' s wounds on buttock would benefit from Santyl. Nursing states that she will speak to Surgery about wounds as well. Pt states that he is not having pain. Nursing states that pt has been hallucinating more. Reason For Visit: DKA, SEPSIS Physical Exam Vital Signs: Temp Pulse Resp BP Pulse Ox 98.3 F 108 H 15 128/66 H 95 09/20/17 07:49 09/20/17 07:49 09/20/17 07:49 09/20/17 07:49 09/20/17 07:49 Intake & Output 09/19/17 09/20/17 09/21/17 06:59 06:59 06:59 Intake Total 567 1106 Output Total 800 1900 Balance -233 -794 Weight 53 kg General appearance: PRESENT: disheveled, thin, well-developed Head exam: PRESENT: atraumatic, normocephalic Eye exam: PRESENT: conjunctiva pink, EOMI Ear exam: PRESENT: normal external ear exam Mouth exam: PRESENT: moist, tongue midline Neck exam: ABSENT: carotid bruit, JVD, lymphadenopathy, thyromegaly Respiratory exam: PRESENT: clear to auscultation daija. ABSENT: rales, rhonchi, wheezes Cardiovascular exam: PRESENT: RRR. ABSENT: diastolic murmur, rubs, systolic murmur Pulses: PRESENT: normal dorsalis pedis pul Vascular exam: PRESENT: normal capillary refill GI/Abdominal exam: PRESENT: normal bowel sounds, soft, other - Colostomy bag in place.. ABSENT: distended, guarding, mass, organolmegaly, rebound, tenderness Rectal exam: PRESENT: deferred Extremities exam: PRESENT: full ROM, other - Muscle wasting of upper and lower extremities. ABSENT: calf tenderness, clubbing, pedal edema Musculoskeletal exam: PRESENT: other - Muscle wasting of upper and lower extremities Neurological exam: PRESENT: alert, awake, oriented to person Psychiatric exam: PRESENT: appropriate affect, normal mood. ABSENT: homicidal ideation, suicidal ideation Skin exam: PRESENT: dry, intact, warm. ABSENT: cyanosis, rash Results Laboratory Results: 09/19/17 06:50 09/19/17 06:50 09/19/17 09/19/17 18:00 18:00 Urine Color YELLOW Urine Appearance CLOUDY Urine pH 6.0 Ur Specific [place] 1.013 Urine Protein 100 H Urine Glucose (UA) NEGATIVE Urine Ketones NEGATIVE Urine Blood LARGE H Urine Nitrite NEGATIVE Ur Leukocyte Esterase MODERATE H Urine WBC (Auto) 65 Urine RBC (Auto) >182 Stool Occult Blood NEGATIVE 09/15/17 08:05 Blood Blood Culture - Final NO GROWTH IN 5 DAYS 09/14/17 06:45 Blood Blood Culture - Final NO GROWTH IN 5 DAYS 09/14/17 06:12 Blood Blood Culture - Final NO GROWTH IN 5 DAYS 08/24/17 08/24/17 08/25/17 18:00 22:00 05:15 Creatine Kinase 140 117 82 CK-MB (CK-2) Troponin I NT-Pro-B Natriuret Pep 09/02/17 09/02/17 09/03/17 17:45 17:45 05:35 Creatine Kinase 50 L CK-MB (CK-2) 0.40 Troponin I 0.027 NT-Pro-B Natriuret Pep 4690 H Impressions: Thoracic Spine CT 08/26/17 08:00 IMPRESSION: No acute findings in the thoracic spine. Abdomen/Pelvis CT 08/27/17 00:00 IMPRESSION: 1. Extensive basilar pulmonary changes suggesting pneumonia. 2. No evidence of intra- abdominal or intrapelvic abscess or drainable collection. Postoperative changes as above without evidence of mechanical bowel obstruction. 3. Marked irregular soft tissue loss in the proximal left posterior and medial thigh, incompletely assessed. No suggestion of regional drainable collection as imaged. Chest X-Ray 09/13/17 00:00 IMPRESSION: NO ACUTE RADIOGRAPHIC FINDING IN THE CHEST. Assessment & Plan - Diagnosis (1) Abscess or cellulitis of perineum Is this a current diagnosis for this admission?: Yes Plan: Repeat blood cultures demonstrated no growth. Urine has demonstrated no growth. Patient's C. difficile was negative. Repeat blood cultures have demonstrated no growth. Will apply Santyl to sacral wounds. Surgery to evaluate coccyx wound and sacral wound (2) Crohns disease Qualifiers: Gastrointestinal tract location: unspecified location Is this a current diagnosis for this admission?: Yes Plan: Will Consult GI for evaluation. (3) Diabetes mellitus Qualifiers: Diabetes mellitus type: type 1 Diabetes mellitus complication status: with unspecified complications Qualified Code(s): E10.8 - Type 1 diabetes mellitus with unspecified complications Is this a current diagnosis for this admission?: Yes Plan: Continue current treatment plan. (4) Pneumonia Qualifiers: Laterality: bilateral Lung location: unspecified part of lung Is this a current diagnosis for this admission?: Yes Plan: Resolved (5) Leukocytosis Qualifiers: Leukocytosis type: bandemia Qualified Code(s): D72.825 - Bandemia Is this a current diagnosis for this admission?: Yes Plan: Secondary to enterococcus bacteremia and wound infection: Oncology evaluate and consulted GI. Will check CBC in a.m. (6) Hypotension Qualifiers: Hypotension type: other hypotension type Qualified Code(s): I95.89 - Other hypotension Is this a current diagnosis for this admission?: Yes Plan: Will continue on NS at 75cc/hours. Resolved. (7) Diabetic keto-acidosis Qualifiers: Diabetes mellitus type: type 1 Diabetes mellitus complication detail: with coma Qualified Code(s): E10.11 - Type 1 diabetes mellitus with ketoacidosis with coma Is this a current diagnosis for this admission?: Yes Plan: Resolved. (8) Severe protein-calorie malnutrition Is this a current diagnosis for this admission?: Yes Plan: Will encourage PO intake and continue supplemental drink. (9) Hidradenitis suppurativa of anus Is this a current diagnosis for this admission?: Yes Plan: Patient had purulence and drainage coming from wounds. Surgery evaluating wounds. Will have Santyl written for twice daily. (10) Hypoxic brain injury Is this a current diagnosis for this admission?: Yes Plan: Decrease Risperdal to 0.5 mg p.o. twice daily. Pt is conversing more however confused at times. Patient is also been more agitated to requiring restraints to help patient keep Landry in place. (11) Diabetic neuropathy Qualifiers: Diabetes mellitus type: type 1 Diabetes mellitus complication detail: diabetic polyneuropathy Qualified Code(s): E10.42 - Type 1 diabetes mellitus with diabetic polyneuropathy Is this a current diagnosis for this admission?: Yes Plan: Supportive of care. (12) Chronic pain Qualifiers: Chronic pain type: chronic pain syndrome Qualified Code(s): G89.4 - Chronic pain syndrome Is this a current diagnosis for this admission?: Yes Plan: Will continue pain medications. (13) Opioid dependence in controlled environment Is this a current diagnosis for this admission?: Yes Plan: Will continue pain medication. (14) Hypercalcemia due to immobilization Is this a current diagnosis for this admission?: Yes Plan: Resolved (15) Hypomagnesemia Is this a current diagnosis for this admission?: Yes Plan: Resolved (16) Hypokalemia Is this a current diagnosis for this admission?: Yes Plan: BMP pending this morning. (17) Hematuria Is this a current diagnosis for this admission?: Yes Plan: Secondary to [place] trauma: Resolved. Patient with soft restraints in place. (18) Hypernatremia Is this a current diagnosis for this admission?: Yes Plan: Will change IVFs to D51/2 NS at 75 cc/hour. BMP pending this morning. Patient' s fluids were changed yesterday. (19) DVT prophylaxis Is this a current diagnosis for this admission?: Yes Plan: Lovenox - Time Time Spent with patient: 25-34 minutes
--- NOTE | 2017-09-20 09:40 | PDOC CONSULTATION ---
Consultation Consult Date: 09/20/17 Attending physician:: EDUARD ABREU Consult reason:: Crohn's disease ?? History of Present Illness Admission Date/PCP: 08/24/17 16:51 DELROY CROUCH DO History of Present Illness: I have been asked to see this patient was Crohn's disease patient currently admitted for sepsis and is currently having changes in his mental status has mittens on patient noted to have had several appts scheduled with Dr Potter here at [place] no procedures ever done unless done at Dr Potter's office patient currently has an elevated WBC patient also has ongoing issues that is being managed patient can have CRP and sed rate done CT scan does not indicate presence of any fistula, no small bowel obstruction . Patient has has supraumbilical colostomy, however is heme negative asked to comment about Crohn's will need to get any old records to see how this is being managed patient currently has infection and so should not be on any biological therapy would also avoid steroids patient has multiple sites of infection. at best a 5ASA medication patient not be to provide any history at this point Past Medical History Cardiac Medical History: Reports: Myocardial Infarction - NOVEMBER 2014, Hypertension Denies: Coronary Artery Disease Pulmonary Medical History: Reports: Asthma, Pneumonia Denies: Bronchitis, Chronic Obstructive Pulmonary Disease (COPD) Neurological Medical History: Reports: Seizures Endocrine Medical History: Reports: Diabetes Mellitus Type 2 GI Medical History: Reports: Crohn's Disease Musculoskeltal Medical History: Reports: Arthritis Skin Medical History: Reports: Other - RECURRENT CELLULITIS & ABSCESS FORMATION IN PERINEAL, GENITAL, AND GLUTEAL Psychiatric Medical History: Reports: Depression Hematology: Reports: Anemia Past Surgical History Past Surgical History: Reports: Colostomy Social History Lives with: Alone Smoking Status: Unknown if Ever Smoked Frequency of Alcohol Use: None Hx Recreational Drug Use: No Hx Prescription Drug Abuse: No - Advance Directive Resuscitation Status: Full Code Family History Family History: Other - Crohn's-sister Parental Family History Reviewed: Yes Children Family History Reviewed: Unknown Sibling(s) Family History Reviewed.: Unknown Medication/Allergy Home Medications: Duloxetine HCl [Cymbalta] 60 mg PO Q12 08/24/17 Gabapentin [Neurontin 300 mg Capsule] 600 mg PO Q8 08/24/17 Insulin Aspart [Novolog Flexpen] 25 unit SQ Q12 08/24/17 Metformin HCl [Glucophage] 1,000 mg PO BIDACBS 08/24/17 Morphine Sulfate [Morphine Sulfate ER] 100 mg PO Q12 08/24/17 Naloxone HCl [Narcan] 1 spray NS ASDIR PRN 08/24/17 Ondansetron HCl [Zofran 8 mg Tablet] 8 mg PO Q8HP PRN 08/24/17 Oxycodone HCl [Oxy-Ir 5 mg Tablet] 20 mg PO Q4HP PRN 08/24/17 Prednisone [Deltasone 10 mg Tablet] 10 mg PO Q12 08/24/17 Allergies/Adverse Reactions: atropine sulfate [From Lomotil] Allergy (Verified 02/21/17 13:49) diphenoxylate HCl [From Lomotil] Allergy (Verified 02/21/17 13:49) erythromycin base [Erythromycin Base] Allergy (Verified 02/21/17 13:49) paroxetine HCl [From Paxil] Allergy (Verified 02/21/17 13:49) sulfamethoxazole [From Bactrim] Allergy (Verified 02/21/17 13:49) trimethoprim [From Bactrim] Allergy (Verified 02/21/17 13:49) Review of Systems Constitutional: ABSENT: night sweats, weight loss Eyes: ABSENT: visual disturbances Nose, Mouth, and Throat: ABSENT: mouth pain Cardiovascular: ABSENT: chest pain, orthropnea Respiratory: ABSENT: dyspnea, hemoptysis Gastrointestinal: ABSENT: hematemesis, melena, nausea, vomiting Genitourinary: ABSENT: dysuria, hematuria Integumentary: ABSENT: lesions Neurological: ABSENT: syncope, tingling, vertigo Endocrine: ABSENT: polydipsia, polyphagia, polyuria Hematologic/Lymphatic: ABSENT: easy bruising Physical Exam Vital Signs: Temp Pulse Resp BP Pulse Ox 98.3 F 108 H 15 128/66 H 95 09/20/17 07:49 09/20/17 07:49 09/20/17 07:49 09/20/17 07:49 09/20/17 07:49 Intake & Output 09/19/17 09/20/17 09/21/17 06:59 06:59 06:59 Intake Total 567 1106 Output Total 800 1900 Balance -233 -794 Weight 53 kg General appearance: PRESENT: mild distress Head exam: PRESENT: atraumatic, normocephalic Eye exam: PRESENT: EOMI, PERRLA. ABSENT: scleral icterus Mouth exam: PRESENT: moist Throat exam: ABSENT: tonsillar exudate Neck exam: ABSENT: meningismus, tenderness, thyromegaly Respiratory exam: PRESENT: symmetrical, unlabored. ABSENT: tachypnea, wheezes Cardiovascular exam: PRESENT: RRR, +S1, +S2 GI/Abdominal exam: PRESENT: soft. ABSENT: rebound, rigid, tenderness Extremities exam: ABSENT: joint swelling Musculoskeletal exam: PRESENT: full ROM Neurological exam: PRESENT: altered, CN II-XII grossly intact Focused psych exam: ABSENT: restlessness Skin exam: PRESENT: normal color. ABSENT: mottled, urticaria, vesicles Results Laboratory Results: 09/19/17 06:50 09/19/17 06:50 09/19/17 09/19/17 18:00 18:00 Urine Color YELLOW Urine Appearance CLOUDY Urine pH 6.0 Ur Specific [place] 1.013 Urine Protein 100 H Urine Glucose (UA) NEGATIVE Urine Ketones NEGATIVE Urine Blood LARGE H Urine Nitrite NEGATIVE Ur Leukocyte Esterase MODERATE H Urine WBC (Auto) 65 Urine RBC (Auto) >182 Stool Occult Blood NEGATIVE 09/15/17 09:15 Blood Blood Culture - Final NO GROWTH IN 5 DAYS 09/15/17 08:05 Blood Blood Culture - Final NO GROWTH IN 5 DAYS 09/14/17 06:45 Blood Blood Culture - Final NO GROWTH IN 5 DAYS 09/14/17 06:12 Blood Blood Culture - Final NO GROWTH IN 5 DAYS 08/24/17 08/24/17 08/25/17 18:00 22:00 05:15 Creatine Kinase 140 117 82 CK-MB (CK-2) Troponin I NT-Pro-B Natriuret Pep 09/02/17 09/02/17 09/03/17 17:45 17:45 05:35 Creatine Kinase 50 L CK-MB (CK-2) 0.40 Troponin I 0.027 NT-Pro-B Natriuret Pep 4690 H Impressions: Thoracic Spine CT 08/26/17 08:00 IMPRESSION: No acute findings in the thoracic spine. Abdomen/Pelvis CT 08/27/17 00:00 IMPRESSION: 1. Extensive basilar pulmonary changes suggesting pneumonia. 2. No evidence of intra- abdominal or intrapelvic abscess or drainable collection. Postoperative changes as above without evidence of mechanical bowel obstruction. 3. Marked irregular soft tissue loss in the proximal left posterior and medial thigh, incompletely assessed. No suggestion of regional drainable collection as imaged. Chest X-Ray 09/13/17 00:00 IMPRESSION: NO ACUTE RADIOGRAPHIC FINDING IN THE CHEST. Assessment & Plan - Diagnosis (1) Crohns disease Qualifiers: Gastrointestinal tract location: unspecified location Is this a current diagnosis for this admission?: Yes Plan: unknown what stage of work up would have CRP and sed rate drawn to see if any activity patient would likely need Promeths Crohn's prognostication and monitor testing to see if any active disease patient has a diverting colostomy and so would be small bowel disease if any no fistula is noted heme negative currently has infection and so not a candidate for steroids or biological therapy at best 5ASA compounds if patient can take oral medications once acute problems resolved, then can follow up as outpatient GI - Time Time Spent: 50 to 70 Minutes
[2017-09-20] MEDS: DEXTROSE 5%-1/2 NORMAL SALINE 1,000 ML IV PRN (09:53)
[2017-09-20] MEDS: FINASTERIDE 5 MG TABLET PO SCH (10:06)
[2017-09-20] MEDS: DULOXETINE HCL 30 MG CAPSULE.DR PO SCH ×2 (10:06→23:32)
[2017-09-20] MEDS: MULTIVITAMINS W-IRON TABLET, CHEWABLE PO SCH (10:06)
[2017-09-20] MEDS: FAMOTIDINE 20 MG TABLET PO SCH ×2 (10:06→23:32)
[2017-09-20] MEDS: RISPERIDONE 0.5 MG TAB.RAPDIS PO SCH ×2 (10:06→23:32)
[2017-09-20] MEDS: NYSTATIN 500000 UNIT/5 ML UDCUP PO SCH ×4 (10:06→23:32)
[2017-09-20] MEDS: ENOXAPARIN SODIUM INJ 40 MG/0.4 ML DISP.SYRIN SUBCUT SCH (10:06)
[2017-09-20] MEDS: MORPHINE SULFATE SR 100 MG TABLET PO SCH ×2 (10:07→23:31)
[2017-09-20 10:51] LABS: ALANINE AMINOTRANSFERASE 10 U/L (21-72); ALKALINE PHOSPHATASE 141 U/L (38-126); ANION GAP 12 (5-19); ASPARTATE AMINO TRANSFERASE 12 U/L (17-59); BILIRUBIN,DIRECT 0.2 mg/dL (0.0-0.4); BILIRUBIN,TOTAL 0.3 mg/dL (0.2-1.3); BLOOD UREA NITROGEN 12 mg/dL (7-20); CALCIUM 9.9 mg/dL (8.4-10.2); CARBON DIOXIDE 32 mmol/L (22-30); CHLORIDE 98 mmol/L (98-107); GLUCOSE 141 mg/dL (75-110); POTASSIUM 3.2 mmol/L (3.6-5.0); SODIUM 142.2 mmol/L (137-145); TOTAL PROTEIN 6.9 g/dL (6.3-8.2)
[2017-09-20] MEDS: COLLAGENASE CLOSTRIDIUM HIST. OINT 30 GM TOP PRN ×2 (12:24→21:07)
[2017-09-20] MEDS: POTASSIUM CHLORIDE 20 MEQ/50 ML RTU IV SCH ×4 (13:12→20:42)
[2017-09-20] MEDS: INSULIN LISPRO 100 UNIT/ML 3 ML VIAL SUBCUT PRN (13:48)
[2017-09-20] MEDS: TAMSULOSIN HCL 0.4 MG CAP.SR.24H PO SCH (23:32)
[2017-09-21] MEDS: DILTIAZEM HCL 60 MG TABLET PO SCH ×3 (03:08→18:45)
[2017-09-21 07:34] LABS: HEMATOCRIT 28.1 % (37.9-51.0); HEMOGLOBIN 8.5 g/dL (13.5-17.0); MEAN CORPUSCULAR HEMOGLOBIN 23.6 pg (27.0-33.4); MEAN CORPUSCULAR HGB CONC 30.3 g/dL (32.0-36.0); MEAN CORPUSCULAR VOLUME 78 fl (80-97); PLATELET COUNT 531 10^3/uL (150-450); RED BLOOD COUNT 3.61 10^6/uL (4.35-5.55); RED CELL DISTRIBUTION WIDTH 19.1 % (11.5-14.0); WHITE BLOOD COUNT 25.5 10^3/uL (4.0-10.5)
[2017-09-21 07:40] LABS: ALANINE AMINOTRANSFERASE 20 U/L (21-72); ALBUMIN 2.6 g/dL (3.5-5.0); ALKALINE PHOSPHATASE 123 U/L (38-126); ANION GAP 8 (5-19); ASPARTATE AMINO TRANSFERASE 11 U/L (17-59); BILIRUBIN,DIRECT 0.2 mg/dL (0.0-0.4); BILIRUBIN,TOTAL 0.2 mg/dL (0.2-1.3); BLOOD UREA NITROGEN 15 mg/dL (7-20); CALCIUM 9.3 mg/dL (8.4-10.2); CARBON DIOXIDE 35 mmol/L (22-30); CHLORIDE 103 mmol/L (98-107); GLUCOSE 131 mg/dL (75-110); SODIUM 145.6 mmol/L (137-145); TOTAL PROTEIN 6.7 g/dL (6.3-8.2)
[2017-09-21 07:47] LABS: POTASSIUM 2.4 mmol/L (3.6-5.0)
[2017-09-21] MEDS: POTASSI CL 20 MEQ/50 ML RIDER 20 MEQ/50 ML RTUPB IV SCH ×2 (08:48→11:10)
[2017-09-21 09:08] LABS: APPEARANCE,URINE CLEAR; BILIRUBIN,URINE NEGATIVE (NEGATIVE); COLOR,URINE STRAW; GLUCOSE, URINE NEGATIVE (NEGATIVE); KETONES,URINE NEGATIVE (NEGATIVE); LEUKOCYTE ESTERASE,URINE TRACE (NEGATIVE); NITRITE,URINE NEGATIVE (NEGATIVE); PROTEIN,URINE NEGATIVE (NEGATIVE); URINE SPECIFIC GRAVITY 1.004; UROBILINOGEN,URINE NEGATIVE mg/dL (<2.0)
[2017-09-21] MEDS: NYSTATIN 500000 UNIT/5 ML UDCUP PO SCH ×4 (09:39→22:56)
[2017-09-21] MEDS: MORPHINE SULFATE SR 100 MG TABLET PO SCH ×2 (09:39→22:55)
[2017-09-21] MEDS: MULTIVITAMINS W-IRON TABLET, CHEWABLE PO SCH (09:40)
[2017-09-21] MEDS: RISPERIDONE 0.5 MG TAB.RAPDIS PO SCH ×2 (09:40→22:56)
[2017-09-21] MEDS: FINASTERIDE 5 MG TABLET PO SCH (09:40)
[2017-09-21] MEDS: ENOXAPARIN SODIUM INJ 40 MG/0.4 ML DISP.SYRIN SUBCUT SCH (09:40)
[2017-09-21] MEDS: FAMOTIDINE 20 MG TABLET PO SCH ×2 (09:40→22:55)
[2017-09-21] MEDS: COLLAGENASE CLOSTRIDIUM HIST. OINT 30 GM TOP PRN ×2 (09:41→22:57)
[2017-09-21] MEDS: DULOXETINE HCL 30 MG CAPSULE.DR PO SCH ×2 (09:42→22:55)
[2017-09-21] MEDS: INSULIN LISPRO 100 UNIT/ML 3 ML VIAL SUBCUT PRN (13:08)
[2017-09-21] MEDS: OXYCODONE HCL IR 5 MG TABLET PO PRN ×2 (13:39→21:14)
[2017-09-21] MEDS: DEXTROSE 5%-1/2 NORMAL SALINE 1,000 ML IV PRN (14:03)
[2017-09-21] MEDS: POTASSIUM CHLORIDE 20 MEQ/50 ML RTU IV SCH ×2 (18:45→21:15)
[2017-09-21] MEDS: ONDANSETRON 4 MG TAB.RAPDIS PO PRN (18:45)
[2017-09-21] MEDS ORDERED: VANCOMYCIN HCL INJ 1000 MG VIAL IV SCH (19:45)
--- NOTE | 2017-09-21 19:50 | PDOC PROGRESS REPORT ---
Subjective Progress Note for:: 09/21/17 Subjective:: Patient was alert and oriented today. Able to answer questions and follow commands. He remains in soft wrist restraints with muffs on his hands. He does have periods of agitation at night there is concerned that the patient may dislodge his IV access by which he is currently receiving medications and fluid support. Patient does have an with leukocytosis that is worsening this morning. Did have positive blood culture 1 out of 2 on 09/19/2017 for gram- positive cocci. Will restart patient's vancomycin. Monitor for improvement. GI did evaluate this patient for possible Crohn's disease. Agree with the recommendation of avoiding Biologics and immunosuppressive medications. Reason For Visit: DKA, SEPSIS Physical Exam Vital Signs: Temp Pulse Resp BP Pulse Ox 97.5 F 92 16 126/76 H 91 L 09/21/17 16:17 09/21/17 16:17 09/21/17 16:17 09/21/17 16:17 09/21/17 16:17 Intake & Output 09/20/17 09/21/17 09/22/17 06:59 06:59 06:59 Intake Total 1106 4093 587 Output Total 1900 3900 2050 Balance -794 193 -1463 Weight 54.2 kg General appearance: PRESENT: no acute distress, cooperative Head exam: PRESENT: atraumatic, normocephalic Eye exam: PRESENT: EOMI, PERRLA Ear exam: PRESENT: normal external ear exam. ABSENT: bleeding, drainage Mouth exam: PRESENT: moist, neck supple, tongue midline Respiratory exam: ABSENT: accessory muscle use, chest wall tenderness, crackles , rales, rhonchi, wheezes Cardiovascular exam: PRESENT: RRR, +S1, +S2 Pulses: PRESENT: normal radial pulses, +2 pedal pulses bilateral GI/Abdominal exam: ABSENT: ascites, diminished bowel sounds, distended, mass Extremities exam: ABSENT: calf tenderness, joint swelling, pedal edema Musculoskeletal exam: PRESENT: full ROM. ABSENT: tenderness Neurological exam: PRESENT: oriented to person, oriented to place, oriented to time, CN II-XII grossly intact Psychiatric exam: PRESENT: flat affect. ABSENT: agitated, anxious, manic Focused psych exam: ABSENT: flight of ideas, internal stimuli, pressured speech , psychomotor agitation Skin exam: ABSENT: abrasion, cyanosis, pallor Results Laboratory Results: 09/21/17 07:13 09/21/17 15:50 09/21/17 09/21/17 09/21/17 07:13 07:13 08:35 WBC 25.5 H RBC 3.61 L Hgb 8.5 L Hct 28.1 L MCV 78 L MCH 23.6 L MCHC 30.3 L RDW 19.1 H Plt Count 531 H Sodium 145.6 H Potassium 2.4 L* Chloride 103 Carbon Dioxide 35 H Anion Gap 8 BUN 15 Creatinine 1.03 Est GFR ( Amer) > 60 Est GFR (Non-Af Amer) > 60 Glucose 131 H Calcium 9.3 Magnesium 1.7 Total Bilirubin 0.2 AST 11 L ALT 20 L Alkaline Phosphatase 123 Total Protein 6.7 Albumin 2.6 L Urine Color STRAW Urine Appearance CLEAR Urine pH 7.0 Ur Specific [place] 1.004 Urine Protein NEGATIVE Urine Glucose (UA) NEGATIVE Urine Ketones NEGATIVE Urine Blood NEGATIVE Urine Nitrite NEGATIVE Ur Leukocyte Esterase TRACE H Urine WBC (Auto) 6 Urine RBC (Auto) 1 Stool Occult Blood 09/21/17 09/21/17 08:35 15:50 WBC RBC Hgb Hct MCV MCH MCHC RDW Plt Count Sodium Potassium 2.8 L* Chloride Carbon Dioxide Anion Gap BUN Creatinine Est GFR ( Amer) Est GFR (Non-Af Amer) Glucose Calcium Magnesium Total Bilirubin AST ALT Alkaline Phosphatase Total Protein Albumin Urine Color Urine Appearance Urine pH Ur Specific [place] Urine Protein Urine Glucose (UA) Urine Ketones Urine Blood Urine Nitrite Ur Leukocyte Esterase Urine WBC (Auto) Urine RBC (Auto) Stool Occult Blood NEGATIVE 08/24/17 08/24/17 08/25/17 18:00 22:00 05:15 Creatine Kinase 140 117 82 CK-MB (CK-2) Troponin I NT-Pro-B Natriuret Pep 09/02/17 09/02/17 09/03/17 17:45 17:45 05:35 Creatine Kinase 50 L CK-MB (CK-2) 0.40 Troponin I 0.027 NT-Pro-B Natriuret Pep 4690 H Impressions: Thoracic Spine CT 08/26/17 08:00 IMPRESSION: No acute findings in the thoracic spine. Abdomen/Pelvis CT 08/27/17 00:00 IMPRESSION: 1. Extensive basilar pulmonary changes suggesting pneumonia. 2. No evidence of intra- abdominal or intrapelvic abscess or drainable collection. Postoperative changes as above without evidence of mechanical bowel obstruction. 3. Marked irregular soft tissue loss in the proximal left posterior and medial thigh, incompletely assessed. No suggestion of regional drainable collection as imaged. Chest X-Ray 09/13/17 00:00 IMPRESSION: NO ACUTE RADIOGRAPHIC FINDING IN THE CHEST. Assessment & Plan - Plan Summary Plan Summary: 1. Abscess or cellulitis of the perineum 1 of 2 blood cultures positive for gram-positive growth. Recent blood culture positive with enterococcal growth, sensitive to vancomycin Given patient's significant leukocytosis that is worsening, will restart vancomycin 2. Crohn's disease GI attending did evaluate the patient's possible Crohn's picture. I agree that a immunosuppressive medication at this point would greatly impair his ability to recover. Will check ESR and CRP, but anticipate their elevation secondary to problem #1. 3. Pneumonia. Clear chest x-ray, appears to have resolved. 4. Diabetes mellitus Continue current plan. 5. Leukocytosis Concern for an positive growth on 09/19/2017 and 1 of 2 blood cultures. Restart empiric vancomycin 6. Hepatic ketoacidosis. Resolved 7. Severe protein calorie malnutrition. Encouraged his diet. 8. Hidradenitis supprativa of anus surgery following. 9. Hypoxic Brain Injury periods of aggitation. on Risperdal. 10. Chronic Pain continue pain medications 11. Hypokalemia. giving 40meq of KCl x2 today. 12. Aggitation. soft wrist restraints. 13. Hypernatremia. resolving. received IVF support. 14. Opiod dependence. 15. Hematruia. secondary to araiza trauma, resolved
[2017-09-21] MEDS: TAMSULOSIN HCL 0.4 MG CAP.SR.24H PO SCH (22:55)
[2017-09-22] MEDS: DILTIAZEM HCL 60 MG TABLET PO SCH ×3 (02:45→17:21)
[2017-09-22] MEDS: OXYCODONE HCL IR 5 MG TABLET PO PRN ×2 (06:19→17:23)
[2017-09-22 09:25] LABS: HEMATOCRIT 27.6 % (37.9-51.0); HEMOGLOBIN 8.4 g/dL (13.5-17.0); MEAN CORPUSCULAR HEMOGLOBIN 24.1 pg (27.0-33.4); MEAN CORPUSCULAR HGB CONC 30.6 g/dL (32.0-36.0); MEAN CORPUSCULAR VOLUME 79 fl (80-97); PLATELET COUNT 685 10^3/uL (150-450); RED CELL DISTRIBUTION WIDTH 19.3 % (11.5-14.0); WHITE BLOOD COUNT 29.6 10^3/uL (4.0-10.5)
[2017-09-22 09:39] LABS: ANION GAP 12 (5-19); BLOOD UREA NITROGEN 9 mg/dL (7-20); C-REACTIVE PROTEIN 63.2 mg/L (<10.0); CALCIUM 9.4 mg/dL (8.4-10.2); CARBON DIOXIDE 31 mmol/L (22-30); CHLORIDE 99 mmol/L (98-107); GLUCOSE 135 mg/dL (75-110); PHOSPHORUS 4.7 mg/dL (2.5-4.5); POTASSIUM 3.4 mmol/L (3.6-5.0); SODIUM 141.7 mmol/L (137-145)
[2017-09-22 10:32] LABS: ERYTHROCYTE SEDIMENTATION RATE 113 mm/hr (0-15)
[2017-09-22] MEDS: DULOXETINE HCL 30 MG CAPSULE.DR PO SCH ×2 (11:29→22:25)
[2017-09-22] MEDS: FAMOTIDINE 20 MG TABLET PO SCH ×2 (11:30→22:26)
[2017-09-22] MEDS: FINASTERIDE 5 MG TABLET PO SCH (11:30)
[2017-09-22] MEDS: MORPHINE SULFATE SR 100 MG TABLET PO SCH ×2 (11:30→22:25)
[2017-09-22] MEDS: ENOXAPARIN SODIUM INJ 40 MG/0.4 ML DISP.SYRIN SUBCUT SCH (11:30)
[2017-09-22] MEDS: MULTIVITAMINS W-IRON TABLET, CHEWABLE PO SCH (11:31)
[2017-09-22] MEDS: NYSTATIN 500000 UNIT/5 ML UDCUP PO SCH ×4 (11:31→22:25)
[2017-09-22] MEDS: RISPERIDONE 0.5 MG TAB.RAPDIS PO SCH (11:32)
[2017-09-22] MEDS: COLLAGENASE CLOSTRIDIUM HIST. OINT 30 GM TOP PRN ×2 (11:32→22:31)
[2017-09-22] MEDS: DEXTROSE 5%-1/2 NORMAL SALINE 1,000 ML IV PRN (11:32)
--- NOTE | 2017-09-22 14:58 | Progress Note ---
Provider Note Provider Note: ID Progress Note Contacted by Pharmacy regarding interval blood culture results. One set of blood cultures on 09/19 showed growth of Staph epi in 1 blood culture. The other set of blood cultures on 09/19 has shown no growth to date. The patient has not had a fever. He continues to have a leukocytosis in the 20k range. Impression/Recommendations Coagulase negative Staph (CoNS) pseudobacteremia / contamination of blood cultures with Staph epi. Coagulase negative Staph found as normal skin meño, tend to have low virulence , and are almost always contaminants when found in a single set of blood cultures, particularly in absence of a clinical change in the patient's condition. If there was repeated isolation of the same species of CoNS from blood cultures or isolation of CoNS in conjunction with a compatible clinical syndrome (e.g. fever and a central line or other prosthetic/implanted cardiac or intravascular device) that would raise concern for a true infection, but that does not appear to be the case here. I do not recommend starting antibiotics for this. Vasquez Kunz MD pager [phone]
[2017-09-22] MEDS: INSULIN LISPRO 100 UNIT/ML 3 ML VIAL SUBCUT PRN (17:21)
--- NOTE | 2017-09-22 19:27 | PDOC PROGRESS REPORT ---
Subjective Subjective:: Persistent leukocytosis, in patient with multiple ulcerations. See plan below. Ok to hold antibiotics at present. Unfortunately leukemia/lymphoma panel had to be redrawn today due to the initial draw being lost. I agree an underlying malignancy is a concern here. CT imaging not really showing diffuse lymphadenopathy. Patient is currently receiving good care for his many wounds. Will need d/c planning to assist in locating a SNF with good wound support. Patient without aggitation this AM. Protective muffs were off, and he continues to be in soft restraints. His aggitation has improved. Reason For Visit: DKA, SEPSIS Physical Exam Vital Signs: Temp Pulse Resp BP Pulse Ox 99.0 F 99 17 101/72 98 09/22/17 15:32 09/22/17 15:32 09/22/17 15:32 09/22/17 15:32 09/22/17 15:32 Intake & Output 09/21/17 09/22/17 09/23/17 06:59 06:59 06:59 Intake Total 4093 2972 337 Output Total 3900 3050 1100 Balance 193 -78 -763 Weight 54.2 kg 56.2 kg General appearance: PRESENT: no acute distress, cooperative, thin Head exam: PRESENT: atraumatic, normocephalic Eye exam: PRESENT: EOMI, PERRLA. ABSENT: conjunctiva pink, scleral icterus Ear exam: PRESENT: normal external ear exam Mouth exam: PRESENT: moist, neck supple, tongue midline Neck exam: PRESENT: full ROM. ABSENT: JVD, meningismus, tenderness, thyromegaly Respiratory exam: ABSENT: crackles, rales, rhonchi, wheezes Cardiovascular exam: PRESENT: RRR, +S1, +S2 Pulses: PRESENT: normal radial pulses Vascular exam: PRESENT: normal capillary refill. ABSENT: pallor GI/Abdominal exam: PRESENT: other - ostomy site with ostomy bag. ABSENT: firm, mass Extremities exam: ABSENT: calf tenderness, joint swelling Musculoskeletal exam: PRESENT: full ROM. ABSENT: ambulatory, tenderness Neurological exam: PRESENT: alert, oriented to person, oriented to place, oriented to time Psychiatric exam: ABSENT: agitated, anxious, manic Focused psych exam: ABSENT: catatonic, delusional, internal stimuli Skin exam: PRESENT: other - multiple ulceration on bilateral heels, back, and perineum. ABSENT: dry, erythema, pallor Results Laboratory Results: 09/22/17 08:40 09/22/17 08:40 09/22/17 09/22/17 08:40 08:40 WBC 29.6 H RBC 3.50 L Hgb 8.4 L Hct 27.6 L MCV 79 L MCH 24.1 L MCHC 30.6 L RDW 19.3 H Plt Count 685 H Sodium 141.7 Potassium 3.4 L Chloride 99 Carbon Dioxide 31 H Anion Gap 12 BUN 9 Creatinine 1.00 Est GFR ( Amer) > 60 Est GFR (Non-Af Amer) > 60 Glucose 135 H Calcium 9.4 Phosphorus 4.7 H C-Reactive Protein 63.2 H Albumin 3.0 L 09/19/17 11:20 Blood Blood Culture - Final Staphylococcus Epidermidis 08/24/17 08/24/17 08/25/17 18:00 22:00 05:15 Creatine Kinase 140 117 82 CK-MB (CK-2) Troponin I NT-Pro-B Natriuret Pep 09/02/17 09/02/17 09/03/17 17:45 17:45 05:35 Creatine Kinase 50 L CK-MB (CK-2) 0.40 Troponin I 0.027 NT-Pro-B Natriuret Pep 4690 H Impressions: Thoracic Spine CT 08/26/17 08:00 IMPRESSION: No acute findings in the thoracic spine. Abdomen/Pelvis CT 08/27/17 00:00 IMPRESSION: 1. Extensive basilar pulmonary changes suggesting pneumonia. 2. No evidence of intra- abdominal or intrapelvic abscess or drainable collection. Postoperative changes as above without evidence of mechanical bowel obstruction. 3. Marked irregular soft tissue loss in the proximal left posterior and medial thigh, incompletely assessed. No suggestion of regional drainable collection as imaged. Chest X-Ray 09/13/17 00:00 IMPRESSION: NO ACUTE RADIOGRAPHIC FINDING IN THE CHEST. Assessment & Plan - Plan Summary Plan Summary: 1. Abscess or cellulitis of the perineum 1 of 2 blood cultures positive for coag neg staph Agree after review of his past CBCs that his leukocytosis does appear chronic. no significant lymphadenopathy found on CT imaging. his leukemia/lymphoma panel workup lab was unfortunately reported as lost per lab, and had to be redrawn today. His ongoing infection concern are multiple ulcerations on his back, heels and perineum. Nurse performing wound care 2. Crohn's disease GI attending did evaluate the patient's possible Crohn's picture. I agree that a immunosuppressive medication at this point would greatly impair his ability to recover. Will check ESR and CRP, but anticipate their elevation secondary to problem #1. 3. Pneumonia. Clear chest x-ray, appears to have resolved. 4. Diabetes mellitus Continue current plan. 5. Leukocytosis Concern for an positive growth on 09/19/2017 and 1 of 2 blood cultures. 6. Hepatic ketoacidosis. Resolved 7. Severe protein calorie malnutrition. Encouraged his diet. 8. Hidradenitis supprativa of anus surgery following. 9. Hypoxic Brain Injury periods of aggitation. on Risperdal. 10. Chronic Pain continue pain medications 11. Hypokalemia. replacing 12. Aggitation. soft wrist restraints. change risperdal to seroquel qhs 13. Hypernatremia. resolving. received IVF support. 14. Opiod dependence. 15. Hematruia. secondary to araiza trauma, resolved 16. Disposition. healthcare manager to assist in placing in SNF with good wound support.
[2017-09-22] MEDS: POTASSI CL 20 MEQ/50 ML RIDER 20 MEQ/50 ML RTUPB IV SCH ×2 (20:06→23:30)
[2017-09-22] MEDS: QUETIAPINE FUMARATE 25 MG TABLET PO SCH (22:25)
[2017-09-22] MEDS: TAMSULOSIN HCL 0.4 MG CAP.SR.24H PO SCH (22:31)
[2017-09-22] MEDS ORDERED: POTASSI CL 20 MEQ/50 ML RIDER 20 MEQ/50 ML RTUPB IV ONE (22:40)
[2017-09-23] MEDS: DILTIAZEM HCL 60 MG TABLET PO SCH ×3 (02:50→17:43)
[2017-09-23] MEDS: OXYCODONE HCL IR 5 MG TABLET PO PRN ×2 (03:27→12:40)
[2017-09-23 05:33] LABS: HEMATOCRIT 25.2 % (37.9-51.0); MEAN CORPUSCULAR HEMOGLOBIN 24.3 pg (27.0-33.4); MEAN CORPUSCULAR HGB CONC 31.3 g/dL (32.0-36.0); MEAN CORPUSCULAR VOLUME 78 fl (80-97); PLATELET COUNT 511 10^3/uL (150-450); RED BLOOD COUNT 3.26 10^6/uL (4.35-5.55)
[2017-09-23 06:03] LABS: HEMOGLOBIN 7.9 g/dL (13.5-17.0); WHITE BLOOD COUNT 21.2 10^3/uL (4.0-10.5)
[2017-09-23 07:57] LABS: APPEARANCE,URINE SLIGHTLY-CLOUDY; BILIRUBIN,URINE NEGATIVE (NEGATIVE); COLOR,URINE YELLOW; GLUCOSE, URINE NEGATIVE (NEGATIVE); KETONES,URINE NEGATIVE (NEGATIVE); LEUKOCYTE ESTERASE,URINE MODERATE (NEGATIVE); NITRITE,URINE NEGATIVE (NEGATIVE); PROTEIN,URINE NEGATIVE (NEGATIVE); URINE SPECIFIC GRAVITY 1.004; UROBILINOGEN,URINE NEGATIVE mg/dL (<2.0)
[2017-09-23 08:34] LABS: ALBUMIN 2.3 g/dL (3.5-5.0); ANION GAP 10 (5-19); BLOOD UREA NITROGEN 9 mg/dL (7-20); CALCIUM 8.6 mg/dL (8.4-10.2); CARBON DIOXIDE 30 mmol/L (22-30); CHLORIDE 100 mmol/L (98-107); GLUCOSE 132 mg/dL (75-110); PHOSPHORUS 4.1 mg/dL (2.5-4.5); POTASSIUM 3.1 mmol/L (3.6-5.0); SODIUM 139.5 mmol/L (137-145)
[2017-09-23] MEDS: MORPHINE SULFATE SR 100 MG TABLET PO SCH ×2 (09:44→23:48)
[2017-09-23] MEDS: FAMOTIDINE 20 MG TABLET PO SCH ×2 (09:46→23:48)
[2017-09-23] MEDS: DULOXETINE HCL 30 MG CAPSULE.DR PO SCH ×2 (09:46→23:47)
[2017-09-23] MEDS: FINASTERIDE 5 MG TABLET PO SCH (09:47)
[2017-09-23] MEDS: ENOXAPARIN SODIUM INJ 40 MG/0.4 ML DISP.SYRIN SUBCUT SCH (09:48)
[2017-09-23] MEDS: NYSTATIN 500000 UNIT/5 ML UDCUP PO SCH ×4 (09:48→23:50)
[2017-09-23] MEDS: MULTIVITAMINS W-IRON TABLET, CHEWABLE PO SCH (09:48)
[2017-09-23] MEDS: COLLAGENASE CLOSTRIDIUM HIST. OINT 30 GM TOP PRN (12:41)
--- NOTE | 2017-09-23 20:34 | PDOC PROGRESS REPORT ---
Subjective Progress Note for:: 09/23/17 Subjective:: 51 yo Male with Persistent leukocytosis, originally presented with sepsis, DKA, and multiple ulcerations. Patient has completed appropriate antibiotcs. His aggitation has required recent restraints. His seroquel appears to be helping his aggitation. Patient will need to be 24 hours without restraints for acceptance into his SNF. The digital media planner has validated that he has a SNF bed available at [facility], when he has been 24 hours without restraints. Leukemia/Lymphoma panel submitted , but pending. Leukocytosis appears to fluctuate without correlation to vital signs or mentation. Reason For Visit: DKA, SEPSIS Physical Exam Vital Signs: Temp Pulse Resp BP Pulse Ox 98.6 F 85 18 95/61 L 99 09/23/17 16:44 09/23/17 16:44 09/23/17 16:44 09/23/17 16:44 09/23/17 16:44 Intake & Output 09/22/17 09/23/17 09/24/17 06:59 06:59 06:59 Intake Total 2972 2336 1376 Output Total 3050 2400 1075 Balance -78 -64 301 Weight 56.2 kg 55.3 kg General appearance: PRESENT: no acute distress, thin Head exam: PRESENT: atraumatic, normocephalic Eye exam: PRESENT: EOMI, PERRLA. ABSENT: conjunctiva pink Mouth exam: PRESENT: moist, neck supple, tongue midline Neck exam: ABSENT: tenderness, thyromegaly Respiratory exam: ABSENT: accessory muscle use, crackles, rales, rhonchi, wheezes Cardiovascular exam: PRESENT: RRR, +S1, +S2. ABSENT: diastolic murmur, systolic murmur Pulses: PRESENT: normal radial pulses, normal dorsalis pedis pul Vascular exam: PRESENT: normal capillary refill. ABSENT: pallor GI/Abdominal exam: PRESENT: normal bowel sounds, other - ostomy bag with soft brown contents. ABSENT: diminished bowel sounds, mass, Lopez's sign Extremities exam: ABSENT: calf tenderness, clubbing, joint swelling, pedal edema Musculoskeletal exam: PRESENT: full ROM. ABSENT: tenderness Neurological exam: PRESENT: altered, oriented to person, oriented to place, oriented to time, CN II-XII grossly intact Psychiatric exam: ABSENT: agitated, anxious, manic Focused psych exam: ABSENT: delusional, paranoid Skin exam: ABSENT: abrasion, cyanosis, pallor Results Laboratory Results: 09/23/17 04:42 09/23/17 04:42 09/23/17 09/23/17 09/23/17 04:42 04:42 06:55 WBC 21.2 H RBC 3.26 L Hgb 7.9 L Hct 25.2 L MCV 78 L MCH 24.3 L MCHC 31.3 L RDW 19.0 H Plt Count 511 H Sodium 139.5 Potassium 3.1 L Chloride 100 Carbon Dioxide 30 Anion Gap 10 BUN 9 Creatinine 1.00 Est GFR ( Amer) > 60 Est GFR (Non-Af Amer) > 60 Glucose 132 H Calcium 8.6 Phosphorus 4.1 Albumin 2.3 L Urine Color YELLOW Urine Appearance SLIGHTLY-CLOUDY Urine pH 6.0 Ur Specific [place] 1.004 Urine Protein NEGATIVE Urine Glucose (UA) NEGATIVE Urine Ketones NEGATIVE Urine Blood LARGE H Urine Nitrite NEGATIVE Ur Leukocyte Esterase MODERATE H Urine WBC (Auto) 21 Urine RBC (Auto) 29 08/24/17 08/24/17 08/25/17 18:00 22:00 05:15 Creatine Kinase 140 117 82 CK-MB (CK-2) Troponin I NT-Pro-B Natriuret Pep 09/02/17 09/02/17 09/03/17 17:45 17:45 05:35 Creatine Kinase 50 L CK-MB (CK-2) 0.40 Troponin I 0.027 NT-Pro-B Natriuret Pep 4690 H Impressions: Thoracic Spine CT 08/26/17 08:00 IMPRESSION: No acute findings in the thoracic spine. Abdomen/Pelvis CT 08/27/17 00:00 IMPRESSION: 1. Extensive basilar pulmonary changes suggesting pneumonia. 2. No evidence of intra- abdominal or intrapelvic abscess or drainable collection. Postoperative changes as above without evidence of mechanical bowel obstruction. 3. Marked irregular soft tissue loss in the proximal left posterior and medial thigh, incompletely assessed. No suggestion of regional drainable collection as imaged. Chest X-Ray 09/13/17 00:00 IMPRESSION: NO ACUTE RADIOGRAPHIC FINDING IN THE CHEST. Assessment & Plan - Plan Summary Plan Summary: 1. Abscess or cellulitis of the perineum, back, heals 1 of 2 blood cultures positive for coag neg staph Agree after review of his past CBCs that his leukocytosis does appear chronic. no significant lymphadenopathy found on CT imaging. his leukemia/lymphoma panel workup lab was unfortunately reported as lost per lab, and had to be redrawn today. His ongoing infection concern are multiple ulcerations on his back, heels and perineum. Nurse performing wound care eschars on heals, healing wounds on back and perineum with santyl. 2. Pneumonia. Clear chest x-ray, appears to have resolved. 3. Diabetes mellitus Continue current plan. 4. Leukocytosis likely secondary to leukemia vs. lymphoma vs. multiple ulcerations. pending leukemia/lymphoma panel workup c diff test negative on 09/15/17, when leukocytosis was elevated 5. Crohn's disease GI attending did evaluate the patient's possible Crohn's picture. I agree that a immunosuppressive medication at this point would greatly impair his ability to recover. 6. Hepatic ketoacidosis. Resolved 7. Severe protein calorie malnutrition. Encouraged his diet. 8. Hidradenitis supprativa of anus surgery following. 9. Hypoxic Brain Injury periods of aggitation. on Seroquel 10. Chronic Pain continue pain medications 11. Hypokalemia. replacing likely loosing through loose stool in ostomy 12. Aggitation. remove soft wrist restraints when behavior improves on seroquel qhs 13. Hypernatremia. resolving. received IVF support. 14. Opiod dependence. 15. Hematruia. secondary to araiza trauma, resolved 16. Disposition. bed available in [facility] once restraints off for 24 hr, possible Tuesday discharge Overall this patient has a very limited and poor prognosis with his multiple co- morbidities, multiple ulcerations, and possible undiagnosed malignancy.
[2017-09-23] MEDS: POTASSI CL 20 MEQ/50 ML RIDER 20 MEQ/50 ML RTUPB IV SCH (21:58)
[2017-09-23] MEDS ORDERED: DEXTROSE 40% GEL 15 GM TUBE PO PRN ×2 (23:30)
[2017-09-23] MEDS ORDERED: GLUCAGON,HUMAN RECOMB 1 MG INJ SUBCUT PRN (23:30)
[2017-09-23] MEDS ORDERED: DEXTROSE 50%-WATER 25 GM/50 ML DISP.SYRIN IV PRN ×2 (23:30)
--- NOTE | 2017-09-23 23:38 | PDOC PROGRESS REPORT ---
Subjective Progress Note for:: 09/23/17 Subjective:: Sacral wound with slough noted. Reason For Visit: DKA, SEPSIS Physical Exam Vital Signs: Temp Pulse Resp BP Pulse Ox 98.9 F 102 H 16 90/59 L 100 09/23/17 19:14 09/23/17 19:14 09/23/17 19:14 09/23/17 19:14 09/23/17 19:14 Intake & Output 09/22/17 09/23/17 09/24/17 06:59 06:59 06:59 Intake Total 2972 2336 1376 Output Total 3050 2400 1075 Balance -78 -64 301 Weight 56.2 kg 55.3 kg Respiratory exam: PRESENT: clear to auscultation daija. ABSENT: rales, rhonchi, wheezes Cardiovascular exam: PRESENT: RRR. ABSENT: diastolic murmur, rubs, systolic murmur GI/Abdominal exam: PRESENT: normal bowel sounds, soft. ABSENT: distended, guarding, mass, organolmegaly, rebound, tenderness Gentrourinary exam: PRESENT: other - hidradenitis of the perineal area and scrotum. Neurological exam: PRESENT: alert, awake, oriented to person, oriented to place , oriented to time, oriented to situation, CN II-XII grossly intact Psychiatric exam: PRESENT: appropriate affect, normal mood. ABSENT: homicidal ideation, suicidal ideation Skin exam: PRESENT: other - 5cm x 5cm x 2cm sacral ulcer with slough and mild purulence; 4cm x 3cm x 0cm left trochanteric decubitus ulcer appears clean and granulating; clean left groin ulcer 2.5cm x 0.8cm x 0cm; multiple smaller ulcers of the perineum, no significant drainage, thickened skin. Results Laboratory Results: 09/23/17 04:42 09/23/17 04:42 09/23/17 09/23/17 09/23/17 04:42 04:42 06:55 WBC 21.2 H RBC 3.26 L Hgb 7.9 L Hct 25.2 L MCV 78 L MCH 24.3 L MCHC 31.3 L RDW 19.0 H Plt Count 511 H Sodium 139.5 Potassium 3.1 L Chloride 100 Carbon Dioxide 30 Anion Gap 10 BUN 9 Creatinine 1.00 Est GFR ( Amer) > 60 Est GFR (Non-Af Amer) > 60 Glucose 132 H Calcium 8.6 Phosphorus 4.1 Albumin 2.3 L Urine Color YELLOW Urine Appearance SLIGHTLY-CLOUDY Urine pH 6.0 Ur Specific [place] 1.004 Urine Protein NEGATIVE Urine Glucose (UA) NEGATIVE Urine Ketones NEGATIVE Urine Blood LARGE H Urine Nitrite NEGATIVE Ur Leukocyte Esterase MODERATE H Urine WBC (Auto) 21 Urine RBC (Auto) 29 08/24/17 08/24/17 08/25/17 18:00 22:00 05:15 Creatine Kinase 140 117 82 CK-MB (CK-2) Troponin I NT-Pro-B Natriuret Pep 09/02/17 09/02/17 09/03/17 17:45 17:45 05:35 Creatine Kinase 50 L CK-MB (CK-2) 0.40 Troponin I 0.027 NT-Pro-B Natriuret Pep 4690 H Impressions: Thoracic Spine CT 08/26/17 08:00 IMPRESSION: No acute findings in the thoracic spine. Abdomen/Pelvis CT 08/27/17 00:00 IMPRESSION: 1. Extensive basilar pulmonary changes suggesting pneumonia. 2. No evidence of intra- abdominal or intrapelvic abscess or drainable collection. Postoperative changes as above without evidence of mechanical bowel obstruction. 3. Marked irregular soft tissue loss in the proximal left posterior and medial thigh, incompletely assessed. No suggestion of regional drainable collection as imaged. Chest X-Ray 09/13/17 00:00 IMPRESSION: NO ACUTE RADIOGRAPHIC FINDING IN THE CHEST. Assessment & Plan - Diagnosis (1) Hidradenitis suppurativa of anus Is this a current diagnosis for this admission?: Yes (2) Groin abscess Is this a current diagnosis for this admission?: Yes (3) Diabetic keto-acidosis Qualifiers: Diabetes mellitus type: type 1 Diabetes mellitus complication detail: with coma Qualified Code(s): E10.11 - Type 1 diabetes mellitus with ketoacidosis with coma Is this a current diagnosis for this admission?: Yes (4) Sacral decubitus ulcer, stage III Is this a current diagnosis for this admission?: Yes (5) Decubitus ulcer, hip, left, unstageable Is this a current diagnosis for this admission?: Yes (6) Hidradenitis Is this a current diagnosis for this admission?: Yes - Plan Summary Plan Summary: The patient will need debridement of the sacral decubitus. Wound vac to the left hip ulcer Aquacel silver daily dressings to the left groin.
[2017-09-23] MEDS: QUETIAPINE FUMARATE 25 MG TABLET PO SCH (23:47)
[2017-09-23] MEDS: TAMSULOSIN HCL 0.4 MG CAP.SR.24H PO SCH (23:48)
[2017-09-24 00:06] LABS: ANION GAP 7 (5-19); BLOOD UREA NITROGEN 10 mg/dL (7-20); CALCIUM 8.8 mg/dL (8.4-10.2); CARBON DIOXIDE 31 mmol/L (22-30); CHLORIDE 103 mmol/L (98-107); GLUCOSE 113 mg/dL (75-110); POTASSIUM 3.3 mmol/L (3.6-5.0); SODIUM 141.4 mmol/L (137-145)
[2017-09-24] MEDS: POTASSI CL 20 MEQ/50 ML RIDER 20 MEQ/50 ML RTUPB IV SCH (00:15)
[2017-09-24] MEDS: DILTIAZEM HCL 60 MG TABLET PO SCH ×3 (02:59→18:02)
[2017-09-24] MEDS: DEXTROSE 5%-1/2 NORMAL SALINE 1,000 ML IV PRN (06:46)
[2017-09-24] MEDS: COLLAGENASE CLOSTRIDIUM HIST. OINT 30 GM TOP PRN ×3 (06:47→22:52)
[2017-09-24] MEDS ORDERED: NORMAL SALINE 250 ML IV PRN (07:32)
[2017-09-24 08:48] LABS: HEMATOCRIT 23.1 % (37.9-51.0); MEAN CORPUSCULAR HEMOGLOBIN 24.7 pg (27.0-33.4); MEAN CORPUSCULAR HGB CONC 31.7 g/dL (32.0-36.0); MEAN CORPUSCULAR VOLUME 78 fl (80-97); PLATELET COUNT 598 10^3/uL (150-450); RED BLOOD COUNT 2.97 10^6/uL (4.35-5.55); WHITE BLOOD COUNT 22.1 10^3/uL (4.0-10.5)
[2017-09-24 08:58] LABS: ALBUMIN 2.2 g/dL (3.5-5.0); ANION GAP 5 (5-19); BLOOD UREA NITROGEN 8 mg/dL (7-20); CALCIUM 8.2 mg/dL (8.4-10.2); CARBON DIOXIDE 29 mmol/L (22-30); CHLORIDE 107 mmol/L (98-107); GLUCOSE 97 mg/dL (75-110); POTASSIUM 3.2 mmol/L (3.6-5.0)
[2017-09-24 09:06] LABS: HEMOGLOBIN 7.3 g/dL (13.5-17.0)
--- NOTE | 2017-09-24 10:58 | PDOC PROGRESS REPORT ---
Subjective Progress Note for:: 09/24/17 Subjective:: Patient reports Headache and cold chills. ROS: No nausea/Constipation, diarrhea. Some abdominal cramping. No Dyspnea. Feels weak all over. Reason For Visit: DKA, SEPSIS Physical Exam Vital Signs: Temp Pulse Resp BP Pulse Ox 97.9 F 95 10 L 115/70 99 09/24/17 07:35 09/24/17 07:35 09/24/17 07:35 09/24/17 07:35 09/24/17 07:35 Intake & Output 09/23/17 09/24/17 09/25/17 06:59 06:59 06:59 Intake Total 2336 3361 Output Total 2400 3750 Balance -64 -389 Weight 55.3 kg 57.8 kg General appearance: PRESENT: no acute distress Exam: Well nourished, 51 year old male in bed. Head exam: PRESENT: atraumatic Respiratory exam: PRESENT: clear to auscultation daija, unlabored Cardiovascular exam: PRESENT: RRR GI/Abdominal exam: PRESENT: soft, tenderness Extremities exam: ABSENT: pedal edema Neurological exam: PRESENT: alert, awake Psychiatric exam: PRESENT: appropriate affect Results Laboratory Results: 09/24/17 07:58 09/24/17 07:58 09/23/17 09/24/17 09/24/17 23:35 07:58 07:58 WBC 22.1 H RBC 2.97 L Hgb 7.3 L Hct 23.1 L MCV 78 L MCH 24.7 L MCHC 31.7 L RDW 19.0 H Plt Count 598 H Sodium 141.4 141.0 Potassium 3.3 L 3.2 L Chloride 103 107 Carbon Dioxide 31 H 29 Anion Gap 7 5 BUN 10 8 Creatinine 0.88 0.83 Est GFR ( Amer) > 60 > 60 Est GFR (Non-Af Amer) > 60 > 60 Glucose 113 H 97 Calcium 8.8 8.2 L Phosphorus 4.0 Ferritin 177.00 Albumin 2.2 L Blood Type Antibody Screen 09/24/17 07:58 WBC RBC Hgb Hct MCV MCH MCHC RDW Plt Count Sodium Potassium Chloride Carbon Dioxide Anion Gap BUN Creatinine Est GFR ( Amer) Est GFR (Non-Af Amer) Glucose Calcium Phosphorus Ferritin Albumin Blood Type B POSITIVE Antibody Screen NEGATIVE 08/24/17 08/24/1718 18:00 22:00 05:15 Creatine Kinase 140 117 82 CK-MB (CK-2) Troponin I NT-Pro-B Natriuret Pep 09/02/17 09/02/17 09/03/17 17:45 17:45 05:35 Creatine Kinase 50 L CK-MB (CK-2) 0.40 Troponin I 0.027 NT-Pro-B Natriuret Pep 4690 H Impressions: Thoracic Spine CT 08/26/17 08:00 IMPRESSION: No acute findings in the thoracic spine. Abdomen/Pelvis CT 08/27/17 00:00 IMPRESSION: 1. Extensive basilar pulmonary changes suggesting pneumonia. 2. No evidence of intra- abdominal or intrapelvic abscess or drainable collection. Postoperative changes as above without evidence of mechanical bowel obstruction. 3. Marked irregular soft tissue loss in the proximal left posterior and medial thigh, incompletely assessed. No suggestion of regional drainable collection as imaged. Chest X-Ray 09/13/17 00:00 IMPRESSION: NO ACUTE RADIOGRAPHIC FINDING IN THE CHEST. Assessment & Plan - Diagnosis (1) Anemia, chronic disease Is this a current diagnosis for this admission?: Yes Plan: Will transfuse 2 units pRBC today. Ferritin was normal, but his overall iron stores may still be low, and ferritin may be normal due to acute phase reactant. Consider checking B12 and folate if not already performed. Await Flow cytometry results. Specimen was redrawn and sent again. - Plan Summary Plan Summary: He is scheduled for debridement of wounds again today. He continues antibiotics. Please call if needed, but continue transfusion support for now until further answers obtained from the Flow Cytometry.
[2017-09-24] MEDS: FAMOTIDINE 20 MG TABLET PO SCH ×2 (11:32→22:49)
[2017-09-24] MEDS: DULOXETINE HCL 30 MG CAPSULE.DR PO SCH ×2 (11:32→22:49)
[2017-09-24] MEDS: FINASTERIDE 5 MG TABLET PO SCH (11:33)
[2017-09-24] MEDS: MORPHINE SULFATE SR 100 MG TABLET PO SCH ×2 (11:33→22:52)
[2017-09-24] MEDS: NYSTATIN 500000 UNIT/5 ML UDCUP PO SCH ×4 (11:34→22:49)
[2017-09-24] MEDS: ENOXAPARIN SODIUM INJ 40 MG/0.4 ML DISP.SYRIN SUBCUT SCH (11:34)
[2017-09-24] MEDS: MULTIVITAMINS W-IRON TABLET, CHEWABLE PO SCH (11:34)
--- NOTE | 2017-09-24 11:47 | PDOC PROGRESS REPORT ---
Subjective Progress Note for:: 09/24/17 Reason For Visit: sacral decubitus Physical Exam Vital Signs: Temp Pulse Resp BP Pulse Ox 97.9 F 100 16 124/83 99 09/24/17 11:13 09/24/17 11:13 09/24/17 11:13 09/24/17 11:13 09/24/17 07:35 Intake & Output 09/23/17 09/24/17 09/25/17 06:59 06:59 06:59 Intake Total 2336 3361 0 Output Total 2400 3750 Balance -64 -389 0 Weight 55.3 kg 57.8 kg Skin exam: PRESENT: other - 8.0 cm sacral decubitis granulating and covered with fibrinous material, no clerlulitis, no odor Results Laboratory Results: 09/24/17 07:58 09/24/17 07:58 09/23/17 09/24/17 09/24/17 23:35 07:58 07:58 WBC 22.1 H RBC 2.97 L Hgb 7.3 L Hct 23.1 L MCV 78 L MCH 24.7 L MCHC 31.7 L RDW 19.0 H Plt Count 598 H Sodium 141.4 141.0 Potassium 3.3 L 3.2 L Chloride 103 107 Carbon Dioxide 31 H 29 Anion Gap 7 5 BUN 10 8 Creatinine 0.88 0.83 Est GFR ( Amer) > 60 > 60 Est GFR (Non-Af Amer) > 60 > 60 Glucose 113 H 97 Calcium 8.8 8.2 L Phosphorus 4.0 Ferritin 177.00 Albumin 2.2 L Blood Type Antibody Screen 09/24/17 07:58 WBC RBC Hgb Hct MCV MCH MCHC RDW Plt Count Sodium Potassium Chloride Carbon Dioxide Anion Gap BUN Creatinine Est GFR ( Amer) Est GFR (Non-Af Amer) Glucose Calcium Phosphorus Ferritin Albumin Blood Type B POSITIVE Antibody Screen NEGATIVE 09/19/17 11:15 Blood Blood Culture - Final NO GROWTH IN 5 DAYS 08/24/17 08/24/17 08/25/17 18:00 22:00 05:15 Creatine Kinase 140 117 82 CK-MB (CK-2) Troponin I NT-Pro-B Natriuret Pep 09/02/17 09/02/17 09/03/17 17:45 17:45 05:35 Creatine Kinase 50 L CK-MB (CK-2) 0.40 Troponin I 0.027 NT-Pro-B Natriuret Pep 4690 H Impressions: Thoracic Spine CT 08/26/17 08:00 IMPRESSION: No acute findings in the thoracic spine. Abdomen/Pelvis CT 08/27/17 00:00 IMPRESSION: 1. Extensive basilar pulmonary changes suggesting pneumonia. 2. No evidence of intra- abdominal or intrapelvic abscess or drainable collection. Postoperative changes as above without evidence of mechanical bowel obstruction. 3. Marked irregular soft tissue loss in the proximal left posterior and medial thigh, incompletely assessed. No suggestion of regional drainable collection as imaged. Chest X-Ray 09/13/17 00:00 IMPRESSION: NO ACUTE RADIOGRAPHIC FINDING IN THE CHEST. Assessment & Plan - Diagnosis (1) Abscess or cellulitis of perineum Is this a current diagnosis for this admission?: Yes (2) Hidradenitis Is this a current diagnosis for this admission?: Yes (3) Decubitus ulcer Qualifiers: Pressure ulcer location: sacral region Pressure ulcer stage: stage 3 Qualified Code(s): L89.153 - Pressure ulcer of sacral region, stage 3 Is this a current diagnosis for this admission?: Yes Plan: debridment at bedside today replace dressing in AM In AM, apply Acticoat Flex 3, replace q3 days Acticoat Flex 3 to Left groin, rep[lace q3 days keep patient on lateral decubitus only (30 min on the Right side, 30 min on the Left side), avoid supine position
--- NOTE | 2017-09-24 11:49 | OPERATIVE REPORT E ---
Operative Report NAME: TIA VILLANUEVA : 03/17/1946 AGE: 71Y DATE OF SURGERY: 09/24/2017 ROOM: 321 PREOPERATIVE DIAGNOSIS: Sacral decubitus, grade 2, measuring 8 cm in diameter. POSTOPERATIVE DIAGNOSIS: Sacral decubitus, grade 2, measuring 8 cm in diameter. PROCEDURE: Sharp debridement of grade 2 decubitus, 8 cm in diameter. SURGEON: NAHID UNDERWOOD M.D. COMPLICATIONS: None. ANESTHESIA: None. INDICATION AND FINDINGS: This is a 71-year-old male who was previously intubated and comatose in the ICU for several days following an episode of fall secondary to diabetes. The patient presents with a sacral decubitus, which requires surgical attention with debridement. DESCRIPTION OF PROCEDURE: It was done at bedside. The patient was placed in left lateral decubitus. The sacral decubitus was prepped with Betadine and sharp scissors were used to debride sharply the grade 2 sacral decubitus measuring 8 cm in diameter. This was done until bleeding tissue was obtained. The area was then covered with Betadine-soaked sponges, sterile dressings, and tape. The patient tolerated the procedure well. DICTATING PHYSICIAN: NAHID UNDERWOOD M.D. [id number] PHY#: [id number] ID: [id number] JOB#: [id number] ACCT: [id number] cc:NAHID UNDERWOOD M.D. > MTDD
--- NOTE | 2017-09-24 11:50 | Operative Report ---
Nonrecallable Operative Report DATE OF SURGERY: 09/24/17 PREOPERATIVE DIAGNOSIS: sacral decubitus grade 3 8.0 cm in diameter POSTOPERATIVE DIAGNOSIS: same OPERATION: Shart full thickness debridment sacral decubitus 8.0 cm diameter SURGEON: NAHID UNDERWOOD ANESTHESIA: Other - none TISSUE REMOVED OR ALTERED: fibrin layer COMPLICATIONS: none ESTIMATED BLOOD LOSS: negligible INTRAOPERATIVE FINDINGS: entire sacral decubitus bed covered with fibrin, granulation tissue underneath PROCEDURE: see dictation
--- NOTE | 2017-09-24 12:38 | PDOC PROGRESS REPORT ---
Subjective Progress Note for:: 09/24/17 Subjective:: The patient is a 51-year-old male who presented with sepsis and DKA. The patient has a history of severe perineal hidradenitis suppurativa. He presented with a large groin abscess in the left groin, perineum, and left posterior upper thigh. On 08/24/17 he was emergently taken to surgery for drainage of this chronic abscess. His respiratory status declined later during the evening of 08/24/17 and he was intubated. On 08/25/2017 the patient was taken back to the operating room to undergo additional debridement. Secondary to chronic hidradenitis suppurativa the patient has formed abscesses of the perineum, groin and left posterior upper thigh. Arrangements are being made for the patient to be transferred to [facility] facility. Patient' s only complaint this morning was that he is not getting his medications on time. Reason For Visit: DKA, SEPSIS Physical Exam Vital Signs: Temp Pulse Resp BP Pulse Ox 97.7 F 107 H 20 123/75 100 09/24/17 11:28 09/24/17 11:28 09/24/17 11:28 09/24/17 11:28 09/24/17 11:28 Intake & Output 09/23/17 09/24/17 09/25/17 06:59 06:59 06:59 Intake Total 2336 3361 0 Output Total 2400 3750 Balance -64 -389 0 Weight 55.3 kg 57.8 kg Additional comments: The patient appears to be slightly older than the age of 51. He appears to be in chronically poor health. He was sleeping when I entered the room but woke up easily. He notes that he is in the hospital. Again, he was concerned that he is not getting his medications on time. He did not appear to be agitated or belligerent. Patient's lungs are noted to be clear to auscultation bilaterally. His cardiac exam is regular. He does not have murmurs, gallops or rubs. The abdomen is very soft. Bowel sounds are noted. The patient's extremity wounds were not examined. His lower extremities are wrapped in soft boots. He does not have any pitting edema present. Skin is otherwise clean, warm, dry and intact. Results Laboratory Results: 09/24/17 07:58 09/24/17 07:58 09/23/17 09/24/17 09/24/17 23:35 07:58 07:58 WBC 22.1 H RBC 2.97 L Hgb 7.3 L Hct 23.1 L MCV 78 L MCH 24.7 L MCHC 31.7 L RDW 19.0 H Plt Count 598 H Sodium 141.4 141.0 Potassium 3.3 L 3.2 L Chloride 103 107 Carbon Dioxide 31 H 29 Anion Gap 7 5 BUN 10 8 Creatinine 0.88 0.83 Est GFR ( Amer) > 60 > 60 Est GFR (Non-Af Amer) > 60 > 60 Glucose 113 H 97 Calcium 8.8 8.2 L Phosphorus 4.0 Ferritin 177.00 Albumin 2.2 L Blood Type Antibody Screen 09/24/17 07:58 WBC RBC Hgb Hct MCV MCH MCHC RDW Plt Count Sodium Potassium Chloride Carbon Dioxide Anion Gap BUN Creatinine Est GFR ( Amer) Est GFR (Non-Af Amer) Glucose Calcium Phosphorus Ferritin Albumin Blood Type B POSITIVE Antibody Screen NEGATIVE 09/19/17 11:15 Blood Blood Culture - Final NO GROWTH IN 5 DAYS 08/24/17 08/24/17 08/25/17 18:00 22:00 05:15 Creatine Kinase 140 117 82 CK-MB (CK-2) Troponin I NT-Pro-B Natriuret Pep 09/02/17 09/02/17 09/03/17 17:45 17:45 05:35 Creatine Kinase 50 L CK-MB (CK-2) 0.40 Troponin I 0.027 NT-Pro-B Natriuret Pep 4690 H Impressions: Thoracic Spine CT 08/26/17 08:00 IMPRESSION: No acute findings in the thoracic spine. Abdomen/Pelvis CT 08/27/17 00:00 IMPRESSION: 1. Extensive basilar pulmonary changes suggesting pneumonia. 2. No evidence of intra- abdominal or intrapelvic abscess or drainable collection. Postoperative changes as above without evidence of mechanical bowel obstruction. 3. Marked irregular soft tissue loss in the proximal left posterior and medial thigh, incompletely assessed. No suggestion of regional drainable collection as imaged. Chest X-Ray 09/13/17 00:00 IMPRESSION: NO ACUTE RADIOGRAPHIC FINDING IN THE CHEST. Assessment & Plan - Diagnosis (1) Diabetic keto-acidosis Qualifiers: Diabetes mellitus type: type 1 Diabetes mellitus complication detail: with coma Qualified Code(s): E10.11 - Type 1 diabetes mellitus with ketoacidosis with coma Is this a current diagnosis for this admission?: Yes (2) Hypothermia Qualifiers: Encounter type: subsequent encounter Qualified Code(s): T68.XXXD - Hypothermia, subsequent encounter Is this a current diagnosis for this admission?: Yes (3) Severe protein-calorie malnutrition Is this a current diagnosis for this admission?: Yes (4) Groin abscess Is this a current diagnosis for this admission?: Yes (5) Laceration of skin overlying spine Is this a current diagnosis for this admission?: Yes (6) Abscess or cellulitis of perineum Is this a current diagnosis for this admission?: Yes (7) CHRONIC PERINEAL inflammation Is this a current diagnosis for this admission?: Yes (8) Crohns disease Qualifiers: Gastrointestinal tract location: unspecified location Is this a current diagnosis for this admission?: Yes (9) Diabetes mellitus Qualifiers: Diabetes mellitus type: type 1 Diabetes mellitus complication status: with unspecified complications Qualified Code(s): E10.8 - Type 1 diabetes mellitus with unspecified complications Is this a current diagnosis for this admission?: Yes (10) Sepsis Qualifiers: Sepsis type: sepsis due to unspecified organism Qualified Code(s): A41.9 - Sepsis, unspecified organism Is this a current diagnosis for this admission?: Yes (11) Euthyroid sick syndrome Is this a current diagnosis for this admission?: Yes (12) Acute respiratory failure with hypoxia Is this a current diagnosis for this admission?: Yes (13) Septic shock Is this a current diagnosis for this admission?: No (14) Pneumonia Qualifiers: Laterality: bilateral Lung location: unspecified part of lung Is this a current diagnosis for this admission?: Yes - Time Time Spent with patient: 15-24 minutes - Inpatient Certification Medical Necessity: Other - Patient is receiving 2 units packed red blood cells today for anemia. - Plan Summary Plan Summary: 1. Surgery is continuing to follow the patient for abscess of perineum, back and heels. 2. Pneumonia appears to be resolved. 3. Diabetes: Under good control. No changes today. 4. Leukocytosis: I appreciate recommendations from oncology. 5. Crohn's: Patient is not a candidate for immunosuppressive drugs at this time. 6. Hepatic ketoacidosis: Resolved. 7. Severe protein calorie malnutrition: Encouraging p.o. diet with supplements. 8. Hidradenitis of anus: Surgery is following. 9. Hypoxic brain injury: Continue Seroquel. 10. Chronic opioid use: Continue pain medications 11. Continue to supplement potassium as needed. 12. Hypernatremia, improving. 13. Hematuria, resolved. This was likely secondary to [place] trauma.
[2017-09-24] MEDS: OXYCODONE HCL IR 5 MG TABLET PO PRN (15:10)
[2017-09-24] MEDS: QUETIAPINE FUMARATE 25 MG TABLET PO SCH (22:48)
[2017-09-24] MEDS: TAMSULOSIN HCL 0.4 MG CAP.SR.24H PO SCH (22:48)
[2017-09-24 23:40] LABS: HEMATOCRIT 28.9 % (37.9-51.0); HEMOGLOBIN 9.3 g/dL (13.5-17.0); MEAN CORPUSCULAR HEMOGLOBIN 25.4 pg (27.0-33.4); MEAN CORPUSCULAR HGB CONC 32.2 g/dL (32.0-36.0); MEAN CORPUSCULAR VOLUME 79 fl (80-97); PLATELET COUNT 588 10^3/uL (150-450); RED BLOOD COUNT 3.67 10^6/uL (4.35-5.55); RED CELL DISTRIBUTION WIDTH 18.8 % (11.5-14.0); WHITE BLOOD COUNT 27.8 10^3/uL (4.0-10.5)
[2017-09-25] MEDS: DILTIAZEM HCL 60 MG TABLET PO SCH ×3 (03:03→17:07)
[2017-09-25] MEDS: OXYCODONE HCL IR 5 MG TABLET PO PRN ×3 (03:04→18:31)
[2017-09-25 06:50] LABS: HEMATOCRIT 28.1 % (37.9-51.0); MEAN CORPUSCULAR HEMOGLOBIN 25.5 pg (27.0-33.4); MEAN CORPUSCULAR HGB CONC 32.1 g/dL (32.0-36.0); MEAN CORPUSCULAR VOLUME 80 fl (80-97); PLATELET COUNT 559 10^3/uL (150-450); RED BLOOD COUNT 3.53 10^6/uL (4.35-5.55); RED CELL DISTRIBUTION WIDTH 18.6 % (11.5-14.0); WHITE BLOOD COUNT 26.4 10^3/uL (4.0-10.5)
[2017-09-25 07:09] LABS: ABSOLUTE MONOCYTES # (MANUAL) 1.8 10^3/uL (0.1-1.4); ABSOLUTE NEUTROPHILS# (MANUAL) 19.3 10^3/uL (1.7-8.2); BAND NEUTROPHILS % (MANUAL) 1 % (3-5); BASOPHILS % (MANUAL) 0 % (0-2); EOSINOPHILS % (MANUAL) 1 % (0-6); LYMPHOCYTES % (MANUAL) 18 % (13-45); MONOCYTES % (MANUAL) 7 % (3-13); SEGMENTED NEUTROPHILS % (MAN) 72 % (42-78); TOTAL CELLS COUNTED 100
[2017-09-25 07:10] LABS: TOXIC VACUOLATION PRESENT
[2017-09-25 07:11] LABS: HYPOCHROMASIA 2+
[2017-09-25 07:12] LABS: ACANTHOCYTES SLIGHT; ANISOCYTOSIS 2+; PLATELET COMMENT INCREASED; POIKILOCYTOSIS 2+; STOMATOCYTES 1+; TARGET CELLS 1+
[2017-09-25 07:28] LABS: ANION GAP 5 (5-19); BLOOD UREA NITROGEN 9 mg/dL (7-20); CARBON DIOXIDE 32 mmol/L (22-30); CHLORIDE 102 mmol/L (98-107); GLUCOSE 121 mg/dL (75-110); PHOSPHORUS 4.1 mg/dL (2.5-4.5); SODIUM 139.4 mmol/L (137-145)
[2017-09-25 08:06] LABS: POTASSIUM 2.9 mmol/L (3.6-5.0)
[2017-09-25] MEDS ORDERED: POTASSIUM CHLORIDE 10 MEQ TABLET.SA PO ONE (10:30)
[2017-09-25] MEDS: DULOXETINE HCL 30 MG CAPSULE.DR PO SCH ×2 (10:55→22:55)
[2017-09-25] MEDS: FINASTERIDE 5 MG TABLET PO SCH (10:55)
[2017-09-25] MEDS: MORPHINE SULFATE SR 100 MG TABLET PO SCH ×2 (10:55→22:56)
[2017-09-25] MEDS: MAGNESIUM SULFATE/D5W 1 GM/100 ML RTUPB IV SCH ×2 (10:55→17:06)
[2017-09-25] MEDS: NYSTATIN 500000 UNIT/5 ML UDCUP PO SCH ×4 (10:55→22:57)
[2017-09-25] MEDS: FAMOTIDINE 20 MG TABLET PO SCH ×2 (10:55→22:55)
[2017-09-25] MEDS: MULTIVITAMINS W-IRON TABLET, CHEWABLE PO SCH (10:55)
[2017-09-25] MEDS: COLLAGENASE CLOSTRIDIUM HIST. OINT 30 GM TOP PRN ×2 (10:56→22:58)
[2017-09-25] MEDS: ENOXAPARIN SODIUM INJ 40 MG/0.4 ML DISP.SYRIN SUBCUT SCH (11:03)
--- NOTE | 2017-09-25 11:28 | PDOC PROGRESS REPORT ---
Subjective Progress Note for:: 09/25/17 Subjective:: no c/o Reason For Visit: DKA, SEPSIS Physical Exam Vital Signs: Temp Pulse Resp BP Pulse Ox 98.1 F 84 12 104/65 100 09/25/17 08:02 09/25/17 08:02 09/25/17 08:02 09/25/17 08:02 09/25/17 08:02 Intake & Output 09/24/17 09/25/17 09/26/17 06:59 06:59 06:59 Intake Total 3361 4338 Output Total 3750 3800 Balance -389 538 Weight 57.8 kg 57.4 kg Skin exam: PRESENT: other - bilatreral groin draining wound with purulent materrial and redness with tenderness Results Laboratory Results: 09/25/17 06:15 09/25/17 06:15 09/24/17 09/24/17 09/25/17 07:58 23:25 06:15 WBC 27.8 H RBC 3.67 L Hgb 9.3 L Hct 28.9 L MCV 79 L MCH 25.4 L MCHC 32.2 RDW 18.8 H Plt Count 588 H Seg Neutrophils % Lymphocytes % Monocytes % Eosinophils % Basophils % Absolute Neutrophils Absolute Lymphocytes Absolute Monocytes Absolute Eosinophils Absolute Basophils Sodium 139.4 Potassium 2.9 L* Chloride 102 Carbon Dioxide 32 H Anion Gap 5 BUN 9 Creatinine 0.79 Est GFR ( Amer) > 60 Est GFR (Non-Af Amer) > 60 Glucose 121 H Calcium 8.0 L Phosphorus 4.1 Magnesium 1.2 L* Vitamin B12 892.0 Folate 11.20 Blood Type B POSITIVE Antibody Screen NEGATIVE 09/25/17 06:15 WBC 26.4 H RBC 3.53 L Hgb 9.0 L Hct 28.1 L MCV 80 MCH 25.5 L MCHC 32.1 RDW 18.6 H Plt Count 559 H Seg Neutrophils % Not Reportable Lymphocytes % Not Reportable Monocytes % Not Reportable Eosinophils % Not Reportable Basophils % Not Reportable Absolute Neutrophils Not Reportable Absolute Lymphocytes Not Reportable Absolute Monocytes Not Reportable Absolute Eosinophils Not Reportable Absolute Basophils Not Reportable Sodium Potassium Chloride Carbon Dioxide Anion Gap BUN Creatinine Est GFR ( Amer) Est GFR (Non-Af Amer) Glucose Calcium Phosphorus Magnesium Vitamin B12 Folate Blood Type Antibody Screen 09/19/17 11:15 Blood Blood Culture - Final NO GROWTH IN 5 DAYS 08/24/17 08/24/17 08/25/17 18:00 22:00 05:15 Creatine Kinase 140 117 82 CK-MB (CK-2) Troponin I NT-Pro-B Natriuret Pep 09/02/17 09/02/17 09/03/17 17:45 17:45 05:35 Creatine Kinase 50 L CK-MB (CK-2) 0.40 Troponin I 0.027 NT-Pro-B Natriuret Pep 4690 H Impressions: Thoracic Spine CT 08/26/17 08:00 IMPRESSION: No acute findings in the thoracic spine. Abdomen/Pelvis CT 08/27/17 00:00 IMPRESSION: 1. Extensive basilar pulmonary changes suggesting pneumonia. 2. No evidence of intra- abdominal or intrapelvic abscess or drainable collection. Postoperative changes as above without evidence of mechanical bowel obstruction. 3. Marked irregular soft tissue loss in the proximal left posterior and medial thigh, incompletely assessed. No suggestion of regional drainable collection as imaged. Chest X-Ray 09/13/17 00:00 IMPRESSION: NO ACUTE RADIOGRAPHIC FINDING IN THE CHEST. Assessment & Plan - Diagnosis (1) Abscess or cellulitis of perineum Is this a current diagnosis for this admission?: Yes (2) Hidradenitis Is this a current diagnosis for this admission?: Yes (3) Decubitus ulcer Qualifiers: Pressure ulcer location: sacral region Pressure ulcer stage: stage 3 Qualified Code(s): L89.153 - Pressure ulcer of sacral region, stage 3 Is this a current diagnosis for this admission?: Yes - Plan Summary Plan Summary: A/ recurrent bilateral groin draining hydroadenitis suppurativa P/ patient to go to [facility] for drainage of the bilateral groin draining hydroadenitis suppurativa obtain consent Patient agrees with procedure
[2017-09-25] MEDS: POTASSIUM CHLORIDE 20 MEQ/50 ML RTU IV SCH ×2 (11:33→17:04)
[2017-09-25] MEDS ORDERED: PIPERACILLIN/TAZOBACTAM 3.375 GM VIAL IV ONE (11:51)
[2017-09-25] MEDS ORDERED: PIPERACILLIN SODIUM/TAZOBACTAM 3.375 GM in NORMAL SALINE 100 ML IV ONE (12:15)
[2017-09-25] MEDS ORDERED: FENTANYL CITRATE INJ/PF 100 MCG/2 ML AMPUL ONE ×2 (13:05→15:36)
[2017-09-25] MEDS ORDERED: ACETAMINOPHEN 100 ML IV ONE (13:06)
[2017-09-25] MEDS ORDERED: MIDAZOLAM 2 MG/2 ML INJ ONE (13:06)
[2017-09-25] MEDS ORDERED: PROPOFOL INJ 200 MG/20 ML VIAL IV ONE (13:06)
[2017-09-25] MEDS ORDERED: ONDANSETRON HCL INJ/PF 4 MG/2 ML SDV ONE (13:06)
--- NOTE | 2017-09-25 13:52 | PDOC PROGRESS REPORT ---
Subjective Progress Note for:: 09/25/17 Subjective:: The patient is a 51-year-old male who presented with sepsis and DKA. The patient has a history of severe perineal hidradenitis suppurativa. He presented with a large groin abscess in the left groin, perineum, and left posterior upper thigh. On 08/24/17 he was emergently taken to surgery for drainage of this chronic abscess. His respiratory status declined later during the evening of 08/24/17 and he was intubated. On 08/25/2017 the patient was taken back to the operating room to undergo additional debridement. Secondary to chronic hidradenitis suppurativa the patient has formed abscesses of the perineum, groin and left posterior upper thigh. The patient underwent debridement of the sacral ulcer on September 24, 2017. This was done at the bedside by general surgery. Today, general surgery was evaluating the patient' s wounds. He has positive purulent drainage from the groin abscesses and he is going back to the operating room today for extensive incision and drainage. Arrangements are being made for the patient to be transferred to [place] long-term facility when stable. Patient denied any complaints this morning of chest pain, shortness of breath, abdominal pain. Reason For Visit: DKA, SEPSIS Physical Exam Vital Signs: Temp Pulse Resp BP Pulse Ox 98.1 F 84 12 104/65 100 09/25/17 08:02 09/25/17 08:02 09/25/17 08:02 09/25/17 08:02 09/25/17 08:02 Intake & Output 09/24/17 09/25/17 09/26/17 06:59 06:59 06:59 Intake Total 3361 4338 0 Output Total 3750 3800 700 Balance -389 538 -700 Weight 57.8 kg 57.4 kg Additional comments: The patient appears to be slightly older than his stated age. He does not appear to be in good general health. He is thin, bordering on cachexia. He has evidence of temporal wasting. He has some skin breakdown over the right ear which appears to be secondary to necrosis. He is alert, awake and oriented. He is able to give informed consent about his upcoming operation. He understands why this is necessary. His lungs are noted to be clear to auscultation bilaterally. His cardiac exam is regular without murmurs, gallops or rubs. The abdomen is soft and flat. He has a colostomy bag in place. Stool is in the bag. The wounds were examined with general surgery today. He does have pus oozing out of the wounds. His lower extremities are otherwise unremarkable. Results Laboratory Results: 09/25/17 06:15 09/25/17 06:15 09/24/17 09/24/17 09/25/17 07:58 23:25 06:15 WBC 27.8 H RBC 3.67 L Hgb 9.3 L Hct 28.9 L MCV 79 L MCH 25.4 L MCHC 32.2 RDW 18.8 H Plt Count 588 H Seg Neutrophils % Lymphocytes % Monocytes % Eosinophils % Basophils % Absolute Neutrophils Absolute Lymphocytes Absolute Monocytes Absolute Eosinophils Absolute Basophils Sodium 139.4 Potassium 2.9 L* Chloride 102 Carbon Dioxide 32 H Anion Gap 5 BUN 9 Creatinine 0.79 Est GFR ( Amer) > 60 Est GFR (Non-Af Amer) > 60 Glucose 121 H Calcium 8.0 L Phosphorus 4.1 Magnesium 1.2 L* Vitamin B12 892.0 Folate 11.20 Blood Type B POSITIVE Antibody Screen NEGATIVE 09/25/17 06:15 WBC 26.4 H RBC 3.53 L Hgb 9.0 L Hct 28.1 L MCV 80 MCH 25.5 L MCHC 32.1 RDW 18.6 H Plt Count 559 H Seg Neutrophils % Not Reportable Lymphocytes % Not Reportable Monocytes % Not Reportable Eosinophils % Not Reportable Basophils % Not Reportable Absolute Neutrophils Not Reportable Absolute Lymphocytes Not Reportable Absolute Monocytes Not Reportable Absolute Eosinophils Not Reportable Absolute Basophils Not Reportable Sodium Potassium Chloride Carbon Dioxide Anion Gap BUN Creatinine Est GFR ( Amer) Est GFR (Non-Af Amer) Glucose Calcium Phosphorus Magnesium Vitamin B12 Folate Blood Type Antibody Screen 09/19/17 11:15 Blood Blood Culture - Final NO GROWTH IN 5 DAYS 08/24/17 08/24/17 08/25/17 18:00 22:00 05:15 Creatine Kinase 140 117 82 CK-MB (CK-2) Troponin I NT-Pro-B Natriuret Pep 09/02/17 09/02/17 09/03/17 17:45 17:45 05:35 Creatine Kinase 50 L CK-MB (CK-2) 0.40 Troponin I 0.027 NT-Pro-B Natriuret Pep 4690 H Impressions: Thoracic Spine CT 08/26/17 08:00 IMPRESSION: No acute findings in the thoracic spine. Abdomen/Pelvis CT 08/27/17 00:00 IMPRESSION: 1. Extensive basilar pulmonary changes suggesting pneumonia. 2. No evidence of intra- abdominal or intrapelvic abscess or drainable collection. Postoperative changes as above without evidence of mechanical bowel obstruction. 3. Marked irregular soft tissue loss in the proximal left posterior and medial thigh, incompletely assessed. No suggestion of regional drainable collection as imaged. Chest X-Ray 09/13/17 00:00 IMPRESSION: NO ACUTE RADIOGRAPHIC FINDING IN THE CHEST. Assessment & Plan - Diagnosis (1) Diabetic keto-acidosis Qualifiers: Diabetes mellitus type: type 1 Diabetes mellitus complication detail: with coma Qualified Code(s): E10.11 - Type 1 diabetes mellitus with ketoacidosis with coma Is this a current diagnosis for this admission?: Yes (2) Hypothermia Qualifiers: Encounter type: subsequent encounter Qualified Code(s): T68.XXXD - Hypothermia, subsequent encounter Is this a current diagnosis for this admission?: Yes (3) Severe protein-calorie malnutrition Is this a current diagnosis for this admission?: Yes (4) Groin abscess Is this a current diagnosis for this admission?: Yes (5) Laceration of skin overlying spine Is this a current diagnosis for this admission?: Yes (6) Abscess or cellulitis of perineum Is this a current diagnosis for this admission?: Yes (7) CHRONIC PERINEAL inflammation Is this a current diagnosis for this admission?: Yes (8) Crohns disease Qualifiers: Gastrointestinal tract location: unspecified location Is this a current diagnosis for this admission?: Yes (9) Diabetes mellitus Qualifiers: Diabetes mellitus type: type 1 Diabetes mellitus complication status: with unspecified complications Qualified Code(s): E10.8 - Type 1 diabetes mellitus with unspecified complications Is this a current diagnosis for this admission?: Yes (10) Sepsis Qualifiers: Sepsis type: sepsis due to unspecified organism Qualified Code(s): A41.9 - Sepsis, unspecified organism Is this a current diagnosis for this admission?: Yes (11) Euthyroid sick syndrome Is this a current diagnosis for this admission?: Yes (12) Acute respiratory failure with hypoxia Is this a current diagnosis for this admission?: Yes (13) Septic shock Is this a current diagnosis for this admission?: No (14) Pneumonia Qualifiers: Laterality: bilateral Lung location: unspecified part of lung Is this a current diagnosis for this admission?: Yes - Time Time Spent with patient: 25-34 minutes - Inpatient Certification Medical Necessity: Need for IV Antibiotics, Need for Surgery - Plan Summary Plan Summary: 1. Surgery is continuing to follow the patient for abscess of perineum, back and heels. He is going back to the OR today for debridement of the groin lesons. Patient remains on Zosyn. 2. Pneumonia appears to be resolved. 3. Diabetes: Under good control. No changes today. 4. Leukocytosis: I appreciate recommendations from oncology. 5. Crohn's: Patient is not a candidate for immunosuppressive drugs at this time. 6. Hepatic ketoacidosis: Resolved. 7. Severe protein calorie malnutrition: Encouraging p.o. diet with supplements. 8. Hidradenitis of anus: Surgery is following. 9. Hypoxic brain injury: Continue Seroquel. 10. Chronic opioid use: Continue pain medications 11. Continue to supplement potassium as needed. 12. Hypernatremia, improving. 13. Hematuria, resolved. This was likely secondary to Landry trauma.
[2017-09-25] MEDS ORDERED: DIPHENHYDRAMINE HCL 50 MG/ML VIAL IV PRN (14:13)
[2017-09-25] MEDS ORDERED: FENTANYL CITRATE INJ/PF 100 MCG/2 ML AMPUL IV PRN ×3 (14:13)
[2017-09-25] MEDS ORDERED: PROMETHAZINE HCL INJ 25 MG/1 ML VIAL IV PRN ×2 (14:13)
[2017-09-25] MEDS ORDERED: OXYCODONE HCL IR 5 MG TABLET ONE (14:43)
--- NOTE | 2017-09-25 15:17 | Operative Report ---
Nonrecallable Operative Report DATE OF SURGERY: 09/25/17 PREOPERATIVE DIAGNOSIS: bilateral groin recurrent suppurative hydroadenitis POSTOPERATIVE DIAGNOSIS: same OPERATION: bilateral groin, sharp, full thickness debridment, down to fascia Right = 6x13 cm; Left = 11x6 cm SURGEON: NAHID UNDERWOOD ANESTHESIA: GA TISSUE REMOVED OR ALTERED: Right and left groin skin and subcutaneous tissue down to muscle fascia COMPLICATIONS: none ESTIMATED BLOOD LOSS: 40 mL INTRAOPERATIVE FINDINGS: both groins presented with scarred cutaneous and subcutaneous tissue and multiple superficial and deep pockets of purulent collection spred throughout the groin from symphisi spubis to the perianum PROCEDURE: see dictation
[2017-09-25] MEDS ORDERED: SUCCINYLCHOLINE CHLORIDE INJ 200 MG/10 ML VIAL ONE (15:33)
--- NOTE | 2017-09-25 16:24 | OPERATIVE REPORT E ---
Operative Report NAME: TIA VILLANUEVA : 1965 AGE: 51Y DATE OF SURGERY: 09/25/2017 ROOM: 308 PREOPERATIVE DIAGNOSIS: BILATERAL GROIN CHRONIC RECURRENT SUPPURATIVE HIDRADENITIS. POSTOPERATIVE DIAGNOSIS: BILATERAL GROIN CHRONIC RECURRENT SUPPURATIVE HIDRADENITIS. OPERATION: Wide debridement, sharp, down to muscle fascia of bilateral groin chronic recurrent suppurative hidradenitis, measuring 6 x 13 cm on the right, 11 x 6 cm on the left. SURGEON: NAHID UNDERWOOD M.D. ANESTHESIA: General. BOTTOM LOADER: None. ESTIMATED BLOOD LOSS: 40 mL. FLUIDS: 300. URINE OUTPUT: 200. COMPLICATIONS: None. DRAINS: None. INDICATIONS AND FINDINGS: This is a 51-year-old male with a history of diabetes mellitus, recently found comatose in his apartment and transferred to this hospital, where he required intubation for a long time. He finally was extubated and transferred to the floor. His recent physical exam revealed the presence of multiple purulent drainage sites at the level of either groin, extending to the perineum as well, which were originally from several areas of either groin. Because of the persistence of the drainage from several sites, located in multiple areas of the groin bilaterally, extending from the pubis down to the perineum and laterally to the upper portion of the inner thigh, the decision was made to excise in toto the scarred groin tissue containing the draining sites, so to perform an aggressive treatment of the draining area and to prevent recurrence of further infections. Procedure, risks, benefits and complications explained to the patient. He understood and decided to proceed. PROCEDURE: Patient brought to the operating room. Patient was placed in supine position. General anesthesia induced by endotracheal intubation. The patient was then placed in lithotomy position. Landry catheter was inserted. The scrotum was suspended with a 2-0 silk suture and both groins and upper thighs and perineum were prepped and draped in usual fashion. Each groin site was treated similarly. A surgical marker was used to outline the area to be excised, which was 6 x 13 cm on the right side and 11 x 6 cm on the left side. After this, with the use of Bovie, the skin was excised full-thickness, together with subcutaneous tissue down to fascia, so to remove all the scar tissue containing multiple draining sites. During the excision, several pockets of pus were identified on either side, and these were removed, together with the main specimen. After this was accomplished, local bleeders were either cauterized or suture ligated with 3-0 Vicryl suture. Then each site was irrigated with normal saline, covered with triple antibiotic ointment, Xeroform gauze, sterile dressings, tape, and surgical support underwear. The patient tolerated the procedure well, extubated and transferred to the recovery room in satisfactory condition. DICTATING PHYSICIAN: NAHID UNDERWOOD M.D. [id number] PHY#: [id number] ID: [id number] JOB#: [id number] ACCT: [id number] cc:NAHID UNDERWOOD M.D. > MTDD
[2017-09-25] MEDS: DEXTROSE 5%-1/2 NORMAL SALINE 1,000 ML IV PRN (17:06)
[2017-09-25] MEDS ORDERED: MAGNESIUM SULFATE/D5W 1 GM/100 ML RTUPB IV ONE (19:22)
[2017-09-25] MEDS: TAMSULOSIN HCL 0.4 MG CAP.SR.24H PO SCH (22:57)
[2017-09-25] MEDS: QUETIAPINE FUMARATE 25 MG TABLET PO SCH (22:57)
[2017-09-26] MEDS: OXYCODONE HCL IR 5 MG TABLET PO PRN ×4 (03:56→23:26)
[2017-09-26] MEDS: DILTIAZEM HCL 60 MG TABLET PO SCH ×3 (03:56→18:04)
[2017-09-26 06:55] LABS: HEMATOCRIT 26.6 % (37.9-51.0); HEMOGLOBIN 8.6 g/dL (13.5-17.0); MEAN CORPUSCULAR HEMOGLOBIN 25.6 pg (27.0-33.4); MEAN CORPUSCULAR HGB CONC 32.3 g/dL (32.0-36.0); MEAN CORPUSCULAR VOLUME 79 fl (80-97); PLATELET COUNT 646 10^3/uL (150-450); RED BLOOD COUNT 3.35 10^6/uL (4.35-5.55); RED CELL DISTRIBUTION WIDTH 18.5 % (11.5-14.0); WHITE BLOOD COUNT 28.2 10^3/uL (4.0-10.5)
[2017-09-26 07:11] LABS: APPEARANCE,URINE SLIGHTLY-CLOUDY; BILIRUBIN,URINE NEGATIVE (NEGATIVE); COLOR,URINE YELLOW; GLUCOSE, URINE NEGATIVE (NEGATIVE); KETONES,URINE NEGATIVE (NEGATIVE); LEUKOCYTE ESTERASE,URINE MODERATE (NEGATIVE); NITRITE,URINE NEGATIVE (NEGATIVE); PROTEIN,URINE NEGATIVE (NEGATIVE); URINE SPECIFIC GRAVITY 1.008; UROBILINOGEN,URINE NEGATIVE mg/dL (<2.0)
[2017-09-26 07:50] LABS: ANION GAP 7 (5-19); BLOOD UREA NITROGEN 7 mg/dL (7-20); CALCIUM 8.1 mg/dL (8.4-10.2); CARBON DIOXIDE 28 mmol/L (22-30); CHLORIDE 102 mmol/L (98-107); GLUCOSE 120 mg/dL (75-110); PHOSPHORUS 4.1 mg/dL (2.5-4.5); POTASSIUM 3.4 mmol/L (3.6-5.0); SODIUM 137.2 mmol/L (137-145)
--- NOTE | 2017-09-26 08:02 | PDOC PROGRESS REPORT ---
Subjective Progress Note for:: 09/26/17 Subjective:: No acute changes overnight. Reason For Visit: DKA, SEPSIS Physical Exam Vital Signs: Temp Pulse Resp BP Pulse Ox 99.7 F 99 20 129/75 H 99 09/26/17 03:35 09/26/17 03:35 09/26/17 03:35 09/26/17 03:35 09/26/17 03:35 Intake & Output 09/25/17 09/26/17 09/27/17 06:59 06:59 06:59 Intake Total 4338 2770 Output Total 3800 4140 Balance 538 -1370 Weight 57.4 kg 56 kg General appearance: PRESENT: no acute distress, well-developed, well-nourished Head exam: PRESENT: atraumatic, normocephalic Eye exam: PRESENT: conjunctiva pink, EOMI, PERRLA. ABSENT: scleral icterus Ear exam: PRESENT: normal external ear exam Mouth exam: PRESENT: moist, tongue midline Neck exam: ABSENT: carotid bruit, JVD, lymphadenopathy, thyromegaly Respiratory exam: PRESENT: clear to auscultation [place]. ABSENT: rales, rhonchi, wheezes Cardiovascular exam: PRESENT: RRR. ABSENT: diastolic murmur, rubs, systolic murmur Pulses: PRESENT: normal dorsalis pedis pul Vascular exam: PRESENT: normal capillary refill GI/Abdominal exam: PRESENT: normal bowel sounds, soft. ABSENT: distended, guarding, mass, organolmegaly, rebound, tenderness Rectal exam: PRESENT: deferred Extremities exam: PRESENT: full ROM. ABSENT: calf tenderness, clubbing, pedal edema Neurological exam: PRESENT: alert, awake, oriented to person, oriented to place , oriented to time, oriented to situation, CN II-XII grossly intact. ABSENT: motor sensory deficit Psychiatric exam: PRESENT: appropriate affect, normal mood. ABSENT: homicidal ideation, suicidal ideation Skin exam: PRESENT: dry, intact, warm. ABSENT: cyanosis, rash Results Laboratory Results: 09/26/17 06:20 09/26/17 06:20 09/25/17 09/26/17 09/26/17 06:15 06:20 06:20 WBC 28.2 H RBC 3.35 L Hgb 8.6 L Hct 26.6 L MCV 79 L MCH 25.6 L MCHC 32.3 RDW 18.5 H Plt Count 646 H Sodium 139.4 Potassium 2.9 L* Chloride 102 Carbon Dioxide 32 H Anion Gap 5 BUN 9 Creatinine 0.79 Est GFR ( Amer) > 60 Est GFR (Non-Af Amer) > 60 Glucose 121 H Calcium 8.0 L Phosphorus 4.1 Magnesium 1.2 L* Vitamin B12 892.0 Folate 11.20 Urine Color Urine Appearance Urine pH Ur Specific [place] Urine Protein Urine Glucose (UA) Urine Ketones Urine Blood Urine Nitrite Ur Leukocyte Esterase Urine WBC (Auto) Urine RBC (Auto) Stool Occult Blood NEGATIVE 09/26/17 09/26/17 06:20 06:20 WBC RBC Hgb Hct MCV MCH MCHC RDW Plt Count Sodium 137.2 Potassium 3.4 L Chloride 102 Carbon Dioxide 28 Anion Gap 7 BUN 7 Creatinine 0.75 Est GFR ( Amer) > 60 Est GFR (Non-Af Amer) > 60 Glucose 120 H Calcium 8.1 L Phosphorus 4.1 Magnesium 1.9 Vitamin B12 Folate Urine Color YELLOW Urine Appearance SLIGHTLY-CLOUDY Urine pH 6.0 Ur Specific [place] 1.008 Urine Protein NEGATIVE Urine Glucose (UA) NEGATIVE Urine Ketones NEGATIVE Urine Blood MODERATE H Urine Nitrite NEGATIVE Ur Leukocyte Esterase MODERATE H Urine WBC (Auto) 32 Urine RBC (Auto) 25 Stool Occult Blood 09/20/17 15:36 Blood Blood Culture - Final NO GROWTH IN 5 DAYS 09/20/17 14:38 Blood Blood Culture - Final NO GROWTH IN 5 DAYS 08/24/17 08/24/17 08/25/17 18:00 22:00 05:15 Creatine Kinase 140 117 82 CK-MB (CK-2) Troponin I NT-Pro-B Natriuret Pep 09/02/17 09/02/17 09/03/17 17:45 17:45 05:35 Creatine Kinase 50 L CK-MB (CK-2) 0.40 Troponin I 0.027 NT-Pro-B Natriuret Pep 4690 H Impressions: Thoracic Spine CT 08/26/17 08:00 IMPRESSION: No acute findings in the thoracic spine. Abdomen/Pelvis CT 08/27/17 00:00 IMPRESSION: 1. Extensive basilar pulmonary changes suggesting pneumonia. 2. No evidence of intra- abdominal or intrapelvic abscess or drainable collection. Postoperative changes as above without evidence of mechanical bowel obstruction. 3. Marked irregular soft tissue loss in the proximal left posterior and medial thigh, incompletely assessed. No suggestion of regional drainable collection as imaged. Chest X-Ray 09/13/17 00:00 IMPRESSION: NO ACUTE RADIOGRAPHIC FINDING IN THE CHEST. Assessment & Plan - Diagnosis (1) Leukocytosis Qualifiers: Leukocytosis type: bandemia Qualified Code(s): D72.825 - Bandemia Is this a current diagnosis for this admission?: Yes Plan: We have flow cytometry back so far, no abnormality noted, so this supports reactive process, awaiting FISH for BCR/ABL to r/o CML but doubt this will ultimately be positive, will take 10-14 days more to get that back most likely, will follow peripherally until that returns
[2017-09-26 08:06] LABS: ABSOLUTE LYMPHOCYTES# (MANUAL) 3.7 10^3/uL (0.5-4.7); ABSOLUTE MONOCYTES # (MANUAL) 1.4 10^3/uL (0.1-1.4); ABSOLUTE NEUTROPHILS# (MANUAL) 23.1 10^3/uL (1.7-8.2); ANISOCYTOSIS 2+; BASOPHILS % (MANUAL) 0 % (0-2); EOSINOPHILS % (MANUAL) 0 % (0-6); LYMPHOCYTES % (MANUAL) 13 % (13-45); MONOCYTES % (MANUAL) 5 % (3-13); PLATELET COMMENT INCREASED; PLATELET LARGE PRESENT; SEGMENTED NEUTROPHILS % (MAN) 82 % (42-78); TOTAL CELLS COUNTED 100
[2017-09-26 08:07] LABS: TARGET CELLS SLIGHT; TOXIC GRANULATION 1+; TOXIC VACUOLATION PRESENT
[2017-09-26 08:08] LABS: HYPOCHROMASIA 1+
[2017-09-26] MEDS: INSULIN LISPRO 100 UNIT/ML 3 ML VIAL SUBCUT PRN ×2 (08:26→12:06)
[2017-09-26] MEDS: DEXTROSE 5%-1/2 NORMAL SALINE 1,000 ML IV PRN ×2 (08:35→22:09)
[2017-09-26] MEDS: FAMOTIDINE 20 MG TABLET PO SCH ×2 (09:43→22:11)
[2017-09-26] MEDS: FINASTERIDE 5 MG TABLET PO SCH (09:43)
[2017-09-26] MEDS: DULOXETINE HCL 30 MG CAPSULE.DR PO SCH ×2 (09:43→22:11)
[2017-09-26] MEDS: MORPHINE SULFATE SR 100 MG TABLET PO SCH ×2 (09:43→22:11)
[2017-09-26] MEDS: ENOXAPARIN SODIUM INJ 40 MG/0.4 ML DISP.SYRIN SUBCUT SCH (09:44)
[2017-09-26] MEDS: MULTIVITAMINS W-IRON TABLET, CHEWABLE PO SCH (09:44)
[2017-09-26] MEDS: COLLAGENASE CLOSTRIDIUM HIST. OINT 30 GM TOP PRN ×2 (09:45→22:16)
[2017-09-26] MEDS: ONDANSETRON 4 MG TAB.RAPDIS PO PRN (09:47)
[2017-09-26] MEDS ORDERED: POTASSIUM CHLORIDE 10 MEQ TABLET.SA PO ONE (11:31)
--- NOTE | 2017-09-26 11:59 | PDOC PROGRESS REPORT ---
Subjective Progress Note for:: 09/26/17 Subjective:: The patient is a 51-year-old male who presented with sepsis and DKA. The patient has a history of severe perineal hidradenitis suppurativa. He presented with a large groin abscess in the left groin, perineum, and left posterior upper thigh. On 08/24/17 he was emergently taken to surgery for drainage of this chronic abscess. His respiratory status declined later during the evening of 08/24/17 and he was intubated. On 08/25/2017 the patient was taken back to the operating room to undergo additional debridement. Since admission the patient has developed a sacral decubitus ulcer. The patient underwent debridement of the sacral ulcer on September 24, 2017. This was done at the bedside by general surgery. Yesterday, general surgery was evaluating the patient's wounds. The patient was noted to have pus draining from both of his groin wounds. Therefore, the patient was taken back to the operating room for extensive surgical debridement. He did well with this yesterday. The patient has a persistently elevated white blood cell count. For this reason hematology oncology was consulted. According to the note from Dr. Ruben Estrada this morning the flow cytometry thus far is negative. It will take an additional 14 days to get FISH analysis back but the likelihood of leukemia is small. Reason For Visit: DKA, SEPSIS Physical Exam Vital Signs: Temp Pulse Resp BP Pulse Ox 99.5 F 100 14 109/63 99 09/26/17 07:53 09/26/17 07:53 09/26/17 07:53 09/26/17 07:53 09/26/17 07:53 Intake & Output 09/25/17 09/26/17 09/27/17 06:59 06:59 06:59 Intake Total 4338 2770 Output Total 3800 4140 Balance 538 -1370 Weight 57.4 kg 56 kg Additional comments: The patient appears to be his stated age. He is thin with evidence of temporal wasting and chronic malnutrition. However, his cognition and mentation appear to be normal at this time. In addition, his lethargy appears to be resolving. His facial appearance is unremarkable except for the right pinna of his ear. He does have some skin breakdown there. This appears to be stable. His lungs are clear to auscultation bilaterally. His cardiac exam is regular without murmurs, gallops or rubs. The abdomen is soft and flat. Bowel sounds are present. The patient has stool in his colostomy bag. The site looks clean dry and intact. The lower extremities are unremarkable. He is noted to have a significant amount of muscle atrophy throughout. He moves all 4 extremities well. Results Laboratory Results: 09/26/17 06:20 09/26/17 06:20 09/26/17 09/26/17 09/26/17 06:20 06:20 06:20 WBC 28.2 H RBC 3.35 L Hgb 8.6 L Hct 26.6 L MCV 79 L MCH 25.6 L MCHC 32.3 RDW 18.5 H Plt Count 646 H Seg Neutrophils % Not Reportable Lymphocytes % Not Reportable Monocytes % Not Reportable Eosinophils % Not Reportable Basophils % Not Reportable Absolute Neutrophils Not Reportable Absolute Lymphocytes Not Reportable Absolute Monocytes Not Reportable Absolute Eosinophils Not Reportable Absolute Basophils Not Reportable Sodium 137.2 Potassium 3.4 L Chloride 102 Carbon Dioxide 28 Anion Gap 7 BUN 7 Creatinine 0.75 Est GFR ( Amer) > 60 Est GFR (Non-Af Amer) > 60 Glucose 120 H Calcium 8.1 L Phosphorus 4.1 Magnesium 1.9 Urine Color Urine Appearance Urine pH Ur Specific [place] Urine Protein Urine Glucose (UA) Urine Ketones Urine Blood Urine Nitrite Ur Leukocyte Esterase Urine WBC (Auto) Urine RBC (Auto) Stool Occult Blood NEGATIVE 09/26/17 06:20 WBC RBC Hgb Hct MCV MCH MCHC RDW Plt Count Seg Neutrophils % Lymphocytes % Monocytes % Eosinophils % Basophils % Absolute Neutrophils Absolute Lymphocytes Absolute Monocytes Absolute Eosinophils Absolute Basophils Sodium Potassium Chloride Carbon Dioxide Anion Gap BUN Creatinine Est GFR ( Amer) Est GFR (Non-Af Amer) Glucose Calcium Phosphorus Magnesium Urine Color YELLOW Urine Appearance SLIGHTLY-CLOUDY Urine pH 6.0 Ur Specific [place] 1.008 Urine Protein NEGATIVE Urine Glucose (UA) NEGATIVE Urine Ketones NEGATIVE Urine Blood MODERATE H Urine Nitrite NEGATIVE Ur Leukocyte Esterase MODERATE H Urine WBC (Auto) 32 Urine RBC (Auto) 25 Stool Occult Blood 09/20/17 15:36 Blood Blood Culture - Final NO GROWTH IN 5 DAYS 09/20/17 14:38 Blood Blood Culture - Final NO GROWTH IN 5 DAYS 08/24/17 08/24/17 08/25/17 18:00 22:00 05:15 Creatine Kinase 140 117 82 CK-MB (CK-2) Troponin I NT-Pro-B Natriuret Pep 09/02/17 09/02/17 09/03/17 17:45 17:45 05:35 Creatine Kinase 50 L CK-MB (CK-2) 0.40 Troponin I 0.027 NT-Pro-B Natriuret Pep 4690 H Impressions: Thoracic Spine CT 08/26/17 08:00 IMPRESSION: No acute findings in the thoracic spine. Abdomen/Pelvis CT 08/27/17 00:00 IMPRESSION: 1. Extensive basilar pulmonary changes suggesting pneumonia. 2. No evidence of intra- abdominal or intrapelvic abscess or drainable collection. Postoperative changes as above without evidence of mechanical bowel obstruction. 3. Marked irregular soft tissue loss in the proximal left posterior and medial thigh, incompletely assessed. No suggestion of regional drainable collection as imaged. Chest X-Ray 09/13/17 00:00 IMPRESSION: NO ACUTE RADIOGRAPHIC FINDING IN THE CHEST. Assessment & Plan - Diagnosis (1) Diabetic keto-acidosis Qualifiers: Diabetes mellitus type: type 1 Diabetes mellitus complication detail: with coma Qualified Code(s): E10.11 - Type 1 diabetes mellitus with ketoacidosis with coma Is this a current diagnosis for this admission?: Yes (2) Hypothermia Qualifiers: Encounter type: subsequent encounter Qualified Code(s): T68.XXXD - Hypothermia, subsequent encounter Is this a current diagnosis for this admission?: Yes (3) Severe protein-calorie malnutrition Is this a current diagnosis for this admission?: Yes (4) Groin abscess Is this a current diagnosis for this admission?: Yes (5) Laceration of skin overlying spine Is this a current diagnosis for this admission?: Yes (6) Abscess or cellulitis of perineum Is this a current diagnosis for this admission?: Yes (7) CHRONIC PERINEAL inflammation Is this a current diagnosis for this admission?: Yes (8) Crohns disease Qualifiers: Gastrointestinal tract location: unspecified location Is this a current diagnosis for this admission?: Yes (9) Diabetes mellitus Qualifiers: Diabetes mellitus type: type 1 Diabetes mellitus complication status: with unspecified complications Qualified Code(s): E10.8 - Type 1 diabetes mellitus with unspecified complications Is this a current diagnosis for this admission?: Yes (10) Sepsis Qualifiers: Sepsis type: sepsis due to unspecified organism Qualified Code(s): A41.9 - Sepsis, unspecified organism Is this a current diagnosis for this admission?: Yes (11) Euthyroid sick syndrome Is this a current diagnosis for this admission?: Yes (12) Acute respiratory failure with hypoxia Is this a current diagnosis for this admission?: Yes (13) Septic shock Is this a current diagnosis for this admission?: No (14) Pneumonia Qualifiers: Laterality: bilateral Lung location: unspecified part of lung Is this a current diagnosis for this admission?: Yes - Time Time Spent with patient: 25-34 minutes - Inpatient Certification Medical Necessity: Significant Comorbidiites Make Outpatient Treatment Too Risky , Need Close Monitoring Due to Risk of Patient Decompensation, Need for IV Antibiotics, Need for Surgery, Risk of Complication if Not Cared For in Hospital - Plan Summary Plan Summary: 1. Surgery is continuing to follow the patient for abscess of perineum, back and heels. He went back to the OR yesterday for further debridement of the groin lesons. Patient remains on Zosyn. 2. Pneumonia appears to be resolved. 3. Diabetes: Under good control. No changes today. 4. Leukocytosis: I appreciate recommendations from oncology. The chance of leukemia is small. 5. Crohn's: Patient is not a candidate for immunosuppressive drugs at this time. 6. Hepatic ketoacidosis: Resolved. 7. Severe protein calorie malnutrition: Encouraging p.o. diet with supplements. 8. Hidradenitis of anus: Surgery is following. 9. Hypoxic brain injury: Continue Seroquel. Patient appears clinically improved. 10. Chronic opioid use: Continue pain medications 11. Continue to supplement potassium as needed. 12. Hypernatremia, improving. 13. Hematuria, resolved. This was likely secondary to [place] trauma.
[2017-09-26] MEDS ORDERED: DEXTROSE 50%-WATER 25 GM/50 ML DISP.SYRIN IV ONE (13:59)
[2017-09-26] MEDS ORDERED: DEXTROSE 40% GEL 15 GM TUBE X 2 PO PRN (15:44)
[2017-09-26] MEDS ORDERED: GLUCAGON,HUMAN RECOMB 1 MG INJ IM PRN (15:44)
[2017-09-26] MEDS ORDERED: DEXTROSE 50%-WATER SYRINGE 25 GM/50 ML DOSE IV PRN (15:44)
[2017-09-26] MEDS ORDERED: DEXTROSE 50%-WATER SYRINGE 12.5 GM/25 ML DOSE IV PRN (15:44)
[2017-09-26] MEDS ORDERED: DEXTROSE 40% GEL 15 GM TUBE PO PRN (15:44)
[2017-09-26] MEDS: PIPERACILLIN SODIUM/TAZOBACTAM 4.5 GM in NORMAL SALINE 100 ML IV SCH ×2 (15:55→22:05)
[2017-09-26] MEDS: NYSTATIN 500000 UNIT/5 ML UDCUP PO SCH ×2 (18:05→22:13)
--- NOTE | 2017-09-26 21:56 | PDOC PROGRESS REPORT ---
Subjective Reason For Visit: DKA, SEPSIS Patient is no complaint Physical Exam Vital Signs: Temp Pulse Resp BP Pulse Ox 99.6 F 96 20 99/61 L 99 09/26/17 19:28 09/26/17 19:28 09/26/17 19:28 09/26/17 19:28 09/26/17 19:28 Intake & Output 09/25/17 09/26/17 09/27/17 06:59 06:59 06:59 Intake Total 4338 2770 1468 Output Total 3800 4140 1400 Balance 538 -1370 68 Weight 57.4 kg 56 kg Musculoskeletal exam: PRESENT: other - Groin dressings removed. Wounds are fairly clean; there is some cellular slough, drainage and debris; nothing requiring operative drainage tonight Results Laboratory Results: 09/26/17 06:20 09/26/17 06:20 09/26/17 09/26/17 09/26/17 06:20 06:20 06:20 WBC 28.2 H RBC 3.35 L Hgb 8.6 L Hct 26.6 L MCV 79 L MCH 25.6 L MCHC 32.3 RDW 18.5 H Plt Count 646 H Seg Neutrophils % Not Reportable Lymphocytes % Not Reportable Monocytes % Not Reportable Eosinophils % Not Reportable Basophils % Not Reportable Absolute Neutrophils Not Reportable Absolute Lymphocytes Not Reportable Absolute Monocytes Not Reportable Absolute Eosinophils Not Reportable Absolute Basophils Not Reportable Sodium 137.2 Potassium 3.4 L Chloride 102 Carbon Dioxide 28 Anion Gap 7 BUN 7 Creatinine 0.75 Est GFR ( Amer) > 60 Est GFR (Non-Af Amer) > 60 Glucose 120 H Calcium 8.1 L Phosphorus 4.1 Magnesium 1.9 Urine Color Urine Appearance Urine pH Ur Specific [place] Urine Protein Urine Glucose (UA) Urine Ketones Urine Blood Urine Nitrite Ur Leukocyte Esterase Urine WBC (Auto) Urine RBC (Auto) Stool Occult Blood NEGATIVE 09/26/17 06:20 WBC RBC Hgb Hct MCV MCH MCHC RDW Plt Count Seg Neutrophils % Lymphocytes % Monocytes % Eosinophils % Basophils % Absolute Neutrophils Absolute Lymphocytes Absolute Monocytes Absolute Eosinophils Absolute Basophils Sodium Potassium Chloride Carbon Dioxide Anion Gap BUN Creatinine Est GFR ( Amer) Est GFR (Non-Af Amer) Glucose Calcium Phosphorus Magnesium Urine Color YELLOW Urine Appearance SLIGHTLY-CLOUDY Urine pH 6.0 Ur Specific [place] 1.008 Urine Protein NEGATIVE Urine Glucose (UA) NEGATIVE Urine Ketones NEGATIVE Urine Blood MODERATE H Urine Nitrite NEGATIVE Ur Leukocyte Esterase MODERATE H Urine WBC (Auto) 32 Urine RBC (Auto) 25 Stool Occult Blood 08/24/17 08/24/17 08/25/17 18:00 22:00 05:15 Creatine Kinase 140 117 82 CK-MB (CK-2) Troponin I NT-Pro-B Natriuret Pep 09/02/17 09/02/17 09/03/17 17:45 17:45 05:35 Creatine Kinase 50 L CK-MB (CK-2) 0.40 Troponin I 0.027 NT-Pro-B Natriuret Pep 4690 H Impressions: Thoracic Spine CT 08/26/17 08:00 IMPRESSION: No acute findings in the thoracic spine. Abdomen/Pelvis CT 08/27/17 00:00 IMPRESSION: 1. Extensive basilar pulmonary changes suggesting pneumonia. 2. No evidence of intra- abdominal or intrapelvic abscess or drainable collection. Postoperative changes as above without evidence of mechanical bowel obstruction. 3. Marked irregular soft tissue loss in the proximal left posterior and medial thigh, incompletely assessed. No suggestion of regional drainable collection as imaged. Chest X-Ray 09/13/17 00:00 IMPRESSION: NO ACUTE RADIOGRAPHIC FINDING IN THE CHEST. Assessment & Plan - Diagnosis (1) Groin abscess Is this a current diagnosis for this admission?: Yes Plan: Patient is one day status post vigorous debridement of groin wounds; sepsis coming under control but not resolved her graft Recommendations: 1. We will switch from bacitracin to Santyl 2. Continue aggressive local wound care with dressing changes.
[2017-09-26] MEDS: TAMSULOSIN HCL 0.4 MG CAP.SR.24H PO SCH (22:10)
[2017-09-26] MEDS: QUETIAPINE FUMARATE 25 MG TABLET PO SCH (22:11)
--- NOTE | 2017-09-26 23:32 | EKG REPORT ---
SEVERITY:- ABNORMAL ECG - SINUS RHYTHM CONSIDER ANTEROSEPTAL INFARCT BORDERLINE T ABNORMALITIES, INFERIOR LEADS : Confirmed by: Taylor Jackson 26-Sep-2017 23:31:43
[2017-09-27] MEDS: DILTIAZEM HCL 60 MG TABLET PO SCH ×3 (02:29→17:20)
[2017-09-27] MEDS: PIPERACILLIN SODIUM/TAZOBACTAM 4.5 GM in NORMAL SALINE 100 ML IV SCH ×4 (02:33→20:12)
[2017-09-27 05:38] LABS: HEMATOCRIT 24.1 % (37.9-51.0); MEAN CORPUSCULAR HEMOGLOBIN 26.1 pg (27.0-33.4); MEAN CORPUSCULAR HGB CONC 32.7 g/dL (32.0-36.0); MEAN CORPUSCULAR VOLUME 80 fl (80-97); PLATELET COUNT 653 10^3/uL (150-450); RED BLOOD COUNT 3.02 10^6/uL (4.35-5.55); RED CELL DISTRIBUTION WIDTH 19.1 % (11.5-14.0); WHITE BLOOD COUNT 22.1 10^3/uL (4.0-10.5)
[2017-09-27 05:56] LABS: ANION GAP 8 (5-19); BLOOD UREA NITROGEN 9 mg/dL (7-20); CARBON DIOXIDE 29 mmol/L (22-30); CHLORIDE 102 mmol/L (98-107); GLUCOSE 106 mg/dL (75-110); PHOSPHORUS 3.5 mg/dL (2.5-4.5); POTASSIUM 3.5 mmol/L (3.6-5.0); SODIUM 138.8 mmol/L (137-145)
[2017-09-27 06:01] LABS: ABSOLUTE LYMPHOCYTES# (MANUAL) 4.9 10^3/uL (0.5-4.7); ABSOLUTE MONOCYTES # (MANUAL) 1.5 10^3/uL (0.1-1.4); ABSOLUTE NEUTROPHILS# (MANUAL) 14.6 10^3/uL (1.7-8.2); BASOPHILS % (MANUAL) 0 % (0-2); EOSINOPHILS % (MANUAL) 5 % (0-6); LYMPHOCYTES % (MANUAL) 22 % (13-45); MONOCYTES % (MANUAL) 7 % (3-13); SEGMENTED NEUTROPHILS % (MAN) 66 % (42-78); TOTAL CELLS COUNTED 100
[2017-09-27 06:05] LABS: ANISOCYTOSIS 2+; OVALOCYTES SLIGHT; POIKILOCYTOSIS SLIGHT
[2017-09-27 06:06] LABS: PLATELET COMMENT INCREASED; PLATELET LARGE PRESENT; TARGET CELLS 1+
[2017-09-27 06:07] LABS: HEMOGLOBIN 7.9 g/dL (13.5-17.0)
[2017-09-27] MEDS: OXYCODONE HCL IR 5 MG TABLET PO PRN ×3 (08:04→20:10)
--- NOTE | 2017-09-27 08:36 | PDOC PROGRESS REPORT ---
Subjective Progress Note for:: 09/27/17 Subjective:: Pt states that he is thristy. Pt states that he is doing ok this morning. Nursing states that pt's hemoglobin has decreased from yesterday. Nursing states that pt was given a transfusion of 2 units of PRBCs last week. Nursing states that pt had larger area of debridement. Reason For Visit: DKA, SEPSIS Physical Exam Vital Signs: Temp Pulse Resp BP Pulse Ox 98.7 F 85 13 99/67 L 100 09/27/17 03:49 09/27/17 07:00 09/27/17 03:49 09/27/17 03:49 09/27/17 03:49 Intake & Output 09/26/17 09/27/17 09/28/17 06:59 06:59 06:59 Intake Total 2770 3867 Output Total 4140 3280 Balance -1370 587 Weight 56 kg 59.5 kg General appearance: PRESENT: no acute distress, thin, well-developed Head exam: PRESENT: atraumatic, normocephalic Eye exam: PRESENT: conjunctiva pink, EOMI. ABSENT: scleral icterus Ear exam: PRESENT: normal external ear exam Mouth exam: PRESENT: moist, tongue midline Neck exam: ABSENT: carotid bruit, JVD, lymphadenopathy, thyromegaly Respiratory exam: PRESENT: clear to auscultation [place]. ABSENT: rales, rhonchi, wheezes Cardiovascular exam: PRESENT: RRR. ABSENT: diastolic murmur, rubs, systolic murmur Pulses: PRESENT: normal dorsalis pedis pul Vascular exam: PRESENT: normal capillary refill GI/Abdominal exam: PRESENT: normal bowel sounds, soft. ABSENT: distended, guarding, mass, organolmegaly, rebound, tenderness Rectal exam: PRESENT: deferred Extremities exam: PRESENT: other - + muscle wasting in all 4 ext Musculoskeletal exam: PRESENT: full ROM Neurological exam: PRESENT: alert, awake, oriented to person, oriented to place , oriented to time, oriented to situation, CN II-XII grossly intact. ABSENT: motor sensory deficit Psychiatric exam: PRESENT: appropriate affect, normal mood. ABSENT: homicidal ideation, suicidal ideation Skin exam: PRESENT: dry, intact, warm. ABSENT: cyanosis, rash Results Laboratory Results: 09/27/17 04:55 09/27/17 04:55 09/27/17 09/27/17 04:55 04:55 WBC 22.1 H RBC 3.02 L Hgb 7.9 L Hct 24.1 L MCV 80 MCH 26.1 L MCHC 32.7 RDW 19.1 H Plt Count 653 H Seg Neutrophils % Not Reportable Lymphocytes % Not Reportable Monocytes % Not Reportable Eosinophils % Not Reportable Basophils % Not Reportable Absolute Neutrophils Not Reportable Absolute Lymphocytes Not Reportable Absolute Monocytes Not Reportable Absolute Eosinophils Not Reportable Absolute Basophils Not Reportable Sodium 138.8 Potassium 3.5 L Chloride 102 Carbon Dioxide 29 Anion Gap 8 BUN 9 Creatinine 0.83 Est GFR ( Amer) > 60 Est GFR (Non-Af Amer) > 60 Glucose 106 Calcium 8.0 L Phosphorus 3.5 Magnesium 1.7 08/24/17 08/24/17 08/25/17 18:00 22:00 05:15 Creatine Kinase 140 117 82 CK-MB (CK-2) Troponin I NT-Pro-B Natriuret Pep 09/02/17 09/02/17 09/03/17 17:45 17:45 05:35 Creatine Kinase 50 L CK-MB (CK-2) 0.40 Troponin I 0.027 NT-Pro-B Natriuret Pep 4690 H Impressions: Thoracic Spine CT 08/26/17 08:00 IMPRESSION: No acute findings in the thoracic spine. Abdomen/Pelvis CT 08/27/17 00:00 IMPRESSION: 1. Extensive basilar pulmonary changes suggesting pneumonia. 2. No evidence of intra- abdominal or intrapelvic abscess or drainable collection. Postoperative changes as above without evidence of mechanical bowel obstruction. 3. Marked irregular soft tissue loss in the proximal left posterior and medial thigh, incompletely assessed. No suggestion of regional drainable collection as imaged. Chest X-Ray 09/13/17 00:00 IMPRESSION: NO ACUTE RADIOGRAPHIC FINDING IN THE CHEST. Assessment & Plan - Diagnosis (1) Anemia Is this a current diagnosis for this admission?: Yes Plan: Multifactorial: Will continue to monitor. Anemia most likely worsened by debridement. (2) Hypokalemia Is this a current diagnosis for this admission?: Yes Plan: Will give additional potassium replacement. Will also give additional magnesium. (3) Abscess or cellulitis of perineum Is this a current diagnosis for this admission?: Yes Plan: S/P Debridement: Will continue Zosyn. Wound Culture demonstrating Gram neg rods. (4) Crohns disease Qualifiers: Gastrointestinal tract location: unspecified location Is this a current diagnosis for this admission?: Yes Plan: Appreciate GI evaluating pt. (5) Diabetes mellitus Qualifiers: Diabetes mellitus type: type 1 Diabetes mellitus complication status: with unspecified complications Qualified Code(s): E10.8 - Type 1 diabetes mellitus with unspecified complications Is this a current diagnosis for this admission?: Yes Plan: Continue current treatment plan. (6) Pneumonia Qualifiers: Laterality: bilateral Lung location: unspecified part of lung Is this a current diagnosis for this admission?: Yes Plan: Resolved (7) Leukocytosis Qualifiers: Leukocytosis type: bandemia Qualified Code(s): D72.825 - Bandemia Is this a current diagnosis for this admission?: Yes Plan: Secondary to Multifactorial Causes ie Crohns, chronic wounds: will continue to evaluate. (8) Hypotension Qualifiers: Hypotension type: other hypotension type Qualified Code(s): I95.89 - Other hypotension Is this a current diagnosis for this admission?: Yes Plan: Resolved. (9) Diabetic keto-acidosis Qualifiers: Diabetes mellitus type: type 1 Diabetes mellitus complication detail: with coma Qualified Code(s): E10.11 - Type 1 diabetes mellitus with ketoacidosis with coma Is this a current diagnosis for this admission?: Yes Plan: Resolved. (10) Severe protein-calorie malnutrition Is this a current diagnosis for this admission?: Yes Plan: Will encourage PO intake and continue supplemental drink. (11) Hidradenitis suppurativa of anus Is this a current diagnosis for this admission?: Yes Plan: S/P Debridement: Will continue current Zosyn. (12) Hypoxic brain injury Is this a current diagnosis for this admission?: Yes Plan: Resolved. (13) Diabetic neuropathy Qualifiers: Diabetes mellitus type: type 1 Diabetes mellitus complication detail: diabetic polyneuropathy Qualified Code(s): E10.42 - Type 1 diabetes mellitus with diabetic polyneuropathy Is this a current diagnosis for this admission?: Yes Plan: Supportive of care. (14) Chronic pain Qualifiers: Chronic pain type: chronic pain syndrome Qualified Code(s): G89.4 - Chronic pain syndrome Is this a current diagnosis for this admission?: Yes Plan: Will continue pain medications. (15) Opioid dependence in controlled environment Is this a current diagnosis for this admission?: Yes Plan: Will continue pain medication. (16) Hypercalcemia due to immobilization Is this a current diagnosis for this admission?: Yes Plan: Resolved (17) Hypomagnesemia Is this a current diagnosis for this admission?: Yes Plan: Will given magnesium replacement. Will check magnesium level in the a.m. (18) Hematuria Is this a current diagnosis for this admission?: Yes Plan: Secondary to Trauma: Resolved. (19) Hypernatremia Is this a current diagnosis for this admission?: Yes Plan: resolved. (20) DVT prophylaxis Is this a current diagnosis for this admission?: Yes Plan: Lovenox - Time Time Spent with patient: 15-24 minutes
[2017-09-27] MEDS: MAGNESIUM SULFATE/D5W 1 GM/100 ML RTUPB IV SCH ×2 (08:49→10:14)
[2017-09-27] MEDS ORDERED: POTASSIUM CHLORIDE 10 MEQ TABLET.SA PO ONE (09:00)
[2017-09-27] MEDS: NYSTATIN 500000 UNIT/5 ML UDCUP PO SCH ×4 (09:27→22:07)
[2017-09-27] MEDS: MULTIVITAMINS W-IRON TABLET, CHEWABLE PO SCH (10:08)
[2017-09-27] MEDS: MORPHINE SULFATE SR 100 MG TABLET PO SCH ×2 (10:08→22:04)
[2017-09-27] MEDS: DULOXETINE HCL 30 MG CAPSULE.DR PO SCH ×2 (10:08→22:04)
[2017-09-27] MEDS: FINASTERIDE 5 MG TABLET PO SCH (10:09)
[2017-09-27] MEDS: FAMOTIDINE 20 MG TABLET PO SCH ×2 (10:09→22:05)
[2017-09-27] MEDS: ENOXAPARIN SODIUM INJ 40 MG/0.4 ML DISP.SYRIN SUBCUT SCH (10:09)
[2017-09-27] MEDS: COLLAGENASE CLOSTRIDIUM HIST. OINT 30 GM TOP PRN ×2 (10:10→22:13)
--- NOTE | 2017-09-27 15:18 | PDOC PROGRESS REPORT ---
Subjective Progress Note for:: 09/27/17 Subjective:: comfortable, sleeping Reason For Visit: DKA, SEPSIS Physical Exam Vital Signs: Temp Pulse Resp BP Pulse Ox 98.6 F 90 20 98/64 L 100 09/27/17 12:00 09/27/17 12:00 09/27/17 12:00 09/27/17 12:00 09/27/17 12:00 Intake & Output 09/26/17 09/27/17 09/28/17 06:59 06:59 06:59 Intake Total 2770 3867 Output Total 4140 3280 1450 Balance -1370 587 -1450 Weight 56 kg 59.5 kg Skin exam: PRESENT: other - Bilateral grion wounds = granulating, no drainage, no odor Results Laboratory Results: 09/27/17 04:55 09/27/17 04:55 09/27/17 09/27/17 04:55 04:55 WBC 22.1 H RBC 3.02 L Hgb 7.9 L Hct 24.1 L MCV 80 MCH 26.1 L MCHC 32.7 RDW 19.1 H Plt Count 653 H Seg Neutrophils % Not Reportable Lymphocytes % Not Reportable Monocytes % Not Reportable Eosinophils % Not Reportable Basophils % Not Reportable Absolute Neutrophils Not Reportable Absolute Lymphocytes Not Reportable Absolute Monocytes Not Reportable Absolute Eosinophils Not Reportable Absolute Basophils Not Reportable Sodium 138.8 Potassium 3.5 L Chloride 102 Carbon Dioxide 29 Anion Gap 8 BUN 9 Creatinine 0.83 Est GFR ( Amer) > 60 Est GFR (Non-Af Amer) > 60 Glucose 106 Calcium 8.0 L Phosphorus 3.5 Magnesium 1.7 08/24/17 08/24/17 08/25/17 18:00 22:00 05:15 Creatine Kinase 140 117 82 CK-MB (CK-2) Troponin I NT-Pro-B Natriuret Pep 09/02/17 09/02/17 09/03/17 17:45 17:45 05:35 Creatine Kinase 50 L CK-MB (CK-2) 0.40 Troponin I 0.027 NT-Pro-B Natriuret Pep 4690 H Impressions: Thoracic Spine CT 08/26/17 08:00 IMPRESSION: No acute findings in the thoracic spine. Abdomen/Pelvis CT 08/27/17 00:00 IMPRESSION: 1. Extensive basilar pulmonary changes suggesting pneumonia. 2. No evidence of intra- abdominal or intrapelvic abscess or drainable collection. Postoperative changes as above without evidence of mechanical bowel obstruction. 3. Marked irregular soft tissue loss in the proximal left posterior and medial thigh, incompletely assessed. No suggestion of regional drainable collection as imaged. Chest X-Ray 09/13/17 00:00 IMPRESSION: NO ACUTE RADIOGRAPHIC FINDING IN THE CHEST. Assessment & Plan - Diagnosis (1) Abscess or cellulitis of perineum Is this a current diagnosis for this admission?: Yes (2) Hidradenitis Is this a current diagnosis for this admission?: Yes (3) Decubitus ulcer Qualifiers: Pressure ulcer location: sacral region Pressure ulcer stage: stage 3 Qualified Code(s): L89.153 - Pressure ulcer of sacral region, stage 3 Is this a current diagnosis for this admission?: Yes - Plan Summary Plan Summary: A/ POD#2 after full thickness debridment of bilateral segun skin with chronic and recurrent suppurative hydroadenitis VSS, AF On physical exam, both groin wounds appear to be clean and granulating, covered with a fibrinous film P/ continue current groin wound treatment with Santyl cream Change to wet-to-dry NS dressing changes on 09/28/17
[2017-09-27] MEDS ORDERED: FENTANYL CITRATE INJ/PF 100 MCG/2 ML AMPUL IV ONE (16:00)
[2017-09-27] MEDS: QUETIAPINE FUMARATE 25 MG TABLET PO SCH (22:05)
[2017-09-27] MEDS: TAMSULOSIN HCL 0.4 MG CAP.SR.24H PO SCH (22:06)
[2017-09-28] MEDS: OXYCODONE HCL IR 5 MG TABLET PO PRN ×4 (00:14→19:14)
[2017-09-28] MEDS: DILTIAZEM HCL 60 MG TABLET PO SCH ×3 (01:42→18:19)
[2017-09-28] MEDS: PIPERACILLIN SODIUM/TAZOBACTAM 4.5 GM in NORMAL SALINE 100 ML IV SCH ×4 (02:49→21:16)
[2017-09-28] MEDS: DEXTROSE 5%-1/2 NORMAL SALINE 1,000 ML IV PRN ×2 (06:31→21:16)
[2017-09-28 06:45] LABS: ABSOLUTE BASOPHILS # (AUTO) 0.2 10^3/uL (0.0-0.2); ABSOLUTE EOSINOPHILS # (AUTO) 0.7 10^3/uL (0.0-0.6); ABSOLUTE LYMPHOCYTES (AUTO) 4.3 10^3/uL (0.5-4.7); ABSOLUTE MONOCYTES (AUTO) 1.7 10^3/uL (0.1-1.4); ABSOLUTE NEUT (AUTO) 10.9 10^3/uL (1.7-8.2); BASOPHILS % (AUTO) 1.1 % (0-2); EOSINOPHILS % (AUTO) 3.8 % (0-6); HEMATOCRIT 26.4 % (37.9-51.0); HEMOGLOBIN 8.6 g/dL (13.5-17.0); LYMPHOCYTES % (AUTO) 24.3 % (13-45); MEAN CORPUSCULAR HEMOGLOBIN 25.8 pg (27.0-33.4); MEAN CORPUSCULAR HGB CONC 32.7 g/dL (32.0-36.0); MEAN CORPUSCULAR VOLUME 79 fl (80-97); MONOCYTES % (AUTO) 9.4 % (3-13); PLATELET COUNT 600 10^3/uL (150-450); RED BLOOD COUNT 3.35 10^6/uL (4.35-5.55); RED CELL DISTRIBUTION WIDTH 19.3 % (11.5-14.0); SEGMENTED NEUTROPHILS % (AUTO) 61.4 % (42-78); TOTAL CELLS COUNTED % (AUTO) 100 %; WHITE BLOOD COUNT 17.8 10^3/uL (4.0-10.5)
[2017-09-28 06:56] LABS: ANION GAP 9 (5-19); BLOOD UREA NITROGEN 8 mg/dL (7-20); CARBON DIOXIDE 28 mmol/L (22-30); CHLORIDE 101 mmol/L (98-107); GLUCOSE 111 mg/dL (75-110); POTASSIUM 3.7 mmol/L (3.6-5.0); SODIUM 137.5 mmol/L (137-145)
[2017-09-28] MEDS: MULTIVITAMINS W-IRON TABLET, CHEWABLE PO SCH (10:19)
[2017-09-28] MEDS: MORPHINE SULFATE SR 100 MG TABLET PO SCH ×2 (10:19→21:17)
[2017-09-28] MEDS: FINASTERIDE 5 MG TABLET PO SCH (10:19)
[2017-09-28] MEDS: DULOXETINE HCL 30 MG CAPSULE.DR PO SCH ×2 (10:22→21:18)
[2017-09-28] MEDS: ENOXAPARIN SODIUM INJ 40 MG/0.4 ML DISP.SYRIN SUBCUT SCH (10:24)
[2017-09-28] MEDS: FAMOTIDINE 20 MG TABLET PO SCH ×2 (10:24→21:18)
[2017-09-28] MEDS: NYSTATIN 500000 UNIT/5 ML UDCUP PO SCH ×4 (10:24→21:17)
[2017-09-28] MEDS: COLLAGENASE CLOSTRIDIUM HIST. OINT 30 GM TOP PRN ×2 (10:25→21:08)
--- NOTE | 2017-09-28 10:32 | PDOC PROGRESS REPORT ---
Subjective Progress Note for:: 09/28/17 Subjective:: No new issues. Reason For Visit: DKA, SEPSIS Physical Exam Vital Signs: Temp Pulse Resp BP Pulse Ox 98.1 F 92 16 93/63 L 96 09/28/17 07:55 09/28/17 07:55 09/28/17 07:55 09/28/17 07:55 09/28/17 07:55 Intake & Output 09/27/17 09/28/17 09/29/17 06:59 06:59 06:59 Intake Total 3867 2305 Output Total 3280 4100 Balance 587 -1795 Weight 59.5 kg 59.1 kg General appearance: PRESENT: no acute distress, thin, well-developed Head exam: PRESENT: atraumatic, normocephalic Eye exam: PRESENT: conjunctiva pink, EOMI. ABSENT: scleral icterus Ear exam: PRESENT: normal external ear exam Mouth exam: PRESENT: moist, tongue midline Neck exam: ABSENT: carotid bruit, JVD, lymphadenopathy, thyromegaly Respiratory exam: PRESENT: clear to auscultation [place]. ABSENT: rales, rhonchi, wheezes Cardiovascular exam: PRESENT: RRR. ABSENT: diastolic murmur, rubs, systolic murmur Pulses: PRESENT: normal dorsalis pedis pul Vascular exam: PRESENT: normal capillary refill GI/Abdominal exam: PRESENT: normal bowel sounds, soft. ABSENT: distended, guarding, mass, organolmegaly, rebound, tenderness Rectal exam: PRESENT: deferred Extremities exam: PRESENT: full ROM. ABSENT: calf tenderness, clubbing, pedal edema Musculoskeletal exam: PRESENT: full ROM Neurological exam: PRESENT: alert, awake, oriented to person, oriented to place , oriented to time, oriented to situation, CN II-XII grossly intact. ABSENT: motor sensory deficit Psychiatric exam: PRESENT: appropriate affect, normal mood. ABSENT: homicidal ideation, suicidal ideation Skin exam: PRESENT: dry, intact, warm, other - sacral wounds with dressing in place.. ABSENT: cyanosis, rash Results Laboratory Results: 09/28/17 06:15 09/28/17 06:15 09/28/17 09/28/17 09/28/17 06:15 06:15 06:15 WBC Cancelled 17.8 H RBC Cancelled 3.35 L Hgb Cancelled 8.6 L Hct Cancelled 26.4 L MCV Cancelled 79 L MCH Cancelled 25.8 L MCHC Cancelled 32.7 RDW Cancelled 19.3 H Plt Count Cancelled 600 H Seg Neutrophils % 61.4 Lymphocytes % 24.3 Monocytes % 9.4 Eosinophils % 3.8 Basophils % 1.1 Absolute Neutrophils 10.9 H Absolute Lymphocytes 4.3 Absolute Monocytes 1.7 H Absolute Eosinophils 0.7 H Absolute Basophils 0.2 Sodium 137.5 Potassium 3.7 Chloride 101 Carbon Dioxide 28 Anion Gap 9 BUN 8 Creatinine 0.69 Est GFR ( Amer) > 60 Est GFR (Non-Af Amer) > 60 Glucose 111 H Calcium 8.0 L 08/24/17 08/24/17 08/25/17 18:00 22:00 05:15 Creatine Kinase 140 117 82 CK-MB (CK-2) Troponin I NT-Pro-B Natriuret Pep 09/02/17 09/02/17 09/03/17 17:45 17:45 05:35 Creatine Kinase 50 L CK-MB (CK-2) 0.40 Troponin I 0.027 NT-Pro-B Natriuret Pep 4690 H Impressions: Thoracic Spine CT 08/26/17 08:00 IMPRESSION: No acute findings in the thoracic spine. Abdomen/Pelvis CT 08/27/17 00:00 IMPRESSION: 1. Extensive basilar pulmonary changes suggesting pneumonia. 2. No evidence of intra- abdominal or intrapelvic abscess or drainable collection. Postoperative changes as above without evidence of mechanical bowel obstruction. 3. Marked irregular soft tissue loss in the proximal left posterior and medial thigh, incompletely assessed. No suggestion of regional drainable collection as imaged. Chest X-Ray 09/13/17 00:00 IMPRESSION: NO ACUTE RADIOGRAPHIC FINDING IN THE CHEST. Assessment & Plan - Diagnosis (1) Anemia Is this a current diagnosis for this admission?: Yes Plan: Multifactorial: Will continue to monitor. Anemia most likely worsened by debridement. (2) Hypokalemia Is this a current diagnosis for this admission?: Yes Plan: Resolved. (3) Abscess or cellulitis of perineum Is this a current diagnosis for this admission?: Yes Plan: S/P Debridement due to E. coli and Enterobacter Aerogenes: Will continue Zosyn. (4) Crohns disease Qualifiers: Gastrointestinal tract location: unspecified location Is this a current diagnosis for this admission?: Yes Plan: Appreciate GI evaluating pt. (5) Diabetes mellitus Qualifiers: Diabetes mellitus type: type 1 Diabetes mellitus complication status: with unspecified complications Qualified Code(s): E10.8 - Type 1 diabetes mellitus with unspecified complications Is this a current diagnosis for this admission?: Yes Plan: Continue current treatment plan. (6) Pneumonia Qualifiers: Laterality: bilateral Lung location: unspecified part of lung Is this a current diagnosis for this admission?: Yes Plan: Resolved (7) Leukocytosis Qualifiers: Leukocytosis type: bandemia Qualified Code(s): D72.825 - Bandemia Is this a current diagnosis for this admission?: Yes Plan: Secondary to Multifactorial Causes ie Crohns, chronic wounds: Resolving. (8) Hypotension Qualifiers: Hypotension type: other hypotension type Qualified Code(s): I95.89 - Other hypotension Is this a current diagnosis for this admission?: Yes Plan: Resolved. (9) Diabetic keto-acidosis Qualifiers: Diabetes mellitus type: type 1 Diabetes mellitus complication detail: with coma Qualified Code(s): E10.11 - Type 1 diabetes mellitus with ketoacidosis with coma Is this a current diagnosis for this admission?: Yes Plan: Resolved. (10) Severe protein-calorie malnutrition Is this a current diagnosis for this admission?: Yes Plan: Will encourage PO intake and continue supplemental drink. (11) Hidradenitis suppurativa of anus Is this a current diagnosis for this admission?: Yes Plan: S/P Debridement in setting of E. Coli and Enterobacter Aerogenes: Will continue current Zosyn. (12) Hypoxic brain injury Is this a current diagnosis for this admission?: Yes (13) Diabetic neuropathy Qualifiers: Diabetes mellitus type: type 1 Diabetes mellitus complication detail: diabetic polyneuropathy Qualified Code(s): E10.42 - Type 1 diabetes mellitus with diabetic polyneuropathy Is this a current diagnosis for this admission?: Yes Plan: Supportive of care. (14) Chronic pain Qualifiers: Chronic pain type: chronic pain syndrome Qualified Code(s): G89.4 - Chronic pain syndrome Is this a current diagnosis for this admission?: Yes Plan: Will continue pain medications. (15) Opioid dependence in controlled environment Is this a current diagnosis for this admission?: Yes Plan: Will continue pain medication. (16) Hypercalcemia due to immobilization Is this a current diagnosis for this admission?: Yes Plan: Resolved (17) Hypomagnesemia Is this a current diagnosis for this admission?: Yes Plan: Will check Magnesium in am (18) Hematuria Is this a current diagnosis for this admission?: Yes Plan: Secondary to Trauma: Resolved. (19) Hypernatremia Is this a current diagnosis for this admission?: Yes Plan: resolved. (20) DVT prophylaxis Is this a current diagnosis for this admission?: Yes Plan: Lovenox - Time Time Spent with patient: 15-24 minutes
[2017-09-28 11:09] LABS: APPEARANCE,URINE CLEAR; BILIRUBIN,URINE NEGATIVE (NEGATIVE); COLOR,URINE STRAW; GLUCOSE, URINE NEGATIVE (NEGATIVE); KETONES,URINE NEGATIVE (NEGATIVE); LEUKOCYTE ESTERASE,URINE TRACE (NEGATIVE); NITRITE,URINE NEGATIVE (NEGATIVE); PROTEIN,URINE NEGATIVE (NEGATIVE); URINE SPECIFIC GRAVITY 1.006; UROBILINOGEN,URINE NEGATIVE mg/dL (<2.0)
--- NOTE | 2017-09-28 16:18 | PDOC PROGRESS REPORT ---
Subjective Progress Note for:: 09/28/17 Subjective:: comfortable Reason For Visit: DKA, SEPSIS Physical Exam Vital Signs: Temp Pulse Resp BP Pulse Ox 98.6 F 89 16 100/64 98 09/28/17 11:53 09/28/17 11:53 09/28/17 11:53 09/28/17 11:53 09/28/17 11:53 Intake & Output 09/27/17 09/28/17 09/29/17 06:59 06:59 06:59 Intake Total 3867 2305 200 Output Total 3280 4100 500 Balance 283 -0136 -300 Weight 59.5 kg 59.1 kg Skin exam: PRESENT: other Additional comments: bilateral groin wound= granulating Results Laboratory Results: 09/28/17 06:15 09/28/17 06:15 09/28/17 09/28/17 09/28/17 06:15 06:15 06:15 WBC Cancelled 17.8 H RBC Cancelled 3.35 L Hgb Cancelled 8.6 L Hct Cancelled 26.4 L MCV Cancelled 79 L MCH Cancelled 25.8 L MCHC Cancelled 32.7 RDW Cancelled 19.3 H Plt Count Cancelled 600 H Seg Neutrophils % 61.4 Lymphocytes % 24.3 Monocytes % 9.4 Eosinophils % 3.8 Basophils % 1.1 Absolute Neutrophils 10.9 H Absolute Lymphocytes 4.3 Absolute Monocytes 1.7 H Absolute Eosinophils 0.7 H Absolute Basophils 0.2 Sodium 137.5 Potassium 3.7 Chloride 101 Carbon Dioxide 28 Anion Gap 9 BUN 8 Creatinine 0.69 Est GFR ( Amer) > 60 Est GFR (Non-Af Amer) > 60 Glucose 111 H Calcium 8.0 L Urine Color Urine Appearance Urine pH Ur Specific [place] Urine Protein Urine Glucose (UA) Urine Ketones Urine Blood Urine Nitrite Ur Leukocyte Esterase Urine WBC (Auto) Urine RBC (Auto) Stool Occult Blood 09/28/17 09/28/17 10:35 10:35 WBC RBC Hgb Hct MCV MCH MCHC RDW Plt Count Seg Neutrophils % Lymphocytes % Monocytes % Eosinophils % Basophils % Absolute Neutrophils Absolute Lymphocytes Absolute Monocytes Absolute Eosinophils Absolute Basophils Sodium Potassium Chloride Carbon Dioxide Anion Gap BUN Creatinine Est GFR ( Amer) Est GFR (Non-Af Amer) Glucose Calcium Urine Color STRAW Urine Appearance CLEAR Urine pH 6.0 Ur Specific [place] 1.006 Urine Protein NEGATIVE Urine Glucose (UA) NEGATIVE Urine Ketones NEGATIVE Urine Blood NEGATIVE Urine Nitrite NEGATIVE Ur Leukocyte Esterase TRACE H Urine WBC (Auto) 7 Urine RBC (Auto) 1 Stool Occult Blood POSITIVE 08/24/17 08/24/17 08/25/17 18:00 22:00 05:15 Creatine Kinase 140 117 82 CK-MB (CK-2) Troponin I NT-Pro-B Natriuret Pep 09/02/17 09/02/17 09/03/17 17:45 17:45 05:35 Creatine Kinase 50 L CK-MB (CK-2) 0.40 Troponin I 0.027 NT-Pro-B Natriuret Pep 4690 H Impressions: Thoracic Spine CT 08/26/17 08:00 IMPRESSION: No acute findings in the thoracic spine. Abdomen/Pelvis CT 08/27/17 00:00 IMPRESSION: 1. Extensive basilar pulmonary changes suggesting pneumonia. 2. No evidence of intra- abdominal or intrapelvic abscess or drainable collection. Postoperative changes as above without evidence of mechanical bowel obstruction. 3. Marked irregular soft tissue loss in the proximal left posterior and medial thigh, incompletely assessed. No suggestion of regional drainable collection as imaged. Chest X-Ray 09/13/17 00:00 IMPRESSION: NO ACUTE RADIOGRAPHIC FINDING IN THE CHEST. Assessment & Plan - Diagnosis (1) Abscess or cellulitis of perineum Is this a current diagnosis for this admission?: Yes (2) Hidradenitis Is this a current diagnosis for this admission?: Yes (3) Decubitus ulcer Qualifiers: Pressure ulcer location: sacral region Pressure ulcer stage: stage 3 Qualified Code(s): L89.153 - Pressure ulcer of sacral region, stage 3 Is this a current diagnosis for this admission?: Yes - Plan Summary Plan Summary: A/ s/p debridment bilateral groin hydroadenitis suppurativa Wounds granulating P/ discontinue Santyl cream Start NS wet-to-dry changes of the groin wound BID
[2017-09-28] MEDS: QUETIAPINE FUMARATE 25 MG TABLET PO SCH (21:18)
[2017-09-28] MEDS: TAMSULOSIN HCL 0.4 MG CAP.SR.24H PO SCH (21:19)
[2017-09-29] MEDS: DILTIAZEM HCL 60 MG TABLET PO SCH ×3 (01:37→17:08)
[2017-09-29] MEDS: OXYCODONE HCL IR 5 MG TABLET PO PRN ×5 (01:37→21:19)
[2017-09-29] MEDS: PIPERACILLIN SODIUM/TAZOBACTAM 4.5 GM in NORMAL SALINE 100 ML IV SCH ×4 (03:54→21:21)
[2017-09-29 06:38] LABS: HEMATOCRIT 26.4 % (37.9-51.0); HEMOGLOBIN 8.4 g/dL (13.5-17.0); MEAN CORPUSCULAR HEMOGLOBIN 25.2 pg (27.0-33.4); MEAN CORPUSCULAR HGB CONC 31.7 g/dL (32.0-36.0); MEAN CORPUSCULAR VOLUME 80 fl (80-97); PLATELET COUNT 784 10^3/uL (150-450); RED BLOOD COUNT 3.32 10^6/uL (4.35-5.55); RED CELL DISTRIBUTION WIDTH 19.2 % (11.5-14.0); WHITE BLOOD COUNT 20.4 10^3/uL (4.0-10.5)
[2017-09-29 06:47] LABS: ANION GAP 10 (5-19); BLOOD UREA NITROGEN 8 mg/dL (7-20); CALCIUM 8.6 mg/dL (8.4-10.2); CARBON DIOXIDE 29 mmol/L (22-30); CHLORIDE 100 mmol/L (98-107); GLUCOSE 95 mg/dL (75-110); POTASSIUM 3.5 mmol/L (3.6-5.0); SODIUM 138.6 mmol/L (137-145)
[2017-09-29 07:47] LABS: ABSOLUTE LYMPHOCYTES# (MANUAL) 4.3 10^3/uL (0.5-4.7); ABSOLUTE MONOCYTES # (MANUAL) 2.4 10^3/uL (0.1-1.4); ABSOLUTE NEUTROPHILS# (MANUAL) 13.1 10^3/uL (1.7-8.2); BASOPHILS % (MANUAL) 0 % (0-2); EOSINOPHILS % (MANUAL) 3 % (0-6); LYMPHOCYTES % (MANUAL) 20 % (13-45); MONOCYTES % (MANUAL) 12 % (3-13); POLYCHROMASIA SLIGHT; SEGMENTED NEUTROPHILS % (MAN) 64 % (42-78); TOTAL CELLS COUNTED 100
[2017-09-29 07:48] LABS: ANISOCYTOSIS 2+; HYPOCHROMASIA 1+; PLATELET COMMENT INCREASED; TARGET CELLS SLIGHT
[2017-09-29] MEDS: MORPHINE SULFATE SR 100 MG TABLET PO SCH ×2 (09:13→21:19)
[2017-09-29] MEDS: DULOXETINE HCL 30 MG CAPSULE.DR PO SCH ×2 (09:15→21:20)
[2017-09-29] MEDS: FAMOTIDINE 20 MG TABLET PO SCH ×2 (09:15→21:18)
[2017-09-29] MEDS: ENOXAPARIN SODIUM INJ 40 MG/0.4 ML DISP.SYRIN SUBCUT SCH (09:16)
[2017-09-29] MEDS: FINASTERIDE 5 MG TABLET PO SCH (09:16)
[2017-09-29] MEDS: COLLAGENASE CLOSTRIDIUM HIST. OINT 30 GM TOP PRN ×2 (09:18→21:21)
[2017-09-29] MEDS: MULTIVITAMINS W-IRON TABLET, CHEWABLE PO SCH (09:18)
[2017-09-29] MEDS: NYSTATIN 500000 UNIT/5 ML UDCUP PO SCH ×4 (09:18→21:21)
[2017-09-29] MEDS: DEXTROSE 5%-1/2 NORMAL SALINE 1,000 ML IV PRN (14:26)
[2017-09-29] MEDS ORDERED: POTASSIUM CHLORIDE 20 MEQ/15 ML UDCUP PO ONE (14:30)
--- NOTE | 2017-09-29 14:34 | PDOC PROGRESS REPORT ---
Subjective Progress Note for:: 09/29/17 Subjective:: No new issues. Reason For Visit: DKA, SEPSIS Physical Exam Vital Signs: Temp Pulse Resp BP Pulse Ox 99.7 F 91 16 103/68 100 09/29/17 12:06 09/29/17 12:06 09/29/17 12:06 09/29/17 12:06 09/29/17 12:06 Intake & Output 09/28/17 09/29/17 09/30/17 06:59 06:59 06:59 Intake Total 2305 2190 200 Output Total 4100 3500 800 Balance -1795 -1310 -600 Weight 59.1 kg 57.6 kg General appearance: PRESENT: no acute distress, thin, well-developed Head exam: PRESENT: atraumatic, normocephalic Eye exam: PRESENT: conjunctiva pink, EOMI. ABSENT: scleral icterus Ear exam: PRESENT: normal external ear exam Mouth exam: PRESENT: moist, tongue midline Neck exam: ABSENT: carotid bruit, JVD, lymphadenopathy, thyromegaly Respiratory exam: PRESENT: clear to auscultation [place]. ABSENT: rales, rhonchi, wheezes Cardiovascular exam: PRESENT: RRR. ABSENT: diastolic murmur, rubs, systolic murmur Pulses: PRESENT: normal dorsalis pedis pul Vascular exam: PRESENT: normal capillary refill GI/Abdominal exam: PRESENT: normal bowel sounds, soft. ABSENT: distended, guarding, mass, organolmegaly, rebound, tenderness Rectal exam: PRESENT: deferred Extremities exam: PRESENT: other - + muscle wasting all 4 ext. Neurological exam: PRESENT: alert, awake, oriented to person, oriented to place , oriented to time, oriented to situation Psychiatric exam: PRESENT: appropriate affect, normal mood. ABSENT: homicidal ideation, suicidal ideation Skin exam: PRESENT: dry, intact, warm, other - buttock and sacral wounds with dressing in place.. ABSENT: cyanosis, rash Results Laboratory Results: 09/29/17 05:40 09/29/17 05:40 09/29/17 09/29/17 05:40 05:40 WBC 20.4 H RBC 3.32 L Hgb 8.4 L Hct 26.4 L MCV 80 MCH 25.2 L MCHC 31.7 L RDW 19.2 H Plt Count 784 H Seg Neutrophils % Not Reportable Lymphocytes % Not Reportable Monocytes % Not Reportable Eosinophils % Not Reportable Basophils % Not Reportable Absolute Neutrophils Not Reportable Absolute Lymphocytes Not Reportable Absolute Monocytes Not Reportable Absolute Eosinophils Not Reportable Absolute Basophils Not Reportable Sodium 138.6 Potassium 3.5 L Chloride 100 Carbon Dioxide 29 Anion Gap 10 BUN 8 Creatinine 0.70 Est GFR ( Amer) > 60 Est GFR (Non-Af Amer) > 60 Glucose 95 Calcium 8.6 Magnesium 1.5 L 09/25/17 13:57 Groin - Abscess Gram Stain - Final 09/25/17 13:57 Groin - Abscess Wound Culture - Final Escherichia Coli Enterobacter Aerogenes Enterococcus Raffinosus Prevotella Species 08/24/17 08/24/17 08/25/17 18:00 22:00 05:15 Creatine Kinase 140 117 82 CK-MB (CK-2) Troponin I NT-Pro-B Natriuret Pep 09/02/17 09/02/17 09/03/17 17:45 17:45 05:35 Creatine Kinase 50 L CK-MB (CK-2) 0.40 Troponin I 0.027 NT-Pro-B Natriuret Pep 4690 H Impressions: Thoracic Spine CT 08/26/17 08:00 IMPRESSION: No acute findings in the thoracic spine. Abdomen/Pelvis CT 08/27/17 00:00 IMPRESSION: 1. Extensive basilar pulmonary changes suggesting pneumonia. 2. No evidence of intra- abdominal or intrapelvic abscess or drainable collection. Postoperative changes as above without evidence of mechanical bowel obstruction. 3. Marked irregular soft tissue loss in the proximal left posterior and medial thigh, incompletely assessed. No suggestion of regional drainable collection as imaged. Chest X-Ray 09/13/17 00:00 IMPRESSION: NO ACUTE RADIOGRAPHIC FINDING IN THE CHEST. Assessment & Plan - Diagnosis (1) Hypomagnesemia Is this a current diagnosis for this admission?: Yes Plan: Will give additional magnesium. Will check magnesium level in am (2) Anemia Is this a current diagnosis for this admission?: Yes Plan: Multifactorial: Will continue to monitor. Anemia most likely worsened by debridement. (3) Hypokalemia Is this a current diagnosis for this admission?: Yes Plan: Will give additional potassium. Will check BMP in am. (4) Abscess or cellulitis of perineum Is this a current diagnosis for this admission?: Yes (5) Crohns disease Qualifiers: Gastrointestinal tract location: unspecified location Is this a current diagnosis for this admission?: Yes Plan: Appreciate GI evaluating pt. (6) Diabetes mellitus Qualifiers: Diabetes mellitus type: type 1 Diabetes mellitus complication status: with unspecified complications Qualified Code(s): E10.8 - Type 1 diabetes mellitus with unspecified complications Is this a current diagnosis for this admission?: Yes Plan: Continue current treatment plan. (7) Pneumonia Qualifiers: Laterality: bilateral Lung location: unspecified part of lung Is this a current diagnosis for this admission?: Yes Plan: Resolved (8) Leukocytosis Qualifiers: Leukocytosis type: bandemia Qualified Code(s): D72.825 - Bandemia Is this a current diagnosis for this admission?: Yes Plan: Secondary to Multifactorial Causes ie Crohns, chronic wounds: Resolving. (9) Hypotension Qualifiers: Hypotension type: other hypotension type Qualified Code(s): I95.89 - Other hypotension Is this a current diagnosis for this admission?: Yes Plan: Resolved. (10) Diabetic keto-acidosis Qualifiers: Diabetes mellitus type: type 1 Diabetes mellitus complication detail: with coma Qualified Code(s): E10.11 - Type 1 diabetes mellitus with ketoacidosis with coma Is this a current diagnosis for this admission?: Yes Plan: Resolved. (11) Severe protein-calorie malnutrition Is this a current diagnosis for this admission?: Yes Plan: Will encourage PO intake and continue supplemental drink. (12) Hidradenitis suppurativa of anus Is this a current diagnosis for this admission?: Yes Plan: S/P Debridement in setting of E. Coli and Enterobacter Aerogenes: Will continue current Zosyn. (13) Hypoxic brain injury Is this a current diagnosis for this admission?: Yes Plan: Resolved. (14) Diabetic neuropathy Qualifiers: Diabetes mellitus type: type 1 Diabetes mellitus complication detail: diabetic polyneuropathy Qualified Code(s): E10.42 - Type 1 diabetes mellitus with diabetic polyneuropathy Is this a current diagnosis for this admission?: Yes Plan: Supportive of care. (15) Chronic pain Qualifiers: Chronic pain type: chronic pain syndrome Qualified Code(s): G89.4 - Chronic pain syndrome Is this a current diagnosis for this admission?: Yes Plan: Will continue pain medications. (16) Opioid dependence in controlled environment Is this a current diagnosis for this admission?: Yes Plan: Will continue pain medication. (17) Hypercalcemia due to immobilization Is this a current diagnosis for this admission?: Yes Plan: Resolved (18) Hematuria Is this a current diagnosis for this admission?: Yes Plan: Secondary to Trauma: Resolved. (19) Hypernatremia Is this a current diagnosis for this admission?: Yes Plan: resolved. (20) DVT prophylaxis Is this a current diagnosis for this admission?: Yes Plan: Lovenox - Time Time Spent with patient: 15-24 minutes
[2017-09-29] MEDS: INSULIN LISPRO 100 UNIT/ML 3 ML VIAL SUBCUT PRN (17:09)
[2017-09-29] MEDS: TAMSULOSIN HCL 0.4 MG CAP.SR.24H PO SCH (21:18)
[2017-09-29] MEDS: QUETIAPINE FUMARATE 25 MG TABLET PO SCH (21:19)
[2017-09-30] MEDS: DILTIAZEM HCL 60 MG TABLET PO SCH ×3 (02:24→17:42)
[2017-09-30] MEDS: PIPERACILLIN SODIUM/TAZOBACTAM 4.5 GM in NORMAL SALINE 100 ML IV SCH ×4 (02:26→20:31)
[2017-09-30] MEDS: OXYCODONE HCL IR 5 MG TABLET PO PRN ×4 (04:28→21:56)
[2017-09-30 05:07] LABS: ANION GAP 8 (5-19); BLOOD UREA NITROGEN 8 mg/dL (7-20); CALCIUM 8.9 mg/dL (8.4-10.2); CARBON DIOXIDE 30 mmol/L (22-30); CHLORIDE 99 mmol/L (98-107); GLUCOSE 85 mg/dL (75-110); POTASSIUM 3.7 mmol/L (3.6-5.0); SODIUM 137.3 mmol/L (137-145)
[2017-09-30 05:56] LABS: HEMATOCRIT 26.2 % (37.9-51.0); HEMOGLOBIN 8.3 g/dL (13.5-17.0); MEAN CORPUSCULAR HEMOGLOBIN 25.1 pg (27.0-33.4); MEAN CORPUSCULAR HGB CONC 31.7 g/dL (32.0-36.0); MEAN CORPUSCULAR VOLUME 79 fl (80-97); PLATELET COUNT 878 10^3/uL (150-450); RED BLOOD COUNT 3.31 10^6/uL (4.35-5.55); RED CELL DISTRIBUTION WIDTH 19.5 % (11.5-14.0); WHITE BLOOD COUNT 22.1 10^3/uL (4.0-10.5)
[2017-09-30] MEDS: DEXTROSE 5%-1/2 NORMAL SALINE 1,000 ML IV PRN (06:05)
[2017-09-30 06:30] LABS: APPEARANCE,URINE CLEAR; BILIRUBIN,URINE NEGATIVE (NEGATIVE); COLOR,URINE STRAW; GLUCOSE, URINE NEGATIVE (NEGATIVE); KETONES,URINE NEGATIVE (NEGATIVE); LEUKOCYTE ESTERASE,URINE NEGATIVE (NEGATIVE); NITRITE,URINE NEGATIVE (NEGATIVE); PROTEIN,URINE NEGATIVE (NEGATIVE); URINE SPECIFIC GRAVITY 1.011; UROBILINOGEN,URINE NEGATIVE mg/dL (<2.0)
[2017-09-30] MEDS: NYSTATIN 500000 UNIT/5 ML UDCUP PO SCH ×4 (10:37→21:55)
[2017-09-30] MEDS: ENOXAPARIN SODIUM INJ 40 MG/0.4 ML DISP.SYRIN SUBCUT SCH (10:37)
--- NOTE | 2017-09-30 10:37 | PDOC PROGRESS REPORT ---
Subjective Progress Note for:: 09/30/17 Subjective:: No new issues. Reason For Visit: DKA, SEPSIS Physical Exam Vital Signs: Temp Pulse Resp BP Pulse Ox 99.6 F 89 16 93/57 L 100 09/30/17 08:02 09/30/17 08:02 09/30/17 08:02 09/30/17 08:02 09/30/17 08:02 Intake & Output 09/29/17 09/30/17 10/01/17 06:59 06:59 06:59 Intake Total 2190 2540 Output Total 3500 2500 Balance -1310 40 Weight 57.6 kg 57.1 kg General appearance: PRESENT: no acute distress, thin, well-developed Head exam: PRESENT: atraumatic, normocephalic Eye exam: PRESENT: conjunctiva pink, EOMI. ABSENT: scleral icterus Ear exam: PRESENT: normal external ear exam Mouth exam: PRESENT: moist, tongue midline Neck exam: ABSENT: carotid bruit, JVD, lymphadenopathy, thyromegaly Respiratory exam: PRESENT: clear to auscultation [place]. ABSENT: rales, rhonchi, wheezes Cardiovascular exam: PRESENT: RRR. ABSENT: diastolic murmur, rubs, systolic murmur Pulses: PRESENT: normal dorsalis pedis pul Vascular exam: PRESENT: normal capillary refill GI/Abdominal exam: PRESENT: normal bowel sounds, soft. ABSENT: distended, guarding, mass, organolmegaly, rebound, tenderness Rectal exam: PRESENT: deferred Extremities exam: ABSENT: calf tenderness, clubbing, pedal edema Neurological exam: PRESENT: alert, awake, oriented to person, oriented to place , oriented to time, oriented to situation, CN II-XII grossly intact. ABSENT: motor sensory deficit Psychiatric exam: PRESENT: appropriate affect, normal mood. ABSENT: homicidal ideation, suicidal ideation Skin exam: PRESENT: dry, intact, warm. ABSENT: cyanosis, rash Results Laboratory Results: 09/30/17 04:22 09/30/17 04:22 09/30/17 09/30/17 09/30/17 04:22 04:22 05:50 WBC 22.1 H RBC 3.31 L Hgb 8.3 L Hct 26.2 L MCV 79 L MCH 25.1 L MCHC 31.7 L RDW 19.5 H Plt Count 878 H Sodium 137.3 Potassium 3.7 Chloride 99 Carbon Dioxide 30 Anion Gap 8 BUN 8 Creatinine 0.72 Est GFR ( Amer) > 60 Est GFR (Non-Af Amer) > 60 Glucose 85 Calcium 8.9 Magnesium 1.4 L Urine Color STRAW Urine Appearance CLEAR Urine pH 6.0 Ur Specific [place] 1.011 Urine Protein NEGATIVE Urine Glucose (UA) NEGATIVE Urine Ketones NEGATIVE Urine Blood SMALL H Urine Nitrite NEGATIVE Ur Leukocyte Esterase NEGATIVE Urine WBC (Auto) 7 Urine RBC (Auto) 12 09/25/17 13:57 Groin - Abscess Gram Stain - Final 09/25/17 13:57 Groin - Abscess Wound Culture - Final Escherichia Coli Enterobacter Aerogenes Enterococcus Raffinosus Prevotella Species 08/24/17 08/24/17 08/25/17 18:00 22:00 05:15 Creatine Kinase 140 117 82 CK-MB (CK-2) Troponin I NT-Pro-B Natriuret Pep 09/02/17 09/02/17 09/03/17 17:45 17:45 05:35 Creatine Kinase 50 L CK-MB (CK-2) 0.40 Troponin I 0.027 NT-Pro-B Natriuret Pep 4690 H Impressions: Thoracic Spine CT 08/26/17 08:00 IMPRESSION: No acute findings in the thoracic spine. Abdomen/Pelvis CT 08/27/17 00:00 IMPRESSION: 1. Extensive basilar pulmonary changes suggesting pneumonia. 2. No evidence of intra- abdominal or intrapelvic abscess or drainable collection. Postoperative changes as above without evidence of mechanical bowel obstruction. 3. Marked irregular soft tissue loss in the proximal left posterior and medial thigh, incompletely assessed. No suggestion of regional drainable collection as imaged. Chest X-Ray 09/13/17 00:00 IMPRESSION: NO ACUTE RADIOGRAPHIC FINDING IN THE CHEST. Assessment & Plan - Diagnosis (1) Hypomagnesemia Is this a current diagnosis for this admission?: Yes Plan: Will give magnesium replacement. Will check Magnesium in am. (2) Anemia Is this a current diagnosis for this admission?: Yes Plan: Multifactorial: Will continue to monitor. Anemia most likely worsened by debridement. (3) Hypokalemia Is this a current diagnosis for this admission?: Yes Plan: Resolved. (4) Abscess or cellulitis of perineum Is this a current diagnosis for this admission?: Yes Plan: S/P Debridement due to E. coli and Enterobacter Aerogenes: Will continue Zosyn. (5) Crohns disease Qualifiers: Gastrointestinal tract location: unspecified location Is this a current diagnosis for this admission?: Yes Plan: Appreciate GI evaluating pt. (6) Diabetes mellitus Qualifiers: Diabetes mellitus type: type 1 Diabetes mellitus complication status: with unspecified complications Qualified Code(s): E10.8 - Type 1 diabetes mellitus with unspecified complications Is this a current diagnosis for this admission?: Yes Plan: Continue current treatment plan. (7) Pneumonia Qualifiers: Laterality: bilateral Lung location: unspecified part of lung Is this a current diagnosis for this admission?: Yes Plan: Resolved (8) Leukocytosis Qualifiers: Leukocytosis type: bandemia Qualified Code(s): D72.825 - Bandemia Is this a current diagnosis for this admission?: Yes Plan: Secondary to Multifactorial Causes ie Crohns, chronic wounds: Resolving. (9) Hypotension Qualifiers: Hypotension type: other hypotension type Qualified Code(s): I95.89 - Other hypotension Is this a current diagnosis for this admission?: Yes Plan: Resolved. (10) Diabetic keto-acidosis Qualifiers: Diabetes mellitus type: type 1 Diabetes mellitus complication detail: with coma Qualified Code(s): E10.11 - Type 1 diabetes mellitus with ketoacidosis with coma Is this a current diagnosis for this admission?: Yes Plan: Resolved. (11) Severe protein-calorie malnutrition Is this a current diagnosis for this admission?: Yes Plan: Will encourage PO intake and continue supplemental drink. (12) Hidradenitis suppurativa of anus Is this a current diagnosis for this admission?: Yes Plan: S/P Debridement in setting of E. Coli and Enterobacter Aerogenes: Will continue current Zosyn. (13) Hypoxic brain injury Is this a current diagnosis for this admission?: Yes Plan: Resolved. (14) Diabetic neuropathy Qualifiers: Diabetes mellitus type: type 1 Diabetes mellitus complication detail: diabetic polyneuropathy Qualified Code(s): E10.42 - Type 1 diabetes mellitus with diabetic polyneuropathy Is this a current diagnosis for this admission?: Yes Plan: Supportive of care. (15) Chronic pain Qualifiers: Chronic pain type: chronic pain syndrome Qualified Code(s): G89.4 - Chronic pain syndrome Is this a current diagnosis for this admission?: Yes Plan: Will continue pain medications. (16) Opioid dependence in controlled environment Is this a current diagnosis for this admission?: Yes Plan: Will continue pain medication. (17) Hypercalcemia due to immobilization Is this a current diagnosis for this admission?: Yes Plan: Resolved (18) Hematuria Is this a current diagnosis for this admission?: Yes Plan: Secondary to Trauma: Resolved. (19) Hypernatremia Is this a current diagnosis for this admission?: Yes Plan: resolved. (20) DVT prophylaxis Is this a current diagnosis for this admission?: Yes Plan: Lovenox - Time Time Spent with patient: 15-24 minutes
[2017-09-30] MEDS: MORPHINE SULFATE SR 100 MG TABLET PO SCH ×2 (10:38→21:56)
[2017-09-30] MEDS: MULTIVITAMINS W-IRON TABLET, CHEWABLE PO SCH (10:38)
[2017-09-30] MEDS: FAMOTIDINE 20 MG TABLET PO SCH ×2 (10:39→21:56)
[2017-09-30] MEDS: DULOXETINE HCL 30 MG CAPSULE.DR PO SCH ×2 (10:39→21:56)
[2017-09-30] MEDS: FINASTERIDE 5 MG TABLET PO SCH (10:39)
[2017-09-30] MEDS: COLLAGENASE CLOSTRIDIUM HIST. OINT 30 GM TOP PRN ×2 (10:43→22:12)
[2017-09-30] MEDS: MAGNESIUM SULFATE/D5W 1 GM/100 ML RTUPB IV SCH ×2 (11:10→12:19)
[2017-09-30] MEDS: INSULIN LISPRO 100 UNIT/ML 3 ML VIAL SUBCUT PRN (14:05)
--- NOTE | 2017-09-30 20:08 | PDOC PROGRESS REPORT ---
Subjective Progress Note for:: 09/30/17 Subjective:: No fresh issues Reason For Visit: DKA, SEPSIS Physical Exam Vital Signs: Temp Pulse Resp BP Pulse Ox 98.9 F 92 16 96/67 L 99 09/30/17 16:03 09/30/17 16:03 09/30/17 16:03 09/30/17 16:03 09/30/17 16:03 Intake & Output 09/29/17 09/30/17 10/01/17 06:59 06:59 06:59 Intake Total 2190 2540 1500 Output Total 3500 2500 1700 Balance -1310 40 -200 Weight 57.6 kg 57.1 kg General appearance: PRESENT: no acute distress Respiratory exam: PRESENT: clear to auscultation daija. ABSENT: rales, rhonchi, wheezes Cardiovascular exam: PRESENT: +S1, +S2 GI/Abdominal exam: PRESENT: normal bowel sounds, soft Neurological exam: PRESENT: alert, awake, oriented to person, oriented to place , oriented to time, oriented to situation, CN II-XII grossly intact Skin exam: PRESENT: other - sacral decubitus with wet-to-dry dressing; left hip decub with wound vac; perineal hidradenitis wounds with gauze and tape dressings Results Laboratory Results: 09/30/17 04:22 09/30/17 04:22 09/30/17 09/30/17 09/30/17 04:22 04:22 05:50 WBC 22.1 H RBC 3.31 L Hgb 8.3 L Hct 26.2 L MCV 79 L MCH 25.1 L MCHC 31.7 L RDW 19.5 H Plt Count 878 H Sodium 137.3 Potassium 3.7 Chloride 99 Carbon Dioxide 30 Anion Gap 8 BUN 8 Creatinine 0.72 Est GFR ( Amer) > 60 Est GFR (Non-Af Amer) > 60 Glucose 85 Calcium 8.9 Magnesium 1.4 L Urine Color STRAW Urine Appearance CLEAR Urine pH 6.0 Ur Specific [place] 1.011 Urine Protein NEGATIVE Urine Glucose (UA) NEGATIVE Urine Ketones NEGATIVE Urine Blood SMALL H Urine Nitrite NEGATIVE Ur Leukocyte Esterase NEGATIVE Urine WBC (Auto) 7 Urine RBC (Auto) 12 08/24/17 08/24/17 08/25/17 18:00 22:00 05:15 Creatine Kinase 140 117 82 CK-MB (CK-2) Troponin I NT-Pro-B Natriuret Pep 09/02/17 09/02/17 09/03/17 17:45 17:45 05:35 Creatine Kinase 50 L CK-MB (CK-2) 0.40 Troponin I 0.027 NT-Pro-B Natriuret Pep 4690 H Impressions: Thoracic Spine CT 08/26/17 08:00 IMPRESSION: No acute findings in the thoracic spine. Abdomen/Pelvis CT 08/27/17 00:00 IMPRESSION: 1. Extensive basilar pulmonary changes suggesting pneumonia. 2. No evidence of intra- abdominal or intrapelvic abscess or drainable collection. Postoperative changes as above without evidence of mechanical bowel obstruction. 3. Marked irregular soft tissue loss in the proximal left posterior and medial thigh, incompletely assessed. No suggestion of regional drainable collection as imaged. Chest X-Ray 09/13/17 00:00 IMPRESSION: NO ACUTE RADIOGRAPHIC FINDING IN THE CHEST. Assessment & Plan - Diagnosis (1) Hidradenitis suppurativa of anus Is this a current diagnosis for this admission?: Yes (2) Groin abscess Is this a current diagnosis for this admission?: Yes (3) Diabetic keto-acidosis Qualifiers: Diabetes mellitus type: type 1 Diabetes mellitus complication detail: with coma Qualified Code(s): E10.11 - Type 1 diabetes mellitus with ketoacidosis with coma Is this a current diagnosis for this admission?: Yes (4) Sacral decubitus ulcer, stage III Is this a current diagnosis for this admission?: Yes (5) Decubitus ulcer, hip, left, unstageable Is this a current diagnosis for this admission?: Yes (6) Hidradenitis Is this a current diagnosis for this admission?: Yes - Plan Summary Plan Summary: Apply wound vac to sacral decubitus ulcer
[2017-09-30] MEDS: QUETIAPINE FUMARATE 25 MG TABLET PO SCH (21:56)
[2017-09-30] MEDS: TAMSULOSIN HCL 0.4 MG CAP.SR.24H PO SCH (21:56)
[2017-10-01] MEDS: PIPERACILLIN SODIUM/TAZOBACTAM 4.5 GM in NORMAL SALINE 100 ML IV SCH ×4 (02:41→21:15)
[2017-10-01] MEDS: DILTIAZEM HCL 60 MG TABLET PO SCH ×3 (02:41→18:56)
[2017-10-01] MEDS: ENOXAPARIN SODIUM INJ 40 MG/0.4 ML DISP.SYRIN SUBCUT SCH (10:17)
[2017-10-01] MEDS: DULOXETINE HCL 30 MG CAPSULE.DR PO SCH ×2 (10:19→21:14)
[2017-10-01] MEDS: NYSTATIN 500000 UNIT/5 ML UDCUP PO SCH ×4 (10:19→21:15)
[2017-10-01] MEDS: FINASTERIDE 5 MG TABLET PO SCH (10:19)
[2017-10-01] MEDS: FAMOTIDINE 20 MG TABLET PO SCH ×2 (10:19→21:13)
[2017-10-01] MEDS: MULTIVITAMINS W-IRON TABLET, CHEWABLE PO SCH (10:19)
[2017-10-01] MEDS: MORPHINE SULFATE SR 100 MG TABLET PO SCH ×2 (10:20→21:14)
[2017-10-01] MEDS: COLLAGENASE CLOSTRIDIUM HIST. OINT 30 GM TOP PRN ×2 (10:22→21:17)
[2017-10-01] MEDS: ONDANSETRON 4 MG TAB.RAPDIS PO PRN (10:22)
[2017-10-01] MEDS: OXYCODONE HCL IR 5 MG TABLET PO PRN ×3 (13:38→23:56)
--- NOTE | 2017-10-01 15:05 | PDOC PROGRESS REPORT ---
Subjective Progress Note for:: 10/01/17 Subjective:: No new issues. Reason For Visit: DKA, SEPSIS Physical Exam Vital Signs: Temp Pulse Resp BP Pulse Ox 99.2 F 100 16 98/63 L 98 10/01/17 11:33 10/01/17 11:33 10/01/17 11:33 10/01/17 11:33 10/01/17 11:33 Intake & Output 09/30/17 10/01/17 10/02/17 06:59 06:59 06:59 Intake Total 2540 2032 200 Output Total 2500 3200 900 Balance 40 -1168 -700 Weight 57.1 kg 57.4 kg General appearance: PRESENT: no acute distress, thin, well-developed Head exam: PRESENT: atraumatic, normocephalic Eye exam: PRESENT: conjunctiva pink, EOMI. ABSENT: scleral icterus Ear exam: PRESENT: normal external ear exam Mouth exam: PRESENT: moist, tongue midline Neck exam: ABSENT: carotid bruit, JVD, lymphadenopathy, thyromegaly Respiratory exam: PRESENT: clear to auscultation daija. ABSENT: rales, rhonchi, wheezes Cardiovascular exam: PRESENT: RRR. ABSENT: diastolic murmur, rubs, systolic murmur Pulses: PRESENT: normal dorsalis pedis pul Vascular exam: PRESENT: normal capillary refill GI/Abdominal exam: PRESENT: normal bowel sounds, soft. ABSENT: distended, guarding, mass, organolmegaly, rebound, tenderness Rectal exam: PRESENT: deferred Extremities exam: PRESENT: full ROM. ABSENT: calf tenderness, clubbing, pedal edema Musculoskeletal exam: PRESENT: full ROM Neurological exam: PRESENT: alert, awake, oriented to person, oriented to place , oriented to time, oriented to situation, CN II-XII grossly intact. ABSENT: motor sensory deficit Psychiatric exam: PRESENT: appropriate affect, normal mood. ABSENT: homicidal ideation, suicidal ideation Skin exam: PRESENT: dry, intact, warm. ABSENT: cyanosis, rash Results Laboratory Results: 09/30/17 04:22 09/30/17 04:22 10/01/17 04:53 Stool Occult Blood POSITIVE 08/24/17 08/24/17 08/25/17 18:00 22:00 05:15 Creatine Kinase 140 117 82 CK-MB (CK-2) Troponin I NT-Pro-B Natriuret Pep 09/02/17 09/02/17 09/03/17 17:45 17:45 05:35 Creatine Kinase 50 L CK-MB (CK-2) 0.40 Troponin I 0.027 NT-Pro-B Natriuret Pep 4690 H Impressions: Thoracic Spine CT 08/26/17 08:00 IMPRESSION: No acute findings in the thoracic spine. Abdomen/Pelvis CT 08/27/17 00:00 IMPRESSION: 1. Extensive basilar pulmonary changes suggesting pneumonia. 2. No evidence of intra- abdominal or intrapelvic abscess or drainable collection. Postoperative changes as above without evidence of mechanical bowel obstruction. 3. Marked irregular soft tissue loss in the proximal left posterior and medial thigh, incompletely assessed. No suggestion of regional drainable collection as imaged. Chest X-Ray 09/13/17 00:00 IMPRESSION: NO ACUTE RADIOGRAPHIC FINDING IN THE CHEST. Assessment & Plan - Diagnosis (1) Hypomagnesemia Is this a current diagnosis for this admission?: Yes Plan: Magnesium in am (2) Anemia Is this a current diagnosis for this admission?: Yes Plan: Multifactorial: Will continue to monitor. Anemia most likely worsened by debridement. Pt hemoccult positive. No acute bleed in addition pt has had significant debridement. (3) Hypokalemia Is this a current diagnosis for this admission?: Yes Plan: Resolved. (4) Abscess or cellulitis of perineum Is this a current diagnosis for this admission?: Yes Plan: S/P Debridement due to E. coli and Enterobacter Aerogenes: Will continue Zosyn. (5) Crohns disease Qualifiers: Gastrointestinal tract location: unspecified location Is this a current diagnosis for this admission?: Yes Plan: Appreciate GI evaluating pt. (6) Diabetes mellitus Qualifiers: Diabetes mellitus type: type 1 Diabetes mellitus complication status: with unspecified complications Qualified Code(s): E10.8 - Type 1 diabetes mellitus with unspecified complications Is this a current diagnosis for this admission?: Yes Plan: Continue current treatment plan. (7) Pneumonia Qualifiers: Laterality: bilateral Lung location: unspecified part of lung Is this a current diagnosis for this admission?: Yes Plan: Resolved (8) Leukocytosis Qualifiers: Leukocytosis type: bandemia Qualified Code(s): D72.825 - Bandemia Is this a current diagnosis for this admission?: Yes Plan: Secondary to Multifactorial Causes ie Crohns, chronic wounds: Resolving. (9) Hypotension Qualifiers: Hypotension type: other hypotension type Qualified Code(s): I95.89 - Other hypotension Is this a current diagnosis for this admission?: Yes Plan: Resolved. (10) Diabetic keto-acidosis Qualifiers: Diabetes mellitus type: type 1 Diabetes mellitus complication detail: with coma Qualified Code(s): E10.11 - Type 1 diabetes mellitus with ketoacidosis with coma Is this a current diagnosis for this admission?: Yes Plan: Resolved. (11) Severe protein-calorie malnutrition Is this a current diagnosis for this admission?: Yes Plan: Will encourage PO intake and continue supplemental drink. (12) Hidradenitis suppurativa of anus Is this a current diagnosis for this admission?: Yes Plan: S/P Debridement in setting of E. Coli and Enterobacter Aerogenes: Will continue current Zosyn. (13) Hypoxic brain injury Is this a current diagnosis for this admission?: Yes Plan: Resolved. (14) Diabetic neuropathy Qualifiers: Diabetes mellitus type: type 1 Diabetes mellitus complication detail: diabetic polyneuropathy Qualified Code(s): E10.42 - Type 1 diabetes mellitus with diabetic polyneuropathy Is this a current diagnosis for this admission?: Yes Plan: Supportive of care. (15) Chronic pain Qualifiers: Chronic pain type: chronic pain syndrome Qualified Code(s): G89.4 - Chronic pain syndrome Is this a current diagnosis for this admission?: Yes Plan: Will continue pain medications. (16) Opioid dependence in controlled environment Is this a current diagnosis for this admission?: Yes Plan: Will continue pain medication. (17) Hypercalcemia due to immobilization Is this a current diagnosis for this admission?: Yes Plan: Resolved (18) Hematuria Is this a current diagnosis for this admission?: Yes Plan: Secondary to Trauma: Resolved. (19) Hypernatremia Is this a current diagnosis for this admission?: Yes Plan: resolved. (20) DVT prophylaxis Is this a current diagnosis for this admission?: Yes Plan: Lovenox
[2017-10-01 17:10] LABS: HEMATOCRIT 25.9 % (37.9-51.0); HEMOGLOBIN 8.4 g/dL (13.5-17.0); MEAN CORPUSCULAR HEMOGLOBIN 25.6 pg (27.0-33.4); MEAN CORPUSCULAR HGB CONC 32.3 g/dL (32.0-36.0); MEAN CORPUSCULAR VOLUME 79 fl (80-97); PLATELET COUNT 913 10^3/uL (150-450); RED BLOOD COUNT 3.26 10^6/uL (4.35-5.55); RED CELL DISTRIBUTION WIDTH 19.1 % (11.5-14.0); WHITE BLOOD COUNT 18.1 10^3/uL (4.0-10.5)
[2017-10-01] MEDS ORDERED: LIDOCAINE 1% INJ-PF (10 MG/ML) 30 ML SDV ONE (17:11)
--- NOTE | 2017-10-01 17:59 | PDOC PROGRESS REPORT ---
Subjective Progress Note for:: 10/01/17 Subjective:: Patient bleeding from the left groin wound. Reason For Visit: DKA, SEPSIS Physical Exam Vital Signs: Temp Pulse Resp BP Pulse Ox 99.2 F 92 16 98/63 L 98 10/01/17 11:33 10/01/17 14:00 10/01/17 11:33 10/01/17 11:33 10/01/17 11:33 Intake & Output 09/30/17 10/01/17 10/02/17 06:59 06:59 06:59 Intake Total 2540 2032 200 Output Total 2500 3200 900 Balance 40 1168 -700 Weight 57.1 kg 57.4 kg Respiratory exam: PRESENT: clear to auscultation daija. ABSENT: rales, rhonchi, wheezes Cardiovascular exam: PRESENT: +S1, +S2 GI/Abdominal exam: PRESENT: soft, other - colostomy functioning Neurological exam: PRESENT: alert, awake, oriented to person, oriented to place , oriented to time, oriented to situation, CN II-XII grossly intact Skin exam: PRESENT: other - small constant ooze from the left groin wound. Wound vac on sacral decub. Left hip decub appears clean and granulating. Results Laboratory Results: 10/01/17 17:00 09/30/17 04:22 10/01/17 10/01/17 04:53 17:00 WBC 18.1 H RBC 3.26 L Hgb 8.4 L Hct 25.9 L MCV 79 L MCH 25.6 L MCHC 32.3 RDW 19.1 H Plt Count 913 H Stool Occult Blood POSITIVE 08/24/17 08/24/17 08/25/17 18:00 22:00 05:15 Creatine Kinase 140 117 82 CK-MB (CK-2) Troponin I NT-Pro-B Natriuret Pep 09/02/17 09/02/17 09/03/17 17:45 17:45 05:35 Creatine Kinase 50 L CK-MB (CK-2) 0.40 Troponin I 0.027 NT-Pro-B Natriuret Pep 4690 H Impressions: Thoracic Spine CT 08/26/17 08:00 IMPRESSION: No acute findings in the thoracic spine. Abdomen/Pelvis CT 08/27/17 00:00 IMPRESSION: 1. Extensive basilar pulmonary changes suggesting pneumonia. 2. No evidence of intra- abdominal or intrapelvic abscess or drainable collection. Postoperative changes as above without evidence of mechanical bowel obstruction. 3. Marked irregular soft tissue loss in the proximal left posterior and medial thigh, incompletely assessed. No suggestion of regional drainable collection as imaged. Chest X-Ray 09/13/17 00:00 IMPRESSION: NO ACUTE RADIOGRAPHIC FINDING IN THE CHEST. Assessment & Plan - Diagnosis (1) Hidradenitis suppurativa of anus Is this a current diagnosis for this admission?: Yes (2) Groin abscess Is this a current diagnosis for this admission?: Yes (3) Diabetic keto-acidosis Qualifiers: Diabetes mellitus type: type 1 Diabetes mellitus complication detail: with coma Qualified Code(s): E10.11 - Type 1 diabetes mellitus with ketoacidosis with coma Is this a current diagnosis for this admission?: Yes (4) Sacral decubitus ulcer, stage III Is this a current diagnosis for this admission?: Yes (5) Decubitus ulcer, hip, left, unstageable Is this a current diagnosis for this admission?: Yes (6) Hidradenitis Is this a current diagnosis for this admission?: Yes - Plan Summary Plan Summary: A 3-0 vicryl suture was used to ligate the bleeder. No more bleeding observed. Fresh wet to dry dressing applied. Continue with wound vac to the left groin.
[2017-10-01] MEDS: QUETIAPINE FUMARATE 25 MG TABLET PO SCH (21:14)
[2017-10-01] MEDS: TAMSULOSIN HCL 0.4 MG CAP.SR.24H PO SCH (21:14)
[2017-10-02 02:05] LABS: ABSOLUTE BASOPHILS # (AUTO) 0.2 10^3/uL (0.0-0.2); ABSOLUTE EOSINOPHILS # (AUTO) 0.7 10^3/uL (0.0-0.6); ABSOLUTE LYMPHOCYTES (AUTO) 4.8 10^3/uL (0.5-4.7); ABSOLUTE MONOCYTES (AUTO) 1.9 10^3/uL (0.1-1.4); ABSOLUTE NEUT (AUTO) 8.4 10^3/uL (1.7-8.2); BASOPHILS % (AUTO) 1.4 % (0-2); EOSINOPHILS % (AUTO) 4.4 % (0-6); HEMOGLOBIN 9.1 g/dL (13.5-17.0); LYMPHOCYTES % (AUTO) 29.9 % (13-45); MEAN CORPUSCULAR HEMOGLOBIN 25.9 pg (27.0-33.4); MEAN CORPUSCULAR HGB CONC 32.7 g/dL (32.0-36.0); MEAN CORPUSCULAR VOLUME 79 fl (80-97); MONOCYTES % (AUTO) 11.8 % (3-13); PLATELET COUNT 628 10^3/uL (150-450); RED BLOOD COUNT 3.52 10^6/uL (4.35-5.55); RED CELL DISTRIBUTION WIDTH 18.5 % (11.5-14.0); SEGMENTED NEUTROPHILS % (AUTO) 52.5 % (42-78); TOTAL CELLS COUNTED % (AUTO) 100 %; WHITE BLOOD COUNT 15.9 10^3/uL (4.0-10.5)
[2017-10-02] MEDS: PIPERACILLIN SODIUM/TAZOBACTAM 4.5 GM in NORMAL SALINE 100 ML IV SCH ×4 (03:40→21:21)
[2017-10-02] MEDS: DILTIAZEM HCL 60 MG TABLET PO SCH ×3 (03:41→17:03)
[2017-10-02] MEDS: OXYCODONE HCL IR 5 MG TABLET PO PRN ×2 (05:14→18:37)
[2017-10-02 09:14] LABS: ABSOLUTE BASOPHILS # (AUTO) 0.1 10^3/uL (0.0-0.2); ABSOLUTE EOSINOPHILS # (AUTO) 0.8 10^3/uL (0.0-0.6); ABSOLUTE LYMPHOCYTES (AUTO) 5.9 10^3/uL (0.5-4.7); ABSOLUTE NEUT (AUTO) 8.7 10^3/uL (1.7-8.2); BASOPHILS % (AUTO) 0.7 % (0-2); EOSINOPHILS % (AUTO) 4.7 % (0-6); HEMATOCRIT 30.7 % (37.9-51.0); HEMOGLOBIN 10.1 g/dL (13.5-17.0); LYMPHOCYTES % (AUTO) 33.5 % (13-45); MEAN CORPUSCULAR HEMOGLOBIN 25.9 pg (27.0-33.4); MEAN CORPUSCULAR HGB CONC 32.8 g/dL (32.0-36.0); MEAN CORPUSCULAR VOLUME 79 fl (80-97); MONOCYTES % (AUTO) 11.5 % (3-13); PLATELET COUNT 853 10^3/uL (150-450); RED BLOOD COUNT 3.89 10^6/uL (4.35-5.55); RED CELL DISTRIBUTION WIDTH 18.7 % (11.5-14.0); SEGMENTED NEUTROPHILS % (AUTO) 49.6 % (42-78); TOTAL CELLS COUNTED % (AUTO) 100 %; WHITE BLOOD COUNT 17.5 10^3/uL (4.0-10.5)
[2017-10-02 09:34] LABS: ALANINE AMINOTRANSFERASE 21 U/L (21-72); ALBUMIN 2.5 g/dL (3.5-5.0); ALKALINE PHOSPHATASE 161 U/L (38-126); ASPARTATE AMINO TRANSFERASE 11 U/L (17-59); BILIRUBIN,DIRECT 0.3 mg/dL (0.0-0.4); BILIRUBIN,TOTAL 0.3 mg/dL (0.2-1.3); BLOOD UREA NITROGEN 5 mg/dL (7-20); CHLORIDE 102 mmol/L (98-107); POTASSIUM 3.1 mmol/L (3.6-5.0); TOTAL PROTEIN 6.8 g/dL (6.3-8.2)
[2017-10-02 09:35] LABS: GLUCOSE 101 mg/dL (75-110)
[2017-10-02 09:37] LABS: CARBON DIOXIDE 34 mmol/L (22-30)
[2017-10-02 09:59] LABS: ANION GAP 4 (5-19)
[2017-10-02] MEDS: COLLAGENASE CLOSTRIDIUM HIST. OINT 30 GM TOP PRN (10:25)
[2017-10-02] MEDS: DEXTROSE 5%-1/2 NORMAL SALINE 1,000 ML IV PRN (10:28)
[2017-10-02] MEDS: DULOXETINE HCL 30 MG CAPSULE.DR PO SCH ×2 (10:28→21:24)
[2017-10-02] MEDS: MORPHINE SULFATE SR 100 MG TABLET PO SCH ×2 (10:29→21:25)
[2017-10-02] MEDS: FINASTERIDE 5 MG TABLET PO SCH (10:29)
[2017-10-02] MEDS: NYSTATIN 500000 UNIT/5 ML UDCUP PO SCH ×4 (10:30→21:23)
[2017-10-02] MEDS: ENOXAPARIN SODIUM INJ 40 MG/0.4 ML DISP.SYRIN SUBCUT SCH (10:30)
[2017-10-02] MEDS: MULTIVITAMINS W-IRON TABLET, CHEWABLE PO SCH (10:30)
[2017-10-02] MEDS: FAMOTIDINE 20 MG TABLET PO SCH ×2 (10:30→21:23)
--- NOTE | 2017-10-02 11:18 | PDOC PROGRESS REPORT ---
Subjective Progress Note for:: 10/02/17 Subjective:: Reviewed labs, now send out labs are all in, as noted previously we did an extensive w/u for myeloproliferative causes and leukemic causes of persistent leukocytosis Reason For Visit: DKA, SEPSIS Physical Exam Vital Signs: Assessment & Plan - Diagnosis (1) Leukocytosis Qualifiers: Leukocytosis type: leukemoid reaction Qualified Code(s): D72.823 - Leukemoid reaction Is this a current diagnosis for this admission?: Yes Plan: Thus far sent testing including w/u such as FISH and standard cytogenetics for BCR/ABL, flow cytometry and ANÍBAL-2 extended mutational analysis, all this is negative effectively ruling out myeloproliferative and leukemic causes of leukocytosis, this is most likely a reactive process. No further hematologic or oncologic w/u needed for this issue. Will sign off, thanks for the opportunity to assist in this patient's care.
[2017-10-02] MEDS ORDERED: POTASSIUM CHLORIDE 20 MEQ/15 ML UDCUP PO ONE (15:45)
[2017-10-02] MEDS: HYDROMORPHONE HCL INJ/PF 2 MG/ML AMPULE IV PRN (17:01)
--- NOTE | 2017-10-02 17:43 | PDOC PROGRESS REPORT ---
Subjective Progress Note for:: 10/02/17 Subjective:: Pt states that he is very hungry. Pt states that he is feeling better. Reason For Visit: DKA, SEPSIS Physical Exam Vital Signs: Temp Pulse Resp BP Pulse Ox 99.6 F 93 16 125/80 100 10/02/17 15:49 10/02/17 15:49 10/02/17 15:49 10/02/17 15:49 10/02/17 15:49 Intake & Output 10/01/17 10/02/17 10/03/17 06:59 06:59 06:59 Intake Total 2031 3450 250 Output Total 3200 3375 650 Balance -1168 75 -400 Weight 57.4 kg 57.3 kg General appearance: PRESENT: no acute distress, thin, well-developed Head exam: PRESENT: atraumatic, normocephalic Eye exam: PRESENT: conjunctiva pink, EOMI. ABSENT: scleral icterus Ear exam: PRESENT: normal external ear exam Mouth exam: PRESENT: moist, tongue midline Neck exam: ABSENT: carotid bruit, JVD, lymphadenopathy, thyromegaly Respiratory exam: PRESENT: clear to auscultation [place]. ABSENT: rales, rhonchi, wheezes Cardiovascular exam: PRESENT: RRR. ABSENT: diastolic murmur, rubs, systolic murmur Pulses: PRESENT: normal dorsalis pedis pul Vascular exam: PRESENT: normal capillary refill GI/Abdominal exam: PRESENT: normal bowel sounds, soft. ABSENT: distended, guarding, mass, organolmegaly, rebound, tenderness Rectal exam: PRESENT: deferred Extremities exam: PRESENT: full ROM. ABSENT: calf tenderness, clubbing, pedal edema Musculoskeletal exam: PRESENT: full ROM Neurological exam: PRESENT: alert, awake, oriented to person, oriented to place , oriented to time, oriented to situation, CN II-XII grossly intact. ABSENT: motor sensory deficit Psychiatric exam: PRESENT: appropriate affect, normal mood. ABSENT: homicidal ideation, suicidal ideation Skin exam: PRESENT: dry, intact, warm. ABSENT: cyanosis, rash Results Laboratory Results: 10/02/17 09:04 10/02/17 09:04 10/01/17 10/02/17 10/02/17 17:00 01:33 09:04 WBC 15.9 H 17.5 H RBC 3.52 L 3.89 L Hgb 9.1 L 10.1 L Hct 28.0 L 30.7 L MCV 79 L 79 L MCH 25.9 L 25.9 L MCHC 32.7 32.8 RDW 18.5 H 18.7 H Plt Count 628 H 853 H Seg Neutrophils % 52.5 49.6 Lymphocytes % 29.9 33.5 Monocytes % 11.8 11.5 Eosinophils % 4.4 4.7 Basophils % 1.4 0.7 Absolute Neutrophils 8.4 H 8.7 H Absolute Lymphocytes 4.8 H 5.9 H Absolute Monocytes 1.9 H 2.0 H Absolute Eosinophils 0.7 H 0.8 H Absolute Basophils 0.2 0.1 Sodium Potassium Chloride Carbon Dioxide Anion Gap BUN Creatinine Est GFR ( Amer) Est GFR (Non-Af Amer) Glucose Calcium Magnesium Total Bilirubin AST ALT Alkaline Phosphatase Total Protein Albumin Blood Type B POSITIVE Antibody Screen NEGATIVE 10/02/17 09:04 WBC RBC Hgb Hct MCV MCH MCHC RDW Plt Count Seg Neutrophils % Lymphocytes % Monocytes % Eosinophils % Basophils % Absolute Neutrophils Absolute Lymphocytes Absolute Monocytes Absolute Eosinophils Absolute Basophils Sodium 140.0 Potassium 3.1 L Chloride 102 Carbon Dioxide 34 H Anion Gap 4 L BUN 5 L Creatinine 0.63 Est GFR ( Amer) > 60 Est GFR (Non-Af Amer) > 60 Glucose 101 Calcium 9.0 Magnesium 1.6 Total Bilirubin 0.3 AST 11 L ALT 21 Alkaline Phosphatase 161 H Total Protein 6.8 Albumin 2.5 L Blood Type Antibody Screen 08/24/17 08/24/17 08/25/17 18:00 22:00 05:15 Creatine Kinase 140 117 82 CK-MB (CK-2) Troponin I NT-Pro-B Natriuret Pep 09/02/17 09/02/17 09/03/17 17:45 17:45 05:35 Creatine Kinase 50 L CK-MB (CK-2) 0.40 Troponin I 0.027 NT-Pro-B Natriuret Pep 4690 H Impressions: Thoracic Spine CT 08/26/17 08:00 IMPRESSION: No acute findings in the thoracic spine. Abdomen/Pelvis CT 08/27/17 00:00 IMPRESSION: 1. Extensive basilar pulmonary changes suggesting pneumonia. 2. No evidence of intra- abdominal or intrapelvic abscess or drainable collection. Postoperative changes as above without evidence of mechanical bowel obstruction. 3. Marked irregular soft tissue loss in the proximal left posterior and medial thigh, incompletely assessed. No suggestion of regional drainable collection as imaged. Chest X-Ray 09/13/17 00:00 IMPRESSION: NO ACUTE RADIOGRAPHIC FINDING IN THE CHEST. Assessment & Plan - Diagnosis (1) Hypokalemia Is this a current diagnosis for this admission?: Yes Plan: Will give Potassium 60mEq PO X 1. Will place pt on BMP and Mg in am. (2) Hypomagnesemia Is this a current diagnosis for this admission?: Yes Plan: Magnesium in am (3) Anemia Is this a current diagnosis for this admission?: Yes Plan: Multifactorial and bleeding vessel that need to be sutured: Will continue to monitor. Anemia most likely worsened by debridement. Pt hemoccult positive. No acute bleed in addition pt has had significant debridement. (4) Hypokalemia Is this a current diagnosis for this admission?: Yes Plan: Resolved. (5) Abscess or cellulitis of perineum Is this a current diagnosis for this admission?: Yes Plan: S/P Debridement due to E. coli and Enterobacter Aerogenes: Will continue Zosyn. (6) Crohns disease Qualifiers: Gastrointestinal tract location: unspecified location Is this a current diagnosis for this admission?: Yes Plan: Appreciate GI evaluating pt. (7) Diabetes mellitus Qualifiers: Diabetes mellitus type: type 1 Diabetes mellitus complication status: with unspecified complications Qualified Code(s): E10.8 - Type 1 diabetes mellitus with unspecified complications Is this a current diagnosis for this admission?: Yes Plan: Continue current treatment plan. (8) Pneumonia Qualifiers: Laterality: bilateral Lung location: unspecified part of lung Is this a current diagnosis for this admission?: Yes Plan: Resolved (9) Leukocytosis Qualifiers: Leukocytosis type: leukemoid reaction Qualified Code(s): D72.823 - Leukemoid reaction Is this a current diagnosis for this admission?: Yes Plan: Secondary to Multifactorial Causes ie Crohns, chronic wounds: Resolving. (10) Hypotension Qualifiers: Hypotension type: other hypotension type Qualified Code(s): I95.89 - Other hypotension Is this a current diagnosis for this admission?: Yes Plan: Resolved. (11) Diabetic keto-acidosis Qualifiers: Diabetes mellitus type: type 1 Diabetes mellitus complication detail: with coma Qualified Code(s): E10.11 - Type 1 diabetes mellitus with ketoacidosis with coma Is this a current diagnosis for this admission?: Yes Plan: Resolved. (12) Severe protein-calorie malnutrition Is this a current diagnosis for this admission?: Yes Plan: Will encourage PO intake and continue supplemental drink. (13) Hidradenitis suppurativa of anus Is this a current diagnosis for this admission?: Yes Plan: S/P Debridement in setting of E. Coli and Enterobacter Aerogenes: Will continue current Zosyn. (14) Hypoxic brain injury Is this a current diagnosis for this admission?: Yes Plan: Resolved. (15) Diabetic neuropathy Qualifiers: Diabetes mellitus type: type 1 Diabetes mellitus complication detail: diabetic polyneuropathy Qualified Code(s): E10.42 - Type 1 diabetes mellitus with diabetic polyneuropathy Is this a current diagnosis for this admission?: Yes Plan: Supportive of care. (16) Chronic pain Qualifiers: Chronic pain type: chronic pain syndrome Qualified Code(s): G89.4 - Chronic pain syndrome Is this a current diagnosis for this admission?: Yes Plan: Will continue pain medications. (17) Opioid dependence in controlled environment Is this a current diagnosis for this admission?: Yes Plan: Will continue pain medication. (18) Hypercalcemia due to immobilization Is this a current diagnosis for this admission?: Yes Plan: Resolved (19) Hematuria Is this a current diagnosis for this admission?: Yes Plan: Secondary to Trauma: Resolved. (20) Hypernatremia Is this a current diagnosis for this admission?: Yes Plan: resolved. (21) DVT prophylaxis Is this a current diagnosis for this admission?: Yes Plan: Lovenox - Time Time Spent with patient: 15-24 minutes
[2017-10-02] MEDS: MAGNESIUM SULFATE/D5W 1 GM/100 ML RTUPB IV SCH ×2 (18:35→19:52)
[2017-10-02] MEDS: QUETIAPINE FUMARATE 25 MG TABLET PO SCH (21:24)
[2017-10-02] MEDS: TAMSULOSIN HCL 0.4 MG CAP.SR.24H PO SCH (21:25)
--- NOTE | 2017-10-02 22:33 | PDOC PROGRESS REPORT ---
Subjective Progress Note for:: 10/02/17 Subjective:: No more bleeding from groin wound Reason For Visit: DKA, SEPSIS Physical Exam Vital Signs: Temp Pulse Resp BP Pulse Ox 99.6 F 100 16 125/80 100 10/02/17 15:49 10/02/17 19:00 10/02/17 15:49 10/02/17 15:49 10/02/17 15:49 Intake & Output 10/01/17 10/02/17 10/03/17 06:59 06:59 06:59 Intake Total 2032 3450 1450 Output Total 3200 3375 1550 Balance -1168 75 -100 Weight 57.4 kg 57.3 kg Respiratory exam: PRESENT: clear to auscultation daija. ABSENT: rales, rhonchi, wheezes Cardiovascular exam: PRESENT: RRR. ABSENT: diastolic murmur, rubs, systolic murmur GI/Abdominal exam: PRESENT: normal bowel sounds, soft, other - colostomy in place, working. Neurological exam: PRESENT: alert, awake, oriented to person, oriented to place , oriented to time, oriented to situation, CN II-XII grossly intact Skin exam: PRESENT: other - sacral and left hip decubiti with wound vacs; bilateral groin /perineal wounds with wet to dry dressings Results Laboratory Results: 10/02/17 09:04 10/02/17 09:04 10/02/17 10/02/17 10/02/17 01:33 09:04 09:04 WBC 15.9 H 17.5 H RBC 3.52 L 3.89 L Hgb 9.1 L 10.1 L Hct 28.0 L 30.7 L MCV 79 L 79 L MCH 25.9 L 25.9 L MCHC 32.7 32.8 RDW 18.5 H 18.7 H Plt Count 628 H 853 H Seg Neutrophils % 52.5 49.6 Lymphocytes % 29.9 33.5 Monocytes % 11.8 11.5 Eosinophils % 4.4 4.7 Basophils % 1.4 0.7 Absolute Neutrophils 8.4 H 8.7 H Absolute Lymphocytes 4.8 H 5.9 H Absolute Monocytes 1.9 H 2.0 H Absolute Eosinophils 0.7 H 0.8 H Absolute Basophils 0.2 0.1 Sodium 140.0 Potassium 3.1 L Chloride 102 Carbon Dioxide 34 H Anion Gap 4 L BUN 5 L Creatinine 0.63 Est GFR ( Amer) > 60 Est GFR (Non-Af Amer) > 60 Glucose 101 Calcium 9.0 Magnesium 1.6 Total Bilirubin 0.3 AST 11 L ALT 21 Alkaline Phosphatase 161 H Total Protein 6.8 Albumin 2.5 L 08/24/17 08/24/17 08/25/17 18:00 22:00 05:15 Creatine Kinase 140 117 82 CK-MB (CK-2) Troponin I NT-Pro-B Natriuret Pep 09/02/17 09/02/17 09/03/17 17:45 17:45 05:35 Creatine Kinase 50 L CK-MB (CK-2) 0.40 Troponin I 0.027 NT-Pro-B Natriuret Pep 4690 H Impressions: Thoracic Spine CT 08/26/17 08:00 IMPRESSION: No acute findings in the thoracic spine. Abdomen/Pelvis CT 08/27/17 00:00 IMPRESSION: 1. Extensive basilar pulmonary changes suggesting pneumonia. 2. No evidence of intra- abdominal or intrapelvic abscess or drainable collection. Postoperative changes as above without evidence of mechanical bowel obstruction. 3. Marked irregular soft tissue loss in the proximal left posterior and medial thigh, incompletely assessed. No suggestion of regional drainable collection as imaged. Chest X-Ray 09/13/17 00:00 IMPRESSION: NO ACUTE RADIOGRAPHIC FINDING IN THE CHEST. Assessment & Plan - Diagnosis (1) Hidradenitis suppurativa of anus Is this a current diagnosis for this admission?: Yes (2) Groin abscess Is this a current diagnosis for this admission?: Yes (3) Diabetic keto-acidosis Qualifiers: Diabetes mellitus type: type 1 Diabetes mellitus complication detail: with coma Qualified Code(s): E10.11 - Type 1 diabetes mellitus with ketoacidosis with coma Is this a current diagnosis for this admission?: Yes (4) Sacral decubitus ulcer, stage III Is this a current diagnosis for this admission?: Yes (5) Decubitus ulcer, hip, left, unstageable Is this a current diagnosis for this admission?: Yes (6) Hidradenitis Is this a current diagnosis for this admission?: Yes - Plan Summary Plan Summary: Continue wound vac to sacral and left hip decubiti and wet to dry dressings to groin/perineal wounds.
[2017-10-03] MEDS: ONDANSETRON 4 MG TAB.RAPDIS PO PRN (00:41)
[2017-10-03] MEDS: OXYCODONE HCL IR 5 MG TABLET PO PRN ×3 (01:12→21:41)
[2017-10-03] MEDS: PIPERACILLIN SODIUM/TAZOBACTAM 4.5 GM in NORMAL SALINE 100 ML IV SCH ×4 (03:19→21:38)
[2017-10-03 05:20] LABS: HEMATOCRIT 28.5 % (37.9-51.0); HEMOGLOBIN 9.6 g/dL (13.5-17.0); MEAN CORPUSCULAR HEMOGLOBIN 26.5 pg (27.0-33.4); MEAN CORPUSCULAR HGB CONC 33.6 g/dL (32.0-36.0); MEAN CORPUSCULAR VOLUME 79 fl (80-97); PLATELET COUNT 795 10^3/uL (150-450); RED BLOOD COUNT 3.62 10^6/uL (4.35-5.55); RED CELL DISTRIBUTION WIDTH 18.5 % (11.5-14.0); WHITE BLOOD COUNT 18.1 10^3/uL (4.0-10.5)
[2017-10-03] MEDS: DILTIAZEM HCL 60 MG TABLET PO SCH ×3 (06:05→17:03)
[2017-10-03] MEDS: DULOXETINE HCL 30 MG CAPSULE.DR PO SCH ×2 (09:53→21:36)
[2017-10-03] MEDS: FAMOTIDINE 20 MG TABLET PO SCH ×2 (09:53→21:37)
[2017-10-03] MEDS: MORPHINE SULFATE SR 100 MG TABLET PO SCH ×2 (09:58→21:37)
[2017-10-03] MEDS: ENOXAPARIN SODIUM INJ 40 MG/0.4 ML DISP.SYRIN SUBCUT SCH (09:58)
[2017-10-03] MEDS: NYSTATIN 500000 UNIT/5 ML UDCUP PO SCH ×4 (09:58→21:42)
[2017-10-03] MEDS: MULTIVITAMINS W-IRON TABLET, CHEWABLE PO SCH (09:58)
[2017-10-03] MEDS: FINASTERIDE 5 MG TABLET PO SCH (09:58)
[2017-10-03 10:00] LABS: ALANINE AMINOTRANSFERASE 18 U/L (21-72); ALBUMIN 2.5 g/dL (3.5-5.0); ALKALINE PHOSPHATASE 167 U/L (38-126); ANION GAP 6 (5-19); ASPARTATE AMINO TRANSFERASE 10 U/L (17-59); BLOOD UREA NITROGEN 5 mg/dL (7-20); CALCIUM 8.7 mg/dL (8.4-10.2); CARBON DIOXIDE 35 mmol/L (22-30); CHLORIDE 98 mmol/L (98-107); GLUCOSE 108 mg/dL (75-110); POTASSIUM 3.7 mmol/L (3.6-5.0); SODIUM 139.4 mmol/L (137-145); TOTAL PROTEIN 6.5 g/dL (6.3-8.2)
[2017-10-03 10:01] LABS: BILIRUBIN,TOTAL < 0.1 mg/dL (0.2-1.3)
--- NOTE | 2017-10-03 12:30 | PDOC PROGRESS REPORT ---
Subjective Progress Note for:: 10/03/17 Subjective:: Pt states that he is doing ok this morning. Pt states that his appetite is good. Reason For Visit: DKA, SEPSIS Physical Exam Vital Signs: Temp Pulse Resp BP Pulse Ox 98.2 F 88 16 136/70 H 99 10/03/17 07:21 10/03/17 07:21 10/03/17 07:21 10/03/17 07:21 10/03/17 07:21 Intake & Output 10/02/17 10/03/17 10/04/17 06:59 06:59 06:59 Intake Total 3450 5898 Output Total 3375 3750 Balance 75 2148 Weight 57.3 kg 57 kg General appearance: PRESENT: no acute distress, thin, well-developed Head exam: PRESENT: atraumatic, normocephalic Eye exam: PRESENT: conjunctiva pink, EOMI. ABSENT: scleral icterus Ear exam: PRESENT: normal external ear exam Mouth exam: PRESENT: moist, tongue midline Neck exam: ABSENT: carotid bruit, JVD, lymphadenopathy, thyromegaly Respiratory exam: PRESENT: clear to auscultation daija. ABSENT: rales, rhonchi, wheezes Cardiovascular exam: PRESENT: RRR. ABSENT: diastolic murmur, rubs, systolic murmur Pulses: PRESENT: normal dorsalis pedis pul Vascular exam: PRESENT: normal capillary refill GI/Abdominal exam: PRESENT: normal bowel sounds, soft. ABSENT: distended, guarding, mass, organolmegaly, rebound, tenderness Rectal exam: PRESENT: deferred Extremities exam: PRESENT: full ROM. ABSENT: calf tenderness, clubbing, pedal edema Musculoskeletal exam: PRESENT: full ROM Neurological exam: PRESENT: alert, awake, oriented to person, oriented to place , oriented to time, oriented to situation, CN II-XII grossly intact. ABSENT: motor sensory deficit Psychiatric exam: PRESENT: appropriate affect, normal mood. ABSENT: homicidal ideation, suicidal ideation Skin exam: PRESENT: dry, intact, warm, other - + wound vac in place. ABSENT: cyanosis, rash Results Laboratory Results: 10/03/17 04:30 10/03/17 08:30 10/03/17 10/03/17 04:30 08:30 WBC 18.1 H RBC 3.62 L Hgb 9.6 L Hct 28.5 L MCV 79 L MCH 26.5 L MCHC 33.6 RDW 18.5 H Plt Count 795 H Sodium 139.4 Potassium 3.7 Chloride 98 Carbon Dioxide 35 H Anion Gap 6 BUN 5 L Creatinine 0.63 Est GFR ( Amer) > 60 Est GFR (Non-Af Amer) > 60 Glucose 108 Calcium 8.7 Magnesium 1.8 Total Bilirubin < 0.1 L AST 10 L ALT 18 L Alkaline Phosphatase 167 H Total Protein 6.5 Albumin 2.5 L 08/24/17 08/24/17 08/25/17 18:00 22:00 05:15 Creatine Kinase 140 117 82 CK-MB (CK-2) Troponin I NT-Pro-B Natriuret Pep 09/02/17 09/02/17 09/03/17 17:45 17:45 05:35 Creatine Kinase 50 L CK-MB (CK-2) 0.40 Troponin I 0.027 NT-Pro-B Natriuret Pep 4690 H Impressions: Thoracic Spine CT 08/26/17 08:00 IMPRESSION: No acute findings in the thoracic spine. Abdomen/Pelvis CT 08/27/17 00:00 IMPRESSION: 1. Extensive basilar pulmonary changes suggesting pneumonia. 2. No evidence of intra- abdominal or intrapelvic abscess or drainable collection. Postoperative changes as above without evidence of mechanical bowel obstruction. 3. Marked irregular soft tissue loss in the proximal left posterior and medial thigh, incompletely assessed. No suggestion of regional drainable collection as imaged. Chest X-Ray 09/13/17 00:00 IMPRESSION: NO ACUTE RADIOGRAPHIC FINDING IN THE CHEST. Assessment & Plan - Diagnosis (1) Hypokalemia Is this a current diagnosis for this admission?: Yes Plan: resolved. (2) Hypomagnesemia Is this a current diagnosis for this admission?: Yes Plan: Will give Mg replacement. Will check magnesium in am. (3) Anemia Is this a current diagnosis for this admission?: Yes Plan: Multifactorial and bleeding vessel that need to be sutured: Will continue to monitor. Anemia most likely worsened by debridement. Pt hemoccult positive. No acute bleed in addition pt has had significant debridement. (4) Hypokalemia Is this a current diagnosis for this admission?: Yes Plan: Resolved. (5) Abscess or cellulitis of perineum Is this a current diagnosis for this admission?: Yes Plan: S/P Debridement due to E. coli and Enterobacter Aerogenes: Will continue Zosyn. (6) Crohns disease Qualifiers: Gastrointestinal tract location: unspecified location Is this a current diagnosis for this admission?: Yes Plan: Appreciate GI evaluating pt. (7) Diabetes mellitus Qualifiers: Diabetes mellitus type: type 1 Diabetes mellitus complication status: with unspecified complications Qualified Code(s): E10.8 - Type 1 diabetes mellitus with unspecified complications Is this a current diagnosis for this admission?: Yes Plan: Continue current treatment plan. (8) Pneumonia Qualifiers: Laterality: bilateral Lung location: unspecified part of lung Is this a current diagnosis for this admission?: Yes Plan: Resolved (9) Leukocytosis Qualifiers: Leukocytosis type: leukemoid reaction Qualified Code(s): D72.823 - Leukemoid reaction Is this a current diagnosis for this admission?: Yes Plan: Secondary to Multifactorial Causes ie Crohns, chronic wounds: Resolving. (10) Hypotension Qualifiers: Hypotension type: other hypotension type Qualified Code(s): I95.89 - Other hypotension Is this a current diagnosis for this admission?: Yes Plan: Resolved. (11) Diabetic keto-acidosis Qualifiers: Diabetes mellitus type: type 1 Diabetes mellitus complication detail: with coma Qualified Code(s): E10.11 - Type 1 diabetes mellitus with ketoacidosis with coma Is this a current diagnosis for this admission?: Yes Plan: Resolved. (12) Severe protein-calorie malnutrition Is this a current diagnosis for this admission?: Yes Plan: Will encourage PO intake and continue supplemental drink. (13) Hidradenitis suppurativa of anus Is this a current diagnosis for this admission?: Yes Plan: S/P Debridement in setting of E. Coli and Enterobacter Aerogenes: Will continue current Zosyn. (14) Hypoxic brain injury Is this a current diagnosis for this admission?: Yes Plan: Resolved. (15) Diabetic neuropathy Qualifiers: Diabetes mellitus type: type 1 Diabetes mellitus complication detail: diabetic polyneuropathy Qualified Code(s): E10.42 - Type 1 diabetes mellitus with diabetic polyneuropathy Is this a current diagnosis for this admission?: Yes Plan: Supportive of care. (16) Chronic pain Qualifiers: Chronic pain type: chronic pain syndrome Qualified Code(s): G89.4 - Chronic pain syndrome Is this a current diagnosis for this admission?: Yes Plan: Will continue pain medications. (17) Opioid dependence in controlled environment Is this a current diagnosis for this admission?: Yes Plan: Will continue pain medication. (18) Hypercalcemia due to immobilization Is this a current diagnosis for this admission?: Yes Plan: Resolved (19) Hematuria Is this a current diagnosis for this admission?: Yes Plan: Secondary to Trauma: Resolved. (20) Hypernatremia Is this a current diagnosis for this admission?: Yes Plan: resolved. (21) DVT prophylaxis Is this a current diagnosis for this admission?: Yes Plan: Lovenox - Time Time Spent with patient: 15-24 minutes
[2017-10-03] MEDS: MAGNESIUM SULFATE/D5W 1 GM/100 ML RTUPB IV SCH ×2 (14:17→15:32)
[2017-10-03] MEDS: HYDROMORPHONE HCL INJ/PF 2 MG/ML AMPULE IV PRN (17:03)
[2017-10-03] MEDS: QUETIAPINE FUMARATE 25 MG TABLET PO SCH (21:35)
[2017-10-03] MEDS: TAMSULOSIN HCL 0.4 MG CAP.SR.24H PO SCH (21:37)
[2017-10-04] MEDS: PIPERACILLIN SODIUM/TAZOBACTAM 4.5 GM in NORMAL SALINE 100 ML IV SCH ×3 (02:54→15:52)
[2017-10-04] MEDS: DILTIAZEM HCL 60 MG TABLET PO SCH ×3 (02:54→17:39)
[2017-10-04] MEDS: HYDROMORPHONE HCL INJ/PF 2 MG/ML AMPULE IV PRN ×2 (05:11→17:39)
[2017-10-04 06:45] LABS: APPEARANCE,URINE CLEAR; BILIRUBIN,URINE NEGATIVE (NEGATIVE); COLOR,URINE STRAW; GLUCOSE, URINE NEGATIVE (NEGATIVE); KETONES,URINE NEGATIVE (NEGATIVE); LEUKOCYTE ESTERASE,URINE NEGATIVE (NEGATIVE); NITRITE,URINE NEGATIVE (NEGATIVE); PROTEIN,URINE NEGATIVE (NEGATIVE); URINE SPECIFIC GRAVITY 1.006; UROBILINOGEN,URINE NEGATIVE mg/dL (<2.0)
[2017-10-04 07:18] LABS: ALANINE AMINOTRANSFERASE 16 U/L (21-72); ALBUMIN 2.4 g/dL (3.5-5.0); ALKALINE PHOSPHATASE 188 U/L (38-126); ANION GAP 6 (5-19); ASPARTATE AMINO TRANSFERASE 11 U/L (17-59); BILIRUBIN,DIRECT 0.1 mg/dL (0.0-0.4); BILIRUBIN,TOTAL 0.1 mg/dL (0.2-1.3); BLOOD UREA NITROGEN 7 mg/dL (7-20); CARBON DIOXIDE 36 mmol/L (22-30); CHLORIDE 97 mmol/L (98-107); GLUCOSE 110 mg/dL (75-110); POTASSIUM 3.9 mmol/L (3.6-5.0); SODIUM 138.9 mmol/L (137-145); TOTAL PROTEIN 6.5 g/dL (6.3-8.2)
[2017-10-04] MEDS: OXYCODONE HCL IR 5 MG TABLET PO PRN ×3 (08:17→20:39)
[2017-10-04] MEDS: DULOXETINE HCL 30 MG CAPSULE.DR PO SCH (09:47)
[2017-10-04] MEDS: FAMOTIDINE 20 MG TABLET PO SCH ×2 (09:48→21:15)
[2017-10-04] MEDS: FINASTERIDE 5 MG TABLET PO SCH (09:48)
[2017-10-04] MEDS: MULTIVITAMINS W-IRON TABLET, CHEWABLE PO SCH (09:48)
[2017-10-04] MEDS: NYSTATIN 500000 UNIT/5 ML UDCUP PO SCH ×4 (09:48→21:15)
[2017-10-04] MEDS: MORPHINE SULFATE SR 100 MG TABLET PO SCH ×2 (09:48→21:14)
[2017-10-04] MEDS: ENOXAPARIN SODIUM INJ 40 MG/0.4 ML DISP.SYRIN SUBCUT SCH (11:45)
--- NOTE | 2017-10-04 13:38 | PDOC PROGRESS REPORT ---
Subjective Progress Note for:: 10/04/17 Subjective:: Patient admitted with septic shock, denies any new symptoms. He is bed bound though says he was ambulatory till recently. Reason For Visit: DKA, SEPSIS Physical Exam Vital Signs: Temp Pulse Resp BP Pulse Ox 98.3 F 91 16 124/81 97 10/04/17 11:45 10/04/17 11:45 10/04/17 11:45 10/04/17 11:45 10/04/17 11:45 Intake & Output 10/03/17 10/04/17 10/05/17 06:59 06:59 06:59 Intake Total 5898 3000 237 Output Total 3750 3100 500 Balance 2148 -100 -263 Weight 57 kg 57 kg General appearance: PRESENT: no acute distress, thin - Cachectic Head exam: PRESENT: atraumatic Eye exam: PRESENT: conjunctiva pink, EOMI, PERRLA. ABSENT: scleral icterus Neck exam: ABSENT: carotid bruit, JVD, lymphadenopathy, thyromegaly Respiratory exam: PRESENT: clear to auscultation daija. ABSENT: rales, rhonchi, wheezes Cardiovascular exam: PRESENT: RRR. ABSENT: diastolic murmur, rubs, systolic murmur Vascular exam: PRESENT: normal capillary refill Rectal exam: PRESENT: deferred Musculoskeletal exam: PRESENT: other - Left and right groin dressing Neurological exam: PRESENT: alert, awake, oriented to person, oriented to place , oriented to time Psychiatric exam: PRESENT: appropriate affect, normal mood. ABSENT: homicidal ideation, suicidal ideation Skin exam: PRESENT: other - Multiple skin lesions and abrasions and wounds as detailed in nurse's notes Results Laboratory Results: 10/03/17 04:30 10/04/17 06:00 10/04/17 10/04/17 10/04/17 06:00 06:00 06:00 Sodium 138.9 Potassium 3.9 Chloride 97 L Carbon Dioxide 36 H Anion Gap 6 BUN 7 Creatinine 0.72 Est GFR ( Amer) > 60 Est GFR (Non-Af Amer) > 60 Glucose 110 Calcium 9.0 Magnesium 1.8 Total Bilirubin 0.1 L AST 11 L ALT 16 L Alkaline Phosphatase 188 H Total Protein 6.5 Albumin 2.4 L Urine Color STRAW Urine Appearance CLEAR Urine pH 7.0 Ur Specific Hazard 1.006 Urine Protein NEGATIVE Urine Glucose (UA) NEGATIVE Urine Ketones NEGATIVE Urine Blood NEGATIVE Urine Nitrite NEGATIVE Ur Leukocyte Esterase NEGATIVE Urine WBC (Auto) 1 Urine RBC (Auto) 1 Stool Occult Blood POSITIVE 08/24/17 08/24/17 08/25/17 18:00 22:00 05:15 Creatine Kinase 140 117 82 CK-MB (CK-2) Troponin I NT-Pro-B Natriuret Pep 09/02/17 09/02/17 09/03/17 17:45 17:45 05:35 Creatine Kinase 50 L CK-MB (CK-2) 0.40 Troponin I 0.027 NT-Pro-B Natriuret Pep 4690 H Impressions: Thoracic Spine CT 08/26/17 08:00 IMPRESSION: No acute findings in the thoracic spine. Abdomen/Pelvis CT 08/27/17 00:00 IMPRESSION: 1. Extensive basilar pulmonary changes suggesting pneumonia. 2. No evidence of intra- abdominal or intrapelvic abscess or drainable collection. Postoperative changes as above without evidence of mechanical bowel obstruction. 3. Marked irregular soft tissue loss in the proximal left posterior and medial thigh, incompletely assessed. No suggestion of regional drainable collection as imaged. Chest X-Ray 09/13/17 00:00 IMPRESSION: NO ACUTE RADIOGRAPHIC FINDING IN THE CHEST. Assessment & Plan - Diagnosis (1) Abscess or cellulitis of perineum Is this a current diagnosis for this admission?: Yes (2) Anemia Qualifiers: Anemia type: due to chronic kidney disease Chronic kidney disease stage: unspecified stage Qualified Code(s): N18.9 - Chronic kidney disease, unspecified; D63.1 - Anemia in chronic kidney disease; D63.1 - Anemia in chronic kidney disease (3) Chronic pain Qualifiers: Chronic pain type: chronic pain syndrome Qualified Code(s): G89.4 - Chronic pain syndrome Is this a current diagnosis for this admission?: Yes (4) Decubitus ulcer Qualifiers: Pressure ulcer location: sacral region Pressure ulcer stage: stage 3 Qualified Code(s): L89.153 - Pressure ulcer of sacral region, stage 3 Is this a current diagnosis for this admission?: Yes (5) Diabetes mellitus Qualifiers: Diabetes mellitus type: type 1 Diabetes mellitus complication status: with unspecified complications Qualified Code(s): E10.8 - Type 1 diabetes mellitus with unspecified complications Is this a current diagnosis for this admission?: Yes (6) Groin abscess Is this a current diagnosis for this admission?: Yes (7) Hidradenitis suppurativa of anus Is this a current diagnosis for this admission?: Yes (9) Severe protein-calorie malnutrition Is this a current diagnosis for this admission?: Yes - Time Time Spent with patient: 15-24 minutes Medications reviewed and adjusted accordingly: Yes Anticipated discharge: Acute Rehab - Inpatient Certification Based on my medical assessment, after consideration of the patient's comorbidities, presenting symptoms, or acuity I expect that the services needed warrant INPATIENT care.: Yes Medical Necessity: Need for IV Antibiotics, Risk of Diagnosis Which Will Require Inpatient Eval/Care/Monitoring - Plan Summary Plan Summary: Patient was admitted with sepsis and was initially in the intensive care unit due to respiratory failure. He also had a transient episode of atrial fibrillation at that time. His sepsis was found to be secondary to severe cellulitis compared to groin abscess. Patient also has a history of hidradenitis suppurativa and has had numerous surgical debridement since been in hospital. He has been on various antibiotics with the latest iteration being Zosyn. He is malnourished and is being given supportive nutritional treatment. Is also anemic likely worsened by his prolonged hospitalization as well as frequent phlebotomies and acute illnesses. Patient does appear to be relatively stable at this time and hopefully he will continue to improve but eventually need rehab at discharge.
--- NOTE | 2017-10-04 15:38 | Progress Note ---
Provider Note Provider Note: ID Consult Note Asked to review patient's chart by Pharmacy. Interval events include drainage of a thigh abscess. Culture of the drainage grew E coli, Enterobacter, an enterococcus species, and Prevotella (beta-lactamase positive). Mr Borges has been treated with Zosyn. Impression/Recommendations Thigh abscess s/p drainage - Zosyn provides appropriate coverage for the organisms isolated, with the exception of the enterococcus species, but the significance of this is dubious in a mixed culture. He has been treated for more than a week at this point with Zosyn. This is likely adequate for therapy, considering that the abscess was drained. If the wound lacks surrounding erythema or induration, stop Zosyn and continue local wound care. Vasquez Kunz MD pager [phone]
[2017-10-04] MEDS: TAMSULOSIN HCL 0.4 MG CAP.SR.24H PO SCH (21:15)
[2017-10-04] MEDS: QUETIAPINE FUMARATE 25 MG TABLET PO SCH (21:15)
[2017-10-05] MEDS: DILTIAZEM HCL 60 MG TABLET PO SCH ×3 (02:47→16:55)
[2017-10-05] MEDS: OXYCODONE HCL IR 5 MG TABLET PO PRN ×4 (02:48→16:55)
[2017-10-05] MEDS: HYDROMORPHONE HCL INJ/PF 2 MG/ML AMPULE IV PRN ×2 (06:39→18:34)
[2017-10-05] MEDS: NYSTATIN 500000 UNIT/5 ML UDCUP PO SCH ×3 (09:31→18:06)
[2017-10-05] MEDS: MULTIVITAMINS W-IRON TABLET, CHEWABLE PO SCH (09:32)
[2017-10-05] MEDS: FINASTERIDE 5 MG TABLET PO SCH (09:32)
[2017-10-05] MEDS: FAMOTIDINE 20 MG TABLET PO SCH ×2 (09:32→21:15)
[2017-10-05] MEDS: MORPHINE SULFATE SR 100 MG TABLET PO SCH ×2 (09:32→21:15)
[2017-10-05] MEDS: ENOXAPARIN SODIUM INJ 40 MG/0.4 ML DISP.SYRIN SUBCUT SCH (09:32)
--- NOTE | 2017-10-05 13:41 | PDOC PROGRESS REPORT ---
Subjective Progress Note for:: 10/05/17 Subjective:: Patient admitted with septic shock, denies any new symptoms. He is bed bound though says he was ambulatory till recently. Reason For Visit: DKA, SEPSIS Physical Exam Vital Signs: Temp Pulse Resp BP Pulse Ox 97.4 F 96 14 115/71 100 10/05/17 11:35 10/05/17 11:35 10/05/17 11:35 10/05/17 11:35 10/05/17 11:35 Intake & Output 10/04/17 10/05/17 10/06/17 06:59 06:59 06:59 Intake Total 3000 2180 237 Output Total 3100 2425 575 Balance -100 -245 -338 Weight 57 kg 57.3 kg General appearance: PRESENT: no acute distress, thin, other - cachectic Head exam: PRESENT: atraumatic Ear exam: PRESENT: normal external ear exam Neck exam: ABSENT: carotid bruit, JVD, lymphadenopathy, thyromegaly Respiratory exam: PRESENT: clear to auscultation daija. ABSENT: rales, rhonchi, wheezes Cardiovascular exam: PRESENT: RRR. ABSENT: diastolic murmur, rubs, systolic murmur GI/Abdominal exam: PRESENT: normal bowel sounds, soft. ABSENT: distended, guarding, mass, organolmegaly, rebound, tenderness Rectal exam: PRESENT: deferred Results Laboratory Results: 10/03/17 04:30 10/04/17 06:00 08/24/17 08/24/17 08/25/17 18:00 22:00 05:15 Creatine Kinase 140 117 82 CK-MB (CK-2) Troponin I NT-Pro-B Natriuret Pep 09/02/17 09/02/17 09/03/17 17:45 17:45 05:35 Creatine Kinase 50 L CK-MB (CK-2) 0.40 Troponin I 0.027 NT-Pro-B Natriuret Pep 4690 H Impressions: Thoracic Spine CT 08/26/17 08:00 IMPRESSION: No acute findings in the thoracic spine. Abdomen/Pelvis CT 08/27/17 00:00 IMPRESSION: 1. Extensive basilar pulmonary changes suggesting pneumonia. 2. No evidence of intra- abdominal or intrapelvic abscess or drainable collection. Postoperative changes as above without evidence of mechanical bowel obstruction. 3. Marked irregular soft tissue loss in the proximal left posterior and medial thigh, incompletely assessed. No suggestion of regional drainable collection as imaged. Chest X-Ray 09/13/17 00:00 IMPRESSION: NO ACUTE RADIOGRAPHIC FINDING IN THE CHEST. Assessment & Plan - Diagnosis (1) Abscess or cellulitis of perineum Is this a current diagnosis for this admission?: Yes (2) Anemia Qualifiers: Anemia type: due to chronic kidney disease Chronic kidney disease stage: unspecified stage Qualified Code(s): N18.9 - Chronic kidney disease, unspecified; D63.1 - Anemia in chronic kidney disease; D63.1 - Anemia in chronic kidney disease Is this a current diagnosis for this admission?: Yes (3) Chronic pain Qualifiers: Chronic pain type: chronic pain syndrome Qualified Code(s): G89.4 - Chronic pain syndrome Is this a current diagnosis for this admission?: Yes (4) Decubitus ulcer Qualifiers: Pressure ulcer location: sacral region Pressure ulcer stage: stage 3 Qualified Code(s): L89.153 - Pressure ulcer of sacral region, stage 3 Is this a current diagnosis for this admission?: Yes (5) Diabetes mellitus Qualifiers: Diabetes mellitus type: type 1 Diabetes mellitus complication status: with unspecified complications Qualified Code(s): E10.8 - Type 1 diabetes mellitus with unspecified complications Is this a current diagnosis for this admission?: Yes (6) Groin abscess Is this a current diagnosis for this admission?: Yes (7) Hidradenitis suppurativa of anus Is this a current diagnosis for this admission?: Yes (9) Severe protein-calorie malnutrition Is this a current diagnosis for this admission?: Yes - Time Time Spent with patient: 15-24 minutes Medications reviewed and adjusted accordingly: Yes Anticipated discharge: Acute Rehab Disposition: Patient was admitted with sepsis and was initially in the intensive care unit due to respiratory failure. He also had a transient episode of atrial fibrillation at that time. His sepsis was found to be secondary to severe cellulitis compared to groin abscess. Patient also has a history of hidradenitis suppurativa and has had numerous surgical debridement since been in hospital. He has been on various antibiotics with the latest iteration being Zosyn. He is malnourished and is being given supportive nutritional treatment. Is also anemic likely worsened by his prolonged hospitalization as well as frequent phlebotomies and acute illnesses. Patient does appear to be relatively stable at this time and hopefully he will continue to improve but eventually need rehab at discharge. - Inpatient Certification Based on my medical assessment, after consideration of the patient's comorbidities, presenting symptoms, or acuity I expect that the services needed warrant INPATIENT care.: Yes Medical Necessity: Need for IV Antibiotics Post Hospital Care: Other - Plan Summary Plan Summary: Wound seems to be clean and possibly healing however he still has a lot of drainage. He has been on numerous antibiotics. Will recheck CBC and decide if appropriate to dc Antibiotics
[2017-10-05] MEDS: TAMSULOSIN HCL 0.4 MG CAP.SR.24H PO SCH (21:15)
[2017-10-05] MEDS: QUETIAPINE FUMARATE 25 MG TABLET PO SCH (21:15)
[2017-10-06] MEDS: OXYCODONE HCL IR 5 MG TABLET PO PRN ×5 (01:42→18:16)
[2017-10-06] MEDS: DILTIAZEM HCL 60 MG TABLET PO SCH ×3 (01:42→18:15)
[2017-10-06] MEDS: HYDROMORPHONE HCL INJ/PF 2 MG/ML AMPULE IV PRN ×2 (05:12→18:10)
[2017-10-06 05:24] LABS: HEMATOCRIT 28.2 % (37.9-51.0); MEAN CORPUSCULAR HEMOGLOBIN 25.7 pg (27.0-33.4); MEAN CORPUSCULAR HGB CONC 31.9 g/dL (32.0-36.0); MEAN CORPUSCULAR VOLUME 81 fl (80-97); PLATELET COUNT 933 10^3/uL (150-450); RED BLOOD COUNT 3.49 10^6/uL (4.35-5.55); RED CELL DISTRIBUTION WIDTH 19.1 % (11.5-14.0); WHITE BLOOD COUNT 23.5 10^3/uL (4.0-10.5)
[2017-10-06 05:53] LABS: ANION GAP 5 (5-19); BLOOD UREA NITROGEN 10 mg/dL (7-20); CALCIUM 9.7 mg/dL (8.4-10.2); CARBON DIOXIDE 36 mmol/L (22-30); CHLORIDE 98 mmol/L (98-107); GLUCOSE 115 mg/dL (75-110); SODIUM 138.9 mmol/L (137-145)
[2017-10-06 06:21] LABS: ABSOLUTE LYMPHOCYTES# (MANUAL) 7.1 10^3/uL (0.5-4.7); ABSOLUTE MONOCYTES # (MANUAL) 1.9 10^3/uL (0.1-1.4); ABSOLUTE NEUTROPHILS# (MANUAL) 13.2 10^3/uL (1.7-8.2); BASOPHILS % (MANUAL) 0 % (0-2); EOSINOPHILS % (MANUAL) 6 % (0-6); LYMPHOCYTES % (MANUAL) 30 % (13-45); MONOCYTES % (MANUAL) 8 % (3-13); SEGMENTED NEUTROPHILS % (MAN) 56 % (42-78); TOTAL CELLS COUNTED 100
[2017-10-06 06:23] LABS: POLYCHROMASIA SLIGHT
[2017-10-06 06:24] LABS: ANISOCYTOSIS 2+; HYPOCHROMASIA 1+; PLATELET COMMENT INCREASED; POIKILOCYTOSIS SLIGHT; TARGET CELLS SLIGHT
[2017-10-06] MEDS: FAMOTIDINE 20 MG TABLET PO SCH ×2 (10:33→21:20)
[2017-10-06] MEDS: FINASTERIDE 5 MG TABLET PO SCH (10:33)
[2017-10-06] MEDS: ONDANSETRON 4 MG TAB.RAPDIS PO PRN (10:34)
[2017-10-06] MEDS: MORPHINE SULFATE SR 100 MG TABLET PO SCH ×2 (10:36→21:21)
[2017-10-06] MEDS: DULOXETINE HCL 30 MG CAPSULE.DR PO SCH ×2 (10:37→21:20)
[2017-10-06] MEDS: MULTIVITAMINS W-IRON TABLET, CHEWABLE PO SCH (10:40)
[2017-10-06] MEDS: ENOXAPARIN SODIUM INJ 40 MG/0.4 ML DISP.SYRIN SUBCUT SCH (10:41)
[2017-10-06] MEDS: GABAPENTIN 300 MG CAPSULE PO SCH ×2 (14:24→21:20)
--- NOTE | 2017-10-06 16:36 | PDOC PROGRESS REPORT ---
Subjective Progress Note for:: 10/06/17 Subjective:: Complains of pain"all over. Has chronic pain long-acting morphine and oxycodone as needed. However appears his Cymbalta and Neurontin fell off the schedule and I will restart them. No fever or chills, no chest pain or shortness of breath or palpitations. Reason For Visit: DKA, SEPSIS Physical Exam Vital Signs: Temp Pulse Resp BP Pulse Ox 97.8 F 97 10 L 127/76 H 98 10/06/17 07:31 10/06/17 07:31 10/06/17 07:31 10/06/17 07:31 10/06/17 07:31 Intake & Output 10/05/17 10/06/17 10/07/17 06:59 06:59 06:59 Intake Total 2180 1254 550 Output Total 2425 1605 1050 Balance -245 351 -500 Weight 57.3 kg 56.1 kg GEN: NAD, well-developed, thin male CV: RRR, NL S1S2 LUNGS: CTA bilaterally ABDOMEN Soft, NT, +BS EXTERMITIES: No e/c/c NEURO: Alert, oriented SKIN: Wounds on chronic and sacral area, deep. Wound VAC in the sacral wound. Both groin and sacral wound looks clean with minimal surrounding erythema. Results Laboratory Results: 10/06/17 04:20 10/06/17 04:20 10/06/17 10/06/17 04:20 04:20 WBC 23.5 H RBC 3.49 L Hgb 9.0 L Hct 28.2 L MCV 81 MCH 25.7 L MCHC 31.9 L RDW 19.1 H Plt Count 933 H Seg Neutrophils % Not Reportable Lymphocytes % Not Reportable Monocytes % Not Reportable Eosinophils % Not Reportable Basophils % Not Reportable Absolute Neutrophils Not Reportable Absolute Lymphocytes Not Reportable Absolute Monocytes Not Reportable Absolute Eosinophils Not Reportable Absolute Basophils Not Reportable Sodium 138.9 Potassium 4.0 Chloride 98 Carbon Dioxide 36 H Anion Gap 5 BUN 10 Creatinine 0.58 Est GFR ( Amer) > 60 Est GFR (Non-Af Amer) > 60 Glucose 115 H Calcium 9.7 08/24/17 08/24/17 08/25/17 18:00 22:00 05:15 Creatine Kinase 140 117 82 CK-MB (CK-2) Troponin I NT-Pro-B Natriuret Pep 09/02/17 09/02/17 09/03/17 17:45 17:45 05:35 Creatine Kinase 50 L CK-MB (CK-2) 0.40 Troponin I 0.027 NT-Pro-B Natriuret Pep 4690 H Impressions: Thoracic Spine CT 08/26/17 08:00 IMPRESSION: No acute findings in the thoracic spine. Abdomen/Pelvis CT 08/27/17 00:00 IMPRESSION: 1. Extensive basilar pulmonary changes suggesting pneumonia. 2. No evidence of intra- abdominal or intrapelvic abscess or drainable collection. Postoperative changes as above without evidence of mechanical bowel obstruction. 3. Marked irregular soft tissue loss in the proximal left posterior and medial thigh, incompletely assessed. No suggestion of regional drainable collection as imaged. Chest X-Ray 09/13/17 00:00 IMPRESSION: NO ACUTE RADIOGRAPHIC FINDING IN THE CHEST. Assessment & Plan - Diagnosis (1) Abscess or cellulitis of perineum Is this a current diagnosis for this admission?: Yes Plan: Continue wound care. Patient with apparent worsening leukocytosis today, but this could be reactive. Wound was clean and antibiotics have been stopped by ID recommendation. We will continue to monitor. Consider restarting antibiotics if spike fevers or white blood cells continue to worsen. (2) Anemia Qualifiers: Anemia type: due to chronic kidney disease Chronic kidney disease stage: unspecified stage Qualified Code(s): N18.9 - Chronic kidney disease, unspecified; D63.1 - Anemia in chronic kidney disease; D63.1 - Anemia in chronic kidney disease Is this a current diagnosis for this admission?: Yes Plan: Continue to monitor. (3) Chronic pain Qualifiers: Chronic pain type: chronic pain syndrome Qualified Code(s): G89.4 - Chronic pain syndrome Is this a current diagnosis for this admission?: Yes Plan: Continue morphine, oxycodone. Restart Cymbalta and Neurontin per orders. (4) Decubitus ulcer Qualifiers: Pressure ulcer location: sacral region Pressure ulcer stage: stage 3 Qualified Code(s): L89.153 - Pressure ulcer of sacral region, stage 3 Is this a current diagnosis for this admission?: Yes (5) Diabetes mellitus Qualifiers: Diabetes mellitus type: type 1 Diabetes mellitus complication status: with unspecified complications Qualified Code(s): E10.8 - Type 1 diabetes mellitus with unspecified complications Is this a current diagnosis for this admission?: Yes (6) Groin abscess Is this a current diagnosis for this admission?: Yes Plan: As in abscess and cellulitis of perineum (7) Hidradenitis suppurativa of anus Is this a current diagnosis for this admission?: Yes (8) Severe protein-calorie malnutrition Is this a current diagnosis for this admission?: Yes (9) Crohns disease Qualifiers: Gastrointestinal tract location: unspecified location Is this a current diagnosis for this admission?: Yes
[2017-10-06] MEDS: QUETIAPINE FUMARATE 25 MG TABLET PO SCH (21:24)
[2017-10-06] MEDS: TAMSULOSIN HCL 0.4 MG CAP.SR.24H PO SCH (21:24)
[2017-10-07] MEDS: DILTIAZEM HCL 60 MG TABLET PO SCH ×3 (02:59→19:18)
[2017-10-07] MEDS: OXYCODONE HCL IR 5 MG TABLET PO PRN ×5 (03:00→19:47)
[2017-10-07] MEDS: GABAPENTIN 300 MG CAPSULE PO SCH ×3 (04:51→21:56)
[2017-10-07 05:58] LABS: HEMATOCRIT 26.8 % (37.9-51.0); HEMOGLOBIN 8.7 g/dL (13.5-17.0); MEAN CORPUSCULAR HGB CONC 32.5 g/dL (32.0-36.0); MEAN CORPUSCULAR VOLUME 80 fl (80-97); PLATELET COUNT 931 10^3/uL (150-450); RED BLOOD COUNT 3.34 10^6/uL (4.35-5.55); RED CELL DISTRIBUTION WIDTH 19.3 % (11.5-14.0); WHITE BLOOD COUNT 22.3 10^3/uL (4.0-10.5)
[2017-10-07 06:02] LABS: ANION GAP 7 (5-19); BLOOD UREA NITROGEN 11 mg/dL (7-20); CALCIUM 10.3 mg/dL (8.4-10.2); CARBON DIOXIDE 36 mmol/L (22-30); CHLORIDE 95 mmol/L (98-107); GLUCOSE 127 mg/dL (75-110); POTASSIUM 4.2 mmol/L (3.6-5.0); SODIUM 137.6 mmol/L (137-145)
[2017-10-07 06:34] LABS: ABSOLUTE LYMPHOCYTES# (MANUAL) 7.8 10^3/uL (0.5-4.7); ABSOLUTE MONOCYTES # (MANUAL) 2.7 10^3/uL (0.1-1.4); ABSOLUTE NEUTROPHILS# (MANUAL) 10.9 10^3/uL (1.7-8.2); BASOPHILS % (MANUAL) 0 % (0-2); EOSINOPHILS % (MANUAL) 4 % (0-6); LYMPHOCYTES % (MANUAL) 35 % (13-45); MONOCYTES % (MANUAL) 12 % (3-13); SEGMENTED NEUTROPHILS % (MAN) 49 % (42-78); TOTAL CELLS COUNTED 100
[2017-10-07 06:37] LABS: ANISOCYTOSIS 2+; HYPOCHROMASIA SLIGHT; PLATELET CLUMPS PRESENT; PLATELET COMMENT INCREASED; POIKILOCYTOSIS SLIGHT; POLYCHROMASIA SLIGHT; TOXIC GRANULATION 1+; TOXIC VACUOLATION PRESENT
[2017-10-07] MEDS: HYDROMORPHONE HCL INJ/PF 2 MG/ML AMPULE IV PRN ×2 (08:07→16:45)
[2017-10-07] MEDS: FINASTERIDE 5 MG TABLET PO SCH (09:54)
[2017-10-07] MEDS: FAMOTIDINE 20 MG TABLET PO SCH ×2 (09:54→21:57)
[2017-10-07] MEDS: MORPHINE SULFATE SR 100 MG TABLET PO SCH ×2 (09:55→21:57)
[2017-10-07] MEDS: DULOXETINE HCL 30 MG CAPSULE.DR PO SCH ×2 (09:56→21:56)
[2017-10-07] MEDS: ENOXAPARIN SODIUM INJ 40 MG/0.4 ML DISP.SYRIN SUBCUT SCH (09:57)
[2017-10-07] MEDS: ONDANSETRON 4 MG TAB.RAPDIS PO PRN (09:57)
[2017-10-07] MEDS: MULTIVITAMINS W-IRON TABLET, CHEWABLE PO SCH (10:01)
--- NOTE | 2017-10-07 16:28 | PDOC PROGRESS REPORT ---
Subjective Progress Note for:: 10/07/17 Subjective:: Complains of pain "all over' still but slightly improved today. Has chronic pain and on long-acting morphine and oxycodone as needed. Now back on his Cymbalta and Neurontin. No fever or chills, no chest pain or shortness of breath or palpitations. Reason For Visit: DKA, SEPSIS Physical Exam Vital Signs: Temp Pulse Resp BP Pulse Ox 98.4 F 107 H 18 116/70 98 10/07/17 11:19 10/07/17 11:19 10/07/17 11:19 10/07/17 11:19 10/07/17 11:19 Intake & Output 10/06/17 10/07/17 10/08/17 06:59 06:59 06:59 Intake Total 1254 1632 300 Output Total 1605 3000 700 Balance -351 -2901 -400 Weight 56.1 kg 57.3 kg GEN: NAD, well-developed, cachectic male CV: RRR, NL S1S2 LUNGS: CTA bilaterally ABDOMEN Soft, NT, +BS EXTERMITIES: No e/c/c NEURO: Alert, oriented SKIN: Wounds on chronic and sacral area, deep. Wound VAC in the sacral wound. Both groin and sacral wound looks clean with minimal surrounding erythema. Results Laboratory Results: 10/07/17 04:45 10/07/17 04:45 10/07/17 10/07/17 04:45 04:45 WBC 22.3 H RBC 3.34 L Hgb 8.7 L Hct 26.8 L MCV 80 MCH 26.0 L MCHC 32.5 RDW 19.3 H Plt Count 931 H Seg Neutrophils % Not Reportable Lymphocytes % Not Reportable Monocytes % Not Reportable Eosinophils % Not Reportable Basophils % Not Reportable Absolute Neutrophils Not Reportable Absolute Lymphocytes Not Reportable Absolute Monocytes Not Reportable Absolute Eosinophils Not Reportable Absolute Basophils Not Reportable Sodium 137.6 Potassium 4.2 Chloride 95 L Carbon Dioxide 36 H Anion Gap 7 BUN 11 Creatinine 0.52 Est GFR ( Amer) > 60 Est GFR (Non-Af Amer) > 60 Glucose 127 H Calcium 10.3 H 08/24/17 08/24/17 08/25/17 18:00 22:00 05:15 Creatine Kinase 140 117 82 CK-MB (CK-2) Troponin I NT-Pro-B Natriuret Pep 09/02/17 09/02/17 09/03/17 17:45 17:45 05:35 Creatine Kinase 50 L CK-MB (CK-2) 0.40 Troponin I 0.027 NT-Pro-B Natriuret Pep 4690 H Impressions: Thoracic Spine CT 08/26/17 08:00 IMPRESSION: No acute findings in the thoracic spine. Abdomen/Pelvis CT 08/27/17 00:00 IMPRESSION: 1. Extensive basilar pulmonary changes suggesting pneumonia. 2. No evidence of intra- abdominal or intrapelvic abscess or drainable collection. Postoperative changes as above without evidence of mechanical bowel obstruction. 3. Marked irregular soft tissue loss in the proximal left posterior and medial thigh, incompletely assessed. No suggestion of regional drainable collection as imaged. Chest X-Ray 09/13/17 00:00 IMPRESSION: NO ACUTE RADIOGRAPHIC FINDING IN THE CHEST. Assessment & Plan - Diagnosis (1) Abscess or cellulitis of perineum Is this a current diagnosis for this admission?: Yes Plan: Continue wound care. Patient with continued leukocytosis, but slightly improved stable today. This could be reactive. Wound was clean and antibiotics have been stopped by ID recommendation. We will continue to monitor. Consider restarting antibiotics if spike fevers or white blood cells continue to worsen. (2) Anemia Qualifiers: Anemia type: due to chronic kidney disease Chronic kidney disease stage: unspecified stage Qualified Code(s): N18.9 - Chronic kidney disease, unspecified; D63.1 - Anemia in chronic kidney disease; D63.1 - Anemia in chronic kidney disease Is this a current diagnosis for this admission?: Yes Plan: Continue to monitor. (3) Chronic pain Qualifiers: Chronic pain type: chronic pain syndrome Qualified Code(s): G89.4 - Chronic pain syndrome Is this a current diagnosis for this admission?: Yes Plan: Continue morphine sulfate, oxycodone, Cymbalta and Neurontin per orders. Also receiving Dilaudid with wound clinic. (4) Decubitus ulcer Qualifiers: Pressure ulcer location: sacral region Pressure ulcer stage: stage 3 Qualified Code(s): L89.153 - Pressure ulcer of sacral region, stage 3 Is this a current diagnosis for this admission?: Yes Plan: Management as above. (5) Diabetes mellitus Qualifiers: Diabetes mellitus type: type 1 Diabetes mellitus complication status: with unspecified complications Qualified Code(s): E10.8 - Type 1 diabetes mellitus with unspecified complications Is this a current diagnosis for this admission?: Yes (6) Groin abscess Is this a current diagnosis for this admission?: Yes Plan: As in abscess and cellulitis of perineum (7) Hidradenitis suppurativa of anus Is this a current diagnosis for this admission?: Yes (8) Severe protein-calorie malnutrition Is this a current diagnosis for this admission?: Yes (9) Crohns disease Qualifiers: Gastrointestinal tract location: unspecified location Is this a current diagnosis for this admission?: Yes
[2017-10-07] MEDS ORDERED: HYDROMORPHONE HCL INJ/PF 2 MG/ML AMPULE IV PRN (19:14)
[2017-10-07] MEDS: QUETIAPINE FUMARATE 25 MG TABLET PO SCH (21:57)
[2017-10-07] MEDS: TAMSULOSIN HCL 0.4 MG CAP.SR.24H PO SCH (21:57)
[2017-10-07] MEDS: INSULIN LISPRO 100 UNIT/ML 3 ML VIAL SUBCUT PRN (21:57)
[2017-10-08] MEDS: OXYCODONE HCL IR 5 MG TABLET PO PRN ×4 (00:46→18:45)
[2017-10-08] MEDS: DILTIAZEM HCL 60 MG TABLET PO SCH ×3 (03:25→18:45)
[2017-10-08] MEDS: GABAPENTIN 300 MG CAPSULE PO SCH ×3 (06:51→23:24)
[2017-10-08 07:30] LABS: HEMATOCRIT 27.1 % (37.9-51.0); HEMOGLOBIN 8.7 g/dL (13.5-17.0); MEAN CORPUSCULAR HEMOGLOBIN 25.8 pg (27.0-33.4); MEAN CORPUSCULAR HGB CONC 32.3 g/dL (32.0-36.0); MEAN CORPUSCULAR VOLUME 80 fl (80-97); PLATELET COUNT 918 10^3/uL (150-450); RED BLOOD COUNT 3.39 10^6/uL (4.35-5.55); RED CELL DISTRIBUTION WIDTH 19.5 % (11.5-14.0); WHITE BLOOD COUNT 21.8 10^3/uL (4.0-10.5)
[2017-10-08 08:09] LABS: ABSOLUTE LYMPHOCYTES# (MANUAL) 6.1 10^3/uL (0.5-4.7); ABSOLUTE MONOCYTES # (MANUAL) 1.1 10^3/uL (0.1-1.4); ABSOLUTE NEUTROPHILS# (MANUAL) 13.1 10^3/uL (1.7-8.2); BASOPHILS % (MANUAL) 0 % (0-2); EOSINOPHILS % (MANUAL) 7 % (0-6); LYMPHOCYTES % (MANUAL) 28 % (13-45); MONOCYTES % (MANUAL) 5 % (3-13); SEGMENTED NEUTROPHILS % (MAN) 60 % (42-78); TOTAL CELLS COUNTED 100
[2017-10-08 08:10] LABS: ANISOCYTOSIS 2+; HYPOCHROMASIA 1+; OVALOCYTES SLIGHT; POIKILOCYTOSIS SLIGHT; TOXIC GRANULATION SLIGHT
[2017-10-08 08:11] LABS: PLATELET CLUMPS PRESENT; PLATELET COMMENT INCREASED; PLATELET LARGE PRESENT
[2017-10-08] MEDS: MULTIVITAMINS W-IRON TABLET, CHEWABLE PO SCH (10:51)
[2017-10-08] MEDS: FINASTERIDE 5 MG TABLET PO SCH (10:51)
[2017-10-08] MEDS: MORPHINE SULFATE SR 100 MG TABLET PO SCH ×2 (10:51→23:25)
[2017-10-08] MEDS: FAMOTIDINE 20 MG TABLET PO SCH ×2 (10:52→23:24)
[2017-10-08] MEDS: ENOXAPARIN SODIUM INJ 40 MG/0.4 ML DISP.SYRIN SUBCUT SCH (10:52)
[2017-10-08] MEDS: DULOXETINE HCL 30 MG CAPSULE.DR PO SCH ×2 (10:52→23:24)
--- NOTE | 2017-10-08 12:59 | PDOC PROGRESS REPORT ---
Subjective Progress Note for:: 10/08/17 Subjective:: The patient is having a difficult time today. He states he has some burning pain in both of his feet and his heels are hurting. He denies fever chills. No chest pain, shortness of breath or cough. States he has had some crampy abdominal pain. No urinary complaints. Reason For Visit: DKA, SEPSIS Physical Exam Vital Signs: Temp Pulse Resp BP Pulse Ox 97.4 F 107 H 16 118/71 98 10/08/17 12:00 10/08/17 12:00 10/08/17 12:00 10/08/17 12:00 10/08/17 12:00 Intake & Output 10/07/17 10/08/17 10/09/17 06:59 06:59 06:59 Intake Total 1632 1637 400 Output Total 3000 2450 400 Balance -1368 -813 0 Weight 57.3 kg 59.2 kg General appearance: PRESENT: other - Ill appearing gentleman who looks as if he does not feel well but is in no acute distress Head exam: PRESENT: atraumatic, other Eye exam: PRESENT: conjunctiva pink, EOMI, PERRLA. ABSENT: scleral icterus Mouth exam: PRESENT: moist, tongue midline Respiratory exam: PRESENT: clear to auscultation [place]. ABSENT: rales, rhonchi, wheezes Cardiovascular exam: PRESENT: RRR. ABSENT: diastolic murmur, rubs, systolic murmur GI/Abdominal exam: PRESENT: normal bowel sounds, soft. ABSENT: distended, guarding, mass, organolmegaly, rebound, tenderness Rectal exam: PRESENT: deferred Extremities exam: PRESENT: full ROM. ABSENT: calf tenderness, clubbing, pedal edema Neurological exam: PRESENT: alert, awake, oriented to person, oriented to place , oriented to time, oriented to situation, CN II-XII grossly intact. ABSENT: motor sensory deficit Psychiatric exam: PRESENT: appropriate affect, normal mood. ABSENT: homicidal ideation, suicidal ideation Skin exam: PRESENT: other - The patient has multiple wounds on his heels. He has a wound VAC in place to his sacrum. Results Laboratory Results: 10/08/17 06:55 10/07/17 04:45 10/08/17 06:55 WBC 21.8 H RBC 3.39 L Hgb 8.7 L Hct 27.1 L MCV 80 MCH 25.8 L MCHC 32.3 RDW 19.5 H Plt Count 918 H Seg Neutrophils % Not Reportable Lymphocytes % Not Reportable Monocytes % Not Reportable Eosinophils % Not Reportable Basophils % Not Reportable Absolute Neutrophils Not Reportable Absolute Lymphocytes Not Reportable Absolute Monocytes Not Reportable Absolute Eosinophils Not Reportable Absolute Basophils Not Reportable 08/24/17 08/24/17 08/25/17 18:00 22:00 05:15 Creatine Kinase 140 117 82 CK-MB (CK-2) Troponin I NT-Pro-B Natriuret Pep 09/02/17 09/02/17 09/03/17 17:45 17:45 05:35 Creatine Kinase 50 L CK-MB (CK-2) 0.40 Troponin I 0.027 NT-Pro-B Natriuret Pep 4690 H Impressions: Thoracic Spine CT 08/26/17 08:00 IMPRESSION: No acute findings in the thoracic spine. Abdomen/Pelvis CT 08/27/17 00:00 IMPRESSION: 1. Extensive basilar pulmonary changes suggesting pneumonia. 2. No evidence of intra- abdominal or intrapelvic abscess or drainable collection. Postoperative changes as above without evidence of mechanical bowel obstruction. 3. Marked irregular soft tissue loss in the proximal left posterior and medial thigh, incompletely assessed. No suggestion of regional drainable collection as imaged. Chest X-Ray 09/13/17 00:00 IMPRESSION: NO ACUTE RADIOGRAPHIC FINDING IN THE CHEST. Assessment & Plan - Diagnosis (1) Septic shock Is this a current diagnosis for this admission?: Yes Plan: Resolved. Secondary to abscess/cellulitis of the perineum as well as pneumonia. (2) Acute respiratory failure with hypoxia Is this a current diagnosis for this admission?: Yes Plan: Resolved. Secondary to pneumonia and septic shock. (3) Abscess or cellulitis of perineum Is this a current diagnosis for this admission?: Yes Plan: At this point at the advice of infectious disease he is no longer receiving antibiotic therapy. He has persistent leukocytosis but no fever. If he spikes a fever he will need to be started back on antibiotics. (4) Pneumonia Qualifiers: Laterality: bilateral Lung location: unspecified part of lung Is this a current diagnosis for this admission?: Yes Plan: Concerns for gram negatives and MRSA. Resolved (5) Diabetic keto-acidosis Qualifiers: Diabetes mellitus type: type 1 Diabetes mellitus complication detail: with coma Qualified Code(s): E10.11 - Type 1 diabetes mellitus with ketoacidosis with coma Is this a current diagnosis for this admission?: Yes Plan: Resolved (6) Hypoxic brain injury Is this a current diagnosis for this admission?: Yes Plan: Improved (7) Hypokalemia Is this a current diagnosis for this admission?: Yes Plan: Resolved (8) Hypomagnesemia Is this a current diagnosis for this admission?: Yes Plan: Resolved (9) Hypercalcemia Is this a current diagnosis for this admission?: Yes Plan: He will have a chemistry panel tomorrow. (10) Crohns disease Qualifiers: Gastrointestinal tract location: unspecified location Is this a current diagnosis for this admission?: Yes Plan: Stable (11) Diabetes mellitus Qualifiers: Diabetes mellitus type: type 1 Diabetes mellitus complication status: with unspecified complications Qualified Code(s): E10.8 - Type 1 diabetes mellitus with unspecified complications Is this a current diagnosis for this admission?: Yes Plan: Stable on current regimen (12) Opiate abuse, continuous Is this a current diagnosis for this admission?: Yes Plan: Continue home regimen. He also has IV Dilaudid available as needed (13) Chronic pain Qualifiers: Chronic pain type: chronic pain syndrome Qualified Code(s): G89.4 - Chronic pain syndrome Is this a current diagnosis for this admission?: Yes Plan: Chronic pain with continuous narcotic use. As above (14) Diabetic neuropathy Qualifiers: Diabetes mellitus type: type 1 Diabetes mellitus complication detail: diabetic polyneuropathy Qualified Code(s): E10.42 - Type 1 diabetes mellitus with diabetic polyneuropathy Is this a current diagnosis for this admission?: Yes Plan: He does complain of some burning pain in his lower extremities today. He is on high-dose gabapentin already. We will see how he does over the next day or 2. (15) Hematuria Qualifiers: Hematuria type: asymptomatic microscopic Qualified Code(s): R31.21 - Asymptomatic microscopic hematuria Is this a current diagnosis for this admission?: Yes Plan: Resolved (16) Hypernatremia Is this a current diagnosis for this admission?: Yes Plan: Resolved (17) Sacral decubitus ulcer, stage III Is this a current diagnosis for this admission?: Yes Plan: He has a wound VAC in place (18) Severe protein-calorie malnutrition Is this a current diagnosis for this admission?: Yes Plan: Continue to encourage good p.o. intake and supplements (19) Hidradenitis Is this a current diagnosis for this admission?: Yes Plan: Stable (20) Leukocytosis Qualifiers: Leukocytosis type: leukemoid reaction Qualified Code(s): D72.823 - Leukemoid reaction Is this a current diagnosis for this admission?: Yes Plan: Likely reactive. If he develops a fever he may need to go back on antibiotic therapy. - Time Time Spent with patient: 25-34 minutes - Inpatient Certification Medical Necessity: Other - Inpatient hospitalization remains necessary. We are going to monitor the patient for the next couple of days to make sure that he does not develop a fever. Ultimately he is going to need to transition to an LTAC. The discharge planners are working on it.
[2017-10-08] MEDS: QUETIAPINE FUMARATE 25 MG TABLET PO SCH (23:24)
[2017-10-08] MEDS: TAMSULOSIN HCL 0.4 MG CAP.SR.24H PO SCH (23:25)
[2017-10-08] MEDS: ACETAMINOPHEN 325 MG TABLET PO PRN (23:31)
[2017-10-09] MEDS: OXYCODONE HCL IR 5 MG TABLET PO PRN ×4 (00:07→14:23)
[2017-10-09] MEDS ORDERED: FENTANYL CITRATE INJ/PF 100 MCG/2 ML AMPUL IV STA (01:09)
[2017-10-09] MEDS: DILTIAZEM HCL 60 MG TABLET PO SCH ×3 (02:41→19:44)
[2017-10-09] MEDS: GABAPENTIN 300 MG CAPSULE PO SCH ×3 (05:42→21:17)
[2017-10-09 05:46] LABS: ABSOLUTE BASOPHILS # (AUTO) 0.2 10^3/uL (0.0-0.2); ABSOLUTE EOSINOPHILS # (AUTO) 0.7 10^3/uL (0.0-0.6); ABSOLUTE LYMPHOCYTES (AUTO) 4.6 10^3/uL (0.5-4.7); ABSOLUTE MONOCYTES (AUTO) 2.3 10^3/uL (0.1-1.4); ABSOLUTE NEUT (AUTO) 11.1 10^3/uL (1.7-8.2); BASOPHILS % (AUTO) 1.2 % (0-2); EOSINOPHILS % (AUTO) 3.9 % (0-6); HEMATOCRIT 29.6 % (37.9-51.0); HEMOGLOBIN 9.6 g/dL (13.5-17.0); LYMPHOCYTES % (AUTO) 24.2 % (13-45); MEAN CORPUSCULAR HEMOGLOBIN 25.8 pg (27.0-33.4); MEAN CORPUSCULAR HGB CONC 32.4 g/dL (32.0-36.0); MEAN CORPUSCULAR VOLUME 80 fl (80-97); MONOCYTES % (AUTO) 12.2 % (3-13); PLATELET COUNT 899 10^3/uL (150-450); RED BLOOD COUNT 3.72 10^6/uL (4.35-5.55); SEGMENTED NEUTROPHILS % (AUTO) 58.5 % (42-78); TOTAL CELLS COUNTED % (AUTO) 100 %
[2017-10-09 06:11] LABS: ANION GAP 6 (5-19); BLOOD UREA NITROGEN 13 mg/dL (7-20); CALCIUM 11.1 mg/dL (8.4-10.2); CARBON DIOXIDE 34 mmol/L (22-30); CHLORIDE 97 mmol/L (98-107); GLUCOSE 118 mg/dL (75-110); PHOSPHORUS 5.4 mg/dL (2.5-4.5); POTASSIUM 4.8 mmol/L (3.6-5.0); SODIUM 136.9 mmol/L (137-145)
[2017-10-09] MEDS ORDERED: VANCOMYCIN HCL 0 MG in DEXTROSE 5%-WATER 250 ML IV NR (06:45)
[2017-10-09] MEDS ORDERED: PIPERACILLIN SODIUM/TAZOBACTAM 3.375 GM in NORMAL SALINE 100 ML IV ONE (07:00)
[2017-10-09] MEDS ORDERED: VANCOMYCIN HCL INJ 1000 MG VIAL IV PRN (07:02)
[2017-10-09] MEDS ORDERED: PIPERACILLIN/TAZOBACTAM 3.375 GM VIAL IV PRN (07:02)
[2017-10-09] MEDS ORDERED: VANCOMYCIN HCL 1,500 MG in DEXTROSE 5%-WATER 250 ML IV ONE (07:15)
[2017-10-09] MEDS: ACETAMINOPHEN 325 MG TABLET PO PRN (08:51)
[2017-10-09] MEDS: MORPHINE SULFATE SR 100 MG TABLET PO SCH ×2 (11:09→21:16)
[2017-10-09] MEDS: FAMOTIDINE 20 MG TABLET PO SCH ×2 (11:10→21:18)
[2017-10-09] MEDS: DULOXETINE HCL 30 MG CAPSULE.DR PO SCH ×2 (11:10→21:17)
[2017-10-09] MEDS: FINASTERIDE 5 MG TABLET PO SCH (11:10)
[2017-10-09] MEDS: MULTIVITAMINS W-IRON TABLET, CHEWABLE PO SCH (11:14)
[2017-10-09] MEDS: VANCOMYCIN HCL 750 MG in DEXTROSE 5%-WATER 250 ML IV SCH ×2 (11:14→19:45)
[2017-10-09] MEDS: PIPERACILLIN SODIUM/TAZOBACTAM 3.375 GM in NORMAL SALINE 100 ML IV SCH ×3 (11:15→21:38)
[2017-10-09] MEDS ORDERED: PIPERACILLIN SODIUM/TAZOBACTAM 3.375 GM in NORMAL SALINE 100 ML IV SCH (12:00)
--- NOTE | 2017-10-09 14:06 | PDOC PROGRESS REPORT ---
Subjective Progress Note for:: 10/09/17 Subjective:: The patient is an unfortunate 51-year-old -[place] male who presented to the emergency room with sepsis and diabetic ketoacidosis. He has a history of severe perineal hidradenitis. At the time of admission he had a large groin abscess in the left groin, perineum and left posterior upper thigh. On 2017 he was emergently taken to surgery for drainage of this chronic abscess. His respiratory status declined after the procedure and he was transferred to the ICU where he was intubated. On 08/25/2017 the patient was taken back to the operating room to undergo additional debridement. Since admission the patient has developed a sacral decubitus ulcer. He underwent debridement of the sacral ulcer on September 24, 2017. This was done at the bedside by general surgery. He has had persistent, marketed leukocytosis and has been seen by hematology. Ultimately it was felt that his leukocytosis was possibly reactive and hematology signed off. The patient has was initially found to have positive blood cultures in 1 out of 2 bottles that possibly were contaminants. Also he has had multiple wound cultures as well as sputum cultures that were positive for multiple organisms. Infectious disease has been following his case and on the recommendation was to stop all antibiotics in spite of his persistent leukocytosis. The recommendation was to start back on antibiotic therapy if he should develop a fever or other signs of infection. Today when I saw the patient he feels just horrible. He has been spiking high fevers overnight. Nursing staff reports that when they Changed his wound VAC yesterday that there was pus and further tunneling in the wound. He also states that he is developed abdominal pain. He states that he hurts all over. His ostomy appears to be working properly and he states he has had no issues with that. He has a Landry catheter in place Reason For Visit: DKA, SEPSIS Physical Exam Vital Signs: Temp Pulse Resp BP Pulse Ox 97.6 F 108 H 12 118/73 99 10/09/17 11:55 10/09/17 11:55 10/09/17 11:55 10/09/17 11:55 10/09/17 11:55 Intake & Output 10/08/17 10/09/17 10/10/17 06:59 06:59 06:59 Intake Total 1637 1797 Output Total 2450 2500 Balance -813 -703 Weight 59.2 kg 56.1 kg General appearance: PRESENT: disheveled, thin, other - He looks as if he feels quite poorly Head exam: PRESENT: atraumatic, other - Bitemporal wasting Mouth exam: PRESENT: moist, tongue midline Respiratory exam: PRESENT: clear to auscultation daija, other - Poor effort. This was an anterior exam. He is diminished in the lower bases bilaterally. ABSENT: rales, rhonchi, wheezes Cardiovascular exam: PRESENT: +S1, +S2, tachycardia. ABSENT: systolic murmur GI/Abdominal exam: PRESENT: firm, tenderness - He has hypoactive bowel sounds. There is brown soft stool in his ostomy bag Rectal exam: PRESENT: deferred Extremities exam: PRESENT: full ROM. ABSENT: calf tenderness, clubbing, pedal edema Neurological exam: PRESENT: alert, awake, oriented to person, oriented to place , oriented to time, oriented to situation, CN II-XII grossly intact. ABSENT: motor sensory deficit Psychiatric exam: PRESENT: anxious, depressed Skin exam: PRESENT: dry, intact, warm. ABSENT: cyanosis, rash Results Laboratory Results: 10/09/17 04:57 10/09/17 04:57 10/09/17 10/09/17 04:57 04:57 WBC 19.0 H RBC 3.72 L Hgb 9.6 L Hct 29.6 L MCV 80 MCH 25.8 L MCHC 32.4 RDW 19.0 H Plt Count 899 H Seg Neutrophils % 58.5 Lymphocytes % 24.2 Monocytes % 12.2 Eosinophils % 3.9 Basophils % 1.2 Absolute Neutrophils 11.1 H Absolute Lymphocytes 4.6 Absolute Monocytes 2.3 H Absolute Eosinophils 0.7 H Absolute Basophils 0.2 Sodium 136.9 L Potassium 4.8 Chloride 97 L Carbon Dioxide 34 H Anion Gap 6 BUN 13 Creatinine 0.51 L Est GFR ( Amer) > 60 Est GFR (Non-Af Amer) > 60 Glucose 118 H Calcium 11.1 H Phosphorus 5.4 H Magnesium 1.6 08/24/17 08/24/17 08/25/17 18:00 22:00 05:15 Creatine Kinase 140 117 82 CK-MB (CK-2) Troponin I NT-Pro-B Natriuret Pep 09/02/17 09/02/17 09/03/17 17:45 17:45 05:35 Creatine Kinase 50 L CK-MB (CK-2) 0.40 Troponin I 0.027 NT-Pro-B Natriuret Pep 4690 H Impressions: Thoracic Spine CT 08/26/17 08:00 IMPRESSION: No acute findings in the thoracic spine. Abdomen/Pelvis CT 08/27/17 00:00 IMPRESSION: 1. Extensive basilar pulmonary changes suggesting pneumonia. 2. No evidence of intra- abdominal or intrapelvic abscess or drainable collection. Postoperative changes as above without evidence of mechanical bowel obstruction. 3. Marked irregular soft tissue loss in the proximal left posterior and medial thigh, incompletely assessed. No suggestion of regional drainable collection as imaged. Chest X-Ray 09/13/17 00:00 IMPRESSION: NO ACUTE RADIOGRAPHIC FINDING IN THE CHEST. Assessment & Plan - Diagnosis (1) Septic shock Is this a current diagnosis for this admission?: Yes Plan: Resolved. Secondary to abscess/cellulitis of the perineum as well as pneumonia. However the patient does have evidence of possible early sepsis. He has persistent leukocytosis, tachycardia, relative hypotension and multiple sources for possible infection. We will have to watch him quite closely. Antibiotic therapy as well as IV fluids have been initiated. Therapy will be outlined below. At this point the most likely source is his sacral decubitus ulcer. He also has multiple other wounds. He is having worsening abdominal pain with a history of Crohn's disease which could be problematic as well. Blood cultures and urine cultures have been ordered. I am going to repeat a chest x-ray. Also will obtain a CT scan of the abdomen today as well. (2) Acute respiratory failure with hypoxia Is this a current diagnosis for this admission?: Yes Plan: Requiring mechanical ventilation in the ICU. Resolved. Secondary to pneumonia and septic shock. (3) Abscess or cellulitis of perineum Is this a current diagnosis for this admission?: Yes Plan: I have asked general surgery to come back and look at the patient's multiple wounds. He has spiked a fever overnight. I am going to place him back on broad -spectrum IV antibiotics to include vancomycin and Zosyn. Will obtain blood cultures, one from his central line and the other from a peripheral site. I will get a UA and urine culture. Also will obtain a chest x-ray. (4) Sacral decubitus ulcer, stage III Is this a current diagnosis for this admission?: Yes Plan: He has a wound VAC in place. According to the nursing staff yesterday there was further tunneling when they changed it. Also there was pus noted. He has been started back on broad-spectrum IV antibiotics as above. I have asked general surgery to come back and see the patient and we certainly appreciate their assistance (5) Pneumonia Qualifiers: Laterality: bilateral Lung location: unspecified part of lung Is this a current diagnosis for this admission?: Yes Plan: The patient likely had a MRSA pneumonia based on his sputum cultures. Resolved. (6) Diabetic keto-acidosis Qualifiers: Diabetes mellitus type: type 1 Diabetes mellitus complication detail: with coma Qualified Code(s): E10.11 - Type 1 diabetes mellitus with ketoacidosis with coma Is this a current diagnosis for this admission?: Yes Plan: Resolved (7) Hypoxic brain injury Is this a current diagnosis for this admission?: Yes Plan: Improved (8) Hypokalemia Is this a current diagnosis for this admission?: Yes Plan: Resolved (9) Hypomagnesemia Is this a current diagnosis for this admission?: Yes Plan: Resolved (10) Hypercalcemia Is this a current diagnosis for this admission?: Yes Plan: His level has worsened. This may be due to dehydration. The patient is running a fever today. I am going to place him back on IV fluids today. He will have a chemistry panel tomorrow. (11) Crohns disease Qualifiers: Gastrointestinal tract location: unspecified location Is this a current diagnosis for this admission?: Yes Plan: The patient complains of increased abdominal pain today.His abdomen is significantly tender. I am going to get a CT scan of his abdomen for further evaluation. (12) Diabetes mellitus Qualifiers: Diabetes mellitus type: type 1 Diabetes mellitus complication status: with unspecified complications Qualified Code(s): E10.8 - Type 1 diabetes mellitus with unspecified complications Is this a current diagnosis for this admission?: Yes Plan: Stable on current regimen (13) Chronic prescription opiate use Is this a current diagnosis for this admission?: Yes Plan: He will continue his current regimen here in the hospital. He has IV Dilaudid available for acute pain. (14) Chronic pain Qualifiers: Chronic pain type: chronic pain syndrome Qualified Code(s): G89.4 - Chronic pain syndrome Is this a current diagnosis for this admission?: Yes Plan: Chronic pain with continuous narcotic use. As above (15) Diabetic neuropathy Qualifiers: Diabetes mellitus type: type 1 Diabetes mellitus complication detail: diabetic polyneuropathy Qualified Code(s): E10.42 - Type 1 diabetes mellitus with diabetic polyneuropathy Is this a current diagnosis for this admission?: Yes Plan: He does complain of some burning pain in his lower extremities today. He is on high-dose gabapentin already. We will see how he does over the next day or 2. (16) Hematuria Qualifiers: Hematuria type: asymptomatic microscopic Qualified Code(s): R31.21 - Asymptomatic microscopic hematuria Is this a current diagnosis for this admission?: Yes Plan: Resolved. Likely due to traumatic Landry catheter insertion. (17) Hypernatremia Is this a current diagnosis for this admission?: Yes Plan: Resolved (18) Severe protein-calorie malnutrition Is this a current diagnosis for this admission?: Yes Plan: Continue to encourage good p.o. intake and supplements. (19) Hidradenitis Is this a current diagnosis for this admission?: Yes Plan: General surgery is coming back to evaluate. (20) Leukocytosis Qualifiers: Leukocytosis type: leukemoid reaction Qualified Code(s): D72.823 - Leukemoid reaction Is this a current diagnosis for this admission?: Yes Plan: For the past week or so this was felt to be reactive. However the patient has now developed high fevers, tachycardia and his blood pressure is much lower than it has been. I am concerned for developing infection and early sepsis. Plan as outlined above. - Time Time Spent with patient: 25-34 minutes - Inpatient Certification Medical Necessity: Other - Inpatient hospitalization remains necessary. Overall this gentleman is not doing well. Discharge planning is trying to make arrangements for him to go to an LTAC. At this point seems like he is developing worsening infection requiring parenteral antibiotics. Ultimately I expect him to be in the hospital for quite some time.
[2017-10-09] MEDS: NORMAL SALINE 1000 ML 1,000 ML IV PRN (14:26)
[2017-10-09] MEDS: FENTANYL CITRATE INJ/PF 100 MCG/2 ML AMPUL IV PRN (14:58)
--- NOTE | 2017-10-09 16:08 | RADIOLOGY REPORT (SQ) ---
EXAM DESCRIPTION: CT ABD/PELVIS WITH IV ONLY COMPLETED DATE/TIME: 10/09/2017 3:52 pm REASON FOR STUDY: abd pain, fever, hx of crohns COMPARISON: 08/27/2017. TECHNIQUE: CT scan of the abdomen and pelvis performed using helical scanning technique with dynamic intravenous contrast injection. No oral contrast. Images reviewed with lung, soft tissue, and bone windows. Reconstructed coronal and sagittal MPR images reviewed. Delayed images for evaluation of the urinary system also acquired. All images stored on PACS. All CT scanners at this facility use dose modulation, iterative reconstruction, and/or weight based d osing when appropriate to reduce radiation dose to as low as reasonably achievable (ALARA). [facility]: Dose Right [facility]: CareDose [facility]: Dose Right [facility]: Teradose 4D [facility]: Zettaset CONTRAST TYPE AND DOSE: contrast/concentration: Isovue 370.00 mg/ml; Total Contrast Delivered: 61.0 ml; Total Saline Delivered: 65.0 ml RENAL FUNCTION: BUN 13 creatinine 0.51. RADIATION DOSE: CT Rad equipment meets quality standard of care and radiation dose reduction techniq ues were employed. CTDIvol: 8.3 - 9.9 mGy. DLP: 985 mGy-cm.. LIMITATIONS: None. FINDINGS: LOWER CHEST: No significant findings. No nodules or infiltrates. LIVER: Normal size. No masses. No dilated ducts. SPLEEN: Surgically absent. PANCREAS: No masses. No significant calcifications. No adjacent inflammation or peripancreatic fluid collections. Pancreatic duct not dilated. GALLBLADDER: No identified stones by CT criteria. No inflammatory changes to suggest cholecystitis. ADRENAL GLANDS: No significant masses or asymmetry. RIGHT KIDNEY AND URETER: No solid masses. No significant calcifications. No hydronephrosis or hyd roureter. LEFT KIDNEY AND URETER: Small cortical cyst. No solid masses. No significant calcifications. No hydronephrosis or hydroureter. AORTA AND VESSELS: No aneurysm. No dissection. Renal arteries, SMA, celiac without stenosis. RETROPERITONEUM: No retroperitoneal adenopathy, hemorrhage or masses. BOWEL AND PERITONEAL CAVITY: Surgical changes with periumbilical colostomy. No masses or inflammator y changes. No free fluid or peritoneal masses. APPENDIX: Normal. PELVIS: No mass. No free fluid. Catheter in the bladder. ABDOMINAL WALL: No masses. No hernias. BONES: No significant or acute findings. OTHER: Soft tissue defect in the left buttocks, not fully imaged. IMPRESSION: NO SIGNIFICANT OR ACUTE FINDING IN THE ABDOMEN OR PELVIS ON CT SCAN WITH IV CONTRAST. S URGICAL CHANGES WITH PERIUMBILICAL COLOSTOMY AND PRIOR SPLENECTOMY. SMALL CORTICAL CYST IN THE LEFT KIDNEY. SOFT TISSUE DEFECT IN THE LEFT BUTTOCKS, INCOMPLETELY IMAGED. TECHNICAL DOCUMENTATION: JOB ID: [id number] Quality ID # [id number]: Final reports with documentation of one or more dose reduction techniques (e.g., Au tomated exposure control, adjustment of the mA and/or kV according to patient size, use of iterative reconstruction technique) 2010 [employer]- All Rights Reserved Reading location - IP/workstation name: [email or web address]
--- NOTE | 2017-10-09 16:26 | RADIOLOGY REPORT (SQ) ---
EXAM DESCRIPTION: CHEST SINGLE VIEW COMPLETED DATE/TIME: 10/09/2017 4:12 pm REASON FOR STUDY: fever, ?pna COMPARISON: 09/13/2017. EXAM PARAMETERS: NUMBER OF VIEWS: One view. TECHNIQUE: Single frontal radiographic view of the chest acquired. RADIATION DOSE: NA LIMITATIONS: None. FINDINGS: LUNGS AND PLEURA: No acute infiltrates or effusions. MEDIASTINUM AND HILAR STRUCTURES: No masses. Contour normal. HEART AND VASCULAR STRUCTURES: The heart is normal with uncoiling thoracic aorta. Pulmonary vasculat ure normal BONES: No acute findings. HARDWARE: None in the chest. OTHER: Left central venous line with tip overlying SVC. Chest leads in place. IMPRESSION: NO ACUTE RADIOGRAPHIC FINDING IN THE CHEST. TECHNICAL DOCUMENTATION: JOB ID: [id number] SC-69 2010 [employer]- All Rights Reserved Reading location - IP/workstation name: [email or web address]
[2017-10-09] MEDS ORDERED: FENTANYL CITRATE INJ/PF 100 MCG/2 ML AMPUL IV ONE (18:30)
[2017-10-09] MEDS: TAMSULOSIN HCL 0.4 MG CAP.SR.24H PO SCH (21:17)
[2017-10-09] MEDS: QUETIAPINE FUMARATE 25 MG TABLET PO SCH (21:17)
[2017-10-09] MEDS: INSULIN LISPRO 100 UNIT/ML 3 ML VIAL SUBCUT PRN (21:43)
[2017-10-10] MEDS: DILTIAZEM HCL 60 MG TABLET PO SCH ×3 (01:28→18:00)
[2017-10-10] MEDS: VANCOMYCIN HCL 750 MG in DEXTROSE 5%-WATER 250 ML IV SCH ×2 (01:28→10:45)
[2017-10-10] MEDS: PIPERACILLIN SODIUM/TAZOBACTAM 3.375 GM in NORMAL SALINE 100 ML IV SCH ×4 (02:23→21:15)
[2017-10-10] MEDS: FENTANYL CITRATE INJ/PF 100 MCG/2 ML AMPUL IV PRN ×2 (02:23→15:01)
[2017-10-10 05:29] LABS: HEMATOCRIT 25.5 % (37.9-51.0); HEMOGLOBIN 8.3 g/dL (13.5-17.0); MEAN CORPUSCULAR HEMOGLOBIN 26.1 pg (27.0-33.4); MEAN CORPUSCULAR HGB CONC 32.6 g/dL (32.0-36.0); MEAN CORPUSCULAR VOLUME 80 fl (80-97); PLATELET COUNT 894 10^3/uL (150-450); RED BLOOD COUNT 3.19 10^6/uL (4.35-5.55); RED CELL DISTRIBUTION WIDTH 19.3 % (11.5-14.0)
[2017-10-10 05:55] LABS: ANION GAP 5 (5-19); BLOOD UREA NITROGEN 9 mg/dL (7-20); CALCIUM 10.8 mg/dL (8.4-10.2); CARBON DIOXIDE 33 mmol/L (22-30); CHLORIDE 99 mmol/L (98-107); GLUCOSE 108 mg/dL (75-110); POTASSIUM 4.3 mmol/L (3.6-5.0); SODIUM 136.6 mmol/L (137-145)
[2017-10-10 06:12] LABS: ABSOLUTE MONOCYTES # (MANUAL) 1.3 10^3/uL (0.1-1.4); ABSOLUTE NEUTROPHILS# (MANUAL) 14.5 10^3/uL (1.7-8.2); BASOPHILS % (MANUAL) 0 % (0-2); EOSINOPHILS % (MANUAL) 6 % (0-6); LYMPHOCYTES % (MANUAL) 19 % (13-45); MONOCYTES % (MANUAL) 6 % (3-13); SEGMENTED NEUTROPHILS % (MAN) 69 % (42-78); TOTAL CELLS COUNTED 100
[2017-10-10 06:14] LABS: ANISOCYTOSIS 2+; HYPOCHROMASIA SLIGHT; OVALOCYTES SLIGHT; PLATELET COMMENT INCREASED; POIKILOCYTOSIS SLIGHT; POLYCHROMASIA SLIGHT; TARGET CELLS SLIGHT
[2017-10-10] MEDS: GABAPENTIN 300 MG CAPSULE PO SCH ×3 (08:07→21:13)
[2017-10-10] MEDS: DULOXETINE HCL 30 MG CAPSULE.DR PO SCH ×2 (09:57→21:13)
[2017-10-10] MEDS: MORPHINE SULFATE SR 100 MG TABLET PO SCH ×2 (09:57→21:13)
[2017-10-10] MEDS: FINASTERIDE 5 MG TABLET PO SCH (09:57)
[2017-10-10] MEDS: FAMOTIDINE 20 MG TABLET PO SCH ×2 (09:58→21:14)
[2017-10-10] MEDS: ENOXAPARIN SODIUM INJ 40 MG/0.4 ML DISP.SYRIN SUBCUT SCH (09:58)
[2017-10-10] MEDS: OXYCODONE HCL IR 5 MG TABLET PO PRN ×2 (10:44→18:13)
[2017-10-10 10:47] LABS: VANCOMYCIN,TROUGH 10.8 ug/mL (5.0-20.0)
[2017-10-10 12:35] LABS: APPEARANCE,URINE CLEAR; BILIRUBIN,URINE NEGATIVE (NEGATIVE); COLOR,URINE STRAW; GLUCOSE, URINE NEGATIVE (NEGATIVE); KETONES,URINE NEGATIVE (NEGATIVE); LEUKOCYTE ESTERASE,URINE NEGATIVE (NEGATIVE); NITRITE,URINE NEGATIVE (NEGATIVE); PROTEIN,URINE NEGATIVE (NEGATIVE); UROBILINOGEN,URINE NEGATIVE mg/dL (<2.0)
[2017-10-10] MEDS: NORMAL SALINE 1000 ML 1,000 ML IV PRN (13:01)
[2017-10-10] MEDS: INSULIN LISPRO 100 UNIT/ML 3 ML VIAL SUBCUT PRN (13:01)
--- NOTE | 2017-10-10 14:53 | Progress Note ---
Provider Note Provider Note: ID Consult Note Asked to review chart by Pharmacy. Mr Borges has been in the hospital since August. He most recently has had a thigh abscess related to his hidradenitis that required surgical intervention. The culture obtained grew E coli, Enterobacter, Enterococcus, and Prevotella. He was treated for approximately 1 week with Zosyn in addition to debridement. He has had a wound vac. According to nursing staff, there has been pus appreciated at wound vac changes. He spiked a fever to 101.2 F on 10/08/17. Repeat blood cultures on 10/09 show growth of GPCs in both sets, one obtained from the patient's central line and one obtained peripherally. He was restarted on vancomycin and Zosyn. Impression/Recommendations Fever Central line associated bacteremia Skin/soft tissue infection Continue vancomycin and Zosyn for now. Recommend removal of the infected central line. Follow up blood culture results. Also recommend having Surgery re- evaluate the wound if there is continued purulent drainage. If purulent drainage can be sent for culture, this may help target antibiotic therapy. Vasquez Kunz MD pager [phone]
--- NOTE | 2017-10-10 15:28 | PDOC PROGRESS REPORT ---
Subjective Progress Note for:: 10/10/17 Subjective:: Patient is a 50 y/o male with extensive history. 2 days ago began with fever and drainage from wound vac site. He was started on vancomycin and zosyn at that time. ID has been consulted and recommendations are listed in the chart. He states that he does not feel well and has continued to have intermittent fever. ID has made recommendations and his abx have been adjusted accordingly. He was taken to the OR on 08/24/17 for drainage of chronic abscess and then again on 08/25/17 for further debridement. He underwent sacral debridement on . When the fever started, rep[eat blood cultures were drawn, one from his central line and one from his AC. Both sets of blood cultures have grown gram positive cocci. Will see what his cultures are tomorrow, but his central line will need to be discontinued. He may need a SHANNON based on cultures as well. Reason For Visit: DKA, SEPSIS Physical Exam Vital Signs: Temp Pulse Resp BP Pulse Ox 98.8 F 102 H 18 115/73 99 10/10/17 11:43 10/10/17 11:43 10/10/17 11:43 10/10/17 11:43 10/10/17 11:43 Intake & Output 10/09/17 10/10/17 10/11/17 06:59 06:59 06:59 Intake Total 1797 3775 1020 Output Total 2500 4000 1000 Balance -703 -225 20 Weight 56.1 kg 56.8 kg General appearance: PRESENT: no acute distress, well-developed, well-nourished Neck exam: ABSENT: carotid bruit, JVD, lymphadenopathy, thyromegaly Respiratory exam: PRESENT: clear to auscultation daija. ABSENT: rales, rhonchi, wheezes Cardiovascular exam: PRESENT: RRR. ABSENT: diastolic murmur, rubs, systolic murmur Pulses: PRESENT: normal dorsalis pedis pul Vascular exam: PRESENT: normal capillary refill GI/Abdominal exam: PRESENT: firm, hypoactive bowel sounds, other - ostomy in place. ABSENT: ascites, distended, guarding, mass, organolmegaly, rebound, tenderness Extremities exam: PRESENT: full ROM. ABSENT: calf tenderness, clubbing, pedal edema Neurological exam: PRESENT: alert, awake, oriented to person, oriented to place , oriented to time, oriented to situation, CN II-XII grossly intact. ABSENT: motor sensory deficit Results Laboratory Results: 10/10/17 04:46 10/10/17 09:55 10/10/17 10/10/17 10/10/17 04:46 04:46 09:55 WBC 21.0 H RBC 3.19 L Hgb 8.3 L Hct 25.5 L MCV 80 MCH 26.1 L MCHC 32.6 RDW 19.3 H Plt Count 894 H Seg Neutrophils % Not Reportable Lymphocytes % Not Reportable Monocytes % Not Reportable Eosinophils % Not Reportable Basophils % Not Reportable Absolute Neutrophils Not Reportable Absolute Lymphocytes Not Reportable Absolute Monocytes Not Reportable Absolute Eosinophils Not Reportable Absolute Basophils Not Reportable Sodium 136.6 L Potassium 4.3 Chloride 99 Carbon Dioxide 33 H Anion Gap 5 BUN 9 Creatinine 0.54 0.52 Est GFR ( Amer) > 60 > 60 Est GFR (Non-Af Amer) > 60 > 60 Glucose 108 Calcium 10.8 H Magnesium 1.6 Urine Color Urine Appearance Urine pH Ur Specific Stollings Urine Protein Urine Glucose (UA) Urine Ketones Urine Blood Urine Nitrite Ur Leukocyte Esterase Urine WBC (Auto) Urine RBC (Auto) 10/10/17 11:40 WBC RBC Hgb Hct MCV MCH MCHC RDW Plt Count Seg Neutrophils % Lymphocytes % Monocytes % Eosinophils % Basophils % Absolute Neutrophils Absolute Lymphocytes Absolute Monocytes Absolute Eosinophils Absolute Basophils Sodium Potassium Chloride Carbon Dioxide Anion Gap BUN Creatinine Est GFR ( Amer) Est GFR (Non-Af Amer) Glucose Calcium Magnesium Urine Color STRAW Urine Appearance CLEAR Urine pH 6.0 Ur Specific Stollings 1.010 Urine Protein NEGATIVE Urine Glucose (UA) NEGATIVE Urine Ketones NEGATIVE Urine Blood SMALL H Urine Nitrite NEGATIVE Ur Leukocyte Esterase NEGATIVE Urine WBC (Auto) 2 Urine RBC (Auto) 1 08/24/17 08/24/17 08/25/17 18:00 22:00 05:15 Creatine Kinase 140 117 82 CK-MB (CK-2) Troponin I NT-Pro-B Natriuret Pep 09/02/17 09/02/17 09/03/17 17:45 17:45 05:35 Creatine Kinase 50 L CK-MB (CK-2) 0.40 Troponin I 0.027 NT-Pro-B Natriuret Pep 4690 H Impressions: Thoracic Spine CT 08/26/17 08:00 IMPRESSION: No acute findings in the thoracic spine. Chest X-Ray 10/09/17 00:00 IMPRESSION: NO ACUTE RADIOGRAPHIC FINDING IN THE CHEST. Abdomen/Pelvis CT 10/09/17 13:59 IMPRESSION: NO SIGNIFICANT OR ACUTE FINDING IN THE ABDOMEN OR PELVIS ON CT SCAN WITH IV CONTRAST. SURGICAL CHANGES WITH PERIUMBILICAL COLOSTOMY AND PRIOR SPLENECTOMY. SMALL CORTICAL CYST IN THE LEFT KIDNEY. SOFT TISSUE DEFECT IN THE LEFT BUTTOCKS, INCOMPLETELY IMAGED. Assessment & Plan - Diagnosis (1) Diabetes mellitus Qualifiers: Diabetes mellitus type: type 1 Diabetes mellitus complication status: with unspecified complications Qualified Code(s): E10.8 - Type 1 diabetes mellitus with unspecified complications Is this a current diagnosis for this admission?: Yes Plan: continue gabapentin for neuoprathy symptoms, continue current DM regiment as sugars have been stable (2) Diabetic neuropathy Qualifiers: Diabetes mellitus type: type 1 Diabetes mellitus complication detail: diabetic polyneuropathy Qualified Code(s): E10.42 - Type 1 diabetes mellitus with diabetic polyneuropathy Is this a current diagnosis for this admission?: Yes Plan: continue gabapentin (3) Hypokalemia Is this a current diagnosis for this admission?: Yes Plan: resolved, will monitor (4) Hypomagnesemia Is this a current diagnosis for this admission?: Yes Plan: resolved, will monitor (5) Septic shock Is this a current diagnosis for this admission?: Yes Plan: He has improved from septic shock standpoint, now with a new fever and possible source of infection. will need to get surgery services to obtain culture from woundvac site. Continue current antiobiotics and await culture. May need to have central line changed and possible SHANNON with blood cultures positive for gram positive cocci (6) Severe protein-calorie malnutrition Is this a current diagnosis for this admission?: Yes Plan: continue to encourage proper diet (7) Crohns disease Qualifiers: Gastrointestinal tract location: unspecified location Is this a current diagnosis for this admission?: Yes Plan: Monitor closely, CT of the abdomen and pelvis done yesterday was unremarkable - Time Time Spent with patient: 25-34 minutes - Inpatient Certification Based on my medical assessment, after consideration of the patient's comorbidities, presenting symptoms, or acuity I expect that the services needed warrant INPATIENT care.: Yes I certify that my determination is in accordance with my understanding of Medicare's requirements for reasonable and necessary INPATIENT services [42 CFR 412.3e].: Yes
[2017-10-10] MEDS: VANCOMYCIN HCL 1,000 MG in DEXTROSE 5%-WATER 250 ML IV SCH (18:11)
--- NOTE | 2017-10-10 18:53 | PDOC CONSULTATION ---
Consultation Consult Date: 10/10/17 Consult reason:: Has positive blood culture and needs specimen from pressure sores for culture to check if blood culture source is from the pressure sores History of Present Illness Admission Date/PCP: 08/24/17 16:51 DELROY CROUCH DO Patient complains of: some pains from sacral and other pressure sores History of Present Illness: Has a wound vac for sacral decubitus ulcer. Other pressure sites at bilateral groin, perineal area and ledt lower lumbar area. Past Medical History Cardiac Medical History: Reports: Myocardial Infarction - NOVEMBER 2014, Hypertension Denies: Coronary Artery Disease Pulmonary Medical History: Reports: Asthma, Pneumonia Denies: Bronchitis, Chronic Obstructive Pulmonary Disease (COPD) Neurological Medical History: Reports: Seizures Endocrine Medical History: Reports: Diabetes Mellitus Type 2 GI Medical History: Reports: Crohn's Disease Musculoskeltal Medical History: Reports: Arthritis Skin Medical History: Reports: Other - RECURRENT CELLULITIS & ABSCESS FORMATION IN PERINEAL, GENITAL, AND GLUTEAL Psychiatric Medical History: Reports: Depression Hematology: Reports: Anemia Past Surgical History Past Surgical History: Reports: Colostomy Social History Lives with: Alone Smoking Status: Unknown if Ever Smoked Frequency of Alcohol Use: None Hx Recreational Drug Use: No Hx Prescription Drug Abuse: No - Advance Directive Resuscitation Status: Full Code Family History Family History: Other - Crohn's-sister Parental Family History Reviewed: Yes Children Family History Reviewed: No Sibling(s) Family History Reviewed.: No Medication/Allergy Home Medications: Duloxetine HCl [Cymbalta] 60 mg PO Q12 08/24/17 Gabapentin [Neurontin 300 mg Capsule] 600 mg PO Q8 08/24/17 Insulin Aspart [Novolog Flexpen] 25 unit SQ Q12 08/24/17 Metformin HCl [Glucophage] 1,000 mg PO BIDACBS 08/24/17 Morphine Sulfate [Morphine Sulfate ER] 100 mg PO Q12 08/24/17 Naloxone HCl [Narcan] 1 spray NS ASDIR PRN 08/24/17 Ondansetron HCl [Zofran 8 mg Tablet] 8 mg PO Q8HP PRN 08/24/17 Oxycodone HCl [Oxy-Ir 5 mg Tablet] 20 mg PO Q4HP PRN 08/24/17 Prednisone [Deltasone 10 mg Tablet] 10 mg PO Q12 08/24/17 Allergies/Adverse Reactions: atropine sulfate [From Lomotil] Allergy (Verified 02/21/17 13:49) diphenoxylate HCl [From Lomotil] Allergy (Verified 02/21/17 13:49) erythromycin base [Erythromycin Base] Allergy (Verified 02/21/17 13:49) paroxetine HCl [From Paxil] Allergy (Verified 02/21/17 13:49) sulfamethoxazole [From Bactrim] Allergy (Verified 02/21/17 13:49) trimethoprim [From Bactrim] Allergy (Verified 02/21/17 13:49) Review of Systems Review of Systems: some pains along sacral area, groin sites, perineal area Cardiovascular: PRESENT: other - no chest pain Respiratory: PRESENT: other - denies cough Gastrointestinal: PRESENT: other - no N/V Genitourinary: PRESENT: other - has a araiza Musculoskeletal: PRESENT: muscle weakness Integumentary: PRESENT: wounds - pressure sores,sacral area,perineal area,daija groins and le lumbosacral areas Neurological: PRESENT: other - no seizures Physical Exam Vital Signs: Temp Pulse Resp BP Pulse Ox 98.8 F 105 H 18 115/73 99 10/10/17 11:43 10/10/17 14:00 10/10/17 11:43 10/10/17 11:43 10/10/17 11:43 Intake & Output 10/09/17 10/10/17 10/11/17 06:59 06:59 06:59 Intake Total 1797 3775 3095 Output Total 2500 4000 1000 Balance -703 -225 2095 Weight 56.1 kg 56.8 kg General appearance: PRESENT: no acute distress Head exam: PRESENT: atraumatic Eye exam: PRESENT: conjunctiva pink Mouth exam: PRESENT: moist Neck exam: PRESENT: full ROM Respiratory exam: PRESENT: clear to auscultation da[place] Cardiovascular exam: PRESENT: RRR Pulses: PRESENT: normal radial pulses Vascular exam: PRESENT: normal capillary refill GI/Abdominal exam: PRESENT: soft - non tender Rectal exam: PRESENT: deferred, other - sacral decubitus ulcer about 6 cm with somenecrosis of fascia layer.Debrided and specimen sent for C/S. Gentrourinary exam: PRESENT: other - both groins with sores relatively clean. One area in the left side with small amount of exudates. This was swab and specimen obtained for C/S Extremities exam: PRESENT: other - atrophic leg muscles Musculoskeletal exam: PRESENT: other - non ambulatory Neurological exam: PRESENT: alert, oriented to person, oriented to place, oriented to time, oriented to situation Psychiatric exam: PRESENT: appropriate affect Skin exam: PRESENT: other - pressure sores Results Laboratory Results: 10/10/17 04:46 10/10/17 09:55 10/10/17 10/10/17 10/10/17 04:46 04:46 09:55 WBC 21.0 H RBC 3.19 L Hgb 8.3 L Hct 25.5 L MCV 80 MCH 26.1 L MCHC 32.6 RDW 19.3 H Plt Count 894 H Seg Neutrophils % Not Reportable Lymphocytes % Not Reportable Monocytes % Not Reportable Eosinophils % Not Reportable Basophils % Not Reportable Absolute Neutrophils Not Reportable Absolute Lymphocytes Not Reportable Absolute Monocytes Not Reportable Absolute Eosinophils Not Reportable Absolute Basophils Not Reportable Sodium 136.6 L Potassium 4.3 Chloride 99 Carbon Dioxide 33 H Anion Gap 5 BUN 9 Creatinine 0.54 0.52 Est GFR ( Amer) > 60 > 60 Est GFR (Non-Af Amer) > 60 > 60 Glucose 108 Calcium 10.8 H Magnesium 1.6 Urine Color Urine Appearance Urine pH Ur Specific [place] Urine Protein Urine Glucose (UA) Urine Ketones Urine Blood Urine Nitrite Ur Leukocyte Esterase Urine WBC (Auto) Urine RBC (Auto) 10/10/17 11:40 WBC RBC Hgb Hct MCV MCH MCHC RDW Plt Count Seg Neutrophils % Lymphocytes % Monocytes % Eosinophils % Basophils % Absolute Neutrophils Absolute Lymphocytes Absolute Monocytes Absolute Eosinophils Absolute Basophils Sodium Potassium Chloride Carbon Dioxide Anion Gap BUN Creatinine Est GFR ( Amer) Est GFR (Non-Af Amer) Glucose Calcium Magnesium Urine Color STRAW Urine Appearance CLEAR Urine pH 6.0 Ur Specific [place] 1.010 Urine Protein NEGATIVE Urine Glucose (UA) NEGATIVE Urine Ketones NEGATIVE Urine Blood SMALL H Urine Nitrite NEGATIVE Ur Leukocyte Esterase NEGATIVE Urine WBC (Auto) 2 Urine RBC (Auto) 1 08/24/17 08/24/17 08/25/17 18:00 22:00 05:15 Creatine Kinase 140 117 82 CK-MB (CK-2) Troponin I NT-Pro-B Natriuret Pep 09/02/17 09/02/17 09/03/17 17:45 17:45 05:35 Creatine Kinase 50 L CK-MB (CK-2) 0.40 Troponin I 0.027 NT-Pro-B Natriuret Pep 4690 H Impressions: Thoracic Spine CT 08/26/17 08:00 IMPRESSION: No acute findings in the thoracic spine. Chest X-Ray 10/09/17 00:00 IMPRESSION: NO ACUTE RADIOGRAPHIC FINDING IN THE CHEST. Abdomen/Pelvis CT 10/09/17 13:59 IMPRESSION: NO SIGNIFICANT OR ACUTE FINDING IN THE ABDOMEN OR PELVIS ON CT SCAN WITH IV CONTRAST. SURGICAL CHANGES WITH PERIUMBILICAL COLOSTOMY AND PRIOR SPLENECTOMY. SMALL CORTICAL CYST IN THE LEFT KIDNEY. SOFT TISSUE DEFECT IN THE LEFT BUTTOCKS, INCOMPLETELY IMAGED. Assessment & Plan - Diagnosis (1) Positive blood culture Is this a current diagnosis for this admission?: Yes (2) Decubitus ulcer Qualifiers: Pressure ulcer location: sacral region Pressure ulcer stage: stage 3 Qualified Code(s): L89.153 - Pressure ulcer of sacral region, stage 3 Is this a current diagnosis for this admission?: Yes (3) Decubitus ulcer, hip, left, unstageable Is this a current diagnosis for this admission?: Yes (4) Sacral decubitus ulcer, stage III Is this a current diagnosis for this admission?: Yes (5) CHRONIC PERINEAL inflammation Is this a current diagnosis for this admission?: Yes - Time Time Spent: 30 to 50 Minutes - Plan Summary Plan Summary: Partial Debridement of sacral decubitus to fascial layer Culture from left groin Continue IV antibiotics
--- NOTE | 2017-10-10 19:09 | OPERATIVE REPORT E ---
Operative Report NAME: TIA VILLANUEVA : 1965 AGE: 51Y DATE OF SURGERY: 10/10/2017 ROOM: 308 PREOPERATIVE DIAGNOSIS: Sacral decubitus ulcer with some necrotic tissue. POSTOPERATIVE DIAGNOSIS: Sacral decubitus ulcer with some necrotic tissue. OPERATION: Sharp debridement of 6 cm sacral decubitus ulcer down to the fascial level. SURGEON: RAIZA KIMBLE M.D. INDICATION FOR PROCEDURE: This is a 51-year-old male who is bedridden, noted to have positive blood cultures. The patient has multiple ulcers, pressure sores along the sacral, coccygeal, and perineal areas. He has a positive blood culture and we just want to make sure that one of the pressure ulcer sites is the source of the positive blood culture. DESCRIPTION OF PROCEDURE: With the patient facing the right lateral decubitus position, the V.A.C. dressing was removed. There is a small amount of purulent material on the dressing. The ulcer roughly measures about 6 cm in diameter. For the most part, the wound looks relatively clean but the fascial area or the bottom part of the wound has some necrotic fascia. A partial debridement of the necrotic fascia was done and some specimen sent for culture. A new wound V.A.C. will be applied. The patient tolerated the procedure well. DICTATING PHYSICIAN: RAIZA KIMBLE M.D. [id number] PHY#: [id number] ID: [id number] JOB#: [id number] ACCT: [id number] cc:RAIZA KIMBLE M.D. >
[2017-10-10] MEDS: TAMSULOSIN HCL 0.4 MG CAP.SR.24H PO SCH (21:14)
[2017-10-10] MEDS: QUETIAPINE FUMARATE 25 MG TABLET PO SCH (21:15)
[2017-10-11] MEDS: VANCOMYCIN HCL 1,000 MG in DEXTROSE 5%-WATER 250 ML IV SCH ×3 (01:30→18:01)
[2017-10-11] MEDS: DILTIAZEM HCL 60 MG TABLET PO SCH ×2 (01:30→09:23)
[2017-10-11] MEDS: NORMAL SALINE 1000 ML 1,000 ML IV PRN (01:30)
[2017-10-11] MEDS: OXYCODONE HCL IR 5 MG TABLET PO PRN ×3 (05:14→23:52)
[2017-10-11] MEDS: PIPERACILLIN SODIUM/TAZOBACTAM 3.375 GM in NORMAL SALINE 100 ML IV SCH ×3 (05:15→22:36)
[2017-10-11] MEDS: GABAPENTIN 300 MG CAPSULE PO SCH ×3 (05:15→22:28)
[2017-10-11] MEDS: ENOXAPARIN SODIUM INJ 40 MG/0.4 ML DISP.SYRIN SUBCUT SCH (09:22)
[2017-10-11] MEDS: FAMOTIDINE 20 MG TABLET PO SCH (09:22)
[2017-10-11] MEDS: MORPHINE SULFATE SR 100 MG TABLET PO SCH ×2 (09:22→22:29)
[2017-10-11] MEDS: DULOXETINE HCL 30 MG CAPSULE.DR PO SCH ×2 (09:23→22:28)
[2017-10-11] MEDS: FINASTERIDE 5 MG TABLET PO SCH (09:23)
--- NOTE | 2017-10-11 13:47 | PDOC PROGRESS REPORT ---
Subjective Progress Note for:: 10/11/17 Subjective:: Patient admitted with septic shock, denies any new symptoms. He is bed bound though says he was ambulatory till recently. This patient has had a prolonged hospitalization in fact 48 days today veering from1 infection to the other. He has had multiple ulcers on multiple incisions and drainage 10/10 when he had a partial debridement of necrotic fascia done the wound apparently looked relatively clean except for the necrotic area. His white count continues to be elevated at 21,000. It had trended down slightly sometime last week but began to climb again and he did have a positive blood culture yielded gram-positive cocci. The wound cultures from the right groin growing gram-negative rods. Patient remains debilitated with no gross change in his physical status Reason For Visit: DKA, SEPSIS Physical Exam Vital Signs: Temp Pulse Resp BP Pulse Ox 99.7 F 105 H 18 118/74 94 10/11/17 07:40 10/11/17 07:40 10/11/17 07:40 10/11/17 07:40 10/11/17 07:40 Intake & Output 10/10/17 10/11/17 10/12/17 06:59 06:59 06:59 Intake Total 3775 6069 118 Output Total 4000 5151 900 Balance -225 918 -782 Weight 56.8 kg 55.4 kg General appearance: PRESENT: thin Head exam: PRESENT: atraumatic Ear exam: PRESENT: bleeding Neck exam: ABSENT: carotid bruit, JVD, lymphadenopathy, thyromegaly Respiratory exam: PRESENT: clear to auscultation daija. ABSENT: rales, rhonchi, wheezes Cardiovascular exam: PRESENT: RRR. ABSENT: diastolic murmur, rubs, systolic murmur GI/Abdominal exam: PRESENT: normal bowel sounds, soft. ABSENT: distended, guarding, mass, organolmegaly, rebound, tenderness Gentrourinary exam: PRESENT: other - Groin incisions drainage Neurological exam: PRESENT: alert, awake, oriented to situation Results Laboratory Results: 10/10/17 04:46 10/10/17 09:55 08/24/17 08/24/17 08/25/17 18:00 22:00 05:15 Creatine Kinase 140 117 82 CK-MB (CK-2) Troponin I NT-Pro-B Natriuret Pep 09/02/17 09/02/17 09/03/17 17:45 17:45 05:35 Creatine Kinase 50 L CK-MB (CK-2) 0.40 Troponin I 0.027 NT-Pro-B Natriuret Pep 4690 H Impressions: Thoracic Spine CT 08/26/17 08:00 IMPRESSION: No acute findings in the thoracic spine. Chest X-Ray 10/09/17 00:00 IMPRESSION: NO ACUTE RADIOGRAPHIC FINDING IN THE CHEST. Abdomen/Pelvis CT 10/09/17 13:59 IMPRESSION: NO SIGNIFICANT OR ACUTE FINDING IN THE ABDOMEN OR PELVIS ON CT SCAN WITH IV CONTRAST. SURGICAL CHANGES WITH PERIUMBILICAL COLOSTOMY AND PRIOR SPLENECTOMY. SMALL CORTICAL CYST IN THE LEFT KIDNEY. SOFT TISSUE DEFECT IN THE LEFT BUTTOCKS, INCOMPLETELY IMAGED. Assessment & Plan - Diagnosis (1) Abscess or cellulitis of perineum Is this a current diagnosis for this admission?: Yes (2) Anemia Qualifiers: Anemia type: due to chronic kidney disease Chronic kidney disease stage: unspecified stage Qualified Code(s): N18.9 - Chronic kidney disease, unspecified; D63.1 - Anemia in chronic kidney disease; D63.1 - Anemia in chronic kidney disease Is this a current diagnosis for this admission?: Yes (3) Chronic pain Qualifiers: Chronic pain type: chronic pain syndrome Qualified Code(s): G89.4 - Chronic pain syndrome Is this a current diagnosis for this admission?: Yes (4) Decubitus ulcer Qualifiers: Pressure ulcer location: sacral region Pressure ulcer stage: stage 3 Qualified Code(s): L89.153 - Pressure ulcer of sacral region, stage 3 Is this a current diagnosis for this admission?: Yes (5) Diabetes mellitus Qualifiers: Diabetes mellitus type: type 1 Diabetes mellitus complication status: with unspecified complications Qualified Code(s): E10.8 - Type 1 diabetes mellitus with unspecified complications Is this a current diagnosis for this admission?: Yes (6) Groin abscess Is this a current diagnosis for this admission?: Yes (7) Hidradenitis suppurativa of anus Is this a current diagnosis for this admission?: Yes (9) Severe protein-calorie malnutrition Is this a current diagnosis for this admission?: Yes - Time Time Spent with patient: 15-24 minutes Medications reviewed and adjusted accordingly: Yes Anticipated discharge: Acute Rehab - Inpatient Certification Based on my medical assessment, after consideration of the patient's comorbidities, presenting symptoms, or acuity I expect that the services needed warrant INPATIENT care.: Yes Medical Necessity: Need for IV Antibiotics - Plan Summary Plan Summary: Bilateral groin wound status post incision and drainage with the extensive wound care as well as antibiotics till being utilized. Will follow up on cultures and adjust antibiotics as needed 2. Infected sacral wound 3. Type 2 diabetes mellitus 4. Hypokalemia and hypomagnesemia corrected 5. Severe protein calorie malnutrition 6. Crohn's disease stable 7. Physical debility
[2017-10-11] MEDS: FENTANYL CITRATE INJ/PF 100 MCG/2 ML AMPUL IV PRN (15:59)
[2017-10-11 18:57] LABS: VANCOMYCIN,TROUGH 15.4 ug/mL (5.0-20.0)
[2017-10-11] MEDS: TAMSULOSIN HCL 0.4 MG CAP.SR.24H PO SCH (22:28)
[2017-10-11] MEDS: INSULIN LISPRO 100 UNIT/ML 3 ML VIAL SUBCUT PRN (22:28)
[2017-10-11] MEDS: QUETIAPINE FUMARATE 25 MG TABLET PO SCH (22:28)
[2017-10-12] MEDS: VANCOMYCIN HCL 1,000 MG in DEXTROSE 5%-WATER 250 ML IV SCH ×3 (02:52→17:47)
[2017-10-12 04:26] LABS: ABSOLUTE BASOPHILS # (AUTO) 0.3 10^3/uL (0.0-0.2); ABSOLUTE EOSINOPHILS # (AUTO) 0.9 10^3/uL (0.0-0.6); ABSOLUTE LYMPHOCYTES (AUTO) 3.9 10^3/uL (0.5-4.7); ABSOLUTE MONOCYTES (AUTO) 2.2 10^3/uL (0.1-1.4); BASOPHILS % (AUTO) 1.6 % (0-2); EOSINOPHILS % (AUTO) 4.7 % (0-6); LYMPHOCYTES % (AUTO) 21.6 % (13-45); MEAN CORPUSCULAR HEMOGLOBIN 25.7 pg (27.0-33.4); MEAN CORPUSCULAR HGB CONC 32.2 g/dL (32.0-36.0); MEAN CORPUSCULAR VOLUME 80 fl (80-97); PLATELET COUNT 952 10^3/uL (150-450); RED BLOOD COUNT 3.13 10^6/uL (4.35-5.55); RED CELL DISTRIBUTION WIDTH 19.1 % (11.5-14.0); SEGMENTED NEUTROPHILS % (AUTO) 60.1 % (42-78); TOTAL CELLS COUNTED % (AUTO) 100 %; WHITE BLOOD COUNT 18.3 10^3/uL (4.0-10.5)
[2017-10-12 04:41] LABS: ANION GAP 5 (5-19); BLOOD UREA NITROGEN 8 mg/dL (7-20); CALCIUM 10.4 mg/dL (8.4-10.2); CARBON DIOXIDE 34 mmol/L (22-30); CHLORIDE 99 mmol/L (98-107); GLUCOSE 145 mg/dL (75-110); POTASSIUM 3.9 mmol/L (3.6-5.0); SODIUM 137.6 mmol/L (137-145)
[2017-10-12] MEDS: PIPERACILLIN SODIUM/TAZOBACTAM 3.375 GM in NORMAL SALINE 100 ML IV SCH ×3 (05:54→22:00)
[2017-10-12] MEDS: GABAPENTIN 300 MG CAPSULE PO SCH ×3 (05:55→21:53)
[2017-10-12] MEDS: OXYCODONE HCL IR 5 MG TABLET PO PRN ×4 (06:52→23:41)
[2017-10-12] MEDS: FINASTERIDE 5 MG TABLET PO SCH (10:06)
[2017-10-12] MEDS: DULOXETINE HCL 30 MG CAPSULE.DR PO SCH ×2 (10:06→21:53)
[2017-10-12] MEDS: MORPHINE SULFATE SR 100 MG TABLET PO SCH ×2 (10:06→21:54)
[2017-10-12] MEDS: ENOXAPARIN SODIUM INJ 40 MG/0.4 ML DISP.SYRIN SUBCUT SCH (10:07)
[2017-10-12] MEDS: INSULIN LISPRO 100 UNIT/ML 3 ML VIAL SUBCUT PRN ×2 (12:04→17:47)
--- NOTE | 2017-10-12 13:28 | PDOC PROGRESS REPORT ---
Subjective Progress Note for:: 10/12/17 Subjective:: Patient admitted with septic shock, denies any new symptoms. He is bed bound though says he was ambulatory till recently. This patient has had a prolonged hospitalization in fact 48 days today veering from1 infection to the other. He has had multiple ulcers on multiple incisions and drainage / when he had a partial debridement of necrotic fascia done the wound apparently looked relatively clean except for the necrotic area. His white count continues to be elevated at 21,000. It had trended down slightly sometime last week but began to climb again and he did have a positive blood culture yielded gram-positive cocci. The wound cultures from the right groin growing gram-negative rods. Patient remains debilitated with no gross change in his physical status Repeat BC yielding Staph Epi and Wound yielding Gram negative rods. Patient is on Zosyn and Vancomycin. Still has reactive thrombocytosis Reason For Visit: DKA, SEPSIS Physical Exam Vital Signs: Temp Pulse Resp BP Pulse Ox 99.4 F 101 H 18 123/77 99 10/12/17 07:27 10/12/17 07:27 10/12/17 07:27 10/12/17 07:27 10/12/17 07:27 Intake & Output 10/11/17 10/12/17 10/13/17 06:59 06:59 06:59 Intake Total 6004 5018 Output Total 5151 3766 Balance 918 1252 Weight 55.4 kg 55.8 kg General appearance: PRESENT: no acute distress, thin Head exam: PRESENT: atraumatic Ear exam: PRESENT: normal external ear exam Neck exam: PRESENT: carotid bruit Respiratory exam: PRESENT: clear to auscultation [place]. ABSENT: rales, rhonchi, wheezes Cardiovascular exam: PRESENT: RRR. ABSENT: diastolic murmur, rubs, systolic murmur Pulses: PRESENT: normal dorsalis pedis pul GI/Abdominal exam: PRESENT: other - colostomy bag Musculoskeletal exam: PRESENT: other - bilateral groin dressing Xple wounds and ulcers Neurological exam: PRESENT: alert, awake Psychiatric exam: PRESENT: flat affect Results Laboratory Results: 10/12/17 04:15 10/12/17 04:15 10/11/17 10/12/17 10/12/17 17:55 04:15 04:15 WBC 18.3 H RBC 3.13 L Hgb 8.0 L Hct 25.0 L MCV 80 MCH 25.7 L MCHC 32.2 RDW 19.1 H Plt Count 952 H Seg Neutrophils % 60.1 Lymphocytes % 21.6 Monocytes % 12.0 Eosinophils % 4.7 Basophils % 1.6 Absolute Neutrophils 11.0 H Absolute Lymphocytes 3.9 Absolute Monocytes 2.2 H Absolute Eosinophils 0.9 H Absolute Basophils 0.3 H Sodium 137.6 Potassium 3.9 Chloride 99 Carbon Dioxide 34 H Anion Gap 5 BUN 8 Creatinine 0.47 L 0.47 L Est GFR ( Amer) > 60 > 60 Est GFR (Non-Af Amer) > 60 > 60 Glucose 145 H Calcium 10.4 H 10/10/17 11:40 Catheterized Urine Urine Culture - Final NO GROWTH 2 DAYS 10/09/17 11:20 Blood Blood Culture - Final Staphylococcus Epidermidis 10/09/17 11:00 Blood Blood Culture - Final Staphylococcus Epidermidis 08/24/17 08/24/17 08/25/17 18:00 22:00 05:15 Creatine Kinase 140 117 82 CK-MB (CK-2) Troponin I NT-Pro-B Natriuret Pep 09/02/17 09/02/17 09/03/17 17:45 17:45 05:35 Creatine Kinase 50 L CK-MB (CK-2) 0.40 Troponin I 0.027 NT-Pro-B Natriuret Pep 4690 H Impressions: Thoracic Spine CT 08/26/17 08:00 IMPRESSION: No acute findings in the thoracic spine. Chest X-Ray 10/09/17 00:00 IMPRESSION: NO ACUTE RADIOGRAPHIC FINDING IN THE CHEST. Abdomen/Pelvis CT 10/09/17 13:59 IMPRESSION: NO SIGNIFICANT OR ACUTE FINDING IN THE ABDOMEN OR PELVIS ON CT SCAN WITH IV CONTRAST. SURGICAL CHANGES WITH PERIUMBILICAL COLOSTOMY AND PRIOR SPLENECTOMY. SMALL CORTICAL CYST IN THE LEFT KIDNEY. SOFT TISSUE DEFECT IN THE LEFT BUTTOCKS, INCOMPLETELY IMAGED. Assessment & Plan - Diagnosis (1) Abscess or cellulitis of perineum Is this a current diagnosis for this admission?: Yes (2) Anemia Qualifiers: Anemia type: due to chronic kidney disease Chronic kidney disease stage: unspecified stage Qualified Code(s): N18.9 - Chronic kidney disease, unspecified; D63.1 - Anemia in chronic kidney disease; D63.1 - Anemia in chronic kidney disease Is this a current diagnosis for this admission?: Yes (3) Chronic pain Qualifiers: Chronic pain type: chronic pain syndrome Qualified Code(s): G89.4 - Chronic pain syndrome Is this a current diagnosis for this admission?: Yes (4) Decubitus ulcer Qualifiers: Pressure ulcer location: sacral region Pressure ulcer stage: stage 3 Qualified Code(s): L89.153 - Pressure ulcer of sacral region, stage 3 Is this a current diagnosis for this admission?: Yes (5) Diabetes mellitus Qualifiers: Diabetes mellitus type: type 1 Diabetes mellitus complication status: with unspecified complications Qualified Code(s): E10.8 - Type 1 diabetes mellitus with unspecified complications Is this a current diagnosis for this admission?: Yes (6) Groin abscess Is this a current diagnosis for this admission?: Yes (7) Hidradenitis suppurativa of anus Is this a current diagnosis for this admission?: Yes (9) Severe protein-calorie malnutrition Is this a current diagnosis for this admission?: Yes - Time Time Spent with patient: 15-24 minutes Medications reviewed and adjusted accordingly: Yes Anticipated discharge: Acute Rehab - Inpatient Certification Based on my medical assessment, after consideration of the patient's comorbidities, presenting symptoms, or acuity I expect that the services needed warrant INPATIENT care.: Yes Medical Necessity: Need for IV Antibiotics - Plan Summary Plan Summary: 1.Bilateral groin wound status post incision and drainage with the extensive wound care as well as antibiotics till being utilized. Cultures noted. Continue same antibiotics for now 2. Infected sacral wound- see above 3. Type 2 diabetes mellitusm DKA resolved 4. Hypokalemia and hypomagnesemia corrected 5. Severe protein calorie malnutrition 6. Crohn's disease stable 7. Physical debility Prognosis is poor
[2017-10-12] MEDS: QUETIAPINE FUMARATE 25 MG TABLET PO SCH (21:53)
[2017-10-12] MEDS: TAMSULOSIN HCL 0.4 MG CAP.SR.24H PO SCH (21:54)
[2017-10-13] MEDS: VANCOMYCIN HCL 1,000 MG in DEXTROSE 5%-WATER 250 ML IV SCH ×3 (02:49→18:35)
[2017-10-13] MEDS: OXYCODONE HCL IR 5 MG TABLET PO PRN ×4 (03:20→23:09)
[2017-10-13] MEDS: FENTANYL CITRATE INJ/PF 100 MCG/2 ML AMPUL IV PRN ×2 (05:50→17:06)
[2017-10-13] MEDS: GABAPENTIN 300 MG CAPSULE PO SCH ×2 (05:52→14:55)
[2017-10-13] MEDS: PIPERACILLIN SODIUM/TAZOBACTAM 3.375 GM in NORMAL SALINE 100 ML IV SCH ×3 (05:53→21:09)
[2017-10-13] MEDS: ENOXAPARIN SODIUM INJ 40 MG/0.4 ML DISP.SYRIN SUBCUT SCH (09:13)
[2017-10-13] MEDS: DULOXETINE HCL 30 MG CAPSULE.DR PO SCH ×2 (09:14→21:07)
[2017-10-13] MEDS: MORPHINE SULFATE SR 100 MG TABLET PO SCH (09:14)
[2017-10-13] MEDS: FINASTERIDE 5 MG TABLET PO SCH (09:15)
[2017-10-13] MEDS: INSULIN LISPRO 100 UNIT/ML 3 ML VIAL SUBCUT PRN (12:16)
--- NOTE | 2017-10-13 16:13 | PDOC PROGRESS REPORT ---
Subjective Progress Note for:: 10/13/17 Subjective:: Patient admitted with septic shock, denies any new symptoms. He is bed bound though says he was ambulatory till recently. This patient has had a prolonged hospitalization in fact 48 days today veering from1 infection to the other. He has had multiple ulcers on multiple incisions and drainage / when he had a partial debridement of necrotic fascia done the wound apparently looked relatively clean except for the necrotic area. His white count continues to be elevated at 21,000. It had trended down slightly sometime last week but began to climb again and he did have a positive blood culture yielded gram-positive cocci. The wound cultures from the right groin growing gram-negative rods. Patient remains debilitated with no gross change in his physical status Repeat BC yielding Staph Epi and Wound yielding Gram negative rods. Patient is on Zosyn and Vancomycin. Reason For Visit: DKA, SEPSIS Physical Exam Vital Signs: Temp Pulse Resp BP Pulse Ox 98.9 F 107 H 19 117/77 98 10/13/17 12:11 10/13/17 14:00 10/13/17 12:11 10/13/17 12:11 10/13/17 12:11 Intake & Output 10/12/17 10/13/17 10/14/17 06:59 06:59 06:59 Intake Total 5018 3374 118 Output Total 0056 3976 1200 Balance 1252 -602 -1082 Weight 55.8 kg 55.9 kg General appearance: PRESENT: thin, other - cachectic Head exam: PRESENT: atraumatic Mouth exam: PRESENT: dry mucosa Respiratory exam: PRESENT: clear to auscultation daija. ABSENT: rales, rhonchi, wheezes Cardiovascular exam: PRESENT: RRR. ABSENT: diastolic murmur, rubs, systolic murmur GI/Abdominal exam: PRESENT: other - colostomy bag Gentrourinary exam: PRESENT: other - wound in bilateral groins Extremities exam: PRESENT: full ROM. ABSENT: calf tenderness, clubbing, pedal edema Neurological exam: PRESENT: alert, awake, oriented to person, oriented to time, oriented to situation Results Laboratory Results: 10/12/17 04:15 10/12/17 04:15 10/09/17 11:20 Blood Blood Culture - Final Staphylococcus Epidermidis 10/09/17 11:00 Blood Blood Culture - Final Staphylococcus Epidermidis 10/10/17 18:00 Sacrum - Deep Wound Gram Stain - Final 10/10/17 18:00 Sacrum - Deep Wound Wound Culture - Final Mrsa (Meth Resis Staph Aureus) Skin [place] No Anaerobic Organisms 08/24/17 08/24/17 08/25/17 18:00 22:00 05:15 Creatine Kinase 140 117 82 CK-MB (CK-2) Troponin I NT-Pro-B Natriuret Pep 09/02/17 09/02/17 09/03/17 17:45 17:45 05:35 Creatine Kinase 50 L CK-MB (CK-2) 0.40 Troponin I 0.027 NT-Pro-B Natriuret Pep 4690 H Impressions: Thoracic Spine CT 08/26/17 08:00 IMPRESSION: No acute findings in the thoracic spine. Chest X-Ray 10/09/17 00:00 IMPRESSION: NO ACUTE RADIOGRAPHIC FINDING IN THE CHEST. Abdomen/Pelvis CT 10/09/17 13:59 IMPRESSION: NO SIGNIFICANT OR ACUTE FINDING IN THE ABDOMEN OR PELVIS ON CT SCAN WITH IV CONTRAST. SURGICAL CHANGES WITH PERIUMBILICAL COLOSTOMY AND PRIOR SPLENECTOMY. SMALL CORTICAL CYST IN THE LEFT KIDNEY. SOFT TISSUE DEFECT IN THE LEFT BUTTOCKS, INCOMPLETELY IMAGED. Assessment & Plan - Diagnosis (1) Abscess or cellulitis of perineum Is this a current diagnosis for this admission?: Yes (2) Anemia Qualifiers: Anemia type: due to chronic kidney disease Chronic kidney disease stage: unspecified stage Qualified Code(s): N18.9 - Chronic kidney disease, unspecified; D63.1 - Anemia in chronic kidney disease; D63.1 - Anemia in chronic kidney disease Is this a current diagnosis for this admission?: Yes (3) Chronic pain Qualifiers: Chronic pain type: chronic pain syndrome Qualified Code(s): G89.4 - Chronic pain syndrome Is this a current diagnosis for this admission?: Yes (4) Decubitus ulcer Qualifiers: Pressure ulcer location: sacral region Pressure ulcer stage: stage 3 Qualified Code(s): L89.153 - Pressure ulcer of sacral region, stage 3 Is this a current diagnosis for this admission?: Yes (5) Diabetes mellitus Qualifiers: Diabetes mellitus type: type 1 Diabetes mellitus complication status: with unspecified complications Qualified Code(s): E10.8 - Type 1 diabetes mellitus with unspecified complications Is this a current diagnosis for this admission?: Yes (6) Groin abscess Is this a current diagnosis for this admission?: Yes (7) Hidradenitis suppurativa of anus Is this a current diagnosis for this admission?: Yes (9) Severe protein-calorie malnutrition Is this a current diagnosis for this admission?: Yes - Time Time Spent with patient: 15-24 minutes Medications reviewed and adjusted accordingly: Yes Anticipated discharge: Acute Rehab - Inpatient Certification Based on my medical assessment, after consideration of the patient's comorbidities, presenting symptoms, or acuity I expect that the services needed warrant INPATIENT care.: Yes - Plan Summary Plan Summary: 1.Bilateral groin wound status post incision and drainage still in need of wound care as well as IV abx. Cultures noted. Continue same antibiotics for now 2. Infected sacral wound- see above 3. Type 2 diabetes mellitusm DKA resolved 4. Hypokalemia and hypomagnesemia corrected 5. Severe protein calorie malnutrition 6. Crohn's disease stable 7. Physical debility Prognosis is poor
[2017-10-13] MEDS: PREGABALIN 50 MG CAPSULE PO SCH (21:06)
[2017-10-13] MEDS: QUETIAPINE FUMARATE 25 MG TABLET PO SCH (21:08)
[2017-10-13] MEDS: TAMSULOSIN HCL 0.4 MG CAP.SR.24H PO SCH (21:08)
[2017-10-13] MEDS ORDERED: MORPHINE SULFATE SR 100 MG TABLET PO SCH (22:00)
[2017-10-13] MEDS ORDERED: OXYCODONE HCL SR 40 MG TABLET PO SCH (22:00)
[2017-10-14] MEDS: VANCOMYCIN HCL 1,000 MG in DEXTROSE 5%-WATER 250 ML IV SCH ×3 (01:23→17:25)
[2017-10-14] MEDS: OXYCODONE HCL IR 5 MG TABLET PO PRN ×4 (03:29→20:31)
[2017-10-14] MEDS: PREGABALIN 50 MG CAPSULE PO SCH ×3 (06:09→22:20)
[2017-10-14] MEDS: FENTANYL CITRATE INJ/PF 100 MCG/2 ML AMPUL IV PRN ×2 (06:10→17:27)
[2017-10-14] MEDS: PIPERACILLIN SODIUM/TAZOBACTAM 3.375 GM in NORMAL SALINE 100 ML IV SCH ×3 (06:11→22:26)
[2017-10-14 06:36] LABS: HEMATOCRIT 25.8 % (37.9-51.0); HEMOGLOBIN 8.4 g/dL (13.5-17.0); MEAN CORPUSCULAR HEMOGLOBIN 25.8 pg (27.0-33.4); MEAN CORPUSCULAR HGB CONC 32.5 g/dL (32.0-36.0); MEAN CORPUSCULAR VOLUME 79 fl (80-97); RED BLOOD COUNT 3.25 10^6/uL (4.35-5.55); RED CELL DISTRIBUTION WIDTH 19.3 % (11.5-14.0); WHITE BLOOD COUNT 19.5 10^3/uL (4.0-10.5)
[2017-10-14 06:51] LABS: ANION GAP 6 (5-19); BLOOD UREA NITROGEN 7 mg/dL (7-20); CALCIUM 10.7 mg/dL (8.4-10.2); CARBON DIOXIDE 35 mmol/L (22-30); CHLORIDE 96 mmol/L (98-107); GLUCOSE 122 mg/dL (75-110); POTASSIUM 4.2 mmol/L (3.6-5.0); SODIUM 136.9 mmol/L (137-145)
[2017-10-14 07:52] LABS: PLATELET COUNT 1002 10^3/uL (150-450)
[2017-10-14 07:55] LABS: ABSOLUTE LYMPHOCYTES# (MANUAL) 4.7 10^3/uL (0.5-4.7); ABSOLUTE MONOCYTES # (MANUAL) 2.1 10^3/uL (0.1-1.4); ABSOLUTE NEUTROPHILS# (MANUAL) 11.7 10^3/uL (1.7-8.2); BASOPHILS % (MANUAL) 1 % (0-2); EOSINOPHILS % (MANUAL) 4 % (0-6); LYMPHOCYTES % (MANUAL) 24 % (13-45); MONOCYTES % (MANUAL) 11 % (3-13); SEGMENTED NEUTROPHILS % (MAN) 60 % (42-78); TOTAL CELLS COUNTED 100
[2017-10-14 07:56] LABS: ANISOCYTOSIS 2+; HYPOCHROMASIA SLIGHT; PLATELET COMMENT INCREASED; ROULEAUX SLIGHT; TOXIC GRANULATION SLIGHT; TOXIC VACUOLATION PRESENT
--- NOTE | 2017-10-14 08:54 | CONSULT/HISTORY AND PHYSICAL E ---
Consultation/History and Physical PATIENT NAME: TIA VILLANUEVA : 1965 AGE: 51Y DATE: 10/13/2017 ROOM: 308 TYPE OF CONSULTATION: Pain management. CHIEF COMPLAINT: Pain. HISTORY OF PRESENT ILLNESS: A 51-year-old -Armenian male admitted back in August. Has since developed multiple wounds and ulcers. Currently with positive MRSA and septic as well. Pain is poorly controlled, per the patient's report. Patient is currently on MS Contin 100 mg q. 12 hours scheduled, OxyIR 20 mg q. 4 hours p.r.n., but has been getting around the clock per the nursing staff. He is also on Neurontin 600 mg q. 8 hours. Also getting Fentanyl 75 mcg IV q. 12 hours prior to dressing changes. Again, patient reports poor pain control with current pain regimen. If anything, oxycodone has been the most effective of everything so far. PAST MEDICAL HISTORY: 1. Hypertension. 2. Previous [place] in 2014. 3. Asthma. 4. History of pneumonia. 5. Seizures. 6. DM type 2. 7. Crohn disease. 8. Arthritis. 9. Anemia. SURGICAL HISTORY: He has a colostomy. SOCIAL HISTORY: No reported smoking, alcohol, illicit drug abuse. ALLERGIES: 1. LOMOTIL 2. PAXIL 3. BACTRIM 4. ERYTHROMYCIN MEDICATIONS: See MAR. REVIEW OF SYSTEMS: Per the HPI. PHYSICAL EXAMINATION: VITAL SIGNS: None available. GENERAL: Well-developed, well-nourished, underweight, thin -Armenian male, alert and oriented x3. He is currently under contact precautions so physical exam is limited. HEENT: Grossly full EOMI. NECK: CROM is grossly full. CARDIOVASCULAR: Regular rate and rhythm on auscultation. RESPIRATIONS: Even, nonlabored. Lungs are clear to auscultation. ABDOMEN: He does have a colostomy bag present. SKIN: Bandages noted on his feet along with pressure precaution padding. Bandages noted along his groin area. He was unable to turn over to visualize the other areas affected. NEURO: Alert and oriented x3. ASSESSMENT: 1. Multiple skin wounds, ulcerations. 2. Methicillin-resistant Staphylococcus aureus. 3. Chronic pain. 4. Sepsis. PLAN: 1. We will change the Neurontin to Lyrica 150 mg q. 8 hours scheduled. 2. We will change the MS Contin to OxyContin 60 mg q. 12 hours scheduled, and we will continue the OxyIR at the current dose/ SIG for breakthrough pain p.r.n. DICTATED FOR: Mo Carrasquillo MD, and Danya Arvizu MD DICTATING PHYSICIAN: CORINA LANG PA-C [id number] PHY#: [id number] ID: [id number] JOB#: [id number] ACCT: [id number] cc:TERESITA GERBER M.D. EB BAKER PA-C > MTDD
[2017-10-14] MEDS: FINASTERIDE 5 MG TABLET PO SCH (09:19)
[2017-10-14] MEDS: ENOXAPARIN SODIUM INJ 40 MG/0.4 ML DISP.SYRIN SUBCUT SCH (09:19)
[2017-10-14] MEDS: DULOXETINE HCL 30 MG CAPSULE.DR PO SCH ×2 (09:19→22:21)
[2017-10-14] MEDS: OXYCODONE HCL SR 10 MG TABLET PO SCH ×2 (09:19→22:20)
[2017-10-14] MEDS: OXYCODONE HCL SR 40 MG TABLET PO SCH ×2 (09:20→22:21)
--- NOTE | 2017-10-14 12:09 | PDOC PROGRESS REPORT ---
Subjective Progress Note for:: 10/14/17 Subjective:: Patient admitted with septic shock, denies any new symptoms. He is bed bound though says he was ambulatory till recently. This patient has had a prolonged hospitalization in fact 48 days today veering from1 infection to the other. He has had multiple ulcers on multiple incisions and drainage / when he had a partial debridement of necrotic fascia done the wound apparently looked relatively clean except for the necrotic area. His white count continues to be elevated at 21,000. It had trended down slightly sometime last week but began to climb again and he did have a positive blood culture yielded gram-positive cocci. The wound cultures from the right groin growing gram-negative rods. Patient remains debilitated with no gross change in his physical status Repeat BC yielding Staph Epi and Wound yielding Gram negative rods. Patient is on Zosyn and Vancomycin. Reason For Visit: DKA, SEPSIS Physical Exam Vital Signs: Temp Pulse Resp BP Pulse Ox 99.6 F 105 H 18 132/82 H 100 10/14/17 07:38 10/14/17 07:38 10/14/17 07:38 10/14/17 07:38 10/14/17 07:38 Intake & Output 10/13/17 10/14/17 10/15/17 06:59 06:59 06:59 Intake Total 3374 2793 Output Total 397 4400 Balance -602 -1607 Weight 55.9 kg 53.4 kg General appearance: PRESENT: no acute distress, thin - Cachectic Head exam: PRESENT: atraumatic Eye exam: PRESENT: conjunctiva pink, EOMI, PERRLA. ABSENT: scleral icterus Mouth exam: PRESENT: moist, tongue midline Neck exam: ABSENT: carotid bruit, JVD, lymphadenopathy, thyromegaly GI/Abdominal exam: PRESENT: normal bowel sounds, soft, other - colostomy. ABSENT: distended, guarding, mass, organolmegaly, rebound, tenderness Rectal exam: PRESENT: deferred Extremities exam: PRESENT: other - heel eschar Musculoskeletal exam: PRESENT: other - bilateral wound and groin incision wounds , appear to be clean Neurological exam: PRESENT: alert, awake, oriented to time, oriented to situation, other - bilateral feet drop Skin exam: PRESENT: other - xple skin ulcers, wounds, sacral wound with wound vac Results Laboratory Results: 10/14/17 06:00 10/14/17 06:00 10/14/17 10/14/17 06:00 06:00 WBC 19.5 H RBC 3.25 L Hgb 8.4 L Hct 25.8 L MCV 79 L MCH 25.8 L MCHC 32.5 RDW 19.3 H Plt Count 1002 H* Seg Neutrophils % Not Reportable Lymphocytes % Not Reportable Monocytes % Not Reportable Eosinophils % Not Reportable Basophils % Not Reportable Absolute Neutrophils Not Reportable Absolute Lymphocytes Not Reportable Absolute Monocytes Not Reportable Absolute Eosinophils Not Reportable Absolute Basophils Not Reportable Sodium 136.9 L Potassium 4.2 Chloride 96 L Carbon Dioxide 35 H Anion Gap 6 BUN 7 Creatinine 0.47 L Est GFR ( Amer) > 60 Est GFR (Non-Af Amer) > 60 Glucose 122 H Calcium 10.7 H 10/10/17 18:00 Groin - Right Gram Stain - Final 10/10/17 18:00 Groin - Right Wound Culture - Final Escherichia Coli Klebsiella Pneumoniae Mrsa (Meth Resis Staph Aureus) Skin [place] 10/09/17 11:20 Blood Blood Culture - Final Staphylococcus Epidermidis 10/09/17 11:00 Blood Blood Culture - Final Staphylococcus Epidermidis 10/10/17 18:00 Sacrum - Deep Wound Gram Stain - Final 10/10/17 18:00 Sacrum - Deep Wound Wound Culture - Final Mrsa (Meth Resis Staph Aureus) Skin [place] No Anaerobic Organisms 08/24/17 08/24/17 08/25/17 18:00 22:00 05:15 Creatine Kinase 140 117 82 CK-MB (CK-2) Troponin I NT-Pro-B Natriuret Pep 09/02/17 09/02/17 09/03/17 17:45 17:45 05:35 Creatine Kinase 50 L CK-MB (CK-2) 0.40 Troponin I 0.027 NT-Pro-B Natriuret Pep 4690 H Impressions: Thoracic Spine CT 08/26/17 08:00 IMPRESSION: No acute findings in the thoracic spine. Chest X-Ray 10/09/17 00:00 IMPRESSION: NO ACUTE RADIOGRAPHIC FINDING IN THE CHEST. Abdomen/Pelvis CT 10/09/17 13:59 IMPRESSION: NO SIGNIFICANT OR ACUTE FINDING IN THE ABDOMEN OR PELVIS ON CT SCAN WITH IV CONTRAST. SURGICAL CHANGES WITH PERIUMBILICAL COLOSTOMY AND PRIOR SPLENECTOMY. SMALL CORTICAL CYST IN THE LEFT KIDNEY. SOFT TISSUE DEFECT IN THE LEFT BUTTOCKS, INCOMPLETELY IMAGED. Assessment & Plan - Diagnosis (1) Abscess or cellulitis of perineum Is this a current diagnosis for this admission?: Yes (2) Anemia Qualifiers: Anemia type: due to chronic kidney disease Chronic kidney disease stage: unspecified stage Qualified Code(s): N18.9 - Chronic kidney disease, unspecified; D63.1 - Anemia in chronic kidney disease; D63.1 - Anemia in chronic kidney disease Is this a current diagnosis for this admission?: Yes (3) Chronic pain Qualifiers: Chronic pain type: chronic pain syndrome Qualified Code(s): G89.4 - Chronic pain syndrome Is this a current diagnosis for this admission?: Yes (4) Decubitus ulcer Qualifiers: Pressure ulcer location: sacral region Pressure ulcer stage: stage 3 Qualified Code(s): L89.153 - Pressure ulcer of sacral region, stage 3 Is this a current diagnosis for this admission?: Yes (5) Diabetes mellitus Qualifiers: Diabetes mellitus type: type 1 Diabetes mellitus complication status: with unspecified complications Qualified Code(s): E10.8 - Type 1 diabetes mellitus with unspecified complications Is this a current diagnosis for this admission?: Yes (6) Groin abscess Is this a current diagnosis for this admission?: Yes (7) Hidradenitis suppurativa of anus Is this a current diagnosis for this admission?: Yes (9) Severe protein-calorie malnutrition Is this a current diagnosis for this admission?: Yes - Time Time Spent with patient: 15-24 minutes Medications reviewed and adjusted accordingly: Yes Anticipated discharge: Acute Rehab - Inpatient Certification Based on my medical assessment, after consideration of the patient's comorbidities, presenting symptoms, or acuity I expect that the services needed warrant INPATIENT care.: Yes Medical Necessity: Need for IV Antibiotics - Plan Summary Plan Summary: 1.Bilateral groin wound status post incision and drainage still in need of wound care as well as IV abx. Deep sacral wound yielding MRSA and right groin wound yielding E. coli as well as Klebsiella and MRSA. Patient has been on prolonged antibiotics and currently he is on Zosyn and vancomycin. He continues to have a reactive thrombocytosis with his platelet count today at 1 million. He also has a persistent leukocytosis. Although thrombocytosis is likely secondary to his infection I will go ahead and consult hematology for their comment as it continues to climb despite a treatment of the infection. Patient may benefit from being in a facility with multidisciplinary approach including infectious disease and aggressive wound care. He has been at this hospital for 51 days at this point 2. Infected sacral wound- see above 3. Type 2 diabetes mellitus DKA resolved 4. Hypokalemia and hypomagnesemia corrected 5. Severe protein calorie malnutrition-encouraged nutritional supplement 6. Crohn's disease stable 7. Physical debility-started on physical therapy October 13 8, thrombocytosis likely reactive. Will obtain hematology consult Prognosis is poor
[2017-10-14] MEDS: INSULIN LISPRO 100 UNIT/ML 3 ML VIAL SUBCUT PRN (12:35)
[2017-10-14] MEDS: ONDANSETRON 4 MG TAB.RAPDIS PO PRN (20:30)
[2017-10-14] MEDS: QUETIAPINE FUMARATE 25 MG TABLET PO SCH (22:21)
[2017-10-14] MEDS: TAMSULOSIN HCL 0.4 MG CAP.SR.24H PO SCH (22:21)
[2017-10-15] MEDS: OXYCODONE HCL IR 5 MG TABLET PO PRN ×4 (00:56→16:45)
[2017-10-15] MEDS: VANCOMYCIN HCL 1,000 MG in DEXTROSE 5%-WATER 250 ML IV SCH ×3 (01:24→18:00)
[2017-10-15] MEDS: PREGABALIN 50 MG CAPSULE PO SCH ×3 (06:22→22:21)
[2017-10-15] MEDS: PIPERACILLIN SODIUM/TAZOBACTAM 3.375 GM in NORMAL SALINE 100 ML IV SCH ×2 (06:25→14:01)
[2017-10-15 06:54] LABS: HEMATOCRIT 25.8 % (37.9-51.0); HEMOGLOBIN 8.6 g/dL (13.5-17.0); MEAN CORPUSCULAR HEMOGLOBIN 26.4 pg (27.0-33.4); MEAN CORPUSCULAR HGB CONC 33.2 g/dL (32.0-36.0); MEAN CORPUSCULAR VOLUME 80 fl (80-97); RED BLOOD COUNT 3.24 10^6/uL (4.35-5.55); RED CELL DISTRIBUTION WIDTH 18.7 % (11.5-14.0); WHITE BLOOD COUNT 21.1 10^3/uL (4.0-10.5)
[2017-10-15] MEDS: FENTANYL CITRATE INJ/PF 100 MCG/2 ML AMPUL IV PRN (06:57)
[2017-10-15 07:16] LABS: PLATELET COUNT 1045 10^3/uL (150-450)
[2017-10-15 08:26] LABS: ERYTHROCYTE SEDIMENTATION RATE > 120 mm/hr (0-15)
[2017-10-15] MEDS: OXYCODONE HCL SR 10 MG TABLET PO SCH ×2 (09:27→21:30)
[2017-10-15] MEDS: OXYCODONE HCL SR 40 MG TABLET PO SCH ×2 (09:27→22:21)
[2017-10-15] MEDS: DULOXETINE HCL 30 MG CAPSULE.DR PO SCH ×2 (09:28→21:29)
[2017-10-15] MEDS: FINASTERIDE 5 MG TABLET PO SCH (09:28)
[2017-10-15] MEDS: ENOXAPARIN SODIUM INJ 40 MG/0.4 ML DISP.SYRIN SUBCUT SCH (09:28)
[2017-10-15] MEDS: INSULIN LISPRO 100 UNIT/ML 3 ML VIAL SUBCUT PRN (11:17)
--- NOTE | 2017-10-15 15:14 | PDOC PROGRESS REPORT ---
Subjective Progress Note for:: 10/15/17 Subjective:: Patient states that he is not feeling well. He has a headache. He has no appetite. Reason For Visit: DKA, SEPSIS Physical Exam Vital Signs: Temp Pulse Resp BP Pulse Ox 99.6 F 105 H 18 129/77 H 98 10/15/17 11:07 10/15/17 14:00 10/15/17 11:07 10/15/17 11:07 10/15/17 11:07 Intake & Output 10/14/17 10/15/17 10/16/17 06:59 06:59 06:59 Intake Total 2793 2957 50 Output Total 4400 5050 300 Balance -1607 -2093 -140 Weight 53.4 kg 53.2 kg General appearance: PRESENT: no acute distress Exam: 51 year old male. Respiratory exam: PRESENT: clear to auscultation daija, unlabored Cardiovascular exam: PRESENT: RRR Neurological exam: PRESENT: alert, awake Psychiatric exam: PRESENT: appropriate affect Skin exam: PRESENT: normal color Results Laboratory Results: 10/15/17 05:40 10/14/17 06:00 10/15/17 10/15/17 05:40 05:40 WBC 21.1 H RBC 3.24 L Hgb 8.6 L Hct 25.8 L MCV 80 MCH 26.4 L MCHC 33.2 RDW 18.7 H Plt Count 1045 H* C-Reactive Protein 72.7 H 08/24/17 08/24/17 08/25/17 18:00 22:00 05:15 Creatine Kinase 140 117 82 CK-MB (CK-2) Troponin I NT-Pro-B Natriuret Pep 09/02/17 09/02/17 09/03/17 17:45 17:45 05:35 Creatine Kinase 50 L CK-MB (CK-2) 0.40 Troponin I 0.027 NT-Pro-B Natriuret Pep 4690 H Impressions: Thoracic Spine CT 08/26/17 08:00 IMPRESSION: No acute findings in the thoracic spine. Chest X-Ray 10/09/17 00:00 IMPRESSION: NO ACUTE RADIOGRAPHIC FINDING IN THE CHEST. Abdomen/Pelvis CT 10/09/17 13:59 IMPRESSION: NO SIGNIFICANT OR ACUTE FINDING IN THE ABDOMEN OR PELVIS ON CT SCAN WITH IV CONTRAST. SURGICAL CHANGES WITH PERIUMBILICAL COLOSTOMY AND PRIOR SPLENECTOMY. SMALL CORTICAL CYST IN THE LEFT KIDNEY. SOFT TISSUE DEFECT IN THE LEFT BUTTOCKS, INCOMPLETELY IMAGED. Assessment & Plan - Diagnosis (1) Anemia, chronic disease Is this a current diagnosis for this admission?: Yes Plan: Currently stable. No indication for blood transfusion. (2) Leukocytosis Qualifiers: Leukocytosis type: leukemoid reaction Qualified Code(s): D72.823 - Leukemoid reaction Is this a current diagnosis for this admission?: Yes Plan: Full work-up negative for primary bone marrow problem. Appears to be reactive. Currently stable. (3) Thrombocytosis Is this a current diagnosis for this admission?: Yes Plan: This has been thought to be reactive, per prior work-up. However, it is now >1, 000,000. It is still quite possible for this to be a reactive process. He is on Lovenox for DVT prophylaxis. There are some studies to suggest an increased risk of BLEEDING in these patients as well, so would watch closely for this. (4) Abscess or cellulitis of perineum Is this a current diagnosis for this admission?: Yes Plan: His chronic infections are still the primary worry. I would agree with Infectious disease consult. Has HIV been tested? I will obtain immunoglobulin levels to check for hypogammaglobulinemia.
--- NOTE | 2017-10-15 17:02 | PDOC PROGRESS REPORT ---
Subjective Progress Note for:: 10/15/17 Subjective:: Patient states he still has his chronic leg and back pain. He thinks he is eating and drinking okay. He has been sleeping better. He feels more clear headed. No chest pain or difficulty breathing. He does not think he is bleeding anywhere. No fever or chills as far as he can tell. Reason For Visit: DKA, SEPSIS Physical Exam Vital Signs: Temp Pulse Resp BP Pulse Ox 99.6 F 105 H 18 129/77 H 98 10/15/17 11:07 10/15/17 14:00 10/15/17 11:07 10/15/17 11:07 10/15/17 11:07 Intake & Output 10/14/17 10/15/17 10/16/17 06:59 06:59 06:59 Intake Total 2793 2957 50 Output Total 4400 5050 300 Balance -1603 -2093 -596 Weight 53.4 kg 53.2 kg General appearance: PRESENT: no acute distress, cooperative, thin Head exam: PRESENT: atraumatic, normocephalic Eye exam: PRESENT: conjunctiva pink, EOMI. ABSENT: scleral icterus Ear exam: PRESENT: normal external ear exam. ABSENT: bleeding Mouth exam: PRESENT: moist Neck exam: ABSENT: tenderness Respiratory exam: PRESENT: decreased breath sounds, unlabored. ABSENT: rales, rhonchi, wheezes Cardiovascular exam: PRESENT: RRR. ABSENT: systolic murmur Pulses: PRESENT: normal radial pulses GI/Abdominal exam: PRESENT: normal bowel sounds, soft, other - Ostomy in place with brown soft stool within bag. ABSENT: distended, guarding, tenderness Gentrourinary exam: ABSENT: urethral discharge Extremities exam: ABSENT: full ROM, pedal edema Musculoskeletal exam: PRESENT: other - Sarco uriel. ABSENT: ambulatory Neurological exam: PRESENT: alert, awake, oriented to person, oriented to place , oriented to situation - Patient is able to move all extremities spontaneously. Psychiatric exam: PRESENT: flat affect. ABSENT: agitated Skin exam: PRESENT: warm - Wound VAC in place. Bilateral groin wet-to-dry dressings intact Results Laboratory Results: 10/15/17 05:40 10/14/17 06:00 10/15/17 10/15/17 05:40 05:40 WBC 21.1 H RBC 3.24 L Hgb 8.6 L Hct 25.8 L MCV 80 MCH 26.4 L MCHC 33.2 RDW 18.7 H Plt Count 1045 H* C-Reactive Protein 72.7 H 08/24/17 08/24/17 08/25/17 18:00 22:00 05:15 Creatine Kinase 140 117 82 CK-MB (CK-2) Troponin I NT-Pro-B Natriuret Pep 09/02/17 09/02/17 09/03/17 17:45 17:45 05:35 Creatine Kinase 50 L CK-MB (CK-2) 0.40 Troponin I 0.027 NT-Pro-B Natriuret Pep 4690 H Impressions: Thoracic Spine CT 08/26/17 08:00 IMPRESSION: No acute findings in the thoracic spine. Chest X-Ray 10/09/17 00:00 IMPRESSION: NO ACUTE RADIOGRAPHIC FINDING IN THE CHEST. Abdomen/Pelvis CT 10/09/17 13:59 IMPRESSION: NO SIGNIFICANT OR ACUTE FINDING IN THE ABDOMEN OR PELVIS ON CT SCAN WITH IV CONTRAST. SURGICAL CHANGES WITH PERIUMBILICAL COLOSTOMY AND PRIOR SPLENECTOMY. SMALL CORTICAL CYST IN THE LEFT KIDNEY. SOFT TISSUE DEFECT IN THE LEFT BUTTOCKS, INCOMPLETELY IMAGED. Assessment & Plan - Diagnosis (1) Abscess or cellulitis of perineum Is this a current diagnosis for this admission?: Yes Plan: Patient has had multiple debridements of wounds related to hidradenitis suppurativa. He currently has a wound VAC in place over sacral wounds. He has wet to dry dressings in the groin laterally. Surgical service is following. I do not see any new cellulitis though it was difficult to do a full skin exam today. Patient has a hard time moving about in bed secondary to chronic pain. Afebrile. Will monitor closely secondary to thrombocytosis to see if there are other infected sites. Patient has had many cultures of these wounds. He has most recently grown Klebsiella pneumoniae, E. coli, MRSA. I am going to change his Klebsiella and E. coli coverage to cefepime as the FANNIE is better than for zosyn. (2) Diabetic keto-acidosis Qualifiers: Diabetes mellitus type: type 1 Diabetes mellitus complication detail: with coma Qualified Code(s): E10.11 - Type 1 diabetes mellitus with ketoacidosis with coma Is this a current diagnosis for this admission?: Yes Plan: Resolved. Treating blood sugar carefully and monitoring diet carefully to prevent DKA or other complications related to diabetes.. (3) Hidradenitis suppurativa of anus Is this a current diagnosis for this admission?: Yes Plan: I will speak with the surgeon about this patient's condition which we cannot seem to get a handle on. It may be that he needs transfer to a hospital with specialized surgical services such as plastics. (4) Severe protein-calorie malnutrition Is this a current diagnosis for this admission?: Yes Plan: Nutrition consult was placed. We are doing our best to help patient with improving his nutritional status. (5) Acute and chronic respiratory failure Qualifiers: Respiratory failure complication: hypoxia Qualified Code(s): J96.21 - Acute and chronic respiratory failure with hypoxia Is this a current diagnosis for this admission?: Yes Plan: Was initially on the ventilator in the ICU. Now his respiratory status is stable. (6) Crohns disease Qualifiers: Gastrointestinal tract location: unspecified location Is this a current diagnosis for this admission?: Yes Plan: Stable. (7) Hypotension Qualifiers: Hypotension type: other hypotension type Qualified Code(s): I95.89 - Other hypotension Is this a current diagnosis for this admission?: Yes Plan: Stable and asymptomatic. (8) Leukocytosis Qualifiers: Leukocytosis type: leukemoid reaction Qualified Code(s): D72.823 - Leukemoid reaction Is this a current diagnosis for this admission?: Yes Plan: Hematology has been consulted. It is possible that this patient has an debrided wounds. Again I will speak with surgery about this patient and his complicated hidradenitis to see if he needs transfer to a specialty hospital. In addition there are multiple cultures and there have been multiple infections during this hospitalization. Patient does not appear to have an active pneumonia. He is on Vanco and Zosyn for culture results from the hidradenitis wounds including MRSA, E. coli, Klebsiella pneumoniae. Today I will change his Zosyn to cefepime due to a better FANNIE. It is possible that we need to transfer this patient to a facility where she can have an infectious diseases consult. Will discuss with the surgeon. (9) Pneumonia Qualifiers: Laterality: bilateral Lung location: unspecified part of lung Is this a current diagnosis for this admission?: Yes Plan: Currently on Vanco and Zosyn. Last chest x-ray was clear. No new chest symptoms to indicate a new pneumonia. (10) Hypoxic brain injury Is this a current diagnosis for this admission?: Yes Plan: Patient may have sustained a hypoxic brain injury as he was found down for an unknown period of time. He was brought into the hospital unconscious and was on a ventilator for a while. When I see his family I can talk to them about his mental status and how close he is to his baseline. (11) Diabetic neuropathy Qualifiers: Diabetes mellitus type: type 1 Diabetes mellitus complication detail: diabetic polyneuropathy Qualified Code(s): E10.42 - Type 1 diabetes mellitus with diabetic polyneuropathy Is this a current diagnosis for this admission?: Yes Plan: Patient has been recently seen by the pain consult service. Recently his Neurontin was changed to Lyrica. Will monitor whether or not that medication has an impac his significant neuropathy. (12) Diabetes mellitus Qualifiers: Diabetes mellitus type: type 1 Diabetes mellitus complication status: with unspecified complications Qualified Code(s): E10.8 - Type 1 diabetes mellitus with unspecified complications Is this a current diagnosis for this admission?: Yes Plan: CBGs fairly well controlled. Continue current care. (13) Chronic pain Qualifiers: Chronic pain type: chronic pain syndrome Qualified Code(s): G89.4 - Chronic pain syndrome Is this a current diagnosis for this admission?: Yes Plan: Patient has been seen by the pain consult service. We will continue medications as recommended by that service. (14) Opioid dependence in controlled environment Is this a current diagnosis for this admission?: Yes - Time Time Spent with patient: 25-34 minutes Anticipated discharge: Other - Small tertiary care center versus LTAC - Inpatient Certification Based on my medical assessment, after consideration of the patient's comorbidities, presenting symptoms, or acuity I expect that the services needed warrant INPATIENT care.: Yes Medical Necessity: Significant Comorbidiites Make Outpatient Treatment Too Risky , Need Close Monitoring Due to Risk of Patient Decompensation, Need for IV Antibiotics
[2017-10-15] MEDS ORDERED: ALTEPLASE INJ 2 MG VIAL (CATH CLEARANCE) INJ ONE (17:15)
[2017-10-15] MEDS: TAMSULOSIN HCL 0.4 MG CAP.SR.24H PO SCH (21:30)
[2017-10-15] MEDS: QUETIAPINE FUMARATE 25 MG TABLET PO SCH (21:30)
[2017-10-15] MEDS ORDERED: CEFEPIME 2 GM/D5W RTU 2 GM/50 ML RTUPB IV SCH (22:00)
[2017-10-15] MEDS ORDERED: CEFEPIME 2 GM/D5W RTU 2 GM/50 ML RTUPB IV ONE (22:15)
[2017-10-16] MEDS: OXYCODONE HCL IR 5 MG TABLET PO PRN ×4 (00:56→19:08)
[2017-10-16] MEDS: VANCOMYCIN HCL 1,000 MG in DEXTROSE 5%-WATER 250 ML IV SCH ×3 (01:07→17:34)
[2017-10-16] MEDS: PREGABALIN 50 MG CAPSULE PO SCH ×3 (05:13→21:05)
[2017-10-16 05:42] LABS: HEMATOCRIT 26.3 % (37.9-51.0); HEMOGLOBIN 8.7 g/dL (13.5-17.0); MEAN CORPUSCULAR HEMOGLOBIN 26.4 pg (27.0-33.4); MEAN CORPUSCULAR VOLUME 80 fl (80-97); RED CELL DISTRIBUTION WIDTH 19.2 % (11.5-14.0)
[2017-10-16] MEDS: FENTANYL CITRATE INJ/PF 100 MCG/2 ML AMPUL IV PRN ×2 (05:49→17:34)
[2017-10-16 06:10] LABS: PLATELET COUNT 1107 10^3/uL (150-450); WHITE BLOOD COUNT 21.8 10^3/uL (4.0-10.5)
[2017-10-16] MEDS: ENOXAPARIN SODIUM INJ 40 MG/0.4 ML DISP.SYRIN SUBCUT SCH (09:07)
[2017-10-16] MEDS: OXYCODONE HCL SR 10 MG TABLET PO SCH ×2 (09:08→21:04)
[2017-10-16] MEDS: OXYCODONE HCL SR 40 MG TABLET PO SCH ×2 (09:08→21:04)
[2017-10-16] MEDS: FINASTERIDE 5 MG TABLET PO SCH (09:09)
[2017-10-16] MEDS: DULOXETINE HCL 30 MG CAPSULE.DR PO SCH ×2 (09:09→21:05)
[2017-10-16 11:03] LABS: VANCOMYCIN,TROUGH 18.3 ug/mL (5.0-20.0)
[2017-10-16] MEDS: CEFEPIME HCL 2 GM in DEXTROSE 5%-WATER 100 ML IV SCH (11:15)
--- NOTE | 2017-10-16 13:02 | PDOC PROGRESS REPORT ---
Subjective Progress Note for:: 10/16/17 Subjective:: Today Mr. Borges was pretty talkative. He states he is not having any new pain. He has his chronic leg pain. It hurts on his backside where he is lying on the wound VAC essentially. He has not had fever or chills of which he knows that he states he was a little sweaty this morning. He is eating okay. No significant nausea. No vomiting. Problems with his ostomy. No chest pain or difficulty breathing. We talked about his hypoxic state upon admission to the hospital which provided concern for a possible hypoxic brain injury. He tells me today that over the past few weeks, as his mental status has been clearing, he had been having very vision and difficulty hearing and he states that both of those things are getting closer to normal. He feels like he is thinking clearly. We talked also about the possibility of transfer to a tertiary care center should we not be able to terminate etiology of the thrombocytosis and leukocytosis. He agrees to transfer if we think that is necessary. Reason For Visit: DKA, SEPSIS Physical Exam Vital Signs: Temp Pulse Resp BP Pulse Ox 99.3 F 104 H 16 139/83 H 99 10/16/17 08:08 10/16/17 08:08 10/16/17 08:08 10/16/17 08:08 10/16/17 08:08 Intake & Output 10/15/17 10/16/17 10/17/17 06:59 06:59 06:59 Intake Total 2957 1955 Output Total 5050 4050 Balance -2092 Weight 53.2 kg 53 kg General appearance: PRESENT: no acute distress, cooperative, thin Head exam: PRESENT: atraumatic, normocephalic Eye exam: PRESENT: conjunctiva pink, EOMI. ABSENT: scleral icterus Ear exam: PRESENT: normal external ear exam Mouth exam: PRESENT: moist, neck supple Neck exam: PRESENT: tenderness Respiratory exam: PRESENT: decreased breath sounds, unlabored. ABSENT: rales, rhonchi, wheezes Cardiovascular exam: PRESENT: RRR. ABSENT: systolic murmur Pulses: PRESENT: normal radial pulses GI/Abdominal exam: PRESENT: normal bowel sounds, soft, other - Ostomy intact without complication and brown soft stool within the bag. ABSENT: distended, firm, tenderness Rectal exam: PRESENT: other - External inspection of rectum shows no new areas of draining, no new erythema, wound VAC is in place Gentrourinary exam: PRESENT: indwelling catheter - Yellow urine in bag Extremities exam: PRESENT: tenderness, other - Patient can move his legs against gravity. He appears to be developing contractures.. ABSENT: full ROM Musculoskeletal exam: ABSENT: ambulatory Neurological exam: PRESENT: alert, awake, oriented to person, oriented to place , oriented to situation, CN II-XII grossly intact Psychiatric exam: PRESENT: flat affect. ABSENT: anxious Skin exam: PRESENT: warm, other - Wound VAC intact over sacral lesions, bilateral groin with wet-to-dry dressings in place, bilateral axilla without any draining lesions Results Laboratory Results: 10/16/17 04:35 10/16/17 10:20 10/16/17 10/16/17 04:35 10:20 WBC 21.8 H RBC 3.30 L Hgb 8.7 L Hct 26.3 L MCV 80 MCH 26.4 L MCHC 33.0 RDW 19.2 H Plt Count 1107 H* Creatinine 0.59 Est GFR ( Amer) > 60 Est GFR (Non-Af Amer) > 60 08/24/17 08/24/17 08/25/17 18:00 22:00 05:15 Creatine Kinase 140 117 82 CK-MB (CK-2) Troponin I NT-Pro-B Natriuret Pep 09/02/17 09/02/17 09/03/17 17:45 17:45 05:35 Creatine Kinase 50 L CK-MB (CK-2) 0.40 Troponin I 0.027 NT-Pro-B Natriuret Pep 4690 H Impressions: Thoracic Spine CT 08/26/17 08:00 IMPRESSION: No acute findings in the thoracic spine. Chest X-Ray 10/09/17 00:00 IMPRESSION: NO ACUTE RADIOGRAPHIC FINDING IN THE CHEST. Abdomen/Pelvis CT 10/09/17 13:59 IMPRESSION: NO SIGNIFICANT OR ACUTE FINDING IN THE ABDOMEN OR PELVIS ON CT SCAN WITH IV CONTRAST. SURGICAL CHANGES WITH PERIUMBILICAL COLOSTOMY AND PRIOR SPLENECTOMY. SMALL CORTICAL CYST IN THE LEFT KIDNEY. SOFT TISSUE DEFECT IN THE LEFT BUTTOCKS, INCOMPLETELY IMAGED. Assessment & Plan - Diagnosis (1) Hidradenitis suppurativa Is this a current diagnosis for this admission?: Yes Plan: Please see the next 2 problems for details. Has hidradenitis in multiple locations including axilla groin and sacrum. (2) Groin abscess Is this a current diagnosis for this admission?: Yes Plan: Recently I&D. Wet-to-dry dressings in place. No evidence of worsening per my exam. I have spoken with the surgeon about this and he will reevaluate today to see if her missing a deeper lesion. Recently groin culture grew E. coli Klebsiella pneumoniae and MRSA. I am adding doxycycline as the patient has been on vancomycin which may not be the best treatment for this organism. I have also changed the other coverage to cefepime from Zosyn secondary to FANNIE. (3) Abscess or cellulitis of perineum Is this a current diagnosis for this admission?: Yes Plan: Also over the sacrum. Secondary to hidradenitis. I spoke with the surgeon today who will take a closer look at the patient's sacrum and whole perineal area to see if there are deeper lesions that are undrained that could be causing the leukocytosis and the thrombocytosis. (4) Diabetic keto-acidosis Qualifiers: Diabetes mellitus type: type 1 Diabetes mellitus complication detail: with coma Qualified Code(s): E10.11 - Type 1 diabetes mellitus with ketoacidosis with coma Is this a current diagnosis for this admission?: Yes Plan: Present on admission, resolved, continue to treat diabetes unchanged today. (5) Severe protein-calorie malnutrition Is this a current diagnosis for this admission?: Yes Plan: We will continue with supplements. Will check pre-albumin today. (6) Acute and chronic respiratory failure Qualifiers: Respiratory failure complication: hypoxia Qualified Code(s): J96.21 - Acute and chronic respiratory failure with hypoxia Is this a current diagnosis for this admission?: Yes Plan: Present upon admission, multifactorial, resolved, patient off the vent and back to his normal respiratory status. (7) Crohns disease Qualifiers: Gastrointestinal tract location: unspecified location Is this a current diagnosis for this admission?: Yes Plan: Patient has an ostomy secondary to Crohn's we think that this could also be a diverting colostomy secondary to severe hidradenitis lesions. The ostomy is functioning well. (8) Hypotension Qualifiers: Hypotension type: other hypotension type Qualified Code(s): I95.89 - Other hypotension Is this a current diagnosis for this admission?: Yes Plan: Patient's blood pressure is not hypotensive today. We will continue to monitor. (9) Leukocytosis Qualifiers: Leukocytosis type: leukemoid reaction Qualified Code(s): D72.823 - Leukemoid reaction Is this a current diagnosis for this admission?: Yes Plan: Reactive and likely secondary to untreated hidradenitis lesion. Surgeon will further evaluate today to see if patient needs to be taken to the operating room for deeper debridement. (10) Pneumonia Qualifiers: Laterality: bilateral Lung location: unspecified part of lung Is this a current diagnosis for this admission?: Yes Plan: Resolved. (11) Hypoxic brain injury Is this a current diagnosis for this admission?: Yes Plan: Patient reports today that he has had decreased hearing and blurry vision which are improving. He thinks his mentation is getting close to normal as well. (12) Diabetic neuropathy Qualifiers: Diabetes mellitus type: type 1 Diabetes mellitus complication detail: diabetic polyneuropathy Qualified Code(s): E10.42 - Type 1 diabetes mellitus with diabetic polyneuropathy Is this a current diagnosis for this admission?: Yes Plan: He has severe leg pain. Recently he was seen by pain specialist who changed his Neurontin to Lyrica. He is also on long-standing opiates. Continue current care. (13) Diabetes mellitus Qualifiers: Diabetes mellitus type: type 1 Diabetes mellitus complication status: with unspecified complications Qualified Code(s): E10.8 - Type 1 diabetes mellitus with unspecified complications Is this a current diagnosis for this admission?: Yes Plan: CBGs well-controlled. Continue current care. (14) Chronic pain Qualifiers: Chronic pain type: chronic pain syndrome Qualified Code(s): G89.4 - Chronic pain syndrome Is this a current diagnosis for this admission?: Yes Plan: Continue his Lyrica, short acting oxycodone, long-acting oxycodone area and he has been seen by the pain specialist during this hospitalization. (15) Opioid dependence in controlled environment Is this a current diagnosis for this admission?: Yes Plan: No concerns for diversion or misuse at this time during the hospitalization. (16) Thrombocytosis Is this a current diagnosis for this admission?: Yes Plan: Likely reactive. Please see leukocytosis for plan above. Addition, the joint setter is consulting. His platelets are now over 1 million. We know that these patients can have bleeding events. We will await further recommendations, if any, from hematology. - Time Time Spent with patient: 25-34 minutes - Inpatient Certification Based on my medical assessment, after consideration of the patient's comorbidities, presenting symptoms, or acuity I expect that the services needed warrant INPATIENT care.: Yes I certify that my determination is in accordance with my understanding of Medicare's requirements for reasonable and necessary INPATIENT services [42 CFR 412.3e].: Yes Medical Necessity: Significant Comorbidiites Make Outpatient Treatment Too Risky , Need Close Monitoring Due to Risk of Patient Decompensation, Need for IV Antibiotics, Need for Surgery, Risk of Complication if Not Cared For in Hospital
[2017-10-16 13:54] LABS: ANION GAP 6 (5-19); BLOOD UREA NITROGEN 6 mg/dL (7-20); CALCIUM 11.6 mg/dL (8.4-10.2); CARBON DIOXIDE 35 mmol/L (22-30); CHLORIDE 98 mmol/L (98-107); GLUCOSE 131 mg/dL (75-110); POTASSIUM 3.7 mmol/L (3.6-5.0); SODIUM 139.1 mmol/L (137-145)
[2017-10-16 14:01] LABS: PREALBUMIN 7.7 mg/dL (17.6-36.0)
[2017-10-16] MEDS: TAMSULOSIN HCL 0.4 MG CAP.SR.24H PO SCH (21:03)
[2017-10-16] MEDS: DOXYCYCLINE HYCLATE 100 MG TABLET PO SCH (21:03)
[2017-10-16] MEDS: QUETIAPINE FUMARATE 25 MG TABLET PO SCH (21:04)
[2017-10-17] MEDS: CEFEPIME HCL 2 GM in DEXTROSE 5%-WATER 100 ML IV SCH ×3 (00:10→22:44)
[2017-10-17] MEDS: OXYCODONE HCL IR 5 MG TABLET PO PRN ×3 (00:47→20:07)
[2017-10-17] MEDS: VANCOMYCIN HCL 1,000 MG in DEXTROSE 5%-WATER 250 ML IV SCH ×3 (02:55→17:39)
[2017-10-17 04:43] LABS: HEMATOCRIT 26.2 % (37.9-51.0); HEMOGLOBIN 8.6 g/dL (13.5-17.0); MEAN CORPUSCULAR HEMOGLOBIN 26.1 pg (27.0-33.4); MEAN CORPUSCULAR VOLUME 79 fl (80-97); RED BLOOD COUNT 3.31 10^6/uL (4.35-5.55); RED CELL DISTRIBUTION WIDTH 18.8 % (11.5-14.0); WHITE BLOOD COUNT 20.4 10^3/uL (4.0-10.5)
[2017-10-17] MEDS: PREGABALIN 50 MG CAPSULE PO SCH ×3 (05:28→22:42)
[2017-10-17] MEDS: FENTANYL CITRATE INJ/PF 100 MCG/2 ML AMPUL IV PRN ×2 (05:29→15:49)
[2017-10-17 05:32] LABS: PLATELET COUNT 1058 10^3/uL (150-450)
[2017-10-17] MEDS: OXYCODONE HCL SR 10 MG TABLET PO SCH ×2 (09:24→22:42)
[2017-10-17] MEDS: ENOXAPARIN SODIUM INJ 40 MG/0.4 ML DISP.SYRIN SUBCUT SCH (09:24)
[2017-10-17] MEDS: OXYCODONE HCL SR 40 MG TABLET PO SCH ×2 (09:25→22:42)
[2017-10-17] MEDS: DULOXETINE HCL 30 MG CAPSULE.DR PO SCH ×2 (09:25→22:42)
[2017-10-17] MEDS: DOXYCYCLINE HYCLATE 100 MG TABLET PO SCH ×2 (09:26→22:42)
[2017-10-17] MEDS: FINASTERIDE 5 MG TABLET PO SCH (09:26)
[2017-10-17 14:39] LABS: HEPATITIS A AB IGM Negative (Negative); HEPATITIS B CORE AB IGM Negative (Negative); HEPATITS B SURFACE ANTIGEN Negative (Negative)
--- NOTE | 2017-10-17 15:25 | PROGRESS NOTE E ---
Progress Note NAME: TIA VILLANUEVA : 1965 AGE: 51Y DATE: 10/14/2017 ROOM: 308 SUBJECTIVE: The patient seems to be doing a little better with medication changes made yesterday, nothing significant, and still experiencing a lot of pain as would be expected. Discussed with the patient that change from Neurontin to Lyrica may take several days to notice any relief but seems to be doing well with the change from MS-Contin to OxyContin. OBJECTIVE: VITAL SIGNS: The vitals are stable. GENERAL: A well-developed, well-nourished male in no acute distress laying comfortably in bed. RESPIRATORY: Non-labored. NEUROLOGICAL: A and O x3. ASSESSMENT: 1. Chronic pain from multiple skin wounds, ulcerations. 2. MRSA. 3. Sepsis. PLAN: We will continue current pain medication regimen as is for now and continue to monitor and evaluate, may re-consult or request followup as needed. DICTATED FOR: Mo Carrasquillo MD, and Danya Arvizu MD DICTATING PHYSICIAN: CORINA LANG, GIOVANNA 1948M [id number] PHY#: [id number] ID: [id number] JOB#: [id number] ACCT: [id number] cc: > MTDD
[2017-10-17 15:37] LABS: IMMUNOGLOBULIN A 659 mg/dL (90-386); IMMUNOGLOBULIN G 2409 mg/dL (700-1600)
[2017-10-17] MEDS: ONDANSETRON 4 MG TAB.RAPDIS PO PRN (15:51)
--- NOTE | 2017-10-17 16:27 | PDOC CONSULTATION ---
Consultation Consult Date: 10/17/17 Consult reason:: Drainage History of Present Illness Admission Date/PCP: 08/24/17 16:51 DELROY CROUCH DO History of Present Illness: Please see patient's 2 month hospitalization record for entire details. Patient currently has a upper thoracic stage II decubitus, a lower lumbar stage IV decubitus being treated with a wound VAC, bilateral groin wounds being packed open with moist gauze, and a complex left issue wound packed open. Nurses noted increased drainage, and surgery was reconsulted. Past Medical History Cardiac Medical History: Reports: Myocardial Infarction - NOVEMBER 2014, Hypertension Denies: Coronary Artery Disease Pulmonary Medical History: Reports: Asthma, Pneumonia Denies: Bronchitis, Chronic Obstructive Pulmonary Disease (COPD) Neurological Medical History: Reports: Seizures Endocrine Medical History: Reports: Diabetes Mellitus Type 2 GI Medical History: Reports: Crohn's Disease Musculoskeltal Medical History: Reports: Arthritis Skin Medical History: Reports: Other - RECURRENT CELLULITIS & ABSCESS FORMATION IN PERINEAL, GENITAL, AND GLUTEAL Psychiatric Medical History: Reports: Depression Hematology: Reports: Anemia Past Surgical History Past Surgical History: Reports: Colostomy, Other - Multiple wound debridements over the last 2 months Social History Lives with: Alone Smoking Status: Unknown if Ever Smoked Frequency of Alcohol Use: None Hx Recreational Drug Use: No Hx Prescription Drug Abuse: No - Advance Directive Resuscitation Status: Full Code Family History Family History: Other - Crohn's-sister Parental Family History Reviewed: Yes Children Family History Reviewed: Yes Sibling(s) Family History Reviewed.: Yes Medication/Allergy Home Medications: Duloxetine HCl [Cymbalta] 60 mg PO Q12 08/24/17 Gabapentin [Neurontin 300 mg Capsule] 600 mg PO Q8 08/24/17 Insulin Aspart [Novolog Flexpen] 25 unit SQ Q12 08/24/17 Metformin HCl [Glucophage] 1,000 mg PO BIDACBS 08/24/17 Morphine Sulfate [Morphine Sulfate ER] 100 mg PO Q12 08/24/17 Naloxone HCl [Narcan] 1 spray NS ASDIR PRN 08/24/17 Ondansetron HCl [Zofran 8 mg Tablet] 8 mg PO Q8HP PRN 08/24/17 Oxycodone HCl [Oxy-Ir 5 mg Tablet] 20 mg PO Q4HP PRN 08/24/17 Prednisone [Deltasone 10 mg Tablet] 10 mg PO Q12 08/24/17 Allergies/Adverse Reactions: atropine sulfate [From Lomotil] Allergy (Verified 02/21/17 13:49) diphenoxylate HCl [From Lomotil] Allergy (Verified 02/21/17 13:49) erythromycin base [Erythromycin Base] Allergy (Verified 02/21/17 13:49) paroxetine HCl [From Paxil] Allergy (Verified 02/21/17 13:49) sulfamethoxazole [From Bactrim] Allergy (Verified 02/21/17 13:49) trimethoprim [From Bactrim] Allergy (Verified 02/21/17 13:49) Review of Systems ROS unobtainable: Other - Patient not receptive to an entire review of systems Musculoskeletal: PRESENT: other - Patient is very weak and has not been out of bed, refuses to participate w/ physical therapy Physical Exam Vital Signs: Temp Pulse Resp BP Pulse Ox 98.0 F 106 H 16 123/79 99 10/17/17 11:12 10/17/17 14:00 10/17/17 11:12 10/17/17 11:12 10/17/17 11:12 Intake & Output 10/16/17 10/17/17 10/18/17 06:59 06:59 06:59 Intake Total 1955 2950 150 Output Total 4050 3850 1625 Balance -7653 -570 -6907 Weight 53 kg 54.5 kg General appearance: PRESENT: no acute distress, other - Cachectic Head exam: PRESENT: normocephalic Eye exam: PRESENT: EOMI Mouth exam: PRESENT: dry mucosa Respiratory exam: PRESENT: clear to auscultation [place] Cardiovascular exam: PRESENT: RRR, other Neurological exam: PRESENT: alert, altered, awake, oriented to person, oriented to place Skin exam: PRESENT: other - Central upper back wound covered with reason dressing; wound VAC in position mid lumbar region with good suction Groin wound is granulating nicely with no tenderness or purulent discharge. The patient rolled on the right lateral decubitus position. The skin surrounding the left issue wound, in close proximity to the left groin wound is very thick indurated tender. The skin as well as open wounds on the left side are draining pus. Results Laboratory Results: 10/17/17 04:10 10/16/17 10:20 10/17/17 10/17/17 04:10 06:46 WBC 20.4 H RBC 3.31 L Hgb 8.6 L Hct 26.2 L MCV 79 L MCH 26.1 L MCHC 33.0 RDW 18.8 H Plt Count 1058 H* Ionized Calcium Buffy 1.55 H 08/24/17 08/24/17 08/25/17 18:00 22:00 05:15 Creatine Kinase 140 117 82 CK-MB (CK-2) Troponin I NT-Pro-B Natriuret Pep 09/02/17 09/02/17 09/03/17 17:45 17:45 05:35 Creatine Kinase 50 L CK-MB (CK-2) 0.40 Troponin I 0.027 NT-Pro-B Natriuret Pep 4690 H Impressions: Thoracic Spine CT 08/26/17 08:00 IMPRESSION: No acute findings in the thoracic spine. Chest X-Ray 10/09/17 00:00 IMPRESSION: NO ACUTE RADIOGRAPHIC FINDING IN THE CHEST. Abdomen/Pelvis CT 10/09/17 13:59 IMPRESSION: NO SIGNIFICANT OR ACUTE FINDING IN THE ABDOMEN OR PELVIS ON CT SCAN WITH IV CONTRAST. SURGICAL CHANGES WITH PERIUMBILICAL COLOSTOMY AND PRIOR SPLENECTOMY. SMALL CORTICAL CYST IN THE LEFT KIDNEY. SOFT TISSUE DEFECT IN THE LEFT BUTTOCKS, INCOMPLETELY IMAGED. Assessment & Plan - Diagnosis (1) Groin abscess Is this a current diagnosis for this admission?: Yes Plan: Patient with known, complex stage IV wounds with lumbar spine, and inguinal wounds granulating satisfactorily. However the left issue wound in communication with the deep portion of the left anal canal wound is draining pus ; there was a drain here some weeks back. Believe this may be a source of ongoing sepsis should be drained. Patient not interested in having this done today. Recommendations: 1. Plan the patient will benefit from having this area open back up, possible drain placement; we will set this up for tomorrow for Dr. Chin to perform the procedure. 2. We will keep him n.p.o. after midnight - Time Time Spent: 30 to 50 Minutes Smoking Cessation Education: over 10 minutes Anticipated discharge: SNF
--- NOTE | 2017-10-17 16:37 | PDOC PROGRESS REPORT ---
Subjective Progress Note for:: 10/17/17 Subjective:: Mr. Borges states that he is drowsy today. He thinks his pain is pretty well controlled, better than usual. No fever or chills as far as he can tell but his nurse states he had a low-grade fever earlier this morning. He is able to eat and drink without difficulty. His thinking is not confused per his report. No chest pain or difficulty breathing. Reason For Visit: DKA, SEPSIS Physical Exam Vital Signs: Temp Pulse Resp BP Pulse Ox 99.3 F 105 H 16 119/79 99 10/17/17 15:04 10/17/17 15:04 10/17/17 15:04 10/17/17 15:04 10/17/17 15:04 Intake & Output 10/16/17 10/17/17 10/18/17 06:59 06:59 06:59 Intake Total 1955 2950 150 Output Total 4050 3850 1625 Balance -1498 -900 -4526 Weight 53 kg 54.5 kg General appearance: PRESENT: no acute distress, cooperative, thin Head exam: PRESENT: atraumatic Eye exam: PRESENT: conjunctiva pink. ABSENT: scleral icterus Mouth exam: PRESENT: moist Neck exam: PRESENT: other - Central line in place over the left neck without complication Respiratory exam: PRESENT: decreased breath sounds, unlabored. ABSENT: rales, rhonchi, wheezes Cardiovascular exam: PRESENT: tachycardia. ABSENT: systolic murmur Pulses: PRESENT: normal radial pulses GI/Abdominal exam: PRESENT: normal bowel sounds, soft, other - ostomy with soft stool within bag. ABSENT: distended, tenderness Rectal exam: ABSENT: black stool, bloody stool Gentrourinary exam: PRESENT: indwelling catheter Extremities exam: ABSENT: pedal edema Neurological exam: PRESENT: alert, awake, oriented to person, oriented to place , oriented to situation Psychiatric exam: PRESENT: flat affect. ABSENT: anxious Skin exam: PRESENT: warm - Bilateral groin dressings in place. No evident extension of cellulitis. Results Laboratory Results: 10/17/17 04:10 10/16/17 10:20 10/17/17 10/17/17 04:10 06:46 WBC 20.4 H RBC 3.31 L Hgb 8.6 L Hct 26.2 L MCV 79 L MCH 26.1 L MCHC 33.0 RDW 18.8 H Plt Count 1058 H* Ionized Calcium Buffy 1.55 H 08/24/17 08/24/17 08/25/17 18:00 22:00 05:15 Creatine Kinase 140 117 82 CK-MB (CK-2) Troponin I NT-Pro-B Natriuret Pep 09/02/17 09/02/17 09/03/17 17:45 17:45 05:35 Creatine Kinase 50 L CK-MB (CK-2) 0.40 Troponin I 0.027 NT-Pro-B Natriuret Pep 4690 H Impressions: Thoracic Spine CT 08/26/17 08:00 IMPRESSION: No acute findings in the thoracic spine. Chest X-Ray 10/09/17 00:00 IMPRESSION: NO ACUTE RADIOGRAPHIC FINDING IN THE CHEST. Abdomen/Pelvis CT 10/09/17 13:59 IMPRESSION: NO SIGNIFICANT OR ACUTE FINDING IN THE ABDOMEN OR PELVIS ON CT SCAN WITH IV CONTRAST. SURGICAL CHANGES WITH PERIUMBILICAL COLOSTOMY AND PRIOR SPLENECTOMY. SMALL CORTICAL CYST IN THE LEFT KIDNEY. SOFT TISSUE DEFECT IN THE LEFT BUTTOCKS, INCOMPLETELY IMAGED. Assessment & Plan - Diagnosis (1) Hidradenitis suppurativa Is this a current diagnosis for this admission?: Yes Plan: Patient has been seen by general surgeon today. There was purulent drainage from 1 of his recently debrided sites. Patient will be made n.p.o. for possible OR debridement tomorrow. Please see surgeon's note. (2) Groin abscess Is this a current diagnosis for this admission?: Yes Plan: We will continue with dressing changes and will continue current antibiotic regimen based on culture results. (3) Abscess or cellulitis of perineum Is this a current diagnosis for this admission?: Yes Plan: Patient has wound VAC in place over the sacrum. Please see hidradenitis above. (4) Diabetic keto-acidosis Qualifiers: Qualified Code(s): E10.11 - Type 1 diabetes mellitus with ketoacidosis with coma Is this a current diagnosis for this admission?: Yes Plan: Resin on admission. Resolved. We will continue to treat diabetes with current regimen. (5) Severe protein-calorie malnutrition Is this a current diagnosis for this admission?: Yes Plan: Prealbumin pending. Continue supplements. (6) Acute and chronic respiratory failure Qualifiers: Qualified Code(s): J96.21 - Acute and chronic respiratory failure with hypoxia Is this a current diagnosis for this admission?: Yes Plan: Acute component resolved. Patient is stable from this perspective. He was admitted with acute respiratory failure and was intubated at the beginning of this hospitalization. (7) Crohns disease Is this a current diagnosis for this admission?: Yes Plan: Patient is stable from this perspective. (8) Hypotension Qualifiers: Qualified Code(s): I95.89 - Other hypotension Is this a current diagnosis for this admission?: Yes Plan: Stable. Continue current care. (9) Leukocytosis Qualifiers: Qualified Code(s): D72.823 - Leukemoid reaction Is this a current diagnosis for this admission?: Yes Plan: Possibly secondary to undrained fluid collections related to hidradenitis. We will continue to monitor. Expect leukocytosis to improve after purulent fluid drained. (10) Hypoxic brain injury Is this a current diagnosis for this admission?: Yes (11) Diabetic neuropathy Qualifiers: Qualified Code(s): E10.42 - Type 1 diabetes mellitus with diabetic polyneuropathy Is this a current diagnosis for this admission?: Yes Plan: Patient states his pain is pretty well controlled today. Continue his Lyrica. (12) Chronic pain Qualifiers: Qualified Code(s): G89.4 - Chronic pain syndrome Is this a current diagnosis for this admission?: Yes (13) Opioid dependence in controlled environment Is this a current diagnosis for this admission?: Yes Plan: Continue current pain medication regimen. Patient has been seen by the pain service. (14) Thrombocytosis Is this a current diagnosis for this admission?: Yes Plan: Probably reactive related to hidradenitis. We will continue to monitor and expect that thrombocytosis will improve with treatment of abscesses. - Time Time Spent with patient: 25-34 minutes Medications reviewed and adjusted accordingly: Yes - Inpatient Certification Based on my medical assessment, after consideration of the patient's comorbidities, presenting symptoms, or acuity I expect that the services needed warrant INPATIENT care.: Yes I certify that my determination is in accordance with my understanding of Medicare's requirements for reasonable and necessary INPATIENT services [42 CFR 412.3e].: Yes Medical Necessity: Need Close Monitoring Due to Risk of Patient Decompensation, Need for IV Antibiotics, Risk of Complication if Not Cared For in Hospital - I have collaborated with Dr. Rolon the general surgeon with the patient's nurse today.
[2017-10-17 17:56] LABS: HEMATOCRIT 27.4 % (37.9-51.0); HEMOGLOBIN 8.9 g/dL (13.5-17.0); MEAN CORPUSCULAR HEMOGLOBIN 25.8 pg (27.0-33.4); MEAN CORPUSCULAR HGB CONC 32.6 g/dL (32.0-36.0); MEAN CORPUSCULAR VOLUME 79 fl (80-97); RED BLOOD COUNT 3.46 10^6/uL (4.35-5.55); RED CELL DISTRIBUTION WIDTH 18.7 % (11.5-14.0); WHITE BLOOD COUNT 20.9 10^3/uL (4.0-10.5)
[2017-10-17 18:14] LABS: ANION GAP 10 (5-19); BLOOD UREA NITROGEN 6 mg/dL (7-20); CARBON DIOXIDE 34 mmol/L (22-30); CHLORIDE 97 mmol/L (98-107); GLUCOSE 120 mg/dL (75-110); POTASSIUM 3.7 mmol/L (3.6-5.0); SODIUM 140.9 mmol/L (137-145)
[2017-10-17 18:19] LABS: PLATELET COUNT 1071 10^3/uL (150-450)
[2017-10-17 18:26] LABS: CALCIUM 12.3 mg/dL (8.4-10.2)
[2017-10-17] MEDS ORDERED: NORMAL SALINE 1000 ML 1,000 ML IV PRN (20:26)
[2017-10-17] MEDS: QUETIAPINE FUMARATE 25 MG TABLET PO SCH (22:41)
[2017-10-17] MEDS: TAMSULOSIN HCL 0.4 MG CAP.SR.24H PO SCH (22:42)
[2017-10-18] MEDS: OXYCODONE HCL IR 5 MG TABLET PO PRN ×4 (00:04→23:43)
[2017-10-18] MEDS: INSULIN LISPRO 100 UNIT/ML 3 ML VIAL SUBCUT PRN (00:04)
[2017-10-18] MEDS: VANCOMYCIN HCL 1,000 MG in DEXTROSE 5%-WATER 250 ML IV SCH ×2 (02:00→09:50)
[2017-10-18] MEDS: NORMAL SALINE 1000 ML 1,000 ML IV PRN ×3 (02:06→23:40)
[2017-10-18] MEDS: FENTANYL CITRATE INJ/PF 100 MCG/2 ML AMPUL IV PRN ×2 (04:43→17:30)
[2017-10-18] MEDS: PREGABALIN 50 MG CAPSULE PO SCH ×3 (05:43→21:27)
[2017-10-18 07:17] LABS: HEPATITIS C VIRUS ANTIBODY 0.1 s/co ratio (0.0-0.9)
[2017-10-18 07:18] LABS: IMMUNOGLOBULIN M 43 mg/dL (20-172)
--- NOTE | 2017-10-18 08:14 | PDOC PROGRESS REPORT ---
Subjective Progress Note for:: 10/18/17 Subjective:: Patient wants to eat and drink, but is NPO for procedure today. No other complaints. Reason For Visit: DKA, SEPSIS Physical Exam Vital Signs: Temp Pulse Resp BP Pulse Ox 99.2 F 96 16 132/81 H 100 10/18/17 07:27 10/18/17 07:27 10/18/17 07:27 10/18/17 07:27 10/18/17 07:27 Intake & Output 10/17/17 10/18/17 10/19/17 06:59 06:59 06:59 Intake Total 2950 5023 Output Total 3850 4826 Balance -900 197 Weight 54.5 kg 55.8 kg General appearance: PRESENT: no acute distress Head exam: PRESENT: normocephalic Mouth exam: PRESENT: moist Neurological exam: PRESENT: alert, awake Psychiatric exam: PRESENT: appropriate affect Skin exam: PRESENT: normal color Results Laboratory Results: 10/17/17 17:43 10/17/17 17:43 10/17/17 10/17/17 10/18/17 17:43 17:43 05:15 WBC 20.9 H RBC 3.46 L Hgb 8.9 L Hct 27.4 L MCV 79 L MCH 25.8 L MCHC 32.6 RDW 18.7 H Plt Count 1071 H* Sodium 140.9 Potassium 3.7 Chloride 97 L Carbon Dioxide 34 H Anion Gap 10 BUN 6 L Creatinine 0.63 Est GFR ( Amer) > 60 Est GFR (Non-Af Amer) > 60 Glucose 120 H Calcium 12.3 H* 11.8 H PTH Intact 10/18/17 05:15 WBC RBC Hgb Hct MCV MCH MCHC RDW Plt Count Sodium Potassium Chloride Carbon Dioxide Anion Gap BUN Creatinine Est GFR ( Amer) Est GFR (Non-Af Amer) Glucose Calcium PTH Intact 10.2 08/24/17 08/24/17 08/25/17 18:00 22:00 05:15 Creatine Kinase 140 117 82 CK-MB (CK-2) Troponin I NT-Pro-B Natriuret Pep 09/02/17 09/02/17 09/03/17 17:45 17:45 05:35 Creatine Kinase 50 L CK-MB (CK-2) 0.40 Troponin I 0.027 NT-Pro-B Natriuret Pep 4690 H Impressions: Thoracic Spine CT 08/26/17 08:00 IMPRESSION: No acute findings in the thoracic spine. Chest X-Ray 10/09/17 00:00 IMPRESSION: NO ACUTE RADIOGRAPHIC FINDING IN THE CHEST. Abdomen/Pelvis CT 10/09/17 13:59 IMPRESSION: NO SIGNIFICANT OR ACUTE FINDING IN THE ABDOMEN OR PELVIS ON CT SCAN WITH IV CONTRAST. SURGICAL CHANGES WITH PERIUMBILICAL COLOSTOMY AND PRIOR SPLENECTOMY. SMALL CORTICAL CYST IN THE LEFT KIDNEY. SOFT TISSUE DEFECT IN THE LEFT BUTTOCKS, INCOMPLETELY IMAGED. Assessment & Plan - Diagnosis (1) Anemia, chronic disease Is this a current diagnosis for this admission?: Yes Plan: Currently stable. No indication for blood transfusion currently. (2) Leukocytosis Qualifiers: Leukocytosis type: leukemoid reaction Qualified Code(s): D72.823 - Leukemoid reaction Is this a current diagnosis for this admission?: Yes Plan: This is reactive as Flow cytometry was negative for Clonal cell line. (3) Thrombocytosis Is this a current diagnosis for this admission?: Yes Plan: This has also been shown to be reactive. He continue anticoagulation, so I would not add aspirin, but consider aspirin if blood thinners are stopped. (4) Abscess or cellulitis of perineum Is this a current diagnosis for this admission?: Yes Plan: I have checked immunoglobulin levels as well as HIV screen. These have been negative. I do not see an immunologic deficiency that is contributing to his recurrent infections. However, I do expect hisblood cell abnormalities to improve with improvement of his infections. - Plan Summary Plan Summary: Will again sign off. Please call again if needed.
[2017-10-18] MEDS: OXYCODONE HCL SR 40 MG TABLET PO SCH ×2 (11:18→21:27)
[2017-10-18] MEDS: OXYCODONE HCL SR 10 MG TABLET PO SCH ×2 (11:18→21:28)
[2017-10-18] MEDS: DOXYCYCLINE HYCLATE 100 MG TABLET PO SCH ×2 (11:19→21:29)
[2017-10-18] MEDS: FINASTERIDE 5 MG TABLET PO SCH (11:19)
[2017-10-18] MEDS: DULOXETINE HCL 30 MG CAPSULE.DR PO SCH ×2 (11:19→21:29)
[2017-10-18] MEDS: CEFEPIME HCL 2 GM in DEXTROSE 5%-WATER 100 ML IV SCH ×2 (12:15→23:41)
--- NOTE | 2017-10-18 13:05 | RADIOLOGY REPORT (SQ) ---
EXAM DESCRIPTION: PICC INSERTION; U/S GUIDE FOR VASCULAR ACCESS; FLUORO/CV PLACEMENT COMPLETED DATE/TIME: 10/18/2017 12:55 pm; 10/18/2017 12:56 pm REASON FOR STUDY: Need IV access; IV ACCESS COMPARISON: AP chest 10/09/2017 FLUOROSCOPY TIME: 9 seconds 1 digital chest radiographic image and 1 ultrasound images saved to PACS. TECHNIQUE: Fluoroscopic and ultrasound guided PICC placement. LIMITATIONS: None. PROCEDURE: After written consent and assessment were obtained, the patient was brought into the fluo roscopy room and place supine on the table. Ultrasound was used on the patient's right arm for PICC access. The right arm was prepped and draped in a sterile fashion along with the ultrasound probe. Th e entry site was anesthetized with 3 mL of 1% lidocaine. A 21 gauge 7 cm needle was advanced through the skin and into the basilic vein under live ultrasound guidance. An ultrasound image was saved to PACS confirming access site. A .018 guide wire was then inserted through the needle and into the naomi ous system. The needle was the removed and an 11 blade scalpel was used to make a 1cm skin incision. A 5 fr peel-away sheath was advanced over the wire and into the venous system. A measurement was the n made using the existing wire and live fluoroscopic guidance. The wire was then removed and the trim med. The PICC was advanced through the peel-away sheath and into the venous system. The peel-away she ath was removed and the catheter was adhered to the patients arm with a stat lock. The catheter was t hen aspirated and flushed and a sterile bandage was placed over the access site. A fluoroscopic spot image was saved to PACS confirming the catheter tip within the superior vena cava. IMPRESSION: SUCCESSFUL PLACEMENT OF A 5 FR DUAL LUMEN 24 CM PICC IN THE RIGHT BASILIC VEIN. COMMENT: Patient medication list reviewed: Yes- Quality ID# [id number]:Eligible professional attests to doc umenting in the medical record they obtained, updated, or reviewed the patient's current medications. . Quality ID 145: Final reports for procedures using fluoroscopy that document radiation exposure gwen adina, or exposure time and number of fluorographic images (if radiation exposure indices are not avail able) Quality ID #76: The patient was prepped and draped using maximum sterile barrier technique including cap, mask, sterile gown, sterile gloves, a large sterile sheet, hand hygiene, and 2% Chlorhexidine fo r cutaneous antisepsis. When ultrasound is used, sterile ultrasound techniques are followed requiring sterile gel and sterile probes. TECHNICAL DOCUMENTATION: JOB ID: [id number] [employer]- All Rights Reserved Reading location - IP/workstation name: [facility]
--- NOTE | 2017-10-18 13:05 | RADIOLOGY REPORT (SQ) ---
EXAM DESCRIPTION: PICC INSERTION; U/S GUIDE FOR VASCULAR ACCESS; FLUORO/CV PLACEMENT COMPLETED DATE/TIME: 10/18/2017 12:55 pm; 10/18/2017 12:56 pm REASON FOR STUDY: Need IV access; IV ACCESS COMPARISON: AP chest 10/09/2017 FLUOROSCOPY TIME: 9 seconds 1 digital chest radiographic image and 1 ultrasound images saved to PACS. TECHNIQUE: Fluoroscopic and ultrasound guided PICC placement. LIMITATIONS: None. PROCEDURE: After written consent and assessment were obtained, the patient was brought into the fluo roscopy room and place supine on the table. Ultrasound was used on the patient's right arm for PICC access. The right arm was prepped and draped in a sterile fashion along with the ultrasound probe. Th e entry site was anesthetized with 3 mL of 1% lidocaine. A 21 gauge 7 cm needle was advanced through the skin and into the basilic vein under live ultrasound guidance. An ultrasound image was saved to PACS confirming access site. A .018 guide wire was then inserted through the needle and into the naomi ous system. The needle was the removed and an 11 blade scalpel was used to make a 1cm skin incision. A 5 fr peel-away sheath was advanced over the wire and into the venous system. A measurement was the n made using the existing wire and live fluoroscopic guidance. The wire was then removed and the trim med. The PICC was advanced through the peel-away sheath and into the venous system. The peel-away she ath was removed and the catheter was adhered to the patients arm with a stat lock. The catheter was t hen aspirated and flushed and a sterile bandage was placed over the access site. A fluoroscopic spot image was saved to PACS confirming the catheter tip within the superior vena cava. IMPRESSION: SUCCESSFUL PLACEMENT OF A 5 FR DUAL LUMEN 24 CM PICC IN THE RIGHT BASILIC VEIN. COMMENT: Patient medication list reviewed: Yes- Quality ID# 130:Eligible professional attests to doc umenting in the medical record they obtained, updated, or reviewed the patient's current medications. . Quality ID 145: Final reports for procedures using fluoroscopy that document radiation exposure gwen adina, or exposure time and number of fluorographic images (if radiation exposure indices are not avail able) Quality ID #76: The patient was prepped and draped using maximum sterile barrier technique including cap, mask, sterile gown, sterile gloves, a large sterile sheet, hand hygiene, and 2% Chlorhexidine fo r cutaneous antisepsis. When ultrasound is used, sterile ultrasound techniques are followed requiring sterile gel and sterile probes. TECHNICAL DOCUMENTATION: JOB ID: [id number]- All Rights Reserved Reading location - IP/workstation name: [facility]
[2017-10-18] MEDS ORDERED: NORMAL SALINE 10 ML SDV (AFTER EACH USE) IV PRN (13:37)
[2017-10-18] MEDS: ENOXAPARIN SODIUM INJ 40 MG/0.4 ML DISP.SYRIN SUBCUT SCH (13:49)
--- NOTE | 2017-10-18 16:14 | PDOC PROGRESS REPORT ---
Subjective Progress Note for:: 10/18/17 Subjective:: The patient is an unfortunate 51-year-old -[place] male who presented to the emergency room with sepsis and diabetic ketoacidosis. He has a history of severe perineal hidradenitis. At the time of admission he had a large groin abscess in the left groin, perineum and left posterior upper thigh. On 2017 he was emergently taken to surgery for drainage of this chronic abscess. His respiratory status declined after the procedure and he was transferred to the ICU where he was intubated. On 08/25/2017 the patient was taken back to the operating room to undergo additional debridement. Since admission the patient has developed a sacral decubitus ulcer. He underwent debridement of the sacral ulcer on September 24, 2017. This was done at the bedside by general surgery. He has had persistent, marketed leukocytosis and has been seen by hematology. Ultimately it was felt that his leukocytosis was possibly reactive and hematology signed off. The patient has was initially found to have positive blood cultures in 1 out of 2 bottles that possibly were contaminants. Also he has had multiple wound cultures as well as sputum cultures that were positive for multiple organisms. Infectious disease has been following his case and on the recommendation was to stop all antibiotics in spite of his persistent leukocytosis. The recommendation was to start back on antibiotic therapy if he should develop a fever or other signs of infection. Unfortunately he did require further antibiotic therapy. At this point he is getting ready to go back to the operating room tomorrow morning for further debridement of his wound. When I saw the patient today is resting comfortably in the bed. He has no complaints overnight and states that he is feeling fairly well. He is going to have a PICC line placed today and his central line will be removed. He is in agreement with this. Reason For Visit: DKA, SEPSIS Physical Exam Vital Signs: Temp Pulse Resp BP Pulse Ox 98.9 F 107 H 16 132/86 H 99 10/18/17 11:22 10/18/17 14:00 10/18/17 11:22 10/18/17 11:22 10/18/17 11:22 Intake & Output 10/17/17 10/18/17 10/19/17 06:59 06:59 06:59 Intake Total 2950 5023 0 Output Total 3850 4826 675 Balance -900 197 -675 Weight 54.5 kg 55.8 kg General appearance: PRESENT: disheveled, thin, other - Chronically ill-appearing Head exam: PRESENT: atraumatic, normocephalic Mouth exam: PRESENT: moist, tongue midline Respiratory exam: PRESENT: clear to auscultation daija, other - He he is diminished in the lower bases bilaterally. ABSENT: rales, rhonchi, wheezes Cardiovascular exam: PRESENT: RRR. ABSENT: diastolic murmur, rubs, systolic murmur GI/Abdominal exam: PRESENT: soft. ABSENT: tenderness Rectal exam: PRESENT: deferred Extremities exam: PRESENT: full ROM. ABSENT: calf tenderness, clubbing, pedal edema Neurological exam: PRESENT: alert, awake, oriented to person, oriented to place , oriented to time, oriented to situation, CN II-XII grossly intact. ABSENT: motor sensory deficit Psychiatric exam: PRESENT: appropriate affect, normal mood. ABSENT: homicidal ideation, suicidal ideation Skin exam: PRESENT: other - He has a stage IV decubitus ulcer with a wound VAC in place. Results Laboratory Results: 10/17/17 17:43 10/17/17 17:43 10/17/17 10/17/17 10/18/17 17:43 17:43 05:15 WBC 20.9 H RBC 3.46 L Hgb 8.9 L Hct 27.4 L MCV 79 L MCH 25.8 L MCHC 32.6 RDW 18.7 H Plt Count 1071 H* Sodium 140.9 Potassium 3.7 Chloride 97 L Carbon Dioxide 34 H Anion Gap 10 BUN 6 L Creatinine 0.63 Est GFR ( Amer) > 60 Est GFR (Non-Af Amer) > 60 Glucose 120 H Calcium 12.3 H* 11.8 H PTH Intact 10/18/17 05:15 WBC RBC Hgb Hct MCV MCH MCHC RDW Plt Count Sodium Potassium Chloride Carbon Dioxide Anion Gap BUN Creatinine Est GFR ( Amer) Est GFR (Non-Af Amer) Glucose Calcium PTH Intact 10.2 08/24/17 08/24/17 08/25/17 18:00 22:00 05:15 Creatine Kinase 140 117 82 CK-MB (CK-2) Troponin I NT-Pro-B Natriuret Pep 09/02/17 09/02/17 09/03/17 17:45 17:45 05:35 Creatine Kinase 50 L CK-MB (CK-2) 0.40 Troponin I 0.027 NT-Pro-B Natriuret Pep 4690 H Impressions: Thoracic Spine CT 08/26/17 08:00 IMPRESSION: No acute findings in the thoracic spine. Chest X-Ray 10/09/17 00:00 IMPRESSION: NO ACUTE RADIOGRAPHIC FINDING IN THE CHEST. Abdomen/Pelvis CT 10/09/17 13:59 IMPRESSION: NO SIGNIFICANT OR ACUTE FINDING IN THE ABDOMEN OR PELVIS ON CT SCAN WITH IV CONTRAST. SURGICAL CHANGES WITH PERIUMBILICAL COLOSTOMY AND PRIOR SPLENECTOMY. SMALL CORTICAL CYST IN THE LEFT KIDNEY. SOFT TISSUE DEFECT IN THE LEFT BUTTOCKS, INCOMPLETELY IMAGED. Guidance Fluoroscopy 10/18/17 00:00 IMPRESSION: SUCCESSFUL PLACEMENT OF A 5 FR DUAL LUMEN 24 CM PICC IN THE RIGHT BASILIC VEIN. Interventional Vascular Procedure 10/18/17 00:00 IMPRESSION: SUCCESSFUL PLACEMENT OF A 5 FR DUAL LUMEN 24 CM PICC IN THE RIGHT BASILIC VEIN. PICC Line Insertion 10/18/17 00:00 IMPRESSION: SUCCESSFUL PLACEMENT OF A 5 FR DUAL LUMEN 24 CM PICC IN THE RIGHT BASILIC VEIN. Assessment & Plan - Diagnosis (1) Septic shock Is this a current diagnosis for this admission?: Yes Plan: Resolved. Secondary to abscess/cellulitis of the perineum as well as pneumonia. The patient has developed a septic picture twice during this hospitalization. He continues to have persistent leukocytosis and reactive thrombocytosis but overall his septic picture has resolved. He is no longer running fevers. (2) Acute respiratory failure with hypoxia Is this a current diagnosis for this admission?: Yes (3) Abscess or cellulitis of perineum Is this a current diagnosis for this admission?: Yes Plan: He is going back to the operating room tomorrow for further debridement. Continue vancomycin (4) Sacral decubitus ulcer, stage III Is this a current diagnosis for this admission?: Yes Plan: He has a wound VAC in place. He is going back to the operating room tomorrow for debridement. (5) Pneumonia Qualifiers: Laterality: bilateral Lung location: unspecified part of lung Is this a current diagnosis for this admission?: Yes Plan: The patient likely had a MRSA pneumonia based on his sputum cultures. Resolved. (6) Diabetic keto-acidosis Qualifiers: Diabetes mellitus type: type 1 Diabetes mellitus complication detail: with coma Qualified Code(s): E10.11 - Type 1 diabetes mellitus with ketoacidosis with coma Is this a current diagnosis for this admission?: Yes Plan: Resolved (7) Hypoxic brain injury Is this a current diagnosis for this admission?: Yes Plan: Improved (8) Hypokalemia Is this a current diagnosis for this admission?: Yes Plan: Resolved (9) Hypomagnesemia Is this a current diagnosis for this admission?: Yes Plan: Resolved (10) Hypercalcemia Is this a current diagnosis for this admission?: Yes Plan: His level has worsened. I am going to get an ionized calcium in the morning. Further labs are pending. He has been receiving IV fluids. (11) Crohns disease Qualifiers: Gastrointestinal tract location: unspecified location Is this a current diagnosis for this admission?: Yes Plan: Appears to be stable at this point. (12) Diabetes mellitus Qualifiers: Diabetes mellitus type: type 1 Diabetes mellitus complication status: with unspecified complications Qualified Code(s): E10.8 - Type 1 diabetes mellitus with unspecified complications Is this a current diagnosis for this admission?: Yes Plan: Stable on current regimen (13) Chronic prescription opiate use Is this a current diagnosis for this admission?: Yes Plan: He will continue his current regimen here in the hospital. He has IV Dilaudid available for acute pain. (14) Chronic pain Qualifiers: Chronic pain type: chronic pain syndrome Qualified Code(s): G89.4 - Chronic pain syndrome Is this a current diagnosis for this admission?: Yes Plan: Chronic pain with continuous narcotic use. As above (15) Diabetic neuropathy Qualifiers: Diabetes mellitus type: type 1 Diabetes mellitus complication detail: diabetic polyneuropathy Qualified Code(s): E10.42 - Type 1 diabetes mellitus with diabetic polyneuropathy Is this a current diagnosis for this admission?: Yes Plan: He does complain of some burning pain in his lower extremities today. He is on high-dose gabapentin already. We will see how he does over the next day or 2. (16) Hematuria Qualifiers: Hematuria type: asymptomatic microscopic Qualified Code(s): R31.21 - Asymptomatic microscopic hematuria Is this a current diagnosis for this admission?: Yes Plan: Resolved. Likely due to traumatic Landry catheter insertion. (17) Hypernatremia Is this a current diagnosis for this admission?: Yes Plan: Resolved (18) Severe protein-calorie malnutrition Is this a current diagnosis for this admission?: Yes Plan: Continue to encourage good p.o. intake and supplements. (19) Hidradenitis Is this a current diagnosis for this admission?: Yes Plan: General surgery is coming back to evaluate. (20) Leukocytosis Qualifiers: Leukocytosis type: leukemoid reaction Qualified Code(s): D72.823 - Leukemoid reaction Is this a current diagnosis for this admission?: Yes Plan: He continues to have persistent leukocytosis. His infection seems to be under control. This is likely reactive (21) Reactive thrombocytosis Is this a current diagnosis for this admission?: Yes Plan: The patient's level continues to rise. Continue to monitor. - Time Time Spent with patient: 25-34 minutes - Inpatient Certification Medical Necessity: Other - Inpatient hospitalization remains necessary. The patient has multiple issues going on. He is worsening hypercalcemia. He is requiring parenteral fluids. He is going to the operating room tomorrow for further surgical debridement. Timing of disposition will be determined by his clinical course
[2017-10-18] MEDS: TAMSULOSIN HCL 0.4 MG CAP.SR.24H PO SCH (21:29)
[2017-10-18] MEDS: QUETIAPINE FUMARATE 25 MG TABLET PO SCH (21:29)
[2017-10-18] MEDS: NORMAL SALINE 10 ML SDV (SCHEDULED) IV SCH (21:30)
[2017-10-19 05:53] LABS: ABSOLUTE BASOPHILS # (AUTO) 0.2 10^3/uL (0.0-0.2); ABSOLUTE EOSINOPHILS # (AUTO) 1.2 10^3/uL (0.0-0.6); ABSOLUTE LYMPHOCYTES (AUTO) 4.1 10^3/uL (0.5-4.7); ABSOLUTE MONOCYTES (AUTO) 1.7 10^3/uL (0.1-1.4); ABSOLUTE NEUT (AUTO) 9.2 10^3/uL (1.7-8.2); BASOPHILS % (AUTO) 1.2 % (0-2); EOSINOPHILS % (AUTO) 7.3 % (0-6); HEMATOCRIT 22.7 % (37.9-51.0); MEAN CORPUSCULAR HEMOGLOBIN 25.7 pg (27.0-33.4); MEAN CORPUSCULAR HGB CONC 32.2 g/dL (32.0-36.0); MEAN CORPUSCULAR VOLUME 80 fl (80-97); MONOCYTES % (AUTO) 10.4 % (3-13); PLATELET COUNT 851 10^3/uL (150-450); RED BLOOD COUNT 2.85 10^6/uL (4.35-5.55); RED CELL DISTRIBUTION WIDTH 18.9 % (11.5-14.0); SEGMENTED NEUTROPHILS % (AUTO) 56.1 % (42-78); TOTAL CELLS COUNTED % (AUTO) 100 %; WHITE BLOOD COUNT 16.4 10^3/uL (4.0-10.5)
[2017-10-19] MEDS: FENTANYL CITRATE INJ/PF 100 MCG/2 ML AMPUL IV PRN (05:56)
[2017-10-19] MEDS: PREGABALIN 50 MG CAPSULE PO SCH ×3 (05:56→21:11)
[2017-10-19 06:09] LABS: HEMOGLOBIN 7.3 g/dL (13.5-17.0)
[2017-10-19 06:25] LABS: ANION GAP 9 (5-19); BLOOD UREA NITROGEN 5 mg/dL (7-20); CALCIUM 10.2 mg/dL (8.4-10.2); CARBON DIOXIDE 27 mmol/L (22-30); CHLORIDE 106 mmol/L (98-107); GLUCOSE 108 mg/dL (75-110); SODIUM 141.7 mmol/L (137-145)
[2017-10-19 06:48] LABS: ALANINE AMINOTRANSFERASE 24 U/L (21-72); ALBUMIN 2.3 g/dL (3.5-5.0); ALKALINE PHOSPHATASE 203 U/L (38-126); ASPARTATE AMINO TRANSFERASE 14 U/L (17-59); TOTAL PROTEIN 5.8 g/dL (6.3-8.2)
[2017-10-19 07:10] LABS: BILIRUBIN,TOTAL < 0.1 mg/dL (0.2-1.3)
[2017-10-19] MEDS: OXYCODONE HCL IR 5 MG TABLET PO PRN (07:18)
[2017-10-19 08:14] LABS: HEMATOCRIT 23.6 % (37.9-51.0); MEAN CORPUSCULAR HEMOGLOBIN 26.1 pg (27.0-33.4); MEAN CORPUSCULAR HGB CONC 32.7 g/dL (32.0-36.0); MEAN CORPUSCULAR VOLUME 80 fl (80-97); PLATELET COUNT 899 10^3/uL (150-450); RED BLOOD COUNT 2.96 10^6/uL (4.35-5.55); WHITE BLOOD COUNT 17.1 10^3/uL (4.0-10.5)
[2017-10-19 08:16] LABS: HEMOGLOBIN 7.7 g/dL (13.5-17.0)
[2017-10-19] MEDS ORDERED: POTASSIUM CHLORIDE 10 MEQ TABLET.SA PO ONE (08:30)
[2017-10-19] MEDS: ENOXAPARIN SODIUM INJ 40 MG/0.4 ML DISP.SYRIN SUBCUT SCH (10:42)
[2017-10-19] MEDS: FINASTERIDE 5 MG TABLET PO SCH (10:45)
[2017-10-19] MEDS: DOXYCYCLINE HYCLATE 100 MG TABLET PO SCH (10:45)
[2017-10-19] MEDS: DULOXETINE HCL 30 MG CAPSULE.DR PO SCH ×2 (10:45→21:11)
[2017-10-19] MEDS: OXYCODONE HCL SR 40 MG TABLET PO SCH ×2 (10:46→21:12)
[2017-10-19] MEDS: NORMAL SALINE 10 ML SDV (SCHEDULED) IV SCH ×2 (10:48→21:13)
[2017-10-19] MEDS: OXYCODONE HCL SR 10 MG TABLET PO SCH ×2 (10:48→21:12)
[2017-10-19] MEDS: CEFEPIME HCL 2 GM in DEXTROSE 5%-WATER 100 ML IV SCH (11:12)
--- NOTE | 2017-10-19 12:15 | PDOC PROGRESS REPORT ---
Subjective Progress Note for:: 10/19/17 Subjective:: The patient is an unfortunate 51-year-old -[place]ian male who presented to the emergency room with sepsis and diabetic ketoacidosis. He has a history of severe perineal hidradenitis. At the time of admission he had a large groin abscess in the left groin, perineum and left posterior upper thigh. On 2017 he was emergently taken to surgery for drainage of this chronic abscess. His respiratory status declined after the procedure and he was transferred to the ICU where he was intubated. On 08/25/2017 the patient was taken back to the operating room to undergo additional debridement. Since admission the patient has developed a sacral decubitus ulcer. He underwent debridement of the sacral ulcer on September 24, 2017. This was done at the bedside by general surgery. He has had persistent, marketed leukocytosis and has been seen by hematology. Ultimately it was felt that his leukocytosis was possibly reactive and hematology signed off. The patient has was initially found to have positive blood cultures in 1 out of 2 bottles that possibly were contaminants. Also he has had multiple wound cultures as well as sputum cultures that were positive for multiple organisms. Infectious disease has been following his case and on the recommendation was to stop all antibiotics in spite of his persistent leukocytosis. The recommendation was to start back on antibiotic therapy if he should develop a fever or other signs of infection. Unfortunately he did require further antibiotic therapy. At this point he is getting ready to go back to the operating room today for further debridement of his wound. When I saw the patient today is resting comfortably in the bed. He has no complaints overnight and states that he is feeling fairly well. He states his mouth is quite dry. Reason For Visit: DKA, SEPSIS Physical Exam Vital Signs: Temp Pulse Resp BP Pulse Ox 98.9 F 94 10 L 133/79 H 98 10/19/17 07:52 10/19/17 07:52 10/19/17 07:52 10/19/17 07:52 10/19/17 07:52 Intake & Output 10/18/17 10/19/17 10/20/17 06:59 06:59 06:59 Intake Total 502 3403 Output Total 1522 1283 Balance 197 -622 Weight 55.8 kg 56.9 kg General appearance: PRESENT: no acute distress, thin, other - Chronically ill- appearing Head exam: PRESENT: atraumatic, normocephalic Mouth exam: PRESENT: moist, tongue midline Respiratory exam: PRESENT: clear to auscultation daija. ABSENT: rales, rhonchi, wheezes Cardiovascular exam: PRESENT: RRR. ABSENT: diastolic murmur, rubs, systolic murmur GI/Abdominal exam: PRESENT: normal bowel sounds, soft. ABSENT: distended, guarding, mass, organolmegaly, rebound, tenderness Rectal exam: PRESENT: deferred Extremities exam: ABSENT: calf tenderness, clubbing, pedal edema Musculoskeletal exam: ABSENT: ambulatory Neurological exam: PRESENT: alert, awake, oriented to person, oriented to place , oriented to time, oriented to situation, CN II-XII grossly intact. ABSENT: motor sensory deficit Psychiatric exam: PRESENT: appropriate affect, normal mood. ABSENT: homicidal ideation, suicidal ideation Skin exam: PRESENT: other - He has multiple wounds. Wound VAC in place to sacral decubitus ulcer. He has waffle boots on his feet. These wounds were not examined. Results Laboratory Results: 10/19/17 07:59 10/19/17 05:30 10/19/17 10/19/17 10/19/17 05:30 05:30 05:30 WBC 16.4 H RBC 2.85 L Hgb 7.3 L Hct 22.7 L MCV 80 MCH 25.7 L MCHC 32.2 RDW 18.9 H Plt Count 851 H Seg Neutrophils % 56.1 Lymphocytes % 25.0 Monocytes % 10.4 Eosinophils % 7.3 H Basophils % 1.2 Absolute Neutrophils 9.2 H Absolute Lymphocytes 4.1 Absolute Monocytes 1.7 H Absolute Eosinophils 1.2 H Absolute Basophils 0.2 Sodium 141.7 Potassium 3.0 L* Chloride 106 Carbon Dioxide 27 Anion Gap 9 BUN 5 L Creatinine 0.67 Est GFR ( Amer) > 60 Est GFR (Non-Af Amer) > 60 Glucose 108 Calcium 10.2 Ionized Calcium Buffy Magnesium 1.4 L Total Bilirubin < 0.1 L AST 14 L ALT 24 Alkaline Phosphatase 203 H Total Protein 5.8 L Albumin 2.3 L 10/19/17 10/19/17 06:55 07:59 WBC 17.1 H RBC 2.96 L Hgb 7.7 L Hct 23.6 L MCV 80 MCH 26.1 L MCHC 32.7 RDW 19.0 H Plt Count 899 H Seg Neutrophils % Lymphocytes % Monocytes % Eosinophils % Basophils % Absolute Neutrophils Absolute Lymphocytes Absolute Monocytes Absolute Eosinophils Absolute Basophils Sodium Potassium Chloride Carbon Dioxide Anion Gap BUN Creatinine Est GFR ( Amer) Est GFR (Non-Af Amer) Glucose Calcium Ionized Calcium Buffy 1.46 H Magnesium Total Bilirubin AST ALT Alkaline Phosphatase Total Protein Albumin 08/24/17 08/24/17 08/25/17 18:00 22:00 05:15 Creatine Kinase 140 117 82 CK-MB (CK-2) Troponin I NT-Pro-B Natriuret Pep 09/02/17 09/02/17 09/03/17 17:45 17:45 05:35 Creatine Kinase 50 L CK-MB (CK-2) 0.40 Troponin I 0.027 NT-Pro-B Natriuret Pep 4690 H Impressions: Thoracic Spine CT 08/26/17 08:00 IMPRESSION: No acute findings in the thoracic spine. Chest X-Ray 10/09/17 00:00 IMPRESSION: NO ACUTE RADIOGRAPHIC FINDING IN THE CHEST. Abdomen/Pelvis CT 10/09/17 13:59 IMPRESSION: NO SIGNIFICANT OR ACUTE FINDING IN THE ABDOMEN OR PELVIS ON CT SCAN WITH IV CONTRAST. SURGICAL CHANGES WITH PERIUMBILICAL COLOSTOMY AND PRIOR SPLENECTOMY. SMALL CORTICAL CYST IN THE LEFT KIDNEY. SOFT TISSUE DEFECT IN THE LEFT BUTTOCKS, INCOMPLETELY IMAGED. Guidance Fluoroscopy 10/18/17 00:00 IMPRESSION: SUCCESSFUL PLACEMENT OF A 5 FR DUAL LUMEN 24 CM PICC IN THE RIGHT BASILIC VEIN. Interventional Vascular Procedure 10/18/17 00:00 IMPRESSION: SUCCESSFUL PLACEMENT OF A 5 FR DUAL LUMEN 24 CM PICC IN THE RIGHT BASILIC VEIN. PICC Line Insertion 10/18/17 00:00 IMPRESSION: SUCCESSFUL PLACEMENT OF A 5 FR DUAL LUMEN 24 CM PICC IN THE RIGHT BASILIC VEIN. Assessment & Plan - Diagnosis (1) Septic shock Is this a current diagnosis for this admission?: Yes Plan: Resolved. Secondary to abscess/cellulitis of the perineum as well as pneumonia. The patient has developed a septic picture twice during this hospitalization. He continues to have persistent leukocytosis and reactive thrombocytosis but overall his septic picture has resolved. He is no longer running fevers. (2) Acute respiratory failure with hypoxia Is this a current diagnosis for this admission?: Yes Plan: Requiring mechanical ventilation in the ICU. Resolved. Secondary to pneumonia and septic shock. Resolved. (3) Abscess or cellulitis of perineum Is this a current diagnosis for this admission?: Yes Plan: He is going back to the operating room tomorrow for further debridement. Vancomycin has an FANNIE of 2 on previous cultures but the most recent one has a vancomycin 1. He had initially been changed to p.o. doxycycline and IV cefepime. I have reviewed the latest culture results. If we are going to try p.o. antibiotics he will need to continue with p.o. doxycycline and we will need to add another agent. IV ceftriaxone is sensitive to both of his other organisms. Unfortunately it does not seem that we have Omnicef here in this facility to use as an oral agent. I will narrow his antibiotic coverage IV to ceftriaxone to cover his additional organisms. (4) Sacral decubitus ulcer, stage III Is this a current diagnosis for this admission?: Yes Plan: He has a wound VAC in place. He is going back to the operating room tomorrow for debridement. Continue doxycycline for now. (5) Pneumonia Qualifiers: Laterality: bilateral Lung location: unspecified part of lung Is this a current diagnosis for this admission?: Yes Plan: The patient likely had a MRSA pneumonia based on his sputum cultures. Resolved. (6) Diabetic keto-acidosis Qualifiers: Diabetes mellitus type: type 1 Diabetes mellitus complication detail: with coma Qualified Code(s): E10.11 - Type 1 diabetes mellitus with ketoacidosis with coma Is this a current diagnosis for this admission?: Yes Plan: Resolved (7) Hypoxic brain injury Is this a current diagnosis for this admission?: Yes (8) Hypokalemia Is this a current diagnosis for this admission?: Yes Plan: This will be repleted this morning. A level will be rechecked in the morning. (9) Hypomagnesemia Is this a current diagnosis for this admission?: Yes Plan: His level is low today. It will be repleted with magnesium sulfate. (10) Hypercalcemia Is this a current diagnosis for this admission?: Yes Plan: His ionized calcium is high. I will obtain an intact PTH and vitamin D level. (11) Crohns disease Qualifiers: Gastrointestinal tract location: unspecified location Is this a current diagnosis for this admission?: Yes Plan: Appears to be stable at this point. (12) Diabetes mellitus Qualifiers: Diabetes mellitus type: type 1 Diabetes mellitus complication status: with unspecified complications Qualified Code(s): E10.8 - Type 1 diabetes mellitus with unspecified complications Is this a current diagnosis for this admission?: Yes Plan: Stable on current regimen (13) Chronic prescription opiate use Is this a current diagnosis for this admission?: Yes (14) Chronic pain Qualifiers: Chronic pain type: chronic pain syndrome Qualified Code(s): G89.4 - Chronic pain syndrome Is this a current diagnosis for this admission?: Yes (15) Diabetic neuropathy Qualifiers: Diabetes mellitus type: type 1 Diabetes mellitus complication detail: diabetic polyneuropathy Qualified Code(s): E10.42 - Type 1 diabetes mellitus with diabetic polyneuropathy Is this a current diagnosis for this admission?: Yes (16) Hematuria Qualifiers: Hematuria type: asymptomatic microscopic Qualified Code(s): R31.21 - Asymptomatic microscopic hematuria Is this a current diagnosis for this admission?: Yes (17) Hypernatremia Is this a current diagnosis for this admission?: Yes (18) Severe protein-calorie malnutrition Is this a current diagnosis for this admission?: Yes (19) Hidradenitis Is this a current diagnosis for this admission?: Yes Plan: This is the cause for his most recent issues. (20) Leukocytosis Qualifiers: Leukocytosis type: leukemoid reaction Qualified Code(s): D72.823 - Leukemoid reaction Is this a current diagnosis for this admission?: Yes Plan: He continues to have persistent leukocytosis. His infection seems to be under control. This is likely reactive (21) Reactive thrombocytosis Is this a current diagnosis for this admission?: Yes Plan: Likely reactive. . (23) Anemia Is this a current diagnosis for this admission?: Yes Plan: He has a microcytic anemia. His anemia is likely multifactorial secondary to chronic disease probable iron deficiency. He has had a precipitous drop in his hemoglobin overnight likely due to hemodilution. He will have a CBC drawn in the morning. He is not symptomatic. I do not believe he needs a transfusion at this point. - Time Time Spent with patient: 25-34 minutes - Inpatient Certification Medical Necessity: Need for IV Antibiotics - Inpatient hospitalization remains necessary. Overall the patient is slowly improving. Timing of disposition will be determined by his clinical course. He is going to the operating today for further there are surgical debridement., Other
[2017-10-19] MEDS: MAGNESIUM SULFATE/D5W 1 GM/100 ML RTUPB IV SCH ×2 (13:34→18:00)
[2017-10-19] MEDS ORDERED: PROPOFOL INJ 200 MG/20 ML VIAL IV ONE (15:03)
[2017-10-19] MEDS ORDERED: MIDAZOLAM 2 MG/2 ML INJ ONE (15:03)
[2017-10-19] MEDS ORDERED: ACETAMINOPHEN 100 ML IV ONE (15:03)
[2017-10-19] MEDS ORDERED: LIDOCAINE 2% INJ-PF (20 MG/ML) 10 ML AMPUL ONE (15:03)
[2017-10-19] MEDS ORDERED: FENTANYL CITRATE INJ/PF 100 MCG/2 ML AMPUL ONE (15:03)
[2017-10-19] MEDS ORDERED: CEFAZOLIN INJ 1 GM VIAL ONE (15:38)
[2017-10-19] MEDS ORDERED: LIDOCAINE 0.5% INJ-PF (5 MG/ML) 50 ML SDV ONE (15:40)
[2017-10-19] MEDS ORDERED: FENTANYL CITRATE INJ/PF 100 MCG/2 ML AMPUL IV PRN ×3 (15:43)
[2017-10-19] MEDS ORDERED: DIPHENHYDRAMINE HCL 50 MG/ML VIAL IV PRN (15:43)
[2017-10-19] MEDS ORDERED: OXYCODONE-ACETAMINOPHEN 5-325 MG TABLET PO PRN ×2 (15:43)
[2017-10-19] MEDS ORDERED: PROMETHAZINE HCL INJ 25 MG/1 ML VIAL IV PRN ×2 (15:43)
[2017-10-19] MEDS ORDERED: ONDANSETRON HCL INJ/PF 4 MG/2 ML SDV IV PRN (15:43)
[2017-10-19] MEDS ORDERED: MEPERIDINE HCL/PF INJ 25 MG/1 ML DISP.SYRIN IV PRN (15:43)
[2017-10-19] MEDS ORDERED: MAGNESIUM SULFATE/D5W 1 GM/100 ML RTUPB IV ONE (17:30)
[2017-10-19] MEDS: OXYCODONE-ACETAMINOPHEN 5-325 MG TABLET PO PRN ×2 (18:00→23:00)
[2017-10-19] MEDS: TAMSULOSIN HCL 0.4 MG CAP.SR.24H PO SCH (21:11)
[2017-10-19] MEDS: QUETIAPINE FUMARATE 25 MG TABLET PO SCH (21:12)
[2017-10-20] MEDS: OXYCODONE-ACETAMINOPHEN 5-325 MG TABLET PO PRN ×3 (05:13→20:31)
[2017-10-20] MEDS: PREGABALIN 50 MG CAPSULE PO SCH ×3 (05:13→22:15)
[2017-10-20] MEDS: FENTANYL CITRATE INJ/PF 100 MCG/2 ML AMPUL IV PRN (07:05)
[2017-10-20] MEDS: OXYCODONE HCL SR 10 MG TABLET PO SCH ×2 (09:47→22:16)
[2017-10-20] MEDS: OXYCODONE HCL SR 40 MG TABLET PO SCH ×2 (09:48→22:16)
[2017-10-20] MEDS: FINASTERIDE 5 MG TABLET PO SCH (09:49)
[2017-10-20] MEDS: DULOXETINE HCL 30 MG CAPSULE.DR PO SCH ×2 (09:49→22:15)
[2017-10-20] MEDS: ENOXAPARIN SODIUM INJ 40 MG/0.4 ML DISP.SYRIN SUBCUT SCH (09:50)
[2017-10-20] MEDS: CEFTRIAXONE 2 GM/D5W RTU 2 GM/50 ML RTUPB IV SCH (09:52)
[2017-10-20] MEDS: NORMAL SALINE 10 ML SDV (SCHEDULED) IV SCH ×2 (09:53→22:17)
[2017-10-20] MEDS ORDERED: POTASSIUM CHLORIDE 10 MEQ TABLET.SA PO ONE (11:30)
[2017-10-20] MEDS: FENTANYL 50 MCG/HR PATCH.TD72 TD SCH (11:47)
--- NOTE | 2017-10-20 12:52 | OPERATIVE REPORT E ---
Operative Report NAME: TIA VILLANUEVA : 1965 AGE: 51Y DATE OF SURGERY: 10/19/2017 ROOM: 308 PREOPERATIVE DIAGNOSIS: INFECTED LEFT GROIN. POSTOPERATIVE DIAGNOSIS: INFECTED LEFT GROIN. OPERATION: Debridement of left groin and posterior thigh. SURGEON: RAIZA KIMBLE M.D. ANESTHESIA: Local MAC. INDICATION: This is a 51-year-old male who is having chronic infections of both groins. The left groin appears to have some yellowish drainage. PROCEDURE: After adequate IV sedation, patient is placed in lithotomy position and the left groin perineal area and the right side were then prepped and draped in the usual sterile fashion. Local anesthesia infiltrated on the groin. The surface appears to have some reddened granulation tissue and almost exudative secretions. This was then curetted and subsequently, pulse lavaged. The area roughly measured about 16 cm x 5 cm x 2 cm deep. Next, the posterior area on the thigh was then anesthetized with 1% Xylocaine and subsequently curetted also. It was noted to be tunneling a little bit to about 1.5 cm deep but unable to probe through and through. It appears to stop right about 1.5 cm. This was then further curetted and also pulse lavaged. Sterile dressings placed over the operative sites using Xeroform gauze and 4 x 4 and ABD pads. The right side also had some areas of hypergranulation area which was gently debrided. Sterile dressing was placed on both groins in the posterior area. Patient tolerated procedure well. Needle and sponge counts were all correct. ESTIMATED BLOOD LOSS: About 40 mL. DICTATING PHYSICIAN: RAIZA KIMBLE M.D. [id number] PHY#: [id number] ID: [id number] JOB#: [id number] ACCT: [id number] cc:RAIZA KIMBLE M.D. > [facility]
--- NOTE | 2017-10-20 18:36 | PDOC PROGRESS REPORT ---
Subjective Progress Note for:: 10/20/17 Subjective:: I seen patient lying in bed but he complains of pain all over his body particularly on his back. Reason For Visit: DKA, SEPSIS, cellulitis, respiratory failure Physical Exam Vital Signs: Temp Pulse Resp BP Pulse Ox 99.4 F 98 12 126/79 H 100 10/20/17 15:15 10/20/17 15:15 10/20/17 15:15 10/20/17 15:15 10/20/17 15:15 Intake & Output 10/19/17 10/20/17 10/21/17 06:59 06:59 06:59 Intake Total 3403 4630 1137 Output Total 4021 6210 3560 Balance -611 -6195 -929 Weight 56.9 kg 58.9 kg General appearance: PRESENT: mild distress Head exam: PRESENT: atraumatic, normocephalic Respiratory exam: PRESENT: clear to auscultation daija. ABSENT: rales, rhonchi, wheezes Cardiovascular exam: PRESENT: RRR. ABSENT: diastolic murmur, rubs, systolic murmur GI/Abdominal exam: PRESENT: hyperactive bowel sounds Neurological exam: PRESENT: alert, awake, oriented to time, oriented to situation Results Laboratory Results: 10/19/17 07:59 10/19/17 05:30 08/24/17 08/24/17 08/25/17 18:00 22:00 05:15 Creatine Kinase 140 117 82 CK-MB (CK-2) Troponin I NT-Pro-B Natriuret Pep 09/02/17 09/02/17 09/03/17 17:45 17:45 05:35 Creatine Kinase 50 L CK-MB (CK-2) 0.40 Troponin I 0.027 NT-Pro-B Natriuret Pep 4690 H Impressions: Thoracic Spine CT 08/26/17 08:00 IMPRESSION: No acute findings in the thoracic spine. Chest X-Ray 10/09/17 00:00 IMPRESSION: NO ACUTE RADIOGRAPHIC FINDING IN THE CHEST. Abdomen/Pelvis CT 10/09/17 13:59 IMPRESSION: NO SIGNIFICANT OR ACUTE FINDING IN THE ABDOMEN OR PELVIS ON CT SCAN WITH IV CONTRAST. SURGICAL CHANGES WITH PERIUMBILICAL COLOSTOMY AND PRIOR SPLENECTOMY. SMALL CORTICAL CYST IN THE LEFT KIDNEY. SOFT TISSUE DEFECT IN THE LEFT BUTTOCKS, INCOMPLETELY IMAGED. Guidance Fluoroscopy 10/18/17 00:00 IMPRESSION: SUCCESSFUL PLACEMENT OF A 5 FR DUAL LUMEN 24 CM PICC IN THE RIGHT BASILIC VEIN. Interventional Vascular Procedure 10/18/17 00:00 IMPRESSION: SUCCESSFUL PLACEMENT OF A 5 FR DUAL LUMEN 24 CM PICC IN THE RIGHT BASILIC VEIN. PICC Line Insertion 10/18/17 00:00 IMPRESSION: SUCCESSFUL PLACEMENT OF A 5 FR DUAL LUMEN 24 CM PICC IN THE RIGHT BASILIC VEIN. Assessment & Plan - Diagnosis (1) Septic shock Is this a current diagnosis for this admission?: Yes Plan: As resolved (2) Acute respiratory failure Qualifiers: Respiratory failure complication: hypoxia Qualified Code(s): J96.01 - Acute respiratory failure with hypoxia Is this a current diagnosis for this admission?: Yes Plan: I resolved now currently patient saturates well on room air (4) Abscess or cellulitis of perineum Is this a current diagnosis for this admission?: Yes Plan: His wound culture grew Klebsiella pneumonia, E. coli and staph aureus. The E. coli and Klebsiella are sensitive to multiple antibiotics but the S. aureus is sensitive to few antibiotics. Currently patient has been on ceftriaxone as recommended by infectious disease specialist. (5) Sepsis Qualifiers: Sepsis type: sepsis due to unspecified organism Qualified Code(s): A41.9 - Sepsis, unspecified organism Is this a current diagnosis for this admission?: Yes Plan: Has been resolving patient remained febrile. - Time Time Spent with patient: 15-24 minutes - Inpatient Certification Medical Necessity: Need for IV Antibiotics
[2017-10-20] MEDS: TAMSULOSIN HCL 0.4 MG CAP.SR.24H PO SCH (22:15)
[2017-10-20] MEDS: QUETIAPINE FUMARATE 25 MG TABLET PO SCH (22:15)
[2017-10-21 05:08] LABS: ABSOLUTE BASOPHILS # (AUTO) 0.2 10^3/uL (0.0-0.2); ABSOLUTE EOSINOPHILS # (AUTO) 0.8 10^3/uL (0.0-0.6); ABSOLUTE MONOCYTES (AUTO) 1.6 10^3/uL (0.1-1.4); ABSOLUTE NEUT (AUTO) 9.8 10^3/uL (1.7-8.2); BASOPHILS % (AUTO) 1.2 % (0-2); EOSINOPHILS % (AUTO) 4.9 % (0-6); HEMATOCRIT 23.8 % (37.9-51.0); LYMPHOCYTES % (AUTO) 24.5 % (13-45); MEAN CORPUSCULAR HEMOGLOBIN 25.3 pg (27.0-33.4); MEAN CORPUSCULAR HGB CONC 32.2 g/dL (32.0-36.0); MEAN CORPUSCULAR VOLUME 79 fl (80-97); PLATELET COUNT 783 10^3/uL (150-450); RED BLOOD COUNT 3.03 10^6/uL (4.35-5.55); RED CELL DISTRIBUTION WIDTH 18.8 % (11.5-14.0); SEGMENTED NEUTROPHILS % (AUTO) 59.4 % (42-78); TOTAL CELLS COUNTED % (AUTO) 100 %; WHITE BLOOD COUNT 16.4 10^3/uL (4.0-10.5)
[2017-10-21 05:13] LABS: HEMOGLOBIN 7.7 g/dL (13.5-17.0)
[2017-10-21 05:21] LABS: ALANINE AMINOTRANSFERASE 25 U/L (21-72); ALBUMIN 2.6 g/dL (3.5-5.0); ALKALINE PHOSPHATASE 189 U/L (38-126); ANION GAP 8 (5-19); ASPARTATE AMINO TRANSFERASE 16 U/L (17-59); BLOOD UREA NITROGEN 7 mg/dL (7-20); CALCIUM 10.5 mg/dL (8.4-10.2); CARBON DIOXIDE 31 mmol/L (22-30); CHLORIDE 98 mmol/L (98-107); GLUCOSE 111 mg/dL (75-110); POTASSIUM 3.7 mmol/L (3.6-5.0); SODIUM 136.9 mmol/L (137-145); TOTAL PROTEIN 6.5 g/dL (6.3-8.2)
[2017-10-21 05:28] LABS: BILIRUBIN,TOTAL < 0.1 mg/dL (0.2-1.3)
[2017-10-21] MEDS: OXYCODONE-ACETAMINOPHEN 5-325 MG TABLET PO PRN ×3 (06:54→20:00)
[2017-10-21] MEDS: PREGABALIN 50 MG CAPSULE PO SCH ×3 (06:54→22:15)
[2017-10-21] MEDS: FINASTERIDE 5 MG TABLET PO SCH (09:06)
[2017-10-21] MEDS: OXYCODONE HCL SR 40 MG TABLET PO SCH ×2 (09:07→22:14)
[2017-10-21] MEDS: DULOXETINE HCL 30 MG CAPSULE.DR PO SCH ×2 (09:08→22:14)
[2017-10-21] MEDS: OXYCODONE HCL SR 10 MG TABLET PO SCH ×2 (09:08→22:13)
[2017-10-21] MEDS: CEFTRIAXONE 2 GM/D5W RTU 2 GM/50 ML RTUPB IV SCH (09:10)
[2017-10-21] MEDS: NORMAL SALINE 10 ML SDV (SCHEDULED) IV SCH ×2 (09:11→22:15)
[2017-10-21] MEDS: ENOXAPARIN SODIUM INJ 40 MG/0.4 ML DISP.SYRIN SUBCUT SCH (09:11)
--- NOTE | 2017-10-21 14:11 | PDOC PROGRESS REPORT ---
Subjective Progress Note for:: 10/21/17 Subjective:: I seen patient lying in bed. He is awake alert and oriented. He is not in respiratory distress. He reports his pain is relatively subsided after he started on fentanyl patch 50 mics every 72 hours. Reason For Visit: DKA, SEPSIS, extensive cellulitis and abscess Physical Exam Vital Signs: Temp Pulse Resp BP Pulse Ox 99.0 F 90 16 119/71 97 10/21/17 07:55 10/21/17 07:55 10/21/17 07:55 10/21/17 07:55 10/21/17 07:55 Intake & Output 10/20/17 10/21/17 10/22/17 06:59 06:59 06:59 Intake Total 4630 1820 Output Total 6210 2850 Balance -1580 -1030 Weight 58.9 kg 52.8 kg General appearance: PRESENT: no acute distress Head exam: PRESENT: atraumatic, normocephalic Respiratory exam: PRESENT: clear to auscultation daija. ABSENT: rales, rhonchi, wheezes Cardiovascular exam: PRESENT: RRR. ABSENT: diastolic murmur, rubs, systolic murmur Results Laboratory Results: 10/21/17 04:30 10/21/17 04:30 10/21/17 10/21/17 04:30 04:30 WBC 16.4 H RBC 3.03 L Hgb 7.7 L Hct 23.8 L MCV 79 L MCH 25.3 L MCHC 32.2 RDW 18.8 H Plt Count 783 H Seg Neutrophils % 59.4 Lymphocytes % 24.5 Monocytes % 10.0 Eosinophils % 4.9 Basophils % 1.2 Absolute Neutrophils 9.8 H Absolute Lymphocytes 4.0 Absolute Monocytes 1.6 H Absolute Eosinophils 0.8 H Absolute Basophils 0.2 Sodium 136.9 L Potassium 3.7 Chloride 98 Carbon Dioxide 31 H Anion Gap 8 BUN 7 Creatinine 0.74 Est GFR ( Amer) > 60 Est GFR (Non-Af Amer) > 60 Glucose 111 H Calcium 10.5 H Total Bilirubin < 0.1 L AST 16 L ALT 25 Alkaline Phosphatase 189 H Total Protein 6.5 Albumin 2.6 L 08/24/17 08/24/17 08/25/17 18:00 22:00 05:15 Creatine Kinase 140 117 82 CK-MB (CK-2) Troponin I NT-Pro-B Natriuret Pep 09/02/17 09/02/17 09/03/17 17:45 17:45 05:35 Creatine Kinase 50 L CK-MB (CK-2) 0.40 Troponin I 0.027 NT-Pro-B Natriuret Pep 4690 H Impressions: Thoracic Spine CT 08/26/17 08:00 IMPRESSION: No acute findings in the thoracic spine. Chest X-Ray 10/09/17 00:00 IMPRESSION: NO ACUTE RADIOGRAPHIC FINDING IN THE CHEST. Abdomen/Pelvis CT 10/09/17 13:59 IMPRESSION: NO SIGNIFICANT OR ACUTE FINDING IN THE ABDOMEN OR PELVIS ON CT SCAN WITH IV CONTRAST. SURGICAL CHANGES WITH PERIUMBILICAL COLOSTOMY AND PRIOR SPLENECTOMY. SMALL CORTICAL CYST IN THE LEFT KIDNEY. SOFT TISSUE DEFECT IN THE LEFT BUTTOCKS, INCOMPLETELY IMAGED. Guidance Fluoroscopy 10/18/17 00:00 IMPRESSION: SUCCESSFUL PLACEMENT OF A 5 FR DUAL LUMEN 24 CM PICC IN THE RIGHT BASILIC VEIN. Interventional Vascular Procedure 10/18/17 00:00 IMPRESSION: SUCCESSFUL PLACEMENT OF A 5 FR DUAL LUMEN 24 CM PICC IN THE RIGHT BASILIC VEIN. PICC Line Insertion 10/18/17 00:00 IMPRESSION: SUCCESSFUL PLACEMENT OF A 5 FR DUAL LUMEN 24 CM PICC IN THE RIGHT BASILIC VEIN. Assessment & Plan - Diagnosis (1) Septic shock Is this a current diagnosis for this admission?: Yes Plan: Has resolved. (2) Acute respiratory failure Qualifiers: Respiratory failure complication: hypoxia Qualified Code(s): J96.01 - Acute respiratory failure with hypoxia Is this a current diagnosis for this admission?: Yes Plan: His condition has improved. He is on saturation is normal on room air. (3) Abscess or cellulitis of perineum Is this a current diagnosis for this admission?: Yes Plan: His wound culture grew Klebsiella pneumonia, E. coli and staph aureus. The E. coli and Klebsiella are sensitive to multiple antibiotics but the S. aureus is sensitive to few antibiotics. Currently patient has been on ceftriaxone as recommended by infectious disease specialist. Continue current regimen (4) Sepsis Qualifiers: Sepsis type: sepsis due to unspecified organism Qualified Code(s): A41.9 - Sepsis, unspecified organism Is this a current diagnosis for this admission?: Yes Plan: Has resolved (5) DKA (diabetic ketoacidoses) Is this a current diagnosis for this admission?: Yes Plan: Resolved - Time Time Spent with patient: 25-34 minutes
[2017-10-21] MEDS: QUETIAPINE FUMARATE 25 MG TABLET PO SCH (22:13)
[2017-10-21] MEDS: TAMSULOSIN HCL 0.4 MG CAP.SR.24H PO SCH (22:14)
[2017-10-22] MEDS: OXYCODONE-ACETAMINOPHEN 5-325 MG TABLET PO PRN ×5 (00:56→23:01)
[2017-10-22] MEDS: PREGABALIN 50 MG CAPSULE PO SCH ×3 (05:27→21:05)
[2017-10-22] MEDS: ENOXAPARIN SODIUM INJ 40 MG/0.4 ML DISP.SYRIN SUBCUT SCH (11:05)
[2017-10-22] MEDS: CEFTRIAXONE 2 GM/D5W RTU 2 GM/50 ML RTUPB IV SCH (11:06)
[2017-10-22] MEDS: OXYCODONE HCL SR 40 MG TABLET PO SCH ×2 (11:07→21:05)
[2017-10-22] MEDS: OXYCODONE HCL SR 10 MG TABLET PO SCH ×2 (11:08→21:04)
[2017-10-22] MEDS: FINASTERIDE 5 MG TABLET PO SCH (11:10)
[2017-10-22] MEDS: NORMAL SALINE 10 ML SDV (SCHEDULED) IV SCH ×2 (11:11→21:06)
[2017-10-22] MEDS: DULOXETINE HCL 30 MG CAPSULE.DR PO SCH ×2 (11:11→21:04)
--- NOTE | 2017-10-22 13:18 | PDOC PROGRESS REPORT ---
Subjective Progress Note for:: 10/22/17 Subjective:: I seen patient lying in bed. He is awake alert and oriented. Today's exactly 2 months this since patient admitted. His blood work shows remarkable improvement evidenced by platelet count which was 11 or 7 now 783 and his white cell count dropped to 16.4 from 21.8. Reason For Visit: DKA, SEPSIS Physical Exam Vital Signs: Temp Pulse Resp BP Pulse Ox 99.5 F 92 10 L 108/67 96 10/22/17 11:37 10/22/17 11:37 10/22/17 11:37 10/22/17 11:37 10/22/17 11:37 Intake & Output 10/21/17 10/22/17 10/23/17 06:59 06:59 06:59 Intake Total 1820 250 327 Output Total 2850 1805 625 Balance -1030 -3615 -298 Weight 52.8 kg 52.8 kg General appearance: PRESENT: no acute distress, well-developed, well-nourished Respiratory exam: PRESENT: accessory muscle use Cardiovascular exam: PRESENT: RRR. ABSENT: diastolic murmur, rubs, systolic murmur Results Laboratory Results: 10/21/17 04:30 10/21/17 04:30 10/19/17 15:40 Groin - Left Gram Stain - Final 08/24/17 08/24/17 08/25/17 18:00 22:00 05:15 Creatine Kinase 140 117 82 CK-MB (CK-2) Troponin I NT-Pro-B Natriuret Pep 09/02/17 09/02/17 09/03/17 17:45 17:45 05:35 Creatine Kinase 50 L CK-MB (CK-2) 0.40 Troponin I 0.027 NT-Pro-B Natriuret Pep 4690 H Impressions: Thoracic Spine CT 08/26/17 08:00 IMPRESSION: No acute findings in the thoracic spine. Chest X-Ray 10/09/17 00:00 IMPRESSION: NO ACUTE RADIOGRAPHIC FINDING IN THE CHEST. Abdomen/Pelvis CT 10/09/17 13:59 IMPRESSION: NO SIGNIFICANT OR ACUTE FINDING IN THE ABDOMEN OR PELVIS ON CT SCAN WITH IV CONTRAST. SURGICAL CHANGES WITH PERIUMBILICAL COLOSTOMY AND PRIOR SPLENECTOMY. SMALL CORTICAL CYST IN THE LEFT KIDNEY. SOFT TISSUE DEFECT IN THE LEFT BUTTOCKS, INCOMPLETELY IMAGED. Guidance Fluoroscopy 10/18/17 00:00 IMPRESSION: SUCCESSFUL PLACEMENT OF A 5 FR DUAL LUMEN 24 CM PICC IN THE RIGHT BASILIC VEIN. Interventional Vascular Procedure 10/18/17 00:00 IMPRESSION: SUCCESSFUL PLACEMENT OF A 5 FR DUAL LUMEN 24 CM PICC IN THE RIGHT BASILIC VEIN. PICC Line Insertion 10/18/17 00:00 IMPRESSION: SUCCESSFUL PLACEMENT OF A 5 FR DUAL LUMEN 24 CM PICC IN THE RIGHT BASILIC VEIN. Assessment & Plan - Diagnosis (1) Septic shock Is this a current diagnosis for this admission?: Yes Plan: Has resolved. (2) Acute respiratory failure Qualifiers: Respiratory failure complication: hypoxia Qualified Code(s): J96.01 - Acute respiratory failure with hypoxia Is this a current diagnosis for this admission?: Yes (3) Abscess or cellulitis of perineum Is this a current diagnosis for this admission?: Yes Plan: His wound culture grew Klebsiella pneumonia, E. coli and staph aureus. The E. coli and Klebsiella are sensitive to multiple antibiotics but the S. aureus is sensitive to few antibiotics. Currently patient has been on ceftriaxone as recommended by infectious disease specialist. Continue current regimen (4) Sepsis Qualifiers: Sepsis type: sepsis due to unspecified organism Qualified Code(s): A41.9 - Sepsis, unspecified organism Is this a current diagnosis for this admission?: Yes Plan: Has resolved (5) DKA (diabetic ketoacidoses) Is this a current diagnosis for this admission?: Yes Plan: Resolved (6) Reactive thrombocytosis Is this a current diagnosis for this admission?: Yes Plan: Improving (7) Leukocytosis Is this a current diagnosis for this admission?: Yes Plan: Trending down - Time Time Spent with patient: 25-34 minutes
[2017-10-22] MEDS ORDERED: OXYCODONE HCL IR 5 MG TABLET PO PRN (19:02)
[2017-10-22] MEDS: QUETIAPINE FUMARATE 25 MG TABLET PO SCH (21:04)
[2017-10-22] MEDS: TAMSULOSIN HCL 0.4 MG CAP.SR.24H PO SCH (21:05)
[2017-10-22] MEDS: OXYCODONE HCL IR 5 MG TABLET PO PRN (23:02)
[2017-10-23] MEDS: OXYCODONE-ACETAMINOPHEN 5-325 MG TABLET PO PRN ×3 (03:45→17:09)
[2017-10-23] MEDS: OXYCODONE HCL IR 5 MG TABLET PO PRN ×3 (03:45→17:10)
[2017-10-23 05:11] LABS: HEMATOCRIT 23.5 % (37.9-51.0); MEAN CORPUSCULAR HEMOGLOBIN 25.7 pg (27.0-33.4); MEAN CORPUSCULAR HGB CONC 32.5 g/dL (32.0-36.0); MEAN CORPUSCULAR VOLUME 79 fl (80-97); RED BLOOD COUNT 2.97 10^6/uL (4.35-5.55); RED CELL DISTRIBUTION WIDTH 18.8 % (11.5-14.0); WHITE BLOOD COUNT 14.7 10^3/uL (4.0-10.5)
[2017-10-23 05:30] LABS: HEMOGLOBIN 7.6 g/dL (13.5-17.0)
[2017-10-23 05:36] LABS: ABSOLUTE LYMPHOCYTES# (MANUAL) 4.7 10^3/uL (0.5-4.7); ABSOLUTE MONOCYTES # (MANUAL) 2.1 10^3/uL (0.1-1.4); ABSOLUTE NEUTROPHILS# (MANUAL) 6.5 10^3/uL (1.7-8.2); BAND NEUTROPHILS % (MANUAL) 1 % (3-5); BASOPHILS % (MANUAL) 2 % (0-2); EOSINOPHILS % (MANUAL) 8 % (0-6); LYMPHOCYTES % (MANUAL) 29 % (13-45); MONOCYTES % (MANUAL) 14 % (3-13); SEGMENTED NEUTROPHILS % (MAN) 43 % (42-78); TOTAL CELLS COUNTED 100
[2017-10-23 05:39] LABS: ANISOCYTOSIS 2+; HYPOCHROMASIA 2+; PLATELET CLUMPS PRESENT; PLATELET COMMENT INCREASED; POIKILOCYTOSIS 1+; POLYCHROMASIA SLIGHT
[2017-10-23 05:40] LABS: PLATELET COUNT 766 10^3/uL (150-450)
[2017-10-23 05:41] LABS: ANION GAP 9 (5-19); BLOOD UREA NITROGEN 9 mg/dL (7-20); CARBON DIOXIDE 32 mmol/L (22-30); CHLORIDE 98 mmol/L (98-107); GLUCOSE 122 mg/dL (75-110); POTASSIUM 3.5 mmol/L (3.6-5.0); SODIUM 138.6 mmol/L (137-145)
[2017-10-23] MEDS: PREGABALIN 50 MG CAPSULE PO SCH ×3 (05:52→21:30)
[2017-10-23] MEDS: ENOXAPARIN SODIUM INJ 40 MG/0.4 ML DISP.SYRIN SUBCUT SCH (11:01)
[2017-10-23] MEDS: MORPHINE SULFATE SR 100 MG TABLET PO SCH ×2 (11:02→21:30)
[2017-10-23] MEDS: DULOXETINE HCL 30 MG CAPSULE.DR PO SCH ×2 (11:02→21:30)
[2017-10-23] MEDS: FINASTERIDE 5 MG TABLET PO SCH (11:03)
[2017-10-23] MEDS: NORMAL SALINE 10 ML SDV (SCHEDULED) IV SCH ×2 (11:04→21:31)
[2017-10-23] MEDS: FENTANYL 50 MCG/HR PATCH.TD72 TD SCH (11:04)
[2017-10-23] MEDS: CEFTRIAXONE 2 GM/D5W RTU 2 GM/50 ML RTUPB IV SCH (11:05)
--- NOTE | 2017-10-23 14:30 | PDOC PROGRESS REPORT ---
Subjective Progress Note for:: 10/23/17 Subjective:: Patient seen and examined at bedside. He is awake alert and oriented. I have a chance to correct his wound especially the sacral wound is granulating well. And the wound culture from his groin cream group D Enterococcus faecalis which is sensitive to penicillin and other antibiotics. Patient is already on ceftriaxone Reason For Visit: DKA, SEPSIS Physical Exam Vital Signs: Temp Pulse Resp BP Pulse Ox 99.4 F 94 10 L 113/75 97 10/23/17 11:39 10/23/17 11:39 10/23/17 11:39 10/23/17 11:39 10/23/17 11:39 Intake & Output 10/22/17 10/23/17 10/24/17 06:59 06:59 06:59 Intake Total 250 904 437 Output Total 1805 2675 200 Balance -1555 -1771 237 Weight 52.8 kg 54.4 kg General appearance: PRESENT: no acute distress, well-developed, well-nourished Head exam: PRESENT: atraumatic, normocephalic Eye exam: PRESENT: conjunctiva pink, EOMI, PERRLA. ABSENT: scleral icterus Ear exam: PRESENT: normal external ear exam Mouth exam: PRESENT: moist, tongue midline Neck exam: ABSENT: carotid bruit, JVD, lymphadenopathy, thyromegaly Respiratory exam: PRESENT: clear to auscultation daija. ABSENT: rales, rhonchi, wheezes Cardiovascular exam: PRESENT: RRR. ABSENT: diastolic murmur, rubs, systolic murmur Pulses: PRESENT: normal dorsalis pedis pul Vascular exam: PRESENT: normal capillary refill GI/Abdominal exam: PRESENT: normal bowel sounds, soft. ABSENT: distended, guarding, mass, organolmegaly, rebound, tenderness Rectal exam: PRESENT: deferred Extremities exam: PRESENT: full ROM. ABSENT: calf tenderness, clubbing, pedal edema Neurological exam: PRESENT: alert, awake, oriented to person, oriented to place , oriented to time, oriented to situation, CN II-XII grossly intact. ABSENT: motor sensory deficit Psychiatric exam: PRESENT: appropriate affect, normal mood. ABSENT: homicidal ideation, suicidal ideation Skin exam: PRESENT: dry, intact, warm. ABSENT: cyanosis, rash Results Laboratory Results: 10/23/17 04:10 10/23/17 04:10 10/23/17 10/23/17 04:10 04:10 WBC 14.7 H RBC 2.97 L Hgb 7.6 L Hct 23.5 L MCV 79 L MCH 25.7 L MCHC 32.5 RDW 18.8 H Plt Count 766 H Seg Neutrophils % Not Reportable Lymphocytes % Not Reportable Monocytes % Not Reportable Eosinophils % Not Reportable Basophils % Not Reportable Absolute Neutrophils Not Reportable Absolute Lymphocytes Not Reportable Absolute Monocytes Not Reportable Absolute Eosinophils Not Reportable Absolute Basophils Not Reportable Sodium 138.6 Potassium 3.5 L Chloride 98 Carbon Dioxide 32 H Anion Gap 9 BUN 9 Creatinine 0.66 Est GFR ( Amer) > 60 Est GFR (Non-Af Amer) > 60 Glucose 122 H Calcium 10.0 10/19/17 15:40 Groin - Left Gram Stain - Final 10/19/17 15:40 Groin - Left Wound Culture - Final Enterococcus Faecalis(Group D) No Anaerobic Organisms 08/24/17 08/24/17 08/25/17 18:00 22:00 05:15 Creatine Kinase 140 117 82 CK-MB (CK-2) Troponin I NT-Pro-B Natriuret Pep 09/02/17 09/02/17 09/03/17 17:45 17:45 05:35 Creatine Kinase 50 L CK-MB (CK-2) 0.40 Troponin I 0.027 NT-Pro-B Natriuret Pep 4690 H Impressions: Thoracic Spine CT 08/26/17 08:00 IMPRESSION: No acute findings in the thoracic spine. Chest X-Ray 10/09/17 00:00 IMPRESSION: NO ACUTE RADIOGRAPHIC FINDING IN THE CHEST. Abdomen/Pelvis CT 10/09/17 13:59 IMPRESSION: NO SIGNIFICANT OR ACUTE FINDING IN THE ABDOMEN OR PELVIS ON CT SCAN WITH IV CONTRAST. SURGICAL CHANGES WITH PERIUMBILICAL COLOSTOMY AND PRIOR SPLENECTOMY. SMALL CORTICAL CYST IN THE LEFT KIDNEY. SOFT TISSUE DEFECT IN THE LEFT BUTTOCKS, INCOMPLETELY IMAGED. Guidance Fluoroscopy 10/18/17 00:00 IMPRESSION: SUCCESSFUL PLACEMENT OF A 5 FR DUAL LUMEN 24 CM PICC IN THE RIGHT BASILIC VEIN. Interventional Vascular Procedure 10/18/17 00:00 IMPRESSION: SUCCESSFUL PLACEMENT OF A 5 FR DUAL LUMEN 24 CM PICC IN THE RIGHT BASILIC VEIN. PICC Line Insertion 10/18/17 00:00 IMPRESSION: SUCCESSFUL PLACEMENT OF A 5 FR DUAL LUMEN 24 CM PICC IN THE RIGHT BASILIC VEIN. Assessment & Plan - Diagnosis (1) Septic shock Is this a current diagnosis for this admission?: Yes Plan: Has resolved. (2) Acute respiratory failure Qualifiers: Respiratory failure complication: hypoxia Qualified Code(s): J96.01 - Acute respiratory failure with hypoxia Is this a current diagnosis for this admission?: Yes Plan: His condition has improved. He is on saturation is normal on room air. (3) Abscess or cellulitis of perineum Is this a current diagnosis for this admission?: Yes Plan: His wound culture grew Klebsiella pneumonia, E. coli and staph aureus. The E. coli and Klebsiella are sensitive to multiple antibiotics but the S. aureus is sensitive to few antibiotics. Currently patient has been on ceftriaxone as recommended by infectious disease specialist. Continue current regimen (4) Sepsis Qualifiers: Sepsis type: sepsis due to unspecified organism Qualified Code(s): A41.9 - Sepsis, unspecified organism Is this a current diagnosis for this admission?: Yes Plan: Has resolved (5) DKA (diabetic ketoacidoses) Is this a current diagnosis for this admission?: Yes Plan: Resolved (6) Reactive thrombocytosis Is this a current diagnosis for this admission?: Yes (7) Leukocytosis Is this a current diagnosis for this admission?: Yes
[2017-10-23] MEDS: QUETIAPINE FUMARATE 25 MG TABLET PO SCH (21:30)
[2017-10-23] MEDS: TAMSULOSIN HCL 0.4 MG CAP.SR.24H PO SCH (21:38)
[2017-10-24] MEDS: OXYCODONE-ACETAMINOPHEN 5-325 MG TABLET PO PRN ×3 (03:46→18:26)
[2017-10-24] MEDS: OXYCODONE HCL IR 5 MG TABLET PO PRN ×3 (03:46→18:26)
[2017-10-24] MEDS: PREGABALIN 50 MG CAPSULE PO SCH ×3 (05:36→21:09)
[2017-10-24] MEDS: DULOXETINE HCL 30 MG CAPSULE.DR PO SCH ×2 (10:02→21:09)
[2017-10-24] MEDS: MORPHINE SULFATE SR 100 MG TABLET PO SCH ×2 (10:07→21:10)
[2017-10-24] MEDS: FINASTERIDE 5 MG TABLET PO SCH (10:07)
[2017-10-24] MEDS: ENOXAPARIN SODIUM INJ 40 MG/0.4 ML DISP.SYRIN SUBCUT SCH (10:08)
[2017-10-24] MEDS: NORMAL SALINE 10 ML SDV (SCHEDULED) IV SCH ×2 (10:09→21:10)
[2017-10-24] MEDS: CEFTRIAXONE 2 GM/D5W RTU 2 GM/50 ML RTUPB IV SCH (10:11)
[2017-10-24] MEDS ORDERED: OXYCODONE HCL IR 5 MG TABLET PO ONE ×2 (12:15→12:30)
--- NOTE | 2017-10-24 14:26 | PDOC PROGRESS REPORT ---
Subjective Progress Note for:: 10/24/17 Subjective:: The patient is 51-year-old -[place] male who presented to the emergency room with sepsis/septic shock and diabetic ketoacidosis. He has a history of severe perineal and left cellulitis and abscess due to severe hidradenitis. Patient has also stage IV sacral decubitus ulcer which is granulating. Patient has multiple extensive incision and drainage and debridement. His wound culture grew Enterococcus faecalis, E. coli, Klebsiella pneumoniae and staph aureus. The patient has been on ceftriaxone. Morning I seen patient participating with physical therapist. Reason For Visit: DKA, SEPSIS Physical Exam Vital Signs: Temp Pulse Resp BP Pulse Ox 98.9 F 92 13 122/71 99 10/24/17 08:27 10/24/17 08:27 10/24/17 08:27 10/24/17 08:27 10/24/17 08:27 Intake & Output 10/23/17 10/24/17 10/25/17 06:59 06:59 06:59 Intake Total 904 1951 Output Total 2675 8855 Balance -1771 -564 Weight 54.4 kg 55.1 kg Results Laboratory Results: 10/23/17 04:10 10/23/17 04:10 08/24/17 08/24/17 08/25/17 18:00 22:00 05:15 Creatine Kinase 140 117 82 CK-MB (CK-2) Troponin I NT-Pro-B Natriuret Pep 09/02/17 09/02/17 09/03/17 17:45 17:45 05:35 Creatine Kinase 50 L CK-MB (CK-2) 0.40 Troponin I 0.027 NT-Pro-B Natriuret Pep 4690 H Impressions: Thoracic Spine CT 08/26/17 08:00 IMPRESSION: No acute findings in the thoracic spine. Chest X-Ray 10/09/17 00:00 IMPRESSION: NO ACUTE RADIOGRAPHIC FINDING IN THE CHEST. Abdomen/Pelvis CT 10/09/17 13:59 IMPRESSION: NO SIGNIFICANT OR ACUTE FINDING IN THE ABDOMEN OR PELVIS ON CT SCAN WITH IV CONTRAST. SURGICAL CHANGES WITH PERIUMBILICAL COLOSTOMY AND PRIOR SPLENECTOMY. SMALL CORTICAL CYST IN THE LEFT KIDNEY. SOFT TISSUE DEFECT IN THE LEFT BUTTOCKS, INCOMPLETELY IMAGED. Guidance Fluoroscopy 10/18/17 00:00 IMPRESSION: SUCCESSFUL PLACEMENT OF A 5 FR DUAL LUMEN 24 CM PICC IN THE RIGHT BASILIC VEIN. Interventional Vascular Procedure 10/18/17 00:00 IMPRESSION: SUCCESSFUL PLACEMENT OF A 5 FR DUAL LUMEN 24 CM PICC IN THE RIGHT BASILIC VEIN. PICC Line Insertion 10/18/17 00:00 IMPRESSION: SUCCESSFUL PLACEMENT OF A 5 FR DUAL LUMEN 24 CM PICC IN THE RIGHT BASILIC VEIN. Assessment & Plan - Diagnosis (1) Septic shock Is this a current diagnosis for this admission?: Yes Plan: Has resolved. (2) Acute respiratory failure Qualifiers: Respiratory failure complication: hypoxia Qualified Code(s): J96.01 - Acute respiratory failure with hypoxia Is this a current diagnosis for this admission?: Yes Plan: His condition has improved. He is on saturation is normal on room air. (3) Abscess or cellulitis of perineum Is this a current diagnosis for this admission?: Yes Plan: His wound culture grew Klebsiella pneumonia, E. coli and staph aureus. The E. coli and Klebsiella are sensitive to multiple antibiotics but the S. aureus is sensitive to few antibiotics. Currently patient has been on ceftriaxone as recommended by infectious disease specialist. Continue current regimen (4) Sepsis Qualifiers: Sepsis type: sepsis due to unspecified organism Qualified Code(s): A41.9 - Sepsis, unspecified organism Is this a current diagnosis for this admission?: Yes Plan: Has resolved (5) DKA (diabetic ketoacidoses) Is this a current diagnosis for this admission?: Yes Plan: Resolved (6) Reactive thrombocytosis Is this a current diagnosis for this admission?: Yes Plan: Improving (7) Leukocytosis Is this a current diagnosis for this admission?: Yes Plan: Trending down
[2017-10-24] MEDS: TAMSULOSIN HCL 0.4 MG CAP.SR.24H PO SCH (21:09)
[2017-10-24] MEDS: QUETIAPINE FUMARATE 25 MG TABLET PO SCH (21:09)
[2017-10-25] MEDS: OXYCODONE HCL IR 5 MG TABLET PO PRN ×3 (04:22→16:31)
[2017-10-25] MEDS: OXYCODONE-ACETAMINOPHEN 5-325 MG TABLET PO PRN (04:23)
[2017-10-25] MEDS: PREGABALIN 50 MG CAPSULE PO SCH ×3 (05:53→21:09)
[2017-10-25] MEDS: MORPHINE SULFATE SR 100 MG TABLET PO SCH ×2 (09:27→21:10)
[2017-10-25] MEDS: DULOXETINE HCL 30 MG CAPSULE.DR PO SCH ×2 (09:27→21:09)
[2017-10-25] MEDS: FINASTERIDE 5 MG TABLET PO SCH (09:28)
[2017-10-25] MEDS: NORMAL SALINE 10 ML SDV (SCHEDULED) IV SCH ×2 (09:28→21:10)
[2017-10-25] MEDS: ENOXAPARIN SODIUM INJ 40 MG/0.4 ML DISP.SYRIN SUBCUT SCH (09:29)
[2017-10-25] MEDS: CEFTRIAXONE 2 GM/D5W RTU 2 GM/50 ML RTUPB IV SCH (10:06)
--- NOTE | 2017-10-25 13:23 | PDOC PROGRESS REPORT ---
Subjective Progress Note for:: 10/25/17 Subjective:: He continues to complain of pain not managed with current medication. However, he remains quite somnolent and when I stepped out of the room for a couple minutes and came back he was sound asleep. Reason For Visit: DKA, SEPSIS Physical Exam Vital Signs: Temp Pulse Resp BP Pulse Ox 98.9 F 91 12 105/66 97 10/25/17 07:54 10/25/17 07:54 10/25/17 07:54 10/25/17 07:54 10/25/17 07:54 Intake & Output 10/24/17 10/25/17 10/26/17 06:59 06:59 06:59 Intake Total 1951 1130 Output Total 2515 1700 Balance -564 -570 Weight 55.1 kg 55.8 kg General appearance: PRESENT: no acute distress, thin Head exam: PRESENT: atraumatic Respiratory exam: PRESENT: clear to auscultation daija Cardiovascular exam: PRESENT: RRR GI/Abdominal exam: PRESENT: soft Neurological exam: PRESENT: alert, CN II-XII grossly intact Psychiatric exam: PRESENT: normal mood Skin exam: PRESENT: other - Coccygeal decubitus covered with a wound VAC - no leakage. Inguinal lesions freshly dressed, not otherwise inspected Results Laboratory Results: 10/23/17 04:10 10/23/17 04:10 08/24/17 08/24/17 08/25/17 18:00 22:00 05:15 Creatine Kinase 140 117 82 CK-MB (CK-2) Troponin I NT-Pro-B Natriuret Pep 09/02/17 09/02/17 09/03/17 17:45 17:45 05:35 Creatine Kinase 50 L CK-MB (CK-2) 0.40 Troponin I 0.027 NT-Pro-B Natriuret Pep 4690 H Impressions: Thoracic Spine CT 08/26/17 08:00 IMPRESSION: No acute findings in the thoracic spine. Chest X-Ray 10/09/17 00:00 IMPRESSION: NO ACUTE RADIOGRAPHIC FINDING IN THE CHEST. Abdomen/Pelvis CT 10/09/17 13:59 IMPRESSION: NO SIGNIFICANT OR ACUTE FINDING IN THE ABDOMEN OR PELVIS ON CT SCAN WITH IV CONTRAST. SURGICAL CHANGES WITH PERIUMBILICAL COLOSTOMY AND PRIOR SPLENECTOMY. SMALL CORTICAL CYST IN THE LEFT KIDNEY. SOFT TISSUE DEFECT IN THE LEFT BUTTOCKS, INCOMPLETELY IMAGED. Guidance Fluoroscopy 10/18/17 00:00 IMPRESSION: SUCCESSFUL PLACEMENT OF A 5 FR DUAL LUMEN 24 CM PICC IN THE RIGHT BASILIC VEIN. Interventional Vascular Procedure 10/18/17 00:00 IMPRESSION: SUCCESSFUL PLACEMENT OF A 5 FR DUAL LUMEN 24 CM PICC IN THE RIGHT BASILIC VEIN. PICC Line Insertion 10/18/17 00:00 IMPRESSION: SUCCESSFUL PLACEMENT OF A 5 FR DUAL LUMEN 24 CM PICC IN THE RIGHT BASILIC VEIN. Assessment & Plan - Diagnosis (1) Abscess or cellulitis of perineum Is this a current diagnosis for this admission?: Yes Plan: Drain is out. Being managed with wet-to-dry dressings per surgery. Patient could be discharged to an appropriate nursing setting when one is available (2) Anemia, chronic disease Is this a current diagnosis for this admission?: Yes Plan: Below baseline, but does not require transfusion. Has a history of iron deficiency and is not on iron currently. I will check a level (3) Chronic pain Qualifiers: Chronic pain type: chronic pain syndrome Qualified Code(s): G89.4 - Chronic pain syndrome Is this a current diagnosis for this admission?: Yes Plan: Continue current medications (4) Chronic prescription opiate use Is this a current diagnosis for this admission?: Yes (5) Sacral decubitus ulcer, stage III Is this a current diagnosis for this admission?: Yes Plan: Continue wound VAC. Stable (6) Malnutrition of moderate degree Is this a current diagnosis for this admission?: Yes
[2017-10-25 15:27] LABS: ALBUMIN 2.6 g/dL (3.5-5.0); ANION GAP 8 (5-19); BLOOD UREA NITROGEN 10 mg/dL (7-20); CALCIUM 10.4 mg/dL (8.4-10.2); CARBON DIOXIDE 32 mmol/L (22-30); CHLORIDE 97 mmol/L (98-107); GLUCOSE 119 mg/dL (75-110); PHOSPHORUS 5.2 mg/dL (2.5-4.5); POTASSIUM 4.1 mmol/L (3.6-5.0); SODIUM 136.9 mmol/L (137-145)
[2017-10-25] MEDS: QUETIAPINE FUMARATE 25 MG TABLET PO SCH (21:09)
[2017-10-25] MEDS: TAMSULOSIN HCL 0.4 MG CAP.SR.24H PO SCH (21:10)
[2017-10-26] MEDS: PREGABALIN 50 MG CAPSULE PO SCH ×3 (05:14→21:39)
[2017-10-26] MEDS: OXYCODONE-ACETAMINOPHEN 5-325 MG TABLET PO PRN ×3 (05:15→20:43)
[2017-10-26] MEDS: OXYCODONE HCL IR 5 MG TABLET PO PRN ×3 (05:15→20:42)
[2017-10-26 05:38] LABS: ABSOLUTE RETICS # 0.085 10^6/uL (0.028-0.122); HEMATOCRIT 23.9 % (37.9-51.0); MEAN CORPUSCULAR HEMOGLOBIN 25.9 pg (27.0-33.4); MEAN CORPUSCULAR HGB CONC 32.9 g/dL (32.0-36.0); MEAN CORPUSCULAR VOLUME 79 fl (80-97); PLATELET COUNT 867 10^3/uL (150-450); RED BLOOD COUNT 3.04 10^6/uL (4.35-5.55); RED CELL DISTRIBUTION WIDTH 19.1 % (11.5-14.0); RETICULOCYTE COUNT (AUTO) 2.78 % (0.66-2.85); WHITE BLOOD COUNT 16.4 10^3/uL (4.0-10.5)
[2017-10-26 05:41] LABS: HEMOGLOBIN 7.9 g/dL (13.5-17.0)
[2017-10-26] MEDS: DULOXETINE HCL 30 MG CAPSULE.DR PO SCH ×2 (10:13→21:40)
[2017-10-26] MEDS: MORPHINE SULFATE SR 100 MG TABLET PO SCH ×2 (10:13→21:40)
[2017-10-26] MEDS: ENOXAPARIN SODIUM INJ 40 MG/0.4 ML DISP.SYRIN SUBCUT SCH (10:13)
[2017-10-26] MEDS: FINASTERIDE 5 MG TABLET PO SCH (10:14)
[2017-10-26] MEDS: CEFTRIAXONE 2 GM/D5W RTU 2 GM/50 ML RTUPB IV SCH (10:14)
[2017-10-26] MEDS: NORMAL SALINE 10 ML SDV (SCHEDULED) IV SCH ×2 (10:15→21:43)
--- NOTE | 2017-10-26 11:38 | PDOC PROGRESS REPORT ---
Subjective Progress Note for:: 10/26/17 Subjective:: No acute distress. Staff reports dressing changes without incident. Exudate appears to be tapering off Reason For Visit: DKA, SEPSIS Physical Exam Vital Signs: Temp Pulse Resp BP Pulse Ox 97.3 F 91 11 L 116/76 98 10/26/17 07:50 10/26/17 07:50 10/26/17 07:50 10/26/17 07:50 10/26/17 07:50 Intake & Output 10/25/17 10/26/17 10/27/17 06:59 06:59 06:59 Intake Total 1130 1847 Output Total 1700 3550 Balance -570 -1703 Weight 55.8 kg 53.4 kg General appearance: PRESENT: no acute distress, other - Cachectic, chronically ill-appearing Respiratory exam: PRESENT: clear to auscultation daija Cardiovascular exam: PRESENT: RRR GI/Abdominal exam: PRESENT: soft Extremities exam: PRESENT: other - Significant atrophy Musculoskeletal exam: PRESENT: normal inspection Neurological exam: PRESENT: alert Psychiatric exam: PRESENT: flat affect Additional comments: Sacral wound VAC in place. Inguinal dressing has not been changed today, no exudate was visible through the dressing -per surgery Results Laboratory Results: 10/26/17 04:45 10/25/17 14:21 10/25/17 10/26/17 10/26/17 14:21 04:45 04:45 WBC 16.4 H RBC 3.04 L Hgb 7.9 L Hct 23.9 L MCV 79 L MCH 25.9 L MCHC 32.9 RDW 19.1 H Plt Count 867 H Retic Count (auto) 2.78 Absolute Retic 0.085 Sodium 136.9 L Potassium 4.1 Chloride 97 L Carbon Dioxide 32 H Anion Gap 8 BUN 10 Creatinine 0.65 Est GFR ( Amer) > 60 Est GFR (Non-Af Amer) > 60 Glucose 119 H Calcium 10.4 H Phosphorus 5.2 H Magnesium 1.5 L Iron < 10.1 L Albumin 2.6 L 08/24/17 08/24/17 08/25/17 18:00 22:00 05:15 Creatine Kinase 140 117 82 CK-MB (CK-2) Troponin I NT-Pro-B Natriuret Pep 09/02/17 09/02/17 09/03/17 17:45 17:45 05:35 Creatine Kinase 50 L CK-MB (CK-2) 0.40 Troponin I 0.027 NT-Pro-B Natriuret Pep 4690 H Impressions: Thoracic Spine CT 08/26/17 08:00 IMPRESSION: No acute findings in the thoracic spine. Chest X-Ray 10/09/17 00:00 IMPRESSION: NO ACUTE RADIOGRAPHIC FINDING IN THE CHEST. Abdomen/Pelvis CT 10/09/17 13:59 IMPRESSION: NO SIGNIFICANT OR ACUTE FINDING IN THE ABDOMEN OR PELVIS ON CT SCAN WITH IV CONTRAST. SURGICAL CHANGES WITH PERIUMBILICAL COLOSTOMY AND PRIOR SPLENECTOMY. SMALL CORTICAL CYST IN THE LEFT KIDNEY. SOFT TISSUE DEFECT IN THE LEFT BUTTOCKS, INCOMPLETELY IMAGED. Guidance Fluoroscopy 10/18/17 00:00 IMPRESSION: SUCCESSFUL PLACEMENT OF A 5 FR DUAL LUMEN 24 CM PICC IN THE RIGHT BASILIC VEIN. Interventional Vascular Procedure 10/18/17 00:00 IMPRESSION: SUCCESSFUL PLACEMENT OF A 5 FR DUAL LUMEN 24 CM PICC IN THE RIGHT BASILIC VEIN. PICC Line Insertion 10/18/17 00:00 IMPRESSION: SUCCESSFUL PLACEMENT OF A 5 FR DUAL LUMEN 24 CM PICC IN THE RIGHT BASILIC VEIN. Assessment & Plan - Diagnosis (1) Abscess or cellulitis of perineum Is this a current diagnosis for this admission?: Yes Plan: We will need to continue twice daily dressing changes with repacking per surgery. I do not think he will qualify for an LTAC, tomorrow is his last day of antibiotics. Following that what he needs is nursing for dressing changes and rehab for strengthening. Discussed with the inventory control planner (2) Iron deficiency anemia Qualifiers: Iron deficiency anemia type: unspecified iron deficiency Qualified Code(s) : D50.9 - Iron deficiency anemia, unspecified Is this a current diagnosis for this admission?: Yes Plan: Will replace with Venofer while he is still in the hospital he will need at least 90 days of replacement after discharge. (3) Chronic pain Qualifiers: Chronic pain type: chronic pain syndrome Qualified Code(s): G89.4 - Chronic pain syndrome Is this a current diagnosis for this admission?: Yes Plan: Continue current medications (4) Chronic prescription opiate use Is this a current diagnosis for this admission?: Yes (5) Sacral decubitus ulcer, stage III Is this a current diagnosis for this admission?: Yes Plan: Continue wound VAC. Stable (6) Malnutrition of moderate degree Is this a current diagnosis for this admission?: Yes
[2017-10-26] MEDS ORDERED: IRON SUCROSE COMPLEX INJ/PF 100 MG/5 ML SDV IV ONE (14:00)
[2017-10-26] MEDS: FENTANYL 50 MCG/HR PATCH.TD72 TD SCH (14:50)
[2017-10-26] MEDS: TAMSULOSIN HCL 0.4 MG CAP.SR.24H PO SCH (21:39)
[2017-10-26] MEDS: QUETIAPINE FUMARATE 25 MG TABLET PO SCH (21:40)
[2017-10-27] MEDS: OXYCODONE-ACETAMINOPHEN 5-325 MG TABLET PO PRN ×2 (03:57→12:07)
[2017-10-27] MEDS: OXYCODONE HCL IR 5 MG TABLET PO PRN ×2 (03:57→12:08)
[2017-10-27] MEDS: PREGABALIN 50 MG CAPSULE PO SCH ×2 (06:18→13:29)
[2017-10-27] MEDS: ENOXAPARIN SODIUM INJ 40 MG/0.4 ML DISP.SYRIN SUBCUT SCH (09:13)
[2017-10-27] MEDS: DULOXETINE HCL 30 MG CAPSULE.DR PO SCH (09:13)
[2017-10-27] MEDS: MORPHINE SULFATE SR 100 MG TABLET PO SCH (09:14)
[2017-10-27] MEDS: FINASTERIDE 5 MG TABLET PO SCH (09:14)
[2017-10-27] MEDS: NORMAL SALINE 10 ML SDV (SCHEDULED) IV SCH (09:15)
[2017-10-27] MEDS ORDERED: IRON SUCROSE COMPLEX INJ/PF 100 MG/5 ML SDV IV SCH (10:00)
--- NOTE | 2017-10-27 11:20 | PDOC TRANSFER SUMMARY ---
General - Admit/Disc Date/PCP Admission Date/Primary Care Provider: 08/24/17 16:51 DELROY CROUCH, DO Discharge Date: 10/27/17 - Discharge Diagnosis (1) Abscess or cellulitis of perineum Is this a current diagnosis for this admission?: Yes Summary: We will need to continue twice daily dressing changes with repacking per surgery. He is completed a full course of antibiotics. Following that what he needs is nursing for dressing changes and rehab for strengthening. (2) Iron deficiency anemia Is this a current diagnosis for this admission?: Yes Summary: Replaced with Corinne for the last 2 days, continue oral replacement for at least 90 days (3) Chronic pain Is this a current diagnosis for this admission?: Yes (4) Chronic prescription opiate use Is this a current diagnosis for this admission?: Yes Summary: Medications were adjusted balancing patient comfort and his ability to participate in rehab (5) Sacral decubitus ulcer, stage III Is this a current diagnosis for this admission?: Yes Summary: Continue wound VAC (6) Malnutrition of moderate degree Is this a current diagnosis for this admission?: Yes - Additional Information Resuscitation Status: Full Code Discharge Diet: Diabetic Discharge Activity: Activity As Tolerated Prescriptions: Ascorbic Acid [Vitamin C 500 mg Tablet] 500 mg PO BIDPCBS #60 tablet Fentanyl [Duragesic 50 Mcg/Hr Transdermal Patch] 1 each TD Q72H #10 patch.td72 Ferrous Sulfate [Feosol] 325 mg PO BIDPCBS #60 tablet Morphine Sulfate [Ms-Contin Sr 100 mg Tablet] 100 mg PO Q12 #60 tablet.sa Oxycodone HCl [Oxy-Ir 5 mg Tablet] 5 mg PO Q4HP PRN #30 tablet PRN Reason: Oxycodone HCl/Acetaminophen [Percocet 5-325 mg Tablet] 1 tab PO Q4HP PRN #30 tablet PRN Reason: Home Medications: Duloxetine HCl [Cymbalta] 60 mg PO Q12 08/24/17 Ondansetron HCl [Zofran 8 mg Tablet] 8 mg PO Q8HP PRN 08/24/17 Acetaminophen [Tylenol 325 mg Tablet] 650 mg PO Q6HP PRN tablet 10/27/17 Ascorbic Acid [Vitamin C 500 mg Tablet] 500 mg PO BIDPCBS #60 tablet 10/27/17 Fentanyl [Duragesic 50 Mcg/Hr Transdermal Patch] 1 each TD Q72H #10 patch.td72 10/27/17 Ferrous Sulfate [Feosol] 325 mg PO BIDPCBS #60 tablet 10/27/17 Finasteride [Proscar 5 mg Tablet] 5 mg PO DAILY tablet 10/27/17 Ipratropium/Albuterol Sulfate [Duoneb 3 ml Ampul] 3 ml NEB RTQ4HP PRN vial.neb 10/27/17 Morphine Sulfate [Ms-Contin Sr 100 mg Tablet] 100 mg PO Q12 #60 tablet.sa Oxycodone HCl [Oxy-Ir 5 mg Tablet] 5 mg PO Q4HP PRN #30 tablet 10/27/17 Oxycodone HCl/Acetaminophen [Percocet 5-325 mg Tablet] 1 tab PO Q4HP PRN #30 tablet 10/27/17 Pregabalin [Lyrica 50 mg Capsule] 150 mg PO Q8 capsule 10/27/17 Quetiapine Fumarate [Seroquel 25 mg Tablet] 25 mg PO QHS tablet 10/27/17 Tamsulosin HCl [Flomax 0.4 mg Cap.sr] 0.4 mg PO QHS cap.sr.24h 10/27/17 History of Present Illness Admission Date/PCP: 08/24/17 16:51 DELROY CROUCH DO Patient complains of: Unarousable History of Present Illness: Mr. Sarbjit Borges is a 51-year-old male who was brought in today by EMS. The patient is awake, but not coherent. When EMS found him he was severely hypothermic. He was hyperglycemic. He would only respond to painful stimuli. He was brought into the emergency department his initial temperature was 91F. Patient does have an ostomy. No bag was over the ostomy site. He was covered in stool. The emergency room staff performed a basic exam and while cleaning the patient they noted that he has pus coming out of the left groin and scrotal area. This extends around to the buttock on the left side. In addition, the patient appears to have a pressure ulcer from a moy on his back. He also has a linear skin ulceration on the spine at approximately T8 through T11. I cannot get any history from the patient. A sister came with him, but, she was not available for interview at this time. In the emergency department the patient was given 10 units of IV insulin and started on normal saline. He will be converted to the DKA protocol. He is also been started on IV Zosyn and vancomycin. General surgery was consulted. The plan will be for probable operative intervention this evening to explore the abscess in the left groin. All data is taken from hospital personnel and prior entries in the medical record. Current medication list is unknown. Hospital Course Hospital Course: Hospital course: The patient was admitted to the intensive care unit. He will be placed on a DKA protocol. He was continued on bear hugger therapy for his severe hypothermia which is likely secondary to his severe cachexia and exposure. Once he becomes stable we can address his severe protein calorie malnutrition. Surgery was emergently consulted. And they took him to the OR for drainage of the abscess related to chronic severe perineal height hidradenitis. He was continued on Zosyn and vancomycin pending cultures. Following surgery was not able to be extubated and the vent is managed by pulmonology. He was taken back to the OR for a reexploration and further debridement, and a [place] drain was left in place. Infectious disease consultation was obtained and medications were adjusted according to their recommendations. He was extubated on the and has remained stable from a respiratory standpoint since then. He has a stage IV sacral decubitus ulcer that has been debrided at least twice and is stable on a wound VAC which will be continued. He has been having his inguinal lesion repacked twice daily. He still has a fair amount of exudative discharge and this will require close monitoring as it has had to be reexplored 3 times this admission. He is completed his course of antibiotics. As noted, I am concerned about recurrence of infection and I would strongly prefer for him to go to a higher level of care than a [facility] for wound management. He very much needs rehab is essentially bedbound. He has been accepted at an LTAC and will be transferred there today. Physical Exam Vital Signs: Temp Pulse Resp BP Pulse Ox 98.4 F 76 16 137/82 H 100 10/27/17 07:45 10/27/17 07:45 10/27/17 07:45 10/27/17 07:45 10/27/17 07:45 Intake & Output 10/26/17 10/27/17 10/28/17 06:59 06:59 06:59 Intake Total 1847 2531 Output Total 3550 8915 Balance -1703 -144 Weight 53.4 kg 53.6 kg General appearance: PRESENT: no acute distress Exam: Chronically ill-appearing, cachectic, significant muscular atrophy Respiratory exam: PRESENT: clear to auscultation daija Cardiovascular exam: PRESENT: RRR GI/Abdominal exam: PRESENT: soft Musculoskeletal exam: PRESENT: other - Diffuse atrophy Neurological exam: PRESENT: awake Psychiatric exam: PRESENT: flat affect Additional comments: Sacral decubitus covered in a wound VAC that appears to be functioning. Inguinal lesion is presently dressed no exudate is noted through the dressing. I did not inspect the lesion itself. Results Laboratory Results: 10/26/17 04:45 10/25/17 14:21 08/24/17 08/24/17 08/25/17 18:00 22:00 05:15 Creatine Kinase 140 117 82 CK-MB (CK-2) Troponin I NT-Pro-B Natriuret Pep 09/02/17 09/02/17 09/03/17 17:45 17:45 05:35 Creatine Kinase 50 L CK-MB (CK-2) 0.40 Troponin I 0.027 NT-Pro-B Natriuret Pep 4690 H Impressions: Thoracic Spine CT 08/26/17 08:00 IMPRESSION: No acute findings in the thoracic spine. Chest X-Ray 10/09/17 00:00 IMPRESSION: NO ACUTE RADIOGRAPHIC FINDING IN THE CHEST. Abdomen/Pelvis CT 10/09/17 13:59 IMPRESSION: NO SIGNIFICANT OR ACUTE FINDING IN THE ABDOMEN OR PELVIS ON CT SCAN WITH IV CONTRAST. SURGICAL CHANGES WITH PERIUMBILICAL COLOSTOMY AND PRIOR SPLENECTOMY. SMALL CORTICAL CYST IN THE LEFT KIDNEY. SOFT TISSUE DEFECT IN THE LEFT BUTTOCKS, INCOMPLETELY IMAGED. Guidance Fluoroscopy 10/18/17 00:00 IMPRESSION: SUCCESSFUL PLACEMENT OF A 5 FR DUAL LUMEN 24 CM PICC IN THE RIGHT BASILIC VEIN. Interventional Vascular Procedure 10/18/17 00:00 IMPRESSION: SUCCESSFUL PLACEMENT OF A 5 FR DUAL LUMEN 24 CM PICC IN THE RIGHT BASILIC VEIN. PICC Line Insertion 10/18/17 00:00 IMPRESSION: SUCCESSFUL PLACEMENT OF A 5 FR DUAL LUMEN 24 CM PICC IN THE RIGHT BASILIC VEIN. Transfer Plan - Disposition Transfer Plan: Transfer to LTAC Qualifiers - * PATEINT BEING DISCHARGED WITH ANY OF THE FOLLOWING DIAGNOSIS?: No
[2017-10-27 14:39] VITALS: BP 133/85
== END 2017-10-27 14:39 | DRG 853 ==
LOC: ER 14:24 → EH 16:51 → ICU 21:30 → 3N 09-07 19:42
PROVIDERS: ADMIT Emergency Medicine; ATTEND Emergency Medicine
PROC: 05HM33Z Insertion of Infusion Device into Right Internal Jugular Vein, Percutaneous Approach (ICD-10-PCS; 2017-08-24)
PROC: 0Y9630Z Drainage of Left Inguinal Region with Drainage Device, Percutaneous Approach (ICD-10-PCS; 2017-08-24)
PROC: 0Y9 Anatomical Regions, Lower Extremities, Drainage (ICD-10-PCS; 2017-08-24)
PROC: 0BH17EZ Insertion of Endotracheal Airway into Trachea, Via Natural or Artificial Opening (ICD-10-PCS; 2017-08-25)
PROC: 3E0F73Z Introduction of Anti-inflammatory into Respiratory Tract, Via Natural or Artificial Opening (ICD-10-PCS; 2017-08-25)
PROC: 0HBAXZZ Excision of Inguinal Skin, External Approach (ICD-10-PCS; 2017-08-25)
PROC: 0HBJXZZ Excision of Left Upper Leg Skin, External Approach (ICD-10-PCS; 2017-08-25)
PROC: 03HY32Z Insertion of Monitoring Device into Upper Artery, Percutaneous Approach (ICD-10-PCS; 2017-08-25)
PROC: 5A1955Z Respiratory Ventilation, Greater than 96 Consecutive Hours (ICD-10-PCS; principal; 2017-08-25 18:30)
PROC: 5A09357 Assistance with Respiratory Ventilation, Less than 24 Consecutive Hours, Continuous Positive Airway Pressure (ICD-10-PCS; 2017-09-02)
PROC: 02HV33Z Insertion of Infusion Device into Superior Vena Cava, Percutaneous Approach (ICD-10-PCS; 2017-09-02)
PROC: B548ZZA Ultrasonography of Superior Vena Cava, Guidance (ICD-10-PCS; 2017-09-02)
PROC: 02HV33Z Insertion of Infusion Device into Superior Vena Cava, Percutaneous Approach (ICD-10-PCS; 2017-09-13)
PROC: 3E04329 Introduction of Other Anti-infective into Central Vein, Percutaneous Approach (ICD-10-PCS; 2017-09-13)
PROC: 30233N1 Transfusion of Nonautologous Red Blood Cells into Peripheral Vein, Percutaneous Approach (ICD-10-PCS; 2017-09-24)
PROC: 0HD6XZZ Extraction of Back Skin, External Approach (ICD-10-PCS; 2017-09-24)
PROC: 0KBM0ZZ Excision of Perineum Muscle, Open Approach (ICD-10-PCS; 2017-09-25)
PROC: 30233N1 Transfusion of Nonautologous Red Blood Cells into Peripheral Vein, Percutaneous Approach (ICD-10-PCS; 2017-10-01)
PROC: 0JB70ZZ Excision of Back Subcutaneous Tissue and Fascia, Open Approach (ICD-10-PCS; 2017-10-10)
PROC: 02HV33Z Insertion of Infusion Device into Superior Vena Cava, Percutaneous Approach (ICD-10-PCS; 2017-10-18)
PROC: B5181ZA Fluoroscopy of Superior Vena Cava using Low Osmolar Contrast, Guidance (ICD-10-PCS; 2017-10-18)
PROC: B548ZZA Ultrasonography of Superior Vena Cava, Guidance (ICD-10-PCS; 2017-10-18)
PROC: 0HDAXZZ Extraction of Inguinal Skin, External Approach (ICD-10-PCS; 2017-10-19)
PROC: 0HDJXZZ Extraction of Left Upper Leg Skin, External Approach (ICD-10-PCS; 2017-10-19)
DX: A41.9 Sepsis, unspecified organism (principal); L89.153 Pressure ulcer of sacral region, stage 3; R65.21 Severe sepsis with septic shock; E43 Unspecified severe protein-calorie malnutrition; J96.01 Acute respiratory failure with hypoxia; J18.1 Lobar pneumonia, unspecified organism; J96.02 Acute respiratory failure with hypercapnia; E10.11 Type 1 diabetes mellitus with ketoacidosis with coma; E44.0 Moderate protein-calorie malnutrition; Z68.1 Body mass index [BMI] 19.9 or less, adult; K50.90 Crohn's disease, unspecified, without complications; L02.214 Cutaneous abscess of groin; G93.1 Anoxic brain damage, not elsewhere classified; E87.0 Hyperosmolality and hypernatremia; S37.39XA Other injury of urethra, initial encounter; D50.9 Iron deficiency anemia, unspecified; L89.102 Pressure ulcer of unspecified part of back, stage 2; I10 Essential (primary) hypertension; Z78.1 Physical restraint status; B95.62 Methicillin resistant Staphylococcus aureus infection as the cause of diseases classified elsewhere; J45.909 Unspecified asthma, uncomplicated; M19.90 Unspecified osteoarthritis, unspecified site; F32.9 Major depressive disorder, single episode, unspecified; Z60.2 Problems related to living alone; L89.220 Pressure ulcer of left hip, unstageable; I48.91 Unspecified atrial fibrillation; L73.2 Hidradenitis suppurativa; E83.52 Hypercalcemia; Z74.01 Bed confinement status; E07.81 Sick-euthyroid syndrome; I95.89 Other hypotension; B96.20 Unspecified Escherichia coli [E. coli] as the cause of diseases classified elsewhere; B95.2 Enterococcus as the cause of diseases classified elsewhere; E87.6 Hypokalemia; D63.8 Anemia in other chronic diseases classified elsewhere; G89.4 Chronic pain syndrome; E10.42 Type 1 diabetes mellitus with diabetic polyneuropathy; X58.XXXA Exposure to other specified factors, initial encounter; I25.2 Old myocardial infarction; Z79.4 Long term (current) use of insulin; Z79.891 Long term (current) use of opiate analgesic; Z79.899 Other long term (current) drug therapy; Z88.3 Allergy status to other anti-infective agents; Z88.8 Allergy status to other drugs, medicaments and biological substances; Z93.3 Colostomy status; D72.823 Leukemoid reaction; D63.1 Anemia in chronic kidney disease; N18.9 Chronic kidney disease, unspecified; E10.22 Type 1 diabetes mellitus with diabetic chronic kidney disease; R31.21 Asymptomatic microscopic hematuria; E83.42 Hypomagnesemia; B96.1 Klebsiella pneumoniae [K. pneumoniae] as the cause of diseases classified elsewhere
CPT/HCPCS: 00300; 00400; 31500; 36415; 36430; 36569; 51702; 71045; 72129; 74177; 76937; 77001; 80048; 80053; 80069; 80074; 80076; 80162; 80202; 80307; 81001; 82140; 82272; 82306; 82310; 82330; 82397; 82550; 82553; 82565; 82607; 82728; 82746; 82784; 82803; 82947; 82962; 83036; 83540; 83605; 83735; 83880; 83970; 84100; 84132; 84134; 84439; 84443; 84481; 84484; 85025; 85027; 85045; 85610; 85652; 85730; 86140; 86701; 86850; 86900; 86901; 86920; 87040; 87070; 87075; 87077; 87086; 87186; 87205; 87493; 88184; 88185; 88304; 88305; 93005; 93010; 93306; 94002; 94003; 96365; 96368; 99291; A6266; C1751; C1769; G8978-GP; G8979-GP; G8987-GO; G8988-GO; J0131; J0330; J0690; J0692; J0696; J1160; J1170; J1642; J1650; J1756; J1815; J2185; J2250; J2370; J2405; J2543; J2704; J2997; J3010; J3370; J3475; J3480; J3490; J7030; J7040; J7050; J7060; J7120; J7512; J7620; P9016; S0028; S0119

== ENCOUNTER 2017-12-25 12:16 | Emergency (ER) | payer MEDICARE, MEDICAID ==
[2017-12-25] MEDS ORDERED: HYDROMORPHONE HCL INJ/PF 2 MG/ML AMPULE IV ONE ×2 (13:21→15:48)
--- NOTE | 2017-12-25 13:31 | ER Document Report ---
ED General - General Chief Complaint: Abdominal Pain Stated Complaint: UNMANAGABLE PAIN Time Seen by Provider: 12/25/17 12:50 Mode of Arrival: Medic Information source: Patient, Transfer Record Notes: Patient presents complaining of chronic pain all over his body and concern about a herniated stoma. Patient states that his pain is not any different than normal although he is just tired of having pain and wants to have it addressed. Patient states that his stoma has been herniated for the past month and has not changed in appearance. Patient has had normal drainage to his colostomy bag. Patient is currently a resident at [facility] for rehab due to bilateral foot drop and complicated medical course due to hidradenitis suppurativa and Crohn's. TRAVEL OUTSIDE OF THE [place] IN LAST 30 DAYS: No - HPI Onset: Other - Chronic pain Onset/Duration: Persistent Quality of pain: Achy Pain Level: 5 Associated symptoms: Nausea. denies: Chest pain, Nonproductive cough, Productive cough, Diarrhea, Fever, Vomiting Exacerbated by: Denies Relieved by: Denies Similar symptoms previously: Yes Recently seen / treated by doctor: No - Related Data Allergies/Adverse Reactions: atropine sulfate [From Lomotil] Allergy (Verified 02/21/17 13:49) diphenoxylate HCl [From Lomotil] Allergy (Verified 02/21/17 13:49) erythromycin base [Erythromycin Base] Allergy (Verified 02/21/17 13:49) paroxetine HCl [From Paxil] Allergy (Verified 02/21/17 13:49) sulfamethoxazole [From Bactrim] Allergy (Verified 02/21/17 13:49) trimethoprim [From Bactrim] Allergy (Verified 02/21/17 13:49) Past Medical History - General Information source: Patient - Social History Smoking Status: Never Smoker Frequency of alcohol use: None Drug Abuse: None Lives with: [facility] Family History: Other - Crohn's-sister Patient has suicidal ideation: No Patient has homicidal ideation: No - Past Medical History Cardiac Medical History: Reports: Hx Heart Attack - NOVEMBER 2014, Hx Hypertension Denies: Hx Coronary Artery Disease Pulmonary Medical History: Reports: Hx Asthma, Hx Pneumonia Denies: Hx Bronchitis, Hx COPD Neurological Medical History: Reports: Hx Seizures. Denies: Hx Cerebrovascular Accident Endocrine Medical History: Reports: Hx Diabetes Mellitus Type 2 Renal/ Medical History: Denies: Hx Peritoneal Dialysis GI Medical History: Reports: Hx Crohn's Disease Musculoskeltal Medical History: Reports Hx Arthritis Psychiatric Medical History: Reports: Hx Depression Past Surgical History: Reports: Hx Colostomy, Other - Multiple wound debridements over the last 2 months - Immunizations Hx Diphtheria, Pertussis, Tetanus Vaccination: Yes Review of Systems - Review of Systems Constitutional: No symptoms reported. denies: Fever, Recent illness EENT: No symptoms reported Cardiovascular: No symptoms reported. denies: Chest pain Respiratory: No symptoms reported. denies: Cough, Short of breath Gastrointestinal: Abdominal pain, Nausea, Other - Herniated stoma to colostomy. denies: Vomiting Genitourinary: No symptoms reported. denies: Dysuria Male Genitourinary: No symptoms reported Musculoskeletal: Back pain, Muscle pain - Chronic generalized pain Skin: Other - Chronic wound to the perianal area Hematologic/Lymphatic: No symptoms reported Neurological/Psychological: No symptoms reported. denies: Headaches Physical Exam - Vital signs Vitals: Resp BP Pulse Ox 15 129/89 H 99 12/25/17 12:24 12/25/17 12:24 12/25/17 12:24 - General General appearance: Appears well, Alert In distress: None - HEENT Head: Normocephalic Eyes: Normal Conjunctiva: Normal Nasal: Normal Mouth/Lips: Normal Mucous membranes: Normal Neck: Normal, Supple. No: Lymphadenopathy - Respiratory Respiratory status: No respiratory distress Chest status: Nontender Breath sounds: Normal Chest palpation: Normal - Cardiovascular Rhythm: Regular Heart sounds: S1 appreciated, S2 appreciated Murmur: No - Abdominal Inspection: Other - Herniated stoma the colostomy Distension: No distension Bowel sounds: Normal Tenderness: Tender - Generalized tenderness the abdomen Organomegaly: No organomegaly - Back Back: Tender - Generalized tenderness throughout entire back - Extremities General upper extremity: Normal inspection, Normal ROM General lower extremity: Other - Bilateral foot drop - Neurological Neuro grossly intact: Yes Cognition: Normal - Psychological Associated symptoms: Normal affect, Normal mood - Skin Skin Temperature: Warm Skin Moisture: Dry Skin Color: Other - Dressings covering sacral and inguinal chronic wound Course - Re-evaluation Re-evalutation: 12/25/17 15:[address] Morel, Dr. Morel to bedside for examination. Patient's stoma able to be easily reduced. Patient continues to complain of chronic pain symptoms that have not changed but that he is just tired of dealing with his chronic pain symptoms. Patient states that the stoma hernia has not changed in the past month. Dr. Morel advises consultation with the physician on-call at [facility] to discuss plan of care with them. No additional testing advised at this time. 12/25/17 15:[address] Paulino who is on-call for [facility] and rehab. Dr. Paulino was not aware that patient had been transferred to the hospital for evaluation. States that patient has had a history of chronic pain and opioid use and has had some manipulative behaviors and is uncertain if the patient may have called EMS himself to have be transferred. States that patient is in the process of following up with his pain management provider to address his chronic pain. 12/25/17 15:43 Patient does have elevated white blood cell count of 16,000, although appears to have chronically elevated white blood cell count as compared to previous ER visits. Patient without fever. Patient does have chronic healing wounds to sacral area, no surrounding erythema, no obvious purulent drainage, no concern for worsening infection at this time. - Vital Signs Vital signs: Temp Pulse Resp BP Pulse Ox 98.0 F 8 L 125/83 99 12/25/17 12:32 12/25/17 16:01 12/25/17 16:00 12/25/17 16:01 - Laboratory Result Diagrams: 12/25/17 13:00 12/25/17 13:00 Laboratory results interpreted by me: 12/25/17 12/25/17 12/25/17 12:23 13:00 13:00 WBC 16.3 H Hgb 12.8 L MCH 25.4 L MCHC 31.9 L RDW 21.1 H Basophils % 2.3 H Absolute Lymphocytes 6.1 H Absolute Monocytes 2.0 H Absolute Eosinophils 0.8 H Absolute Basophils 0.4 H Glucose 111 H POC Glucose 161 H Alkaline Phosphatase 263 H Urine Ascorbic Acid 12/25/17 15:10 WBC Hgb MCH MCHC RDW Basophils % Absolute Lymphocytes Absolute Monocytes Absolute Eosinophils Absolute Basophils Glucose POC Glucose Alkaline Phosphatase Urine Ascorbic Acid 40 H 12/25/17 15:43 Labs- Entire Visit 12/25/17 12/25/17 12/25/17 12:23 13:00 13:00 WBC 16.3 H RBC 5.07 Hgb 12.8 L Hct 40.3 MCV 80 MCH 25.4 L MCHC 31.9 L RDW 21.1 H Plt Count 343 Seg Neutrophils % 43.1 Lymphocytes % 37.2 Monocytes % 12.5 Eosinophils % 4.9 Basophils % 2.3 H Absolute Neutrophils 7.0 Absolute Lymphocytes 6.1 H Absolute Monocytes 2.0 H Absolute Eosinophils 0.8 H Absolute Basophils 0.4 H Sodium 144.5 Potassium 3.9 Chloride 104 Carbon Dioxide 29 Anion Gap 12 BUN 20 Creatinine 0.80 Est GFR ( Amer) > 60 Est GFR (Non-Af Amer) > 60 Glucose 111 H POC Glucose 161 H Calcium 10.1 Total Bilirubin 0.3 Direct Bilirubin 0.3 Neonat Total Bilirubin Not Reportable Neonat Direct Bilirubin Not Reportable Neonat Indirect Bili Not Reportable AST 55 ALT 70 Alkaline Phosphatase 263 H Total Protein 8.2 Albumin 3.7 Lipase Urine Color Urine Appearance Urine pH Ur Specific [place] Urine Protein Urine Glucose (UA) Urine Ketones Urine Blood Urine Nitrite Urine Bilirubin Urine Urobilinogen Ur Leukocyte Esterase Urine WBC (Auto) Urine RBC (Auto) U Hyaline Cast (Auto) Squamous Epi Cells Auto Urine Mucus (Auto) Urine Ascorbic Acid 12/25/17 12/25/17 13:00 15:10 WBC RBC Hgb Hct MCV MCH MCHC RDW Plt Count Seg Neutrophils % Lymphocytes % Monocytes % Eosinophils % Basophils % Absolute Neutrophils Absolute Lymphocytes Absolute Monocytes Absolute Eosinophils Absolute Basophils Sodium Potassium Chloride Carbon Dioxide Anion Gap BUN Creatinine Est GFR ( Amer) Est GFR (Non-Af Amer) Glucose POC Glucose Calcium Total Bilirubin Direct Bilirubin Neonat Total Bilirubin Neonat Direct Bilirubin Neonat Indirect Bili AST ALT Alkaline Phosphatase Total Protein Albumin Lipase 29.8 Urine Color YELLOW Urine Appearance CLEAR Urine pH 5.0 Ur Specific [place] 1.020 Urine Protein NEGATIVE Urine Glucose (UA) NEGATIVE Urine Ketones NEGATIVE Urine Blood NEGATIVE Urine Nitrite NEGATIVE Urine Bilirubin NEGATIVE Urine Urobilinogen NEGATIVE Ur Leukocyte Esterase NEGATIVE Urine WBC (Auto) 1 Urine RBC (Auto) 0 U Hyaline Cast (Auto) 7 Squamous Epi Cells Auto <1 Urine Mucus (Auto) RARE Urine Ascorbic Acid 40 H Discharge - Discharge Clinical Impression: Opioid dependence in controlled environment Crohns disease Qualifiers: Gastrointestinal tract location: unspecified location Digestive disease complication type: unspecified complication Qualified Code(s): K50.919 - Crohn' s disease, unspecified, with unspecified complications Chronic pain Qualifiers: Chronic pain type: other chronic pain Qualified Code(s): G89.29 - Other chronic pain Condition: Stable Disposition: SNF-Other Instructions: Chronic Pain Control ([facility]) Additional Instructions: Return immediately for any new or worsening symptoms Followup with your primary care provider, call tomorrow to make a followup appointment Follow-up with your pain management provider for further evaluation. Dr. Paulino can help set this referral and follow-up appointment for you. Referrals: DELROY CROUCH, [Primary Care Provider] - Follow up as needed
[2017-12-25 13:49] LABS: ABSOLUTE BASOPHILS # (AUTO) 0.4 10^3/uL (0.0-0.2); ABSOLUTE EOSINOPHILS # (AUTO) 0.8 10^3/uL (0.0-0.6); ABSOLUTE LYMPHOCYTES (AUTO) 6.1 10^3/uL (0.5-4.7); BASOPHILS % (AUTO) 2.3 % (0-2); EOSINOPHILS % (AUTO) 4.9 % (0-6); HEMATOCRIT 40.3 % (37.9-51.0); HEMOGLOBIN 12.8 g/dL (13.5-17.0); LYMPHOCYTES % (AUTO) 37.2 % (13-45); MEAN CORPUSCULAR HEMOGLOBIN 25.4 pg (27.0-33.4); MEAN CORPUSCULAR HGB CONC 31.9 g/dL (32.0-36.0); MEAN CORPUSCULAR VOLUME 80 fl (80-97); MONOCYTES % (AUTO) 12.5 % (3-13); PLATELET COUNT 343 10^3/uL (150-450); RED BLOOD COUNT 5.07 10^6/uL (4.35-5.55); RED CELL DISTRIBUTION WIDTH 21.1 % (11.5-14.0); SEGMENTED NEUTROPHILS % (AUTO) 43.1 % (42-78); TOTAL CELLS COUNTED % (AUTO) 100 %; WHITE BLOOD COUNT 16.3 10^3/uL (4.0-10.5)
[2017-12-25 13:53] LABS: ALANINE AMINOTRANSFERASE 70 U/L (21-72); ALBUMIN 3.7 g/dL (3.5-5.0); ALKALINE PHOSPHATASE 263 U/L (38-126); ANION GAP 12 (5-19); ASPARTATE AMINO TRANSFERASE 55 U/L (17-59); BILIRUBIN,DIRECT 0.3 mg/dL (0.0-0.4); BILIRUBIN,TOTAL 0.3 mg/dL (0.2-1.3); BLOOD UREA NITROGEN 20 mg/dL (7-20); CALCIUM 10.1 mg/dL (8.4-10.2); CARBON DIOXIDE 29 mmol/L (22-30); CHLORIDE 104 mmol/L (98-107); GLUCOSE 111 mg/dL (75-110); POTASSIUM 3.9 mmol/L (3.6-5.0); SODIUM 144.5 mmol/L (137-145); TOTAL PROTEIN 8.2 g/dL (6.3-8.2)
[2017-12-25 14:44] LABS: LIPASE 29.8 U/L (23-300)
[2017-12-25 15:30] LABS: APPEARANCE,URINE CLEAR; BILIRUBIN,URINE NEGATIVE (NEGATIVE); COLOR,URINE YELLOW; GLUCOSE, URINE NEGATIVE (NEGATIVE); KETONES,URINE NEGATIVE (NEGATIVE); LEUKOCYTE ESTERASE,URINE NEGATIVE (NEGATIVE); NITRITE,URINE NEGATIVE (NEGATIVE); PROTEIN,URINE NEGATIVE (NEGATIVE); UROBILINOGEN,URINE NEGATIVE mg/dL (<2.0)
[2017-12-25 15:43] VITALS: BP 125/83
== END 2017-12-25 16:29 ==
LOC: ER 12:16
DX: K50.919 Crohn's disease, unspecified, with unspecified complications (principal); F11.20 Opioid dependence, uncomplicated; G89.29 Other chronic pain; R10.9 Unspecified abdominal pain; R11.0 Nausea; E11.9 Type 2 diabetes mellitus without complications; Z88.3 Allergy status to other anti-infective agents; I25.2 Old myocardial infarction; Z93.3 Colostomy status
CPT/HCPCS: 96376; 99284; 96374; 36415; 82962; 83690; 85025; 80053; 81001; J1170

== ENCOUNTER 2018-01-23 10:22 | Day surgery (SDC) | payer MEDICARE, MEDICAID ==
[2018-01-19 10:29] LABS: HEMATOCRIT 41.8 % (37.9-51.0); MEAN CORPUSCULAR HEMOGLOBIN 25.8 pg (27.0-33.4); MEAN CORPUSCULAR HGB CONC 33.5 g/dL (32.0-36.0); MEAN CORPUSCULAR VOLUME 77 fl (80-97); PLATELET COUNT 453 10^3/uL (150-450); RED BLOOD COUNT 5.44 10^6/uL (4.35-5.55); RED CELL DISTRIBUTION WIDTH 21.3 % (11.5-14.0); WHITE BLOOD COUNT 19.3 10^3/uL (4.0-10.5)
--- NOTE | 2018-01-19 20:33 | EKG REPORT ---
SEVERITY:- OTHERWISE NORMAL ECG - SINUS TACHYCARDIA [Now Present] [Now Absent] BORDERLINE T ABNORMALITIES, INFERIOR LEADS [Now Absent] SINUS RHYTHM : Confirmed by: Sienna Tong MD 19-Jan-2018 20:31:31
[~2018-01-23 10:22] MED LIST changes: -KETOROLAC TROMETHAMINE 60 MG/2 ML SDV ONE; +LACTATED RINGERS 1000 ML IV PRN; +LIDOCAINE 0.5% INJ-PF (5 MG/ML) 50 ML SDV SUBCUT PRN; -LIDOCAINE 2% INJ-PF (20 MG/ML) 10 ML AMPUL ONE
--- NOTE | 2018-01-23 11:35 | RADIOLOGY REPORT (SQ) ---
EXAM DESCRIPTION: CHEST SINGLE VIEW COMPLETED DATE/TIME: 01/23/2018 11:28 am REASON FOR STUDY: Pre-operative COMPARISON: AP chest 10/09/2017 EXAM PARAMETERS: NUMBER OF VIEWS: One view. TECHNIQUE: Single frontal radiographic view of the chest acquired. RADIATION DOSE: NA LIMITATIONS: None. FINDINGS: LUNGS AND PLEURA: No opacities, masses or pneumothorax. No pleural effusion. MEDIASTINUM AND HILAR STRUCTURES: No masses. Contour normal. HEART AND VASCULAR STRUCTURES: Heart normal in size. Normal vasculature. BONES: No acute findings. HARDWARE: None in the chest. OTHER: No other significant finding. IMPRESSION: NO ACUTE RADIOGRAPHIC FINDING IN THE CHEST. TECHNICAL DOCUMENTATION: JOB ID: [id number] [employer]- All Rights Reserved Reading location - IP/workstation name: [email or web address]
[2018-01-23 12:05] LABS: ANION GAP 11 (5-19); BLOOD UREA NITROGEN 23 mg/dL (7-20); CARBON DIOXIDE 25 mmol/L (22-30); CHLORIDE 109 mmol/L (98-107); GLUCOSE 130 mg/dL (75-110); POTASSIUM 5.1 mmol/L (3.6-5.0); SODIUM 145.3 mmol/L (137-145)
[2018-01-23] MEDS ORDERED: KETAMINE HCL INJ 500 MG/10 ML VIAL ONE (12:12)
[2018-01-23] MEDS ORDERED: FENTANYL CITRATE INJ/PF 250 MCG/5 ML AMPULE ONE (12:12)
[2018-01-23] MEDS ORDERED: FENTANYL CITRATE INJ/PF 100 MCG/2 ML AMPUL ONE (12:12)
[2018-01-23] MEDS ORDERED: PROPOFOL INJ 200 MG/20 ML VIAL IV ONE (12:13)
[2018-01-23] MEDS ORDERED: MIDAZOLAM 2 MG/2 ML INJ ONE (12:13)
[2018-01-23] MEDS ORDERED: BUPIVACAINE HCL 0.25 % INJ/PF (2.5 MG/1 ML) 30 ML VIAL ONE (12:25)
[2018-01-23] MEDS ORDERED: COLLAGENASE CLOSTRIDIUM HIST. OINT 30 GM ONE (12:25)
[2018-01-23] MEDS ORDERED: SILVER SULFADIAZINE 1% CREAM 25 GM ONE (12:25)
[2018-01-23] MEDS ORDERED: LIDOCAINE 0.5% INJ-PF (5 MG/ML) 50 ML SDV ONE (12:25)
[2018-01-23] MEDS ORDERED: BACITRACIN INJ 50,000 UNIT VIAL ONE (12:26)
[2018-01-23] MEDS ORDERED: PROMETHAZINE HCL INJ 25 MG/1 ML VIAL IV PRN (13:31)
[2018-01-23] MEDS ORDERED: DIPHENHYDRAMINE HCL 50 MG/ML VIAL IV PRN (13:31)
[2018-01-23] MEDS ORDERED: FENTANYL CITRATE INJ/PF 100 MCG/2 ML AMPUL IV PRN ×3 (13:31)
--- NOTE | 2018-01-23 13:41 | Discharge Summary ---
Discharge Summary (SDC) - Discharge Final Diagnosis: #1 sacral decubitus ulcer. 2. Extensive hidradenitis of the perianal area and perineum. 3. Diabetes mellitus type 2. 4. History of hypoxic brain injury. 5. Diabetes mellitus type 2. 6. Tobacco use disorder. Date of Surgery: 01/23/18 Discharge Date: 01/23/18 Condition: Poor Treatment or Instructions: Discharge home [after recovery per ASU criteria]. Diet , diabetic as tolerated, when fully awake advance as tolerated. Activities within moderation encouraged. Follow up in wound clinic by appointment on Tuesday of this week. Call for appointment. Leave wounds [covered], [keep clean and dry, until wound clinic visit ]. Hold of on school/work [until evaluation in office]. Meds per med rec. May shower [in 48 hrs], [try to keep operated area as dry as possible]. Referrals: LAQUITA COKER DO [Primary Care Provider] - Respiratory Treatments at Home: Deep Breathing/Coughing Discharge Activity: Activity As Tolerated Report the Following to Your Physician Immediately: Unusual Bleeding
--- NOTE | 2018-01-23 13:44 | Operative Report ---
Operative Report DATE OF SURGERY: 01/23/18 PREOPERATIVE DIAGNOSIS: #1 sacral decubitus ulcer. 2. Extensive hidradenitis of the perianal area and perineum. 3. Diabetes mellitus type 2. 4. History of hypoxic brain injury. 5. Diabetes mellitus type 2. 6. Tobacco use disorder. POSTOPERATIVE DIAGNOSIS: #1 sacral decubitus ulcer. 2. Extensive hidradenitis of the perianal area and perineum. 3. Diabetes mellitus type 2. 4. History of hypoxic brain injury. 5. Diabetes mellitus type 2. 6. Tobacco use disorder. OPERATION: Sharp, surgical, excisional debridement of necrotic materials open wounds of the sacrum, left perineum and thigh. SURGEON: RADHA SOLORIO FRIEND OF THE COURT: None. ANESTHESIA: LMAC TISSUE REMOVED OR ALTERED: Necrotic any exuberant granulation tissue in wounds of the sacrum, left thigh and perineum. Aggregate dimensions of both 2 x 8 cm. COMPLICATIONS: None. ESTIMATED BLOOD LOSS: 10 mL. INTRAOPERATIVE FINDINGS: Of residual granulating somewhat necrotic wounds of the sacrum, left thigh and perineum. Aggregate dimensions about 2 x 8 cm. Some wound through the deep of the sacrum in particular. Remaining tissues seem fairly healthy with adequate granulation and no obvious necrosis. PROCEDURE: PROCEDURE: The [left foot ]was prepared with [Betadine] and draped out with sterile linen. After the"universal time-out", in which it was confirmed that the patient [did receive antibiotic], the procedure commenced. The patient was appropriately anesthetized. The wound was probe the wound was debrided of non viable tissue using large curettes and forceps with removal of loose debris, as well. The wound was irrigated with The wound was now irrigated with saline and [Surgicel] placed within it, dressed with 4 x 4's and the procedure concluded.
[2018-01-23] MEDS: FENTANYL CITRATE INJ/PF 100 MCG/2 ML AMPUL ONE ×3 (14:20→14:55)
[2018-01-23] MEDS ORDERED: LORAZEPAM INJ 2 MG/1 ML VIAL ONE (14:33)
[2018-01-23] MEDS ORDERED: LORAZEPAM INJ 2 MG/1 ML VIAL IV ONE (15:30)
[2018-01-23] MEDS ORDERED: OXYCODONE-ACETAMINOPHEN 5-325 MG TABLET ONE (16:04)
[2018-01-23] MEDS ORDERED: PHENYLEPHRINE HCL INJ/PF 10 MG/1 ML SDV ONE (16:54)
[2018-01-23] MEDS ORDERED: ONDANSETRON HCL INJ/PF 4 MG/2 ML SDV ONE (16:54)
[2018-01-23 17:10] VITALS: BP 114/83
== END 2018-01-23 17:00 | disposition home or self-care (01) ==
LOC: OROUT 10:22
PROVIDERS: ATTEND Surgery
DX: L89.159 Pressure ulcer of sacral region, unspecified stage (principal); L73.2 Hidradenitis suppurativa; Z79.01 Long term (current) use of anticoagulants; Z01.818 Encounter for other preprocedural examination; K50.90 Crohn's disease, unspecified, without complications; M19.90 Unspecified osteoarthritis, unspecified site; I10 Essential (primary) hypertension; F17.210 Nicotine dependence, cigarettes, uncomplicated; J44.9 Chronic obstructive pulmonary disease, unspecified; E11.9 Type 2 diabetes mellitus without complications; D64.9 Anemia, unspecified; N40.0 Benign prostatic hyperplasia without lower urinary tract symptoms; Z90.81 Acquired absence of spleen; Z88.8 Allergy status to other drugs, medicaments and biological substances; Z88.1 Allergy status to other antibiotic agents; Z86.14 Personal history of Methicillin resistant Staphylococcus aureus infection
CPT/HCPCS: 93005; 36415 ×2; 87070; 87205; 82962; 85027; 87075; 87077; 80048; 87186; 71045; 93010; 11044; 11462; J2250; J3010; J3490 ×2; A9270; J2060; J2370; J2405; J2704; 300

== ENCOUNTER 2018-01-27 16:42 | Emergency (ER) | payer MEDICARE, MEDICAID ==
[2018-01-27] MEDS ORDERED: NORMAL SALINE 1000 ML 1,000 ML IV ONE ×2 (17:54→19:58)
--- NOTE | 2018-01-27 17:56 | ER Document Report ---
ED Medical Screen (RME) - General Chief Complaint: Low Blood Pressure Stated Complaint: POSSIBLE DIZZINESS Time Seen by Provider: 01/27/18 16:58 TRAVEL OUTSIDE OF THE [place] IN LAST 30 DAYS: No - HPI Patient complains to provider of: Dizziness, low blood pressure Notes: 01/27/18 17:55 Patient with extensive medical history including colostomy, and what sounds like surgical debridement of likely sacral ulceration, presents to the emergency room today complaining of dizziness with a low blood pressure - Related Data Allergies/Adverse Reactions: atropine Allergy (Verified 01/19/18 08:58) itching, "scratchy throat" atropine sulfate [From Lomotil] Allergy (Verified 01/19/18 08:58) itching, hives diphenoxylate HCl [From Lomotil] Allergy (Verified 01/19/18 08:58) itching, hives erythromycin base [Erythromycin Base] Allergy (Verified 01/19/18 08:58) itching paroxetine HCl [From Paxil] Allergy (Verified 01/19/18 08:58) itching Sulfa (Sulfonamide Antibiotics) Allergy (Verified 01/19/18 08:59) Migraines, fatigue sulfamethoxazole [From Bactrim] Allergy (Verified 01/19/18 08:58) ithing, GI problems trimethoprim [From Bactrim] Allergy (Verified 01/19/18 08:58) itching, GI problems Past Medical History - Social History Chew tobacco use (# tins/day): No Frequency of alcohol use: None Drug Abuse: None - Past Medical History Cardiac Medical History: Reports: Hx Heart Attack - NOVEMBER 2014, Hx Hypertension Denies: Hx Coronary Artery Disease Pulmonary Medical History: Reports: Hx Asthma, Hx Pneumonia Denies: Hx Bronchitis, Hx COPD Neurological Medical History: Reports: Hx Seizures - pt denies . Denies: Hx Cerebrovascular Accident Endocrine Medical History: Reports: Hx Diabetes Mellitus Type 2 Renal/ Medical History: Denies: Hx Peritoneal Dialysis GI Medical History: Reports: Hx Crohn's Disease Musculoskeltal Medical History: Reports Hx Arthritis - RA, chronic pain Psychiatric Medical History: Reports: Hx Depression Past Surgical History: Reports: Hx Colostomy, Other - Multiple wound debridements over the last 2 months - Immunizations Hx Diphtheria, Pertussis, Tetanus Vaccination: No - Pt denies History of Influenza Vaccine for 04/2017 - 09/2017 Season: Yes Influenza Administration Date for 04/2017 - 09/2017 Season: 09/08/17 Physical Exam - Vital signs Vitals: Temp Pulse Resp BP Pulse Ox 97.7 F 97 18 96/70 L 97 01/27/18 17:19 01/27/18 17:19 01/27/18 17:19 01/27/18 17:19 01/27/18 17:19 Course - Vital Signs Vital signs: Temp Pulse Resp BP Pulse Ox 97.7 F 97 18 96/70 L 97 01/27/18 17:19 01/27/18 17:19 01/27/18 17:19 01/27/18 17:19 01/27/18 17:19 Doctor's Discharge - Discharge Referrals: LAQUITA COKER DO [Primary Care Provider] - Follow up as needed
[2018-01-27] MEDS ORDERED: FENTANYL CITRATE INJ/PF 100 MCG/2 ML AMPUL IV ONE (19:58)
--- NOTE | 2018-01-27 20:05 | ER Document Report ---
ED General - General Chief Complaint: Low Blood Pressure Stated Complaint: POSSIBLE DIZZINESS Time Seen by Provider: 01/27/18 16:58 Notes: Patient is a 52-year-old male that comes emergency department for chief complaint of lightheadedness, abdominal pain, and low blood pressure, he is undergoing rehab at [facility], was sent to the wound clinic for sacral decubitus ulcer and groin wounds, was found to be hypotensive and EMS was called. Patient states he has not eaten anything today. He denies fever chills, nausea or vomiting. Past medical history includes Crohn's disease with colostomy bag, [place], hypertension, type 2 diabetes. TRAVEL OUTSIDE OF THE [place] IN LAST 30 DAYS: No - Related Data Allergies/Adverse Reactions: atropine Allergy (Verified 01/27/18 20:53) itching, "scratchy throat" atropine sulfate [From Lomotil] Allergy (Verified 01/27/18 20:53) itching, hives diphenoxylate HCl [From Lomotil] Allergy (Verified 01/27/18 20:53) itching, hives erythromycin base [Erythromycin Base] Allergy (Verified 01/27/18 20:53) itching paroxetine HCl [From Paxil] Allergy (Verified 01/27/18 20:53) itching Sulfa (Sulfonamide Antibiotics) Allergy (Verified 01/27/18 20:53) Migraines, fatigue sulfamethoxazole [From Bactrim] Allergy (Verified 01/27/18 20:53) ithing, GI problems trimethoprim [From Bactrim] Allergy (Verified 01/27/18 20:53) itching, GI problems Past Medical History - General Information source: Patient - Social History Smoking Status: Never Smoker Chew tobacco use (# tins/day): No Frequency of alcohol use: None Drug Abuse: None Lives with: [facility] Family History: Other - Crohn's-sister Patient has suicidal ideation: No Patient has homicidal ideation: No - Past Medical History Cardiac Medical History: Reports: Hx Heart Attack - NOVEMBER 2014, Hx Hypertension Denies: Hx Coronary Artery Disease Pulmonary Medical History: Reports: Hx Asthma, Hx Pneumonia Denies: Hx Bronchitis, Hx COPD Neurological Medical History: Reports: Hx Seizures - pt denies . Denies: Hx Cerebrovascular Accident Endocrine Medical History: Reports: Hx Diabetes Mellitus Type 2 Renal/ Medical History: Denies: Hx Peritoneal Dialysis GI Medical History: Reports: Hx Crohn's Disease Musculoskeletal Medical History: Reports Hx Arthritis - RA, chronic pain Psychiatric Medical History: Reports: Hx Depression Past Surgical History: Reports: Hx Colostomy, Other - Multiple wound debridements over the last 2 months - Immunizations Hx Diphtheria, Pertussis, Tetanus Vaccination: No - Pt denies Review of Systems - Review of Systems Constitutional: See HPI EENT: No symptoms reported Cardiovascular: See HPI Respiratory: No symptoms reported Gastrointestinal: See HPI Genitourinary: No symptoms reported Male Genitourinary: No symptoms reported Musculoskeletal: No symptoms reported Skin: No symptoms reported Hematologic/Lymphatic: No symptoms reported Neurological/Psychological: No symptoms reported Physical Exam - Vital signs Vitals: Temp Pulse Resp BP Pulse Ox 97.7 F 97 18 96/70 L 97 01/27/18 17:19 01/27/18 17:19 01/27/18 17:19 01/27/18 17:19 01/27/18 17:19 - Notes Notes: GENERAL: Alert, does not appear to be in any distress HEAD: Normocephalic, atraumatic. EYES: Pupils equal, round, and reactive to light. Extraocular movements intact. ENT: Oral mucosa moist, tongue midline. NECK: Full range of motion. Supple. Trachea midline. LUNGS: Clear to auscultation bilaterally, no wheezes, rales, or rhonchi. No respiratory distress. HEART: Regular rate and rhythm. No murmur ABDOMEN: Large amount of bowel at ostomy site inside of the colostomy bag. Normal-appearing stool in the bag. Generalized tenderness of the abdomen, nonspecific, no guarding. No erythema or noted abnormality around the ostomy site otherwise. EXTREMITIES: Moves all 4 extremities spontaneously. No edema, normal radial and dorsalis pedis pulses bilaterally. No cyanosis. BACK: no cervical, thoracic, lumbar midline tenderness. No saddle anesthesia, normal distal neurovascular exam. NEUROLOGICAL: Alert and oriented x3. Normal speech. [cranial nerves II through XII grossly intact]. PSYCH: Normal affect, normal mood. SKIN: Multiple dressed wounds over the groin bilaterally and over the right buttock. Course - Re-evaluation Re-evalutation: CBC shows leukocytosis at 18,000, nonspecific shift, no bands. Chemistry generally unremarkable. Urine unremarkable. Chest x-ray unremarkable. Troponin not elevated. Blood pressure was initially soft but then responded and normalized after IV fluids. Because of patient's large amount of bowel in the colostomy bag called Dr. Chin, evaluated patient at bedside. He recommends CAT scan with IV and oral contrast. Covered with Zosyn and given additional IV fluids. 01/28/18 03:[address] report, called radiology, they state they will be contacting the radiologist partners to see if there is a problem. CAT scan with no acute abnormality. Discussed with Dr. Chin, he recommends repeat CBC to trend. CBC repeated, shows no change, white blood cell count is still 18.1. Discussed with Dr. Vance again, he does not feel patient has any acute surgical abnormality, vital signs are normal now, he has been observed for many hours with no decompensation. Recommend he follow-up with wound clinic and his primary care with return precautions. Patient is currently on antibiotics for his wounds. Discussed this with patient, patient states understanding and agreement. - Vital Signs Vital signs: Temp Pulse Resp BP Pulse Ox 98.6 F 97 12 121/80 97 01/28/18 04:10 01/27/18 17:19 01/28/18 05:00 01/28/18 05:00 01/28/18 05:00 - Laboratory Result Diagrams: 01/28/18 04:14 01/27/18 20:15 Laboratory results interpreted by me: 01/27/18 01/27/18 01/27/18 20:00 20:15 20:15 WBC 18.1 H Hgb 13.4 L Hct MCV 77 L MCH 25.0 L RDW 21.0 H Plt Count 469 H Seg Neutrophils % Eosinophils % 6.2 H Absolute Neutrophils 8.3 H Absolute Lymphocytes 6.8 H Absolute Monocytes Absolute Eosinophils 1.1 H Absolute Basophils 0.3 H Calcium 11.1 H AST 73 H ALT 88 H Alkaline Phosphatase 347 H Total Protein 8.4 H Urine Ascorbic Acid 40 H 01/28/18 04:14 WBC 18.1 H Hgb 11.7 L Hct 35.7 L MCV 76 L MCH 25.0 L RDW 20.7 H Plt Count Seg Neutrophils % 39.6 L Eosinophils % Absolute Neutrophils Absolute Lymphocytes 7.8 H Absolute Monocytes 1.8 H Absolute Eosinophils 1.0 H Absolute Basophils 0.3 H Calcium AST ALT Alkaline Phosphatase Total Protein Urine Ascorbic Acid Discharge - Discharge Clinical Impression: Body aches Hypotension Qualifiers: Hypotension type: unspecified hypotension type Qualified Code(s): I95.9 - Hypotension, unspecified Abdominal pain Qualifiers: Abdominal location: generalized Qualified Code(s): R10.84 - Generalized abdominal pain Decubitus skin ulcer Qualifiers: Pressure injury location: buttock Pressure injury stage: unspecified pressure injury stage Laterality: right Qualified Code(s): L89.319 - Pressure ulcer of right buttock, unspecified stage Condition: Stable Disposition: HOME, SELF-CARE Additional Instructions: Your CAT scan does not show any concerning abnormalities at this time. Continue current antibiotics for your wounds and follow-up with the wound clinic. Your blood pressure was low, this improved with hydration, improve eating and drinking. Dr. Chin, surgeon evaluated you tonight. Follow-up with your primary care for additional evaluation and management. Return for any concerning symptoms including vomiting, severe abdominal pain, fever of 100.4 or greater, passing out, or any other concerning symptoms. Referrals: LAQUITA COKER DO [NO LOCAL MD] - Follow up as needed
[2018-01-27 20:33] LABS: APPEARANCE,URINE SLIGHTLY-CLOUDY; BILIRUBIN,URINE NEGATIVE (NEGATIVE); COLOR,URINE YELLOW; GLUCOSE, URINE NEGATIVE (NEGATIVE); KETONES,URINE NEGATIVE (NEGATIVE); LEUKOCYTE ESTERASE,URINE NEGATIVE (NEGATIVE); NITRITE,URINE NEGATIVE (NEGATIVE); PROTEIN,URINE NEGATIVE (NEGATIVE); URINE SPECIFIC GRAVITY 1.015; UROBILINOGEN,URINE NEGATIVE mg/dL (<2.0)
[2018-01-27 20:35] LABS: ABSOLUTE BASOPHILS # (AUTO) 0.3 10^3/uL (0.0-0.2); ABSOLUTE EOSINOPHILS # (AUTO) 1.1 10^3/uL (0.0-0.6); ABSOLUTE LYMPHOCYTES (AUTO) 6.8 10^3/uL (0.5-4.7); ABSOLUTE MONOCYTES (AUTO) 1.4 10^3/uL (0.1-1.4); ABSOLUTE NEUT (AUTO) 8.3 10^3/uL (1.7-8.2); BASOPHILS % (AUTO) 1.9 % (0-2); EOSINOPHILS % (AUTO) 6.2 % (0-6); HEMATOCRIT 41.5 % (37.9-51.0); HEMOGLOBIN 13.4 g/dL (13.5-17.0); LYMPHOCYTES % (AUTO) 37.7 % (13-45); MEAN CORPUSCULAR HGB CONC 32.3 g/dL (32.0-36.0); MEAN CORPUSCULAR VOLUME 77 fl (80-97); MONOCYTES % (AUTO) 7.9 % (3-13); PLATELET COUNT 469 10^3/uL (150-450); RED BLOOD COUNT 5.37 10^6/uL (4.35-5.55); SEGMENTED NEUTROPHILS % (AUTO) 46.3 % (42-78); TOTAL CELLS COUNTED % (AUTO) 100 %; WHITE BLOOD COUNT 18.1 10^3/uL (4.0-10.5)
--- NOTE | 2018-01-27 20:40 | RADIOLOGY REPORT (SQ) ---
EXAM DESCRIPTION: CHEST SINGLE VIEW COMPLETED DATE/TIME: 01/27/2018 8:30 pm REASON FOR STUDY: hypotension COMPARISON: 01/23/2018 EXAM PARAMETERS: NUMBER OF VIEWS: One view. TECHNIQUE: Single frontal radiographic view of the chest acquired. RADIATION DOSE: NA LIMITATIONS: None. FINDINGS: LUNGS AND PLEURA: No acute opacities, masses or pneumothorax. No pleural effusion. MEDIASTINUM AND HILAR STRUCTURES: Stable. HEART AND VASCULAR STRUCTURES: Heart normal in size. Normal vasculature. BONES: No acute findings. HARDWARE: None in the chest. OTHER: No other significant finding. IMPRESSION: NO ACUTE RADIOGRAPHIC FINDING IN THE CHEST. TECHNICAL DOCUMENTATION: JOB ID: [id number] [place]-72 2010 [employer]- All Rights Reserved Reading location - IP/workstation name: [facility]
[2018-01-27 20:56] LABS: ALANINE AMINOTRANSFERASE 88 U/L (21-72); ALBUMIN 4.2 g/dL (3.5-5.0); ALKALINE PHOSPHATASE 347 U/L (38-126); ANION GAP 14 (5-19); ASPARTATE AMINO TRANSFERASE 73 U/L (17-59); BILIRUBIN,DIRECT 0.4 mg/dL (0.0-0.4); BILIRUBIN,TOTAL 0.5 mg/dL (0.2-1.3); BLOOD UREA NITROGEN 20 mg/dL (7-20); CALCIUM 11.1 mg/dL (8.4-10.2); CARBON DIOXIDE 25 mmol/L (22-30); CHLORIDE 105 mmol/L (98-107); GLUCOSE 87 mg/dL (75-110); LIPASE 37.9 U/L (23-300); POTASSIUM 4.3 mmol/L (3.6-5.0); SODIUM 143.7 mmol/L (137-145); TOTAL PROTEIN 8.4 g/dL (6.3-8.2)
[2018-01-27] MEDS ORDERED: PIPERACILLIN/TAZOBACTAM 3.375 GM VIAL IV ONE (21:25)
[2018-01-27] MEDS ORDERED: NORMAL SALINE 1000 ML 1,000 ML IV PRN (21:29)
[2018-01-27] MEDS ORDERED: MORPHINE SULFATE 10 MG/ML INJ IV ONE ×2 (21:29→23:50)
--- NOTE | 2018-01-27 22:01 | EKG REPORT ---
SEVERITY:- NORMAL ECG - SINUS RHYTHM : Confirmed by: Taylor Jackson 27-Jan-2018 22:00:26
[2018-01-28] MEDS ORDERED: METOCLOPRAMIDE HCL INJ/PF 10 MG/2 ML SDV IV ONE (00:27)
[2018-01-28] MEDS ORDERED: KETOROLAC TROMETHAMINE INJ/PF 30 MG/1 ML SDV IV ONE (01:01)
[2018-01-28] MEDS ORDERED: MORPHINE SULFATE 10 MG/ML INJ IV ONE (03:16)
[2018-01-28] MEDS ORDERED: ONDANSETRON HCL INJ/PF 4 MG/2 ML SDV IV ONE (03:16)
--- NOTE | 2018-01-28 03:45 | RADIOLOGY REPORT (SQ) ---
EXAM DESCRIPTION: CT ABDOMEN PELVIS WITH IV CONTRAST COMPLETED DATE/TME: 01/28/2018 00:00 CLINICAL HISTORY: 52 years, Male, abd pain, leukocytosis, evaulate herniation COMPARISON: 10/09/2017 TECHNIQUE: CT images of the abdomen and pelvis were obtained after the administration of IV contrast. Sagittal and coronal reformats were performed. DLP 839 Images stored on PACS. All CT scanners at this facility use dose modulation, iterative reconstruction, and/or weight based dosing when appropriate to reduce radiation dose to as low as reasonably achievable (ALARA). [facility]: Dose Right [facility]: CareDose [facility]: Dose Right [facility]: Teradose 4D [facility]: [employer] LIMITATIONS: None. FINDINGS: Lung bases are clear. The liver, gallbladder, pancreas, and adrenal glands are unremarkable. Multiple splenules are noted along the left upper quadrant. There is a 1.7 cm left renal cyst. There is no evidence of hydronephrosis or hydroureter bilaterally. The urinary bladder is unremarkable. There is no intraperitoneal free air or fluid. There is no lymphadenopathy. There are mild atherosclerotic calcific effusions of the abdominal aorta. The stomach and small bowel are unremarkable. There is a periumbilical colostomy. The colostomy site appears unremarkable. The appendix is normal. The prostate is unremarkable. There is mild stranding along the left gluteal region. No focal fluid collection or abscess is identified. There are no lytic or blastic bone lesions IMPRESSION: No acute findings. TECHNICAL DOCUMENTATION: Quality ID # [id number]: Final reports with documentation of one or more dose reduction techniques (e.g., Automated exposure control, adjustment of the mA and/or kV according to patient size, use of iterative reconstruction technique) 2010 [employer]- All Rights Reserved
[2018-01-28 04:40] LABS: ABSOLUTE LYMPHOCYTES (AUTO) 7.8 10^3/uL (0.5-4.7); ABSOLUTE MONOCYTES (AUTO) 1.8 10^3/uL (0.1-1.4); HEMOGLOBIN 11.7 g/dL (13.5-17.0); TOTAL CELLS COUNTED % (AUTO) 100 %; WHITE BLOOD COUNT 18.1 10^3/uL (4.0-10.5)
[2018-01-28 04:55] LABS: ABSOLUTE BASOPHILS # (AUTO) 0.3 10^3/uL (0.0-0.2); ABSOLUTE NEUT (AUTO) 7.2 10^3/uL (1.7-8.2); BASOPHILS % (AUTO) 1.5 % (0-2); EOSINOPHILS % (AUTO) 5.7 % (0-6); HEMATOCRIT 35.7 % (37.9-51.0); LYMPHOCYTES % (AUTO) 43.4 % (13-45); MEAN CORPUSCULAR HGB CONC 32.8 g/dL (32.0-36.0); MEAN CORPUSCULAR VOLUME 76 fl (80-97); MONOCYTES % (AUTO) 9.8 % (3-13); PLATELET COUNT 434 10^3/uL (150-450); RED BLOOD COUNT 4.67 10^6/uL (4.35-5.55); RED CELL DISTRIBUTION WIDTH 20.7 % (11.5-14.0); SEGMENTED NEUTROPHILS % (AUTO) 39.6 % (42-78)
[2018-01-28 07:39] VITALS: BP 117/79
[2018-01-28] MEDS ORDERED: MORPHINE SULFATE SR 30 MG TABLET PO ONE (10:15)
== END 2018-01-28 10:45 | disposition home or self-care (01) ==
LOC: ER 16:42
DX: I95.9 Hypotension, unspecified (principal); R10.84 Generalized abdominal pain; L89.319 Pressure ulcer of right buttock, unspecified stage; R42 Dizziness and giddiness; D72.829 Elevated white blood cell count, unspecified; K50.90 Crohn's disease, unspecified, without complications; Z93.3 Colostomy status; I10 Essential (primary) hypertension; E11.9 Type 2 diabetes mellitus without complications; Z88.8 Allergy status to other drugs, medicaments and biological substances; Z88.1 Allergy status to other antibiotic agents; Z88.2 Allergy status to sulfonamides
CPT/HCPCS: 93005; 99285; 96361; 96375; 96365; 36415; 87040; 83690; 85025; 87077; 80053; 81001; 84484; 87186; 83605; 71045; 74177; 93010; J3010; J1885; J2765; J2270 ×2; J2405; J7030; J2543

== ENCOUNTER 2018-02-03 16:03 | Inpatient (IN) | payer MEDICARE, MEDICAID ==
--- NOTE | 2018-02-03 17:24 | ER Document Report ---
ED General - General Chief Complaint: Shortness Of Breath Stated Complaint: SHORTNESS OF BREATH Time Seen by Provider: 02/03/18 17:03 Mode of Arrival: Ambulatory Information source: Patient Notes: 52-year-old male recent surgeries for abscess presents with complaints of shortness of breath, EMS found patient satting 70% on room air, he is not on oxygen at home. Patient denies any fevers or chills notes difficulty breathing but states sometimes he does get short of breath similar to this TRAVEL OUTSIDE OF THE [place] IN LAST 30 DAYS: No - HPI Onset: Just prior to arrival Onset/Duration: Sudden Quality of pain: Achy Severity: Mild Pain Level: 1 Associated symptoms: Shortness of breath Exacerbated by: Denies Relieved by: Denies Similar symptoms previously: No Recently seen / treated by doctor: Yes - Related Data Allergies/Adverse Reactions: atropine Allergy (Verified 01/27/18 20:53) itching, "scratchy throat" atropine sulfate [From Lomotil] Allergy (Verified 01/27/18 20:53) itching, hives diphenoxylate HCl [From Lomotil] Allergy (Verified 01/27/18 20:53) itching, hives erythromycin base [Erythromycin Base] Allergy (Verified 01/27/18 20:53) itching paroxetine HCl [From Paxil] Allergy (Verified 01/27/18 20:53) itching Sulfa (Sulfonamide Antibiotics) Allergy (Verified 01/27/18 20:53) Migraines, fatigue sulfamethoxazole [From Bactrim] Allergy (Verified 01/27/18 20:53) ithing, GI problems trimethoprim [From Bactrim] Allergy (Verified 01/27/18 20:53) itching, GI problems Past Medical History - Social History Smoking Status: Never Smoker Cigarette use (# per day): No Chew tobacco use (# tins/day): No Smoking Education Provided: No Frequency of alcohol use: None Drug Abuse: None Family History: Other - Crohn's-sister Patient has suicidal ideation: No Patient has homicidal ideation: No - Past Medical History Cardiac Medical History: Reports: Hx Heart Attack - NOVEMBER 2014, Hx Hypertension Denies: Hx Coronary Artery Disease Pulmonary Medical History: Reports: Hx Asthma, Hx Pneumonia Denies: Hx Bronchitis, Hx COPD Neurological Medical History: Reports: Hx Seizures - pt denies . Denies: Hx Cerebrovascular Accident Endocrine Medical History: Reports: Hx Diabetes Mellitus Type 2 Renal/ Medical History: Denies: Hx Peritoneal Dialysis GI Medical History: Reports: Hx Crohn's Disease Musculoskeletal Medical History: Reports Hx Arthritis - RA, chronic pain Psychiatric Medical History: Reports: Hx Depression Past Surgical History: Reports: Hx Colostomy, Other - Multiple wound debridements over the last 2 months - Immunizations Hx Diphtheria, Pertussis, Tetanus Vaccination: No - Pt denies Review of Systems - Review of Systems Notes: REVIEW OF SYSTEMS: CONSTITUTIONAL : Denies fever, chills, or sweats. Denies recent illness. EENT: Denies eye, ear, throat, or mouth pain or symptoms. Denies nasal or sinus congestion or discharge. Denies throat, tongue, or mouth swelling or difficulty swallowing. CARDIOVASCULAR: Denies chest pain. Denies palpitations or racing or irregular heart beat. Denies ankle edema. RESPIRATORY: admits to difficulty breathing GASTROINTESTINAL: Denies abdominal pain or distention. Denies nausea, vomiting , or diarrhea. Denies blood in vomitus, stools, or per rectum. Denies black, tarry stools. Denies constipation. GENITOURINARY: Denies difficulty urinating, painful urination, burning, frequency, blood in urine, or discharge. MUSCULOSKELETAL: Denies back or neck pain or stiffness. Denies joint pain or swelling. SKIN: Denies rash, lesions or sores. HEMATOLOGIC : Denies easy bruising or bleeding. LYMPHATIC: Denies swollen, enlarged glands. NEUROLOGICAL: Denies confusion or altered mental status. Denies passing out or loss of consciousness. Denies dizziness or lightheadedness. Denies headache. Denies weakness or paralysis or loss of use of either side. Denies problems with gait or speech. Denies sensory loss, numbness, or tingling. Denies seizures. PSYCHIATRIC: Denies anxiety or stress. Denies depression, suicidal ideation, or homicidal ideation. ALL OTHER SYSTEMS REVIEWED AND NEGATIVE. Dictation was performed using [employer] voice recognition software PHYSICAL EXAMINATION: GENERAL: Well-appearing, well-nourished and in severe resp distress HEAD: Atraumatic, normocephalic. EYES: Pupils equal round and reactive to light, extraocular movements intact, sclera anicteric, conjunctiva are normal. ENT: Nares patent, oropharynx clear without exudates. Moist mucous membranes. NECK: Normal range of motion, supple without lymphadenopathy LUNGS: Breath sounds clear to auscultation bilaterally and equal. No wheezes rales or rhonchi. HEART: Regular rate and rhythm without murmurs ABDOMEN: Soft, nontender, nondistended abdomen. No guarding, no rebound. No masses appreciated. Musculoskeletal: Normal range of motion, no pitting or edema. No cyanosis. NEUROLOGICAL: Cranial nerves grossly intact. Normal speech, normal gait. Normal sensory, motor exams PSYCH: Normal mood, normal affect. SKIN: Warm, Dry, normal turgor, no rashes or lesions noted. Physical Exam - Vital signs Vitals: Resp Pulse Ox 28 H 71 L 02/03/18 16:18 02/03/18 16:18 Course - Re-evaluation Re-evalutation: 02/03/18 17:26 Patient on nasal cannula 6 L sats were gone up to mid 80s, we placed the patient on nonrebreather high 80s patient switched to BiPAP 02/03/18 18:20 X-rays consistent with multifocal pneumonia, given patient's recent hospitalizations I will treat as hospital-acquired pneumonia - Vital Signs Vital signs: Temp Pulse Resp BP Pulse Ox 104 H 24 H 98 02/03/18 16:24 02/03/18 16:24 02/03/18 18:01 - Laboratory Result Diagrams: 02/03/18 17:30 02/03/18 18:39 Laboratory results interpreted by me: 02/03/18 02/03/18 02/03/18 17:30 17:30 18:39 WBC 26.7 H Hgb 12.1 L Hct 36.5 L MCV 77 L MCH 25.7 L RDW 21.6 H Plt Count 512 H Abs Neuts (Manual) 18.4 H Abs Lymphs (Manual) 6.4 H Abs Monocytes (Manual) 1.6 H Direct Bilirubin 0.5 H AST 71 H Alkaline Phosphatase 301 H NT-Pro-B Natriuret Pep 951 H Discharge - Discharge Clinical Impression: Multifocal pneumonia Condition: Poor Disposition: ADMITTED INPATIENT Admitting Provider: Hospitalist Unit Admitted: IMCU Referrals: DELROY CROUCH DO [Primary Care Provider] - Follow up as needed
[2018-02-03 17:54] LABS: HEMATOCRIT 36.5 % (37.9-51.0); HEMOGLOBIN 12.1 g/dL (13.5-17.0); MEAN CORPUSCULAR HEMOGLOBIN 25.7 pg (27.0-33.4); MEAN CORPUSCULAR HGB CONC 33.2 g/dL (32.0-36.0); MEAN CORPUSCULAR VOLUME 77 fl (80-97); PLATELET COUNT 512 10^3/uL (150-450); RED BLOOD COUNT 4.71 10^6/uL (4.35-5.55); RED CELL DISTRIBUTION WIDTH 21.6 % (11.5-14.0); WHITE BLOOD COUNT 26.7 10^3/uL (4.0-10.5)
[2018-02-03] MEDS ORDERED: MORPHINE SULFATE 10 MG/ML INJ IV ONE (18:00)
--- NOTE | 2018-02-03 18:11 | RADIOLOGY REPORT (SQ) ---
EXAM DESCRIPTION: CHEST SINGLE VIEW COMPLETED DATE/TIME: 02/03/2018 5:52 pm REASON FOR STUDY: sob , hypoxemia COMPARISON: 01/27/2018 EXAM PARAMETERS: NUMBER OF VIEWS: One view. TECHNIQUE: Single frontal radiographic view of the chest acquired. RADIATION DOSE: NA LIMITATIONS: None. FINDINGS: LUNGS AND PLEURA: Diffusely increased mixed interstitial and airspace opacities, most sign ificantly involving the lingula. A thorax. No pleural effusion. MEDIASTINUM AND HILAR STRUCTURES: No masses. Contour normal. HEART AND VASCULAR STRUCTURES: Heart normal in size. Normal vasculature. BONES: No acute findings. HARDWARE: None in the chest. OTHER: No other significant finding. IMPRESSION: In the appropriate clinical setting, findings are consistent with a multi lobar pneumoni a. Pulmonary edema or pulmonary hemorrhage may have a similar appearance. TECHNICAL DOCUMENTATION: JOB ID: [id number] [employer]- All Rights Reserved Reading location - IP/workstation name: [email or web address]
[2018-02-03] MEDS ORDERED: PIPERACILLIN/TAZOBACTAM 3.375 GM VIAL IV ONE (18:15)
[2018-02-03] MEDS ORDERED: VANCOMYCIN HCL INJ 1000 MG VIAL IV ONE (18:15)
[2018-02-03 18:20] LABS: ABSOLUTE LYMPHOCYTES# (MANUAL) 6.4 10^3/uL (0.5-4.7); ABSOLUTE MONOCYTES # (MANUAL) 1.6 10^3/uL (0.1-1.4); ABSOLUTE NEUTROPHILS# (MANUAL) 18.4 10^3/uL (1.7-8.2); BASOPHILS % (MANUAL) 0 % (0-2); EOSINOPHILS % (MANUAL) 1 % (0-6); LYMPHOCYTES % (MANUAL) 24 % (13-45); MONOCYTES % (MANUAL) 6 % (3-13); SEGMENTED NEUTROPHILS % (MAN) 69 % (42-78); TOTAL CELLS COUNTED 100
[2018-02-03 18:22] LABS: ANISOCYTOSIS 2+; HYPOCHROMASIA SLIGHT; PLATELET COMMENT INCREASED; POIKILOCYTOSIS 1+; TARGET CELLS SLIGHT; TOXIC GRANULATION SLIGHT
[2018-02-03 18:30] LABS: CREATINE KINASE MB 0.55 ng/mL (<4.55); NT PRO BNP 951 pg/mL (5-900)
[2018-02-03 18:37] LABS: TROPONIN I < 0.012 ng/mL
[2018-02-03 19:00] LABS: ALANINE AMINOTRANSFERASE 71 U/L (21-72); ALBUMIN 3.6 g/dL (3.5-5.0); ALKALINE PHOSPHATASE 301 U/L (38-126); ANION GAP 12 (5-19); ASPARTATE AMINO TRANSFERASE 71 U/L (17-59); BILIRUBIN,DIRECT 0.5 mg/dL (0.0-0.4); BILIRUBIN,TOTAL 0.8 mg/dL (0.2-1.3); BLOOD UREA NITROGEN 13 mg/dL (7-20); CALCIUM 9.2 mg/dL (8.4-10.2); CARBON DIOXIDE 23 mmol/L (22-30); CHLORIDE 107 mmol/L (98-107); CREATINE KINASE 99 U/L (55-170); GLUCOSE 104 mg/dL (75-110); POTASSIUM 4.1 mmol/L (3.6-5.0); SODIUM 142.3 mmol/L (137-145); TOTAL PROTEIN 8.2 g/dL (6.3-8.2)
[2018-02-03 19:34] LABS: VENOUS BLOOD HCO3 22.2 mmol/L (20-32); VENOUS BLOOD PCO2 45.3 mmHg (35-63); VENOUS BLOOD PH 7.31 (7.30-7.42)
[2018-02-03 20:07] LABS: APPEARANCE,URINE CLEAR; BILIRUBIN,URINE NEGATIVE (NEGATIVE); COLOR,URINE YELLOW; GLUCOSE, URINE NEGATIVE (NEGATIVE); KETONES,URINE NEGATIVE (NEGATIVE); LEUKOCYTE ESTERASE,URINE NEGATIVE (NEGATIVE); NITRITE,URINE NEGATIVE (NEGATIVE); PROTEIN,URINE 30 mg/dL (NEGATIVE); URINE SPECIFIC GRAVITY 1.014; UROBILINOGEN,URINE NEGATIVE mg/dL (<2.0)
[2018-02-03] MEDS ORDERED: HYDROMORPHONE HCL INJ/PF 2 MG/ML AMPULE IV ONE (20:48)
[2018-02-03] MEDS ORDERED: ACETAMINOPHEN 325 MG TABLET PO PRN ×2 (20:54→22:30)
[2018-02-03] MEDS ORDERED: PROMETHAZINE HCL INJ 25 MG/1 ML VIAL IV PRN (20:54)
[2018-02-03] MEDS ORDERED: MAG HYDROX/AL HYDROX/SIMETH SUSP 30 ML UDCUP PO PRN ×2 (20:54→22:30)
[2018-02-03] MEDS ORDERED: LEVALBUTEROL HCL NEB 1.25 MG/3 ML AMPUL NEB PRN (21:06)
[2018-02-03] MEDS: NORMAL SALINE 1000 ML 1,000 ML IV PRN ×2 (21:14→22:37)
[2018-02-03] MEDS ORDERED: VANCOMYCIN HCL 0 MG in DEXTROSE 5%-WATER 250 ML IV NR (21:15)
[2018-02-03] MEDS ORDERED: GLUCAGON,HUMAN RECOMB 1 MG INJ IM PRN (21:56)
[2018-02-03] MEDS ORDERED: DEXTROSE 40% GEL 15 GM TUBE PO PRN ×2 (21:56)
[2018-02-03] MEDS ORDERED: DEXTROSE 50%-WATER 25 GM/50 ML DISP.SYRIN IV PRN ×2 (21:56)
[2018-02-03] MEDS ORDERED: TEMAZEPAM 7.5 MG CAPSULE PO PRN (22:00)
--- NOTE | 2018-02-03 22:17 | PDOC H&P ---
History of Present Illness Admission Date/PCP: 02/03/18 19:50 DELROY CROUCH DO Patient complains of: Shortness of breath History of Present Illness: TIA VILLANUEVA is a 52 year old male who unfortunately has history of extensive hidradenitis of the perianal area and perineum with subsequent multiple ulcerations, minimally ambulatory, comes from [facility] for acute respiratory failure. Patient tells me that he was feeling sick since last Tuesday, was cold, chilly, last Tuesday started with progressive shortness of breath, sore throat and pleuritic chest pain. He denies wheezing, cough, phlegm, and runny nose. Found on respiratory distress. When EMS arrived he was saturating 70% on room air, 80% on nasal cannula, 88% on nonrebreather, 100 % on BiPAP. At the time of my evaluation patient was comfortable on BiPAP, not using respiratory muscles, speaking in full sentences. Denies nausea, vomiting , patient complains of diffuse abdominal pain but this is not new, patient has an ostomy bag with soft greenish stools, patient tells me that usually they are brownish, denies diarrhea, denies urinary symptoms. She has multiple wounds in the sacral, perineal and inguinal area secondary to his infected hidradenitis, I remove all the dressings, they are different stages from 2-4 in the sacral area, the perineum has purulent secretions and most of the dressings has stools underneath. Chest x-ray shows possible multilobar pneumonia, uncertain the possibility of PE , ED attending tells me that he ordered a CTA PE protocol at 5 PM but at the time of my dictation 9:36 PM has not been done yet. Patient is started on IV spectrum antibiotic, IV fluids. Initially with a respiratory rate of 30 and pulse of 104. Past Medical History Cardiac Medical History: Reports: Myocardial Infarction - NOVEMBER 2014, Hypertension Denies: Coronary Artery Disease Pulmonary Medical History: Reports: Asthma, Pneumonia Denies: Bronchitis, Chronic Obstructive Pulmonary Disease (COPD) Neurological Medical History: Reports: Seizures - pt denies Endocrine Medical History: Reports: Diabetes Mellitus Type 2 GI Medical History: Reports: Crohn's Disease Musculoskeltal Medical History: Reports: Arthritis - RA, chronic pain Skin History Note: Multiple ulcerations in different stages and sacral, perineal and inguinal area Psychiatric Medical History: Reports: Depression Hematology: Reports: Anemia Past Surgical History Past Surgical History: Reports: Colostomy, Other - Multiple wound debridements over the last 2 months Social History Smoking Status: Never Smoker Frequency of Alcohol Use: None Hx Recreational Drug Use: No Hx Prescription Drug Abuse: No Family History Family History: Other - Crohn's-sister Parental Family History Reviewed: No Children Family History Reviewed: NA Sibling(s) Family History Reviewed.: NA Medication/Allergy Home Medications: Ondansetron HCl [Zofran 8 mg Tablet] 4 mg PO Q6HP PRN 08/24/17 Pregabalin [Lyrica 50 mg Capsule] 150 mg PO Q8 capsule 10/27/17 Amox Tr/Potassium Clavulanate [Augmentin 875-125 mg Tablet] 1 tab PO BID Ascorbic Acid [Vitamin C 500 mg Tablet] 500 mg PO BID 01/19/18 Buspirone HCl [Buspar 15 mg Tablet] 1 tab PO BID 01/19/18 Celecoxib [Celebrex 100 mg Capsule] 100 mg PO BID 01/19/18 Docusate Sodium [Colace 100 mg Capsule] 100 mg PO BID 01/19/18 Ferrous Sulfate [Feosol] 325 mg PO BID 01/19/18 Hydroxyzine HCl [Atarax 50 mg Tablet] 50 mg PO Q4 01/19/18 Insulin Detemir [Levemir] 15 unit SQ Q12 01/19/18 Insulin Lispro [Humalog] See Protocol SQ ACHS 01/19/18 L. Acidophilus/Strept/LA P-Parish [Risaquad Capsules] 1 each PO Q8 01/19/18 Mag Hydrox/Al Hydrox/Simeth [Maalox Plus Susp 30 Udcup] 30 ml PO Q6 PRN Minocycline HCl [Dynacin] 100 mg PO BID 01/19/18 Morphine Sulfate [Morphine Ir 30 mg Tablet] 90 mg PO Q12 01/19/18 Morphine Sulfate [Ms Contin] 90 mg PO Q12 01/19/18 Oxycodone HCl [Oxy-Ir 5 mg Tablet] 10 mg PO Q6HP PRN 01/19/18 Quetiapine Fumarate [Seroquel 25 mg Tablet] 50 mg PO QHS 01/19/18 Zolpidem Tartrate [Ambien 5 mg Tablet] 5 mg PO QHS 01/19/18 Acetaminophen [Tylenol 325 mg Tablet] 650 mg PO Q6HP PRN 02/03/18 Allergies/Adverse Reactions: atropine Allergy (Verified 01/27/18 20:53) itching, "scratchy throat" atropine sulfate [From Lomotil] Allergy (Verified 01/27/18 20:53) itching, hives diphenoxylate HCl [From Lomotil] Allergy (Verified 01/27/18 20:53) itching, hives erythromycin base [Erythromycin Base] Allergy (Verified 01/27/18 20:53) itching paroxetine HCl [From Paxil] Allergy (Verified 01/27/18 20:53) itching Sulfa (Sulfonamide Antibiotics) Allergy (Verified 01/27/18 20:53) Migraines, fatigue sulfamethoxazole [From Bactrim] Allergy (Verified 01/27/18 20:53) ithing, GI problems trimethoprim [From Bactrim] Allergy (Verified 01/27/18 20:53) itching, GI problems Review of Systems Review of Systems: As outlined in the HPI, all others negative Physical Exam Vital Signs: Temp Pulse Resp BP Pulse Ox 104 H 30 H 100 02/03/18 16:24 02/03/18 19:59 02/03/18 19:59 Additional comments: General appearance: Chronically ill, alert and cooperative, and appears to be in no acute distress. Wearing BiPAP Head: Normocephalic Eyes: PEERL, EOMI, vision is grossly intact. Ears: External auditory canal and tympanic membranes clear, hearing grossly intact. Nose: No nasal discharge. Throat: Oral cavity and pharynx very dry. No inflammation, swelling, exudate or lesions. Neck: Neck supple, nontender without lymphadenopathy, masses or thyromegaly. Cardiac: Normal S1 and S2. No S3, S4 or murmurs. Rhythm is regular and tachycardic. There is no cyanosis or pallor. Extremities are warm and well perfused. Capillary refill is less than 2 seconds. No carotid bruits. Lungs: A little my evaluation patient has bilateral decreased breath sounds with posterior inferior mild crackles, minimal rhonchi, I did not appreciate wheezing. Not using accessory muscles Abdomen: Positive bowel sounds. Soft. Nondistended, diffused tenderness. No guarding or rebound. No masses. No hepatosplenomegaly Colostomy bag and placed with soft and greenish stools, no blood. Extremities: No significant deformity or joint abnormality. 2+ pitting edema bilaterally below the knee with tightness and some erythema over shins area, tender to palpation. Peripheral pulses intact. No varicosities. Neurological: Cranial nerves II through XII grossly intact. Strength and sensation decreased in both lower extremities, mild bilateral dropfoot Skin: Skin pale color, texture and turgor with multiple wounds in sacral which includes a stage IV with no active secretions, perineal area with purulent secretion, stage II-III and bilateral inguinal area stage II-III, dressings dirty with stools underneath in contact with the wounds. Psychiatric: The mental examination revealed the patient was oriented to person , place, and time. The patient was able to demonstrate good judgment on recent , without hallucinations, abnormal affect or abnormal behaviors. Results Laboratory Results: 02/03/18 02/03/18 02/03/18 17:30 17:30 18:39 WBC 26.7 H Hgb 12.1 L Hct 36.5 L MCV 77 L MCH 25.7 L MCHC 33.2 RDW 21.6 H Plt Count 512 H Total Counted 100 Seg Neuts % (Manual) 69 Lymphocytes % (Manual) 24 Monocytes % (Manual) 6 Eosinophils % (Manual) 1 Abs Neuts (Manual) 18.4 H Abs Lymphs (Manual) 6.4 H Abs Monocytes (Manual) 1.6 H Absolute Eos (Manual) 0.3 Poikilocytosis 1+ Anisocytosis 2+ VBG pH 7.31 VBG pCO2 45.3 VBG HCO3 22.2 Sodium 142.3 Potassium 4.1 Chloride 107 Carbon Dioxide 23 Anion Gap 12 BUN 13 Creatinine 0.67 Est GFR ( Amer) > 60 Est GFR (Non-Af Amer) > 60 Glucose 104 Calcium 9.2 Total Bilirubin 0.8 Direct Bilirubin 0.5 H AST 71 H ALT 71 Alkaline Phosphatase 301 H Creatine Kinase 99 Total Protein 8.2 Albumin 3.6 Urine Color Urine Appearance Urine pH Ur Specific [place] Urine Protein Urine Glucose (UA) Urine Ketones Urine Blood Urine Bilirubin Urine WBC (Auto) Urine Mucus (Auto) Urine Ascorbic Acid 02/03/18 19:45 WBC Hgb Hct MCV MCH MCHC RDW Plt Count Total Counted Seg Neuts % (Manual) Lymphocytes % (Manual) Monocytes % (Manual) Eosinophils % (Manual) Abs Neuts (Manual) Abs Lymphs (Manual) Abs Monocytes (Manual) Absolute Eos (Manual) Poikilocytosis Anisocytosis VBG pH VBG pCO2 VBG HCO3 Sodium Potassium Chloride Carbon Dioxide Anion Gap BUN Creatinine Est GFR ( Amer) Est GFR (Non-Af Amer) Glucose Calcium Total Bilirubin Direct Bilirubin AST ALT Alkaline Phosphatase Creatine Kinase Total Protein Albumin Urine Color YELLOW Urine Appearance CLEAR Urine pH 6.0 Ur Specific [place] 1.014 Urine Protein 30 H Urine Glucose (UA) NEGATIVE Urine Ketones NEGATIVE Urine Blood NEGATIVE Urine Bilirubin NEGATIVE Urine WBC (Auto) 1 Urine Mucus (Auto) RARE Urine Ascorbic Acid 40 H Impressions: Chest X-Ray 02/03/18 17:03 IMPRESSION: In the appropriate clinical setting, findings are consistent with a multi lobar pneumonia. Pulmonary edema or pulmonary hemorrhage may have a similar appearance. Assessment & Plan - Diagnosis (1) Sepsis Qualifiers: Sepsis type: sepsis due to unspecified organism Qualified Code(s): A41.9 - Sepsis, unspecified organism Is this a current diagnosis for this admission?: Yes Plan: Patient is a criteria with leukocytosis, tachypnea, tachycardia, focus of infection. (2) Acute respiratory failure with hypoxia Is this a current diagnosis for this admission?: Yes Plan: Patient was found with an oxygen saturation of 70% on room air, now 100% on BiPAP. (3) Multifocal pneumonia Is this a current diagnosis for this admission?: Yes Plan: Chest x-ray shows possible multifocal pneumonia. Patient meets criteria for HCAP, will give IV Zosyn, IV vancomycin and IV Levaquin. Please follow blood cultures, sputum cultures. Nebulizer treatments with Xopenex as allergies to atropine, RT consult, ABG in the morning, IV steroids. Telemetry monitoring and close monitoring of his respiratory status. I am concerned about PE, discussed with the ED attending apparently he ordered a CTA PE protocol at 5 PM, he will call the lab, will follow on it. Continue with BiPAP. IV fluids. (4) Multiple open wounds of pelvic region Is this a current diagnosis for this admission?: Yes Plan: Patient has history of hydradenitis in the pelvic region, sacral, perineal and inguinal complicated with abscesses, patient had multiple debridements done by general surgery, he has history of using wound VAC, he is having his wound care at [facility] where he sustained for a rehabilitation. His wounds are different stages. Unfortunately by the time I examine him and I remove the dressings they were cover with his stools, stools underneath, purulent secretions in the perineal area. I am placing a consultation for general surgery. [facility] unless otherwise indicated by surgery. (5) Chronic pain Qualifiers: Chronic pain type: chronic pain syndrome Qualified Code(s): G89.4 - Chronic pain syndrome Is this a current diagnosis for this admission?: Yes Plan: Continue home opioids, fentanyl, morphine, oxycodone, pregabalin, as per previous records. IV Dilaudid as needed for severe pain. (6) Coronary artery disease Qualifiers: Coronary Disease-Associated Artery/Lesion type: unspecified vessel or lesion type Is this a current diagnosis for this admission?: Yes Plan: Patient denies any cardiac complaints. He has history of [place] in 2015. (7) Crohn's disease Qualifiers: Digestive disease complication type: other complication Is this a current diagnosis for this admission?: Yes Plan: Crohn's disease with fistula status post colostomy in 2015. Denies current diarrhea, soft stools, greenish in color, apparently usually a brownish, nonbloody. Do not see patient is on any home medication for this disease. (8) Lower extremity edema Is this a current diagnosis for this admission?: Yes Plan: Patient has bilateral lower extremities edema below the knee with warmth and some erythema over both shins, very tender to palpation, patient is minimally ambulatory with a walker and assistance. I will go ahead and order bilateral lower extremities ultrasound. (9) Diabetes mellitus type 2 in nonobese Is this a current diagnosis for this admission?: Yes Plan: Last hemoglobin A1c 6.6 on 01/18. For now will place him on Accu-Cheks q. before meals and at bedtime, insulin lispro sliding scale and hypoglycemia protocol. I do not see patient is on current diabetic medication. - Time Time Spent: 50 to 70 Minutes - Inpatient Certification Based on my medical assessment, after consideration of the patient's comorbidities, presenting symptoms, or acuity I expect that the services needed warrant INPATIENT care.: Yes I certify that my determination is in accordance with my understanding of Medicare's requirements for reasonable and necessary INPATIENT services [42 CFR 412.3e].: Yes Medical Necessity: Need For IV Fluids, Need for IV Antibiotics
--- NOTE | 2018-02-03 22:17 | RADIOLOGY REPORT (SQ) ---
EXAM DESCRIPTION: CTA CHEST COMPLETED DATE/TIME: 02/03/2018 10:05 pm REASON FOR STUDY: sob hypoxemia COMPARISON: Chest radiograph 02/03/2018 TECHNIQUE: CT scan of the chest performed using helical scanning technique with dynamic intravenous contrast injection. Images reviewed with lung, soft tissue and bone windows. Reconstructed coronal and sagittal MPR images reviewed. Additional 3 dimensional post-processing performed to develop Maximal Intensity Projection images (MO P). All images stored on PACS. All CT scanners at this facility use dose modulation, iterative reconstruction, and/or weight based d osing when appropriate to reduce radiation dose to as low as reasonably achievable (ALARA). [facility]: Dose Right [facility]: CareDose [facility]: Dose Right [facility]: Teradose 4D [facility]: StillSecure CONTRAST TYPE AND DOSE: contrast/concentration: Isovue 370.00 mg/ml; Total Contrast Delivered: 75.0 ml; Total Saline Delivered: 90.0 ml Contrast bolus optimized for the pulmonary arteries. Not diagnostic for the aorta. RENAL FUNCTION: BUN 13; creatinine 0.6 RADIATION DOSE: CT Rad equipment meets quality standard of care and radiation dose reduction techniq ues were employed. CTDIvol: 16.5 - 18.5 mGy. DLP: 722 mGy-cm. . LIMITATIONS: None. FINDINGS: LUNGS AND PLEURA: Re- demonstration of diffuse ground-glass opacities, noting an element o f subpleural sparing. The airways appear normal. No pleural effusion. No pneumothorax. . AORTA AND GREAT VESSELS: No aneurysm. Contrast bolus not optimized for the aorta. HEART: No pericardial effusion. No significant coronary artery calcifications. PULMONARY ARTERIES: No emboli visualized in the main pulmonary arteries or the segmental branches. HILAR AND MEDIASTINAL STRUCTURES: No identified masses or abnormal nodes. HARDWARE: None in the chest. UPPER ABDOMEN: Limited exam. Incidental note is made of an apparent partially imaged ostomy. THYROID AND OTHER SOFT TISSUES: No masses. No adenopathy. BONES: No acute or significant finding. 3D MIPS: Confirm above findings. OTHER: No other significant finding. IMPRESSION: 1. No pulmonary emboli. 2. Diffuse ground-glass opacities the differential for which is broad, to include atypical pneumonit is, chronic infiltrative lung disease (NSIP, PAP, etc), pulmonary edema, diffuse alveolar hemorrhage, hypersensitivity pneumonitis, or other. COMMENT: Quality ID # [id number]: Final reports with documentation of one or more dose reduction techniques (e.g., Automated exposure control, adjustment of the mA and/or kV according to patient size, use of iterative reconstruction technique) TECHNICAL DOCUMENTATION: JOB ID: [id number] [employer]- All Rights Reserved Reading location - IP/workstation name: [email or web address]
--- NOTE | 2018-02-03 22:29 | EKG REPORT ---
SEVERITY:- BORDERLINE ECG - SINUS TACHYCARDIA PROBABLE LEFT ATRIAL ABNORMALITY : Confirmed by: Sienna Tong MD 03-Feb-2018 22:28:38
[2018-02-03] MEDS ORDERED: ONDANSETRON HCL 8 MG TABLET PO PRN (22:30)
[2018-02-03] MEDS ORDERED: CIPROFLOXACIN 200 MG/D5W RTU 200 MG/100 ML RTUPB IV ONE (22:49)
[2018-02-03] MEDS: OXYCODONE HCL IR 5 MG TABLET PO PRN (23:19)
[2018-02-03] MEDS: HYDROMORPHONE HCL INJ/PF 2 MG/ML AMPULE IV PRN (23:21)
[2018-02-03] MEDS: HEPARIN SOD (PORCINE) 5,000 UNIT/ML 1 ML SYRINGE SUBCUT SCH (23:22)
[2018-02-03] MEDS: CIPROFLOXACIN 200 MG/D5W RTU 200 MG/100 ML RTUPB IV SCH (23:24)
[2018-02-04] MEDS: NORMAL SALINE 1000 ML 1,000 ML IV PRN ×2 (00:26→16:31)
[2018-02-04] MEDS: HYDROXYZINE PAMOATE 50 MG CAPSULE PO SCH ×6 (03:31→22:08)
[2018-02-04] MEDS ORDERED: VANCOMYCIN HCL INJ 1000 MG VIAL IV PRN (04:04)
[2018-02-04] MEDS ORDERED: VANCOMYCIN HCL 1,750 MG in DEXTROSE 5%-WATER 500 ML IV ONE (04:15)
[2018-02-04] MEDS ORDERED: LORAZEPAM INJ 2 MG/1 ML VIAL IV ONE (04:52)
[2018-02-04] MEDS ORDERED: HYDROMORPHONE HCL INJ/PF 2 MG/ML AMPULE IV ONE (04:52)
[2018-02-04] MEDS: METHYLPREDNISOLONE INJ 40 MG/1 ML SDV IV SCH ×2 (06:27→18:17)
[2018-02-04] MEDS: PREGABALIN 50 MG CAPSULE PO SCH ×3 (06:28→22:09)
[2018-02-04 06:30] LABS: ARTERIAL BLOOD BASE EXCESS -3.4 mmol/L; ARTERIAL BLOOD FIO2 50%; ARTERIAL BLOOD H2CO3 0.97 mmol/L (1.05-1.35); ARTERIAL BLOOD HCO3 20.3 mmol/L (20-26); ARTERIAL BLOOD O2 SATURATION 96.2 % (94-98); ARTERIAL BLOOD PCO2 32.2 mmHg (35-45); ARTERIAL BLOOD PH 7.42 (7.35-7.45); ARTERIAL BLOOD PO2 80.8 mmHg (80-100); ARTERIAL BLOOD TOTAL CO2 21.3 mmol/L (23-27)
[2018-02-04] MEDS: PIPERACILLIN SODIUM/TAZOBACTAM 3.375 GM in NORMAL SALINE 100 ML IV SCH ×5 (06:31→18:22)
[2018-02-04] MEDS: HEPARIN SOD (PORCINE) 5,000 UNIT/ML 1 ML SYRINGE SUBCUT SCH ×3 (06:35→22:07)
[2018-02-04 07:42] LABS: HEMATOCRIT 36.5 % (37.9-51.0); MEAN CORPUSCULAR HEMOGLOBIN 24.9 pg (27.0-33.4); MEAN CORPUSCULAR HGB CONC 32.8 g/dL (32.0-36.0); MEAN CORPUSCULAR VOLUME 76 fl (80-97); PLATELET COUNT 420 10^3/uL (150-450); RED CELL DISTRIBUTION WIDTH 20.9 % (11.5-14.0); WHITE BLOOD COUNT 27.1 10^3/uL (4.0-10.5)
[2018-02-04 07:49] LABS: ALANINE AMINOTRANSFERASE 61 U/L (21-72); ALBUMIN 3.4 g/dL (3.5-5.0); ALKALINE PHOSPHATASE 293 U/L (38-126); ANION GAP 14 (5-19); ASPARTATE AMINO TRANSFERASE 56 U/L (17-59); BILIRUBIN,DIRECT 0.8 mg/dL (0.0-0.4); BILIRUBIN,TOTAL 1.2 mg/dL (0.2-1.3); BLOOD UREA NITROGEN 7 mg/dL (7-20); CALCIUM 9.1 mg/dL (8.4-10.2); CARBON DIOXIDE 19 mmol/L (22-30); CHLORIDE 107 mmol/L (98-107); GLUCOSE 129 mg/dL (75-110); PHOSPHORUS 3.5 mg/dL (2.5-4.5); POTASSIUM 4.2 mmol/L (3.6-5.0); SODIUM 139.6 mmol/L (137-145); TOTAL PROTEIN 7.8 g/dL (6.3-8.2)
[2018-02-04 08:10] LABS: ABSOLUTE LYMPHOCYTES# (MANUAL) 6.2 10^3/uL (0.5-4.7); ABSOLUTE MONOCYTES # (MANUAL) 0.8 10^3/uL (0.1-1.4); ABSOLUTE NEUTROPHILS# (MANUAL) 19.8 10^3/uL (1.7-8.2); BASOPHILS % (MANUAL) 0 % (0-2); EOSINOPHILS % (MANUAL) 1 % (0-6); LYMPHOCYTES % (MANUAL) 23 % (13-45); MONOCYTES % (MANUAL) 3 % (3-13); SEGMENTED NEUTROPHILS % (MAN) 73 % (42-78); TOTAL CELLS COUNTED 100
[2018-02-04 08:12] LABS: ANISOCYTOSIS 3+; HYPOCHROMASIA 1+; TOXIC GRANULATION SLIGHT; TOXIC VACUOLATION PRESENT
[2018-02-04 08:13] LABS: OVALOCYTES SLIGHT; POIKILOCYTOSIS 1+; TARGET CELLS SLIGHT; TEAR DROP CELLS SLIGHT
[2018-02-04 08:19] LABS: PLATELET COMMENT ADEQUATE
[2018-02-04] MEDS: HYDROMORPHONE HCL INJ/PF 2 MG/ML AMPULE IV PRN ×5 (08:21→22:28)
[2018-02-04] MEDS: CIPROFLOXACIN 200 MG/D5W RTU 200 MG/100 ML RTUPB IV SCH (08:24)
[2018-02-04] MEDS ORDERED: LEVOFLOXACIN 750 MG/D5W RTU 750 MG/150 ML RTUPB IV SCH ×2 (10:00)
[2018-02-04] MEDS: BUSPIRONE HCL 10 MG TABLET PO SCH ×2 (11:04→18:18)
[2018-02-04] MEDS: DOCUSATE SODIUM 100 MG CAPSULE PO SCH ×2 (11:04→18:19)
[2018-02-04] MEDS: INSULIN DETEMIR 100 UNIT/ML 3 ML PEN SUBCUT SCH (11:04)
[2018-02-04] MEDS: FERROUS SULFATE 325 MG TABLET PO SCH ×2 (11:04→18:18)
[2018-02-04] MEDS: MORPHINE SULFATE SR 30 MG TABLET PO SCH ×2 (11:05→22:07)
[2018-02-04] MEDS: VANCOMYCIN HCL 1,250 MG in DEXTROSE 5%-WATER 250 ML IV SCH (11:20)
[2018-02-04] MEDS: VANCOMYCIN HCL INJ 500 MG VIAL PO SCH (11:21)
[2018-02-04] MEDS: ASCORBIC ACID 500 MG TABLET PO SCH ×2 (11:22→18:18)
--- NOTE | 2018-02-04 14:01 | RADIOLOGY REPORT (SQ) ---
EXAM DESCRIPTION: VENOUS BILATERAL LOWER COMPLETED DATE/TIME: 02/04/2018 1:44 pm REASON FOR STUDY: doppler bilateral lower extremities, edema COMPARISON: None. TECHNIQUE: Dynamic and static encarnacion scale and color images acquired of both lower extremity venous sy stems. Selected spectral images acquired with additional compression and augmentation maneuvers. Imag es stored on PACS. LIMITATIONS: None. FINDINGS: RIGHT LEG COMMON FEMORAL AND FEMORAL: Normal phasicity, compression and augmentation. No visualized echogenic m aterial on encarnacion scale. No defects on color images. POPLITEAL: Normal compression and augmentation. No visualized echogenic material on encarnacion scale. No de fects on color images. CALF VESSELS: Normal compression and augmentation. No visualized echogenic material on encarnacion scale. No defects on color image. GSV AND SSV: Normal compression. No visualized echogenic material on encarnacion scale. No defects on color images. ANY DEEP VENOUS INSUFFICIENCY: Not evaluated. ANY EVIDENCE OF POPLITEAL CYST: No. OTHER: No other significant finding. LEFT LEG COMMON FEMORAL AND FEMORAL: Normal phasicity, compression and augmentation. No visualized echogenic m aterial on encarnacion scale. No defects on color images. POPLITEAL: Normal compression and augmentation. No visualized echogenic material on encarnacion scale. No de fects on color images. CALF VESSELS: Normal compression and augmentation. No visualized echogenic material on encarnacion scale. No defects on color images. GSV AND SSV: Normal compression. No visualized echogenic material on encarnacion scale. No defects on color images. ANY DEEP VENOUS INSUFFICIENCY: Not evaluated. ANY EVIDENCE POPLITEAL CYST: No. OTHER: No other significant finding. IMPRESSION: NO EVIDENCE DVT OR SVT IN EITHER LEG. TECHNICAL DOCUMENTATION: JOB ID: [id number] [employer]- All Rights Reserved Reading location - IP/workstation name: [email or web address]
[2018-02-04] MEDS: OXYCODONE HCL IR 5 MG TABLET PO PRN (18:12)
[2018-02-04] MEDS: THIAMINE HCL 100 MG in NORMAL SALINE 50 ML IV SCH (18:24)
[2018-02-04] MEDS ORDERED: VANCOMYCIN HCL INJ 500 MG VIAL ONE (18:37)
--- NOTE | 2018-02-04 18:44 | PDOC PROGRESS REPORT ---
Subjective Progress Note for:: 02/04/18 Subjective:: Patient was still in the ER whenever I saw him. He was on BiPAP at that point. He seem more concerned about his pain medicine than he did about the fact that he had multiple complicated acute medical problems including respiratory failure. He somehow remained afebrile. He still having a lot of liquid stool output through his ostomy. Reason For Visit: ACUTE HYPOXIC RESPIRATORY FAILURE/HCAP Physical Exam Vital Signs: Temp Pulse Resp BP Pulse Ox 98.9 F 88 35 H 119/68 94 02/04/18 13:01 02/04/18 16:16 02/04/18 16:16 02/04/18 13:30 02/04/18 16:16 Intake & Output 02/03/18 02/04/18 02/05/18 06:59 06:59 06:59 Intake Total 2100 1253 Output Total 1550 575 Balance 550 678 Weight 76.2 kg General appearance: PRESENT: cooperative, disheveled, other - Moderately distressed, wearing BiPAP Respiratory exam: PRESENT: accessory muscle use, crackles - Faint bibasilar, tachypnea. ABSENT: rhonchi, wheezes Cardiovascular exam: PRESENT: tachycardia. ABSENT: diastolic murmur, systolic murmur Vascular exam: PRESENT: normal capillary refill GI/Abdominal exam: PRESENT: hyperactive bowel sounds, soft, other - He had a lot of gas and liquid green stool in his ostomy bag. ABSENT: guarding, rebound , tenderness Extremities exam: ABSENT: pedal edema Musculoskeletal exam: PRESENT: deformity - Both of his feet were inverted and internally rotated with evidence of muscle contractures in his legs with muscle wasting, they have recently gotten him cleaned up so I did not roll him to look at his wounds. ABSENT: ambulatory Neurological exam: PRESENT: alert, awake, oriented to person, oriented to place , oriented to time Psychiatric exam: PRESENT: appropriate affect, normal mood Results Laboratory Results: 02/04/18 07:10 02/04/18 07:10 02/03/18 02/04/18 02/04/18 21:24 06:15 07:10 WBC RBC Hgb Hct MCV MCH MCHC RDW Plt Count Seg Neutrophils % Lymphocytes % Monocytes % Eosinophils % Basophils % Absolute Neutrophils Absolute Lymphocytes Absolute Monocytes Absolute Eosinophils Absolute Basophils Carbonic Acid 0.97 L HCO3/H2CO3 Ratio 20:1 ABG pH 7.42 ABG pCO2 32.2 L ABG pO2 80.8 ABG HCO3 20.3 ABG O2 Saturation 96.2 ABG Base Excess -3.4 FiO2 50% Sodium 139.6 Potassium 4.2 Chloride 107 Carbon Dioxide 19 L Anion Gap 14 BUN 7 Creatinine 0.59 Est GFR ( Amer) > 60 Est GFR (Non-Af Amer) > 60 Glucose 129 H Lactic Acid 1.3 Calcium 9.1 Phosphorus 3.5 Magnesium 1.6 Total Bilirubin 1.2 AST 56 ALT 61 Alkaline Phosphatase 293 H Total Protein 7.8 Albumin 3.4 L 02/04/18 02/04/18 07:10 07:10 WBC 27.1 H RBC 4.80 Hgb 12.0 L Hct 36.5 L MCV 76 L MCH 24.9 L MCHC 32.8 RDW 20.9 H Plt Count 420 Seg Neutrophils % Not Reportable Lymphocytes % Not Reportable Monocytes % Not Reportable Eosinophils % Not Reportable Basophils % Not Reportable Absolute Neutrophils Not Reportable Absolute Lymphocytes Not Reportable Absolute Monocytes Not Reportable Absolute Eosinophils Not Reportable Absolute Basophils Not Reportable Carbonic Acid HCO3/H2CO3 Ratio ABG pH ABG pCO2 ABG pO2 ABG HCO3 ABG O2 Saturation ABG Base Excess FiO2 Sodium Potassium Chloride Carbon Dioxide Anion Gap BUN Creatinine Est GFR ( Amer) Est GFR (Non-Af Amer) Glucose Lactic Acid 0.8 Calcium Phosphorus Magnesium Total Bilirubin AST ALT Alkaline Phosphatase Total Protein Albumin Impressions: Chest X-Ray 02/03/18 17:03 IMPRESSION: In the appropriate clinical setting, findings are consistent with a multi lobar pneumonia. Pulmonary edema or pulmonary hemorrhage may have a similar appearance. Chest/Abdomen CTA 02/03/18 17:09 IMPRESSION: 1. No pulmonary emboli. 2. Diffuse ground-glass opacities the differential for which is broad, to include atypical pneumonitis, chronic infiltrative lung disease (NSIP, PAP, etc) , pulmonary edema, diffuse alveolar hemorrhage, hypersensitivity pneumonitis, or other. Venous Doppler Study 02/04/18 00:00 IMPRESSION: NO EVIDENCE DVT OR SVT IN EITHER LEG. Assessment & Plan - Diagnosis (1) Sepsis Qualifiers: Sepsis type: sepsis due to unspecified organism Qualified Code(s): A41.9 - Sepsis, unspecified organism Is this a current diagnosis for this admission?: Yes Plan: He has Clostridium difficile in the stool, and because of the infiltrates he was started on antibiotic treatment for possible HCAP. There is a possibility that these are not infectious infiltrates, but rather evidence of early ARDS. We will monitoring him very closely especially as regards his respiratory status. Start him empirically on some thiamine and vitamin C in addition to the steroids he is already on. (2) Clostridium difficile colitis Is this a current diagnosis for this admission?: Yes Plan: Oral vancomycin has been started, along with a probiotic. (3) Multiple open wounds of pelvic region Is this a current diagnosis for this admission?: Yes Plan: Again, on broad-spectrum antibiotics. General surgery been consulted for wound care recommendations. (4) Acute respiratory failure with hypoxia Is this a current diagnosis for this admission?: Yes Plan: Currently on BiPAP and supplemental O2 to maintain SPO2 greater than 90%. As noted above, concern here for ARDS development. - Time Time Spent with patient: 25-34 minutes
[2018-02-04] MEDS ORDERED: VANCOMYCIN HCL INJ 500 MG VIAL PR ONE (21:45)
[2018-02-04] MEDS: QUETIAPINE FUMARATE 25 MG TABLET PO SCH (22:07)
[2018-02-04] MEDS: ZOLPIDEM TARTRATE 5 MG TABLET PO SCH (22:09)
[2018-02-05] MEDS: HYDROMORPHONE HCL INJ/PF 2 MG/ML AMPULE IV PRN ×6 (02:41→19:18)
[2018-02-05] MEDS ORDERED: VANCOMYCIN HCL INJ 500 MG VIAL PR SCH (03:00)
--- NOTE | 2018-02-05 03:02 | EKG REPORT ---
SEVERITY:- BORDERLINE ECG - SINUS TACHYCARDIA PROBABLE LEFT ATRIAL ABNORMALITY : Confirmed by: Sienna Tong MD 05-Feb-2018 03:01:41
[2018-02-05] MEDS: PIPERACILLIN SODIUM/TAZOBACTAM 3.375 GM in NORMAL SALINE 100 ML IV SCH ×3 (05:39→12:28)
[2018-02-05] MEDS: HYDROXYZINE PAMOATE 50 MG CAPSULE PO SCH ×6 (06:34→22:23)
[2018-02-05] MEDS: PREGABALIN 50 MG CAPSULE PO SCH ×3 (06:43→22:22)
[2018-02-05] MEDS: HEPARIN SOD (PORCINE) 5,000 UNIT/ML 1 ML SYRINGE SUBCUT SCH ×3 (06:45→22:25)
[2018-02-05] MEDS: METHYLPREDNISOLONE INJ 40 MG/1 ML SDV IV SCH ×4 (06:49→19:16)
[2018-02-05] MEDS: ASCORBIC ACID 500 MG TABLET PO SCH ×3 (07:41→19:16)
[2018-02-05 10:24] LABS: HEMATOCRIT 35.9 % (37.9-51.0); HEMOGLOBIN 11.8 g/dL (13.5-17.0); MEAN CORPUSCULAR HEMOGLOBIN 24.9 pg (27.0-33.4); MEAN CORPUSCULAR HGB CONC 32.9 g/dL (32.0-36.0); MEAN CORPUSCULAR VOLUME 76 fl (80-97); PLATELET COUNT 441 10^3/uL (150-450); RED BLOOD COUNT 4.74 10^6/uL (4.35-5.55); RED CELL DISTRIBUTION WIDTH 20.7 % (11.5-14.0); WHITE BLOOD COUNT 16.6 10^3/uL (4.0-10.5)
[2018-02-05] MEDS: VANCOMYCIN HCL 1,250 MG in DEXTROSE 5%-WATER 250 ML IV SCH ×2 (10:38→10:39)
[2018-02-05] MEDS: BUSPIRONE HCL 10 MG TABLET PO SCH ×2 (10:42→19:15)
[2018-02-05] MEDS: FERROUS SULFATE 325 MG TABLET PO SCH ×2 (10:42→19:16)
[2018-02-05] MEDS: OXYCODONE HCL IR 5 MG TABLET PO PRN (10:43)
[2018-02-05 10:46] LABS: ALANINE AMINOTRANSFERASE 45 U/L (21-72); ALBUMIN 3.3 g/dL (3.5-5.0); ALKALINE PHOSPHATASE 252 U/L (38-126); ANION GAP 15 (5-19); ASPARTATE AMINO TRANSFERASE 19 U/L (17-59); BILIRUBIN,DIRECT 0.5 mg/dL (0.0-0.4); BILIRUBIN,TOTAL 0.7 mg/dL (0.2-1.3); BLOOD UREA NITROGEN 20 mg/dL (7-20); CALCIUM 8.5 mg/dL (8.4-10.2); CARBON DIOXIDE 15 mmol/L (22-30); CHLORIDE 111 mmol/L (98-107); GLUCOSE 281 mg/dL (75-110); POTASSIUM 4.5 mmol/L (3.6-5.0); SODIUM 140.9 mmol/L (137-145); TOTAL PROTEIN 7.1 g/dL (6.3-8.2)
[2018-02-05] MEDS: NORMAL SALINE 1000 ML 1,000 ML IV PRN (10:51)
[2018-02-05] MEDS: DOCUSATE SODIUM 100 MG CAPSULE PO SCH ×2 (10:54→19:28)
[2018-02-05] MEDS ORDERED: INSULIN DETEMIR 100 UNIT/ML 3 ML PEN SUBCUT ONE (11:00)
[2018-02-05] MEDS ORDERED: VANCOMYCIN HCL 1,250 MG in DEXTROSE 5%-WATER 250 ML IV SCH (11:00)
[2018-02-05] MEDS: MORPHINE SULFATE SR 30 MG TABLET PO SCH ×2 (11:19→22:24)
[2018-02-05] MEDS: THIAMINE HCL 100 MG in NORMAL SALINE 50 ML IV SCH ×2 (11:30→19:33)
--- NOTE | 2018-02-05 11:32 | PDOC CONSULTATION ---
Consultation Consult Date: 02/04/18 Consult reason:: Perineal and sacral wounds. History of Present Illness Admission Date/PCP: 02/03/18 19:50 DELROY CROUCH DO History of Present Illness: TIA VILLANUEVA is a 52 year old male seen in consultation at the request of the hospitalist service. The patient has chronic perineal and sacral wounds. He was also found to have Clostridium difficile colitis. The patient has a diverting colostomy (presumably in an effort to control his perineal wound). He was admitted for respiratory distress, and is currently being treated by the hospitalist service for this complaint. The patient has no complaints in regards to his wounds. Nursing staff reports that there is drainage from his rectum. Currently the patient reports shortness of breath and generalized pain. He reports that his colostomy is productive of watery output. He also reports mucus-like output from his rectum. The patient is being followed by the wound clinic. The patient is a diabetic. Past Medical History Cardiac Medical History: Reports: Myocardial Infarction - NOVEMBER 2014, Hypertension Denies: Coronary Artery Disease Pulmonary Medical History: Reports: Asthma, Pneumonia Denies: Bronchitis, Chronic Obstructive Pulmonary Disease (COPD) Neurological Medical History: Reports: Seizures - pt denies Endocrine Medical History: Reports: Diabetes Mellitus Type 2 GI Medical History: Reports: Crohn's Disease Musculoskeltal Medical History: Reports: Arthritis - RA, chronic pain Psychiatric Medical History: Reports: Depression Hematology: Reports: Anemia Past Surgical History Past Surgical History: Reports: Colostomy, Other - Multiple wound debridements over the last 2 months Social History Smoking Status: Former Smoker Frequency of Alcohol Use: None Hx Recreational Drug Use: No Hx Prescription Drug Abuse: No - Advance Directive Resuscitation Status: Full Code Family History Family History: Other - Crohn's-sister Parental Family History Reviewed: Yes Children Family History Reviewed: Yes Sibling(s) Family History Reviewed.: Yes Medication/Allergy Home Medications: Ondansetron HCl [Zofran 8 mg Tablet] 4 mg PO Q6HP PRN 08/24/17 Pregabalin [Lyrica 50 mg Capsule] 150 mg PO Q8 capsule 10/27/17 Amox Tr/Potassium Clavulanate [Augmentin 875-125 mg Tablet] 1 tab PO BID Ascorbic Acid [Vitamin C 500 mg Tablet] 500 mg PO BID 01/19/18 Buspirone HCl [Buspar 15 mg Tablet] 1 tab PO BID 01/19/18 Celecoxib [Celebrex 100 mg Capsule] 100 mg PO BID 01/19/18 Docusate Sodium [Colace 100 mg Capsule] 100 mg PO BID 01/19/18 Ferrous Sulfate [Feosol] 325 mg PO BID 01/19/18 Hydroxyzine HCl [Atarax 50 mg Tablet] 50 mg PO Q4 01/19/18 Insulin Detemir [Levemir] 15 unit SQ Q12 01/19/18 Insulin Lispro [Humalog] See Protocol SQ ACHS 01/19/18 L. Acidophilus/Strept/LA P-Parish [Risaquad Capsules] 1 each PO Q8 01/19/18 Mag Hydrox/Al Hydrox/Simeth [Maalox Plus Susp 30 Udcup] 30 ml PO Q6 PRN Minocycline HCl [Dynacin] 100 mg PO BID 01/19/18 Morphine Sulfate [Morphine Ir 30 mg Tablet] 90 mg PO Q12 01/19/18 Morphine Sulfate [Ms Contin] 90 mg PO Q12 01/19/18 Oxycodone HCl [Oxy-Ir 5 mg Tablet] 10 mg PO Q6HP PRN 01/19/18 Quetiapine Fumarate [Seroquel 25 mg Tablet] 50 mg PO QHS 01/19/18 Zolpidem Tartrate [Ambien 5 mg Tablet] 5 mg PO QHS 01/19/18 Acetaminophen [Tylenol 325 mg Tablet] 650 mg PO Q6HP PRN 02/03/18 Allergies/Adverse Reactions: atropine Allergy (Verified 01/27/18 20:53) itching, "scratchy throat" atropine sulfate [From Lomotil] Allergy (Verified 01/27/18 20:53) itching, hives diphenoxylate HCl [From Lomotil] Allergy (Verified 01/27/18 20:53) itching, hives erythromycin base [Erythromycin Base] Allergy (Verified 01/27/18 20:53) itching paroxetine HCl [From Paxil] Allergy (Verified 01/27/18 20:53) itching Sulfa (Sulfonamide Antibiotics) Allergy (Verified 01/27/18 20:53) Migraines, fatigue sulfamethoxazole [From Bactrim] Allergy (Verified 01/27/18 20:53) ithing, GI problems trimethoprim [From Bactrim] Allergy (Verified 01/27/18 20:53) itching, GI problems Review of Systems Constitutional: PRESENT: fatigue, weakness Eyes: ABSENT: visual disturbances Ears: ABSENT: hearing changes Nose, Mouth, and Throat: ABSENT: sore throat Cardiovascular: ABSENT: chest pain Respiratory: PRESENT: cough, dyspnea. ABSENT: hemoptysis Gastrointestinal: ABSENT: abdominal pain, bloating Genitourinary: ABSENT: dysuria Musculoskeletal: PRESENT: back pain Integumentary: PRESENT: wounds - Perineum and sacrum Neurological: ABSENT: confusion, convulsions, dizziness Psychiatric: ABSENT: anxiety, depression Endocrine: ABSENT: cold intolerance, heat intolerance Hematologic/Lymphatic: ABSENT: easy bleeding, easy bruising Physical Exam Vital Signs: Temp Pulse Resp BP Pulse Ox 98.4 F 93 35 H 122/69 94 02/04/18 15:51 02/04/18 19:00 02/04/18 16:16 02/04/18 15:51 02/04/18 16:16 Intake & Output 02/03/18 02/04/18 02/05/18 06:59 06:59 06:59 Intake Total 2100 1253 Output Total 1550 575 Balance 550 678 Weight 76.2 kg General appearance: PRESENT: mild distress - Respiratory Head exam: PRESENT: atraumatic, normocephalic Eye exam: PRESENT: EOMI, PERRLA. ABSENT: scleral icterus Mouth exam: PRESENT: moist, neck supple Neck exam: ABSENT: lymphadenopathy, meningismus, tenderness, thyromegaly, tracheal deviation Respiratory exam: PRESENT: accessory muscle use, rhonchi, other - Patient is currently wearing BiPAP Cardiovascular exam: PRESENT: RRR Pulses: PRESENT: normal radial pulses Vascular exam: PRESENT: normal capillary refill. ABSENT: pallor GI/Abdominal exam: PRESENT: normal bowel sounds, soft, other - Colostomy is pink and productive of stool. ABSENT: guarding, tenderness Rectal exam: PRESENT: normal inspection Gentrourinary exam: PRESENT: other - Landry in place. No tenderness.. ABSENT: scrotal swelling, testicular tenderness, urethral discharge Extremities exam: ABSENT: clubbing Musculoskeletal exam: ABSENT: deformity Neurological exam: PRESENT: alert, awake, oriented to person, oriented to place , oriented to time, oriented to situation Psychiatric exam: PRESENT: agitated - Mild. ABSENT: anxious, depressed Skin exam: PRESENT: other - Perineal wound with good granulation present. No evidence of purulent drainage or infection. Deep, tunneling sacral wound present as well. Granulation tissue is present. No evidence of infection.. ABSENT: erythema, jaundice Results Laboratory Results: 02/04/18 07:10 02/04/18 07:10 02/03/18 02/04/18 02/04/18 21:24 06:15 07:10 WBC RBC Hgb Hct MCV MCH MCHC RDW Plt Count Seg Neutrophils % Lymphocytes % Monocytes % Eosinophils % Basophils % Absolute Neutrophils Absolute Lymphocytes Absolute Monocytes Absolute Eosinophils Absolute Basophils Carbonic Acid 0.97 L HCO3/H2CO3 Ratio 20:1 ABG pH 7.42 ABG pCO2 32.2 L ABG pO2 80.8 ABG HCO3 20.3 ABG O2 Saturation 96.2 ABG Base Excess -3.4 FiO2 50% Sodium 139.6 Potassium 4.2 Chloride 107 Carbon Dioxide 19 L Anion Gap 14 BUN 7 Creatinine 0.59 Est GFR ( Amer) > 60 Est GFR (Non-Af Amer) > 60 Glucose 129 H Lactic Acid 1.3 Calcium 9.1 Phosphorus 3.5 Magnesium 1.6 Total Bilirubin 1.2 AST 56 ALT 61 Alkaline Phosphatase 293 H Total Protein 7.8 Albumin 3.4 L 02/04/18 02/04/18 07:10 07:10 WBC 27.1 H RBC 4.80 Hgb 12.0 L Hct 36.5 L MCV 76 L MCH 24.9 L MCHC 32.8 RDW 20.9 H Plt Count 420 Seg Neutrophils % Not Reportable Lymphocytes % Not Reportable Monocytes % Not Reportable Eosinophils % Not Reportable Basophils % Not Reportable Absolute Neutrophils Not Reportable Absolute Lymphocytes Not Reportable Absolute Monocytes Not Reportable Absolute Eosinophils Not Reportable Absolute Basophils Not Reportable Carbonic Acid HCO3/H2CO3 Ratio ABG pH ABG pCO2 ABG pO2 ABG HCO3 ABG O2 Saturation ABG Base Excess FiO2 Sodium Potassium Chloride Carbon Dioxide Anion Gap BUN Creatinine Est GFR ( Amer) Est GFR (Non-Af Amer) Glucose Lactic Acid 0.8 Calcium Phosphorus Magnesium Total Bilirubin AST ALT Alkaline Phosphatase Total Protein Albumin Impressions: Chest X-Ray 02/03/18 17:03 IMPRESSION: In the appropriate clinical setting, findings are consistent with a multi lobar pneumonia. Pulmonary edema or pulmonary hemorrhage may have a similar appearance. Chest/Abdomen CTA 02/03/18 17:09 IMPRESSION: 1. No pulmonary emboli. 2. Diffuse ground-glass opacities the differential for which is broad, to include atypical pneumonitis, chronic infiltrative lung disease (NSIP, PAP, etc) , pulmonary edema, diffuse alveolar hemorrhage, hypersensitivity pneumonitis, or other. Venous Doppler Study 02/04/18 00:00 IMPRESSION: NO EVIDENCE DVT OR SVT IN EITHER LEG. Assessment & Plan - Diagnosis (1) Open wound of perineum Is this a current diagnosis for this admission?: Yes (2) Clostridium difficile colitis Is this a current diagnosis for this admission?: Yes (3) Decubitus ulcer Is this a current diagnosis for this admission?: Yes - Plan Summary Plan Summary: This is a 52-year-old male with chronic wounds of the sacrum and perineum. The wound bed appears clean and healthy. There is minimal fibrinous slough in the wound. There is no obvious purulence, induration, or erythema. I would recommend damp dressing changes twice daily with an aggressive turning regimen every 2 hours. Patient also has Clostridium difficile colitis. Patient is receiving oral vancomycin, however he has a diverting colostomy. To treat the distal portion of his colon I have recommended vancomycin enemas as well. This patient does not at this time require surgical intervention. I will see the patient again on an as-needed basis. Please renotify with any questions or concerns.
[2018-02-05] MEDS: VANCOMYCIN HCL INJ 500 MG VIAL PO SCH ×3 (12:39→19:27)
[2018-02-05] MEDS: INSULIN DETEMIR 100 UNIT/ML 3 ML PEN SUBCUT SCH ×2 (13:00→23:18)
--- NOTE | 2018-02-05 16:43 | PDOC PROGRESS REPORT ---
Subjective Progress Note for:: 02/05/18 Subjective:: He looks a lot better today. He is not having any more shortness of breath. No cough. His stool output has decreased. I tried to explain to him that the vancomycin enema was important because the oral vancomycin will not treat the part of his colon that is disconnected from the upper part of his GI tract, and if it is somehow infected the enema is going to be the only way we can treat it. He reluctantly agreed to do the enemas. Reason For Visit: ACUTE HYPOXIC RESPIRATORY FAILURE/HCAP Physical Exam Vital Signs: Temp Pulse Resp BP Pulse Ox 98.7 F 79 20 122/71 96 02/04/18 23:57 02/05/18 11:04 02/05/18 11:04 02/04/18 23:57 02/05/18 11:04 Intake & Output 02/04/18 02/05/18 02/06/18 06:59 06:59 06:59 Intake Total 2100 3081 822 Output Total 1550 1775 500 Balance 550 1306 322 Weight 76.2 kg 74.8 kg General appearance: PRESENT: no acute distress, cooperative, disheveled Respiratory exam: PRESENT: crackles - Diffuse, unlabored. ABSENT: accessory muscle use, rhonchi, tachypnea, wheezes Cardiovascular exam: PRESENT: RRR, +S1, +S2. ABSENT: diastolic murmur, systolic murmur Vascular exam: PRESENT: normal capillary refill GI/Abdominal exam: PRESENT: normal bowel sounds, soft, other - He has a colostomy with some greenish liquid stool and gas in the bag. ABSENT: distended , guarding, rebound, tenderness Extremities exam: PRESENT: other - His feet are inverted and internally rotated with muscle wasting in the lower extremities. ABSENT: pedal edema Neurological exam: PRESENT: alert, awake, oriented to person, oriented to place , oriented to time, oriented to situation Psychiatric exam: PRESENT: appropriate affect, normal mood Results Laboratory Results: 02/05/18 10:07 02/05/18 10:07 02/05/18 02/05/18 10:07 10:07 WBC 16.6 H RBC 4.74 Hgb 11.8 L Hct 35.9 L MCV 76 L MCH 24.9 L MCHC 32.9 RDW 20.7 H Plt Count 441 Sodium 140.9 Potassium 4.5 Chloride 111 H Carbon Dioxide 15 L Anion Gap 15 BUN 20 Creatinine 0.62 Est GFR ( Amer) > 60 Est GFR (Non-Af Amer) > 60 Glucose 281 H Calcium 8.5 Total Bilirubin 0.7 AST 19 ALT 45 Alkaline Phosphatase 252 H Total Protein 7.1 Albumin 3.3 L 02/03/18 21:24 Sacrum - Decubitis Ulcer Gram Stain - Final Impressions: Chest X-Ray 02/03/18 17:03 IMPRESSION: In the appropriate clinical setting, findings are consistent with a multi lobar pneumonia. Pulmonary edema or pulmonary hemorrhage may have a similar appearance. Chest/Abdomen CTA 02/03/18 17:09 IMPRESSION: 1. No pulmonary emboli. 2. Diffuse ground-glass opacities the differential for which is broad, to include atypical pneumonitis, chronic infiltrative lung disease (NSIP, PAP, etc) , pulmonary edema, diffuse alveolar hemorrhage, hypersensitivity pneumonitis, or other. Venous Doppler Study 02/04/18 00:00 IMPRESSION: NO EVIDENCE DVT OR SVT IN EITHER LEG. Assessment & Plan - Diagnosis (1) Sepsis Qualifiers: Sepsis type: sepsis due to unspecified organism Qualified Code(s): A41.9 - Sepsis, unspecified organism Is this a current diagnosis for this admission?: Yes Plan: He has Clostridium difficile in the stool, and because of the infiltrates he was started on antibiotic treatment for possible HCAP. I have a strong suspicion that this was not pneumonia. He does not have a history that lends itself to a diagnosis of pneumonia. I believe he was developing ARDS, so I have stopped his IV antibiotics in favor of treating the Clostridium difficile only. Started him empirically on some thiamine and vitamin C in addition to the steroids he was already on. We will monitor his response closely to see if we need to go back for IV antibiotics. (2) Clostridium difficile colitis Is this a current diagnosis for this admission?: Yes Plan: Oral vancomycin has been started, along with a probiotic. He agreed to do vancomycin enemas for his rectal stump as well. (3) Multiple open wounds of pelvic region Is this a current diagnosis for this admission?: Yes Plan: Seen by surgery yesterday, and they recommended routine dressing changes. By the report, there was no signs of infection after the wounds were cleaned up. Antibiotics have been discontinued. Again, will monitor his response. (4) Acute respiratory failure with hypoxia Is this a current diagnosis for this admission?: Yes Plan: He is on a few liters of oxygen per nasal cannula at this time and doing quite well. We will continue supplemental O2 to maintain an SPO2 greater than 90%. - Time Time Spent with patient: 25-34 minutes
[2018-02-05] MEDS: ZOLPIDEM TARTRATE 5 MG TABLET PO SCH (22:23)
[2018-02-05] MEDS: QUETIAPINE FUMARATE 25 MG TABLET PO SCH (22:23)
[2018-02-05] MEDS: INSULIN REG, HUMAN 100 UNIT/ML 3 ML VIAL (PYX) SUBCUT PRN (23:42)
[2018-02-06] MEDS: VANCOMYCIN HCL INJ 500 MG VIAL PR SCH ×6 (05:14→23:36)
[2018-02-06] MEDS: PREGABALIN 50 MG CAPSULE PO SCH ×3 (05:17→21:16)
[2018-02-06] MEDS: ASCORBIC ACID 500 MG TABLET PO SCH ×3 (05:17→17:43)
[2018-02-06] MEDS: HYDROXYZINE PAMOATE 50 MG CAPSULE PO SCH ×6 (05:19→21:16)
[2018-02-06] MEDS: HYDROMORPHONE HCL INJ/PF 2 MG/ML AMPULE IV PRN ×3 (05:19→23:35)
[2018-02-06] MEDS: VANCOMYCIN HCL INJ 500 MG VIAL PO SCH ×5 (05:25→23:36)
[2018-02-06] MEDS: METHYLPREDNISOLONE INJ 40 MG/1 ML SDV IV SCH ×3 (05:48→17:44)
[2018-02-06] MEDS: OXYCODONE HCL IR 5 MG TABLET PO PRN ×3 (06:49→21:17)
[2018-02-06] MEDS: NORMAL SALINE 1000 ML 1,000 ML IV PRN ×2 (06:50→20:11)
[2018-02-06] MEDS: HEPARIN SOD (PORCINE) 5,000 UNIT/ML 1 ML SYRINGE SUBCUT SCH ×3 (08:00→21:15)
[2018-02-06] MEDS: MORPHINE SULFATE SR 30 MG TABLET PO SCH ×2 (10:43→21:17)
[2018-02-06] MEDS: FERROUS SULFATE 325 MG TABLET PO SCH ×2 (10:44→17:43)
[2018-02-06] MEDS: BUSPIRONE HCL 10 MG TABLET PO SCH ×2 (10:45→17:43)
[2018-02-06] MEDS: INSULIN DETEMIR 100 UNIT/ML 3 ML PEN SUBCUT SCH ×2 (10:45→21:16)
[2018-02-06] MEDS: THIAMINE HCL 100 MG in NORMAL SALINE 50 ML IV SCH ×2 (10:46→18:28)
[2018-02-06] MEDS: DOCUSATE SODIUM 100 MG CAPSULE PO SCH ×2 (10:47→18:17)
[2018-02-06 11:03] LABS: HEMATOCRIT 35.2 % (37.9-51.0); HEMOGLOBIN 11.4 g/dL (13.5-17.0); MEAN CORPUSCULAR HEMOGLOBIN 24.7 pg (27.0-33.4); MEAN CORPUSCULAR HGB CONC 32.3 g/dL (32.0-36.0); MEAN CORPUSCULAR VOLUME 77 fl (80-97); PLATELET COUNT 454 10^3/uL (150-450); RED CELL DISTRIBUTION WIDTH 21.2 % (11.5-14.0); WHITE BLOOD COUNT 20.9 10^3/uL (4.0-10.5)
[2018-02-06 11:30] LABS: ANION GAP 11 (5-19); BLOOD UREA NITROGEN 22 mg/dL (7-20); CALCIUM 8.6 mg/dL (8.4-10.2); CARBON DIOXIDE 18 mmol/L (22-30); CHLORIDE 113 mmol/L (98-107); GLUCOSE 250 mg/dL (75-110); POTASSIUM 4.6 mmol/L (3.6-5.0); SODIUM 142.1 mmol/L (137-145)
[2018-02-06 11:36] LABS: VANCOMYCIN,TROUGH < 5.0 ug/mL (5.0-20.0)
[2018-02-06] MEDS: INSULIN REG, HUMAN 100 UNIT/ML 3 ML VIAL (PYX) SUBCUT PRN ×3 (12:39→21:15)
--- NOTE | 2018-02-06 14:39 | PDOC PROGRESS REPORT ---
Subjective Progress Note for:: 02/06/18 Subjective:: No adverse events overnight. He has been off BiPAP for over 24 hours. Since his breathing feels comfortable. He has had no cough. No chest pain or shortness of breath. He still about 5-6 L of oxygen at this point but his saturations are still in the mid 90s and is holding that comfortably. His stool output has diminished considerably. He said he is not having any more rectal discharge. He was initially refusing to have the vancomycin enemas as part of his treatment regimen but eventually relented. Reason For Visit: ACUTE HYPOXIC RESPIRATORY FAILURE/HCAP Physical Exam Vital Signs: Temp Pulse Resp BP Pulse Ox 97.2 F 67 18 115/73 96 02/06/18 11:22 02/06/18 11:22 02/06/18 11:22 02/06/18 11:22 02/06/18 11:22 Intake & Output 02/05/18 02/06/18 02/07/18 06:59 06:59 06:59 Intake Total 3081 3765 360 Output Total 1775 3575 Balance 1306 190 360 Weight 74.8 kg 74.1 kg General appearance: PRESENT: no acute distress, cooperative, disheveled Respiratory exam: PRESENT: crackles - Diffuse, unlabored. ABSENT: accessory muscle use, rhonchi, tachypnea, wheezes Cardiovascular exam: PRESENT: RRR, +S1, +S2. ABSENT: diastolic murmur, systolic murmur Vascular exam: PRESENT: normal capillary refill GI/Abdominal exam: PRESENT: normal bowel sounds, soft, other - He has a colostomy with some greenish liquid stool and gas in the bag. ABSENT: distended , guarding, rebound, tenderness Extremities exam: PRESENT: other - His feet are inverted and internally rotated with muscle wasting in the lower extremities. ABSENT: pedal edema Neurological exam: PRESENT: alert, awake, oriented to person, oriented to place , oriented to time, oriented to situation Psychiatric exam: PRESENT: appropriate affect, normal mood Results Laboratory Results: 02/06/18 10:45 02/06/18 10:45 02/06/18 02/06/18 10:45 10:45 WBC 20.9 H RBC 4.60 Hgb 11.4 L Hct 35.2 L MCV 77 L MCH 24.7 L MCHC 32.3 RDW 21.2 H Plt Count 454 H Sodium 142.1 Potassium 4.6 Chloride 113 H Carbon Dioxide 18 L Anion Gap 11 BUN 22 H Creatinine 0.61 Est GFR ( Amer) > 60 Est GFR (Non-Af Amer) > 60 Glucose 250 H Calcium 8.6 02/03/18 21:24 Sacrum - Decubitis Ulcer Gram Stain - Final Impressions: Chest X-Ray 02/03/18 17:03 IMPRESSION: In the appropriate clinical setting, findings are consistent with a multi lobar pneumonia. Pulmonary edema or pulmonary hemorrhage may have a similar appearance. Chest/Abdomen CTA 02/03/18 17:09 IMPRESSION: 1. No pulmonary emboli. 2. Diffuse ground-glass opacities the differential for which is broad, to include atypical pneumonitis, chronic infiltrative lung disease (NSIP, PAP, etc) , pulmonary edema, diffuse alveolar hemorrhage, hypersensitivity pneumonitis, or other. Venous Doppler Study 02/04/18 00:00 IMPRESSION: NO EVIDENCE DVT OR SVT IN EITHER LEG. Assessment & Plan - Diagnosis (1) Sepsis Qualifiers: Sepsis type: sepsis due to unspecified organism Qualified Code(s): A41.9 - Sepsis, unspecified organism Is this a current diagnosis for this admission?: Yes Plan: He has Clostridium difficile in the stool, and because of the infiltrates he was started on antibiotic treatment for possible HCAP. I have a strong suspicion that this was not pneumonia. He does not have a history that lends itself to a diagnosis of pneumonia. I believe he was developing ARDS, so I have stopped his IV antibiotics in favor of treating the Clostridium difficile only. Started him empirically on some thiamine and vitamin C in addition to the steroids he was already on. We will monitor his response closely to see if we need to go back for IV antibiotics. WBC count went back up today, but I think it is probably from the steroids he is on. They are scheduled to be discontinued after 4 days. (2) Clostridium difficile colitis Is this a current diagnosis for this admission?: Yes Plan: Oral vancomycin has been started, along with a probiotic. He agreed to do vancomycin enemas for his rectal stump as well. He is improving. Output into his colostomy bag has diminished substantially. (3) Multiple open wounds of pelvic region Is this a current diagnosis for this admission?: Yes Plan: Seen by surgery, and they recommended routine dressing changes. By the report, there was no signs of infection after the wounds were cleaned up. Antibiotics have been discontinued. Again, will monitor his response. His rectal discharge has diminished and so he should not have a trouble keeping the area clean. (4) Acute respiratory failure with hypoxia Is this a current diagnosis for this admission?: Yes Plan: He is on a few liters of oxygen per nasal cannula at this time and doing quite well. We will continue supplemental O2 to maintain an SPO2 greater than 90%. Again, I do not think that this was due to a pneumonia, but rather an early ARDS -like process. - Time Time Spent with patient: 25-34 minutes - Plan Summary Plan Summary: [facility] was scheduled to go home in a day or 2. He had been doing physical therapy there. We will try to resume physical therapy for him here. He will probably wind up going home when he leaves here and so he is probably getting home health for penitentiary and physical therapy.
[2018-02-06] MEDS: QUETIAPINE FUMARATE 25 MG TABLET PO SCH (21:16)
[2018-02-06] MEDS: ZOLPIDEM TARTRATE 5 MG TABLET PO SCH (21:17)
[2018-02-07] MEDS: METHYLPREDNISOLONE INJ 40 MG/1 ML SDV IV SCH ×3 (02:12→17:14)
[2018-02-07] MEDS: HYDROXYZINE PAMOATE 50 MG CAPSULE PO SCH ×6 (02:16→22:34)
[2018-02-07] MEDS: OXYCODONE HCL IR 5 MG TABLET PO PRN ×4 (03:10→22:33)
[2018-02-07] MEDS: HEPARIN SOD (PORCINE) 5,000 UNIT/ML 1 ML SYRINGE SUBCUT SCH ×3 (05:44→22:34)
[2018-02-07] MEDS: VANCOMYCIN HCL INJ 500 MG VIAL PO SCH ×3 (05:45→17:14)
[2018-02-07] MEDS: VANCOMYCIN HCL INJ 500 MG VIAL PR SCH ×3 (05:45→17:15)
[2018-02-07] MEDS: ASCORBIC ACID 500 MG TABLET PO SCH ×3 (05:46→17:12)
[2018-02-07] MEDS: HYDROMORPHONE HCL INJ/PF 2 MG/ML AMPULE IV PRN ×3 (05:46→14:35)
[2018-02-07] MEDS: PREGABALIN 50 MG CAPSULE PO SCH ×3 (05:47→22:32)
[2018-02-07] MEDS: NORMAL SALINE 1000 ML 1,000 ML IV PRN ×2 (05:48→22:45)
[2018-02-07] MEDS: INSULIN REG, HUMAN 100 UNIT/ML 3 ML VIAL (PYX) SUBCUT PRN ×4 (08:17→22:35)
[2018-02-07] MEDS: OXYCODONE-ACETAMINOPHEN 5-325 MG TABLET PO PRN ×2 (08:21→20:09)
[2018-02-07] MEDS: MORPHINE SULFATE SR 30 MG TABLET PO SCH ×2 (09:09→22:34)
[2018-02-07] MEDS: BUSPIRONE HCL 10 MG TABLET PO SCH ×2 (09:09→17:11)
[2018-02-07] MEDS: FERROUS SULFATE 325 MG TABLET PO SCH ×2 (09:09→17:14)
[2018-02-07] MEDS: THIAMINE HCL 100 MG in NORMAL SALINE 50 ML IV SCH ×2 (09:11→17:53)
[2018-02-07] MEDS: DOCUSATE SODIUM 100 MG CAPSULE PO SCH ×2 (09:11→17:51)
[2018-02-07] MEDS: INSULIN DETEMIR 100 UNIT/ML 3 ML PEN SUBCUT SCH ×2 (09:34→22:35)
--- NOTE | 2018-02-07 16:12 | PDOC PROGRESS REPORT ---
Subjective Progress Note for:: 02/07/18 Subjective:: Mr. Borges was admitted for acute respiratory distress and deemed to be likely from possibly ARDS and C. difficile colitis. No acute event overnight. Patient is tolerating diet well. He says that his stool consistency has been improving and is better for him. He says they are close to his baseline fluid consistency. Denies abdominal pain. No fever chills. Reason For Visit: ACUTE HYPOXIC RESPIRATORY FAILURE/HCAP Physical Exam Vital Signs: Temp Pulse Resp BP Pulse Ox 97.7 F 59 L 18 115/68 100 02/07/18 11:42 02/07/18 14:00 02/07/18 11:42 02/07/18 11:42 02/07/18 11:42 Intake & Output 02/06/18 02/07/18 02/08/18 06:59 06:59 06:59 Intake Total 3765 4790 749 Output Total 3575 6700 900 Balance 190 -1910 -151 Weight 163 lb 5.8 oz 171 lb 15.369 oz General appearance: PRESENT: no acute distress, well-developed, well-nourished Head exam: PRESENT: atraumatic, normocephalic Eye exam: PRESENT: conjunctiva pink, EOMI, PERRLA. ABSENT: scleral icterus Neck exam: ABSENT: carotid bruit, JVD, lymphadenopathy, thyromegaly Respiratory exam: PRESENT: clear to auscultation [place]. ABSENT: rales, rhonchi, wheezes Cardiovascular exam: PRESENT: RRR. ABSENT: diastolic murmur, rubs, systolic murmur Pulses: PRESENT: normal dorsalis pedis pul GI/Abdominal exam: PRESENT: soft, other - Note of slightly well-formed stools from ileostomy bag Rectal exam: PRESENT: deferred Extremities exam: PRESENT: full ROM. ABSENT: calf tenderness, clubbing, pedal edema Musculoskeletal exam: PRESENT: full ROM Neurological exam: PRESENT: alert, awake, oriented to person, oriented to place , oriented to time, oriented to situation. ABSENT: motor sensory deficit Skin exam: PRESENT: other - Note of multiple perineal and buttock ulcers with no active drainage, no erythema or tenderness. Results Laboratory Results: 02/06/18 10:45 02/06/18 10:45 02/03/18 21:24 Sacrum - Decubitis Ulcer Gram Stain - Final 02/03/18 21:24 Sacrum - Decubitis Ulcer Wound Culture - Final Proteus Mirabilis Mrsa (Meth Resis Staph Aureus) Escherichia Coli Skin [place] Impressions: Chest X-Ray 02/03/18 17:03 IMPRESSION: In the appropriate clinical setting, findings are consistent with a multi lobar pneumonia. Pulmonary edema or pulmonary hemorrhage may have a similar appearance. Chest/Abdomen CTA 02/03/18 17:09 IMPRESSION: 1. No pulmonary emboli. 2. Diffuse ground-glass opacities the differential for which is broad, to include atypical pneumonitis, chronic infiltrative lung disease (NSIP, PAP, etc) , pulmonary edema, diffuse alveolar hemorrhage, hypersensitivity pneumonitis, or other. Venous Doppler Study 02/04/18 00:00 IMPRESSION: NO EVIDENCE DVT OR SVT IN EITHER LEG. Assessment & Plan - Diagnosis (1) Sepsis Qualifiers: Sepsis type: sepsis due to unspecified organism Qualified Code(s): A41.9 - Sepsis, unspecified organism Is this a current diagnosis for this admission?: Yes Plan: Resolved. Sepsis is likely secondary to C. difficile colitis. (2) Clostridium difficile colitis Is this a current diagnosis for this admission?: Yes Plan: Improving. Still consistencies are close to his baseline. Currently getting vancomycin, oral and enema. (3) Acute respiratory failure with hypoxia Is this a current diagnosis for this admission?: Yes Plan: Resolved. This was deemed likely from ARDS. C. difficile colitis can also potentially cause ARDS (4) Hidradenitis suppurativa Is this a current diagnosis for this admission?: Yes Plan: Evaluated by surgery. Continue wound dressing changes. - Time Time Spent with patient: 15-24 minutes
[2018-02-07] MEDS: ZOLPIDEM TARTRATE 5 MG TABLET PO SCH (22:33)
[2018-02-07] MEDS: QUETIAPINE FUMARATE 25 MG TABLET PO SCH (22:34)
[2018-02-08] MEDS: VANCOMYCIN HCL INJ 500 MG VIAL PO SCH ×3 (00:42→11:01)
[2018-02-08] MEDS: VANCOMYCIN HCL INJ 500 MG VIAL PR SCH ×3 (00:43→11:01)
[2018-02-08] MEDS: METHYLPREDNISOLONE INJ 40 MG/1 ML SDV IV SCH ×2 (02:53→10:54)
[2018-02-08] MEDS: HYDROMORPHONE HCL INJ/PF 2 MG/ML AMPULE IV PRN ×3 (02:54→15:21)
[2018-02-08] MEDS: HYDROXYZINE PAMOATE 50 MG CAPSULE PO SCH ×4 (03:09→13:11)
[2018-02-08] MEDS: ASCORBIC ACID 500 MG TABLET PO SCH ×2 (06:11→11:00)
[2018-02-08] MEDS: HEPARIN SOD (PORCINE) 5,000 UNIT/ML 1 ML SYRINGE SUBCUT SCH ×2 (06:11→13:11)
[2018-02-08] MEDS: PREGABALIN 50 MG CAPSULE PO SCH ×2 (06:12→13:11)
[2018-02-08] MEDS: OXYCODONE HCL IR 5 MG TABLET PO PRN ×2 (06:24→13:11)
[2018-02-08] MEDS: THIAMINE HCL 100 MG in NORMAL SALINE 50 ML IV SCH (10:51)
[2018-02-08] MEDS: NORMAL SALINE 1000 ML 1,000 ML IV PRN (10:52)
[2018-02-08] MEDS: MORPHINE SULFATE SR 30 MG TABLET PO SCH (10:52)
[2018-02-08] MEDS: FERROUS SULFATE 325 MG TABLET PO SCH (10:52)
[2018-02-08] MEDS: BUSPIRONE HCL 10 MG TABLET PO SCH (10:52)
[2018-02-08] MEDS: INSULIN DETEMIR 100 UNIT/ML 3 ML PEN SUBCUT SCH (10:53)
[2018-02-08] MEDS: DOCUSATE SODIUM 100 MG CAPSULE PO SCH (10:54)
[2018-02-08] MEDS: INSULIN REG, HUMAN 100 UNIT/ML 3 ML VIAL (PYX) SUBCUT PRN (11:40)
[2018-02-08 12:49] VITALS: BP 131/71
--- NOTE | 2018-02-08 14:20 | PDOC TRANSFER SUMMARY ---
General - Admit/Disc Date/PCP Admission Date/Primary Care Provider: 02/03/18 19:50 DELROY CROUCH, Discharge Date: 02/08/18 - Discharge Diagnosis (1) Sepsis Is this a current diagnosis for this admission?: Yes (2) Clostridium difficile colitis Is this a current diagnosis for this admission?: Yes (3) Acute respiratory failure with hypoxia Is this a current diagnosis for this admission?: Yes (4) Hidradenitis suppurativa Is this a current diagnosis for this admission?: Yes - Additional Information Resuscitation Status: Full Code Discharge Diet: As Tolerated Discharge Activity: Activity As Tolerated, No Lifting/Push/Pulling Prescriptions: Doxycycline Monohydrate 150 mg PO BID 7 Days #14 tablet L. Acidophilus/Strept/LA P-Parish [Risaquad Capsules] 1 each PO Q8 7 Days #21 capsule Vancomycin HCl [Vancocin Inj 500 mg Vial] 125 mg CO Q6 6 Days #6 vial Vancomycin HCl [Vancocin Inj 500 mg Vial] 125 mg PO Q6 6 Days #6 vial Home Medications: Ondansetron HCl [Zofran 8 mg Tablet] 4 mg PO Q6HP PRN 08/24/17 Pregabalin [Lyrica 50 mg Capsule] 150 mg PO Q8 capsule 10/27/17 Ascorbic Acid [Vitamin C 500 mg Tablet] 500 mg PO BID 01/19/18 Buspirone HCl [Buspar 15 mg Tablet] 1 tab PO BID 01/19/18 Celecoxib [Celebrex 100 mg Capsule] 100 mg PO BID 01/19/18 Docusate Sodium [Colace 100 mg Capsule] 100 mg PO BID 01/19/18 Ferrous Sulfate [Feosol] 325 mg PO BID 01/19/18 Hydroxyzine HCl [Atarax 50 mg Tablet] 50 mg PO Q4 01/19/18 Insulin Detemir [Levemir] 15 unit SQ Q12 01/19/18 Insulin Lispro [Humalog] See Protocol SQ ACHS 01/19/18 Mag Hydrox/Al Hydrox/Simeth [Maalox Plus Susp 30 Udcup] 30 ml PO Q6 PRN Morphine Sulfate [Morphine Ir 30 mg Tablet] 90 mg PO Q12 01/19/18 Morphine Sulfate [Ms Contin] 90 mg PO Q12 01/19/18 Oxycodone HCl [Oxy-Ir 5 mg Tablet] 10 mg PO Q6HP PRN 01/19/18 Quetiapine Fumarate [Seroquel 25 mg Tablet] 50 mg PO QHS 01/19/18 Zolpidem Tartrate [Ambien 5 mg Tablet] 5 mg PO QHS 01/19/18 Acetaminophen [Tylenol 325 mg Tablet] 650 mg PO Q6HP PRN 02/03/18 Ascorbic Acid [Vitamin C 500 mg Tablet] 1,000 mg PO Q6HWA tablet 02/08/18 Doxycycline Monohydrate 150 mg PO BID 7 Days #14 tablet 02/08/18 L. Acidophilus/Strept/LA P-Parish [Risaquad Capsules] 1 each PO Q8 7 Days #21 capsule 02/08/18 Vancomycin HCl [Vancocin Inj 500 mg Vial] 125 mg PO Q6 6 Days #6 vial 02/08/18 Vancomycin HCl [Vancocin Inj 500 mg Vial] 125 mg CO Q6 6 Days #6 vial 02/08/18 History of Present Illness Admission Date/PCP: 02/03/18 19:50 DELROY CROUCH DO Patient complains of: SOB, abdominal pain, loose stools History of Present Illness: TIA VILLANUEVA is a 52 year old male with multiple comorbidities including Crohn's disease, prior ileostomy, hydradenitis suppurativa, chronic sacral and perineal ulcers, swelling dependent diabetes mellitus and chronic pain syndrome who was initially admitted after presenting with 6-7 day history of progressive shortness of breath, abdominal pain and watery stools. Hospital Course Hospital Course: Upon admission, patient was noted to be in respiratory distress and was hypoxic. Chest x-ray showed possible congestion versus pneumonia. CT of the chest was pursued and it showed nonspecific groundglass opacities with differentials including pulmonary edema and pneumonia. Patient was initially placed on IV broad-spectrum antibiotics patient also was tested for C. difficile because of abdominal pain and loose stools which are unusual for his baseline stool consistency. C. difficile did came back positive and patient was treated with oral vancomycin and vancomycin edema through the ileostomy. Chest CT findings and patient's hypoxia was deemed to be more of ARDS likely associated with C. difficile infection rather than pneumonia. Patient also had moderate drainage from his chronic pelvic and sacral ulcers. Cultures were done and when of the ulcer culture results came back positive for MRSA. Patient was eventually weaned off the BiPAP and nasal cannula and his respiratory status improved along with clinical improvement of his diarrhea. On day of admission, patient says that his stool consistency are back to his baseline. Patient was also comfortable and was saturating well on room air. He will be discharged on 6 more days of oral vancomycin and vancomycin edema. For his MRSA from the sacral ulcer, patient will be sent home on doxycycline. Physical Exam Vital Signs: Temp Pulse Resp BP Pulse Ox 97.8 F 62 18 131/71 H 96 02/08/18 11:27 02/08/18 11:27 02/08/18 11:27 02/08/18 11:27 02/08/18 11:27 Intake & Output 02/07/18 02/08/18 02/09/18 06:59 06:59 06:59 Intake Total 4790 3533 1131 Output Total 6700 4700 950 Balance -1910 -1167 181 Weight 171 lb 15.369 oz 164 lb 3.91 oz General appearance: PRESENT: no acute distress, well-developed, well-nourished Head exam: PRESENT: atraumatic, normocephalic Eye exam: PRESENT: conjunctiva pink, EOMI, PERRLA. ABSENT: scleral icterus Neck exam: ABSENT: carotid bruit, JVD, lymphadenopathy, thyromegaly Respiratory exam: PRESENT: clear to auscultation daija. ABSENT: rales, rhonchi, wheezes Cardiovascular exam: PRESENT: RRR. ABSENT: diastolic murmur, rubs, systolic murmur Pulses: PRESENT: normal dorsalis pedis pul GI/Abdominal exam: PRESENT: normal bowel sounds, soft, other - Note of greenish soft stools on the ileostomy bag which is patient's baseline stool consistency Rectal exam: PRESENT: deferred Extremities exam: PRESENT: full ROM Neurological exam: PRESENT: alert, oriented to person, oriented to place, oriented to time Psychiatric exam: PRESENT: appropriate affect, normal mood. ABSENT: homicidal ideation, suicidal ideation Skin exam: PRESENT: other - Note of chronic sacral and perineal ulcers with no active discharge Results Laboratory Results: 02/06/18 10:45 02/06/18 10:45 02/03/18 21:24 Sacrum - Decubitis Ulcer Gram Stain - Final 02/03/18 21:24 Sacrum - Decubitis Ulcer Wound Culture - Final Proteus Mirabilis Mrsa (Meth Resis Staph Aureus) Escherichia Coli Skin [place] Impressions: Chest X-Ray 02/03/18 17:03 IMPRESSION: In the appropriate clinical setting, findings are consistent with a multi lobar pneumonia. Pulmonary edema or pulmonary hemorrhage may have a similar appearance. Chest/Abdomen CTA 02/03/18 17:09 IMPRESSION: 1. No pulmonary emboli. 2. Diffuse ground-glass opacities the differential for which is broad, to include atypical pneumonitis, chronic infiltrative lung disease (NSIP, PAP, etc) , pulmonary edema, diffuse alveolar hemorrhage, hypersensitivity pneumonitis, or other. Venous Doppler Study 02/04/18 00:00 IMPRESSION: NO EVIDENCE DVT OR SVT IN EITHER LEG. Transfer Plan - Time Spent with Patient Time spent with patient: Greater than 30 Minutes Qualifiers - * PATIENT BEING DISCHARGED WITH ANY OF THE FOLLOWING DIAGNOSIS: No VTE patient discharged on overlapping Therapy?: Yes
== END 2018-02-08 16:35 | DRG 871 ==
LOC: ER 16:03 → EH 19:50 → 3N 02-04 15:28
PROVIDERS: ADMIT Internal Medicine; ATTEND Internal Medicine
PROC: 5A09457 Assistance with Respiratory Ventilation, 24-96 Consecutive Hours, Continuous Positive Airway Pressure (ICD-10-PCS; principal; 2018-02-03)
PROC: 3E0F73Z Introduction of Anti-inflammatory into Respiratory Tract, Via Natural or Artificial Opening (ICD-10-PCS; 2018-02-04)
DX: A41.9 Sepsis, unspecified organism (principal); J96.01 Acute respiratory failure with hypoxia; L89.154 Pressure ulcer of sacral region, stage 4; J18.9 Pneumonia, unspecified organism; A04.72 Enterocolitis due to Clostridium difficile, not specified as recurrent; K50.10 Crohn's disease of large intestine without complications; L73.2 Hidradenitis suppurativa; E11.9 Type 2 diabetes mellitus without complications; G89.4 Chronic pain syndrome; B95.62 Methicillin resistant Staphylococcus aureus infection as the cause of diseases classified elsewhere; B96.4 Proteus (mirabilis) (morganii) as the cause of diseases classified elsewhere; B96.20 Unspecified Escherichia coli [E. coli] as the cause of diseases classified elsewhere; M06.9 Rheumatoid arthritis, unspecified; F32.9 Major depressive disorder, single episode, unspecified; I10 Essential (primary) hypertension; D64.9 Anemia, unspecified; L89.152 Pressure ulcer of sacral region, stage 2; M21.371 Foot drop, right foot; I25.10 Atherosclerotic heart disease of native coronary artery without angina pectoris; M21.372 Foot drop, left foot; I25.2 Old myocardial infarction; L89.892 Pressure ulcer of other site, stage 2; Z79.4 Long term (current) use of insulin; Z79.899 Other long term (current) drug therapy; Z93.2 Ileostomy status; Z87.891 Personal history of nicotine dependence; Z88.3 Allergy status to other anti-infective agents; Z88.2 Allergy status to sulfonamides; Z88.8 Allergy status to other drugs, medicaments and biological substances
CPT/HCPCS: 36415; 71045; 71275; 80048; 80053; 80076; 80202; 81001; 82550; 82553; 82803; 82962; 83605; 83735; 83880; 84100; 84484; 85025; 85027; 87040; 87070; 87077; 87086; 87186; 87205; 87493; 93005; 93010; 93970; 94660; 96374; 99285; J0744; J1170; J1644; J1815; J2060; J2270; J2543; J2550; J2920; J3370; J3411; J3490; J7030; J7060; S0119

== ENCOUNTER 2018-05-24 06:55 | Inpatient (IN) | payer MEDICARE, MEDICAID ==
[2018-05-24] MEDS ORDERED: HYDROMORPHONE HCL INJ/PF 2 MG/ML AMPULE IV ONE ×3 (07:46→16:33)
[2018-05-24] MEDS ORDERED: NORMAL SALINE 1000 ML 1,000 ML IV ONE (07:46)
--- NOTE | 2018-05-24 07:50 | ER Document Report ---
ED General - General Chief Complaint: Back Pain Stated Complaint: BODY PAIN Time Seen by Provider: 05/24/18 07:34 TRAVEL OUTSIDE OF THE [place] IN LAST 30 DAYS: No - HPI Notes: Patient is a 52-year-old male that presents to the emergency department for chief complaint of generalized pain and abscesses. Patient reports right axillary abscess for the last 3-4 days. He denies any spontaneous drainage. He states it is a sharp pain that is worse anytime he moves his right arm. He denies any relieving factors. He is in pain management and has been taking 30 mg oxycodone at home with no improvement. He will reports a chronic sacral wound that had previously had a wound VAC on it that has had increased pain as well. He reports that he has not been able to get in to see his wound care Dr. Valle because the pain is been so severe. He reports subjective fevers but has not taken his temperature at home. He denies any nausea, vomiting, bloody stools or difficulty with bowel movements, chest pain and shortness of breath. Past Medical History: Reviewed in chart Past Surgical History: Colostomy, back surgery Social History: Denies drugs alcohol and tobacco Family History: Reviewed and noncontributory for presenting illness Allergies: Reviewed, see documented allergy list. REVIEW OF SYSTEMS: CONSTITUTIONAL : fever No chills No diaphoresis No recent illness EENT: No vision changes No congestion No sore throat CARDIOVASCULAR: No chest pain No palpitations RESPIRATORY: No shortness of breath No cough No difficulty breathing GASTROINTESTINAL: No abdominal pain No nausea No vomiting No diarrhea GENITOURINARY: No dysuria No hematuria No difficulty urinating MUSCULOSKELETAL: back pain No leg pain arm pain SKIN: No rashes No lesions LYMPHATIC: No swollen, enlarged glands. NEUROLOGICAL: No lightheadedness No headache No weakness No paresthesias PSYCHIATRIC: No anxiety No depression PHYSICAL EXAMINATION: Vital signs reviewed, nursing noted reviewed. GENERAL: Well-appearing, well-nourished and in no acute distress. HEAD: Atraumatic, normocephalic. EYES: Eyes appear normal, extraocular movements intact, sclera anicteric, conjunctiva are normal. ENT: nares patent, oropharynx clear without exudates. Moist mucous membranes. NECK: Normal range of motion, supple without lymphadenopathy LUNGS: Breath sounds clear to auscultation bilaterally and equal. No wheezes rales or rhonchi. HEART: Regular rate and rhythm without murmurs ABDOMEN: Soft, nontender, normoactive bowel sounds. No rebound, guarding, or rigidity. No masses appreciated. : No scrotal edema or crepitus EXTREMITIES: Nontender, good range of motion, no pitting or edema. NEUROLOGICAL: No focal neurological deficits. Moves all extremities spontaneously Motor and sensory grossly intact on exam. PSYCH: Normal mood, normal affect. SKIN: Warm, Dry, normal turgor, 3.0 cm x 4.0 cm right axillary abscess with fluctuance and overlying erythema, no active drainage. large complex sacral wound with multiple open areas and purulent drainage, tender to palpation, erythematous. - Related Data Allergies/Adverse Reactions: atropine Allergy (Verified 05/24/18 07:25) itching, "scratchy throat" atropine sulfate [From Lomotil] Allergy (Verified 05/24/18 07:25) itching, hives diphenoxylate HCl [From Lomotil] Allergy (Verified 05/24/18 07:25) itching, hives erythromycin base [Erythromycin Base] Allergy (Verified 05/24/18 07:25) itching paroxetine HCl [From Paxil] Allergy (Verified 05/24/18 07:25) itching Sulfa (Sulfonamide Antibiotics) Allergy (Verified 05/24/18 07:25) Migraines, fatigue sulfamethoxazole [From Bactrim] Allergy (Verified 05/24/18 07:25) ithing, GI problems trimethoprim [From Bactrim] Allergy (Verified 05/24/18 07:25) itching, GI problems Past Medical History - Social History Smoking Status: Current Some Day Smoker Chew tobacco use (# tins/day): No Frequency of alcohol use: None Drug Abuse: None Family History: Other - Crohn's-sister Patient has suicidal ideation: No Patient has homicidal ideation: No - Past Medical History Cardiac Medical History: Reports: Hx Heart Attack - NOVEMBER 2014, Hx Hypertension Denies: Hx Coronary Artery Disease Pulmonary Medical History: Reports: Hx Asthma, Hx Pneumonia Denies: Hx Bronchitis, Hx COPD Neurological Medical History: Reports: Hx Seizures - pt denies . Denies: Hx Cerebrovascular Accident Endocrine Medical History: Reports: Hx Diabetes Mellitus Type 2 Renal/ Medical History: Denies: Hx Peritoneal Dialysis GI Medical History: Reports: Hx Crohn's Disease Musculoskeletal Medical History: Reports Hx Arthritis - RA, chronic pain Psychiatric Medical History: Reports: Hx Depression Past Surgical History: Reports: Hx Colostomy, Other - Multiple wound debridements over the last 2 months - Immunizations Hx Diphtheria, Pertussis, Tetanus Vaccination: No - Pt denies Review of Systems - Review of Systems Notes: Dictated Physical Exam - Vital signs Vitals: Temp Pulse Resp BP Pulse Ox 97.8 F 131 H 18 104/74 96 05/24/18 07:07 05/24/18 07:07 05/24/18 07:07 05/24/18 07:07 05/24/18 07:07 - Notes Notes: Dictated Course - Re-evaluation Re-evalutation: 05/24/18 14:07 Vitals reviewed. Nursing notes reviewed. Patient has remained hemodynamically stable while in the emergency room. He was given multiple doses of IV medication for pain control. Right axillary abscess was incised and drained with packing, see procedure note. Patient's lab work shows a leukocytosis with no other Sirs criteria. He is not septic. He does have an extensive sacral wound which is chronic but acutely infected. Patient was given vancomycin for his sacral cellulitis. CT shows no Citlali's gangrene or areas of abscess. Patient will be admitted to the hospital for wound care and IV antibiotics. Case discussed with Dr. Brantley who accepted admission. Laboratory 05/24/18 05/24/18 05/24/18 10:20 11:21 11:21 WBC 23.8 H RBC 4.20 L Hgb 11.1 L Hct 33.3 L MCV 79 L MCH 26.4 L MCHC 33.2 RDW 16.2 H Plt Count 722 H Total Counted 100 Seg Neutrophils % Not Reportable Seg Neuts % (Manual) 76 Lymphocytes % Not Reportable Lymphocytes % (Manual) 18 Monocytes % Not Reportable Monocytes % (Manual) 5 Eosinophils % Not Reportable Eosinophils % (Manual) 0 Basophils % Not Reportable Basophils % (Manual) 1 Absolute Neutrophils Not Reportable Abs Neuts (Manual) 18.1 H Absolute Lymphocytes Not Reportable Abs Lymphs (Manual) 4.3 Absolute Monocytes Not Reportable Abs Monocytes (Manual) 1.2 Absolute Eosinophils Not Reportable Absolute Eos (Manual) 0.0 Absolute Basophils Not Reportable Abs Basophils (Manual) 0.2 Toxic Granulation SLIGHT Toxic Vacuolation PRESENT Platelet Comment INCREASED Hypochromasia SLIGHT Microcytosis SLIGHT Target Cells SLIGHT Sodium 137.1 Potassium 4.7 Chloride 101 Carbon Dioxide 22 Anion Gap 14 BUN 17 Creatinine 0.73 Est GFR ( Amer) > 60 Est GFR (Non-Af Amer) > 60 Glucose 131 H Lactic Acid 0.5 L Calcium 9.[address] 05/24/18 07:46 IMPRESSION: No evidence of abscess or osteomyelitis. - Vital Signs Vital signs: Temp Pulse Resp BP Pulse Ox 98.3 F 131 H 12 100/70 96 05/24/18 13:26 05/24/18 07:07 05/24/18 11:01 05/24/18 11:01 05/24/18 11:01 - Laboratory Result Diagrams: 05/24/18 11:21 05/24/18 10:20 Laboratory results interpreted by me: 05/24/18 05/24/18 05/24/18 10:20 11:21 11:21 WBC 23.8 H RBC 4.20 L Hgb 11.1 L Hct 33.3 L MCV 79 L MCH 26.4 L RDW 16.2 H Plt Count 722 H Abs Neuts (Manual) 18.1 H Glucose 131 H Lactic Acid 0.5 L Procedures - Incision and Drainage Right Time completed: 12:53 - Right axilla Type: Single Anesthetic type: 1% Lidocaine w/epi mL's of anesthetic: 3 Blade size: 11 I&D procedure: Chlorprep applied Incision Method: Incision made by scalpel Notes: 05/24/18 12:54 1.0 cm incision made with 11 blade scalpel over right axillary abscess. Copious amounts of purulence was expressed. Loculations broken up with curvilinear clamp. Iodoform packing placed. Bulky gauze dressing placed over incision site. Patient tolerated with no immediate complications. Discharge - Discharge Clinical Impression: Axillary abscess, Cellulitis of sacral region Sacral wound Qualifiers: Encounter type: initial encounter Qualified Code(s): S31.000A - Unspecified open wound of lower back and pelvis without penetration into retroperitoneum, initial encounter Condition: Stable Disposition: ADMITTED OBSERVATION Admitting Provider: Hospitalist Unit Admitted: Medical Floor
[2018-05-24 10:57] LABS: POTASSIUM 4.7 mmol/L (3.6-5.0)
[2018-05-24 11:00] LABS: BLOOD UREA NITROGEN 17 mg/dL (7-20); CALCIUM 9.5 mg/dL (8.4-10.2); CARBON DIOXIDE 22 mmol/L (22-30); CHLORIDE 101 mmol/L (98-107); GLUCOSE 131 mg/dL (75-110)
[2018-05-24 11:02] LABS: ANION GAP 14 (5-19); SODIUM 137.1 mmol/L (137-145)
[2018-05-24 11:40] LABS: HEMATOCRIT 33.3 % (37.9-51.0); HEMOGLOBIN 11.1 g/dL (13.5-17.0); MEAN CORPUSCULAR HEMOGLOBIN 26.4 pg (27.0-33.4); MEAN CORPUSCULAR HGB CONC 33.2 g/dL (32.0-36.0); MEAN CORPUSCULAR VOLUME 79 fl (80-97); PLATELET COUNT 722 10^3/uL (150-450); RED CELL DISTRIBUTION WIDTH 16.2 % (11.5-14.0); WHITE BLOOD COUNT 23.8 10^3/uL (4.0-10.5)
[2018-05-24] MEDS ORDERED: KETOROLAC TROMETHAMINE INJ/PF 30 MG/1 ML SDV IV ONE (11:48)
[2018-05-24 12:20] LABS: ABSOLUTE LYMPHOCYTES# (MANUAL) 4.3 10^3/uL (0.5-4.7); ABSOLUTE MONOCYTES # (MANUAL) 1.2 10^3/uL (0.1-1.4); ABSOLUTE NEUTROPHILS# (MANUAL) 18.1 10^3/uL (1.7-8.2); BASOPHILS % (MANUAL) 1 % (0-2); EOSINOPHILS % (MANUAL) 0 % (0-6); HYPOCHROMASIA SLIGHT; LYMPHOCYTES % (MANUAL) 18 % (13-45); MONOCYTES % (MANUAL) 5 % (3-13); PLATELET COMMENT INCREASED; SEGMENTED NEUTROPHILS % (MAN) 76 % (42-78); TARGET CELLS SLIGHT; TOTAL CELLS COUNTED 100; TOXIC GRANULATION SLIGHT; TOXIC VACUOLATION PRESENT
[2018-05-24] MEDS ORDERED: LIDOCAINE 1%/EPINEPHRINE INJ 20 ML VIAL INJ ONE (12:20)
[2018-05-24] MEDS ORDERED: VANCOMYCIN HCL INJ 1000 MG VIAL IV ONE (12:21)
--- NOTE | 2018-05-24 12:59 | RADIOLOGY REPORT (SQ) ---
EXAM DESCRIPTION: CT PELVIS WITH COMPLETED DATE/TIME: 05/24/2018 12:26 pm REASON FOR STUDY: sacral wound/abscess COMPARISON: None. TECHNIQUE: CT scan of the pelvis performed with intravenous contrast. Images reviewed with soft tis zuhair and bone windows. Reconstructed coronal and sagittal MPR images reviewed. All images stored on PACS. All CT scanners at this facility use dose modulation, iterative reconstruction, and/or weight based d osing when appropriate to reduce radiation dose to as low as reasonably achievable (ALARA). [facility]: Dose Right [facility]: CareDose [facility]: Dose Right [facility]: Teradose 4D [facility]: Sauce Labs RADIATION DOSE: CT Rad equipment meets quality standard of care and radiation dose reduction techniq ues were employed. CTDIvol: 5.5 - 7.1 mGy. DLP: 865 mGy-cm. mGy. LIMITATIONS: None. FINDINGS: PELVIC BONES: No acute fracture. No worrisome bone lesions. VISUALIZED SPINE: No acute findings. HIP(S): No acute fracture or dislocation. No worrisome bone lesions. PELVIC SOFT TISSUES: Sacral decubitus to left of midline. Chronic inflammation in the soft tissues o f the medial left proximal thigh. No organized fluid collection. EXTRAPELVIC SOFT TISSUES: No significant findings. OTHER: No other significant finding. IMPRESSION: No evidence of abscess or osteomyelitis. TECHNICAL DOCUMENTATION: JOB ID: [id number] Quality ID # [id number]: Final reports with documentation of one or more dose reduction techniques (e.g., Au tomated exposure control, adjustment of the mA and/or kV according to patient size, use of iterative reconstruction technique) 2010 [employer]- All Rights Reserved Reading location - IP/workstation name: [email or web address]
[2018-05-24] MEDS ORDERED: ONDANSETRON 4 MG TAB.RAPDIS PO PRN (16:25)
[2018-05-24] MEDS ORDERED: ACETAMINOPHEN 325 MG TABLET PO PRN (16:25)
[2018-05-24] MEDS ORDERED: METFORMIN HCL 500 MG TABLET PO SCH (18:00)
[2018-05-24] MEDS: ENOXAPARIN SODIUM INJ 40 MG/0.4 ML DISP.SYRIN SUBCUT SCH (18:31)
[2018-05-24] MEDS: DULOXETINE HCL 30 MG CAPSULE.DR PO SCH (18:31)
[2018-05-24] MEDS: OXYCODONE HCL IR 5 MG TABLET PO PRN (18:33)
[2018-05-24] MEDS ORDERED: VANCOMYCIN HCL 0 MG in DEXTROSE 5%-WATER 250 ML IV NR (19:00)
[2018-05-24] MEDS ORDERED: GLUCAGON,HUMAN RECOMB 1 MG INJ IM PRN (19:17)
[2018-05-24] MEDS ORDERED: DEXTROSE 40% GEL 15 GM TUBE PO PRN ×2 (19:17)
[2018-05-24] MEDS ORDERED: DEXTROSE 50%-WATER 25 GM/50 ML DISP.SYRIN IV PRN ×2 (19:17)
--- NOTE | 2018-05-24 19:21 | PDOC H&P ---
History of Present Illness Admission Date/PCP: 05/24/18 14:17 DELROY CROUCH DO Patient complains of: Worsening of chronic wound right ischium and buttock. Right axillary swelling and pain History of Present Illness: TIA VILLANUEVA is a 52 year old male has a long history of ulcerations. He reports receiving a colostomy in 2013 to prevent stool from contaminating a chronic ulcer. He was just hospitalized from August 24 - February 24 initially at this hospital than at a long-term acute care hospital and finally at a rehab hospital. He is back today complaining of increased pain at the ulcer site, increased drainage and discomfort in the right axilla. He has been following at the wound care clinic for the ischial ulcer however he states that he missed his last appointment because he was in too much pain to travel to the facility. He has had multiple surgeries in the past. In general he states that he has lost "20 pounds over the last few months" and has had a very poor appetite. The colostomy bag has liquid stool present. During the encounter he had significant complaints of pain both in the buttock area radiating to his legs as well as the right axilla and right arm. Of note the patient had a hard time recalling all of his medical history. His sister provided some information but most of the information was from his medical records. Past Medical History Cardiac Medical History: Reports: Myocardial Infarction - NOVEMBER 2014, Hypertension Denies: Coronary Artery Disease Pulmonary Medical History: Reports: Asthma, Pneumonia Denies: Bronchitis, Chronic Obstructive Pulmonary Disease (COPD) Neurological Medical History: Reports: Seizures - pt denies Endocrine Medical History: Reports: Diabetes Mellitus Type 2 GI Medical History: Reports: Crohn's Disease Musculoskeltal Medical History: Reports: Arthritis - RA, chronic pain Psychiatric Medical History: Reports: Depression Hematology: Reports: Anemia Past Surgical History Past Surgical History: Reports: Colostomy, Other - Multiple wound debridements over the last 2 months Social History Information Source: Patient - And his sister Lives with: Alone Smoking Status: Current Every Day Smoker Frequency of Alcohol Use: Rare Hx Recreational Drug Use: No Drugs: None Hx Prescription Drug Abuse: No - Advance Directive Resuscitation Status: Full Code Family History Family History: Other - Crohn's-sister Parental Family History Reviewed: Yes Children Family History Reviewed: Yes Sibling(s) Family History Reviewed.: Yes Medication/Allergy Home Medications: Celecoxib [Celebrex 100 mg Capsule] 100 mg PO Q12 05/24/18 Duloxetine HCl [Cymbalta] 60 mg PO BID 05/24/18 Gabapentin [Neurontin] 600 mg PO TID 05/24/18 Hydroxyzine HCl [Atarax 50 mg Tablet] 50 mg PO QID 05/24/18 Insulin Detemir [Levemir] 15 units SQ BID 05/24/18 Levorphanol Tartrate 2 mg PO QID 05/24/18 Lisinopril [Prinivil 5 mg Tablet] 5 mg PO DAILY 05/24/18 Metformin HCl [Glucophage] 1,000 mg PO BID 05/24/18 Ondansetron HCl [Zofran 4 mg Tablet] 4 mg PO Q6HP PRN 05/24/18 Oxycodone HCl [Roxicodone] 30 mg PO Q8HP PRN 05/24/18 Zolpidem Tartrate [Ambien 5 mg Tablet] 2.5 mg PO QHS 05/24/18 Allergies/Adverse Reactions: atropine Allergy (Verified 05/24/18 07:25) itching, "scratchy throat" atropine sulfate [From Lomotil] Allergy (Verified 05/24/18 07:25) itching, hives diphenoxylate HCl [From Lomotil] Allergy (Verified 05/24/18 07:25) itching, hives erythromycin base [Erythromycin Base] Allergy (Verified 05/24/18 07:25) itching paroxetine HCl [From Paxil] Allergy (Verified 05/24/18 07:25) itching Sulfa (Sulfonamide Antibiotics) Allergy (Verified 05/24/18 07:25) Migraines, fatigue sulfamethoxazole [From Bactrim] Allergy (Verified 05/24/18 07:25) ithing, GI problems trimethoprim [From Bactrim] Allergy (Verified 05/24/18 07:25) itching, GI problems Review of Systems Constitutional: PRESENT: anorexia, weakness, weight loss. ABSENT: chills, night sweats Eyes: ABSENT: visual disturbances Ears: ABSENT: hearing changes Nose, Mouth, and Throat: ABSENT: headache(s), mouth pain, sore throat Cardiovascular: ABSENT: chest pain, edema, palpitations Respiratory: ABSENT: cough, dyspnea, hemoptysis Gastrointestinal: PRESENT: abdominal pain, diarrhea. ABSENT: bloating, hematemesis, melena Genitourinary: ABSENT: dysuria, hematuria Musculoskeletal: PRESENT: muscle weakness Integumentary: PRESENT: wounds - Ischial wounds and new right axillary abscess Neurological: PRESENT: confusion - Poor historian likely due to infection and pain., memory loss. ABSENT: convulsions Psychiatric: PRESENT: anxiety, other - Frustrated with the nonhealing wounds and his current condition. Endocrine: ABSENT: cold intolerance, heat intolerance Hematologic/Lymphatic: ABSENT: easy bleeding, easy bruising Allergic/Immunologic: ABSENT: seasonal rhinorrhea Physical Exam Vital Signs: Temp Pulse Resp BP Pulse Ox 99.9 F 82 17 105/68 96 05/24/18 17:55 05/24/18 17:55 05/24/18 17:55 05/24/18 17:55 05/24/18 17:55 Intake & Output 05/23/18 05/24/18 05/25/18 06:59 06:59 06:59 Output Total 100 Balance -100 Weight 60 kg General appearance: PRESENT: cooperative - Difficult to obtain complete history as the patient was in significant pain and this affected his concentration and recall., thin, well-developed Head exam: PRESENT: atraumatic, normocephalic Eye exam: PRESENT: conjunctiva pink, EOMI. ABSENT: scleral icterus Ear exam: PRESENT: other - Defect in the right ear antihelix area Mouth exam: PRESENT: dry mucosa Neck exam: ABSENT: carotid bruit, JVD, lymphadenopathy Respiratory exam: PRESENT: clear to auscultation daija, symmetrical, unlabored. ABSENT: rales, rhonchi, wheezes Cardiovascular exam: PRESENT: RRR, +S1, +S2 GI/Abdominal exam: PRESENT: normal bowel sounds, tenderness, other - Colostomy in place.. ABSENT: distended, soft Extremities exam: PRESENT: other - Feet very tender.. ABSENT: calf tenderness Musculoskeletal exam: PRESENT: deformity - Both feet with plantar flexion. Decreased range of motion and foot pain bilaterally., other - There is swelling in the right arm with mild erythema. The arm is quite tender. Neurological exam: PRESENT: altered - As noted above the patient had a very short attention span and poor recall most likely because of the pain., awake, oriented to person, oriented to place, CN II-XII grossly intact Psychiatric exam: PRESENT: appropriate affect - His affect reflected his discomfort. Skin exam: PRESENT: erythema, other - Packing in right axillary abscess that was drained. In the right ischial area extending to the distal buttock there are multiple openings with clemons colored drainage. There is significant induration around the wound openings. The area is quite tender.. ABSENT: jaundice Results Laboratory Results: White blood cell count elevated at 23.8. Basic metabolic panel unremarkable except for slightly elevated glucose. Impressions: Pelvis CT 05/24/18 07:46 IMPRESSION: No evidence of abscess or osteomyelitis. Assessment & Plan - Diagnosis (1) Decubitus ulcer of left ischial area Qualifiers: Pressure injury stage: stage 4 Qualified Code(s): L89.324 - Pressure ulcer of left buttock, stage 4 Is this a current diagnosis for this admission?: Yes Plan: Significant swelling and several openings from ulcerations. These are chronic issues. The increased draining and induration suggest an acute infection. The patient has been following at the wound care clinic and has had wounds in this area for a long time. I started the patient on vancomycin and Zosyn. I will obtain a surgical consult in the morning. I have asked for repositioning every 2 hours. The patient does have narcotic analgesia available. (2) Cellulitis and abscess of buttock Is this a current diagnosis for this admission?: Yes Plan: Antibiotics and analgesia as above. I did not write for a specific dressing at this time. Having the patient on an absorbent pad is adequate initially. (3) Axillary abscess Is this a current diagnosis for this admission?: Yes Plan: The patient had a right axillary abscess. He does cause some swelling and discomfort in his right arm. The abscess was incised and drained in the emergency department and packing was placed. We will have surgery monitor this wound as well. (4) Diabetes mellitus type 2 in nonobese Is this a current diagnosis for this admission?: Yes Plan: The patient will be on his Levemir with a Humalog sliding scale. It is possible that the metformin is contributing to his diarrhea and so I will hold his metformin temporarily. - Time Time Spent: 50 to 70 Minutes Medications reviewed and adjusted accordingly: Yes - Inpatient Certification Based on my medical assessment, after consideration of the patient's comorbidities, presenting symptoms, or acuity I expect that the services needed warrant INPATIENT care.: Yes I certify that my determination is in accordance with my understanding of Medicare's requirements for reasonable and necessary INPATIENT services [42 CFR 412.3e].: Yes Medical Necessity: Failure to Improve With Outpatient Therapy, Need Close Monitoring Due to Risk of Patient Decompensation, Need for IV Antibiotics, Need for Surgery
[2018-05-24] MEDS: HYDROXYZINE HCL 10 MG TABLET PO SCH (20:38)
[2018-05-24] MEDS: GABAPENTIN 300 MG CAPSULE PO SCH (22:45)
[2018-05-24] MEDS: CELECOXIB 100 MG CAPSULE PO SCH (22:45)
[2018-05-24] MEDS: ZOLPIDEM TARTRATE 5 MG TABLET PO SCH (22:50)
[2018-05-24] MEDS: VANCOMYCIN HCL 750 MG in DEXTROSE 5%-WATER 250 ML IV SCH (22:57)
[2018-05-24] MEDS: INSULIN DETEMIR 100 UNIT/ML 3 ML PEN SUBCUT SCH (23:00)
[2018-05-24] MEDS: HYDROMORPHONE HCL INJ/PF 2 MG/ML AMPULE IV PRN (23:33)
[2018-05-25] MEDS: HYDROXYZINE HCL 10 MG TABLET PO SCH ×2 (00:46→05:21)
[2018-05-25] MEDS: PIPERACILLIN SODIUM/TAZOBACTAM 3.375 GM in NORMAL SALINE 100 ML IV SCH ×5 (00:50→23:47)
[2018-05-25] MEDS: OXYCODONE HCL IR 5 MG TABLET PO PRN ×3 (02:48→16:36)
[2018-05-25] MEDS: HYDROMORPHONE HCL INJ/PF 2 MG/ML AMPULE IV PRN ×3 (04:31→20:05)
[2018-05-25 04:49] LABS: ANION GAP 13 (5-19); BLOOD UREA NITROGEN 12 mg/dL (7-20); CALCIUM 9.2 mg/dL (8.4-10.2); CARBON DIOXIDE 23 mmol/L (22-30); CHLORIDE 103 mmol/L (98-107); GLUCOSE 109 mg/dL (75-110); POTASSIUM 4.3 mmol/L (3.6-5.0); SODIUM 139.1 mmol/L (137-145)
[2018-05-25] MEDS: GABAPENTIN 300 MG CAPSULE PO SCH ×3 (05:20→21:40)
[2018-05-25] MEDS: VANCOMYCIN HCL 750 MG in DEXTROSE 5%-WATER 250 ML IV SCH ×3 (05:53→21:44)
[2018-05-25] MEDS ORDERED: LANSOPRAZOLE 15 MG TAB.RAP.DR PO SCH (06:00)
[2018-05-25] MEDS: LISINOPRIL 5 MG TABLET PO SCH (10:03)
[2018-05-25] MEDS: CELECOXIB 100 MG CAPSULE PO SCH ×2 (10:03→21:42)
[2018-05-25] MEDS: DULOXETINE HCL 30 MG CAPSULE.DR PO SCH ×2 (10:03→17:15)
[2018-05-25] MEDS: ENOXAPARIN SODIUM INJ 40 MG/0.4 ML DISP.SYRIN SUBCUT SCH (10:04)
[2018-05-25] MEDS: INSULIN DETEMIR 100 UNIT/ML 3 ML PEN SUBCUT SCH ×2 (10:04→21:43)
[2018-05-25] MEDS: HYDROXYZINE PAMOATE 50 MG CAPSULE PO SCH ×3 (13:04→23:46)
--- NOTE | 2018-05-25 21:33 | PDOC PROGRESS REPORT ---
Subjective Progress Note for:: 05/25/18 Subjective:: The patient still complains of significant pain. Reason For Visit: INFECTED BUTTOCK ULCER,ABSCESS RIGHT AXILLA Physical Exam Vital Signs: Temp Pulse Resp BP Pulse Ox 98.6 F 82 20 95/60 L 99 05/25/18 21:00 05/25/18 21:00 05/25/18 21:00 05/25/18 21:00 05/25/18 21:00 Intake & Output 05/24/18 05/25/18 05/26/18 06:59 06:59 06:59 Intake Total 1011 1160 Output Total 950 900 Balance 61 260 Weight 63.5 kg General appearance: PRESENT: cooperative, well-developed - Appears to be in moderate to severe pain Neck exam: ABSENT: carotid bruit, JVD, lymphadenopathy Respiratory exam: PRESENT: clear to auscultation daija, symmetrical, unlabored, other - He reports that the right axilla hurts with deep inspiration.. ABSENT: rales, rhonchi, wheezes Cardiovascular exam: PRESENT: RRR, +S1, +S2 GI/Abdominal exam: PRESENT: normal bowel sounds, soft, tenderness - Colostomy bag still with liquid stool.. ABSENT: distended, guarding Extremities exam: PRESENT: other - Right arm still with some swelling. Discomfort with movement. Neurological exam: PRESENT: alert, awake, oriented to person, oriented to place , oriented to situation Psychiatric exam: PRESENT: appropriate affect - Affect reflects his discomfort. Results Laboratory Results: 05/25/18 04:24 05/25/18 04:24 Sodium 139.1 Potassium 4.3 Chloride 103 Carbon Dioxide 23 Anion Gap 13 BUN 12 Creatinine 0.60 Est GFR ( Amer) > 60 Est GFR (Non-Af Amer) > 60 Glucose 109 Calcium 9.2 Impressions: Pelvis CT 05/24/18 07:46 IMPRESSION: No evidence of abscess or osteomyelitis. Assessment & Plan - Diagnosis (1) Decubitus ulcer of left ischial area Qualifiers: Pressure injury stage: stage 4 Qualified Code(s): L89.324 - Pressure ulcer of left buttock, stage 4 Is this a current diagnosis for this admission?: Yes Plan: Significant swelling and several openings from ulcerations. These are chronic issues. The increased draining and induration suggest an acute infection. The patient has been following at the wound care clinic and has had wounds in this area for a long time. I started the patient on vancomycin and Zosyn. I will obtain a surgical consult in the morning. I have asked for repositioning every 2 hours. The patient does have narcotic analgesia available. 05/25/2018-Dr. Valle, who has been seeing the patient at the wound clinic, is in fact away. I will consult the on-call surgeon for evaluation. (2) Cellulitis and abscess of buttock Is this a current diagnosis for this admission?: Yes Plan: Antibiotics and analgesia as above. I did not write for a specific dressing at this time. Having the patient on an absorbent pad is adequate initially. 05/25/2018-as noted above surgery will see the patient. Continue vancomycin and Zosyn for the time being. (3) Axillary abscess Is this a current diagnosis for this admission?: Yes Plan: The patient had a right axillary abscess. He does cause some swelling and discomfort in his right arm. The abscess was incised and drained in the emergency department and packing was placed. We will have surgery monitor this wound as well. 05/25/2018-already on vancomycin and Zosyn. I will remove the Coban wrap from the arm. This should help decrease the swelling in the arm and hopefully decrease some of the discomfort. We will apply a dry sterile gauze secured with paper tape. Surgery will evaluate the patient tomorrow. (4) Diabetes mellitus type 2 in nonobese Is this a current diagnosis for this admission?: Yes Plan: The patient will be on his Levemir with a Humalog sliding scale. It is possible that the metformin is contributing to his diarrhea and so I will hold his metformin temporarily. 05/25/2018-I have discontinued the metformin because of the diarrhea. We will continue the Levemir with Humalog sliding scale. The patient does state that he has been on metformin for some time and this has not been a problem. I will still hold it temporarily. (5) Chronic pain Qualifiers: Chronic pain type: chronic pain syndrome Qualified Code(s): G89.4 - Chronic pain syndrome Is this a current diagnosis for this admission?: Yes Plan: The patient reported that the regimen he was on was not effective. He is on gabapentin and duloxetine in addition to narcotic analgesia. In addition to the OxyContin 20 mg twice daily I have added medial release 10 mg every 4 hours as needed for pain. He still has 1 mg Dilaudid every 4 hours if needed. - Time Time Spent with patient: 25-34 minutes Medications reviewed and adjusted accordingly: Yes
[2018-05-25] MEDS: OXYCODONE HCL SR 10 MG TABLET PO SCH (21:41)
[2018-05-25] MEDS: ZOLPIDEM TARTRATE 5 MG TABLET PO SCH (21:42)
[2018-05-26] MEDS: HYDROMORPHONE HCL INJ/PF 2 MG/ML AMPULE IV PRN ×4 (00:18→18:33)
[2018-05-26] MEDS: OXYCODONE HCL IR 5 MG TABLET PO PRN ×4 (03:44→20:36)
[2018-05-26] MEDS: HYDROXYZINE PAMOATE 50 MG CAPSULE PO SCH ×3 (05:49→18:04)
[2018-05-26] MEDS: GABAPENTIN 300 MG CAPSULE PO SCH ×3 (06:02→22:41)
[2018-05-26] MEDS: LANSOPRAZOLE 15 MG TAB.RAP.DR PO SCH (06:03)
[2018-05-26] MEDS: PIPERACILLIN SODIUM/TAZOBACTAM 3.375 GM in NORMAL SALINE 100 ML IV SCH ×3 (06:04→18:03)
[2018-05-26 07:03] LABS: ABSOLUTE BASOPHILS # (AUTO) 0.3 10^3/uL (0.0-0.2); ABSOLUTE EOSINOPHILS # (AUTO) 0.6 10^3/uL (0.0-0.6); ABSOLUTE LYMPHOCYTES (AUTO) 3.8 10^3/uL (0.5-4.7); ABSOLUTE MONOCYTES (AUTO) 1.7 10^3/uL (0.1-1.4); ABSOLUTE NEUT (AUTO) 11.3 10^3/uL (1.7-8.2); BASOPHILS % (AUTO) 1.6 % (0-2); EOSINOPHILS % (AUTO) 3.5 % (0-6); HEMATOCRIT 33.4 % (37.9-51.0); LYMPHOCYTES % (AUTO) 21.4 % (13-45); MEAN CORPUSCULAR HEMOGLOBIN 26.1 pg (27.0-33.4); MEAN CORPUSCULAR VOLUME 79 fl (80-97); MONOCYTES % (AUTO) 9.9 % (3-13); PLATELET COUNT 720 10^3/uL (150-450); RED BLOOD COUNT 4.22 10^6/uL (4.35-5.55); RED CELL DISTRIBUTION WIDTH 16.4 % (11.5-14.0); SEGMENTED NEUTROPHILS % (AUTO) 63.6 % (42-78); TOTAL CELLS COUNTED % (AUTO) 100 %; WHITE BLOOD COUNT 17.7 10^3/uL (4.0-10.5)
[2018-05-26] MEDS: VANCOMYCIN HCL 750 MG in DEXTROSE 5%-WATER 250 ML IV SCH ×3 (07:16→22:40)
[2018-05-26 07:32] LABS: ANION GAP 11 (5-19); BLOOD UREA NITROGEN 10 mg/dL (7-20); CALCIUM 9.3 mg/dL (8.4-10.2); CARBON DIOXIDE 24 mmol/L (22-30); CHLORIDE 105 mmol/L (98-107); GLUCOSE 103 mg/dL (75-110); POTASSIUM 4.4 mmol/L (3.6-5.0); SODIUM 139.7 mmol/L (137-145)
[2018-05-26 07:46] LABS: C-REACTIVE PROTEIN 181.1 mg/L (<10.0)
[2018-05-26] MEDS: INSULIN DETEMIR 100 UNIT/ML 3 ML PEN SUBCUT SCH (09:52)
[2018-05-26] MEDS: ENOXAPARIN SODIUM INJ 40 MG/0.4 ML DISP.SYRIN SUBCUT SCH (09:54)
[2018-05-26] MEDS: OXYCODONE HCL SR 10 MG TABLET PO SCH (09:57)
[2018-05-26] MEDS: LISINOPRIL 5 MG TABLET PO SCH (09:57)
[2018-05-26] MEDS: DULOXETINE HCL 30 MG CAPSULE.DR PO SCH ×2 (09:57→18:04)
[2018-05-26] MEDS: CELECOXIB 100 MG CAPSULE PO SCH ×2 (09:58→22:43)
--- NOTE | 2018-05-26 18:18 | PDOC PROGRESS REPORT ---
Subjective Progress Note for:: 05/26/18 Subjective:: The patient still complains of significant pain. 05/26/2018-the patient was seen by surgery. They will be taken to the OR this evening. He still complains of a lot of pain. He was taking 30 mg of immediate release oxycodone every 4 hours as well as OxyContin. Reason For Visit: INFECTED BUTTOCK ULCER,ABSCESS RIGHT AXILLA Physical Exam Vital Signs: Temp Pulse Resp BP Pulse Ox 98.7 F 84 16 107/72 99 05/26/18 16:12 05/26/18 16:12 05/26/18 16:12 05/26/18 16:12 05/26/18 16:12 Intake & Output 05/25/18 05/26/18 05/27/18 06:59 06:59 06:59 Intake Total 1011 2032 600 Output Total 950 1000 Balance 61 1032 600 Weight 63.5 kg 62.9 kg General appearance: PRESENT: cooperative, mild distress, thin, well-developed Neck exam: PRESENT: full ROM. ABSENT: carotid bruit, JVD, lymphadenopathy Respiratory exam: PRESENT: clear to auscultation daija, symmetrical, unlabored. ABSENT: rales, rhonchi, wheezes Cardiovascular exam: PRESENT: RRR, +S1, +S2, systolic murmur - 2/6 GI/Abdominal exam: PRESENT: normal bowel sounds, soft. ABSENT: firm, guarding, tenderness Extremities exam: PRESENT: other - Right arm still very tender. Still with swelling. Psychiatric exam: PRESENT: appropriate affect - His affect reflects his pain. Skin exam: PRESENT: erythema, other - Macerated areas and perineum, his left ischium and a dressing in the right axilla. Results Laboratory Results: 05/26/18 06:43 05/26/18 06:43 05/26/18 05/26/18 06:43 06:43 WBC 17.7 H RBC 4.22 L Hgb 11.0 L Hct 33.4 L MCV 79 L MCH 26.1 L MCHC 33.0 RDW 16.4 H Plt Count 720 H Seg Neutrophils % 63.6 Lymphocytes % 21.4 Monocytes % 9.9 Eosinophils % 3.5 Basophils % 1.6 Absolute Neutrophils 11.3 H Absolute Lymphocytes 3.8 Absolute Monocytes 1.7 H Absolute Eosinophils 0.6 Absolute Basophils 0.3 H Sodium 139.7 Potassium 4.4 Chloride 105 Carbon Dioxide 24 Anion Gap 11 BUN 10 Creatinine 0.62 Est GFR ( Amer) > 60 Est GFR (Non-Af Amer) > 60 Glucose 103 Calcium 9.3 C-Reactive Protein 181.1 H Impressions: Pelvis CT 05/24/18 07:46 IMPRESSION: No evidence of abscess or osteomyelitis. Assessment & Plan - Diagnosis (1) Decubitus ulcer of left ischial area Qualifiers: Pressure injury stage: stage 4 Qualified Code(s): L89.324 - Pressure ulcer of left buttock, stage 4 Is this a current diagnosis for this admission?: Yes Plan: Significant swelling and several openings from ulcerations. These are chronic issues. The increased draining and induration suggest an acute infection. The patient has been following at the wound care clinic and has had wounds in this area for a long time. I started the patient on vancomycin and Zosyn. I will obtain a surgical consult in the morning. I have asked for repositioning every 2 hours. The patient does have narcotic analgesia available. 05/25/2018-Dr. Valle, who has been seeing the patient at the wound clinic, is in fact away. I will consult the on-call surgeon for evaluation. 05/26/2018-the patient was seen by surgery. He is going to the OR. I believe it is mostly for the axilla. He is on antibiotic therapy. There is a great deal of inflammation in the soft tissue around the lesions with a markedly elevated CRP. Patient needs to be compliant with an aggressive wound care protocol for an extended period of time if there is any chance of these lesions healing. (2) Cellulitis and abscess of buttock Is this a current diagnosis for this admission?: Yes Plan: Antibiotics and analgesia as above. I did not write for a specific dressing at this time. Having the patient on an absorbent pad is adequate initially. 05/25/2018-as noted above surgery will see the patient. Continue vancomycin and Zosyn for the time being. 05/26/2018-continue vancomycin and Zosyn. Follow serum chemistries as well as C -reactive protein. (3) Axillary abscess Is this a current diagnosis for this admission?: Yes Plan: The patient had a right axillary abscess. He does cause some swelling and discomfort in his right arm. The abscess was incised and drained in the emergency department and packing was placed. We will have surgery monitor this wound as well. 05/25/2018-already on vancomycin and Zosyn. I will remove the Coban wrap from the arm. This should help decrease the swelling in the arm and hopefully decrease some of the discomfort. We will apply a dry sterile gauze secured with paper tape. Surgery will evaluate the patient tomorrow. 05/26/2018-see the consult from surgery. Further surgical intervention this evening. (4) Diabetes mellitus type 2 in nonobese Is this a current diagnosis for this admission?: Yes Plan: The patient will be on his Levemir with a Humalog sliding scale. It is possible that the metformin is contributing to his diarrhea and so I will hold his metformin temporarily. 05/25/2018-I have discontinued the metformin because of the diarrhea. We will continue the Levemir with Humalog sliding scale. The patient does state that he has been on metformin for some time and this has not been a problem. I will still hold it temporarily. 05/26/2018 sugars are actually fairly well controlled with his long-acting insulin and Humalog sliding scale. He is not on the metformin. Because he is going to the ER he will get a reduced dose of Levemir this evening. I also believe the proper diet is helping. (5) Chronic pain Qualifiers: Chronic pain type: chronic pain syndrome Qualified Code(s): G89.4 - Chronic pain syndrome Is this a current diagnosis for this admission?: Yes Plan: The patient reported that the regimen he was on was not effective. He is on gabapentin and duloxetine in addition to narcotic analgesia. In addition to the OxyContin 20 mg twice daily I have added medial release 10 mg every 4 hours as needed for pain. He still has 1 mg Dilaudid every 4 hours if needed. 05/26/2018-further information obtained from the patient reveals that he is actually on massive doses of oxycodone. In all he is probably exceeding 200 mg per 24 hours. I have increased his OxyContin to 40 mg every 12 hours and changed his immediate release oxycodone to 20 mg every 4 hours if needed. He also has IV Dilaudid if needed. (6) Nutrient intake below expected requirement Is this a current diagnosis for this admission?: Yes Plan: 05/26/2018-the patient was seen by the dietitian. Once I feel that his infection is better controlled she has suggested [place]. I did start the multivitamin, vitamin C and zinc supplements. I believe he is also receiving Glucerna. - Time Time Spent with patient: 15-24 minutes Medications reviewed and adjusted accordingly: Yes
[2018-05-26] MEDS ORDERED: LIDOCAINE 0.5% INJ-PF (5 MG/ML) 50 ML SDV ONE (20:56)
[2018-05-26] MEDS ORDERED: BUPIVACAINE HCL 0.5 % INJ/PF 30 ML SDV ONE (20:56)
[2018-05-26] MEDS ORDERED: PROPOFOL INJ 200 MG/20 ML VIAL IV ONE (21:00)
[2018-05-26] MEDS ORDERED: FENTANYL CITRATE INJ/PF 100 MCG/2 ML AMPUL ONE (21:00)
[2018-05-26] MEDS ORDERED: MIDAZOLAM 2 MG/2 ML INJ ONE (21:00)
--- NOTE | 2018-05-26 21:42 | Operative Report ---
Operative Report DATE OF SURGERY: 05/26/18 PREOPERATIVE DIAGNOSIS: Right axillary abscess, recurrent POSTOPERATIVE DIAGNOSIS: Same OPERATION: Excisional debridement of right axillary abscess at 2 sites including skin, subcutaneous tissue, fascia with placement of Jaun drain in loop fashion SURGEON: WALDEMAR FLORES ANESTHESIA: LMAC TISSUE REMOVED OR ALTERED: Skin, subcutaneous tissue fascia, granulation tissue from right axilla COMPLICATIONS: None ESTIMATED BLOOD LOSS: 10 cc INTRAOPERATIVE FINDINGS: See below PROCEDURE: Patient was taken to the operating room left on the gurney right axilla exposed , appropriate level of LMAC anesthesia induced. Right axilla prepped draped sterile fashion. Surgical plan surgical timeout were conducted. The recurrent abscess in the lateral aspect of the right axilla mid position was anesthetized with 1% plain lidocaine. 2 incisions were made 1 over the lateral and 1 over the medial aspect of the axilla and mid position. Ellipses of skin were removed from both sites. Underlying pus and loculations broken up. Skin, subcutaneous tissue and fascial fragment all excisionally debrided with scissors, and pickups, and tissue broken up with the index finger in a sweeping fashion. A [place] drain was placed between the 2 incisions and tied in a loop knot. Wound irrigated with a liter saline, and both open areas packed with iodoform packing. Patient tolerated procedure well, taken recovery in stable condition.
[2018-05-26] MEDS ORDERED: FENTANYL CITRATE INJ/PF 100 MCG/2 ML AMPUL IV PRN ×3 (21:56)
[2018-05-26] MEDS ORDERED: INSULIN DETEMIR 100 UNIT/ML 3 ML PEN SUBCUT ONE (22:00)
[2018-05-26] MEDS: OXYCODONE HCL SR 40 MG TABLET PO SCH (22:40)
[2018-05-26] MEDS: ZOLPIDEM TARTRATE 5 MG TABLET PO SCH (22:42)
[2018-05-27] MEDS: PIPERACILLIN SODIUM/TAZOBACTAM 3.375 GM in NORMAL SALINE 100 ML IV SCH ×5 (00:53→23:34)
[2018-05-27] MEDS: HYDROXYZINE PAMOATE 50 MG CAPSULE PO SCH ×3 (00:53→11:04)
[2018-05-27] MEDS: HYDROMORPHONE HCL INJ/PF 2 MG/ML AMPULE IV PRN ×5 (00:53→21:07)
[2018-05-27] MEDS: OXYCODONE HCL IR 5 MG TABLET PO PRN ×3 (02:36→17:33)
[2018-05-27] MEDS: ONDANSETRON 4 MG TAB.RAPDIS PO PRN (02:40)
[2018-05-27 05:12] LABS: ABSOLUTE BASOPHILS # (AUTO) 0.2 10^3/uL (0.0-0.2); ABSOLUTE EOSINOPHILS # (AUTO) 0.7 10^3/uL (0.0-0.6); ABSOLUTE LYMPHOCYTES (AUTO) 3.3 10^3/uL (0.5-4.7); ABSOLUTE MONOCYTES (AUTO) 1.2 10^3/uL (0.1-1.4); ABSOLUTE NEUT (AUTO) 8.7 10^3/uL (1.7-8.2); BASOPHILS % (AUTO) 1.6 % (0-2); HEMATOCRIT 35.6 % (37.9-51.0); HEMOGLOBIN 11.5 g/dL (13.5-17.0); LYMPHOCYTES % (AUTO) 23.5 % (13-45); MEAN CORPUSCULAR HEMOGLOBIN 25.8 pg (27.0-33.4); MEAN CORPUSCULAR HGB CONC 32.2 g/dL (32.0-36.0); MEAN CORPUSCULAR VOLUME 80 fl (80-97); MONOCYTES % (AUTO) 8.4 % (3-13); PLATELET COUNT 556 10^3/uL (150-450); RED BLOOD COUNT 4.44 10^6/uL (4.35-5.55); RED CELL DISTRIBUTION WIDTH 16.7 % (11.5-14.0); SEGMENTED NEUTROPHILS % (AUTO) 61.5 % (42-78); TOTAL CELLS COUNTED % (AUTO) 100 %; WHITE BLOOD COUNT 14.2 10^3/uL (4.0-10.5)
[2018-05-27 05:34] LABS: ANION GAP 11 (5-19); BLOOD UREA NITROGEN 9 mg/dL (7-20); CALCIUM 8.9 mg/dL (8.4-10.2); CARBON DIOXIDE 25 mmol/L (22-30); CHLORIDE 104 mmol/L (98-107); GLUCOSE 116 mg/dL (75-110); POTASSIUM 4.7 mmol/L (3.6-5.0); SODIUM 140.4 mmol/L (137-145)
[2018-05-27] MEDS: GABAPENTIN 300 MG CAPSULE PO SCH (05:37)
[2018-05-27] MEDS: LANSOPRAZOLE 15 MG TAB.RAP.DR PO SCH (05:37)
[2018-05-27] MEDS: VANCOMYCIN HCL 750 MG in DEXTROSE 5%-WATER 250 ML IV SCH ×3 (06:30→21:07)
--- NOTE | 2018-05-27 08:13 | PDOC PROGRESS REPORT ---
Subjective Progress Note for:: 05/27/18 Reason For Visit: INFECTED BUTTOCK ULCER,ABSCESS RIGHT AXILLA Physical Exam Vital Signs: Temp Pulse Resp BP Pulse Ox 98.1 F 87 20 112/72 98 05/27/18 03:45 05/27/18 03:45 05/27/18 03:45 05/27/18 03:45 05/27/18 03:45 Intake & Output 05/26/18 05/27/18 05/28/18 06:59 06:59 06:59 Intake Total 2032 1697 Output Total 1000 910 Balance 1032 787 Weight 62.9 kg 62.6 kg Results Laboratory Results: 05/27/18 04:10 05/27/18 04:10 05/27/18 05/27/18 04:10 04:10 WBC 14.2 H RBC 4.44 Hgb 11.5 L Hct 35.6 L MCV 80 MCH 25.8 L MCHC 32.2 RDW 16.7 H Plt Count 556 H Seg Neutrophils % 61.5 Lymphocytes % 23.5 Monocytes % 8.4 Eosinophils % 5.0 Basophils % 1.6 Absolute Neutrophils 8.7 H Absolute Lymphocytes 3.3 Absolute Monocytes 1.2 Absolute Eosinophils 0.7 H Absolute Basophils 0.2 Sodium 140.4 Potassium 4.7 Chloride 104 Carbon Dioxide 25 Anion Gap 11 BUN 9 Creatinine 0.70 Est GFR ( Amer) > 60 Est GFR (Non-Af Amer) > 60 Glucose 116 H Calcium 8.9 Magnesium 1.6 Impressions: Pelvis CT 05/24/18 07:46 IMPRESSION: No evidence of abscess or osteomyelitis. Assessment & Plan - Diagnosis (1) Axillary abscess Is this a current diagnosis for this admission?: Yes - Plan Summary Plan Summary: There is a 52-year-old male status post incision and drainage of a right axillary abscess. The packing was removed by me at the bedside today. There is a [place] drain in place. Leave the Jaun drain in place. Dry dressing over top of axilla twice daily. Okay to shower. No active purulence today on exam. The patient should continue to follow up with the wound care clinic for his chronic ischial ulcer. Follow-up with [facility] in 7-10 days for removal of right axillary Jaun drain. No further surgical intervention is required at present. I will see the patient again on an as-needed basis. Please renotify with any questions or concerns.
[2018-05-27] MEDS: MULTIVIT-STRESS FORMULA/ZINC TABLET PO SCH (09:49)
[2018-05-27] MEDS: ASCORBIC ACID 500 MG TABLET PO SCH ×2 (09:49→17:33)
[2018-05-27] MEDS: CELECOXIB 100 MG CAPSULE PO SCH (09:49)
[2018-05-27] MEDS: ENOXAPARIN SODIUM INJ 40 MG/0.4 ML DISP.SYRIN SUBCUT SCH (09:50)
[2018-05-27] MEDS: DULOXETINE HCL 30 MG CAPSULE.DR PO SCH ×2 (09:50→17:33)
[2018-05-27] MEDS: OXYCODONE HCL SR 40 MG TABLET PO SCH ×2 (09:51→21:08)
[2018-05-27] MEDS: LISINOPRIL 5 MG TABLET PO SCH (09:52)
[2018-05-27] MEDS ORDERED: INSULIN DETEMIR 100 UNIT/ML 3 ML PEN SUBCUT SCH (10:00)
--- NOTE | 2018-05-27 15:15 | PDOC PROGRESS REPORT ---
Subjective Progress Note for:: 05/27/18 Subjective:: The patient still complains of significant pain. 05/26/2018-the patient was seen by surgery. They will be taken to the OR this evening. He still complains of a lot of pain. He was taking 30 mg of immediate release oxycodone every 4 hours as well as OxyContin. 05/27 Still complaining of severe pain. Sleepy today. Will wake up and immediately complain of pain. Appetite is very poor. Reason For Visit: INFECTED BUTTOCK ULCER,ABSCESS RIGHT AXILLA Physical Exam Vital Signs: Temp Pulse Resp BP Pulse Ox 99.1 F 80 17 95/60 L 98 05/27/18 12:23 05/27/18 12:23 05/27/18 12:23 05/27/18 12:14 05/27/18 12:23 Intake & Output 05/26/18 05/27/18 05/28/18 06:59 06:59 06:59 Intake Total 2032 1697 350 Output Total 1000 910 Balance 1032 787 350 Weight 62.9 kg 62.6 kg General appearance: PRESENT: thin, well-developed, other - moderate distress Mouth exam: PRESENT: dry mucosa, tongue midline Neck exam: ABSENT: carotid bruit, JVD, lymphadenopathy Respiratory exam: PRESENT: clear to auscultation daija, symmetrical, unlabored. ABSENT: prolonged expiratory phas, rales, tachypnea, wheezes Cardiovascular exam: PRESENT: RRR, +S1, +S2, systolic murmur - 3/6 GI/Abdominal exam: PRESENT: normal bowel sounds, soft. ABSENT: distended, guarding, tenderness Neurological exam: PRESENT: altered - somnolent, oriented to person, oriented to place, oriented to situation Psychiatric exam: ABSENT: agitated, anxious Focused psych exam: ABSENT: restlessness Additional comments: 05/27-Did not remove dressing in axilla or roll the patient today. Results Laboratory Results: 05/27/18 04:10 05/27/18 04:10 05/27/18 05/27/18 04:10 04:10 WBC 14.2 H RBC 4.44 Hgb 11.5 L Hct 35.6 L MCV 80 MCH 25.8 L MCHC 32.2 RDW 16.7 H Plt Count 556 H Seg Neutrophils % 61.5 Lymphocytes % 23.5 Monocytes % 8.4 Eosinophils % 5.0 Basophils % 1.6 Absolute Neutrophils 8.7 H Absolute Lymphocytes 3.3 Absolute Monocytes 1.2 Absolute Eosinophils 0.7 H Absolute Basophils 0.2 Sodium 140.4 Potassium 4.7 Chloride 104 Carbon Dioxide 25 Anion Gap 11 BUN 9 Creatinine 0.70 Est GFR ( Amer) > 60 Est GFR (Non-Af Amer) > 60 Glucose 116 H Calcium 8.9 Magnesium 1.6 Impressions: Pelvis CT 05/24/18 07:46 IMPRESSION: No evidence of abscess or osteomyelitis. Assessment & Plan - Diagnosis (1) Decubitus ulcer of left ischial area Qualifiers: Pressure injury stage: stage 4 Qualified Code(s): L89.324 - Pressure ulcer of left buttock, stage 4 Is this a current diagnosis for this admission?: Yes Plan: Significant swelling and several openings from ulcerations. These are chronic issues. The increased draining and induration suggest an acute infection. The patient has been following at the wound care clinic and has had wounds in this area for a long time. I started the patient on vancomycin and Zosyn. I will obtain a surgical consult in the morning. I have asked for repositioning every 2 hours. The patient does have narcotic analgesia available. 05/25/2018-Dr. Valle, who has been seeing the patient at the wound clinic, is in fact away. I will consult the on-call surgeon for evaluation. 05/26/2018-the patient was seen by surgery. He is going to the OR. I believe it is mostly for the axilla. He is on antibiotic therapy. There is a great deal of inflammation in the soft tissue around the lesions with a markedly elevated CRP. Patient needs to be compliant with an aggressive wound care protocol for an extended period of time if there is any chance of these lesions healing. 05/27/18- Have ordered a specialty mattress, Started multivitamin with zinc. Continue Zosyn and Vancomycin (2) Cellulitis and abscess of buttock Is this a current diagnosis for this admission?: Yes Plan: Antibiotics and analgesia as above. I did not write for a specific dressing at this time. Having the patient on an absorbent pad is adequate initially. 05/25/2018-as noted above surgery will see the patient. Continue vancomycin and Zosyn for the time being. 05/26/2018-continue vancomycin and Zosyn. Follow serum chemistries as well as C -reactive protein. 05/27/18- Antibiotics as above. Will recheck CRP in 3-4 days. The patient just informed me that he has Hidradeninitis suppuritiva as well. (3) Axillary abscess Is this a current diagnosis for this admission?: Yes Plan: The patient had a right axillary abscess. He does cause some swelling and discomfort in his right arm. The abscess was incised and drained in the emergency department and packing was placed. We will have surgery monitor this wound as well. 05/25/2018-already on vancomycin and Zosyn. I will remove the Coban wrap from the arm. This should help decrease the swelling in the arm and hopefully decrease some of the discomfort. We will apply a dry sterile gauze secured with paper tape. Surgery will evaluate the patient tomorrow. 05/26/2018-see the consult from surgery. Further surgical intervention this evening. 05/27/18- Appreciate surgical intervention. Dressings ordered. Abx as above. Right arm still swollen. (4) Diabetes mellitus type 2 in nonobese Is this a current diagnosis for this admission?: Yes Plan: The patient will be on his Levemir with a Humalog sliding scale. It is possible that the metformin is contributing to his diarrhea and so I will hold his metformin temporarily. 05/25/2018-I have discontinued the metformin because of the diarrhea. We will continue the Levemir with Humalog sliding scale. The patient does state that he has been on metformin for some time and this has not been a problem. I will still hold it temporarily. 05/26/2018 sugars are actually fairly well controlled with his long-acting insulin and Humalog sliding scale. He is not on the metformin. Because he is going to the ER he will get a reduced dose of Levemir this evening. I also believe the proper diet is helping. 05/27/18- Glucoses surprisingly low. Likely due to poor appetite. Will lower levemir and adjust basrd on Accu-checks. (5) Chronic pain Qualifiers: Chronic pain type: chronic pain syndrome Qualified Code(s): G89.4 - Chronic pain syndrome Is this a current diagnosis for this admission?: Yes Plan: The patient reported that the regimen he was on was not effective. He is on gabapentin and duloxetine in addition to narcotic analgesia. In addition to the OxyContin 20 mg twice daily I have added medial release 10 mg every 4 hours as needed for pain. He still has 1 mg Dilaudid every 4 hours if needed. 05/26/2018-further information obtained from the patient reveals that he is actually on massive doses of oxycodone. In all he is probably exceeding 200 mg per 24 hours. I have increased his OxyContin to 40 mg every 12 hours and changed his immediate release oxycodone to 20 mg every 4 hours if needed. He also has IV Dilaudid if needed. 05/27/18- Large increase in oxycodaone yesterday/ Will increase gabapentin today. Also discontinued vistaril, ambien and lisinopril (low BP) in an effort to reduce polypharmacy. Consider reducing duloxetine if still somnolent in 3-4 days. (6) Nutrient intake below expected requirement Is this a current diagnosis for this admission?: Yes Plan: 05/26/2018-the patient was seen by the dietitian. Once I feel that his infection is better controlled she has suggested Mt. I did start the multivitamin, vitamin C and zinc supplements. I believe he is also receiving Glucerna. 05/27/18- Continue protein supplements. Multivitamin added as well. (7) Hidradenitis suppurativa Is this a current diagnosis for this admission?: Yes Plan: 05/27/18- as above - Time Time Spent with patient: 25-34 minutes - Inpatient Certification Based on my medical assessment, after consideration of the patient's comorbidities, presenting symptoms, or acuity I expect that the services needed warrant INPATIENT care.: Yes I certify that my determination is in accordance with my understanding of Medicare's requirements for reasonable and necessary INPATIENT services [42 CFR 412.3e].: Yes
[2018-05-27] MEDS: GABAPENTIN 400 MG CAPSULE PO SCH ×2 (15:24→21:08)
[2018-05-27] MEDS: CHOLESTYRAMINE/ASPARTAME 4 GM PACKET PO SCH ×2 (17:32→21:08)
[2018-05-27] MEDS: INSULIN LISPRO 100 UNIT/ML 3 ML VIAL SUBCUT PRN (17:37)
[2018-05-27] MEDS: INSULIN DETEMIR 100 UNIT/ML 3 ML PEN SUBCUT SCH (21:25)
[2018-05-28] MEDS: PIPERACILLIN SODIUM/TAZOBACTAM 3.375 GM in NORMAL SALINE 100 ML IV SCH ×5 (00:33→23:27)
[2018-05-28] MEDS: HYDROMORPHONE HCL INJ/PF 2 MG/ML AMPULE IV PRN ×5 (01:09→23:29)
[2018-05-28] MEDS: OXYCODONE HCL IR 5 MG TABLET PO PRN ×3 (03:09→17:50)
[2018-05-28] MEDS: LANSOPRAZOLE 15 MG TAB.RAP.DR PO SCH (05:26)
[2018-05-28] MEDS: VANCOMYCIN HCL 750 MG in DEXTROSE 5%-WATER 250 ML IV SCH ×2 (05:26→13:05)
[2018-05-28] MEDS: GABAPENTIN 400 MG CAPSULE PO SCH ×3 (05:26→21:32)
[2018-05-28] MEDS: CHOLESTYRAMINE/ASPARTAME 4 GM PACKET PO SCH ×4 (09:17→21:33)
[2018-05-28] MEDS: MULTIVIT-STRESS FORMULA/ZINC TABLET PO SCH (09:17)
[2018-05-28] MEDS: OXYCODONE HCL SR 40 MG TABLET PO SCH ×2 (09:17→21:32)
[2018-05-28] MEDS: DULOXETINE HCL 30 MG CAPSULE.DR PO SCH ×2 (09:17→17:49)
[2018-05-28] MEDS: INSULIN DETEMIR 100 UNIT/ML 3 ML PEN SUBCUT SCH ×2 (09:18→22:03)
[2018-05-28] MEDS: ENOXAPARIN SODIUM INJ 40 MG/0.4 ML DISP.SYRIN SUBCUT SCH (09:18)
[2018-05-28] MEDS: ASCORBIC ACID 500 MG TABLET PO SCH ×2 (09:18→17:49)
[2018-05-28] MEDS: GABAPENTIN 300 MG CAPSULE PO SCH (11:56)
--- NOTE | 2018-05-28 13:36 | PDOC PROGRESS REPORT ---
Subjective Progress Note for:: 05/28/18 Subjective:: The patient still complains of significant pain. 05/26/2018-the patient was seen by surgery. They will be taken to the OR this evening. He still complains of a lot of pain. He was taking 30 mg of immediate release oxycodone every 4 hours as well as OxyContin. 05/27 Still complaining of severe pain. Sleepy today. Will wake up and immediately complain of pain. Appetite is very poor. 05/28/2018-still complaining of significant pain. Surgery reports that the axillary ulcer is stable. The Jaun drain will stay in place. Reason For Visit: INFECTED BUTTOCK ULCER,ABSCESS RIGHT AXILLA Physical Exam Vital Signs: Temp Pulse Resp BP Pulse Ox 98.6 F 84 16 116/65 94 05/28/18 11:11 05/28/18 11:11 05/28/18 11:11 05/28/18 11:11 05/28/18 11:11 Intake & Output 05/27/18 05/28/18 05/29/18 06:59 06:59 06:59 Intake Total 1697 2660 100 Output Total 910 1700 800 Balance 787 960 -700 Weight 62.6 kg 62.6 kg General appearance: PRESENT: thin, other - Reports severe pain but this is been a consistent complaint. Mouth exam: PRESENT: dry mucosa Respiratory exam: PRESENT: clear to auscultation daija, symmetrical, unlabored. ABSENT: rales, rhonchi, wheezes Cardiovascular exam: PRESENT: RRR, +S1, +S2 GI/Abdominal exam: PRESENT: soft, other - Colostomy in place. ABSENT: tenderness Musculoskeletal exam: PRESENT: other - Decreased muscle mass Neurological exam: PRESENT: awake, oriented to person, oriented to place, oriented to situation Psychiatric exam: PRESENT: appropriate affect - Affect is consistent with his chronic complaints of pain Results Laboratory Results: 05/27/18 04:10 05/27/18 04:10 Impressions: Pelvis CT 05/24/18 07:46 IMPRESSION: No evidence of abscess or osteomyelitis. Assessment & Plan - Diagnosis (1) Cellulitis and abscess of buttock Is this a current diagnosis for this admission?: Yes Plan: Antibiotics and analgesia as above. I did not write for a specific dressing at this time. Having the patient on an absorbent pad is adequate initially. 05/25/2018-as noted above surgery will see the patient. Continue vancomycin and Zosyn for the time being. 05/26/2018-continue vancomycin and Zosyn. Follow serum chemistries as well as C -reactive protein. 05/27/18- Antibiotics as above. Will recheck CRP in 3-4 days. The patient just informed me that he has Hidradeninitis suppuritiva as well. 05/28/2018-continuing antibiotics. This area is in fact his hidradenitis. It is likely he has chronically inflamed tissue with sinus tracts. (2) Axillary abscess Is this a current diagnosis for this admission?: Yes Plan: The patient had a right axillary abscess. He does cause some swelling and discomfort in his right arm. The abscess was incised and drained in the emergency department and packing was placed. We will have surgery monitor this wound as well. 05/25/2018-already on vancomycin and Zosyn. I will remove the Coban wrap from the arm. This should help decrease the swelling in the arm and hopefully decrease some of the discomfort. We will apply a dry sterile gauze secured with paper tape. Surgery will evaluate the patient tomorrow. 05/26/2018-see the consult from surgery. Further surgical intervention this evening. 05/27/18- Appreciate surgical intervention. Dressings ordered. Abx as above. Right arm still swollen. 05/28/2018-patient was seen by surgery today. A [place] drain was placed. The drain will stay in place. Simple gauze dressings applied and the drain can be removed by surgery next week (3) Diabetes mellitus type 2 in nonobese Is this a current diagnosis for this admission?: Yes Plan: The patient will be on his Levemir with a Humalog sliding scale. It is possible that the metformin is contributing to his diarrhea and so I will hold his metformin temporarily. 05/25/2018-I have discontinued the metformin because of the diarrhea. We will continue the Levemir with Humalog sliding scale. The patient does state that he has been on metformin for some time and this has not been a problem. I will still hold it temporarily. 05/26/2018 sugars are actually fairly well controlled with his long-acting insulin and Humalog sliding scale. He is not on the metformin. Because he is going to the ER he will get a reduced dose of Levemir this evening. I also believe the proper diet is helping. 05/27/18- Glucoses surprisingly low. Likely due to poor appetite. Will lower levemir and adjust basrd on Accu-checks. 05/28/2018-good control of sugars at this time. No changes. (4) Chronic pain Qualifiers: Chronic pain type: chronic pain syndrome Qualified Code(s): G89.4 - Chronic pain syndrome Is this a current diagnosis for this admission?: Yes Plan: The patient reported that the regimen he was on was not effective. He is on gabapentin and duloxetine in addition to narcotic analgesia. In addition to the OxyContin 20 mg twice daily I have added medial release 10 mg every 4 hours as needed for pain. He still has 1 mg Dilaudid every 4 hours if needed. 05/26/2018-further information obtained from the patient reveals that he is actually on massive doses of oxycodone. In all he is probably exceeding 200 mg per 24 hours. I have increased his OxyContin to 40 mg every 12 hours and changed his immediate release oxycodone to 20 mg every 4 hours if needed. He also has IV Dilaudid if needed. 05/27/18- Large increase in oxycodaone yesterday/ Will increase gabapentin today. Also discontinued vistaril, ambien and lisinopril (low BP) in an effort to reduce polypharmacy. Consider reducing duloxetine if still somnolent in 3-4 days. 05/28/2018-patient still complains of pain. He wants increased Dilaudid doses. He ignores discussions about ineffectiveness of narcotics after a while. He is on levorphanol all as well. I will look at alternative measures. With his profound weight loss and systemic pain is overall status could be due to underlying bowel disease with associated weight loss. (5) Nutrient intake below expected requirement Is this a current diagnosis for this admission?: Yes Plan: 05/26/2018-the patient was seen by the dietitian. Once I feel that his infection is better controlled she has suggested Mt. I did start the multivitamin, vitamin C and zinc supplements. I believe he is also receiving Glucerna. 05/27/18- Continue protein supplements. Multivitamin added as well. 05/28/2018-unfortunately the patient does not drink his protein drinks with meals. His appetite is poor. (6) Hidradenitis suppurativa Is this a current diagnosis for this admission?: Yes Plan: 05/27/18- as above 05/28/2018-unfortunately there is little effective intervention for this condition. We will continue his current treatment plan. - Time Time Spent with patient: 15-24 minutes Medications reviewed and adjusted accordingly: Yes
[2018-05-28] MEDS: ONDANSETRON 4 MG TAB.RAPDIS PO PRN (23:37)
[2018-05-29] MEDS: VANCOMYCIN HCL 750 MG in DEXTROSE 5%-WATER 250 ML IV SCH ×4 (02:30→22:09)
[2018-05-29] MEDS: OXYCODONE HCL IR 5 MG TABLET PO PRN ×2 (02:34→09:13)
[2018-05-29] MEDS: HYDROMORPHONE HCL INJ/PF 2 MG/ML AMPULE IV PRN ×4 (04:04→20:00)
[2018-05-29] MEDS: PIPERACILLIN SODIUM/TAZOBACTAM 3.375 GM in NORMAL SALINE 100 ML IV SCH ×6 (05:19→20:58)
[2018-05-29] MEDS: GABAPENTIN 400 MG CAPSULE PO SCH ×3 (05:20→22:09)
[2018-05-29] MEDS: LANSOPRAZOLE 15 MG TAB.RAP.DR PO SCH (05:20)
[2018-05-29] MEDS: ONDANSETRON 4 MG TAB.RAPDIS PO PRN (08:15)
[2018-05-29] MEDS: INSULIN LISPRO 100 UNIT/ML 3 ML VIAL SUBCUT PRN (08:21)
[2018-05-29] MEDS: CHOLESTYRAMINE/ASPARTAME 4 GM PACKET PO SCH ×4 (08:25→22:11)
[2018-05-29] MEDS: OXYCODONE HCL SR 40 MG TABLET PO SCH ×2 (11:07→22:09)
[2018-05-29] MEDS: DULOXETINE HCL 30 MG CAPSULE.DR PO SCH ×2 (11:07→17:07)
[2018-05-29] MEDS: ASCORBIC ACID 500 MG TABLET PO SCH ×2 (11:07→17:08)
[2018-05-29] MEDS: MULTIVIT-STRESS FORMULA/ZINC TABLET PO SCH (11:07)
[2018-05-29] MEDS: INSULIN DETEMIR 100 UNIT/ML 3 ML PEN SUBCUT SCH ×2 (11:08→22:10)
[2018-05-29] MEDS: ENOXAPARIN SODIUM INJ 40 MG/0.4 ML DISP.SYRIN SUBCUT SCH (11:09)
--- NOTE | 2018-05-29 14:54 | PDOC PROGRESS REPORT ---
Subjective Progress Note for:: 05/29/18 Subjective:: The patient still complains of significant pain. 05/26/2018-the patient was seen by surgery. They will be taken to the OR this evening. He still complains of a lot of pain. He was taking 30 mg of immediate release oxycodone every 4 hours as well as OxyContin. 05/27 Still complaining of severe pain. Sleepy today. Will wake up and immediately complain of pain. Appetite is very poor. 05/28/2018-still complaining of significant pain. Surgery reports that the axillary ulcer is stable. The Jaun drain will stay in place. 05/29/2018-before entering the room the patient appeared comfortable. He had an earbud in and was watching a program on his phone. His left arm was flexed. He appeared quite comfortable. When engaging the patient at the start of the encounter his countenance changed and he reported significant pain. Reason For Visit: INFECTED BUTTOCK ULCER,ABSCESS RIGHT AXILLA Physical Exam Vital Signs: Temp Pulse Resp BP Pulse Ox 98.6 F 74 16 104/64 97 05/29/18 12:09 05/29/18 12:09 05/29/18 12:09 05/29/18 12:09 05/29/18 12:09 Intake & Output 05/28/18 05/29/18 05/30/18 06:59 06:59 06:59 Intake Total 2660 2140 350 Output Total 1700 1850 Balance 960 290 350 Weight 62.6 kg 63 kg General appearance: PRESENT: cooperative, mild distress, thin, well-developed Respiratory exam: PRESENT: clear to auscultation daija, symmetrical, unlabored. ABSENT: chest wall tenderness, rales, rhonchi, wheezes Cardiovascular exam: PRESENT: RRR, +S1, +S2 Extremities exam: PRESENT: other - Right arm still puffy.. ABSENT: pedal edema Neurological exam: PRESENT: alert, awake, oriented to person, oriented to place , oriented to situation, CN II-XII grossly intact Psychiatric exam: PRESENT: appropriate affect - Affect reflects his discomfort. Results Laboratory Results: 05/27/18 04:10 05/27/18 04:10 Impressions: Pelvis CT 05/24/18 07:46 IMPRESSION: No evidence of abscess or osteomyelitis. Assessment & Plan - Diagnosis (1) Cellulitis and abscess of buttock Is this a current diagnosis for this admission?: Yes Plan: Antibiotics and analgesia as above. I did not write for a specific dressing at this time. Having the patient on an absorbent pad is adequate initially. 05/25/2018-as noted above surgery will see the patient. Continue vancomycin and Zosyn for the time being. 05/26/2018-continue vancomycin and Zosyn. Follow serum chemistries as well as C -reactive protein. 05/27/18- Antibiotics as above. Will recheck CRP in 3-4 days. The patient just informed me that he has Hidradeninitis suppuritiva as well. 05/28/2018-continuing antibiotics. This area is in fact his hidradenitis. It is likely he has chronically inflamed tissue with sinus tracts. 05/29/2018-the patient remains on vancomycin and Zosyn. His white blood cell count is coming down slowly. I will recheck a CBC tomorrow. Continue antibiotics at this time. (2) Axillary abscess Is this a current diagnosis for this admission?: Yes Plan: The patient had a right axillary abscess. He does cause some swelling and discomfort in his right arm. The abscess was incised and drained in the emergency department and packing was placed. We will have surgery monitor this wound as well. 05/25/2018-already on vancomycin and Zosyn. I will remove the Coban wrap from the arm. This should help decrease the swelling in the arm and hopefully decrease some of the discomfort. We will apply a dry sterile gauze secured with paper tape. Surgery will evaluate the patient tomorrow. 05/26/2018-see the consult from surgery. Further surgical intervention this evening. 05/27/18- Appreciate surgical intervention. Dressings ordered. Abx as above. Right arm still swollen. 05/28/2018-patient was seen by surgery today. A [place] drain was placed. The drain will stay in place. Simple gauze dressings applied and the drain can be removed by surgery next week 05/29/2018-the patient did admit that there is less discomfort in the right axilla. His arm is still slightly puffy. There is no erythema. There is a drain in place. Surgery will remove this in approximately 7-10 days. (3) Diabetes mellitus type 2 in nonobese Is this a current diagnosis for this admission?: Yes Plan: The patient will be on his Levemir with a Humalog sliding scale. It is possible that the metformin is contributing to his diarrhea and so I will hold his metformin temporarily. 05/25/2018-I have discontinued the metformin because of the diarrhea. We will continue the Levemir with Humalog sliding scale. The patient does state that he has been on metformin for some time and this has not been a problem. I will still hold it temporarily. 05/26/2018 sugars are actually fairly well controlled with his long-acting insulin and Humalog sliding scale. He is not on the metformin. Because he is going to the ER he will get a reduced dose of Levemir this evening. I also believe the proper diet is helping. 05/27/18- Glucoses surprisingly low. Likely due to poor appetite. Will lower levemir and adjust basrd on Accu-checks. 05/28/2018-good control of sugars at this time. No changes. 05/29/2018-the patient is on a lower dose of Levemir that he takes at home. His appetite has been poor. He is also on sliding scale. His glucoses have been fairly well controlled. (4) Chronic pain Qualifiers: Chronic pain type: chronic pain syndrome Qualified Code(s): G89.4 - Chronic pain syndrome Is this a current diagnosis for this admission?: Yes Plan: The patient reported that the regimen he was on was not effective. He is on gabapentin and duloxetine in addition to narcotic analgesia. In addition to the OxyContin 20 mg twice daily I have added medial release 10 mg every 4 hours as needed for pain. He still has 1 mg Dilaudid every 4 hours if needed. 05/26/2018-further information obtained from the patient reveals that he is actually on massive doses of oxycodone. In all he is probably exceeding 200 mg per 24 hours. I have increased his OxyContin to 40 mg every 12 hours and changed his immediate release oxycodone to 20 mg every 4 hours if needed. He also has IV Dilaudid if needed. 05/27/18- Large increase in oxycodaone yesterday/ Will increase gabapentin today. Also discontinued vistaril, ambien and lisinopril (low BP) in an effort to reduce polypharmacy. Consider reducing duloxetine if still somnolent in 3-4 days. 05/28/2018-patient still complains of pain. He wants increased Dilaudid doses. He ignores discussions about ineffectiveness of narcotics after a while. He is on levorphanol all as well. I will look at alternative measures. With his profound weight loss and systemic pain is overall status could be due to underlying bowel disease with associated weight loss. 05/29/2018-ongoing pain. The patient was supposed to bring his levorphanol from home. He has no more pills left. He did state that he stopped taking it at home. In fact he has not received any doses here. (5) Nutrient intake below expected requirement Is this a current diagnosis for this admission?: Yes Plan: 05/26/2018-the patient was seen by the dietitian. Once I feel that his infection is better controlled she has suggested Mt. I did start the multivitamin, vitamin C and zinc supplements. I believe he is also receiving Glucerna. 05/27/18- Continue protein supplements. Multivitamin added as well. 05/28/2018-unfortunately the patient does not drink his protein drinks with meals. His appetite is poor. 05/29/2018-the patient states that his appetite is been poor. He had 3 Glucerna drinks on his bedside tray. Once again I encouraged him to drink these as they are concentrated nutrients that will help him. (6) Hidradenitis suppurativa Is this a current diagnosis for this admission?: Yes Plan: 05/27/18- as above 05/28/2018-unfortunately there is little effective intervention for this condition. We will continue his current treatment plan. 05/29/2018-ongoing pain. The patient is on antibiotics for the axilla. I would like to try sits baths but the patient has not been out of bed since admission. - Time Time Spent with patient: 15-24 minutes
[2018-05-29] MEDS: METHYLPREDNISOLONE INJ 40 MG/1 ML SDV IV SCH (17:05)
[2018-05-30] MEDS: HYDROMORPHONE HCL INJ/PF 2 MG/ML AMPULE IV PRN ×6 (00:16→21:22)
[2018-05-30] MEDS: PIPERACILLIN SODIUM/TAZOBACTAM 3.375 GM in NORMAL SALINE 100 ML IV SCH ×5 (04:00→20:05)
[2018-05-30] MEDS: METHYLPREDNISOLONE INJ 40 MG/1 ML SDV IV SCH (04:01)
[2018-05-30] MEDS: OXYCODONE HCL IR 5 MG TABLET PO PRN ×3 (05:52→22:25)
[2018-05-30] MEDS: GABAPENTIN 400 MG CAPSULE PO SCH ×3 (05:53→21:26)
[2018-05-30] MEDS: LANSOPRAZOLE 15 MG TAB.RAP.DR PO SCH (05:53)
[2018-05-30] MEDS: VANCOMYCIN HCL 750 MG in DEXTROSE 5%-WATER 250 ML IV SCH ×3 (05:55→21:32)
[2018-05-30 06:40] LABS: HEMATOCRIT 34.5 % (37.9-51.0); HEMOGLOBIN 11.6 g/dL (13.5-17.0); MEAN CORPUSCULAR HEMOGLOBIN 26.3 pg (27.0-33.4); MEAN CORPUSCULAR HGB CONC 33.6 g/dL (32.0-36.0); MEAN CORPUSCULAR VOLUME 78 fl (80-97); PLATELET COUNT 770 10^3/uL (150-450); RED BLOOD COUNT 4.41 10^6/uL (4.35-5.55); RED CELL DISTRIBUTION WIDTH 16.9 % (11.5-14.0); WHITE BLOOD COUNT 17.2 10^3/uL (4.0-10.5)
[2018-05-30 07:20] LABS: ALANINE AMINOTRANSFERASE 11 U/L (21-72); ALBUMIN 3.3 g/dL (3.5-5.0); ALKALINE PHOSPHATASE 318 U/L (38-126); ANION GAP 13 (5-19); ASPARTATE AMINO TRANSFERASE 25 U/L (17-59); BILIRUBIN,DIRECT 0.2 mg/dL (0.0-0.4); BILIRUBIN,TOTAL 0.2 mg/dL (0.2-1.3); BLOOD UREA NITROGEN 12 mg/dL (7-20); C-REACTIVE PROTEIN 73.6 mg/L (<10.0); CALCIUM 9.1 mg/dL (8.4-10.2); CARBON DIOXIDE 25 mmol/L (22-30); CHLORIDE 101 mmol/L (98-107); GLUCOSE 194 mg/dL (75-110); POTASSIUM 5.9 mmol/L (3.6-5.0); SODIUM 138.9 mmol/L (137-145); TOTAL PROTEIN 7.9 g/dL (6.3-8.2)
[2018-05-30] MEDS: INSULIN LISPRO 100 UNIT/ML 3 ML VIAL SUBCUT PRN ×3 (07:31→17:38)
[2018-05-30] MEDS: CHOLESTYRAMINE/ASPARTAME 4 GM PACKET PO SCH ×4 (07:31→21:28)
[2018-05-30] MEDS: ENOXAPARIN SODIUM INJ 40 MG/0.4 ML DISP.SYRIN SUBCUT SCH (09:11)
[2018-05-30] MEDS: OXYCODONE HCL SR 40 MG TABLET PO SCH ×2 (09:12→21:27)
[2018-05-30] MEDS: ASCORBIC ACID 500 MG TABLET PO SCH ×2 (09:12→17:38)
[2018-05-30] MEDS: DULOXETINE HCL 30 MG CAPSULE.DR PO SCH ×2 (09:12→17:37)
[2018-05-30] MEDS: INSULIN DETEMIR 100 UNIT/ML 3 ML PEN SUBCUT SCH ×2 (09:12→21:31)
[2018-05-30] MEDS: MULTIVIT-STRESS FORMULA/ZINC TABLET PO SCH (09:12)
--- NOTE | 2018-05-30 15:02 | PDOC PROGRESS REPORT ---
Subjective Progress Note for:: 05/30/18 Subjective:: 05/30/2018 cellulitis. Is continues to complain of chronic pain pain scale of 10 x 10. But when I went to see the patient in the room he is comfortable in the bed but complaining of pain scale of 10 x 10 Reason For Visit: INFECTED BUTTOCK ULCER,ABSCESS RIGHT AXILLA Physical Exam Vital Signs: Temp Pulse Resp BP Pulse Ox 97.5 F 78 18 108/68 99 05/30/18 11:46 05/30/18 11:46 05/30/18 11:46 05/30/18 11:46 05/30/18 11:46 Intake & Output 05/29/18 05/30/18 05/31/18 06:59 06:59 06:59 Intake Total 2140 2717 1061 Output Total 1850 2200 250 Balance 290 517 811 Weight 63 kg 62.5 kg General appearance: PRESENT: mild distress Head exam: PRESENT: atraumatic, normocephalic Respiratory exam: PRESENT: clear to auscultation daija. ABSENT: rales, rhonchi, wheezes Cardiovascular exam: PRESENT: RRR. ABSENT: diastolic murmur, rubs, systolic murmur GI/Abdominal exam: PRESENT: normal bowel sounds, soft. ABSENT: distended, guarding, mass, organolmegaly, rebound, tenderness Neurological exam: PRESENT: alert, awake, oriented to person, oriented to place , oriented to time, oriented to situation, CN II-XII grossly intact. ABSENT: motor sensory deficit Psychiatric exam: PRESENT: appropriate affect, normal mood. ABSENT: homicidal ideation, suicidal ideation Results Laboratory Results: 05/30/18 05:41 05/30/18 05:41 05/30/18 05/30/18 05:41 05:41 WBC 17.2 H RBC 4.41 Hgb 11.6 L Hct 34.5 L MCV 78 L MCH 26.3 L MCHC 33.6 RDW 16.9 H Plt Count 770 H Sodium 138.9 Potassium 5.9 H Chloride 101 Carbon Dioxide 25 Anion Gap 13 BUN 12 Creatinine 0.67 Est GFR ( Amer) > 60 Est GFR (Non-Af Amer) > 60 Glucose 194 H Calcium 9.1 Total Bilirubin 0.2 AST 25 ALT 11 L Alkaline Phosphatase 318 H C-Reactive Protein 73.6 H Total Protein 7.9 Albumin 3.3 L Impressions: Pelvis CT 05/24/18 07:46 IMPRESSION: No evidence of abscess or osteomyelitis. Assessment & Plan - Diagnosis (1) Cellulitis and abscess of buttock Is this a current diagnosis for this admission?: Yes Plan: 05/30/2018-patient has abscess in the right axilla and also on the buttock region and is getting IV antibiotic therapy and pain medications. Commended sitz baths. Patient is on IV antibiotics. (2) Axillary abscess Is this a current diagnosis for this admission?: Yes Plan: Axillary abscesses on the right side base complaining of pain scale of 10 x 10 the I&D was done in the emergency room pack was done his right arm is still puffy there is a drain in place surgeons are planning to remove the trunnion may be in 7 days (3) Diabetes mellitus type 2 in nonobese Is this a current diagnosis for this admission?: Yes Plan: 05/30/2018 patient has history of diabetes mellitus. Patient is on metformin at home which is on hold patient on sliding scale plan is to continue the current regimen (4) Chronic pain Qualifiers: Chronic pain type: chronic pain syndrome Qualified Code(s): G89.4 - Chronic pain syndrome Is this a current diagnosis for this admission?: Yes Plan: 07/30/2017--patient is complaining of pain scale 10 x 10 he is on he is on hydromorphone and oxycodone for pain management (5) Nutrient intake below expected requirement Is this a current diagnosis for this admission?: Yes Plan: 07/30/2017 patient is getting Glucerna 3 times a day encouraged him to continue taking Glucerna to improve his nutritional status (6) Hidradenitis suppurativa Is this a current diagnosis for this admission?: Yes Plan: 05/30/2018 patient has recurrent history of hidradenitis suppurativa with right axillary abscess he is on IV antibiotic therapy and pain medications - Time Time Spent with patient: 15-24 minutes
--- NOTE | 2018-05-30 15:25 | RADIOLOGY REPORT (SQ) ---
EXAM DESCRIPTION: PICC INSERTION; FLUORO/CV PLACEMENT; U/S GUIDE FOR VASCULAR ACCESS COMPLETED DATE/TIME: 05/30/2018 2:28 pm REASON FOR STUDY: iv antibiotic therapy; IV ABX COMPARISON: Two-view chest 02/25/2017 FLUOROSCOPY TIME: 3 minutes 50 seconds 2 digital radiographic and 1 ultrasound images saved to PACS. TECHNIQUE: Fluoroscopic and ultrasound guided PICC placement. LIMITATIONS: None. PROCEDURE: After written consent and assessment were obtained, the patient was brought into the fluo roscopy room and placed supine on the table. Ultrasound evaluation of potential access sites were per formed. After successfully identifying a patent left basilic vein, the left arm was prepped and drape d in a sterile fashion along with the ultrasound probe. The entry site was anesthetized with 1% lidoc babatunde. A 21 gauge 7 cm needle was advanced through the skin and into the basilic vein under live ultra sound guidance. An ultrasound image was saved to PACS confirming access site. A .018 guide wire was then inserted through the needle and into the venous system. The needle was then removed and an 11 b lade scalpel was used to make a 1cm skin incision. A 5 fr peel-away sheath was advanced over the wir e and into the venous system. A measurement was then made using the existing wire and live fluoroscop ic guidance. The wire was then removed and trimmed. The PICC was advanced through the peel-away sheat h and into the venous system. The peel-away sheath was removed and the catheter was adhered to the pa tients arm with a stat lock. The catheter was then aspirated and flushed and a sterile bandage was pl aced over the access site. A fluoroscopic spot image was saved to PACS confirming the catheter tip w ithin the superior vena cava. IMPRESSION: SUCCESSFUL PLACEMENT OF A 5 FR DUAL LUMEN 46 CM PICC IN THE LEFT BASILIC VEIN. COMMENT: Patient medication list reviewed: Yes- Quality ID# [id number]:Eligible professional attests to doc umenting in the medical record they obtained, updated, or reviewed the patient's current medications. . Quality ID 145: Final reports for procedures using fluoroscopy that document radiation exposure gwen adina, or exposure time and number of fluorographic images (if radiation exposure indices are not avail able) Quality ID #[id number]: The patient was prepped and draped using maximum sterile barrier technique including cap, mask, sterile gown, sterile gloves, a large sterile sheet, hand hygiene, and 2% Chlorhexidine fo r cutaneous antisepsis. When ultrasound is used, sterile ultrasound techniques are followed requiring sterile gel and sterile probes. TECHNICAL DOCUMENTATION: JOB ID: [id number] [employer]- All Rights Reserved rev-11/25 Reading location - IP/workstation name: [email or web address] [id number]
[2018-05-31] MEDS: HYDROMORPHONE HCL INJ/PF 2 MG/ML AMPULE IV PRN ×6 (02:45→23:05)
[2018-05-31] MEDS: PIPERACILLIN SODIUM/TAZOBACTAM 3.375 GM in NORMAL SALINE 100 ML IV SCH ×4 (02:47→22:16)
[2018-05-31] MEDS: ONDANSETRON 4 MG TAB.RAPDIS PO PRN ×3 (04:10→17:51)
[2018-05-31] MEDS: OXYCODONE HCL IR 5 MG TABLET PO PRN ×3 (04:15→17:48)
[2018-05-31] MEDS: GABAPENTIN 400 MG CAPSULE PO SCH ×3 (05:31→22:19)
[2018-05-31] MEDS: LANSOPRAZOLE 15 MG TAB.RAP.DR PO SCH (05:31)
[2018-05-31] MEDS: VANCOMYCIN HCL 750 MG in DEXTROSE 5%-WATER 250 ML IV SCH (05:32)
[2018-05-31] MEDS: CHOLESTYRAMINE/ASPARTAME 4 GM PACKET PO SCH ×4 (07:28→22:17)
[2018-05-31] MEDS: INSULIN LISPRO 100 UNIT/ML 3 ML VIAL SUBCUT PRN (07:28)
[2018-05-31] MEDS: DULOXETINE HCL 30 MG CAPSULE.DR PO SCH ×2 (09:06→17:48)
[2018-05-31] MEDS: OXYCODONE HCL SR 40 MG TABLET PO SCH ×2 (09:06→22:18)
[2018-05-31] MEDS: ENOXAPARIN SODIUM INJ 40 MG/0.4 ML DISP.SYRIN SUBCUT SCH (09:06)
[2018-05-31] MEDS: INSULIN DETEMIR 100 UNIT/ML 3 ML PEN SUBCUT SCH (09:06)
[2018-05-31] MEDS: ASCORBIC ACID 500 MG TABLET PO SCH ×2 (09:06→17:48)
[2018-05-31] MEDS: MULTIVIT-STRESS FORMULA/ZINC TABLET PO SCH (09:06)
--- NOTE | 2018-05-31 14:12 | PDOC PROGRESS REPORT ---
Subjective Progress Note for:: 05/31/18 Subjective:: 07/31/2017 52-year-old male admitted for right axillary wound bilateral sacral decubiti and is also has a chronic pain syndrome he continues to complaining of severe pain despite appropriate pain management. Reason For Visit: INFECTED BUTTOCK ULCER,ABSCESS RIGHT AXILLA Physical Exam Vital Signs: Temp Pulse Resp BP Pulse Ox 98.1 F 63 14 117/67 99 05/31/18 11:21 05/31/18 11:21 05/31/18 11:21 05/31/18 11:21 05/31/18 11:21 Intake & Output 05/30/18 05/31/18 06/01/18 06:59 06:59 06:59 Intake Total 2717 3216 1061 Output Total 2200 1850 600 Balance 517 1366 461 Weight 62.5 kg 66.9 kg General appearance: PRESENT: mild distress Head exam: PRESENT: atraumatic Eye exam: PRESENT: PERRLA Neck exam: ABSENT: carotid bruit, JVD, lymphadenopathy, thyromegaly Respiratory exam: PRESENT: clear to auscultation daija. ABSENT: rales, rhonchi, wheezes Cardiovascular exam: PRESENT: RRR. ABSENT: diastolic murmur, rubs, systolic murmur GI/Abdominal exam: PRESENT: normal bowel sounds, soft. ABSENT: distended, guarding, mass, organolmegaly, rebound, tenderness Neurological exam: PRESENT: alert, awake, oriented to person, oriented to place , oriented to time, oriented to situation, CN II-XII grossly intact. ABSENT: motor sensory deficit Results Laboratory Results: 05/30/18 05:41 05/30/18 05:41 Impressions: Pelvis CT 05/24/18 07:46 IMPRESSION: No evidence of abscess or osteomyelitis. Guidance Fluoroscopy 05/30/18 00:00 IMPRESSION: SUCCESSFUL PLACEMENT OF A 5 FR DUAL LUMEN 46 CM PICC IN THE LEFT BASILIC VEIN. Interventional Vascular Procedure 05/30/18 00:00 IMPRESSION: SUCCESSFUL PLACEMENT OF A 5 FR DUAL LUMEN 46 CM PICC IN THE LEFT BASILIC VEIN. PICC Line Insertion 05/30/18 00:00 IMPRESSION: SUCCESSFUL PLACEMENT OF A 5 FR DUAL LUMEN 46 CM PICC IN THE LEFT BASILIC VEIN. Assessment & Plan - Diagnosis (1) Cellulitis and abscess of buttock Is this a current diagnosis for this admission?: Yes Plan: 05/30/2018-patient has abscess in the right axilla and also on the buttock region and is getting IV antibiotic therapy and pain medications. Commended sitz baths. Patient is on IV antibiotics. 05/31/2018 patient has right axillary wound history of drain placement and it was removed later on, also decubitus wounds on the low on the sacrum the blood cultures are negative, patient is afebrile. WBC 17,000 yesterday, we waiting for the labs for today. Going to stop his vancomycin for today and plan to continue his Zosyn (2) Axillary abscess Is this a current diagnosis for this admission?: Yes Plan: Axillary abscesses on the right side base complaining of pain scale of 10 x 10 the I&D was done in the emergency room pack was done his right arm is still puffy there is a drain in place surgeons are planning to remove the drain may be in 7 days 05/31/2018 patient had came in with axillary wound status post drain placement and it was removed later on patient is still complaining of right arm swelling and pain in the axillary region. If the the lab work came back okay tomorrow morning and patient is concerned continues to be afebrile we have plans to discharge the patient tomorrow. (3) Diabetes mellitus type 2 in nonobese Is this a current diagnosis for this admission?: Yes Plan: 05/30/2018 patient has history of diabetes mellitus. Patient is on metformin at home which is on hold patient on sliding scale plan is to continue the current regimen 05/31/2018 patient is on Levemir 8 units subcu every 12 hours and is also on sliding scale, latest blood sugar is 81. (4) Chronic pain Qualifiers: Chronic pain type: chronic pain syndrome Qualified Code(s): G89.4 - Chronic pain syndrome Is this a current diagnosis for this admission?: Yes Plan: 07/30/2017--patient is complaining of pain scale 10 x 10 he is on he is on hydromorphone and oxycodone for pain management 05/31/2018-patient is continued to complaining of severe pain all over the body especially the back pain. Patient is on hydromorphone 2 mg every 4 hours and oxycodone 40 mg every 12 hours. He still complaining of severe pain. He is able to walk with the physical therapy this morning. (5) Nutrient intake below expected requirement Is this a current diagnosis for this admission?: Yes Plan: 07/30/2017 patient is getting Glucerna 3 times a day encouraged him to continue taking Glucerna to improve his nutritional status 05/31/2018 patient has considerable weight loss recently secondary to Crohn's disease, dietary consult was requested, patient is getting Glucerna 3 times a day. (6) Hidradenitis suppurativa Is this a current diagnosis for this admission?: Yes Plan: 05/30/2018 patient has recurrent history of hidradenitis suppurativa with right axillary abscess he is on IV antibiotic therapy and pain medications 07/31/2017-and has a chronic pain secondary to chronic history of hidradenitis suppurativa, he is on oxycodone 40 mg every 12 hours on hydromorphone 2 mg IV every 4 hours. - Time Time Spent with patient: 15-24 minutes Medications reviewed and adjusted accordingly: Yes
[2018-05-31 15:52] LABS: ABSOLUTE BASOPHILS # (AUTO) 0.3 10^3/uL (0.0-0.2); ABSOLUTE EOSINOPHILS # (AUTO) 0.9 10^3/uL (0.0-0.6); ABSOLUTE LYMPHOCYTES (AUTO) 5.4 10^3/uL (0.5-4.7); ABSOLUTE MONOCYTES (AUTO) 1.6 10^3/uL (0.1-1.4); ABSOLUTE NEUT (AUTO) 11.1 10^3/uL (1.7-8.2); BASOPHILS % (AUTO) 1.4 % (0-2); EOSINOPHILS % (AUTO) 4.7 % (0-6); HEMATOCRIT 32.8 % (37.9-51.0); HEMOGLOBIN 10.7 g/dL (13.5-17.0); MEAN CORPUSCULAR HGB CONC 32.8 g/dL (32.0-36.0); MEAN CORPUSCULAR VOLUME 79 fl (80-97); MONOCYTES % (AUTO) 8.5 % (3-13); PLATELET COUNT 759 10^3/uL (150-450); RED BLOOD COUNT 4.14 10^6/uL (4.35-5.55); RED CELL DISTRIBUTION WIDTH 16.5 % (11.5-14.0); SEGMENTED NEUTROPHILS % (AUTO) 57.4 % (42-78); TOTAL CELLS COUNTED % (AUTO) 100 %; WHITE BLOOD COUNT 19.4 10^3/uL (4.0-10.5)
[2018-05-31 16:10] LABS: ALANINE AMINOTRANSFERASE 26 U/L (21-72); ALKALINE PHOSPHATASE 279 U/L (38-126); ANION GAP 8 (5-19); ASPARTATE AMINO TRANSFERASE 38 U/L (17-59); BILIRUBIN,DIRECT 0.3 mg/dL (0.0-0.4); BILIRUBIN,TOTAL 0.3 mg/dL (0.2-1.3); BLOOD UREA NITROGEN 15 mg/dL (7-20); CARBON DIOXIDE 27 mmol/L (22-30); CHLORIDE 105 mmol/L (98-107); GLUCOSE 98 mg/dL (75-110); POTASSIUM 4.3 mmol/L (3.6-5.0); SODIUM 140.3 mmol/L (137-145); TOTAL PROTEIN 7.4 g/dL (6.3-8.2)
[2018-05-31] MEDS ORDERED: HYDROMORPHONE HCL INJ/PF 2 MG/ML AMPULE IV PRN (18:10)
[2018-05-31] MEDS: NORMAL SALINE 10 ML SDV (SCHEDULED) IV SCH (22:20)
[2018-06-01] MEDS: INSULIN DETEMIR 100 UNIT/ML 3 ML PEN SUBCUT SCH ×3 (01:03→21:21)
[2018-06-01] MEDS: OXYCODONE HCL IR 5 MG TABLET PO PRN ×3 (01:10→20:35)
[2018-06-01] MEDS: PIPERACILLIN SODIUM/TAZOBACTAM 3.375 GM in NORMAL SALINE 100 ML IV SCH ×4 (04:21→21:04)
[2018-06-01] MEDS: HYDROMORPHONE HCL INJ/PF 2 MG/ML AMPULE IV PRN ×4 (04:29→21:20)
[2018-06-01] MEDS: LANSOPRAZOLE 15 MG TAB.RAP.DR PO SCH (06:04)
[2018-06-01] MEDS: GABAPENTIN 400 MG CAPSULE PO SCH ×3 (06:04→21:05)
[2018-06-01 08:20] LABS: HEMOGLOBIN 10.9 g/dL (13.5-17.0); MEAN CORPUSCULAR HEMOGLOBIN 26.1 pg (27.0-33.4); MEAN CORPUSCULAR VOLUME 79 fl (80-97); PLATELET COUNT 829 10^3/uL (150-450); RED BLOOD COUNT 4.17 10^6/uL (4.35-5.55); RED CELL DISTRIBUTION WIDTH 16.6 % (11.5-14.0); WHITE BLOOD COUNT 21.3 10^3/uL (4.0-10.5)
[2018-06-01] MEDS: CHOLESTYRAMINE/ASPARTAME 4 GM PACKET PO SCH ×4 (08:25→21:30)
[2018-06-01 08:33] LABS: ALANINE AMINOTRANSFERASE 22 U/L (21-72); ALKALINE PHOSPHATASE 257 U/L (38-126); ANION GAP 10 (5-19); ASPARTATE AMINO TRANSFERASE 24 U/L (17-59); BILIRUBIN,DIRECT 0.3 mg/dL (0.0-0.4); BILIRUBIN,TOTAL 0.3 mg/dL (0.2-1.3); BLOOD UREA NITROGEN 16 mg/dL (7-20); CARBON DIOXIDE 26 mmol/L (22-30); CHLORIDE 107 mmol/L (98-107); GLUCOSE 124 mg/dL (75-110); POTASSIUM 4.5 mmol/L (3.6-5.0); SODIUM 142.7 mmol/L (137-145); TOTAL PROTEIN 7.3 g/dL (6.3-8.2)
[2018-06-01 08:41] LABS: ABSOLUTE MONOCYTES # (MANUAL) 0.4 10^3/uL (0.1-1.4); ABSOLUTE NEUTROPHILS# (MANUAL) 13.4 10^3/uL (1.7-8.2); BASOPHILS % (MANUAL) 0 % (0-2); EOSINOPHILS % (MANUAL) 7 % (0-6); LYMPHOCYTES % (MANUAL) 28 % (13-45); MONOCYTES % (MANUAL) 2 % (3-13); SEGMENTED NEUTROPHILS % (MAN) 63 % (42-78); TOTAL CELLS COUNTED 100
[2018-06-01 08:42] LABS: ANISOCYTOSIS 1+; HYPOCHROMASIA SLIGHT; PLATELET COMMENT INCREASED
[2018-06-01] MEDS: ASCORBIC ACID 500 MG TABLET PO SCH ×2 (11:17→17:12)
[2018-06-01] MEDS: OXYCODONE HCL SR 40 MG TABLET PO SCH ×2 (11:17→21:29)
[2018-06-01] MEDS: DULOXETINE HCL 30 MG CAPSULE.DR PO SCH ×2 (11:17→17:12)
[2018-06-01] MEDS: MULTIVIT-STRESS FORMULA/ZINC TABLET PO SCH (11:17)
[2018-06-01] MEDS: NORMAL SALINE 10 ML SDV (SCHEDULED) IV SCH ×2 (11:18→21:49)
[2018-06-01] MEDS: ENOXAPARIN SODIUM INJ 40 MG/0.4 ML DISP.SYRIN SUBCUT SCH (11:18)
--- NOTE | 2018-06-01 15:56 | PDOC PROGRESS REPORT ---
Subjective Progress Note for:: 06/01/18 Subjective:: Continues to endorse pain, feels that it is worse than previous. Has multiple areas that are bother including right axillary wound, sacral decub, and scrotal area. Denies fevers, chills, CP, SOB. Stool output in colostomy unchanged in terms of output. Reason For Visit: INFECTED BUTTOCK ULCER,ABSCESS RIGHT AXILLA Physical Exam Vital Signs: Temp Pulse Resp BP Pulse Ox 98.0 F 70 14 96/65 L 99 06/01/18 08:00 06/01/18 08:00 06/01/18 08:00 06/01/18 08:00 06/01/18 08:00 Intake & Output 05/31/18 06/01/18 06/02/18 06:59 06:59 06:59 Intake Total 3216 2515 218 Output Total 1850 1800 580 Balance 1366 715 -362 Weight 66.9 kg 65.8 kg General appearance: PRESENT: mild distress - due to pain, thin Mouth exam: PRESENT: dry mucosa Respiratory exam: PRESENT: unlabored Cardiovascular exam: PRESENT: +S1, +S2. ABSENT: tachycardia GI/Abdominal exam: PRESENT: soft, tenderness, other - colostomy in place, brown stool noted Neurological exam: PRESENT: alert, awake, CN II-XII grossly intact Psychiatric exam: PRESENT: anxious Skin exam: PRESENT: dry Results Laboratory Results: 06/01/18 07:30 06/01/18 07:30 05/31/18 05/31/18 06/01/18 15:30 15:30 07:30 WBC 19.4 H 21.3 H RBC 4.14 L 4.17 L Hgb 10.7 L 10.9 L Hct 32.8 L 33.0 L MCV 79 L 79 L MCH 26.0 L 26.1 L MCHC 32.8 33.0 RDW 16.5 H 16.6 H Plt Count 759 H 829 H Seg Neutrophils % 57.4 Not Reportable Lymphocytes % 28.0 Not Reportable Monocytes % 8.5 Not Reportable Eosinophils % 4.7 Not Reportable Basophils % 1.4 Not Reportable Absolute Neutrophils 11.1 H Not Reportable Absolute Lymphocytes 5.4 H Not Reportable Absolute Monocytes 1.6 H Not Reportable Absolute Eosinophils 0.9 H Not Reportable Absolute Basophils 0.3 H Not Reportable Sodium 140.3 Potassium 4.3 Chloride 105 Carbon Dioxide 27 Anion Gap 8 BUN 15 Creatinine 0.69 Est GFR ( Amer) > 60 Est GFR (Non-Af Amer) > 60 Glucose 98 Calcium 9.0 Magnesium Total Bilirubin 0.3 AST 38 ALT 26 Alkaline Phosphatase 279 H Total Protein 7.4 Albumin 3.0 L 06/01/18 07:30 WBC RBC Hgb Hct MCV MCH MCHC RDW Plt Count Seg Neutrophils % Lymphocytes % Monocytes % Eosinophils % Basophils % Absolute Neutrophils Absolute Lymphocytes Absolute Monocytes Absolute Eosinophils Absolute Basophils Sodium 142.7 Potassium 4.5 Chloride 107 Carbon Dioxide 26 Anion Gap 10 BUN 16 Creatinine 0.70 Est GFR ( Amer) > 60 Est GFR (Non-Af Amer) > 60 Glucose 124 H Calcium 9.0 Magnesium 1.7 Total Bilirubin 0.3 AST 24 ALT 22 Alkaline Phosphatase 257 H Total Protein 7.3 Albumin 3.0 L Impressions: Pelvis CT 05/24/18 07:46 IMPRESSION: No evidence of abscess or osteomyelitis. Guidance Fluoroscopy 05/30/18 00:00 IMPRESSION: SUCCESSFUL PLACEMENT OF A 5 FR DUAL LUMEN 46 CM PICC IN THE LEFT BASILIC VEIN. Interventional Vascular Procedure 05/30/18 00:00 IMPRESSION: SUCCESSFUL PLACEMENT OF A 5 FR DUAL LUMEN 46 CM PICC IN THE LEFT BASILIC VEIN. PICC Line Insertion 05/30/18 00:00 IMPRESSION: SUCCESSFUL PLACEMENT OF A 5 FR DUAL LUMEN 46 CM PICC IN THE LEFT BASILIC VEIN. Assessment & Plan - Diagnosis (1) Axillary abscess Is this a current diagnosis for this admission?: Yes Plan: Right sided axillary abscesses, s/p I&D in ED at time of admission. Drain in place. COntinues to endorse pain - Given increase in WBC and pain, will tinoco culture, including axillary wound area - Continue Zosyn (2) Cellulitis and abscess of buttock Is this a current diagnosis for this admission?: Yes Plan: Long standing history of infection in the buttock region - Has been ttreated with IV antibiotic therapy and pain medications - Continue sitz baths - Reculture today given increased WBC (3) Sacral wound Qualifiers: Encounter type: initial encounter Qualified Code(s): S31.000A - Unspecified open wound of lower back and pelvis without penetration into retroperitoneum, initial encounter Is this a current diagnosis for this admission?: Yes Plan: Per above - For groin/perineum irritation --> ordered Lotrim ointment (4) Crohn's disease Qualifiers: Digestive disease complication type: other complication Is this a current diagnosis for this admission?: Yes Plan: Known history, colostomy in place (5) Leukocytosis Is this a current diagnosis for this admission?: Yes Plan: Increased WBC on 06/01. No fevers chills. Has multiple portals of infection however is being covered appropriated with antibiotics - Will tinoco culture (blood culture - both line and peripheral, urine culture, superficial wound culture) - if WBC continues to increase, will consider changing abx and consultation with ID at [facility] - Time Time Spent with patient: 15-24 minutes
[2018-06-01] MEDS: PROMETHAZINE HCL 25 MG TABLET PO PRN (20:44)
[2018-06-01] MEDS: CLOTRIMAZOLE 1% TOPICAL SOLN 10 ML TP SCH (21:51)
[2018-06-02] MEDS: HYDROMORPHONE HCL INJ/PF 2 MG/ML AMPULE IV PRN ×5 (02:24→21:17)
[2018-06-02] MEDS: OXYCODONE HCL IR 5 MG TABLET PO PRN ×3 (03:23→19:06)
[2018-06-02] MEDS: PIPERACILLIN SODIUM/TAZOBACTAM 3.375 GM in NORMAL SALINE 100 ML IV SCH ×4 (03:24→21:17)
[2018-06-02] MEDS: GABAPENTIN 400 MG CAPSULE PO SCH ×3 (06:09→21:18)
[2018-06-02] MEDS: LANSOPRAZOLE 15 MG TAB.RAP.DR PO SCH (06:10)
[2018-06-02] MEDS: CLOTRIMAZOLE 1% TOPICAL SOLN 10 ML TP SCH ×3 (06:12→21:19)
[2018-06-02 07:56] LABS: ABSOLUTE BASOPHILS # (AUTO) 0.1 10^3/uL (0.0-0.2); ABSOLUTE LYMPHOCYTES (AUTO) 5.8 10^3/uL (0.5-4.7); ABSOLUTE MONOCYTES (AUTO) 1.4 10^3/uL (0.1-1.4); ABSOLUTE NEUT (AUTO) 11.2 10^3/uL (1.7-8.2); BASOPHILS % (AUTO) 0.6 % (0-2); EOSINOPHILS % (AUTO) 5.3 % (0-6); HEMATOCRIT 30.4 % (37.9-51.0); HEMOGLOBIN 9.7 g/dL (13.5-17.0); LYMPHOCYTES % (AUTO) 29.6 % (13-45); MEAN CORPUSCULAR HEMOGLOBIN 25.5 pg (27.0-33.4); MEAN CORPUSCULAR HGB CONC 32.1 g/dL (32.0-36.0); MEAN CORPUSCULAR VOLUME 80 fl (80-97); PLATELET COUNT 782 10^3/uL (150-450); RED BLOOD COUNT 3.82 10^6/uL (4.35-5.55); SEGMENTED NEUTROPHILS % (AUTO) 57.5 % (42-78); TOTAL CELLS COUNTED % (AUTO) 100 %; WHITE BLOOD COUNT 19.5 10^3/uL (4.0-10.5)
[2018-06-02] MEDS: CHOLESTYRAMINE/ASPARTAME 4 GM PACKET PO SCH ×4 (08:43→21:27)
[2018-06-02] MEDS: ENOXAPARIN SODIUM INJ 40 MG/0.4 ML DISP.SYRIN SUBCUT SCH (09:45)
[2018-06-02] MEDS: DULOXETINE HCL 30 MG CAPSULE.DR PO SCH ×2 (09:45→17:46)
[2018-06-02] MEDS: MULTIVIT-STRESS FORMULA/ZINC TABLET PO SCH (09:45)
[2018-06-02] MEDS: OXYCODONE HCL SR 40 MG TABLET PO SCH (09:45)
[2018-06-02] MEDS: ASCORBIC ACID 500 MG TABLET PO SCH ×2 (09:46→17:46)
[2018-06-02] MEDS: INSULIN DETEMIR 100 UNIT/ML 3 ML PEN SUBCUT SCH ×2 (09:53→21:18)
[2018-06-02] MEDS: NORMAL SALINE 10 ML SDV (SCHEDULED) IV SCH ×2 (09:54→21:19)
--- NOTE | 2018-06-02 14:24 | PDOC PROGRESS REPORT ---
Subjective Progress Note for:: 06/02/18 Subjective:: Continues to endorse pain in axilla, abdomien, scrotum. Requesting pain medication be increased. Denies fevers, chills, CP, SOB. Bed not providing support and wants a new one. Appetite has been robust and wants to more food to "increase my energy". Reason For Visit: INFECTED BUTTOCK ULCER,ABSCESS RIGHT AXILLA Physical Exam Vital Signs: Temp Pulse Resp BP Pulse Ox 98.3 F 66 10 L 109/62 100 06/02/18 08:00 06/02/18 08:00 06/02/18 08:00 06/02/18 08:00 06/02/18 08:00 Intake & Output 06/01/18 06/02/18 06/03/18 06:59 06:59 06:59 Intake Total 2515 1380 100 Output Total 1800 1890 Balance 715 -510 100 Weight 65.8 kg 66.2 kg General appearance: PRESENT: no acute distress, thin, other - Chronically ill appearing Head exam: PRESENT: atraumatic Mouth exam: PRESENT: dry mucosa Cardiovascular exam: PRESENT: +S1, +S2. ABSENT: tachycardia GI/Abdominal exam: PRESENT: normal bowel sounds, soft, tenderness, other - Colostomy with brown stool Gentrourinary exam: PRESENT: scrotal swelling - Masserated appearing, tender to palpation Extremities exam: ABSENT: pedal edema Neurological exam: PRESENT: alert, awake, CN II-XII grossly intact Psychiatric exam: PRESENT: anxious Skin exam: PRESENT: intact Results Laboratory Results: 06/02/18 06:30 06/01/18 07:30 06/02/18 06:30 WBC 19.5 H RBC 3.82 L Hgb 9.7 L Hct 30.4 L MCV 80 MCH 25.5 L MCHC 32.1 RDW 17.0 H Plt Count 782 H Seg Neutrophils % 57.5 Lymphocytes % 29.6 Monocytes % 7.0 Eosinophils % 5.3 Basophils % 0.6 Absolute Neutrophils 11.2 H Absolute Lymphocytes 5.8 H Absolute Monocytes 1.4 Absolute Eosinophils 1.0 H Absolute Basophils 0.1 Impressions: Pelvis CT 05/24/18 07:46 IMPRESSION: No evidence of abscess or osteomyelitis. Guidance Fluoroscopy 05/30/18 00:00 IMPRESSION: SUCCESSFUL PLACEMENT OF A 5 FR DUAL LUMEN 46 CM PICC IN THE LEFT BASILIC VEIN. Interventional Vascular Procedure 05/30/18 00:00 IMPRESSION: SUCCESSFUL PLACEMENT OF A 5 FR DUAL LUMEN 46 CM PICC IN THE LEFT BASILIC VEIN. PICC Line Insertion 05/30/18 00:00 IMPRESSION: SUCCESSFUL PLACEMENT OF A 5 FR DUAL LUMEN 46 CM PICC IN THE LEFT BASILIC VEIN. Assessment & Plan - Diagnosis (1) Axillary abscess Is this a current diagnosis for this admission?: Yes Plan: Right sided axillary abscesses, s/p I&D in ED at time of admission. Drain in place. Continues to endorse pain. WBC slightly lower; afebrile and HDS - Repeat wound culture from 06/01 positive for GNR * 2, await speciation and sensitivity - Blood culture pending - Continue Zosyn for now (2) Cellulitis and abscess of buttock Is this a current diagnosis for this admission?: Yes Plan: Long standing history of infection in the buttock region - Follow up on cultures; continue IV zosyn - Continue sitz baths - Temporarily increased pain medications (Diluadid from 2mg to 3mg IV q4 hour PRN on 06/02). Concern there is a pain seeking component, Low threshold to decrease once pain is better. (3) Sacral wound Qualifiers: Encounter type: initial encounter Qualified Code(s): S31.000A - Unspecified open wound of lower back and pelvis without penetration into retroperitoneum, initial encounter Is this a current diagnosis for this admission?: Yes Plan: Per above - For groin/perineum irritation --> apply Lotrim ointment (4) Crohn's disease Qualifiers: Digestive disease complication type: other complication Is this a current diagnosis for this admission?: Yes Plan: Known history, colostomy in place (5) Leukocytosis Is this a current diagnosis for this admission?: Yes Plan: Increased WBC on 06/01 however lower on 06/02. No fevers chills. Has multiple portals of infection however is being covered appropriated with antibiotics - Cultures pending - if no improved over weekend, should consult with ID at [facility] - Time Time Spent with patient: 15-24 minutes
[2018-06-02] MEDS: PROMETHAZINE HCL 25 MG TABLET PO PRN (14:42)
[2018-06-02] MEDS: ONDANSETRON 4 MG TAB.RAPDIS PO PRN (21:28)
[2018-06-02] MEDS ORDERED: OXYCODONE HCL IR 5 MG TABLET PO PRN (22:35)
[2018-06-02] MEDS ORDERED: OXYCODONE HCL SR 40 MG TABLET PO ONE (22:45)
[2018-06-03] MEDS: HYDROMORPHONE HCL INJ/PF 2 MG/ML AMPULE IV PRN ×5 (02:27→20:03)
[2018-06-03] MEDS: PIPERACILLIN SODIUM/TAZOBACTAM 3.375 GM in NORMAL SALINE 100 ML IV SCH ×4 (02:43→21:30)
[2018-06-03] MEDS: OXYCODONE HCL IR 5 MG TABLET PO PRN ×3 (03:56→23:14)
[2018-06-03] MEDS: LANSOPRAZOLE 15 MG TAB.RAP.DR PO SCH (05:03)
[2018-06-03] MEDS: GABAPENTIN 400 MG CAPSULE PO SCH ×3 (05:03→21:31)
[2018-06-03] MEDS: CLOTRIMAZOLE 1% TOPICAL SOLN 10 ML TP SCH ×3 (05:05→21:32)
[2018-06-03 06:56] LABS: HEMATOCRIT 31.3 % (37.9-51.0); HEMOGLOBIN 10.2 g/dL (13.5-17.0); MEAN CORPUSCULAR HEMOGLOBIN 25.9 pg (27.0-33.4); MEAN CORPUSCULAR HGB CONC 32.8 g/dL (32.0-36.0); MEAN CORPUSCULAR VOLUME 79 fl (80-97); PLATELET COUNT 851 10^3/uL (150-450); RED BLOOD COUNT 3.95 10^6/uL (4.35-5.55); RED CELL DISTRIBUTION WIDTH 16.5 % (11.5-14.0); WHITE BLOOD COUNT 22.5 10^3/uL (4.0-10.5)
[2018-06-03 07:21] LABS: ABSOLUTE LYMPHOCYTES# (MANUAL) 5.2 10^3/uL (0.5-4.7); ABSOLUTE MONOCYTES # (MANUAL) 1.1 10^3/uL (0.1-1.4); ABSOLUTE NEUTROPHILS# (MANUAL) 15.3 10^3/uL (1.7-8.2); BASOPHILS % (MANUAL) 1 % (0-2); EOSINOPHILS % (MANUAL) 3 % (0-6); LYMPHOCYTES % (MANUAL) 23 % (13-45); MONOCYTES % (MANUAL) 5 % (3-13); SEGMENTED NEUTROPHILS % (MAN) 68 % (42-78); TOTAL CELLS COUNTED 100
[2018-06-03 07:24] LABS: HYPOCHROMASIA SLIGHT
[2018-06-03 07:25] LABS: ANISOCYTOSIS 1+; PLATELET COMMENT INCREASED; TARGET CELLS SLIGHT; TOXIC GRANULATION SLIGHT
[2018-06-03] MEDS: CHOLESTYRAMINE/ASPARTAME 4 GM PACKET PO SCH ×4 (08:43→21:42)
[2018-06-03] MEDS: MULTIVIT-STRESS FORMULA/ZINC TABLET PO SCH (09:19)
[2018-06-03] MEDS: DULOXETINE HCL 30 MG CAPSULE.DR PO SCH ×2 (09:19→17:24)
[2018-06-03] MEDS: OXYCODONE HCL SR 40 MG TABLET PO SCH ×2 (09:21→21:31)
[2018-06-03] MEDS: ASCORBIC ACID 500 MG TABLET PO SCH ×2 (09:21→17:24)
[2018-06-03] MEDS: ENOXAPARIN SODIUM INJ 40 MG/0.4 ML DISP.SYRIN SUBCUT SCH (09:22)
[2018-06-03] MEDS: NORMAL SALINE 10 ML SDV (SCHEDULED) IV SCH ×2 (09:22→21:31)
[2018-06-03] MEDS: INSULIN DETEMIR 100 UNIT/ML 3 ML PEN SUBCUT SCH ×2 (09:23→21:42)
--- NOTE | 2018-06-03 19:08 | PDOC PROGRESS REPORT ---
Subjective Progress Note for:: 06/03/18 Subjective:: No adverse events overnight. No new complaints. Vital signs been stable. When I came into the room he was fast asleep with his eyes closed and his mouth open and he looked very comfortable. When he woke up he started to grimace and tell me that he was in pain. I declined to give him more pain medicine because he looked very comfortable when I first came in. Reason For Visit: INFECTED BUTTOCK ULCER,ABSCESS RIGHT AXILLA Physical Exam Vital Signs: Temp Pulse Resp BP Pulse Ox 98.6 F 82 12 121/77 100 06/03/18 16:00 06/03/18 16:00 06/03/18 16:00 06/03/18 16:00 06/03/18 16:00 Intake & Output 06/02/18 06/03/18 06/04/18 06:59 06:59 06:59 Intake Total 1380 5548 920 Output Total 1890 2460 1100 Balance -510 3088 -180 Weight 66.2 kg 66.2 kg General appearance: PRESENT: no acute distress, thin Cardiovascular exam: PRESENT: +S1, +S2. RRR GI/Abdominal exam: PRESENT: normal bowel sounds, soft, tenderness, other - Colostomy with brown stool Extremities exam: ABSENT: pedal edema. Present: The right axilla has a clean gauze bandage overlying the area of incision and drainage without any shadowing on the bandage. Neurological exam: PRESENT: Drowsy but arousable, oriented x3 Results Laboratory Results: 06/03/18 06:05 06/01/18 07:30 06/03/18 06:05 WBC 22.5 H RBC 3.95 L Hgb 10.2 L Hct 31.3 L MCV 79 L MCH 25.9 L MCHC 32.8 RDW 16.5 H Plt Count 851 H Seg Neutrophils % Not Reportable Lymphocytes % Not Reportable Monocytes % Not Reportable Eosinophils % Not Reportable Basophils % Not Reportable Absolute Neutrophils Not Reportable Absolute Lymphocytes Not Reportable Absolute Monocytes Not Reportable Absolute Eosinophils Not Reportable Absolute Basophils Not Reportable 06/01/18 15:30 Clean Catch Midstream Urine Culture - Final NO GROWTH 2 DAYS Impressions: Pelvis CT 05/24/18 07:46 IMPRESSION: No evidence of abscess or osteomyelitis. Guidance Fluoroscopy 05/30/18 00:00 IMPRESSION: SUCCESSFUL PLACEMENT OF A 5 FR DUAL LUMEN 46 CM PICC IN THE LEFT BASILIC VEIN. Interventional Vascular Procedure 05/30/18 00:00 IMPRESSION: SUCCESSFUL PLACEMENT OF A 5 FR DUAL LUMEN 46 CM PICC IN THE LEFT BASILIC VEIN. PICC Line Insertion 05/30/18 00:00 IMPRESSION: SUCCESSFUL PLACEMENT OF A 5 FR DUAL LUMEN 46 CM PICC IN THE LEFT BASILIC VEIN. Assessment & Plan - Diagnosis (1) Axillary abscess Is this a current diagnosis for this admission?: Yes Plan: Continue Zosyn. Cultures pending. We will follow-up surgical recommendations. His white blood cell count went up but clinically he looks good, so I am not going to change his antibiotics at this time. - Time Time Spent with patient: 25-34 minutes
[2018-06-04] MEDS: HYDROMORPHONE HCL INJ/PF 2 MG/ML AMPULE IV PRN ×3 (00:33→08:33)
[2018-06-04] MEDS: PIPERACILLIN SODIUM/TAZOBACTAM 3.375 GM in NORMAL SALINE 100 ML IV SCH ×2 (03:43→09:57)
[2018-06-04 04:24] LABS: HEMATOCRIT 31.2 % (37.9-51.0); HEMOGLOBIN 10.2 g/dL (13.5-17.0); MEAN CORPUSCULAR HEMOGLOBIN 25.7 pg (27.0-33.4); MEAN CORPUSCULAR HGB CONC 32.5 g/dL (32.0-36.0); MEAN CORPUSCULAR VOLUME 79 fl (80-97); PLATELET COUNT 848 10^3/uL (150-450); RED BLOOD COUNT 3.95 10^6/uL (4.35-5.55); RED CELL DISTRIBUTION WIDTH 17.1 % (11.5-14.0)
[2018-06-04] MEDS: LANSOPRAZOLE 15 MG TAB.RAP.DR PO SCH (05:03)
[2018-06-04] MEDS: CLOTRIMAZOLE 1% TOPICAL SOLN 10 ML TP SCH ×3 (05:03→21:21)
[2018-06-04] MEDS: GABAPENTIN 400 MG CAPSULE PO SCH ×3 (05:03→21:20)
[2018-06-04 05:37] LABS: ABSOLUTE LYMPHOCYTES# (MANUAL) 3.6 10^3/uL (0.5-4.7); ABSOLUTE MONOCYTES # (MANUAL) 1.9 10^3/uL (0.1-1.4); ABSOLUTE NEUTROPHILS# (MANUAL) 14.5 10^3/uL (1.7-8.2); ANISOCYTOSIS 2+; BASOPHILS % (MANUAL) 2 % (0-2); EOSINOPHILS % (MANUAL) 3 % (0-6); LYMPHOCYTES % (MANUAL) 17 % (13-45); MONOCYTES % (MANUAL) 9 % (3-13); SEGMENTED NEUTROPHILS % (MAN) 69 % (42-78); TOTAL CELLS COUNTED 100
[2018-06-04 05:38] LABS: PLATELET COMMENT INCREASED; PLATELET LARGE PRESENT; TARGET CELLS 2+
[2018-06-04] MEDS: OXYCODONE HCL IR 5 MG TABLET PO PRN ×3 (06:24→20:19)
[2018-06-04] MEDS: CHOLESTYRAMINE/ASPARTAME 4 GM PACKET PO SCH ×4 (07:43→21:23)
[2018-06-04] MEDS: ENOXAPARIN SODIUM INJ 40 MG/0.4 ML DISP.SYRIN SUBCUT SCH (09:57)
[2018-06-04] MEDS: MULTIVIT-STRESS FORMULA/ZINC TABLET PO SCH (09:58)
[2018-06-04] MEDS: DULOXETINE HCL 30 MG CAPSULE.DR PO SCH ×2 (09:58→18:28)
[2018-06-04] MEDS: ASCORBIC ACID 500 MG TABLET PO SCH ×2 (09:58→18:28)
[2018-06-04] MEDS: NORMAL SALINE 10 ML SDV (SCHEDULED) IV SCH ×2 (09:58→21:22)
[2018-06-04] MEDS: OXYCODONE HCL SR 40 MG TABLET PO SCH ×2 (09:58→21:20)
[2018-06-04] MEDS: INSULIN DETEMIR 100 UNIT/ML 3 ML PEN SUBCUT SCH ×2 (09:59→21:21)
[2018-06-04] MEDS: KETOROLAC TROMETHAMINE INJ/PF 30 MG/1 ML SDV IV PRN ×2 (12:19→18:28)
--- NOTE | 2018-06-04 15:33 | PDOC PROGRESS REPORT ---
Subjective Progress Note for:: 06/04/18 Subjective:: No adverse events overnight. No new complaints. Vital signs been stable. When I came into the room he was fast asleep with his eyes closed and his mouth open and he looked very comfortable, just like he did yesterday. When he woke up he started to grimace and tell me that he was in pain, just like he did yesterday. He was saying that the Dilaudid is not lasting him long enough. We discussed it for a minute and decided just to discontinue the Dilaudid altogether because it does not seem to be working well enough to control his pain. He wanted to have his oxycodone increased to 60 mg as needed and I told him that since the Dilaudid was not seeming to control his pain well enough, I doubted that increasing the oxycodone would as well because they work the same way. I told him I would start him on some Toradol as this works to control pain through different mechanisms than the narcotics. Reason For Visit: INFECTED BUTTOCK ULCER,ABSCESS RIGHT AXILLA Physical Exam Vital Signs: Temp Pulse Resp BP Pulse Ox 98.4 F 82 16 115/80 100 06/04/18 12:00 06/04/18 12:00 06/04/18 12:00 06/04/18 12:00 06/04/18 12:00 Intake & Output 06/03/18 06/04/18 06/05/18 06:59 06:59 06:59 Intake Total 5548 1870 1016 Output Total 2460 2600 600 Balance 3088 -730 416 Weight 66.2 kg 66.4 kg General appearance: PRESENT: no acute distress, thin Cardiovascular exam: PRESENT: +S1, +S2. RRR GI/Abdominal exam: PRESENT: normal bowel sounds, soft, tenderness, other - Colostomy with brown stool Extremities exam: ABSENT: pedal edema. Present: The right axilla has a clean gauze bandage overlying the area of incision and drainage without any shadowing on the bandage. Neurological exam: PRESENT: Drowsy but arousable, oriented x3 Results Laboratory Results: 06/04/18 03:50 06/01/18 07:30 06/04/18 03:50 WBC 21.0 H RBC 3.95 L Hgb 10.2 L Hct 31.2 L MCV 79 L MCH 25.7 L MCHC 32.5 RDW 17.1 H Plt Count 848 H Seg Neutrophils % Not Reportable Lymphocytes % Not Reportable Monocytes % Not Reportable Eosinophils % Not Reportable Basophils % Not Reportable Absolute Neutrophils Not Reportable Absolute Lymphocytes Not Reportable Absolute Monocytes Not Reportable Absolute Eosinophils Not Reportable Absolute Basophils Not Reportable 06/01/18 17:00 Groin - Right Gram Stain - Final 06/01/18 15:30 Clean Catch Midstream Urine Culture - Final NO GROWTH 2 DAYS Impressions: Pelvis CT 05/24/18 07:46 IMPRESSION: No evidence of abscess or osteomyelitis. Guidance Fluoroscopy 05/30/18 00:00 IMPRESSION: SUCCESSFUL PLACEMENT OF A 5 FR DUAL LUMEN 46 CM PICC IN THE LEFT BASILIC VEIN. Interventional Vascular Procedure 05/30/18 00:00 IMPRESSION: SUCCESSFUL PLACEMENT OF A 5 FR DUAL LUMEN 46 CM PICC IN THE LEFT BASILIC VEIN. PICC Line Insertion 05/30/18 00:00 IMPRESSION: SUCCESSFUL PLACEMENT OF A 5 FR DUAL LUMEN 46 CM PICC IN THE LEFT BASILIC VEIN. Assessment & Plan - Diagnosis (1) Axillary abscess Is this a current diagnosis for this admission?: Yes Plan: Continue Zosyn. Cultures pending. We will follow-up surgical recommendations. His white blood cell count has come down a little bit from yesterday and he remains afebrile. - Time Time Spent with patient: 25-34 minutes
[2018-06-05] MEDS: KETOROLAC TROMETHAMINE INJ/PF 30 MG/1 ML SDV IV PRN ×4 (00:36→18:58)
[2018-06-05] MEDS: NORMAL SALINE 10 ML SDV (AFTER EACH USE) IV PRN ×2 (00:38→06:28)
[2018-06-05] MEDS: OXYCODONE HCL IR 5 MG TABLET PO PRN ×3 (02:40→15:18)
[2018-06-05] MEDS: CLOTRIMAZOLE 1% TOPICAL SOLN 10 ML TP SCH ×3 (05:26→21:38)
[2018-06-05] MEDS: GABAPENTIN 400 MG CAPSULE PO SCH ×2 (05:42→14:21)
[2018-06-05] MEDS: LANSOPRAZOLE 15 MG TAB.RAP.DR PO SCH (05:42)
[2018-06-05] MEDS: CHOLESTYRAMINE/ASPARTAME 4 GM PACKET PO SCH ×4 (08:43→21:38)
[2018-06-05] MEDS: OXYCODONE HCL SR 40 MG TABLET PO SCH (10:19)
[2018-06-05] MEDS: INSULIN DETEMIR 100 UNIT/ML 3 ML PEN SUBCUT SCH ×2 (10:20→21:37)
[2018-06-05] MEDS: DULOXETINE HCL 30 MG CAPSULE.DR PO SCH ×2 (10:20→18:22)
[2018-06-05] MEDS: ASCORBIC ACID 500 MG TABLET PO SCH ×2 (10:20→18:21)
[2018-06-05] MEDS: MULTIVIT-STRESS FORMULA/ZINC TABLET PO SCH (10:20)
[2018-06-05] MEDS: NORMAL SALINE 10 ML SDV (SCHEDULED) IV SCH ×2 (10:22→21:35)
[2018-06-05] MEDS: ENOXAPARIN SODIUM INJ 40 MG/0.4 ML DISP.SYRIN SUBCUT SCH (10:33)
--- NOTE | 2018-06-05 16:59 | PDOC PROGRESS REPORT ---
Subjective Progress Note for:: 06/05/18 Subjective:: Patient complaining of pain which seems to be recurring theme. He has been requesting more analgesics despite the fact that he had been on oxycodone every 6 hours as well as OxyContin 40 mg every 12 hours as well as tramadol appears he had been on Dilaudid which was recently discontinued., Reason For Visit: INFECTED BUTTOCK ULCER,ABSCESS RIGHT AXILLA Physical Exam Vital Signs: Temp Pulse Resp BP Pulse Ox 98.6 F 75 19 123/70 97 06/05/18 16:00 06/05/18 16:00 06/05/18 16:00 06/05/18 16:00 06/05/18 16:00 Intake & Output 06/04/18 06/05/18 06/06/18 06:59 06:59 06:59 Intake Total 1870 1842 478 Output Total 2600 1400 260 Balance -730 442 218 Weight 66.4 kg 66.1 kg General appearance: PRESENT: no acute distress Head exam: PRESENT: atraumatic Ear exam: PRESENT: normal external ear exam Neck exam: ABSENT: carotid bruit, JVD, lymphadenopathy, thyromegaly Extremities exam: PRESENT: other - R axillary, upper arm with dressing Buttocks with xple wounds Neurological exam: PRESENT: alert, awake, oriented to person, oriented to place Results Laboratory Results: 06/04/18 03:50 06/01/18 07:30 06/01/18 17:00 Groin - Right Gram Stain - Final 06/01/18 17:00 Groin - Right Wound Culture - Final Escherichia Coli Proteus Mirabilis Enterococcus Faecalis(Group D) Impressions: Pelvis CT 05/24/18 07:46 IMPRESSION: No evidence of abscess or osteomyelitis. Guidance Fluoroscopy 05/30/18 00:00 IMPRESSION: SUCCESSFUL PLACEMENT OF A 5 FR DUAL LUMEN 46 CM PICC IN THE LEFT BASILIC VEIN. Interventional Vascular Procedure 05/30/18 00:00 IMPRESSION: SUCCESSFUL PLACEMENT OF A 5 FR DUAL LUMEN 46 CM PICC IN THE LEFT BASILIC VEIN. PICC Line Insertion 05/30/18 00:00 IMPRESSION: SUCCESSFUL PLACEMENT OF A 5 FR DUAL LUMEN 46 CM PICC IN THE LEFT BASILIC VEIN. Assessment & Plan - Diagnosis (1) Axillary abscess Is this a current diagnosis for this admission?: Yes (2) Cellulitis and abscess of buttock Is this a current diagnosis for this admission?: Yes (3) Nutrient intake below expected requirement Is this a current diagnosis for this admission?: Yes (4) Chronic prescription opiate use Is this a current diagnosis for this admission?: Yes Plan: Adjust Hydromorphone. Consult pain management (5) Hidradenitis suppurativa Is this a current diagnosis for this admission?: Yes (6) Severe protein-calorie malnutrition Is this a current diagnosis for this admission?: Yes - Time Time Spent with patient: 25-34 minutes Medications reviewed and adjusted accordingly: Yes Anticipated discharge: SNF - Inpatient Certification Based on my medical assessment, after consideration of the patient's comorbidities, presenting symptoms, or acuity I expect that the services needed warrant INPATIENT care.: Yes Medical Necessity: Need for IV Antibiotics
[2018-06-05] MEDS: OXYCODONE HCL SR 10 MG TABLET PO SCH (20:02)
[2018-06-05] MEDS: PREGABALIN 100 MG CAPSULE PO SCH (21:36)
[2018-06-05] MEDS: PREGABALIN 50 MG CAPSULE PO SCH (21:36)
[2018-06-05] MEDS ORDERED: OXYCODONE HCL SR 10 MG TABLET PO SCH (22:00)
[2018-06-05] MEDS ORDERED: OXYCODONE HCL SR 40 MG TABLET PO SCH (22:00)
[2018-06-06] MEDS: OXYCODONE HCL IR 5 MG TABLET PO PRN ×3 (01:46→17:55)
[2018-06-06] MEDS: KETOROLAC TROMETHAMINE INJ/PF 30 MG/1 ML SDV IV PRN ×4 (01:50→20:39)
[2018-06-06] MEDS: OXYCODONE HCL SR 10 MG TABLET PO SCH ×3 (06:14→22:15)
[2018-06-06] MEDS: LANSOPRAZOLE 15 MG TAB.RAP.DR PO SCH (06:16)
[2018-06-06] MEDS: PREGABALIN 50 MG CAPSULE PO SCH ×3 (06:16→22:15)
[2018-06-06] MEDS: PREGABALIN 100 MG CAPSULE PO SCH ×3 (06:17→22:15)
[2018-06-06] MEDS: CLOTRIMAZOLE 1% TOPICAL SOLN 10 ML TP SCH ×3 (06:17→22:16)
[2018-06-06] MEDS: CHOLESTYRAMINE/ASPARTAME 4 GM PACKET PO SCH ×4 (07:54→22:17)
[2018-06-06] MEDS: NORMAL SALINE 10 ML SDV (SCHEDULED) IV SCH ×2 (09:59→22:17)
[2018-06-06] MEDS: ENOXAPARIN SODIUM INJ 40 MG/0.4 ML DISP.SYRIN SUBCUT SCH (09:59)
[2018-06-06] MEDS: DULOXETINE HCL 30 MG CAPSULE.DR PO SCH ×2 (09:59→17:54)
[2018-06-06] MEDS: MULTIVIT-STRESS FORMULA/ZINC TABLET PO SCH (09:59)
[2018-06-06] MEDS: INSULIN DETEMIR 100 UNIT/ML 3 ML PEN SUBCUT SCH ×2 (10:00→22:23)
[2018-06-06] MEDS: ASCORBIC ACID 500 MG TABLET PO SCH ×2 (10:00→17:55)
--- NOTE | 2018-06-06 10:14 | CONSULTATION REPORT E ---
Consultation Report NAME: TIA VILLANUEVA : 1965 AGE: 52Y DATE: 527 A TO: ALINA CONCEPCION PA-C FROM: PATRICIA BRWON M.D. Requesting Physician CHIEF COMPLAINT: Pain due to sacral decubitus ulcer. HISTORY OF PRESENT ILLNESS: The patient has had pain due to chronic severe sacral and perianal ulcers many years. He has been in and out of [facility] and inpatient rehab, was admitted about 2 weeks ago due to worsening ulcer infection and has been on IV antibiotics. In regard to pain medication, he is currently being prescribed OxyContin 40 mg twice daily and oxycodone 20 mg 4 times a day, and states it is helpful, but it is not strong enough. He denies side effects. On an outpatient basis, he is prescribed OxyContin 30 three a day and oxycodone IR 30 three a day, which he states worked better, but it was still not strong enough in his opinion. He previously failed morphine, fentanyl, Vicodin, methadone, Dilaudid, and levorphanol, which were all not effective, and he states Neurontin is not helpful either. He is prescribed Lyrica 150 mg 3 a day on an outpatient basis and states this is more effective and denies side effects. He states the Toradol he has been given recently has been helpful and he has noticed a difference with this. There are no further voiced concerns at this time. PAST MEDICAL HISTORY: Positive for: 1. Hidradenitis. 2. Hypertension. 3. Crohn's. 4. Arthritis. 5. Anxiety. 6. Depression. 7. Type 2 diabetes. ALLERGIES: PER CHART. MEDICATIONS: As per chart. SOCIAL HISTORY: He smokes 1/2 a pack a day. Denies alcohol or illicit drug use. REVIEW OF SYSTEMS: CONSTITUTIONAL: The patient denies fevers, chills, dizziness, weakness, loss of appetite. SKIN: Positive for dry skin and infection. Denies bruising, itching, diaphoresis. HEENT: Denies visual changes or difficulty hearing. CARDIOVASCULAR: Denies chest pain, edema, heart palpitations. RESPIRATORY: Denies cough, sputum production. GASTROINTESTINAL: Denies nausea, vomiting, diarrhea, abdominal pain, or constipation. URINARY: Denies dysuria or hematuria. MUSCULOSKELETAL: Positive for generalized joint pain and stiffness. NEUROLOGIC: Denies weakness, bowel or bladder incontinence, saddle anesthesia. No seizures, tremors, or loss of consciousness. ENDOCRINE: Denies recent weight changes. Review of systems otherwise negative. PHYSICAL EXAMINATION: GENERAL: On examination, the patient is a well-developed, well-nourished, -[place] male who appears stated age and is awake, alert, and oriented to person, place, and time. He does not appear to be in acute distress. When I arrived, he was sitting comfortably right in bed, but did grimace with movement. VITAL SIGNS: Stable. SKIN: Warm and dry, not diaphoretic. He declined exam of his ulcers at this time. HEENT: Normocephalic, atraumatic. Extraocular muscles are intact. NECK: Supple, nontender. CARDIOVASCULAR: Radial pulses 2+ bilaterally. LUNGS: Respirations nonlabored. EXTREMITIES: Moves all extremities without difficulty. NEUROLOGIC: Ethernet Network Architect strength is 5/5 bilaterally. No clonus or tremors. PSYCHIATRIC: The patient is alert and oriented to person, place, and time. IMPRESSION AND PLAN: Chronic pain due to chronic sacral ulcer. This is a difficult case. The patient has been on high-dose opioids through his primary care provider for a number of years and is very opioid tolerant. He has failed numerous opioids. At home he takes OxyContin 30 q. 8 and oxycodone IR 30 mg 3 a day, so his overall oxycodone dose is 180 mg a day, which he states is helpful, but it was still not strong enough in his opinion. Discussed realistic expectations of pain control with the patient in detail. He is currently receiving OxyContin 40 mg q. 12 and oxycodone IR 20 mg q. 6, so his overall oxycodone dose is 160 mg, which is actually less than what he receives on outpatient basis. I will return the patient to his home regimen of OxyContin 30 mg q. 8 and oxycodone IR 30 mg 30 mg 3 times a day as this was slightly more effective. I also recommend changing Neurontin to Lyrica, as this worked better in the past as well and he denies any side effects. We will continue the Toradol since he has benefited some with this. Again, discussed realistic expectations of pain control with the patient, that we will try to manage his pain to a more tolerable level, but he will not be pain free. No other recommendations at this time. The patient was discussed with Dr. Mo Carrasquillo. DICTATING PHYSICIAN: ALINA CONCEPCION PA-C [id number] PHY#: [id number] ID: [id number] JOB#: [id number] ACCT: [id number] cc:ALINA CONCEPCION PA-C > MTDD
[2018-06-06 11:21] LABS: ABSOLUTE BASOPHILS # (AUTO) 0.1 10^3/uL (0.0-0.2); ABSOLUTE EOSINOPHILS # (AUTO) 0.7 10^3/uL (0.0-0.6); ABSOLUTE LYMPHOCYTES (AUTO) 4.6 10^3/uL (0.5-4.7); ABSOLUTE MONOCYTES (AUTO) 1.3 10^3/uL (0.1-1.4); ABSOLUTE NEUT (AUTO) 8.3 10^3/uL (1.7-8.2); BASOPHILS % (AUTO) 0.4 % (0-2); EOSINOPHILS % (AUTO) 4.8 % (0-6); HEMOGLOBIN 10.3 g/dL (13.5-17.0); LYMPHOCYTES % (AUTO) 30.7 % (13-45); MEAN CORPUSCULAR HEMOGLOBIN 25.7 pg (27.0-33.4); MEAN CORPUSCULAR HGB CONC 32.3 g/dL (32.0-36.0); MEAN CORPUSCULAR VOLUME 80 fl (80-97); PLATELET COUNT 916 10^3/uL (150-450); RED BLOOD COUNT 4.02 10^6/uL (4.35-5.55); RED CELL DISTRIBUTION WIDTH 17.2 % (11.5-14.0); SEGMENTED NEUTROPHILS % (AUTO) 55.1 % (42-78); TOTAL CELLS COUNTED % (AUTO) 100 %
[2018-06-06 11:46] LABS: ANION GAP 7 (5-19); BLOOD UREA NITROGEN 20 mg/dL (7-20); CARBON DIOXIDE 29 mmol/L (22-30); CHLORIDE 102 mmol/L (98-107); GLUCOSE 98 mg/dL (75-110); POTASSIUM 5.2 mmol/L (3.6-5.0); SODIUM 138.2 mmol/L (137-145)
--- NOTE | 2018-06-06 13:54 | PDOC PROGRESS REPORT ---
Subjective Progress Note for:: 06/06/18 Subjective:: Patient still c/o pain. he was seen by Pain Management and consult appreciated. Meds have been adjusted Reason For Visit: INFECTED BUTTOCK ULCER,ABSCESS RIGHT AXILLA Physical Exam Vital Signs: Temp Pulse Resp BP Pulse Ox 98.3 F 66 22 H 128/79 H 98 06/06/18 08:00 06/06/18 08:00 06/06/18 08:00 06/06/18 08:00 06/06/18 08:00 Intake & Output 06/05/18 06/06/18 06/07/18 06:59 06:59 06:59 Intake Total 1842 1178 Output Total 1400 1110 Balance 442 68 Weight 66.1 kg 65.8 kg General appearance: PRESENT: no acute distress, thin Head exam: PRESENT: atraumatic Neck exam: ABSENT: carotid bruit, JVD, lymphadenopathy, thyromegaly Respiratory exam: PRESENT: clear to auscultation daija. ABSENT: rales, rhonchi, wheezes Cardiovascular exam: PRESENT: RRR. ABSENT: diastolic murmur, rubs, systolic murmur Pulses: PRESENT: normal dorsalis pedis pul Musculoskeletal exam: PRESENT: other. ABSENT: normal inspection Neurological exam: PRESENT: alert, awake, oriented to person, oriented to place , oriented to time, CN II-XII grossly intact Skin exam: PRESENT: abrasion, rash, other - sacral decubitus, skin tracts Results Laboratory Results: 06/06/18 08:40 06/06/18 08:40 06/06/18 06/06/18 08:40 08:40 WBC 15.0 H RBC 4.02 L Hgb 10.3 L Hct 32.0 L MCV 80 MCH 25.7 L MCHC 32.3 RDW 17.2 H Plt Count 916 H Seg Neutrophils % 55.1 Lymphocytes % 30.7 Monocytes % 9.0 Eosinophils % 4.8 Basophils % 0.4 Absolute Neutrophils 8.3 H Absolute Lymphocytes 4.6 Absolute Monocytes 1.3 Absolute Eosinophils 0.7 H Absolute Basophils 0.1 Sodium 138.2 Potassium 5.2 H Chloride 102 Carbon Dioxide 29 Anion Gap 7 BUN 20 Creatinine 0.61 Est GFR ( Amer) > 60 Est GFR (Non-Af Amer) > 60 Glucose 98 Calcium 9.0 Impressions: Pelvis CT 05/24/18 07:46 IMPRESSION: No evidence of abscess or osteomyelitis. Guidance Fluoroscopy 05/30/18 00:00 IMPRESSION: SUCCESSFUL PLACEMENT OF A 5 FR DUAL LUMEN 46 CM PICC IN THE LEFT BASILIC VEIN. Interventional Vascular Procedure 05/30/18 00:00 IMPRESSION: SUCCESSFUL PLACEMENT OF A 5 FR DUAL LUMEN 46 CM PICC IN THE LEFT BASILIC VEIN. PICC Line Insertion 05/30/18 00:00 IMPRESSION: SUCCESSFUL PLACEMENT OF A 5 FR DUAL LUMEN 46 CM PICC IN THE LEFT BASILIC VEIN. Assessment & Plan - Diagnosis (1) Axillary abscess Is this a current diagnosis for this admission?: Yes Plan: E. Coli, Proteus and Enterococcus cultured from wound Was on Zosyn till 06/04 WBC still high and platelet count at [id number] Wound area at axilla looks clean. Will continue antibiotic for few more days, Invanz would cover all 3 organisma (2) Cellulitis and abscess of buttock Is this a current diagnosis for this admission?: Yes (3) Nutrient intake below expected requirement Is this a current diagnosis for this admission?: Yes (4) Chronic prescription opiate use Is this a current diagnosis for this admission?: Yes (5) Hidradenitis suppurativa Is this a current diagnosis for this admission?: Yes (6) Severe protein-calorie malnutrition Is this a current diagnosis for this admission?: Yes (7) Reactive thrombocytosis Is this a current diagnosis for this admission?: Yes - Time Time Spent with patient: 25-34 minutes Medications reviewed and adjusted accordingly: Yes Anticipated discharge: Home Within: within 72 hours - Inpatient Certification Based on my medical assessment, after consideration of the patient's comorbidities, presenting symptoms, or acuity I expect that the services needed warrant INPATIENT care.: Yes Medical Necessity: Need for IV Antibiotics, Risk of Complication if Not Cared For in Hospital
[2018-06-06] MEDS: ERTAPENEM SODIUM 1 GM in NORMAL SALINE 50 ML IV SCH (15:24)
[2018-06-06] MEDS ORDERED: OXYCODONE HCL SR 10 MG TABLET PO SCH (19:00)
[2018-06-07] MEDS: OXYCODONE HCL IR 5 MG TABLET PO PRN ×3 (02:54→18:53)
[2018-06-07] MEDS: KETOROLAC TROMETHAMINE INJ/PF 30 MG/1 ML SDV IV PRN ×3 (04:18→17:28)
[2018-06-07 05:12] LABS: ABSOLUTE BASOPHILS # (AUTO) 0.1 10^3/uL (0.0-0.2); ABSOLUTE EOSINOPHILS # (AUTO) 0.7 10^3/uL (0.0-0.6); ABSOLUTE LYMPHOCYTES (AUTO) 3.9 10^3/uL (0.5-4.7); ABSOLUTE MONOCYTES (AUTO) 1.7 10^3/uL (0.1-1.4); ABSOLUTE NEUT (AUTO) 12.5 10^3/uL (1.7-8.2); BASOPHILS % (AUTO) 0.3 % (0-2); EOSINOPHILS % (AUTO) 3.9 % (0-6); HEMATOCRIT 32.3 % (37.9-51.0); HEMOGLOBIN 10.7 g/dL (13.5-17.0); LYMPHOCYTES % (AUTO) 20.7 % (13-45); MEAN CORPUSCULAR HEMOGLOBIN 25.9 pg (27.0-33.4); MEAN CORPUSCULAR VOLUME 78 fl (80-97); MONOCYTES % (AUTO) 8.7 % (3-13); PLATELET COUNT 933 10^3/uL (150-450); RED BLOOD COUNT 4.13 10^6/uL (4.35-5.55); RED CELL DISTRIBUTION WIDTH 17.2 % (11.5-14.0); SEGMENTED NEUTROPHILS % (AUTO) 66.4 % (42-78); TOTAL CELLS COUNTED % (AUTO) 100 %; WHITE BLOOD COUNT 18.9 10^3/uL (4.0-10.5)
[2018-06-07] MEDS: OXYCODONE HCL SR 10 MG TABLET PO SCH ×3 (05:59→21:27)
[2018-06-07] MEDS: PREGABALIN 100 MG CAPSULE PO SCH ×3 (05:59→21:27)
[2018-06-07] MEDS: PREGABALIN 50 MG CAPSULE PO SCH ×3 (05:59→21:27)
[2018-06-07] MEDS: LANSOPRAZOLE 15 MG TAB.RAP.DR PO SCH (06:00)
[2018-06-07] MEDS: CLOTRIMAZOLE 1% TOPICAL SOLN 10 ML TP SCH ×3 (06:05→21:28)
[2018-06-07] MEDS: CHOLESTYRAMINE/ASPARTAME 4 GM PACKET PO SCH ×4 (07:13→21:29)
[2018-06-07] MEDS: NORMAL SALINE 10 ML SDV (SCHEDULED) IV SCH ×2 (10:28→21:27)
[2018-06-07] MEDS: ENOXAPARIN SODIUM INJ 40 MG/0.4 ML DISP.SYRIN SUBCUT SCH (10:28)
[2018-06-07] MEDS: MULTIVIT-STRESS FORMULA/ZINC TABLET PO SCH (10:29)
[2018-06-07] MEDS: DULOXETINE HCL 30 MG CAPSULE.DR PO SCH ×2 (10:29→17:29)
[2018-06-07] MEDS: ASCORBIC ACID 500 MG TABLET PO SCH ×2 (10:29→17:29)
[2018-06-07] MEDS: INSULIN DETEMIR 100 UNIT/ML 3 ML PEN SUBCUT SCH ×2 (10:29→21:28)
[2018-06-07] MEDS: ERTAPENEM SODIUM 1 GM in NORMAL SALINE 50 ML IV SCH (11:29)
--- NOTE | 2018-06-07 14:26 | PDOC PROGRESS REPORT ---
Subjective Progress Note for:: 06/07/18 Subjective:: Patient still has numerous complaints. Says he still has discharge from his buttocks however there was minimal discharge seen when I examined patient. R axillary wound still has a drain but minimal discharge seen also Reason For Visit: INFECTED BUTTOCK ULCER,ABSCESS RIGHT AXILLA Physical Exam Vital Signs: Temp Pulse Resp BP Pulse Ox 98.7 F 77 12 131/84 H 97 06/07/18 11:09 06/07/18 11:09 06/07/18 11:09 06/07/18 11:09 06/07/18 11:09 Intake & Output 06/06/18 06/07/18 06/08/18 06:59 06:59 06:59 Intake Total 1178 1076 Output Total 1110 1575 Balance 68 -499 Weight 65.8 kg 67.2 kg General appearance: PRESENT: no acute distress, thin Head exam: PRESENT: atraumatic, normocephalic Eye exam: PRESENT: conjunctiva pink, EOMI, PERRLA. ABSENT: scleral icterus Ear exam: PRESENT: normal external ear exam Mouth exam: PRESENT: moist, tongue midline Neck exam: ABSENT: carotid bruit, JVD, lymphadenopathy, thyromegaly Respiratory exam: PRESENT: clear to auscultation daija. ABSENT: rales, rhonchi, wheezes Cardiovascular exam: PRESENT: RRR. ABSENT: diastolic murmur, rubs, systolic murmur Pulses: PRESENT: normal dorsalis pedis pul Vascular exam: PRESENT: normal capillary refill GI/Abdominal exam: PRESENT: normal bowel sounds, soft, other - ostomy bag. ABSENT: distended, guarding, mass, organolmegaly, rebound, tenderness Rectal exam: PRESENT: deferred, other - xple healed and healing lesions, minimal drainage seen Extremities exam: PRESENT: full ROM, other - L axillary wound healing well. ABSENT: calf tenderness, clubbing, pedal edema Neurological exam: PRESENT: alert, awake, oriented to person, oriented to place , oriented to time, oriented to situation, CN II-XII grossly intact. ABSENT: motor sensory deficit Psychiatric exam: PRESENT: appropriate affect, normal mood. ABSENT: homicidal ideation, suicidal ideation Skin exam: PRESENT: dry, intact, warm. ABSENT: cyanosis, rash Results Laboratory Results: 06/07/18 04:48 06/06/18 08:40 06/07/18 04:48 WBC 18.9 H RBC 4.13 L Hgb 10.7 L Hct 32.3 L MCV 78 L MCH 25.9 L MCHC 33.0 RDW 17.2 H Plt Count 933 H Seg Neutrophils % 66.4 Lymphocytes % 20.7 Monocytes % 8.7 Eosinophils % 3.9 Basophils % 0.3 Absolute Neutrophils 12.5 H Absolute Lymphocytes 3.9 Absolute Monocytes 1.7 H Absolute Eosinophils 0.7 H Absolute Basophils 0.1 06/01/18 15:45 Blood Blood Culture - Final NO GROWTH IN 5 DAYS 06/01/18 15:35 Blood Blood Culture - Final NO GROWTH IN 5 DAYS Impressions: Pelvis CT 05/24/18 07:46 IMPRESSION: No evidence of abscess or osteomyelitis. Guidance Fluoroscopy 05/30/18 00:00 IMPRESSION: SUCCESSFUL PLACEMENT OF A 5 FR DUAL LUMEN 46 CM PICC IN THE LEFT BASILIC VEIN. Interventional Vascular Procedure 05/30/18 00:00 IMPRESSION: SUCCESSFUL PLACEMENT OF A 5 FR DUAL LUMEN 46 CM PICC IN THE LEFT BASILIC VEIN. PICC Line Insertion 05/30/18 00:00 IMPRESSION: SUCCESSFUL PLACEMENT OF A 5 FR DUAL LUMEN 46 CM PICC IN THE LEFT BASILIC VEIN. Assessment & Plan - Diagnosis (1) Axillary abscess Is this a current diagnosis for this admission?: Yes (2) Cellulitis and abscess of buttock Is this a current diagnosis for this admission?: Yes Plan: Started back on Invaz. Wound does look clean. Kelly junior on 06/04. Will recheck labs in am (3) Nutrient intake below expected requirement Is this a current diagnosis for this admission?: Yes Plan: Encourage nutrition (4) Chronic prescription opiate use Is this a current diagnosis for this admission?: Yes (5) Hidradenitis suppurativa Is this a current diagnosis for this admission?: Yes (6) Severe protein-calorie malnutrition Is this a current diagnosis for this admission?: Yes (7) Reactive thrombocytosis Is this a current diagnosis for this admission?: Yes - Time Time Spent with patient: 15-24 minutes Medications reviewed and adjusted accordingly: Yes Anticipated discharge: Home with Homehealth Within: within 72 hours - Inpatient Certification Based on my medical assessment, after consideration of the patient's comorbidities, presenting symptoms, or acuity I expect that the services needed warrant INPATIENT care.: Yes Medical Necessity: Need for IV Antibiotics, Risk of Complication if Not Cared For in Hospital - Plan Summary Plan Summary: Will need to ensure dbc downward trend prior to dc
[2018-06-08] MEDS: OXYCODONE HCL IR 5 MG TABLET PO PRN ×3 (03:35→21:14)
[2018-06-08 04:44] LABS: HEMATOCRIT 32.2 % (37.9-51.0); HEMOGLOBIN 10.5 g/dL (13.5-17.0); MEAN CORPUSCULAR HEMOGLOBIN 25.4 pg (27.0-33.4); MEAN CORPUSCULAR HGB CONC 32.6 g/dL (32.0-36.0); MEAN CORPUSCULAR VOLUME 78 fl (80-97); PLATELET COUNT 851 10^3/uL (150-450); RED BLOOD COUNT 4.14 10^6/uL (4.35-5.55); RED CELL DISTRIBUTION WIDTH 17.3 % (11.5-14.0)
[2018-06-08 05:20] LABS: ABSOLUTE LYMPHOCYTES# (MANUAL) 3.4 10^3/uL (0.5-4.7); ABSOLUTE MONOCYTES # (MANUAL) 1.2 10^3/uL (0.1-1.4); ABSOLUTE NEUTROPHILS# (MANUAL) 15.4 10^3/uL (1.7-8.2); ANISOCYTOSIS 1+; BASOPHILS % (MANUAL) 0 % (0-2); EOSINOPHILS % (MANUAL) 0 % (0-6); HYPOCHROMASIA SLIGHT; LYMPHOCYTES % (MANUAL) 14 % (13-45); MONOCYTES % (MANUAL) 6 % (3-13); OVALOCYTES SLIGHT; PLATELET COMMENT INCREASED; SEGMENTED NEUTROPHILS % (MAN) 77 % (42-78); TARGET CELLS SLIGHT; TOTAL CELLS COUNTED 100; TOXIC GRANULATION SLIGHT
[2018-06-08 05:22] LABS: ANION GAP 11 (5-19); BLOOD UREA NITROGEN 20 mg/dL (7-20); C-REACTIVE PROTEIN 53.9 mg/L (<10.0); CALCIUM 8.7 mg/dL (8.4-10.2); CARBON DIOXIDE 28 mmol/L (22-30); CHLORIDE 98 mmol/L (98-107); GLUCOSE 100 mg/dL (75-110); SODIUM 136.6 mmol/L (137-145)
[2018-06-08] MEDS: PREGABALIN 50 MG CAPSULE PO SCH ×3 (05:52→21:15)
[2018-06-08] MEDS: LANSOPRAZOLE 15 MG TAB.RAP.DR PO SCH (05:52)
[2018-06-08] MEDS: OXYCODONE HCL SR 10 MG TABLET PO SCH ×3 (05:52→23:15)
[2018-06-08] MEDS: CLOTRIMAZOLE 1% TOPICAL SOLN 10 ML TP SCH ×3 (05:52→21:18)
[2018-06-08] MEDS: PREGABALIN 100 MG CAPSULE PO SCH ×3 (05:52→21:15)
[2018-06-08] MEDS: KETOROLAC TROMETHAMINE INJ/PF 30 MG/1 ML SDV IV PRN ×3 (06:30→19:29)
[2018-06-08] MEDS: CHOLESTYRAMINE/ASPARTAME 4 GM PACKET PO SCH ×4 (08:29→21:18)
[2018-06-08] MEDS: MULTIVIT-STRESS FORMULA/ZINC TABLET PO SCH (09:20)
[2018-06-08] MEDS: DULOXETINE HCL 30 MG CAPSULE.DR PO SCH ×2 (09:20→19:29)
[2018-06-08] MEDS: INSULIN DETEMIR 100 UNIT/ML 3 ML PEN SUBCUT SCH ×2 (09:20→21:16)
[2018-06-08] MEDS: ASCORBIC ACID 500 MG TABLET PO SCH ×2 (09:20→19:29)
[2018-06-08] MEDS: ENOXAPARIN SODIUM INJ 40 MG/0.4 ML DISP.SYRIN SUBCUT SCH (09:21)
[2018-06-08] MEDS: NORMAL SALINE 10 ML SDV (SCHEDULED) IV SCH ×2 (09:23→21:18)
[2018-06-08] MEDS: ERTAPENEM SODIUM 1 GM in NORMAL SALINE 50 ML IV SCH (12:00)
--- NOTE | 2018-06-08 14:20 | PDOC PROGRESS REPORT ---
Subjective Progress Note for:: 06/08/18 Subjective:: Patient still has numerous complaints. Says he still has discharge from his buttocks. I have requested surgery to reevaluate him and I have also consulted ID to help with antibiotic choice if still needed. Although WBC is up patient is clinically stable and improved CRP down to 34 Reason For Visit: INFECTED BUTTOCK ULCER,ABSCESS RIGHT AXILLA Physical Exam Vital Signs: Temp Pulse Resp BP Pulse Ox 98.0 F 81 16 99/61 L 99 06/08/18 11:38 06/08/18 11:38 06/08/18 11:38 06/08/18 11:38 06/08/18 11:38 Intake & Output 06/07/18 06/08/18 06/09/18 06:59 06:59 06:59 Intake Total 1076 1312 50 Output Total 1575 800 Balance -499 512 50 Weight 67.2 kg 68.1 kg General appearance: PRESENT: no acute distress, thin Head exam: PRESENT: atraumatic, normocephalic Eye exam: PRESENT: conjunctiva pink, EOMI, PERRLA. ABSENT: scleral icterus Ear exam: PRESENT: normal external ear exam Mouth exam: PRESENT: moist, tongue midline Neck exam: ABSENT: carotid bruit, JVD, lymphadenopathy, thyromegaly Respiratory exam: PRESENT: clear to auscultation daija. ABSENT: rales, rhonchi, wheezes Cardiovascular exam: PRESENT: RRR. ABSENT: diastolic murmur, rubs, systolic murmur Pulses: PRESENT: normal dorsalis pedis pul Vascular exam: PRESENT: normal capillary refill GI/Abdominal exam: PRESENT: normal bowel sounds, soft, other - ostomy bag. ABSENT: distended, guarding, mass, organolmegaly, rebound, tenderness Rectal exam: PRESENT: deferred, other - scar tissue and xple hyperplastic region of buttocks, minimal drainage Extremities exam: PRESENT: other - R axilla with Pinrose drain. ABSENT: calf tenderness, clubbing, pedal edema Neurological exam: PRESENT: alert, awake, oriented to person, oriented to place , oriented to time, oriented to situation, CN II-XII grossly intact. ABSENT: motor sensory deficit Psychiatric exam: PRESENT: appropriate affect, normal mood. ABSENT: homicidal ideation, suicidal ideation Skin exam: PRESENT: dry, intact, warm. ABSENT: cyanosis, rash Results Laboratory Results: 06/08/18 04:02 06/08/18 04:02 06/08/18 06/08/18 04:02 04:02 WBC 20.0 H RBC 4.14 L Hgb 10.5 L Hct 32.2 L MCV 78 L MCH 25.4 L MCHC 32.6 RDW 17.3 H Plt Count 851 H Seg Neutrophils % Not Reportable Lymphocytes % Not Reportable Monocytes % Not Reportable Eosinophils % Not Reportable Basophils % Not Reportable Absolute Neutrophils Not Reportable Absolute Lymphocytes Not Reportable Absolute Monocytes Not Reportable Absolute Eosinophils Not Reportable Absolute Basophils Not Reportable Sodium 136.6 L Potassium 5.0 Chloride 98 Carbon Dioxide 28 Anion Gap 11 BUN 20 Creatinine 0.70 Est GFR ( Amer) > 60 Est GFR (Non-Af Amer) > 60 Glucose 100 Calcium 8.7 C-Reactive Protein 53.9 H Impressions: Pelvis CT 05/24/18 07:46 IMPRESSION: No evidence of abscess or osteomyelitis. Guidance Fluoroscopy 05/30/18 00:00 IMPRESSION: SUCCESSFUL PLACEMENT OF A 5 FR DUAL LUMEN 46 CM PICC IN THE LEFT BASILIC VEIN. Interventional Vascular Procedure 05/30/18 00:00 IMPRESSION: SUCCESSFUL PLACEMENT OF A 5 FR DUAL LUMEN 46 CM PICC IN THE LEFT BASILIC VEIN. PICC Line Insertion 05/30/18 00:00 IMPRESSION: SUCCESSFUL PLACEMENT OF A 5 FR DUAL LUMEN 46 CM PICC IN THE LEFT BASILIC VEIN. Assessment & Plan - Diagnosis (1) Axillary abscess Is this a current diagnosis for this admission?: Yes Plan: E. Coli, Proteus and Enterococcus cultured from wound Was on Zosyn till 06/04 WBC higher today and platelet count now at [id number] Wound area at axilla looks clean. Consult ID (2) Cellulitis and abscess of buttock Is this a current diagnosis for this admission?: Yes (3) Nutrient intake below expected requirement Is this a current diagnosis for this admission?: Yes Plan: Encourage nutrition (4) Chronic prescription opiate use Is this a current diagnosis for this admission?: Yes Plan: Continue meds as per pain management (5) Hidradenitis suppurativa Is this a current diagnosis for this admission?: Yes (6) Severe protein-calorie malnutrition Is this a current diagnosis for this admission?: Yes (7) Reactive thrombocytosis Is this a current diagnosis for this admission?: Yes - Time Time Spent with patient: 15-24 minutes Medications reviewed and adjusted accordingly: Yes Anticipated discharge: Home with Homehealth Within: within 72 hours - Inpatient Certification Based on my medical assessment, after consideration of the patient's comorbidities, presenting symptoms, or acuity I expect that the services needed warrant INPATIENT care.: Yes Medical Necessity: Need for IV Antibiotics
--- NOTE | 2018-06-08 16:48 | Progress Note ---
Provider Note Provider Note: ID Consult Note Asked to review patient's chart by Dr Lokcett, with whom I briefly discussed the patient's case via telephone. Pt not seen or examined. Mr. 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 Pt presented this hospitalization on 05/24/18 with c/o R axillary swelling and pain and increased pain at the site of a R ischial/ buttock ulcer. On exam, he was found to have tenderness, erythema and swelling involving the R axillary region, and he ultimately required on 05/26/18 excisional debridement of this recurrent R axillary abscess at two sites with Jaun drain placement. Pt was treated with 8 days of vancomycin (05/24-05/31) and Zosyn (05/28-06/04), followed by Invanz for 3 days (06/06-present 06/08). Labs this admission are notable for persistent leukocytosis. CRP has decreased from 181 on admission to 54 most recently. Imaging results this admission included pelvic CT that showed no evidence of osteomyelitis. Pt is afebrile, currently stable and noted to be improved clinically. His wounds are noted to be clean and uninfected appearing. Impression/Recommendations Axillary abscess - s/p I&D and 10 day course of broad spectrum antibiotics as detailed above - Pt has improved clinically. Inflammatory markers (limited by lack of specificity) can be an adjunct to clinical assessment, and CRP has also improved. This should be an appropriate course of therapy and no further antibiotics required at this time. - Invanz can be discontinued. Leukocytosis - Pt has had leukocytosis since 2014. As prolonged leukocytosis raises concerns about chronic infections and noninfectious etiologies, he was previously recommended to have PPD (negative) and hematological evaluation for possible CML , which was also negative. - The patient's prolonged leukocytosis is likely a reflection of being asplenic and having underlying chronic inflammatory conditions. The patient's PSH includes splenectomy. Asplenia is often associated with moderate neutrophilia. Splenectomized patients often have an exaggerated response to inflammation. - I do not think that continued presence of leukocytosis is a reliable marker for continued presence of infection. Leukocytosis, like ESR or CRP, is ultimately nonspecific and needs to be taken into clinical context, and pt has clinically improved. José Manuel Joy MD [facility] Infectious Diseases pager [phone]
[2018-06-09] MEDS: KETOROLAC TROMETHAMINE INJ/PF 30 MG/1 ML SDV IV PRN ×3 (03:33→18:23)
[2018-06-09] MEDS: PREGABALIN 100 MG CAPSULE PO SCH ×3 (05:22→22:47)
[2018-06-09] MEDS: LANSOPRAZOLE 15 MG TAB.RAP.DR PO SCH (05:22)
[2018-06-09] MEDS: PREGABALIN 50 MG CAPSULE PO SCH ×3 (05:22→22:47)
[2018-06-09] MEDS: CLOTRIMAZOLE 1% TOPICAL SOLN 10 ML TP SCH ×3 (05:23→22:48)
[2018-06-09] MEDS: OXYCODONE HCL IR 5 MG TABLET PO PRN ×3 (05:23→23:52)
[2018-06-09 05:41] LABS: ABSOLUTE LYMPHOCYTES (AUTO) 4.4 10^3/uL (0.5-4.7); ABSOLUTE MONOCYTES (AUTO) 1.8 10^3/uL (0.1-1.4); ABSOLUTE NEUT (AUTO) 7.2 10^3/uL (1.7-8.2); BASOPHILS % (AUTO) 0.1 % (0-2); EOSINOPHILS % (AUTO) 7.1 % (0-6); HEMATOCRIT 31.2 % (37.9-51.0); HEMOGLOBIN 10.3 g/dL (13.5-17.0); LYMPHOCYTES % (AUTO) 30.4 % (13-45); MEAN CORPUSCULAR VOLUME 79 fl (80-97); MONOCYTES % (AUTO) 12.5 % (3-13); PLATELET COUNT 740 10^3/uL (150-450); RED BLOOD COUNT 3.96 10^6/uL (4.35-5.55); RED CELL DISTRIBUTION WIDTH 17.3 % (11.5-14.0); SEGMENTED NEUTROPHILS % (AUTO) 49.9 % (42-78); TOTAL CELLS COUNTED % (AUTO) 100 %; WHITE BLOOD COUNT 14.5 10^3/uL (4.0-10.5)
[2018-06-09] MEDS: OXYCODONE HCL SR 10 MG TABLET PO SCH ×3 (06:49→22:46)
[2018-06-09] MEDS: CHOLESTYRAMINE/ASPARTAME 4 GM PACKET PO SCH ×4 (08:30→22:42)
[2018-06-09] MEDS: DULOXETINE HCL 30 MG CAPSULE.DR PO SCH ×2 (09:58→17:48)
[2018-06-09] MEDS: ASCORBIC ACID 500 MG TABLET PO SCH ×2 (09:58→17:48)
[2018-06-09] MEDS: INSULIN DETEMIR 100 UNIT/ML 3 ML PEN SUBCUT SCH ×2 (09:59→22:41)
[2018-06-09] MEDS: ENOXAPARIN SODIUM INJ 40 MG/0.4 ML DISP.SYRIN SUBCUT SCH (09:59)
[2018-06-09] MEDS: MULTIVIT-STRESS FORMULA/ZINC TABLET PO SCH (10:00)
[2018-06-09] MEDS: NORMAL SALINE 10 ML SDV (SCHEDULED) IV SCH ×2 (10:00→22:49)
--- NOTE | 2018-06-09 14:53 | PDOC PROGRESS REPORT ---
Subjective Progress Note for:: 06/09/18 Subjective:: Says he still has discharge from his buttocks. I have requested surgery to reevaluate him although wound looks clean CRP down to 54 Appreciate ID input. Invanz has been discontinued and we will monitor patient off antibiotic for any clinical deterioration. As noted by Dr. Joy patient has a history of persistent leukocytosis which may not be so helpful may be more of an inflammatory marker at this point. I have also asked discharge planning to verify that his family will be willing to take him back home as patient claims that he will be going home on discharge Reason For Visit: INFECTED BUTTOCK ULCER,ABSCESS RIGHT AXILLA Physical Exam Vital Signs: Temp Pulse Resp BP Pulse Ox 98.4 F 64 14 133/83 H 99 06/09/18 08:00 06/09/18 08:00 06/09/18 08:00 06/09/18 08:00 06/09/18 08:00 Intake & Output 06/08/18 06/09/18 06/10/18 06:59 06:59 06:59 Intake Total 1312 1498 Output Total 800 2320 Balance 512 -822 Weight 68.1 kg 69 kg General appearance: PRESENT: no acute distress, thin Head exam: PRESENT: atraumatic, normocephalic Eye exam: PRESENT: conjunctiva pink, EOMI, PERRLA. ABSENT: scleral icterus Ear exam: PRESENT: normal external ear exam Mouth exam: PRESENT: moist, tongue midline Neck exam: ABSENT: carotid bruit, JVD, lymphadenopathy, thyromegaly Respiratory exam: PRESENT: clear to auscultation [place]. ABSENT: rales, rhonchi, wheezes Cardiovascular exam: PRESENT: RRR. ABSENT: diastolic murmur, rubs, systolic murmur Pulses: PRESENT: normal dorsalis pedis pul Vascular exam: PRESENT: normal capillary refill GI/Abdominal exam: PRESENT: normal bowel sounds, soft, other - Ostomy. ABSENT: distended, guarding, mass, organolmegaly, rebound, tenderness Rectal exam: PRESENT: deferred Extremities exam: PRESENT: full ROM, other - Left axilla with a [place] drain. ABSENT: calf tenderness, clubbing, pedal edema Musculoskeletal exam: PRESENT: ambulatory, other - Chronic skin changes around the tox with drainage Neurological exam: PRESENT: alert, awake, oriented to person, oriented to place , oriented to time, oriented to situation, CN II-XII grossly intact. ABSENT: motor sensory deficit Psychiatric exam: PRESENT: appropriate affect, normal mood. ABSENT: homicidal ideation, suicidal ideation Skin exam: PRESENT: dry, intact, warm. ABSENT: cyanosis, rash Results Laboratory Results: 06/09/18 05:30 06/08/18 04:02 06/09/18 05:30 WBC 14.5 H RBC 3.96 L Hgb 10.3 L Hct 31.2 L MCV 79 L MCH 26.0 L MCHC 33.0 RDW 17.3 H Plt Count 740 H Seg Neutrophils % 49.9 Lymphocytes % 30.4 Monocytes % 12.5 Eosinophils % 7.1 H Basophils % 0.1 Absolute Neutrophils 7.2 Absolute Lymphocytes 4.4 Absolute Monocytes 1.8 H Absolute Eosinophils 1.0 H Absolute Basophils 0.0 Impressions: Pelvis CT 05/24/18 07:46 IMPRESSION: No evidence of abscess or osteomyelitis. Guidance Fluoroscopy 05/30/18 00:00 IMPRESSION: SUCCESSFUL PLACEMENT OF A 5 FR DUAL LUMEN 46 CM PICC IN THE LEFT BASILIC VEIN. Interventional Vascular Procedure 05/30/18 00:00 IMPRESSION: SUCCESSFUL PLACEMENT OF A 5 FR DUAL LUMEN 46 CM PICC IN THE LEFT BASILIC VEIN. PICC Line Insertion 05/30/18 00:00 IMPRESSION: SUCCESSFUL PLACEMENT OF A 5 FR DUAL LUMEN 46 CM PICC IN THE LEFT BASILIC VEIN. Assessment & Plan - Diagnosis (1) Axillary abscess Is this a current diagnosis for this admission?: Yes Plan: E. Coli, Proteus and Enterococcus cultured from wound Was on Zosyn till 06/04 Wound area at axilla looks clean. Patient looks clinically stable (2) Cellulitis and abscess of buttock Is this a current diagnosis for this admission?: Yes Plan: Followed by surgery (3) Nutrient intake below expected requirement Is this a current diagnosis for this admission?: Yes (4) Chronic prescription opiate use Is this a current diagnosis for this admission?: Yes Plan: He has been seen by pain management and no further changes to his analgesics recommended (5) Hidradenitis suppurativa Is this a current diagnosis for this admission?: Yes Plan: Chronic with recurrent disabling infections (6) Severe protein-calorie malnutrition Is this a current diagnosis for this admission?: Yes (7) Reactive thrombocytosis Is this a current diagnosis for this admission?: Yes - Time Time Spent with patient: 15-24 minutes Medications reviewed and adjusted accordingly: Yes Anticipated discharge: Home Within: within 72 hours Disposition: Febrile over the weekend with no clinical deterioration likely can be discharged home with home health and follow-up with wound clinic - Inpatient Certification Based on my medical assessment, after consideration of the patient's comorbidities, presenting symptoms, or acuity I expect that the services needed warrant INPATIENT care.: Yes Medical Necessity: Need Close Monitoring Due to Risk of Patient Decompensation, Risk of Complication if Not Cared For in Hospital
[2018-06-10] MEDS: KETOROLAC TROMETHAMINE INJ/PF 30 MG/1 ML SDV IV PRN ×4 (00:38→21:27)
[2018-06-10] MEDS: PREGABALIN 100 MG CAPSULE PO SCH ×3 (05:58→21:17)
[2018-06-10] MEDS: LANSOPRAZOLE 15 MG TAB.RAP.DR PO SCH (05:58)
[2018-06-10] MEDS: OXYCODONE HCL SR 10 MG TABLET PO SCH ×3 (05:58→21:15)
[2018-06-10] MEDS: CLOTRIMAZOLE 1% TOPICAL SOLN 10 ML TP SCH ×3 (05:59→21:36)
[2018-06-10] MEDS: PREGABALIN 50 MG CAPSULE PO SCH ×3 (06:01→21:18)
[2018-06-10] MEDS: OXYCODONE HCL IR 5 MG TABLET PO PRN ×2 (08:52→16:39)
--- NOTE | 2018-06-10 10:11 | PDOC PROGRESS REPORT ---
Subjective Progress Note for:: 06/10/18 Subjective:: The patient still complains of significant pain. 05/26/2018-the patient was seen by surgery. They will be taken to the OR this evening. He still complains of a lot of pain. He was taking 30 mg of immediate release oxycodone every 4 hours as well as OxyContin. 05/27 Still complaining of severe pain. Sleepy today. Will wake up and immediately complain of pain. Appetite is very poor. 05/28/2018-still complaining of significant pain. Surgery reports that the axillary ulcer is stable. The Jaun drain will stay in place. 05/29/2018-before entering the room the patient appeared comfortable. He had an earbud in and was watching a program on his phone. His left arm was flexed. He appeared quite comfortable. When engaging the patient at the start of the encounter his countenance changed and he reported significant pain. 06/10/2018-the patient is known to this provider. He continues to complain of pain which is a chronic issue for him. He was seen by pain management. He states that therapy is try to get him up but his legs are very weak. Reason For Visit: INFECTED BUTTOCK ULCER,ABSCESS RIGHT AXILLA Physical Exam Vital Signs: Temp Pulse Resp BP Pulse Ox 98.6 F 73 15 125/73 100 06/09/18 23:45 06/09/18 23:45 06/09/18 23:45 06/09/18 23:45 06/09/18 23:45 Intake & Output 06/09/18 06/10/18 06/11/18 06:59 06:59 06:59 Intake Total 1498 1174 Output Total 2320 925 Balance -822 249 Weight 69 kg 67.7 kg General appearance: PRESENT: cooperative, mild distress, thin, well-developed Head exam: PRESENT: atraumatic, normocephalic Eye exam: PRESENT: conjunctiva pink. ABSENT: scleral icterus Ear exam: PRESENT: normal external ear exam Mouth exam: PRESENT: moist, tongue midline Neck exam: ABSENT: carotid bruit, JVD, lymphadenopathy Respiratory exam: PRESENT: clear to auscultation [place], symmetrical, unlabored. ABSENT: rales, rhonchi, wheezes Cardiovascular exam: PRESENT: RRR, +S1, +S2, systolic murmur - 2/6 murmur chronic GI/Abdominal exam: PRESENT: normal bowel sounds, soft, tenderness - Near colostomy, other - Colostomy in place. Soft runny brown stool present.. ABSENT : distended, firm Extremities exam: PRESENT: other - Edema in right arm has resolved. Dressing in right axilla without evidence of discharge or drainage.. ABSENT: pedal edema Neurological exam: PRESENT: alert, awake, oriented to person, oriented to place , oriented to situation, CN II-XII grossly intact Psychiatric exam: PRESENT: appropriate affect - Affect reflects his discomfort, normal mood - He is at his baseline. ABSENT: agitated Focused psych exam: ABSENT: restlessness Skin exam: PRESENT: dry, warm, other - I did not examine the right groin/ buttock lesion today. Results Laboratory Results: 06/09/18 05:30 06/08/18 04:02 Impressions: Pelvis CT 05/24/18 07:46 IMPRESSION: No evidence of abscess or osteomyelitis. Guidance Fluoroscopy 05/30/18 00:00 IMPRESSION: SUCCESSFUL PLACEMENT OF A 5 FR DUAL LUMEN 46 CM PICC IN THE LEFT BASILIC VEIN. Interventional Vascular Procedure 05/30/18 00:00 IMPRESSION: SUCCESSFUL PLACEMENT OF A 5 FR DUAL LUMEN 46 CM PICC IN THE LEFT BASILIC VEIN. PICC Line Insertion 05/30/18 00:00 IMPRESSION: SUCCESSFUL PLACEMENT OF A 5 FR DUAL LUMEN 46 CM PICC IN THE LEFT BASILIC VEIN. Assessment & Plan - Diagnosis (1) Cellulitis and abscess of buttock Is this a current diagnosis for this admission?: Yes Plan: Antibiotics and analgesia as above. I did not write for a specific dressing at this time. Having the patient on an absorbent pad is adequate initially. 05/25/2018-as noted above surgery will see the patient. Continue vancomycin and Zosyn for the time being. 05/26/2018-continue vancomycin and Zosyn. Follow serum chemistries as well as C -reactive protein. 05/27/18- Antibiotics as above. Will recheck CRP in 3-4 days. The patient just informed me that he has Hidradeninitis suppuritiva as well. 05/28/2018-continuing antibiotics. This area is in fact his hidradenitis. It is likely he has chronically inflamed tissue with sinus tracts. 05/29/2018-the patient remains on vancomycin and Zosyn. His white blood cell count is coming down slowly. I will recheck a CBC tomorrow. Continue antibiotics at this time. 06/10/2018-Dr. Joy from [facility] infectious disease department did provide consultation. She recommended discontinuing antibiotics. The patient has been off of antibiotics for several days. She feels that his chronically elevated white blood cell count is reactive from chronic inflammation. We will continue to monitor his white blood count and temperature. Surgery is addressing the specific lesion. (2) Axillary abscess Is this a current diagnosis for this admission?: Yes Plan: The patient had a right axillary abscess. He does cause some swelling and discomfort in his right arm. The abscess was incised and drained in the emergency department and packing was placed. We will have surgery monitor this wound as well. 05/25/2018-already on vancomycin and Zosyn. I will remove the [place] wrap from the arm. This should help decrease the swelling in the arm and hopefully decrease some of the discomfort. We will apply a dry sterile gauze secured with paper tape. Surgery will evaluate the patient tomorrow. 05/26/2018-see the consult from surgery. Further surgical intervention this evening. 05/27/18- Appreciate surgical intervention. Dressings ordered. Abx as above. Right arm still swollen. 05/28/2018-patient was seen by surgery today. A Jaun drain was placed. The drain will stay in place. Simple gauze dressings applied and the drain can be removed by surgery next week 05/29/2018-the patient did admit that there is less discomfort in the right axilla. His arm is still slightly puffy. There is no erythema. There is a drain in place. Surgery will remove this in approximately 7-10 days. 06/10/2018-as noted above antibiotics have been discontinued. Conservative care with dressing changes to the right axilla. The patient still complains of discomfort in his right arm but the swelling and erythema in the right extremity has improved significantly. (3) Diabetes mellitus type 2 in nonobese Is this a current diagnosis for this admission?: Yes Plan: The patient will be on his Levemir with a Humalog sliding scale. It is possible that the metformin is contributing to his diarrhea and so I will hold his metformin temporarily. 05/25/2018-I have discontinued the metformin because of the diarrhea. We will continue the Levemir with Humalog sliding scale. The patient does state that he has been on metformin for some time and this has not been a problem. I will still hold it temporarily. 05/26/2018 sugars are actually fairly well controlled with his long-acting insulin and Humalog sliding scale. He is not on the metformin. Because he is going to the ER he will get a reduced dose of Levemir this evening. I also believe the proper diet is helping. 05/27/18- Glucoses surprisingly low. Likely due to poor appetite. Will lower levemir and adjust basrd on Accu-checks. 05/28/2018-good control of sugars at this time. No changes. 05/29/2018-the patient is on a lower dose of Levemir that he takes at home. His appetite has been poor. He is also on sliding scale. His glucoses have been fairly well controlled. 06/10/2018-the patient is on 8 units of Levemir twice daily. He has the sliding scale available. His glucoses have exhibited good control. (4) Chronic pain Qualifiers: Chronic pain type: chronic pain syndrome Qualified Code(s): G89.4 - Chronic pain syndrome Is this a current diagnosis for this admission?: Yes Plan: The patient reported that the regimen he was on was not effective. He is on gabapentin and duloxetine in addition to narcotic analgesia. In addition to the OxyContin 20 mg twice daily I have added medial release 10 mg every 4 hours as needed for pain. He still has 1 mg Dilaudid every 4 hours if needed. 05/26/2018-further information obtained from the patient reveals that he is actually on massive doses of oxycodone. In all he is probably exceeding 200 mg per 24 hours. I have increased his OxyContin to 40 mg every 12 hours and changed his immediate release oxycodone to 20 mg every 4 hours if needed. He also has IV Dilaudid if needed. 05/27/18- Large increase in oxycodaone yesterday/ Will increase gabapentin today. Also discontinued vistaril, ambien and lisinopril (low BP) in an effort to reduce polypharmacy. Consider reducing duloxetine if still somnolent in 3-4 days. 05/28/2018-patient still complains of pain. He wants increased Dilaudid doses. He ignores discussions about ineffectiveness of narcotics after a while. He is on levorphanol all as well. I will look at alternative measures. With his profound weight loss and systemic pain is overall status could be due to underlying bowel disease with associated weight loss. 05/29/2018-ongoing pain. The patient was supposed to bring his levorphanol from home. He has no more pills left. He did state that he stopped taking it at home. In fact he has not received any doses here. (5) Nutrient intake below expected requirement Is this a current diagnosis for this admission?: Yes Plan: 05/26/2018-the patient was seen by the dietitian. Once I feel that his infection is better controlled she has suggested Tm. I did start the multivitamin, vitamin C and zinc supplements. I believe he is also receiving Glucerna. 05/27/18- Continue protein supplements. Multivitamin added as well. 05/28/2018-unfortunately the patient does not drink his protein drinks with meals. His appetite is poor. 05/29/2018-the patient states that his appetite is been poor. He had 3 Glucerna drinks on his bedside tray. Once again I encouraged him to drink these as they are concentrated nutrients that will help him. 06/10/2018-continue to encourage completion of meals. By the nursing notes it does appear that he has completed most of his meals and snacks lately. (6) Hidradenitis suppurativa Is this a current diagnosis for this admission?: Yes Plan: 05/27/18- as above 05/28/2018-unfortunately there is little effective intervention for this condition. We will continue his current treatment plan. 05/29/2018-ongoing pain. The patient is on antibiotics for the axilla. I would like to try sits baths but the patient has not been out of bed since admission. 06/10/2018-unfortunately this is a chronic issue with no "cure ". We will continue his current regimen and treat additional abscesses as they arise. - Time Time Spent with patient: 25-34 minutes Medications reviewed and adjusted accordingly: Yes Anticipated discharge: Home - Discharge planning was checking with the patient' s family for anticipated discharge to home.
[2018-06-10] MEDS: CHOLESTYRAMINE/ASPARTAME 4 GM PACKET PO SCH ×4 (10:30→21:19)
[2018-06-10] MEDS: MULTIVIT-STRESS FORMULA/ZINC TABLET PO SCH (10:41)
[2018-06-10] MEDS: ASCORBIC ACID 500 MG TABLET PO SCH ×2 (10:41→17:40)
[2018-06-10] MEDS: DULOXETINE HCL 30 MG CAPSULE.DR PO SCH ×2 (10:41→17:40)
[2018-06-10] MEDS: ENOXAPARIN SODIUM INJ 40 MG/0.4 ML DISP.SYRIN SUBCUT SCH (10:43)
[2018-06-10] MEDS: NORMAL SALINE 10 ML SDV (SCHEDULED) IV SCH ×2 (10:43→21:18)
[2018-06-10] MEDS: INSULIN DETEMIR 100 UNIT/ML 3 ML PEN SUBCUT SCH ×2 (10:43→22:43)
[2018-06-11] MEDS: OXYCODONE HCL IR 5 MG TABLET PO PRN ×3 (00:29→16:47)
[2018-06-11] MEDS: KETOROLAC TROMETHAMINE INJ/PF 30 MG/1 ML SDV IV PRN ×4 (03:25→21:32)
[2018-06-11] MEDS: OXYCODONE HCL SR 10 MG TABLET PO SCH ×3 (05:00→21:02)
[2018-06-11] MEDS: LANSOPRAZOLE 15 MG TAB.RAP.DR PO SCH (05:00)
[2018-06-11] MEDS: PREGABALIN 100 MG CAPSULE PO SCH ×3 (05:01→21:02)
[2018-06-11] MEDS: PREGABALIN 50 MG CAPSULE PO SCH ×3 (05:01→21:02)
[2018-06-11] MEDS: CLOTRIMAZOLE 1% TOPICAL SOLN 10 ML TP SCH ×3 (05:07→21:03)
[2018-06-11 06:58] LABS: HEMATOCRIT 31.4 % (37.9-51.0); HEMOGLOBIN 10.1 g/dL (13.5-17.0); MEAN CORPUSCULAR HEMOGLOBIN 25.6 pg (27.0-33.4); MEAN CORPUSCULAR HGB CONC 32.2 g/dL (32.0-36.0); MEAN CORPUSCULAR VOLUME 79 fl (80-97); PLATELET COUNT 727 10^3/uL (150-450); RED BLOOD COUNT 3.95 10^6/uL (4.35-5.55); RED CELL DISTRIBUTION WIDTH 17.3 % (11.5-14.0); WHITE BLOOD COUNT 15.8 10^3/uL (4.0-10.5)
[2018-06-11 07:24] LABS: ANION GAP 10 (5-19); BLOOD UREA NITROGEN 22 mg/dL (7-20); C-REACTIVE PROTEIN 49.9 mg/L (<10.0); CALCIUM 8.9 mg/dL (8.4-10.2); CARBON DIOXIDE 30 mmol/L (22-30); CHLORIDE 102 mmol/L (98-107); GLUCOSE 126 mg/dL (75-110); POTASSIUM 5.3 mmol/L (3.6-5.0); SODIUM 141.7 mmol/L (137-145)
[2018-06-11] MEDS: CHOLESTYRAMINE/ASPARTAME 4 GM PACKET PO SCH ×4 (08:31→21:03)
[2018-06-11] MEDS: DULOXETINE HCL 30 MG CAPSULE.DR PO SCH ×2 (09:04→17:36)
[2018-06-11] MEDS: ASCORBIC ACID 500 MG TABLET PO SCH ×2 (09:05→17:36)
[2018-06-11] MEDS: MULTIVIT-STRESS FORMULA/ZINC TABLET PO SCH (09:05)
[2018-06-11] MEDS: ENOXAPARIN SODIUM INJ 40 MG/0.4 ML DISP.SYRIN SUBCUT SCH (09:07)
[2018-06-11] MEDS: INSULIN DETEMIR 100 UNIT/ML 3 ML PEN SUBCUT SCH ×2 (09:07→23:11)
[2018-06-11] MEDS: NORMAL SALINE 10 ML SDV (SCHEDULED) IV SCH ×2 (09:08→21:02)
--- NOTE | 2018-06-11 17:16 | PDOC PROGRESS REPORT ---
Subjective Progress Note for:: 06/11/18 Subjective:: The patient still complains of significant pain. 05/26/2018-the patient was seen by surgery. They will be taken to the OR this evening. He still complains of a lot of pain. He was taking 30 mg of immediate release oxycodone every 4 hours as well as OxyContin. 05/27 Still complaining of severe pain. Sleepy today. Will wake up and immediately complain of pain. Appetite is very poor. 05/28/2018-still complaining of significant pain. Surgery reports that the axillary ulcer is stable. The Jaun drain will stay in place. 05/29/2018-before entering the room the patient appeared comfortable. He had an earbud in and was watching a program on his phone. His left arm was flexed. He appeared quite comfortable. When engaging the patient at the start of the encounter his countenance changed and he reported significant pain. 06/10/2018-the patient is known to this provider. He continues to complain of pain which is a chronic issue for him. He was seen by pain management. He states that therapy is try to get him up but his legs are very weak. June 11, 2018-the patient still is complaining of pain. Even though his pain management physician saw him he reports ineffectiveness of his regimen. He is also complaining about his ostomy output. Reason For Visit: INFECTED BUTTOCK ULCER,ABSCESS RIGHT AXILLA Physical Exam Vital Signs: Temp Pulse Resp BP Pulse Ox 98.2 F 80 16 114/74 100 06/11/18 16:00 06/11/18 16:00 06/11/18 16:00 06/11/18 16:00 06/11/18 16:00 Intake & Output 06/10/18 06/11/18 06/12/18 06:59 06:59 06:59 Intake Total 1174 1440 1418 Output Total 925 1900 850 Balance 249 -460 568 Weight 67.7 kg 67.7 kg General appearance: PRESENT: cooperative, mild distress, thin, well-developed Head exam: PRESENT: atraumatic, normocephalic Respiratory exam: PRESENT: clear to auscultation daija, symmetrical, unlabored. ABSENT: rales, rhonchi, wheezes Cardiovascular exam: PRESENT: RRR, +S1, +S2 GI/Abdominal exam: PRESENT: normal bowel sounds, soft, tenderness - Around the mid abdomen. ABSENT: distended, guarding Rectal exam: PRESENT: other - Loose brown stool in the ostomy bag Musculoskeletal exam: PRESENT: normal inspection - Decreased muscle mass Neurological exam: PRESENT: alert, awake, oriented to person, oriented to place , oriented to time, oriented to situation, CN II-XII grossly intact Psychiatric exam: PRESENT: appropriate affect, normal mood. ABSENT: agitated, anxious Focused psych exam: ABSENT: restlessness Results Laboratory Results: 06/11/18 05:00 06/11/18 05:00 06/11/18 06/11/18 05:00 05:00 WBC 15.8 H RBC 3.95 L Hgb 10.1 L Hct 31.4 L MCV 79 L MCH 25.6 L MCHC 32.2 RDW 17.3 H Plt Count 727 H Sodium 141.7 Potassium 5.3 H Chloride 102 Carbon Dioxide 30 Anion Gap 10 BUN 22 H Creatinine 0.90 Est GFR ( Amer) > 60 Est GFR (Non-Af Amer) > 60 Glucose 126 H Calcium 8.9 C-Reactive Protein 49.9 H Impressions: Pelvis CT 05/24/18 07:46 IMPRESSION: No evidence of abscess or osteomyelitis. Guidance Fluoroscopy 05/30/18 00:00 IMPRESSION: SUCCESSFUL PLACEMENT OF A 5 FR DUAL LUMEN 46 CM PICC IN THE LEFT BASILIC VEIN. Interventional Vascular Procedure 05/30/18 00:00 IMPRESSION: SUCCESSFUL PLACEMENT OF A 5 FR DUAL LUMEN 46 CM PICC IN THE LEFT BASILIC VEIN. PICC Line Insertion 05/30/18 00:00 IMPRESSION: SUCCESSFUL PLACEMENT OF A 5 FR DUAL LUMEN 46 CM PICC IN THE LEFT BASILIC VEIN. Assessment & Plan - Diagnosis (1) Cellulitis and abscess of buttock Is this a current diagnosis for this admission?: Yes Plan: Antibiotics and analgesia as above. I did not write for a specific dressing at this time. Having the patient on an absorbent pad is adequate initially. 05/25/2018-as noted above surgery will see the patient. Continue vancomycin and Zosyn for the time being. 05/26/2018-continue vancomycin and Zosyn. Follow serum chemistries as well as C -reactive protein. 05/27/18- Antibiotics as above. Will recheck CRP in 3-4 days. The patient just informed me that he has Hidradeninitis suppuritiva as well. 05/28/2018-continuing antibiotics. This area is in fact his hidradenitis. It is likely he has chronically inflamed tissue with sinus tracts. 05/29/2018-the patient remains on vancomycin and Zosyn. His white blood cell count is coming down slowly. I will recheck a CBC tomorrow. Continue antibiotics at this time. 06/10/2018-Dr. Jyo from [facility] infectious disease department did provide consultation. She recommended discontinuing antibiotics. The patient has been off of antibiotics for several days. She feels that his chronically elevated white blood cell count is reactive from chronic inflammation. We will continue to monitor his white blood count and temperature. Surgery is addressing the specific lesion. June 11, 2018-his white count is increased again. I have ordered a urine culture. We will also check a chest x-ray and blood cultures. (2) Axillary abscess Is this a current diagnosis for this admission?: Yes Plan: The patient had a right axillary abscess. He does cause some swelling and discomfort in his right arm. The abscess was incised and drained in the emergency department and packing was placed. We will have surgery monitor this wound as well. 05/25/2018-already on vancomycin and Zosyn. I will remove the Coban wrap from the arm. This should help decrease the swelling in the arm and hopefully decrease some of the discomfort. We will apply a dry sterile gauze secured with paper tape. Surgery will evaluate the patient tomorrow. 05/26/2018-see the consult from surgery. Further surgical intervention this evening. 05/27/18- Appreciate surgical intervention. Dressings ordered. Abx as above. Right arm still swollen. 05/28/2018-patient was seen by surgery today. A Jaun drain was placed. The drain will stay in place. Simple gauze dressings applied and the drain can be removed by surgery next week 05/29/2018-the patient did admit that there is less discomfort in the right axilla. His arm is still slightly puffy. There is no erythema. There is a drain in place. Surgery will remove this in approximately 7-10 days. 06/10/2018-as noted above antibiotics have been discontinued. Conservative care with dressing changes to the right axilla. The patient still complains of discomfort in his right arm but the swelling and erythema in the right extremity has improved significantly. June 11, 2018-continue current dressings. White blood cell count is still increasing. See above. (3) Diabetes mellitus type 2 in nonobese Is this a current diagnosis for this admission?: Yes Plan: The patient will be on his Levemir with a Humalog sliding scale. It is possible that the metformin is contributing to his diarrhea and so I will hold his metformin temporarily. 05/25/2018-I have discontinued the metformin because of the diarrhea. We will continue the Levemir with Humalog sliding scale. The patient does state that he has been on metformin for some time and this has not been a problem. I will still hold it temporarily. 05/26/2018 sugars are actually fairly well controlled with his long-acting insulin and Humalog sliding scale. He is not on the metformin. Because he is going to the ER he will get a reduced dose of Levemir this evening. I also believe the proper diet is helping. 05/27/18- Glucoses surprisingly low. Likely due to poor appetite. Will lower levemir and adjust basrd on Accu-checks. 05/28/2018-good control of sugars at this time. No changes. 05/29/2018-the patient is on a lower dose of Levemir that he takes at home. His appetite has been poor. He is also on sliding scale. His glucoses have been fairly well controlled. 06/10/2018-the patient is on 8 units of Levemir twice daily. He has the sliding scale available. His glucoses have exhibited good control. June 11, 2018-no change in current regimen (4) Chronic pain Qualifiers: Chronic pain type: chronic pain syndrome Qualified Code(s): G89.4 - Chronic pain syndrome Is this a current diagnosis for this admission?: Yes Plan: The patient reported that the regimen he was on was not effective. He is on gabapentin and duloxetine in addition to narcotic analgesia. In addition to the OxyContin 20 mg twice daily I have added medial release 10 mg every 4 hours as needed for pain. He still has 1 mg Dilaudid every 4 hours if needed. 05/26/2018-further information obtained from the patient reveals that he is actually on massive doses of oxycodone. In all he is probably exceeding 200 mg per 24 hours. I have increased his OxyContin to 40 mg every 12 hours and changed his immediate release oxycodone to 20 mg every 4 hours if needed. He also has IV Dilaudid if needed. 05/27/18- Large increase in oxycodaone yesterday/ Will increase gabapentin today. Also discontinued vistaril, ambien and lisinopril (low BP) in an effort to reduce polypharmacy. Consider reducing duloxetine if still somnolent in 3-4 days. 05/28/2018-patient still complains of pain. He wants increased Dilaudid doses. He ignores discussions about ineffectiveness of narcotics after a while. He is on levorphanol all as well. I will look at alternative measures. With his profound weight loss and systemic pain is overall status could be due to underlying bowel disease with associated weight loss. 05/29/2018-ongoing pain. The patient was supposed to bring his levorphanol from home. He has no more pills left. He did state that he stopped taking it at home. In fact he has not received any doses here. June 11, 2018-the patient was seen by pain management. They have a new regimen that I am not going to change. He will follow-up with pain management post discharge. (5) Nutrient intake below expected requirement Is this a current diagnosis for this admission?: Yes Plan: 05/26/2018-the patient was seen by the dietitian. Once I feel that his infection is better controlled she has suggested Mt. I did start the multivitamin, vitamin C and zinc supplements. I believe he is also receiving Glucerna. 05/27/18- Continue protein supplements. Multivitamin added as well. 05/28/2018-unfortunately the patient does not drink his protein drinks with meals. His appetite is poor. 05/29/2018-the patient states that his appetite is been poor. He had 3 Glucerna drinks on his bedside tray. Once again I encouraged him to drink these as they are concentrated nutrients that will help him. 06/10/2018-continue to encourage completion of meals. By the nursing notes it does appear that he has completed most of his meals and snacks lately. June 11, 2018-reports that his appetite varies. We continue to encourage his supplements as well. (6) Hidradenitis suppurativa Is this a current diagnosis for this admission?: Yes Plan: 05/27/18- as above 05/28/2018-unfortunately there is little effective intervention for this condition. We will continue his current treatment plan. 05/29/2018-ongoing pain. The patient is on antibiotics for the axilla. I would like to try sits baths but the patient has not been out of bed since admission. 06/10/2018-unfortunately this is a chronic issue with no "cure ". We will continue his current regimen and treat additional abscesses as they arise. June 11, 2018-as above. No changes. - Time Time Spent with patient: 25-34 minutes Medications reviewed and adjusted accordingly: Yes
[2018-06-11] MEDS: LOPERAMIDE HCL 2 MG CAPSULE PO SCH (17:38)
--- NOTE | 2018-06-11 18:12 | RADIOLOGY REPORT (SQ) ---
EXAM DESCRIPTION: CHEST SINGLE VIEW COMPLETED DATE/TIME: 06/11/2018 5:41 pm REASON FOR STUDY: increased white count COMPARISON: 05/30/2018 and earlier EXAM PARAMETERS: NUMBER OF VIEWS: One view. TECHNIQUE: Single frontal radiographic view of the chest acquired. RADIATION DOSE: NA LIMITATIONS: None. FINDINGS: LUNGS AND PLEURA: No opacities, masses or pneumothorax. No pleural effusion. MEDIASTINUM AND HILAR STRUCTURES: No masses. Contour normal. HEART AND VASCULAR STRUCTURES: Heart normal in size. Normal vasculature. BONES: No acute findings. HARDWARE: Left-sided PICC line tip terminates in the expected region the cavoatrial junction. OTHER: No other significant finding. IMPRESSION: No focal airspace disease. TECHNICAL DOCUMENTATION: JOB ID: [id number] [employer]- All Rights Reserved Reading location - IP/workstation name: [email or web address]
[2018-06-11 18:49] LABS: APPEARANCE,URINE SLIGHTLY-CLOUDY; BILIRUBIN,URINE NEGATIVE (NEGATIVE); COLOR,URINE YELLOW; GLUCOSE, URINE NEGATIVE (NEGATIVE); KETONES,URINE NEGATIVE (NEGATIVE); LEUKOCYTE ESTERASE,URINE SMALL (NEGATIVE); NITRITE,URINE NEGATIVE (NEGATIVE); PROTEIN,URINE NEGATIVE (NEGATIVE); URINE SPECIFIC GRAVITY 1.016; UROBILINOGEN,URINE NEGATIVE mg/dL (<2.0)
[2018-06-12] MEDS: LOPERAMIDE HCL 2 MG CAPSULE PO SCH ×4 (00:05→17:51)
[2018-06-12] MEDS: OXYCODONE HCL IR 5 MG TABLET PO PRN ×3 (00:37→16:52)
[2018-06-12] MEDS: KETOROLAC TROMETHAMINE INJ/PF 30 MG/1 ML SDV IV PRN ×4 (03:35→23:26)
[2018-06-12] MEDS: OXYCODONE HCL SR 10 MG TABLET PO SCH ×3 (05:03→21:52)
[2018-06-12] MEDS: LANSOPRAZOLE 15 MG TAB.RAP.DR PO SCH (05:05)
[2018-06-12] MEDS: PREGABALIN 100 MG CAPSULE PO SCH ×3 (05:05→21:51)
[2018-06-12] MEDS: CLOTRIMAZOLE 1% TOPICAL SOLN 10 ML TP SCH ×3 (05:05→21:52)
[2018-06-12] MEDS: PREGABALIN 50 MG CAPSULE PO SCH ×3 (05:05→21:51)
[2018-06-12 05:30] LABS: HEMATOCRIT 31.2 % (37.9-51.0); HEMOGLOBIN 10.3 g/dL (13.5-17.0); MEAN CORPUSCULAR HGB CONC 32.9 g/dL (32.0-36.0); MEAN CORPUSCULAR VOLUME 79 fl (80-97); PLATELET COUNT 665 10^3/uL (150-450); RED BLOOD COUNT 3.95 10^6/uL (4.35-5.55); RED CELL DISTRIBUTION WIDTH 17.4 % (11.5-14.0); WHITE BLOOD COUNT 17.7 10^3/uL (4.0-10.5)
[2018-06-12 06:00] LABS: ALANINE AMINOTRANSFERASE 109 U/L (21-72); ALKALINE PHOSPHATASE 538 U/L (38-126); ANION GAP 10 (5-19); ASPARTATE AMINO TRANSFERASE 121 U/L (17-59); BILIRUBIN,DIRECT 0.3 mg/dL (0.0-0.4); BILIRUBIN,TOTAL 0.3 mg/dL (0.2-1.3); BLOOD UREA NITROGEN 22 mg/dL (7-20); CALCIUM 9.1 mg/dL (8.4-10.2); CARBON DIOXIDE 28 mmol/L (22-30); CHLORIDE 103 mmol/L (98-107); GLUCOSE 143 mg/dL (75-110); POTASSIUM 4.8 mmol/L (3.6-5.0); TOTAL PROTEIN 7.3 g/dL (6.3-8.2)
[2018-06-12] MEDS: CHOLESTYRAMINE/ASPARTAME 4 GM PACKET PO SCH ×4 (08:40→21:04)
[2018-06-12] MEDS: ASCORBIC ACID 500 MG TABLET PO SCH ×2 (10:22→17:51)
[2018-06-12] MEDS: DULOXETINE HCL 30 MG CAPSULE.DR PO SCH ×2 (10:22→17:51)
[2018-06-12] MEDS: MULTIVIT-STRESS FORMULA/ZINC TABLET PO SCH (10:22)
[2018-06-12] MEDS: INSULIN DETEMIR 100 UNIT/ML 3 ML PEN SUBCUT SCH ×2 (11:26→21:04)
[2018-06-12] MEDS: ENOXAPARIN SODIUM INJ 40 MG/0.4 ML DISP.SYRIN SUBCUT SCH (11:26)
[2018-06-12] MEDS: NORMAL SALINE 10 ML SDV (SCHEDULED) IV SCH ×2 (11:27→21:52)
[2018-06-12] MEDS ORDERED: SIMETHICONE 80 MG TAB.CHEW PO PRN (17:11)
--- NOTE | 2018-06-12 22:04 | PDOC PROGRESS REPORT ---
Subjective Progress Note for:: 06/12/18 Subjective:: The patient still complains of significant pain. 05/26/2018-the patient was seen by surgery. They will be taken to the OR this evening. He still complains of a lot of pain. He was taking 30 mg of immediate release oxycodone every 4 hours as well as OxyContin. 05/27 Still complaining of severe pain. Sleepy today. Will wake up and immediately complain of pain. Appetite is very poor. 05/28/2018-still complaining of significant pain. Surgery reports that the axillary ulcer is stable. The Jaun drain will stay in place. 05/29/2018-before entering the room the patient appeared comfortable. He had an earbud in and was watching a program on his phone. His left arm was flexed. He appeared quite comfortable. When engaging the patient at the start of the encounter his countenance changed and he reported significant pain. 06/10/2018-the patient is known to this provider. He continues to complain of pain which is a chronic issue for him. He was seen by pain management. He states that therapy is try to get him up but his legs are very weak. June 11, 2018-the patient still is complaining of pain. Even though his pain management physician saw him he reports ineffectiveness of his regimen. He is also complaining about his ostomy output. 06/12/2018-still complaining of pain. She reports that the stool seems to be thickening but he still feels bloated. He still has lots of air in the colostomy bag. Reason For Visit: INFECTED BUTTOCK ULCER,ABSCESS RIGHT AXILLA Physical Exam Vital Signs: Temp Pulse Resp BP Pulse Ox 98.5 F 82 17 99/64 L 98 06/12/18 20:13 06/12/18 20:13 06/12/18 20:13 06/12/18 20:13 06/12/18 20:13 Intake & Output 06/11/18 06/12/18 06/13/18 06:59 06:59 06:59 Intake Total 1440 2290 1300 Output Total 1900 1500 750 Balance -460 790 550 Weight 67.7 kg 57.7 kg General appearance: PRESENT: cooperative, mild distress, thin, well-developed Head exam: PRESENT: atraumatic, normocephalic Mouth exam: PRESENT: moist, tongue midline Respiratory exam: PRESENT: clear to auscultation daija, symmetrical, unlabored. ABSENT: rales, rhonchi, wheezes Cardiovascular exam: PRESENT: RRR, +S1, +S2 GI/Abdominal exam: PRESENT: normal bowel sounds, soft, tenderness - Around the colostomy. ABSENT: distended, guarding Rectal exam: PRESENT: other - Brown stool in the colostomy bag. Still very soft consistency. Musculoskeletal exam: PRESENT: other - Decreased muscle mass Neurological exam: PRESENT: alert, awake, oriented to person, oriented to place , oriented to time, oriented to situation, CN II-XII grossly intact Psychiatric exam: PRESENT: flat affect. ABSENT: agitated, anxious Results Laboratory Results: 06/12/18 05:20 06/12/18 05:20 06/12/18 06/12/18 05:20 05:20 WBC 17.7 H RBC 3.95 L Hgb 10.3 L Hct 31.2 L MCV 79 L MCH 26.0 L MCHC 32.9 RDW 17.4 H Plt Count 665 H Sodium 141.0 Potassium 4.8 Chloride 103 Carbon Dioxide 28 Anion Gap 10 BUN 22 H Creatinine 0.75 Est GFR ( Amer) > 60 Est GFR (Non-Af Amer) > 60 Glucose 143 H Calcium 9.1 Total Bilirubin 0.3 AST 121 H ALT 109 H Alkaline Phosphatase 538 H Total Protein 7.3 Albumin 3.0 L Impressions: Pelvis CT 05/24/18 07:46 IMPRESSION: No evidence of abscess or osteomyelitis. Guidance Fluoroscopy 05/30/18 00:00 IMPRESSION: SUCCESSFUL PLACEMENT OF A 5 FR DUAL LUMEN 46 CM PICC IN THE LEFT BASILIC VEIN. Interventional Vascular Procedure 05/30/18 00:00 IMPRESSION: SUCCESSFUL PLACEMENT OF A 5 FR DUAL LUMEN 46 CM PICC IN THE LEFT BASILIC VEIN. PICC Line Insertion 05/30/18 00:00 IMPRESSION: SUCCESSFUL PLACEMENT OF A 5 FR DUAL LUMEN 46 CM PICC IN THE LEFT BASILIC VEIN. Chest X-Ray 06/11/18 17:40 IMPRESSION: No focal airspace disease. Assessment & Plan - Diagnosis (1) Cellulitis and abscess of buttock Is this a current diagnosis for this admission?: Yes Plan: Antibiotics and analgesia as above. I did not write for a specific dressing at this time. Having the patient on an absorbent pad is adequate initially. 05/25/2018-as noted above surgery will see the patient. Continue vancomycin and Zosyn for the time being. 05/26/2018-continue vancomycin and Zosyn. Follow serum chemistries as well as C -reactive protein. 05/27/18- Antibiotics as above. Will recheck CRP in 3-4 days. The patient just informed me that he has Hidradeninitis suppuritiva as well. 05/28/2018-continuing antibiotics. This area is in fact his hidradenitis. It is likely he has chronically inflamed tissue with sinus tracts. 05/29/2018-the patient remains on vancomycin and Zosyn. His white blood cell count is coming down slowly. I will recheck a CBC tomorrow. Continue antibiotics at this time. 06/10/2018-Dr. Joy from [facility] infectious disease department did provide consultation. She recommended discontinuing antibiotics. The patient has been off of antibiotics for several days. She feels that his chronically elevated white blood cell count is reactive from chronic inflammation. We will continue to monitor his white blood count and temperature. Surgery is addressing the specific lesion. June 11, 2018-his white count is increased again. I have ordered a urine culture. We will also check a chest x-ray and blood cultures. 06/12/2018-chest x-ray is negative, blood cultures and urine culture are no growth so far. (2) Axillary abscess Is this a current diagnosis for this admission?: Yes Plan: The patient had a right axillary abscess. He does cause some swelling and discomfort in his right arm. The abscess was incised and drained in the emergency department and packing was placed. We will have surgery monitor this wound as well. 05/25/2018-already on vancomycin and Zosyn. I will remove the Coban wrap from the arm. This should help decrease the swelling in the arm and hopefully decrease some of the discomfort. We will apply a dry sterile gauze secured with paper tape. Surgery will evaluate the patient tomorrow. 05/26/2018-see the consult from surgery. Further surgical intervention this evening. 05/27/18- Appreciate surgical intervention. Dressings ordered. Abx as above. Right arm still swollen. 05/28/2018-patient was seen by surgery today. A [place] drain was placed. The drain will stay in place. Simple gauze dressings applied and the drain can be removed by surgery next week 05/29/2018-the patient did admit that there is less discomfort in the right axilla. His arm is still slightly puffy. There is no erythema. There is a drain in place. Surgery will remove this in approximately 7-10 days. 06/10/2018-as noted above antibiotics have been discontinued. Conservative care with dressing changes to the right axilla. The patient still complains of discomfort in his right arm but the swelling and erythema in the right extremity has improved significantly. June 11, 2018-continue current dressings. White blood cell count is still increasing. See above. 06/12/2018-continue current dressing changes. (3) Diabetes mellitus type 2 in nonobese Is this a current diagnosis for this admission?: Yes Plan: The patient will be on his Levemir with a Humalog sliding scale. It is possible that the metformin is contributing to his diarrhea and so I will hold his metformin temporarily. 05/25/2018-I have discontinued the metformin because of the diarrhea. We will continue the Levemir with Humalog sliding scale. The patient does state that he has been on metformin for some time and this has not been a problem. I will still hold it temporarily. 05/26/2018 sugars are actually fairly well controlled with his long-acting insulin and Humalog sliding scale. He is not on the metformin. Because he is going to the ER he will get a reduced dose of Levemir this evening. I also believe the proper diet is helping. 05/27/18- Glucoses surprisingly low. Likely due to poor appetite. Will lower levemir and adjust basrd on Accu-checks. 05/28/2018-good control of sugars at this time. No changes. 05/29/2018-the patient is on a lower dose of Levemir that he takes at home. His appetite has been poor. He is also on sliding scale. His glucoses have been fairly well controlled. 06/10/2018-the patient is on 8 units of Levemir twice daily. He has the sliding scale available. His glucoses have exhibited good control. June 11, 2018-no change in current regimen 06/12/2018-continue current regimen (4) Chronic pain Qualifiers: Chronic pain type: chronic pain syndrome Qualified Code(s): G89.4 - Chronic pain syndrome Is this a current diagnosis for this admission?: Yes Plan: The patient reported that the regimen he was on was not effective. He is on gabapentin and duloxetine in addition to narcotic analgesia. In addition to the OxyContin 20 mg twice daily I have added medial release 10 mg every 4 hours as needed for pain. He still has 1 mg Dilaudid every 4 hours if needed. 05/26/2018-further information obtained from the patient reveals that he is actually on massive doses of oxycodone. In all he is probably exceeding 200 mg per 24 hours. I have increased his OxyContin to 40 mg every 12 hours and changed his immediate release oxycodone to 20 mg every 4 hours if needed. He also has IV Dilaudid if needed. 05/27/18- Large increase in oxycodaone yesterday/ Will increase gabapentin today. Also discontinued vistaril, ambien and lisinopril (low BP) in an effort to reduce polypharmacy. Consider reducing duloxetine if still somnolent in 3-4 days. 05/28/2018-patient still complains of pain. He wants increased Dilaudid doses. He ignores discussions about ineffectiveness of narcotics after a while. He is on levorphanol all as well. I will look at alternative measures. With his profound weight loss and systemic pain is overall status could be due to underlying bowel disease with associated weight loss. 05/29/2018-ongoing pain. The patient was supposed to bring his levorphanol from home. He has no more pills left. He did state that he stopped taking it at home. In fact he has not received any doses here. June 11, 2018-the patient was seen by pain management. They have a new regimen that I am not going to change. He will follow-up with pain management post discharge. 06/12/2018-as noted above, per the recommendations of his pain management consult , no anticipated changes in his pain medication regimen. (5) Nutrient intake below expected requirement Is this a current diagnosis for this admission?: Yes Plan: 05/26/2018-the patient was seen by the dietitian. Once I feel that his infection is better controlled she has suggested [place]. I did start the multivitamin, vitamin C and zinc supplements. I believe he is also receiving Glucerna. 05/27/18- Continue protein supplements. Multivitamin added as well. 05/28/2018-unfortunately the patient does not drink his protein drinks with meals. His appetite is poor. 05/29/2018-the patient states that his appetite is been poor. He had 3 Glucerna drinks on his bedside tray. Once again I encouraged him to drink these as they are concentrated nutrients that will help him. 06/10/2018-continue to encourage completion of meals. By the nursing notes it does appear that he has completed most of his meals and snacks lately. June 11, 2018-reports that his appetite varies. We continue to encourage his supplements as well. 06/12/2018-there are still multiple supplement drink boxes untouched. (6) Hidradenitis suppurativa Is this a current diagnosis for this admission?: Yes Plan: 05/27/18- as above 05/28/2018-unfortunately there is little effective intervention for this condition. We will continue his current treatment plan. 05/29/2018-ongoing pain. The patient is on antibiotics for the axilla. I would like to try sits baths but the patient has not been out of bed since admission. 06/10/2018-unfortunately this is a chronic issue with no "cure ". We will continue his current regimen and treat additional abscesses as they arise. June 11, 2018-as above. No changes. 06/12/2018-chronic condition. - Time Time Spent with patient: 15-24 minutes Medications reviewed and adjusted accordingly: Yes
[2018-06-13] MEDS: OXYCODONE HCL IR 5 MG TABLET PO PRN ×3 (01:01→17:47)
[2018-06-13] MEDS: OXYCODONE HCL SR 10 MG TABLET PO SCH ×3 (05:55→21:37)
[2018-06-13] MEDS: PREGABALIN 100 MG CAPSULE PO SCH ×3 (05:55→21:37)
[2018-06-13] MEDS: PREGABALIN 50 MG CAPSULE PO SCH ×3 (05:55→21:37)
[2018-06-13] MEDS: LANSOPRAZOLE 15 MG TAB.RAP.DR PO SCH (05:55)
[2018-06-13] MEDS: CLOTRIMAZOLE 1% TOPICAL SOLN 10 ML TP SCH ×3 (05:56→21:32)
[2018-06-13] MEDS: LOPERAMIDE HCL 2 MG CAPSULE PO SCH ×2 (05:56→17:47)
[2018-06-13] MEDS: KETOROLAC TROMETHAMINE INJ/PF 30 MG/1 ML SDV IV PRN ×3 (05:57→22:50)
[2018-06-13] MEDS: CHOLESTYRAMINE/ASPARTAME 4 GM PACKET PO SCH ×4 (08:18→21:33)
[2018-06-13] MEDS: INSULIN DETEMIR 100 UNIT/ML 3 ML PEN SUBCUT SCH ×2 (09:19→21:32)
[2018-06-13] MEDS: MULTIVIT-STRESS FORMULA/ZINC TABLET PO SCH (09:20)
[2018-06-13] MEDS: DULOXETINE HCL 30 MG CAPSULE.DR PO SCH ×2 (09:21→17:47)
[2018-06-13] MEDS: ASCORBIC ACID 500 MG TABLET PO SCH ×2 (09:21→17:48)
[2018-06-13] MEDS: ENOXAPARIN SODIUM INJ 40 MG/0.4 ML DISP.SYRIN SUBCUT SCH (09:21)
[2018-06-13] MEDS: NORMAL SALINE 10 ML SDV (SCHEDULED) IV SCH ×2 (09:22→21:38)
--- NOTE | 2018-06-13 21:06 | PDOC PROGRESS REPORT ---
Subjective Progress Note for:: 06/13/18 Subjective:: The patient still complains of significant pain. 05/26/2018-the patient was seen by surgery. They will be taken to the OR this evening. He still complains of a lot of pain. He was taking 30 mg of immediate release oxycodone every 4 hours as well as OxyContin. 05/27 Still complaining of severe pain. Sleepy today. Will wake up and immediately complain of pain. Appetite is very poor. 05/28/2018-still complaining of significant pain. Surgery reports that the axillary ulcer is stable. The Jaun drain will stay in place. 05/29/2018-before entering the room the patient appeared comfortable. He had an earbud in and was watching a program on his phone. His left arm was flexed. He appeared quite comfortable. When engaging the patient at the start of the encounter his countenance changed and he reported significant pain. 06/10/2018-the patient is known to this provider. He continues to complain of pain which is a chronic issue for him. He was seen by pain management. He states that therapy is try to get him up but his legs are very weak. June 11, 2018-the patient still is complaining of pain. Even though his pain management physician saw him he reports ineffectiveness of his regimen. He is also complaining about his ostomy output. 06/12/2018-still complaining of pain. She reports that the stool seems to be thickening but he still feels bloated. He still has lots of air in the colostomy bag. 06/13/2018-again the patient is complaining of pain. There is a noticeable foul odor and increased drainage with bleeding from his coccyx and buttock ulcers. Reason For Visit: INFECTED BUTTOCK ULCER,ABSCESS RIGHT AXILLA Physical Exam Vital Signs: Temp Pulse Resp BP Pulse Ox 98.3 F 86 17 124/72 98 06/13/18 20:29 06/13/18 20:29 06/13/18 20:29 06/13/18 20:29 06/13/18 20:29 Intake & Output 06/12/18 06/13/18 06/14/18 06:59 06:59 06:59 Intake Total 2290 2400 472 Output Total 1500 1850 700 Balance 790 550 -228 Weight 57.7 kg 67.7 kg General appearance: PRESENT: cooperative, mild distress, thin Respiratory exam: PRESENT: clear to auscultation daija, symmetrical, unlabored. ABSENT: rales, rhonchi, wheezes Cardiovascular exam: PRESENT: RRR, +S1, +S2 GI/Abdominal exam: PRESENT: normal bowel sounds, soft, tenderness, other. ABSENT: distended Neurological exam: PRESENT: alert, awake, oriented to person, oriented to place , oriented to time, oriented to situation Psychiatric exam: PRESENT: appropriate affect Skin exam: PRESENT: other - Adhesive border from dressings on the coccyx area and ischial area. Chux pads are blood-tinged. There is increased drainage noted on the dressings. New is a extremely foul odor emanating from the wounds. Results Laboratory Results: 06/12/18 05:20 06/12/18 05:20 06/11/18 18:27 Clean Catch Midstream Urine Culture - Final C.albicans/C.dubliniensis Impressions: Pelvis CT 05/24/18 07:46 IMPRESSION: No evidence of abscess or osteomyelitis. Guidance Fluoroscopy 05/30/18 00:00 IMPRESSION: SUCCESSFUL PLACEMENT OF A 5 FR DUAL LUMEN 46 CM PICC IN THE LEFT BASILIC VEIN. Interventional Vascular Procedure 05/30/18 00:00 IMPRESSION: SUCCESSFUL PLACEMENT OF A 5 FR DUAL LUMEN 46 CM PICC IN THE LEFT BASILIC VEIN. PICC Line Insertion 05/30/18 00:00 IMPRESSION: SUCCESSFUL PLACEMENT OF A 5 FR DUAL LUMEN 46 CM PICC IN THE LEFT BASILIC VEIN. Chest X-Ray 06/11/18 17:40 IMPRESSION: No focal airspace disease. Assessment & Plan - Diagnosis (1) Cellulitis and abscess of buttock Is this a current diagnosis for this admission?: Yes Plan: Antibiotics and analgesia as above. I did not write for a specific dressing at this time. Having the patient on an absorbent pad is adequate initially. 05/25/2018-as noted above surgery will see the patient. Continue vancomycin and Zosyn for the time being. 05/26/2018-continue vancomycin and Zosyn. Follow serum chemistries as well as C -reactive protein. 05/27/18- Antibiotics as above. Will recheck CRP in 3-4 days. The patient just informed me that he has Hidradeninitis suppuritiva as well. 05/28/2018-continuing antibiotics. This area is in fact his hidradenitis. It is likely he has chronically inflamed tissue with sinus tracts. 05/29/2018-the patient remains on vancomycin and Zosyn. His white blood cell count is coming down slowly. I will recheck a CBC tomorrow. Continue antibiotics at this time. 06/10/2018-Dr. Joy from [facility] infectious disease department did provide consultation. She recommended discontinuing antibiotics. The patient has been off of antibiotics for several days. She feels that his chronically elevated white blood cell count is reactive from chronic inflammation. We will continue to monitor his white blood count and temperature. Surgery is addressing the specific lesion. June 11, 2018-his white count is increased again. I have ordered a urine culture. We will also check a chest x-ray and blood cultures. 06/12/2018-chest x-ray is negative, blood cultures and urine culture are no growth so far. 06/13/2018-the patient's white blood cell count has been going up. In addition there is an increasing foul odor from the wounds. There could be an anaerobic component. Final culture results reveal Proteus, the somewhat resistant E. coli and enterococcus. These would classically be identified with fecal contamination however the patient does have a colostomy. I am rechecking white blood cell count tomorrow. If it continues to be elevated I will discuss with infectious diseases. He will likely need additional antibiotic therapy with broad enough spectrum to cover possible anaerobic presence. (2) Axillary abscess Is this a current diagnosis for this admission?: Yes Plan: The patient had a right axillary abscess. He does cause some swelling and discomfort in his right arm. The abscess was incised and drained in the emergency department and packing was placed. We will have surgery monitor this wound as well. 05/25/2018-already on vancomycin and Zosyn. I will remove the Coban wrap from the arm. This should help decrease the swelling in the arm and hopefully decrease some of the discomfort. We will apply a dry sterile gauze secured with paper tape. Surgery will evaluate the patient tomorrow. 05/26/2018-see the consult from surgery. Further surgical intervention this evening. 05/27/18- Appreciate surgical intervention. Dressings ordered. Abx as above. Right arm still swollen. 05/28/2018-patient was seen by surgery today. A Jaun drain was placed. The drain will stay in place. Simple gauze dressings applied and the drain can be removed by surgery next week 05/29/2018-the patient did admit that there is less discomfort in the right axilla. His arm is still slightly puffy. There is no erythema. There is a drain in place. Surgery will remove this in approximately 7-10 days. 06/10/2018-as noted above antibiotics have been discontinued. Conservative care with dressing changes to the right axilla. The patient still complains of discomfort in his right arm but the swelling and erythema in the right extremity has improved significantly. June 11, 2018-continue current dressings. White blood cell count is still increasing. See above. 06/12/2018-continue current dressing changes. 06/13/2018-reportedly quite painful by the patient. Healing is ongoing. (3) Diabetes mellitus type 2 in nonobese Is this a current diagnosis for this admission?: Yes Plan: The patient will be on his Levemir with a Humalog sliding scale. It is possible that the metformin is contributing to his diarrhea and so I will hold his metformin temporarily. 05/25/2018-I have discontinued the metformin because of the diarrhea. We will continue the Levemir with Humalog sliding scale. The patient does state that he has been on metformin for some time and this has not been a problem. I will still hold it temporarily. 05/26/2018 sugars are actually fairly well controlled with his long-acting insulin and Humalog sliding scale. He is not on the metformin. Because he is going to the ER he will get a reduced dose of Levemir this evening. I also believe the proper diet is helping. 05/27/18- Glucoses surprisingly low. Likely due to poor appetite. Will lower levemir and adjust basrd on Accu-checks. 05/28/2018-good control of sugars at this time. No changes. 05/29/2018-the patient is on a lower dose of Levemir that he takes at home. His appetite has been poor. He is also on sliding scale. His glucoses have been fairly well controlled. 06/10/2018-the patient is on 8 units of Levemir twice daily. He has the sliding scale available. His glucoses have exhibited good control. June 11, 2018-no change in current regimen 06/12/2018-continue current regimen 06/13/2018-good glucose control on current regimen. No changes. (4) Chronic pain Qualifiers: Chronic pain type: chronic pain syndrome Qualified Code(s): G89.4 - Chronic pain syndrome Is this a current diagnosis for this admission?: Yes Plan: The patient reported that the regimen he was on was not effective. He is on gabapentin and duloxetine in addition to narcotic analgesia. In addition to the OxyContin 20 mg twice daily I have added medial release 10 mg every 4 hours as needed for pain. He still has 1 mg Dilaudid every 4 hours if needed. 05/26/2018-further information obtained from the patient reveals that he is actually on massive doses of oxycodone. In all he is probably exceeding 200 mg per 24 hours. I have increased his OxyContin to 40 mg every 12 hours and changed his immediate release oxycodone to 20 mg every 4 hours if needed. He also has IV Dilaudid if needed. 05/27/18- Large increase in oxycodaone yesterday/ Will increase gabapentin today. Also discontinued vistaril, ambien and lisinopril (low BP) in an effort to reduce polypharmacy. Consider reducing duloxetine if still somnolent in 3-4 days. 05/28/2018-patient still complains of pain. He wants increased Dilaudid doses. He ignores discussions about ineffectiveness of narcotics after a while. He is on levorphanol all as well. I will look at alternative measures. With his profound weight loss and systemic pain is overall status could be due to underlying bowel disease with associated weight loss. 05/29/2018-ongoing pain. The patient was supposed to bring his levorphanol from home. He has no more pills left. He did state that he stopped taking it at home. In fact he has not received any doses here. June 11, 2018-the patient was seen by pain management. They have a new regimen that I am not going to change. He will follow-up with pain management post discharge. 06/12/2018-as noted above, per the recommendations of his pain management consult , no anticipated changes in his pain medication regimen. 06/13/2018-again the patient requested increased pain medications. I told him that I would not deviate from the recommended protocol of the pain management physician. May need to reach out to the physician and discuss options. My preference would be not to change his regimen. (5) Nutrient intake below expected requirement Is this a current diagnosis for this admission?: Yes (6) Hidradenitis suppurativa Is this a current diagnosis for this admission?: Yes - Time Time Spent with patient: 15-24 minutes Medications reviewed and adjusted accordingly: Yes - Plan Summary Plan Summary: The patient may be best suited for nursing home due to the likely ongoing need of antibiotic therapy as well as good hygiene/wound care. He has begun working with physical therapy and he would benefit from ongoing therapy as well.
[2018-06-14] MEDS: OXYCODONE HCL IR 5 MG TABLET PO PRN ×4 (01:47→21:20)
[2018-06-14] MEDS: PREGABALIN 100 MG CAPSULE PO SCH ×3 (05:37→21:22)
[2018-06-14] MEDS: PREGABALIN 50 MG CAPSULE PO SCH ×3 (05:37→21:22)
[2018-06-14] MEDS: KETOROLAC TROMETHAMINE INJ/PF 30 MG/1 ML SDV IV PRN ×3 (05:37→17:04)
[2018-06-14] MEDS: LANSOPRAZOLE 15 MG TAB.RAP.DR PO SCH (05:37)
[2018-06-14] MEDS: OXYCODONE HCL SR 10 MG TABLET PO SCH ×2 (05:37→14:34)
[2018-06-14] MEDS: LOPERAMIDE HCL 2 MG CAPSULE PO SCH ×2 (05:38→16:59)
[2018-06-14] MEDS: CLOTRIMAZOLE 1% TOPICAL SOLN 10 ML TP SCH ×3 (05:38→21:32)
[2018-06-14 06:34] LABS: ABSOLUTE BASOPHILS # (AUTO) 0.1 10^3/uL (0.0-0.2); ABSOLUTE EOSINOPHILS # (AUTO) 1.4 10^3/uL (0.0-0.6); ABSOLUTE LYMPHOCYTES (AUTO) 5.8 10^3/uL (0.5-4.7); ABSOLUTE MONOCYTES (AUTO) 2.2 10^3/uL (0.1-1.4); ABSOLUTE NEUT (AUTO) 7.2 10^3/uL (1.7-8.2); BASOPHILS % (AUTO) 0.7 % (0-2); EOSINOPHILS % (AUTO) 8.2 % (0-6); HEMATOCRIT 30.6 % (37.9-51.0); HEMOGLOBIN 9.9 g/dL (13.5-17.0); LYMPHOCYTES % (AUTO) 34.9 % (13-45); MEAN CORPUSCULAR HEMOGLOBIN 25.6 pg (27.0-33.4); MEAN CORPUSCULAR HGB CONC 32.5 g/dL (32.0-36.0); MEAN CORPUSCULAR VOLUME 79 fl (80-97); PLATELET COUNT 616 10^3/uL (150-450); RED BLOOD COUNT 3.87 10^6/uL (4.35-5.55); RED CELL DISTRIBUTION WIDTH 17.2 % (11.5-14.0); SEGMENTED NEUTROPHILS % (AUTO) 43.2 % (42-78); TOTAL CELLS COUNTED % (AUTO) 100 %; WHITE BLOOD COUNT 16.6 10^3/uL (4.0-10.5)
[2018-06-14 07:01] LABS: ANION GAP 10 (5-19); BLOOD UREA NITROGEN 21 mg/dL (7-20); C-REACTIVE PROTEIN 49.7 mg/L (<10.0); CALCIUM 9.2 mg/dL (8.4-10.2); CARBON DIOXIDE 29 mmol/L (22-30); CHLORIDE 103 mmol/L (98-107); GLUCOSE 115 mg/dL (75-110); POTASSIUM 5.2 mmol/L (3.6-5.0); SODIUM 141.5 mmol/L (137-145)
[2018-06-14] MEDS: MULTIVIT-STRESS FORMULA/ZINC TABLET PO SCH (09:02)
[2018-06-14] MEDS: ASCORBIC ACID 500 MG TABLET PO SCH ×2 (09:02→17:04)
[2018-06-14] MEDS: DULOXETINE HCL 30 MG CAPSULE.DR PO SCH ×2 (09:02→17:04)
[2018-06-14] MEDS: ENOXAPARIN SODIUM INJ 40 MG/0.4 ML DISP.SYRIN SUBCUT SCH (09:03)
[2018-06-14] MEDS: INSULIN DETEMIR 100 UNIT/ML 3 ML PEN SUBCUT SCH ×2 (09:03→21:24)
[2018-06-14] MEDS: CHOLESTYRAMINE/ASPARTAME 4 GM PACKET PO SCH ×4 (09:04→21:32)
[2018-06-14] MEDS: NORMAL SALINE 10 ML SDV (SCHEDULED) IV SCH ×2 (09:04→21:23)
[2018-06-14] MEDS ORDERED: MORPHINE SULFATE 10 MG/ML INJ ONE (13:12)
--- NOTE | 2018-06-14 17:08 | PDOC PROGRESS REPORT ---
Subjective Progress Note for:: 06/14/18 Subjective:: The patient still complains of significant pain. 05/26/2018-the patient was seen by surgery. They will be taken to the OR this evening. He still complains of a lot of pain. He was taking 30 mg of immediate release oxycodone every 4 hours as well as OxyContin. 05/27 Still complaining of severe pain. Sleepy today. Will wake up and immediately complain of pain. Appetite is very poor. 05/28/2018-still complaining of significant pain. Surgery reports that the axillary ulcer is stable. The Jaun drain will stay in place. 05/29/2018-before entering the room the patient appeared comfortable. He had an earbud in and was watching a program on his phone. His left arm was flexed. He appeared quite comfortable. When engaging the patient at the start of the encounter his countenance changed and he reported significant pain. 06/10/2018-the patient is known to this provider. He continues to complain of pain which is a chronic issue for him. He was seen by pain management. He states that therapy is try to get him up but his legs are very weak. June 11, 2018-the patient still is complaining of pain. Even though his pain management physician saw him he reports ineffectiveness of his regimen. He is also complaining about his ostomy output. 06/12/2018-still complaining of pain. She reports that the stool seems to be thickening but he still feels bloated. He still has lots of air in the colostomy bag. 06/13/2018-again the patient is complaining of pain. There is a noticeable foul odor and increased drainage with bleeding from his coccyx and buttock ulcers. 06/14/2018-there is still a foul odor emanating from the dressings. The patient still has a lot of pain. Is also complaining of discomfort with his ostomy. Reason For Visit: INFECTED BUTTOCK ULCER,ABSCESS RIGHT AXILLA Physical Exam Vital Signs: Temp Pulse Resp BP Pulse Ox 98.3 F 78 12 125/71 99 06/14/18 15:11 06/14/18 15:11 06/14/18 15:11 06/14/18 15:11 06/14/18 15:11 Intake & Output 06/13/18 06/14/18 06/15/18 06:59 06:59 06:59 Intake Total 2400 1063 Output Total 1850 1800 Balance 550 -737 Weight 67.7 kg 71 kg General appearance: PRESENT: cooperative, mild distress, thin Respiratory exam: PRESENT: clear to auscultation daija, symmetrical, unlabored. ABSENT: accessory muscle use, rales, rhonchi, wheezes Cardiovascular exam: PRESENT: RRR, +S1, +S2 GI/Abdominal exam: PRESENT: normal bowel sounds, soft, tenderness - With erythema just below the colostomy site.. ABSENT: distended, guarding Musculoskeletal exam: PRESENT: other - Loss of muscle mass Neurological exam: PRESENT: alert, awake, oriented to person, oriented to place , oriented to situation Skin exam: PRESENT: other - The dressings were removed. There was not as much foul odor today unfortunately the upper medial left thigh lesion had blood streaming out. We used moist gauze packing under an Allevyn dressing after the exam. Results Laboratory Results: 06/14/18 05:45 06/14/18 05:45 06/14/18 06/14/18 05:45 05:45 WBC 16.6 H RBC 3.87 L Hgb 9.9 L Hct 30.6 L MCV 79 L MCH 25.6 L MCHC 32.5 RDW 17.2 H Plt Count 616 H Seg Neutrophils % 43.2 Lymphocytes % 34.9 Monocytes % 13.0 Eosinophils % 8.2 H Basophils % 0.7 Absolute Neutrophils 7.2 Absolute Lymphocytes 5.8 H Absolute Monocytes 2.2 H Absolute Eosinophils 1.4 H Absolute Basophils 0.1 Sodium 141.5 Potassium 5.2 H Chloride 103 Carbon Dioxide 29 Anion Gap 10 BUN 21 H Creatinine 0.77 Est GFR ( Amer) > 60 Est GFR (Non-Af Amer) > 60 Glucose 115 H Calcium 9.2 C-Reactive Protein 49.7 H 06/11/18 18:27 Clean Catch Midstream Urine Culture - Final C.albicans/C.dubliniensis Impressions: Pelvis CT 05/24/18 07:46 IMPRESSION: No evidence of abscess or osteomyelitis. Guidance Fluoroscopy 05/30/18 00:00 IMPRESSION: SUCCESSFUL PLACEMENT OF A 5 FR DUAL LUMEN 46 CM PICC IN THE LEFT BASILIC VEIN. Interventional Vascular Procedure 05/30/18 00:00 IMPRESSION: SUCCESSFUL PLACEMENT OF A 5 FR DUAL LUMEN 46 CM PICC IN THE LEFT BASILIC VEIN. PICC Line Insertion 05/30/18 00:00 IMPRESSION: SUCCESSFUL PLACEMENT OF A 5 FR DUAL LUMEN 46 CM PICC IN THE LEFT BASILIC VEIN. Chest X-Ray 06/11/18 17:40 IMPRESSION: No focal airspace disease. Assessment & Plan - Diagnosis (1) Cellulitis and abscess of buttock Is this a current diagnosis for this admission?: Yes Plan: Antibiotics and analgesia as above. I did not write for a specific dressing at this time. Having the patient on an absorbent pad is adequate initially. 05/25/2018-as noted above surgery will see the patient. Continue vancomycin and Zosyn for the time being. 05/26/2018-continue vancomycin and Zosyn. Follow serum chemistries as well as C -reactive protein. 05/27/18- Antibiotics as above. Will recheck CRP in 3-4 days. The patient just informed me that he has Hidradeninitis suppuritiva as well. 05/28/2018-continuing antibiotics. This area is in fact his hidradenitis. It is likely he has chronically inflamed tissue with sinus tracts. 05/29/2018-the patient remains on vancomycin and Zosyn. His white blood cell count is coming down slowly. I will recheck a CBC tomorrow. Continue antibiotics at this time. 06/10/2018-Dr. Joy from [facility] infectious disease department did provide consultation. She recommended discontinuing antibiotics. The patient has been off of antibiotics for several days. She feels that his chronically elevated white blood cell count is reactive from chronic inflammation. We will continue to monitor his white blood count and temperature. Surgery is addressing the specific lesion. June 11, 2018-his white count is increased again. I have ordered a urine culture. We will also check a chest x-ray and blood cultures. 06/12/2018-chest x-ray is negative, blood cultures and urine culture are no growth so far. 06/13/2018-the patient's white blood cell count has been going up. In addition there is an increasing foul odor from the wounds. There could be an anaerobic component. Final culture results reveal Proteus, the somewhat resistant E. coli and enterococcus. These would classically be identified with fecal contamination however the patient does have a colostomy. I am rechecking white blood cell count tomorrow. If it continues to be elevated I will discuss with infectious diseases. He will likely need additional antibiotic therapy with broad enough spectrum to cover possible anaerobic presence. 06/14/2018-the white blood cell count is trending down somewhat. There is slightly decreased foul odor from the wounds. The patient is still having a lot of pain. We are holding antibiotics at this time as noted above. I did ask surgery to review the lesion. They had evaluated him just after his admission. (2) Axillary abscess Is this a current diagnosis for this admission?: Yes Plan: The patient had a right axillary abscess. He does cause some swelling and discomfort in his right arm. The abscess was incised and drained in the emergency department and packing was placed. We will have surgery monitor this wound as well. 05/25/2018-already on vancomycin and Zosyn. I will remove the Coban wrap from the arm. This should help decrease the swelling in the arm and hopefully decrease some of the discomfort. We will apply a dry sterile gauze secured with paper tape. Surgery will evaluate the patient tomorrow. 05/26/2018-see the consult from surgery. Further surgical intervention this evening. 05/27/18- Appreciate surgical intervention. Dressings ordered. Abx as above. Right arm still swollen. 05/28/2018-patient was seen by surgery today. A [place] drain was placed. The drain will stay in place. Simple gauze dressings applied and the drain can be removed by surgery next week 05/29/2018-the patient did admit that there is less discomfort in the right axilla. His arm is still slightly puffy. There is no erythema. There is a drain in place. Surgery will remove this in approximately 7-10 days. 06/10/2018-as noted above antibiotics have been discontinued. Conservative care with dressing changes to the right axilla. The patient still complains of discomfort in his right arm but the swelling and erythema in the right extremity has improved significantly. June 11, 2018-continue current dressings. White blood cell count is still increasing. See above. 06/12/2018-continue current dressing changes. 06/13/2018-reportedly quite painful by the patient. Healing is ongoing. 06/14/2018-patient reports still having pain but there is no drainage noted. There is no swelling in the arm. (3) Diabetes mellitus type 2 in nonobese Is this a current diagnosis for this admission?: Yes Plan: The patient will be on his Levemir with a Humalog sliding scale. It is possible that the metformin is contributing to his diarrhea and so I will hold his metformin temporarily. 05/25/2018-I have discontinued the metformin because of the diarrhea. We will continue the Levemir with Humalog sliding scale. The patient does state that he has been on metformin for some time and this has not been a problem. I will still hold it temporarily. 05/26/2018 sugars are actually fairly well controlled with his long-acting insulin and Humalog sliding scale. He is not on the metformin. Because he is going to the ER he will get a reduced dose of Levemir this evening. I also believe the proper diet is helping. 05/27/18- Glucoses surprisingly low. Likely due to poor appetite. Will lower levemir and adjust basrd on Accu-checks. 05/28/2018-good control of sugars at this time. No changes. 05/29/2018-the patient is on a lower dose of Levemir that he takes at home. His appetite has been poor. He is also on sliding scale. His glucoses have been fairly well controlled. 06/10/2018-the patient is on 8 units of Levemir twice daily. He has the sliding scale available. His glucoses have exhibited good control. June 11, 2018-no change in current regimen 06/12/2018-continue current regimen 06/13/2018-good glucose control on current regimen. No changes. 06/14/2018-all Accu-Cheks are staying below 150. (4) Chronic pain Qualifiers: Chronic pain type: chronic pain syndrome Qualified Code(s): G89.4 - Chronic pain syndrome Is this a current diagnosis for this admission?: Yes Plan: The patient reported that the regimen he was on was not effective. He is on gabapentin and duloxetine in addition to narcotic analgesia. In addition to the OxyContin 20 mg twice daily I have added medial release 10 mg every 4 hours as needed for pain. He still has 1 mg Dilaudid every 4 hours if needed. 05/26/2018-further information obtained from the patient reveals that he is actually on massive doses of oxycodone. In all he is probably exceeding 200 mg per 24 hours. I have increased his OxyContin to 40 mg every 12 hours and changed his immediate release oxycodone to 20 mg every 4 hours if needed. He also has IV Dilaudid if needed. 05/27/18- Large increase in oxycodaone yesterday/ Will increase gabapentin today. Also discontinued vistaril, ambien and lisinopril (low BP) in an effort to reduce polypharmacy. Consider reducing duloxetine if still somnolent in 3-4 days. 05/28/2018-patient still complains of pain. He wants increased Dilaudid doses. He ignores discussions about ineffectiveness of narcotics after a while. He is on levorphanol all as well. I will look at alternative measures. With his profound weight loss and systemic pain is overall status could be due to underlying bowel disease with associated weight loss. 05/29/2018-ongoing pain. The patient was supposed to bring his levorphanol from home. He has no more pills left. He did state that he stopped taking it at home. In fact he has not received any doses here. June 11, 2018-the patient was seen by pain management. They have a new regimen that I am not going to change. He will follow-up with pain management post discharge. 06/12/2018-as noted above, per the recommendations of his pain management consult , no anticipated changes in his pain medication regimen. 06/13/2018-again the patient requested increased pain medications. I told him that I would not deviate from the recommended protocol of the pain management physician. May need to reach out to the physician and discuss options. My preference would be not to change his regimen. 06/14/2018-a call has been placed to the pain management physician. To the patient that I would not change the regimen. He is on Toradol. I am watching his serum creatinine. We may need to stop the Toradol. (5) Nutrient intake below expected requirement Is this a current diagnosis for this admission?: Yes Plan: 05/26/2018-the patient was seen by the dietitian. Once I feel that his infection is better controlled she has suggested Mt. I did start the multivitamin, vitamin C and zinc supplements. I believe he is also receiving Glucerna. 05/27/18- Continue protein supplements. Multivitamin added as well. 05/28/2018-unfortunately the patient does not drink his protein drinks with meals. His appetite is poor. 05/29/2018-the patient states that his appetite is been poor. He had 3 Glucerna drinks on his bedside tray. Once again I encouraged him to drink these as they are concentrated nutrients that will help him. 06/10/2018-continue to encourage completion of meals. By the nursing notes it does appear that he has completed most of his meals and snacks lately. June 11, 2018-reports that his appetite varies. We continue to encourage his supplements as well. 06/12/2018-there are still multiple supplement drink boxes untouched. 06/14/2018-continue to encourage supplements. (6) Hidradenitis suppurativa Is this a current diagnosis for this admission?: Yes Plan: 05/27/18- as above 05/28/2018-unfortunately there is little effective intervention for this condition. We will continue his current treatment plan. 05/29/2018-ongoing pain. The patient is on antibiotics for the axilla. I would like to try sits baths but the patient has not been out of bed since admission. 06/10/2018-unfortunately this is a chronic issue with no "cure ". We will continue his current regimen and treat additional abscesses as they arise. June 11, 2018-as above. No changes. 06/12/2018-chronic condition. 06/14/2018-I did discuss with surgery the likelihood of this lesion healing. It would require strict adherence to treatment plans. I do not believe the patient or his family can provide that level of care. We are looking at the possibility of alf placement. - Time Time Spent with patient: 15-24 minutes Medications reviewed and adjusted accordingly: Yes
[2018-06-14] MEDS: FENTANYL 50 MCG/HR PATCH.TD72 TD SCH (21:23)
--- NOTE | 2018-06-14 22:38 | PDOC PROGRESS REPORT ---
Subjective Progress Note for:: 06/14/18 Subjective:: This is a 52-year-old male status post incision and drainage of a right axillary abscess many days ago. I was asked to see the patient, and assess the wound. The patient reports pain in the area, but improved from previous. He denies headaches, fevers, chills, nausea, vomiting, dizziness, orthostasis. He does report weakness, malaise, fatigue, and pain. Reason For Visit: INFECTED BUTTOCK ULCER,ABSCESS RIGHT AXILLA Physical Exam Vital Signs: Temp Pulse Resp BP Pulse Ox 98.6 F 90 16 107/69 99 06/14/18 20:04 06/14/18 20:04 06/14/18 20:04 06/14/18 20:04 06/14/18 20:04 Intake & Output 06/13/18 06/14/18 06/15/18 06:59 06:59 06:59 Intake Total 2400 1063 1272 Output Total 1850 1800 1100 Balance 550 -737 172 Weight 67.7 kg 71 kg General appearance: PRESENT: no acute distress Head exam: PRESENT: atraumatic, normocephalic Eye exam: PRESENT: EOMI, PERRLA. ABSENT: scleral icterus Mouth exam: PRESENT: neck supple Neck exam: ABSENT: meningismus, thyromegaly, tracheal deviation Respiratory exam: PRESENT: clear to auscultation daija. ABSENT: chest wall tenderness Cardiovascular exam: PRESENT: RRR Pulses: PRESENT: normal radial pulses Vascular exam: PRESENT: normal capillary refill. ABSENT: pallor GI/Abdominal exam: PRESENT: soft. ABSENT: distended, tenderness Extremities exam: ABSENT: clubbing Neurological exam: PRESENT: alert, awake, oriented to person, oriented to place , oriented to time, oriented to situation Psychiatric exam: PRESENT: agitated Skin exam: PRESENT: other - Right axillary abscess cavity appears clean. There is a small amount of seropurulent drainage. There is a Mccleary drain still in place. Results Laboratory Results: 06/14/18 05:45 06/14/18 05:45 06/14/18 06/14/18 05:45 05:45 WBC 16.6 H RBC 3.87 L Hgb 9.9 L Hct 30.6 L MCV 79 L MCH 25.6 L MCHC 32.5 RDW 17.2 H Plt Count 616 H Seg Neutrophils % 43.2 Lymphocytes % 34.9 Monocytes % 13.0 Eosinophils % 8.2 H Basophils % 0.7 Absolute Neutrophils 7.2 Absolute Lymphocytes 5.8 H Absolute Monocytes 2.2 H Absolute Eosinophils 1.4 H Absolute Basophils 0.1 Sodium 141.5 Potassium 5.2 H Chloride 103 Carbon Dioxide 29 Anion Gap 10 BUN 21 H Creatinine 0.77 Est GFR ( Amer) > 60 Est GFR (Non-Af Amer) > 60 Glucose 115 H Calcium 9.2 C-Reactive Protein 49.7 H Impressions: Pelvis CT 05/24/18 07:46 IMPRESSION: No evidence of abscess or osteomyelitis. Guidance Fluoroscopy 05/30/18 00:00 IMPRESSION: SUCCESSFUL PLACEMENT OF A 5 FR DUAL LUMEN 46 CM PICC IN THE LEFT BASILIC VEIN. Interventional Vascular Procedure 05/30/18 00:00 IMPRESSION: SUCCESSFUL PLACEMENT OF A 5 FR DUAL LUMEN 46 CM PICC IN THE LEFT BASILIC VEIN. PICC Line Insertion 05/30/18 00:00 IMPRESSION: SUCCESSFUL PLACEMENT OF A 5 FR DUAL LUMEN 46 CM PICC IN THE LEFT BASILIC VEIN. Chest X-Ray 06/11/18 17:40 IMPRESSION: No focal airspace disease. Assessment & Plan - Diagnosis (1) Axillary abscess Is this a current diagnosis for this admission?: Yes - Plan Summary Plan Summary: This is a 52-year-old male status post incision and drainage of a right axillary abscess many days ago. The patient still has a Mccleary drain in place. I have removed the Jaun drain today. The patient reports that he is not showering or caring for his wounds at all. I have informed him that if he does not keep his wounds clean, that his infection will persist. I have recommended that the patient wash his wounds with chlorhexidine soap twice daily. He should place a dry dressing after his shower. I see no indication for further surgical intervention. Continue with local wound care.
[2018-06-15] MEDS: OXYCODONE HCL IR 5 MG TABLET PO PRN ×5 (01:23→18:05)
[2018-06-15] MEDS: LOPERAMIDE HCL 2 MG CAPSULE PO SCH ×2 (05:59→17:59)
[2018-06-15] MEDS: CLOTRIMAZOLE 1% TOPICAL SOLN 10 ML TP SCH ×3 (05:59→23:55)
[2018-06-15] MEDS: LANSOPRAZOLE 15 MG TAB.RAP.DR PO SCH (06:01)
[2018-06-15] MEDS: PREGABALIN 100 MG CAPSULE PO SCH ×3 (06:01→23:52)
[2018-06-15] MEDS: PREGABALIN 50 MG CAPSULE PO SCH ×3 (06:01→23:52)
[2018-06-15] MEDS: CHOLESTYRAMINE/ASPARTAME 4 GM PACKET PO SCH ×4 (09:42→23:57)
[2018-06-15] MEDS: INSULIN DETEMIR 100 UNIT/ML 3 ML PEN SUBCUT SCH ×2 (09:50→23:56)
[2018-06-15] MEDS: ENOXAPARIN SODIUM INJ 40 MG/0.4 ML DISP.SYRIN SUBCUT SCH (09:51)
[2018-06-15] MEDS: DULOXETINE HCL 30 MG CAPSULE.DR PO SCH ×2 (09:52→18:04)
[2018-06-15] MEDS: ASCORBIC ACID 500 MG TABLET PO SCH ×2 (09:52→18:04)
[2018-06-15] MEDS: MULTIVIT-STRESS FORMULA/ZINC TABLET PO SCH (09:52)
[2018-06-15] MEDS: NORMAL SALINE 10 ML SDV (SCHEDULED) IV SCH ×2 (09:53→23:53)
[2018-06-15] MEDS ORDERED: AMPICILLIN SOD INJ 500 MG VIAL IV SCH (13:15)
[2018-06-15] MEDS: KETOROLAC TROMETHAMINE INJ/PF 30 MG/1 ML SDV IV PRN ×2 (13:59→20:24)
[2018-06-15] MEDS: FLUCONAZOLE 100 MG TABLET PO SCH (15:35)
[2018-06-15] MEDS: AMPICILLIN SODIUM 1 GM in NORMAL SALINE 50 ML IV SCH ×2 (15:35→20:26)
[2018-06-15] MEDS: CEFEPIME 1 GM/D5W RTU 1 GM/50 ML RTUPB IV SCH (18:05)
[2018-06-16] MEDS: OXYCODONE HCL IR 5 MG TABLET PO PRN ×6 (01:18→22:33)
[2018-06-16] MEDS: AMPICILLIN SODIUM 1 GM in NORMAL SALINE 50 ML IV SCH ×4 (02:16→21:51)
[2018-06-16] MEDS: KETOROLAC TROMETHAMINE INJ/PF 30 MG/1 ML SDV IV PRN ×4 (02:24→21:49)
[2018-06-16] MEDS: LANSOPRAZOLE 15 MG TAB.RAP.DR PO SCH (05:37)
[2018-06-16] MEDS: CEFEPIME 1 GM/D5W RTU 1 GM/50 ML RTUPB IV SCH ×2 (05:37→17:23)
[2018-06-16] MEDS: PREGABALIN 50 MG CAPSULE PO SCH ×3 (05:37→21:50)
[2018-06-16] MEDS: PREGABALIN 100 MG CAPSULE PO SCH ×3 (05:37→21:49)
[2018-06-16] MEDS: LOPERAMIDE HCL 2 MG CAPSULE PO SCH ×2 (05:38→17:17)
[2018-06-16] MEDS: CLOTRIMAZOLE 1% TOPICAL SOLN 10 ML TP SCH ×3 (05:38→21:47)
[2018-06-16 06:17] LABS: HEMATOCRIT 29.8 % (37.9-51.0); HEMOGLOBIN 9.8 g/dL (13.5-17.0); MEAN CORPUSCULAR HEMOGLOBIN 26.1 pg (27.0-33.4); MEAN CORPUSCULAR HGB CONC 32.8 g/dL (32.0-36.0); MEAN CORPUSCULAR VOLUME 80 fl (80-97); PLATELET COUNT 530 10^3/uL (150-450); RED BLOOD COUNT 3.74 10^6/uL (4.35-5.55); RED CELL DISTRIBUTION WIDTH 17.5 % (11.5-14.0); WHITE BLOOD COUNT 16.1 10^3/uL (4.0-10.5)
[2018-06-16 06:33] LABS: ANION GAP 10 (5-19); BLOOD UREA NITROGEN 21 mg/dL (7-20); CARBON DIOXIDE 28 mmol/L (22-30); CHLORIDE 104 mmol/L (98-107); GLUCOSE 125 mg/dL (75-110); POTASSIUM 4.6 mmol/L (3.6-5.0); SODIUM 142.1 mmol/L (137-145)
[2018-06-16] MEDS: CHOLESTYRAMINE/ASPARTAME 4 GM PACKET PO SCH ×4 (08:25→22:25)
[2018-06-16] MEDS: ENOXAPARIN SODIUM INJ 40 MG/0.4 ML DISP.SYRIN SUBCUT SCH (09:08)
[2018-06-16] MEDS: ASCORBIC ACID 500 MG TABLET PO SCH ×2 (09:09→17:23)
[2018-06-16] MEDS: MULTIVIT-STRESS FORMULA/ZINC TABLET PO SCH (09:09)
[2018-06-16] MEDS: DULOXETINE HCL 30 MG CAPSULE.DR PO SCH ×2 (09:09→17:23)
[2018-06-16] MEDS: FLUCONAZOLE 100 MG TABLET PO SCH (09:09)
[2018-06-16] MEDS: INSULIN DETEMIR 100 UNIT/ML 3 ML PEN SUBCUT SCH ×2 (09:13→22:47)
[2018-06-16] MEDS: NORMAL SALINE 10 ML SDV (SCHEDULED) IV SCH ×2 (09:18→22:25)
--- NOTE | 2018-06-16 14:09 | PDOC PROGRESS REPORT ---
Subjective Progress Note for:: 06/16/18 Subjective:: pains left jennifer-anal area Reason For Visit: INFECTED BUTTOCK ULCER,ABSCESS RIGHT AXILLA Physical Exam Vital Signs: Temp Pulse Resp BP Pulse Ox 97.6 F 71 16 135/83 H 99 06/16/18 11:23 06/16/18 11:23 06/16/18 11:23 06/16/18 11:23 06/16/18 11:23 Intake & Output 06/15/18 06/16/18 06/17/18 06:59 06:59 06:59 Intake Total 1272 2115 50 Output Total 1600 1640 Balance -328 475 50 Weight 71.2 kg 71.6 kg Exam: Multiple superficial ulcers jennifer-anal area. One area on the left side is render with some purulent discharge. Will need a formal I&D Results Laboratory Results: 06/16/18 06:00 06/16/18 06:00 06/16/18 06/16/18 06:00 06:00 WBC 16.1 H RBC 3.74 L Hgb 9.8 L Hct 29.8 L MCV 80 MCH 26.1 L MCHC 32.8 RDW 17.5 H Plt Count 530 H Sodium 142.1 Potassium 4.6 Chloride 104 Carbon Dioxide 28 Anion Gap 10 BUN 21 H Creatinine 0.70 Est GFR ( Amer) > 60 Est GFR (Non-Af Amer) > 60 Glucose 125 H Calcium 9.0 Impressions: Pelvis CT 05/24/18 07:46 IMPRESSION: No evidence of abscess or osteomyelitis. Guidance Fluoroscopy 05/30/18 00:00 IMPRESSION: SUCCESSFUL PLACEMENT OF A 5 FR DUAL LUMEN 46 CM PICC IN THE LEFT BASILIC VEIN. Interventional Vascular Procedure 05/30/18 00:00 IMPRESSION: SUCCESSFUL PLACEMENT OF A 5 FR DUAL LUMEN 46 CM PICC IN THE LEFT BASILIC VEIN. PICC Line Insertion 05/30/18 00:00 IMPRESSION: SUCCESSFUL PLACEMENT OF A 5 FR DUAL LUMEN 46 CM PICC IN THE LEFT BASILIC VEIN. Chest X-Ray 06/11/18 17:40 IMPRESSION: No focal airspace disease. Assessment & Plan - Diagnosis (1) PERIANAL ABSCESS Is this a current diagnosis for this admission?: Yes - Time Time Spent with patient: 15-24 minutes - Inpatient Certification Medical Necessity: Need for IV Antibiotics, Need for Surgery - Plan Summary Plan Summary: Will schedule I&D nleft jennifer-anal abscess in OR in am
--- NOTE | 2018-06-16 16:31 | PDOC PROGRESS REPORT ---
Subjective Progress Note for:: 06/15/18 Subjective:: The patient still complains of significant pain. 05/26/2018-the patient was seen by surgery. They will be taken to the OR this evening. He still complains of a lot of pain. He was taking 30 mg of immediate release oxycodone every 4 hours as well as OxyContin. 05/27 Still complaining of severe pain. Sleepy today. Will wake up and immediately complain of pain. Appetite is very poor. 05/28/2018-still complaining of significant pain. Surgery reports that the axillary ulcer is stable. The Jaun drain will stay in place. 05/29/2018-before entering the room the patient appeared comfortable. He had an earbud in and was watching a program on his phone. His left arm was flexed. He appeared quite comfortable. When engaging the patient at the start of the encounter his countenance changed and he reported significant pain. 06/10/2018-the patient is known to this provider. He continues to complain of pain which is a chronic issue for him. He was seen by pain management. He states that therapy is try to get him up but his legs are very weak. June 11, 2018-the patient still is complaining of pain. Even though his pain management physician saw him he reports ineffectiveness of his regimen. He is also complaining about his ostomy output. 06/12/2018-still complaining of pain. She reports that the stool seems to be thickening but he still feels bloated. He still has lots of air in the colostomy bag. 06/13/2018-again the patient is complaining of pain. There is a noticeable foul odor and increased drainage with bleeding from his coccyx and buttock ulcers. 06/14/2018-there is still a foul odor emanating from the dressings. The patient still has a lot of pain. Is also complaining of discomfort with his ostomy. 06/15/2018-patient still complaining of discomfort. Reason For Visit: INFECTED BUTTOCK ULCER,ABSCESS RIGHT AXILLA Physical Exam Vital Signs: Temp Pulse Resp BP Pulse Ox 97.8 F 83 16 132/76 H 99 06/16/18 14:44 06/16/18 14:44 06/16/18 14:44 06/16/18 14:44 06/16/18 14:44 Intake & Output 06/15/18 06/16/18 06/17/18 06:59 06:59 06:59 Intake Total 1272 2115 100 Output Total 1600 1640 Balance -328 475 100 Weight 71.2 kg 71.6 kg Results Laboratory Results: 06/16/18 06:00 06/16/18 06:00 06/16/18 06/16/18 06:00 06:00 WBC 16.1 H RBC 3.74 L Hgb 9.8 L Hct 29.8 L MCV 80 MCH 26.1 L MCHC 32.8 RDW 17.5 H Plt Count 530 H Sodium 142.1 Potassium 4.6 Chloride 104 Carbon Dioxide 28 Anion Gap 10 BUN 21 H Creatinine 0.70 Est GFR ( Amer) > 60 Est GFR (Non-Af Amer) > 60 Glucose 125 H Calcium 9.0 Impressions: Pelvis CT 05/24/18 07:46 IMPRESSION: No evidence of abscess or osteomyelitis. Guidance Fluoroscopy 05/30/18 00:00 IMPRESSION: SUCCESSFUL PLACEMENT OF A 5 FR DUAL LUMEN 46 CM PICC IN THE LEFT BASILIC VEIN. Interventional Vascular Procedure 05/30/18 00:00 IMPRESSION: SUCCESSFUL PLACEMENT OF A 5 FR DUAL LUMEN 46 CM PICC IN THE LEFT BASILIC VEIN. PICC Line Insertion 05/30/18 00:00 IMPRESSION: SUCCESSFUL PLACEMENT OF A 5 FR DUAL LUMEN 46 CM PICC IN THE LEFT BASILIC VEIN. Chest X-Ray 06/11/18 17:40 IMPRESSION: No focal airspace disease. Assessment & Plan - Diagnosis (1) Cellulitis and abscess of buttock Is this a current diagnosis for this admission?: Yes Plan: Antibiotics and analgesia as above. I did not write for a specific dressing at this time. Having the patient on an absorbent pad is adequate initially. 05/25/2018-as noted above surgery will see the patient. Continue vancomycin and Zosyn for the time being. 05/26/2018-continue vancomycin and Zosyn. Follow serum chemistries as well as C -reactive protein. 05/27/18- Antibiotics as above. Will recheck CRP in 3-4 days. The patient just informed me that he has Hidradeninitis suppuritiva as well. 05/28/2018-continuing antibiotics. This area is in fact his hidradenitis. It is likely he has chronically inflamed tissue with sinus tracts. 05/29/2018-the patient remains on vancomycin and Zosyn. His white blood cell count is coming down slowly. I will recheck a CBC tomorrow. Continue antibiotics at this time. 06/10/2018-Dr. Joy from [facility] infectious disease department did provide consultation. She recommended discontinuing antibiotics. The patient has been off of antibiotics for several days. She feels that his chronically elevated white blood cell count is reactive from chronic inflammation. We will continue to monitor his white blood count and temperature. Surgery is addressing the specific lesion. June 11, 2018-his white count is increased again. I have ordered a urine culture. We will also check a chest x-ray and blood cultures. 06/12/2018-chest x-ray is negative, blood cultures and urine culture are no growth so far. 06/13/2018-the patient's white blood cell count has been going up. In addition there is an increasing foul odor from the wounds. There could be an anaerobic component. Final culture results reveal Proteus, the somewhat resistant E. coli and enterococcus. These would classically be identified with fecal contamination however the patient does have a colostomy. I am rechecking white blood cell count tomorrow. If it continues to be elevated I will discuss with infectious diseases. He will likely need additional antibiotic therapy with broad enough spectrum to cover possible anaerobic presence. 06/14/2018-the white blood cell count is trending down somewhat. There is slightly decreased foul odor from the wounds. The patient is still having a lot of pain. We are holding antibiotics at this time as noted above. I did ask surgery to review the lesion. They had evaluated him just after his admission. 06/15/2018-the white blood cell count still remains high. I did reinitiate antibiotic therapy. There is still foul odor from the wound. (2) Axillary abscess Is this a current diagnosis for this admission?: Yes Plan: The patient had a right axillary abscess. He does cause some swelling and discomfort in his right arm. The abscess was incised and drained in the emergency department and packing was placed. We will have surgery monitor this wound as well. 05/25/2018-already on vancomycin and Zosyn. I will remove the Coban wrap from the arm. This should help decrease the swelling in the arm and hopefully decrease some of the discomfort. We will apply a dry sterile gauze secured with paper tape. Surgery will evaluate the patient tomorrow. 05/26/2018-see the consult from surgery. Further surgical intervention this evening. 05/27/18- Appreciate surgical intervention. Dressings ordered. Abx as above. Right arm still swollen. 05/28/2018-patient was seen by surgery today. A [place] drain was placed. The drain will stay in place. Simple gauze dressings applied and the drain can be removed by surgery next week 05/29/2018-the patient did admit that there is less discomfort in the right axilla. His arm is still slightly puffy. There is no erythema. There is a drain in place. Surgery will remove this in approximately 7-10 days. 06/10/2018-as noted above antibiotics have been discontinued. Conservative care with dressing changes to the right axilla. The patient still complains of discomfort in his right arm but the swelling and erythema in the right extremity has improved significantly. June 11, 2018-continue current dressings. White blood cell count is still increasing. See above. 06/12/2018-continue current dressing changes. 06/13/2018-reportedly quite painful by the patient. Healing is ongoing. 06/14/2018-patient reports still having pain but there is no drainage noted. There is no swelling in the arm. 06/15/2018-surgery removed the drain from the abscess cavity. There was some drainage. There is still no significant swelling. (3) Diabetes mellitus type 2 in nonobese Is this a current diagnosis for this admission?: Yes Plan: The patient will be on his Levemir with a Humalog sliding scale. It is possible that the metformin is contributing to his diarrhea and so I will hold his metformin temporarily. 05/25/2018-I have discontinued the metformin because of the diarrhea. We will continue the Levemir with Humalog sliding scale. The patient does state that he has been on metformin for some time and this has not been a problem. I will still hold it temporarily. 05/26/2018 sugars are actually fairly well controlled with his long-acting insulin and Humalog sliding scale. He is not on the metformin. Because he is going to the ER he will get a reduced dose of Levemir this evening. I also believe the proper diet is helping. 05/27/18- Glucoses surprisingly low. Likely due to poor appetite. Will lower levemir and adjust basrd on Accu-checks. 05/28/2018-good control of sugars at this time. No changes. 05/29/2018-the patient is on a lower dose of Levemir that he takes at home. His appetite has been poor. He is also on sliding scale. His glucoses have been fairly well controlled. 06/10/2018-the patient is on 8 units of Levemir twice daily. He has the sliding scale available. His glucoses have exhibited good control. June 11, 2018-no change in current regimen 06/12/2018-continue current regimen 06/13/2018-good glucose control on current regimen. No changes. 06/14/2018-all Accu-Cheks are staying below 150. 06/15/2018-continue current regimen (4) Chronic pain Qualifiers: Chronic pain type: chronic pain syndrome Qualified Code(s): G89.4 - Chronic pain syndrome Is this a current diagnosis for this admission?: Yes Plan: The patient reported that the regimen he was on was not effective. He is on gabapentin and duloxetine in addition to narcotic analgesia. In addition to the OxyContin 20 mg twice daily I have added medial release 10 mg every 4 hours as needed for pain. He still has 1 mg Dilaudid every 4 hours if needed. 05/26/2018-further information obtained from the patient reveals that he is actually on massive doses of oxycodone. In all he is probably exceeding 200 mg per 24 hours. I have increased his OxyContin to 40 mg every 12 hours and changed his immediate release oxycodone to 20 mg every 4 hours if needed. He also has IV Dilaudid if needed. 05/27/18- Large increase in oxycodaone yesterday/ Will increase gabapentin today. Also discontinued vistaril, ambien and lisinopril (low BP) in an effort to reduce polypharmacy. Consider reducing duloxetine if still somnolent in 3-4 days. 05/28/2018-patient still complains of pain. He wants increased Dilaudid doses. He ignores discussions about ineffectiveness of narcotics after a while. He is on levorphanol all as well. I will look at alternative measures. With his profound weight loss and systemic pain is overall status could be due to underlying bowel disease with associated weight loss. 05/29/2018-ongoing pain. The patient was supposed to bring his levorphanol from home. He has no more pills left. He did state that he stopped taking it at home. In fact he has not received any doses here. June 11, 2018-the patient was seen by pain management. They have a new regimen that I am not going to change. He will follow-up with pain management post discharge. 06/12/2018-as noted above, per the recommendations of his pain management consult , no anticipated changes in his pain medication regimen. 06/13/2018-again the patient requested increased pain medications. I told him that I would not deviate from the recommended protocol of the pain management physician. May need to reach out to the physician and discuss options. My preference would be not to change his regimen. 06/14/2018-a call has been placed to the pain management physician. To the patient that I would not change the regimen. He is on Toradol. I am watching his serum creatinine. We may need to stop the Toradol. 06/15/2018-defer to pain management physician. (5) Nutrient intake below expected requirement Is this a current diagnosis for this admission?: Yes Plan: 05/26/2018-the patient was seen by the dietitian. Once I feel that his infection is better controlled she has suggested Mt. I did start the multivitamin, vitamin C and zinc supplements. I believe he is also receiving Glucerna. 05/27/18- Continue protein supplements. Multivitamin added as well. 05/28/2018-unfortunately the patient does not drink his protein drinks with meals. His appetite is poor. 05/29/2018-the patient states that his appetite is been poor. He had 3 Glucerna drinks on his bedside tray. Once again I encouraged him to drink these as they are concentrated nutrients that will help him. 06/10/2018-continue to encourage completion of meals. By the nursing notes it does appear that he has completed most of his meals and snacks lately. June 11, 2018-reports that his appetite varies. We continue to encourage his supplements as well. 06/12/2018-there are still multiple supplement drink boxes untouched. 06/14/2018-continue to encourage supplements. 06/15/2018-appetite fluctuates. Continue to encourage good oral intake. (6) Hidradenitis suppurativa Is this a current diagnosis for this admission?: Yes Plan: 05/27/18- as above 05/28/2018-unfortunately there is little effective intervention for this condition. We will continue his current treatment plan. 05/29/2018-ongoing pain. The patient is on antibiotics for the axilla. I would like to try sits baths but the patient has not been out of bed since admission. 06/10/2018-unfortunately this is a chronic issue with no "cure ". We will continue his current regimen and treat additional abscesses as they arise. June 11, 2018-as above. No changes. 06/12/2018-chronic condition. 06/14/2018-I did discuss with surgery the likelihood of this lesion healing. It would require strict adherence to treatment plans. I do not believe the patient or his family can provide that level of care. We are looking at the possibility of senior care placement. 06/15/2018-unfortunately this is a chronic condition and the patient does not seem to be making much headway with his current status. - Time Time Spent with patient: 15-24 minutes Medications reviewed and adjusted accordingly: Yes
--- NOTE | 2018-06-16 20:08 | PDOC PROGRESS REPORT ---
Subjective Progress Note for:: 06/16/18 - Seen on rounds this morning Subjective:: I spoke with patient at bedside. He states that he is still having a lot of pain in his sacral area. Patient states that he has had these for a long time now. Patient states that it is very painful. Reason For Visit: INFECTED BUTTOCK ULCER,ABSCESS RIGHT AXILLA Physical Exam Vital Signs: Temp Pulse Resp BP Pulse Ox 98.3 F 81 14 125/74 99 06/16/18 16:55 06/16/18 16:55 06/16/18 16:55 06/16/18 16:55 06/16/18 16:55 Intake & Output 06/15/18 06/16/18 06/17/18 06:59 06:59 06:59 Intake Total 1272 2115 1120 Output Total 1600 1640 400 Balance -328 475 720 Weight 156 lb 15.506 oz 157 lb 13.616 oz General appearance: PRESENT: mild distress - Movement mostly Head exam: PRESENT: atraumatic, normocephalic Eye exam: PRESENT: EOMI. ABSENT: conjunctival injection, scleral icterus Mouth exam: PRESENT: tongue midline Neck exam: ABSENT: tracheal deviation Respiratory exam: PRESENT: clear to auscultation daija, symmetrical Cardiovascular exam: PRESENT: +S1, +S2 Pulses: PRESENT: +2 pedal pulses bilateral GI/Abdominal exam: PRESENT: normal bowel sounds, soft. ABSENT: tenderness Extremities exam: ABSENT: pedal edema Neurological exam: PRESENT: alert, awake, oriented to person, oriented to place , oriented to time, oriented to situation, CN II-XII grossly intact Skin exam: PRESENT: other - Open wound noted on right axilla, larger open wound noted in the posterior left inner thigh near the buttocks, tender to touch. Buttocks very tender to touch with skin breakdown Results Laboratory Results: 06/16/18 06:00 06/16/18 06:00 06/16/18 06/16/18 06:00 06:00 WBC 16.1 H RBC 3.74 L Hgb 9.8 L Hct 29.8 L MCV 80 MCH 26.1 L MCHC 32.8 RDW 17.5 H Plt Count 530 H Sodium 142.1 Potassium 4.6 Chloride 104 Carbon Dioxide 28 Anion Gap 10 BUN 21 H Creatinine 0.70 Est GFR ( Amer) > 60 Est GFR (Non-Af Amer) > 60 Glucose 125 H Calcium 9.0 06/11/18 19:02 Blood Blood Culture - Final NO GROWTH IN 5 DAYS 06/11/18 18:45 Blood Blood Culture - Final NO GROWTH IN 5 DAYS Impressions: Pelvis CT 05/24/18 07:46 IMPRESSION: No evidence of abscess or osteomyelitis. Guidance Fluoroscopy 05/30/18 00:00 IMPRESSION: SUCCESSFUL PLACEMENT OF A 5 FR DUAL LUMEN 46 CM PICC IN THE LEFT BASILIC VEIN. Interventional Vascular Procedure 05/30/18 00:00 IMPRESSION: SUCCESSFUL PLACEMENT OF A 5 FR DUAL LUMEN 46 CM PICC IN THE LEFT BASILIC VEIN. PICC Line Insertion 05/30/18 00:00 IMPRESSION: SUCCESSFUL PLACEMENT OF A 5 FR DUAL LUMEN 46 CM PICC IN THE LEFT BASILIC VEIN. Chest X-Ray 06/11/18 17:40 IMPRESSION: No focal airspace disease. Assessment & Plan - Diagnosis (1) Cellulitis and abscess of buttock Is this a current diagnosis for this admission?: Yes (2) Hidradenitis suppurativa Is this a current diagnosis for this admission?: Yes (3) Leukocytosis Qualifiers: Leukocytosis type: unspecified Qualified Code(s): D72.829 - Elevated white blood cell count, unspecified Is this a current diagnosis for this admission?: Yes (4) Sharri cystitis Is this a current diagnosis for this admission?: Yes (5) Diabetes mellitus type 2 in nonobese Is this a current diagnosis for this admission?: Yes - Plan Summary Plan Summary: Hidradenitis suppurativa-he has abscess and cellulitis of his right axilla and inner thigh, buttocks and groin area. I spoke with surgeon today. Plan is to take him to surgery tomorrow for possible I&D of abscess of the buttocks area. We will try to adjust his pain meds today since he is always in pain. Sharri cystitis-he currently is on Diflucan. Leukocytosis-he was on antibiotics a few weeks ago but then it was stopped as infectious disease had recommended stopping it. His WBC has trended up again and his antibiotics were restarted. Currently he is on ampicillin and cefepime. I went back and looked at his cultures which shows that he was sensitive to cefepime and Vanco. He had E. coli, Proteus and an enterococcus in his wound last month. His most recent groin wound culture shows gram- negative rods-sensitivities still pending Diabetes mellitus-continue with sliding scale insulin and long-acting insulin.
[2018-06-17] MEDS: OXYCODONE HCL IR 5 MG TABLET PO PRN ×5 (02:48→23:07)
[2018-06-17] MEDS: AMPICILLIN SODIUM 1 GM in NORMAL SALINE 50 ML IV SCH ×2 (02:51→09:31)
[2018-06-17] MEDS: KETOROLAC TROMETHAMINE INJ/PF 30 MG/1 ML SDV IV PRN ×3 (04:14→21:47)
[2018-06-17] MEDS: PREGABALIN 50 MG CAPSULE PO SCH ×3 (05:53→21:48)
[2018-06-17] MEDS: PREGABALIN 100 MG CAPSULE PO SCH ×3 (05:53→21:48)
[2018-06-17] MEDS: LOPERAMIDE HCL 2 MG CAPSULE PO SCH ×2 (05:53→18:42)
[2018-06-17] MEDS: LANSOPRAZOLE 15 MG TAB.RAP.DR PO SCH (05:53)
[2018-06-17] MEDS: CLOTRIMAZOLE 1% TOPICAL SOLN 10 ML TP SCH ×3 (05:54→22:02)
[2018-06-17] MEDS: CEFEPIME 1 GM/D5W RTU 1 GM/50 ML RTUPB IV SCH ×2 (06:02→18:36)
[2018-06-17 08:30] LABS: ABSOLUTE BASOPHILS # (AUTO) 0.3 10^3/uL (0.0-0.2); ABSOLUTE EOSINOPHILS # (AUTO) 1.3 10^3/uL (0.0-0.6); ABSOLUTE LYMPHOCYTES (AUTO) 5.3 10^3/uL (0.5-4.7); ABSOLUTE MONOCYTES (AUTO) 2.4 10^3/uL (0.1-1.4); BASOPHILS % (AUTO) 1.7 % (0-2); EOSINOPHILS % (AUTO) 7.6 % (0-6); HEMATOCRIT 28.6 % (37.9-51.0); HEMOGLOBIN 9.2 g/dL (13.5-17.0); LYMPHOCYTES % (AUTO) 30.5 % (13-45); MEAN CORPUSCULAR HEMOGLOBIN 25.4 pg (27.0-33.4); MEAN CORPUSCULAR HGB CONC 32.2 g/dL (32.0-36.0); MEAN CORPUSCULAR VOLUME 79 fl (80-97); PLATELET COUNT 529 10^3/uL (150-450); RED BLOOD COUNT 3.62 10^6/uL (4.35-5.55); RED CELL DISTRIBUTION WIDTH 17.7 % (11.5-14.0); SEGMENTED NEUTROPHILS % (AUTO) 46.2 % (42-78); TOTAL CELLS COUNTED % (AUTO) 100 %; WHITE BLOOD COUNT 17.3 10^3/uL (4.0-10.5)
[2018-06-17] MEDS ORDERED: LIDOCAINE 1% INJ-PF (10 MG/ML) 30 ML SDV ONE (08:38)
[2018-06-17] MEDS ORDERED: FENTANYL CITRATE INJ/PF 100 MCG/2 ML AMPUL ONE (08:53)
[2018-06-17] MEDS ORDERED: MIDAZOLAM 2 MG/2 ML INJ ONE (08:53)
[2018-06-17] MEDS ORDERED: PROPOFOL INJ 200 MG/20 ML VIAL IV ONE (08:54)
[2018-06-17] MEDS: CHOLESTYRAMINE/ASPARTAME 4 GM PACKET PO SCH ×4 (09:31→23:06)
[2018-06-17] MEDS ORDERED: ONDANSETRON HCL INJ/PF 4 MG/2 ML SDV IV PRN (09:53)
[2018-06-17] MEDS ORDERED: MEPERIDINE HCL/PF INJ 25 MG/1 ML DISP.SYRIN IV PRN (09:53)
[2018-06-17] MEDS ORDERED: DIPHENHYDRAMINE HCL 50 MG/ML VIAL IV PRN (09:53)
[2018-06-17] MEDS ORDERED: FENTANYL CITRATE INJ/PF 100 MCG/2 ML AMPUL IV PRN ×3 (09:53)
[2018-06-17] MEDS: FENTANYL 50 MCG/HR PATCH.TD72 TD SCH (11:08)
[2018-06-17] MEDS ORDERED: PHARMACY COMMUNICATION ORDER MC NR (12:30)
[2018-06-17] MEDS: DULOXETINE HCL 30 MG CAPSULE.DR PO SCH ×2 (12:36→18:36)
[2018-06-17] MEDS: ASCORBIC ACID 500 MG TABLET PO SCH ×2 (12:36→18:36)
[2018-06-17] MEDS: INSULIN DETEMIR 100 UNIT/ML 3 ML PEN SUBCUT SCH ×2 (12:39→22:02)
[2018-06-17] MEDS: FLUCONAZOLE 100 MG TABLET PO SCH (12:39)
[2018-06-17] MEDS: NORMAL SALINE 10 ML SDV (SCHEDULED) IV SCH ×2 (12:40→21:48)
[2018-06-17] MEDS: ENOXAPARIN SODIUM INJ 40 MG/0.4 ML DISP.SYRIN SUBCUT SCH (12:40)
[2018-06-17] MEDS: MULTIVIT-STRESS FORMULA/ZINC TABLET PO SCH (12:40)
[2018-06-17] MEDS: VANCOMYCIN HCL 750 MG in DEXTROSE 5%-WATER 250 ML IV SCH ×2 (13:53→22:01)
[2018-06-17] MEDS ORDERED: MORPHINE SULFATE 10 MG/ML INJ IV ONE (16:00)
--- NOTE | 2018-06-17 17:18 | PDOC PROGRESS REPORT ---
Subjective Progress Note for:: 06/17/18 - seen on rounds this afternoon Subjective:: he went for I&D this morning. he's c/o pain. states his back hurts and he wants more pain medications. i told him that too much pain meds can cause respiratory depression and even - states he's fine and he still wants more pain medications spoke with nursing overnight he had "some burst" in his back and had a lot of bleeding. Reason For Visit: INFECTED BUTTOCK ULCER,ABSCESS RIGHT AXILLA Physical Exam Vital Signs: Temp Pulse Resp BP Pulse Ox 97.7 F 84 8 L 100/64 97 06/17/18 10:44 06/17/18 10:44 06/17/18 10:44 06/17/18 10:44 06/17/18 10:44 Intake & Output 06/16/18 06/17/18 06/18/18 06:59 06:59 06:59 Intake Total 2115 1861 500 Output Total 1640 2400 40 Balance 475 -539 460 Weight 157 lb 13.616 oz 157 lb 13.616 oz General appearance: PRESENT: no acute distress, other - sleeping Head exam: PRESENT: atraumatic, normocephalic Eye exam: PRESENT: EOMI. ABSENT: conjunctival injection, scleral icterus Ear exam: PRESENT: normal external ear exam Mouth exam: PRESENT: tongue midline Neck exam: ABSENT: tracheal deviation Respiratory exam: PRESENT: clear to auscultation daija, symmetrical Cardiovascular exam: PRESENT: +S1, +S2 Pulses: PRESENT: +2 pedal pulses bilateral GI/Abdominal exam: PRESENT: normal bowel sounds, soft. ABSENT: tenderness Extremities exam: ABSENT: pedal edema Neurological exam: PRESENT: oriented to person, oriented to place, oriented to time, oriented to situation, CN II-XII grossly intact Skin exam: PRESENT: dry, warm, other - i did not check see wounds today Results Laboratory Results: 06/17/18 08:00 06/16/18 06:00 06/17/18 08:00 WBC 17.3 H RBC 3.62 L Hgb 9.2 L Hct 28.6 L MCV 79 L MCH 25.4 L MCHC 32.2 RDW 17.7 H Plt Count 529 H Seg Neutrophils % 46.2 Lymphocytes % 30.5 Monocytes % 14.0 H Eosinophils % 7.6 H Basophils % 1.7 Absolute Neutrophils 8.0 Absolute Lymphocytes 5.3 H Absolute Monocytes 2.4 H Absolute Eosinophils 1.3 H Absolute Basophils 0.3 H 06/11/18 19:02 Blood Blood Culture - Final NO GROWTH IN 5 DAYS 06/11/18 18:45 Blood Blood Culture - Final NO GROWTH IN 5 DAYS Impressions: Pelvis CT 05/24/18 07:46 IMPRESSION: No evidence of abscess or osteomyelitis. Guidance Fluoroscopy 05/30/18 00:00 IMPRESSION: SUCCESSFUL PLACEMENT OF A 5 FR DUAL LUMEN 46 CM PICC IN THE LEFT BASILIC VEIN. Interventional Vascular Procedure 05/30/18 00:00 IMPRESSION: SUCCESSFUL PLACEMENT OF A 5 FR DUAL LUMEN 46 CM PICC IN THE LEFT BASILIC VEIN. PICC Line Insertion 05/30/18 00:00 IMPRESSION: SUCCESSFUL PLACEMENT OF A 5 FR DUAL LUMEN 46 CM PICC IN THE LEFT BASILIC VEIN. Chest X-Ray 06/11/18 17:40 IMPRESSION: No focal airspace disease. Assessment & Plan - Diagnosis (1) Cellulitis and abscess of buttock Is this a current diagnosis for this admission?: Yes (2) Hidradenitis suppurativa Is this a current diagnosis for this admission?: Yes (3) Leukocytosis Qualifiers: Leukocytosis type: unspecified Qualified Code(s): D72.829 - Elevated white blood cell count, unspecified Is this a current diagnosis for this admission?: Yes (4) Sharri cystitis Is this a current diagnosis for this admission?: Yes (5) Diabetes mellitus type 2 in nonobese Is this a current diagnosis for this admission?: Yes (6) MRSA (methicillin resistant staph aureus) culture positive Is this a current diagnosis for this admission?: Yes - Plan Summary Plan Summary: Hidradenitis suppurativa-status post I&D this morning by surgeon-I appreciate surgical assistance. Continue with pain medications and wound care as needed. Due to his cellulitis of the axilla and groin/buttocks abscess I have continue on his cefepime. I have discontinued his ampicillin. Today one of his wound cultures returned with MRSA and hence I start him on having on vancomycin IV again. Sharri cystitis-he currently is on Diflucan Leukocytosis-he was on antibiotics a few weeks ago but then it was stopped as infectious disease had recommended stopping it. His WBC has trended up again and his antibiotics were restarted. Currently he is on vancomycin and cefepime. I went back and looked at his cultures which shows that he was sensitive to cefepime and Vanco. He had E. coli, Proteus and an enterococcus in his wound last month. Diabetes mellitus-continue with sliding scale insulin and long-acting insulin.
[2018-06-17] MEDS: NORMAL SALINE 10 ML SDV (AFTER EACH USE) IV PRN (23:42)
--- NOTE | 2018-06-18 04:47 | OPERATIVE REPORT E ---
Operative Report NAME: TIA VILLANUEVA : 1965 AGE: 52Y DATE OF SURGERY: 06/17/2018 ROOM: 527 PREOPERATIVE DIAGNOSIS: ABSCESSES OF THE LEFT PERIANAL AREA. POSTOPERATIVE DIAGNOSIS: ABSCESSES OF THE LEFT PERIANAL AREA. OPERATION: Incision and drainage of 2 left perianal abscesses. SURGEON: RAIZA KIMBLE M.D. ANESTHESIA: Local/MAC. INDICATION: This is a 52-year-old diabetic with a history of multiple abscesses around the perianal area due to hidradenitis. Yesterday I was asked by the nurse to check the left perianal area since there was some purulent material coming out. The patient was then taken to the OR today for incision and drainage of abscesses of the left perianal area. DESCRIPTION OF PROCEDURE: After adequate IV sedation, the patient is placed in the right lateral decubitus position. The perianal area was then prepped and draped in the usual sterile fashion. Appropriate time-out was called. Next, an area in the left superior lateral to the rectum, some fluctuant area, and this was subsequently injected with 1% lidocaine. A longitudinal incision was made about 2 cm long. A small amount of purulent material came out. Hemostasis controlled with the use of cautery. The abscess appears to be going down just to the area of the subcutaneous though. The skin is somewhat thickened from a previous sore/adjacent abscess in the past. Next, further down, going distal and lateral to the rectum, an area of purulent material was noted. This was further squeezed out and more purulent material noted. This area was then injected with lidocaine and a longitudinal incision was made. This appears to be going down to a couple of tunneling, and this area was also unroofed after local anesthesia injected, the whole length of the abscess cavity sites, about 7 cm. Cultures were then obtained from this area. There was some bleeding noted and this was then cauterized. Also, the surface of the cavity appears to have a chronic pseudocapsule. This was then partially cauterized. These areas were gently irrigated. Next, the areas were then packed with Iodoform gauze. A sterile dressing was placed over the operative sites. Needle, instrument, and sponge counts were all correct and estimated blood loss about 20 mL. The patient brought to the recovery room in satisfactory condition. DICTATING PHYSICIAN: RAIZA KIMBLE M.D. [id number] PHY#: [id number] ID: [id number] JOB#: [id number] ACCT: [id number] cc:RAIZA KIMBLE M.D. >
[2018-06-18] MEDS: LOPERAMIDE HCL 2 MG CAPSULE PO SCH ×2 (05:29→17:16)
[2018-06-18] MEDS: OXYCODONE HCL IR 5 MG TABLET PO PRN ×5 (05:30→23:22)
[2018-06-18] MEDS: LANSOPRAZOLE 15 MG TAB.RAP.DR PO SCH (05:30)
[2018-06-18] MEDS: PREGABALIN 100 MG CAPSULE PO SCH ×3 (05:30→21:23)
[2018-06-18] MEDS: PREGABALIN 50 MG CAPSULE PO SCH ×3 (05:30→21:23)
[2018-06-18] MEDS: CLOTRIMAZOLE 1% TOPICAL SOLN 10 ML TP SCH ×3 (05:31→22:49)
[2018-06-18] MEDS: CEFEPIME 1 GM/D5W RTU 1 GM/50 ML RTUPB IV SCH ×2 (05:31→17:13)
[2018-06-18] MEDS: KETOROLAC TROMETHAMINE INJ/PF 30 MG/1 ML SDV IV PRN ×3 (06:00→18:24)
[2018-06-18] MEDS: VANCOMYCIN HCL 750 MG in DEXTROSE 5%-WATER 250 ML IV SCH ×2 (06:01→14:11)
[2018-06-18 07:58] LABS: ABSOLUTE BASOPHILS # (AUTO) 0.3 10^3/uL (0.0-0.2); ABSOLUTE EOSINOPHILS # (AUTO) 1.2 10^3/uL (0.0-0.6); ABSOLUTE LYMPHOCYTES (AUTO) 4.6 10^3/uL (0.5-4.7); ABSOLUTE MONOCYTES (AUTO) 2.3 10^3/uL (0.1-1.4); ABSOLUTE NEUT (AUTO) 8.8 10^3/uL (1.7-8.2); BASOPHILS % (AUTO) 1.9 % (0-2); HEMOGLOBIN 8.7 g/dL (13.5-17.0); LYMPHOCYTES % (AUTO) 26.8 % (13-45); MEAN CORPUSCULAR HEMOGLOBIN 25.6 pg (27.0-33.4); MEAN CORPUSCULAR HGB CONC 32.3 g/dL (32.0-36.0); MEAN CORPUSCULAR VOLUME 79 fl (80-97); MONOCYTES % (AUTO) 13.2 % (3-13); PLATELET COUNT 512 10^3/uL (150-450); RED BLOOD COUNT 3.41 10^6/uL (4.35-5.55); RED CELL DISTRIBUTION WIDTH 18.1 % (11.5-14.0); SEGMENTED NEUTROPHILS % (AUTO) 51.1 % (42-78); TOTAL CELLS COUNTED % (AUTO) 100 %; WHITE BLOOD COUNT 17.2 10^3/uL (4.0-10.5)
[2018-06-18] MEDS: CHOLESTYRAMINE/ASPARTAME 4 GM PACKET PO SCH ×4 (08:19→21:24)
[2018-06-18] MEDS: DULOXETINE HCL 30 MG CAPSULE.DR PO SCH ×2 (10:00→17:15)
[2018-06-18] MEDS: ENOXAPARIN SODIUM INJ 40 MG/0.4 ML DISP.SYRIN SUBCUT SCH (10:11)
[2018-06-18] MEDS: INSULIN DETEMIR 100 UNIT/ML 3 ML PEN SUBCUT SCH ×2 (10:11→21:24)
[2018-06-18] MEDS: FLUCONAZOLE 100 MG TABLET PO SCH (10:11)
[2018-06-18] MEDS: MULTIVIT-STRESS FORMULA/ZINC TABLET PO SCH (10:16)
[2018-06-18] MEDS: NORMAL SALINE 10 ML SDV (SCHEDULED) IV SCH ×2 (10:16→21:27)
[2018-06-18] MEDS: ASCORBIC ACID 500 MG TABLET PO SCH ×2 (10:16→17:15)
--- NOTE | 2018-06-18 12:14 | PDOC PROGRESS REPORT ---
Subjective Progress Note for:: 06/18/18 Subjective:: Patient was laying in bed sleeping and I woke him up to speak with them this morning. I saw him bedside along with the surgeon. Patient complaining about not getting enough food in his daily meals. States that he was eating tubers every meal but now they have restricted him. He is also complaining of pain and wants more pain medications. We evaluated his wounds with the surgeon today Reason For Visit: INFECTED BUTTOCK ULCER,ABSCESS RIGHT AXILLA Physical Exam Vital Signs: Temp Pulse Resp BP Pulse Ox 98.2 F 92 16 110/76 100 06/17/18 23:08 06/17/18 23:08 06/17/18 23:08 06/17/18 23:08 06/17/18 23:08 Intake & Output 06/17/18 06/18/18 06/19/18 06:59 06:59 06:59 Intake Total 1861 3194 250 Output Total 2400 1240 Balance -539 1954 250 Weight 157 lb 13.616 oz 157 lb 13.616 oz General appearance: PRESENT: no acute distress Head exam: PRESENT: atraumatic, normocephalic Eye exam: PRESENT: EOMI. ABSENT: conjunctival injection, scleral icterus Ear exam: PRESENT: normal external ear exam Mouth exam: PRESENT: moist Neck exam: ABSENT: tracheal deviation Respiratory exam: PRESENT: clear to auscultation [place], symmetrical Cardiovascular exam: PRESENT: +S1, +S2 Pulses: PRESENT: +2 pedal pulses bilateral GI/Abdominal exam: PRESENT: normal bowel sounds, soft. ABSENT: tenderness Extremities exam: ABSENT: pedal edema Neurological exam: PRESENT: alert, awake, oriented to person, oriented to place , oriented to time, oriented to situation, CN II-XII grossly intact Skin exam: PRESENT: other - Right axilla wound noted-tender to palpation and not draining at this time Groin/buttocks/posterior inner thigh-wound noted with packing that was changed today. Tender to touch. Results Laboratory Results: 06/18/18 07:35 06/16/18 06:00 06/18/18 07:35 WBC 17.2 H RBC 3.41 L Hgb 8.7 L Hct 27.0 L MCV 79 L MCH 25.6 L MCHC 32.3 RDW 18.1 H Plt Count 512 H Seg Neutrophils % 51.1 Lymphocytes % 26.8 Monocytes % 13.2 H Eosinophils % 7.0 H Basophils % 1.9 Absolute Neutrophils 8.8 H Absolute Lymphocytes 4.6 Absolute Monocytes 2.3 H Absolute Eosinophils 1.2 H Absolute Basophils 0.3 H 06/15/18 14:30 Axilla - Right Gram Stain - Final 06/15/18 14:30 Axilla - Right Wound Culture - Final Mrsa (Meth Resis Staph Aureus) Skin [place] Impressions: Pelvis CT 05/24/18 07:46 IMPRESSION: No evidence of abscess or osteomyelitis. Guidance Fluoroscopy 05/30/18 00:00 IMPRESSION: SUCCESSFUL PLACEMENT OF A 5 FR DUAL LUMEN 46 CM PICC IN THE LEFT BASILIC VEIN. Interventional Vascular Procedure 05/30/18 00:00 IMPRESSION: SUCCESSFUL PLACEMENT OF A 5 FR DUAL LUMEN 46 CM PICC IN THE LEFT BASILIC VEIN. PICC Line Insertion 05/30/18 00:00 IMPRESSION: SUCCESSFUL PLACEMENT OF A 5 FR DUAL LUMEN 46 CM PICC IN THE LEFT BASILIC VEIN. Chest X-Ray 06/11/18 17:40 IMPRESSION: No focal airspace disease. Assessment & Plan - Diagnosis (1) Cellulitis and abscess of buttock Is this a current diagnosis for this admission?: Yes (2) Hidradenitis suppurativa Is this a current diagnosis for this admission?: Yes (3) Leukocytosis Qualifiers: Leukocytosis type: unspecified Qualified Code(s): D72.829 - Elevated white blood cell count, unspecified Is this a current diagnosis for this admission?: Yes (4) Sharri cystitis Is this a current diagnosis for this admission?: Yes (5) Diabetes mellitus type 2 in nonobese Is this a current diagnosis for this admission?: Yes (6) MRSA (methicillin resistant staph aureus) culture positive Is this a current diagnosis for this admission?: Yes - Plan Summary Plan Summary: Hidradenitis suppurativa-right axilla and abscess and cellulitis of his buttocks /groin-status post I&D on 06/17 by surgeon-I appreciate surgical assistance. Continue with pain medications and wound care as needed. Due to his cellulitis of the axilla and groin/buttocks abscess I have continued on his cefepime. I have discontinued his ampicillin. Today one of his wound cultures returned with MRSA and hence I started him on vancomycin IV from 06/17. We may need to consult infectious disease about antibiotic management. Sharri cystitis-he currently is on Diflucan Leukocytosis-most likely secondary to his wounds and abscess of his back. He was on antibiotics a few weeks ago but then it was stopped as infectious disease had recommended stopping it. His WBC has trended up again and his antibiotics were restarted. Currently he is on vancomycin and cefepime. I went back and looked at his cultures which shows that he was sensitive to cefepime and Vanco. He had E. coli, Proteus and an enterococcus in his wound last month. Diabetes mellitus-continue with sliding scale insulin and long-acting insulin.
[2018-06-18 14:39] LABS: VANCOMYCIN,TROUGH 10.5 ug/mL (5.0-20.0)
--- NOTE | 2018-06-18 19:39 | PDOC PROGRESS REPORT ---
Subjective Progress Note for:: 06/18/18 Subjective:: pains along I&D sites Reason For Visit: INFECTED BUTTOCK ULCER,ABSCESS RIGHT AXILLA Physical Exam Vital Signs: Temp Pulse Resp BP Pulse Ox 98.1 F 80 16 125/77 100 06/18/18 11:20 06/18/18 11:20 06/18/18 11:20 06/18/18 11:20 06/18/18 11:20 Intake & Output 06/17/18 06/18/18 06/19/18 06:59 06:59 06:59 Intake Total 1861 3194 2368 Output Total 2400 1240 640 Balance -539 1954 1728 Weight 71.6 kg 71.6 kg Exam: packings removed. Wounds look clean and dry Results Laboratory Results: 06/18/18 07:35 06/18/18 13:45 06/18/18 06/18/18 07:35 13:45 WBC 17.2 H RBC 3.41 L Hgb 8.7 L Hct 27.0 L MCV 79 L MCH 25.6 L MCHC 32.3 RDW 18.1 H Plt Count 512 H Seg Neutrophils % 51.1 Lymphocytes % 26.8 Monocytes % 13.2 H Eosinophils % 7.0 H Basophils % 1.9 Absolute Neutrophils 8.8 H Absolute Lymphocytes 4.6 Absolute Monocytes 2.3 H Absolute Eosinophils 1.2 H Absolute Basophils 0.3 H Creatinine 0.63 Est GFR ( Amer) > 60 Est GFR (Non-Af Amer) > 60 06/15/18 14:30 Axilla - Right Gram Stain - Final 06/15/18 14:30 Axilla - Right Wound Culture - Final Mrsa (Meth Resis Staph Aureus) Skin [place] Impressions: Pelvis CT 05/24/18 07:46 IMPRESSION: No evidence of abscess or osteomyelitis. Guidance Fluoroscopy 05/30/18 00:00 IMPRESSION: SUCCESSFUL PLACEMENT OF A 5 FR DUAL LUMEN 46 CM PICC IN THE LEFT BASILIC VEIN. Interventional Vascular Procedure 05/30/18 00:00 IMPRESSION: SUCCESSFUL PLACEMENT OF A 5 FR DUAL LUMEN 46 CM PICC IN THE LEFT BASILIC VEIN. PICC Line Insertion 05/30/18 00:00 IMPRESSION: SUCCESSFUL PLACEMENT OF A 5 FR DUAL LUMEN 46 CM PICC IN THE LEFT BASILIC VEIN. Chest X-Ray 06/11/18 17:40 IMPRESSION: No focal airspace disease. Assessment & Plan - Diagnosis (1) PERIANAL ABSCESS Is this a current diagnosis for this admission?: Yes - Time Time Spent with patient: 15-24 minutes - Inpatient Certification Medical Necessity: Need for IV Antibiotics - Plan Summary Plan Summary: Continue IV antibiotics Start Hot Sitz baths TID
[2018-06-18] MEDS: NORMAL SALINE 10 ML SDV (AFTER EACH USE) IV PRN (21:27)
[2018-06-18] MEDS: VANCOMYCIN HCL 1,000 MG in DEXTROSE 5%-WATER 250 ML IV SCH (21:27)
[2018-06-19] MEDS: KETOROLAC TROMETHAMINE INJ/PF 30 MG/1 ML SDV IV PRN ×4 (00:39→18:18)
[2018-06-19] MEDS: LOPERAMIDE HCL 2 MG CAPSULE PO SCH ×2 (05:11→18:07)
[2018-06-19] MEDS: LANSOPRAZOLE 15 MG TAB.RAP.DR PO SCH (05:11)
[2018-06-19] MEDS: OXYCODONE HCL IR 5 MG TABLET PO PRN ×5 (05:12→22:14)
[2018-06-19] MEDS: PREGABALIN 100 MG CAPSULE PO SCH ×3 (05:12→22:15)
[2018-06-19] MEDS: PREGABALIN 50 MG CAPSULE PO SCH ×3 (05:12→22:15)
[2018-06-19] MEDS: CLOTRIMAZOLE 1% TOPICAL SOLN 10 ML TP SCH ×3 (05:15→22:23)
[2018-06-19] MEDS: CEFEPIME 1 GM/D5W RTU 1 GM/50 ML RTUPB IV SCH ×2 (05:16→17:55)
[2018-06-19] MEDS: VANCOMYCIN HCL 1,000 MG in DEXTROSE 5%-WATER 250 ML IV SCH ×3 (05:57→22:18)
[2018-06-19] MEDS: CHOLESTYRAMINE/ASPARTAME 4 GM PACKET PO SCH ×4 (08:34→22:16)
[2018-06-19] MEDS: FLUCONAZOLE 100 MG TABLET PO SCH (09:35)
[2018-06-19] MEDS: DULOXETINE HCL 30 MG CAPSULE.DR PO SCH ×2 (09:35→17:55)
[2018-06-19] MEDS: INSULIN DETEMIR 100 UNIT/ML 3 ML PEN SUBCUT SCH ×2 (09:36→22:16)
[2018-06-19] MEDS: NORMAL SALINE 10 ML SDV (SCHEDULED) IV SCH ×2 (09:37→22:18)
[2018-06-19] MEDS: MULTIVIT-STRESS FORMULA/ZINC TABLET PO SCH (09:37)
[2018-06-19] MEDS: ASCORBIC ACID 500 MG TABLET PO SCH ×2 (09:37→17:55)
[2018-06-19] MEDS: ENOXAPARIN SODIUM INJ 40 MG/0.4 ML DISP.SYRIN SUBCUT SCH (09:49)
--- NOTE | 2018-06-19 16:52 | PDOC PROGRESS REPORT ---
Subjective Progress Note for:: 06/19/18 Subjective:: No adverse events overnight. No fevers. Vital signs been stable. Again, as when I have seen him before, he was very comfortable and asleep whenever came into the room and when I woke him up he began to grimace and tell me how much pain he was in. He had a hard time staying awake while he was telling me how much pain he was in. Reason For Visit: INFECTED BUTTOCK ULCER,ABSCESS RIGHT AXILLA Physical Exam Vital Signs: Temp Pulse Resp BP Pulse Ox 97.5 F 74 14 117/65 100 06/19/18 07:34 06/19/18 07:34 06/19/18 07:34 06/19/18 07:34 06/19/18 07:34 Intake & Output 06/18/18 06/19/18 06/20/18 06:59 06:59 06:59 Intake Total 3194 4138 500 Output Total 1240 1515 Balance 1954 2623 500 Weight 71.6 kg 71.4 kg General appearance: PRESENT: no acute distress, somnolent Respiratory exam: PRESENT: clear to auscultation bilaterally, symmetrical Cardiovascular exam: PRESENT: +S1, +S2 Pulses: PRESENT: +2 pedal pulses bilateral GI/Abdominal exam: PRESENT: normal bowel sounds, soft. ABSENT: tenderness Extremities exam: ABSENT: pedal edema Neurological exam: PRESENT: alert, awake, oriented to person, oriented to place , oriented to time Skin exam: PRESENT: other - Right axilla wound noted-tender to palpation and not draining at this time Groin/buttocks/posterior inner thigh-wound noted is cleanly dressed Results Laboratory Results: 06/18/18 07:35 06/18/18 13:45 06/15/18 14:30 Groin - Abscess Gram Stain - Final 06/15/18 14:30 Groin - Abscess Wound Culture - Final Proteus Mirabilis Escherichia Coli Mrsa (Meth Resis Staph Aureus) Skin [place] Impressions: Pelvis CT 05/24/18 07:46 IMPRESSION: No evidence of abscess or osteomyelitis. Guidance Fluoroscopy 05/30/18 00:00 IMPRESSION: SUCCESSFUL PLACEMENT OF A 5 FR DUAL LUMEN 46 CM PICC IN THE LEFT BASILIC VEIN. Interventional Vascular Procedure 05/30/18 00:00 IMPRESSION: SUCCESSFUL PLACEMENT OF A 5 FR DUAL LUMEN 46 CM PICC IN THE LEFT BASILIC VEIN. PICC Line Insertion 05/30/18 00:00 IMPRESSION: SUCCESSFUL PLACEMENT OF A 5 FR DUAL LUMEN 46 CM PICC IN THE LEFT BASILIC VEIN. Chest X-Ray 06/11/18 17:40 IMPRESSION: No focal airspace disease. Assessment & Plan - Diagnosis (1) Axillary abscess Is this a current diagnosis for this admission?: Yes Plan: No drainage noted. Continue wound care per surgery. He has been on IV antibiotics for quite some time. (2) Cellulitis and abscess of buttock Is this a current diagnosis for this admission?: Yes Plan: Is growing multiple organisms out, most consistently Proteus and E. coli. Continues on IV antibiotics per surgery. Surgery is recommended starting sitz baths. (3) Decubitus ulcer of left ischial area Qualifiers: Pressure injury stage: stage 4 Qualified Code(s): L89.324 - Pressure ulcer of left buttock, stage 4 Is this a current diagnosis for this admission?: Yes Plan: Continue with local wound care and attempts of pressure offloading, but he hardly moves voluntarily. (4) Decubitus ulcer of right ischial area Qualifiers: Pressure injury stage: stage 4 Qualified Code(s): L89.314 - Pressure ulcer of right buttock, stage 4 Is this a current diagnosis for this admission?: Yes Plan: As noted above (5) Leukocytosis Qualifiers: Leukocytosis type: other Qualified Code(s): D72.828 - Other elevated white blood cell count Is this a current diagnosis for this admission?: Yes Plan: As infectious disease was noted in their note, this patient has had a chronically elevated white blood cell count for quite some time. He may have some mild variations from time to time but I do not know if we can reliably count on his white blood cell count as an indicator of his clinical condition in the absence of some marked increase in his white blood cell count. - Time Time Spent with patient: 15-24 minutes
[2018-06-20] MEDS: KETOROLAC TROMETHAMINE INJ/PF 30 MG/1 ML SDV IV PRN ×2 (00:38→07:54)
[2018-06-20] MEDS: OXYCODONE HCL IR 5 MG TABLET PO PRN ×5 (05:24→23:42)
[2018-06-20] MEDS: LANSOPRAZOLE 15 MG TAB.RAP.DR PO SCH (05:26)
[2018-06-20] MEDS: PREGABALIN 100 MG CAPSULE PO SCH ×3 (05:26→21:14)
[2018-06-20] MEDS: PREGABALIN 50 MG CAPSULE PO SCH ×3 (05:26→21:14)
[2018-06-20] MEDS: LOPERAMIDE HCL 2 MG CAPSULE PO SCH ×2 (05:26→17:50)
[2018-06-20] MEDS: CEFEPIME 1 GM/D5W RTU 1 GM/50 ML RTUPB IV SCH ×2 (05:31→17:50)
[2018-06-20 06:24] LABS: VANCOMYCIN,TROUGH 20.7 ug/mL (5.0-20.0)
[2018-06-20] MEDS: VANCOMYCIN HCL 1,000 MG in DEXTROSE 5%-WATER 250 ML IV SCH (06:25)
[2018-06-20] MEDS: CLOTRIMAZOLE 1% TOPICAL SOLN 10 ML TP SCH ×3 (06:54→21:23)
[2018-06-20] MEDS: CHOLESTYRAMINE/ASPARTAME 4 GM PACKET PO SCH ×4 (07:54→23:45)
[2018-06-20] MEDS: MULTIVIT-STRESS FORMULA/ZINC TABLET PO SCH (09:42)
[2018-06-20] MEDS: DULOXETINE HCL 30 MG CAPSULE.DR PO SCH ×2 (09:42→17:49)
[2018-06-20] MEDS: ASCORBIC ACID 500 MG TABLET PO SCH ×2 (09:42→18:37)
[2018-06-20] MEDS: FENTANYL 50 MCG/HR PATCH.TD72 TD SCH (09:44)
[2018-06-20] MEDS: FLUCONAZOLE 100 MG TABLET PO SCH (09:44)
[2018-06-20] MEDS: INSULIN DETEMIR 100 UNIT/ML 3 ML PEN SUBCUT SCH ×2 (09:45→21:22)
[2018-06-20] MEDS: NORMAL SALINE 10 ML SDV (SCHEDULED) IV SCH (09:45)
[2018-06-20] MEDS: ENOXAPARIN SODIUM INJ 40 MG/0.4 ML DISP.SYRIN SUBCUT SCH (11:00)
[2018-06-20] MEDS: VANCOMYCIN HCL 1,250 MG in DEXTROSE 5%-WATER 250 ML IV SCH (17:57)
[2018-06-20] MEDS ORDERED: VANCOMYCIN HCL 1,000 MG in DEXTROSE 5%-WATER 250 ML IV SCH (18:00)
[2018-06-20] MEDS ORDERED: IBUPROFEN 800 MG TABLET PO PRN (18:17)
--- NOTE | 2018-06-20 18:20 | PDOC PROGRESS REPORT ---
Subjective Progress Note for:: 06/20/18 Subjective:: No adverse events overnight. No fevers. Vital signs been stable. Again, as when I have seen him before, he was very comfortable and asleep whenever came into the room and when I woke him up he began to grimace and tell me how much pain he was in. He said he said blood pouring out of the wounds on his left buttock and his perianal region. Reason For Visit: INFECTED BUTTOCK ULCER,ABSCESS RIGHT AXILLA Physical Exam Vital Signs: Temp Pulse Resp BP Pulse Ox 98.0 F 86 17 113/73 100 06/20/18 15:58 06/20/18 15:58 06/20/18 15:58 06/20/18 15:58 06/20/18 15:58 Intake & Output 06/19/18 06/20/18 06/21/18 06:59 06:59 06:59 Intake Total 4138 2389 722 Output Total 1515 1625 880 Balance 2623 764 -158 Weight 71.4 kg 71.4 kg General appearance: PRESENT: no acute distress, somnolent Respiratory exam: PRESENT: clear to auscultation bilaterally, symmetrical Cardiovascular exam: PRESENT: +S1, +S2 Pulses: PRESENT: +2 pedal pulses bilateral GI/Abdominal exam: PRESENT: normal bowel sounds, soft. ABSENT: tenderness Extremities exam: ABSENT: pedal edema Neurological exam: PRESENT: alert, awake, oriented to person, oriented to place , oriented to time Skin exam: PRESENT: other - Right axilla wound noted-tender to palpation and not draining at this time. Perianal and left buttock/groin wounds have some mild blood oozing but the wound beds look clean and there is no surrounding erythema. Results Laboratory Results: 06/18/18 07:35 06/20/18 05:35 06/20/18 05:35 Creatinine 0.72 Est GFR ( Amer) > 60 Est GFR (Non-Af Amer) > 60 06/17/18 09:51 Perirectal Gram Stain - Final 06/15/18 14:30 Groin - Abscess Gram Stain - Final 06/15/18 14:30 Groin - Abscess Wound Culture - Final Proteus Mirabilis Escherichia Coli Mrsa (Meth Resis Staph Aureus) Skin [place] Impressions: Pelvis CT 05/24/18 07:46 IMPRESSION: No evidence of abscess or osteomyelitis. Guidance Fluoroscopy 05/30/18 00:00 IMPRESSION: SUCCESSFUL PLACEMENT OF A 5 FR DUAL LUMEN 46 CM PICC IN THE LEFT BASILIC VEIN. Interventional Vascular Procedure 05/30/18 00:00 IMPRESSION: SUCCESSFUL PLACEMENT OF A 5 FR DUAL LUMEN 46 CM PICC IN THE LEFT BASILIC VEIN. PICC Line Insertion 05/30/18 00:00 IMPRESSION: SUCCESSFUL PLACEMENT OF A 5 FR DUAL LUMEN 46 CM PICC IN THE LEFT BASILIC VEIN. Chest X-Ray 06/11/18 17:40 IMPRESSION: No focal airspace disease. Assessment & Plan - Diagnosis (1) Axillary abscess Is this a current diagnosis for this admission?: Yes Plan: No drainage noted. Continue wound care per surgery. He has been on IV antibiotics for quite some time. (2) Cellulitis and abscess of buttock Is this a current diagnosis for this admission?: Yes Plan: Is growing multiple organisms out, most consistently Proteus and E. coli. Continues on IV antibiotics per surgery. Surgery is recommended starting sitz baths. He had some repeat cultures that are pending that look to be growing out similar organisms to previous cultures. If the culture results are comparable, we might be able to put him on Bactrim as this has shown to have susceptibility with the MRSA, Proteus, and E. coli that he is grown out in previous cultures. (3) Decubitus ulcer of left ischial area Qualifiers: Pressure injury stage: stage 4 Qualified Code(s): L89.324 - Pressure ulcer of left buttock, stage 4 Is this a current diagnosis for this admission?: Yes Plan: Continue with local wound care and attempts of pressure offloading, but he hardly moves voluntarily. (4) Decubitus ulcer of right ischial area Qualifiers: Pressure injury stage: stage 4 Qualified Code(s): L89.314 - Pressure ulcer of right buttock, stage 4 Is this a current diagnosis for this admission?: Yes Plan: As noted above (5) Leukocytosis Qualifiers: Leukocytosis type: other Qualified Code(s): D72.828 - Other elevated white blood cell count Is this a current diagnosis for this admission?: Yes Plan: As infectious disease was noted in their note, this patient has had a chronically elevated white blood cell count for quite some time. He may have some mild variations from time to time but I do not know if we can reliably count on his white blood cell count as an indicator of his clinical condition in the absence of some marked increase in his white blood cell count. - Time Time Spent with patient: 15-24 minutes
[2018-06-21] MEDS: NORMAL SALINE 10 ML SDV (SCHEDULED) IV SCH ×3 (01:18→21:26)
[2018-06-21] MEDS: LOPERAMIDE HCL 2 MG CAPSULE PO SCH ×2 (05:04→17:51)
[2018-06-21] MEDS: CLOTRIMAZOLE 1% TOPICAL SOLN 10 ML TP SCH ×3 (05:06→22:15)
[2018-06-21] MEDS: PREGABALIN 100 MG CAPSULE PO SCH ×3 (05:07→22:15)
[2018-06-21] MEDS: CEFEPIME 1 GM/D5W RTU 1 GM/50 ML RTUPB IV SCH ×2 (05:07→17:05)
[2018-06-21] MEDS: VANCOMYCIN HCL 1,250 MG in DEXTROSE 5%-WATER 250 ML IV SCH ×2 (05:07→17:46)
[2018-06-21] MEDS: LANSOPRAZOLE 15 MG TAB.RAP.DR PO SCH (05:07)
[2018-06-21] MEDS: PREGABALIN 50 MG CAPSULE PO SCH ×3 (05:08→21:24)
[2018-06-21] MEDS: OXYCODONE HCL IR 5 MG TABLET PO PRN ×4 (05:17→17:46)
[2018-06-21] MEDS: CHOLESTYRAMINE/ASPARTAME 4 GM PACKET PO SCH ×4 (07:58→22:16)
[2018-06-21] MEDS: MULTIVIT-STRESS FORMULA/ZINC TABLET PO SCH (09:17)
[2018-06-21] MEDS: ASCORBIC ACID 500 MG TABLET PO SCH ×2 (09:17→17:48)
[2018-06-21] MEDS: DULOXETINE HCL 30 MG CAPSULE.DR PO SCH ×2 (09:18→17:48)
[2018-06-21] MEDS: INSULIN DETEMIR 100 UNIT/ML 3 ML PEN SUBCUT SCH ×2 (09:22→21:23)
[2018-06-21] MEDS: FLUCONAZOLE 100 MG TABLET PO SCH (09:22)
[2018-06-21] MEDS: ENOXAPARIN SODIUM INJ 40 MG/0.4 ML DISP.SYRIN SUBCUT SCH (09:23)
--- NOTE | 2018-06-21 11:55 | PDOC TRANSFER SUMMARY ---
General Admission Date/PCP: 05/24/18 14:17 DELROY CROUCHDO Transfer Date: 06/21/18 Accepting Facility: Other (Comments) - [facility] Resuscitation Status: Full Code - Transfer Diagnosis (1) Axillary abscess Is this a current diagnosis for this admission?: Yes Diagnosis Summary: The course of antibiotics he has received thus far should have been sufficient to treat the organisms that have grown out of it. He has had incision and drainage with wound care. He is grown out a Proteus, E. coli, and MRSA. (2) Cellulitis and abscess of buttock Is this a current diagnosis for this admission?: Yes Diagnosis Summary: He also had an abscess of the perianal area. These wounds have also been incised and drained. They have grown out comparable organisms to the axillary abscess. The last set of cultures done was around June 17. Depending on the results of this culture, he may be able to be switched over to Bactrim to complete a course of therapy, because the Proteus, E. coli, and MRSA that he has previously grown have all been sensitive to Bactrim. (3) Decubitus ulcer of left ischial area Is this a current diagnosis for this admission?: Yes Diagnosis Summary: We have made many attempts to try to get him up out of bed to walk. He always claims that he cannot walk and feels like he is going to fall and he winds up doing this sort of shaking thing when he standing up and claims he is going to fall. He does not want to get out of bed and this is why he has wounds. We continue to try to roll him and offload him but he claims every time anybody ever touches him or tries to move them he claims to be in excruciating pain, yet every time we go into the room we have to wake him up for him to tell us how much pain exam. (4) Decubitus ulcer of right ischial area Is this a current diagnosis for this admission?: Yes Diagnosis Summary: Same as above. (5) Leukocytosis Is this a current diagnosis for this admission?: Yes Diagnosis Summary: He has had a splenectomy, and his white blood cell count seems to have a right around 17. Infectious disease recommended that we not use his white blood cell count alone as a clinical indicator of infection without some other evidence. His vital signs have been stable for quite some time. His white count has not really been elevated above his usual 16-17 range in quite some time. - Transfer Medications Home Medications: Celecoxib [Celebrex 100 mg Capsule] 100 mg PO Q12 05/24/18 Duloxetine HCl [Cymbalta] 60 mg PO BID 05/24/18 Gabapentin [Neurontin] 600 mg PO TID 05/24/18 Hydroxyzine HCl [Atarax 50 mg Tablet] 50 mg PO QID 05/24/18 Insulin Detemir [Levemir] 15 units SQ BID 05/24/18 Levorphanol Tartrate 2 mg PO QID 05/24/18 Lisinopril [Prinivil 5 mg Tablet] 5 mg PO DAILY 05/24/18 Metformin HCl [Glucophage] 1,000 mg PO BID 05/24/18 Ondansetron HCl [Zofran 4 mg Tablet] 4 mg PO Q6HP PRN 05/24/18 Oxycodone HCl [Roxicodone] 30 mg PO Q8HP PRN 05/24/18 Zolpidem Tartrate [Ambien 5 mg Tablet] 2.5 mg PO QHS 05/24/18 Transfer Medications: Current Medications Acetaminophen (Tylenol 325 Mg Tablet) 650 mg PO Q4HP PRN PRN Reason: FOR PAIN OR TEMP Stop: 06/23/18 16:24 Ascorbic Acid (Vitamin C 500 Mg Tablet) 500 mg PO BID [facility] Stop: 06/26/18 09:59 Last Admin: 06/21/18 09:17 Dose: 500 mg Cholestyramine Resin (Questran Light 4 Gm Packet) 4 gm PO MEALSHS [facility] Stop: 06/26/18 16:59 Last Admin: 06/21/18 07:58 Dose: Not Given Clotrimazole (Lotrimin 1% Topical Soln 10 Ml) 1 applic TP Q8 [facility] Stop: 07/01/18 21:59 Last Admin: 06/21/18 05:06 Dose: Not Given Dextrose (Dextrose Inj 50% Syringe (25 Gm/50 Ml)) 25 gm IV PRN PRN; Protocol PRN Reason: PER PROTOCOL Stop: 06/23/18 19:16 Dextrose (Dextrose Inj 50% Syringe (25 Gm/50 Ml)) 12.5 gm IV PRN PRN; Protocol PRN Reason: FOR BG 50-69 IN ALERT PATIENT Stop: 06/23/18 19:16 Duloxetine HCl (Cymbalta 30 Mg Capsule.Dr) 60 mg PO BID [facility] Stop: 06/23/18 17:59 Last Admin: 06/21/18 09:18 Dose: 60 mg Enoxaparin Sodium (Lovenox Inj 40 Mg/0.4 Ml Disp.Syrin) 40 mg SUBCUT DAILY [facility] Stop: 06/23/18 17:29 Last Admin: 06/21/18 09:23 Dose: Not Given Fentanyl (Duragesic 50 Mcg/Hr Transdermal Patch) 1 each TD Q3DAYS [facility] Stop: 06/21/18 20:14 Last Admin: 06/20/18 09:44 Dose: 1 each Fluconazole (Diflucan 100 Mg Tablet) 100 mg PO DAILY [facility] Stop: 06/22/18 14:59 Last Admin: 06/21/18 09:22 Dose: 100 mg Glucagon (Glucagen Inj 1 Mg Vial) 1 mg IM PRN PRN; Protocol PRN Reason: Evaluate for BG < 70 Stop: 06/23/18 19:16 Glucose (Glutose 40% Gel 15 Gm Tube) 15 gm PO PRN PRN; Protocol PRN Reason: FOR BG 50-69 IN ALERT PATIENT Stop: 06/23/18 19:16 Glucose (Glutose 40% Gel 15 Gm Tube) 30 gm PO PRN PRN; Protocol PRN Reason: FOR BG < 50 IN ALERT PATIENT Stop: 06/23/18 19:16 Heparin Sodium (Porcine) (Heparin Flush 10 Unit/Ml 5 Ml Disp.Syrg) 30 unit IV Q12 [facility] Stop: 06/30/18 21:59 Last Admin: 06/21/18 09:18 Dose: 30 unit Heparin Sodium (Porcine) (Heparin Flush 10 Unit/Ml 5 Ml Disp.Syrg) 30 unit IV .AFTER EACH USE PRN Stop: 06/30/18 18:07 Last Admin: 06/17/18 23:44 Dose: 30 unit Cefepime HCl (Maxipime Rtu 1 Gm/D5w 50 Ml Premix Bag) 1 gm in 50 mls @ 100 mls/ hr IV Q12@0600,1800 [facility] Stop: 06/22/18 17:59 Last Infusion: 06/21/18 06:05 Dose: Infused Vancomycin HCl 1,250 mg/ (Dextrose) 250 mls @ 166.667 mls/hr IV Q12A [facility] Stop: 06/27/18 17:59 Last Infusion: 06/21/18 06:35 Dose: Infused Ibuprofen (Motrin 800 Mg Tablet) 800 mg PO Q6HP PRN PRN Reason: FOR PAIN Stop: 07/20/18 18:16 Last Admin: 06/20/18 18:38 Dose: 800 mg Insulin Detemir (Levemir Insulin 300 Units/3 Ml Insuln.Pen) 8 unit SUBCUT Q12 [facility] Stop: 06/26/18 15:05 Last Admin: 06/21/18 09:22 Dose: 8 units Insulin Human Lispro (Humalog Insulin 100 Unit/1 Ml 3 Ml Vial) 0 - 12 unit SUBCUT ACHSP PRN; Protocol PRN Reason: PER PROTOCOL Stop: 06/23/18 19:16 Last Admin: 05/31/18 07:28 Dose: 2 unit Lansoprazole (Prevacid 15 Mg Odt Tablet) 15 mg PO Q6AM [facility] Stop: 06/24/18 05:59 Last Admin: 06/21/18 05:07 Dose: 15 mg Loperamide HCl (Imodium 2 Mg Capsule) 2 mg PO Q12A [facility] Stop: 07/12/18 17:59 Last Admin: 06/21/18 05:04 Dose: Not Given Ondansetron HCl (Zofran Odt 4 Mg Tablet) 4 mg PO Q4HP PRN PRN Reason: FOR NAUSEA/VOMITING Stop: 06/23/18 16:24 Last Admin: 06/02/18 21:28 Dose: 4 mg Oxycodone HCl (Oxy-Ir 5 Mg Tablet) 30 mg PO Q4HP PRN PRN Reason: FOR PAIN Stop: 06/21/18 19:01 Last Admin: 06/21/18 09:19 Dose: 30 mg Pregabalin (Lyrica 100 Mg Capsule) 100 mg PO Q8 [facility] Stop: 07/05/18 21:59 Last Admin: 06/21/18 05:07 Dose: 100 mg Pregabalin (Lyrica 50 Mg Capsule) 50 mg PO Q8 [facility] Stop: 07/05/18 21:59 Last Admin: 06/21/18 05:08 Dose: 50 mg Promethazine HCl (Phenergan 25 Mg Tablet) 12.5 mg PO Q4HP PRN PRN Reason: FOR NAUSEA/VOMITING Stop: 06/23/18 16:24 Last Admin: 06/02/18 14:42 Dose: 12.5 mg Simethicone (Mylicon 80 Mg Chewable Tablet) 160 mg PO Q8HP PRN PRN Reason: FOR GAS (FLATULENCE) Stop: 07/12/18 17:10 Sodium Chloride (Saline Flush 2.5 Ml Monoject Prefil Syrin) 2.5 ml IV Q8 [facility] Stop: 06/23/18 21:59 Last Admin: 06/21/18 05:08 Dose: Not Given Sodium Chloride (Nacl 0.9% Inj/Pf 10 Ml Sdv) 10 ml IV Q12 [facility] Stop: 06/30/18 21:59 Last Admin: 06/21/18 09:24 Dose: 10 ml Sodium Chloride (Nacl 0.9% Inj/Pf 10 Ml Sdv) 10 ml IV .AFTER EACH USE PRN Stop: 06/30/18 18:07 Last Admin: 06/18/18 21:27 Dose: 10 ml Vitamin B Complex/Vit C/Vit E/Zinc (Zbec Tablet) 1 tab PO DAILY [facility] Stop: 06/26/18 09:59 Last Admin: 06/21/18 09:17 Dose: 1 tab - Allergies Allergies/Adverse Reactions: atropine Allergy (Verified 05/24/18 07:25) itching, "scratchy throat" diphenoxylate HCl [From Lomotil] Allergy (Verified 05/24/18 07:25) itching, hives erythromycin base [Erythromycin Base] Allergy (Verified 05/24/18 07:25) itching paroxetine HCl [From Paxil] Allergy (Verified 05/24/18 07:25) itching Sulfa (Sulfonamide Antibiotics) Allergy (Verified 05/24/18 07:25) Migraines, fatigue trimethoprim [From Bactrim] Allergy (Verified 05/24/18 07:25) itching, GI problems - Diet/Activity Discharge Diet: Diabetic Discharge Activity: Supervised Activity Hospital Course Hospital Course: This is a gentleman who has spent most of this year and one medical facility or another. From August through February he was in this hospital and then in a long-term acute care facility and then in a rehab facility. He had been going to the wound center to help address a pressure wound on his backside. He had missed a couple of appointments because he said he was just in too much pain to make the trip. He came in this time because of the wound on his backside which was getting worse because he had not been tending to it and also because he wound up developing a right axillary abscess as well as a left buttock and groin abscess and a perianal abscess. All of these have been incised and drained. He has been on IV antibiotics most the time that he has been here, initially for the wound and then kept on them for the right axillary abscess. He was then found to have the abscesses in his left groin and buttocks as well as in his perianal region, which have also been incised and drained. The wounds have all grown out comparable bacteria. Amongst the 3 of them they have grown out a Proteus mirabilis, an E. coli, and MRSA. And his cultures he will usually have at least 2 of these organisms, sometimes all 3. Some of them have several drug resistances, but all 3 seem to be sensitive to Bactrim, and he can probably be switched over to that he can finish a course of treatment. I have seen him several times during this hospitalization, and every day when I come in he is fast asleep, and when I wake him up he immediately changes his face and would grimace and begins to tell me how much pain exam. He constantly ask for more pain medication, which I have refused. At this point were mainly just giving him antibiotics and doing wound care. His wounds are going to need more care than were able to consistently to get for him in the outpatient setting mainly due to his noncompliance. He was deemed a candidate for LTAC and has been accepted. His labs and examination are reassuring and he will be transferred today in good condition. Physical Exam Vital Signs: Temp Pulse Resp BP Pulse Ox 97.9 F 100 20 113/72 100 06/21/18 08:00 06/21/18 08:00 06/21/18 08:00 06/21/18 08:00 06/21/18 08:00 Intake & Output 06/20/18 06/21/18 06/22/18 06:59 06:59 06:59 Intake Total 0989 2259 Output Total 1626 8440 Balance 764 -181 Weight 71.4 kg 73.1 kg General appearance: PRESENT: no acute distress, somnolent Respiratory exam: PRESENT: clear to auscultation bilaterally, symmetrical Cardiovascular exam: PRESENT: +S1, +S2 Pulses: PRESENT: +2 pedal pulses bilateral GI/Abdominal exam: PRESENT: normal bowel sounds, soft. ABSENT: tenderness Extremities exam: ABSENT: pedal edema Neurological exam: PRESENT: alert, awake, oriented to person, oriented to place , oriented to time Skin exam: PRESENT: other - Right axilla wound noted-tender to palpation and not draining at this time. Perianal and left buttock/groin wounds have some mild blood oozing but the wound beds look clean and there is no surrounding erythema. Results Laboratory Results: 06/18/18 07:35 06/20/18 05:35 06/17/18 09:51 Perirectal Gram Stain - Final Impressions: Pelvis CT 05/24/18 07:46 IMPRESSION: No evidence of abscess or osteomyelitis. Guidance Fluoroscopy 05/30/18 00:00 IMPRESSION: SUCCESSFUL PLACEMENT OF A 5 FR DUAL LUMEN 46 CM PICC IN THE LEFT BASILIC VEIN. Interventional Vascular Procedure 05/30/18 00:00 IMPRESSION: SUCCESSFUL PLACEMENT OF A 5 FR DUAL LUMEN 46 CM PICC IN THE LEFT BASILIC VEIN. PICC Line Insertion 05/30/18 00:00 IMPRESSION: SUCCESSFUL PLACEMENT OF A 5 FR DUAL LUMEN 46 CM PICC IN THE LEFT BASILIC VEIN. Chest X-Ray 06/11/18 17:40 IMPRESSION: No focal airspace disease.
[2018-06-21 17:07] VITALS: BP 124/77
[2018-06-21] MEDS ORDERED: OXYCODONE HCL IR 5 MG TABLET PO ONE (21:45)
== END 2018-06-21 22:15 | DRG 570 ==
LOC: ER 06:55 → EH 14:17 → OBSVTOIN 14:17 → 5 17:30
PROVIDERS: ADMIT Emergency Medicine; ATTEND Emergency Medicine
PROC: 0JBD0ZZ Excision of Right Upper Arm Subcutaneous Tissue and Fascia, Open Approach (ICD-10-PCS; principal; 2018-05-26 19:15)
PROC: 02HV33Z Insertion of Infusion Device into Superior Vena Cava, Percutaneous Approach (ICD-10-PCS; 2018-05-30)
PROC: B518ZZA Fluoroscopy of Superior Vena Cava, Guidance (ICD-10-PCS; 2018-05-30)
PROC: B548ZZA Ultrasonography of Superior Vena Cava, Guidance (ICD-10-PCS; 2018-05-30)
PROC: 0D9QXZX Drainage of Anus, External Approach, Diagnostic (ICD-10-PCS; 2018-06-17)
DX: L89.324 Pressure ulcer of left buttock, stage 4 (principal); E43 Unspecified severe protein-calorie malnutrition; L02.31 Cutaneous abscess of buttock; L02.411 Cutaneous abscess of right axilla; L02.214 Cutaneous abscess of groin; K61.0 Anal abscess; K50.90 Crohn's disease, unspecified, without complications; L03.317 Cellulitis of buttock; B37.41 Candidal cystitis and urethritis; L89.314 Pressure ulcer of right buttock, stage 4; B96.20 Unspecified Escherichia coli [E. coli] as the cause of diseases classified elsewhere; B96.4 Proteus (mirabilis) (morganii) as the cause of diseases classified elsewhere; B95.62 Methicillin resistant Staphylococcus aureus infection as the cause of diseases classified elsewhere; B95.2 Enterococcus as the cause of diseases classified elsewhere; I10 Essential (primary) hypertension; M19.90 Unspecified osteoarthritis, unspecified site; F41.9 Anxiety disorder, unspecified; F32.9 Major depressive disorder, single episode, unspecified; E11.9 Type 2 diabetes mellitus without complications; L73.2 Hidradenitis suppurativa; R63.4 Abnormal weight loss; M06.9 Rheumatoid arthritis, unspecified; D47.3 Essential (hemorrhagic) thrombocythemia; D64.9 Anemia, unspecified; F17.210 Nicotine dependence, cigarettes, uncomplicated; G89.4 Chronic pain syndrome; Z68.21 Body mass index [BMI] 21.0-21.9, adult; I25.2 Old myocardial infarction; Z60.2 Problems related to living alone; Z79.4 Long term (current) use of insulin; Z79.899 Other long term (current) drug therapy; Z88.3 Allergy status to other anti-infective agents; Z88.2 Allergy status to sulfonamides; Z88.8 Allergy status to other drugs, medicaments and biological substances; Z79.84 Long term (current) use of oral hypoglycemic drugs; Z83.79 Family history of other diseases of the digestive system; Z93.3 Colostomy status; Z71.3 Dietary counseling and surveillance
CPT/HCPCS: 00902; 01610; 36415; 36569; 71045; 72193; 76937; 77001; 80048; 80053; 80202; 81001; 82533; 82565; 82962; 83605; 83735; 85025; 85027; 86140; 87040; 87070; 87075; 87077; 87086; 87186; 87205; 96361; 96365; 96366; 96375; 96376; 99285; A6266; C1769; G8978-GP; G8979-GP; J0290; J0692; J1170; J1335; J1642; J1650; J1815; J1885; J2250; J2270; J2543; J2704; J2920; J3010; J3370; J3490; J7030; J7060; S0119

== ENCOUNTER 2018-08-30 17:32 | Emergency (ER) | payer MEDICARE, MEDICAID ==
--- NOTE | 2018-08-30 21:10 | ER Document Report ---
ED Medical Screen (RME) - General Chief Complaint: Abdominal Pain Stated Complaint: ABDOMINAL PAIN Time Seen by Provider: 08/30/18 20:50 Primary Care Provider: DELROY CROUCH DO [Primary Care Provider] - Follow up as needed Notes: 52-year-old -Portuguese male with multiple medical comorbidities coming in tonight with multiple chief complaints including bilateral lower extremity edema which is new to him without any chest pain or shortness of breath. No previous history of heart failure. Also having abdominal pain which he notes is chronic. Has Crohn's disease. Has a colostomy. Feels like his belly is about to explode. I have treated and performed a rapid initial assessment of this patient. A comprehensive ED assessment and evaluation of the patient, analysis of test results and completion of medical decision making process will be conducted by additional ED providers. PHYSICAL EXAMINATION: GENERAL: Well-appearing, well-nourished and in no acute distress. A&Ox4. Patient appears uncomfortable LUNGS: Breath sounds clear to auscultation bilaterally and equal. No wheezes rales or rhonchi. HEART: Regular rate and rhythm without murmurs, rubs, gallops. ABDOMEN: Colostomy bag is present Extremities: 2+ bilateral lower extremity pitting edema TRAVEL OUTSIDE OF THE [place] IN LAST 30 DAYS: No - Related Data Allergies/Adverse Reactions: atropine Allergy (Verified 08/30/18 17:33) itching, "scratchy throat" diphenoxylate HCl [From Lomotil] Allergy (Verified 08/30/18 17:33) itching, hives erythromycin base [Erythromycin Base] Allergy (Verified 08/30/18 17:33) itching paroxetine HCl [From Paxil] Allergy (Verified 08/30/18 17:33) itching Sulfa (Sulfonamide Antibiotics) Allergy (Verified 08/30/18 17:33) Migraines, fatigue trimethoprim [From Bactrim] Allergy (Verified 08/30/18 17:33) itching, GI problems Past Medical History - Social History Frequency of alcohol use: None Drug Abuse: None - Past Medical History Cardiac Medical History: Reports: Hx Heart Attack - NOVEMBER 2014, Hx Hypertension Denies: Hx Coronary Artery Disease Pulmonary Medical History: Reports: Hx Asthma, Hx Pneumonia Denies: Hx Bronchitis, Hx COPD Neurological Medical History: Reports: Hx Seizures - pt denies . Denies: Hx Cerebrovascular Accident Endocrine Medical History: Reports: Hx Diabetes Mellitus Type 2 Renal/ Medical History: Denies: Hx Peritoneal Dialysis GI Medical History: Reports: Hx Crohn's Disease Musculoskeltal Medical History: Reports Hx Arthritis - RA, chronic pain Psychiatric Medical History: Reports: Hx Depression Past Surgical History: Reports: Hx Colostomy, Other - Multiple wound debridements over the last 2 months - Immunizations Hx Diphtheria, Pertussis, Tetanus Vaccination: No - Pt denies History of Influenza Vaccine for 04/2017 - 09/2017 Season: Yes Influenza Administration Date for 04/2017 - 09/2017 Season: 09/08/17 Physical Exam - Vital signs Vitals: Temp Pulse Resp BP Pulse Ox 99.4 F 110 H 16 122/67 98 08/30/18 18:08 08/30/18 18:08 08/30/18 18:08 08/30/18 18:08 08/30/18 18:08 Course - Vital Signs Vital signs: Temp Pulse Resp BP Pulse Ox 99.4 F 110 H 16 122/67 98 08/30/18 18:08 08/30/18 18:08 08/30/18 18:08 08/30/18 18:08 08/30/18 18:08 Doctor's Discharge - Discharge Referrals: DELROY CROUCH DO [Primary Care Provider] - Follow up as needed
[2018-08-30] MEDS ORDERED: OXYCODONE-ACETAMINOPHEN 5-325 MG TABLET PO ONE (21:42)
[2018-08-30 21:58] LABS: ABSOLUTE BASOPHILS # (AUTO) 0.3 10^3/uL (0.0-0.2); ABSOLUTE EOSINOPHILS # (AUTO) 0.9 10^3/uL (0.0-0.6); ABSOLUTE LYMPHOCYTES (AUTO) 4.3 10^3/uL (0.5-4.7); ABSOLUTE MONOCYTES (AUTO) 1.4 10^3/uL (0.1-1.4); ABSOLUTE NEUT (AUTO) 12.8 10^3/uL (1.7-8.2); BASOPHILS % (AUTO) 1.3 % (0-2); EOSINOPHILS % (AUTO) 4.6 % (0-6); HEMATOCRIT 30.9 % (37.9-51.0); HEMOGLOBIN 10.1 g/dL (13.5-17.0); MEAN CORPUSCULAR HGB CONC 32.5 g/dL (32.0-36.0); MEAN CORPUSCULAR VOLUME 77 fl (80-97); MONOCYTES % (AUTO) 7.3 % (3-13); PLATELET COUNT 750 10^3/uL (150-450); RED BLOOD COUNT 4.03 10^6/uL (4.35-5.55); RED CELL DISTRIBUTION WIDTH 19.7 % (11.5-14.0); SEGMENTED NEUTROPHILS % (AUTO) 64.8 % (42-78); TOTAL CELLS COUNTED % (AUTO) 100 %; WHITE BLOOD COUNT 19.7 10^3/uL (4.0-10.5)
[2018-08-30 22:11] LABS: ALANINE AMINOTRANSFERASE 18 U/L (21-72); ALBUMIN 3.8 g/dL (3.5-5.0); ALKALINE PHOSPHATASE 355 U/L (38-126); ANION GAP 13 (5-19); ASPARTATE AMINO TRANSFERASE 24 U/L (17-59); BILIRUBIN,DIRECT 0.2 mg/dL (0.0-0.4); BILIRUBIN,TOTAL 0.4 mg/dL (0.2-1.3); BLOOD UREA NITROGEN 8 mg/dL (7-20); CALCIUM 9.3 mg/dL (8.4-10.2); CARBON DIOXIDE 26 mmol/L (22-30); CHLORIDE 99 mmol/L (98-107); GLUCOSE 209 mg/dL (75-110); LIPASE 18.8 U/L (23-300); POTASSIUM 4.5 mmol/L (3.6-5.0); SODIUM 137.9 mmol/L (137-145); TOTAL PROTEIN 7.9 g/dL (6.3-8.2)
--- NOTE | 2018-08-30 22:14 | RADIOLOGY REPORT (SQ) ---
EXAM DESCRIPTION: XR ABDOMEN 2 VIEWS SUPINE ERECT COMPLETED DATE/TME: 08/30/2018 21:07 CLINICAL HISTORY: 52 years, Male, abd pain, hx crohns, colostomy, r/o obstruc COMPARISON: Abdominal series 05/01/2016 NUMBER OF VIEWS: 2 TECHNIQUE: Supine and erect views of the abdomen LIMITATIONS: None. FINDINGS: No free air under the hemidiaphragms. Rounded hyperdense structure in the mid abdomen likely reflects postsurgical change/colostomy. Similar findings were present previously.. There is gas and stool in the colon. Surgical clips left upper quadrant. IMPRESSION: Round hyperdense structure in the mid abdomen likely reflecting the patient's colostomy. Gas and stool in the colon. No free air. copyright 2010 [employer]- All Rights Reserved
[2018-08-30 23:57] LABS: APPEARANCE,URINE CLEAR; BILIRUBIN,URINE NEGATIVE (NEGATIVE); COLOR,URINE YELLOW; GLUCOSE, URINE NEGATIVE (NEGATIVE); KETONES,URINE NEGATIVE (NEGATIVE); LEUKOCYTE ESTERASE,URINE NEGATIVE (NEGATIVE); NITRITE,URINE NEGATIVE (NEGATIVE); PROTEIN,URINE 30 mg/dL (NEGATIVE); URINE SPECIFIC GRAVITY 1.017; UROBILINOGEN,URINE NEGATIVE mg/dL (<2.0)
--- NOTE | 2018-08-31 01:53 | ER Document Report ---
ED GI/ - General Chief Complaint: Abdominal Pain Stated Complaint: ABDOMINAL PAIN Time Seen by Provider: 08/31/18 01:01 Primary Care Provider: DELROY CROUCH DO [Primary Care Provider] - Follow up as needed Mode of Arrival: Wheelchair Information source: Patient Notes: HISTORY OF PRESENT ILLNESS: Patient is a 52-year-old male with a past medical history of multiple chronic conditions including diabetes, hypertension, coronary artery disease, Crohn's disease status post partial colectomy status post colostomy placement who presents with acute on chronic abdominal pain and swelling of his extremities. Location: Lower abdomen Onset: Chronic Alleviation: None Provocation: Movement Quality: "Aching, burning" Radiation: None Severity: Severe Timing: Constant History of abdominal surgery: Yes Associated symptoms: Denies fevers or chills, increased swelling or redness to both legs Last bowel movement: Output from ostomy has been normal REVIEW OF SYSTEMS: CONSTITUTIONAL : Denies fever or chills, no sweats. Denies recent illness. EENT: Denies eye, ear, throat, or mouth pain or symptoms. Denies nasal or sinus congestion. CARDIOVASCULAR: Denies chest pain. Denies swelling of the legs. RESPIRATORY: Denies cough, cold, or chest congestion. Denies shortness of breath or difficulty breathing. Denies wheezing. GASTROINTESTINAL: Positive for abdominal pain. Denies nausea, vomiting, or diarrhea. Denies constipation. GENITOURINARY: Denies difficulty urinating, painful urination, burning, frequency, or blood in urine. FEMALE GENITOURINARY: Denies vaginal bleeding, abnormal or irregular periods. MUSCULOSKELETAL: Positive for leg swelling. Denies neck or back pain or joint pain or swelling. SKIN: Denies rash or skin lesions. HEMATOLOGIC : Denies easy bruising or bleeding. LYMPHATIC: Denies swollen, enlarged glands. NEUROLOGICAL: Denies altered mental status or loss of consciousness. Denies headache. Denies weakness or paralysis or loss of use of either side. Denies problems with gait or speech. Denies sensory or motor loss. PSYCHIATRIC: Denies anxiety or stress or depression. All other systems reviewed and negative. PHYSICAL EXAMINATION: GENERAL: Tired-appearing, well-nourished and in no acute distress. HEAD: Atraumatic, normocephalic. No scalp deformity, depression, or crepitance. EYES: Pupils are 3 mm and equal/round/reactive to light, extraocular movements intact, sclera anicteric, conjunctiva are normal. ENT: Nares patent bilaterally, oropharynx. Moist mucous membranes. No tonsil hypertrophy. NECK: Normal range of motion, supple without lymphadenopathy. LUNGS: Breath sounds present, equal, and clear to auscultation bilaterally. No wheezes, rales, or rhonchi. HEART: Regular rate and rhythm without murmurs, rubs, or gallops. 2+ peripheral pulses. Normal capillary refill. ABDOMEN: Soft and nondistended, mild lower abdominal tenderness without peritoneal signs. There is an ostomy present in the right mid abdomen. Normoactive bowel sounds. No guarding, no rebound. No masses appreciated. BACK: Normal contour, no midline tenderness. Rectal exam deferred. GENITAL/PELVIC: Deferred. EXTREMITIES: 3+ edema to the bilateral extremities that is equal and symmetric, diffuse erythema without weeping or drainage. No cyanosis. NEUROLOGICAL: No focal neurological deficits. Moves all extremities spont aneously and on command. PSYCH: Normal mood, normal affect. No suicidal thoughts/ideations. No paris ocidal thoughts/ideations. No hallucinations. SKIN: Warm, dry, normal turgor, no rashes or lesions noted. ASSESSMENT AND PLAN: This patient is a 52-year-old male who presents with abdominal pain in the setting of Crohn's with chronic abdominal pain, also swelling and redness to the legs that most likely represents cellulitis. 1. Will obtain labs, urine, and CT scan of the abdomen/pelvis. 2. Will give IV fluids with morphine and vancomycin. TRAVEL OUTSIDE OF THE [place] IN LAST 30 DAYS: No - Related Data Allergies/Adverse Reactions: atropine Allergy (Verified 08/30/18 17:33) itching, "scratchy throat" diphenoxylate HCl [From Lomotil] Allergy (Verified 08/30/18 17:33) itching, hives erythromycin base [Erythromycin Base] Allergy (Verified 08/30/18 17:33) itching paroxetine HCl [From Paxil] Allergy (Verified 08/30/18 17:33) itching Sulfa (Sulfonamide Antibiotics) Allergy (Verified 08/30/18 17:33) Migraines, fatigue trimethoprim [From Bactrim] Allergy (Verified 08/30/18 17:33) itching, GI problems Past Medical History - General Information source: Patient - Social History Smoking Status: Current Every Day Smoker Chew tobacco use (# tins/day): No Frequency of alcohol use: None Drug Abuse: None Lives with: Family Family History: Reviewed & Not Pertinent, Other - Crohn's-sister Patient has suicidal ideation: No Patient has homicidal ideation: No - Past Medical History Cardiac Medical History: Reports: Hx Heart Attack - NOVEMBER 2014, Hx Hypertension Denies: Hx Coronary Artery Disease Pulmonary Medical History: Reports: Hx Asthma, Hx Pneumonia Denies: Hx Bronchitis, Hx COPD EENT Medical History: Reports: None Neurological Medical History: Reports: Hx Seizures - pt denies . Denies: Hx Cerebrovascular Accident Endocrine Medical History: Reports: Hx Diabetes Mellitus Type 2 Renal/ Medical History: Reports: None. Denies: Hx Peritoneal Dialysis Malignancy Medical History: Reports None GI Medical History: Reports: Hx Crohn's Disease Musculoskeletal Medical History: Reports Hx Arthritis - RA, chronic pain Skin Medical History: Reports None Psychiatric Medical History: Reports: Hx Depression Traumatic Medical History: Reports: None Infectious Medical History: Reports: None Past Surgical History: Reports: Hx Colostomy, Other - Multiple wound debridement s over the last 2 months - Immunizations Immunizations up to date: Yes Hx Diphtheria, Pertussis, Tetanus Vaccination: No - Pt denies History of Influenza Vaccine for 04/2017 - 09/2017 Season: Unknown Physical Exam - Vital signs Vitals: Temp Pulse Resp BP Pulse Ox 99.4 F 110 H 16 122/67 98 08/30/18 18:08 08/30/18 18:08 08/30/18 18:08 08/30/18 18:08 08/30/18 18:08 Course - Re-evaluation Re-evalutation: 08/31/18 04:29 CT scan does not show any acute intra-abdominal pathology. Labs are otherwise unremarkable. After the vancomycin is done, the patient will be discharged home with return precautions and follow-up. He voices understanding and agreeing with the plan. - Vital Signs Vital signs: Temp Pulse Resp BP Pulse Ox 99.4 F 110 H 16 122/67 98 08/30/18 18:08 08/30/18 18:08 08/30/18 18:08 08/30/18 18:08 08/30/18 18:08 - Laboratory Result Diagrams: 08/30/18 21:38 08/30/18 21:38 Laboratory results interpreted by me: 08/30/18 08/30/18 08/30/18 21:38 21:38 23:40 WBC 19.7 H RBC 4.03 L Hgb 10.1 L Hct 30.9 L MCV 77 L MCH 25.0 L RDW 19.7 H Plt Count 750 H Absolute Neutrophils 12.8 H Absolute Eosinophils 0.9 H Absolute Basophils 0.3 H Glucose 209 H ALT 18 L Alkaline Phosphatase 355 H Lipase 18.8 L Urine Protein 30 H Urine Ascorbic Acid 40 H - Diagnostic Test Radiology reviewed: Image reviewed, Reports reviewed Discharge - Discharge Clinical Impression: Peripheral edema Cellulitis Qualifiers: Site of cellulitis of extremity: lower extremity Laterality: unspecified laterality Condition: Good Disposition: HOME, SELF-CARE Instructions: Abdominal Pain ([facility]), Cellulitis ([facility]) Additional Instructions: You have been evaluated in the Emergency Department for chronic abdominal pain and both pain and swelling in your legs. While here, you had an ultrasound that was normal and a CAT scan that did not show any acute issues with your abdomen. It is now safe to be discharged home. Please follow-up with your primary physi mayur as instructed in 1 week. Return to the Emergency Department if you experience worsening pain, worsening redness or swelling of your legs, high fevers, or any other concerning symptoms. Prescriptions: Doxycycline Hyclate 100 mg PO BID #20 capsule Referrals: DELROY CROUCH DO [Primary Care Provider] - Follow up as needed Print Language: Syriac
--- NOTE | 2018-08-31 02:20 | RADIOLOGY REPORT (SQ) ---
EXAM DESCRIPTION: US EXTREMITY VEINS BILATERAL COMPLETED DATE/TME: 08/30/2018 21:34 CLINICAL HISTORY: 52 years, Male, bilateral swollen legs. COMPARISON: None. TECHNIQUE: Transverse and longitudinal sonographic images of the bilateral lower extremity deep venous system LIMITATIONS: None. FINDINGS: No visible areas of thrombus formation. Doppler and spectral analysis with color flow was utilized. Normal waveforms bilaterally. Normal compression and augmentation throughout. IMPRESSION: Negative for DVT copyright 2010 [employer]- All Rights Reserved
[2018-08-31] MEDS ORDERED: ONDANSETRON HCL INJ/PF 4 MG/2 ML SDV IV ONE (02:36)
[2018-08-31] MEDS ORDERED: MORPHINE SULFATE 10 MG/ML INJ IV ONE (02:36)
[2018-08-31] MEDS ORDERED: VANCOMYCIN HCL INJ 1000 MG VIAL IV ONE (02:36)
[2018-08-31] MEDS ORDERED: KETOROLAC TROMETHAMINE INJ/PF 30 MG/1 ML SDV ONE (04:11)
[2018-08-31] MEDS ORDERED: KETOROLAC TROMETHAMINE INJ/PF 30 MG/1 ML SDV IV ONE (04:14)
--- NOTE | 2018-08-31 04:19 | RADIOLOGY REPORT (SQ) ---
EXAM DESCRIPTION: CT ABDOMEN PELVIS WITH IV CONTRAST COMPLETED DATE/TME: 08/31/2018 02:36 CLINICAL HISTORY: 52 years, Male, Abdominal pain COMPARISON: Prior CT 01/28/2018 TECHNIQUE: 706 Images stored on PACS. All CT scanners at this facility use dose modulation, iterative reconstruction, and/or weight based dosing when appropriate to reduce radiation dose to as low as reasonably achievable (ALARA). [facility]: Dose Right [facility]: CareDose [facility]: Dose Right [facility]: Teradose 4D [facility]: Lover[employer] LIMITATIONS: None. FINDINGS: Limited evaluation of the lung bases is unremarkable. Osseous structures are grossly intact. Fatty infiltrative change to the liver. A normal spleen is not present. Multiple splenules in the left upper quadrant. The adrenal glands, pancreas, are unremarkable. Simple appearing left renal cyst. The gallbladder is present. Normal appendix. Ostomy near the midline of the upper abdomen with a fat-containing peristomal hernia. Large amount of stool in the colon. No evidence for bowel obstruction. No free air or free fluid. IMPRESSION: Negative for acute intra-abdominal/pelvic process. Midline colostomy with peristomal hernia containing fat. No evidence for bowel obstruction. Abundant stool in the colon. Fatty infiltrative change to the liver. TECHNICAL DOCUMENTATION: Quality ID # 436: Final reports with documentation of one or more dose reduction techniques (e.g., Automated exposure control, adjustment of the mA and/or kV according to patient size, use of iterative reconstruction technique) copyright 2010 [employer]- All Rights Reserved
[2018-08-31 06:22] VITALS: BP 129/87
== END 2018-08-31 06:27 | disposition home or self-care (01) ==
LOC: ER 17:32
DX: L03.119 Cellulitis of unspecified part of limb (principal); R60.0 Localized edema; K50.90 Crohn's disease, unspecified, without complications; E11.9 Type 2 diabetes mellitus without complications; I10 Essential (primary) hypertension; I25.10 Atherosclerotic heart disease of native coronary artery without angina pectoris; J45.909 Unspecified asthma, uncomplicated; F17.200 Nicotine dependence, unspecified, uncomplicated; Z90.49 Acquired absence of other specified parts of digestive tract; Z93.3 Colostomy status; Z88.8 Allergy status to other drugs, medicaments and biological substances; Z88.1 Allergy status to other antibiotic agents; Z88.2 Allergy status to sulfonamides
CPT/HCPCS: 99284; 96375; 96365; 36415; 83690; 85025; 80053; 81001; 93970; 74019; 74177; J1885; J2270; A9270; J2405; J3370

== ENCOUNTER 2019-03-19 02:32 | Inpatient (IN) | payer MEDICARE, MEDICAID ==
[2019-03-19] MEDS ORDERED: NORMAL SALINE 1000 ML 1,000 ML IV ONE ×2 (03:44→07:12)
[2019-03-19] MEDS ORDERED: MORPHINE SULFATE 10 MG/ML INJ IV ONE ×2 (03:45→06:08)
[2019-03-19] MEDS ORDERED: ONDANSETRON HCL INJ/PF 4 MG/2 ML SDV IV ONE (03:46)
--- NOTE | 2019-03-19 03:48 | ER Document Report ---
ED GI/ - General TRAVEL OUTSIDE OF THE [place] IN LAST 30 DAYS: No <SATYA JOHN - Last Filed: 03/19/19 08:06> <ANUSHA BALLARD - Last Filed: 03/19/19 13:19> - General Chief Complaint: Abdominal Pain Stated Complaint: ABDOMINAL PAIN Time Seen by Provider: 03/19/19 03:34 Notes: Patient is a 53-year-old male that comes to the emergency department for chief complaint of abdominal pain. He states that his intestines have protruded more out of the stoma into his ostomy bag and now it feels like there is a constant sharp pinching pain that is nauseating. He denies vomiting, he was still able to eat (last meal at 4 PM), he had a normal looking stool in the ostomy bag earlier today without blood. He denies fever. He states he had the colostomy bag performed because he had terrible hidradenitis that required surgery and they did not want stool passing over the area. He states he had surgery with this surgical group at [place]. Patient also has a history of Crohn's disease and has followed with gastroenterology Dr. Potter. (SATYA JOHN) - Related Data Allergies/Adverse Reactions: atropine Allergy (Verified 03/19/19 04:39) itching, "scratchy throat" diphenoxylate HCl [From Lomotil] Allergy (Verified 03/19/19 04:39) itching, hives erythromycin base [Erythromycin Base] Allergy (Verified 03/19/19 04:39) itching paroxetine HCl [From Paxil] Allergy (Verified 03/19/19 04:39) itching Sulfa (Sulfonamide Antibiotics) Allergy (Verified 03/19/19 04:39) Migraines, fatigue trimethoprim [From Bactrim] Allergy (Verified 03/19/19 04:39) itching, GI problems Past Medical History - General Information source: Patient - Social History Smoking Status: Unknown if Ever Smoked Drug Abuse: None Lives with: Alone Family History: Reviewed & Not Pertinent, Other - Crohn's-sister - Past Medical History Cardiac Medical History: Reports: Hx Heart Attack - NOVEMBER 2014, Hx Hypertension Denies: Hx Coronary Artery Disease Pulmonary Medical History: Reports: Hx Asthma, Hx Pneumonia Denies: Hx Bronchitis, Hx COPD Neurological Medical History: Reports: Hx Seizures - pt denies . Denies: Hx Cerebrovascular Accident Endocrine Medical History: Reports: Hx Diabetes Mellitus Type 2 Renal/ Medical History: Denies: Hx Peritoneal Dialysis GI Medical History: Reports: Hx Crohn's Disease Musculoskeletal Medical History: Reports Hx Arthritis - RA, chronic pain Psychiatric Medical History: Reports: Hx Depression Past Surgical History: Reports: Hx Colostomy, Other - Multiple wound debridements over the last 2 months - Immunizations Immunizations up to date: Yes Hx Diphtheria, Pertussis, Tetanus Vaccination: No - Pt denies <SATYA JOHN - Last Filed: 03/19/19 08:06> Review of Systems - Review of Systems Constitutional: No symptoms reported EENT: No symptoms reported Cardiovascular: No symptoms reported Respiratory: No symptoms reported Gastrointestinal: See HPI Genitourinary: No symptoms reported Male Genitourinary: No symptoms reported Musculoskeletal: No symptoms reported Skin: No symptoms reported Hematologic/Lymphatic: No symptoms reported Neurological/Psychological: No symptoms reported <SATYA JOHN - Last Filed: 03/19/19 08:06> Physical Exam <SATYA JOHN - Filed: 03/19/19 08:06> - Vital signs Vitals: Temp Pulse Resp BP Pulse Ox 98.3 F 102 H 18 136/77 H 99 03/19/19 02:40 03/19/19 02:40 03/19/19 02:40 03/19/19 02:40 03/19/19 02:40 - Notes Notes: GENERAL: Alert, interacts well. HEAD: Normocephalic, atraumatic. EYES: Pupils equal, round, and reactive to light. Extraocular movements intact. ENT: Oral mucosa dry tongue midline. Oropharynx unremarkable. NECK: Full range of motion. Supple. Trachea midline. LUNGS: Clear to auscultation bilaterally, no wheezes, rales, or rhonchi. No respiratory distress. HEART: Regular rate and rhythm. No murmur ABDOMEN: Colostomy bag present in the mid to right abdomen. There is bowel in the ostomy bag which is pink in stool which appears normal. Patient complains with palpation of the abdomen generally and diffusely but there is no severe tenderness or overt guarding. No rigidity. GENITOURINARY: Deferred EXTREMITIES: Moves all 4 extremities spontaneously. No edema, normal radial and dorsalis pedis pulses bilaterally. No cyanosis. BACK: no cervical, thoracic, lumbar midline tenderness.Normal distal neurovascular exam. Moves all extremities in full range of motion. NEUROLOGICAL: Alert and oriented x3. Normal speech. Cranial nerves II through XII grossly intact. PSYCH: Intermittently irritable SKIN: Warm, dry, normal turgor. No rashes or lesions noted. (SATYA JOHN) Course - Laboratory Result Diagrams: 03/19/19 04:15 03/19/19 04:15 <SATYA JOHN - Last Filed: 03/19/19 08:06> - Laboratory Result Diagrams: 03/19/19 04:15 03/19/19 04:15 <ANUSHA BALLARD - Last Filed: 03/19/19 13:19> - Re-evaluation Re-evalutation: Patient complains regardless of where I press on the abdomen. There does appear to be bowel in his colostomy bag although the tissue appears pink and there is no blood in the bag. Patient is not in severe distress. Vital signs are unremarkable except for borderline tachycardia initially. He is not febrile. Abdomen is not rigid and tenderness seems diffuse. CBC shows leukocytosis at 23,000 with elevation of neutrophils but no bandemia. Chemistry shows low bicarbonate 17. Lipase in the 400s. Nonspecific otherwise. Urinalysis still pending. I called and discussed with Dr. Valladares, general surgeon on-call. He did come evaluate the patient. He states that patient has a history of Crohn's disease with colitis and proctitis, he also had to the ostomy bag placed years ago. He states he recommends that a CAT scan with oral and IV contrast, stool testing, chest x-ray. He states that if the CAT scan shows concerning surgical abnormality he may become a surgical case, however otherwise he most likely will be a medicine case for colitis secondary to his Crohn's. 03/19/19 08:06 Introduced to Jamel Arndt PA-C at bedside, pending CAT scan and disposition. (SATYA JOHN) 03/19/19 10:54 I accepted the patient from Satya John PA-C. Patient was standing at the bedside and his intestines were telescoping somewhat out of his ostomy bag. He completed his oral contrast and CT abdomen/pelvis with oral and IV contrast was completed which did not show any evidence of colitis or inflammatory process, no evidence of an SBO, it was a normal exam. I called the hospitalist and explained to him that the patient has intractable pain and patient is positive for C. difficile. The hospitalist, Jaylon Hunt, is going to come and assess the patient formally at the bedside. 03/19/19 13:18 Patient was admitted to the medical floor. (ANUSHA BALLARD) - Vital Signs Vital signs: Temp Pulse Resp BP Pulse Ox 98.3 F 102 H 11 L 131/89 H 99 03/19/19 02:40 03/19/19 02:40 03/19/19 07:01 03/19/19 07:01 03/19/19 07:01 - Laboratory Laboratory results interpreted by me: 03/19/19 03/19/19 03/19/19 04:15 04:15 05:03 WBC 23.1 H Hgb 11.3 L Hct 35.8 L MCV 68 L MCH 21.5 L MCHC 31.7 L RDW 22.0 H Plt Count 657 H Metamyelocytes % 1 H Abs Neuts (Manual) 12.5 H Abs Lymphs (Manual) 8.5 H Absolute Eos (Manual) 0.9 H Chloride 108 H Carbon Dioxide 17 L Alkaline Phosphatase 235 H Lipase 409.4 H Urine Protein 100 H Urine Blood SMALL H Discharge <SATYA JOHN - Last Filed: 03/19/19 08:06> - Discharge Admitting Provider: Sriram (Hospitalist) Unit Admitted: Medical Floor <ANUSHA BALLARD - Last Filed: 03/19/19 13:19> - Discharge Clinical Impression: Intractable pain, Complication of ostomy Condition: Stable Disposition: ADMITTED INPATIENT
[2019-03-19 04:33] LABS: HEMATOCRIT 35.8 % (37.9-51.0); HEMOGLOBIN 11.3 g/dL (13.5-17.0); MEAN CORPUSCULAR HEMOGLOBIN 21.5 pg (27.0-33.4); MEAN CORPUSCULAR HGB CONC 31.7 g/dL (32.0-36.0); MEAN CORPUSCULAR VOLUME 68 fl (80-97); PLATELET COUNT 657 10^3/uL (150-450); RED BLOOD COUNT 5.29 10^6/uL (4.35-5.55); WHITE BLOOD COUNT 23.1 10^3/uL (4.0-10.5)
[2019-03-19 04:53] LABS: ALBUMIN 3.9 g/dL (3.5-5.0); ALKALINE PHOSPHATASE 235 U/L (38-126); ANION GAP 15 (5-19); ASPARTATE AMINO TRANSFERASE 40 U/L (17-59); BILIRUBIN,DIRECT 0.2 mg/dL (0.0-0.4); BILIRUBIN,TOTAL 0.4 mg/dL (0.2-1.3); BLOOD UREA NITROGEN 15 mg/dL (7-20); CALCIUM 9.1 mg/dL (8.4-10.2); CARBON DIOXIDE 17 mmol/L (22-30); CHLORIDE 108 mmol/L (98-107); GLUCOSE 108 mg/dL (75-110); POTASSIUM 3.9 mmol/L (3.6-5.0); TOTAL PROTEIN 8.1 g/dL (6.3-8.2)
[2019-03-19 05:20] LABS: ABSOLUTE LYMPHOCYTES# (MANUAL) 8.5 10^3/uL (0.5-4.7); ABSOLUTE MONOCYTES # (MANUAL) 1.2 10^3/uL (0.1-1.4); ANISOCYTOSIS 3+; BAND NEUTROPHILS % (MANUAL) 3 % (3-5); BASOPHILS % (MANUAL) 0 % (0-2); EOSINOPHILS % (MANUAL) 4 % (0-6); LYMPHOCYTES % (MANUAL) 37 % (13-45); METAMYELOCYTES % (MANUAL) 1 % (0); MONOCYTES % (MANUAL) 5 % (3-13); SEGMENTED NEUTROPHILS % (MAN) 50 % (42-78); TOTAL CELLS COUNTED 100
[2019-03-19 05:21] LABS: PLATELET COMMENT INCREASED
[2019-03-19 05:43] LABS: APPEARANCE,URINE CLEAR; BILIRUBIN,URINE NEGATIVE (NEGATIVE); COLOR,URINE YELLOW; GLUCOSE, URINE NEGATIVE (NEGATIVE); KETONES,URINE NEGATIVE (NEGATIVE); LEUKOCYTE ESTERASE,URINE NEGATIVE (NEGATIVE); NITRITE,URINE NEGATIVE (NEGATIVE); PROTEIN,URINE 100 mg/dL (NEGATIVE); URINE SPECIFIC GRAVITY 1.024; UROBILINOGEN,URINE NEGATIVE mg/dL (<2.0)
[2019-03-19] MEDS: NORMAL SALINE 1000 ML 1,000 ML IV PRN ×2 (06:16→12:56)
--- NOTE | 2019-03-19 07:17 | RADIOLOGY REPORT (SQ) ---
CLINICAL HISTORY: cough, leukocytosis COMPARISON: None. TECHNIQUE: XR CHEST 1 VIEW 03/19/2019 6:31 AM CDT FINDINGS: Cardiac silhouette is normal in size. Lungs are clear without consolidation, atelectasis, mass or edema. There is no pleural effusion. There is no pneumothorax. There are no acute osseous findings. IMPRESSION: Clear lungs.
[2019-03-19] MEDS ORDERED: FENTANYL CITRATE INJ/PF 100 MCG/2 ML AMPUL IV ONE (09:01)
--- NOTE | 2019-03-19 09:23 | RADIOLOGY REPORT (SQ) ---
EXAM DESCRIPTION: CT ABD/PELVIS WITH IV ORAL COMPLETED DATE/TIME: 03/19/2019 8:48 am REASON FOR STUDY: abd pain, ? bowel hernia through ostomy COMPARISON: 01/28/2018 TECHNIQUE: CT scan of the abdomen and pelvis performed using helical scanning technique with dynamic intravenous contrast injection. Additional oral enteric contrast. Images reviewed with lung, soft tissue, and bone windows. Reconstructed coronal and sagittal MPR images reviewed. Delayed images for evaluation of the urinary system also acquired. All images stored on PACS. All CT scanners at this facility use dose modulation, iterative reconstruction, and/or weight based d osing when appropriate to reduce radiation dose to as low as reasonably achievable (ALARA). [facility]: Dose Right [facility]: CareDose [facility]: Dose Right [facility]: Teradose 4D [facility]: StartSampling CONTRAST TYPE AND DOSE: contrast/concentration: Isovue 350.00 mg/ml; Total Contrast Delivered: 78.0 ml; Total Saline Delivered: 64.1 ml RENAL FUNCTION: GFR > 60. RADIATION DOSE: CT Rad equipment meets quality standard of care and radiation dose reduction techniq ues were employed. CTDIvol: 5.7 - 7.6 mGy. DLP: 671 mGy-cm.. LIMITATIONS: None. FINDINGS: LOWER CHEST: No significant findings. No nodules or infiltrates. LIVER: Normal size. No masses. No dilated ducts. SPLEEN: Normal size. No focal lesions. PANCREAS: No masses. No significant calcifications. No adjacent inflammation or peripancreatic fluid collections. Pancreatic duct not dilated. GALLBLADDER: No identified stones by CT criteria. No inflammatory changes to suggest cholecystitis. ADRENAL GLANDS: No significant masses or asymmetry. RIGHT KIDNEY AND URETER: No solid masses. No significant calcifications. No hydronephrosis or hyd roureter. LEFT KIDNEY AND URETER: No solid masses. No significant calcifications. No hydronephrosis or hydr oureter. AORTA AND VESSELS: No aneurysm. No dissection. Renal arteries, SMA, celiac without stenosis. RETROPERITONEUM: No retroperitoneal adenopathy, hemorrhage or masses. BOWEL AND PERITONEAL CAVITY: Redemonstrated transverse colon loop ostomy. No masses or inflammatory changes. No free fluid or peritoneal masses. APPENDIX: Normal. PELVIS: No mass. No free fluid. Normal bladder. ABDOMINAL WALL: No masses. No significant parastomal hernia. BONES: No significant or acute findings. OTHER: No other significant finding. IMPRESSION: Redemonstrated transverse colon loop ostomy. No evidence of significant parastomal lisa ia. No acute CT findings of the abdomen or pelvis to explain abdominal pain. TECHNICAL DOCUMENTATION: JOB ID: [id number] Quality ID # [id number]: Final reports with documentation of one or more dose reduction techniques (e.g., Au tomated exposure control, adjustment of the mA and/or kV according to patient size, use of iterative reconstruction technique) 2010 [employer]- All Rights Reserved Reading location - IP/workstation name: [email or web address]
[2019-03-19 10:06] LABS: C DIFFICILE GDH POSITIVE (NEGATIVE)
[2019-03-19] MEDS ORDERED: NORMAL SALINE 1000 ML 1,000 ML IV PRN (11:40)
--- NOTE | 2019-03-19 11:46 | Progress Note Acknowledgement ---
Progress Note Acknowledgement Progess Note Acknowledgement: I, the undersigned member of the medical staff with appropriate privileges and with supervisory authority over [Denny Hunt], a dependent practice allied health professional, acknowledge that I have reviewed the progress notes entered on this patient, and in my professional judgment believe that the assessment made and/or any care evidenced was appropriate
--- NOTE | 2019-03-19 11:56 | PDOC H&P ---
History of Present Illness Admission Date/PCP: 03/19/2019 DELROY CROUCH DO Patient complains of: Abdominal pain History of Present Illness: TIA VILLANUEVA is a 53 year old male who [facility] chief complaint of abdominal pain. He states that his testing to be protruding through his stoma into his ostomy bag and now feels like there is a constant sharp pinching pain that is nauseating. He denies vomiting. He has been unable to eat since yesterday afternoon. He states he seen normal looking stool in his ostomy earlier today without blood. He denies any fevers or chills. 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 Patient also has a history of Crohn's disease. Patient has been evaluated by the surgical group at [place]. He had no treatment prior to arrival to the ER all oral intake been aggravating factor. Past Medical History Cardiac Medical History: Reports: Myocardial Infarction - NOVEMBER 2014, Hypertension Denies: Coronary Artery Disease Pulmonary Medical History: Reports: Asthma, Pneumonia Denies: Bronchitis, Chronic Obstructive Pulmonary Disease (COPD) Neurological Medical History: Reports: Seizures - pt denies Endocrine Medical History: Reports: Diabetes Mellitus Type 2 GI Medical History: Reports: Crohn's Disease Musculoskeltal Medical History: Reports: Arthritis - RA, chronic pain Psychiatric Medical History: Reports: Depression Hematology: Reports: Anemia Past Surgical History Past Surgical History: Reports: Colostomy, Other - Multiple wound debridements over the last 2 months Social History Lives with: Alone Smoking Status: Current Every Day Smoker Cigarettes Packs Per Day: 0.5 Frequency of Alcohol Use: Rare Hx Recreational Drug Use: No Drugs: None Hx Prescription Drug Abuse: No - Advance Directive Resuscitation Status: Full Code Family History Family History: Other - Crohn's-sister Parental Family History Reviewed: Yes Children Family History Reviewed: Yes Sibling(s) Family History Reviewed.: Yes Medication/Allergy Allergies/Adverse Reactions: atropine Allergy (Verified 03/19/19 04:39) itching, "scratchy throat" diphenoxylate HCl [From Lomotil] Allergy (Verified 03/19/19 04:39) itching, hives erythromycin base [Erythromycin Base] Allergy (Verified 03/19/19 04:39) itching paroxetine HCl [From Paxil] Allergy (Verified 03/19/19 04:39) itching Sulfa (Sulfonamide Antibiotics) Allergy (Verified 03/19/19 04:39) Migraines, fatigue trimethoprim [From Bactrim] Allergy (Verified 03/19/19 04:39) itching, GI problems Review of Systems Constitutional: ABSENT: chills, fever(s), headache(s), weight gain, weight loss Eyes: ABSENT: visual disturbances Ears: ABSENT: hearing changes Cardiovascular: ABSENT: chest pain, dyspnea on exertion, edema, orthropnea, palpitations Respiratory: ABSENT: cough, hemoptysis Gastrointestinal: PRESENT: abdominal pain, nausea. ABSENT: constipation, diarrhea, hematemesis, hematochezia, vomiting Genitourinary: ABSENT: dysuria, hematuria Musculoskeletal: ABSENT: joint swelling Integumentary: ABSENT: rash, wounds Neurological: ABSENT: abnormal gait, abnormal speech, confusion, dizziness, focal weakness, syncope Psychiatric: ABSENT: anxiety, depression, homidical ideation, suicidal ideation Endocrine: ABSENT: cold intolerance, heat intolerance, polydipsia, polyuria Hematologic/Lymphatic: ABSENT: easy bleeding, easy bruising Physical Exam Vital Signs: Temp Pulse Resp BP Pulse Ox 98.3 F 102 H 11 L 131/89 H 99 03/19/19 02:40 03/19/19 02:40 03/19/19 07:01 03/19/19 07:01 03/19/19 07:01 Intake & Output 03/18/19 03/19/19 03/20/19 06:59 06:59 06:59 Intake Total 1000 1254 Balance 1000 1254 Weight 67.7 kg General appearance: PRESENT: no acute distress, well-developed, well-nourished Head exam: PRESENT: atraumatic, normocephalic Eye exam: PRESENT: conjunctiva pink, EOMI, PERRLA. ABSENT: scleral icterus Ear exam: PRESENT: normal external ear exam Mouth exam: PRESENT: moist, tongue midline Neck exam: ABSENT: carotid bruit, JVD, lymphadenopathy, thyromegaly Respiratory exam: PRESENT: clear to auscultation [place]. ABSENT: rales, rhonchi, wheezes Cardiovascular exam: PRESENT: RRR. ABSENT: diastolic murmur, rubs, systolic murmur Pulses: PRESENT: normal dorsalis pedis pul Vascular exam: PRESENT: normal capillary refill GI/Abdominal exam: PRESENT: hyperactive bowel sounds, normal bowel sounds, soft, other - Colostomy with ostomy. ABSENT: distended, guarding, mass, org anolmegaly, rebound, tenderness Rectal exam: PRESENT: deferred Extremities exam: PRESENT: full ROM. ABSENT: calf tenderness, clubbing, pedal edema Neurological exam: PRESENT: alert, awake, oriented to person, oriented to place, oriented to time, oriented to situation, CN II-XII grossly intact. ABSENT: motor sensory deficit Psychiatric exam: PRESENT: appropriate affect, normal mood. ABSENT: homicidal ideation, suicidal ideation Skin exam: PRESENT: dry, intact, warm. ABSENT: cyanosis, rash Results Laboratory Results: 03/19/19 04:15 03/19/19 04:15 03/19/19 03/19/19 03/19/19 04:15 04:15 04:15 WBC 23.1 H RBC 5.29 Hgb 11.3 L Hct 35.8 L MCV 68 L MCH 21.5 L MCHC 31.7 L RDW 22.0 H Plt Count 657 H Seg Neutrophils % Not Reportable Sodium 140.0 Potassium 3.9 Chloride 108 H Carbon Dioxide 17 L Anion Gap 15 BUN 15 Creatinine 0.80 Est GFR ( Amer) > 60 Glucose 108 Lactic Acid 1.3 Calcium 9.1 Total Bilirubin 0.4 AST 40 Alkaline Phosphatase 235 H Total Protein 8.1 Albumin 3.9 Lipase 409.4 H Urine Color Urine Appearance Urine pH Ur Specific [place] Urine Protein Urine Glucose (UA) Urine Ketones Urine Blood Urine Nitrite Ur Leukocyte Esterase Urine WBC (Auto) Urine RBC (Auto) Stool for White Cells Stl C.difficile Tox PCR 03/19/19 03/19/19 03/19/19 05:03 08:05 08:05 WBC RBC Hgb Hct MCV MCH MCHC RDW Plt Count Seg Neutrophils % Sodium Potassium Chloride Carbon Dioxide Anion Gap BUN Creatinine Est GFR ( Amer) Glucose Lactic Acid Calcium Total Bilirubin AST Alkaline Phosphatase Total Protein Albumin Lipase Urine Color YELLOW Urine Appearance CLEAR Urine pH 6.0 Ur Specific [place] 1.024 Urine Protein 100 H Urine Glucose (UA) NEGATIVE Urine Ketones NEGATIVE Urine Blood SMALL H Urine Nitrite NEGATIVE Ur Leukocyte Esterase NEGATIVE Urine WBC (Auto) 2 Urine RBC (Auto) 2 Stool for White Cells NO WBCs SEEN Stl C.difficile Tox PCR Cancelled 03/19/19 08:05 WBC RBC Hgb Hct MCV MCH MCHC RDW Plt Count Seg Neutrophils % Sodium Potassium Chloride Carbon Dioxide Anion Gap BUN Creatinine Est GFR ( Amer) Glucose Lactic Acid Calcium Total Bilirubin AST Alkaline Phosphatase Total Protein Albumin Lipase Urine Color Urine Appearance Urine pH Ur Specific [place] Urine Protein Urine Glucose (UA) Urine Ketones Urine Blood Urine Nitrite Ur Leukocyte Esterase Urine WBC (Auto) Urine RBC (Auto) Stool for White Cells Stl C.difficile Tox PCR POSITIVE Impressions: Abdomen/Pelvis CT 03/19/19 00:00 IMPRESSION: Redemonstrated transverse colon loop ostomy. No evidence of significant parastomal hernia. No acute CT findings of the abdomen or pelvis to explain abdominal pain. Chest X-Ray 03/19/19 06:31 IMPRESSION: Clear lungs. Assessment and Plan - Diagnosis (1) Clostridium difficile colitis Is this a current diagnosis for this admission?: Yes Plan: 03/19/2019-admit to medical surgical. We will keep patient n.p.o. at this time as he does have a corresponding acute pancreatitis. Will give patient vancomycin oral 250 mg every 6 hours. We will continue to follow. Patient does not have toxic megacolon this time. Does have hyperactive bowel sounds. (2) Acute pancreatitis Is this a current diagnosis for this admission?: Yes Plan: 03/19/2019-lipase 400. We will keep patient n.p.o. hydrate with normal saline 125 mL an hour. Dilaudid 1 mg IV every 3 hours as needed pain. Zofran 4 mg IV airam ry 8 hours as needed nausea and vomiting. Will repeat lipase in a.m. (3) Anemia Qualifiers: Anemia type: due to chronic kidney disease Chronic kidney disease stage: unspecified stage Qualified Code(s): N18.9 - Chronic kidney disease, unspecified; D63.1 - Anemia in chronic kidney disease; D63.1 - Anemia in chronic kidney disease Is this a current diagnosis for this admission?: Yes Plan: 03/19/2019-most likely iron deficiency in nature as patient does have low indices. Will obtain iron study in a.m. Treat as appropriate (4) Leukocytosis (leucocytosis) Is this a current diagnosis for this admission?: Yes Plan: 03/19/2019-most likely secondary to his C. difficile colitis. Vancomycin 250 mg p.o. every 6 hours. - Time Time Spent with patient: 15-24 minutes - Inpatient Certification Based on my medical assessment, after consideration of the patient's comorbidities, presenting symptoms, or acuity I expect that the services needed warrant INPATIENT care.: Yes I certify that my determination is in accordance with my understanding of Medicare's requirements for reasonable and necessary INPATIENT services [42 CFR 412.3e].: Yes Medical Necessity: Other - IV fluids, IV pain control
[2019-03-19] MEDS ORDERED: VANCOMYCIN HCL INJ 500 MG VIAL PO SCH ×2 (12:00→18:00)
[2019-03-19] MEDS: HYDROMORPHONE HCL INJ/PF 2 MG/ML AMPULE IV PRN ×3 (12:55→20:32)
--- NOTE | 2019-03-19 14:00 | PDOC CONSULTATION ---
Consultation Consult Date: 03/19/19 Provider Consulted: NAHID UNDERWOOD Consult reason:: prolapsed colostomy History of Present Illness Admission Date/PCP: DELROY CROUCH DO History of Present Illness: TIA VILLANUEVA is a 53 year old male, with a history of Crohn's proctitis, severe perineal disease with multiple abscesses, transverse loop colostomy with prolapse reducible, admitted May 2018 for severe perineal disease and abscesses admitted for almost 1 month and discharged to LT[facility] on June 23, 2018. The patient underwent colonoscopy in September [address] Potter negative findings. Return to the emergency room complaining of abdominal discomfort and liquid stools. Blood cell count has been found to be elevated (23,000). There is elevation of amylase (about 403). No other complaints. Past Medical History Cardiac Medical History: Reports: Myocardial Infarction - NOVEMBER 2014, Hypertension Denies: Coronary Artery Disease Pulmonary Medical History: Reports: Asthma, Pneumonia Denies: Bronchitis, Chronic Obstructive Pulmonary Disease (COPD) Neurological Medical History: Reports: Seizures - pt denies Endocrine Medical History: Reports: Diabetes Mellitus Type 2 GI Medical History: Reports: Crohn's Disease Musculoskeltal Medical History: Reports: Arthritis - RA, chronic pain Psychiatric Medical History: Reports: Depression Hematology: Reports: Anemia Past Surgical History Past Surgical History: Reports: Colostomy - Loop transverse colostomy done prior to 2015,, Other - Multiple perineal wound debridements in MayJune 2018; Colonoscopy Social History Smoking Status: Current Every Day Smoker Frequency of Alcohol Use: Rare Hx Recreational Drug Use: No Drugs: None Hx Prescription Drug Abuse: No Family History Family History: Reviewed & Not Pertinent, Other - Crohn's-sister Parental Family History Reviewed: No Children Family History Reviewed: No Sibling(s) Family History Reviewed.: No Medication/Allergy Home Medications: Albuterol Sulfate [Albuterol Sulfate Hfa] 2 puff IH Q6HP PRN 03/19/19 Buprenorphine HCl [Subutex 2 mg Sl Tablet] 2 mg SL TID 03/19/19 Celecoxib [Celebrex 100 mg Capsule] 100 mg PO BID 03/19/19 Doxycycline Hyclate [Vibramycin 100 mg Tablet] 100 mg PO BID 03/19/19 Duloxetine HCl [Cymbalta] 60 mg PO BIDP PRN 03/19/19 Gabapentin [Neurontin] 1,200 mg PO BID 03/19/19 Ondansetron HCl [Zofran 8 mg Tablet] 8 mg PO BIDP PRN 03/19/19 Oxycodone HCl [Oxy-Ir 5 mg Tablet] 30 mg PO Q4HP PRN 03/19/19 Allergies/Adverse Reactions: atropine Allergy (Verified 03/19/19 04:39) itching, "scratchy throat" diphenoxylate HCl [From Lomotil] Allergy (Verified 03/19/19 04:39) itching, hives erythromycin base [Erythromycin Base] Allergy (Verified 03/19/19 04:39) itching paroxetine HCl [From Paxil] Allergy (Verified 03/19/19 04:39) itching Sulfa (Sulfonamide Antibiotics) Allergy (Verified 03/19/19 04:39) Migraines, fatigue trimethoprim [From Bactrim] Allergy (Verified 03/19/19 04:39) itching, GI problems Physical Exam Vital Signs: Temp Pulse Resp BP Pulse Ox 98.3 F 102 H 21 H 134/90 H 99 03/19/19 02:40 03/19/19 02:40 03/19/19 06:44 03/19/19 06:44 03/19/19 02:40 Intake & Output 03/17/19 03/18/19 03/19/19 06:59 06:59 06:59 Intake Total 1000 Balance 1000 Weight 67.7 kg General appearance: PRESENT: no acute distress, thin Head exam: PRESENT: atraumatic Eye exam: PRESENT: EOMI Mouth exam: PRESENT: neck supple Teeth exam: PRESENT: poor dentation Neck exam: PRESENT: full ROM Respiratory exam: PRESENT: clear to auscultation [place] Cardiovascular exam: PRESENT: RRR GI/Abdominal exam: PRESENT: hypoactive bowel sounds, soft, other - Midline transverse colostomy herniated but reducible: Colostomy bag filled with liquid stools Rectal exam: PRESENT: other - No drainage or stools identified multiple old surgical scars as well as scarring from severe perineal disease, no drainage or stools identified Extremities exam: PRESENT: full ROM Musculoskeletal exam: PRESENT: full ROM Neurological exam: PRESENT: alert, altered, oriented to time, oriented to situation Focused psych exam: PRESENT: restlessness Skin exam: PRESENT: warm, other - See perineal exam above Results Laboratory Results: 03/19/19 04:15 03/19/19 04:15 03/19/19 03/19/19 03/19/19 04:15 04:15 04:15 WBC 23.1 H RBC 5.29 Hgb 11.3 L Hct 35.8 L MCV 68 L MCH 21.5 L MCHC 31.7 L RDW 22.0 H Plt Count 657 H Seg Neutrophils % Not Reportable Sodium 140.0 Potassium 3.9 Chloride 108 H Carbon Dioxide 17 L Anion Gap 15 BUN 15 Creatinine 0.80 Est GFR ( Amer) > 60 Glucose 108 Lactic Acid 1.3 Calcium 9.1 Total Bilirubin 0.4 AST 40 Alkaline Phosphatase 235 H Total Protein 8.1 Albumin 3.9 Lipase 409.4 H Urine Color Urine Appearance Urine pH Ur Specific [place] Urine Protein Urine Glucose (UA) Urine Ketones Urine Blood Urine Nitrite Ur Leukocyte Esterase Urine WBC (Auto) Urine RBC (Auto) 03/19/19 05:03 WBC RBC Hgb Hct MCV MCH MCHC RDW Plt Count Seg Neutrophils % Sodium Potassium Chloride Carbon Dioxide Anion Gap BUN Creatinine Est GFR ( Amer) Glucose Lactic Acid Calcium Total Bilirubin AST Alkaline Phosphatase Total Protein Albumin Lipase Urine Color YELLOW Urine Appearance CLEAR Urine pH 6.0 Ur Specific [place] 1.024 Urine Protein 100 H Urine Glucose (UA) NEGATIVE Urine Ketones NEGATIVE Urine Blood SMALL H Urine Nitrite NEGATIVE Ur Leukocyte Esterase NEGATIVE Urine WBC (Auto) 2 Urine RBC (Auto) 2 Assessment & Plan - Diagnosis (1) Leukocytosis (leucocytosis) Is this a current diagnosis for this admission?: Yes (2) Colostomy prolapse Is this a current diagnosis for this admission?: Yes (3) Crohn's disease Qualifiers: Digestive disease complication type: other complication Is this a current diagnosis for this admission?: Yes - Plan Summary Plan Summary: Assessment: Abdominal discomfort History of Crohn's disease with severe perineal disease Status post a transverse loop colostomy done prior to 2015 done because of severe perineal disease most likely due to his Crohn's disease Status post colonoscopy in September [address] Potter with negative findings Recent hospitalization with multiple perineal and groin abscess debridements in May 2018 followed by transfer to LTAC in June 2018 Currently, the patient presents with leukocytosis (23,100) Elevated amylase (409) Physical exam demonstrates a transverse colostomy hernia, reducible without evidence of bowel compromise Colostomy bag filled with liquid stools CT scan abdomen pelvis with IV and oral contrast: negative except for old transverse colostomy Chest x-ray two-view: negative Urinalysis: negative except for large proteine Stools positive for C. difficile, Stools for white blood cells, culture, ova and parasite= pending Plan: Herniated transverse colostomy is not incarcerated and it reduces itself once the patient lies down or is gently pushed. No repair planned due to the patient IBD and poor compliance and poor general conditions. No acute general surgery issues identified and no intervention planned at this time. I will sign off. Please, call me for questions.
--- NOTE | 2019-03-19 14:45 | Progress Note ---
Provider Note Provider Note: 03/19/2019-patient showing positive GDH antigen and a positive PCR which means he has a chronic infection. Her infectious control nurse should not treat this acutely.I have DC'd p.o. vancomycin
[2019-03-19] MEDS: HEPARIN SOD (PORCINE) 5,000 UNIT/ML 1 ML VIAL SUBCUT SCH ×2 (17:30→23:04)
[2019-03-19] MEDS ORDERED: DEXTROSE 50%-WATER 25 GM/50 ML DISP.SYRIN IV ONE (18:37)
[2019-03-19] MEDS ORDERED: DEXTROSE 5%-NORMAL SALINE 1,000 ML IV PRN (19:04)
[2019-03-20] MEDS: ONDANSETRON HCL INJ/PF 4 MG/2 ML SDV IV PRN ×2 (00:53→09:13)
[2019-03-20] MEDS: HYDROMORPHONE HCL INJ/PF 2 MG/ML AMPULE IV PRN ×7 (00:53→21:09)
[2019-03-20] MEDS: HEPARIN SOD (PORCINE) 5,000 UNIT/ML 1 ML VIAL SUBCUT SCH ×3 (06:33→21:07)
[2019-03-20 06:47] LABS: ABSOLUTE RETICS # 0.087 10^6/uL (0.028-0.122); HEMATOCRIT 34.3 % (37.9-51.0); HEMOGLOBIN 10.9 g/dL (13.5-17.0); MEAN CORPUSCULAR HEMOGLOBIN 21.4 pg (27.0-33.4); MEAN CORPUSCULAR HGB CONC 31.7 g/dL (32.0-36.0); MEAN CORPUSCULAR VOLUME 68 fl (80-97); PLATELET COUNT 559 10^3/uL (150-450); RED BLOOD COUNT 5.06 10^6/uL (4.35-5.55); RETICULOCYTE COUNT (AUTO) 1.72 % (0.66-2.85); WHITE BLOOD COUNT 12.5 10^3/uL (4.0-10.5)
[2019-03-20 07:57] LABS: ABSOLUTE LYMPHOCYTES# (MANUAL) 4.3 10^3/uL (0.5-4.7); ABSOLUTE MONOCYTES # (MANUAL) 0.9 10^3/uL (0.1-1.4); BASOPHILS % (MANUAL) 3 % (0-2); EOSINOPHILS % (MANUAL) 6 % (0-6); LYMPHOCYTES % (MANUAL) 34 % (13-45); MONOCYTES % (MANUAL) 7 % (3-13); SEGMENTED NEUTROPHILS % (MAN) 50 % (42-78); TOTAL CELLS COUNTED 100
[2019-03-20 08:03] LABS: ANISOCYTOSIS 3+; HYPOCHROMASIA 1+; PLATELET COMMENT INCREASED; POLYCHROMASIA SLIGHT; SCHISTOCYTES 1+; TARGET CELLS SLIGHT
[2019-03-20 08:32] LABS: ANION GAP 8 (5-19); BLOOD UREA NITROGEN 5 mg/dL (7-20); CALCIUM 8.6 mg/dL (8.4-10.2); CARBON DIOXIDE 20 mmol/L (22-30); CHLORIDE 108 mmol/L (98-107); GLUCOSE 121 mg/dL (75-110); IRON(TIBC) 28.1 ug/dL (49-181); POTASSIUM 3.7 mmol/L (3.6-5.0)
[2019-03-20] MEDS: PANTOPRAZOLE SODIUM 40 MG VIAL IV SCH (09:13)
[2019-03-20 09:41] LABS: FOLATE 6.75 ng/mL (>2.76)
[2019-03-20 12:14] LABS: CHOLESTEROL 126.85 mg/dL (0-200); TRIGLYCERIDES 97 mg/dL (<150)
[2019-03-20] MEDS ORDERED: DULOXETINE HCL 30 MG CAPSULE.DR PO PRN (12:20)
[2019-03-20 12:26] LABS: DIRECT LDL 79 mg/dL (<100)
[2019-03-20] MEDS ORDERED: GLUCAGON,HUMAN RECOMB 1 MG INJ IM PRN (12:30)
[2019-03-20] MEDS ORDERED: DEXTROSE 50%-WATER 25 GM/50 ML DISP.SYRIN IV PRN ×2 (12:30)
[2019-03-20] MEDS ORDERED: DEXTROSE 40% GEL 15 GM TUBE PO PRN ×2 (12:30)
[2019-03-20] MEDS: OXYCODONE HCL IR 5 MG TABLET PO PRN ×3 (12:58→21:08)
[2019-03-20] MEDS: GABAPENTIN 400 MG CAPSULE PO SCH ×2 (13:55→21:08)
[2019-03-20] MEDS ORDERED: BUPRENORPHINE HCL 2 MG SUBLINGUAL TABLET SL SCH (14:00)
[2019-03-20] MEDS: NORMAL SALINE 1000 ML 1,000 ML IV PRN (15:11)
[2019-03-20] MEDS: INSULIN LISPRO 100 UNIT/ML 3 ML VIAL SUBCUT SCH ×2 (16:47→21:25)
--- NOTE | 2019-03-20 17:20 | PDOC PROGRESS REPORT ---
Subjective Progress Note for:: 03/20/19 Subjective:: This is a 54 yr old male with a past medical history of Crohn's disease, prior colectomy and has a colostomy who presented with abdominal pain and loose stools. He was found to be positive for GDH, C. difficile, negative toxin and positive PCR. He was also found to have an elevated lipase. He was made n.p.o. and was started on IV fluids. No acute event overnight. He does have watery stools noted on the colostomy bag. He says that his abdominal pain is actually localized around the stoma and does not radiate to the back. He also complains of some rectal pain. He says he wants to eat. Denies nausea or vomiting. Reason For Visit: C. DIFFICILE COLITIS, ACUTE PANCREATITIS Physical Exam Vital Signs: Temp Pulse Resp BP Pulse Ox 98.1 F 62 12 116/68 100 03/20/19 16:18 03/20/19 16:18 03/20/19 16:18 03/20/19 16:18 03/20/19 16:18 Intake & Output 03/19/19 03/20/19 03/21/19 06:59 06:59 06:59 Intake Total 1000 2254 1000 Output Total 1000 600 Balance 1000 1254 400 Weight 149 lb 4.047 oz 151 lb 7.321 oz General appearance: PRESENT: no acute distress, well-developed, well-nourished Head exam: PRESENT: atraumatic, normocephalic Eye exam: PRESENT: conjunctiva pink, EOMI, PERRLA. ABSENT: scleral icterus Ear exam: PRESENT: normal external ear exam Mouth exam: PRESENT: moist, tongue midline Neck exam: ABSENT: carotid bruit, JVD, lymphadenopathy, thyromegaly Respiratory exam: PRESENT: clear to auscultation [place]. ABSENT: rales, rhonchi, wheezes Cardiovascular exam: PRESENT: RRR. ABSENT: diastolic murmur, rubs, systolic murmur Pulses: PRESENT: normal dorsalis pedis pul GI/Abdominal exam: PRESENT: normal bowel sounds, soft, other - Noted watery stools per colostomy bag. ABSENT: distended, guarding, mass, organolmegaly, rebound, tenderness Rectal exam: PRESENT: deferred Neurological exam: PRESENT: alert, awake, oriented to person, oriented to place, oriented to time, oriented to situation, CN II-XII grossly intact. ABSENT: motor sensory deficit Results Laboratory Results: 03/20/19 06:22 03/20/19 07:56 03/20/19 03/20/19 03/20/19 06:22 06:22 07:56 WBC 12.5 H RBC 5.06 Hgb 10.9 L Hct 34.3 L MCV 68 L MCH 21.4 L MCHC 31.7 L RDW 22.0 H Plt Count 559 H Seg Neutrophils % Not Reportable Retic Count (auto) 1.72 Sodium Cancelled 135.9 L Potassium Cancelled 3.7 Chloride Cancelled 108 H Carbon Dioxide Cancelled 20 L Anion Gap Cancelled 8 BUN Cancelled 5 L Creatinine Cancelled 0.66 Est GFR ( Amer) Cancelled > 60 Est GFR (Non-Af Amer) Cancelled Glucose Cancelled 121 H Calcium Cancelled 8.6 Phosphorus Cancelled 4.0 Magnesium Cancelled 1.7 Iron Cancelled 28.1 L TIBC Cancelled 296 % Saturation Cancelled 9 Ferritin Cancelled 23.10 Triglycerides Cholesterol LDL Cholesterol Direct VLDL Cholesterol HDL Cholesterol Lipase Cancelled 57.0 Vitamin B12 Cancelled 494.0 Folate Cancelled 6.75 03/20/19 07:56 WBC RBC Hgb Hct MCV MCH MCHC RDW Plt Count Seg Neutrophils % Retic Count (auto) Sodium Potassium Chloride Carbon Dioxide Anion Gap BUN Creatinine Est GFR ( Amer) Est GFR (Non-Af Amer) Glucose Calcium Phosphorus Magnesium Iron TIBC % Saturation Ferritin Triglycerides 97 Cholesterol 126.85 LDL Cholesterol Direct 79 VLDL Cholesterol 19.0 HDL Cholesterol 34 L Lipase Vitamin B12 Folate Impressions: Abdomen/Pelvis CT 03/19/19 00:00 IMPRESSION: Redemonstrated transverse colon loop ostomy. No evidence of si gnificant parastomal hernia. No acute CT findings of the abdomen or pelvis to explain abdominal pain. Chest X-Ray 03/19/19 06:31 IMPRESSION: Clear lungs. Assessment and Plan - Diagnosis (1) Clostridium difficile colitis Is this a current diagnosis for this admission?: Yes Plan: PO vancomycin was discontinued. Patient is positive for GDH, negative for C. difficile A&B toxins and has a positive PCR testing. He does continue to have watery stools colostomy bag. Will restart patient on oral vancomycin. Will consult ID for further recommendations. (2) Abdominal pain Is this a current diagnosis for this admission?: Yes Plan: Patient was suspected to have pancreatitis initially. Lipase was elevated in the 400s but his abdominal pain is not characteristic of acute pancreatitis. CT of the abdomen and pelvis was also negative for acute pancreatitis. Lipase today is normal. Patient does not have acute pancreatitis. Will advance diet today. (3) Colostomy prolapse Is this a current diagnosis for this admission?: Yes Plan: Reducible. Evaluated by surgery. (4) Crohn's disease Qualifiers: Digestive disease complication type: other complication Is this a current diagnosis for this admission?: Yes (5) Diabetes mellitus type 2 in nonobese Is this a current diagnosis for this admission?: Yes - Time Time Spent with patient: 25-34 minutes
[2019-03-20] MEDS ORDERED: GABAPENTIN 400 MG CAPSULE PO SCH ×2 (18:00)
[2019-03-20] MEDS: VANCOMYCIN HCL INJ 500 MG VIAL PO SCH ×2 (18:07→23:54)
[2019-03-20] MEDS: PREDNISONE 20 MG TABLET PO SCH (18:09)
[2019-03-20] MEDS: CELECOXIB 100 MG CAPSULE PO SCH (18:09)
[2019-03-20] MEDS ORDERED: DIPHENHYDRAMINE HCL 25 MG CAPSULE PO ONE (18:30)
[2019-03-20] MEDS ORDERED: SULFAMETHOXAZOLE/TRIMETHOPRIM 800-160 MG/20 ML UDCUP PO ONE (20:00)
[2019-03-21] MEDS: HYDROMORPHONE HCL INJ/PF 2 MG/ML AMPULE IV PRN ×5 (03:19→21:09)
[2019-03-21] MEDS: OXYCODONE HCL IR 5 MG TABLET PO PRN ×4 (03:19→18:05)
[2019-03-21 06:41] LABS: ABSOLUTE BASOPHILS # (AUTO) 0.2 10^3/uL (0.0-0.2); ABSOLUTE EOSINOPHILS # (AUTO) 0.1 10^3/uL (0.0-0.6); ABSOLUTE MONOCYTES (AUTO) 0.7 10^3/uL (0.1-1.4); ABSOLUTE NEUT (AUTO) 6.9 10^3/uL (1.7-8.2); BASOPHILS % (AUTO) 1.5 % (0-2); EOSINOPHILS % (AUTO) 0.5 % (0-6); HEMATOCRIT 34.1 % (37.9-51.0); HEMOGLOBIN 10.6 g/dL (13.5-17.0); LYMPHOCYTES % (AUTO) 28.2 % (13-45); MEAN CORPUSCULAR HEMOGLOBIN 21.3 pg (27.0-33.4); MEAN CORPUSCULAR HGB CONC 31.2 g/dL (32.0-36.0); MEAN CORPUSCULAR VOLUME 68 fl (80-97); MONOCYTES % (AUTO) 6.2 % (3-13); PLATELET COUNT 583 10^3/uL (150-450); RED BLOOD COUNT 4.99 10^6/uL (4.35-5.55); RED CELL DISTRIBUTION WIDTH 22.2 % (11.5-14.0); SEGMENTED NEUTROPHILS % (AUTO) 63.6 % (42-78); TOTAL CELLS COUNTED % (AUTO) 100 %; WHITE BLOOD COUNT 10.8 10^3/uL (4.0-10.5)
[2019-03-21] MEDS: VANCOMYCIN HCL INJ 500 MG VIAL PO SCH ×3 (06:42→17:10)
[2019-03-21] MEDS: HEPARIN SOD (PORCINE) 5,000 UNIT/ML 1 ML VIAL SUBCUT SCH ×3 (06:43→21:23)
[2019-03-21 06:59] LABS: ANION GAP 7 (5-19); BLOOD UREA NITROGEN 8 mg/dL (7-20); CARBON DIOXIDE 22 mmol/L (22-30); CHLORIDE 107 mmol/L (98-107); GLUCOSE 204 mg/dL (75-110); POTASSIUM 4.6 mmol/L (3.6-5.0)
[2019-03-21] MEDS: INSULIN LISPRO 100 UNIT/ML 3 ML VIAL SUBCUT SCH ×4 (07:53→21:25)
[2019-03-21] MEDS ORDERED: DIPHENHYDRAMINE HCL 25 MG CAPSULE PO ONE (09:00)
[2019-03-21] MEDS: PREDNISONE 20 MG TABLET PO SCH ×2 (09:06→17:09)
[2019-03-21] MEDS: GABAPENTIN 400 MG CAPSULE PO SCH ×2 (09:06→21:23)
[2019-03-21] MEDS: PANTOPRAZOLE SODIUM 40 MG VIAL IV SCH (09:07)
[2019-03-21] MEDS: CELECOXIB 100 MG CAPSULE PO SCH ×2 (09:07→17:09)
--- NOTE | 2019-03-21 09:15 | PDOC PROGRESS REPORT ---
Subjective Progress Note for:: 03/21/19 Subjective:: generalized pains and pains around colostomy when he strains Reason For Visit: C. DIFFICILE COLITIS, ACUTE PANCREATITIS Physical Exam Vital Signs: Temp Pulse Resp BP Pulse Ox 98.1 F 75 16 126/67 H 95 03/20/19 23:08 03/20/19 23:08 03/20/19 23:08 03/20/19 23:08 03/20/19 23:08 Intake & Output 03/20/19 03/21/19 03/22/19 06:59 06:59 06:59 Intake Total 2254 1480 Output Total 1000 1800 Balance 1254 -320 Weight 68.7 kg 68.7 kg Exam: Colostomy is partially prolapse, pink and easily reducible when he relaxes Abdomen is soft non tender Still has areas of mild inflammation perineal area Results Laboratory Results: 03/21/19 05:53 03/21/19 05:53 03/20/19 03/20/19 03/21/19 07:56 07:56 05:53 WBC 10.8 H RBC 4.99 Hgb 10.6 L Hct 34.1 L MCV 68 L MCH 21.3 L MCHC 31.2 L RDW 22.2 H Plt Count 583 H Seg Neutrophils % 63.6 Sodium 135.9 L Potassium 3.7 Chloride 108 H Carbon Dioxide 20 L Anion Gap 8 BUN 5 L Creatinine 0.66 Est GFR ( Amer) > 60 Glucose 121 H Calcium 8.6 Phosphorus 4.0 Magnesium 1.7 Iron 28.1 L TIBC 296 % Saturation 9 Ferritin 23.10 Triglycerides 97 Cholesterol 126.85 LDL Cholesterol Direct 79 VLDL Cholesterol 19.0 HDL Cholesterol 34 L Lipase 57.0 Vitamin B12 494.0 Folate 6.75 03/21/19 05:53 WBC RBC Hgb Hct MCV MCH MCHC RDW Plt Count Seg Neutrophils % Sodium 135.9 L Potassium 4.6 Chloride 107 Carbon Dioxide 22 Anion Gap 7 BUN 8 Creatinine 0.84 Est GFR ( Amer) > 60 Glucose 204 H Calcium 9.0 Phosphorus Magnesium Iron TIBC % Saturation Ferritin Triglycerides Cholesterol LDL Cholesterol Direct VLDL Cholesterol HDL Cholesterol Lipase Vitamin B12 Folate Impressions: Abdomen/Pelvis CT 03/19/19 00:00 IMPRESSION: Redemonstrated transverse colon loop ostomy. No evidence of significant parastomal hernia. No acute CT findings of the abdomen or pelvis to explain abdominal pain. Chest X-Ray 03/19/19 06:31 IMPRESSION: Clear lungs. Assessment & Plan - Diagnosis (1) Abdominal pain Is this a current diagnosis for this admission?: Yes (2) Acute pancreatitis Is this a current diagnosis for this admission?: Yes (3) Colostomy prolapse Is this a current diagnosis for this admission?: Yes (4) Crohn's disease Qualifiers: Digestive disease complication type: other complication Is this a current diagnosis for this admission?: Yes (5) Diabetes mellitus type 2 in nonobese Is this a current diagnosis for this admission?: Yes - Time Time Spent with patient: 15-24 minutes - Plan Summary Plan Summary: Patient is asking if colostomy can be reversed. I told him that he still has evidence of perineal lesions that reversing the dolostomy at this time is appropriate. Will likely have reactivation of perineal lesions once fecal contamination occurs with reversal of colostomy. He understands. There is no urgent need for surgical intervention of his partially prolapsing transverse loop colostomy. He agrees to be seen in the surgical clinic once discharge. Will need further evaluation on OPD basis Re: revision of colostomy. This was explained to the patient. Discussed above plans with Dr Austin. Patient is being treated for C Dif infection at this time. Will sign off. Call for other questions
[2019-03-21] MEDS: NORMAL SALINE 1000 ML 1,000 ML IV PRN (12:25)
--- NOTE | 2019-03-21 20:02 | Progress Note ---
Provider Note Provider Note: ID Consult - Brief Note Asked to review patient's chart. Pt not seen or examined. Mr Borges is a 53 [id number] with PMH including Crohn's disease s/p colostomy, hidradenitis, and s/p splenectomy. He presented on 03/19/19 with c/o abdominal pain and decreased PO intake. He denied fever or chills. In some initial notes, the patient appeared to deny change in stool output from his usual, but in another consultation note, the patient was noted to complain of liquid stools. Abdomen was noted to be soft with hypoactive BS and herniated but reproducible colostomy site with liquid stools in the bag. He is noted on later exams to have normoactive BS, watery stools in the bag, soft abdomen without tenderness, although the patient continued to have complaints of pain that he felt was localized around the stoma. Labs included elevated WBC count on admission, elevated plts. Lower bicarb than typical on chemistries, no real increase in SCr compared to prior values. CT scan of the abdomen/pelvis did not show any acute findings. C difficile testing with GDH/EIA was discordant, so reflex PCR was sent, which is positive, and pt is currently receiving PO vancomycin 125 mg q6h. Impression/Recommendations C difficile diarrhea is challenging to diagnose in a patient who has other potential reasons for diarrhea and inflammation. The currently widely available test for C difficile have limitations in terms of being either highly sensitive but not specific (PCR can detect mere colonization, in addition to true disease) or more specific but less sensitive (EIA could potentially miss true disease but less likely to have false positives). Pt had GDH screening test positive, EIA negative, and PCR positive. This combination of results could reflect colonization only, which is not uncommon in hospitalized patients. However, these results could potentially be compatible with true disease. Which it is depends upon clinical context (e.g. whether there was recent antibiotic exposure as a risk factor, whether diarrheal symptoms are not clearly attributable to underlying conditions such as IBD or, for example, in other patients tube feeds or laxatives, etc). There is no single right way to approach this. Considering the difficulty distinguishing CDI from IBD flares, the current approach might be reasonable - vancomycin 125 mg q6h PO for a total of 10 days to treat possible C difficile diarrhea (while he is also on steroids to treat flare of Crohn's?) However, if patient is stable, not very ill and his presenting features are better accounted for by an alternative diagnosis, another other option is to stop vancomycin and observe patient closely with plan to promptly restart CDI treatment if diarrhea, abdominal pain or other markers of inflammation reoccur or worsen. José Manuel Joy MD [facility], [facility] Infectious Diseases pager [phone]
[2019-03-22] MEDS: VANCOMYCIN HCL INJ 500 MG VIAL PO SCH ×4 (01:10→17:07)
[2019-03-22] MEDS: HYDROMORPHONE HCL INJ/PF 2 MG/ML AMPULE IV PRN ×3 (01:10→09:25)
[2019-03-22] MEDS: HEPARIN SOD (PORCINE) 5,000 UNIT/ML 1 ML VIAL SUBCUT SCH ×3 (05:04→22:10)
[2019-03-22] MEDS: OXYCODONE HCL IR 5 MG TABLET PO PRN ×4 (05:04→22:08)
[2019-03-22] MEDS: INSULIN LISPRO 100 UNIT/ML 3 ML VIAL SUBCUT SCH ×4 (07:09→22:04)
[2019-03-22 07:46] LABS: HEMATOCRIT 34.7 % (37.9-51.0); HEMOGLOBIN 10.7 g/dL (13.5-17.0); MEAN CORPUSCULAR HEMOGLOBIN 21.1 pg (27.0-33.4); MEAN CORPUSCULAR VOLUME 68 fl (80-97); PLATELET COUNT 589 10^3/uL (150-450); RED BLOOD COUNT 5.08 10^6/uL (4.35-5.55); RED CELL DISTRIBUTION WIDTH 22.7 % (11.5-14.0)
[2019-03-22 07:53] LABS: ANION GAP 9 (5-19); BLOOD UREA NITROGEN 12 mg/dL (7-20); CARBON DIOXIDE 25 mmol/L (22-30); CHLORIDE 103 mmol/L (98-107); GLUCOSE 160 mg/dL (75-110)
[2019-03-22 08:26] LABS: ABSOLUTE LYMPHOCYTES# (MANUAL) 6.9 10^3/uL (0.5-4.7); ABSOLUTE MONOCYTES # (MANUAL) 0.9 10^3/uL (0.1-1.4); BASOPHILS % (MANUAL) 0 % (0-2); EOSINOPHILS % (MANUAL) 1 % (0-6); LYMPHOCYTES % (MANUAL) 30 % (13-45); MONOCYTES % (MANUAL) 4 % (3-13); SEGMENTED NEUTROPHILS % (MAN) 65 % (42-78); TOTAL CELLS COUNTED 100
[2019-03-22 08:27] LABS: PLATELET COMMENT INCREASED
[2019-03-22 08:28] LABS: ANISOCYTOSIS 3+; POIKILOCYTOSIS 1+; TARGET CELLS 1+
[2019-03-22] MEDS: GABAPENTIN 400 MG CAPSULE PO SCH ×2 (09:23→22:04)
[2019-03-22] MEDS: PREDNISONE 20 MG TABLET PO SCH ×2 (09:24→17:05)
[2019-03-22] MEDS: CELECOXIB 100 MG CAPSULE PO SCH (09:24)
[2019-03-22] MEDS: PANTOPRAZOLE SODIUM 40 MG VIAL IV SCH (09:25)
[2019-03-22] MEDS: ONDANSETRON HCL INJ/PF 4 MG/2 ML SDV IV PRN (12:56)
[2019-03-22] MEDS: KETOROLAC TROMETHAMINE INJ/PF 30 MG/1 ML SDV IV PRN ×2 (14:15→20:17)
[2019-03-22] MEDS ORDERED: CELECOXIB 100 MG CAPSULE PO PRN (15:07)
--- NOTE | 2019-03-22 15:50 | PDOC PROGRESS REPORT ---
Subjective Progress Note for:: 03/22/19 Subjective:: This is a 54 yr old male with a past medical history of Crohn's disease, prior colectomy and has a colostomy who presented with abdominal pain and loose stools. He was found to be positive for GDH, C. difficile, negative toxin and positive PCR. He was also found to have an elevated lipase. He was made n.p.o. and was started on IV fluids. 03/21: He does have watery stools noted on the colostomy bag. He says that his abdominal pain is actually localized around the stoma and does not radiate to the back. He also complains of some rectal pain. He says he wants to eat. Denies nausea or vomiting. 03/22: No acute event overnight. Stools from the wound will be watery but has more particles in it compared to yesterday. His abdominal pain has also improved. He is tolerating diet well. No nausea or vomiting. Discussed in length with patient with her nurse at the bedside about all the diagnostic test, lab results, current management and plan of care and disposition. Patient complains of recurrence of abdominal pain and is asking for Dilaudid. Nurse reported patient verbalized "just keep me doped up". CT of the abdomen and pelvis to further assess any concerning cause of his abdominal pain but patient has refused procedure. Reason For Visit: C. DIFFICILE COLITIS, ACUTE PANCREATITIS Physical Exam Vital Signs: Temp Pulse Resp BP Pulse Ox 98.1 F 68 16 135/74 H 98 03/22/19 11:43 03/22/19 11:43 03/22/19 11:43 03/22/19 11:43 03/22/19 11:43 Intake & Output 03/21/19 03/22/19 03/23/19 06:59 06:59 06:59 Intake Total 1480 2540 600 Output Total 1800 3400 1000 Balance -320 -860 -400 Weight 151 lb 7.321 oz 148 lb 12.992 oz General appearance: PRESENT: no acute distress, well-developed, well-nourished Head exam: PRESENT: atraumatic, normocephalic Eye exam: PRESENT: conjunctiva pink, EOMI, PERRLA. ABSENT: scleral icterus Ear exam: PRESENT: normal external ear exam Mouth exam: PRESENT: moist, tongue midline Neck exam: ABSENT: carotid bruit, JVD, lymphadenopathy, thyromegaly Respiratory exam: PRESENT: accessory muscle use Cardiovascular exam: PRESENT: RRR. ABSENT: diastolic murmur, rubs, systolic murmur Pulses: PRESENT: normal dorsalis pedis pul GI/Abdominal exam: PRESENT: normal bowel sounds, soft. ABSENT: distended, guarding, mass, organolmegaly, rebound, tenderness Rectal exam: PRESENT: deferred Neurological exam: PRESENT: alert, awake, oriented to person, oriented to place, oriented to time, oriented to situation, CN II-XII grossly intact. ABSENT: motor sensory deficit Results Laboratory Results: 03/22/19 07:20 03/22/19 07:20 03/22/19 03/22/19 07:20 07:20 WBC 23.0 H D RBC 5.08 Hgb 10.7 L Hct 34.7 L MCV 68 L MCH 21.1 L MCHC 31.0 L RDW 22.7 H Plt Count 589 H Seg Neutrophils % Not Reportable Sodium 137.4 Potassium 4.0 Chloride 103 Carbon Dioxide 25 Anion Gap 9 BUN 12 Creatinine 0.84 Est GFR ( Amer) > 60 Glucose 160 H Calcium 9.0 03/19/19 08:05 Stool - Stool - Final 03/19/19 08:05 Stool - Stool Stool Culture - Final NO SALMONELLA, SHIGELLA, CAMPYLOBACTER, OR E.COLI 0157 RECOVERED. NEGATIVE FOR SHIGA TOXINS 1&2. 03/19/19 08:05 Stool - Stool Ova and Parasite Concentrate Exam - Final 03/19/19 08:05 Stool - Stool Ova and Parasites - Final Impressions: Abdomen/Pelvis CT 03/19/19 00:00 IMPRESSION: Redemonstrated transverse colon loop ostomy. No evidence of significant parastomal hernia. No acute CT findings of the abdomen or pelvis to explain abdominal pain. Chest X-Ray 03/19/19 06:31 IMPRESSION: Clear lungs. Assessment and Plan - Diagnosis (1) Clostridium difficile colitis Is this a current diagnosis for this admission?: Yes Plan: 03/21: Patient is positive for GDH, negative for C. difficile A&B toxins and has a positive PCR testing. He does continue to have watery stools colostomy bag. Will restart patient on oral vancomycin. Will consult ID for further recommendations. 03/22: Continue PO vancomycin. Also discussed with patient about possibility of pursuing stool transplantation later if he continues to have recurrent C. difficile. (2) Abdominal pain Is this a current diagnosis for this admission?: Yes Plan: 03/21: Patient was suspected to have pancreatitis initially. Lipase was elevated in the 400s but his abdominal pain is not characteristic of acute pancreatitis. CT of the abdomen and pelvis was also negative for acute pancreatitis. Lipase today is normal. Patient does not have acute pancreatitis. Will advance diet today. 03/22: Improving. Tolerating diet well. (3) Colostomy prolapse Is this a current diagnosis for this admission?: Yes Plan: Reducible. Evaluated by surgery. He has been cleared by surgery and he will closely follow-up with him to consider reversal of colostomy. (4) Crohn's disease Qualifiers: Digestive disease complication type: other complication Is this a current diagnosis for this admission?: Yes (5) Diabetes mellitus type 2 in nonobese Is this a current diagnosis for this admission?: Yes - Time Time Spent with patient: 25-34 minutes
[2019-03-22] MEDS: NORMAL SALINE 1000 ML 1,000 ML IV PRN (15:58)
[2019-03-22] MEDS: VANCOMYCIN HCL INJ 500 MG VIAL PR SCH ×2 (17:12→23:38)
[2019-03-23] MEDS: VANCOMYCIN HCL INJ 500 MG VIAL PO SCH ×4 (00:07→18:14)
[2019-03-23] MEDS: OXYCODONE HCL IR 5 MG TABLET PO PRN ×4 (02:31→16:01)
[2019-03-23] MEDS: KETOROLAC TROMETHAMINE INJ/PF 30 MG/1 ML SDV IV PRN ×2 (02:31→08:53)
[2019-03-23] MEDS: VANCOMYCIN HCL INJ 500 MG VIAL PR SCH ×3 (06:10→17:08)
[2019-03-23] MEDS: HEPARIN SOD (PORCINE) 5,000 UNIT/ML 1 ML VIAL SUBCUT SCH ×2 (06:14→14:59)
[2019-03-23] MEDS: INSULIN LISPRO 100 UNIT/ML 3 ML VIAL SUBCUT SCH ×3 (08:47→17:07)
[2019-03-23] MEDS ORDERED: PANTOPRAZOLE SODIUM 40 MG TABLET.DR PO SCH (10:00)
[2019-03-23] MEDS: GABAPENTIN 400 MG CAPSULE PO SCH (10:36)
[2019-03-23] MEDS: PREDNISONE 20 MG TABLET PO SCH (10:37)
[2019-03-23 14:37] LABS: ABSOLUTE BASOPHILS # (AUTO) 0.2 10^3/uL (0.0-0.2); ABSOLUTE EOSINOPHILS # (AUTO) 0.2 10^3/uL (0.0-0.6); ABSOLUTE LYMPHOCYTES (AUTO) 3.7 10^3/uL (0.5-4.7); ABSOLUTE NEUT (AUTO) 14.2 10^3/uL (1.7-8.2); BASOPHILS % (AUTO) 0.8 % (0-2); HEMOGLOBIN 11.3 g/dL (13.5-17.0); LYMPHOCYTES % (AUTO) 19.2 % (13-45); MEAN CORPUSCULAR HEMOGLOBIN 21.4 pg (27.0-33.4); MEAN CORPUSCULAR HGB CONC 31.5 g/dL (32.0-36.0); MEAN CORPUSCULAR VOLUME 68 fl (80-97); MONOCYTES % (AUTO) 5.1 % (3-13); PLATELET COUNT 633 10^3/uL (150-450); RED BLOOD COUNT 5.29 10^6/uL (4.35-5.55); RED CELL DISTRIBUTION WIDTH 22.5 % (11.5-14.0); SEGMENTED NEUTROPHILS % (AUTO) 73.9 % (42-78); TOTAL CELLS COUNTED % (AUTO) 100 %; WHITE BLOOD COUNT 19.2 10^3/uL (4.0-10.5)
[2019-03-23 15:04] LABS: ANION GAP 11 (5-19); BLOOD UREA NITROGEN 13 mg/dL (7-20); CALCIUM 9.1 mg/dL (8.4-10.2); CARBON DIOXIDE 26 mmol/L (22-30); CHLORIDE 102 mmol/L (98-107); GLUCOSE 119 mg/dL (75-110); POTASSIUM 4.5 mmol/L (3.6-5.0)
--- NOTE | 2019-03-23 16:59 | RADIOLOGY REPORT (SQ) ---
EXAM DESCRIPTION: CT ABD/PELVIS NO ORAL OR IV COMPLETED DATE/TIME: 03/23/2019 4:22 pm REASON FOR STUDY: persistent abdominal and rectal discomfort COMPARISON: 03/19/2019 TECHNIQUE: CT scan of the abdomen and pelvis performed without intravenous or oral contrast. Images reviewed with lung, soft tissue, and bone windows. Reconstructed coronal and sagittal MPR images revi ewed. All images stored on PACS. All CT scanners at this facility use dose modulation, iterative reconstruction, and/or weight based d osing when appropriate to reduce radiation dose to as low as reasonably achievable (ALARA). [facility]: Dose Right [facility]: CareDose [facility]: Dose Right [facility]: Teradose 4D [facility]: Smart BuzzSpice RADIATION DOSE: CT Rad equipment meets quality standard of care and radiation dose reduction techniq ues were employed. CTDIvol: 5.6 mGy. DLP: 294 mGy-cm.mGy. LIMITATIONS: None. FINDINGS: LOWER CHEST: Mild ground-glass infiltrates in the middle lobe and lingula and to a lesser degree the upper aspect of the lower lobes. NON-CONTRASTED LIVER, SPLEEN, ADRENALS: No significant finding in the liver or adrenals. There appea rs to have been a splenectomy and there are some prominent splenules in the left upper quadrant. PANCREAS: No masses. No peripancreatic inflammatory changes. GALLBLADDER: No identified stones by CT criteria. No inflammatory changes to suggest cholecystitis. RIGHT KIDNEY AND URETER: No suspicious masses. Assessment limited by lack of IV contrast. No signif icant calcifications. No hydronephrosis or hydroureter. LEFT KIDNEY AND URETER: No suspicious masses. Assessment limited by lack of IV contrast. No signifi cant calcifications. No hydronephrosis or hydroureter. AORTA AND RETROPERITONEUM: No aneurysm. No retroperitoneal masses or adenopathy. BOWEL AND PERITONEAL CAVITY: There is a midline ostomy. There is no evidence of a parastomal hernia. APPENDIX: Not identified. PELVIS, BLADDER, AND ABDOMINAL WALL:No abnormal masses. No free fluid. Bladder normal. BONES: No significant findings. OTHER: No other significant finding. IMPRESSION: Midline ostomy with no parastomal hernia. Ground-glass infiltrates in the lungs. Nonsp ecific finding. May indicate mild interstitial edema or chronic interstitial changes. COMMENT: Quality ID # [id number]: Final reports with documentation of one or more dose reduction techniques (e.g., Automated exposure control, adjustment of the mA and/or kV according to patient size, use of iterative reconstruction technique) TECHNICAL DOCUMENTATION: JOB ID: [id number] [employer]- All Rights Reserved Reading location - IP/workstation name: [email or web address]
[2019-03-23] MEDS ORDERED: PREDNISONE 10 MG TABLET PO SCH (18:00)
[2019-03-23 18:06] VITALS: BP 116/76
--- NOTE | 2019-03-24 08:52 | PDOC DISCHARGE SUMMARY ---
General - Admit/Disc Date/PCP Admission Date/Primary Care Provider: 03/19/19 12:54 DELROY CROUCH, DO Discharge Date: 03/24/19 - Discharge Diagnosis (1) Clostridium difficile colitis Is this a current diagnosis for this admission?: Yes (2) Abdominal pain Is this a current diagnosis for this admission?: Yes (3) Colostomy prolapse Is this a current diagnosis for this admission?: Yes (4) Crohn's disease Is this a current diagnosis for this admission?: Yes (5) Diabetes mellitus type 2 in nonobese Is this a current diagnosis for this admission?: Yes - Additional Information Resuscitation Status: Full Code Discharge Diet: As Tolerated, Diabetic Discharge Activity: Activity As Tolerated, Balance Activity w/Rest Prescriptions: Acidoph/L.bulg/Bif.b/S.thermop [Bacid Caplet] 1 tab PO DAILY #10 tablet Prednisone [Deltasone 10 mg Tablet] 10 mg PO BID 5 Days #10 tablet Gabapentin [Neurontin 300 mg Capsule] 300 mg PO Q8 PRN #60 cap PRN Reason: For Pain Oxycodone HCl [Oxy-Ir 5 mg Tablet] 5 mg PO Q6HP PRN #20 PRN Reason: For Pain Vancomycin HCl [Vancocin HCl] 125 mg PO Q6H 8 Days #32 capsule Home Medications: Albuterol Sulfate [Albuterol Sulfate Hfa] 2 puff IH Q6HP PRN 03/19/19 Celecoxib [Celebrex 100 mg Capsule] 100 mg PO BID 03/19/19 Duloxetine HCl [Cymbalta] 60 mg PO BIDP PRN 03/19/19 Ondansetron HCl [Zofran 8 mg Tablet] 8 mg PO BIDP PRN 03/19/19 Acidoph/L.bulg/Bif.b/S.thermop [Bacid Caplet] 1 tab PO DAILY #10 tablet 03/23/19 Gabapentin [Neurontin 300 mg Capsule] 300 mg PO Q8 PRN #60 cap 03/23/19 Oxycodone HCl [Oxy-Ir 5 mg Tablet] 5 mg PO Q6HP PRN #20 03/23/19 Prednisone [Deltasone 10 mg Tablet] 10 mg PO BID 5 Days #10 tablet 03/23/19 Vancomycin HCl [Vancocin HCl] 125 mg PO Q6H 8 Days #32 capsule 03/23/19 History of Present Illness History of Present Illness: Admitting hospitalist's H&P: TIA VILLANUEVA is a 53 year old male who [facility] chief complaint of abdominal pain. He states that his testing to be protruding through his stoma into his ostomy bag and now feels like there is a constant sharp pinching pain that is nauseating. He denies vomiting. He has been unable to eat since yesterday afternoon. He states he seen normal looking stool in his ostomy earlier today without blood. He denies any fevers or chills. 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 Patient also has a history of Crohn's disease. Patient has been evaluated by the surgical group at [facility]. He had no treatment prior to arrival to the ER all oral intake been aggravating factor. Hospital Course Hospital Course: This is a 54 yr old male with a past medical history of Crohn's disease, prior colectomy and has a colostomy who presented with abdominal pain and loose stools. He was found to be positive for GDH, C. difficile, negative toxin and positive PCR. He was also found to have a slightly elevated lipase. He was made n.p.o. and was started on IV fluids. CT of the abdomen/pelvis was unremarkable. He was started on oral vancomycin. ID was also consulted. He was also started on oral prednisone for his Crohn's with subsequent elevation of WBC count after steroid initiation. 03/21: He does have watery stools noted on the colostomy bag. He says that his abdominal pain is actually localized around the stoma and does not radiate to the back. He also complains of some rectal pain. He says he wants to eat. Denies nausea or vomiting. 03/22: No acute event overnight. Stools from the wound will be watery but has more particles in it compared to yesterday. His abdominal pain has also improved. He is tolerating diet well. No nausea or vomiting. Discussed in length with patient with her nurse at the bedside about all the diagnostic test, lab results, current management and plan of care and disposition. Patient complains of recurrence of abdominal pain and is asking for Dilaudid. Nurse reported patient verbalized "just keep me doped up". CT of the abdomen and pelvis to further assess any concerning cause of his abdominal pain but p atient has initially refused procedure. He keeps on bringing up the issue about his colostomy being a problem for him and that he needs it reversed. He has been re-evaluated 3 times by surgery and plan of care was discussed that it is reducible and is not having any concerning issues at the moment. Surgery has recommended close outpatient follow-up with them and has cleared him for discharge. He did develop some itching after his oxycodone was resumed but he did not have any rash or SOB. He has complained he did not hear any recommendation from the surgeon when in fact I have witnessed myself the surgicalist discussing in length with him about their assessment and recommendations. 03/23: His diarrhea did significantly improve with oral vancomycin. He continues to complain of intermittent abdominal pain when awake after his dilaudid has been DCed but he has been asleep comfortably most of the time per nursing staff. A repeat CT of the abdomen/pelvis was repeated and pursued as he initially refused to be discharged insisting we are not addressing his abdominal pain, his colostomy and his C diff infection and repeat CT came back unremarkable. Patient will be discharged to complete 10 days of oral vancomycin and will closely follow up with surgery for re-evaluation of his colostomy and consideration of possible reversal later. He will also follow up with Dr. Montejo as he says he do es not want to see Dr. Potter anymore for his Crohn's. He will be discharged with home health services. Physical Exam Vital Signs: Temp Pulse Resp BP Pulse Ox 97.9 F 74 18 116/76 100 03/23/19 18:04 03/23/19 18:04 03/23/19 18:04 03/23/19 18:04 03/23/19 18:04 Intake & Output 03/23/19 03/24/19 03/25/19 06:59 06:59 06:59 Intake Total 2680 Output Total 2900 Balance -220 Weight 146 lb 2.664 oz General appearance: PRESENT: no acute distress, well-developed, well-nourished Head exam: PRESENT: atraumatic, normocephalic Eye exam: PRESENT: conjunctiva pink, EOMI, PERRLA. ABSENT: scleral icterus Ear exam: PRESENT: normal external ear exam Mouth exam: PRESENT: moist, tongue midline Neck exam: ABSENT: carotid bruit, JVD, lymphadenopathy, thyromegaly Respiratory exam: PRESENT: clear to auscultation [place]. ABSENT: rales, rhonchi, wheezes Cardiovascular exam: PRESENT: RRR. ABSENT: diastolic murmur, rubs, systolic murmur Pulses: PRESENT: normal dorsalis pedis pul GI/Abdominal exam: PRESENT: normal bowel sounds, soft. ABSENT: distended, guarding, mass, organolmegaly, rebound, tenderness Rectal exam: PRESENT: deferred Extremities exam: PRESENT: full ROM. ABSENT: calf tenderness, clubbing, pedal edema Neurological exam: PRESENT: alert, awake, oriented to person, oriented to place, oriented to time, oriented to situation, CN II-XII grossly intact. ABSENT: motor sensory deficit Results Laboratory Results: 03/23/19 14:07 03/23/19 14:07 03/23/19 03/23/19 14:07 14:07 WBC 19.2 H RBC 5.29 Hgb 11.3 L Hct 36.0 L MCV 68 L MCH 21.4 L MCHC 31.5 L RDW 22.5 H Plt Count 633 H Seg Neutrophils % 73.9 Sodium 138.8 Potassium 4.5 Chloride 102 Carbon Dioxide 26 Anion Gap 11 BUN 13 Creatinine 0.70 Est GFR ( Amer) > 60 Glucose 119 H Calcium 9.1 Impressions: Chest X-Ray 03/19/19 06:31 IMPRESSION: Clear lungs. Abdomen/Pelvis CT 03/23/19 06:00 IMPRESSION: Midline ostomy with no parastomal hernia. Ground-glass infiltrates in the lungs. Nonspecific finding. May indicate mild interstitial edema or chronic interstitial changes. Qualifiers - * PATIENT BEING DISCHARGED WITH ANY OF THE FOLLOWING DIAGNOSIS: No Acute Heart Failure - Is this a Heart Failure Patient?: No
== END 2019-03-23 18:30 | disposition home health service (06) | DRG 372 ==
LOC: ER 02:32 → EH 12:54 → 4S 15:44
PROVIDERS: ADMIT Internal Medicine; ATTEND Internal Medicine
DX: A04.72 Enterocolitis due to Clostridium difficile, not specified as recurrent (principal); K94.09 Other complications of colostomy; K50.90 Crohn's disease, unspecified, without complications; Y83.8 Other surgical procedures as the cause of abnormal reaction of the patient, or of later complication, without mention of misadventure at the time of the procedure; E11.9 Type 2 diabetes mellitus without complications; I10 Essential (primary) hypertension; R74.8 Abnormal levels of other serum enzymes; D72.829 Elevated white blood cell count, unspecified; G89.29 Other chronic pain; D64.9 Anemia, unspecified; M06.9 Rheumatoid arthritis, unspecified; F32.9 Major depressive disorder, single episode, unspecified; F17.210 Nicotine dependence, cigarettes, uncomplicated; I25.2 Old myocardial infarction; Z88.2 Allergy status to sulfonamides; Z88.8 Allergy status to other drugs, medicaments and biological substances; Z83.79 Family history of other diseases of the digestive system; Z90.49 Acquired absence of other specified parts of digestive tract
CPT/HCPCS: 36415; 71045; 74176; 74177; 80048; 80053; 80061; 81001; 82272; 82607; 82728; 82746; 82962; 83036; 83540; 83550; 83605; 83690; 83735; 84100; 85025; 85045; 85652; 86140; 87045; 87177; 87205; 87324; 87449; 87493; 89055; 96361; 96374; 96375; 96376; 99285; J1170; J1644; J1815; J1885; J2270; J2405; J3010; J3370; J3490; J7030; J7042; J7512; S0164

== ENCOUNTER 2019-03-24 12:35 | Emergency (ER) | payer MEDICARE, MEDICAID ==
[2019-03-24] MEDS ORDERED: ONDANSETRON HCL INJ/PF 4 MG/2 ML SDV IV ONE (12:57)
[2019-03-24] MEDS ORDERED: NORMAL SALINE 1000 ML 1,000 ML IV ONE (12:58)
[2019-03-24] MEDS ORDERED: MORPHINE SULFATE 10 MG/ML INJ IV ONE (12:58)
--- NOTE | 2019-03-24 13:01 | ER Document Report ---
ED Medical Screen (RME) - General Chief Complaint: Abdominal Pain Stated Complaint: DIZZINESS Time Seen by Provider: 03/24/19 12:40 Primary Care Provider: DELROY CROUCH DO [Primary Care Provider] - Follow up as needed Notes: Patient is a 53-year-old male whose presents to emergency department with a chief complaint of abdominal pain. Patient states he was discharged yesterday from this facility after being diagnosed and treated for C. difficile. Patient reports he does have a history of Crohn's and ostomy bag. Patient reports having a large amount of bowel hanging out into his bag. Patient reports this has been present since he was admitted to the hospital but appears to get worse and protrudes more when he gets up and walks. Patient complains of severe abdominal pain that is intermittent and feels like contractions. Patient also feels like he is having rectal spasming. Patient continues to complain of dizziness when he stands and the feeling of lightheadedness. Patient reports this was present throughout his whole stay in the hospital. Patient also reports a rash to his arms. Patient believes that this is from the vancomycin. Patient reports last dose of bank was at 6 AM this morning. TRAVEL OUTSIDE OF THE [place] IN LAST 30 DAYS: No - Related Data Allergies/Adverse Reactions: atropine Allergy (Verified 03/24/19 12:42) itching, "scratchy throat" diphenoxylate HCl [From Lomotil] Allergy (Verified 03/24/19 12:42) itching, hives erythromycin base [Erythromycin Base] Allergy (Verified 03/24/19 12:42) itching paroxetine HCl [From Paxil] Allergy (Verified 03/24/19 12:42) itching Sulfa (Sulfonamide Antibiotics) Allergy (Verified 03/24/19 12:42) Migraines, fatigue trimethoprim [From Bactrim] Allergy (Verified 03/24/19 12:42) itching, GI problems Past Medical History - Past Medical History Cardiac Medical History: Reports: Hx Heart Attack - NOVEMBER 2014, Hx Hypertension Denies: Hx Coronary Artery Disease Pulmonary Medical History: Reports: Hx Asthma, Hx Pneumonia Denies: Hx Bronchitis, Hx COPD Neurological Medical History: Reports: Hx Seizures - pt denies . Denies: Hx Cerebrovascular Accident Endocrine Medical History: Reports: Hx Diabetes Mellitus Type 2 Renal/ Medical History: Denies: Hx Peritoneal Dialysis GI Medical History: Reports: Hx Crohn's Disease Musculoskeltal Medical History: Reports Hx Arthritis - RA, chronic pain Psychiatric Medical History: Reports: Hx Depression Past Surgical History: Reports: Hx Colostomy - Loop transverse colostomy done prior to 2015,, Other - Multiple perineal wound debridements in MayJune 2018; Colonoscopy - Immunizations Immunizations up to date: Yes Hx Diphtheria, Pertussis, Tetanus Vaccination: No - Pt denies History of Influenza Vaccine for 04/2017 - 09/2017 Season: Unknown Influenza Administration Date for 04/2017 - 09/2017 Season: 09/08/17 Physical Exam - Vital signs Vitals: Temp Pulse Resp BP Pulse Ox 98.5 F 105 H 16 130/79 H 97 03/24/19 12:43 03/24/19 12:43 03/24/19 12:43 03/24/19 12:43 03/24/19 12:43 - Abdominal Notes: Patient does have a large amount of pink bowel that is visualized in his ostomy bag. There is a small amount of loose stool that is brown in color without noticeable blood. Patient's abdomen is soft. Course - Re-evaluation Re-evalutation: 03/24/19 13:01 I have greeted and performed a rapid initial assessment of this patient. A comprehensive ED assessment and evaluation of the patient, analysis of test results and completion of the medical decision making process will be conducted by additional ED providers. - Vital Signs Vital signs: Temp Pulse Resp BP Pulse Ox 98.5 F 105 H 16 130/79 H 97 03/24/19 12:43 03/24/19 12:43 03/24/19 12:43 03/24/19 12:43 03/24/19 12:43 Doctor's Discharge - Discharge Referrals: DELROY CROUCH DO [Primary Care Provider] - Follow up as needed
--- NOTE | 2019-03-24 14:11 | ER Document Report ---
Entered by ALEJANDRO GIPSON SCRIBE 03/24/19 [id number] Acting as scribe for:YUE BARKSDALE MD ED GI/ - General TRAVEL OUTSIDE OF THE [place] IN LAST 30 DAYS: No <YEU BARKSDALE - Last Filed: 03/24/19 16:33> <DOMINIC TORIBIO - Last Filed: 03/24/19 19:15> - General Chief Complaint: Abdominal Pain Stated Complaint: DIZZINESS Time Seen by Provider: 03/24/19 12:40 Primary Care Provider: DELROY CROUCH DO [Primary Care Provider] - Follow up as needed Notes: Patient is a 53-year-old male that presents to the emergency department today with complaints of continued chronic abdominal pain with associated lightheadedness and dizziness. Patient was discharged after an inpatient stay here at this facility yesterday. Patient states he was lightheaded and dizzy throughout his entire stay and it has continued since discharge. He is also complaining of a sore throat, and states he has been having hives on his upper extremities that come and go. During the patient's most recent admission, the patient's hernia was easily reducible when lying down and came back out when he would stand up. (YUE BARKSDALE) - Related Data Allergies/Adverse Reactions: atropine Allergy (Verified 03/24/19 12:42) itching, "scratchy throat" diphenoxylate HCl [From Lomotil] Allergy (Verified 03/24/19 12:42) itching, hives erythromycin base [Erythromycin Base] Allergy (Verified 03/24/19 12:42) itching paroxetine HCl [From Paxil] Allergy (Verified 03/24/19 12:42) itching Sulfa (Sulfonamide Antibiotics) Allergy (Verified 03/24/19 12:42) Migraines, fatigue trimethoprim [From Bactrim] Allergy (Verified 03/24/19 12:42) itching, GI problems Past Medical History - General Information source: Patient - Social History Smoking Status: Current Every Day Smoker Cigarette use (# per day): Yes Chew tobacco use (# tins/day): No Smoking Education Provided: No Frequency of alcohol use: None Drug Abuse: None Lives with: Family Family History: Reviewed & Not Pertinent, Other - Crohn's-sister Patient has suicidal ideation: No Patient has homicidal ideation: No - Past Medical History Cardiac Medical History: Reports: Hx Heart Attack - NOVEMBER 2014, Hx Hypertension Pulmonary Medical History: Reports: Hx Asthma, Hx Pneumonia Neurological Medical History: Reports: Hx Seizures - pt denies Endocrine Medical History: Reports: Hx Diabetes Mellitus Type 2 GI Medical History: Reports: Other - Perineal hidradenitis Musculoskeletal Medical History: Reports Hx Arthritis - RA, chronic pain Psychiatric Medical History: Reports: Hx Depression Past Surgical History: Reports: Hx Colostomy - Transverse loop colostomy 10/12/2014, Other - Multiple perineal wound debridements in MayJune 2018; Colonoscopy - Immunizations Immunizations up to date: Yes Hx Diphtheria, Pertussis, Tetanus Vaccination: No - Pt denies <YUE BARKSDALE - Last Filed: 03/24/19 16:33> Review of Systems - Review of Systems Constitutional: No symptoms reported EENT: No symptoms reported Cardiovascular: See HPI, Dizziness, Lightheaded Respiratory: No symptoms reported Gastrointestinal: See HPI, Abdominal pain Genitourinary: No symptoms reported Male Genitourinary: No symptoms reported Musculoskeletal: No symptoms reported Skin: No symptoms reported Hematologic/Lymphatic: No symptoms reported Neurological/Psychological: No symptoms reported -: Yes All other systems reviewed and negative <YUE BARKSDALE - Last Filed: 03/24/19 16:33> Physical Exam - Vital signs Interpretation: Normal <YUE BARKSDALE - Last Filed: 03/24/19 16:33> - Vital signs Vitals: Temp Pulse Resp BP Pulse Ox 98.5 F 105 H 16 130/79 H 97 03/24/19 12:43 03/24/19 12:43 03/24/19 12:43 03/24/19 12:43 03/24/19 12:43 - Notes Notes: Physical Exam: General: Alert. HEENT: Normocephalic. Atraumatic. Oropharynx clear. Posterior pharynx does not show any erythema or swelling. When trying to get patient to follow finger with his eyes, he closes them and yells out stating "it hurts". Patient stares straight ahead without moving eyes, uncooperative. Neck: Supple. Non-tender. Respiratory: No respiratory distress. Clear and equal breath sounds bilaterally. Cardiovascular: Regular rate and rhythm. Abdominal: Tightens abdomen, fighting reduction of the hernia. Screams of pain with light palpation. No distension. Normal Bowel Sounds. Back: No gross abnormalities. Extremities: Moves all four extremities. Upper extremities: Normal inspection. Normal ROM. Lower extremities: Normal inspection. No edema. Normal ROM. Neurological: Normal cognition. AAOx4. Normal speech. Psychological: Normal affect. Normal Mood. Skin: Warm. Dry. Normal color. Repeat exam done much later with the lights dimmed allowed me to determine that he probably has some mild lateral gaze nystagmus. At this time he was also eval uated by Dr. Rolon from general surgery who knows the patient well. He was able to easily reduce the colostomy tissue when he convinced the patient to stop resisting. (YUE BARKSDALE) Course - Laboratory Result Diagrams: 03/24/19 13:50 03/24/19 13:50 - Transfer of Care Care transferred to following provider: Dr. Toribio <YUE BARKSDALE - Last Filed: 03/24/19 16:33> - Laboratory Result Diagrams: 03/24/19 13:50 03/24/19 13:50 <DOMINIC TORIBIO - Last Filed: 03/24/19 19:15> - Vital Signs Vital signs: Temp Pulse Resp BP Pulse Ox 98.5 F 105 H 17 130/79 H 97 03/24/19 12:43 03/24/19 12:43 03/24/19 13:09 03/24/19 12:43 03/24/19 12:43 - Laboratory Laboratory results interpreted by me: 03/24/19 03/24/19 03/24/19 13:50 13:50 14:36 WBC 25.4 H Hgb 11.6 L Hct 36.2 L MCV 68 L MCH 21.7 L RDW 23.0 H Plt Count 620 H Seg Neuts % (Manual) 86 H Lymphocytes % (Manual) 10 L Abs Neuts (Manual) 21.8 H Sodium 135.9 L Glucose 307 H Alkaline Phosphatase 225 H Total Protein 8.3 H Urine Protein 100 H Urine Glucose (UA) 50 H - Transfer of Care Notes: 03/24/19 16:34 Patient is pending IV and oral contrast CT scan of the abdomen pelvis to exclude intra-abdominal pathology as the cause for his elevated white blood cell count. (YUE BARKSDALE) Discharge <YUE BARKSDALE - Last Filed: 03/24/19 16:33> <DOMINIC TORIBIO Shayy - Last Filed: 03/24/19 19:15> - Discharge Clinical Impression: Colostomy prolapse, Sore throat Leukocytosis Qualifiers: Leukocytosis type: unspecified Qualified Code(s): D72.829 - Elevated white blood cell count, unspecified Abdominal pain Qualifiers: Abdominal location: unspecified location Qualified Code(s): R10.9 - Unspecified abdominal pain Condition: Stable Disposition: HOME, SELF-CARE Instructions: Abdominal Pain ([facility]), Dizziness ([facility]) Additional Instructions: Follow-up with surgery and primary care on Tuesday. Return to the emergency department with worsening or new concerning symptoms. Referrals: DELROY CROUCH DO [Primary Care Provider] - Follow up as needed Scribe Attestation: 03/24/19 14:20 I personally performed the services described in the documentation, reviewed and edited the documentation which was dictated to the scribe in my presence, and it accurately records my words and actions. (YUE BARKSDALE) I personally performed the services described in the documentation, reviewed and edited the documentation which was dictated to the scribe in my presence, and it accurately records my words and actions.
[2019-03-24 14:23] LABS: ALBUMIN 4.1 g/dL (3.5-5.0); ALKALINE PHOSPHATASE 225 U/L (38-126); ANION GAP 14 (5-19); ASPARTATE AMINO TRANSFERASE 32 U/L (17-59); BILIRUBIN,DIRECT 0.3 mg/dL (0.0-0.4); BILIRUBIN,TOTAL 0.5 mg/dL (0.2-1.3); BLOOD UREA NITROGEN 17 mg/dL (7-20); CARBON DIOXIDE 23 mmol/L (22-30); CHLORIDE 99 mmol/L (98-107); GLUCOSE 307 mg/dL (75-110); POTASSIUM 4.2 mmol/L (3.6-5.0); TOTAL PROTEIN 8.3 g/dL (6.3-8.2)
[2019-03-24 14:24] LABS: HEMATOCRIT 36.2 % (37.9-51.0); HEMOGLOBIN 11.6 g/dL (13.5-17.0); MEAN CORPUSCULAR HEMOGLOBIN 21.7 pg (27.0-33.4); MEAN CORPUSCULAR HGB CONC 32.1 g/dL (32.0-36.0); MEAN CORPUSCULAR VOLUME 68 fl (80-97); PLATELET COUNT 620 10^3/uL (150-450); RED BLOOD COUNT 5.34 10^6/uL (4.35-5.55); WHITE BLOOD COUNT 25.4 10^3/uL (4.0-10.5)
[2019-03-24 14:58] LABS: ABSOLUTE LYMPHOCYTES# (MANUAL) 2.5 10^3/uL (0.5-4.7); BASOPHILS % (MANUAL) 0 % (0-2); EOSINOPHILS % (MANUAL) 0 % (0-6); HYPOCHROMASIA 2+; LYMPHOCYTES % (MANUAL) 10 % (13-45); MONOCYTES % (MANUAL) 4 % (3-13); SEGMENTED NEUTROPHILS % (MAN) 86 % (42-78); TOTAL CELLS COUNTED 100
[2019-03-24 14:59] LABS: ANISOCYTOSIS 3+; PLATELET COMMENT INCREASED; POIKILOCYTOSIS 1+; TARGET CELLS 1+
[2019-03-24 15:04] LABS: APPEARANCE,URINE CLEAR; BILIRUBIN,URINE NEGATIVE (NEGATIVE); CALCIUM OXALATE CRYSTALS,URINE RARE /HPF; COLOR,URINE YELLOW; GLUCOSE, URINE 50 mg/dL (NEGATIVE); KETONES,URINE NEGATIVE (NEGATIVE); LEUKOCYTE ESTERASE,URINE NEGATIVE (NEGATIVE); NITRITE,URINE NEGATIVE (NEGATIVE); PROTEIN,URINE 100 mg/dL (NEGATIVE); URINE SPECIFIC GRAVITY 1.018; UROBILINOGEN,URINE NEGATIVE mg/dL (<2.0)
[2019-03-24] MEDS ORDERED: MECLIZINE HCL 25 MG TABLET PO ONE (15:05)
--- NOTE | 2019-03-24 15:26 | PDOC CONSULTATION ---
Consultation Consult Date: 03/24/19 Attending physician:: YUE BARKSDALE Provider Consulted: WALDEMAR FLORES Consult reason:: Colostomy prolapse History of Present Illness Admission Date/PCP: DELROY CROUCH DO Patient complains of: Colostomy prolapsing; headaches; fainting episode History of Present Illness: TIA VILLANUEVA is a 53 year old male Presents emergency department second time in 2 days complaining of fainting, abdominal pain, perineal pain and colostomy prolapsing. Is well-[facility] to [facility]. He has a history of chronic hidradenitis suppurativa of the groins, perineum, and axilla, with multiple debridements. 4 years ago underwent diverting transverse colostomy in [place]. We do not have these records. Now being reevaluated in the emergency department for the above complaints. Past Medical History Cardiac Medical History: Reports: Myocardial Infarction - NOVEMBER 2014, Hypertension Denies: Coronary Artery Disease Pulmonary Medical History: Reports: Asthma, Pneumonia Denies: Bronchitis, Chronic Obstructive Pulmonary Disease (COPD) Neurological Medical History: Reports: Seizures - pt denies Endocrine Medical History: Reports: Diabetes Mellitus Type 2 GI Medical History: Reports: Crohn's Disease, Other - Perineal hidradenitis Musculoskeltal Medical History: Reports: Arthritis - RA, chronic pain Psychiatric Medical History: Reports: Depression Hematology: Reports: Anemia Past Surgical History Past Surgical History: Multiple debridements of soft tissue abscesses tracts of the axilla and groins and perineum. Past Surgical History: Reports: Colostomy - Transverse loop colostomy 10/12/2014, Other - Multiple perineal wound debridements in MayJune 2018; Colonoscopy Social History Lives with: Family Smoking Status: Current Every Day Smoker Frequency of Alcohol Use: Occasional Hx Recreational Drug Use: Yes Drugs: Marijuana Hx Prescription Drug Abuse: No Family History Family History: Reviewed & Not Pertinent, Other - Crohn's-sister Parental Family History Reviewed: No Children Family History Reviewed: No Sibling(s) Family History Reviewed.: No Medication/Allergy Home Medications: Albuterol Sulfate [Albuterol Sulfate Hfa] 2 puff IH Q6HP PRN 03/19/19 Celecoxib [Celebrex 100 mg Capsule] 100 mg PO BID 03/19/19 Duloxetine HCl [Cymbalta] 60 mg PO BIDP PRN 03/19/19 Ondansetron HCl [Zofran 8 mg Tablet] 8 mg PO BIDP PRN 03/19/19 Acidoph/L.bulg/Bif.b/S.thermop [Bacid Caplet] 1 tab PO DAILY #10 tablet 03/23/19 Gabapentin [Neurontin 300 mg Capsule] 300 mg PO Q8 PRN #60 cap 03/23/19 Oxycodone HCl [Oxy-Ir 5 mg Tablet] 5 mg PO Q6HP PRN #20 03/23/19 Prednisone [Deltasone 10 mg Tablet] 10 mg PO BID 5 Days #10 tablet 03/23/19 Vancomycin HCl [Vancocin HCl] 125 mg PO Q6H 8 Days #32 capsule 03/23/19 Allergies/Adverse Reactions: atropine Allergy (Verified 03/24/19 12:42) itching, "scratchy throat" diphenoxylate HCl [From Lomotil] Allergy (Verified 03/24/19 12:42) itching, hives erythromycin base [Erythromycin Base] Allergy (Verified 03/24/19 12:42) itching paroxetine HCl [From Paxil] Allergy (Verified 03/24/19 12:42) itching Sulfa (Sulfonamide Antibiotics) Allergy (Verified 03/24/19 12:42) Migraines, fatigue trimethoprim [From Bactrim] Allergy (Verified 03/24/19 12:42) itching, GI problems Review of Systems ROS unobtainable: Due to mental status, Other - Been unable to stay focused on topic and pain Physical Exam Vital Signs: Temp Pulse Resp BP Pulse Ox 98.5 F 105 H 17 130/79 H 97 03/24/19 12:43 03/24/19 12:43 03/24/19 13:09 03/24/19 12:43 03/24/19 12:43 General appearance: PRESENT: mild distress Mouth exam: PRESENT: dry mucosa Respiratory exam: PRESENT: rhonchi Cardiovascular exam: PRESENT: RRR GI/Abdominal exam: PRESENT: other - Colostomy viable, appliance in place. This appears to be a loop transverse colostomy with a soft stool emanating from the right proximal side and a extended mucous fistula on the left side. There is element of full-thickness prolapse which reduces easily Neurological exam: PRESENT: alert, awake Psychiatric exam: PRESENT: anxious Results Laboratory Results: 03/24/19 13:50 03/24/19 13:50 03/24/19 03/24/19 03/24/19 13:50 13:50 14:36 WBC 25.4 H RBC 5.34 Hgb 11.6 L Hct 36.2 L MCV 68 L MCH 21.7 L MCHC 32.1 RDW 23.0 H Plt Count 620 H Seg Neutrophils % Not Reportable Sodium 135.9 L Potassium 4.2 Chloride 99 Carbon Dioxide 23 Anion Gap 14 BUN 17 Creatinine 0.90 Est GFR ( Amer) > 60 Glucose 307 H Calcium 9.0 Total Bilirubin 0.5 AST 32 Alkaline Phosphatase 225 H Total Protein 8.3 H Albumin 4.1 Lipase 37.6 Urine Color YELLOW Urine Appearance CLEAR Urine pH 6.0 Ur Specific [place] 1.018 Urine Protein 100 H Urine Glucose (UA) 50 H Urine Ketones NEGATIVE Urine Blood NEGATIVE Urine Nitrite NEGATIVE Ur Leukocyte Esterase NEGATIVE Urine WBC (Auto) 3 Urine RBC (Auto) 1 Assessment & Plan - Diagnosis (1) Colostomy prolapse Is this a current diagnosis for this admission?: Yes Plan: Impression: No evidence of threatened bowel; colostomy prolapse chronic, reduced at bedside. Recommendations: 1. No indication for surgical intervention; attempted to educate patient on manually reducing prolapsing distal end of the transverse loop colostomy 2. Patient being evaluated for leukocytosis and sepsis; not related to colostomy 3. Consult surgery if clinically indicated.
--- NOTE | 2019-03-24 19:08 | RADIOLOGY REPORT (SQ) ---
EXAM DESCRIPTION: CT ABD/PELVIS ORAL ONLY COMPLETED DATE/TIME: 03/24/2019 6:42 pm REASON FOR STUDY: abd pain COMPARISON: 03/23/2019 TECHNIQUE: CT scan of the abdomen and pelvis performed with oral contrast and no intravenous contras t. Images reviewed with lung, soft tissue, and bone windows. Reconstructed coronal and sagittal MPR i mages reviewed. All images stored on PACS. All CT scanners at this facility use dose modulation, iterative reconstruction, and/or weight based d osing when appropriate to reduce radiation dose to as low as reasonably achievable (ALARA). [facility]: Dose Right [facility]: CareDose [facility]: Dose Right [facility]: Teradose 4D [facility]: Smart [employer] RADIATION DOSE: CT Rad equipment meets quality standard of care and radiation dose reduction techniq ues were employed. CTDIvol: 5.3 mGy. DLP: 271 mGy-cm.mGy. LIMITATIONS: None. FINDINGS: LOWER CHEST: Similar scattered ground-glass opacities bilaterally. NON-CONTRASTED LIVER, SPLEEN, ADRENALS: Evaluation limited by lack of IV contrast. No identified sign ificant masses. Prior splenectomy. PANCREAS: No masses. No peripancreatic inflammatory changes. GALLBLADDER: No identified stones by CT criteria. No inflammatory changes to suggest cholecystitis. RIGHT KIDNEY AND URETER: No solid masses. No significant calcification. No hydronephrosis or hydroure ter. LEFT KIDNEY AND URETER: No solid masses. No significant calcification. No hydronephrosis or hydrouret er. AORTA AND RETROPERITONEUM: No aneurysm. Similar mild retroperitoneal adenopathy. BOWEL AND PERITONEAL CAVITY: Similar appearance of the colostomy. No obvious masses or inflammatory changes. No free fluid. APPENDIX: Normal. PELVIS, BLADDER, AND ABDOMINAL WALL: No free fluid. Bladder unremarkable. BONES: No acute findings. OTHER: No other significant finding. IMPRESSION: NO SIGNIFICANT OR ACUTE ABDOMINAL PROCESS. TECHNICAL DOCUMENTATION: JOB ID: [id number] [id number] Quality ID # [id number]: Final reports with documentation of one or more dose reduction techniques (e.g., Au tomated exposure control, adjustment of the mA and/or kV according to patient size, use of iterative reconstruction technique) 2010 [employer]- All Rights Reserved Reading location - IP/workstation name: [email or web address]
[2019-03-24 19:25] VITALS: BP 151/85
== END 2019-03-24 20:16 | disposition home or self-care (01) ==
LOC: ER 12:35
DX: K94.09 Other complications of colostomy (principal); Y83.3 Surgical operation with formation of external stoma as the cause of abnormal reaction of the patient, or of later complication, without mention of misadventure at the time of the procedure; R42 Dizziness and giddiness; D72.829 Elevated white blood cell count, unspecified; J02.9 Acute pharyngitis, unspecified; R10.9 Unspecified abdominal pain; G89.29 Other chronic pain; I10 Essential (primary) hypertension; J45.909 Unspecified asthma, uncomplicated; E11.9 Type 2 diabetes mellitus without complications; F17.210 Nicotine dependence, cigarettes, uncomplicated; Z88.8 Allergy status to other drugs, medicaments and biological substances; Z88.1 Allergy status to other antibiotic agents; Z88.2 Allergy status to sulfonamides
CPT/HCPCS: 36415; 87040; 87070; 87880; 83690; 85025; 80053; 81001; 74176; A9270; J2270; J2405; J7030; 96374; 96375; 99284

== ENCOUNTER 2019-03-27 13:51 | Emergency (ER) | payer MEDICARE, MEDICAID ==
--- NOTE | 2019-03-27 14:15 | ER Document Report ---
ED Medical Screen (RME) - General Chief Complaint: Abdominal Pain Stated Complaint: STOMACH/BACK PAIN Time Seen by Provider: 03/27/19 14:09 Primary Care Provider: DELROY CROUCH DO [Primary Care Provider] - Follow up as needed Mode of Arrival: Wheelchair Information source: Patient Notes: Patient presents today with complaints of feeling lightheaded and stomach hurt ing. Patient has history of colostomy 3 years ago in [place]. Reports he has had problems since that time. Patient is taking vancomycin. Ports he is having liquid stools. Patient also talks about being on fourth floor and needing to take Benadryl. Has multiple complaints. I have greeted and performed a rapid initial assessment of this patient. A comprehensive ED assessment and evaluation of the patient, analysis of test results and completion of the medical decision making process will be conducted by additional ED providers. Dictation of this chart was performed using voice recognition software; therefore, there may be some unintended grammatical errors. TRAVEL OUTSIDE OF THE [place] IN LAST 30 DAYS: No - Related Data Allergies/Adverse Reactions: atropine Allergy (Verified 03/27/19 13:55) itching, "scratchy throat" diphenoxylate HCl [From Lomotil] Allergy (Verified 03/27/19 13:55) itching, hives erythromycin base [Erythromycin Base] Allergy (Verified 03/27/19 13:55) itching paroxetine HCl [From Paxil] Allergy (Verified 03/27/19 13:55) itching Sulfa (Sulfonamide Antibiotics) Allergy (Verified 03/27/19 13:55) Migraines, fatigue trimethoprim [From Bactrim] Allergy (Verified 03/27/19 13:55) itching, GI problems Past Medical History - Past Medical History Cardiac Medical History: Reports: Hx Heart Attack - NOVEMBER 2014, Hx Hypertension Denies: Hx Coronary Artery Disease Pulmonary Medical History: Reports: Hx Asthma, Hx Pneumonia Denies: Hx Bronchitis, Hx COPD Neurological Medical History: Reports: Hx Seizures - pt denies . Denies: Hx Cerebrovascular Accident Endocrine Medical History: Reports: Hx Diabetes Mellitus Type 2 Renal/ Medical History: Denies: Hx Peritoneal Dialysis GI Medical History: Reports: Hx Crohn's Disease Musculoskeltal Medical History: Reports Hx Arthritis - RA, chronic pain Psychiatric Medical History: Reports: Hx Depression Past Surgical History: Reports: Hx Colostomy - Transverse loop colostomy 10/12/2014, Other - Multiple perineal wound debridements in MayJune 2018; Colonoscopy - Immunizations Immunizations up to date: Yes Hx Diphtheria, Pertussis, Tetanus Vaccination: No - Pt denies History of Influenza Vaccine for 04/2017 - 09/2017 Season: Unknown Influenza Administration Date for 04/2017 - 09/2017 Season: 09/08/17 Physical Exam - Vital signs Vitals: Temp Pulse Resp BP Pulse Ox 98.5 F 99 18 134/93 H 98 03/27/19 13:58 03/27/19 13:58 03/27/19 13:58 03/27/19 13:58 03/27/19 13:58 Course - Vital Signs Vital signs: Temp Pulse Resp BP Pulse Ox 98.5 F 99 18 134/93 H 98 03/27/19 13:58 03/27/19 13:58 03/27/19 13:58 03/27/19 13:58 03/27/19 13:58 Doctor's Discharge - Discharge Referrals: DELROY CROUCH DO [Primary Care Provider] - Follow up as needed
[2019-03-27] MEDS ORDERED: RINGERS SOLUTION,LACTATED 1,000 ML IV ONE (14:42)
[2019-03-27 14:58] LABS: ABSOLUTE BASOPHILS # (AUTO) 0.3 10^3/uL (0.0-0.2); ABSOLUTE EOSINOPHILS # (AUTO) 0.5 10^3/uL (0.0-0.6); ABSOLUTE LYMPHOCYTES (AUTO) 6.4 10^3/uL (0.5-4.7); ABSOLUTE MONOCYTES (AUTO) 1.6 10^3/uL (0.1-1.4); ABSOLUTE NEUT (AUTO) 8.7 10^3/uL (1.7-8.2); BASOPHILS % (AUTO) 1.7 % (0-2); HEMATOCRIT 38.6 % (37.9-51.0); HEMOGLOBIN 12.3 g/dL (13.5-17.0); LYMPHOCYTES % (AUTO) 36.5 % (13-45); MEAN CORPUSCULAR HEMOGLOBIN 21.7 pg (27.0-33.4); MEAN CORPUSCULAR HGB CONC 31.9 g/dL (32.0-36.0); MEAN CORPUSCULAR VOLUME 68 fl (80-97); MONOCYTES % (AUTO) 9.1 % (3-13); PLATELET COUNT 608 10^3/uL (150-450); RED BLOOD COUNT 5.67 10^6/uL (4.35-5.55); RED CELL DISTRIBUTION WIDTH 22.5 % (11.5-14.0); SEGMENTED NEUTROPHILS % (AUTO) 49.7 % (42-78); TOTAL CELLS COUNTED % (AUTO) 100 %; WHITE BLOOD COUNT 17.5 10^3/uL (4.0-10.5)
[2019-03-27 15:16] LABS: ALBUMIN 4.2 g/dL (3.5-5.0); ALKALINE PHOSPHATASE 235 U/L (38-126); ANION GAP 11 (5-19); ASPARTATE AMINO TRANSFERASE 20 U/L (17-59); BILIRUBIN,DIRECT 0.2 mg/dL (0.0-0.4); BILIRUBIN,TOTAL 0.5 mg/dL (0.2-1.3); BLOOD UREA NITROGEN 15 mg/dL (7-20); CALCIUM 9.7 mg/dL (8.4-10.2); CARBON DIOXIDE 25 mmol/L (22-30); CHLORIDE 103 mmol/L (98-107); GLUCOSE 157 mg/dL (75-110); POTASSIUM 4.1 mmol/L (3.6-5.0); TOTAL PROTEIN 8.6 g/dL (6.3-8.2)
[2019-03-27] MEDS ORDERED: KETOROLAC TROMETHAMINE INJ/PF 30 MG/1 ML SDV IV ONE (15:18)
[2019-03-27 15:19] LABS: APPEARANCE,URINE SLIGHTLY-CLOUDY; BILIRUBIN,URINE NEGATIVE (NEGATIVE); COLOR,URINE DARK YELLOW; GLUCOSE, URINE NEGATIVE (NEGATIVE); KETONES,URINE NEGATIVE (NEGATIVE); LEUKOCYTE ESTERASE,URINE NEGATIVE (NEGATIVE); NITRITE,URINE NEGATIVE (NEGATIVE); PROTEIN,URINE 100 mg/dL (NEGATIVE); URINE SPECIFIC GRAVITY 1.027; UROBILINOGEN,URINE NEGATIVE mg/dL (<2.0)
--- NOTE | 2019-03-27 17:12 | RADIOLOGY REPORT (SQ) ---
EXAM DESCRIPTION: CT ABD/PELVIS NO ORAL OR IV COMPLETED DATE/TIME: 03/27/2019 4:58 pm REASON FOR STUDY: diffuse abd pain COMPARISON: 3 days prior. TECHNIQUE: CT scan of the abdomen and pelvis performed without intravenous or oral contrast. Images reviewed with lung, soft tissue, and bone windows. Reconstructed coronal and sagittal MPR images revi ewed. All images stored on PACS. All CT scanners at this facility use dose modulation, iterative reconstruction, and/or weight based d osing when appropriate to reduce radiation dose to as low as reasonably achievable (ALARA). [facility]: Dose Right [facility]: CareDose [facility]: Dose Right [facility]: Teradose 4D [facility]: Smart [employer] RADIATION DOSE: CT Rad equipment meets quality standard of care and radiation dose reduction techniq ues were employed. CTDIvol: 4.9 mGy. DLP: 301 mGy-cm.mGy. LIMITATIONS: None. FINDINGS: LOWER CHEST: No significant findings. No nodules or infiltrates. NON-CONTRASTED LIVER, SPLEEN, ADRENALS: Evaluation limited by lack of IV contrast. No identified sign ificant masses. PANCREAS: No masses. No peripancreatic inflammatory changes. GALLBLADDER: No identified stones by CT criteria. No inflammatory changes to suggest cholecystitis. RIGHT KIDNEY AND URETER: No suspicious masses. Assessment limited by lack of IV contrast. No signif icant calcifications. No hydronephrosis or hydroureter. LEFT KIDNEY AND URETER: No suspicious masses. Assessment limited by lack of IV contrast. No signifi cant calcifications. No hydronephrosis or hydroureter. AORTA AND RETROPERITONEUM: No aneurysm. No retroperitoneal masses or adenopathy. BOWEL AND PERITONEAL CAVITY: No obvious masses or inflammatory changes. No free fluid. APPENDIX: Not visualized. PELVIS, BLADDER, AND ABDOMINAL WALL:Transverse colostomy. No significant hernia. BONES: Nothing acute. OTHER: No other significant finding. IMPRESSION: Postoperative changes transverse colostomy. No acute findings. COMMENT: Quality ID # [id number]: Final reports with documentation of one or more dose reduction techniques (e.g., Automated exposure control, adjustment of the mA and/or kV according to patient size, use of iterative reconstruction technique) TECHNICAL DOCUMENTATION: JOB ID: [id number] [email or web address]- All Rights Reserved Reading location - IP[facility]workstation name: [email or web address]
--- NOTE | 2019-03-27 18:36 | EKG REPORT ---
SEVERITY:- ABNORMAL ECG - SINUS RHYTHM PROBABLE LEFT ATRIAL ABNORMALITY POOR R WAVE PROGRESSION ANTERIOR LEADS, CONSIDER OLD ANTERIOR MD. : Confirmed by: Librado Sampson MD 27-Mar-2019 18:36:21
--- NOTE | 2019-03-27 18:53 | ER Document Report ---
ED General - General Chief Complaint: Abdominal Pain Stated Complaint: STOMACH/BACK PAIN Time Seen by Provider: 03/27/19 14:09 Primary Care Provider: DELROY NAVARRETE DO [Primary Care Provider] - Follow up as needed Mode of Arrival: Ambulatory Information source: Patient TRAVEL OUTSIDE OF THE [place] IN LAST 30 DAYS: No - HPI Notes: Patient presents complaint of abdominal pain. He states he was recently diagnosed with C. difficile. He states his stools have been less watery and more formed however he still has abdominal pain. He states he is taking the vancomycin as instructed. He also states his been feeling dizzy. His abdominal pain is crampy and generalized. Nothing makes it better or worse. It does not radiate. It is moderate to severe in intensity. He states he is no problem with urination. He has some nausea but no vomiting. He states he did see his primary care doctor today, Dr. Navarrete. - Related Data Allergies/Adverse Reactions: atropine Allergy (Verified 03/27/19 13:55) itching, "scratchy throat" diphenoxylate HCl [From Lomotil] Allergy (Verified 03/27/19 13:55) itching, hives erythromycin base [Erythromycin Base] Allergy (Verified 03/27/19 13:55) itching paroxetine HCl [From Paxil] Allergy (Verified 03/27/19 13:55) itching Sulfa (Sulfonamide Antibiotics) Allergy (Verified 03/27/19 13:55) Migraines, fatigue trimethoprim [From Bactrim] Allergy (Verified 03/27/19 13:55) itching, GI problems Past Medical History - General Information source: Patient - Social History Smoking Status: Current Every Day Smoker Frequency of alcohol use: Occasional Drug Abuse: Marijuana Family History: Reviewed & Not Pertinent, Other - Crohn's-sister Patient has suicidal ideation: No Patient has homicidal ideation: No - Past Medical History Cardiac Medical History: Reports: Hx Heart Attack - NOVEMBER 2014, Hx Hypertension Denies: Hx Coronary Artery Disease Pulmonary Medical History: Reports: Hx Asthma, Hx Pneumonia Denies: Hx Bronchitis, Hx COPD Neurological Medical History: Reports: Hx Seizures - pt denies . Denies: Hx Cerebrovascular Accident Endocrine Medical History: Reports: Hx Diabetes Mellitus Type 2 Renal/ Medical History: Denies: Hx Peritoneal Dialysis GI Medical History: Reports: Hx Crohn's Disease Musculoskeletal Medical History: Reports Hx Arthritis - RA, chronic pain Psychiatric Medical History: Reports: Hx Depression Past Surgical History: Reports: Hx Colostomy - Transverse loop colostomy 10/12/2014, Other - Multiple perineal wound debridements in MayJune 2018; Colonoscopy - Immunizations Immunizations up to date: Yes Hx Diphtheria, Pertussis, Tetanus Vaccination: No - Pt denies Review of Systems - Review of Systems Constitutional: Malaise, Weakness. denies: Chills, Fever Cardiovascular: denies: Chest pain, Palpitations Respiratory: denies: Cough, Short of breath Gastrointestinal: Abdominal pain, Diarrhea -: Yes All other systems reviewed and negative Physical Exam - Vital signs Vitals: Temp Pulse Resp BP Pulse Ox 98.5 F 99 18 134/93 H 98 03/27/19 13:58 03/27/19 13:58 03/27/19 13:58 03/27/19 13:58 03/27/19 13:58 Interpretation: Normal - General General appearance: Appears well, Alert - HEENT Head: Normocephalic, Atraumatic Eyes: Normal Pupils: PERRL - Respiratory Respiratory status: No respiratory distress Chest status: Nontender Breath sounds: Normal Chest palpation: Normal - Cardiovascular Rhythm: Regular Heart sounds: Normal auscultation Murmur: No - Abdominal Inspection: Other - Patient has a colostomy with a prolapse of the distal portion. It is easily reducible. Distension: No distension Bowel sounds: Normal Tenderness: Tender - Abdomen is diffusely tender but there are no peritoneal signs. Organomegaly: No organomegaly - Back Back: Normal, Nontender - Extremities General upper extremity: Normal inspection, Nontender, Normal color, Normal ROM, Normal temperature General lower extremity: Normal inspection, Nontender, Normal color, Normal ROM, Normal temperature, Normal weight bearing. No: Kaylen's sign - Neurological Neuro grossly intact: Yes Cognition: Normal Orientation: AAOx4 [place] Coma Scale Eye Opening: Spontaneous [place]ien Coma Scale Verbal: Oriented [place]ien Coma Scale Motor: Obeys Commands [place] Coma Scale Total: 15 Speech: Normal Motor strength normal: LUE, RUE, LLE, RLE Sensory: Normal - Psychological Associated symptoms: Normal affect, Normal mood - Skin Skin Temperature: Warm Skin Moisture: Dry Skin Color: Normal Course - Re-evaluation Re-evalutation: 03/27/19 18:47 I reviewed patient's old records. Patient is currently resting comfortably in the room vital signs are unremarkable. Laboratories are also unremarkable. His white blood cell count is elevated but significantly less than it previously was just a few days ago. He is not having excess watery stool from the colostomy. The colostomy is reducible. He does not have surgical signs on his abdomen. I believe the patient is stable for discharge and can follow-up as an outpatient. He has not been hypotensive or tachycardic at any time. His lactate is stable. - Vital Signs Vital signs: Temp Pulse Resp BP Pulse Ox 98.5 F 99 15 139/85 H 96 03/27/19 13:58 03/27/19 13:58 03/27/19 18:01 03/27/19 18:00 03/27/19 18:01 - Laboratory Result Diagrams: 03/27/19 14:20 03/27/19 14:20 Laboratory results interpreted by me: 03/27/19 03/27/19 03/27/19 14:20 14:20 14:20 WBC 17.5 H RBC 5.67 H Hgb 12.3 L MCV 68 L MCH 21.7 L MCHC 31.9 L RDW 22.5 H Plt Count 608 H Absolute Neuts (auto) 8.7 H Absolute Lymphs (auto) 6.4 H Absolute Monos (auto) 1.6 H Absolute Basos (auto) 0.3 H Glucose 157 H Alkaline Phosphatase 235 H Total Protein 8.6 H Urine Protein 100 H Urine Blood SMALL H - Diagnostic Test Radiology reviewed: Image reviewed, Reports reviewed - EKG Interpretation by Me EKG shows normal: Sinus rhythm Rate: Normal - 98 Rhythm: NSR [place]/QRS: No: Right axis deviation, Left axis deviation Discharge - Discharge Clinical Impression: Colostomy prolapse Abdominal pain Qualifiers: Abdominal location: generalized Qualified Code(s): R10.84 - Generalized abdominal pain Condition: Stable Disposition: HOME, SELF-CARE Instructions: Abdominal Pain ([facility]), Oral Narcotic Medication ([facility]) Additional Instructions: Please call Dr. Navarrete in the morning to arrange follow-up Prescriptions: Oxycodone HCl/Acetaminophen [Percocet 10-325 Mg Tablet] 1 each PO Q8 PRN 3 Days #6 tablet PRN Reason: Referrals: DELROY NAVARRETE DO [Primary Care Provider] - Follow up tomorrow
[2019-03-27 19:21] VITALS: BP 132/89
== END 2019-03-27 19:24 | disposition home or self-care (01) ==
LOC: ER 13:51
DX: A04.72 Enterocolitis due to Clostridium difficile, not specified as recurrent (principal); K94.09 Other complications of colostomy; Y83.3 Surgical operation with formation of external stoma as the cause of abnormal reaction of the patient, or of later complication, without mention of misadventure at the time of the procedure; R10.84 Generalized abdominal pain; R10.817 Generalized abdominal tenderness; R42 Dizziness and giddiness; R11.0 Nausea; R53.81 Other malaise; R53.1 Weakness; I10 Essential (primary) hypertension; J45.909 Unspecified asthma, uncomplicated; E11.9 Type 2 diabetes mellitus without complications; F12.10 Cannabis abuse, uncomplicated; F17.200 Nicotine dependence, unspecified, uncomplicated; Z88.8 Allergy status to other drugs, medicaments and biological substances; Z88.1 Allergy status to other antibiotic agents; Z88.2 Allergy status to sulfonamides; Z83.79 Family history of other diseases of the digestive system
CPT/HCPCS: 93005; 36415; 87040; 87086; 85025; 80053; 81001; 84484; 83605; 74176; 93010; J1885; J7120; 96361; 96374; 99284

== ENCOUNTER 2019-04-03 10:52 | Emergency (ER) | payer MEDICARE, MEDICAID ==
--- NOTE | 2019-04-03 11:31 | ER Document Report ---
ED Medical Screen (RME) - General Chief Complaint: Abdominal Pain Stated Complaint: STOMACH PAIN Time Seen by Provider: 04/03/19 11:26 Primary Care Provider: DELROY CROUCH DO [Primary Care Provider] - Follow up as needed Mode of Arrival: Wheelchair Information source: Patient Notes: This 53-year-old male with history of Crohn's presents emergency department with complaints of abdominal pain and cough. Has had a colostomy since 2014 due to the Crohn's.. Reports of chronic stomach pain denies fever vomiting. Reports colostomy with inflammation that worsens when he coughs or sits down. I have greeted and performed a rapid initial assessment of this patient. A comprehensive ED assessment and evaluation of the patient, analysis of test results and completion of the medical decision making process will be conducted by additional ED providers. Dictation of this chart was performed using voice recognition software; therefore, there may be some unintended grammatical errors. TRAVEL OUTSIDE OF THE [place] IN LAST 30 DAYS: No - Related Data Allergies/Adverse Reactions: atropine Allergy (Verified 04/03/19 11:24) itching, "scratchy throat" diphenoxylate HCl [From Lomotil] Allergy (Verified 04/03/19 11:24) itching, hives erythromycin base [Erythromycin Base] Allergy (Verified 04/03/19 11:24) itching paroxetine HCl [From Paxil] Allergy (Verified 04/03/19 11:24) itching Sulfa (Sulfonamide Antibiotics) Allergy (Verified 04/03/19 11:24) Migraines, fatigue trimethoprim [From Bactrim] Allergy (Verified 04/03/19 11:24) itching, GI problems Past Medical History - Social History Chew tobacco use (# tins/day): No Frequency of alcohol use: None - Past Medical History Cardiac Medical History: Reports: Hx Heart Attack - NOVEMBER 2014, Hx Hypertension Denies: Hx Coronary Artery Disease Pulmonary Medical History: Reports: Hx Asthma, Hx Pneumonia Denies: Hx Bronchitis, Hx COPD Neurological Medical History: Reports: Hx Seizures - pt denies . Denies: Hx Cerebrovascular Accident Endocrine Medical History: Reports: Hx Diabetes Mellitus Type 2 Renal/ Medical History: Denies: Hx Peritoneal Dialysis GI Medical History: Reports: Hx Crohn's Disease Musculoskeltal Medical History: Reports Hx Arthritis - RA, chronic pain Psychiatric Medical History: Reports: Hx Depression Past Surgical History: Reports: Hx Colostomy - Transverse loop colostomy 10/12/2014, Other - Multiple perineal wound debridements in MayJune 2018; Colonoscopy - Immunizations Immunizations up to date: Yes Hx Diphtheria, Pertussis, Tetanus Vaccination: No - Pt denies History of Influenza Vaccine for 04/2017 - 09/2017 Season: Unknown Influenza Administration Date for 04/2017 - 09/2017 Season: 09/08/17 Physical Exam - Vital signs Vitals: Pulse Resp BP Pulse Ox 109 H 20 125/86 H 99 04/03/19 11:04 04/03/19 11:04 04/03/19 11:04 04/03/19 11:04 Course - Vital Signs Vital signs: Temp Pulse Resp BP Pulse Ox 109 H 20 125/86 H 99 04/03/19 11:04 04/03/19 11:04 04/03/19 11:04 04/03/19 11:04 Doctor's Discharge - Discharge Referrals: DELROY CROUCH DO [Primary Care Provider] - Follow up as needed
--- NOTE | 2019-04-03 12:39 | RADIOLOGY REPORT (SQ) ---
EXAM DESCRIPTION: CHEST 2 VIEWS COMPLETED DATE/TIME: 04/03/2019 12:31 pm REASON FOR STUDY: cough COMPARISON: 03/19/2019. EXAM PARAMETERS: NUMBER OF VIEWS: two views TECHNIQUE: Digital Frontal and Lateral radiographic views of the chest acquired. RADIATION DOSE: NA LIMITATIONS: none FINDINGS: LUNGS AND PLEURA: No opacities, masses or pneumothorax. No pleural effusion. MEDIASTINUM AND HILAR STRUCTURES: No masses or contour abnormalities. HEART AND VASCULAR STRUCTURES: Heart normal size. No evidence for failure. BONES: No acute findings. HARDWARE: None in the chest. OTHER: No other significant finding. IMPRESSION: NO ACUTE RADIOGRAPHIC FINDING IN THE CHEST. TECHNICAL DOCUMENTATION: JOB ID: [id number] [employer]- All Rights Reserved Reading location - IP/workstation name: [email or web address]
[2019-04-03 13:02] LABS: HEMATOCRIT 43.3 % (37.9-51.0); HEMOGLOBIN 13.4 g/dL (13.5-17.0); MEAN CORPUSCULAR HEMOGLOBIN 21.8 pg (27.0-33.4); MEAN CORPUSCULAR VOLUME 70 fl (80-97); PLATELET COUNT 538 10^3/uL (150-450); RED BLOOD COUNT 6.17 10^6/uL (4.35-5.55); RED CELL DISTRIBUTION WIDTH 23.4 % (11.5-14.0); WHITE BLOOD COUNT 23.9 10^3/uL (4.0-10.5)
[2019-04-03 13:20] LABS: APPEARANCE,URINE SLIGHTLY-CLOUDY; BILIRUBIN,URINE SMALL (NEGATIVE); GLUCOSE, URINE NEGATIVE (NEGATIVE); KETONES,URINE TRACE mg/dL (NEGATIVE); LEUKOCYTE ESTERASE,URINE NEGATIVE (NEGATIVE); NITRITE,URINE NEGATIVE (NEGATIVE); PROTEIN,URINE >=500 mg/dL (NEGATIVE); URINE SPECIFIC GRAVITY 1.032
[2019-04-03] MEDS ORDERED: HYDROMORPHONE HCL INJ/PF 2 MG/ML AMPULE IV ONE ×2 (13:22→14:52)
[2019-04-03] MEDS ORDERED: ONDANSETRON HCL INJ/PF 4 MG/2 ML SDV IV ONE (13:22)
[2019-04-03 13:23] LABS: COLOR,URINE YELLOW
[2019-04-03 13:25] LABS: ALBUMIN 4.5 g/dL (3.5-5.0); ALKALINE PHOSPHATASE 274 U/L (38-126); ANION GAP 11 (5-19); ASPARTATE AMINO TRANSFERASE 36 U/L (17-59); BILIRUBIN,DIRECT 0.3 mg/dL (0.0-0.4); BILIRUBIN,TOTAL 0.6 mg/dL (0.2-1.3); BLOOD UREA NITROGEN 14 mg/dL (7-20); CALCIUM 9.5 mg/dL (8.4-10.2); CARBON DIOXIDE 21 mmol/L (22-30); CHLORIDE 107 mmol/L (98-107); GLUCOSE 170 mg/dL (75-110); POTASSIUM 4.2 mmol/L (3.6-5.0); TOTAL PROTEIN 9.8 g/dL (6.3-8.2)
[2019-04-03 13:27] LABS: ABSOLUTE LYMPHOCYTES# (MANUAL) 7.4 10^3/uL (0.5-4.7); ABSOLUTE MONOCYTES # (MANUAL) 2.2 10^3/uL (0.1-1.4); BASOPHILS % (MANUAL) 1 % (0-2); EOSINOPHILS % (MANUAL) 2 % (0-6); LYMPHOCYTES % (MANUAL) 28 % (13-45); MONOCYTES % (MANUAL) 9 % (3-13); SEGMENTED NEUTROPHILS % (MAN) 57 % (42-78); TOTAL CELLS COUNTED 100
[2019-04-03 13:29] LABS: HYPOCHROMASIA 2+
[2019-04-03 13:30] LABS: ANISOCYTOSIS 1+; OVALOCYTES 1+
[2019-04-03 13:31] LABS: POIKILOCYTOSIS 1+; TARGET CELLS 1+
[2019-04-03 13:32] LABS: PLATELET COMMENT INCREASED
[2019-04-03 13:33] LABS: TOXIC VACUOLATION PRESENT
--- NOTE | 2019-04-03 13:41 | RADIOLOGY REPORT (SQ) ---
EXAM DESCRIPTION: CT ABD/PELVIS NO ORAL OR IV COMPLETED DATE/TIME: 04/03/2019 1:29 pm REASON FOR STUDY: abd pain COMPARISON: 03/27/2019, 03/24/2019, 03/23/2019, 03/19/2019 TECHNIQUE: CT scan of the abdomen and pelvis performed without intravenous or oral contrast. Images reviewed with lung, soft tissue, and bone windows. Reconstructed coronal and sagittal MPR images revi ewed. All images stored on PACS. All CT scanners at this facility use dose modulation, iterative reconstruction, and/or weight based d osing when appropriate to reduce radiation dose to as low as reasonably achievable (ALARA). [facility]: Dose Right [facility]: CareDose [facility]: Dose Right [facility]: Teradose 4D [facility]: Smart [employer] RADIATION DOSE: 301 mGy cm LIMITATIONS: None. FINDINGS: LOWER CHEST: Minimal scattered ground-glass opacities of the lung bases and lingula as wel l as mild mosaic attenuation of the air spaces, improved compared to prior examination. 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 PANCREAS: No masses. No peripancreatic inflammatory changes. GALLBLADDER: No identified stones by CT criteria. No inflammatory changes to suggest cholecystitis. RIGHT KIDNEY AND URETER: No suspicious masses. Assessment limited by lack of IV contrast. No signif icant calcifications. No hydronephrosis or hydroureter. LEFT KIDNEY AND URETER: No suspicious masses. Assessment limited by lack of IV contrast. No signifi cant calcifications. No hydronephrosis or hydroureter. AORTA AND RETROPERITONEUM: No aneurysm. No retroperitoneal masses or adenopathy. BOWEL AND PERITONEAL CAVITY: Redemonstrated postoperative findings of transverse loop colostomy. No evidence for obstruction or significant parastomal hernia. APPENDIX: Normal. PELVIS, BLADDER, AND ABDOMINAL WALL:No abnormal masses. No free fluid. Bladder normal. BONES: No significant findings. OTHER: No other significant finding. IMPRESSION: 1. Redemonstrated postoperative findings of transverse loop colostomy. No evidence for obstruction or significant parastomal hernia. No noncontrast CT findings of the abdomen or pelvis to explain acute abdominal pain. 2. Minimal scattered ground-glass opacities of the lung bases and lingula as well as mild mosaic atte nuation of the air spaces, improved compared to prior examination, findings consistent with improved infection or small airways disease. COMMENT: Quality ID # [id number]: Final reports with documentation of one or more dose reduction techniques (e.g., Automated exposure control, adjustment of the mA and/or kV according to patient size, use of iterative reconstruction technique) TECHNICAL DOCUMENTATION: JOB ID: [id number] [employer]- All Rights Reserved Reading location - IP/workstation name: [email or web address]
[2019-04-03 14:45] LABS: C DIFFICILE GDH NEGATIVE (NEGATIVE)
--- NOTE | 2019-04-03 15:49 | ER Document Report ---
ED General - General Chief Complaint: Abdominal Pain Stated Complaint: STOMACH PAIN Time Seen by Provider: 04/03/19 11:26 Primary Care Provider: DELROY NAVARRETE DO [Primary Care Provider] - Follow up as needed Mode of Arrival: Wheelchair Information source: Patient TRAVEL OUTSIDE OF THE [place] IN LAST 30 DAYS: No - HPI Notes: Patient comes in complaining of diffuse abdominal pain. He states it is severe and cramping. He states that it feels like his Crohn's pain except it is worse over the last couple of days. He states he received some Percocet here last time and they do not work. He states that he is not currently seeing a top tile decorator but that his primary is working on a referral. He states he just finished his antibiotics for C. difficile yesterday. He states he feels that the output out of his colostomy has increased and is more liquid. He denies fever or vomiting. Patient states nothing makes the pain better or worse. The pain does radiate to the lower back. He denies any dysuria urgency or frequency. - Related Data Allergies/Adverse Reactions: atropine Allergy (Verified 04/03/19 11:24) itching, "scratchy throat" diphenoxylate HCl [From Lomotil] Allergy (Verified 04/03/19 11:24) itching, hives erythromycin base [Erythromycin Base] Allergy (Verified 04/03/19 11:24) itching paroxetine HCl [From Paxil] Allergy (Verified 04/03/19 11:24) itching Sulfa (Sulfonamide Antibiotics) Allergy (Verified 04/03/19 11:24) Migraines, fatigue trimethoprim [From Bactrim] Allergy (Verified 04/03/19 11:24) itching, GI problems Past Medical History - General Information source: Patient - Social History Smoking Status: Current Every Day Smoker Chew tobacco use (# tins/day): No Frequency of alcohol use: None Drug Abuse: None Family History: Reviewed & Not Pertinent, Other - Crohn's-sister Patient has suicidal ideation: No Patient has homicidal ideation: No - Past Medical History Cardiac Medical History: Reports: Hx Heart Attack - NOVEMBER 2014, Hx Hypertension Denies: Hx Coronary Artery Disease Pulmonary Medical History: Reports: Hx Asthma, Hx Pneumonia Denies: Hx Bronchitis, Hx COPD Neurological Medical History: Reports: Hx Seizures - pt denies . Denies: Hx Cerebrovascular Accident Endocrine Medical History: Reports: Hx Diabetes Mellitus Type 2 Renal/ Medical History: Denies: Hx Peritoneal Dialysis GI Medical History: Reports: Hx Crohn's Disease Musculoskeletal Medical History: Reports Hx Arthritis - RA, chronic pain Psychiatric Medical History: Reports: Hx Depression Past Surgical History: Reports: Hx Colostomy - Transverse loop colostomy , Other - Multiple perineal wound debridements in MayJune 2018; Colonoscopy - Immunizations Immunizations up to date: Yes Hx Diphtheria, Pertussis, Tetanus Vaccination: No - Pt denies Review of Systems - Review of Systems Constitutional: Malaise, Weakness Cardiovascular: denies: Chest pain, Palpitations Respiratory: denies: Cough, Short of breath Gastrointestinal: Abdominal pain, Nausea -: Yes All other systems reviewed and negative Physical Exam - Vital signs Vitals: Pulse Resp BP Pulse Ox 109 H 20 125/86 H 99 04/03/19 11:04 04/03/19 11:04 04/03/19 11:04 04/03/19 11:04 Interpretation: Normal - General General appearance: Appears well, Alert - HEENT Head: Normocephalic, Atraumatic Eyes: Normal Pupils: PERRL - Respiratory Respiratory status: No respiratory distress Chest status: Nontender Breath sounds: Normal Chest palpation: Normal - Cardiovascular Rhythm: Tachycardia - Mild with heart rate of 103. Heart sounds: Normal auscultation Murmur: No - Abdominal Inspection: Other - Patient has colostomy with some liquid stool he has his chronic herniation present. Distension: No distension Bowel sounds: Normal Tenderness: Tender - Patient has diffuse tenderness to palpation with voluntary guarding. No surgical abdominal signs. Organomegaly: No organomegaly - Back Back: Normal, Nontender - Extremities General upper extremity: Normal inspection, Nontender, Normal color, Normal ROM, Normal temperature General lower extremity: Normal inspection, Nontender, Normal color, Normal ROM, Normal temperature, Normal weight bearing. No: Kaylen's sign - Neurological Neuro grossly intact: Yes Cognition: Normal Orientation: AAOx4 [place] Coma Scale Eye Opening: Spontaneous [place]ien Coma Scale Verbal: Oriented [place] Coma Scale Motor: Obeys Commands [place] Coma Scale Total: 15 Speech: Normal Motor strength normal: LUE, RUE, LLE, RLE Sensory: Normal - Psychological Associated symptoms: Normal affect, Normal mood - Skin Skin Temperature: Warm Skin Moisture: Dry Skin Color: Normal Course - Re-evaluation Re-evalutation: 04/03/19 15:47 Patient's CBC shows an elevated white blood cell count. However has been elevated in the past without any specific findings. Patient also has some white cells in his urine but his leukocyte Estrace and nitrite are negative in addition he has no dysuria urgency or frequency. Patient has no fever. He is mildly tachycardic but he always is. His CT shows no acute findings. His chemistries are unremarkable. I feel that patient possibly has an exacerbation of his Crohn's and would benefit from some better management of this. There is no top tile decorator admissions specialist today. Therefore I discussed transfer with the patient but he states he would not want to be transferred and would rather go home with some pain medication. He states he will work with his primary care physician to get into a top tile decorator. I I believe patient would best be served by being transferred to be evaluated and treated by top tile decorator however patient declines this option at this time. Patient is of sound mind and capable of making his own judgments. Patient states that he would rather try pain medication at home and finding the top tile decorator through his primary care physician. - Vital Signs Vital signs: Temp Pulse Resp BP Pulse Ox 109 H 20 125/86 H 99 04/03/19 11:04 04/03/19 11:04 04/03/19 11:04 04/03/19 11:04 - Laboratory Result Diagrams: 04/03/19 12:52 04/03/19 12:52 Laboratory results interpreted by me: 04/03/19 04/03/19 04/03/19 12:52 12:52 13:00 WBC 23.9 H RBC 6.17 H Hgb 13.4 L MCV 70 L MCH 21.8 L MCHC 31.0 L RDW 23.4 H Plt Count 538 H Abs Neuts (Manual) 13.6 H Abs Lymphs (Manual) 7.4 H Abs Monocytes (Manual) 2.2 H Carbon Dioxide 21 L Glucose 170 H Alkaline Phosphatase 274 H Total Protein 9.8 H Urine Protein >=500 H Urine Ketones TRACE H Urine Bilirubin SMALL H Urine Urobilinogen 2.0 H - Diagnostic Test Radiology reviewed: Image reviewed, Reports reviewed Discharge - Discharge Clinical Impression: Exacerbation of Crohn's disease Qualifiers: Digestive disease complication type: without complication Qualified Code(s): K50.90 - Crohn's disease, unspecified, without complications Condition: Good Disposition: HOME, SELF-CARE Instructions: Abdominal Pain ([facility]) Additional Instructions: Please call Dr. Navarrete as soon as possible to arrange for reevaluation and referral to gastroenterology Prescriptions: Oxycodone HCl [Oxycontin Ir 5 Mg Tablet] 1 - 2 mg PO Q4H PRN #15 tablet PRN Reason: For Pain Referrals: DELROY NAVARRETE DO [Primary Care Provider] - Follow up tomorrow
[2019-04-03 16:11] VITALS: BP 135/89
== END 2019-04-03 16:11 | disposition home or self-care (01) ==
LOC: ER 10:52
DX: K50.90 Crohn's disease, unspecified, without complications (principal); R10.84 Generalized abdominal pain; R53.81 Other malaise; R53.1 Weakness; R11.0 Nausea; R00.0 Tachycardia, unspecified; D72.829 Elevated white blood cell count, unspecified; F17.200 Nicotine dependence, unspecified, uncomplicated; I10 Essential (primary) hypertension; J45.909 Unspecified asthma, uncomplicated; E11.9 Type 2 diabetes mellitus without complications; Z88.8 Allergy status to other drugs, medicaments and biological substances; Z88.2 Allergy status to sulfonamides; Z88.1 Allergy status to other antibiotic agents; Z93.3 Colostomy status
CPT/HCPCS: 36415; 85025; 80053; 81001; 87324; 87449; 71046; 74176; J1170; J2405; 96374; 96375; 96376; 99284